=== PATIENT | female | born 1965 | race Caucasian/White ===

== ENCOUNTER → 2020-04-19 14:46 | Outpatient (BNVA) | payer MEDICARE, MEDICAID, SELFPAY | PROVIDERS: PCP Internal Medicine; Referring Provider Internal Medicine; Visit Provider Urology | DX: N30.10 Interstitial cystitis (chronic) without hematuria (principal) | CPT/HCPCS: 99212 ==

== ENCOUNTER 2020-04-30 06:26 | Day surgery (SDC) | payer MEDICARE, MEDICAID, SELFPAY ==
[2020-04-25 12:16] VITALS: BMI 15.7
[2020-04-25 12:50] VITALS: BMI 17.3
[2020-04-30 07:05] VITALS: BP 100/51; PULSE 64; RESP 20; TEMP 36.3; O2SAT 95
--- NOTE | 2020-04-30 07:27 | MHC.SHP ---
Pre-Procedural Eval Section B Chief Complaint: cystitis without hematuria Details of Present Illness: Interstital Cystitis Relevant Family History (Specify if Yes): No Relevant Social History: None Present Medications: see Short Stay Collaborative assessment Medical History: Significant History History of Previous Operations: Relevant previous surgery/procedure and date(s) Allergies: Allergies Allergy/AdvReac Type Severity Reaction Status Date / Time amoxicillin [From AUGMENTIN] Allergy Severe SEVERE Unverified 04/25/20 12:21 DIARRHEA clavulanic acid Allergy Severe SEVERE Unverified 04/25/20 12:21 [From AUGMENTIN] DIARRHEA Gzjunpu-Emv-Dsf Reductase Allergy Intermediate muscle Unverified 04/25/20 12:21 Inhibitor aches, [[id number]-BRG REDUCTASE cramps INHIBITOR] acetaminophen [ACETAMINOPHEN] AdvReac Severe GI upset. Unverified 02/29/20 14:52 Pt confirmed NOT allergic to oxycodone Review of Systems Sugical H&P ROS: Negative: Constitution, Cardiovascular, Respiratory, Neurological, Psychiatric, Hem-Onc, Allergic/Immunologic, Gastrointestinal, Genitourinary, Musculoskeletal, Integumentary, Endocrine and Eyes/Ears/Nose/Throat Exam Surgical H&P Exam: Normal: HEENT, Normal: Heart, Normal: Lungs, Normal: Extremities, Normal: Abdomen, Normal: Skin and Normal: Neurological Plan Diagnosis/Plan: Unchanged Patient has been examined and remains a candidate for the planned procedure
[2020-04-30] MEDS: levoFLOXacin 500 MG TABLET PO (07:38)
--- NOTE | 2020-04-30 08:51 | PM.OP ---
Brief Operative Note Date of Service: 04/30/20 Pre-op diagnosis: Interstitial cystitis Post-op diagnosis: same Procedure: hydrodistention Implants: known Surgeon: Mk Cornelius MD Anesthesia: GLMA Estimated blood loss (mL): 0 Pathology: none sent Condition: stable Disposition: same day
--- NOTE | 2020-04-30 08:52 | P.OP_ITS ---
Operative Note Operative Note Date of Service: 04/30/20 Narrative: PreOperative Diagnosis: interstitial cystitis Post Operative Diagnosis: interstitial cystitis Procedure: cystoscopy with hydrodistention Surgeon: Dr Mk Cornelius Anesthesia: general anesthetic Indications for procedure: this is a 55-year-old female. Known interstitial cystitis. Receives hydrodistention on a recurring basis. Is here for hydrodistention today. Procedure: After informed consent was verified the patient was brought to the operating room and placed in a supine position. anesthesia was administered per protocol. Patient was placed in modified dorsal lithotomy position and prepped and draped in sterile fashion. Safety pause time-out was performed. Antibiotics confirmed. Twenty-one Occitan cystoscope inserted per urethra. The bladder was filled. Was held and pressure with bag at 1 m for 3 minutes. The bladder was then emptied. The 2nd fill was performed. She was noted to have volume of 900 cc under anesthesia. Her bladder displayed marked collagen stiffness. There were also glomerulations and microscopic hematuria at completion of initial fill. After 2nd filling the bladder had local anesthetic placed to help with postprocedure pain relief She tolerated procedure well was extubated in the operating room transferred in stable condition the recovery area Pathology: None Drains: None
[2020-04-30 09:05] VITALS: BP 100/52; PULSE 64; RESP 14; TEMP 36.7; O2SAT 99
[2020-04-30 09:10] VITALS: BP 100/54; PULSE 66; RESP 16; O2SAT 97
[2020-04-30 09:15] VITALS: BP 95/49; PULSE 70; RESP 16; O2SAT 97
[2020-04-30 09:20] VITALS: BP 99/54; PULSE 71; RESP 16; O2SAT 97
[2020-04-30] MEDS: oxyCODONE HCl Immed Release 5 MG TABLET PO (09:28)
[2020-04-30] MEDS: Phenazopyridine HCL 100 MG TABLET PO (09:29)
[2020-04-30 09:35] VITALS: BP 111/68; PULSE 68; RESP 16; O2SAT 99
--- NOTE | 2020-04-30 10:47 | HO.POSTANES ---
Post Anesthesia Evaluation Post Anesthesia Evaluation Vital Signs: Vital Signs Temp Pulse Resp BP Pulse Ox 04/30/20 09:35 68 16 111/68 99 04/30/20 09:20 71 16 99/54 L 97 04/30/20 09:15 70 16 95/49 L 97 04/30/20 09:10 66 16 100/54 L 97 04/30/20 09:05 98.0 F 64 14 100/52 L 99 04/30/20 07:05 97.4 F 64 20 100/51 L 95 Anesthesia: General Mental Status: Awake Pain Control: Satisfactory Nausea/Vomiting: None Hydration: Adequate Anesthesia-Related Issues: No Anes. Related Issues
== END 2020-04-30 10:25 | disposition home or self-care (01) ==
PROVIDERS: PCP Internal Medicine; Visit Provider Urology
PROC: 0T7B7ZZ Dilation of Bladder, Via Natural or Artificial Opening (ICD-10-PCS; CPT 52260; principal; 2020-04-30 07:50)
DX: N30.10 Interstitial cystitis (chronic) without hematuria (principal); J45.909 Unspecified asthma, uncomplicated; F32.9 Major depressive disorder, single episode, unspecified; Z88.1 Allergy status to other antibiotic agents; Z88.8 Allergy status to other drugs, medicaments and biological substances
CPT/HCPCS: 52260; J1100; J2250; J2405; J3010

== ENCOUNTER → 2020-05-31 15:37 | Outpatient (BNVA) | payer MEDICARE, SELFPAY | PROVIDERS: PCP Emergency Medicine; Visit Provider Urology | DX: N30.10 Interstitial cystitis (chronic) without hematuria (principal) | CPT/HCPCS: Q3014 ==

== ENCOUNTER 2020-06-03 12:43 | Day surgery (SDC) | payer MEDICARE, MEDICAID, SELFPAY ==
[2020-05-31 13:51] VITALS: BMI 19.1
--- NOTE | 2020-05-31 14:34 | P.CONAN_ITS ---
Documented by User: Maureen Deb 05/31/20 14:36 HPI - Anesthesia Eval Consult details Narrative: 55yo F for Cystoscopy Hydrodistention of Bladder Last cysto, hydrodistention 04/25/20 with GA-LMA4 PMFSH Past Medical History Medical History (Updated 04/25/20 @ 12:58 by Matilda Aponte) Asthma Back pain Depression Elevated cholesterol History of anxiety History of gastrostomy tube placement Hx of cystitis Hx of ulcerative colitis Lab test negative for COVID-19 virus Surgical History Surgical History History of bladder surgery Social History Social History Are you a primary insurance healthcare consultant to a significant other at home: No Do you presently have visiting nurse or other home services: No Smoking Status: Unknown if ever smoked Use of substances other than those prescribed or required for medical reasons: No Advance Directives: No Advance Directives Information Provided: Yes Recently lost weight without trying: No Meds Allergies Allergy/AdvReac Type Severity Reaction Status Date / Time amoxicillin [From AUGMENTIN] Allergy Severe SEVERE Verified 06/03/20 12:57 DIARRHEA clavulanic acid Allergy Severe SEVERE Verified 06/03/20 12:57 [From AUGMENTIN] DIARRHEA oxycodone [From Percocet] Allergy Severe Diarrhea Verified 06/03/20 12:57 Izomybd-Eqq-Npz Reductase Allergy Intermediate muscle Verified 06/03/20 12:57 Inhibitor aches, [[id number]-[id number]-LZB REDUCTASE cramps INHIBITOR] acetaminophen [ACETAMINOPHEN] AdvReac Severe GI upset. Verified 06/03/20 12:57 Pt confirmed NOT allergic to oxycodone Home Medications Medication Instructions Recorded Confirmed Type Elmiron 100 mg PO QID 04/25/20 04/30/20 History albuterol sulfate [ProAir HFA] 2 puff INHALATION Q4-6H PRN 04/25/20 04/25/20 History carisoprodol 350 mg PO BID 04/25/20 04/25/20 History clonazepam 0.5 mg PO BID 04/25/20 04/30/20 History clonazepam 1 mg PO BEDTIME 04/25/20 04/25/20 History ezetimibe 10 mg PO QAM 04/25/20 04/25/20 History fluticasone propionate 1 puff INHALATION BID 04/25/20 04/25/20 History folic acid 1 mg PO DAILY 04/25/20 04/25/20 History loratadine 10 mg PO DAILY 04/25/20 04/25/20 History montelukast 10 mg PO QAM 04/25/20 04/30/20 History olanzapine 7.5 mg PO BEDTIME 04/25/20 04/25/20 History ondansetron HCl 8 mg PO QAM 04/25/20 04/25/20 History sertraline 150 mg PO QAM 04/25/20 04/30/20 History trazodone 300 mg PO BEDTIME 04/25/20 04/25/20 History Exam Exam Date and Time: May 31, 2020 1434 Height,Weight and Vital Signs: Height 5 ft 5 in Weight 52.163 kg Assessment and Plan Assessment Anesthesia Assessment: Chart Reviewed Documented by User: Stella Anderson 06/03/20 14:41 [facility] Past Medical History Medical History (Updated 04/25/20 @ 12:58 by Matilda Aponte) Asthma Back pain Depression Elevated cholesterol History of anxiety History of gastrostomy tube placement Hx of cystitis Hx of ulcerative colitis Lab test negative for COVID-19 virus Surgical History Surgical History History of bladder surgery Social History Social History Are you a primary insurance healthcare consultant to a significant other at home: No Do you presently have visiting nurse or other home services: No Smoking Status: Unknown if ever smoked Use of substances other than those prescribed or required for medical reasons: No Advance Directives: No Advance Directives Information Provided: Yes Recently lost weight without trying: No Meds Allergies Allergy/AdvReac Type Severity Reaction Status Date / Time amoxicillin [From AUGMENTIN] Allergy Severe SEVERE Verified 06/03/20 12:57 DIARRHEA clavulanic acid Allergy Severe SEVERE Verified 06/03/20 12:57 [From AUGMENTIN] DIARRHEA oxycodone [From Percocet] Allergy Severe Diarrhea Verified 06/03/20 12:57 Ymimhda-Taw-Ppv Reductase Allergy Intermediate muscle Verified 06/03/20 12:57 Inhibitor aches, [[id number] REDUCTASE cramps INHIBITOR] acetaminophen [ACETAMINOPHEN] AdvReac Severe GI upset. Verified 06/03/20 12:57 Pt confirmed NOT allergic to oxycodone Home Medications Medication Instructions Recorded Confirmed Type Elmiron 100 mg PO QID 04/25/20 04/30/20 History albuterol sulfate [ProAir HFA] 2 puff INHALATION Q4-6H PRN 04/25/20 04/25/20 History carisoprodol 350 mg PO BID 04/25/20 04/25/20 History clonazepam 0.5 mg PO BID 04/25/20 04/30/20 History clonazepam 1 mg PO BEDTIME 04/25/20 04/25/20 History ezetimibe 10 mg PO QAM 04/25/20 04/25/20 History fluticasone propionate 1 puff INHALATION BID 04/25/20 04/25/20 History folic acid 1 mg PO DAILY 04/25/20 04/25/20 History loratadine 10 mg PO DAILY 04/25/20 04/25/20 History montelukast 10 mg PO QAM 04/25/20 04/30/20 History olanzapine 7.5 mg PO BEDTIME 04/25/20 04/25/20 History ondansetron HCl 8 mg PO QAM 04/25/20 04/25/20 History sertraline 150 mg PO QAM 04/25/20 04/30/20 History trazodone 300 mg PO BEDTIME 04/25/20 04/25/20 History Exam Airway Mallampati Class: II (Missing multiple teth laterally) TM Dist: >3cm Neck ROM: Full Heart: RRr Lungs: CTA BL Assessment and Plan Assessment Anesthesia Assessment: Anesthesia Plan Discussed and Chart Reviewed Final Anesthetic Review NPO: Yes (Sip of water with medicines) ASA Class: II Final Preanesthetic Review: Meds/Allgs Chart Reviewed and Consent Obtained/Reviewed Patient Risk: Intermediate Procedure Risk: Intermediate Anesthetic Plan Anesthetic Plan: GA Disposition: Standard PACU
[2020-06-03] VITALS (7 sets, daily range): BP systolic 103–131; BP diastolic 41–65; PULSE 71–96; RESP 16–17; TEMP 36.1–36.2; O2SAT 98–100
[2020-06-03] MEDS: levoFLOXacin 500 MG TABLET PO (13:00)
[2020-06-03] MEDS: Lactated Ringers 1,000 ML 100 ML IVCONT (13:17)
--- NOTE | 2020-06-03 15:54 | MHC.SHP ---
Pre-Procedural Eval Section A The patient is an INPATIENT: No Changes since office visit: No Cold of Flu in the past 2 weeks, No New Medical Problems, No Changes in Medication and No Patient answered all questions The History & Physical has been completed within 30 days and I have reviewed it.: Yes Section B Chief Complaint: interstitial cystitis without hematuria Allergies: Allergies Allergy/AdvReac Type Severity Reaction Status Date / Time amoxicillin [From AUGMENTIN] Allergy Severe SEVERE Verified 06/03/20 12:57 DIARRHEA clavulanic acid Allergy Severe SEVERE Verified 06/03/20 12:57 [From AUGMENTIN] DIARRHEA oxycodone [From Percocet] Allergy Severe Diarrhea Verified 06/03/20 12:57 Rhnvglq-Asq-Qva Reductase Allergy Intermediate muscle Verified 06/03/20 12:57 Inhibitor aches, [[id number]-[id number] REDUCTASE cramps INHIBITOR] acetaminophen [ACETAMINOPHEN] AdvReac Severe GI upset. Verified 06/03/20 12:57 Pt confirmed NOT allergic to oxycodone Plan Diagnosis/Plan: Unchanged I have reviewed the history and physical and performed a pertinent physical examination on my patient. No changes have occurred unless specified. Cystoscopy, hydrodistention
--- NOTE | 2020-06-03 16:42 | PM.OP ---
Brief Operative Note Date of Service: 06/03/20 Pre-op diagnosis: Interstitial cystitis Post-op diagnosis: same Procedure: Hydrodistention of bladder Surgeon: Mk Cornelius MD Anesthesia: GLMA Estimated blood loss (mL): 0 Pathology: none sent Condition: stable Disposition: same day
--- NOTE | 2020-06-03 16:48 | P.OP_ITS ---
Operative Note Operative Note Date of Service: 06/03/20 Narrative: PreOperative Diagnosis: Interstitial cystitis Post Operative Diagnosis: Interstitial cystitis Procedure: Hydrodistention of bladder Surgeon: Dr Mk Cornelius Anesthesia: General anesthetic Indications for procedure: Long-term interstitial cystitis patient. Has hydrodistention performed on intermittent basis. Requested hydrodistention last week. Has been progressive pain. Was offered rescue solutions. In the past hydro distentions she states have worked for her and she would like this to occur. Procedure: After informed consent was verified the patient was brought to the operating room and placed in a supine position. Anesthesia was performed per protocol. The patient was placed in a modified dorsal lithotomy position and prepped draped sterile fashion. Safety pause time-out performed. Antibiotics being given. The bladder was emptied with a RobNel catheter. A solution of lidocaine jelly, lidocaine 2% and bupivacaine was placed into the bladder and dwelled for 3 minutes in order to assist with postprocedure pain. The 22 Macedonian cystoscope was placed in the bladder was filled. A finger was used to help keep closure on the bladder neck. The back was at approximately 1 m above patient. The bladder was held for 3 minutes. The bladder was emptied for a total of 950 cc. A 2nd filling was performed. This was again held for 3 minutes. The bladder was emptied for a total of approximately a 1000 cc. The remainder of the lidocaine jelly, lidocaine 2% bupivacaine solution was placed into the bladder. A belladonna and opiate suppository was also placed for postprocedure pain. She was extubated in the operating room transferred in stable condition to the recovery area Pathology: None Drains: None
[2020-06-03] MEDS: oxyCODONE HCl Immed Release 5 MG TABLET 10 MG PO (16:59)
== END 2020-06-03 17:50 | disposition home or self-care (01) ==
PROVIDERS: PCP Internal Medicine; Visit Provider Urology
PROC: 0T7B7ZZ Dilation of Bladder, Via Natural or Artificial Opening (ICD-10-PCS; CPT 52260; principal; 2020-06-03 14:40)
DX: N30.10 Interstitial cystitis (chronic) without hematuria (principal); J45.909 Unspecified asthma, uncomplicated; F32.9 Major depressive disorder, single episode, unspecified; Z79.899 Other long term (current) drug therapy; Z88.0 Allergy status to penicillin; Z88.8 Allergy status to other drugs, medicaments and biological substances
CPT/HCPCS: 52260; J1100; J2250; J2405; J3010

== ENCOUNTER → 2020-06-21 13:18 | Outpatient (BNVA) | payer MEDICARE, SELFPAY | PROVIDERS: PCP Internal Medicine; Visit Provider Urology | DX: Z76.89 Persons encountering health services in other specified circumstances (principal) ==

== ENCOUNTER 2020-07-22 08:55 | Day surgery (SDC) | payer MEDICARE, MEDICAID, SELFPAY ==
--- NOTE | 2020-07-18 12:29 | HO.ANESPROP2 ---
Documented by User: Maureen Deb 07/18/20 12:31 HPI - Anesthesia Eval Consult details Narrative: 55yo F for Cystoscopy Hydrodistention of Bladder last cysto-hydrodistention with GA-LMA 3 06/03/20 Chronic opioids PMFSH Past Medical History Medical History Asthma Back pain Depression Elevated cholesterol History of anxiety History of gastrostomy tube placement Hx of cystitis Hx of ulcerative colitis Lab test negative for COVID-19 virus Surgical History Surgical History History of bladder surgery Social History Social History Smoking Status: Current every day smoker Cigarettes Per Day: 6 Years Smoked: 20 Smoked in Last 30 Days: Yes Patient Interested in Nicotine Replacement: No Use of substances other than those prescribed or required for medical reasons: No Advance Directives: No Advance Directives Information Provided: Yes Recently lost weight without trying: No Meds Allergies Allergy/AdvReac Type Severity Reaction Status Date / Time amoxicillin [From AUGMENTIN] Allergy Severe SEVERE Verified 06/03/20 12:57 DIARRHEA clavulanic acid Allergy Severe SEVERE Verified 06/03/20 12:57 [From AUGMENTIN] DIARRHEA oxycodone [From Percocet] Allergy Severe Diarrhea Verified 06/03/20 12:57 Makukmr-Tld-Guk Reductase Allergy Intermediate muscle Verified 06/03/20 12:57 Inhibitor aches, [[id number]-ZTY REDUCTASE cramps INHIBITOR] acetaminophen [ACETAMINOPHEN] AdvReac Severe GI upset. Verified 06/03/20 12:57 Pt confirmed NOT allergic to oxycodone Home Medications Medication Instructions Recorded Confirmed Type Elmiron 100 mg PO QID 04/25/20 04/30/20 History albuterol sulfate [ProAir HFA] 2 puff INHALATION Q4-6H PRN 04/25/20 04/25/20 History carisoprodol 350 mg PO BID 04/25/20 04/25/20 History clonazepam 0.5 mg PO BID 04/25/20 04/30/20 History clonazepam 1 mg PO BEDTIME 04/25/20 04/25/20 History ezetimibe 10 mg PO QAM 04/25/20 04/25/20 History fluticasone propionate 1 puff INHALATION BID 04/25/20 04/25/20 History folic acid 1 mg PO DAILY 04/25/20 04/25/20 History loratadine 10 mg PO DAILY 04/25/20 04/25/20 History montelukast 10 mg PO QAM 04/25/20 04/30/20 History olanzapine 7.5 mg PO BEDTIME 04/25/20 04/25/20 History ondansetron HCl 8 mg PO QAM 04/25/20 04/25/20 History sertraline 150 mg PO QAM 04/25/20 04/30/20 History trazodone 300 mg PO BEDTIME 04/25/20 04/25/20 History adalimumab 40 mg/0.4 mL mg SUBCUT 06/21/20 History subcutaneous pen kit olanzapine 2.5 mg tablet mg PO 06/21/20 History olanzapine 5 mg tablet mg PO 06/21/20 History Exam Exam Date and Time: July 18, 2020 1229 Assessment and Plan Assessment Anesthesia Assessment: Chart Reviewed Documented by User: Betsy Machado 07/22/20 10:20 PMFSH Past Medical History Medical History Asthma Back pain Depression Elevated cholesterol History of anxiety History of gastrostomy tube placement Hx of cystitis Hx of ulcerative colitis Lab test negative for COVID-19 virus Surgical History Surgical History History of bladder surgery Social History Social History Smoking Status: Current every day smoker Cigarettes Per Day: 6 Years Smoked: 20 Smoked in Last 30 Days: Yes Patient Interested in Nicotine Replacement: No Use of substances other than those prescribed or required for medical reasons: No Advance Directives: No Advance Directives Information Provided: Yes Recently lost weight without trying: No Meds Allergies Allergy/AdvReac Type Severity Reaction Status Date / Time amoxicillin [From AUGMENTIN] Allergy Severe SEVERE Verified 06/03/20 12:57 DIARRHEA clavulanic acid Allergy Severe SEVERE Verified 06/03/20 12:57 [From AUGMENTIN] DIARRHEA oxycodone [From Percocet] Allergy Severe Diarrhea Verified 06/03/20 12:57 Deisnif-Pij-Plt Reductase Allergy Intermediate muscle Verified 06/03/20 12:57 Inhibitor aches, [REMYNWJ-OXO-YRE REDUCTASE cramps INHIBITOR] acetaminophen [ACETAMINOPHEN] AdvReac Severe GI upset. Verified 06/03/20 12:57 Pt confirmed NOT allergic to oxycodone Home Medications Medication Instructions Recorded Confirmed Type Elmiron 100 mg PO QID 04/25/20 04/30/20 History albuterol sulfate [ProAir HFA] 2 puff INHALATION Q4-6H PRN 04/25/20 04/25/20 History carisoprodol 350 mg PO BID 04/25/20 04/25/20 History clonazepam 0.5 mg PO BID 04/25/20 04/30/20 History clonazepam 1 mg PO BEDTIME 04/25/20 04/25/20 History ezetimibe 10 mg PO QAM 04/25/20 04/25/20 History fluticasone propionate 1 puff INHALATION BID 04/25/20 04/25/20 History folic acid 1 mg PO DAILY 04/25/20 04/25/20 History loratadine 10 mg PO DAILY 04/25/20 04/25/20 History montelukast 10 mg PO QAM 04/25/20 04/30/20 History olanzapine 7.5 mg PO BEDTIME 04/25/20 04/25/20 History ondansetron HCl 8 mg PO QAM 04/25/20 04/25/20 History sertraline 150 mg PO QAM 04/25/20 04/30/20 History trazodone 300 mg PO BEDTIME 04/25/20 04/25/20 History adalimumab 40 mg/0.4 mL mg SUBCUT 06/21/20 History subcutaneous pen kit olanzapine 2.5 mg tablet mg PO 06/21/20 History olanzapine 5 mg tablet mg PO 06/21/20 History Exam Airway Mallampati Class: II TM Dist: >3cm Neck ROM: Limited Assessment and Plan Assessment Anesthesia Assessment: Anesthesia Plan Discussed and Chart Reviewed Final Anesthetic Review NPO: Yes ASA Class: II Final Preanesthetic Review: No Changes in Pt Med Stat, Meds/Allgs Chart Reviewed, Consent Obtained/Reviewed and Anes Risks/Benef Reviewed Patient Risk: Low Procedure Risk: Low Assessment/Block/Sedation in SS: Assess/Block/Sedation-SS Anesthetic Plan Anesthetic Plan: MAC: Disposition: Standard PACU
[2020-07-22] MEDS: levoFLOXacin 500 MG TABLET PO (09:00)
[2020-07-22 09:41] VITALS: BP 104/56; PULSE 73; RESP 18; TEMP 36.9; O2SAT 99; BMI 21.6
[2020-07-22] MEDS: Lactated Ringers 1,000 ML 100 ML IVCONT (09:48)
--- NOTE | 2020-07-22 10:00 | P.HPSUR_ITS ---
Pre-Procedural Eval Section B Chief Complaint: cystitis Details of Present Illness: Interstitial cystitis - here for regular h ydrodistention Relevant Family History (Specify if Yes): No Relevant Social History: None Present Medications: see Short Stay Collaborative assessment Medical History: No relevant PMH History of Previous Operations: Relevant previous surgery/procedure and date(s) Allergies: Allergies Allergy/AdvReac Type Severity Reaction Status Date / Time amoxicillin [From AUGMENTIN] Allergy Severe SEVERE Verified 06/03/20 12:57 DIARRHEA clavulanic acid Allergy Severe SEVERE Verified 06/03/20 12:57 [From AUGMENTIN] DIARRHEA oxycodone [From Percocet] Allergy Severe Diarrhea Verified 06/03/20 12:57 Drcqdrj-Ksx-Rso Reductase Allergy Intermediate muscle Verified 06/03/20 12:57 Inhibitor aches, [[id number]-ZFJ-VZY REDUCTASE cramps INHIBITOR] acetaminophen [ACETAMINOPHEN] AdvReac Severe GI upset. Verified 06/03/20 12:57 Pt confirmed NOT allergic to oxycodone Review of Systems Sugical H&P ROS: Negative: Constitution, Cardiovascular, Respiratory, Neurological, Psychiatric, Hem-Onc, Allergic/Immunologic, Gastrointestinal, Genitourinary, Musculoskeletal, Integumentary, Endocrine and Eyes/Ears/Nose/Throat Exam Surgical H&P Exam: Normal: HEENT, Normal: Heart, Normal: Lungs, Normal: Extremities, Normal: Abdomen, Normal: Skin and Normal: Neurological Plan Diagnosis/Plan: Unchanged I have reviewed the history and physical and performed a pertinent physical examination on my patient. No changes have occurred unless specified. Cystoscopy with hydrodistention
[2020-07-22 10:46] VITALS: BP 98/55; PULSE 72; RESP 16; TEMP 36.5; O2SAT 98
[2020-07-22 11:00] VITALS: BP 116/63; PULSE 68; RESP 16; O2SAT 98
--- NOTE | 2020-07-22 11:12 | PM.OP ---
Brief Operative Note Date of Service: 07/22/20 Pre-op diagnosis: Interstitial cystitis Post-op diagnosis: same Procedure: Cystoscopy and Hydrodistention Surgeon: Mk Cornelius MD Anesthesia: MAC Estimated blood loss (mL): 0 Pathology: none sent Condition: stable Disposition: same day
--- NOTE | 2020-07-22 11:13 | W.PM.OPN ---
Operative Note Operative Note Date of Service: 07/22/20 Narrative: PreOperative Diagnosis: Interstitial cystitis Post Operative Diagnosis: Interstitial cystitis Procedure: Cystoscopy with hydrodistention Surgeon: Dr Mk Cornelius Anesthesia: Heavy sedation Indications for procedure: Longstanding interstitial cystitis Has good response to hydrodistention Presents today for repeat hydrodistention Procedure: After informed consent was verified the patient was brought to the operating room and placed in a supine position. anesthesia was administered per protocol. Her bladder was emptied with a straight catheter. 10 cc of lidocaine jelly with 10 cc of 0.5% bupivacaine were instilled for postprocedure pain management. She was prepped and draped in sterile fashion. Safety pause time-out was performed. Twenty-two Maltese cystoscope inserted. Bladder was examined. Bladder was filled and allowed to remain filled under pressure for 3-4 minutes. Total amount in 1st filling 900 cc. Total amount on 2nd filling 1000 cc. Her bladder was emptied. A 2nd administration of lidocaine jelly in bupivacaine was placed inside of bladder for postprocedure pain management. She tolerated procedure well was transferred in stable condition to the recovery area Pathology: Drains:
[2020-07-22 11:15] VITALS: BP 114/57; PULSE 66; RESP 16; O2SAT 98
[2020-07-22] MEDS: Phenazopyridine HCL 100 MG TABLET PO (11:20)
[2020-07-22] MEDS: oxyCODONE HCl Immed Release 5 MG TABLET 10 MG PO (11:20)
[2020-07-22 11:30] VITALS: BP 113/53; PULSE 68; RESP 16; TEMP 36.5; O2SAT 99
--- NOTE | 2020-07-22 12:34 | HO.POSTANES ---
Post Anesthesia Evaluation Post Anesthesia Evaluation Vital Signs: Vital Signs Temp Pulse Resp BP Pulse Ox 07/22/20 11:30 97.7 F 68 16 113/53 L 99 07/22/20 11:15 66 16 114/57 L 98 07/22/20 11:00 68 16 116/63 98 07/22/20 10:46 97.7 F 72 16 98/55 L 98 07/22/20 09:41 98.4 F 73 18 104/56 L 99 Anesthesia: Monitored Mental Status: Awake Pain Control: Satisfactory Nausea/Vomiting: None Hydration: Adequate Anesthesia-Related Issues: No Anes. Related Issues
== END 2020-07-22 12:10 | disposition home or self-care (01) ==
PROVIDERS: PCP Internal Medicine; Visit Provider Urology
PROC: 0T7B7ZZ Dilation of Bladder, Via Natural or Artificial Opening (ICD-10-PCS; CPT 52260; principal; 2020-07-22 10:20)
DX: N30.10 Interstitial cystitis (chronic) without hematuria (principal); Z88.0 Allergy status to penicillin; Z88.5 Allergy status to narcotic agent; Z88.8 Allergy status to other drugs, medicaments and biological substances
CPT/HCPCS: 52260; J2405; J3010

== ENCOUNTER 2020-10-08 12:02 | Emergency (ER) | payer OTHER, SELFPAY ==
[2020-10-08 12:07] VITALS: BP 122/64; PULSE 87; RESP 16; TEMP 36.6; O2SAT 98; BMI 27.4
[2020-10-08 13:00] LABS: MANUAL DIFF FLAG NO
[2020-10-08 13:08] LABS: Basophils Percent Auto 0.4 % (0-2); Eosinophils Absolute Auto 0.1 X10*3/uL (0.0-0.4); Eosinophils Percent Auto 0.9 % (0-4); Glucose Urine UA NEG (NEG); Hematocrit 36.3 % (37-47); Hemoglobin 11.5 g/dl (12.0-16.0); Imm Gran Abs Auto 0.02 X10*3/uL (0.00-0.03); Imm Gran Pct Auto 0.3 % (0.0-0.4); Leukocyte Esterase Urine TRACE (NEG); Lymphocytes Percent Auto 29.5 % (20-40); Mean Corpuscular HGB Conc 31.7 g/dl (31.0-35.0); Mean Corpuscular Hemoglobin 27.6 pg (27.0-33.0); Mean Corpuscular Volume 87.1 fL (80-98); Mean Platelet Volume 9.2 fL (9.4-12.3); Monocytes Absolute Auto 0.7 X10*3/uL (0.1-1.2); Monocytes Percent Auto 10.9 % (2-11); Neutrophils Absolute Auto 3.9 X10*3/uL (2.0-8.3); Nitrite Urine POS (NEG); PH 5.5 (5.0-8.0); Platelet Count 276 X10*3/uL (160-400); Red Blood Count 4.17 X10*6/uL (4.20-5.50); Red Cell Distribution Width 18.8 % (11.0-16.0); UACC Culture Trigger YES; Urine Blood NEG (NEG); Urine Ketones NEG (NEG); Urine Protein NEG (NEG-TRACE); White Blood Count 6.8 X10*3/uL (4.8-10.8)
[2020-10-08 13:10] LABS: Appearance Urine HAZY; Color Urine YELLOW
[2020-10-08 13:29] LABS: Anion Gap 12 (12-20); Blood Urea Nitrogen 12 mg/dL (9-16); Calcium 9.4 mg/dL (8.4-10.2); Carbon Dioxide 30 mmol/L (22-29); Chloride 100 mmol/L (96-108); Creatinine Clr Calc Pharmacy 77.5; Estimated Glomerular Filt Rate > 60; Glucose Random 75 mg/dL (60-115); Potassium 4.3 mmol/L (3.3-5.1); Sodium 138 mmol/L (135-145)
[2020-10-08 13:34] LABS: Bacteria Urine 1+ /LPF; RBC Urine 0 /HPF (0); Squamous Epithelial Cell Urine 2+ /LPF; WBC Urine 0-2 /HPF (0-4)
--- NOTE | 2020-10-08 14:00 | ED_ITS ---
HPI - General Adult General Chief complaint: Abdominal Pain Stated complaint: Bladder pain Time Seen by Provider: 10/08/20 12:32 History of Present Illness HPI narrative: Patient with long history of interstitial cystitis complains of renewed symptoms of irritable bladder, same as many prior episodes and tried to call her urologist to see if she could schedule a dilatation procedure, which she had done 2 months ago and has had done many times before. She says the procedure brought relief which lasted until recently but now the symptoms of frequent voiding and pain in the bladder area and discomfort with urination are back No fever no chills no abdominal pain no vomiting no flank pain no back pain Related Data Home Medications Medication Instructions Recorded Confirmed Elmiron 100 mg PO QID 04/25/20 04/30/20 albuterol sulfate [ProAir HFA] 2 puff INHALATION Q4-6H PRN 04/25/20 04/25/20 carisoprodol 350 mg PO BID 04/25/20 04/25/20 clonazepam 0.5 mg PO BID 04/25/20 04/30/20 clonazepam 1 mg PO BEDTIME 04/25/20 04/25/20 ezetimibe 10 mg PO QAM 04/25/20 04/25/20 fluticasone propionate 1 puff INHALATION BID 04/25/20 04/25/20 folic acid 1 mg PO DAILY 04/25/20 04/25/20 loratadine 10 mg PO DAILY 04/25/20 04/25/20 montelukast 10 mg PO QAM 04/25/20 04/30/20 olanzapine 7.5 mg PO BEDTIME 04/25/20 04/25/20 ondansetron HCl 8 mg PO QAM 04/25/20 04/25/20 sertraline 150 mg PO QAM 04/25/20 04/30/20 trazodone 300 mg PO BEDTIME 04/25/20 04/25/20 adalimumab 40 mg/0.4 mL mg SUBCUT 06/21/20 subcutaneous pen kit olanzapine 2.5 mg tablet mg PO 06/21/20 olanzapine 5 mg tablet mg PO 06/21/20 Previous Rx's Medication Instructions Recorded oxycodone 5 mg PO Q8H PRN #20 cap 04/30/20 diazepam 10 mg PO BEDTIME PRN 14 Days #14 12/21/20 tab oxycodone 5 mg PO Q8H PRN #20 tab 06/03/20 pentosan polysulfate sodium 100 mg 200 mg PO BID 30 Days #120 cap 06/26/20 capsule diazepam 10 mg PO BEDTIME PRN #10 tab 07/22/20 oxycodone 5 mg PO Q8H PRN #20 tab 07/22/20 phenazopyridine [Pyridium] 100 mg PO TID PRN 4 Days #12 tab 07/22/20 diazepam 10 mg tablet 10 mg PO BEDTIME PRN #7 tab 09/17/20 diazepam 10 mg tablet See Rx Instructions .ROUTE BEDTIME 10/08/20 30 Days #20 tab lorazepam [Ativan] 1 mg PO BID PRN #7 tab 10/08/20 morphine 15 mg PO Q6H PRN #10 tab 10/08/20 nitrofurantoin monohyd/m-cryst 100 mg PO Q12H 5 Days #10 cap 10/08/20 [Macrobid] nitrofurantoin monohyd/m-cryst 100 mg PO Q12H 5 Days #10 cap 10/08/20 [Macrobid] Allergies Allergy/AdvReac Type Severity Reaction Status Date / Time amoxicillin [From AUGMENTIN] Allergy Severe SEVERE Verified 06/03/20 12:57 DIARRHEA clavulanic acid Allergy Severe SEVERE Verified 06/03/20 12:57 [From AUGMENTIN] DIARRHEA oxycodone [From Percocet] Allergy Severe Diarrhea Verified 06/03/20 12:57 Ekcrgyc-Hxr-Kor Reductase Allergy Intermediate muscle Verified 06/03/20 12:57 Inhibitor aches, [[id number]-POM-AQO REDUCTASE cramps INHIBITOR] acetaminophen [ACETAMINOPHEN] AdvReac Severe GI upset. Verified 06/03/20 12:57 Pt confirmed NOT allergic to oxycodone Review of Systems Review of Systems: Positive for dysuria Negative no fever no chills no dizziness no weakness no fainting no dizziness no chest pain no shortness of breath no abdominal pain no flank pain no nausea or vomiting no rash Yes all other systems are reviewed and are negative PMFSH Past Medical History Source: nursing notes reviewed Medical History Asthma Back pain Depression Elevated cholesterol History of anxiety History of gastrostomy tube placement Hx of cystitis Hx of ulcerative colitis Lab test negative for COVID-19 virus Surgical History History of bladder surgery Social History Social History Smoking Status: Current every day smoker Cigarettes Per Day: 6 Years Smoked: 20 Advance Directives: No Advance Directives Information Provided: No Physical Exam Vital Signs: Vital Signs: Last Vital Signs Temp 98.6 F 10/08/20 14:58 Pulse 73 10/08/20 14:58 Resp 18 10/08/20 14:58 BP 107/63 10/08/20 14:58 Pulse Ox 100 10/08/20 14:58 Body Mass Index 27.4 General appearance is no acute distress, comfortable and cooperative The pharynx is clear, mucous membranes moist Neck is supple The chest is clear bilaterally, no respiratory distress The abdomen is soft and nontender no rebound no guarding There is no CVA tenderness Skin no rashes Extremities no edema Neuro no focal motor or sensory deficit Course Course Course Narrative: I texted urologist Dr. donald who knows patient well and said he thinks it is too soon for another procedure but he can follow with the patient UA showed a contaminated sample positive for nitrates, I offered to redo the specimen with better cleaning to get a more reliable specimen, patient did not want to do that now so she is given a prescription for antibiotic She is well-appearing no evidence of pyelonephritis or sepsis or any abdominal surgical emergency Repeat exam of the abdomen continues to be and nontender without rebound or guarding exam and patient is discharged with analgesics and will follow with urologist Medical Decision Making Lab Data Lab results reviewed: Yes I reviewed the patient's lab results. Result diagrams: 10/08/20 12:55 10/08/20 12:56 Labs: Lab Results 10/08/20 10/08/20 10/08/20 Range/Units 12:55 12:55 12:55 WBC 6.8 (4.8-10.8) X10*3/uL RBC 4.17 L (4.20-5.50) X10*6/uL Hgb 11.5 L (12.0-16.0) g/dl Hct 36.3 L (37-47) % MCV 87.1 (80-98) fL MCH 27.6 (27.0-33.0) pg MCHC 31.7 (31.0-35.0) g/dl RDW 18.8 H (11.0-16.0) % Plt Count 276 (160-400) X10*3/uL MPV 9.2 L (9.4-12.3) fL Immature Gran % (Auto) 0.3 (0.0-0.4) % Neut % (Auto) 58.0 (45-73) % Lymph % (Auto) 29.5 (20-40) % [place] % (Auto) 10.9 (2-11) % Eos % (Auto) 0.9 (0-4) % Baso % (Auto) 0.4 (0-2) % Lymph # (Auto) 2.0 (1.2-4.9) X10*3/uL [place] # (Auto) 0.7 (0.1-1.2) X10*3/uL Eos # (Auto) 0.1 (0.0-0.4) X10*3/uL Baso # (Auto) 0.0 (0.0-0.2) X10*3/uL Abs Immat Gran (auto) 0.02 (0.00-0.03) X10*3/uL Absolute Neuts (auto) 3.9 (2.0-8.3) X10*3/uL Absolute Nucleated RBC 0.000 (0.0-0.012) X10*3/uL Nucleated RBC % (auto) 0.0 (0.0-0.2) /100WBC Hold Blue Top SEE NOTE Sodium (135-145) mmol/L Potassium (3.3-5.1) mmol/L Chloride (96-108) mmol/L Carbon Dioxide (22-29) mmol/L Anion Gap (12-20) BUN (9-16) mg/dL Creatinine (0.5-1.4) mg/dL Estim Creat Clear Calc Estimated GFR Random Glucose (60-115) mg/dL Calcium (8.4-10.2) mg/dL Urine Color YELLOW Urine Appearance HAZY Urine pH 5.5 (5.0-8.0) Ur Specific [place] 1.010 (1.005-1.025) Urine Protein NEG (NEG-TRACE) MG/DL Urine Glucose (UA) NEG (NEG) MG/DL Urine Ketones NEG (NEG) MG/DL Urine Blood NEG (NEG) Urine Nitrite POS H (NEG) Ur Leukocyte Esterase TRACE H (NEG) Urine RBC 0 (0) /HPF Urine WBC 0-2 (0-4) /HPF Ur Squamous Epith Cells 2+ /LPF Urine Bacteria 1+ /LPF 10/08/20 Range/Units 12:56 WBC (4.8-10.8) X10*3/uL RBC (4.20-5.50) X10*6/uL Hgb (12.0-16.0) g/dl Hct (37-47) % MCV (80-98) fL MCH (27.0-33.0) pg MCHC (31.0-35.0) g/dl RDW (11.0-16.0) % Plt Count (160-400) X10*3/uL MPV (9.4-12.3) fL Immature Gran % (Auto) (0.0-0.4) % Neut % (Auto) (45-73) % Lymph % (Auto) (20-40) % [place] % (Auto) (2-11) % Eos % (Auto) (0-4) % Baso % (Auto) (0-2) % Lymph # (Auto) (1.2-4.9) X10*3/uL [place] # (Auto) (0.1-1.2) X10*3/uL Eos # (Auto) (0.0-0.4) X10*3/uL Baso # (Auto) (0.0-0.2) X10*3/uL Abs Immat Gran (auto) (0.00-0.03) X10*3/uL Absolute Neuts (auto) (2.0-8.3) X10*3/uL Absolute Nucleated RBC (0.0-0.012) X10*3/uL Nucleated RBC % (auto) (0.0-0.2) /100WBC Hold Blue Top Sodium 138 (135-145) mmol/L Potassium 4.3 (3.3-5.1) mmol/L Chloride 100 (96-108) mmol/L Carbon Dioxide 30 H (22-29) mmol/L Anion Gap 12 (12-20) BUN 12 (9-16) mg/dL Creatinine 0.80 (0.5-1.4) mg/dL Estim Creat Clear Calc 77.5 Estimated GFR > 60 Random Glucose 75 (60-115) mg/dL Calcium 9.4 (8.4-10.2) mg/dL Urine Color Urine Appearance Urine pH (5.0-8.0) Ur Specific [place] (1.005-1.025) Urine Protein (NEG-TRACE) MG/DL Urine Glucose (UA) (NEG) MG/DL Urine Ketones (NEG) MG/DL Urine Blood (NEG) Urine Nitrite (NEG) Ur Leukocyte Esterase (NEG) Urine RBC (0) /HPF Urine WBC (0-4) /HPF Ur Squamous Epith Cells /LPF Urine Bacteria /LPF Discharge Plan Discharge Clinical Impression: Interstitial cystitis Patient Disposition: Home, Self-Care Additional Instructions: Follow with urologist He texted me and said they will send in a prescription for vaginal Valium For discomfort I wrote a prescription for oral morphine and Ativan Urinalysis was contaminated but did show nitrites which means you may have a urinary tract infection so I wrote a prescription for Macrobid Return any time if worse Prescriptions: New nitrofurantoin monohyd/m-cryst [Macrobid] 100 mg capsule 100 mg PO Q12H 5 Days Qty: 10 RF: 0 nitrofurantoin monohyd/m-cryst [Macrobid] 100 mg capsule 100 mg PO Q12H 5 Days Qty: 10 RF: 0 lorazepam [Ativan] 1 mg tablet 1 mg PO BID PRN (Reason: anxiety) Qty: 7 RF: 0 morphine 15 mg tablet 15 mg PO Q6H PRN (Reason: pain) Qty: 10 RF: 0 No Action Elmiron 100 mg capsule 200 mg PO BID 30 Days Qty: 120 RF: 5 diazepam 10 mg tablet 10 mg PO BEDTIME PRN (Reason: sleep) Qty: 7 RF: 0 diazepam 10 mg tablet See Rx Instructions .ROUTE BEDTIME 30 Days Qty: 20 RF: 0 clonazepam 0.5 mg tablet 0.5 mg PO BID RF: 0 montelukast 10 mg tablet 10 mg PO QAM RF: 0 carisoprodol 350 mg tablet 350 mg PO BID RF: 0 clonazepam 0.5 mg Tablet 1 mg PO BEDTIME RF: 0 fluticasone propionate 110 mcg/actuation Hfa Aerosol Inhaler 1 puff INHALATION BID RF: 0 Elmiron 100 mg capsule 100 mg PO QID RF: 0 ondansetron HCl 8 mg tablet 8 mg PO QAM RF: 0 olanzapine 7.5 mg Tablet 7.5 mg PO BEDTIME RF: 0 trazodone 150 mg tablet 300 mg PO BEDTIME RF: 0 folic acid 1 mg Tablet 1 mg PO DAILY RF: 0 albuterol sulfate [ProAir HFA] 90 mcg/actuation Hfa Aerosol Inhaler 2 puff INHALATION Q4-6H PRN (Reason: Shortness Of Breath) RF: 0 loratadine 10 mg Tablet 10 mg PO DAILY RF: 0 ezetimibe 10 mg tablet 10 mg PO QAM RF: 0 sertraline 100 mg Tablet 150 mg PO QAM RF: 0 oxycodone 5 mg capsule 5 mg PO Q8H PRN (Reason: pain) Qty: 20 RF: 0 diazepam 10 mg tablet 10 mg PO BEDTIME PRN (Reason: pelvic floor spasm) 14 Days Qty: 14 RF: 0 oxycodone 5 mg tablet 5 mg PO Q8H PRN (Reason: pain) Qty: 20 RF: 0 phenazopyridine [Pyridium] 100 mg tablet 100 mg PO TID PRN (Reason: spasm) 4 Days Qty: 12 RF: 0 oxycodone 5 mg tablet 5 mg PO Q8H PRN (Reason: pain) Qty: 20 RF: 0 diazepam 10 mg tablet 10 mg PO BEDTIME PRN (Reason: muscle spasm) Qty: 10 RF: 0 Interventions: ED Discharge Assessment Last Done: 10/08/20 14:59 Discharge Date/Time: 10/08/20 14:59
[2020-10-08] MEDS: Morphine Sulfate 4 MG/ML CARTRIDGE IM (14:13)
[2020-10-08] MEDS: LORazepam 1 MG TABLET PO (14:18)
[2020-10-08 14:54] VITALS: RESP 18
[2020-10-08 14:58] VITALS: BP 107/63; PULSE 73; RESP 18; TEMP 37; O2SAT 100
== END 2020-10-08 14:59 | disposition home or self-care (01) ==
PROVIDERS: Emergency Provider Emergency Medicine; PCP Internal Medicine
DX: N30.10 Interstitial cystitis (chronic) without hematuria (principal); F17.200 Nicotine dependence, unspecified, uncomplicated
CPT/HCPCS: 36415; 80048; 81001; 81003; 85025; 87086; 96372; 99284; J2270

== ENCOUNTER → 2020-10-15 12:11 | Outpatient (BNVA) | payer MEDICARE, MEDICAID, SELFPAY | PROVIDERS: PCP Internal Medicine; Visit Provider Urology | DX: Z13.89 Encounter for screening for other disorder (principal) | CPT/HCPCS: Q3014 ==

== ENCOUNTER 2020-10-21 12:31 | Day surgery (SDC) | payer OTHER, SELFPAY ==
--- NOTE | 2020-10-17 15:27 | HO.ANESPROP2 ---
HPI - Anesthesia Eval Consult details Narrative: 55yo F for Cystoscopy Hydrodistention of Bladder last cysto-hydrodistention with MAC 07/2020 Chronic opioids PMFSH Active Problems Active Problems: All Active Problems (Updated 10/08/20 @ 14:50 by MILTON Logan) Interstitial cystitis (Acute) Past Medical History Medical History Asthma Back pain Depression Elevated cholesterol History of anxiety History of gastrostomy tube placement Hx of cystitis Hx of ulcerative colitis Lab test negative for COVID-19 virus Surgical History Surgical History History of bladder surgery Social History Social History Smoking Status: Current every day smoker Cigarettes Per Day: 6 Years Smoked: 20 Smoked in Last 30 Days: Yes Use of substances other than those prescribed or required for medical reasons: No Are you DNR?: No Advance Directives: No Advance Directives Information Provided: Yes Recently lost weight without trying: No Nutrition Risks: No Nutritional Risk Meds Allergies Allergy/AdvReac Type Severity Reaction Status Date / Time amoxicillin [From AUGMENTIN] Allergy Severe SEVERE Verified 06/03/20 12:57 DIARRHEA clavulanic acid Allergy Severe SEVERE Verified 06/03/20 12:57 [From AUGMENTIN] DIARRHEA Lvemgry-Jzt-Auj Reductase Allergy Intermediate muscle Verified 06/03/20 12:57 Inhibitor aches, [[id number] REDUCTASE cramps INHIBITOR] acetaminophen [ACETAMINOPHEN] AdvReac Severe GI upset. Verified 06/03/20 12:57 Pt confirmed NOT allergic to oxycodone Home Medications Medication Instructions Recorded Confirmed Last Taken Type Elmiron 100 mg PO QID 04/25/20 04/30/20 06/03/20 09:30 History albuterol sulfate [ProAir HFA] 2 puff INHALATION Q4-6H PRN 04/25/20 04/25/20 Unknown History carisoprodol 350 mg PO BID 04/25/20 04/25/20 Unknown History clonazepam 0.5 mg PO BID 04/25/20 04/30/20 04/30/20 05:45 History clonazepam 1 mg PO BEDTIME 04/25/20 04/25/20 Unknown History ezetimibe 10 mg PO QAM 04/25/20 04/25/20 Unknown History fluticasone propionate 1 puff INHALATION BID 04/25/20 04/25/20 Unknown History folic acid 1 mg PO DAILY 04/25/20 04/25/20 Unknown History loratadine 10 mg PO DAILY 04/25/20 04/25/20 10/21/20 History montelukast 10 mg PO QAM 04/25/20 04/30/20 04/30/20 05:45 History olanzapine 7.5 mg PO BEDTIME 04/25/20 04/25/20 Unknown History ondansetron HCl 8 mg PO QAM 04/25/20 04/25/20 Unknown History sertraline 150 mg PO QAM 04/25/20 04/30/20 06/03/20 09:30 History trazodone 300 mg PO BEDTIME 04/25/20 04/25/20 Unknown History adalimumab 40 mg/0.4 mL mg SUBCUT 06/21/20 Unknown History subcutaneous pen kit olanzapine 2.5 mg tablet mg PO 06/21/20 Unknown History olanzapine 5 mg tablet mg PO 06/21/20 Unknown History Exam Exam Date and Time: October 17, 2020 1527 Assessment and Plan Assessment Anesthesia Assessment: Chart Reviewed
[2020-10-21 13:18] VITALS: BMI 25.0
[2020-10-21 13:21] VITALS: BP 100/48; PULSE 60; RESP 16; TEMP 36.2; O2SAT 97
[2020-10-21] MEDS: levoFLOXacin/D5W 500 MG/100 ML PIGGYBACK 100 MG IV (14:21)
--- NOTE | 2020-10-21 14:28 | PC.NURSE ---
patient moved to pacu bed 15. report given to ching veras.
--- NOTE | 2020-10-21 15:33 | HO.ANESPROP2 ---
[facility] Active Problems Active Problems: All Active Problems (Updated 10/08/20 @ 14:50 by MILTON Logan) Interstitial cystitis (Acute) Past Medical History Medical History Asthma Back pain Depression Elevated cholesterol History of anxiety History of gastrostomy tube placement Hx of cystitis Hx of ulcerative colitis Lab test negative for COVID-19 virus Surgical History Surgical History History of bladder surgery Social History Social History Smoking Status: Current every day smoker Cigarettes Per Day: 6 Years Smoked: 20 Smoked in Last 30 Days: Yes Use of substances other than those prescribed or required for medical reasons: No Are you DNR?: No Advance Directives: No Advance Directives Information Provided: Yes Recently lost weight without trying: No Nutrition Risks: No Nutritional Risk Meds Allergies Allergy/AdvReac Type Severity Reaction Status Date / Time amoxicillin [From AUGMENTIN] Allergy Severe SEVERE Verified 06/03/20 12:57 DIARRHEA clavulanic acid Allergy Severe SEVERE Verified 06/03/20 12:57 [From AUGMENTIN] DIARRHEA oxycodone [From Percocet] Allergy Severe Diarrhea Verified 06/03/20 12:57 Odbxmqd-Vae-Knv Reductase Allergy Intermediate muscle Verified 06/03/20 12:57 Inhibitor aches, [[id number] REDUCTASE cramps INHIBITOR] acetaminophen [ACETAMINOPHEN] AdvReac Severe GI upset. Verified 06/03/20 12:57 Pt confirmed NOT allergic to oxycodone Active Medications: Current Medications Generic Name Dose Route Start Last Admin Trade Name Freq PRN Reason Stop Dose Admin Albuterol Sulfate 2.5 mg 10/21/20 13:13 Albuterol Sulfate (0.083%) 2.5 Mg/3 Ml Vial.Neb INHALE ONCE PRN Shortness of Breath/Wheezing Lactated Ringer's 1,000 mls @ 100 mls/hr 10/21/20 13:15 Lr IVCONT .Q10H [facility] Home Medications Medication Instructions Recorded Confirmed Last Taken Type Elmiron 100 mg PO QID 04/25/20 04/30/20 06/03/20 09:30 History albuterol sulfate [ProAir HFA] 2 puff INHALATION Q4-6H PRN 04/25/20 04/25/20 Unknown History carisoprodol 350 mg PO BID 04/25/20 04/25/20 Unknown History clonazepam 0.5 mg PO BID 04/25/20 04/30/20 04/30/20 05:45 History clonazepam 1 mg PO BEDTIME 04/25/20 04/25/20 Unknown History ezetimibe 10 mg PO QAM 04/25/20 04/25/20 Unknown History fluticasone propionate 1 puff INHALATION BID 04/25/20 04/25/20 Unknown History folic acid 1 mg PO DAILY 04/25/20 04/25/20 Unknown History loratadine 10 mg PO DAILY 04/25/20 04/25/20 10/21/20 History montelukast 10 mg PO QAM 04/25/20 04/30/20 04/30/20 05:45 History olanzapine 7.5 mg PO BEDTIME 04/25/20 04/25/20 Unknown History ondansetron HCl 8 mg PO QAM 04/25/20 04/25/20 Unknown History sertraline 150 mg PO QAM 04/25/20 04/30/20 06/03/20 09:30 History trazodone 300 mg PO BEDTIME 04/25/20 04/25/20 Unknown History adalimumab 40 mg/0.4 mL mg SUBCUT 06/21/20 Unknown History subcutaneous pen kit olanzapine 2.5 mg tablet mg PO 06/21/20 Unknown History olanzapine 5 mg tablet mg PO 06/21/20 Unknown History Exam Exam Date and Time: October 21, 2020 1533 Height,Weight and Vital Signs: Height 5 ft 5 in Weight 68.039 kg Last Vital Signs Temp 97.1 F 10/21/20 13:21 Pulse 60 10/21/20 13:21 Resp 16 10/21/20 13:21 BP 100/48 L 10/21/20 13:21 Pulse Ox 97 10/21/20 13:21 Airway Mallampati Class: II TM Dist: >3cm Neck ROM: Full Heart: RRR Lungs: CTA
--- NOTE | 2020-10-21 15:44 | MHC.SHP ---
Pre-Procedural Eval Section A The patient is an INPATIENT: No Changes since office visit: No Cold of Flu in the past 2 weeks, No New Medical Problems, No Changes in Medication and No Patient answered all questions The History & Physical has been completed within 30 days and I have reviewed it.: Yes Section B Chief Complaint: cystitis Allergies: Allergies Allergy/AdvReac Type Severity Reaction Status Date / Time amoxicillin [From AUGMENTIN] Allergy Severe SEVERE Verified 06/03/20 12:57 DIARRHEA clavulanic acid Allergy Severe SEVERE Verified 06/03/20 12:57 [From AUGMENTIN] DIARRHEA oxycodone [From Percocet] Allergy Severe Diarrhea Verified 06/03/20 12:57 Agkpbor-Ivo-Uxa Reductase Allergy Intermediate muscle Verified 06/03/20 12:57 Inhibitor aches, [[id number] REDUCTASE cramps INHIBITOR] acetaminophen [ACETAMINOPHEN] AdvReac Severe GI upset. Verified 06/03/20 12:57 Pt confirmed NOT allergic to oxycodone Plan Diagnosis/Plan: Unchanged (Hydrodistention cystoscopy) I have reviewed the history and physical and performed a pertinent physical examination on my patient. No changes have occurred unless specified.
--- NOTE | 2020-10-21 16:44 | P.OP_ITS ---
Operative Note Operative Note Date of Service: 10/21/20 Narrative: PreOperative Diagnosis: Interstitial cystitis Post Operative Diagnosis: Interstitial cystitis Procedure: Cystoscopy with hydrodistention Surgeon: Dr Mk Cornelius Anesthesia: Heavy sedation Indications for procedure: Longstanding interstitial cystitis Has good response to hydrodistention Presents today for repeat hydrodistention Procedure: After informed consent was verified the patient was brought to the operating room and placed in a supine position. anesthesia was administered per protocol. Her bladder was emptied with a straight catheter. 10 cc of lidocaine jelly with 10 cc of 0.5% bupivacaine were instilled for postprocedure pain management. She was prepped and draped in sterile fashion. Safety pause time-out was performed. Twenty-two Welsh cystoscope inserted. Bladder was examined. Bladder was filled and allowed to remain filled under pressure for 3-4 minutes. Total amount in 1st filling 800 cc. Total amount on 2nd filling 900 cc. Her bladder was emptied. A 2nd administration of lidocaine jelly in bupivacaine was placed inside of bladder for postprocedure pain management. She tolerated procedure well was transferred in stable condition to the recovery area
[2020-10-21 16:45] VITALS: BP 166/91; PULSE 70; RESP 16; TEMP 36.7; O2SAT 99
[2020-10-21 16:50] VITALS: BP 121/89; PULSE 66; RESP 16; O2SAT 97
[2020-10-21 16:55] VITALS: BP 130/100; PULSE 66; RESP 16; O2SAT 100
[2020-10-21 17:00] VITALS: BP 120/68; PULSE 65; RESP 16; O2SAT 98
[2020-10-21] MEDS: Phenazopyridine HCL 100 MG TABLET PO (17:06)
[2020-10-21] MEDS: oxyCODONE HCl Immed Release 5 MG TABLET PO (17:07)
[2020-10-21 17:15] VITALS: BP 147/84; PULSE 63; RESP 18; TEMP 36.1; O2SAT 97
--- NOTE | 2020-10-21 17:32 | PC.NURSE ---
AMBULATED TO BATHROOM TO VOIDX1 PINK TINGED URINE STEADY GAIT. NO NAUSEA. ASSISTED TO DRESS AT BEDSIDE.
== END 2020-10-21 15:00 | disposition home or self-care (01) ==
PROVIDERS: PCP Internal Medicine; Visit Provider Urology
PROC: 0T7B7ZZ Dilation of Bladder, Via Natural or Artificial Opening (ICD-10-PCS; CPT 52260; principal; 2020-10-21 14:10)
DX: N30.10 Interstitial cystitis (chronic) without hematuria (principal); J45.909 Unspecified asthma, uncomplicated; F32.9 Major depressive disorder, single episode, unspecified; Z88.1 Allergy status to other antibiotic agents; Z88.8 Allergy status to other drugs, medicaments and biological substances; F17.210 Nicotine dependence, cigarettes, uncomplicated; Z79.899 Other long term (current) drug therapy
CPT/HCPCS: 52260; J1956; J2250; J3010

== ENCOUNTER → 2020-12-18 13:13 | Outpatient (BNVA) | payer OTHER, SELFPAY | PROVIDERS: PCP Internal Medicine; Visit Provider Urology | DX: N30.10 Interstitial cystitis (chronic) without hematuria (principal) | CPT/HCPCS: Q3014 ==

== ENCOUNTER 2021-01-06 08:35 | Day surgery (SDC) | payer OTHER, SELFPAY ==
--- NOTE | 2021-01-03 09:49 | HO.ANESPROP2 ---
HPI - Anesthesia Eval Consult details Narrative: 56yo F for Cystoscopy Hydrodistention of Bladder last cysto-hydrodistention with GA-LMA 4 10/2020 Chronic opioids PMFSH Active Problems Active Problems: All Active Problems (Updated 10/08/20 @ 14:50 by MILTON Logan) Interstitial cystitis (Acute) Past Medical History Medical History Asthma Back pain Depression Elevated cholesterol History of anxiety History of gastrostomy tube placement Hx of cystitis Hx of ulcerative colitis Lab test negative for COVID-19 virus Surgical History Surgical History (Updated 12/30/20 @ 15:09 by Leatha Tatum) History of bladder surgery Social History Social History Are you a primary anesthesiologist and critical care to a significant other at home: No Do you presently have visiting nurse or other home services: No Patient Tobacco Use Status: Current everyday Tobacco user Cigarettes Per Day: 6 Years Smoked: 20 Meds Allergies Allergy/AdvReac Type Severity Reaction Status Date / Time amoxicillin [From AUGMENTIN] Allergy Severe SEVERE Verified 01/06/21 09:03 DIARRHEA clavulanic acid Allergy Severe SEVERE Verified 01/06/21 09:03 [From AUGMENTIN] DIARRHEA Fadehqe-Ezs-Ovb Reductase Allergy Intermediate muscle Verified 01/06/21 09:03 Inhibitor aches, [[id number] REDUCTASE cramps INHIBITOR] acetaminophen [ACETAMINOPHEN] AdvReac Severe GI upset. Verified 01/06/21 09:03 Pt confirmed NOT allergic to oxycodone Home Medications Medication Instructions Recorded Confirmed Last Taken Type Elmiron 100 mg PO QID 04/25/20 12/30/20 06/03/20 09:30 History albuterol sulfate [ProAir HFA] 2 puff INHALATION Q4-6H PRN 04/25/20 12/30/20 Unknown History carisoprodol 350 mg PO BID 04/25/20 12/30/20 Unknown History clonazepam 0.5 mg PO BID 04/25/20 12/30/20 04/30/20 05:45 History clonazepam 1 mg PO BEDTIME 04/25/20 12/30/20 Unknown History ezetimibe 10 mg PO QAM 04/25/20 12/30/20 Unknown History fluticasone propionate 1 puff INHALATION BID 04/25/20 12/30/20 Unknown History folic acid 1 mg PO DAILY 04/25/20 12/30/20 Unknown History loratadine 10 mg PO DAILY 04/25/20 12/30/20 10/21/20 History montelukast 10 mg PO QAM 04/25/20 12/30/20 04/30/20 05:45 History olanzapine 7.5 mg PO BEDTIME 04/25/20 12/30/20 Unknown History ondansetron HCl 8 mg PO QAM 04/25/20 12/30/20 Unknown History sertraline 150 mg PO QAM 04/25/20 12/30/20 06/03/20 09:30 History trazodone 300 mg PO BEDTIME 04/25/20 12/30/20 Unknown History adalimumab 40 mg/0.4 mL mg SUBCUT 06/21/20 Unknown History subcutaneous pen kit Exam Exam Date and Time: January 03, 2021 0949 Pertinent Lab Results Pertinent Lab Results: Laboratory Tests 10/08/20 10/08/20 12:55 12:56 WBC 6.8 Hgb 11.5 L Hct 36.3 L Plt Count 276 Sodium 138 Potassium 4.3 Chloride 100 Carbon Dioxide 30 H BUN 12 Creatinine 0.80 Assessment and Plan Assessment Anesthesia Assessment: Chart Reviewed
[2021-01-06 09:10] VITALS: BP 105/45; PULSE 84; RESP 18; TEMP 36.7; O2SAT 95; BMI 56.8
[2021-01-06] MEDS: Lactated Ringers 1,000 ML 50 ML IVCONT (09:35)
--- NOTE | 2021-01-06 10:01 | MHC.SHP ---
Pre-Procedural Eval Section A Date of Service: 01/06/21 Section B Chief Complaint: cystitis Details of Present Illness: Olga is a 56-year-old male. Suffers from interstitial cystitis. Has interval cystoscopy with hydrodistention. Has started developing symptoms again. This initiates hydrodistention. She is aware of all risks Relevant Family History (Specify if Yes): No Relevant Social History: None Present Medications: see Short Stay Collaborative assessment Medical History: No relevant PMH History of Previous Operations: Relevant previous surgery/procedure and date(s) Allergies: Allergies Allergy/AdvReac Type Severity Reaction Status Date / Time amoxicillin [From AUGMENTIN] Allergy Severe SEVERE Verified 01/06/21 09:03 DIARRHEA clavulanic acid Allergy Severe SEVERE Verified 01/06/21 09:03 [From AUGMENTIN] DIARRHEA Ttrfkps-Dko-Nzn Reductase Allergy Intermediate muscle Verified 01/06/21 09:03 Inhibitor aches, [[id number] REDUCTASE cramps INHIBITOR] acetaminophen [ACETAMINOPHEN] AdvReac Severe GI upset. Verified 01/06/21 09:03 Pt confirmed NOT allergic to oxycodone Review of Systems Sugical H&P ROS: Negative: Constitution, Cardiovascular, Respiratory, Neurological, Psychiatric, Hem-Onc, Allergic/Immunologic, Gastrointestinal, Genitourinary, Musculoskeletal, Integumentary, Endocrine and Eyes/Ears/Nose/Throat Exam Surgical H&P Exam: Normal: HEENT, Normal: Heart, Normal: Lungs, Normal: Extremities, Normal: Abdomen, Normal: Skin and Normal: Neurological Plan Diagnosis/Plan: Unchanged (Cystoscopy hydrodistention) I have reviewed the history and physical and performed a pertinent physical examination on my patient. No changes have occurred unless specified.
[2021-01-06] MEDS: levoFLOXacin 500 MG TABLET PO (10:04)
[2021-01-06 10:50] VITALS: BP 95/50; PULSE 64; RESP 16; TEMP 36.2; O2SAT 100
--- NOTE | 2021-01-06 10:53 | P.OP_ITS ---
Operative Note Operative Note Date of Service: 01/06/21 Narrative: PreOperative Diagnosis: Interstitial cystitis Post Operative Diagnosis: Interstitial cystitis Procedure: Cystoscopy with hydrodistention Surgeon: Dr Mk Cornelius Anesthesia: Heavy sedation Indications for procedure: Longstanding interstitial cystitis Has good response to hydrodistention Presents today for repeat hydrodistention Procedure: After informed consent was verified the patient was brought to the operating room and placed in a supine position. anesthesia was administered per protocol. Her bladder was emptied with a straight catheter. 10 cc of lidocaine jelly with 10 cc of 0.5% bupivacaine were instilled for postprocedure pain management. She was prepped and draped in sterile fashion. Safety pause time-out was performed. Twenty-two Italian cystoscope inserted. Bladder was examined. Bladder was filled and allowed to remain filled under pressure for 3-4 minutes. Bladder noted to have moderate trabeculation with post filling glomerulation Total amount in 1st filling 1000cc. Total amount on 2nd filling 1000 cc. Her bladder was emptied. A 2nd administration of lidocaine jelly in bupivacaine was placed inside of bladder for postprocedure pain management. She tolerated procedure well was transferred in stable condition to the recovery area
[2021-01-06 11:05] VITALS: BP 127/62; PULSE 74; RESP 16; O2SAT 98
[2021-01-06] MEDS: oxyCODONE HCl Immed Release 5 MG TABLET PO (11:09)
[2021-01-06] MEDS: Phenazopyridine HCL 100 MG TABLET PO (11:11)
[2021-01-06 11:20] VITALS: BP 102/52; PULSE 72; RESP 16; TEMP 36.2; O2SAT 99
== END 2021-01-06 11:52 | disposition home or self-care (01) ==
PROVIDERS: PCP Internal Medicine; Visit Provider Urology
PROC: 0T7B7ZZ Dilation of Bladder, Via Natural or Artificial Opening (ICD-10-PCS; CPT 52260; principal; 2021-01-06 11:00)
DX: N30.10 Interstitial cystitis (chronic) without hematuria (principal); J45.909 Unspecified asthma, uncomplicated; F32.9 Major depressive disorder, single episode, unspecified; K51.90 Ulcerative colitis, unspecified, without complications; Z93.1 Gastrostomy status; Z79.899 Other long term (current) drug therapy; Z79.51 Long term (current) use of inhaled steroids; F17.210 Nicotine dependence, cigarettes, uncomplicated; Z88.8 Allergy status to other drugs, medicaments and biological substances; Z88.0 Allergy status to penicillin
CPT/HCPCS: 52260; J2250

== ENCOUNTER → 2021-01-30 13:13 | Outpatient (BNVA) | payer OTHER, SELFPAY | PROVIDERS: PCP Internal Medicine; Visit Provider Urology | DX: N30.10 Interstitial cystitis (chronic) without hematuria (principal); N32.89 Other specified disorders of bladder | CPT/HCPCS: Q3014 ==

== ENCOUNTER 2021-03-17 08:07 | Day surgery (SDC) | payer OTHER, SELFPAY ==
[2021-03-11 09:39] VITALS: BMI 25.0
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
[2021-03-17 08:19] VITALS: BP 112/64; PULSE 77; RESP 16; TEMP 36.7
[2021-03-17] MEDS: levoFLOXacin 500 MG TABLET PO (08:29)
[2021-03-17] MEDS: Lactated Ringers 1,000 ML 100 ML IVCONT (08:33)
--- NOTE | 2021-03-17 08:53 | P.CONAN_ITS ---
[facility] Active Problems Active Problems: All Active Problems (Updated 03/17/21 @ 08:12 by Rand hernandez RN) Interstitial cystitis (Acute) Bladder spasm (Acute) Past Medical History Medical History (Updated 03/17/21 @ 08:12 by Rand Chu RN) Asthma Back pain Depression Elevated cholesterol History of anxiety History of gastrostomy tube placement Hx of cystitis Hx of ulcerative colitis Lab test negative for COVID-19 virus SVT (supraventricular tachycardia) Surgical History Surgical History (Updated 03/11/21 @ 09:34 by Matilda Aponte RN) History of bladder surgery Social History Social History Are you a primary animal care technician to a significant other at home: No Do you presently have visiting nurse or other home services: No Patient Tobacco Use Status: Current everyday Tobacco user Tobacco use type: Cigarette Cigarettes Per Day: 6 Years Smoked: 20 Are you DNR?: No Advance Directives Information Provided: No Meds Allergies Allergy/AdvReac Type Severity Reaction Status Date / Time amoxicillin [From AUGMENTIN] Allergy Severe SEVERE Verified 01/30/21 13:11 DIARRHEA clavulanic acid Allergy Severe SEVERE Verified 01/30/21 13:11 [From AUGMENTIN] DIARRHEA Bzgrzrs-Aoj-Nvj Reductase Allergy Intermediate muscle Verified 01/30/21 13:11 Inhibitor aches, [[id number] REDUCTASE cramps INHIBITOR] acetaminophen [ACETAMINOPHEN] AdvReac Severe GI upset. Verified 01/30/21 13:11 Pt confirmed NOT allergic to oxycodone Home Medications Medication Instructions Recorded Confirmed Last Taken Type albuterol sulfate 90 mcg/actuation 2 puff INHALATION Q4-6H PRN 04/25/20 03/11/21 Unknown History aerosol inhaler (ProAir HFA) carisoprodol 350 mg tablet 350 mg PO BID 04/25/20 03/11/21 03/17/21 History clonazepam 0.5 mg tablet 0.5 mg PO BID 04/25/20 03/11/21 04/30/20 05:45 History clonazepam 0.5 mg tablet 1 mg PO BEDTIME 04/25/20 03/11/21 Unknown History ezetimibe 10 mg tablet 10 mg PO QAM 04/25/20 03/11/21 Unknown History fluticasone propionate 110 1 puff INHALATION BID 04/25/20 03/11/21 Unknown History mcg/actuation HFA aerosol inhaler folic acid 1 mg tablet 1 mg PO DAILY 04/25/20 03/11/21 Unknown History loratadine 10 mg tablet 10 mg PO DAILY 04/25/20 03/11/21 10/21/20 History montelukast 10 mg tablet 10 mg PO QAM 04/25/20 03/11/21 04/30/20 05:45 History olanzapine 7.5 mg tablet 7.5 mg PO BEDTIME 04/25/20 03/11/21 Unknown History ondansetron HCl 8 mg tablet 8 mg PO QAM 04/25/20 03/11/21 Unknown History pentosan polysulfate sodium 100 mg 100 mg PO QID 04/25/20 03/11/21 03/17/21 History capsule (Elmiron) sertraline 100 mg tablet 150 mg PO QAM 04/25/20 03/11/21 03/17/21 History trazodone 150 mg tablet 300 mg PO BEDTIME 04/25/20 03/11/21 Unknown History adalimumab 40 mg/0.4 mL mg SUBCUT 06/21/20 Unknown History subcutaneous pen kit Exam Exam Date and Time: March 17, 2021 0853 Height,Weight and Vital Signs: Height 5 ft 5 in Weight 68.039 kg Last Vital Signs Temp 98.1 F 03/17/21 08:19 Pulse 77 03/17/21 08:19 Resp 16 03/17/21 08:19 BP 112/64 03/17/21 08:19 Airway Mallampati Class: II TM Dist: >3cm Neck ROM: Full
--- NOTE | 2021-03-17 09:11 | MHC.SHP ---
Pre-Procedural Eval Section A Date of Service: 03/17/21 Section B Chief Complaint: Interstitial Cystitis Details of Present Illness: Here for hydrodistention Relevant Social History: None Present Medications: see Short Stay Collaborative assessment Medical History: Significant History History of Previous Operations: Relevant previous surgery/procedure and date(s) Allergies: Allergies Allergy/AdvReac Type Severity Reaction Status Date / Time amoxicillin [From AUGMENTIN] Allergy Severe SEVERE Verified 01/30/21 13:11 DIARRHEA clavulanic acid Allergy Severe SEVERE Verified 01/30/21 13:11 [From AUGMENTIN] DIARRHEA Ygbpfgz-Xvt-Uyq Reductase Allergy Intermediate muscle Verified 01/30/21 13:11 Inhibitor aches, [[id number] REDUCTASE cramps INHIBITOR] acetaminophen [ACETAMINOPHEN] AdvReac Severe GI upset. Verified 01/30/21 13:11 Pt confirmed NOT allergic to oxycodone Review of Systems Sugical H&P ROS: Negative: Constitution, Cardiovascular, Respiratory, Neurological, Psychiatric, Hem-Onc, Allergic/Immunologic, Gastrointestinal, Genitourinary, Musculoskeletal, Integumentary, Endocrine and Eyes/Ears/Nose/Throat Exam Surgical H&P Exam: Normal: HEENT, Normal: Heart, Normal: Lungs, Normal: Extremities, Normal: Abdomen, Normal: Skin and Normal: Neurological Plan Diagnosis/Plan: Unchanged (Hydrodistention) I have reviewed the history and physical and performed a pertinent physical examination on my patient. No changes have occurred unless specified.
--- NOTE | 2021-03-17 10:10 | P.OP_ITS ---
Operative Note Operative Note Date of Service: 03/17/21 Narrative: PreOperative Diagnosis:? Interstitial cystitis Post Operative Diagnosis:? Interstitial cystitis Procedure:? Cystoscopy with hydrodistention Surgeon: Dr Mk Cornelius Anesthesia:? Heavy sedation Indications for procedure: Longstanding interstitial cystitis Has good response to hydrodistention Presents today for repeat hydrodistention Procedure: After informed consent was verified the patient was brought to the operating room and placed in a supine position.? anesthesia was administered per protocol. Her bladder was emptied with a straight catheter.? 10 cc of lidocaine jelly with 10 cc of 0.5% bupivacaine were instilled for postprocedure pain management. She was prepped and draped in sterile fashion.? Safety pause time-out was performed. Twenty-two Salvadorean cystoscope inserted.? Bladder was examined.? Bladder was filled and allowed to remain filled under pressure for 3-4 minutes.? Bladder noted to have moderate trabeculation with post filling glomerulation Total amount in 1st filling 1000cc. Total amount on 2nd filling 1000 cc. Her bladder was emptied.? A 2nd administration of lidocaine jelly in bupivacaine was placed inside of bladder for postprocedure pain management. She tolerated procedure well was transferred in stable condition to the recovery area
[2021-03-17 10:11] VITALS: BP 106/66; PULSE 65; RESP 12; TEMP 36.1; O2SAT 100
[2021-03-17 10:16] VITALS: BP 129/70; PULSE 64; RESP 14; O2SAT 99
[2021-03-17 10:21] VITALS: BP 138/77; PULSE 62; RESP 18; O2SAT 96
[2021-03-17 10:26] VITALS: BP 138/72; PULSE 70; RESP 18; O2SAT 96
[2021-03-17 10:39] VITALS: BP 138/72; PULSE 79; RESP 18; TEMP 36.2; O2SAT 97
[2021-03-17] MEDS: traMADoL HCL 50 MG TABLET PO (10:49)
== END 2021-03-17 12:27 | disposition home or self-care (01) ==
PROVIDERS: PCP Internal Medicine; Visit Provider Urology
PROC: 0T7B7ZZ Dilation of Bladder, Via Natural or Artificial Opening (ICD-10-PCS; CPT 52260; principal; 2021-03-17 09:30)
DX: N30.10 Interstitial cystitis (chronic) without hematuria (principal); N32.89 Other specified disorders of bladder; J45.909 Unspecified asthma, uncomplicated; Z88.0 Allergy status to penicillin; Z88.8 Allergy status to other drugs, medicaments and biological substances; F17.210 Nicotine dependence, cigarettes, uncomplicated
CPT/HCPCS: 52260; J1100; J2250; J2405; J3010

== ENCOUNTER → 2021-04-01 15:02 | Outpatient (BNVA) | payer OTHER, SELFPAY | PROVIDERS: PCP Internal Medicine | DX: N30.10 Interstitial cystitis (chronic) without hematuria (principal) | CPT/HCPCS: Q3014 ==

== ENCOUNTER 2021-05-26 05:59 | Day surgery (SDC) | payer OTHER, SELFPAY ==
[2021-05-20 10:19] VITALS: BMI 28.3
--- NOTE | 2021-05-23 12:22 | P.CONAN_ITS ---
Documented by User: Maureen Boyd NP 05/23/21 12:23 HPI - Anesthesia Eval Consult details Narrative: 56yo F for Cystoscopy Hydrodistention of Bladder last Cystoscopy Hydrodistention of Bladder 03/2021 with GA-LMA 4 PMFSH Active Problems Active Problems: All Active Problems (Updated 03/17/21 @ 08:12 by Rand Chu RN) Interstitial cystitis (Acute) Bladder spasm (Acute) Past Medical History Medical History Asthma Back pain Depression Elevated cholesterol History of anxiety History of gastrostomy tube placement Hx of cystitis Hx of ulcerative colitis Lab test negative for COVID-19 virus SVT (supraventricular tachycardia) Surgical History Surgical History (Updated 05/20/21 @ 10:12 by Matilda Aponte RN) History of bladder surgery Social History Social History Are you a primary healthcare science specialist to a significant other at home: No Do you presently have visiting nurse or other home services: No Patient Tobacco Use Status: Current everyday Tobacco user Tobacco use type: Cigarette Cigarettes Per Day: 6 Years Smoked: 20 Use of substances other than those prescribed or required for medical reasons: No Have you been hit, kicked, punched, or otherwise hurt by someone within the past year? If so, by whom?: No Are you DNR?: No Advance Directives: No Advance Directives Information Provided: Yes Advance Directives on File: No Recently lost weight without trying: No Eating poorly because of decreased appetite: No Nutrition Risks: No Nutritional Risk Meds Allergies Allergy/AdvReac Type Severity Reaction Status Date / Time amoxicillin [From AUGMENTIN] Allergy Severe SEVERE Verified 01/30/21 13:11 DIARRHEA clavulanic acid Allergy Severe SEVERE Verified 01/30/21 13:11 [From AUGMENTIN] DIARRHEA Movrptm-RNC-OkI Reductase Allergy Intermediate muscle Verified 01/30/21 13:11 Inhibitor aches, [[id number] REDUCTASE cramps INHIBITOR] acetaminophen [ACETAMINOPHEN] AdvReac Severe GI upset. Verified 01/30/21 13:11 Pt confirmed NOT allergic to oxycodone Home Medications Medication Instructions Recorded Confirmed Last Taken Type albuterol sulfate 90 mcg/actuation 2 puff INHALATION Q4-6H PRN 04/25/20 05/20/21 Unknown History aerosol inhaler (ProAir HFA) carisoprodol 350 mg tablet 350 mg PO BID 04/25/20 05/20/21 03/17/21 History clonazepam 0.5 mg tablet 0.5 mg PO BID 04/25/20 05/20/21 05/26/21 History clonazepam 0.5 mg tablet 1 mg PO BEDTIME 04/25/20 05/20/21 Unknown History ezetimibe 10 mg tablet 10 mg PO QAM 04/25/20 05/20/21 Unknown History fluticasone propionate 110 1 puff INHALATION BID 04/25/20 05/20/21 Unknown History mcg/actuation HFA aerosol inhaler folic acid 1 mg tablet 1 mg PO DAILY 04/25/20 05/20/21 Unknown History loratadine 10 mg tablet 10 mg PO DAILY 04/25/20 05/20/21 10/21/20 History montelukast 10 mg tablet 10 mg PO QAM 04/25/20 05/20/21 04/30/20 05:45 History olanzapine 7.5 mg tablet 7.5 mg PO BEDTIME 04/25/20 05/20/21 Unknown History ondansetron HCl 8 mg tablet 8 mg PO QAM 04/25/20 05/20/21 Unknown History pentosan polysulfate sodium 100 mg 100 mg PO QID 04/25/20 05/20/21 03/17/21 History capsule (Elmiron) sertraline 100 mg tablet 150 mg PO QAM 04/25/20 05/20/21 05/26/21 History trazodone 150 mg tablet 300 mg PO BEDTIME 04/25/20 05/20/21 Unknown History adalimumab 40 mg/0.4 mL 40 mg SUBCUT ONCE 06/21/20 05/20/21 Unknown History subcutaneous pen kit Exam Exam Date and Time: May 23, 2021 1222 Height,Weight and Vital Signs: Height 5 ft 5 in Weight 77.111 kg Assessment and Plan Assessment Anesthesia Assessment: Chart Reviewed Documented by User: Vinay Dario 05/26/21 07:07 HPI - Anesthesia Eval Consult details Narrative: 56yo F for Cystoscopy Hydrodistention of Bladder last Cystoscopy Hydrodistention of Bladder 03/2021 with GA-LMA 4 Recent SVT , on metoprolol , took this AM . [facility] Past Medical History Medical History Asthma Back pain Depression Elevated cholesterol History of anxiety History of gastrostomy tube placement Hx of cystitis Hx of ulcerative colitis Lab test negative for COVID-19 virus SVT (supraventricular tachycardia) Functional capacity: independent ambulation Family History Family history of problems with anesthesia: No Surgical History Surgical History (Updated 05/20/21 @ 10:12 by Matilda Aponte RN) History of bladder surgery History of Problems with Anesthesia: No Social History Social History Are you a primary healthcare science specialist to a significant other at home: No Do you presently have visiting nurse or other home services: No Patient Tobacco Use Status: Current everyday Tobacco user Tobacco use type: Cigarette Cigarettes Per Day: 6 Years Smoked: 20 Use of substances other than those prescribed or required for medical reasons: No Have you been hit, kicked, punched, or otherwise hurt by someone within the past year? If so, by whom?: No Are you DNR?: No Advance Directives: No Advance Directives Information Provided: Yes Advance Directives on File: No Recently lost weight without trying: No Eating poorly because of decreased appetite: No Nutrition Risks: No Nutritional Risk Meds Allergies Allergy/AdvReac Type Severity Reaction Status Date / Time amoxicillin [From AUGMENTIN] Allergy Severe SEVERE Verified 01/30/21 13:11 DIARRHEA clavulanic acid Allergy Severe SEVERE Verified 01/30/21 13:11 [From AUGMENTIN] DIARRHEA Nnqavfg-TMA-BbN Reductase Allergy Intermediate muscle Verified 01/30/21 13:11 Inhibitor aches, [[id number] REDUCTASE cramps INHIBITOR] acetaminophen [ACETAMINOPHEN] AdvReac Severe GI upset. Verified 01/30/21 13:11 Pt confirmed NOT allergic to oxycodone Home Medications Medication Instructions Recorded Confirmed Last Taken Type albuterol sulfate 90 mcg/actuation 2 puff INHALATION Q4-6H PRN 04/25/20 05/20/21 Unknown History aerosol inhaler (ProAir HFA) carisoprodol 350 mg tablet 350 mg PO BID 04/25/20 05/20/21 03/17/21 History clonazepam 0.5 mg tablet 0.5 mg PO BID 04/25/20 05/20/21 05/26/21 History clonazepam 0.5 mg tablet 1 mg PO BEDTIME 04/25/20 05/20/21 Unknown History ezetimibe 10 mg tablet 10 mg PO QAM 04/25/20 05/20/21 Unknown History fluticasone propionate 110 1 puff INHALATION BID 04/25/20 05/20/21 Unknown History mcg/actuation HFA aerosol inhaler folic acid 1 mg tablet 1 mg PO DAILY 04/25/20 05/20/21 Unknown History loratadine 10 mg tablet 10 mg PO DAILY 04/25/20 05/20/21 10/21/20 History montelukast 10 mg tablet 10 mg PO QAM 04/25/20 05/20/21 04/30/20 05:45 History olanzapine 7.5 mg tablet 7.5 mg PO BEDTIME 04/25/20 05/20/21 Unknown History ondansetron HCl 8 mg tablet 8 mg PO QAM 04/25/20 05/20/21 Unknown History pentosan polysulfate sodium 100 mg 100 mg PO QID 04/25/20 05/20/21 03/17/21 History capsule (Elmiron) sertraline 100 mg tablet 150 mg PO QAM 04/25/20 05/20/21 05/26/21 History trazodone 150 mg tablet 300 mg PO BEDTIME 04/25/20 05/20/21 Unknown History adalimumab 40 mg/0.4 mL 40 mg SUBCUT ONCE 06/21/20 05/20/21 Unknown History subcutaneous pen kit Exam Airway Mallampati Class: II TM Dist: >3cm Neck ROM: Full Loose/Missing/Broken Teeth: Yes (Missing and chipped teeth ) Heart: rrr Lungs: bl breath sounds Assessment and Plan Final Anesthetic Review Family History of Problems with Anesthesia: No History of Problems with Anesthesia: No NPO: Yes ASA Class: II Final Preanesthetic Review: Meds/Allgs Chart Reviewed Patient Risk: Intermediate Procedure Risk: Intermediate Anesthetic Plan Anesthetic Plan: GA Disposition: Standard PACU
[2021-05-26 06:37] VITALS: BP 108/65; PULSE 63; RESP 16; TEMP 36.6; O2SAT 95
[2021-05-26] MEDS: levoFLOXacin 500 MG TABLET PO (07:34)
--- NOTE | 2021-05-26 08:02 | W.PM.OPN ---
Operative Note Operative Note Date of Service: 05/26/21 Narrative: PreOperative Diagnosis:? Interstitial cystitis Post Operative Diagnosis:? Interstitial cystitis Procedure:? Cystoscopy with hydrodistention Surgeon: Dr Mk Cornelius Anesthesia:? Heavy sedation Indications for procedure: Longstanding interstitial cystitis Has good response to hydrodistention Presents today for repeat hydrodistention Procedure: After informed consent was verified the patient was brought to the operating room and placed in a supine position.? anesthesia was administered per protocol. Her bladder was emptied with a straight catheter.? 10 cc of lidocaine jelly with 10 cc of 0.5% bupivacaine were instilled for postprocedure pain management. She was prepped and draped in sterile fashion.? Safety pause time-out was performed. Twenty-two Indonesian cystoscope inserted.? Bladder was examined.? Bladder was filled and allowed to remain filled under pressure for 1 minutes.? Bladder noted to have moderate trabeculation with post filling glomerulation Total amount in 1st filling 900cc. Total amount on 2nd filling 1000 cc. Her bladder was emptied.? A 2nd administration of lidocaine jelly in bupivacaine was placed inside of bladder for postprocedure pain management. a belladonna suppository was placed for postprocedure pain management. She tolerated procedure well was transferred in stable condition to the recovery area
[2021-05-26 08:09] VITALS: BP 153/80; PULSE 77; RESP 12; TEMP 36.2; O2SAT 100
[2021-05-26 08:14] VITALS: BP 138/70; PULSE 71; RESP 16; O2SAT 100
[2021-05-26 08:18] VITALS: BP 115/50; PULSE 79; RESP 16; O2SAT 98
[2021-05-26 08:22] VITALS: BP 123/64; PULSE 70; RESP 1; O2SAT 98
[2021-05-26 08:39] VITALS: BP 117/63; PULSE 69; RESP 18; TEMP 36.2; O2SAT 98
[2021-05-26] MEDS: oxyCODONE HCl Immed Release 5 MG TABLET PO (08:45)
== END 2021-05-26 09:41 | disposition home or self-care (01) ==
PROVIDERS: PCP Internal Medicine; Visit Provider Urology
PROC: 0T7B7ZZ Dilation of Bladder, Via Natural or Artificial Opening (ICD-10-PCS; CPT 52260; principal; 2021-05-26 07:30)
DX: N30.10 Interstitial cystitis (chronic) without hematuria (principal); Z87.19 Personal history of other diseases of the digestive system; I47.1 Supraventricular tachycardia; J45.909 Unspecified asthma, uncomplicated; E78.00 Pure hypercholesterolemia, unspecified; Z79.899 Other long term (current) drug therapy; Z88.0 Allergy status to penicillin; Z88.1 Allergy status to other antibiotic agents; Z88.8 Allergy status to other drugs, medicaments and biological substances; F17.210 Nicotine dependence, cigarettes, uncomplicated
CPT/HCPCS: 52260; J1100; J2250; J2405

== ENCOUNTER → 2021-06-05 09:02 | Outpatient (BNVA) | payer OTHER, SELFPAY | PROVIDERS: PCP Internal Medicine; Visit Provider Urology | DX: N30.10 Interstitial cystitis (chronic) without hematuria (principal); N32.89 Other specified disorders of bladder | CPT/HCPCS: Q3014 ==

== ENCOUNTER → 2021-08-08 08:36 | Outpatient (BNVA) | payer OTHER, SELFPAY | PROVIDERS: PCP Internal Medicine | DX: Z13.89 Encounter for screening for other disorder (principal) | CPT/HCPCS: Q3014 ==

== ENCOUNTER 2021-08-11 07:02 | Day surgery (SDC) | payer OTHER, SELFPAY ==
[2021-08-05 15:40] VITALS: BMI 27.4
--- NOTE | 2021-08-08 11:52 | HO.ANESPROP2 ---
Documented by User: Maureen Boyd NP 08/08/21 11:55 HPI - Anesthesia Eval Consult details Narrative: 56yo F for Cystoscopy Hydrodistention of Bladder s/p same 05/2021 with GA-LMA 4 PMFSH Active Problems Active Problems: All Active Problems (Updated 03/17/21 @ 08:12 by Rand Chu RN) Interstitial cystitis (Acute) Bladder spasm (Acute) Past Medical History Medical History Asthma Back pain Depression Elevated cholesterol History of anxiety History of gastrostomy tube placement Hx of cystitis Hx of ulcerative colitis Lab test negative for COVID-19 virus SVT (supraventricular tachycardia) Family History Family history of problems with anesthesia: No Surgical History Surgical History History of bladder surgery History of Problems with Anesthesia: No Social History Social History Are you a primary health care marketing specialist to a significant other at home: No Do you presently have visiting nurse or other home services: No Patient Tobacco Use Status: Current everyday Tobacco user Tobacco use type: Cigarette Cigarettes Per Day: 6 Years Smoked: 20 Meds Allergies Allergy/AdvReac Type Severity Reaction Status Date / Time amoxicillin [From AUGMENTIN] Allergy Severe SEVERE Verified 08/08/21 08:42 DIARRHEA clavulanic acid Allergy Severe SEVERE Verified 08/08/21 08:42 [From AUGMENTIN] DIARRHEA Djsreia-JZG-ObT Reductase Allergy Intermediate muscle Verified 08/08/21 08:42 Inhibitor aches, [[id number]-[id number]-GOY REDUCTASE cramps INHIBITOR] acetaminophen [ACETAMINOPHEN] AdvReac Severe GI upset. Verified 08/08/21 08:42 Pt confirmed NOT allergic to oxycodone Home Medications Medication Instructions Recorded Confirmed Last Taken Type albuterol sulfate 90 mcg/actuation 2 puff INHALATION Q4-6H PRN 04/25/20 08/05/21 08/11/21 History aerosol inhaler (ProAir HFA) clonazepam 0.5 mg tablet 1 mg PO BEDTIME 04/25/20 08/05/21 Unknown History ezetimibe 10 mg tablet 10 mg PO QAM 04/25/20 08/05/21 Unknown History fluticasone propionate 110 1 puff INHALATION BID 04/25/20 08/05/21 Unknown History mcg/actuation HFA aerosol inhaler loratadine 10 mg tablet 10 mg PO DAILY 04/25/20 08/05/21 10/21/20 History montelukast 10 mg tablet 10 mg PO QAM 04/25/20 08/05/21 08/11/21 History olanzapine 7.5 mg tablet 7.5 mg PO BEDTIME 04/25/20 08/05/21 Unknown History sertraline 100 mg tablet 150 mg PO QAM 04/25/20 08/05/21 08/11/21 History trazodone 150 mg tablet 300 mg PO BEDTIME 04/25/20 08/05/21 Unknown History adalimumab 40 mg/0.4 mL 40 mg SUBCUT ONCE 06/21/20 08/05/21 Unknown History subcutaneous pen kit baclofen 10 mg tablet 10 mg PO BID 08/08/21 Unknown History clonazepam 1 mg tablet 1 mg PO BEDTIME 08/08/21 Unknown History dicyclomine 20 mg tablet 20 mg PO QID 08/08/21 Unknown History metoprolol succinate 25 mg 12.5 mg PO DAILY 08/08/21 08/11/21 History tablet,extended release 24 hr Exam Exam Date and Time: August 08, 2021 1152 Height,Weight and Vital Signs: Height 5 ft 5 in Weight 74.843 kg Assessment and Plan Assessment Anesthesia Assessment: Chart Reviewed Final Anesthetic Review Family History of Problems with Anesthesia: No History of Problems with Anesthesia: No Documented by User: Vinay Bishop MD 08/11/21 16:11 [facility] Past Medical History Medical History Asthma Back pain Depression Elevated cholesterol History of anxiety History of gastrostomy tube placement Hx of cystitis Hx of ulcerative colitis Lab test negative for COVID-19 virus SVT (supraventricular tachycardia) Surgical History Surgical History History of bladder surgery Social History Social History Are you a primary health care marketing specialist to a significant other at home: No Do you presently have visiting nurse or other home services: No Patient Tobacco Use Status: Current everyday Tobacco user Tobacco use type: Cigarette Cigarettes Per Day: 6 Years Smoked: 20 Meds Allergies Allergy/AdvReac Type Severity Reaction Status Date / Time amoxicillin [From AUGMENTIN] Allergy Severe SEVERE Verified 08/08/21 08:42 DIARRHEA clavulanic acid Allergy Severe SEVERE Verified 08/08/21 08:42 [From AUGMENTIN] DIARRHEA Jakzkzw-PDG-OiK Reductase Allergy Intermediate muscle Verified 08/08/21 08:42 Inhibitor aches, [[id number] REDUCTASE cramps INHIBITOR] acetaminophen [ACETAMINOPHEN] AdvReac Severe GI upset. Verified 08/08/21 08:42 Pt confirmed NOT allergic to oxycodone Home Medications Medication Instructions Recorded Confirmed Last Taken Type albuterol sulfate 90 mcg/actuation 2 puff INHALATION Q4-6H PRN 04/25/20 08/05/21 08/11/21 History aerosol inhaler (ProAir HFA) clonazepam 0.5 mg tablet 1 mg PO BEDTIME 04/25/20 08/05/21 Unknown History ezetimibe 10 mg tablet 10 mg PO QAM 04/25/20 08/05/21 Unknown History fluticasone propionate 110 1 puff INHALATION BID 04/25/20 08/05/21 Unknown History mcg/actuation HFA aerosol inhaler loratadine 10 mg tablet 10 mg PO DAILY 04/25/20 08/05/21 10/21/20 History montelukast 10 mg tablet 10 mg PO QAM 04/25/20 08/05/21 08/11/21 History olanzapine 7.5 mg tablet 7.5 mg PO BEDTIME 04/25/20 08/05/21 Unknown History sertraline 100 mg tablet 150 mg PO QAM 04/25/20 08/05/21 08/11/21 History trazodone 150 mg tablet 300 mg PO BEDTIME 04/25/20 08/05/21 Unknown History adalimumab 40 mg/0.4 mL 40 mg SUBCUT ONCE 06/21/20 08/05/21 Unknown History subcutaneous pen kit baclofen 10 mg tablet 10 mg PO BID 08/08/21 Unknown History clonazepam 1 mg tablet 1 mg PO BEDTIME 08/08/21 Unknown History dicyclomine 20 mg tablet 20 mg PO QID 08/08/21 Unknown History metoprolol succinate 25 mg 12.5 mg PO DAILY 08/08/21 08/11/21 History tablet,extended release 24 hr Exam Airway Mallampati Class: II TM Dist: >3cm Neck ROM: Full Loose/Missing/Broken Teeth: Yes (Chipped and poor dentation ) Heart: rrr Lungs: bl breath sounds Assessment and Plan Assessment Anesthesia Assessment: Anesthesia Plan Discussed Final Anesthetic Review NPO: Yes ASA Class: III Final Preanesthetic Review: No Changes in Pt Med Stat, Meds/Allgs Chart Reviewed, Consent Obtained/Reviewed and Anes Risks/Benef Reviewed Patient Risk: Intermediate Procedure Risk: Intermediate Anesthetic Plan Anesthetic Plan: GA Disposition: Standard PACU
[2021-08-11] VITALS (7 sets, daily range): BP systolic 125–158; BP diastolic 69–84; PULSE 64–80; RESP 16–18; TEMP 36.2–36.6; O2SAT 96–99
[2021-08-11] MEDS: Lactated Ringers 1,000 ML 100 ML IVCONT (07:38)
[2021-08-11] MEDS: levoFLOXacin 500 MG TABLET PO (07:42)
--- NOTE | 2021-08-11 08:21 | MHC.SHP ---
Pre-Procedural Eval Section A Date of Service: 08/11/21 The patient is an INPATIENT: No Changes since office visit: No Cold of Flu in the past 2 weeks, No New Medical Problems, No Changes in Medication and No Patient answered all questions The History & Physical has been completed within 30 days and I have reviewed it.: Yes Section B Chief Complaint: cystitis Allergies: Allergies Allergy/AdvReac Type Severity Reaction Status Date / Time amoxicillin [From AUGMENTIN] Allergy Severe SEVERE Verified 08/08/21 08:42 DIARRHEA clavulanic acid Allergy Severe SEVERE Verified 08/08/21 08:42 [From AUGMENTIN] DIARRHEA Cxlbvrk-NWK-UbC Reductase Allergy Intermediate muscle Verified 08/08/21 08:42 Inhibitor aches, [XETCICO-CPM-GUU REDUCTASE cramps INHIBITOR] acetaminophen [ACETAMINOPHEN] AdvReac Severe GI upset. Verified 08/08/21 08:42 Pt confirmed NOT allergic to oxycodone Plan Diagnosis/Plan: Unchanged ( interstitial cystitis. Here for cystoscopy, hydrodistention.) I have reviewed the history and physical and performed a pertinent physical examination on my patient. No changes have occurred unless specified.
--- NOTE | 2021-08-11 09:02 | W.PM.OPN ---
Operative Note Operative Note Date of Service: 08/11/21 Narrative: PreOperative Diagnosis: Interstitial cystitis with pelvic pain Post Operative Diagnosis: Interstitial cystitis with pelvic pain Procedure: Hydrodistention Surgeon: Dr Mk Cornelius Anesthesia: General Indications for procedure: Longstanding interstitial cystitis. Responds well to hydrodistention. Procedure: After informed consent was verified the patient was brought to the operating room and placed in a supine position. Anesthesia was administered per protocol. The patient was placed in a modified dorsal lithotomy position and prepped and draped in sterile fashion. Safety pause time-out was observed. Antibiotics being given. A 22 [place] cystoscope was used to empty the bladder. A mixture of bupivacaine lidocaine gel 20 cc was instilled into the bladder and allowed to sit for 2-3 minutes. A belladonna and opiate rectal suppository was placed. Hydrodistention of the bladder was performed. The bladder was filled and allowed to sit for 2 minutes. Filling was from a height of 1 m. On the 1st fill there was Eight hundred fifty cc within the bladder. Cystoscopy revealed glomerulations consistent with interstitial cystitis. Second filling of the bladder was performed in similar fashion. Bladder biopsies were performed and fulguration used for control. Volume was approximately 900 cc. Terminal hematuria noted. The the bladder was emptied. The patient tolerated procedure well was extubated in operating room transferred in stable condition to the recovery area. Appropriate postprocedure pain medication was provided. Pathology: none Drains: None
[2021-08-11] MEDS: Phenazopyridine HCL 100 MG TABLET PO (09:44)
[2021-08-11] MEDS: oxyCODONE HCl Immed Release 5 MG TABLET PO (09:45)
== END 2021-08-11 10:44 | disposition home or self-care (01) ==
PROVIDERS: PCP Internal Medicine; Visit Provider Urology
PROC: 0T7B7ZZ Dilation of Bladder, Via Natural or Artificial Opening (ICD-10-PCS; CPT 52260; principal; 2021-08-11 08:20)
DX: N30.10 Interstitial cystitis (chronic) without hematuria (principal); N32.89 Other specified disorders of bladder; Z93.1 Gastrostomy status; I47.1 Supraventricular tachycardia; J45.909 Unspecified asthma, uncomplicated; M54.9 Dorsalgia, unspecified; F32.9 Major depressive disorder, single episode, unspecified; Z79.899 Other long term (current) drug therapy; Z79.51 Long term (current) use of inhaled steroids; Z88.0 Allergy status to penicillin; Z88.1 Allergy status to other antibiotic agents; F17.210 Nicotine dependence, cigarettes, uncomplicated
CPT/HCPCS: 52260; J1100; J2250; J2405; J3010

== ENCOUNTER → 2021-08-28 10:30 | Outpatient (BNVA) | payer OTHER, SELFPAY | PROVIDERS: PCP Internal Medicine; Visit Provider Urology | DX: N30.10 Interstitial cystitis (chronic) without hematuria (principal); N32.89 Other specified disorders of bladder | CPT/HCPCS: Q3014 ==

== ENCOUNTER 2021-10-11 12:27 | Emergency (ER) | payer OTHER, SELFPAY ==
--- NOTE | ~2021-10-11 | CT_ITS ---
EXAMINATION: CT ABDOMEN AND PELVIS WITH CONTRAST CLINICAL INFORMATION: Lower abdominal pain. COMPARISON: Pelvic MRI dated 09/12/[address] abdomen/pelvis dated 08/02/2007. TECHNIQUE: Multidetector volumetric images were obtained from the superior aspect of the liver through the pubic symphysis following administration 85 mL of Omnipaque 350 intravenous contrast. Sagittal and coronal reformatted images were obtained on the technologist's workstation. Oral contrast: No This CT examination was performed using dose optimization techniques as appropriate, variously including the following: *Automated exposure control *Adjustment of mA and/or kV according to patient size (this includes techniques or standardized protocols for targeted exams where dose is matched to indication/reason for exam; i.e. extremities or head) *Use of iterative reconstruction technique DLP: 628 mGy-cm FINDINGS: LUNG BASES: The visualized lung bases are unremarkable. LIVER, GALLBLADDER, AND BILIARY TREE: The liver is normal in size, shape, and attenuation. No focal hepatic lesion or biliary ductal dilatation is present. Gallstone measuring up to 0.4 cm in the region of the gallbladder neck. No adjacent inflammatory change. PANCREAS: Unremarkable. SPLEEN: Unremarkable. ADRENAL GLANDS: Unremarkable. KIDNEYS AND URETERS: The kidneys are normal in size, shape, and attenuation. No hydronephrosis, hydroureter, or calculi seen. The demonstration of a simple right upper pole renal cyst. Findings are not clinically significant and no follow-up imaging is recommended. No perinephric stranding. BLADDER: Nondistended and unremarkable. GASTROINTESTINAL TRACT: No bowel wall thickening or associated inflammatory change. No small or large bowel obstruction. Unremarkable appendix. PERITONEAL CAVITY: No intra-abdominal free air or free fluid. No intra-abdominal mass or organized fluid collection/abscess formation. ABDOMINAL WALL: No significant hernia is appreciated. LYMPH NODES: Normal. VASCULAR: Unremarkable. PELVIC VISCERA: The uterus and adnexa are unremarkable. OSSEOUS STRUCTURES: Age-indeterminate superior endplate compression deformity at T12. CT/CT abdomen pelvis w con IMPRESSION: 1. Cholelithiasis without evidence of acute cholecystitis. No intrahepatic or extrahepatic biliary ductal dilatation. 2. No intra-abdominal mass, lymphadenopathy, or ascites. 3. No bowel wall thickening or inflammatory change. No small or large bowel obstruction. Unremarkable appendix. 4. Age-indeterminate compression deformity at T12. Fleischner guidelines were followed.
[2021-10-11 13:01] VITALS: BP 125/74; PULSE 81; RESP 20; TEMP 37; O2SAT 95; BMI 26.9
--- NOTE | 2021-10-11 16:00 | ED.ABDPAIN ---
HPI - Abdominal Pain General Chief Complaint: Abdominal Pain Stated Complaint: Lower Abd Pain Time Seen by Provider: 10/11/21 15:59 Source: patient Mode of arrival: ambulatory Limitations: no limitations History of Present Illness HPI narrative: 56-year-old female past medical history significant for bladder spasms, interstitial cystitis, anxiety, depression, asthma presenting to the emergency department with complaints of left and right lower quadrant pain x4 days progressively worsening. Patient tells me that she is followed by Dr. Cornelius for interstitial cystitis and she is scheduled to have a procedure on October 20 however she tells me the pain is so bad she does not think she can make it until that day with on pain medicine. Patient tells me she is also having urinary frequency however no dysuria, fevers or chills. Patient tells me this feels like her interstitial cystitis pain however it is worse. She denies chest pain, shortness of breath, fevers, chills, nausea, vomiting, back pain, changes in bowel habits. MD elicited complaint: abdominal pain Pertinent past history: none Onset (ago): day(s) (4) Pain Consistency: constant Location: RLQ and LLQ Severity: moderate Radiation: none Migration to: no migration Exacerbating factors: nothing Relieving factors: nothing Associated symptoms: denies other symptoms Related Data Home Medications Medication Instructions Recorded Confirmed albuterol sulfate 90 mcg/actuation 2 puff INHALATION Q4-6H PRN 04/25/20 08/05/21 aerosol inhaler (ProAir HFA) clonazepam 0.5 mg tablet 1 mg PO BEDTIME 04/25/20 08/05/21 ezetimibe 10 mg tablet 10 mg PO QAM 04/25/20 08/05/21 fluticasone propionate 110 1 puff INHALATION BID 04/25/20 08/05/21 mcg/actuation HFA aerosol inhaler loratadine 10 mg tablet 10 mg PO DAILY 04/25/20 08/05/21 montelukast 10 mg tablet 10 mg PO QAM 04/25/20 08/05/21 olanzapine 7.5 mg tablet 7.5 mg PO BEDTIME 04/25/20 08/05/21 sertraline 100 mg tablet 150 mg PO QAM 04/25/20 08/05/21 trazodone 150 mg tablet 300 mg PO BEDTIME 04/25/20 08/05/21 adalimumab 40 mg/0.4 mL 40 mg SUBCUT ONCE 06/21/20 08/05/21 subcutaneous pen kit baclofen 10 mg tablet 10 mg PO BID 08/08/21 clonazepam 1 mg tablet 1 mg PO BEDTIME 08/08/21 dicyclomine 20 mg tablet 20 mg PO QID 08/08/21 metoprolol succinate 25 mg 12.5 mg PO DAILY 08/08/21 tablet,extended release 24 hr Previous Rx's Medication Instructions Recorded pentosan polysulfate sodium 100 mg 200 mg PO BID 30 Days #120 cap 12/24/20 capsule (Elmiron) diazepam 10 mg tablet See Rx Instructions .ROUTE BEDTIME 08/08/21 30 Days #20 tab oxycodone 5 mg capsule 5 mg PO Q8H PRN 3 Days #20 cap 08/11/21 morphine 15 mg immediate release 15 mg PO BID PRN #6 tab 10/11/21 tablet Allergies Allergy/AdvReac Type Severity Reaction Status Date / Time amoxicillin [From AUGMENTIN] Allergy Severe SEVERE Verified 08/08/21 08:42 DIARRHEA clavulanic acid Allergy Severe SEVERE Verified 08/08/21 08:42 [From AUGMENTIN] DIARRHEA Yqbaaex-DTW-EoM Reductase Allergy Intermediate muscle Verified 08/08/21 08:42 Inhibitor aches, [[id number] REDUCTASE cramps INHIBITOR] acetaminophen [ACETAMINOPHEN] AdvReac Severe GI upset. Verified 08/08/21 08:42 Pt confirmed NOT allergic to oxycodone Review of Systems Review of Systems Constitutional : No Weight loss, No Fever, No Chills, No Fatigue, No Malaise ENT/Mouth : No sore throat, No Rhinorrhea Eyes: No Eye Pain, No Swelling, No Redness Cardiovascular : No Chest Pain, No SOB, No Dyspnea on Exertion, No Orthopnea, No Edema, No Palpitations Respiratory : No Cough, No Sputum, No Wheezing Gastrointestinal : No Nausea, No Vomiting, No Diarrhea, No Constipation, + abdominal Pain, No Hematochezia, No Melena Genitourinary : No Dysuria, + Urinary Frequency, No Hematuria, Musculoskeletal : No joint pain, No Myalgias, No Joint Swelling Skin : No Skin Lesions, No rash Neuro : No Weakness, No Numbness, No Dizziness, No Headache Psych : No Anxiety/Panic, No Depression All other systems reviewed and are negative Yes all other systems are reviewed and are negative [facility] Past Medical History Attestation statement: The following information was validated with the patient. Source: old records reviewed and nursing notes reviewed Medical History Asthma Back pain Depression Elevated cholesterol History of anxiety History of gastrostomy tube placement Hx of cystitis Hx of ulcerative colitis Lab test negative for COVID-19 virus SVT (supraventricular tachycardia) Surgical History History of bladder surgery Social History Social History Are you a primary childcare administrator to a significant other at home: No Do you presently have visiting nurse or other home services: No Patient Tobacco Use Status: Current everyday Tobacco user Tobacco use type: Cigarette Cigarettes Per Day: 6 Years Smoked: 20 Advance Directives: Yes Advance Directives Information Provided: Yes Advance Directives on File: No Patient : No Physical Exam ED Vital Signs: Vital Signs - 24 hr 10/11/21 13:01 10/11/21 16:39 Temperature 98.6 F 97.9 F Pulse Rate 81 68 Respiratory Rate 20 16 Blood Pressure 125/74 123/73 Pulse Oximetry 95 94 BMI result Body Mass Index 26.9 VSS Appearance: Alert.? Oriented X3.? No acute distress.? Head: Normocephalic, atraumatic, no step-offs or deformities Eyes: Pupils equal, round and reactive to light.? ENT: Pharynx normal.? Neck: Normal inspection.? Neck supple.? CVS: Normal heart rate and rhythm.? Pulses normal.? Respiratory: No respiratory distress.? Breath sounds normal.? Abdomen: Soft and nontender.? Skin: Skin warm and dry.? Normal skin color.? Normal skin turgor.? Extremities: No lower extremity edema.? No calf ttp. 5/5 strength to bilateral upper and lower extremities Back: No midline tenderness, no C-spine tenderness, full range of motion, no CVA tenderness bilaterally Neuro: Oriented X 3.? No motor deficit.? No sensory deficit. CN 2-12 intact Course Reevaluation(s) Reevaluation #1: Patient's CBC appears to be around her baseline. No acute electrolyte abnormalities requiring intervention. Bladder scan [address] of the abdomen pelvis with cholelithiasis without evidence of acute cholecystitis. No intra-abdominal mass lymphadenopathy or ascites. No bowel wall thickening or inflammatory changes. Compression deformity to T12. Discussed these results with patient. At this time patient will be discharged home likely interstitial cystitis causing patient's discomfort. Will give her short supply opiates for home. Educated on addiction. At this time I feel comfortable discharge home with urology follow-up. Comfortable discharge home Time: 17:59 Reevaluation #2: UA clean MDM - Abdominal Pain MDM Narrative Medical decision making narrative: 1604 56 yo female presents w/ lower abd pain X4 days worsening. PE w/ pain to palpation to LLQ and RLQ. Negative psoas and obturator. RRR. Lungs clear. Neuro nonfocal. Plan at this time is labs, imaging, urine. Medical Records Attestation: I reviewed the patient's medical records. Lab Data Attestation: I reviewed the patient's lab results. Result diagrams: 10/11/21 16:21 10/11/21 16:21 Labs: Lab Results 10/11/21 10/11/21 10/11/21 Range/Units 16:21 16:21 16:21 WBC 6.9 (4.8-10.8) X10*3/uL RBC 4.14 L (4.20-5.50) X10*6/uL Hgb 11.9 L (12.0-16.0) g/dl Hct 36.6 L (37.0-47.0) % MCV 88.4 (80.0-98.0) fL MCH 28.7 (27.0-33.0) pg MCHC 32.5 (31.0-35.0) g/dl RDW 15.6 (11.0-16.0) % Plt Count 215 (160-400) X10*3/uL MPV 9.6 (9.4-12.3) fL Immature Gran % (Auto) 0.4 (0.0-0.4) % Neut % (Auto) 43.4 L (45-73) % Lymph % (Auto) 45.3 H (20-40) % Grainger % (Auto) 9.1 (2-11) % Eos % (Auto) 1.4 (0-4) % Baso % (Auto) 0.4 (0-2) % Lymph # (Auto) 3.1 (1.2-4.9) X10*3/uL Grainger # (Auto) 0.6 (0.1-1.2) X10*3/uL Eos # (Auto) 0.1 (0.0-0.4) X10*3/uL Baso # (Auto) 0.0 (0.0-0.2) X10*3/uL Abs Immat Gran (auto) 0.03 (0.00-0.03) X10*3/uL Absolute Neuts (auto) 3.0 (2.0-8.3) x10*3/uL Absolute Nucleated RBC 0.000 (0.0-0.012) X10*3/uL Nucleated RBC % (auto) 0.0 (0.0-0.2) /100WBC Sodium 139 (135-145) mmol/L Potassium 3.8 (3.3-5.1) mmol/L Chloride 102 (96-108) mmol/L Carbon Dioxide 29 (22-29) mmol/L Anion Gap 12 (12-20) BUN 14 (9-16) mg/dL Creatinine 0.85 (0.5-1.4) mg/dL Estim Creat Clear Calc 74.1 Estimated GFR > 60 Random Glucose 91 (60-115) mg/dL Calcium 9.3 (8.4-10.2) mg/dL Magnesium 1.9 (1.6-2.6) mg/dL Total Bilirubin 0.4 (0.0-1.0) mg/dL AST 21 (5-31) U/L ALT 14 (0-31) U/L Alkaline Phosphatase 110 (39-117) U/L Total Protein 6.5 (6.5-8.0) g/dL Albumin 3.8 (3.5-5.0) g/dL Lipase 21 (8-78) U/L Urine Color YELLOW Urine Appearance CLEAR Urine pH 5.5 (5.0-8.0) Ur Specific [place] <= 1.005 (1.005-1.025) Urine Protein NEG (NEG-TRACE) MG/DL Urine Glucose (UA) NEG (NEG) MG/DL Urine Ketones NEG (NEG) MG/DL Urine Blood NEG (NEG) Urine Nitrite NEG (NEG) Ur Leukocyte Esterase NEG (NEG) COVID-19 (FATEMEH) (Negative) COVID-19 Clin Com 10/11/21 Range/Units 16:21 WBC (4.8-10.8) X10*3/uL RBC (4.20-5.50) X10*6/uL Hgb (12.0-16.0) g/dl Hct (37.0-47.0) % MCV (80.0-98.0) fL MCH (27.0-33.0) pg MCHC (31.0-35.0) g/dl RDW (11.0-16.0) % Plt Count (160-400) X10*3/uL MPV (9.4-12.3) fL Immature Gran % (Auto) (0.0-0.4) % Neut % (Auto) (45-73) % Lymph % (Auto) (20-40) % Grainger % (Auto) (2-11) % Eos % (Auto) (0-4) % Baso % (Auto) (0-2) % Lymph # (Auto) (1.2-4.9) X10*3/uL Grainger # (Auto) (0.1-1.2) X10*3/uL Eos # (Auto) (0.0-0.4) X10*3/uL Baso # (Auto) (0.0-0.2) X10*3/uL Abs Immat Gran (auto) (0.00-0.03) X10*3/uL Absolute Neuts (auto) (2.0-8.3) x10*3/uL Absolute Nucleated RBC (0.0-0.012) X10*3/uL Nucleated RBC % (auto) (0.0-0.2) /100WBC Sodium (135-145) mmol/L Potassium (3.3-5.1) mmol/L Chloride (96-108) mmol/L Carbon Dioxide (22-29) mmol/L Anion Gap (12-20) BUN (9-16) mg/dL Creatinine (0.5-1.4) mg/dL Estim Creat Clear Calc Estimated GFR Random Glucose (60-115) mg/dL Calcium (8.4-10.2) mg/dL Magnesium (1.6-2.6) mg/dL Total Bilirubin (0.0-1.0) mg/dL AST (5-31) U/L ALT (0-31) U/L Alkaline Phosphatase (39-117) U/L Total Protein (6.5-8.0) g/dL Albumin (3.5-5.0) g/dL Lipase (8-78) U/L Urine Color Urine Appearance Urine pH (5.0-8.0) Ur Specific [place] (1.005-1.025) Urine Protein (NEG-TRACE) MG/DL Urine Glucose (UA) (NEG) MG/DL Urine Ketones (NEG) MG/DL Urine Blood (NEG) Urine Nitrite (NEG) Ur Leukocyte Esterase (NEG) COVID-19 (FATEMEH) Negative (Negative) COVID-19 Clin Com See Note Critical Care Time Critical Care Time Critical Care Time: No Discharge Plan Discharge Clinical Impression: Bladder spasm, Interstitial cystitis Patient Disposition: Home, Self-Care Instructions: Interstitial Cystitis (ED) Additional Instructions: Take your medications as prescribed. If you were prescribed antibiotics today, it is important that you take your medication to their entirety, do not skip any doses, do not finish them early. Follow-up with your primary care provider this week. Please call and follow-up with urology soon as possible. Return to the emergency department with new or worsening symptoms. Such as fevers, chills, chest pain, shortness of breath, nausea, vomiting, dizziness, headache, vision changes, lethargy In case of emergency call 911 I attest that I have reviewed patients [employer], and at the time prescribing the patient a controlled substance is appropriate based off of patients diagnosis and treatment plan. ?CT/CT abdomen pelvis w con IMPRESSION: 1. Cholelithiasis without evidence of acute cholecystitis. No intrahepatic or extrahepatic biliary ductal dilatation. ? 2. No intra-abdominal mass, lymphadenopathy, or ascites. ? 3. No bowel wall thickening or inflammatory change. No small or large bowel obstruction. Unremarkable appendix. ? 4. Age-indeterminate compression deformity at T12.? ? Fleischner guidelines were followed. Prescriptions: New morphine 15 mg tablet 15 mg PO BID PRN (Reason: pain) Qty: 6 0RF No Action Elmiron 100 mg capsule 200 mg PO BID 30 Days Qty: 120 5RF montelukast 10 mg tablet 10 mg PO QAM 0RF clonazepam 0.5 mg Tablet 1 mg PO BEDTIME 0RF fluticasone propionate 110 mcg/actuation Hfa Aerosol Inhaler 1 puff INHALATION BID 0RF olanzapine 7.5 mg Tablet 7.5 mg PO BEDTIME 0RF trazodone 150 mg tablet 300 mg PO BEDTIME 0RF albuterol sulfate [ProAir HFA] 90 mcg/actuation Hfa Aerosol Inhaler 2 puff INHALATION Q4-6H PRN (Reason: Shortness Of Breath) 0RF loratadine 10 mg Tablet 10 mg PO DAILY 0RF ezetimibe 10 mg tablet 10 mg PO QAM 0RF sertraline 100 mg Tablet 150 mg PO QAM 0RF oxycodone 5 mg capsule 5 mg PO Q8H PRN (Reason: pain) 3 Days Qty: 20 0RF adalimumab 40 mg/0.4 mL pen injector kit 40 mg subcut ONCE 0RF metoprolol succinate 25 mg tablet extended release 24 hr 12.5 mg PO DAILY 0RF clonazepam 1 mg tablet 1 mg PO BEDTIME 0RF dicyclomine 20 mg tablet 20 mg PO QID 0RF baclofen 10 mg tablet 10 mg PO BID 0RF diazepam 10 mg tablet See Rx Instructions .Route BEDTIME 30 Days Qty: 20 0RF Rx Instructions: 10 mg crushed with water-based gel per vagina bedtime; Crush tab in water based lubricant before placing Referrals: Brett Su MD [Primary Care Provider] - 1 day Mk Cornelius MD [Physician] - 2 days
[2021-10-11 16:26] LABS: MANUAL DIFF FLAG NO
[2021-10-11 16:32] LABS: Basophils Percent Auto 0.4 % (0-2); Eosinophils Absolute Auto 0.1 X10*3/uL (0.0-0.4); Eosinophils Percent Auto 1.4 % (0-4); Hematocrit 36.6 % (37.0-47.0); Hemoglobin 11.9 g/dl (12.0-16.0); Imm Gran Abs Auto 0.03 X10*3/uL (0.00-0.03); Imm Gran Pct Auto 0.4 % (0.0-0.4); Lymphocytes Absolute Auto 3.1 X10*3/uL (1.2-4.9); Lymphocytes Percent Auto 45.3 % (20-40); Mean Corpuscular HGB Conc 32.5 g/dl (31.0-35.0); Mean Corpuscular Hemoglobin 28.7 pg (27.0-33.0); Mean Corpuscular Volume 88.4 fL (80.0-98.0); Mean Platelet Volume 9.6 fL (9.4-12.3); Monocytes Absolute Auto 0.6 X10*3/uL (0.1-1.2); Monocytes Percent Auto 9.1 % (2-11); Neutrophils Percent Auto 43.4 % (45-73); Platelet Count 215 X10*3/uL (160-400); Red Blood Count 4.14 X10*6/uL (4.20-5.50); Red Cell Distribution Width 15.6 % (11.0-16.0); White Blood Count 6.9 X10*3/uL (4.8-10.8)
[2021-10-11] MEDS: ondansetron HCL 4 MG/2 ML VIAL IVPUSH (16:33)
[2021-10-11] MEDS: Morphine Sulfate 4 MG/ML CARTRIDGE IVPUSH (16:33)
[2021-10-11 16:39] VITALS: BP 123/73; PULSE 68; RESP 16; TEMP 36.6; O2SAT 94
[2021-10-11 16:47] LABS: Alanine Aminotransferase 14 U/L (0-31); Albumin Level 3.8 g/dL (3.5-5.0); Alkaline Phosphatase 110 U/L (39-117); Anion Gap 12 (12-20); Aspartate Amino Transferase 21 U/L (5-31); Bilirubin Total 0.4 mg/dL (0.0-1.0); Blood Urea Nitrogen 14 mg/dL (9-16); Calcium 9.3 mg/dL (8.4-10.2); Carbon Dioxide 29 mmol/L (22-29); Chloride 102 mmol/L (96-108); Creatinine Clr Calc Pharmacy 74.1; Estimated Glomerular Filt Rate > 60; Glucose Random 91 mg/dL (60-115); Lipase 21 U/L (8-78); Magnesium 1.9 mg/dL (1.6-2.6); Potassium 3.8 mmol/L (3.3-5.1); Sodium 139 mmol/L (135-145); Total Protein 6.5 g/dL (6.5-8.0)
[2021-10-11 17:03] LABS: COVID-19 Test Negative (Negative); IDNOW Serial# 55D5AD1C
[2021-10-11] MEDS: iohexoL 350 MG/ML 100 ML INFUS..BTL IV (17:23)
[2021-10-11] MEDS: hydrOXYzine HCL 25 MG TABLET PO (18:08)
[2021-10-11 18:19] LABS: Appearance Urine CLEAR; Color Urine YELLOW; Glucose Urine UA NEG (NEG); Leukocyte Esterase Urine NEG (NEG); Nitrite Urine NEG (NEG); PH 5.5 (5.0-8.0); Specific Gravity - Urine <= 1.005 (1.005-1.025); Urine Blood NEG (NEG); Urine Ketones NEG (NEG); Urine Protein NEG (NEG-TRACE)
== END 2021-10-11 19:02 | disposition home or self-care (01) ==
PROVIDERS: Physician Assistant; Emergency Provider Emergency Medicine Emergency Medical Services; PCP Internal Medicine
DX: N30.10 Interstitial cystitis (chronic) without hematuria (principal); N32.89 Other specified disorders of bladder; J45.909 Unspecified asthma, uncomplicated; Z20.822 Contact with and (suspected) exposure to COVID-19
CPT/HCPCS: 74177; 80053; 81003; 83690; 83735; 85025; 87635; 96374; 96375; 96376; 99284; J2270; J2405; Q9967

== ENCOUNTER 2021-10-20 05:51 | Day surgery (SDC) | payer OTHER, SELFPAY ==
[2021-10-20] VITALS (9 sets, daily range): BP systolic 121–146; BP diastolic 58–80; PULSE 56–67; RESP 12–18; TEMP 36.1–36.9; O2SAT 95–100; BMI 26.9; BMI 27.4
[2021-10-20] MEDS: levoFLOXacin 500 MG TABLET PO (06:36)
--- NOTE | 2021-10-20 07:13 | P.CONAN_ITS ---
[facility] Active Problems Active Problems: All Active Problems (Updated 10/11/21 @ 17:47 by MILTON Carlton) Interstitial cystitis (Acute) Bladder spasm (Acute) Past Medical History Medical History Asthma Back pain Depression Elevated cholesterol History of anxiety History of gastrostomy tube placement Hx of cystitis Hx of ulcerative colitis Lab test negative for COVID-19 virus SVT (supraventricular tachycardia) Family History Family history of problems with anesthesia: No Surgical History Surgical History History of bladder surgery History of Problems with Anesthesia: No Social History Social History Are you a primary career orientation teacher to a significant other at home: No Do you presently have visiting nurse or other home services: No Patient Tobacco Use Status: Current everyday Tobacco user Tobacco use type: Cigarette Cigarettes Per Day: 5 Years Smoked: 20 Use of substances other than those prescribed or required for medical reasons: No Are you DNR?: No Advance Directives: No Advance Directives Information Provided: Yes Recently lost weight without trying: No Meds Allergies Allergy/AdvReac Type Severity Reaction Status Date / Time amoxicillin [From AUGMENTIN] Allergy Severe SEVERE Verified 08/08/21 08:42 DIARRHEA clavulanic acid Allergy Severe SEVERE Verified 08/08/21 08:42 [From AUGMENTIN] DIARRHEA Viyypoz-RYT-YmP Reductase Allergy Intermediate muscle Verified 08/08/21 08:42 Inhibitor aches, [[id number] REDUCTASE cramps INHIBITOR] oxycodone [From Percocet] Allergy Diarrhea Verified 10/20/21 06:19 acetaminophen [ACETAMINOPHEN] AdvReac Severe GI upset. Verified 08/08/21 08:42 Pt confirmed NOT allergic to oxycodone Home Medications Medication Instructions Recorded Confirmed Last Taken Type albuterol sulfate 90 mcg/actuation 2 puff INHALATION Q4-6H PRN 04/25/20 08/05/21 08/11/21 History aerosol inhaler (ProAir HFA) clonazepam 0.5 mg tablet 1 mg PO BEDTIME 04/25/20 08/05/21 Unknown History ezetimibe 10 mg tablet 10 mg PO QAM 04/25/20 08/05/21 Unknown History fluticasone propionate 110 1 puff INHALATION BID 04/25/20 08/05/21 Unknown History mcg/actuation HFA aerosol inhaler loratadine 10 mg tablet 10 mg PO DAILY 04/25/20 08/05/21 10/21/20 History montelukast 10 mg tablet 10 mg PO QAM 04/25/20 08/05/21 08/11/21 History olanzapine 7.5 mg tablet 7.5 mg PO BEDTIME 04/25/20 08/05/21 Unknown History sertraline 100 mg tablet 150 mg PO QAM 04/25/20 08/05/21 08/11/21 History trazodone 150 mg tablet 300 mg PO BEDTIME 04/25/20 08/05/21 Unknown History adalimumab 40 mg/0.4 mL 40 mg SUBCUT ONCE 06/21/20 08/05/21 Unknown History subcutaneous pen kit baclofen 10 mg tablet 10 mg PO BID 08/08/21 Unknown History clonazepam 1 mg tablet 1 mg PO BEDTIME 08/08/21 Unknown History dicyclomine 20 mg tablet 20 mg PO QID 08/08/21 Unknown History metoprolol succinate 25 mg 12.5 mg PO DAILY 08/08/21 08/11/21 History tablet,extended release 24 hr omeprazole 20 mg tablet,delayed 20 mg PO DAILY 10/20/21 10/20/21 Unknown History release Exam Exam Date and Time: October 20, 2021 0713 Height,Weight and Vital Signs: Height 5 ft 5 in Weight 73.482 kg Last Vital Signs Temp 98.5 F 10/20/21 06:20 Pulse 61 10/20/21 06:20 Resp 18 10/20/21 06:20 BP 121/65 10/20/21 06:20 Pulse Ox 95 10/20/21 06:20 Airway Mallampati Class: II (Poor dentition) TM Dist: >3cm Neck ROM: Full Loose/Missing/Broken Teeth: No Heart: RRR Lungs: CTA Assessment and Plan Assessment Anesthesia Assessment: Anesthesia Plan Discussed Final Anesthetic Review Family History of Problems with Anesthesia: No History of Problems with Anesthesia: No ASA Class: II Final Preanesthetic Review: Meds/Allgs Chart Reviewed, Consent Obtained/Reviewed and Anes Risks/Benef Reviewed Patient Risk: Low Procedure Risk: Low Anesthetic Plan Anesthetic Plan: GA Disposition: Standard PACU
[2021-10-20] MEDS: Lactated Ringers 1,000 ML 50 ML IVCONT (07:30)
--- NOTE | 2021-10-20 07:31 | P.HPSUR_ITS ---
Pre-Procedural Eval Section A Date of Service: 10/20/21 The patient is an INPATIENT: No Changes since office visit: No Cold of Flu in the past 2 weeks, No New Medical Problems, No Changes in Medication and No Patient answered all questions The History & Physical has been completed within 30 days and I have reviewed it.: No Section B Chief Complaint: cystitis Details of Present Illness: recurrent hydrodistention bladder Relevant Family History (Specify if Yes): No Relevant Social History: None Present Medications: see Short Stay Collaborative assessment Medical History: Significant History History of Previous Operations: Relevant previous surgery/procedure and date(s) Allergies: Allergies Allergy/AdvReac Type Severity Reaction Status Date / Time amoxicillin [From AUGMENTIN] Allergy Severe SEVERE Verified 08/08/21 08:42 DIARRHEA clavulanic acid Allergy Severe SEVERE Verified 08/08/21 08:42 [From AUGMENTIN] DIARRHEA Fquairk-HBX-RlA Reductase Allergy Intermediate muscle Verified 08/08/21 08:42 Inhibitor aches, [[id number]-BYI REDUCTASE cramps INHIBITOR] oxycodone [From Percocet] Allergy Diarrhea Verified 10/20/21 06:19 acetaminophen [ACETAMINOPHEN] AdvReac Severe GI upset. Verified 08/08/21 08:42 Pt confirmed NOT allergic to oxycodone Review of Systems Sugical H&P ROS: Negative: Constitution, Cardiovascular, Respiratory, Neurological, Psychiatric, Hem-Onc, Allergic/Immunologic, Gastrointestinal, Genitourinary, Musculoskeletal, Integumentary, Endocrine and Eyes/Ears/Nose/ Throat Exam Surgical H&P Exam: Normal: HEENT, Normal: Heart, Normal: Lungs, Normal: Extremities, Normal: Abdomen, Normal: Skin and Normal: Neurological Plan Diagnosis/Plan: Unchanged ( cystoscopy, hydrodistention) I have reviewed the history and physical and performed a pertinent physical examination on my patient. No changes have occurred unless specified.
--- NOTE | 2021-10-20 08:11 | W.PM.OPN ---
Operative Note Operative Note Date of Service: 10/20/21 Narrative: PreOperative Diagnosis:? Interstitial cystitis with pelvic pain Post Operative Diagnosis:? Interstitial cystitis with pelvic pain Procedure:? Hydrodistention Surgeon: Dr Mk Cornelius Anesthesia:? General Indications for procedure: Longstanding? interstitial cystitis.? Responds well to hydrodistention. Procedure: After informed consent was verified the patient was brought to the operating room and placed in a supine position.? Anesthesia was administered per protocol.? The patient was placed in a modified dorsal lithotomy position and prepped and draped in sterile fashion.? Safety pause time-out was observed.? Antibiotics being given. A 22 Jamaican cystoscope was used to empty the bladder.? A mixture of bupivacaine lidocaine gel 20 cc was instilled into the bladder and allowed to sit for 2-3 minutes.? A belladonna and opiate rectal suppository was placed. Hydrodistention of the bladder was performed.? The bladder was filled and allowed to sit for 2 minutes.? Filling was from a height of 1 m. On the 1st fill there was 900 cc within the bladder.? Cystoscopy revealed glomerulations consistent with interstitial cystitis. Second filling of the bladder was performed in similar fashion.? Bladder biopsies were performed and fulguration used for control. Volume was approximately? 900 cc.? Terminal hematuria noted. The the bladder was emptied.? The patient tolerated procedure well was extubated in operating room transferred in stable condition to the recovery area.? Appropriate postprocedure pain medication was provided. ? Pathology: ?none Drains: None
[2021-10-20] MEDS: Phenazopyridine HCL 100 MG TABLET PO (08:35)
[2021-10-20] MEDS: fentaNYL citrate/PF 100 MCG/2 ML VIAL 25 MCG IVPUSH ×3 (08:37→08:56)
[2021-10-20] MEDS: oxyCODONE HCl Immed Release 5 MG TABLET 10 MG PO (08:48)
== END 2021-10-20 10:04 | disposition home or self-care (01) ==
PROVIDERS: PCP Internal Medicine; Visit Provider Urology
PROC: 0T7B7ZZ Dilation of Bladder, Via Natural or Artificial Opening (ICD-10-PCS; CPT 52260; principal; 2021-10-20 07:30)
DX: N30.10 Interstitial cystitis (chronic) without hematuria (principal); N32.89 Other specified disorders of bladder; R10.2 Pelvic and perineal pain; E78.00 Pure hypercholesterolemia, unspecified; J45.909 Unspecified asthma, uncomplicated; I47.1 Supraventricular tachycardia; Z79.51 Long term (current) use of inhaled steroids; Z79.899 Other long term (current) drug therapy; Z88.0 Allergy status to penicillin; Z88.1 Allergy status to other antibiotic agents; Z88.8 Allergy status to other drugs, medicaments and biological substances; F17.210 Nicotine dependence, cigarettes, uncomplicated
CPT/HCPCS: 52260; J1100; J2405; J3010

== ENCOUNTER → 2021-11-03 10:29 | Outpatient (BNVA) | payer OTHER, SELFPAY | PROVIDERS: PCP Internal Medicine | DX: Z13.89 Encounter for screening for other disorder (principal) | CPT/HCPCS: Q3014 ==

== ENCOUNTER 2021-12-26 14:36 | Day surgery (SDC) | payer OTHER, SELFPAY ==
[2021-12-26] VITALS (12 sets, daily range): BP systolic 119–156; BP diastolic 70–81; PULSE 66–74; RESP 16; TEMP 36.6; O2SAT 95–100; BMI 28.3
--- NOTE | 2021-12-26 16:47 | MHC.SHP ---
Pre-Procedural Eval Section A Date of Service: 12/26/21 The patient is an INPATIENT: No Changes since office visit: No Cold of Flu in the past 2 weeks, No New Medical Problems, No Changes in Medication and No Patient answered all questions The History & Physical has been completed within 30 days and I have reviewed it.: No Section B Chief Complaint: cystitis Details of Present Illness: Persistent incisional cystitis Relevant Social History: None Medical History: Significant History History of Previous Operations: Relevant previous surgery/procedure and date(s) Allergies: Allergies Allergy/AdvReac Type Severity Reaction Status Date / Time amoxicillin [From AUGMENTIN] Allergy Severe SEVERE Verified 11/03/21 10:32 DIARRHEA clavulanic acid Allergy Severe SEVERE Verified 11/03/21 10:32 [From AUGMENTIN] DIARRHEA Btiactu-XUQ-XvE Reductase Allergy Intermediate muscle Verified 11/03/21 10:32 Inhibitor aches, [[id number] REDUCTASE cramps INHIBITOR] acetaminophen [ACETAMINOPHEN] AdvReac Severe GI upset. Verified 11/03/21 10:32 Pt confirmed NOT allergic to oxycodone Review of Systems Sugical H&P ROS: Negative: Constitution, Cardiovascular, Respiratory, Neurological, Psychiatric, Hem-Onc, Allergic/Immunologic, Gastrointestinal, Genitourinary, Musculoskeletal, Integumentary, Endocrine and Eyes/Ears/Nose/Throat Exam Surgical H&P Exam: Normal: HEENT, Normal: Heart, Normal: Lungs, Normal: Extremities, Normal: Abdomen, Normal: Skin and Normal: Neurological Plan Diagnosis/Plan: Unchanged ( hydrodistention) I have reviewed the history and physical and performed a pertinent physical examination on my patient. No changes have occurred unless specified.
--- NOTE | 2021-12-26 16:54 | P.CONAN_ITS ---
[facility] Active Problems Active Problems: All Active Problems (Updated 10/11/21 @ 17:47 by MILTON Carlton) Interstitial cystitis (Acute) Bladder spasm (Acute) Past Medical History Medical History Asthma Back pain Depression Elevated cholesterol History of anxiety History of gastrostomy tube placement Hx of cystitis Hx of ulcerative colitis Lab test negative for COVID-19 virus SVT (supraventricular tachycardia) Functional capacity: independent ambulation Patient : No Family History Family history of problems with anesthesia: No Surgical History Surgical History History of bladder surgery History of Problems with Anesthesia: No Social History Social History Are you a primary patient care nursing assistant to a significant other at home: No Do you presently have visiting nurse or other home services: No Patient Tobacco Use Status: Current everyday Tobacco user Tobacco use type: Cigarette Cigarettes Per Day: 5 Years Smoked: 20 Meds Allergies Allergy/AdvReac Type Severity Reaction Status Date / Time amoxicillin [From AUGMENTIN] Allergy Severe SEVERE Verified 11/03/21 10:32 DIARRHEA clavulanic acid Allergy Severe SEVERE Verified 11/03/21 10:32 [From AUGMENTIN] DIARRHEA Tubrvzv-GXI-IfQ Reductase Allergy Intermediate muscle Verified 11/03/21 10:32 Inhibitor aches, [[id number]-[id number] REDUCTASE cramps INHIBITOR] acetaminophen [ACETAMINOPHEN] AdvReac Severe GI upset. Verified 11/03/21 10:32 Pt confirmed NOT allergic to oxycodone Active Medications: Current Medications Levofloxacin (Levaquin) 500 mg in 100 mls @ 100 mls/hr IV PREOP ONE Stop: 12/26/21 17:45 Home Medications Medication Instructions Recorded Confirmed Last Taken Type albuterol sulfate 90 mcg/actuation 2 puff inhalation Q4-6H PRN 04/25/20 11/03/21 08/11/21 History aerosol inhaler (ProAir HFA) Shortness Of Breath clonazepam 0.5 mg tablet 1 mg PO BEDTIME 04/25/20 11/03/21 Unknown History ezetimibe 10 mg tablet 10 mg PO QAM 04/25/20 11/03/21 Unknown History fluticasone propionate 110 1 puff inhalation BID 04/25/20 11/03/21 Unknown History mcg/actuation HFA aerosol inhaler loratadine 10 mg tablet 10 mg PO DAILY 04/25/20 11/03/21 10/21/20 History montelukast 10 mg tablet 10 mg PO QAM 04/25/20 11/03/21 08/11/21 History olanzapine 7.5 mg tablet 7.5 mg PO BEDTIME 04/25/20 11/03/21 Unknown History sertraline 100 mg tablet 150 mg PO QAM 04/25/20 11/03/21 08/11/21 History trazodone 150 mg tablet 300 mg PO BEDTIME 04/25/20 11/03/21 Unknown History adalimumab 40 mg/0.4 mL 40 mg subcut ONCE 06/21/20 11/03/21 Unknown History subcutaneous pen kit baclofen 10 mg tablet 10 mg PO BID 08/08/21 11/03/21 Unknown History clonazepam 1 mg tablet 1 mg PO BEDTIME 08/08/21 11/03/21 Unknown History dicyclomine 20 mg tablet 20 mg PO QID 08/08/21 11/03/21 Unknown History metoprolol succinate 25 mg 12.5 mg PO DAILY 08/08/21 11/03/21 08/11/21 History tablet,extended release 24 hr omeprazole 20 mg tablet,delayed 20 mg PO DAILY 10/20/21 11/03/21 Unknown History release omeprazole 20 mg capsule,delayed 20 mg PO DAILY 11/03/21 11/03/21 Unknown History release oxycodone 5 mg tablet 5 mg PO Q8H PRN pain 11/03/21 11/03/21 Unknown History Exam Exam Date and Time: December 26, 2021 165 Height,Weight and Vital Signs: Height 5 ft 5 in Weight 77.111 kg Last Vital Signs Temp 98 F 12/26/21 15:13 Pulse 70 12/26/21 15:13 Resp 16 12/26/21 15:13 BP 119/70 12/26/21 15:13 Pulse Ox 96 12/26/21 15:13 O2 Del Method 12/26/21 15:13 Airway Mallampati Class: II TM Dist: >3cm Neck ROM: Full Heart: RRR Lungs: CTA Assessment and Plan Final Anesthetic Review Family History of Problems with Anesthesia: No History of Problems with Anesthesia: No ASA Class: II and Emergency Final Preanesthetic Review: No Changes in Pt Med Stat, Meds/Allgs Chart Reviewed, Consent Obtained/Reviewed and Anes Risks/Benef Reviewed Patient Risk: Low (') Procedure Risk: Low Anesthetic Plan Anesthetic Plan: GA Disposition: Standard PACU
--- NOTE | 2021-12-26 17:27 | W.PM.OPN ---
Operative Note Operative Note Date of Service: 12/26/21 Narrative: PreOperative Diagnosis:? Interstitial cystitis with pelvic pain Post Operative Diagnosis:? Interstitial cystitis with pelvic pain Procedure:? Hydrodistention Surgeon: Dr Mk Cornelius Anesthesia:? General Indications for procedure: Longstanding? interstitial cystitis.? Responds well to hydrodistention. Procedure: After informed consent was verified the patient was brought to the operating room and placed in a supine position.? Anesthesia was administered per protocol.? The patient was placed in a modified dorsal lithotomy position and prepped and draped in sterile fashion.? Safety pause time-out was observed.? Antibiotics being given. A 22 Kyrgyz cystoscope was used to empty the bladder.? A mixture of bupivacaine lidocaine gel 20 cc was instilled into the bladder and allowed to sit for 2-3 minutes.? A belladonna and opiate rectal suppository was placed. Hydrodistention of the bladder was performed.? The bladder was filled and allowed to sit for 2 minutes.? Filling was from a height of 1 m. On the 1st fill there was 900 cc within the bladder.? Cystoscopy revealed glomerulations consistent with interstitial cystitis. Second filling of the bladder was performed in similar fashion.? Bladder biopsies were performed and fulguration used for control. Volume was approximately? 900 cc.? Terminal hematuria noted. The the bladder was emptied.? The patient tolerated procedure well was extubated in operating room transferred in stable condition to the recovery area.? Appropriate postprocedure pain medication was provided. ? Pathology: ?none Drains: None
[2021-12-26] MEDS: oxyCODONE HCl Immed Release 5 MG TABLET PO (18:00)
[2021-12-26] MEDS: Phenazopyridine HCL 100 MG TABLET PO (18:00)
[2021-12-26] MEDS: fentaNYL citrate/PF 100 MCG/2 ML VIAL 25 MCG IVPUSH ×2 (18:01→18:06)
--- NOTE | 2021-12-26 19:10 | HO.POSTANES ---
Post Anesthesia Evaluation Post Anesthesia Evaluation Vital Signs: Vital Signs Temp Pulse Resp BP Pulse Ox O2 Del Method O2 Flow Rate 12/26/21 18:35 66 16 142/78 H 95 Room Air 12/26/21 18:20 70 16 142/77 H 95 Room Air 12/26/21 18:11 67 16 156/81 H 95 Room Air 12/26/21 18:06 16 12/26/21 18:06 71 16 153/80 H 97 Room Air 12/26/21 17:55 70 16 153/73 H 97 Room Air 12/26/21 18:01 71 16 151/75 H 97 Room Air 12/26/21 18:01 16 12/26/21 17:50 71 16 129/78 100 Simple Mask 8 12/26/21 17:45 69 16 137/76 100 Simple Mask 8 12/26/21 17:40 97.8 F 74 16 146/78 H 100 Simple Mask 8 12/26/21 15:13 98 F 70 16 119/70 96 Room Air Anesthesia: General LMA Mental Status: Awake Pain Control: Satisfactory Nausea/Vomiting: None Hydration: Adequate Anesthesia-Related Issues: No Anes. Related Issues
== END 2021-12-26 19:29 | disposition home or self-care (01) ==
PROVIDERS: PCP Internal Medicine; Visit Provider Urology
PROC: 0T7B7ZZ Dilation of Bladder, Via Natural or Artificial Opening (ICD-10-PCS; CPT 52260; principal; 2021-12-26 16:30)
DX: N30.10 Interstitial cystitis (chronic) without hematuria (principal); N32.89 Other specified disorders of bladder; J45.909 Unspecified asthma, uncomplicated; I47.1 Supraventricular tachycardia; F41.8 Other specified anxiety disorders; Z87.19 Personal history of other diseases of the digestive system; Z79.899 Other long term (current) drug therapy; Z88.1 Allergy status to other antibiotic agents; Z88.8 Allergy status to other drugs, medicaments and biological substances; F17.210 Nicotine dependence, cigarettes, uncomplicated
CPT/HCPCS: 52260; J0131; J1100; J1956; J2250; J2405; J3010

== ENCOUNTER → 2022-02-19 13:54 | Outpatient (BNVA) | payer OTHER, SELFPAY | PROVIDERS: PCP Internal Medicine; Visit Provider Urology | DX: N30.10 Interstitial cystitis (chronic) without hematuria (principal) | CPT/HCPCS: Q3014 ==

== ENCOUNTER 2022-04-13 06:40 | Day surgery (SDC) | payer OTHER, SELFPAY ==
--- NOTE | 2022-02-27 10:45 | P.CONAN_ITS ---
HPI - Anesthesia Eval Consult details Narrative: 57yo F for Cystoscopy Hydrodistention of Bladder s/p same 12/2021 with GA-LMA 4 PMFSH Active Problems Active Problems: All Active Problems (Updated 10/11/21 @ 17:47 by MILTON Carlton) Interstitial cystitis (Acute) Bladder spasm (Acute) Past Medical History Medical History Asthma Back pain Depression Elevated cholesterol History of anxiety History of gastrostomy tube placement Hx of cystitis Hx of ulcerative colitis Lab test negative for COVID-19 virus SVT (supraventricular tachycardia) Family History Family history of problems with anesthesia: No Surgical History Surgical History History of bladder surgery History of Problems with Anesthesia: No Social History Social History Are you a primary special needs child caregiver to a significant other at home: No Do you presently have visiting nurse or other home services: No Patient Tobacco Use Status: Current everyday Tobacco user Tobacco use type: Cigarette Cigarettes Per Day: 5 Years Smoked: 20 Meds Allergies Allergy/AdvReac Type Severity Reaction Status Date / Time amoxicillin [From AUGMENTIN] Allergy Severe SEVERE Verified 02/19/22 14:35 DIARRHEA clavulanic acid Allergy Severe SEVERE Verified 02/19/22 14:35 [From AUGMENTIN] DIARRHEA Vsodddt-FWI-KqL Reductase Allergy Intermediate muscle Verified 02/19/22 14:35 Inhibitor aches, [JGSOHXU-GXA-IXA REDUCTASE cramps INHIBITOR] acetaminophen [ACETAMINOPHEN] AdvReac Severe GI upset. Verified 02/19/22 14:35 Pt confirmed NOT allergic to oxycodone Home Medications Medication Instructions Recorded Confirmed Last Taken Type albuterol sulfate 90 mcg/actuation 2 puff inhalation Q4-6H PRN 04/25/20 11/03/21 08/11/21 History aerosol inhaler (ProAir HFA) Shortness Of Breath clonazepam 0.5 mg tablet 1 mg PO BEDTIME 04/25/20 11/03/21 Unknown History ezetimibe 10 mg tablet 10 mg PO QAM 04/25/20 11/03/21 Unknown History fluticasone propionate 110 1 puff inhalation BID 04/25/20 11/03/21 Unknown History mcg/actuation HFA aerosol inhaler loratadine 10 mg tablet 10 mg PO DAILY 04/25/20 11/03/21 10/21/20 History montelukast 10 mg tablet 10 mg PO QAM 04/25/20 11/03/21 08/11/21 History olanzapine 7.5 mg tablet 7.5 mg PO BEDTIME 04/25/20 11/03/21 Unknown History sertraline 100 mg tablet 150 mg PO QAM 04/25/20 11/03/21 08/11/21 History trazodone 150 mg tablet 300 mg PO BEDTIME 04/25/20 11/03/21 Unknown History adalimumab 40 mg/0.4 mL 40 mg subcut ONCE 06/21/20 11/03/21 Unknown History subcutaneous pen kit baclofen 10 mg tablet 10 mg PO BID 08/08/21 11/03/21 Unknown History clonazepam 1 mg tablet 1 mg PO BEDTIME 08/08/21 11/03/21 Unknown History dicyclomine 20 mg tablet 20 mg PO QID 08/08/21 11/03/21 Unknown History metoprolol succinate 25 mg 12.5 mg PO DAILY 08/08/21 11/03/21 08/11/21 History tablet,extended release 24 hr omeprazole 20 mg tablet,delayed 20 mg PO DAILY 10/20/21 11/03/21 Unknown History release omeprazole 20 mg capsule,delayed 20 mg PO DAILY 11/03/21 11/03/21 Unknown History release oxycodone 5 mg tablet 5 mg PO Q8H PRN pain 11/03/21 11/03/21 Unknown History baclofen 20 mg tablet 20 mg PO BID 02/19/22 Unknown History Exam Exam Date and Time: February 27, 2022 1045 Pertinent Lab Results Pertinent Lab Results: Laboratory Tests 10/11/21 10/11/21 16:21 16:21 WBC 6.9 Hgb 11.9 L Hct 36.6 L Plt Count 215 Sodium 139 Potassium 3.8 Chloride 102 Carbon Dioxide 29 BUN 14 Creatinine 0.85 Assessment and Plan Assessment Anesthesia Assessment: Chart Reviewed Final Anesthetic Review Family History of Problems with Anesthesia: No History of Problems with Anesthesia: No
[2022-04-13 07:05] VITALS: BP 121/60; PULSE 69; RESP 18; TEMP 37.1; O2SAT 98; BMI 29.1
[2022-04-13] MEDS: Lactated Ringers 1,000 ML 50 ML IVCONT (07:23)
--- NOTE | 2022-04-13 08:11 | MHC.SHP ---
Pre-Procedural Eval Section A Date of Service: 04/13/22 The patient is an INPATIENT: No Changes since office visit: No Cold of Flu in the past 2 weeks, No New Medical Problems, No Changes in Medication and No Patient answered all questions The History & Physical has been completed within 30 days and I have reviewed it.: No Section B Chief Complaint: Interstitial cystitis (chronic) without hematuria Details of Present Illness: Interstitial cystitis ongoing here for hydrodistention Relevant Family History (Specify if Yes): No Relevant Social History: None Present Medications: see Short Stay Collaborative assessment Medical History: Significant History History of Previous Operations: Relevant previous surgery/procedure and date(s) Allergies: Allergies Allergy/AdvReac Type Severity Reaction Status Date / Time amoxicillin [From AUGMENTIN] Allergy Severe SEVERE Verified 02/19/22 14:35 DIARRHEA clavulanic acid Allergy Severe SEVERE Verified 02/19/22 14:35 [From AUGMENTIN] DIARRHEA Mauebgc-WJE-ZbH Reductase Allergy Intermediate muscle Verified 02/19/22 14:35 Inhibitor aches, [FTWIKAP-JLB-[id number] REDUCTASE cramps INHIBITOR] acetaminophen [ACETAMINOPHEN] AdvReac Severe GI upset. Verified 02/19/22 14:35 Pt confirmed NOT allergic to oxycodone Review of Systems Sugical H&P ROS: Negative: Constitution, Cardiovascular, Respiratory, Neurological, Psychiatric, Hem-Onc, Allergic/Immunologic, Gastrointestinal, Genitourinary, Musculoskeletal, Integumentary, Endocrine and Eyes/Ears/Nose/Throat Exam Surgical H&P Exam: Normal: HEENT, Normal: Heart, Normal: Lungs, Normal: Extremities, Normal: Abdomen, Normal: Skin and Normal: Neurological Plan Diagnosis/Plan: Unchanged (Hydrodistention) I have reviewed the history and physical and performed a pertinent physical examination on my patient. No changes have occurred unless specified.
[2022-04-13] MEDS: levoFLOXacin 500 MG TABLET PO (08:14)
--- NOTE | 2022-04-13 08:21 | P.CONAN_ITS ---
HPI - Anesthesia Eval Consult details Narrative: Interstitial cystitis PMFSH Active Problems Active Problems: All Active Problems (Updated 04/07/22 @ 15:40 by Leatha Tatum RN) Interstitial cystitis (Acute) Bladder spasm (Acute) Past Medical History Medical History Anxiety Asthma Back pain Depression Elevated cholesterol History of anxiety History of gastrostomy tube placement Hx of cystitis Hx of ulcerative colitis Lab test negative for COVID-19 virus On beta morgan at home SVT (supraventricular tachycardia) Family History Family history of problems with anesthesia: No Surgical History Surgical History History of bladder surgery History of endometrial ablation History of tubal ligation History of Problems with Anesthesia: No Social History Social History Are you a primary client care specialist to a significant other at home: No Do you presently have visiting nurse or other home services: No Patient Tobacco Use Status: Current everyday Tobacco user Tobacco use type: Cigarette Cigarettes Per Day: 7 Years Smoked: 20 Use of substances other than those prescribed or required for medical reasons: No Are you DNR?: No Advance Directives: No Advance Directives Information Provided: Yes Meds Allergies Allergy/AdvReac Type Severity Reaction Status Date / Time amoxicillin [From AUGMENTIN] Allergy Severe SEVERE Verified 02/19/22 14:35 DIARRHEA clavulanic acid Allergy Severe SEVERE Verified 02/19/22 14:35 [From AUGMENTIN] DIARRHEA Bgkxypo-PHA-WnN Reductase Allergy Intermediate muscle Verified 02/19/22 14:35 Inhibitor aches, [HBHPELA-ZTN-AJN REDUCTASE cramps INHIBITOR] acetaminophen [ACETAMINOPHEN] AdvReac Severe GI upset. Verified 02/19/22 14:35 Pt confirmed NOT allergic to oxycodone Active Medications: Current Medications Lactated Ringer's (Lr) 1,000 mls @ 50 mls/hr IVCONT .Q20H MELY Last Admin: 04/13/22 07:23 Dose: 50 mls/hr Home Medications Medication Instructions Recorded Confirmed Last Taken Type albuterol sulfate 90 mcg/actuation 2 puff inhalation Q4-6H PRN 04/25/20 04/07/22 04/13/22 History aerosol inhaler (ProAir HFA) Shortness Of Breath ezetimibe 10 mg tablet 10 mg PO QAM 04/25/20 04/07/22 Unknown History fluticasone propionate 110 1 puff inhalation BID 04/25/20 11/03/21 Unknown History mcg/actuation HFA aerosol inhaler loratadine 10 mg tablet 10 mg PO DAILY 04/25/20 04/07/22 10/21/20 History olanzapine 7.5 mg tablet 7.5 mg PO BEDTIME 04/25/20 04/07/22 Unknown History sertraline 100 mg tablet 150 mg PO QAM 04/25/20 04/07/22 04/13/22 History trazodone 150 mg tablet 300 mg PO BEDTIME 04/25/20 04/07/22 Unknown History adalimumab 40 mg/0.4 mL 40 mg subcut ONCE 06/21/20 04/07/22 Unknown History subcutaneous pen kit clonazepam 1 mg tablet 1 mg PO BEDTIME 08/08/21 04/07/22 Unknown History dicyclomine 20 mg tablet 20 mg PO QID 08/08/21 04/07/22 Unknown History metoprolol succinate 25 mg 12.5 mg PO DAILY 08/08/21 04/07/22 04/13/22 History tablet,extended release 24 hr omeprazole 20 mg capsule,delayed 20 mg PO DAILY 11/03/21 04/07/22 04/13/22 History release baclofen 20 mg tablet 20 mg PO BID 02/19/22 04/07/22 Unknown History Exam Exam Date and Time: April 13, 2022 0821 Height,Weight and Vital Signs: Height 5 ft 5 in Weight 79.379 kg Last Vital Signs Temp 98.8 F 04/13/22 07:05 Pulse 69 04/13/22 07:05 Resp 18 04/13/22 07:05 BP 121/60 04/13/22 07:05 Pulse Ox 98 04/13/22 07:05 O2 Del Method 04/13/22 07:05 Airway Mallampati Class: II TM Dist: >3cm Neck ROM: Full Loose/Missing/Broken Teeth: Yes (poor dentition, many upper and lower missing globally) Heart: [id number] Lungs: cta b/l Assessment and Plan Assessment Anesthesia Assessment: Anesthesia Plan Discussed and Chart Reviewed Final Anesthetic Review Family History of Problems with Anesthesia: No History of Problems with Anesthesia: No NPO: Yes ASA Class: III Final Preanesthetic Review: No Changes in Pt Med Stat, Meds/Allgs Chart Reviewed, Consent Obtained/Reviewed and Anes Risks/Benef Reviewed Patient Risk: Intermediate Procedure Risk: Low Assessment/Block/Sedation in SS: Assess/Block/Sedation-SS Anesthetic Plan Anesthetic Plan: MAC: and Agree w/ Assess. and Plan Disposition: Standard PACU
--- NOTE | 2022-04-13 08:57 | P.OP_ITS ---
Operative Note Operative Note Date of Service: 04/13/22 Narrative: PreOperative Diagnosis:? Interstitial cystitis with pelvic pain Post Operative Diagnosis:? Interstitial cystitis with pelvic pain Procedure:? Hydrodistention Surgeon: Dr Mk Cornelius Anesthesia:? Heavy sedation Indications for procedure: Longstanding? interstitial cystitis.? Responds well to hydrodistention. Procedure: After informed consent was verified the patient was brought to the operating room and placed in a supine position.? Anesthesia was administered per protocol.? The patient was placed in a modified dorsal lithotomy position and prepped and draped in sterile fashion.? Safety pause time-out was observed.? Antibiotics being given. A 22 Hungarian cystoscope was used to empty the bladder.? A mixture of bupivacaine lidocaine gel 20 cc was instilled into the bladder and allowed to sit for 2-3 minutes. Hydrodistention of the bladder was performed.? The bladder was filled and allowed to sit for 2 minutes.? Filling was from a height of 1 m. On the 1st fill there was 850 cc within the bladder.? Cystoscopy revealed glomerulations consistent with interstitial cystitis. Second filling of the bladder was performed in similar fashion.? Bladder biopsies were performed and fulguration used for control. Volume was approximately? 900 cc.? Terminal hematuria noted. The the bladder was emptied.? The patient tolerated procedure well was extubated in operating room transferred in stable condition to the recovery area.? Appropriate postprocedure pain medication was provided. ? Pathology: ?none Drains: None
[2022-04-13 09:05] VITALS: BP 108/51; PULSE 71; RESP 12; TEMP 36.4; O2SAT 90
[2022-04-13 09:20] VITALS: BP 115/56; PULSE 67; RESP 14; O2SAT 100
[2022-04-13] MEDS: ondansetron HCL 4 MG/2 ML VIAL IVPUSH (09:20)
[2022-04-13] MEDS: oxyCODONE HCl Immed Release 5 MG TABLET PO (09:22)
[2022-04-13 09:34] VITALS: BP 128/68; PULSE 63; RESP 16; TEMP 36.4; O2SAT 96
[2022-04-13 09:50] VITALS: BP 119/65; PULSE 58; RESP 16; TEMP 36.2; O2SAT 96
== END 2022-04-13 11:17 | disposition home or self-care (01) ==
PROVIDERS: PCP Internal Medicine; Visit Provider Urology
PROC: 0T7B7ZZ Dilation of Bladder, Via Natural or Artificial Opening (ICD-10-PCS; CPT 52260; principal; 2022-04-13 08:20)
DX: N30.10 Interstitial cystitis (chronic) without hematuria (principal); R10.2 Pelvic and perineal pain; R39.15 Urgency of urination; Z93.1 Gastrostomy status; J45.909 Unspecified asthma, uncomplicated; E78.00 Pure hypercholesterolemia, unspecified; F32.A Depression, unspecified; F41.1 Generalized anxiety disorder; Z79.51 Long term (current) use of inhaled steroids; Z79.899 Other long term (current) drug therapy; Z88.1 Allergy status to other antibiotic agents; Z88.8 Allergy status to other drugs, medicaments and biological substances; F17.210 Nicotine dependence, cigarettes, uncomplicated
CPT/HCPCS: 52260; J2250; J2405; J3010

== ENCOUNTER 2022-04-24 12:35 | Emergency (ER) | payer OTHER, SELFPAY ==
--- NOTE | ~2022-04-24 | XR_ITS ---
EXAMINATION: XR FOOT LEFT XR ANKLE LEFT CLINICAL INFORMATION: Injury, pain COMPARISON: None TECHNIQUE: Left ankle, 2 views Left foot, 3 views FINDINGS: Left ankle: Bones have normal alignment and joint spaces are normal. The talar dome is well-positioned within the mortise. Soft tissues are swollen at the lateral ankle. No ankle joint effusion. Left foot: Small plantar calcaneal enthesophyte. Soft tissues are swollen at the lateral ankle and dorsal foot. Acute fracture of the base of the fifth metatarsal with less than 0.2 cm of proximal fragment distraction. Otherwise, the metatarsals and phalanges are normal. Bones have normal alignment throughout the foot. XR/XR ankle LT 2V IMPRESSION: * No fracture or malalignment at the left ankle. * Acute, mildly displaced fracture at the base of the fifth metatarsal in region of peroneus brevis attachment. * Soft tissues are swollen at the lateral ankle and dorsal foot.
--- NOTE | ~2022-04-24 | XR_ITS ---
EXAMINATION: XR FOOT LEFT XR ANKLE LEFT CLINICAL INFORMATION: Injury, pain COMPARISON: None TECHNIQUE: Left ankle, 2 views Left foot, 3 views FINDINGS: Left ankle: Bones have normal alignment and joint spaces are normal. The talar dome is well-positioned within the mortise. Soft tissues are swollen at the lateral ankle. No ankle joint effusion. Left foot: Small plantar calcaneal enthesophyte. Soft tissues are swollen at the lateral ankle and dorsal foot. Acute fracture of the base of the fifth metatarsal with less than 0.2 cm of proximal fragment distraction. Otherwise, the metatarsals and phalanges are normal. Bones have normal alignment throughout the foot. XR/XR foot LT 2V IMPRESSION: * No fracture or malalignment at the left ankle. * Acute, mildly displaced fracture at the base of the fifth metatarsal in region of peroneus brevis attachment. * Soft tissues are swollen at the lateral ankle and dorsal foot.
[2022-04-24 12:53] VITALS: BP 110/68; PULSE 79; RESP 18; TEMP 36.6; O2SAT 93; BMI 28.3
--- NOTE | 2022-04-24 13:12 | ED_ITS ---
HPI - General Adult General Chief complaint: Extremity Injury, Lower Stated complaint: L foot inj Time Seen by Provider: 04/24/22 13:07 Source: patient Mode of arrival: ambulatory Limitations: no limitations History of Present Illness HPI narrative: Patient is a 57 year old assigned female at with no reported medical history presenting to the emergency department today with left foot pain. Patie nt states that a week ago she twisted her left ankle and is still having pain in her left ankle and left foot. Patient states that she was seen by a provider at [facility] in [place] and they told her nothing was broken. Patient denies any dizziness, lightheadedness, abdominal pain, nausea, vomiting, fever, chills, blurry vision, double vision, loss of vision, chest pain, difficulty breathing, shortness of breath, back pain, night sweats, pain with urination, increased urinary frequency, increased urinary urgency, blood in her urine or stool, syncope or a near syncopal episode, bowel incontinence, bladder incontinence, bowel retention, bladder retention, or any other complaints at this time. Onset (ago): week(s) (1) Location: left and lower extremity Radiation: non-radiation Severity: mild Severity scale (1-10): 3 Quality: dull Pain Consistency: constant Relieving factors: none Exacerbating factors: movement Associated symptoms: denies other symptoms Treatments prior to arrival: none Related Data Home Medications Medication Instructions Recorded Confirmed albuterol sulfate 90 mcg/actuation 2 puff inhalation Q4-6H PRN 04/25/20 04/07/22 aerosol inhaler (ProAir HFA) Shortness Of Breath ezetimibe 10 mg tablet 10 mg PO QAM 04/25/20 04/07/22 fluticasone propionate 110 1 puff inhalation BID 04/25/20 11/03/21 mcg/actuation HFA aerosol inhaler loratadine 10 mg tablet 10 mg PO DAILY 04/25/20 04/07/22 olanzapine 7.5 mg tablet 7.5 mg PO BEDTIME 04/25/20 04/07/22 sertraline 100 mg tablet 150 mg PO QAM 04/25/20 04/07/22 trazodone 150 mg tablet 300 mg PO BEDTIME 04/25/20 04/07/22 adalimumab 40 mg/0.4 mL 40 mg subcut ONCE 06/21/20 04/07/22 subcutaneous pen kit clonazepam 1 mg tablet 1 mg PO BEDTIME 08/08/21 04/07/22 dicyclomine 20 mg tablet 20 mg PO QID 08/08/21 04/07/22 metoprolol succinate 25 mg 12.5 mg PO DAILY 08/08/21 04/07/22 tablet,extended release 24 hr omeprazole 20 mg capsule,delayed 20 mg PO DAILY 11/03/21 04/07/22 release baclofen 20 mg tablet 20 mg PO BID 02/19/22 04/07/22 Previous Rx's Medication Instructions Recorded pentosan polysulfate sodium 100 mg 200 mg PO BID 30 days #120 caps 12/24/20 capsule (Elmiron) famotidine 40 mg tablet 40 mg PO BEDTIME 30 days #30 tabs 02/19/22 oxycodone 5 mg capsule 5 mg PO Q8H PRN pain 3 days #20 04/13/22 caps hydrocodone 5 mg-acetaminophen 325 1 tab PO Q6H PRN pain #7 tabs 04/24/22 mg tablet Allergies Allergy/AdvReac Type Severity Reaction Status Date / Time amoxicillin [From AUGMENTIN] Allergy Severe SEVERE Verified 02/19/22 14:35 DIARRHEA clavulanic acid Allergy Severe SEVERE Verified 02/19/22 14:35 [From AUGMENTIN] DIARRHEA [id number]-[id number] Reductase Allergy Intermediate muscle Verified 02/19/22 14:35 Inhibitor aches, [[id number] REDUCTASE cramps INHIBITOR] acetaminophen [ACETAMINOPHEN] AdvReac Severe GI upset. Verified 02/19/22 14:35 Pt confirmed NOT allergic to oxycodone Review of Systems Constitutional: Constitutional: Reports no additional constitutional complaints, Denies chills, Denies fever(s) and Denies night sweats Eyes: Eyes: Reports no additional eye complaints, Denies blurry vision, Denies change in vision, Denies diplopia, Denies eye discharge, Denies loss of vision and Denies eye pain ENT: Denies dizziness Cardiovascular: Cardiovascular: Reports no additional cardiovascular complaints, Denies chest pain, Denies lightheadedness, Denies Loss of Consciousness and Denies dyspnea Respiratory: Respiratory: Reports no additional respiratory complaints and Denies dyspnea Gastrointestinal: Gastrointestinal: Reports no additional gastrointestinal complaints, Denies abdominal pain, Denies melena, Denies hematochezia, Denies change in bowel habits and Denies change in stool character Genitourinary: Genitourinary: Denies hematuria, Denies urinary frequency, Denies dysuria, Denies urinary incontinence, Denies urinary hesitancy and Denies urinary urgency Musculoskeletal: Musculoskeletal: Reports no additional musculoskeletal complaints, Denies numbness and Denies tingling Comments: left foot pain, left ankle pain Neurologic: Denies dizziness, Denies loss of vision, Denies numbness and Denies tingling Psychiatric: Psychiatric: Reports no additional psychiatric complaints Endocrine: Endocrine: Reports no additional endocrine complaints Hematologic/Lymphatic: Hematologic/Lymphatic: Reports no additional hematologic/lymphatic complaints Allergic/Immunologic: Allergic/Immunologic: Reports no additional allergic/immunologic complaints [facility] Past Medical History Attestation statement: The following information was validated with the patient. Source: old records reviewed Medical History Anxiety Asthma Back pain Depression Elevated cholesterol History of anxiety History of gastrostomy tube placement Hx of cystitis Hx of ulcerative colitis Lab test negative for COVID-19 virus On beta morgan at home SVT (supraventricular tachycardia) Surgical History History of bladder surgery History of endometrial ablation History of tubal ligation Social History Social History Are you a primary foster care social worker to a significant other at home: No Do you presently have visiting nurse or other home services: No Patient Tobacco Use Status: Current everyday Tobacco user Tobacco use type: Cigarette Cigarettes Per Day: 7 Years Smoked: 20 Advance Directives: No Advance Directives Information Provided: No Physical Exam ED Vital Signs: Vital Signs - 24 hr 04/24/22 12:53 Temperature 97.8 F Pulse Rate 79 Respiratory Rate 18 Blood Pressure 110/68 Pulse Oximetry 93 Oxygen Delivery Method Room Air BMI result Body Mass Index 28.3 Const General: cooperative, no acute distress, alert and awake Nutritional Appearance: well nourished Orientation/consciousness: patient oriented x3 Limitations: no limitations HENMT Head: Yes normal to inspection and Yes atraumatic Ears: hearing grossly normal bilaterally and external ears normal General nose exam: Normal external nose present, no nasal discharge noted and no epistaxis Face and sinus: Yes normal facial exam, No abrasion and No laceration Mouth: Normal oral and palatal mucosa present, no drooling and no muffled voice Eyes General: appearance normal, both eyes and all related structures Periorbital: periorbital findings normal Eyelids: Yes eyelids normal Conjunctivae: conjunctivae normal Pupils: Equal, round and reactive pupils present EOM: EOMs intact bilaterally Neck Neck: Yes normal visual inspection, Yes full ROM and Yes no lymphadenopathy Chest Chest palpation & inspection: normal inspection of the chest Resp Effort & Inspection: normal respiratory effort and able to speak in complete sentences Auscultation: clear to auscultation bilaterally Cardio Rate: regular rate Rhythm: regular rhythm GI Inspection: Yes normal to inspection Neuro General: patient oriented x3 and moves all extremities Cranial nerves: Yes Equal, round and reactive pupils present Cognition (Neuro): normal cognition Motor exam (neuro): 5/5 motor strength present throughout Sensory Exam: Normal double simultaneous stimulation for sensation Coordination: [id number] test normal Extrem Other: minimal swelling to the medial dorsal aspect of the left foot General: Yes full ROM and Yes capillary refill normal Psych Appearance: grossly normal Mental Status: mental status grossly normal Affect: normal affect Attitude: cooperative Thought process: Normal thought process present Thought content: Normal thought content present Insight: Good insight present (Psych) Medications Administered Discontinued Medications Generic Name Dose Route Start Last Admin Trade Name Freq PRN Reason Stop Dose Admin Oxycodone HCl 5 mg 04/24/22 14:02 04/24/22 14:11 Oxycodone Hcl Immed Release 5 Mg Tablet PO 04/24/22 14:03 5 mg ONCE ONE Administration Procedures Orthopedic Splinting/Casting Injury #1: Side: left Lower Extremity Injury Location: foot Lower Extremity Immobilizer: boot orthosis Other Orthopedic Equipment: crutches Medical Decision Making [facility] Narrative Medical decision making narrative: Patient is a 57 year old assigned female at with no reported medical history presenting to the emergency department today with left foot and left ankle pain. Patient's physical exam showed mild swelling to the lateral aspect of the left foot but was otherwise unremarkable. Patient's left foot x-ray showed a 5th metatarsal fracture. I explained my physical exam findings as well as all test results to the patient. I answered all questions asked by the patient. Patient's left foot was placed in a boot and the patient was given crutches. I stressed the importance of the patient taking her medication as prescribed. I stressed the importance of the patient following up with her primary care provider and her orthopedic provider. I stressed the importance of the patient returning to the emergency department immediately if her symptoms were to worsen or if she were to develop any dizziness, shortness of breath, difficulty breathing, chest pain, blurry vision, loss of vision, nausea, vomiting, abdominal pain, fever, chills, back pain, or any other complaints. Patient verbalized agreement and understanding with this treatment plan and discharge. Medical Records Medical records reviewed: Yes I reviewed the patient's medical records. Imaging Data Left foot and left ankle x-ray: Attestation: I personally reviewed and interpreted this imaging study as follows: My impression: 5th metatarsal fracture Radiologist's impression: EXAMINATION: XR FOOT LEFT XR ANKLE LEFT CLINICAL INFORMATION: Injury, pain? COMPARISON: None? TECHNIQUE: Left ankle, 2 views Left foot, 3 views? FINDINGS: Left ankle: Bones have normal alignment and joint spaces are normal. The talar dome is well-positioned within the mortise. Soft tissues are swollen at the lateral ankle. No ankle joint effusion. Left foot: Small plantar calcaneal enthesophyte. Soft tissues are swollen at the lateral ankle and dorsal foot. Acute fracture of the base of the fifth metatarsal with less than 0.2 cm of proximal fragment distraction. Otherwise, the metatarsals and phalanges are normal. Bones have normal alignment throughout the foot. XR/XR foot LT 2V IMPRESSION: *? No fracture or malalignment at the left ankle. *? Acute, mildly displaced fracture at the base of the fifth metatarsal in region of peroneus brevis attachment.? *? Soft tissues are swollen at the lateral ankle and dorsal foot. Dictated By: Kash Smallwood MD Signed By: Electronically signed by Kash Smallwood MD 04/24/22 1412 Discharge Plan Discharge Clinical Impression: Foot fracture Patient Disposition: Home, Self-Care Additional Instructions: Follow up with your primary care provider and an orthopedic provider. Return to the emergency department immediately if your symptoms worsen or if you develop any dizziness, shortness of breath, difficulty breathing, chest pain, blurry vision, loss of vision, nausea, vomiting, abdominal pain, fever, chills, back pain, or any other complaints. Prescriptions: New hydrocodone-acetaminophen 5-325 mg tablet 1 tab PO Q6H PRN (Reason: pain) Qty: 7 0RF Rx Instructions: Partial Fill upon patient request. No Action Elmiron 100 mg capsule 200 mg PO BID 30 Days Qty: 120 5RF fluticasone propionate 110 mcg/actuation Hfa Aerosol Inhaler 1 puff INHALATION BID olanzapine 7.5 mg Tablet 7.5 mg PO BEDTIME trazodone 150 mg tablet 300 mg PO BEDTIME albuterol sulfate [ProAir HFA] 90 mcg/actuation Hfa Aerosol Inhaler 2 puff INHALATION Q4-6H PRN (Reason: Shortness Of Breath) loratadine 10 mg Tablet 10 mg PO DAILY ezetimibe 10 mg tablet 10 mg PO QAM sertraline 100 mg Tablet 150 mg PO QAM oxycodone 5 mg capsule 5 mg PO Q8H PRN (Reason: pain) 3 Days Qty: 20 0RF Rx Instructions: Partial Fill upon patient request. adalimumab 40 mg/0.4 mL pen injector kit 40 mg subcut ONCE metoprolol succinate 25 mg tablet extended release 24 hr 12.5 mg PO DAILY clonazepam 1 mg tablet 1 mg PO BEDTIME dicyclomine 20 mg tablet 20 mg PO QID omeprazole 20 mg capsule,delayed release(DR/EC) 20 mg PO DAILY baclofen 20 mg tablet 20 mg PO BID famotidine 40 mg tablet 40 mg PO BEDTIME 30 Days Qty: 30 0RF Referrals: [facility] – [place] [facility] [Provider Group] (Call to establish and follow up with an orthopedic provider. ) Brett Su MD [Primary Care Provider] - Interventions: ED Discharge Assessment Last Done: 04/24/22 15:02 Discharge Date/Time: 04/24/22 15:03 Print Language: Latvian
[2022-04-24] MEDS: oxyCODONE HCl Immed Release 5 MG TABLET PO (14:11)
== END 2022-04-24 15:03 | disposition home or self-care (01) ==
PROVIDERS: Emergency Provider Emergency Medicine; PCP Internal Medicine
DX: S92.902A Unspecified fracture of left foot, initial encounter for closed fracture (principal); X50.1XXA Overexertion from prolonged static or awkward postures, initial encounter; Y93.9 Activity, unspecified; Y92.9 Unspecified place or not applicable; Y99.9 Unspecified external cause status; F17.210 Nicotine dependence, cigarettes, uncomplicated; Z71.6 Tobacco abuse counseling; Z79.899 Other long term (current) drug therapy
CPT/HCPCS: 73600; 73620; 99283

== ENCOUNTER 2022-04-30 08:01 | Emergency (ER) | payer OTHER, SELFPAY ==
[2022-04-30 08:15] VITALS: BP 121/71; PULSE 81; RESP 18; TEMP 36.8; O2SAT 95; BMI 29.1
--- NOTE | 2022-04-30 09:07 | PC.NURSE ---
recent diagnosis with fracture to left foot. here for uncontrolled pain. Seen by PA. no calf tenderness or swelling noted. +[id number] yamila.
--- NOTE | 2022-04-30 09:11 | ED_ITS ---
HPI - General Adult General Chief complaint: Extremity Problem Stated complaint: l foot pain Time Seen by Provider: 04/30/22 09:00 Source: patient Limitations: no limitations History of Present Illness HPI narrative: Patient returns to the ER complaining of left foot pain. Patient has a known left 5th metatarsal fracture. Has follow-up with orthopedics plan. Pain has been increasing with any weight-bearing or range of motion and states she ran out of pain medication at this time. Patient has planned follow-up with orthopedics. No other complaints at this time. Symptoms mild to moderate pain 01/21. No other complaints at this time Related Data Home Medications Medication Instructions Recorded Confirmed albuterol sulfate 90 mcg/actuation 2 puff inhalation Q4-6H PRN 04/25/20 04/07/22 aerosol inhaler (ProAir HFA) Shortness Of Breath ezetimibe 10 mg tablet 10 mg PO QAM 04/25/20 04/07/22 fluticasone propionate 110 1 puff inhalation BID 04/25/20 11/03/21 mcg/actuation HFA aerosol inhaler loratadine 10 mg tablet 10 mg PO DAILY 04/25/20 04/07/22 olanzapine 7.5 mg tablet 7.5 mg PO BEDTIME 04/25/20 04/07/22 sertraline 100 mg tablet 150 mg PO QAM 04/25/20 04/07/22 trazodone 150 mg tablet 300 mg PO BEDTIME 04/25/20 04/07/22 adalimumab 40 mg/0.4 mL 40 mg subcut ONCE 06/21/20 04/07/22 subcutaneous pen kit clonazepam 1 mg tablet 1 mg PO BEDTIME 08/08/21 04/07/22 dicyclomine 20 mg tablet 20 mg PO QID 08/08/21 04/07/22 metoprolol succinate 25 mg 12.5 mg PO DAILY 08/08/21 04/07/22 tablet,extended release 24 hr omeprazole 20 mg capsule,delayed 20 mg PO DAILY 11/03/21 04/07/22 release baclofen 20 mg tablet 20 mg PO BID 02/19/22 04/07/22 Previous Rx's Medication Instructions Recorded pentosan polysulfate sodium 100 mg 200 mg PO BID 30 days #120 caps 12/24/20 capsule (Elmiron) oxycodone 5 mg capsule 5 mg PO Q8H PRN pain 3 days #20 04/13/22 caps hydrocodone 5 mg-acetaminophen 325 1 tab PO Q6H PRN pain #7 tabs 04/24/22 mg tablet famotidine 40 mg tablet 40 mg PO BEDTIME 30 days #30 tabs 04/27/22 hydrocodone 5 mg-acetaminophen 325 1 tab PO BID PRN pain #10 tabs 04/30/22 mg tablet Allergies Allergy/AdvReac Type Severity Reaction Status Date / Time amoxicillin [From AUGMENTIN] Allergy Severe SEVERE Verified 02/19/22 14:35 DIARRHEA clavulanic acid Allergy Severe SEVERE Verified 02/19/22 14:35 [From AUGMENTIN] DIARRHEA Lorlhdz-NTJ-ClW Reductase Allergy Intermediate muscle Verified 02/19/22 14:35 Inhibitor aches, [[id number] REDUCTASE cramps INHIBITOR] acetaminophen [ACETAMINOPHEN] AdvReac Severe GI upset. Verified 02/19/22 14:35 Pt confirmed NOT allergic to oxycodone Review of Systems Constitutional: Constitutional: Denies chills, Denies fever(s) and Denies headache(s) ENT: Denies headache(s) and Denies sore throat Cardiovascular: Cardiovascular: Denies chest pain and Denies dyspnea Respiratory: Respiratory: Denies dyspnea Gastrointestinal: Gastrointestinal: Denies nausea and Denies vomiting Musculoskeletal: Musculoskeletal: Denies deformity, Reports arthralgias and Denies numbness Comments: Left foot pain Neurologic: Denies headache(s) and Denies numbness PMF Past Medical History Medical History Anxiety Asthma Back pain Depression Elevated cholesterol History of anxiety History of gastrostomy tube placement Hx of cystitis Hx of ulcerative colitis Lab test negative for COVID-19 virus On beta morgan at home SVT (supraventricular tachycardia) Surgical History History of bladder surgery History of endometrial ablation History of tubal ligation Social History Social History Are you a primary healthcare facility administrator to a significant other at home: No Do you presently have visiting nurse or other home services: No Patient Tobacco Use Status: Current everyday Tobacco user Tobacco use type: Cigarette Cigarettes Per Day: 7 Years Smoked: 20 Advance Directives: No Physical Exam ED Vital Signs: Vital Signs - 24 hr 04/30/22 08:15 Temperature 98.2 F Pulse Rate 81 Respiratory Rate 18 Blood Pressure 121/71 Pulse Oximetry 95 Oxygen Delivery Method Room Air BMI result Body Mass Index 29.1 vital signs have been reviewed as normal and appeared to be correct. Blood pressure normal. Heart rate normal. Respiration rate normal. Temperature normal. Oxygen saturation normal. Appearance: Alert. Oriented X3. No acute distress. Head: Normal external exam. Normocephalic. Atraumatic. Eyes: PERRLA. EOMI. Conjunctiva and sclera normal. Eyelids normal. ENT: Pharynx normal. Uvula midline. Moist mucous membranes. Neck: Soft full range of motion, no JVD CVS: Heart regular rate and rhythm no murmurs and rubs Respiratory: Breath sounds are clear to auscultation bilaterally. No accessory muscle use noted. Back: No CVA tenderness. Full range of motion noted. Skin: Skin warm and dry left foot no areas of erythema induration Extremities: Left foot some slight swelling is noted tenderness over the dorsum of the left foot to the lateral aspect. Calf is nontender no swelling the calf noted. Neuro: Oriented X 3. No motor deficit. No sensory deficit. Reflexes normal. Course Course Course Narrative: Left foot fracture Left foot pain Medication refill DVT less likely no calf swelling nontender Plan to discharge patient home on hydrocodone short course patient understands refills and I usually given in the ER. Patient has planned follow-up with orthopedics Discharge Plan Discharge Clinical Impression: Closed fracture of fifth metatarsal bone of left foot Patient Disposition: Home, Self-Care Instructions: Foot Fracture in Adults (ED) Additional Instructions: Follow-up with orthopedics as scheduled Medication as directed for pain Rest ice elevation use splint Prescriptions: New hydrocodone-acetaminophen 5-325 mg tablet 1 tab PO BID PRN (Reason: pain) Qty: 10 0RF Rx Instructions: Partial Fill upon patient request. No Action Elmiron 100 mg capsule 200 mg PO BID 30 Days Qty: 120 5RF famotidine 40 mg tablet 40 mg PO BEDTIME 30 Days Qty: 30 0RF fluticasone propionate 110 mcg/actuation Hfa Aerosol Inhaler 1 puff INHALATION BID olanzapine 7.5 mg Tablet 7.5 mg PO BEDTIME trazodone 150 mg tablet 300 mg PO BEDTIME albuterol sulfate [ProAir HFA] 90 mcg/actuation Hfa Aerosol Inhaler 2 puff INHALATION Q4-6H PRN (Reason: Shortness Of Breath) loratadine 10 mg Tablet 10 mg PO DAILY ezetimibe 10 mg tablet 10 mg PO QAM sertraline 100 mg Tablet 150 mg PO QAM oxycodone 5 mg capsule 5 mg PO Q8H PRN (Reason: pain) 3 Days Qty: 20 0RF Rx Instructions: Partial Fill upon patient request. hydrocodone-acetaminophen 5-325 mg tablet 1 tab PO Q6H PRN (Reason: pain) Qty: 7 0RF Rx Instructions: Partial Fill upon patient request. adalimumab 40 mg/0.4 mL pen injector kit 40 mg subcut ONCE metoprolol succinate 25 mg tablet extended release 24 hr 12.5 mg PO DAILY clonazepam 1 mg tablet 1 mg PO BEDTIME dicyclomine 20 mg tablet 20 mg PO QID omeprazole 20 mg capsule,delayed release(DR/EC) 20 mg PO DAILY baclofen 20 mg tablet 20 mg PO BID
[2022-04-30] MEDS: HYDROcodone Bit/Acetam 5/325 TABLET 1 TAB PO (09:24)
== END 2022-04-30 10:21 | disposition home or self-care (01) ==
PROVIDERS: Emergency Provider Emergency Medicine Emergency Medical Services; PCP Internal Medicine
DX: S92.352A Displaced fracture of fifth metatarsal bone, left foot, initial encounter for closed fracture (principal); Y29.XXXA Contact with blunt object, undetermined intent, initial encounter; Y93.9 Activity, unspecified; Y92.9 Unspecified place or not applicable; Y99.9 Unspecified external cause status; F17.210 Nicotine dependence, cigarettes, uncomplicated; Z71.6 Tobacco abuse counseling; Z79.899 Other long term (current) drug therapy
CPT/HCPCS: 99283

== ENCOUNTER 2022-05-11 08:19 | Outpatient (REF) | payer OTHER, SELFPAY ==
--- NOTE | ~2022-05-11 | XR_ITS ---
EXAMINATION: XR FOOT, LEFT CLINICAL INFORMATION: Fracture COMPARISON: Previous x-ray most recent 04/24/2022 TECHNIQUE: AP, lateral, and oblique views of the left foot. FINDINGS: There is a comminuted fracture of the base of the fifth metatarsal bone. There is slight interval increase in displacement. No other fracture. The joint spaces are normal. Bones appear osteopenic. There are small calcaneal spurs. Soft tissues are unremarkable. XR/XR foot LT min 3V IMPRESSION: Slight interval increase in displacement in the comminuted fracture of the base of the fifth metatarsal bone.
== END 2022-05-11 08:20 | disposition home or self-care (01) ==
LOC: HO.HOSX 08:19
PROVIDERS: Visit Provider Physician Assistant
DX: M79.672 Pain in left foot (principal); S92.352A Displaced fracture of fifth metatarsal bone, left foot, initial encounter for closed fracture; X50.1XXA Overexertion from prolonged static or awkward postures, initial encounter; Y93.01 Activity, walking, marching and hiking; Y92.9 Unspecified place or not applicable; Y99.8 Other external cause status
CPT/HCPCS: 29405; 73630; 99202; 99212

== ENCOUNTER → 2022-05-12 13:03 | Outpatient (BNVA) | payer OTHER, SELFPAY | PROVIDERS: PCP Internal Medicine; Visit Provider Physician Assistant | DX: S92.352A Displaced fracture of fifth metatarsal bone, left foot, initial encounter for closed fracture (principal) | CPT/HCPCS: 99212 ==

== ENCOUNTER 2022-05-25 12:24 | Outpatient (REF) | payer OTHER, SELFPAY ==
--- NOTE | ~2022-05-25 | XR_ITS ---
EXAMINATION: XR FOOT, LEFT CLINICAL INFORMATION: Pain. COMPARISON: Left foot 3 views 05/11/2022. TECHNIQUE: AP, lateral, and oblique views of the left foot. FINDINGS: Comminuted fracture base of 5th metatarsal with callus formation. However fracture line is still visualized. There is a small calcaneal heel and retrocalcaneal enthesophytes. There is mild lateral foot soft tissue swelling. XR/XR foot LT min 3V IMPRESSION: Slowly healing comminuted fracture base of 5th metatarsal with lateral foot soft tissue swelling. The fracture line is still visualized. No major change from 05/11/2022 except for callus formation.
== END 2022-05-25 12:25 | disposition home or self-care (01) ==
LOC: HO.HOSX 12:24
PROVIDERS: Visit Provider Physician Assistant
DX: S92.352A Displaced fracture of fifth metatarsal bone, left foot, initial encounter for closed fracture (principal)
CPT/HCPCS: 73630; 99212

== ENCOUNTER → 2022-06-10 13:32 | Outpatient (BNVA) | payer OTHER, SELFPAY | PROVIDERS: PCP Internal Medicine; Visit Provider Urology | DX: N30.10 Interstitial cystitis (chronic) without hematuria (principal); N32.89 Other specified disorders of bladder | CPT/HCPCS: Q3014 ==

== ENCOUNTER 2022-06-22 09:47 | Day surgery (SDC) | payer OTHER, SELFPAY ==
[2022-06-17 11:33] VITALS: BMI 28.3
[2022-06-22] VITALS (9 sets, daily range): BP systolic 112–144; BP diastolic 54–77; PULSE 57–67; RESP 14–18; TEMP 36.2–36.6; O2SAT 93–100
[2022-06-22] MEDS: Lactated Ringers 1,000 ML 80 ML IVCONT (11:45)
--- NOTE | 2022-06-22 12:13 | HO.ANESPROP2 ---
[facility] Active Problems Active Problems: All Active Problems (Updated 06/17/22 @ 11:42 by Janay Palm, PAMELA) Interstitial cystitis (Acute) Bladder spasm (Acute) Fracture of fifth metatarsal bone of left foot (Acute) Past Medical History Medical History (Updated 06/17/22 @ 11:42 by Janay Palm RN) Anxiety Asthma Back pain Depression Elevated cholesterol History of anxiety History of gastrostomy tube placement Hx of cystitis Hx of ulcerative colitis Lab test negative for COVID-19 virus On beta morgan at home Recent bereavement SVT (supraventricular tachycardia) Family History Family history of problems with anesthesia: No Surgical History Surgical History (Updated 06/17/22 @ 11:41 by Janay Palm RN) History of bladder surgery History of endometrial ablation History of tubal ligation History of Problems with Anesthesia: No Social History Social History (Updated 05/11/22 @ 15:26 by Vilma Akhtar REPLACED BY [facility]) Are you a primary rn care transition to a significant other at home: No Do you presently have visiting nurse or other home services: No Patient Tobacco Use Status: Current everyday Tobacco user Tobacco use type: Cigarette Cigarettes Per Day: 4 Years Smoked: 25 Use of substances other than those prescribed or required for medical reasons: No Have you been hit, kicked, punched, or otherwise hurt by someone within the past year? If so, by whom?: No Are you DNR?: No Advance Directives: No Advance Directives Information Provided: Yes Advance Directives on File: No Recently lost weight without trying: No Nutrition Risks: No Nutritional Risk Current occupational status: disabled Meds Allergies Allergy/AdvReac Type Severity Reaction Status Date / Time amoxicillin [From AUGMENTIN] Allergy Severe SEVERE Verified 06/10/22 13:33 DIARRHEA clavulanic acid Allergy Severe SEVERE Verified 06/10/22 13:33 [From AUGMENTIN] DIARRHEA Ecjanvx-ZGX-MhW Reductase Allergy Intermediate muscle Verified 06/10/22 13:33 Inhibitor aches, [ECQAEGY-NJY-EUY REDUCTASE cramps INHIBITOR] acetaminophen [ACETAMINOPHEN] AdvReac Severe GI upset. Verified 06/10/22 13:33 Pt confirmed NOT allergic to oxycodone Active Medications: Current Medications Lactated Ringer's (Lr) 1,000 mls @ 80 mls/hr IVCONT .[id number] MELY Last Admin: 06/22/22 11:45 Dose: 80 mls/hr Home Medications Medication Instructions Recorded Confirmed Last Taken Type albuterol sulfate 90 mcg/actuation 2 puff inhalation Q4-6H PRN 04/25/20 06/17/22 04/13/22 History aerosol inhaler (ProAir HFA) Shortness Of Breath ezetimibe 10 mg tablet 10 mg PO QAM 04/25/20 06/17/22 Unknown History fluticasone propionate 110 1 puff inhalation BID 04/25/20 06/17/22 Unknown History mcg/actuation HFA aerosol inhaler loratadine 10 mg tablet 10 mg PO DAILY 04/25/20 06/17/22 10/21/20 History olanzapine 7.5 mg tablet 7.5 mg PO BEDTIME 04/25/20 06/17/22 Unknown History sertraline 100 mg tablet 150 mg PO QAM 04/25/20 06/17/22 04/13/22 History trazodone 150 mg tablet 300 mg PO BEDTIME 04/25/20 06/17/22 Unknown History adalimumab 40 mg/0.4 mL 40 mg subcut QWEEK 06/21/20 06/17/22 Unknown History subcutaneous pen kit clonazepam 1 mg tablet 1 mg PO BEDTIME 08/08/21 06/17/22 Unknown History dicyclomine 20 mg tablet 20 mg PO QID 08/08/21 06/17/22 Unknown History metoprolol succinate 25 mg 12.5 mg PO DAILY 08/08/21 06/17/22 04/13/22 History tablet,extended release 24 hr omeprazole 20 mg capsule,delayed 20 mg PO DAILY 11/03/21 06/17/22 04/13/22 History release baclofen 20 mg tablet 20 mg PO BID 02/19/22 06/17/22 Unknown History Exam Exam Date and Time: June 22, 2022 1213 Height,Weight and Vital Signs: Height 5 ft 5 in Weight 77.111 kg Airway Mallampati Class: II TM Dist: >3cm Neck ROM: Full Assessment and Plan Assessment Anesthesia Assessment: Anesthesia Plan Discussed and Chart Reviewed Final Anesthetic Review Family History of Problems with Anesthesia: No History of Problems with Anesthesia: No NPO: Yes ASA Class: II Final Preanesthetic Review: No Changes in Pt Med Stat, Meds/Allgs Chart Reviewed, Consent Obtained/Reviewed and Anes Risks/Benef Reviewed Patient Risk: Low Procedure Risk: Low Anesthetic Plan Anesthetic Plan: GA Disposition: Standard PACU
--- NOTE | 2022-06-22 13:51 | MHC.SHP ---
Pre-Procedural Eval Section A Date of Service: 06/22/22 The patient is an INPATIENT: No Changes since office visit: No Cold of Flu in the past 2 weeks, No New Medical Problems, No Changes in Medication and No Patient answered all questions The History & Physical has been completed within 30 days and I have reviewed it.: No Section B Chief Complaint: Interstitial cystitis (chronic) without hematuria Details of Present Illness: recurrent pelvic pain Relevant Family History (Specify if Yes): No Relevant Social History: None Present Medications: see Short Stay Collaborative assessment Medical History: Significant History History of Previous Operations: Relevant previous surgery/procedure and date(s) Allergies: Allergies Allergy/AdvReac Type Severity Reaction Status Date / Time amoxicillin [From AUGMENTIN] Allergy Severe SEVERE Verified 06/10/22 13:33 DIARRHEA clavulanic acid Allergy Severe SEVERE Verified 06/10/22 13:33 [From AUGMENTIN] DIARRHEA Ikhvdrz-CLA-WrW Reductase Allergy Intermediate muscle Verified 06/10/22 13:33 Inhibitor aches, [WVRUGEG-REK-EUW REDUCTASE cramps INHIBITOR] acetaminophen [ACETAMINOPHEN] AdvReac Severe GI upset. Verified 06/10/22 13:33 Pt confirmed NOT allergic to oxycodone Review of Systems Sugical H&P ROS: Negative: Constitution, Cardiovascular, Respiratory, Neurological, Psychiatric, Hem-Onc, Allergic/Immunologic, Gastrointestinal, Genitourinary, Musculoskeletal, Integumentary, Endocrine and Eyes/Ears/Nose/Throat Exam Surgical H&P Exam: Normal: HEENT, Normal: Heart, Normal: Lungs, Normal: Extremities, Normal: Abdomen, Normal: Skin and Normal: Neurological Plan Diagnosis/Plan: Unchanged (interstial cystitis) I have reviewed the history and physical and performed a pertinent physical examination on my patient. No changes have occurred unless specified. Time Spent With Patient Time: Total time managing care of this patient today ____ minutes.
[2022-06-22] MEDS: levoFLOXacin 500 MG TABLET PO (13:55)
--- NOTE | 2022-06-22 14:36 | W.PM.OPN ---
Operative Note Operative Note Date of Service: 06/22/22 Narrative: PreOperative Diagnosis:? Interstitial cystitis with pelvic pain Post Operative Diagnosis:? Interstitial cystitis with pelvic pain Procedure:? Hydrodistention Surgeon: Dr Mk Cornelius Anesthesia:? Heavy sedation Indications for procedure: Longstanding? interstitial cystitis.? Responds well to hydrodistention. Procedure: After informed consent was verified the patient was brought to the operating room and placed in a supine position.? Anesthesia was administered per protocol.? The patient was placed in a modified dorsal lithotomy position and prepped and draped in sterile fashion.? Safety pause time-out was observed.? Antibiotics being given. A 22 Portuguese cystoscope was used to empty the bladder.? Hydrodistention of the bladder was performed.? The bladder was filled and allowed to sit for 2 minutes.? Filling was from a height of 1 m. On the 1st fill there was 450 cc within the bladder.? Cystoscopy revealed glomerulations consistent with interstitial cystitis. Second filling of the bladder was performed in similar fashion.? Bladder biopsies were performed and fulguration used for control. Volume was approximately? 600 cc.? Terminal hematuria noted. The the bladder was emptied.? A mixture of bupivacaine lidocaine gel 20 cc was instilled into the bladder and allowed to sit for 2-3 minutes. The patient tolerated procedure well was extubated in operating room transferred in stable condition to the recovery area.? Appropriate postprocedure pain medication was provided. ? Pathology: ?none Drains: None
[2022-06-22] MEDS: oxyCODONE HCl Immed Release 5 MG TABLET PO (14:55)
[2022-06-22] MEDS: fentaNYL citrate/PF 100 MCG/2 ML VIAL 50 MCG IVPUSH (14:56)
[2022-06-22] MEDS: Phenazopyridine HCL 100 MG TABLET PO (14:57)
[2022-06-22] MEDS: Ketorolac Tromethamine 15 MG/ML VIAL IVPUSH (15:00)
== END 2022-06-22 15:58 | disposition home or self-care (01) ==
PROVIDERS: PCP Internal Medicine; Visit Provider Urology
PROC: 0T7B7ZZ Dilation of Bladder, Via Natural or Artificial Opening (ICD-10-PCS; CPT 52260; principal; 2022-06-22 11:40)
DX: N30.10 Interstitial cystitis (chronic) without hematuria (principal); R10.2 Pelvic and perineal pain; E78.00 Pure hypercholesterolemia, unspecified; J45.909 Unspecified asthma, uncomplicated; F41.1 Generalized anxiety disorder; Z88.1 Allergy status to other antibiotic agents; Z79.51 Long term (current) use of inhaled steroids; Z79.899 Other long term (current) drug therapy; Z88.8 Allergy status to other drugs, medicaments and biological substances; F17.210 Nicotine dependence, cigarettes, uncomplicated
CPT/HCPCS: 52260; J1885; J2250; J2405; J3010

== ENCOUNTER 2022-07-08 16:14 | Outpatient (REF) | payer OTHER, SELFPAY | END 2022-07-08 16:15 | disposition home or self-care (01) | LOC: HO.HOSX 16:14 | PROVIDERS: Visit Provider Physician Assistant | DX: Z13.89 Encounter for screening for other disorder (principal) ==

== ENCOUNTER 2022-09-07 09:48 | Day surgery (SDC) | payer OTHER, SELFPAY ==
[2022-09-02 11:19] VITALS: BMI 28.3
[2022-09-07] VITALS (8 sets, daily range): BP systolic 102–143; BP diastolic 54–69; PULSE 52–74; RESP 12–18; TEMP 36.1–36.7; O2SAT 90–99
[2022-09-07] MEDS: levoFLOXacin 500 MG TABLET PO (10:57)
[2022-09-07] MEDS: Lactated Ringers 1,000 ML 50 ML IVCONT (11:01)
[2022-09-07] MEDS: Albuterol Sulfate (0.083%) 2.5 MG/3 ML VIAL.NEB INHALE (11:26)
--- NOTE | 2022-09-07 12:14 | MHC.SHP ---
Pre-Procedural Eval Section A Date of Service: 09/07/22 The patient is an INPATIENT: No The History & Physical has been completed within 30 days and I have reviewed it.: No Section B Chief Complaint: Interstitial cystitis (chronic) without hematuria Relevant Family History (Specify if Yes): No Relevant Social History: None Present Medications: see Short Stay Collaborative assessment Medical History: Significant History History of Previous Operations: Relevant previous surgery/procedure and date(s) Allergies: Allergies Allergy/AdvReac Type Severity Reaction Status Date / Time amoxicillin [From AUGMENTIN] Allergy Severe SEVERE Verified 06/10/22 13:33 DIARRHEA clavulanic acid Allergy Severe SEVERE Verified 06/10/22 13:33 [From AUGMENTIN] DIARRHEA Rsiwopn-DJT-WzK Reductase Allergy Intermediate muscle Verified 06/10/22 13:33 Inhibitor aches, [TSBKSAA-CHV-TKK REDUCTASE cramps INHIBITOR] acetaminophen [ACETAMINOPHEN] AdvReac Severe GI upset. Verified 06/10/22 13:33 Pt confirmed NOT allergic to oxycodone Review of Systems Sugical H&P ROS: Negative: Constitution, Cardiovascular, Respiratory, Neurological, Psychiatric, Hem-Onc, Allergic/Immunologic, Gastrointestinal, Genitourinary, Musculoskeletal, Integumentary, Endocrine and Eyes/Ears/Nose/Throat Exam Surgical H&P Exam: Normal: HEENT, Normal: Heart, Normal: Lungs, Normal: Extremities, Normal: Abdomen, Normal: Skin and Normal: Neurological Plan Diagnosis/Plan: Unchanged ( Cystoscopy, hydrodistention) I have reviewed the history and physical and performed a pertinent physical examination on my patient. No changes have occurred unless specified. Time Spent With Patient Time: Total time managing care of this patient today ____ minutes.
--- NOTE | 2022-09-07 12:23 | HO.ANESPROP2 ---
HPI - Anesthesia Eval Consult details Narrative: cysto, hydrodistension PMFSH Active Problems Active Problems: All Active Problems (Updated 06/17/22 @ 11:42 by Janay Palm RN) Interstitial cystitis (Acute) Bladder spasm (Acute) Fracture of fifth metatarsal bone of left foot (Acute) Past Medical History Medical History Anxiety Asthma Back pain Depression Elevated cholesterol History of anxiety History of gastrostomy tube placement Hx of cystitis Hx of ulcerative colitis Lab test negative for COVID-19 virus On beta morgan at home Recent bereavement SVT (supraventricular tachycardia) Family History Family history of problems with anesthesia: No Surgical History Surgical History History of bladder surgery History of endometrial ablation History of tubal ligation History of Problems with Anesthesia: No Social History Social History Are you a primary urgent care nurse practitioner to a significant other at home: No Do you presently have visiting nurse or other home services: No Patient Tobacco Use Status: Current everyday Tobacco user Tobacco use type: Cigarette Cigarettes Per Day: 5 Years Smoked: 25 Use of substances other than those prescribed or required for medical reasons: No Are you DNR?: No Advance Directives: No Advance Directives Information Provided: Yes Current occupational status: disabled Meds Allergies Allergy/AdvReac Type Severity Reaction Status Date / Time amoxicillin [From AUGMENTIN] Allergy Severe SEVERE Verified 06/10/22 13:33 DIARRHEA clavulanic acid Allergy Severe SEVERE Verified 06/10/22 13:33 [From AUGMENTIN] DIARRHEA Yjkexxv-WJL-IdY Reductase Allergy Intermediate muscle Verified 06/10/22 13:33 Inhibitor aches, [BGAYOQB-FAK-WBK REDUCTASE cramps INHIBITOR] acetaminophen [ACETAMINOPHEN] AdvReac Severe GI upset. Verified 06/10/22 13:33 Pt confirmed NOT allergic to oxycodone Active Medications: Current Medications Lactated Ringer's (Lr) 1,000 mls @ 50 mls/hr IVCONT .Q20H MELY Last Admin: 09/07/22 11:01 Dose: 50 mls/hr Home Medications Medication Instructions Recorded Confirmed Last Taken Type albuterol sulfate 90 mcg/actuation 2 puff inhalation Q4-6H PRN 04/25/20 06/17/22 04/13/22 History aerosol inhaler (ProAir HFA) Shortness Of Breath ezetimibe 10 mg tablet 10 mg PO QAM 04/25/20 06/17/22 09/07/22 06:30 History fluticasone propionate 110 1 puff inhalation BID 04/25/20 06/17/22 Unknown History mcg/actuation HFA aerosol inhaler loratadine 10 mg tablet 10 mg PO DAILY 04/25/20 06/17/22 10/21/20 History olanzapine 7.5 mg tablet 7.5 mg PO BEDTIME 04/25/20 06/17/22 Unknown History sertraline 100 mg tablet 150 mg PO QAM 04/25/20 06/17/22 09/07/22 06:30 History trazodone 150 mg tablet 300 mg PO BEDTIME 04/25/20 06/17/22 Unknown History adalimumab 40 mg/0.4 mL 40 mg subcut QWEEK 06/21/20 06/17/22 Unknown History subcutaneous pen kit clonazepam 1 mg tablet 1 mg PO BEDTIME 08/08/21 06/17/22 Unknown History dicyclomine 20 mg tablet 20 mg PO QID 08/08/21 06/17/22 09/07/22 06:30 History metoprolol succinate 25 mg 12.5 mg PO DAILY 08/08/21 06/17/22 09/07/22 06:30 History tablet,extended release 24 hr omeprazole 20 mg capsule,delayed 20 mg PO DAILY 11/03/21 06/17/22 09/07/22 06:30 History release baclofen 20 mg tablet 20 mg PO BID 02/19/22 06/17/22 Unknown History Exam Exam Date and Time: September 07, 2022 1223 Height,Weight and Vital Signs: Height 5 ft 5 in Weight 77.111 kg Last Vital Signs Temp 98.0 F 09/07/22 10:44 Pulse 54 09/07/22 11:28 Resp 18 09/07/22 11:28 BP 122/54 L 09/07/22 10:44 Pulse Ox 90 L 09/07/22 10:44 O2 Del Method Room Air 09/07/22 10:44 Airway Mallampati Class: II TM Dist: >3cm Neck ROM: Full Loose/Missing/Broken Teeth: Yes Heart: ok Lungs: ok Assessment and Plan Assessment Anesthesia Assessment: Anesthesia Plan Discussed and Chart Reviewed Final Anesthetic Review Family History of Problems with Anesthesia: No History of Problems with Anesthesia: No NPO: Yes ASA Class: III Final Preanesthetic Review: No Changes in Pt Med Stat, Meds/Allgs Chart Reviewed, Consent Obtained/Reviewed and Anes Risks/Benef Reviewed Patient Risk: Intermediate Procedure Risk: Low Anesthetic Plan Anesthetic Plan: GA and Agree w/ Assess. and Plan Disposition: Standard PACU
--- NOTE | 2022-09-07 13:02 | P.OP_ITS ---
Operative Note Operative Note Date of Service: 09/07/22 Narrative: PreOperative Diagnosis: Interstitial cystitis with pelvic pain Post Operative Diagnosis: Interstitial cystitis with pelvic pain Procedure: Hydrodistention Surgeon: Dr Mk Cornelius Anesthesia: General Indications for procedure: interstitial cystitis Procedure: After informed consent was verified the patient was brought to the operating room and placed in a supine position. Anesthesia was administered per protocol. The patient was placed in a modified dorsal lithotomy position and prepped and draped in sterile fashion. Safety pause time-out was observed. Antibiotics being given. A 22 Palestinian cystoscope was used to empty the bladder. A mixture of bupivacaine lidocaine gel 20 cc was instilled into the bladder and allowed to sit for 2-3 minutes Hydrodistention of the bladder was performed. The bladder was filled and allowed to sit for 2 minutes. Filling was from a height of 1 m. On the 1st fill there was 575 cc within the bladder. Cystoscopy revealed glomerulations consistent with interstitial cystitis. Second filling of the bladder was performed in similar fashion. Volume was approximately 800 cc. Terminal hematuria noted. A mixture of bupivacaine lidocaine gel 20 cc was instilled into the bladder. The the bladder was emptied. The patient tolerated procedure well was extubated in operating room transferred in stable condition to the recovery area. Appropriate postprocedure pain medication was provided. Pathology: Drains: None
[2022-09-07] MEDS: oxyCODONE HCl Immed Release 5 MG TABLET 10 MG PO (13:19)
== END 2022-09-07 15:13 | disposition home or self-care (01) ==
PROVIDERS: PCP Internal Medicine; Visit Provider Urology
PROC: 0T7B7ZZ Dilation of Bladder, Via Natural or Artificial Opening (ICD-10-PCS; CPT 52260; principal; 2022-09-07 11:30)
DX: N30.10 Interstitial cystitis (chronic) without hematuria (principal); R10.2 Pelvic and perineal pain; R31.9 Hematuria, unspecified; F32.A Depression, unspecified; F41.1 Generalized anxiety disorder; J45.909 Unspecified asthma, uncomplicated; I47.1 Supraventricular tachycardia; Z79.899 Other long term (current) drug therapy; Z63.4 Disappearance and death of family member; Z88.1 Allergy status to other antibiotic agents; Z88.8 Allergy status to other drugs, medicaments and biological substances; Z98.51 Tubal ligation status; F17.210 Nicotine dependence, cigarettes, uncomplicated
CPT/HCPCS: 52260; 94640; J0131; J2250; J2405; J3010

== ENCOUNTER → 2022-11-17 14:10 | Outpatient (BNVA) | payer OTHER, SELFPAY | PROVIDERS: PCP Internal Medicine; Visit Provider Urology | DX: N30.10 Interstitial cystitis (chronic) without hematuria (principal) | CPT/HCPCS: Q3014 ==

== ENCOUNTER 2022-11-30 14:46 | Day surgery (SDC) | payer OTHER, SELFPAY ==
[2022-11-30] VITALS (10 sets, daily range): BP systolic 122–141; BP diastolic 64–84; PULSE 82–89; RESP 14–20; TEMP 36.1–36.9; O2SAT 95–100; BMI 28.3
--- NOTE | 2022-11-30 16:14 | MHC.SHP ---
Pre-Procedural Eval Section A Date of Service: 11/30/22 The patient is an INPATIENT: No Changes since office visit: No Cold of Flu in the past 2 weeks, No New Medical Problems, No Changes in Medication and No Patient answered all questions The History & Physical has been completed within 30 days and I have reviewed it.: No Section B Chief Complaint: Interstitial cystitis (chronic) without hematuria Details of Present Illness: ongoing interstitial cystitis Present Medications: see Short Stay Collaborative assessment Medical History: Significant History History of Previous Operations: Relevant previous surgery/procedure and date(s) Allergies: Allergies Allergy/AdvReac Type Severity Reaction Status Date / Time amoxicillin [From AUGMENTIN] Allergy Severe SEVERE Verified 11/17/22 14:12 DIARRHEA clavulanic acid Allergy Severe SEVERE Verified 11/17/22 14:12 [From AUGMENTIN] DIARRHEA Hncnrsa-MUP-LjT Reductase Allergy Intermediate muscle Verified 11/17/22 14:12 Inhibitor aches, [DLDZPEY-DBF-FGD REDUCTASE cramps INHIBITOR] acetaminophen [ACETAMINOPHEN] AdvReac Severe GI upset. Verified 11/17/22 14:12 Pt confirmed NOT allergic to oxycodone Review of Systems Sugical H&P ROS: Negative: Constitution, Cardiovascular, Respiratory, Neurological, Psychiatric, Hem-Onc, Allergic/Immunologic, Gastrointestinal, Genitourinary, Musculoskeletal, Integumentary, Endocrine and Eyes/Ears/Nose/Throat Exam Surgical H&P Exam: Normal: HEENT, Normal: Heart, Normal: Lungs, Normal: Extremities, Normal: Abdomen, Normal: Skin and Normal: Neurological Plan Diagnosis/Plan: Unchanged ( hydrodistention) I have reviewed the history and physical and performed a pertinent physical examination on my patient. No changes have occurred unless specified. Time Spent With Patient Time: Total time managing care of this patient today ____ minutes.
--- NOTE | 2022-11-30 16:21 | P.CONAN_ITS ---
HPI - Anesthesia Eval Consult details Narrative: 57 F for cystoscopy and hydrodistension h/ o SVT on betablocker PMF Active Problems Active Problems: All Active Problems (Updated 06/17/22 @ 11:42 by Janay Palm RN) Interstitial cystitis (Acute) Bladder spasm (Acute) Fracture of fifth metatarsal bone of left foot (Acute) Past Medical History Medical History Anxiety Asthma Back pain Depression Elevated cholesterol History of anxiety History of gastrostomy tube placement Hx of cystitis Hx of ulcerative colitis Lab test negative for COVID-19 virus On beta morgan at home Recent bereavement SVT (supraventricular tachycardia) Family History Family history of problems with anesthesia: No Surgical History Surgical History History of bladder surgery History of endometrial ablation History of tubal ligation History of Problems with Anesthesia: No Social History Social History Are you a primary team primary care physician to a significant other at home: No Do you presently have visiting nurse or other home services: No Patient Tobacco Use Status: Never used Tobacco Tobacco use type: Cigarette Cigarettes Per Day: 5 Years Smoked: 22 Use of substances other than those prescribed or required for medical reasons: No Are you DNR?: No Advance Directives: No Advance Directives Information Provided: Yes Current occupational status: disabled Meds Allergies Allergy/AdvReac Type Severity Reaction Status Date / Time amoxicillin [From AUGMENTIN] Allergy Severe SEVERE Verified 11/17/22 14:12 DIARRHEA clavulanic acid Allergy Severe SEVERE Verified 11/17/22 14:12 [From AUGMENTIN] DIARRHEA Frvfncd-MXC-MrH Reductase Allergy Intermediate muscle Verified 11/17/22 14:12 Inhibitor aches, [GBUSMZE-VKQ-RZH REDUCTASE cramps INHIBITOR] acetaminophen [ACETAMINOPHEN] AdvReac Severe GI upset. Verified 11/17/22 14:12 Pt confirmed NOT allergic to oxycodone Active Medications: Current Medications Levofloxacin (Levaquin) 500 mg in 100 mls @ 100 mls/hr IV PREOP ONE Stop: 11/30/22 17:12 Home Medications Medication Instructions Recorded Confirmed Last Taken Type albuterol sulfate 90 mcg/actuation 2 puff inhalation Q4-6H PRN 04/25/20 06/17/22 04/13/22 History aerosol inhaler (ProAir HFA) Shortness Of Breath ezetimibe 10 mg tablet 10 mg PO QAM 04/25/20 06/17/22 09/07/22 06:30 History fluticasone propionate 110 1 puff inhalation BID 04/25/20 06/17/22 Unknown History mcg/actuation HFA aerosol inhaler loratadine 10 mg tablet 10 mg PO DAILY 04/25/20 06/17/22 10/21/20 History olanzapine 7.5 mg tablet 7.5 mg PO BEDTIME 04/25/20 06/17/22 Unknown History sertraline 100 mg tablet 150 mg PO QAM 04/25/20 06/17/22 09/07/22 06:30 History trazodone 150 mg tablet 300 mg PO BEDTIME 04/25/20 06/17/22 Unknown History adalimumab 40 mg/0.4 mL 40 mg subcut QWEEK 06/21/20 06/17/22 Unknown History subcutaneous pen kit clonazepam 1 mg tablet 1 mg PO BEDTIME 08/08/21 06/17/22 Unknown History dicyclomine 20 mg tablet 20 mg PO QID 08/08/21 06/17/22 09/07/22 06:30 History metoprolol succinate 25 mg 12.5 mg PO DAILY 08/08/21 06/17/22 09/07/22 06:30 History tablet,extended release 24 hr omeprazole 20 mg capsule,delayed 20 mg PO DAILY 11/03/21 06/17/22 09/07/22 06:30 History release baclofen 20 mg tablet 20 mg PO BID 02/19/22 06/17/22 Unknown History baclofen 10 mg tablet 0 mg PO 11/17/22 Unknown History ondansetron 4 mg disintegrating 4 mg PO BID PRN nausea/vomiting 11/17/22 Unknown History tablet sucralfate 1 gram tablet 1 g PO QID 11/17/22 Unknown History Exam Exam Date and Time: November 30, 20221620 Height,Weight and Vital Signs: Height 5 ft 5 in Weight 77.111 kg Last Vital Signs Temp 97 F 11/30/22 15:39 Pulse 89 11/30/22 15:39 Resp 14 06/19/23 15:39 BP 122/64 11/30/22 15:39 Pulse Ox 97 11/30/22 15:39 O2 Del Method Room Air 11/30/22 15:39 Airway Mallampati Class: III Neck ROM: Full Loose/Missing/Broken Teeth: Yes (crowns ) Assessment and Plan Assessment Anesthesia Assessment: Anesthesia Plan Discussed and Chart Reviewed Final Anesthetic Review Family History of Problems with Anesthesia: No History of Problems with Anesthesia: No NPO: Yes ASA Class: III and Emergency Final Preanesthetic Review: Meds/Allgs Chart Reviewed, Consent Obtained/Reviewed and Anes Risks/Benef Reviewed Patient Risk: Intermediate Procedure Risk: Intermediate Anesthetic Plan Anesthetic Plan: GA and Agree w/ Assess. and Plan Disposition: Standard PACU
--- NOTE | 2022-11-30 17:13 | W.PM.OPN ---
Operative Note Operative Note Date of Service: 11/30/22 Narrative: [address] [address] Operative Note Signed Patient: Randi Lowery MR#: [id number] : 1965 Acct:[id number] Age/Sex: 57 / F Loc: HO.SSS PreOperative Diagnosis:? Interstitial cystitis with pelvic pain Post Operative Diagnosis:? Interstitial cystitis with pelvic pain Procedure:? Hydrodistention Surgeon: Dr Mk Cornelius Anesthesia:? General Indications for procedure: ?interstitial cystitis Procedure: After informed consent was verified the patient was brought to the operating room and placed in a supine position.? Anesthesia was administered per protocol.? The patient was placed in a modified dorsal lithotomy position and prepped and draped in sterile fashion.? Safety pause time-out was observed.? Antibiotics being given. A 22 Fijian cystoscope was used to empty the bladder.? A mixture of bupivacaine lidocaine gel 20 cc was instilled into the bladder and allowed to sit for 2-3 minutes Hydrodistention of the bladder was performed.? The bladder was filled and allowed to sit for 2 minutes.? Filling was from a height of 1 m. Cystoscopy revealed glomerulations and collagenization consistent with interstitial cystitis. Second filling of the bladder was performed in similar fashion.? Terminal hematuria noted. A mixture of bupivacaine lidocaine gel 20 cc was instilled into the bladder. The the bladder was emptied.? The patient tolerated procedure well was extubated in operating room transferred in stable condition to the recovery area.? Appropriate postprocedure pain medication was provided.
[2022-11-30] MEDS: Phenazopyridine HCL 100 MG TABLET PO (17:28)
[2022-11-30] MEDS: oxyCODONE HCl Immed Release 5 MG TABLET PO (17:33)
[2022-11-30] MEDS: fentaNYL citrate/PF 100 MCG/2 ML VIAL 25 MCG IVPUSH ×2 (17:34→17:40)
== END 2022-11-30 18:12 | disposition home or self-care (01) ==
PROVIDERS: PCP Internal Medicine; Visit Provider Urology
PROC: 0T7B7ZZ Dilation of Bladder, Via Natural or Artificial Opening (ICD-10-PCS; CPT 52260; principal; 2022-11-30 16:50)
DX: N30.10 Interstitial cystitis (chronic) without hematuria (principal); R10.2 Pelvic and perineal pain; E78.00 Pure hypercholesterolemia, unspecified; J45.909 Unspecified asthma, uncomplicated; F41.1 Generalized anxiety disorder; Z63.4 Disappearance and death of family member; I47.1 Supraventricular tachycardia; Z79.51 Long term (current) use of inhaled steroids; Z79.899 Other long term (current) drug therapy; Z88.1 Allergy status to other antibiotic agents; Z88.8 Allergy status to other drugs, medicaments and biological substances
CPT/HCPCS: 52260; J1956; J2250; J2795; J3010

== ENCOUNTER 2023-02-24 14:17 | Outpatient (AMB) | payer OTHER, SELFPAY ==
--- NOTE | 2023-02-24 14:21 | MHC.OFFVIS ---
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 Pt confirmed NOT allergic to oxycodone Medication List - Last Reconciled 02/24/23 by Mk Cornelius MD adalimumab 40 mg subcut QWEEK albuterol sulfate 90 mcg/actuation (ProAir HFA) 2 puffs inhalation Q4-6H PRN baclofen 20 mg PO BID baclofen 0 mg PO clonazepam 1 mg PO BEDTIME diazepam 2 mg PO BEDTIME PRN 14 days dicyclomine 20 mg PO QID ezetimibe 10 mg PO QAM fluticasone propionate 110 mcg/actuation 1 puff inhalation BID loratadine 10 mg PO DAILY metoprolol succinate ER 12.5 mg PO DAILY olanzapine 7.5 mg PO BEDTIME omeprazole 20 mg PO DAILY ondansetron 4 mg PO BID PRN oxycodone 5 mg PO Q8H PRN 3 days oxycodone 5 mg PO Q8H PRN 3 days phenazopyridine (Pyridium) 100 mg PO TID PRN 4 days phenazopyridine (Pyridium) 200 mg PO Q8H PRN sertraline 150 mg PO QAM sucralfate 1 g PO QID trazodone 300 mg PO BEDTIME HPI HPI Comments History of Present Illness Details Randi is a pleasant female. She is a patient of Dr. Su. she seen for the following urologic conditions - interstitial cystitis Telemedicine evaluation 15 minute consultation Video attempted Doximity edd Recurrent interstitial cystitis Plan for cystoscopy hydrodistention Recent hospital admission for ulcerative colitis Interstitial cystitis Patient with interstitial cystitis and bladder pain which responded to therapeutic hydrodistention , Last hydrodistention August 2022 Was previously on every 3 month schedule but over the last year had been doing every 2 months Would like to have another cystoscopy - hydrodistention done risks benefits potential complications morbidity mortality reviewed all questions answered informed consent obtained [facility] Medical History Recent bereavement On beta morgan at home Anxiety SVT (supraventricular tachycardia) Depression Lab test negative for COVID-19 virus Back pain History of gastrostomy tube placement Hx of ulcerative colitis Hx of cystitis History of anxiety Asthma Elevated cholesterol Surgical History History of tubal ligation History of endometrial ablation History of bladder surgery Social History Are you a primary emergency care tech to a significant other at home: No Do you presently have visiting nurse or other home services: No Patient Tobacco Use Status: Never used Tobacco Tobacco use type: Cigarette Cigarettes Per Day: 5 Years Smoked: 22 Current occupational status: disabled Review of Systems Const All systems reviewed & are unremarkable except as noted in HPI and below Reports no additional complaints Resp Reports no additional complaints GI Reports no additional complaints Reports as per HPI Musc Reports no additional complaints Physical Exam Telemedicine evaluation Appropriate responses Regular breathing rate and rhythm HEENT Head: Yes normal to inspection Ears: hearing grossly normal bilaterally Eyes General: appearance normal, both eyes and all related structures Neck Neck: Yes normal visual inspection Chest Chest palpation & inspection: normal inspection of the chest Resp Effort & Inspection: normal respiratory effort and able to speak in complete sentences Assessment & Plan Assessment & Plan (1) Interstitial cystitis: Code(s): N30.10 - Interstitial cystitis (chronic) without hematuria Plan Risks, benefits and alternatives to therapy were discussed. These include but are not limited to infection, bleeding, damage to local organs and tissues, need for further interventions. Anesthetic risks regarding cardiac arrhythmia, blood clots, and potential mortality were discussed. The patient understands the typical recovery time and the outpatient nature of the procedure. After consideration of these risks the patient gives full informed consent and they wish to move ahead with the procedure. [place] distention Patient Instructions: Imaging studies, laboratory and physical exam results were discussed and reviewed in detail. No major barriers to patient understanding were identified. An opportunity to ask questions regarding the treatment plan was provided. All questions were answered. The patient expressed understanding and agreement with the above treatment plan. The patient is aware they should contact our office by phone for worsening of their current condition or the appearance of new urologic symptoms. Compliance is encouraged with any medications and followup testing that is ordered. It is a privilege to participate in the urologic care of your patient. If you have any questions or concerns regarding treatment for the above conditions, or other urologic issues, please do not hesitate to contact me. The office telephone contact is [phone]. This note is constructed using voice recognition software. While every effort has been made to ensure accuracy neuro urologist errors may have been included. Yours sincerely, Dr Mk Cornelius MD, BRADEN [facility] - Urology Providers of Expert, Compassionate Care for the Genitourinary System Telehealth Telehealth Location of provider rendering services: practice address Location of patient: address on file Patient Identification confirmed using: Name, : Yes Telehealth method: video Patient verbally consented to treatment: Yes Patient verbally consented to billing insurance company: Yes Patient informed of any privacy concerns related to visit: Yes Coding Level of Care Code Tele Est Pt Level 3 (09122) Diagnoses Interstitial cystitis N30.10
== END 2023-02-24 14:35 | disposition home or self-care (01) ==
LOC: HO.HUSH 14:17
PROVIDERS: PCP Internal Medicine; Visit Provider Urology
DX: N30.10 Interstitial cystitis (chronic) without hematuria (principal)
CPT/HCPCS: 99213

== ENCOUNTER → 2023-02-24 14:17 | Outpatient (BNVA) | payer OTHER, SELFPAY | PROVIDERS: PCP Internal Medicine; Visit Provider Urology ==

== ENCOUNTER 2023-03-01 14:02 | Day surgery (SDC) | payer OTHER, SELFPAY ==
[2023-03-01] VITALS (10 sets, daily range): BP systolic 114–137; BP diastolic 58–77; PULSE 78–95; RESP 14–20; TEMP 36.2–37.1; O2SAT 93–98; BMI 25.8
--- NOTE | 2023-03-01 14:29 | P.CONAN_ITS ---
HPI - Anesthesia Eval Consult details Narrative: for hydrodistension PMFSH Active Problems Active Problems: All Active Problems (Updated 06/17/22 @ 11:42 by Janay Palm, RN) Interstitial cystitis (Acute) Bladder spasm (Acute) Fracture of fifth metatarsal bone of left foot (Acute) Past Medical History Medical History Recent bereavement On beta morgan at home Anxiety SVT (supraventricular tachycardia) Depression Lab test negative for COVID-19 virus Back pain History of gastrostomy tube placement Hx of ulcerative colitis Hx of cystitis History of anxiety Asthma Elevated cholesterol Functional capacity: uses cane/walker Family History Family history of problems with anesthesia: No Surgical History Surgical History History of tubal ligation History of endometrial ablation History of bladder surgery History of Problems with Anesthesia: No Social History Social History Are you a primary career services manager to a significant other at home: No Do you presently have visiting nurse or other home services: No Patient Tobacco Use Status: Current everyday Tobacco user Tobacco use type: Cigarette Cigarettes Per Day: 2 Years Smoked: 22 Current occupational status: disabled Meds Allergies Allergy/AdvReac Type Severity Reaction Status Date / Time amoxicillin [From AUGMENTIN] Allergy Severe SEVERE Verified 02/24/23 14:24 DIARRHEA clavulanic acid Allergy Severe SEVERE Verified 02/24/23 14:24 [From AUGMENTIN] DIARRHEA Ksmdhvr-NZJ-BhH Reductase Allergy Intermediate muscle Verified 02/24/23 14:24 Inhibitor aches, [UWZGIEU-RPF-KGK REDUCTASE cramps INHIBITOR] acetaminophen [ACETAMINOPHEN] AdvReac Severe GI upset. Verified 02/24/23 14:24 Pt confirmed NOT allergic to oxycodone Home Medications Medication Instructions Recorded Confirmed Last Taken Type albuterol sulfate 90 mcg/actuation 2 puff inhalation Q4-6H PRN 04/25/20 02/24/23 04/13/22 History aerosol inhaler (ProAir HFA) Shortness Of Breath ezetimibe 10 mg tablet 10 mg PO QAM 04/25/20 02/24/23 09/07/22 06:30 History fluticasone propionate 110 1 puff inhalation BID 04/25/20 02/24/23 Unknown History mcg/actuation HFA aerosol inhaler loratadine 10 mg tablet 10 mg PO DAILY 04/25/20 02/24/23 10/21/20 History olanzapine 7.5 mg tablet 7.5 mg PO BEDTIME 04/25/20 02/24/23 Unknown History sertraline 100 mg tablet 150 mg PO QAM 04/25/20 02/24/23 09/07/22 06:30 History trazodone 150 mg tablet 300 mg PO BEDTIME 04/25/20 02/24/23 Unknown History adalimumab 40 mg/0.4 mL 40 mg subcut QWEEK 06/21/20 02/24/23 Unknown History subcutaneous pen kit clonazepam 1 mg tablet 1 mg PO BEDTIME 08/08/21 02/24/23 Unknown History dicyclomine 20 mg tablet 20 mg PO QID 08/08/21 02/24/23 09/07/22 06:30 History metoprolol succinate 25 mg 12.5 mg PO DAILY 08/08/21 02/24/23 09/07/22 06:30 History tablet,extended release 24 hr omeprazole 20 mg capsule,delayed 20 mg PO DAILY 11/03/21 02/24/23 09/07/22 06:30 History release baclofen 20 mg tablet 20 mg PO BID 02/19/22 02/24/23 Unknown History baclofen 10 mg tablet 0 mg PO 11/17/22 02/24/23 Unknown History ondansetron 4 mg disintegrating 4 mg PO BID PRN nausea/vomiting 11/17/22 02/24/23 Unknown History tablet sucralfate 1 gram tablet 1 g PO QID 11/17/22 02/24/23 Unknown History Exam Exam Date and Time: March 01, 2023 1429 Airway Mallampati Class: I TM Dist: >3cm Neck ROM: Full Loose/Missing/Broken Teeth: Yes, Upper and Lower Heart: ok Lungs: ok Assessment and Plan Assessment Anesthesia Assessment: Anesthesia Plan Discussed and Chart Reviewed Final Anesthetic Review Family History of Problems with Anesthesia: No History of Problems with Anesthesia: No NPO: Yes ASA Class: III Final Preanesthetic Review: No Changes in Pt Med Stat, Meds/Allgs Chart Reviewed, Consent Obtained/Reviewed and Anes Risks/Benef Reviewed Patient Risk: High Procedure Risk: Low Anesthetic Plan Anesthetic Plan: GA and Agree w/ Assess. and Plan Disposition: Standard PACU
[2023-03-01] MEDS: Lactated Ringers 1,000 ML 100 ML IVCONT (14:52)
--- NOTE | 2023-03-01 15:36 | P.OP_ITS ---
Operative Note Operative Note Date of Service: 03/01/23 Narrative: PreOperative Diagnosis:? Interstitial cystitis with pelvic pain Post Operative Diagnosis:? Interstitial cystitis with pelvic pain Procedure:? Hydrodistention Surgeon: Dr Mk Cornelius Anesthesia:? General Indications for procedure: ?interstitial cystitis Procedure: After informed consent was verified the patient was brought to the operating room and placed in a supine position.? Anesthesia was administered per protocol.? The patient was placed in a modified dorsal lithotomy position and prepped and draped in sterile fashion.? Safety pause time-out was observed.? Antibiotics being given. A 22 [place] cystoscope was used to empty the bladder.? A mixture of bupivacaine lidocaine gel 20 cc was instilled into the bladder and allowed to sit for 2-3 minutes Hydrodistention of the bladder was performed.? The bladder was filled and allowed to sit for 2 minutes.? Filling was from a height of 1 m. Cystoscopy revealed glomerulations and collagenization consistent with interstitial cystitis. Second filling of the bladder was performed in similar fashion.? Terminal hematuria noted. A mixture of bupivacaine lidocaine gel 20 cc was instilled into the bladder. The the bladder was emptied.? The patient tolerated procedure well was extubated in operating room transferred in stable condition to the recovery area.? Appropriate postprocedure pain medication was provided.
[2023-03-01] MEDS: oxyCODONE HCl Immed Release 5 MG TABLET PO (15:46)
[2023-03-01] MEDS: Phenazopyridine HCL 100 MG TABLET PO (15:46)
[2023-03-01] MEDS: fentaNYL citrate/PF 100 MCG/2 ML VIAL 50 MCG IVPUSH ×3 (15:49→16:13)
== END 2023-03-01 16:42 | disposition home or self-care (01) ==
PROVIDERS: PCP Internal Medicine; Visit Provider Urology
PROC: 0T7B7ZZ Dilation of Bladder, Via Natural or Artificial Opening (ICD-10-PCS; CPT 52260; principal; 2023-03-01 16:50)
DX: N30.10 Interstitial cystitis (chronic) without hematuria (principal); R10.2 Pelvic and perineal pain; E78.5 Hyperlipidemia, unspecified; J45.909 Unspecified asthma, uncomplicated; I47.1 Supraventricular tachycardia; F32.A Depression, unspecified; F41.9 Anxiety disorder, unspecified; F17.210 Nicotine dependence, cigarettes, uncomplicated; Z79.899 Other long term (current) drug therapy; Z88.1 Allergy status to other antibiotic agents; Z91.09 Other allergy status, other than to drugs and biological substances
CPT/HCPCS: 52260; J1956; J3010

== ENCOUNTER → 2023-03-01 14:02 | Outpatient (BNV) | payer OTHER, SELFPAY | PROVIDERS: PCP Internal Medicine; Visit Provider Urology | DX: N30.10 Interstitial cystitis (chronic) without hematuria (principal) | CPT/HCPCS: 52260 ==

== ENCOUNTER 2023-04-29 14:41 | Outpatient (AMB) | payer OTHER, SELFPAY ==
--- NOTE | 2023-04-29 14:42 | A.OFFVIS_ITS ---
Intake Intake Visit Reasons: follow up/pain Intake Note: Patient is present for Telephone Urology Med: none Antibiotic Allergy: amoxicillin Blood Thinner: none Pharmacy: [facility] Deputy Brand Inspector Required: No Allergies amoxicillin [From AUGMENTIN] Allergy (Severe, Verified 02/24/23 14:24) SEVERE DIARRHEA clavulanic acid [From AUGMENTIN] Allergy (Severe, Verified 02/24/23 14:24) SEVERE DIARRHEA Ctihfpp-LQF-KfK Reductase Inhibitor [UNLFNEA-ESP-BQP REDUCTASE INHIBITOR] Allergy (Intermediate, Verified 02/24/23 14:24) muscle aches, cramps acetaminophen [ACETAMINOPHEN] Adverse Reaction (Severe, Verified 02/24/23 14:24) GI upset. Pt confirmed NOT allergic to oxycodone HPI HPI Comments History of Present Illness Details Randi is a pleasant female. She is a patient of Dr. Su. she seen for the following urologic conditions - interstitial cystitis Telemedicine evaluation 15 minute consultation Video attempted Doximity edd Recurrent interstitial cystitis Plan for cystoscopy hydrodistention Recent hospital admission for ulcerative colitis Interstitial cystitis Patient with interstitial cystitis and bladder pain which responded to therapeutic hydrodistention , Last hydrodistention Feb 2023 Was previously on every 3 month schedule but over the last year had been doing every 2 months Would like to have another cystoscopy - hydrodistention done risks benefits po tential complications morbidity mortality reviewed all questions answered informed consent obtained [facility] Medical History Recent bereavement On beta morgan at home Anxiety SVT (supraventricular tachycardia) Depression Lab test negative for COVID-19 virus Back pain History of gastrostomy tube placement Hx of ulcerative colitis Hx of cystitis History of anxiety Asthma Elevated cholesterol Surgical History History of tubal ligation History of endometrial ablation History of bladder surgery Social History Are you a primary career center director to a significant other at home: No Do you presently have visiting nurse or other home services: No Patient Tobacco Use Status: Never used Tobacco Tobacco use type: Cigarette Cigarettes Per Day: 2 Years Smoked: 22 Current occupational status: disabled Review of Systems Const All systems reviewed & are unremarkable except as noted in HPI and below Reports no additional complaints Resp Reports no additional complaints GI Reports no additional complaints Reports as per HPI Musc Reports no additional complaints Physical Exam Telemedicine evaluation Appropriate responses Regular breathing rate and rhythm HEENT Head: Yes normal to inspection Ears: hearing grossly normal bilaterally Eyes General: appearance normal, both eyes and all related structures Neck Neck: Yes normal visual inspection Chest Chest palpation & inspection: normal inspection of the chest Resp Effort & Inspection: normal respiratory effort and able to speak in complete sentences Assessment & Plan Assessment & Plan (1) Interstitial cystitis: Code(s): N30.10 - Interstitial cystitis (chronic) without hematuria Plan Hydrodistention Medications: Refilled oxycodone Partial Fill upon patient request. 5 mg PO Q8H 3 days PRN 14 caps 0RF pain (scale score 4-6) Patient Instructions: Imaging studies, laboratory and physical exam results were discussed and reviewed in detail. No major barriers to patient understanding were identified. An opportunity to ask questions regarding the treatment plan was provided. All questions were answered. The patient expressed understanding and agreement with the above treatment plan. The patient is aware they should contact our office by phone for worsening of their current condition or the appearance of new urologic symptoms. Compliance is encouraged with any medications and followup testing that is ordered. It is a privilege to participate in the urologic care of your patient. If you have any questions or concerns regarding treatment for the above conditions, or other urologic issues, please do not hesitate to contact me. The office telephone contact is [phone]. This note is constructed using voice recognition software. While every effort has been made to ensure accuracy client leader errors may have been included. Yours sincerely, Dr Mk Cornelius MD, BRAD[facility] - Urology Providers of Expert, Compassionate Care for the Genitourinary System Telehealth Telehealth Location of provider rendering services: practice address Location of patient: address on file Patient Identification confirmed using: Name, : Yes Telehealth method: video Patient verbally consented to treatment: Yes Patient verbally consented to billing insurance company: Yes Patient informed of any privacy concerns related to visit: Yes Coding Level of Care Code Tele Est Pt Level 4 (59064) Diagnoses Interstitial cystitis N30.10
== END 2023-04-29 15:51 | disposition home or self-care (01) ==
LOC: HO.HUSH 14:41
PROVIDERS: PCP Internal Medicine; Visit Provider Urology
DX: N30.10 Interstitial cystitis (chronic) without hematuria (principal)
CPT/HCPCS: 99214

== ENCOUNTER → 2023-04-29 14:41 | Outpatient (BNVA) | payer OTHER, SELFPAY | PROVIDERS: PCP Internal Medicine; Visit Provider Urology ==

== ENCOUNTER 2023-05-03 15:24 | Day surgery (SDC) | payer OTHER, SELFPAY ==
[2023-05-03] VITALS (13 sets, daily range): BP systolic 93–151; BP diastolic 50–81; PULSE 67–80; RESP 13–18; TEMP 36.1–36.6; O2SAT 97–100; BMI 25.0
--- NOTE | 2023-05-03 16:37 | P.CONAN_ITS ---
HPI - Anesthesia Eval Consult details Narrative: interstitial cystitis PMFSH Active Problems All Active Problems Interstitial cystitis (Acute) Bladder spasm (Acute) Fracture of fifth metatarsal bone of left foot (Acute) Past Medical History Medical History Recent bereavement On beta morgan at home Anxiety SVT (supraventricular tachycardia) Depression Lab test negative for COVID-19 virus Back pain History of gastrostomy tube placement Hx of ulcerative colitis Hx of cystitis History of anxiety Asthma Elevated cholesterol Family History Family history of problems with anesthesia: No Surgical History Surgical History History of tubal ligation History of endometrial ablation History of bladder surgery History of Problems with Anesthesia: No Social History Social History Are you a primary career services officer to a significant other at home: No Do you presently have visiting nurse or other home services: No Patient Tobacco Use Status: Never used Tobacco Tobacco use type: Cigarette Cigarettes Per Day: 2 Years Smoked: 22 Use of substances other than those prescribed or required for medical reasons: No Are you DNR?: No Advance Directives: No Advance Directives Information Provided: Yes Current occupational status: disabled Meds Allergies Allergy/AdvReac Type Severity Reaction Status Date / Time amoxicillin [From AUGMENTIN] Allergy Severe SEVERE Verified 02/24/23 14:24 DIARRHEA clavulanic acid Allergy Severe SEVERE Verified 02/24/23 14:24 [From AUGMENTIN] DIARRHEA Wuuxfzx-QXQ-MaO Reductase Allergy Intermediate muscle Verified 02/24/23 14:24 Inhibitor aches, [ZZNDVQJ-YOD-VAN REDUCTASE cramps INHIBITOR] acetaminophen [ACETAMINOPHEN] AdvReac Severe GI upset. Verified 02/24/23 14:24 Pt confirmed NOT allergic to oxycodone Active Medications: Current Medications Levofloxacin (Levaquin) 500 mg in 100 mls @ 100 mls/hr IV PREOP ONE Stop: 05/03/23 17:19 Home Medications Medication Instructions Recorded Confirmed Last Taken Type albuterol sulfate 90 mcg/actuation 2 puff inhalation Q4-6H PRN 04/25/20 02/24/23 04/13/22 History aerosol inhaler (ProAir HFA) Shortness Of Breath ezetimibe 10 mg tablet 10 mg PO QAM 04/25/20 02/24/23 09/07/22 06:30 History fluticasone propionate 110 1 puff inhalation BID 04/25/20 02/24/23 Unknown History mcg/actuation HFA aerosol inhaler loratadine 10 mg tablet 10 mg PO DAILY 04/25/20 02/24/23 10/21/20 History olanzapine 7.5 mg tablet 7.5 mg PO BEDTIME 04/25/20 02/24/23 Unknown History sertraline 100 mg tablet 150 mg PO QAM 04/25/20 02/24/23 09/07/22 06:30 History trazodone 150 mg tablet 300 mg PO BEDTIME 04/25/20 02/24/23 Unknown History adalimumab 40 mg/0.4 mL 40 mg subcut QWEEK 06/21/20 02/24/23 Unknown History subcutaneous pen kit clonazepam 1 mg tablet 1 mg PO BEDTIME 08/08/21 02/24/23 Unknown History dicyclomine 20 mg tablet 20 mg PO QID 08/08/21 02/24/23 09/07/22 06:30 History metoprolol succinate 25 mg 12.5 mg PO DAILY 08/08/21 02/24/23 09/07/22 06:30 History tablet,extended release 24 hr omeprazole 20 mg capsule,delayed 20 mg PO DAILY 11/03/21 02/24/23 09/07/22 06:30 History release baclofen 20 mg tablet 20 mg PO BID 02/19/22 02/24/23 Unknown History baclofen 10 mg tablet 0 mg PO 11/17/22 02/24/23 Unknown History ondansetron 4 mg disintegrating 4 mg PO BID PRN nausea/vomiting 11/17/22 02/24/23 Unknown History tablet sucralfate 1 gram tablet 1 g PO QID 11/17/22 02/24/23 Unknown History Exam Height,Weight and Vital Signs: Height 5 ft 5 in Weight 68.039 kg Last Vital Signs Temp 97 F 05/03/23 16:23 Pulse 72 05/03/23 16:23 Resp 16 05/03/23 16:23 BP 130/61 05/03/23 16:23 Pulse Ox 97 05/03/23 16:23 O2 Del Method Room Air 05/03/23 16:23 Airway Mallampati Class: II TM Dist: >3cm Loose/Missing/Broken Teeth: No Heart: RRR Lungs: CTA Assessment and Plan Assessment Anesthesia Assessment: Anesthesia Plan Discussed and Chart Reviewed Final Anesthetic Review Family History of Problems with Anesthesia: No History of Problems with Anesthesia: No NPO: Yes ASA Class: III Final Preanesthetic Review: No Changes in Pt Med Stat, Meds/Allgs Chart Reviewed, Consent Obtained/Reviewed and Anes Risks/Benef Reviewed Patient Risk: Intermediate Procedure Risk: Low Anesthetic Plan Anesthetic Plan: MAC: Disposition: Standard PACU
--- NOTE | 2023-05-03 16:38 | MHC.SHP ---
Pre-Procedural Eval Section A Date of Service: 05/03/23 The patient is an INPATIENT: No Changes since office visit: No Cold of Flu in the past 2 weeks, No New Medical Problems, No Changes in Medication and No Patient answered all questions The History & Physical has been completed within 30 days and I have reviewed it.: No Section B Chief Complaint: Interstitial cystitis (chronic),bladder spasms, Relevant Family History (Specify if Yes): No Relevant Social History: None Present Medications: see Short Stay Collaborative assessment Medical History: Significant History History of Previous Operations: Relevant previous surgery/procedure and date(s) Allergies: Allergies Allergy/AdvReac Type Severity Reaction Status Date / Time amoxicillin [From AUGMENTIN] Allergy Severe SEVERE Verified 02/24/23 14:24 DIARRHEA clavulanic acid Allergy Severe SEVERE Verified 02/24/23 14:24 [From AUGMENTIN] DIARRHEA Mrsatus-AOU-VmQ Reductase Allergy Intermediate muscle Verified 02/24/23 14:24 Inhibitor aches, [EIRFPHZ-BHS-WTO REDUCTASE cramps INHIBITOR] acetaminophen [ACETAMINOPHEN] AdvReac Severe GI upset. Verified 02/24/23 14:24 Pt confirmed NOT allergic to oxycodone Review of Systems Sugical H&P ROS: Negative: Constitution, Cardiovascular, Respiratory, Neurological, Psychiatric, Hem-Onc, Allergic/Immunologic, Gastrointestinal, Genitourinary, Musculoskeletal, Integumentary, Endocrine and Eyes/Ears/Nose/Throat Exam Surgical H&P Exam: Normal: HEENT, Normal: Heart, Normal: Lungs, Normal: Extremities, Normal: Abdomen, Normal: Skin and Normal: Neurological Plan Diagnosis/Plan: Unchanged (cystoscopy, hydrodistention) I have reviewed the history and physical and performed a pertinent physical examination on my patient. No changes have occurred unless specified. Time Spent With Patient Time: Total time managing care of this patient today ____ minutes.
--- NOTE | 2023-05-03 18:23 | W.PM.OPN ---
Operative Note Operative Note Date of Service: 05/03/23 Narrative: PreOperative Diagnosis:? Interstitial cystitis with pelvic pain Post Operative Diagnosis:? Interstitial cystitis with pelvic pain Procedure:? Hydrodistention Surgeon: Dr Mk Cornelius Anesthesia:? General Indications for procedure: ?interstitial cystitis Procedure: After informed consent was verified the patient was brought to the operating room and placed in a supine position.? Anesthesia was administered per protocol.? The patient was placed in a modified dorsal lithotomy position and prepped and draped in sterile fashion.? Safety pause time-out was observed.? Antibiotics being given. A 22 [place] cystoscope was used to empty the bladder.? A mixture of bupivacaine lidocaine gel 20 cc was instilled into the bladder and allowed to sit for 2-3 minutes Hydrodistention of the bladder was performed.? The bladder was filled and allowed to sit for 2 minutes.? Filling was from a height of 1 m. Cystoscopy revealed glomerulations and collagenization consistent with interstitial cystitis. Second filling of the bladder was performed in similar fashion.? Terminal hematuria noted. A mixture of bupivacaine lidocaine gel 20 cc was instilled into the bladder. The the bladder was emptied.? The patient tolerated procedure well was extubated in operating room transferred in stable condition to the recovery area.? Appropriate postprocedure pain medication was provided.
[2023-05-03] MEDS: Phenazopyridine HCL 100 MG TABLET PO (18:31)
[2023-05-03] MEDS: fentaNYL citrate/PF 100 MCG/2 ML VIAL 25 MCG IVPUSH ×3 (18:33→18:50)
[2023-05-03] MEDS: oxyCODONE HCl Immed Release 5 MG TABLET PO (19:11)
== END 2023-05-03 19:33 | disposition home or self-care (01) ==
PROVIDERS: PCP Internal Medicine; Visit Provider Urology
PROC: 0T7B7ZZ Dilation of Bladder, Via Natural or Artificial Opening (ICD-10-PCS; CPT 52260; principal; 2023-05-03 16:40)
DX: N30.10 Interstitial cystitis (chronic) without hematuria (principal); N32.89 Other specified disorders of bladder; J45.909 Unspecified asthma, uncomplicated
CPT/HCPCS: 52260; J1956; J2405; J2704; J3010

== ENCOUNTER → 2023-05-03 15:24 | Outpatient (BNV) | payer OTHER, SELFPAY | PROVIDERS: PCP Internal Medicine; Visit Provider Urology | DX: N30.10 Interstitial cystitis (chronic) without hematuria (principal) | CPT/HCPCS: 52260 ==

== ENCOUNTER 2023-05-11 11:23 | Outpatient (AMB) | payer OTHER, SELFPAY ==
--- NOTE | 2023-05-11 11:29 | MHC.OFFVIS ---
Intake Intake Visit Reasons: post op (2 month hydro) Allergies amoxicillin [From AUGMENTIN] Allergy (Severe, Verified 02/24/23 14:24) SEVERE DIARRHEA clavulanic acid [From AUGMENTIN] Allergy (Severe, Verified 02/24/23 14:24) SEVERE DIARRHEA Hfjixkg-CGK-LfA Reductase Inhibitor [CGLSKQG-HCO-ISQ REDUCTASE INHIBITOR] Allergy (Intermediate, Verified 02/24/23 14:24) muscle aches, cramps acetaminophen [ACETAMINOPHEN] Adverse Reaction (Severe, Verified 02/24/23 14:24) GI upset. Pt confirmed NOT allergic to oxycodone HPI HPI Comments History of Present Illness Details Randi is a pleasant female. She is a patient of Dr. Su. she seen for the following urologic conditions - interstitial cystitis Telemedicine evaluation 15 minute consultation Video attempted Doximity edd Recurrent interstitial cystitis Did respond to last hydrodistention Interested in possible rescue solutions as symptoms progress in June Interstitial cystitis Patient with interstitial cystitis and bladder pain which responded to therapeutic hydrodistention , Last hydrodistention - Apr 2023 Was previously on every 3 month schedule but over the last year had been doing every 2 months Would like to have another cystoscopy - hydrodistention done risks benefits potential complications morbidity mortality reviewed all questions answered informed consent obtained [facility] Medical History Recent bereavement On beta morgan at home Anxiety SVT (supraventricular tachycardia) Depression Lab test negative for COVID-19 virus Back pain History of gastrostomy tube placement Hx of ulcerative colitis Hx of cystitis History of anxiety Asthma Elevated cholesterol Surgical History History of tubal ligation History of endometrial ablation History of bladder surgery Are you a primary doggy daycare activities director to a significant other at home: No Do you presently have visiting nurse or other home services: No Comment: medicated in pacu Patient Tobacco Use Status: Never used Tobacco Tobacco use type: Cigarette Cigarettes Per Day: 2 Years Smoked: 22 Current occupational status: disabled Review of Systems Const All systems reviewed & are unremarkable except as noted in HPI and below Reports no additional complaints Resp Reports no additional complaints GI Reports no additional complaints Reports as per HPI Musc Reports no additional complaints Physical Exam Telemedicine evaluation Appropriate responses Regular breathing rate and rhythm HEENT Head: Yes normal to inspection Ears: hearing grossly normal bilaterally Eyes General: appearance normal, both eyes and all related structures Neck Neck: Yes normal visual inspection Chest Chest palpation & inspection: normal inspection of the chest Resp Effort & Inspection: normal respiratory effort and able to speak in complete sentences Assessment & Plan Assessment & Plan (1) Interstitial cystitis: Code(s): N30.10 - Interstitial cystitis (chronic) without hematuria Plan Possible Trial refuse lesions when has symptoms recur in June Patient Instructions: Imaging studies, laboratory and physical exam results were discussed and reviewed in detail. No major barriers to patient understanding were identified. An opportunity to ask questions regarding the treatment plan was provided. All questions were answered. The patient expressed understanding and agreement with the above treatment plan. The patient is aware they should contact our office by phone for worsening of their current condition or the appearance of new urologic symptoms. Compliance is encouraged with any medications and followup testing that is ordered. It is a privilege to participate in the urologic care of your patient. If you have any questions or concerns regarding treatment for the above conditions, or other urologic issues, please do not hesitate to contact me. The office telephone contact is [phone]. This note is constructed using voice recognition software. While every effort has been made to ensure accuracy pipe roller errors may have been included. Yours sincerely, Dr Mk Cornelius MD, [facility] - Urology Providers of Expert, Compassionate Care for the Genitourinary System Telehealth Telehealth Location of provider rendering services: practice address Location of patient: address on file Patient Identification confirmed using: Name, : Yes Telehealth method: video Patient verbally consented to treatment: Yes Patient verbally consented to billing insurance company: Yes Patient informed of any privacy concerns related to visit: Yes Coding Level of Care Code Tele Est Pt Level 3 (15048) Diagnoses Interstitial cystitis N30.10
== END 2023-05-11 14:02 | disposition home or self-care (01) ==
LOC: HO.HUSH 11:24
PROVIDERS: PCP Internal Medicine; Visit Provider Urology
DX: N30.10 Interstitial cystitis (chronic) without hematuria (principal)
CPT/HCPCS: 99213

== ENCOUNTER → 2023-05-11 11:23 | Outpatient (BNVA) | payer OTHER, SELFPAY | PROVIDERS: PCP Internal Medicine; Visit Provider Urology ==

== ENCOUNTER 2023-07-14 13:59 | Outpatient (AMB) | payer OTHER, SELFPAY ==
--- NOTE | 2023-07-14 13:59 | A.OFFVIS_ITS ---
Intake Intake Visit Reasons: Hydrodistention follow up Intake Note: Patient is Present for Telephone Follow Up Urology Med: None Antibiotic Allergy: Amoxicillin Blood Thinner: None Allergies amoxicillin [From AUGMENTIN] Allergy (Severe, Verified 07/14/23 14:01) SEVERE DIARRHEA clavulanic acid [From AUGMENTIN] Allergy (Severe, Verified 07/14/23 14:01) SEVERE DIARRHEA Dancsrp-RAM-LbR Reductase Inhibitor [PUBJRAK-NZP-CYY REDUCTASE INHIBITOR] All ergy (Intermediate, Verified 07/14/23 14:01) muscle aches, cramps acetaminophen [ACETAMINOPHEN] Adverse Reaction (Severe, Verified 07/14/23 14:01) GI upset. Pt confirmed NOT allergic to oxycodone Medication List - Last Reconciled 07/14/23 by Mk Cornelius MD adalimumab 40 mg subcut QWEEK albuterol sulfate 90 mcg/actuation (ProAir HFA) 2 puffs inhalation Q4-6H PRN baclofen 20 mg PO BID baclofen 0 mg PO clonazepam 1 mg PO BEDTIME diazepam 2 mg PO BEDTIME PRN 14 days dicyclomine 20 mg PO QID ezetimibe 10 mg PO QAM fluticasone propionate 110 mcg/actuation 1 puff inhalation BID loratadine 10 mg PO DAILY metoprolol succinate ER 12.5 mg PO DAILY olanzapine 7.5 mg PO BEDTIME omeprazole 20 mg PO DAILY ondansetron 4 mg PO BID PRN oxycodone 5 mg PO Q8H PRN 3 days oxycodone 5 mg PO Q8H PRN 3 days oxycodone 5 mg PO Q8H PRN 3 days oxycodone 5 mg PO Q8H PRN 3 days phenazopyridine (Pyridium) 100 mg PO TID PRN 4 days phenazopyridine (Pyridium) 200 mg PO Q8H PRN sertraline 150 mg PO QAM sucralfate 1 g PO QID trazodone 300 mg PO BEDTIME HPI HPI Comments History of Present Illness Details Randi is a pleasant female. She is a patient of Dr. Su. she seen for the following urologic conditions - interstitial cystitis Telemedicine evaluation 15 minute consultation Video attempted Doximity edd Recurrent interstitial cystitis Did respond to last hydrodistention Interested in possible rescue solutions to start Interstitial cystitis Patient with interstitial cystitis and bladder pain which responded to therapeutic hydrodistention Last hydrodistention - Apr 2023 Was previously on every 3 month schedule but over the last year had been doing every 2 months Would like to have another cystoscopy - hydrodistention done risks benefits po tential complications morbidity mortality reviewed all questions answered informed consent obtained [facility] Medical History Recent bereavement On beta morgan at home Anxiety SVT (supraventricular tachycardia) Depression Lab test negative for COVID-19 virus Back pain History of gastrostomy tube placement Hx of ulcerative colitis Hx of cystitis History of anxiety Asthma Elevated cholesterol Surgical History History of tubal ligation History of endometrial ablation History of bladder surgery Social History Are you a primary manager managed care to a significant other at home: No Do you presently have visiting nurse or other home services: No Comment: medicated in pacu Patient Tobacco Use Status: Never used Tobacco Tobacco use type: Cigarette Cigarettes Per Day: 2 Years Smoked: 22 Current occupational status: disabled Assessment & Plan Assessment & Plan (1) Interstitial cystitis: Code(s): N30.10 - Interstitial cystitis (chronic) without hematuria Plan Trial rescue solutions Medications: Refilled oxycodone Partial Fill upon patient request. 5 mg PO Q8H PRN 14 caps 0RF pain (scale score 4-6) 3 days Patient Instructions: Imaging studies, laboratory and physical exam results were discussed and reviewed in detail. No major barriers to patient understanding were identified. An opportunity to ask questions regarding the treatment plan was provided. All questions were answered. The patient expressed understanding and agreement with the above treatment plan. The patient is aware they should contact our office by phone for worsening of their current condition or the appearance of new urologic symptoms. Compliance is encouraged with any medications and followup testing that is ordered. It is a privilege to participate in the urologic care of your patient. If you have any questions or concerns regarding treatment for the above conditions, or other urologic issues, please do not hesitate to contact me. The office telephone contact is [phone]. This note is constructed using voice recognition software. While every effort has been made to ensure accuracy collector of internal revenue errors may have been included. Yours sincerely, Dr Mk Cornelius MD, [facility] - Urology Providers of Expert, Compassionate Care for the Genitourinary System Telehealth Telehealth Location of provider rendering services: practice address Location of patient: address on file Patient Identification confirmed using: Name, : Yes Telehealth method: video Patient verbally consented to treatment: Yes Patient verbally consented to billing insurance company: Yes Patient informed of any privacy concerns related to visit: Yes Coding Level of Care Code Tele Est Pt Level 3 (48720) Diagnoses Interstitial cystitis N30.10
== END 2023-07-14 14:54 | disposition home or self-care (01) ==
LOC: HO.HUSH 13:59
PROVIDERS: PCP Internal Medicine; Visit Provider Urology
DX: N30.10 Interstitial cystitis (chronic) without hematuria (principal)
CPT/HCPCS: 99213

== ENCOUNTER → 2023-07-14 13:59 | Outpatient (BNVA) | payer OTHER, SELFPAY | PROVIDERS: PCP Internal Medicine; Visit Provider Urology ==

== ENCOUNTER → 2023-07-15 12:56 | Outpatient (BNVA) | payer OTHER, SELFPAY | PROVIDERS: PCP Internal Medicine; Visit Provider Urology | DX: N30.10 Interstitial cystitis (chronic) without hematuria (principal) | CPT/HCPCS: 51700; 51701 ==

== ENCOUNTER → 2023-07-16 12:46 | Outpatient (BNVA) | payer OTHER, SELFPAY | PROVIDERS: PCP Internal Medicine; Visit Provider Urology | DX: N30.10 Interstitial cystitis (chronic) without hematuria (principal) | CPT/HCPCS: 51701 ==

== ENCOUNTER → 2023-07-19 12:48 | Outpatient (BNVA) | payer OTHER, SELFPAY | PROVIDERS: PCP Internal Medicine; Visit Provider Urology | DX: N30.10 Interstitial cystitis (chronic) without hematuria (principal) | CPT/HCPCS: 51700; 51701 ==

== ENCOUNTER → 2023-07-20 12:42 | Outpatient (BNVA) | payer OTHER, SELFPAY | PROVIDERS: PCP Internal Medicine; Visit Provider Urology | DX: N30.10 Interstitial cystitis (chronic) without hematuria (principal) | CPT/HCPCS: 51700; 51701 ==

== ENCOUNTER 2023-08-03 07:54 | Day surgery (SDC) | payer OTHER, SELFPAY ==
[2023-08-03] VITALS (7 sets, daily range): BP systolic 115–133; BP diastolic 63–85; PULSE 63–98; RESP 16–18; TEMP 36.2–36.8; O2SAT 98–100; BMI 19.7
--- NOTE | 2023-08-03 08:13 | HO.ANESPROP2 ---
HPI - Anesthesia Eval Consult details Narrative: for cysto, hydrodistension PMFSH Active Problems Active Problems: All Active Problems (Updated 06/17/22 @ 11:42 by Janay Palm RN) Interstitial cystitis (Acute) Bladder spasm (Acute) Fracture of fifth metatarsal bone of left foot (Acute) Past Medical History Medical History Recent bereavement On beta morgan at home Anxiety SVT (supraventricular tachycardia) Depression Lab test negative for COVID-19 virus Back pain History of gastrostomy tube placement Hx of ulcerative colitis Hx of cystitis History of anxiety Asthma Elevated cholesterol Family History Family history of problems with anesthesia: No Surgical History Surgical History History of tubal ligation History of endometrial ablation History of bladder surgery History of Problems with Anesthesia: No Social History Social History Are you a primary critical care unit manager to a significant other at home: No Do you presently have visiting nurse or other home services: No Comment: medicated in pacu Patient Tobacco Use Status: Current everyday Tobacco user Tobacco use type: Cigarette Cigarettes Per Day: 4 Years Smoked: 22 Date Education Initiated: 08/03/23 Use of substances other than those prescribed or required for medical reasons: No Are you DNR?: No Advance Directives: No Advance Directives Information Provided: Yes Current occupational status: disabled Meds Allergies Allergy/AdvReac Type Severity Reaction Status Date / Time amoxicillin [From AUGMENTIN] Allergy Severe SEVERE Verified 07/14/23 14:01 DIARRHEA clavulanic acid Allergy Severe SEVERE Verified 07/14/23 14:01 [From AUGMENTIN] DIARRHEA Krkxbjr-TJI-AwQ Reductase Allergy Intermediate muscle Verified 07/14/23 14:01 Inhibitor aches, [ENPNYBJ-CCL-GGS REDUCTASE cramps INHIBITOR] acetaminophen [ACETAMINOPHEN] AdvReac Severe GI upset. Verified 07/14/23 14:01 Pt confirmed NOT allergic to oxycodone Home Medications Medication Instructions Recorded Confirmed Last Taken Type albuterol sulfate 90 mcg/actuation 2 puff inhalation Q4-6H PRN 04/25/20 07/14/23 04/13/22 History aerosol inhaler (ProAir HFA) Shortness Of Breath ezetimibe 10 mg tablet 10 mg PO QAM 04/25/20 07/14/23 09/07/22 06:30 History fluticasone propionate 110 1 puff inhalation BID 04/25/20 07/14/23 Unknown History mcg/actuation HFA aerosol inhaler loratadine 10 mg tablet 10 mg PO DAILY 04/25/20 07/14/23 10/21/20 History olanzapine 7.5 mg tablet 7.5 mg PO BEDTIME 04/25/20 07/14/23 Unknown History sertraline 100 mg tablet 150 mg PO QAM 04/25/20 07/14/23 09/07/22 06:30 History trazodone 150 mg tablet 300 mg PO BEDTIME 04/25/20 07/14/23 Unknown History adalimumab 40 mg/0.4 mL 40 mg subcut QWEEK 06/21/20 07/14/23 Unknown History subcutaneous pen kit clonazepam 1 mg tablet 1 mg PO BEDTIME 08/08/21 07/14/23 Unknown History dicyclomine 20 mg tablet 20 mg PO QID 08/08/21 07/14/23 09/07/22 06:30 History metoprolol succinate 25 mg 12.5 mg PO DAILY 08/08/21 07/14/23 09/07/22 06:30 History tablet,extended release 24 hr omeprazole 20 mg capsule,delayed 20 mg PO DAILY 11/03/21 07/14/23 09/07/22 06:30 History release baclofen 20 mg tablet 20 mg PO BID 02/19/22 07/14/23 Unknown History baclofen 10 mg tablet 0 mg PO 11/17/22 07/14/23 Unknown History ondansetron 4 mg disintegrating 4 mg PO BID PRN nausea/vomiting 11/17/22 07/14/23 Unknown History tablet sucralfate 1 gram tablet 1 g PO QID 11/17/22 07/14/23 Unknown History Exam Height,Weight and Vital Signs: Height 5 ft 5 in Weight 53.705 kg Airway Mallampati Class: I TM Dist: >3cm Neck ROM: Full Loose/Missing/Broken Teeth: Yes, Upper and Lower Heart: ok Lungs: ok Assessment and Plan Assessment Anesthesia Assessment: Anesthesia Plan Discussed and Chart Reviewed Final Anesthetic Review Family History of Problems with Anesthesia: No History of Problems with Anesthesia: No NPO: Yes ASA Class: III Final Preanesthetic Review: No Changes in Pt Med Stat, Meds/Allgs Chart Reviewed and Anes Risks/Benef Reviewed Patient Risk: Intermediate Procedure Risk: Low Anesthetic Plan Anesthetic Plan: GA and Agree w/ Assess. and Plan Disposition: Standard PACU
[2023-08-03] MEDS: Lactated Ringers 1,000 ML 50 ML IVCONT (08:42)
--- NOTE | 2023-08-03 09:46 | MHC.SHP ---
Pre-Procedural Eval Section A - 24 Hr Update-Section A only Date of Service: 08/03/23 The patient is an INPATIENT: No Section B - Complete if H&P > 30 days Chief Complaint: Interstitial cystitis (chronic) without hematuria Allergies: Allergies Allergy/AdvReac Type Severity Reaction Status Date / Time amoxicillin [From AUGMENTIN] Allergy Severe SEVERE Verified 07/14/23 14:01 DIARRHEA clavulanic acid Allergy Severe SEVERE Verified 07/14/23 14:01 [From AUGMENTIN] DIARRHEA Uzavivp-JCE-WqW Reductase Allergy Intermediate muscle Verified 07/14/23 14:01 Inhibitor aches, [GJHSBKU-VII-GAV REDUCTASE cramps INHIBITOR] acetaminophen [ACETAMINOPHEN] AdvReac Severe GI upset. Verified 07/14/23 14:01 Pt confirmed NOT allergic to oxycodone Plan Diagnosis/Plan: Unchanged I have reviewed the history and physical and performed a pertinent physical examination on my patient. No changes have occurred unless specified. Cystoscopy Hydrodistension Time Spent With Patient Time: Total time managing care of this patient today ____ minutes.
--- NOTE | 2023-08-03 10:35 | W.PM.OPN ---
Operative Note Operative Note Date of Service: 08/03/23 Narrative: PREOP DIAGNOSIS: Interstitial cystitis, pelvic pain POSTOP DIAGNOSIS: Interstitial cystitis, pelvic pain PROCEDURE: CYSTOSCOPY HYDRODISTENTION, BLADDER INSTILLATION Anethesia: General Surgeon: Dr. Tj Villa Indications for procedure: ?interstitial cystitis Details of procedure: The patient was brought into the operating room placed on the OR table in supine position. 2 g of Ancef IV. General anesthesia was administered. The patient was repositioned into lithotomy position, prepped and draped in the usual sterile fashion. Time-out was done per protocol. 2% lidocaine jelly was inserted transurethrally. A 22 fr cystoscope was placed transurethrally into the bladder. Urine was drained from the bladder measuring 75 mL. Urine was sent for culture. The right and left ureteral orifices were visualized. The entire bladder was visualized. There were no suspicious bladder lesions seen. There were mild trabeculations noted. The bladder was filled with sterile water at 80 cm of water pressure under gravity. The bladder was distended for 3 minutes. Bladder capacity measured 700 mL. Revisualization of the bladder, noted minimal glomerulations. No Herberth ulcerations. The bladder was refilled with sterile water again at 80 cm of water pressure under gravity. The bladder was distended for 3 minutes. The fluid was drained from the bladder and measured 700 mL. The cystoscope was removed. 2% lidocaine urojet was passed transurethrally, Solution of (1% lidocaine plain, 15 mL, 0.5 % Marcaine 15 mL mixed with 30, 000 units of heparin concentration 5000 units per mL total of 6 mL hepaine) instilled transurethrally into the bladder. The patient was brought out of anesthesia and taken to recovery in stable condition. Complications: None Drains: none
[2023-08-03] MEDS: Phenazopyridine HCL 200 MG TABLET PO (10:58)
== END 2023-08-03 12:26 | disposition home or self-care (01) ==
PROVIDERS: PCP Internal Medicine; Visit Provider Urology
PROC: 0T7B7ZZ Dilation of Bladder, Via Natural or Artificial Opening (ICD-10-PCS; CPT 52260; principal; 2023-08-03 08:40)
DX: N30.10 Interstitial cystitis (chronic) without hematuria (principal); N32.89 Other specified disorders of bladder; J45.909 Unspecified asthma, uncomplicated; E78.00 Pure hypercholesterolemia, unspecified; F32.A Depression, unspecified; Z63.4 Disappearance and death of family member; Z79.51 Long term (current) use of inhaled steroids; Z79.899 Other long term (current) drug therapy; Z88.1 Allergy status to other antibiotic agents; Z88.8 Allergy status to other drugs, medicaments and biological substances; Z98.890 Other specified postprocedural states; F17.210 Nicotine dependence, cigarettes, uncomplicated
CPT/HCPCS: 52260; 52283; 87086; J0690; J1170; J1644; J2250; J2704; J2795; J3010

== ENCOUNTER → 2023-08-03 07:54 | Outpatient (BNV) | payer OTHER, SELFPAY | PROVIDERS: PCP Internal Medicine; Visit Provider Urology | DX: N30.10 Interstitial cystitis (chronic) without hematuria (principal) | CPT/HCPCS: 52260 ==

== ENCOUNTER → 2023-08-30 13:34 | Outpatient (BNVA) | payer OTHER, SELFPAY | PROVIDERS: PCP Internal Medicine; Visit Provider Urology | DX: N30.10 Interstitial cystitis (chronic) without hematuria (principal) | CPT/HCPCS: 51798 ==

== ENCOUNTER 2023-10-04 15:25 | Outpatient (AMB) | payer OTHER, SELFPAY ==
--- NOTE | 2023-10-04 15:27 | MHC.OFFVIS ---
Intake Visit Reasons: Hydrodistention follow up Intake Note: Patient presents today for a follow-up on Hydrodistention: Urology Med: Pyridium Antibiotic Allergy: Amoxicillin Blood Thinner: None PVR, 26 mL Entry Level Recruiter Required: No Accompanied by: Significant Other Allergies amoxicillin [From AUGMENTIN] Allergy (Severe, Verified 10/04/23 15:29) SEVERE DIARRHEA clavulanic acid [From AUGMENTIN] Allergy (Severe, Verified 10/04/23 15:29) SEVERE DIARRHEA Ftuglza-DRV-OaS Reductase Inhibitor [TCSTFVZ-YLJ-MNY REDUCTASE INHIBITOR] Allergy (Intermediate, Verified 10/04/23 15:29) muscle aches, cramps acetaminophen [ACETAMINOPHEN] Adverse Reaction (Severe, Verified 10/04/23 15:29) GI upset. Pt confirmed NOT allergic to oxycodone HPI Comments Details: 10/04/23--Randi is a 58 year old female who has been followed by Dr. Cornelius for chronic IC. The patient has symptoms of bladder pain and has been managed with q 3 month cystoscopy hydrodistension. last cysto/hydro was 08/03/23. I have discussed that q 3 mon cysto/hydro is very frequent and it would be beneficial to find alternative treatments to manage her IC symptoms. Will trial oxybutynin 5 mg q day, and uribel tid prn. UA - leuks neg, blood neg Will plan on repeat cysto/hydrodistension if symptoms do not improve. [facility] Medical History Recent bereavement On beta morgan at home Anxiety SVT (supraventricular tachycardia) Depression Lab test negative for COVID-19 virus Back pain History of gastrostomy tube placement Hx of ulcerative colitis Hx of cystitis History of anxiety Asthma Elevated cholesterol Surgical History History of tubal ligation History of endometrial ablation History of bladder surgery Social History Are you a primary care partner to a significant other at home: No Do you presently have visiting nurse or other home services: No Comment: medicated in pacu Patient Tobacco Use Status: Current everyday Tobacco user Tobacco use type: Cigarette Cigarettes Per Day: 4 Years Smoked: 22 Current occupational status: disabled Review of Systems Const All systems reviewed & are unremarkable except as noted in HPI and below Reports no additional complaints Eyes Reports no additional complaints ENT Reports no additional complaints Card Reports no additional complaints Resp Reports no additional complaints GI Reports no additional complaints Reports as per HPI Musc Reports no additional complaints Skin/Breast Reports system reviewed and no additional complaints, except as documented Neuro Reports no additional complaints Psych Reports no additional complaints Endo Reports no additional complaints Wilver/Lymph Reports no additional complaints Aller/Immun Reports no additional complaints Results AMB Urinalysis, Automated UA Leukoctes 0 Ketan/uL Last Edit by [place] Sosa Staci on 10/04/23 15:46 UA Nitrite Negative Last Edit by [place] [facility] on 10/04/23 15:46 UA Urobilinogen 0.2 mg/dL Last Edit by [place] [facility] on 10/04/23 15:46 UA Protein 0 mg/dL Last Edit by [place] [facility] on 10/04/23 15:46 UA pH 6.0 Last Edit by [place] [facility] on 10/04/23 15:46 UA Blood 0 Randy/uL Last Edit by [place] [facility] on 10/04/23 15:46 UA Specific [place] 1.020 Last Edit by [place] [facility] on 10/04/23 15:46 UA Ketone Negative Last Edit by [place] [facility] on 10/04/23 15:46 UA Bilirubin 0 mg/dL Last Edit by [place] S[place] [facility] on 10/04/23 15:46 UA Glucose 0 mg/dL Last Edit by [place] S[place] [facility] on 10/04/23 15:46 Results Reviewed Results Reviewed: Laboratory Last Values Urine pH (Auto) 6.0 10/04/23 15:45 Specific [place] (Auto) 1.020 10/04/23 15:45 Urine Protein (Auto) 0 mg/dL 10/04/23 15:45 Glucose (UA)(Auto) 0 mg/dL 10/04/23 15:45 Urine Ketones (Auto) Negative 10/04/23 15:45 Urine Blood (Auto) 0 Randy/uL 10/04/23 15:45 Urine Nitrite (Auto) Negative 10/04/23 15:45 Urine Bilirubin (Auto) 0 mg/dL 10/04/23 15:45 Urine Urobilinogen (Auto) 0.2 mg/dL 10/04/23 15:45 Leukocyte Esterase (Auto) 0 Ketan/uL 10/04/23 15:45 Assessment & Plan Assessment & Plan (1) Interstitial cystitis: Code(s): N30.10 - Interstitial cystitis (chronic) without hematuria Category: Medical (2) Bladder spasm: Code(s): N32.89 - Other specified disorders of bladder Category: Medical (3) Bladder pain: Code(s): R39.89 - Other symptoms and signs involving the genitourinary system Category: Medical Plan oxybutynin 5 mg daily, uribel tid prn Schedule cystoscopy hydrodistention Orders: Orders AMB Urinalysis Automated 10/04/23 Z13.9 - Encounter for screening, unspecified AMB Post Void Residual by ultrasound 10/04/23 N39.8 - Other specified disorders of urinary system Medications: New oxybutynin chloride ER 5 mg PO DAILY 30 tabs 1RF barrysHaimpooa-courl-uzz 118-10-40.8-36 mg (Uribel) administer with plenty of fluids 1 tab PO BID 60 caps 0RF Patient Instructions: The patient had an opportunity to ask questions regarding treatment plan. The patient expressed understanding and agreement with the above treatment plan. The patient is aware they should contact our office by phone for worsening of their current condition or the appearance of new symptoms. Compliance is encouraged with any medications and followup testing that is ordered. It is a privilege to be allowed the opportunity to participate in the urologic care of your patient. If you have any questions or concerns regarding treatment for the above conditions please do not hesitate to contact me. The office telephone contact is [phone]. This note is constructed in part using voice recognition software. While every effort has been made to ensure accuracy lead net software developer errors may have been included. Yours sincerely, Tj Villa MD Coding Level of Care Code Est Pt Level 4 (16413) Diagnoses Interstitial cystitis N30.10 Bladder spasm N32.89 Bladder pain R39.89
== END 2023-10-04 16:15 | disposition home or self-care (01) ==
LOC: HO.HUSH 15:25
PROVIDERS: PCP Internal Medicine; Visit Provider Urology
DX: N30.10 Interstitial cystitis (chronic) without hematuria (principal); N32.89 Other specified disorders of bladder; R39.89 Other symptoms and signs involving the genitourinary system
CPT/HCPCS: 99214

== ENCOUNTER → 2023-10-04 15:25 | Outpatient (BNVA) | payer OTHER, SELFPAY | PROVIDERS: PCP Internal Medicine; Visit Provider Urology | DX: N30.10 Interstitial cystitis (chronic) without hematuria (principal); R39.89 Other symptoms and signs involving the genitourinary system; N32.89 Other specified disorders of bladder | CPT/HCPCS: 81003; 99212 ==

== ENCOUNTER 2023-10-19 10:36 | Day surgery (SDC) | payer OTHER, SELFPAY ==
--- NOTE | 2023-10-15 13:55 | HO.ANESPROP2 ---
Documented by User: Maureen Boyd NP 10/15/23 13:56 HPI - Anesthesia Eval Consult details Narrative: 58yo F for Cystoscopy Hydrodistention of Bladder s/p same 07/2023 with [facility]-L[facility] 3 PMFSH Active Problems Active Problems: All Active Problems Bladder pain (Acute) Interstitial cystitis (Acute) Bladder spasm (Acute) Fracture of fifth metatarsal bone of left foot (Acute) Past Medical History Medical History Recent bereavement On beta morgan at home Anxiety SVT (supraventricular tachycardia) Depression Lab test negative for COVID-19 virus Back pain History of gastrostomy tube placement Hx of ulcerative colitis Hx of cystitis History of anxiety Asthma Elevated cholesterol Family History Family history of problems with anesthesia: No Surgical History Surgical History History of tubal ligation History of endometrial ablation History of bladder surgery History of Problems with Anesthesia: No Social History Social History Household Members: Significant Other Housing: Apartment Are you a primary critical care nurse practitioner to a significant other at home: No Do you presently have visiting nurse or other home services: Yes ([employer] 1 x week) Comment: medicated in pacu Patient Tobacco Use Status: Current everyday Tobacco user Tobacco use type: Cigarette Cigarettes Per Day: 5 Years Smoked: 22 Smoked in Last 30 Days: Yes Use of substances other than those prescribed or required for medical reasons: No Have you been hit, kicked, punched, or otherwise hurt by someone within the past year? If so, by whom?: No Are you DNR?: No Advance Directives: No (will bring dos) Advance Directives Information Provided: Yes Advance Directives on File: No Poor oral hygiene: No Current occupational status: disabled Meds Allergies Allergy/AdvReac Type Severity Reaction Status Date / Time amoxicillin [From AUGMENTIN] Allergy Severe SEVERE Verified 10/19/23 11:48 DIARRHEA clavulanic acid Allergy Severe SEVERE Verified 10/19/23 11:48 [From AUGMENTIN] DIARRHEA Gvhesgc-PSN-GjH Reductase Allergy Intermediate muscle Verified 10/19/23 11:48 Inhibitor aches, [FTQQCUG-PGE-OOO REDUCTASE cramps INHIBITOR] acetaminophen [ACETAMINOPHEN] AdvReac Severe GI upset. Verified 10/19/23 11:48 Pt confirmed NOT allergic to oxycodone NSAIDS (Non-Steroidal AdvReac Severe Gastrointestinal Verified 10/19/23 11:48 Anti-Inflamma Upset Home Medications ?Medication ?Instructions ?Recorded ?Confirmed ?Last Taken ?Type albuterol sulfate 90 mcg/actuation 2 puff inhalation Q4-6H PRN 04/25/20 10/15/23 04/13/22 History aerosol inhaler (ProAir HFA) Shortness Of Breath sertraline 100 mg tablet 150 mg PO QAM 04/25/20 10/15/23 09/07/22 06:30 History adalimumab 40 mg/0.4 mL 40 mg subcut .Q 14 DAYS 06/21/20 10/15/23 Unknown History subcutaneous pen kit clonazepam 1 mg tablet 1 mg PO BEDTIME 08/08/21 10/15/23 Unknown History dicyclomine 20 mg tablet 20 mg PO QID 08/08/21 10/19/23 10/19/23 History metoprolol succinate 25 mg 12.5 mg PO DAILY 08/08/21 10/19/23 10/19/23 History tablet,extended release 24 hr omeprazole 20 mg capsule,delayed 20 mg PO DAILY 11/03/21 10/19/23 10/19/23 History release ondansetron 4 mg disintegrating 4 mg PO BID PRN nausea/vomiting 11/17/22 10/15/23 Unknown History tablet oxycodone 5 mg tablet 5 mg PO Q8H PRN Pain 10/15/23 10/15/23 Unknown History trazodone 50 mg tablet 50 mg PO BEDTIME 10/15/23 10/15/23 Unknown History Assessment and Plan Assessment Anesthesia Assessment: Chart Reviewed Final Anesthetic Review Family History of Problems with Anesthesia: No History of Problems with Anesthesia: No Documented by User: Lili Del Angel MD 10/19/23 13:16 PMFSH Past Medical History Medical History Recent bereavement On beta morgan at home Anxiety SVT (supraventricular tachycardia) Depression Lab test negative for COVID-19 virus Back pain History of gastrostomy tube placement Hx of ulcerative colitis Hx of cystitis History of anxiety Asthma Elevated cholesterol Surgical History Surgical History History of tubal ligation History of endometrial ablation History of bladder surgery Social History Social History Household Members: Significant Other Housing: Apartment Are you a primary critical care nurse practitioner to a significant other at home: No Do you presently have visiting nurse or other home services: Yes ([employer] 1 x week) Comment: medicated in pacu Patient Tobacco Use Status: Current everyday Tobacco user Tobacco use type: Cigarette Cigarettes Per Day: 5 Years Smoked: 22 Smoked in Last 30 Days: Yes Use of substances other than those prescribed or required for medical reasons: No Have you been hit, kicked, punched, or otherwise hurt by someone within the past year? If so, by whom?: No Are you DNR?: No Advance Directives: No (will bring dos) Advance Directives Information Provided: Yes Advance Directives on File: No Poor oral hygiene: No Current occupational status: disabled Meds Allergies Allergy/AdvReac Type Severity Reaction Status Date / Time amoxicillin [From AUGMENTIN] Allergy Severe SEVERE Verified 10/19/23 11:48 DIARRHEA clavulanic acid Allergy Severe SEVERE Verified 10/19/23 11:48 [From AUGMENTIN] DIARRHEA Xxkqyjz-ENT-VjM Reductase Allergy Intermediate muscle Verified 10/19/23 11:48 Inhibitor aches, [XCZXDRV-PNZ-IQW REDUCTASE cramps INHIBITOR] acetaminophen [ACETAMINOPHEN] AdvReac Severe GI upset. Verified 10/19/23 11:48 Pt confirmed NOT allergic to oxycodone NSAIDS (Non-Steroidal AdvReac Severe Gastrointestinal Verified 10/19/23 11:48 Anti-Inflamma Upset Home Medications ?Medication ?Instructions ?Recorded ?Confirmed ?Last Taken ?Type albuterol sulfate 90 mcg/actuation 2 puff inhalation Q4-6H PRN 04/25/20 10/15/23 04/13/22 History aerosol inhaler (ProAir HFA) Shortness Of Breath sertraline 100 mg tablet 150 mg PO QAM 04/25/20 10/15/23 09/07/22 06:30 History adalimumab 40 mg/0.4 mL 40 mg subcut .Q 14 DAYS 06/21/20 10/15/23 Unknown History subcutaneous pen kit clonazepam 1 mg tablet 1 mg PO BEDTIME 08/08/21 10/15/23 Unknown History dicyclomine 20 mg tablet 20 mg PO QID 08/08/21 10/19/23 10/19/23 History metoprolol succinate 25 mg 12.5 mg PO DAILY 08/08/21 10/19/23 10/19/23 History tablet,extended release 24 hr omeprazole 20 mg capsule,delayed 20 mg PO DAILY 11/03/21 10/19/23 10/19/23 History release ondansetron 4 mg disintegrating 4 mg PO BID PRN nausea/vomiting 11/17/22 10/15/23 Unknown History tablet oxycodone 5 mg tablet 5 mg PO Q8H PRN Pain 10/15/23 10/15/23 Unknown History trazodone 50 mg tablet 50 mg PO BEDTIME 10/15/23 10/15/23 Unknown History Exam Airway Mallampati Class: II TM Dist: >3cm Neck ROM: Full Loose/Missing/Broken Teeth: No Heart: RRR Lungs: CTA Assessment and Plan Assessment Anesthesia Assessment: Anesthesia Plan Discussed Final Anesthetic Review NPO: Yes ASA Class: II Final Preanesthetic Review: Meds/Allgs Chart Reviewed, Consent Obtained/Reviewed and Anes Risks/Benef Reviewed Patient Risk: Low Procedure Risk: Low Anesthetic Plan Anesthetic Plan: GA Disposition: Standard PACU
[2023-10-15 15:00] VITALS: BMI 19.7
[2023-10-15 15:49] VITALS: BMI 19.3
[2023-10-19 12:05] VITALS: BP 111/48; PULSE 60; RESP 16; TEMP 36.1; O2SAT 99
[2023-10-19] MEDS: Lactated Ringers 1,000 ML 100 ML IVCONT (12:05)
--- NOTE | 2023-10-19 13:09 | HO.POSTANES ---
Post Anesthesia Evaluation Post Anesthesia Evaluation Vital Signs: Vital Signs Temp Pulse Resp BP Pulse Ox O2 Del Method 10/19/23 12:05 96.9 F 60 16 111/48 L 99 Room Air Anesthesia: General
--- NOTE | 2023-10-19 13:11 | MHC.SHP ---
Pre-Procedural Eval Section A - 24 Hr Update-Section A only Date of Service: 10/19/23 The patient is an INPATIENT: No The patient has been examined within 24 hours of the surgical procedure. The History & Physical has been completed within 30 days and I have reviewed it.: Yes Section B - Complete if H&P > 30 days Chief Complaint: Interstitial cystitis (chronic) without hematuria Allergies: Allergies Allergy/AdvReac Type Severity Reaction Status Date / Time amoxicillin [From AUGMENTIN] Allergy Severe SEVERE Verified 10/19/23 11:48 DIARRHEA clavulanic acid Allergy Severe SEVERE Verified 10/19/23 11:48 [From AUGMENTIN] DIARRHEA Yvhvaxg-TGE-QiU Reductase Allergy Intermediate muscle Verified 10/19/23 11:48 Inhibitor aches, [AXNZTOY-DGY-UPC REDUCTASE cramps INHIBITOR] acetaminophen [ACETAMINOPHEN] AdvReac Severe GI upset. Verified 10/19/23 11:48 Pt confirmed NOT allergic to oxycodone NSAIDS (Non-Steroidal AdvReac Severe Gastrointestinal Verified 10/19/23 11:48 Anti-Inflamma Upset Plan Diagnosis/Plan: Unchanged I have reviewed the history and physical and performed a pertinent physical examination on my patient. No changes have occurred unless specified. Cystoscopy hydrodistention. Discussed risks to include but not limited to, blood in the urine, burning with urination, urgency. Time Spent With Patient Time: Total time managing care of this patient today ____ minutes.
--- NOTE | 2023-10-19 13:35 | P.CONAN_ITS ---
[facility] Active Problems Active Problems: All Active Problems Bladder pain (Acute) Fracture of fifth metatarsal bone of left foot (Acute) Bladder spasm (Acute) Interstitial cystitis (Acute) Past Medical History Medical History Recent bereavement On beta morgan at home Anxiety SVT (supraventricular tachycardia) Depression Lab test negative for COVID-19 virus Back pain History of gastrostomy tube placement Hx of ulcerative colitis Hx of cystitis History of anxiety Asthma Elevated cholesterol Family History Family history of problems with anesthesia: No Surgical History Surgical History History of tubal ligation History of endometrial ablation History of bladder surgery History of Problems with Anesthesia: No Social History Social History Household Members: Significant Other Housing: Apartment Are you a primary rn patient care to a significant other at home: No Do you presently have visiting nurse or other home services: Yes ([facility] 1 x week) Comment: medicated in pacu Patient Tobacco Use Status: Current everyday Tobacco user Tobacco use type: Cigarette Cigarettes Per Day: 5 Years Smoked: 22 Smoked in Last 30 Days: Yes Use of substances other than those prescribed or required for medical reasons: No Have you been hit, kicked, punched, or otherwise hurt by someone within the past year? If so, by whom?: No Are you DNR?: No Advance Directives: No (will bring dos) Advance Directives Information Provided: Yes Advance Directives on File: No Poor oral hygiene: No Current occupational status: disabled Meds Allergies Allergy/AdvReac Type Severity Reaction Status Date / Time amoxicillin [From AUGMENTIN] Allergy Severe SEVERE Verified 10/19/23 11:48 DIARRHEA clavulanic acid Allergy Severe SEVERE Verified 10/19/23 11:48 [From AUGMENTIN] DIARRHEA Uipmlse-XHE-GlK Reductase Allergy Intermediate muscle Verified 10/19/23 11:48 Inhibitor aches, [ZWCNWDR-JBO-PBH REDUCTASE cramps INHIBITOR] acetaminophen [ACETAMINOPHEN] AdvReac Severe GI upset. Verified 10/19/23 11:48 Pt confirmed NOT allergic to oxycodone NSAIDS (Non-Steroidal AdvReac Severe Gastrointestinal Verified 10/19/23 11:48 Anti-Inflamma Upset Active Medications: Current Medications Albuterol Sulfate (Albuterol Sulfate (0.083%) 2.5 Mg/3 Ml Vial.Neb) 2.5 mg INHALE ONCE PRN PRN Reason: Shortness of Breath/Wheezing Albuterol Sulfate (Albuterol Sulfate (0.083%) 2.5 Mg/3 Ml Vial.Neb) 2.5 mg INHALE ONCE PRN PRN Reason: Wheezing Stop: 10/19/23 19:16 Fentanyl (Fentanyl Citrate/Pf 100 Mcg/2 Ml Vial) 25 mcg IVPUSH Q5M PRN; Protocol PRN Reason: Pain, Moderate(Pain Scale 4-6) Stop: 10/19/23 19:16 Lactated Ringer's (Lr) 1,000 mls @ 100 mls/hr IVCONT .Q10H MELY Last Admin: 10/19/23 12:05 Dose: 100 mls/hr Levofloxacin (Levaquin) 500 mg in 100 mls @ 100 mls/hr IV PREOP ONE Stop: 10/19/23 14:09 Ondansetron HCl (Ondansetron Hcl 4 Mg/2 Ml Vial) 4 mg IVPUSH ONCE PRN PRN Reason: Nausea and Vomiting Stop: 10/19/23 19:16 Oxycodone HCl (Oxycodone Hcl Immed Release 5 Mg Tablet) 5 mg PO ONCE PRN PRN Reason: Pain, Severe (Pain Scale 7-10) Stop: 10/19/23 19:16 Home Medications ?Medication ?Instructions ?Recorded ?Confirmed ?Last Taken ?Type albuterol sulfate 90 mcg/actuation 2 puff inhalation Q4-6H PRN 04/25/20 10/15/23 04/13/22 History aerosol inhaler (ProAir HFA) Shortness Of Breath sertraline 100 mg tablet 150 mg PO QAM 04/25/20 10/15/23 09/07/22 06:30 History adalimumab 40 mg/0.4 mL 40 mg subcut .Q 14 DAYS 06/21/20 10/15/23 Unknown History subcutaneous pen kit clonazepam 1 mg tablet 1 mg PO BEDTIME 08/08/21 10/15/23 Unknown History dicyclomine 20 mg tablet 20 mg PO QID 08/08/21 10/19/23 10/19/23 History metoprolol succinate 25 mg 12.5 mg PO DAILY 08/08/21 10/19/23 10/19/23 History tablet,extended release 24 hr omeprazole 20 mg capsule,delayed 20 mg PO DAILY 11/03/21 10/19/23 10/19/23 History release ondansetron 4 mg disintegrating 4 mg PO BID PRN nausea/vomiting 11/17/22 10/15/23 Unknown History tablet oxycodone 5 mg tablet 5 mg PO Q8H PRN Pain 10/15/23 10/15/23 Unknown History trazodone 50 mg tablet 50 mg PO BEDTIME 10/15/23 10/15/23 Unknown History Exam Height,Weight and Vital Signs: Height 5 ft 5 in Weight 52.617 kg Last Vital Signs Temp 96.9 F 10/19/23 12:05 Pulse 60 10/19/23 12:05 Resp 16 10/19/23 12:05 BP 111/48 L 10/19/23 12:05 Pulse Ox 99 10/19/23 12:05 O2 Del Method Room Air 10/19/23 12:05 Airway Mallampati Class: II TM Dist: >3cm Neck ROM: Full Loose/Missing/Broken Teeth: No Heart: RRR Lungs: CTA Assessment and Plan Assessment Anesthesia Assessment: Anesthesia Plan Discussed and Chart Reviewed Final Anesthetic Review Family History of Problems with Anesthesia: No History of Problems with Anesthesia: No NPO: Yes ASA Class: II Final Preanesthetic Review: Meds/Allgs Chart Reviewed, Consent Obtained/Reviewed and Anes Risks/Benef Reviewed Patient Risk: Low Procedure Risk: Low Anesthetic Plan Anesthetic Plan: GA Disposition: Standard PACU
[2023-10-19 13:57] VITALS: BP 156/81; PULSE 56; RESP 20; TEMP 36.2; O2SAT 100
[2023-10-19 14:02] VITALS: BP 128/84; PULSE 65; RESP 16; O2SAT 100
[2023-10-19 14:07] VITALS: BP 139/63; PULSE 56; RESP 16; O2SAT 100
[2023-10-19 14:12] VITALS: BP 140/66; PULSE 56; RESP 16; O2SAT 100
--- NOTE | 2023-10-19 14:18 | W.PM.OPN ---
Operative Note Operative Note Date of Service: 10/19/23 Narrative: PREOP DIAGNOSIS: Interstitial cystitis, pelvic pain, microscopic hematuria POSTOP DIAGNOSIS: Interstitial cystitis, pelvic pain, microscopic hematuria, PROCEDURE: CYSTOSCOPY HYDRODISTENTION, URETHRAL DILATION, BLADDER INSTILLATION Anethesia: General Surgeon: Dr. Tj Villa Indications: Chronic interstitial cystitis Details of procedure: The patient was brought into the operating room placed on the OR table in supine position. 2 g of Ancef IV. General anesthesia was administered. The patient was repositioned into lithotomy position, prepped and draped in the usual sterile fashion. Time-out was done per protocol. On attempts to place the 22 fr cystoscope transurethrally there was resistance at the uretheral meatus. The female sounds were used to dilate the urethral meatus starting with the 16 fr and sequentially dilated up to a 24 fr. The 22 fr cystoscope was than passed transurethrally into the bladder. The right and left ureteral orifices were visualized. The entire bladder was visualized. There were no suspicious bladder lesions seen. There were mild to moderate trabeculations noted. The bladder was filled with sterile water at 80 cm of water pressure under gravity. The bladder was distended for 2 minutes. Bladder capacity measured 525 mL. Revisualization of the bladder, noted mild glomerulations. No Herberth ulcerations. The bladder was refilled with sterile water again at 80 cm of water pressure under gravity. The bladder was distended for 3 minutes. The fluid was drained from the bladder and measured 575 mL. The cystoscope was removed. 2% lidocaine urojet was passed transurethrally, Solution of (1% lidocaine plain, 15 mL, 0.5 % Marcaine 15 mL mixed with 30, 000 units of heparin concentration 5000 units per mL total of 6 mL hepaine) instilled transurethrally into the bladder. The patient was brought out of anesthesia and taken to recovery in stable condition. Complications: None
[2023-10-19] MEDS: hydrOXYzine HCL 25 MG TABLET PO (14:22)
[2023-10-19] MEDS: Phenazopyridine HCL 200 MG TABLET PO (14:23)
[2023-10-19 14:28] VITALS: BP 132/67; PULSE 51; RESP 16; TEMP 36.1; O2SAT 96
== END 2023-10-19 15:06 | disposition home or self-care (01) ==
PROVIDERS: PCP Internal Medicine; Visit Provider Urology
PROC: 0T7B7ZZ Dilation of Bladder, Via Natural or Artificial Opening (ICD-10-PCS; CPT 52260; principal; 2023-10-19 12:40)
DX: N30.10 Interstitial cystitis (chronic) without hematuria (principal); R10.2 Pelvic and perineal pain; R31.29 Other microscopic hematuria; N32.89 Other specified disorders of bladder; J45.909 Unspecified asthma, uncomplicated; E78.00 Pure hypercholesterolemia, unspecified; I47.10 Supraventricular tachycardia, unspecified; F41.9 Anxiety disorder, unspecified; Z79.899 Other long term (current) drug therapy; Z88.1 Allergy status to other antibiotic agents; Z88.8 Allergy status to other drugs, medicaments and biological substances; Z79.890 Hormone replacement therapy; F17.210 Nicotine dependence, cigarettes, uncomplicated
CPT/HCPCS: 52260; J1100; J1644; J1956; J2250; J2405; J2704; J2795; J3010

== ENCOUNTER → 2023-10-19 10:36 | Outpatient (BNV) | payer OTHER, SELFPAY | PROVIDERS: PCP Internal Medicine; Visit Provider Urology | DX: N30.10 Interstitial cystitis (chronic) without hematuria (principal) | CPT/HCPCS: 52260 ==

== ENCOUNTER 2023-11-17 15:51 | Outpatient (AMB) | payer OTHER, SELFPAY ==
--- NOTE | 2023-11-17 15:42 | MHC.OFFVIS ---
Intake Visit Reasons: Hydrodistention- follow up Allergies amoxicillin [From AUGMENTIN] Allergy (Severe, Verified 10/19/23 11:48) SEVERE DIARRHEA clavulanic acid [From AUGMENTIN] Allergy (Severe, Verified 10/19/23 11:48) SEVERE DIARRHEA Lvsxlac-PRR-OhO Reductase Inhibitor [FHEULEM-GBV-TOB REDUCTASE INHIBITOR] Allergy (Intermediate, Verified 10/19/23 11:48) muscle aches, cramps acetaminophen [ACETAMINOPHEN] Adverse Reaction (Severe, Verified 10/19/23 11:48) GI upset. Pt confirmed NOT allergic to oxycodone NSAIDS (Non-Steroidal Anti-Inflamma Adverse Reaction (Severe, Verified 10/19/23 11:48) Gastrointestinal Upset HPI Comments Details: 11/17/23--Randi is status post repeat cysto/hydro on 10/19/23. She states since procedure she has had an appointment with a [facility] surgeon due to a colon polyp and is scheduled for a colon resection and possible colostomy next week. Discussed fu in 3 months, she will call if she has flare in symptoms. 10/04/23--Randi is a 58 year old female who has been followed by Dr. Cornelius for chronic IC. The patient has symptoms of bladder pain and has been managed with q 3 month cystoscopy hydrodistension. last cysto/hydro was 08/03/23. I have discussed that q 3 mon cysto/hydro is very frequent and it would be beneficial to find alternative treatments to manage her IC symptoms. Will trial oxybutynin 5 mg q day, and uribel tid prn. UA - leuks neg, blood neg. Will plan on repeat cysto/hydrodistension if symptoms do not improve. [facility] Medical History Recent bereavement On beta morgan at home Anxiety SVT (supraventricular tachycardia) Depression Lab test negative for COVID-19 virus Back pain History of gastrostomy tube placement Hx of ulcerative colitis Hx of cystitis History of anxiety Asthma Elevated cholesterol Surgical History History of tubal ligation History of endometrial ablation History of bladder surgery Social History Household Members: Significant Other Housing: Apartment Are you a primary career technical counselor to a significant other at home: No Do you presently have visiting nurse or other home services: Yes ([employer] 1 x week) 75 years or older and lives alone: No Comment: medicated in pacu Patient Tobacco Use Status: Current everyday Tobacco user Tobacco use type: Cigarette Cigarettes Per Day: 5 Years Smoked: 22 Smoked in Last 30 Days: Yes Use of substances other than those prescribed or required for medical reasons: No Current occupational status: disabled Review of Systems Const All systems reviewed & are unremarkable except as noted in HPI and below Reports no additional complaints Eyes Reports no additional complaints ENT Reports no additional complaints Card Reports no additional complaints Resp Reports no additional complaints GI Reports no additional complaints Reports as per HPI Musc Reports no additional complaints Skin/Breast Reports system reviewed and no additional complaints, except as documented Neuro Reports no additional complaints Psych Reports no additional complaints Endo Reports no additional complaints Wilver/Lymph Reports no additional complaints Aller/Immun Reports no additional complaints Telehealth Telehealth Telehealth Platform: [facility] Location of provider rendering services: practice address Location of patient: address on file Patient Identification confirmed using: Name, : Yes Telehealth method: voice only Patient verbally consented to treatment: Yes Patient verbally consented to billing insurance company: Yes Patient informed of any privacy concerns related to visit: Yes Minutes spent on Phone/Video with Pt.: 15 Assessment & Plan Assessment & Plan (1) Interstitial cystitis: Code(s): N30.10 - Interstitial cystitis (chronic) without hematuria Category: Medical (2) Bladder spasm: Code(s): N32.89 - Other specified disorders of bladder Category: Medical (3) Bladder pain: Code(s): R39.89 - Other symptoms and signs involving the genitourinary system Category: Medical Plan oxybutynin 5 mg daily, uribel tid prn fu in 3 months Patient Instructions: The patient had an opportunity to ask questions regarding treatment plan. The patient expressed understanding and agreement with the above treatment plan. The patient is aware they should contact our office by phone for worsening of their current condition or the appearance of new symptoms. Compliance is encouraged with any medications and followup testing that is ordered. It is a privilege to be allowed the opportunity to participate in the urologic care of your patient. If you have any questions or concerns regarding treatment for the above conditions please do not hesitate to contact me. The office telephone contact is [phone]. This note is constructed in part using voice recognition software. While every effort has been made to ensure accuracy oil dispatcher errors may have been included. Yours sincerely, Tj Villa MD Coding Level of Care Code Tele Est Pt Level 3 (21622) Diagnoses Interstitial cystitis N30.10 Bladder spasm N32.89 Bladder pain R39.89
== END 2023-11-17 16:30 | disposition home or self-care (01) ==
LOC: HO.HUSH 15:52
PROVIDERS: PCP Internal Medicine; Visit Provider Urology
DX: N30.10 Interstitial cystitis (chronic) without hematuria (principal); N32.89 Other specified disorders of bladder; R39.89 Other symptoms and signs involving the genitourinary system
CPT/HCPCS: 99213

== ENCOUNTER → 2023-11-17 15:51 | Outpatient (BNVA) | payer OTHER, SELFPAY | PROVIDERS: PCP Internal Medicine; Visit Provider Urology ==

== ENCOUNTER 2023-12-14 11:18 | Day surgery (SDC) | payer OTHER, SELFPAY ==
[2023-12-14] VITALS (7 sets, daily range): BP systolic 106–136; BP diastolic 63–83; PULSE 71–90; RESP 16–20; TEMP 36.1–36.8; O2SAT 96–100; BMI 18.3
[2023-12-14] MEDS: Lactated Ringers 1,000 ML 50 ML IVCONT (12:23)
--- NOTE | 2023-12-14 13:10 | HO.ANESPROP2 ---
[facility] Active Problems Active Problems: All Active Problems Bladder pain (Acute) Fracture of fifth metatarsal bone of left foot (Acute) Bladder spasm (Acute) Interstitial cystitis (Acute) Past Medical History Medical History Colostomy in place Recent bereavement On beta morgan at home Anxiety SVT (supraventricular tachycardia) Depression Lab test negative for COVID-19 virus Back pain History of gastrostomy tube placement Hx of ulcerative colitis Hx of cystitis History of anxiety Asthma Elevated cholesterol Family History Family history of problems with anesthesia: No Surgical History Surgical History History of tubal ligation History of endometrial ablation History of bladder surgery History of Problems with Anesthesia: No Social History Social History Household Members: Significant Other Housing: Apartment Are you a primary direct care provider to a significant other at home: No Do you presently have visiting nurse or other home services: Yes ([facility] 1 x week) Comment: medicated in pacu Patient Tobacco Use Status: Current everyday Tobacco user Tobacco use type: Cigarette Cigarettes Per Day: 4 Years Smoked: 22 Date Education Initiated: 12/14/23 Use of substances other than those prescribed or required for medical reasons: No Are you DNR?: No Advance Directives: No Advance Directives Information Provided: Yes Current occupational status: disabled Meds Allergies Allergy/AdvReac Type Severity Reaction Status Date / Time amoxicillin [From AUGMENTIN] Allergy Severe SEVERE Verified 10/19/23 11:48 DIARRHEA clavulanic acid Allergy Severe SEVERE Verified 10/19/23 11:48 [From AUGMENTIN] DIARRHEA Ofeiitd-VNU-AdI Reductase Allergy Intermediate muscle Verified 10/19/23 11:48 Inhibitor aches, [[id number] REDUCTASE cramps INHIBITOR] acetaminophen [ACETAMINOPHEN] AdvReac Severe GI upset. Verified 10/19/23 11:48 Pt confirmed NOT allergic to oxycodone NSAIDS (Non-Steroidal AdvReac Severe Gastrointestinal Verified 10/19/23 11:48 Anti-Inflamma Upset Active Medications: Current Medications Lactated Ringer's (Lr) 1,000 mls @ 50 mls/hr IVCONT .Q20H MELY Last Admin: 12/14/23 12:23 Dose: 50 mls/hr Home Medications ?Medication ?Instructions ?Recorded ?Confirmed ?Last Taken ?Type albuterol sulfate 90 mcg/actuation 2 puff inhalation Q4-6H PRN 04/25/20 12/14/23 04/13/22 History aerosol inhaler (ProAir HFA) Shortness Of Breath adalimumab 40 mg/0.4 mL 40 mg subcut .Q 14 DAYS 06/21/20 12/14/23 Unknown History subcutaneous pen kit clonazepam 1 mg tablet 1 mg PO BEDTIME 08/08/21 12/14/23 Unknown History metoprolol succinate 25 mg 12.5 mg PO DAILY 08/08/21 12/14/23 12/14/23 History tablet,extended release 24 hr omeprazole 20 mg capsule,delayed 20 mg PO DAILY 11/03/21 12/14/23 12/14/23 History release ondansetron 4 mg disintegrating 4 mg PO BID PRN nausea/vomiting 11/17/22 12/14/23 Unknown History tablet trazodone 50 mg tablet 50 mg PO BEDTIME 10/15/23 12/14/23 Unknown History Exam Height,Weight and Vital Signs: Height 5 ft 5 in Weight 49.895 kg Last Vital Signs Temp 98.2 F 12/14/23 11:54 Pulse 90 12/14/23 11:54 Resp 18 12/14/23 11:54 BP 106/63 12/14/23 11:54 Pulse Ox 96 12/14/23 11:54 O2 Del Method Room Air 12/14/23 11:54 Airway Mallampati Class: III Neck ROM: Full Loose/Missing/Broken Teeth: No Heart: RRR Lungs: CTA Assessment and Plan Assessment Anesthesia Assessment: Anesthesia Plan Discussed and Chart Reviewed Final Anesthetic Review Family History of Problems with Anesthesia: No History of Problems with Anesthesia: No NPO: Yes ASA Class: III Final Preanesthetic Review: Meds/Allgs Chart Reviewed, Consent Obtained/Reviewed and Anes Risks/Benef Reviewed Patient Risk: Intermediate Procedure Risk: Low Anesthetic Plan Anesthetic Plan: GA Disposition: Standard PACU
--- NOTE | 2023-12-14 13:48 | MHC.SHP ---
Pre-Procedural Eval Section A - 24 Hr Update-Section A only Date of Service: 12/14/23 The patient is an INPATIENT: No The patient has been examined within 24 hours of the surgical procedure. The History & Physical has been completed within 30 days and I have reviewed it.: Yes Section B - Complete if H&P > 30 days Chief Complaint: Interstitial cystitis (chronic) without hematuria Allergies: Allergies Allergy/AdvReac Type Severity Reaction Status Date / Time amoxicillin [From AUGMENTIN] Allergy Severe SEVERE Verified 10/19/23 11:48 DIARRHEA clavulanic acid Allergy Severe SEVERE Verified 10/19/23 11:48 [From AUGMENTIN] DIARRHEA Qlesxfl-ZAA-GdB Reductase Allergy Intermediate muscle Verified 10/19/23 11:48 Inhibitor aches, [[id number] REDUCTASE cramps INHIBITOR] acetaminophen [ACETAMINOPHEN] AdvReac Severe GI upset. Verified 10/19/23 11:48 Pt confirmed NOT allergic to oxycodone NSAIDS (Non-Steroidal AdvReac Severe Gastrointestinal Verified 10/19/23 11:48 Anti-Inflamma Upset Plan Diagnosis/Plan: Unchanged I have reviewed the history and physical and performed a pertinent physical examination on my patient. No changes have occurred unless specified. Cystoscopy Hydrodistension. Time Spent With Patient Time: Total time managing care of this patient today ____ minutes.
--- NOTE | 2023-12-14 14:34 | W.PM.OPN ---
Operative Note Operative Note Date of Service: 12/14/23 Narrative: PREOP DIAGNOSIS: Interstitial cystitis, pelvic pain POSTOP DIAGNOSIS: Interstitial cystitis, pelvic pain PROCEDURE: CYSTOSCOPY HYDRODISTENTION, Bladder installation Anethesia: General Surgeon: Dr. Tj Villa Details of procedure: The patient was brought into the operating room placed on the OR table in supine position. Antibiotics confirmed. General anesthesia was administered. The patient was repositioned into lithotomy position, prepped and draped in the usual sterile fashion. Time-out was done per protocol. A 22 fr cystoscope was placed transurethrally into the bladder. Urine was drained from the bladder was sent for culture. The right and left ureteral orifices were visualized. The entire bladder was visualized. There were no suspicious bladder lesions seen. There were mild trabeculations noted. The bladder was filled with sterile water at 80 cm of water pressure under gravity. The bladder was distended for 2 minutes. Bladder capacity measured 550 mL. Revisualization of the bladder, no glomerulations or Hunner ulcerations. The bladder was refilled with sterile water again at 80 cm of water pressure under gravity. The bladder was distended for 3 minutes. The fluid was drained from the bladder and measured 650 mL. The cystoscope was removed. 2% lidocaine urojet was passed transurethrally, Solution of (1% lidocaine plain, 15 mL, 0.5 % Marcaine 15 mL mixed with 30, 000 units of heparin concentration 5000 units per mL total of 6 mL hepaine) instilled transurethrally into the bladder. The patient was brought out of anesthesia and taken to recovery in stable condition. Complications: None Drains: none
[2023-12-14] MEDS: fentaNYL citrate/PF 100 MCG/2 ML VIAL 25 MCG IVPUSH ×2 (14:45→14:55)
[2023-12-14] MEDS: Phenazopyridine HCL 200 MG TABLET PO (14:46)
== END 2023-12-14 15:47 | disposition home or self-care (01) ==
PROVIDERS: PCP Internal Medicine; Visit Provider Urology
PROC: 0T7B7ZZ Dilation of Bladder, Via Natural or Artificial Opening (ICD-10-PCS; CPT 52260; principal; 2023-12-14 13:20)
DX: N30.10 Interstitial cystitis (chronic) without hematuria (principal); N32.89 Other specified disorders of bladder; R10.2 Pelvic and perineal pain; I47.10 Supraventricular tachycardia, unspecified; E78.00 Pure hypercholesterolemia, unspecified; J45.909 Unspecified asthma, uncomplicated; F32.A Depression, unspecified; F41.9 Anxiety disorder, unspecified; Z88.1 Allergy status to other antibiotic agents; Z88.6 Allergy status to analgesic agent; Z88.8 Allergy status to other drugs, medicaments and biological substances; Z98.890 Other specified postprocedural states; F17.210 Nicotine dependence, cigarettes, uncomplicated
CPT/HCPCS: 52260; 87086; J0690; J1100; J1644; J2250; J2405; J2704; J2795; J3010

== ENCOUNTER → 2023-12-14 11:18 | Outpatient (BNV) | payer OTHER, SELFPAY | PROVIDERS: PCP Internal Medicine; Visit Provider Urology | DX: N30.10 Interstitial cystitis (chronic) without hematuria (principal) | CPT/HCPCS: 52260 ==

== ENCOUNTER 2023-12-19 15:34 | Emergency (ER) | payer OTHER, SELFPAY ==
--- NOTE | ~2023-12-19 | CT_ITS ---
EXAMINATION: CT ABDOMEN AND PELVIS WITH CONTRAST CLINICAL INFORMATION: Lower abdominal pain for one day, rule out small bowel obstruction, pancreatitis COMPARISON: 10/11/2021 TECHNIQUE: Multidetector volumetric images were obtained from the superior aspect of the liver through the pubic symphysis following administration 85 mL of Omnipaque 350 intravenous contrast. Sagittal and coronal reformatted images were obtained on the technologist's workstation. Oral contrast: No This CT examination was performed using dose optimization techniques as appropriate, variously including the following: *Automated exposure control *Adjustment of mA and/or kV according to patient size (this includes techniques or standardized protocols for targeted exams where dose is matched to indication/reason for exam; i.e. extremities or head) *Use of iterative reconstruction technique DLP: 368 mGy-cm FINDINGS: LUNG BASES: The visualized lung bases are unremarkable. LIVER, GALLBLADDER, AND BILIARY TREE: The liver is normal in size, shape, and attenuation. No focal hepatic lesion or biliary ductal dilatation is present. Gallbladder is surgically absent. There is mild CBD dilatation and mild intrahepatic biliary prominence. PANCREAS: Unremarkable. SPLEEN: Unremarkable. ADRENAL GLANDS: Unremarkable. KIDNEYS AND URETERS: There is simple cyst in the upper pole of right kidney measured 1.8 x 1.7 cm. BLADDER: Unremarkable. GASTROINTESTINAL TRACT: The stomach is unremarkable loops of small bowel are normal. Patient is status post ileostomy on the right with parastomal hernia. There is small amount of fluid surrounding small bowel loops on the left, 3 images 53-63 series 2 ABDOMINAL WALL: There is ileostomy on the right, there are postsurgical changes from the mid abdomen. LYMPH NODES: Normal. VASCULAR: Unremarkable. PELVIC VISCERA: Unremarkable. OSSEOUS STRUCTURES: There is compression deformity of indeterminant age of T12 vertebral body. CT/CT abdomen pelvis w IV con IMPRESSION: 1. No evidence of small bowel obstruction. Small amount of fluid surrounding small bowel loops in the left lower quadrant. 2. Status post cholecystectomy with mild prominence of CBD and intrahepatic ducts. 3. Right renal cyst. 4. Postsurgical changes in the mid abdomen with parastomal hernia. 5. Compression deformity of T12 vertebral body. Fleischner guidelines were followed.
[2023-12-19 15:46] VITALS: BP 100/58; BP 109/54; PULSE 74; PULSE 78; RESP 18; O2SAT 96; O2SAT 99; BMI 18.0
[2023-12-19 15:49] VITALS: BP 109/54; PULSE 78; RESP 18; TEMP 36.5; O2SAT 99
--- NOTE | 2023-12-19 15:58 | ED_ITS ---
HPI - Abdominal Pain General Chief Complaint: Abdominal Pain Stated Complaint: ABD PAIN Time Seen by Provider: 12/19/23 15:46 Source: patient Mode of arrival: ambulatory Limitations: no limitations History of Present Illness ED Provider: Dr. Aaron Naqvi HPI narrative: 58-year-old female with a history of asthma, high cholesterol, ulcerative colitis, C diff colitis, interstitial cystitis, anxiety, SVT, recent partial colectomy on 11/19/2023 at [facility] with colostomy who presents emergency department for evaluation of lower abdominal pain which began last night. The patient, on 12/14/2023 (5 days prior to evaluation) she had cystoscopic hydrodistention of her bladder which she gets every 3 months. She states that she often gets pain after this procedure but never the type of pain that she is experiencing today. She states that last night she had a gradual onset of severe lower abdominal pain. She states the pain is a constant, throbbing/stabbing like pain which is greater than 10/10. The patient took 1 of her oxycodone with no relief for the pain. She denied fever but did have chills. She denied cough or chest pain. She was feeling short of breath. She denied nausea or vomiting. She states that she has had a normal output from her colostomy bag. She has not noticed any blood in the colostomy bag. She denied dysuria but has noted some urinary frequency. Patient states she has had 2-3 lb of weight loss over the last month which was unintentional. I did review the operative note by Dr. Muna Graves on 12/14/2023, there appeared to be no complications from the cystoscopic hydrodistention procedure and the patient stated that she tolerated the procedure well. Related Data Home Medications ?Medication ?Instructions ?Recorded ?Confirmed albuterol sulfate 90 mcg/actuation 2 puff inhalation Q4-6H PRN 04/25/20 12/14/23 aerosol inhaler (ProAir HFA) Shortness Of Breath adalimumab 40 mg/0.4 mL 40 mg subcut .Q 14 DAYS 06/21/20 12/14/23 subcutaneous pen kit clonazepam 1 mg tablet 1 mg PO BEDTIME 08/08/21 12/14/23 metoprolol succinate 25 mg 12.5 mg PO DAILY 08/08/21 12/14/23 tablet,extended release 24 hr omeprazole 20 mg capsule,delayed 20 mg PO DAILY 11/03/21 12/14/23 release ondansetron 4 mg disintegrating 4 mg PO BID PRN nausea/vomiting 11/17/22 12/14/23 tablet trazodone 50 mg tablet 50 mg PO BEDTIME 10/15/23 12/14/23 Previous Rx's ?Medication ?Instructions ?Recorded phenazopyridine 200 mg tablet 200 mg PO TID PRN urinary burning 12/14/23 (Pyridium) #20 tabs oxycodone 5 mg tablet 5 mg PO Q8H PRN Pain 7 days #10 12/18/23 tabs Allergies Allergy/AdvReac Type Severity Reaction Status Date / Time amoxicillin [From AUGMENTIN] Allergy Severe SEVERE Verified 12/19/23 15:49 DIARRHEA clavulanic acid Allergy Severe SEVERE Verified 12/19/23 15:49 [From AUGMENTIN] DIARRHEA Kwlgtyc-FGA-OsM Reductase Allergy Intermediate muscle Verified 12/19/23 15:49 Inhibitor aches, [[id number] REDUCTASE cramps INHIBITOR] acetaminophen [ACETAMINOPHEN] AdvReac Severe GI upset. Verified 12/19/23 15:49 Pt confirmed NOT allergic to oxycodone NSAIDS (Non-Steroidal AdvReac Severe Gastrointestinal Verified 12/19/23 15:49 Anti-Inflamma Upset oxycodone [From Percocet] AdvReac Hives Verified 12/19/23 15:49 Review of Systems Review of Systems Yes all other systems are reviewed and are negative [facility] Past Medical History [facility] Narrative: Social history: The patient does smoke cigarettes but states she is cut down to 4 cigarettes per day. She denies alcohol use. She denies drug use. Medical History Colostomy in place Recent bereavement On beta morgan at home Anxiety SVT (supraventricular tachycardia) Depression Lab test negative for COVID-19 virus Back pain History of gastrostomy tube placement Hx of ulcerative colitis Hx of cystitis History of anxiety Asthma Elevated cholesterol Surgical History History of tubal ligation History of endometrial ablation History of bladder surgery Social History Social History Household Members: Significant Other Housing: Apartment Are you a primary home care provider to a significant other at home: No Do you presently have visiting nurse or other home services: Yes ([employer] 1 x week) Patient Tobacco Use Status: Current everyday Tobacco user Tobacco use type: Cigarette Cigarettes Per Day: 4 Years Smoked: 22 Smoked in Last 30 Days: Yes Use of substances other than those prescribed or required for medical reasons: No Advance Directives: No Advance Directives Information Provided: No Do you have a plan to hurt others: No Plan Current occupational status: disabled Physical Exam ED Vital Signs: Vital Signs - 24 hr 12/19/23 15:46 12/19/23 15:49 12/19/23 16:06 Temperature 97.7 F Pulse Rate 74 78 Respiratory Rate 18 18 14 Blood Pressure 109/54 L 109/54 L Pulse Oximetry 99 99 Oxygen Delivery Method Room Air Room Air 12/19/23 16:36 Temperature Pulse Rate 78 Respiratory Rate 16 Blood Pressure 110/62 Pulse Oximetry Oxygen Delivery Method BMI result Body Mass Index 18.0 Vital signs were normal. Exam: General: Awake, alert in no distress Head: Normocephalic, atraumatic EENT: PERRL, Lids normal, sclera normal, conjunctiva normal, nose normal , ears normal, throat without erythema or exudates Neck: Supple, no adenopathy Lung: breath sounds symmetric, no wheezing, rales or rhonchi Chest: symmetric movement, nontender Heart: regular rate and rhythm, normal S1, S2 no murmurs or rubs Abdomen: Right-sided colostomy bag with normal-appearing stool in the bag, mild diffuse abdominal tenderness with moderate suprapubic and bilateral lower quadrant tenderness, normoactive bowel sounds, voluntary guarding but no involuntary guarding Back: no vertebral tenderness, no CVAT Extremities: no deformities, moves all extremities symmetrically Neuro: Awake, alert, oriented, normal speech, cranial nerves intact, moves all extremities symmetrically Psych: Pleasant, cooperative Medical Decision Making Medical Decision Making MDM Narrative: 58-year-old female with a history of asthma, high cholesterol, ulcerative colitis, C diff colitis, interstitial cystitis, anxiety, SVT, recent partial colectomy on 11/19/2023 at [facility] with colostomy who presents emergency department for evaluation of lower abdominal pain came on gradually last night, she describes it as a throbbing/stabbing pain which is greater than 10/10 associated with chills, shortness of breath and urinary frequency. The patient, on 12/14/2023 (5 days prior to evaluation) she had cystoscopic hydrodistention of her bladder which she gets every 3 months. She states that she often gets pain after this procedure but never the type of pain that she is experiencing today. She states that last night she had a gradual onset of severe lower abdominal pain. She states the pain is a constant, throbbing/stabbing like pain which is greater than 10/10. The patient took 1 of her oxycodone with no relief for the pain. She denied fever but did have chills. She denied cough or chest pain. She was feeling short of breath. She denied nausea or vomiting. She states that she has had a normal output from her colostomy bag. She has not noticed any blood in the colostomy bag. She denied dysuria but has noted some urinary frequency. Patient states she has had 2-3 lb of weight loss over the last month which was unintentional. Vital signs were normal. Abdominal exam revealed mild diffuse tenderness with increased tenderness over the suprapubic area noon bilateral lower quadrant areas as well. Patient has a right lower quadrant colostomy which does appear to be collecting stool which appears to be normal in color with no blood in the stool. Differential diagnosis: ?Includes but is not limited to pancreatitis, cystitis, urinary tract infection, bowel obstruction Following evaluation was ordered: CBC, CMP, lipase, PTT, TSH with reflex T4, lactic acid slit, blood cultures x2, CT scan of the abdomen pelvis with IV contrast Patient was initially treated with the following: IV insert, cardiac monitoring, O2 saturation monitoring, morphine 4 mg IV, Zofran 4 mg IV Course: 18:15 My interpretation patient's laboratory evaluation as follows: Normocytic anemia with an H&H of 9.4 and 30.2-no recent values for comparison last H&H was 11.9 and 36.6 on 10/11/2021. PTT was normal. CMP was normal. Lipase was normal. TSH was normal. CT scan of the abdomen pelvis did not reveal any clear cause for the patient's abdominal pain. Patient required 2 more doses of morphine 4 mg IV for pain.The patient states that Tylenol and oxycodone are not helping her pain. I did review her [place] prescription monitoring data and the patient has received 76 prescriptions for controlled substances my 21 providers. She was recently given a prescription on 12/12/2023 for oxycodone 20 tablets and on 12/18/2023 for 10 tablets. Given this prescription has very I told her that I can not prescribe an opiate for her and that she needs to get 1 doctor to prescribe opiates for chronic pain. Patient understood this discussion and was discharged home. Admission/Observation Consideration of admission/observation: Escalation of care including admission/observation considered Lab Data MDM Lab Attestation statement: I reviewed the patient's lab results. 12/19/23 16:29 12/19/23 16:29 Labs: Lab Results 12/19/23 Range/Units 16:29 WBC 7.7 (4.8-10.8) X10*3/uL RBC 3.73 L (4.20-5.50) X10*6/uL Hgb 9.4 L D (12.0-16.0) g/dl Hct 30.2 L (37.0-47.0) % MCV 81.0 (80.0-98.0) fL MCH 25.2 L (27.0-33.0) pg MCHC 31.1 (31.0-35.0) g/dl RDW 18.6 H (11.0-16.0) % Plt Count 256 (160-400) X10*3/uL MPV 10.1 (9.4-12.3) fL Immature Gran % (Auto) 0.3 (0.0-0.4) % Neut % (Auto) 44.1 L (45-73) % Lymph % (Auto) 43.9 H (20-40) % [place] % (Auto) 8.2 (2-11) % Eos % (Auto) 3.1 (0-4) % Baso % (Auto) 0.4 (0-2) % Lymph # (Auto) 3.4 (1.2-4.9) X10*3/uL [place] # (Auto) 0.6 (0.1-1.2) X10*3/uL Eos # (Auto) 0.2 (0.0-0.4) X10*3/uL Baso # (Auto) 0.0 (0.0-0.2) X10*3/uL Abs Immat Gran (auto) 0.02 (0.00-0.03) X10*3/uL Absolute Neuts (auto) 3.4 (2.0-8.3) x10*3/uL Absolute Nucleated RBC 0.000 (0.0-0.012) X10*3/uL Nucleated RBC % (auto) 0.0 (0.0-0.2) /100WBC APTT 30.5 (26.0-36.8) SEC Sodium 139 (135-145) mmol/L Potassium 3.5 (3.3-5.1) mmol/L Chloride 104 (96-108) mmol/L Carbon Dioxide 26 (22-29) mmol/L Anion Gap 13 (12-20) BUN 11 (9-16) mg/dL Creatinine 0.82 (0.5-1.4) mg/dL Estim Creat Clear Calc 57.8 Estimated GFR > 60 Random Glucose 88 (60-115) mg/dL Lactic Acid 1.2 (0.5-2.0) mmol/L Calcium 9.7 (8.4-10.2) mg/dL Total Bilirubin 0.2 (0.0-1.0) mg/dL AST 16 (5-31) U/L ALT 6 (0-31) U/L Alkaline Phosphatase 104 (39-117) U/L Total Protein 7.1 (6.5-8.0) g/dL Albumin 3.7 (3.5-5.0) g/dL Lipase 14 (8-78) U/L TSH 0.46 (0.32-4.0) uIU/mL Radiology Impression Discussion of test interpretation with radiology: I have reviewed the radiologist's reading. Radiologist Impression: CT abdomen pelvis w IV con IMPRESSION: 1. No evidence of small bowel obstruction. Small amount of fluid surrounding small bowel loops in the left lower quadrant. 2. Status post cholecystectomy with mild prominence of CBD and intrahepatic ducts. 3. Right renal cyst. 4. Postsurgical changes in the mid abdomen with parastomal hernia. 5. Compression deformity of T12 vertebral body. Fleischner guidelines were followed. Dictated By: Cindy Womack MD External Record Review External record reviewed: Office record and Outpatient record (Operative note) Prescription Management I considered prescription management with: Pain Medication Chronic Conditions Patient?s care impacted by: Other (Interstitial cystitis, chronic pain syndrome) Medications Administered Discontinued Medications Generic Name Dose Route Start Last Admin Trade Name Freq PRN Reason Stop Dose Admin Sodium Chloride 1,000 mls @ 999 mls/hr 12/19/23 15:58 12/19/23 17:41 Ns IV 12/19/23 16:58 Infused .Q1H1M STA Infusion Iohexol 100 ml 12/19/23 17:27 12/19/23 17:27 Iohexol 350 Mg/Ml 100 Ml Infus..Btl IV 12/19/23 17:28 85 ml ONCE ONE Administration Morphine Sulfate 4 mg 12/19/23 15:58 12/19/23 16:06 Morphine Sulfate 4 Mg/Ml Cartridge IVPUSH 12/19/23 15:59 4 mg ONCE STA Administration Protocol Morphine Sulfate 4 mg 12/19/23 17:19 12/19/23 17:42 Morphine Sulfate 4 Mg/Ml Cartridge IVPUSH 12/19/23 17:20 4 mg ONCE STA Administration Protocol Ondansetron HCl 4 mg 12/19/23 15:58 12/19/23 16:07 Ondansetron Hcl 4 Mg/2 Ml Vial IVPUSH 12/19/23 15:59 4 mg ONCE ONE Administration Discharge Plan Discharge Clinical Impression: Abdominal pain Qualifiers: Abdominal location: lower abdomen, unspecified Qualified Code(s): R10.30 - Lower abdominal pain, unspecified Patient Disposition: Home, Self-Care Instructions: Abdominal Pain (ED) Additional Instructions: Your laboratory evaluation was unremarkable except for anemia. Your CT scan of the abdomen pelvis did not reveal a clear cause for your pain. Continue taking oxycodone as prescribed by your providers. Follow-up with your doctor in 2 days for re-evaluation and discuss chronic pain management since you were requiring frequent doses of oxycodone for your pain. Please return to the emergency department if your symptoms get worse or if you develop any symptoms that are concerning to you. Prescriptions: No Action oxycodone 5 mg tablet 5 mg PO Q8H PRN (Reason: Pain) 7 Days Qty: 10 0RF albuterol sulfate [ProAir HFA] 90 mcg/actuation Hfa Aerosol Inhaler 2 puff INHALATION Q4-6H PRN (Reason: Shortness Of Breath) trazodone 50 mg tablet 50 mg PO BEDTIME phenazopyridine [Pyridium] 200 mg tablet 200 mg PO TID PRN (Reason: urinary burning) Qty: 20 1RF Rx Instructions: use with food adalimumab 40 mg/0.4 mL pen injector kit 40 mg subcut .Q 14 DAYS metoprolol succinate 25 mg tablet extended release 24 hr 12.5 mg PO DAILY clonazepam 1 mg tablet 1 mg PO BEDTIME omeprazole 20 mg capsule,delayed release(DR/EC) 20 mg PO DAILY ondansetron 4 mg tablet,disintegrating 4 mg PO BID PRN (Reason: nausea/vomiting) Print Language: Korean
--- NOTE | 2023-12-19 15:59 | ECG_ITS ---
Test Reason : ABD PAIN Blood Pressure : / mmHG Vent. Rate : 071 BPM Atrial Rate : 071 BPM P-R Int : 148 ms QRS Dur : 084 ms QT Int : 396 ms P-R-T Axes : 050 033 050 degrees QTc Int : 430 ms Normal sinus rhythm Normal ECG When compared with ECG of 08-MAR-2010 14:21, Nonspecific T wave abnormality no longer evident in Inferior leads Nonspecific T wave abnormality no longer evident in Anterior leads Referred By: Aaron Naqvi Electronically Signed By:Obinna Ortiz
[2023-12-19 16:06] VITALS: RESP 14
[2023-12-19] MEDS: Morphine Sulfate 4 MG/ML CARTRIDGE IVPUSH ×3 (16:06→18:45)
[2023-12-19] MEDS: ondansetron HCL 4 MG/2 ML VIAL IVPUSH (16:07)
[2023-12-19] MEDS: 0.9 % Sodium Chloride 1,000 ML 999 ML IV (16:07)
[2023-12-19 16:36] VITALS: BP 110/62; PULSE 78; RESP 16
[2023-12-19 16:43] LABS: MANUAL DIFF FLAG NO
[2023-12-19 16:45] LABS: Basophils Percent Auto 0.4 % (0-2); Eosinophils Absolute Auto 0.2 X10*3/uL (0.0-0.4); Eosinophils Percent Auto 3.1 % (0-4); Hematocrit 30.2 % (37.0-47.0); Hemoglobin 9.4 g/dl (12.0-16.0); Imm Gran Abs Auto 0.02 X10*3/uL (0.00-0.03); Imm Gran Pct Auto 0.3 % (0.0-0.4); Lymphocytes Absolute Auto 3.4 X10*3/uL (1.2-4.9); Lymphocytes Percent Auto 43.9 % (20-40); Mean Corpuscular HGB Conc 31.1 g/dl (31.0-35.0); Mean Corpuscular Hemoglobin 25.2 pg (27.0-33.0); Mean Platelet Volume 10.1 fL (9.4-12.3); Monocytes Absolute Auto 0.6 X10*3/uL (0.1-1.2); Monocytes Percent Auto 8.2 % (2-11); Neutrophils Absolute Auto 3.4 x10*3/uL (2.0-8.3); Neutrophils Percent Auto 44.1 % (45-73); Platelet Count 256 X10*3/uL (160-400); Red Blood Count 3.73 X10*6/uL (4.20-5.50); Red Cell Distribution Width 18.6 % (11.0-16.0); White Blood Count 7.7 X10*3/uL (4.8-10.8)
[2023-12-19 16:56] LABS: Partial Thromboplastin Time 30.5 SEC (26.0-36.8)
[2023-12-19 16:57] LABS: Lactic Acid 1.2 mmol/L (0.5-2.0)
[2023-12-19 17:02] LABS: Alanine Aminotransferase 6 U/L (0-31); Albumin Level 3.7 g/dL (3.5-5.0); Alkaline Phosphatase 104 U/L (39-117); Anion Gap 13 (12-20); Aspartate Amino Transferase 16 U/L (5-31); Bilirubin Total 0.2 mg/dL (0.0-1.0); Blood Urea Nitrogen 11 mg/dL (9-16); Calcium 9.7 mg/dL (8.4-10.2); Carbon Dioxide 26 mmol/L (22-29); Chloride 104 mmol/L (96-108); Creatinine Clr Calc Pharmacy 57.8; Estimated Glomerular Filt Rate > 60; Glucose Random 88 mg/dL (60-115); Lipase 14 U/L (8-78); Potassium 3.5 mmol/L (3.3-5.1); Sodium 139 mmol/L (135-145); Total Protein 7.1 g/dL (6.5-8.0)
[2023-12-19 17:24] LABS: TSH reflex Free T4 0.46 uIU/mL (0.32-4.0)
[2023-12-19] MEDS: iohexoL 350 MG/ML 100 ML INFUS..BTL IV (17:27)
--- NOTE | 2023-12-19 17:40 | PC.NURSE ---
Pt. is on continuous SPO2 monitoring at this time.
[2023-12-19 18:45] VITALS: RESP 15
[2023-12-19 19:23] VITALS: BP 102/59; PULSE 79; RESP 18; TEMP 36.6; O2SAT 97
== END 2023-12-19 19:25 | disposition home or self-care (01) ==
PROVIDERS: Emergency Provider Emergency Medicine Emergency Medical Services
DX: R10.30 Lower abdominal pain, unspecified (principal); J45.909 Unspecified asthma, uncomplicated; I47.10 Supraventricular tachycardia, unspecified; D64.9 Anemia, unspecified; Z79.899 Other long term (current) drug therapy
CPT/HCPCS: 36415; 74177; 80053; 83605; 83690; 84443; 85025; 85730; 87040; 93005; 96361; 96374; 96375; 96376; 99284; 99285; J2270; J2405; Q9967

== ENCOUNTER → 2023-12-19 15:59 | Outpatient (BNV) | payer OTHER, SELFPAY | PROVIDERS: Emergency Provider Emergency Medicine Emergency Medical Services; Visit Provider Internal Medicine Cardiovascular Disease | DX: R10.30 Lower abdominal pain, unspecified (principal) | CPT/HCPCS: 93010 ==

== ENCOUNTER 2024-01-17 18:36 | Emergency (ER) | payer OTHER, SELFPAY ==
[2024-01-17] VITALS (7 sets, daily range): BP systolic 101–134; BP diastolic 56–71; PULSE 65–75; RESP 15–19; TEMP 36.4–36.9; O2SAT 96–100; BMI 18.0
--- NOTE | ~2024-01-17 | US_ITS ---
EXAMINATION: US ABDOMEN LIMITED CLINICAL INFORMATION: Nausea vomiting and upper abdominal pain. COMPARISON: None available. TECHNIQUE: Real-time imaging of the right upper quadrant abdominal viscera. Examination is limited by patient's body habitus FINDINGS: PANCREAS: Visualized portion of the pancreas grossly unremarkable LIVER: The liver is normal in size. The liver contour is normal. Parenchymal echogenicity is diffusely increased suggesting fatty infiltration.. No focal hepatic lesion. There is no intrahepatic biliary duct dilatation seen. GALLBLADDER: Status post cholecystectomy. No abnormality seen in the visualized gallbladder fossa COMMON BILE DUCT: Normal in caliber measuring 0.8 cm in diameter. RIGHT KIDNEY: Normal. No hydronephrosis. No renal calculi or focal parenchymal lesions. The kidney measures 11.0 cm in maximum dimension. FREE FLUID: None. US/US abdomen limited IMPRESSION: Diffuse fatty infiltration of the liver. Status post cholecystectomy.
--- NOTE | 2024-01-17 18:46 | ED_ITS ---
HPI - Abdominal Pain General Chief Complaint: Abdominal Pain Stated Complaint: acute abd pain, nausea Time Seen by Provider: 01/17/24 19:10 Source: patient and EMS Mode of arrival: EMS Limitations: no limitations History of Present Illness HPI narrative: Patient is a 59-year-old female with past medical history of asthma, hypercholesterolemia, ulcerative colitis, C diff colitis, interstitial cystitis, anxiety, SVT, recent partial colectomy 02/19/2024 at [facility] with colostomy presenting to emergency department for evaluation of persistent worsening abdominal pain primarily to the right side across her upper abdomen. She reports that this pain has been ongoing since her procedure. She admits that she was evaluated at [facility] last week approximately 5 days ago, states that she had a CT of her abdomen and pelvis obtained by order on her colorectal surgeon, Dr. Leander Nielsen, she reports that there was no evidence of gallstones but there was ?dilated tubing?. She states she has been taking oxycodone but her pain persists. She has had episodes of vomiting since yesterday described as clear in color. She reports normal output from her colostomy without blood. She denies any fevers or chills. She denies any cough chest pain shortness of breath. She denies any genitourinary symptoms. Related Data Home Medications ?Medication ?Instructions ?Recorded ?Confirmed albuterol sulfate 90 mcg/actuation 2 puff inhalation Q4-6H PRN 04/25/20 12/14/23 aerosol inhaler (ProAir HFA) Shortness Of Breath adalimumab 40 mg/0.4 mL 40 mg subcut .Q 14 DAYS 06/21/20 12/14/23 subcutaneous pen kit clonazepam 1 mg tablet 1 mg PO BEDTIME 08/08/21 12/14/23 metoprolol succinate 25 mg 12.5 mg PO DAILY 08/08/21 12/14/23 tablet,extended release 24 hr omeprazole 20 mg capsule,delayed 20 mg PO DAILY 11/03/21 12/14/23 release ondansetron 4 mg disintegrating 4 mg PO BID PRN nausea/vomiting 11/17/22 12/14/23 tablet trazodone 50 mg tablet 50 mg PO BEDTIME 10/15/23 12/14/23 Previous Rx's ?Medication ?Instructions ?Recorded phenazopyridine 200 mg tablet 200 mg PO TID PRN urinary burning 12/14/23 (Pyridium) #20 tabs oxycodone 5 mg tablet 5 mg PO Q8H PRN Pain 7 days #10 12/18/23 tabs oxycodone 5 mg tablet 5 mg PO Q6H PRN pain #5 tabs 01/17/24 Allergies Allergy/AdvReac Type Severity Reaction Status Date / Time amoxicillin [From AUGMENTIN] Allergy Severe SEVERE Verified 01/17/24 18:52 DIARRHEA clavulanic acid Allergy Severe SEVERE Verified 01/17/24 18:52 [From AUGMENTIN] DIARRHEA Nynvhog-YPZ-ZuF Reductase Allergy Intermediate muscle Verified 01/17/24 18:52 Inhibitor aches, [[id number] REDUCTASE cramps INHIBITOR] acetaminophen [ACETAMINOPHEN] AdvReac Severe GI upset. Verified 01/17/24 18:52 Pt confirmed NOT allergic to oxycodone NSAIDS (Non-Steroidal AdvReac Severe Gastrointestinal Verified 01/17/24 18:52 Anti-Inflamma Upset oxycodone [From Percocet] AdvReac Hives Verified 01/17/24 18:52 Review of Systems Review of Systems Yes all other systems are reviewed and are negative PMFSH Past Medical History Attestation statement: The following information was validated with the patient. Source: old records reviewed Medical History Colostomy in place Recent bereavement On beta morgan at home Anxiety SVT (supraventricular tachycardia) Depression Lab test negative for COVID-19 virus Back pain History of gastrostomy tube placement Hx of ulcerative colitis Hx of cystitis History of anxiety Asthma Elevated cholesterol Surgical History History of tubal ligation History of endometrial ablation History of bladder surgery Social History Social History Household Members: Significant Other Housing: Apartment Are you a primary health care specialist to a significant other at home: No Do you presently have visiting nurse or other home services: Yes (DIVING FISHER 1 x week) Alcohol intake: former Patient Tobacco Use Status: Current everyday Tobacco user Tobacco use type: Cigarette Cigarettes Per Day: 4 Years Smoked: 22 Smoked in Last 30 Days: Yes Use of substances other than those prescribed or required for medical reasons: No Advance Directives: No Advance Directives Information Provided: No Do you have a plan to hurt others: No Plan Patient : No Current occupational status: disabled Physical Exam ED Vital Signs: Vital Signs - 24 hr 01/17/24 18:50 01/17/24 19:06 01/17/24 19:14 Temperature 98.4 F 98.4 F Pulse Rate 75 72 Respiratory Rate 16 18 19 Blood Pressure 134/71 107/64 Pulse Oximetry 100 98 Oxygen Delivery Method Room Air Room Air 01/17/24 20:50 01/17/24 21:15 01/17/24 22:00 Temperature 97.6 F Pulse Rate 68 65 Respiratory Rate 15 16 16 Blood Pressure 101/56 L 103/60 Pulse Oximetry 97 96 Oxygen Delivery Method Room Air Room Air BMI result Body Mass Index 18.0 Appearance: Alert.?Oriented to person, place and time. No acute distress.?Normal affect. Eyes: Pupils equal, round and reactive to light.? ENT: Pharynx normal.?? Neck: Normal inspection.? Neck supple.?? CVS: Heart sounds normal. Normal heart rate and rhythm.? Pulses normal.?? Respiratory: No respiratory distress.? Lung sounds clear to auscultation bilaterally?? Abdomen: Soft with diffuse abdominal tenderness, negative Reynolds sign, tenderness more pronounced in the bilateral upper quadrants. Right-sided colostomy bag with normal-appearing output of stool. No CVA tenderness. Normoactive bowel sounds. Skin: Skin warm and dry.? Normal skin color.? Extremities: No lower extremity edema.? Neuro: Moves all extremities spontaneously. Sensation intact bilaterally. CN II- XII intact. No focal neuro deficits. Ambulates with normal steady gait. Course Reevaluation(s) Reevaluation #1: Received records from [facility]. 01/12/[address] of the abdomen and pelvis with IV and oral contrast the following is the provided impression from radiology: No acute abnormality or change with similar postsurgical changes of subtotal colectomy. No bowel obstruction. Central biliary ductal dilation including dilation of the common bile duct is unchanged compared to 12/29/2023 (previously noted to be increased). A radiopaque/calcified obstructing causes not seen on CT. Recommend correlation with laboratory values and if there is persistent concern for underlying obstruction consideration could be made for MRCP for further evaluation. Time: 19:51 Reevaluation #2: Ultrasound reveals hepatic steatosis, status post cholecystectomy, normal CBD; 0.8 cm in diameter, pancreas grossly unremarkable. Patient reports that she continues to still have abdominal pain. She has required 2 doses of morphine 4 mg IV. She states that the oxycodone she has previously been prescribed and his taking at home is not alleviating her pain. On review of her BUILDING ARCHITECTURAL DESIGNER she has had multiple prescriptions for controlled substances including opiates most recently having received oxycodone 5 mg tablets a 5 day supply on 01/14/2024. She states that she only has 1 tablet left and does not believe that she can make it through the night and tomorrow with her pain. I did advise patient I would prescribe an additional 5 tablets however, we had an at length discussion about chronic pain management particularly with opiate prescriptions, she was advised to have a conversation with her primary care doctor and/or specialist and consider pain management evaluation given her multiple prescriptions frequent dosing of oxycodone. Time: 22:18 Medical Decision Making Medical Decision Making [facility] Narrative: Patient is a 59-year-old female with past medical history of asthma, hypercholesterolemia, ulcerative colitis, C diff colitis, interstitial cystitis, anxiety, SVT, recent partial colectomy 11/19/2023 at [facility] with colostomy presenting to emergency department today for worsening abdominal pain nausea and vomiting as per HPI. Plan to obtain records from [facility] including CT imaging. Will obtain CBC to evaluate for leukocytosis/ anemia, CMP and lipase to evaluate for abnormal electrolytes /abnormal renal function/ abnormal hepatic/biliary function, ultrasound of the abdomen and Urinalysis. Patient received normal saline IV fluid, Zofran IV, morphine IV Differential Diagnosis Differential Diagnoses: The differential diagnosis associated with the presentation includes (Cholecystitis, CBD stone, pancreatitis, bowel obstruction, cystitis) Admission/Observation Consideration of admission/observation: Escalation of care including admission/observation considered Lab Data MDM Lab Attestation statement: I reviewed the patient's lab results. 01/17/24 19:20 01/17/24 19:20 Labs: Lab Results 01/17/24 Range/Units 19:20 WBC 7.2 (4.8-10.8) X10*3/uL RBC 3.71 L (4.20-5.50) X10*6/uL Hgb 9.3 L (12.0-16.0) g/dl Hct 28.4 L (37.0-47.0) % MCV 76.5 L (80.0-98.0) fL MCH 25.1 L (27.0-33.0) pg MCHC 32.7 (31.0-35.0) g/dl RDW 17.5 H (11.0-16.0) % Plt Count 204 (160-400) X10*3/uL MPV 9.3 L (9.4-12.3) fL Immature Gran % (Auto) 0.1 (0.0-0.4) % Neut % (Auto) 42.4 L (45-73) % Lymph % (Auto) 46.5 H (20-40) % Sibley % (Auto) 10.2 (2-11) % Eos % (Auto) 0.4 (0-4) % Baso % (Auto) 0.4 (0-2) % Lymph # (Auto) 3.3 (1.2-4.9) X10*3/uL Sibley # (Auto) 0.7 (0.1-1.2) X10*3/uL Eos # (Auto) 0.0 (0.0-0.4) X10*3/uL Baso # (Auto) 0.0 (0.0-0.2) X10*3/uL Abs Immat Gran (auto) 0.01 (0.00-0.03) X10*3/uL Absolute Neuts (auto) 3.1 (2.0-8.3) x10*3/uL Absolute Nucleated RBC 0.000 (0.0-0.012) X10*3/uL Nucleated RBC % (auto) 0.0 (0.0-0.2) /100WBC Sodium 136 (135-145) mmol/L Potassium 3.9 (3.3-5.1) mmol/L Chloride 108 (96-108) mmol/L Carbon Dioxide 23 (22-29) mmol/L Anion Gap 9 L (12-20) BUN 21 H (9-16) mg/dL Creatinine 0.89 (0.5-1.4) mg/dL Estim Creat Clear Calc 52.6 Estimated GFR > 60 Random Glucose 90 (60-115) mg/dL Calcium 8.5 D (8.4-10.2) mg/dL Magnesium 1.8 (1.6-2.6) mg/dL Total Bilirubin 0.2 (0.0-1.0) mg/dL AST 62 H (5-31) U/L ALT 38 H (0-31) U/L Alkaline Phosphatase 149 H (39-117) U/L Total Protein 6.1 L (6.5-8.0) g/dL Albumin 3.1 L (3.5-5.0) g/dL Lipase 16 (8-78) U/L Urine Color Yellow Urine Appearance Clear Urine pH 5.5 (5.0-9.0) Ur Specific Pearcy 1.025 (1.005-1.025) Urine Protein Negative (Neg-Trace) mg/dL Urine Glucose (UA) Negative (Negative) mg/dL Urine Ketones Negative (Negative) mg/dL Urine Blood Negative (Negative) Urine Nitrite Negative (Negative) Ur Leukocyte Esterase Trace H (Negative) Urine RBC 0-2 (0-2) /HPF Urine WBC 0-5 (0-5) /HPF Ur Squamous Epith Cells 6-10 (0-2) /HPF Urine Bacteria None Seen (None Seen) Hyaline Casts 0-2 (0-2) /LPF Independent Interpretation I performed an independent interpretation of an: Ultrasound Radiology Impression Discussion of test interpretation with radiology: I have reviewed the radiologist's reading. Radiologist Impression: US/US abdomen limited IMPRESSION: Diffuse fatty infiltration of the liver. Status post cholecystectomy. External Record Review External record reviewed: Outpatient record and Prior outpatient radiology (As per course narrative) Medications Administered Discontinued Medications Generic Name Dose Route Start Last Admin Trade Name Freq PRN Reason Stop Dose Admin Sodium Chloride 1,000 mls @ 999 mls/hr 01/17/24 19:00 01/17/24 20:16 Ns IV 01/17/24 20:00 Infused .Q1H1M MELY Infusion Morphine Sulfate 4 mg 01/17/24 18:57 01/17/24 19:14 Morphine Sulfate 4 Mg/Ml Cartridge IVPUSH 01/17/24 18:58 4 mg ONCE ONE Administration Protocol Morphine Sulfate 4 mg 01/17/24 20:42 01/17/24 20:50 Morphine Sulfate 4 Mg/Ml Cartridge IVPUSH 01/17/24 20:43 4 mg ONCE ONE Administration Protocol Ondansetron HCl 4 mg 01/17/24 18:57 01/17/24 19:14 Ondansetron Hcl 4 Mg/2 Ml Vial IVPUSH 01/17/24 18:58 4 mg ONCE ONE Administration Critical Care Time Critical Care Time Critical Care Time: Yes Total Critical Care Time: 40 Attestation: I personally attest to this critical care time spent taking care of the patient exclusive of all other billable procedures was approximately 40 minutes including initial evaluation of patient, ordering tests, IV morphine and re- evaluation, EKG interpretation, medical consultation, documentation, re- evaluation. Discharge Plan Discharge Clinical Impression: Abdominal pain Qualifiers: Abdominal location: unspecified location Qualified Code(s): R10.9 - Unspecified abdominal pain Patient Disposition: Home, Self-Care Additional Instructions: As discussed it is very important that you follow-up with your providers including your manager training and development, colorectal specialist, and primary care provider. You may need to have a conversation with your doctor regarding chronic pain management You may return to emergency department any new or worsening symptoms or concerns Prescriptions: New oxycodone 5 mg tablet 5 mg PO Q6H PRN (Reason: pain) Qty: 5 0RF Rx Instructions: Partial Fill upon patient request. No Action oxycodone 5 mg tablet 5 mg PO Q8H PRN (Reason: Pain) 7 Days Qty: 10 0RF albuterol sulfate [ProAir HFA] 90 mcg/actuation Hfa Aerosol Inhaler 2 puff INHALATION Q4-6H PRN (Reason: Shortness Of Breath) trazodone 50 mg tablet 50 mg PO BEDTIME phenazopyridine [Pyridium] 200 mg tablet 200 mg PO TID PRN (Reason: urinary burning) Qty: 20 1RF Rx Instructions: use with food adalimumab 40 mg/0.4 mL pen injector kit 40 mg subcut .Q 14 DAYS metoprolol succinate 25 mg tablet extended release 24 hr 12.5 mg PO DAILY clonazepam 1 mg tablet 1 mg PO BEDTIME omeprazole 20 mg capsule,delayed release(DR/EC) 20 mg PO DAILY ondansetron 4 mg tablet,disintegrating 4 mg PO BID PRN (Reason: nausea/vomiting) Referrals: Brett Su MD [Primary Care Provider] - Print Language: Spanish
--- NOTE | 2024-01-17 19:09 | MHC.EDTECH ---
Patient BIBA,changed into hospital attire,vitals taken placed patient on the insulation packer,ambulated patient to the bathroom with a 1 assist with a steady gait,urine and labs obtained and sent to lab,warm blanket given call inno in reach
[2024-01-17] MEDS: Morphine Sulfate 4 MG/ML CARTRIDGE IVPUSH ×2 (19:14→20:50)
[2024-01-17] MEDS: ondansetron HCL 4 MG/2 ML VIAL IVPUSH (19:14)
[2024-01-17] MEDS: 0.9 % Sodium Chloride 1,000 ML 999 ML IV (19:15)
[2024-01-17 19:26] LABS: MANUAL DIFF FLAG NO
[2024-01-17 19:30] LABS: Appearance Urine Clear; Basophils Percent Auto 0.4 % (0-2); Color Urine Yellow; Eosinophils Percent Auto 0.4 % (0-4); Glucose Urine UA Negative (Negative); Hematocrit 28.4 % (37.0-47.0); Hemoglobin 9.3 g/dl (12.0-16.0); Imm Gran Abs Auto 0.01 X10*3/uL (0.00-0.03); Imm Gran Pct Auto 0.1 % (0.0-0.4); Leukocyte Esterase Urine Trace (Negative); Lymphocytes Absolute Auto 3.3 X10*3/uL (1.2-4.9); Lymphocytes Percent Auto 46.5 % (20-40); Mean Corpuscular HGB Conc 32.7 g/dl (31.0-35.0); Mean Corpuscular Hemoglobin 25.1 pg (27.0-33.0); Mean Corpuscular Volume 76.5 fL (80.0-98.0); Mean Platelet Volume 9.3 fL (9.4-12.3); Monocytes Absolute Auto 0.7 X10*3/uL (0.1-1.2); Monocytes Percent Auto 10.2 % (2-11); Neutrophils Absolute Auto 3.1 x10*3/uL (2.0-8.3); Neutrophils Percent Auto 42.4 % (45-73); Nitrite Urine Negative (Negative); PH 5.5 (5.0-9.0); Platelet Count 204 X10*3/uL (160-400); Red Blood Count 3.71 X10*6/uL (4.20-5.50); Red Cell Distribution Width 17.5 % (11.0-16.0); Specific Gravity - Urine 1.025 (1.005-1.025); UMIC TRIGGER UACC YES; Urine Blood Negative (Negative); Urine Ketones Negative (Negative); Urine Protein Negative (Neg-Trace); White Blood Count 7.2 X10*3/uL (4.8-10.8)
[2024-01-17 19:34] LABS: Bacteria Urine None Seen (None Seen); Hyaline Casts Urine 0-2 /LPF (0-2); WBC Urine 0-5 /HPF (0-5)
[2024-01-17 19:52] LABS: Alanine Aminotransferase 38 U/L (0-31); Albumin Level 3.1 g/dL (3.5-5.0); Alkaline Phosphatase 149 U/L (39-117); Anion Gap 9 (12-20); Aspartate Amino Transferase 62 U/L (5-31); Bilirubin Total 0.2 mg/dL (0.0-1.0); Blood Urea Nitrogen 21 mg/dL (9-16); Calcium 8.5 mg/dL (8.4-10.2); Carbon Dioxide 23 mmol/L (22-29); Chloride 108 mmol/L (96-108); Creatinine Clr Calc Pharmacy 52.6; Estimated Glomerular Filt Rate > 60; Glucose Random 90 mg/dL (60-115); Lipase 16 U/L (8-78); Magnesium 1.8 mg/dL (1.6-2.6); Potassium 3.9 mmol/L (3.3-5.1); Sodium 136 mmol/L (135-145); Total Protein 6.1 g/dL (6.5-8.0)
[2024-01-17 20:02] LABS: RBC Urine 0-2 /HPF (0-2)
--- NOTE | 2024-01-17 22:03 | MHC.EDTECH ---
Hourly rounds and vitals completed,call nino in reach
== END 2024-01-17 23:52 | disposition home or self-care (01) ==
PROVIDERS: Nurse Practitioner Family; Emergency Provider Emergency Medicine Emergency Medical Services; PCP Internal Medicine
DX: R10.9 Unspecified abdominal pain (principal); R11.0 Nausea; F17.210 Nicotine dependence, cigarettes, uncomplicated; Z79.899 Other long term (current) drug therapy
CPT/HCPCS: 36415; 76705; 80053; 81001; 83690; 83735; 85025; 96361; 96374; 96375; 96376; 99284; 99285; J2270; J2405

== ENCOUNTER 2024-02-01 15:42 | Outpatient (AMB) | payer OTHER, SELFPAY ==
--- NOTE | 2024-02-01 15:52 | MHC.OFFVIS ---
Intake Visit Reasons: 2m follow up Intake Note: Patient is Present for Telephone Follow Up For Urology Med:none Antibiotic Allergy: Amoxicillin, Blood Thinner: None Allergies amoxicillin [From AUGMENTIN] Allergy (Severe, Verified 04/07/24 11:32) SEVERE DIARRHEA Qhpqwoh-PYX-SsI Reductase Inhibitor [OVZIRXP-YAY-AGO REDUCTASE INHIBITOR] Allergy (Intermediate, Verified 04/07/24 11:32) muscle aches, cramps acetaminophen [ACETAMINOPHEN] Adverse Reaction (Severe, Verified 04/07/24 11:32) GI upset. Pt confirmed NOT allergic to oxycodone NSAIDS (Non-Steroidal Anti-Inflamma Adverse Reaction (Severe, Verified 04/07/24 11:32) Gastrointestinal Upset HPI Comments Details: Randi is a pleasant female. She is a patient of Dr. Su. she seen for the following urologic conditions - interstitial cystitis Telemedicine evaluation 15 minute consultation Video attempted Doximity edd Recurrent interstitial cystitis Did respond to last hydrodistention Interested in possible rescue solutions to start Interstitial cystitis Patient with interstitial cystitis and bladder pain which responded to therapeutic hydrodistention Last hydrodistention - Apr 2023 Was previously on every 3 month schedule but over the last year had been doing every 2 months Would like to have another cystoscopy - hydrodistention done risks benefits potential complications morbidity mortality reviewed all questions answered informed consent obtained [facility] Medical History Colostomy in place On beta morgan at home Anxiety SVT (supraventricular tachycardia) Depression Back pain History of gastrostomy tube placement Hx of ulcerative colitis Hx of cystitis History of anxiety Asthma Elevated cholesterol Surgical History History of tubal ligation History of endometrial ablation History of bladder surgery Social History Household Members: Significant Other Housing: Apartment Are you a primary in home caregiver to a significant other at home: No Do you presently have visiting nurse or other home services: No 75 years or older and lives alone: No Alcohol intake: former Patient Tobacco Use Status: Current everyday Tobacco user Tobacco use type: Cigarette Cigarettes Per Day: 4 Years Smoked: 22 Current occupational status: disabled Review of Systems Const All systems reviewed & are unremarkable except as noted in HPI and below Reports no additional complaints Resp Reports no additional complaints GI Reports no additional complaints Reports as per HPI Musc Reports no additional complaints Physical Exam Telemedicine evaluation Appropriate responses Regular breathing rate and rhythm HEENT Head: Yes normal to inspection Ears: hearing grossly normal bilaterally Eyes General: appearance normal, both eyes and all related structures Neck Neck: Yes normal visual inspection Chest Chest palpation & inspection: normal inspection of the chest Resp Effort & Inspection: normal respiratory effort and able to speak in complete sentences Telehealth Telehealth Telehealth Platform: [facility] [place] Location of provider rendering services: practice address Location of patient: address on file Patient Identification confirmed using: Name, : Yes Telehealth method: voice only Patient verbally consented to treatment: Yes Patient verbally consented to billing insurance company: Yes Patient informed of any privacy concerns related to visit: Yes Minutes spent on Phone/Video with Pt.: 15 Assessment & Plan Assessment & Plan (1) Urinary urgency: Code(s): R39.15 - Urgency of urination Category: Medical Plan Follow as planned Medications: New oxybutynin chloride ER 5 mg PO DAILY 30 tabs 1RF 30 days R39.15 - Urgency of urination, N32.81 - Overactive bladder oxycodone Partial Fill upon patient request. 5 mg PO Q12H PRN 20 tabs 0RF pain 30 days R39.15 - Urgency of urination, N20.0 - Calculus of kidney Patient Instructions: Imaging studies, laboratory and physical exam results were discussed and reviewed in detail. No major barriers to patient understanding were identified. An opportunity to ask questions regarding the treatment plan was provided. All questions were answered. The patient expressed understanding and agreement with the above treatment plan. The patient is aware they should contact our office by phone for worsening of their current condition or the appearance of new urologic symptoms. Compliance is encouraged with any medications and followup testing that is ordered. It is a privilege to participate in the urologic care of your patient. If you have any questions or concerns regarding treatment for the above conditions, or other urologic issues, please do not hesitate to contact me. The office telephone contact is [phone]. This note is constructed using voice recognition software. While every effort has been made to ensure accuracy beet end supervisor errors may have been included. Yours sincerely, Dr Mk Cornelius MD, [facility] - Urology Providers of Expert, Compassionate Care for the Genitourinary System Coding Level of Care Code Tele Est Pt Level 3 (02940) Diagnoses Urinary urgency R39.15
== END 2024-02-01 16:30 | disposition home or self-care (01) ==
LOC: HO.HUSH 15:42
PROVIDERS: PCP Internal Medicine; Visit Provider Urology
DX: R39.15 Urgency of urination (principal)
CPT/HCPCS: 99442

== ENCOUNTER → 2024-02-01 15:42 | Outpatient (BNVA) | payer OTHER, SELFPAY | PROVIDERS: PCP Internal Medicine; Visit Provider Urology ==

== ENCOUNTER 2024-02-23 14:50 | Emergency (ER) | payer OTHER, SELFPAY ==
[2024-02-23 15:04] VITALS: BP 147/76; PULSE 62; O2SAT 96
--- NOTE | 2024-02-23 15:06 | ED_ITS ---
HPI - General Adult General Chief complaint: Abdominal Pain Stated complaint: ABD PAIN PER EMS Time Seen by Provider: 02/23/24 15:05 Source: patient and EMS Mode of arrival: EMS Limitations: no limitations History of Present Illness ED Provider: Juana Lucio PA-C HPI narrative: Patient is a 59 year old assigned female at with a history of anemia of chronic disease, anxiety, asthma, C. difficile in the past, depression, fibromyalgia, chronic abdominal pain, hyperlipidemia, IBS, peripheral neuropathy, paroxysmal SVT, tobacco use, ulcerative colitis, right-sided colostomy, presenting to the emergency department today with acute on chronic abdominal pain. Patient states that she has been dealing with chronic abdominal pain for a long time. Patient states that she has multiple medications at home but they aren't working. Patient states that Morphine, Zofran, and Lorazepam usually help the best. Patient denies any dizziness, lightheadedness, nausea, vomiting, fever, chills, blurry vision, double vision, loss of vision, chest pain, difficulty breathing, shortness of breath, back pain, night sweats, pain with urination, increased urinary frequency, increased urinary urgency, blood in her urine or stool, syncope or a near syncopal episode, recent trauma or falls, bowel incontinence, bladder incontinence, or any other complaints at this time. Relieving factors: none Exacerbating factors: none Associated symptoms: denies other symptoms Related Data Home Medications ?Medication ?Instructions ?Recorded ?Confirmed albuterol sulfate 90 mcg/actuation 2 puff inhalation Q4-6H PRN 04/25/20 12/14/23 aerosol inhaler (ProAir HFA) Shortness Of Breath adalimumab 40 mg/0.4 mL 40 mg subcut .Q 14 DAYS 06/21/20 12/14/23 subcutaneous pen kit clonazepam 1 mg tablet 1 mg PO BEDTIME 08/08/21 12/14/23 metoprolol succinate 25 mg 12.5 mg PO DAILY 08/08/21 12/14/23 tablet,extended release 24 hr omeprazole 20 mg capsule,delayed 20 mg PO DAILY 11/03/21 12/14/23 release ondansetron 4 mg disintegrating 4 mg PO BID PRN nausea/vomiting 11/17/22 12/14/23 tablet trazodone 50 mg tablet 50 mg PO BEDTIME 10/15/23 12/14/23 Previous Rx's ?Medication ?Instructions ?Recorded oxycodone 5 mg tablet 5 mg PO Q6H PRN pain #5 tabs 01/17/24 levofloxacin 250 mg tablet 250 mg PO DAILY #3 tabs 01/29/24 phenazopyridine 200 mg tablet 200 mg PO TID PRN urinary burning 01/29/24 (Pyridium) #20 tabs oxybutynin chloride 5 mg 5 mg PO DAILY 30 days #30 tabs 02/01/24 tablet,extended release 24 hr oxycodone 5 mg tablet 5 mg PO Q12H PRN pain 30 days #20 02/01/24 tabs Allergies Allergy/AdvReac Type Severity Reaction Status Date / Time amoxicillin [From AUGMENTIN] Allergy Severe SEVERE Verified 02/23/24 15:15 DIARRHEA clavulanic acid Allergy Severe SEVERE Verified 02/23/24 15:15 [From AUGMENTIN] DIARRHEA [id number]-MfP Reductase Allergy Intermediate muscle Verified 02/23/24 15:15 Inhibitor aches, [[id number]-[id number] REDUCTASE cramps INHIBITOR] acetaminophen [ACETAMINOPHEN] AdvReac Severe GI upset. Verified 02/23/24 15:15 Pt confirmed NOT allergic to oxycodone NSAIDS (Non-Steroidal AdvReac Severe Gastrointestinal Verified 02/23/24 15:15 Anti-Inflamma Upset oxycodone [From Percocet] AdvReac Hives Verified 02/23/24 15:15 Review of Systems 2 Constitutional: Constitutional: Reports no additional constitutional complaints, Denies chills, Denies fever(s) and Denies night sweats Eyes: Eyes: Reports no additional eye complaints, Denies blurry vision, Denies change in vision, Denies diplopia, Denies eye discharge, Denies loss of vision and Denies eye pain ENT: Denies dizziness Cardiovascular: Cardiovascular: Reports no additional cardiovascular complaints, Denies chest pain, Denies lightheadedness, Denies Loss of Consciousness and Denies dyspnea Respiratory: Respiratory: Reports no additional respiratory complaints and Denies dyspnea Gastrointestinal: Gastrointestinal: Reports no additional gastrointestinal complaints, Reports abdominal pain, Denies melena, Denies hematochezia, Denies change in bowel habits and Denies change in stool character Genitourinary: Genitourinary: Denies hematuria, Denies urinary frequency, Denies dysuria, Denies urinary incontinence, Denies urinary hesitancy and Denies urinary urgency Musculoskeletal: Musculoskeletal: Reports no additional musculoskeletal complaints, Denies numbness and Denies tingling Neurologic: Denies dizziness, Denies loss of vision, Denies numbness and Denies tingling Psychiatric: Psychiatric: Reports no additional psychiatric complaints Endocrine: Endocrine: Reports no additional endocrine complaints Hematologic/Lymphatic: Hematologic/Lymphatic: Reports no additional hematologic/lymphatic complaints Allergic/Immunologic: Allergic/Immunologic: Reports no additional allergic/immunologic complaints [facility] Past Medical History Attestation statement: The following information was validated with the patient. Source: old records reviewed and nursing notes reviewed Medical History Colostomy in place Recent bereavement On beta morgan at home Anxiety SVT (supraventricular tachycardia) Depression Lab test negative for COVID-19 virus Back pain History of gastrostomy tube placement Hx of ulcerative colitis Hx of cystitis History of anxiety Asthma Elevated cholesterol Surgical History History of tubal ligation History of endometrial ablation History of bladder surgery Social History Social History Household Members: Significant Other Housing: Apartment Are you a primary vision care associate to a significant other at home: No Do you presently have visiting nurse or other home services: Yes ([facility] 1 x week) Alcohol intake: former Patient Tobacco Use Status: Current everyday Tobacco user Tobacco use type: Cigarette Cigarettes Per Day: 4 Years Smoked: 22 Advance Directives: No Advance Directives Information Provided: No Do you have a plan to hurt others: No Plan Current occupational status: disabled Physical Exam ED Vital Signs: Vital Signs - 24 hr 02/23/24 15:10 02/23/24 15:45 02/23/24 16:07 Temperature 97.9 F Pulse Rate 77 77 Respiratory Rate 18 18 18 Blood Pressure 117/61 122/68 Pulse Oximetry 96 97 Oxygen Delivery Method Room Air 02/23/24 17:00 Temperature 98.1 F Pulse Rate 69 Respiratory Rate 18 Blood Pressure 121/72 Pulse Oximetry 97 Oxygen Delivery Method Room Air BMI result Body Mass Index 17.5 Const General: cooperative, no acute distress, alert and awake Nutritional Appearance: well nourished Orientation/consciousness: patient oriented x3 Limitations: no limitations HENMT Head: Yes normal to inspection and Yes atraumatic Ears: hearing grossly normal bilaterally and external ears normal General nose exam: Normal external nose present, no nasal discharge noted and no epistaxis Face and sinus: Yes normal facial exam, No abrasion and No laceration Mouth: Normal oral and palatal mucosa present, no drooling and no muffled voice Eyes General: appearance normal, both eyes and all related structures Periorbital: periorbital findings normal Eyelids: Yes eyelids normal Conjunctivae: conjunctivae normal Pupils: Equal, round and reactive pupils present EOM: EOMs intact bilaterally Neck Neck: Yes normal visual inspection, Yes full ROM and Yes no lymphadenopathy Chest Chest palpation & inspection: normal inspection of the chest Resp Effort & Inspection: normal respiratory effort and able to speak in complete sentences GI Other: right sided colostomy bag with normal appearing stool Neuro General: patient oriented x3 and moves all extremities Cranial nerves: Yes Equal, round and reactive pupils present Cognition (Neuro): normal cognition Extrem General: Yes normal to inspection, Yes full ROM and Yes capillary refill normal Psych Appearance: grossly normal Mental Status: mental status grossly normal Affect: normal affect Attitude: cooperative Thought process: Normal thought process present Thought content: Normal thought content present Insight: Good insight present (Psych) Medications Administered Discontinued Medications Generic Name Dose Route Start Last Admin Trade Name Freq PRN Reason Stop Dose Admin Hydromorphone HCl 0.5 mg 02/23/24 15:27 02/23/24 16:07 Hydromorphone Hcl 1 Mg/Ml Syringe IVPUSH 02/23/24 15:28 0.5 mg ONCE ONE Administration Protocol Sodium Chloride 1,000 mls @ 999 mls/hr 02/23/24 16:15 02/23/24 16:15 Ns IV 02/23/24 17:15 999 mls/hr .Q1H1M MELY Administration Lorazepam 1 mg 02/23/24 15:27 02/23/24 16:08 Lorazepam 2 Mg/Ml Vial IVPUSH 02/23/24 15:28 1 mg ONCE ONE Administration Ondansetron HCl 4 mg 02/23/24 15:27 02/23/24 16:07 Ondansetron Hcl 4 Mg/2 Ml Vial IVPUSH 02/23/24 15:28 4 mg ONCE ONE Administration Medical Decision Making Medical Decision Making MDM Narrative: Patient is a 59 year old assigned female at with a history of anemia of chronic disease, anxiety, asthma, C. difficile in the past, depression, fibromyalgia, chronic abdominal pain, hyperlipidemia, IBS, peripheral neuropathy, paroxysmal SVT, tobacco use, ulcerative colitis, right-sided colostomy, presenting to the emergency department today with acute on chronic abdominal pain. Patient's physical exam was as noted in the physical exam portion of this note. Patient's blood work was unremarkable. Patient's urine showed no acute process. I reviewed the patient's records from [facility] including her emergency department visits on 02/19/2024 and 02/20/2024. Patient's CT abdomen and lab work was unremarkable on both of those visits. I explained my physical exam findings as well as all test results to the patient. I answered all questions asked by the patient. Patient was given 1 dose of the requested medication. I informed the patient that she has multiple medications prescribed for this already, including multiple narcotics, and I am not providing additional prescriptions. I stressed the importance of the patient taking her medication as directed (either prescribed or as the over the counter packaging recommends). I stressed the importance of the patient following up with her primary care provider and a pain specialist. I stressed the importance of the patient returning to the emergency department immediately if her symptoms were to worsen or if she were to develop any dizziness, shortness of breath, difficulty breathing, chest pain, blurry vision, loss of vision, nausea, vomiting, abdominal pain, fever, chills, back pain, or any other complaints. Patient verbalized agreement and understanding with this treatment plan and discharge. Differential Diagnosis Differential Diagnoses: The differential diagnosis associated with the presentation includes Chronic abdominal pain Admission/Observation Consideration of admission/observation: Escalation of care including admission/observation considered Patient would have been admitted to the hospital had her work up had any findings where hospital admission was appropriate and her clinical presentation warranted hospital admission. Lab Data [facility] Lab Attestation statement: I reviewed the patient's lab results. My interpretation of these results are in the [facility] Rationale portion of this note. 02/23/24 16:21 02/23/24 16:21 Labs: Lab Results 02/23/24 02/23/24 Range/Units 15:56 16:21 WBC 6.2 (4.8-10.8) X10*3/uL RBC 3.45 L (4.20-5.50) X10*6/uL Hgb 8.5 L (12.0-16.0) g/dl Hct 25.9 L (37.0-47.0) % MCV 75.1 L (80.0-98.0) fL MCH 24.6 L (27.0-33.0) pg MCHC 32.8 (31.0-35.0) g/dl RDW 17.4 H (11.0-16.0) % Plt Count 215 (160-400) X10*3/uL MPV 9.4 (9.4-12.3) fL Immature Gran % (Auto) 0.3 (0.0-0.4) % Neut % (Auto) 53.5 (45-73) % Lymph % (Auto) 36.4 (20-40) % [place] % (Auto) 9.0 (2-11) % Eos % (Auto) 0.3 (0-4) % Baso % (Auto) 0.5 (0-2) % Lymph # (Auto) 2.3 (1.2-4.9) X10*3/uL [place] # (Auto) 0.6 (0.1-1.2) X10*3/uL Eos # (Auto) 0.0 (0.0-0.4) X10*3/uL Baso # (Auto) 0.0 (0.0-0.2) X10*3/uL Abs Immat Gran (auto) 0.02 (0.00-0.03) X10*3/uL Absolute Neuts (auto) 3.3 (2.0-8.3) x10*3/uL Absolute Nucleated RBC 0.000 (0.0-0.012) X10*3/uL Nucleated RBC % (auto) 0.0 (0.0-0.2) /100WBC Sodium 139 (135-145) mmol/L Potassium 3.5 (3.3-5.1) mmol/L Chloride 106 (96-108) mmol/L Carbon Dioxide 29 (22-29) mmol/L Anion Gap 8 L (12-20) BUN 13 (9-16) mg/dL Creatinine 0.78 (0.5-1.4) mg/dL Estim Creat Clear Calc 58.3 Estimated GFR > 60 Random Glucose 89 (60-115) mg/dL Calcium 9.1 D (8.4-10.2) mg/dL Magnesium 1.7 (1.6-2.6) mg/dL Total Bilirubin 0.3 (0.0-1.0) mg/dL AST 21 (5-31) U/L ALT 18 (0-31) U/L Alkaline Phosphatase 124 H (39-117) U/L Total Protein 6.0 L (6.5-8.0) g/dL Albumin 3.2 L (3.5-5.0) g/dL Urine Color Yellow Urine Appearance Clear Urine pH 6.0 (5.0-9.0) Ur Specific [place] <= 1.005 (1.005-1.025) Urine Protein Negative (Neg-Trace) mg/dL Urine Glucose (UA) Negative (Negative) mg/dL Urine Ketones Negative (Negative) mg/dL Urine Blood Negative (Negative) Urine Nitrite Negative (Negative) Ur Leukocyte Esterase Negative (Negative) External Record Review External record reviewed: Outpatient record ([facility] records as noted in the [facility] Rationale portion of this note.) and Outside ED record ([facility] records as noted in the [facility] Rationale portion of this note.) Tests considered The following testing was considered but not selected: I considered getting a CT abdomen/pelvis however, the patient had one performed on 02/19/2024 that was normal and there was no change in the patient's symptoms. Discharge Plan Discharge Clinical Impression: Chronic abdominal pain Patient Disposition: Home, Self-Care Instructions: Chronic Pain (ED), Abdominal Pain (ED) Additional Instructions: Follow up with your primary care provider and a pain specialist. Return to the emergency department immediately if your symptoms worsen or if you develop any dizziness, shortness of breath, difficulty breathing, chest pain, blurry vision, loss of vision, nausea, vomiting, abdominal pain, fever, chills, back pain, or any other complaints. Prescriptions: No Action phenazopyridine [Pyridium] 200 mg tablet 200 mg PO TID PRN (Reason: urinary burning) Qty: 20 1RF Rx Instructions: use with food levofloxacin 250 mg tablet 250 mg PO DAILY Qty: 3 0RF albuterol sulfate [ProAir HFA] 90 mcg/actuation Hfa Aerosol Inhaler 2 puff INHALATION Q4-6H PRN (Reason: Shortness Of Breath) trazodone 50 mg tablet 50 mg PO BEDTIME oxycodone 5 mg tablet 5 mg PO Q6H PRN (Reason: pain) Qty: 5 0RF Rx Instructions: Partial Fill upon patient request. adalimumab 40 mg/0.4 mL pen injector kit 40 mg subcut .Q 14 DAYS metoprolol succinate 25 mg tablet extended release 24 hr 12.5 mg PO DAILY clonazepam 1 mg tablet 1 mg PO BEDTIME omeprazole 20 mg capsule,delayed release(DR/EC) 20 mg PO DAILY ondansetron 4 mg tablet,disintegrating 4 mg PO BID PRN (Reason: nausea/vomiting) oxybutynin chloride 5 mg tablet extended release 24hr 5 mg PO DAILY 30 Days Qty: 30 1RF oxycodone 5 mg tablet 5 mg PO Q12H PRN (Reason: pain) 30 Days Qty: 20 0RF Rx Instructions: Partial Fill upon patient request. Referrals: [facility] Pain [facility] [Provider Group] (Call to establish and follow up with a pain specialist. ) Brett Su MD [Primary Care Provider] - Interventions: ED Discharge Assessment Last Done: 02/23/24 17:00 Discharge Date/Time: 02/23/24 17:10 Print Language: Andorran
[2024-02-23 15:10] VITALS: BP 117/61; PULSE 77; RESP 18; O2SAT 96; BMI 17.5
[2024-02-23 15:45] VITALS: BP 122/68; PULSE 77; RESP 18; TEMP 36.6; O2SAT 97
[2024-02-23 16:07] VITALS: RESP 18
[2024-02-23 16:07] LABS: Appearance Urine Clear; Color Urine Yellow; Glucose Urine UA Negative (Negative); Leukocyte Esterase Urine Negative (Negative); Nitrite Urine Negative (Negative); Specific Gravity - Urine <= 1.005 (1.005-1.025); Urine Blood Negative (Negative); Urine Ketones Negative (Negative); Urine Protein Negative (Neg-Trace)
[2024-02-23] MEDS: HYDROmorphone HCl 1 MG/ML SYRINGE 0.5 MG IVPUSH (16:07)
[2024-02-23] MEDS: ondansetron HCL 4 MG/2 ML VIAL IVPUSH (16:07)
[2024-02-23] MEDS: LORazepam 2 MG/ML VIAL 1 MG IVPUSH (16:08)
[2024-02-23] MEDS: 0.9 % Sodium Chloride 1,000 ML 999 ML IV (16:15)
[2024-02-23 16:27] LABS: MANUAL DIFF FLAG NO
[2024-02-23 16:29] LABS: Basophils Percent Auto 0.5 % (0-2); Eosinophils Percent Auto 0.3 % (0-4); Hematocrit 25.9 % (37.0-47.0); Hemoglobin 8.5 g/dl (12.0-16.0); Imm Gran Abs Auto 0.02 X10*3/uL (0.00-0.03); Imm Gran Pct Auto 0.3 % (0.0-0.4); Lymphocytes Absolute Auto 2.3 X10*3/uL (1.2-4.9); Lymphocytes Percent Auto 36.4 % (20-40); Mean Corpuscular HGB Conc 32.8 g/dl (31.0-35.0); Mean Corpuscular Hemoglobin 24.6 pg (27.0-33.0); Mean Corpuscular Volume 75.1 fL (80.0-98.0); Mean Platelet Volume 9.4 fL (9.4-12.3); Monocytes Absolute Auto 0.6 X10*3/uL (0.1-1.2); Neutrophils Absolute Auto 3.3 x10*3/uL (2.0-8.3); Neutrophils Percent Auto 53.5 % (45-73); Platelet Count 215 X10*3/uL (160-400); Red Blood Count 3.45 X10*6/uL (4.20-5.50); Red Cell Distribution Width 17.4 % (11.0-16.0); White Blood Count 6.2 X10*3/uL (4.8-10.8)
[2024-02-23 16:52] LABS: Alanine Aminotransferase 18 U/L (0-31); Albumin Level 3.2 g/dL (3.5-5.0); Alkaline Phosphatase 124 U/L (39-117); Anion Gap 8 (12-20); Aspartate Amino Transferase 21 U/L (5-31); Bilirubin Total 0.3 mg/dL (0.0-1.0); Blood Urea Nitrogen 13 mg/dL (9-16); Calcium 9.1 mg/dL (8.4-10.2); Carbon Dioxide 29 mmol/L (22-29); Chloride 106 mmol/L (96-108); Creatinine Clr Calc Pharmacy 58.3; Estimated Glomerular Filt Rate > 60; Glucose Random 89 mg/dL (60-115); Magnesium 1.7 mg/dL (1.6-2.6); Potassium 3.5 mmol/L (3.3-5.1); Sodium 139 mmol/L (135-145)
[2024-02-23 17:00] VITALS: BP 121/72; PULSE 69; RESP 18; TEMP 36.7; O2SAT 97
--- NOTE | 2024-02-23 17:09 | PC.NURSE ---
patient aaxo3 speaking clear full sentences. ambulates with slow but steady gait to bathroom and then to wheelchair to wait in triage for fiance pickup. Pt acknowledges d/c instructions and follow up care plan. RFA IV d/c dsd applied. pain 4/10 and pt reports feeling better after medications.
== END 2024-02-23 17:10 | disposition home or self-care (01) ==
PROVIDERS: Physician Assistant Medical; Emergency Provider Emergency Medicine Emergency Medical Services; PCP Internal Medicine
DX: R10.9 Unspecified abdominal pain (principal); K51.90 Ulcerative colitis, unspecified, without complications; D63.8 Anemia in other chronic diseases classified elsewhere; J45.909 Unspecified asthma, uncomplicated; Z93.3 Colostomy status; Z79.899 Other long term (current) drug therapy
CPT/HCPCS: 36415; 80053; 81003; 83735; 85025; 96374; 96375; 99283; 99284; J1170; J2060; J2405

== ENCOUNTER 2024-03-04 15:06 | Emergency (ER) | payer OTHER, SELFPAY ==
[2024-03-04 15:19] VITALS: BP 128/76; PULSE 77; O2SAT 100
[2024-03-04 15:29] VITALS: BP 119/60; PULSE 68; RESP 16; TEMP 36.7; O2SAT 98; BMI 18.6
[2024-03-04 15:32] VITALS: RESP 16
--- NOTE | 2024-03-04 16:27 | ED.FEMALEGU ---
HPI - Female Genitourinary General Chief complaint: Urogenital-Female Stated complaint: LOW ABD/BLADDER PAIN PER EMS Time Seen by Provider: 03/04/24 16:24 Source: patient Mode of arrival: ambulatory Limitations: no limitations History of Present Illness ED Provider: nga GIBBONS Narrative: Patient's history of interstitial cystitis been followed by urologist does get blurry distention every 3 months comes here as she is due for the procedure and having cramps patient received oxycodone by Dr. Cornelius which she will get next week was given fentanyl by EMS feeling much better at this time no fever no chills Related Data Home Medications ?Medication ?Instructions ?Recorded ?Confirmed albuterol sulfate 90 mcg/actuation 2 puff inhalation Q4-6H PRN 04/25/20 12/14/23 aerosol inhaler (ProAir HFA) Shortness Of Breath adalimumab 40 mg/0.4 mL 40 mg subcut .Q 14 DAYS 06/21/20 12/14/23 subcutaneous pen kit clonazepam 1 mg tablet 1 mg PO BEDTIME 08/08/21 12/14/23 metoprolol succinate 25 mg 12.5 mg PO DAILY 08/08/21 12/14/23 tablet,extended release 24 hr omeprazole 20 mg capsule,delayed 20 mg PO DAILY 11/03/21 12/14/23 release ondansetron 4 mg disintegrating 4 mg PO BID PRN nausea/vomiting 11/17/22 12/14/23 tablet trazodone 50 mg tablet 50 mg PO BEDTIME 10/15/23 12/14/23 Previous Rx's ?Medication ?Instructions ?Recorded levofloxacin 250 mg tablet 250 mg PO DAILY #3 tabs 01/29/24 phenazopyridine 200 mg tablet 200 mg PO TID PRN urinary burning 01/29/24 (Pyridium) #20 tabs oxybutynin chloride 5 mg 5 mg PO DAILY 30 days #30 tabs 02/01/24 tablet,extended release 24 hr oxycodone 5 mg tablet 5 mg PO Q8H PRN pain 7 days #12 02/25/24 tabs oxycodone 5 mg tablet 5 mg PO BID PRN pain #14 tabs 03/04/24 Allergies Allergy/AdvReac Type Severity Reaction Status Date / Time amoxicillin [From AUGMENTIN] Allergy Severe SEVERE Verified 03/04/24 15:31 DIARRHEA Jevfpie-HTQ-JiK Reductase Allergy Intermediate muscle Verified 03/04/24 15:31 Inhibitor aches, [[id number] REDUCTASE cramps INHIBITOR] acetaminophen [ACETAMINOPHEN] AdvReac Severe GI upset. Verified 03/04/24 15:31 Pt confirmed NOT allergic to oxycodone NSAIDS (Non-Steroidal AdvReac Severe Gastrointestinal Verified 03/04/24 15:31 Anti-Inflamma Upset Review of Systems Review of Systems: Yes all other systems are reviewed and are negative PMFSH Past Medical History Medical History Colostomy in place Recent bereavement On beta morgan at home Anxiety SVT (supraventricular tachycardia) Depression Lab test negative for COVID-19 virus Back pain History of gastrostomy tube placement Hx of ulcerative colitis Hx of cystitis History of anxiety Asthma Elevated cholesterol Surgical History History of tubal ligation History of endometrial ablation History of bladder surgery Social History Social History Household Members: Significant Other Housing: Apartment Are you a primary spiritual care coordinator to a significant other at home: No Do you presently have visiting nurse or other home services: Yes ([facility] 1 x week) Alcohol intake: former Patient Tobacco Use Status: Current everyday Tobacco user Tobacco use type: Cigarette Cigarettes Per Day: 4 Years Smoked: 22 Smoked in Last 30 Days: Yes Use of substances other than those prescribed or required for medical reasons: No Advance Directives: No Advance Directives Information Provided: No Do you have a plan to hurt others: No Plan Current occupational status: disabled Physical Exam Vital Signs: Vital Signs: Last Vital Signs Temp 98.0 F 03/04/24 17:43 Pulse 68 03/04/24 17:43 Resp 16 03/04/24 17:43 BP 119/60 03/04/24 17:43 Pulse Ox 98 03/04/24 17:43 O2 Del Method Room Air 03/04/24 17:43 BMI result Body Mass Index 18.6 Appearance: Alert. Oriented X3. No acute distress. Anxious Eyes: PERRLA, No Nystagmus ENT: Pharynx normal. Oral Mucosa moist Neck: Normal inspection. Neck supple. CVS: Normal heart rate and rhythm. Pulses normal. Respiratory: No respiratory distress. Equal air entry bilateral, no wheezing/rales/rhonchi Abdomen: Soft and mild suprapubic discomfort Bowel sounds are present, no mass palpable, no CVA tenderness Skin: Skin warm and dry. Normal skin color. Normal skin turgor. Extremities: No lower extremity edema. No calf tenderness Neuro: Oriented X 3. Medications Administered Discontinued Medications Generic Name Dose Route Start Last Admin Trade Name Freq PRN Reason Stop Dose Admin Oxycodone HCl 5 mg 03/04/24 16:59 03/04/24 17:10 Oxycodone Hcl Immed Release 5 Mg Tablet PO 03/04/24 17:00 5 mg ONCE ONE Administration Medical Decision Making Medical Decision Making [facility] Narrative: Patient has interstitial cystitis with bladder spasm discharge patient home on oxycodone advised to follow with urologist as scheduled patient has just had the labs last week which was stable Discharge Plan Discharge Clinical Impression: Interstitial cystitis Patient Disposition: Home, Self-Care Instructions: Interstitial Cystitis (ED) Additional Instructions: Drink plenty of fluids Oxycodone for pain Follow with Dr. Cornelius next week as scheduled Prescriptions: New oxycodone 5 mg tablet 5 mg PO BID PRN (Reason: pain) Qty: 14 0RF Rx Instructions: Partial Fill upon patient request. No Action phenazopyridine [Pyridium] 200 mg tablet 200 mg PO TID PRN (Reason: urinary burning) Qty: 20 1RF Rx Instructions: use with food levofloxacin 250 mg tablet 250 mg PO DAILY Qty: 3 0RF oxycodone 5 mg tablet 5 mg PO Q8H PRN (Reason: pain) 7 Days Qty: 12 0RF Rx Instructions: Partial Fill upon patient request. albuterol sulfate [ProAir HFA] 90 mcg/actuation Hfa Aerosol Inhaler 2 puff INHALATION Q4-6H PRN (Reason: Shortness Of Breath) trazodone 50 mg tablet 50 mg PO BEDTIME adalimumab 40 mg/0.4 mL pen injector kit 40 mg subcut .Q 14 DAYS metoprolol succinate 25 mg tablet extended release 24 hr 12.5 mg PO DAILY clonazepam 1 mg tablet 1 mg PO BEDTIME omeprazole 20 mg capsule,delayed release(DR/EC) 20 mg PO DAILY ondansetron 4 mg tablet,disintegrating 4 mg PO BID PRN (Reason: nausea/vomiting) oxybutynin chloride 5 mg tablet extended release 24hr 5 mg PO DAILY 30 Days Qty: 30 1RF Interventions: ED Discharge Assessment Last Done: 03/04/24 17:43 Discharge Date/Time: 03/04/24 17:45 Print Language: Luxembourgish
[2024-03-04] MEDS: oxyCODONE HCl Immed Release 5 MG TABLET PO (17:10)
[2024-03-04 17:43] VITALS: BP 119/60; PULSE 68; RESP 16; TEMP 36.7; O2SAT 98
== END 2024-03-04 17:45 | disposition home or self-care (01) ==
PROVIDERS: Emergency Provider Internal Medicine; PCP Internal Medicine
DX: N30.10 Interstitial cystitis (chronic) without hematuria (principal); R10.30 Lower abdominal pain, unspecified; Z93.3 Colostomy status
CPT/HCPCS: 99283; 99284

== ENCOUNTER 2024-03-13 09:48 | Day surgery (SDC) | payer OTHER, SELFPAY ==
[2024-03-09 13:53] VITALS: BMI 18.3
--- NOTE | 2024-03-10 12:35 | P.CONAN_ITS ---
Documented by User: Maureen Boyd NP 03/10/24 12:38 HPI - Anesthesia Eval Consult details Narrative: 59yo F for Cystoscopy Hydrodistention of Bladder s/p same 12/2023 with GA-LMA 4 Ostomy in situ PMFSH Active Problems Active Problems: All Active Problems Urinary urgency (Acute) Bladder pain (Acute) Fracture of fifth metatarsal bone of left foot (Acute) Bladder spasm (Acute) Interstitial cystitis (Acute) Past Medical History Medical History Colostomy in place On beta morgan at home Anxiety SVT (supraventricular tachycardia) Depression Back pain History of gastrostomy tube placement Hx of ulcerative colitis Hx of cystitis History of anxiety Asthma Elevated cholesterol Family History Family history of problems with anesthesia: No Surgical History Surgical History History of tubal ligation History of endometrial ablation History of bladder surgery History of Problems with Anesthesia: No Social History Social History Household Members: Significant Other Housing: Apartment Are you a primary career and guidance counselor to a significant other at home: No Do you presently have visiting nurse or other home services: No Alcohol intake: former Patient Tobacco Use Status: Current everyday Tobacco user Tobacco use type: Cigarette Cigarettes Per Day: 4 Years Smoked: 22 Smoked in Last 30 Days: Yes Patient Interested in Nicotine Replacement: No Have you been hit, kicked, punched, or otherwise hurt by someone within the past year? If so, by whom?: No Are you DNR?: No Advance Directives: No Advance Directives Information Provided: Yes Recently lost weight without trying: Yes How much weight loss: 2-13 pounds Eating poorly because of decreased appetite: No Nutrition screen score: 3 Current occupational status: disabled Meds Allergies Allergy/AdvReac Type Severity Reaction Status Date / Time amoxicillin [From AUGMENTIN] Allergy Severe SEVERE Verified 03/13/24 10:49 DIARRHEA Zaatghe-KJN-WyK Reductase Allergy Intermediate muscle Verified 03/13/24 10:49 Inhibitor aches, [[id number] REDUCTASE cramps INHIBITOR] acetaminophen [ACETAMINOPHEN] AdvReac Severe GI upset. Verified 03/13/24 10:49 Pt confirmed NOT allergic to oxycodone NSAIDS (Non-Steroidal AdvReac Severe Gastrointestinal Verified 03/13/24 10:49 Anti-Inflamma Upset Home Medications ?Medication ?Instructions ?Recorded ?Confirmed ?Last Taken ?Type albuterol sulfate 90 mcg/actuation 2 puff inhalation Q4-6H PRN 04/25/20 03/09/24 04/13/22 History aerosol inhaler (ProAir HFA) Shortness Of Breath adalimumab 40 mg/0.4 mL 40 mg subcut .Q 14 DAYS 06/21/20 03/09/24 Unknown History subcutaneous pen kit clonazepam 1 mg tablet 1 mg PO BEDTIME 08/08/21 03/09/24 Unknown History metoprolol succinate 25 mg 12.5 mg PO DAILY 08/08/21 03/09/24 03/13/24 History tablet,extended release 24 hr omeprazole 20 mg capsule,delayed 20 mg PO DAILY 11/03/21 03/09/24 03/13/24 History release ondansetron 4 mg disintegrating 4 mg PO BID PRN nausea/vomiting 11/17/22 03/09/24 Unknown History tablet trazodone 50 mg tablet 50 mg PO BEDTIME 10/15/23 03/09/24 Unknown History sertraline 25 mg tablet 25 mg PO DAILY 03/13/24 03/13/24 03/13/24 History Exam Height,Weight and Vital Signs: Height 5 ft 5 in Weight 49.895 kg Assessment and Plan Assessment Anesthesia Assessment: Chart Reviewed Final Anesthetic Review Family History of Problems with Anesthesia: No History of Problems with Anesthesia: No Documented by User: Nikunj Griffin MD 03/13/24 11:54 [facility] Past Medical History Medical History Colostomy in place On beta morgan at home Anxiety SVT (supraventricular tachycardia) Depression Back pain History of gastrostomy tube placement Hx of ulcerative colitis Hx of cystitis History of anxiety Asthma Elevated cholesterol Surgical History Surgical History History of tubal ligation History of endometrial ablation History of bladder surgery Social History Social History Household Members: Significant Other Housing: Apartment Are you a primary career and guidance counselor to a significant other at home: No Do you presently have visiting nurse or other home services: No Alcohol intake: former Patient Tobacco Use Status: Current everyday Tobacco user Tobacco use type: Cigarette Cigarettes Per Day: 4 Years Smoked: 22 Smoked in Last 30 Days: Yes Patient Interested in Nicotine Replacement: No Have you been hit, kicked, punched, or otherwise hurt by someone within the past year? If so, by whom?: No Are you DNR?: No Advance Directives: No Advance Directives Information Provided: Yes Recently lost weight without trying: Yes How much weight loss: 2-13 pounds Eating poorly because of decreased appetite: No Nutrition screen score: 3 Current occupational status: disabled Meds Allergies Allergy/AdvReac Type Severity Reaction Status Date / Time amoxicillin [From AUGMENTIN] Allergy Severe SEVERE Verified 03/13/24 10:49 DIARRHEA Rtltznm-ESI-UyE Reductase Allergy Intermediate muscle Verified 03/13/24 10:49 Inhibitor aches, [[id number] REDUCTASE cramps INHIBITOR] acetaminophen [ACETAMINOPHEN] AdvReac Severe GI upset. Verified 03/13/24 10:49 Pt confirmed NOT allergic to oxycodone NSAIDS (Non-Steroidal AdvReac Severe Gastrointestinal Verified 03/13/24 10:49 Anti-Inflamma Upset Home Medications ?Medication ?Instructions ?Recorded ?Confirmed ?Last Taken ?Type albuterol sulfate 90 mcg/actuation 2 puff inhalation Q4-6H PRN 04/25/20 03/09/24 04/13/22 History aerosol inhaler (ProAir HFA) Shortness Of Breath adalimumab 40 mg/0.4 mL 40 mg subcut .Q 14 DAYS 06/21/20 03/09/24 Unknown History subcutaneous pen kit clonazepam 1 mg tablet 1 mg PO BEDTIME 08/08/21 03/09/24 Unknown History metoprolol succinate 25 mg 12.5 mg PO DAILY 08/08/21 03/09/24 03/13/24 History tablet,extended release 24 hr omeprazole 20 mg capsule,delayed 20 mg PO DAILY 11/03/21 03/09/24 03/13/24 History release ondansetron 4 mg disintegrating 4 mg PO BID PRN nausea/vomiting 11/17/22 03/09/24 Unknown History tablet trazodone 50 mg tablet 50 mg PO BEDTIME 10/15/23 03/09/24 Unknown History sertraline 25 mg tablet 25 mg PO DAILY 03/13/24 03/13/24 03/13/24 History Exam Airway Mallampati Class: I TM Dist: >3cm Neck ROM: Full Loose/Missing/Broken Teeth: No Heart: ok Lungs: ok Assessment and Plan Assessment Anesthesia Assessment: Anesthesia Plan Discussed Final Anesthetic Review NPO: Yes ASA Class: III Final Preanesthetic Review: No Changes in Pt Med Stat, Meds/Allgs Chart Rev iewed, Consent Obtained/Reviewed and Anes Risks/Benef Reviewed Patient Risk: Intermediate Procedure Risk: Low Anesthetic Plan Anesthetic Plan: GA and Agree w/ Assess. and Plan Disposition: Standard PACU
[2024-03-13] VITALS (12 sets, daily range): BP systolic 122–139; BP diastolic 42–79; PULSE 58–80; RESP 16–18; TEMP 36.3–36.7; O2SAT 97–100; BMI 17.6
--- NOTE | 2024-03-13 10:25 | PC.NURSE ---
patient states has appt. with pcp on Wednesday to discuss weight loss concerns with a good appetite per pt.
[2024-03-13] MEDS: Lactated Ringers 1,000 ML 100 ML IVCONT (10:26)
--- NOTE | 2024-03-13 11:52 | MHC.SHP ---
Pre-Procedural Eval Section A - 24 Hr Update-Section A only Date of Service: 03/13/24 The patient is an INPATIENT: No Changes since office visit: No Cold of Flu in the past 2 weeks, No New Medical Problems, No Changes in Medication and No Patient answered all questions The patient has been examined within 24 hours of the surgical procedure. The History & Physical has been completed within 30 days and I have reviewed it.: No Section B - Complete if H&P > 30 days Chief Complaint: Interstitial cystitis (chronic) without hematuria Details of Present Illness: Chronic interstitial cystitis. Benefits from hydrodistention. Last hydrodistention 8 weeks ago. Had called with persistent pain. Plan for hydrodistention. Relevant Family History (Specify if Yes): No Relevant Social History: None Present Medications: see Short Stay Collaborative assessment Medical History: Significant History History of Previous Operations: Relevant previous surgery/procedure and date(s) Allergies: Allergies Allergy/AdvReac Type Severity Reaction Status Date / Time amoxicillin [From AUGMENTIN] Allergy Severe SEVERE Verified 03/13/24 10:49 DIARRHEA Kwjmafp-PKM-MiY Reductase Allergy Intermediate muscle Verified 03/13/24 10:49 Inhibitor aches, [LPLZPXP-[id number]-WKE REDUCTASE cramps INHIBITOR] acetaminophen [ACETAMINOPHEN] AdvReac Severe GI upset. Verified 03/13/24 10:49 Pt confirmed NOT allergic to oxycodone NSAIDS (Non-Steroidal AdvReac Severe Gastrointestinal Verified 03/13/24 10:49 Anti-Inflamma Upset Review of Systems Sugical H&P ROS: Negative: Constitution, Cardiovascular, Respiratory, Neurological, Psychiatric, Hem-Onc, Allergic/Immunologic, Gastrointestinal, Genitourinary, Musculoskeletal, Integumentary, Endocrine and Eyes/Ears/Nose/Throat Exam Surgical H&P Exam: Normal: HEENT, Normal: Heart, Normal: Lungs, Normal: Extremities, Normal: Abdomen, Normal: Skin and Normal: Neurological Plan Diagnosis/Plan: Unchanged (Plan for hydrodistention. Did discuss potentially doing Botox with hydrodistention in May.) I have reviewed the history and physical and performed a pertinent physical examination on my patient. No changes have occurred unless specified. Time Spent With Patient Time: Total time managing care of this patient today ____ minutes.
[2024-03-13] MEDS: levoFLOXacin 500 MG TABLET PO (11:57)
--- NOTE | 2024-03-13 12:27 | P.OP_ITS ---
Operative Note Operative Note Date of Service: 03/13/24 Narrative: PreOperative Diagnosis:? Interstitial cystitis with pelvic pain Post Operative Diagnosis:? Interstitial cystitis with pelvic pain Procedure:? Hydrodistention Surgeon: Dr Mk Cornelius Anesthesia:? General Indications for procedure: ?interstitial cystitis Procedure: After informed consent was verified the patient was brought to the operating room and placed in a supine position.? Anesthesia was administered per protocol.? The patient was placed in a modified dorsal lithotomy position and prepped and draped in sterile fashion.? Safety pause time-out was observed.? Antibiotics being given. A 22 [place]ian cystoscope was used to empty the bladder.? A mixture of bupivacaine lidocaine gel 20 cc was instilled into the bladder and allowed to sit for 2-3 minutes Hydrodistention of the bladder was performed.? The bladder was filled and allowed to sit for 3 minutes.? Filling was from a height of 1 m. Cystoscopy revealed glomerulations and collagenization consistent with interstitial cystitis. Second filling of the bladder was performed in similar fashion.? Terminal hematuria noted. A mixture of bupivacaine lidocaine gel 20 cc was instilled into the bladder. Instilled volume was 800cc x2 The the bladder was emptied.? The patient tolerated procedure well was extubated in operating room transferred in stable condition to the recovery area.? Appropriate postprocedure pain medication was provided.
[2024-03-13] MEDS: oxyCODONE HCl Immed Release 5 MG TABLET PO (13:10)
[2024-03-13] MEDS: Phenazopyridine HCL 100 MG TABLET PO (13:10)
[2024-03-13] MEDS: Acetaminophen 325 MG TABLET 650 MG PO (13:10)
[2024-03-13] MEDS: fentaNYL citrate/PF 100 MCG/2 ML VIAL 50 MCG IVPUSH ×3 (13:10→14:13)
== END 2024-03-13 15:21 | disposition home or self-care (01) ==
PROVIDERS: PCP Internal Medicine; Visit Provider Urology
PROC: 0T7B7ZZ Dilation of Bladder, Via Natural or Artificial Opening (ICD-10-PCS; CPT 52260; principal; 2024-03-13 13:30)
DX: N30.10 Interstitial cystitis (chronic) without hematuria (principal); N32.89 Other specified disorders of bladder; R10.2 Pelvic and perineal pain; E78.00 Pure hypercholesterolemia, unspecified; F41.9 Anxiety disorder, unspecified; J45.909 Unspecified asthma, uncomplicated; Z93.3 Colostomy status; Z79.899 Other long term (current) drug therapy; Z88.1 Allergy status to other antibiotic agents; Z88.8 Allergy status to other drugs, medicaments and biological substances; Z88.6 Allergy status to analgesic agent; Z99.89 Dependence on other enabling machines and devices; F17.210 Nicotine dependence, cigarettes, uncomplicated
CPT/HCPCS: 52260; J2250; J2704; J3010

== ENCOUNTER → 2024-03-13 09:48 | Outpatient (BNV) | payer OTHER, SELFPAY | PROVIDERS: PCP Internal Medicine; Visit Provider Urology | DX: N30.10 Interstitial cystitis (chronic) without hematuria (principal) | CPT/HCPCS: 52260 ==

== ENCOUNTER 2024-03-21 14:13 | Outpatient (AMB) | payer OTHER, SELFPAY ==
--- NOTE | 2024-03-21 14:49 | MHC.OFFVIS ---
Intake Visit Reasons: follow up- discuss procedure Intake Note: Patient is Present for Follow Up discussion on procedure Urology Medication:Oxybutynin Antibiotic Allergies:Amoxicillin, Blood Thinners: None Electron Gun Assembler Required: No Chief Dispatcher: Chief Dispatcher Present Accompanied by: Other Relationship Allergies amoxicillin [From AUGMENTIN] Allergy (Severe, Verified 05/21/24 12:13) SEVERE DIARRHEA Xhxqsrn-UQY-CwY Reductase Inhibitor [[id number]-[id number] REDUCTASE INHIBITOR] Allergy (Intermediate, Verified 05/21/24 12:13) muscle aches, cramps acetaminophen [ACETAMINOPHEN] Adverse Reaction (Severe, Verified 05/21/24 12:13) GI upset. Pt confirmed NOT allergic to oxycodone NSAIDS (Non-Steroidal Anti-Inflamma Adverse Reaction (Severe, Verified 05/21/24 12:13) Gastrointestinal Upset HPI Comments Details: Randi is a pleasant female. She is a patient of Dr. Su. she seen for the following urologic conditions - interstitial cystitis Telemedicine evaluation 15 minute consultation Video attempted Doximity edd Recurrent interstitial cystitis Discussion regarding hydrodistention Completed every 8-12 weeks Also needs referral to PT for pelvic floor physical therapy Interstitial cystitis Patient with interstitial cystitis and bladder pain which responded to therapeutic hydrodistention Last hydrodistention - Apr 2023 Was previously on every 3 month schedule but over the last year had been doing every 2 months Would like to have another cystoscopy - hydrodistention done risks benefits potential complications morbidity mortality reviewed all questions answered informed consent obtained [facility] Medical History Colostomy in place On beta morgan at home Anxiety SVT (supraventricular tachycardia) Depression Back pain History of gastrostomy tube placement Hx of ulcerative colitis Hx of cystitis History of anxiety Asthma Elevated cholesterol Surgical History History of tubal ligation History of endometrial ablation History of bladder surgery Social History Household Members: Significant Other Housing: Apartment Are you a primary resident caregiver to a significant other at home: No Do you presently have visiting nurse or other home services: No Alcohol intake: former Patient Tobacco Use Status: Current everyday Tobacco user Tobacco use type: Cigarette Cigarettes Per Day: 4 Years Smoked: 22 Smoked in Last 30 Days: No Advance Directives: No Advance Directives Information Provided: Yes Do you have a plan to hurt others: No Plan Current occupational status: disabled Review of Systems Const All systems reviewed & are unremarkable except as noted in HPI and below Reports no additional complaints Resp Reports no additional complaints GI Reports no additional complaints Reports as per HPI Musc Reports no additional complaints Physical Exam Telemedicine evaluation Appropriate responses Regular breathing rate and rhythm HEENT Head: Yes normal to inspection Ears: hearing grossly normal bilaterally Eyes General: appearance normal, both eyes and all related structures Neck Neck: Yes normal visual inspection Chest Chest palpation & inspection: normal inspection of the chest Resp Effort & Inspection: normal respiratory effort and able to speak in complete sentences Telehealth Telehealth Telehealth Platform: [employer] Location of provider rendering services: practice address Location of patient: address on file Patient Identification confirmed using: Name, : Yes Telehealth method: video Patient verbally consented to treatment: Yes Patient verbally consented to billing insurance company: Yes Patient informed of any privacy concerns related to visit: Yes Minutes spent on Phone/Video with Pt.: 15 Assessment & Plan Assessment & Plan (1) Pelvic floor dysfunction in female: Code(s): M62.89 - Other specified disorders of muscle Category: Medical Plan She is willing to undergo pelvic floor physical therapy for persistent pelvic floor dysfunction To be scheduled Orders: Orders PT Evaluation and Treatment 03/21/24 R10.2 - Pelvic and perineal pain, M62.89 - Other specified disorders of muscle Patient Instructions: Imaging studies, laboratory and physical exam results were discussed and reviewed in detail. No major barriers to patient understanding were identified. An opportunity to ask questions regarding the treatment plan was provided. All questions were answered. The patient expressed understanding and agreement with the above treatment plan. The patient is aware they should contact our office by phone for worsening of their current condition or the appearance of new urologic symptoms. Compliance is encouraged with any medications and followup testing that is ordered. It is a privilege to participate in the urologic care of your patient. If you have any questions or concerns regarding treatment for the above conditions, or other urologic issues, please do not hesitate to contact me. The office telephone contact is [phone]. This note is constructed using voice recognition software. While every effort has been made to ensure accuracy wind plant manager errors may have been included. Yours sincerely, Dr Mk Cornelius MD, [facility] - Urology Providers of Expert, Compassionate Care for the Genitourinary System Coding Level of Care Code Tele Est Pt Level 3 (45851) Diagnoses Pelvic floor dysfunction in female M62.89
== END 2024-03-21 16:36 | disposition home or self-care (01) ==
PROVIDERS: PCP Internal Medicine; Visit Provider Urology
DX: M62.89 Other specified disorders of muscle (principal)
CPT/HCPCS: 99213

== ENCOUNTER → 2024-03-21 14:13 | Outpatient (BNVA) | payer OTHER, SELFPAY | PROVIDERS: PCP Internal Medicine; Visit Provider Urology ==

== ENCOUNTER 2024-03-24 12:21 | Emergency (ER) | payer OTHER, SELFPAY ==
--- NOTE | 2024-03-24 12:36 | ED_ITS ---
HPI - Female Genitourinary General Chief complaint: Urogenital-Female Stated complaint: Pelvic pain Time Seen by Provider: 03/24/24 14:42 Source: patient, RN notes reviewed and old records reviewed Mode of arrival: ambulatory Limitations: no limitations History of Present Illness ED Provider: STAN GRAY PA-C HPI Narrative: 59-year-old female with pmhx significant for anemia of chronic disease, anxiety, asthma, C diff, depression, fibromyalgia, hyperlipidemia, IBS, SVT, ulcerative colitis, right-sided colostomy presents to the ED today for evaluation of continued pelvic pain x2 weeks. She states her pain is due to torn muscle on the pelvic wall . Patient was initially evaluated for this at [facility] on 03/04/24, advised to follow up with urology out patient. She has since followed up with Dr. Cornelius who diagnosed her with pelvic floor dysfunction and provided her with a referral for pelvic PT. Patient states she has not yet received a call to schedule this. She states he also prescribed her oxycodone which she ran out of yesterday. States she has been taking this as prescribed. She tells me that her pain improves with oxycodone however she took her last dose of this last night and has not taken any pain medication today. She tells me that her pain is the same as it was at onset, not worsening. She states that she has been attempting to contact the urologist office however has not been able to get a hold of anyone, prompting her to come to the ED. also reports feeling anxious and states that she did not take her Ativan today. Requesting a dose in the ED. Denies fever, chills, abdominal pain, vaginal bleeding, flank pain, vomiting, dysuria, hematuria. Related Data Home Medications ?Medication ?Instructions ?Recorded ?Confirmed albuterol sulfate 90 mcg/actuation 2 puff inhalation Q4-6H PRN 04/25/20 03/09/24 aerosol inhaler (ProAir HFA) Shortness Of Breath adalimumab 40 mg/0.4 mL 40 mg subcut .Q 14 DAYS 06/21/20 03/09/24 subcutaneous pen kit clonazepam 1 mg tablet 1 mg PO BEDTIME 08/08/21 03/09/24 metoprolol succinate 25 mg 12.5 mg PO DAILY 08/08/21 03/09/24 tablet,extended release 24 hr omeprazole 20 mg capsule,delayed 20 mg PO DAILY 11/03/21 03/09/24 release ondansetron 4 mg disintegrating 4 mg PO BID PRN nausea/vomiting 11/17/22 03/09/24 tablet trazodone 50 mg tablet 50 mg PO BEDTIME 10/15/23 03/09/24 sertraline 25 mg tablet 25 mg PO DAILY 03/13/24 03/13/24 Previous Rx's ?Medication ?Instructions ?Recorded phenazopyridine 200 mg tablet 200 mg PO TID PRN urinary burning 01/29/24 (Pyridium) #20 tabs oxybutynin chloride 5 mg 5 mg PO DAILY 30 days #30 tabs 02/01/24 tablet,extended release 24 hr oxycodone 5 mg tablet 5 mg PO BID PRN pain 7 days #10 03/19/24 tabs oxycodone 5 mg tablet 5 mg PO Q8H PRN pain (scale score 03/24/24 4-6) #5 tabs Allergies Allergy/AdvReac Type Severity Reaction Status Date / Time amoxicillin [From AUGMENTIN] Allergy Severe SEVERE Verified 03/24/24 12:40 DIARRHEA Flwaanh-XGE-EyA Reductase Allergy Intermediate muscle Verified 03/24/24 12:40 Inhibitor aches, [[id number] REDUCTASE cramps INHIBITOR] acetaminophen [ACETAMINOPHEN] AdvReac Severe GI upset. Verified 03/24/24 12:40 Pt confirmed NOT allergic to oxycodone NSAIDS (Non-Steroidal AdvReac Severe Gastrointestinal Verified 03/24/24 12:40 Anti-Inflamma Upset Review of Systems 2 Review of Systems: Yes all other systems are reviewed and are negative [facility] Past Medical History Attestation statement: The following information was validated with the patient. Source: old records reviewed and nursing notes reviewed Medical History Colostomy in place On beta morgan at home Anxiety SVT (supraventricular tachycardia) Depression Back pain History of gastrostomy tube placement Hx of ulcerative colitis Hx of cystitis History of anxiety Asthma Elevated cholesterol Surgical History History of tubal ligation History of endometrial ablation History of bladder surgery Social History Social History Household Members: Significant Other Housing: Apartment Are you a primary senior care provider to a significant other at home: No Do you presently have visiting nurse or other home services: No Alcohol intake: former Patient Tobacco Use Status: Current everyday Tobacco user Tobacco use type: Cigarette Cigarettes Per Day: 4 Years Smoked: 22 Advance Directives: Yes Advance Directives Information Provided: Yes Advance Directives on File: No Current occupational status: disabled Physical Exam 2 Vital Signs: Vital Signs: Last Vital Signs Temp 98.2 F 03/24/24 16:20 Pulse 90 03/24/24 16:20 Resp 17 03/24/24 16:20 BP 108/59 L 03/24/24 16:20 Pulse Ox 100 03/24/24 16:20 O2 Del Method Room Air 03/24/24 16:20 BMI result Body Mass Index 17.8 Vital signs stable, afebrile. General: Anxious appearing, tremulous Skin: Warm, dry, intact. No rashes or lesions. Head: Normocephalic, atraumatic. Cardiac: Chest wall symmetric. RRR. Lungs: Normal respiratory effort without accessory muscle use. CTA bilaterally. Abdomen: Soft, non-tender, non-distended. No rebound tenderness or guarding. Positive BS x4. Pelvic exam deferred. No CVAT bilaterally. Back: No midline spinous or paraspinal tenderness. No step off deformity. Ext: Upper and lower extremities atraumatic, without tenderness, deformity, swelling or erythema. Full ROM throughout. Neuro: AOx3. Normal speech. Ambulating with steady gait. Psych: Appropriate mood and affect. Responds appropriately to questions. Course Course Course Narrative: This is an RME performed by Jemma Schumacher CNP: Additional HPI, ROS, PE not included below will be deferred to primary provider. Patient is a 59 year old female past medical history of anemia of chronic disease, anxiety, asthma, C difficile, depression, fibromyalgia, pain, hyperlipidemia, IBS, SVT, ulcerative colitis, right-sided colostomy who presents emergency department for evaluation of pelvic pain that is progressively worsening and becoming more severe, states it is due to a torn muscle on the pelvis wall diagnosed by her urologist Dr. Cornelius 2-3 days ago, reports that she was supposed to be prescribed a pain medication and a suppository which was never sent to her pharmacy. On review of her office visit note from 03/21/2024 I see an order for physical therapy evaluation and treatment for pelvic floor dysfunction, she underwent a cystoscopy with Dr. Cornelius 03/13/2024 with findings consistent with interstitial cystitis. She has received 2 prescriptions for oxycodone from Dr. Cornelius 03/11/2024 and 03/19/2024 (10 tablets for a 7 day supply per [facility]) Plan: serum labs, U/A Reevaluation(s) Reevaluation #1: Upon my initial entrance into patient's room, patient demanding an IV be placed for IV morphine and IV zofran. Upon interviewing patient, she tells me her pain has been well controlled at home with the oxycodone however she has since run out of this, likely the reason her pain has returned today. Given unchanged symptoms, otherwise feeling well, I do not feel as though imaging or pelvic exam is warranted at this time as patient has followed up with appropriate out patient specialists. I have offered PO oxycodone in ED along with sublingual zofran for nausea. Patient became very agitated upon hearing this, stating I need an IV with morphine . I do not feel as though IV placement for morphine is necessary at this time. Patient has been tolerating oxycodone 5 mg at home for pain control. > On review of [facility], patient was prescribed 20 tablets of oxycodone on 03/11/24 and another 10 tablets on 03/19/24 (5 days ago) by Dr. Cornelius. She was also prescribed 14 tabs of oxycodone on 03/04/24 by ED provider. > on review of work up, CBC without leukocytosis or left shift. Chronic microcytic anemia, H&H stable when compared to priors in above transfusion threshold. Chemistry without acute electrolyte abnormality requiring intervention. No MANUEL. Chronically elevated alk phos. Urine with moderate leukocyte esterase, 6-10 wbc, 6-10 squamous epithelial cells and trace bacteria. suspicion for contamination. will await urine culture for treatment of UTI. > advised patient to take motrin/ tylenol at home for pain/ discomfort. will send a few more tabs of oxy to pharmacy for pain control through the weekend. stressed the importance of following up with pelvic PT for more definitive treatment. Patient has remained stable throughout ED visit today. Discussed worrisome signs and symptoms and when to return to the ED. All questions answered at this time. Medications Administered Discontinued Medications Generic Name Dose Route Start Last Admin Trade Name Fallon PRN Reason Stop Dose Admin Lorazepam 1 mg 03/24/24 15:23 03/24/24 15:43 Lorazepam 1 Mg Tablet PO 03/24/24 15:24 1 mg ONCE ONE Administration Ondansetron HCl 4 mg 03/24/24 15:22 03/24/24 15:42 Ondansetron Odt 4 Mg Tab.Rapdis TRANSLINGU 03/24/24 15:23 4 mg ONCE ONE Administration Oxycodone HCl 5 mg 03/24/24 15:22 03/24/24 15:42 Oxycodone Hcl Immed Release 5 Mg Tablet PO 03/24/24 15:23 5 mg ONCE ONE Administration Medical Decision Making Medical Decision Making [facility] Narrative: 59-year-old female with pmhx significant for anemia of chronic disease, anxiety, asthma, C diff, depression, fibromyalgia, hyperlipidemia, IBS, SVT, ulcerative colitis, right-sided colostomy presents to the ED today for evaluation of continued pelvic pain x2 weeks. Plan for pain control, re-evaluation. Differential Diagnosis Differential Diagnoses: The differential diagnosis associated with the presentation includes as above. Admission/Observation not indicated. Lab Data [facility] Lab Attestation statement: I reviewed the patient's lab results. as above. 03/24/24 12:57 03/24/24 12:57 Labs: Lab Results 03/24/24 Range/Units 12:57 WBC 8.2 (4.8-10.8) X10*3/uL RBC 4.24 D (4.20-5.50) X10*6/uL Hgb 9.9 L (12.0-16.0) g/dl Hct 31.5 L D (37.0-47.0) % MCV 74.3 L (80.0-98.0) fL MCH 23.3 L (27.0-33.0) pg MCHC 31.4 (31.0-35.0) g/dl RDW 16.9 H (11.0-16.0) % Plt Count 264 (160-400) X10*3/uL MPV 9.4 (9.4-12.3) fL Immature Gran % (Auto) 0.2 (0.0-0.4) % Neut % (Auto) 65.0 (45-73) % Lymph % (Auto) 27.1 (20-40) % [place] % (Auto) 7.0 (2-11) % Eos % (Auto) 0.2 (0-4) % Baso % (Auto) 0.5 (0-2) % Lymph # (Auto) 2.2 (1.2-4.9) X10*3/uL [place] # (Auto) 0.6 (0.1-1.2) X10*3/uL Eos # (Auto) 0.0 (0.0-0.4) X10*3/uL Baso # (Auto) 0.0 (0.0-0.2) X10*3/uL Abs Immat Gran (auto) 0.02 (0.00-0.03) X10*3/uL Absolute Neuts (auto) 5.3 (2.0-8.3) x10*3/uL Absolute Nucleated RBC 0.000 (0.0-0.012) X10*3/uL Nucleated RBC % (auto) 0.0 (0.0-0.2) /100WBC Sodium 135 (135-145) mmol/L Potassium 3.9 (3.3-5.1) mmol/L Chloride 102 (96-108) mmol/L Carbon Dioxide 24 (22-29) mmol/L Anion Gap 13 (12-20) BUN 18 H (9-16) mg/dL Creatinine 0.81 (0.5-1.4) mg/dL Estim Creat Clear Calc 57.3 Estimated GFR > 60 Random Glucose 99 (60-115) mg/dL Calcium 10.1 D (8.4-10.2) mg/dL Total Bilirubin 0.2 (0.0-1.0) mg/dL AST 16 (5-31) U/L ALT 7 (0-31) U/L Alkaline Phosphatase 121 H (39-117) U/L Total Protein 7.5 (6.5-8.0) g/dL Albumin 4.0 (3.5-5.0) g/dL Lipase 27 (8-78) U/L Urine Color Yellow Urine Appearance Clear Urine pH 5.0 (5.0-9.0) Ur Specific [place] 1.015 (1.005-1.025) Urine Protein Negative (Neg-Trace) mg/dL Urine Glucose (UA) Negative (Negative) mg/dL Urine Ketones Negative (Negative) mg/dL Urine Blood Negative (Negative) Urine Nitrite Negative (Negative) Ur Leukocyte Esterase Moderate (2+) H (Negative) Urine RBC 0-2 (0-2) /HPF Urine WBC 6-10 H (0-5) /HPF Ur Squamous Epith Cells 6-10 (0-2) /HPF Urine Bacteria Trace (None Seen) Hyaline Casts 0-2 (0-2) /LPF External Record Review External record reviewed: Inpatient record, Office record, Outpatient record, Prior outpatient labs, Prior outpatient radiology, Primary care record and Outside ED record Prescription Management I considered prescription management with: Pain Medication Social Determinants Patient?s care significantly limited by Social Determinants of Health including: Other Social Determinant of Health Critical Care Time Critical Care Time Critical Care Time: No Discharge Plan Discharge Clinical Impression: Pelvic pain Patient Disposition: Home, Self-Care Instructions: Heat Pack Application (ED), Pelvic Pain (ED) Additional Instructions: You were seen in the ED today due to pelvic pain. Your work up today is reassuring. You were given a dose of oxycodone and ativan in ED. Continue home Oxycodone as prescribed for pain control. I recommend you take 600mg ibuprofen every 6 hours or Tylenol 650mg every 6 hours as needed for pain. If needed, you can alternate these medications so that you take one medication every 3 hours. For example, at noon take ibuprofen, then at 3pm take Tylenol, then at 6pm take ibuprofen. Please follow up with Dr. Cornelius regarding pelvic physical therapy. You may have to reach out to them in order to schedule an appointment. Return with new or worsening symptoms. In the case of an emergency call 911. Prescriptions: New oxycodone 5 mg tablet 5 mg PO Q8H PRN (Reason: pain (scale score 4-6)) Qty: 5 0RF Rx Instructions: Partial Fill upon patient request. No Action phenazopyridine [Pyridium] 200 mg tablet 200 mg PO TID PRN (Reason: urinary burning) Qty: 20 1RF Rx Instructions: use with food oxycodone 5 mg tablet 5 mg PO BID PRN (Reason: pain) 7 Days Qty: 10 0RF Rx Instructions: Partial Fill upon patient request. May use 1-2 tabs BID albuterol sulfate [ProAir HFA] 90 mcg/actuation Hfa Aerosol Inhaler 2 puff INHALATION Q4-6H PRN (Reason: Shortness Of Breath) trazodone 50 mg tablet 50 mg PO BEDTIME sertraline 25 mg tablet 25 mg PO DAILY adalimumab 40 mg/0.4 mL pen injector kit 40 mg subcut .Q 14 DAYS metoprolol succinate 25 mg tablet extended release 24 hr 12.5 mg PO DAILY clonazepam 1 mg tablet 1 mg PO BEDTIME omeprazole 20 mg capsule,delayed release(DR/EC) 20 mg PO DAILY ondansetron 4 mg tablet,disintegrating 4 mg PO BID PRN (Reason: nausea/vomiting) oxybutynin chloride 5 mg tablet extended release 24hr 5 mg PO DAILY 30 Days Qty: 30 1RF Referrals: [facility] [Provider Group] Brett Su MD [Primary Care Provider] - Interventions: ED Discharge Assessment Last Done: 03/24/24 16:20 Discharge Date/Time: 03/24/24 16:20 Print Language: Hungarian
[2024-03-24 12:38] VITALS: BP 107/67; PULSE 98; RESP 16; TEMP 36.8; O2SAT 97; BMI 17.8
[2024-03-24 13:02] LABS: MANUAL DIFF FLAG NO
[2024-03-24 13:03] LABS: Basophils Percent Auto 0.5 % (0-2); Eosinophils Percent Auto 0.2 % (0-4); Hematocrit 31.5 % (37.0-47.0); Hemoglobin 9.9 g/dl (12.0-16.0); Imm Gran Abs Auto 0.02 X10*3/uL (0.00-0.03); Imm Gran Pct Auto 0.2 % (0.0-0.4); Lymphocytes Absolute Auto 2.2 X10*3/uL (1.2-4.9); Lymphocytes Percent Auto 27.1 % (20-40); Mean Corpuscular HGB Conc 31.4 g/dl (31.0-35.0); Mean Corpuscular Hemoglobin 23.3 pg (27.0-33.0); Mean Corpuscular Volume 74.3 fL (80.0-98.0); Mean Platelet Volume 9.4 fL (9.4-12.3); Monocytes Absolute Auto 0.6 X10*3/uL (0.1-1.2); Neutrophils Absolute Auto 5.3 x10*3/uL (2.0-8.3); Platelet Count 264 X10*3/uL (160-400); Red Blood Count 4.24 X10*6/uL (4.20-5.50); Red Cell Distribution Width 16.9 % (11.0-16.0); White Blood Count 8.2 X10*3/uL (4.8-10.8)
[2024-03-24 13:05] LABS: Appearance Urine Clear; Color Urine Yellow; Glucose Urine UA Negative (Negative); Leukocyte Esterase Urine Moderate (2+) (Negative); Nitrite Urine Negative (Negative); Specific Gravity - Urine 1.015 (1.005-1.025); UMIC TRIGGER UACC YES; Urine Blood Negative (Negative); Urine Ketones Negative (Negative); Urine Protein Negative (Neg-Trace)
[2024-03-24 13:07] LABS: Bacteria Urine Trace (None Seen); Hyaline Casts Urine 0-2 /LPF (0-2); RBC Urine 0-2 /HPF (0-2); UACC Culture Trigger YES
[2024-03-24 13:24] LABS: Alanine Aminotransferase 7 U/L (0-31); Alkaline Phosphatase 121 U/L (39-117); Anion Gap 13 (12-20); Aspartate Amino Transferase 16 U/L (5-31); Bilirubin Total 0.2 mg/dL (0.0-1.0); Blood Urea Nitrogen 18 mg/dL (9-16); Calcium 10.1 mg/dL (8.4-10.2); Carbon Dioxide 24 mmol/L (22-29); Chloride 102 mmol/L (96-108); Creatinine Clr Calc Pharmacy 57.3; Estimated Glomerular Filt Rate > 60; Glucose Random 99 mg/dL (60-115); Lipase 27 U/L (8-78); Potassium 3.9 mmol/L (3.3-5.1); Sodium 135 mmol/L (135-145); Total Protein 7.5 g/dL (6.5-8.0)
--- NOTE | 2024-03-24 15:06 | PC.NURSE ---
pt a&ox3 pt stating she has 11/10 pelvic pain and also c/o anxiety, provider was notified.
[2024-03-24] MEDS: oxyCODONE HCl Immed Release 5 MG TABLET PO (15:42)
[2024-03-24] MEDS: Ondansetron ODT 4 MG TAB.RAPDIS TRANSLINGU (15:42)
[2024-03-24] MEDS: LORazepam 1 MG TABLET PO (15:43)
--- NOTE | 2024-03-24 15:45 | PC.NURSE ---
pt was given medicated with PO meds which she was not happy about, this nurse told the patient she is only getting PO medications. pt stated after taking medications I want that PA back in here in a little bit to discharge me because I need a ride home to [place]. this nurse notified the provider of patients request.
[2024-03-24 16:12] VITALS: BP 108/59; PULSE 90; RESP 17; TEMP 36.8; O2SAT 100
[2024-03-24 16:20] VITALS: BP 108/59; PULSE 90; RESP 17; TEMP 36.8; O2SAT 100
== END 2024-03-24 16:20 | disposition home or self-care (01) ==
PROVIDERS: Nurse Practitioner Family; Emergency Provider Emergency Medicine; PCP Internal Medicine
DX: R10.2 Pelvic and perineal pain (principal); E78.5 Hyperlipidemia, unspecified; J45.909 Unspecified asthma, uncomplicated; F17.210 Nicotine dependence, cigarettes, uncomplicated; Z79.899 Other long term (current) drug therapy; Z79.02 Long term (current) use of antithrombotics/antiplatelets
CPT/HCPCS: 36415; 80053; 81001; 83690; 85025; 87086; 99283; 99284

== ENCOUNTER 2024-04-01 17:07 | Emergency (ER) | payer OTHER, SELFPAY ==
[2024-04-01 17:14] VITALS: BP 126/82; PULSE 110; O2SAT 97
[2024-04-01 17:17] VITALS: BP 109/68; PULSE 90; RESP 16; TEMP 36.8; O2SAT 100; BMI 18.8
[2024-04-01 18:45] LABS: MANUAL DIFF FLAG NO
[2024-04-01 18:46] LABS: Basophils Percent Auto 0.5 % (0-2); Eosinophils Absolute Auto 0.1 X10*3/uL (0.0-0.4); Eosinophils Percent Auto 1.3 % (0-4); Hematocrit 26.9 % (37.0-47.0); Hemoglobin 8.5 g/dl (12.0-16.0); Imm Gran Abs Auto 0.01 X10*3/uL (0.00-0.03); Imm Gran Pct Auto 0.2 % (0.0-0.4); Lymphocytes Absolute Auto 2.4 X10*3/uL (1.2-4.9); Mean Corpuscular HGB Conc 31.6 g/dl (31.0-35.0); Mean Corpuscular Hemoglobin 23.4 pg (27.0-33.0); Mean Corpuscular Volume 73.9 fL (80.0-98.0); Mean Platelet Volume 9.2 fL (9.4-12.3); Monocytes Absolute Auto 0.6 X10*3/uL (0.1-1.2); Monocytes Percent Auto 9.5 % (2-11); Neutrophils Absolute Auto 2.9 x10*3/uL (2.0-8.3); Neutrophils Percent Auto 48.5 % (45-73); Platelet Count 227 X10*3/uL (160-400); Red Blood Count 3.64 X10*6/uL (4.20-5.50); Red Cell Distribution Width 16.6 % (11.0-16.0)
[2024-04-01 19:07] LABS: Alanine Aminotransferase 5 U/L (0-31); Albumin Level 3.2 g/dL (3.5-5.0); Alkaline Phosphatase 97 U/L (39-117); Anion Gap 11 (12-20); Aspartate Amino Transferase 10 U/L (5-31); Bilirubin Direct < 0.2 mg/dL (0.0-0.5); Bilirubin Total 0.1 mg/dL (0.0-1.0); Blood Urea Nitrogen 17 mg/dL (9-16); Calcium 8.7 mg/dL (8.4-10.2); Carbon Dioxide 26 mmol/L (22-29); Chloride 106 mmol/L (96-108); Creatinine Clr Calc Pharmacy 67.1; Estimated Glomerular Filt Rate > 60; Glucose Random 123 mg/dL (60-115); Lipase 23 U/L (8-78); Magnesium 1.9 mg/dL (1.6-2.6); Potassium 3.8 mmol/L (3.3-5.1); Sodium 139 mmol/L (135-145)
[2024-04-01 19:36] LABS: Appearance Urine Clear; Color Urine Yellow; Glucose Urine UA Negative (Negative); Leukocyte Esterase Urine Negative (Negative); Nitrite Urine Negative (Negative); PH 5.5 (5.0-9.0); Urine Blood Negative (Negative); Urine Ketones Negative (Negative); Urine Protein Negative (Neg-Trace)
--- NOTE | 2024-04-01 20:13 | PC.NURSE ---
Patient very unhappy that she has had to wait this long for pain medicine, explained again that provider will be assess patient when available, apologized for the delay, offered tylenol PO, patient refused insisting on stronger meds. bargain table clerk Trista made aware of patient's dissatisfaction.
--- NOTE | 2024-04-01 21:35 | ED.FEMALEGU ---
HPI - Female Genitourinary General Chief complaint: Urogenital-Female Stated complaint: ABD PAIN X 3 DAYS Time Seen by Provider: 04/01/24 21:07 Source: patient Mode of arrival: EMS Limitations: no limitations History of Present Illness ED Provider: nga GIBBONS Narrative: Chronic pelvic pain been followed by urologist on oxycodone with colostomy bag with interstitial cystitis comes here for pain which is going on for a while no nausea no vomiting asking for morphine patient's labs were done prior to my evaluation which was normal no fever or chills Related Data Home Medications ?Medication ?Instructions ?Recorded ?Confirmed albuterol sulfate 90 mcg/actuation 2 puff inhalation Q4-6H PRN 04/25/20 03/09/24 aerosol inhaler (ProAir HFA) Shortness Of Breath adalimumab 40 mg/0.4 mL 40 mg subcut .Q 14 DAYS 06/21/20 03/09/24 subcutaneous pen kit clonazepam 1 mg tablet 1 mg PO BEDTIME 08/08/21 03/09/24 metoprolol succinate 25 mg 12.5 mg PO DAILY 08/08/21 03/09/24 tablet,extended release 24 hr omeprazole 20 mg capsule,delayed 20 mg PO DAILY 11/03/21 03/09/24 release ondansetron 4 mg disintegrating 4 mg PO BID PRN nausea/vomiting 11/17/22 03/09/24 tablet trazodone 50 mg tablet 50 mg PO BEDTIME 10/15/23 03/09/24 sertraline 25 mg tablet 25 mg PO DAILY 03/13/24 03/13/24 Previous Rx's ?Medication ?Instructions ?Recorded phenazopyridine 200 mg tablet 200 mg PO TID PRN urinary burning 01/29/24 (Pyridium) #20 tabs oxybutynin chloride 5 mg 5 mg PO DAILY 30 days #30 tabs 02/01/24 tablet,extended release 24 hr oxycodone 5 mg tablet 5 mg PO BID PRN pain 7 days #10 03/19/24 tabs belladonna alkaloids-opium 16.2 1 supp [place] .nightly 30 days #30 ea 03/29/24 mg-30 mg rectal suppository oxycodone 5 mg tablet 5 mg PO Q8H PRN pain (scale score 03/29/24 4-6) 7 days #20 tabs Allergies Allergy/AdvReac Type Severity Reaction Status Date / Time amoxicillin [From AUGMENTIN] Allergy Severe SEVERE Verified 04/01/24 17:18 DIARRHEA Piyoshj-PMX-RiH Reductase Allergy Intermediate muscle Verified 04/01/24 17:18 Inhibitor aches, [SVWNNOJ-ZKG-VAY REDUCTASE cramps INHIBITOR] acetaminophen [ACETAMINOPHEN] AdvReac Severe GI upset. Verified 04/01/24 17:18 Pt confirmed NOT allergic to oxycodone NSAIDS (Non-Steroidal AdvReac Severe Gastrointestinal Verified 04/01/24 17:18 Anti-Inflamma Upset Review of Systems Review of Systems: Yes all other systems are reviewed and are negative PMFSH Past Medical History Medical History Colostomy in place On beta morgan at home Anxiety SVT (supraventricular tachycardia) Depression Back pain History of gastrostomy tube placement Hx of ulcerative colitis Hx of cystitis History of anxiety Asthma Elevated cholesterol Surgical History History of tubal ligation History of endometrial ablation History of bladder surgery Social History Social History Household Members: Significant Other Housing: Apartment Are you a primary rn progressive care unit to a significant other at home: No Do you presently have visiting nurse or other home services: No Alcohol intake: former Patient Tobacco Use Status: Current everyday Tobacco user Tobacco use type: Cigarette Cigarettes Per Day: 4 Years Smoked: 22 Smoked in Last 30 Days: No Use of substances other than those prescribed or required for medical reasons: No Advance Directives: No Advance Directives Information Provided: Yes Do you have a plan to hurt others: No Plan Patient : No Current occupational status: disabled Physical Exam Vital Signs: Vital Signs: Last Vital Signs Temp 98.0 F 04/01/24 22:41 Pulse 82 04/01/24 22:41 Resp 16 04/01/24 22:41 BP 127/48 L 04/01/24 22:41 Pulse Ox 100 04/01/24 22:41 O2 Del Method Room Air 04/01/24 22:41 BMI result Body Mass Index 18.8 Appearance: Alert. Oriented X3. No acute distress. ENT: Pharynx normal. Oral Mucosa moist Neck: Normal inspection. Neck supple. CVS: Normal heart rate and rhythm. Pulses normal. Respiratory: No respiratory distress. Equal air entry bilateral, no wheezing/rales/rhonchi Abdomen: Soft and mild suprapubic tenderness. Bowel sounds are present, no mass palpable, no CVA tenderness colostomy bag in place Skin: Skin warm and dry. Normal skin color. Normal skin turgor. Extremities: No lower extremity edema. No calf tenderness Neuro: Oriented X 3. Medications Administered Discontinued Medications Generic Name Dose Route Start Last Admin Trade Name Fallon PRN Reason Stop Dose Admin Morphine Sulfate 2 mg 04/01/24 22:18 04/01/24 22:33 Morphine Sulfate 2 Mg/Ml Cartridge IVPUSH 04/01/24 22:19 2 mg ONCE ONE Administration Protocol Ondansetron HCl 4 mg 04/01/24 22:18 04/01/24 22:33 Ondansetron Hcl 4 Mg/2 Ml Vial IVPUSH 04/01/24 22:19 4 mg ONCE ONE Administration Medical Decision Making Medical Decision Making [facility] Narrative: Patient has chronic pelvic pain with stable labs on oxycodone at home will discharge patient labs are stable Differential Diagnosis Differential Diagnoses: The differential diagnosis associated with the presentation includes Lab Data [facility] Lab Attestation statement: I reviewed the patient's lab results. 04/01/24 18:41 04/01/24 18:41 Labs: Lab Results 04/01/24 04/01/24 Range/Units 18:41 19:29 WBC 6.0 (4.8-10.8) X10*3/uL RBC 3.64 L (4.20-5.50) X10*6/uL Hgb 8.5 L (12.0-16.0) g/dl Hct 26.9 L (37.0-47.0) % MCV 73.9 L (80.0-98.0) fL MCH 23.4 L (27.0-33.0) pg MCHC 31.6 (31.0-35.0) g/dl RDW 16.6 H (11.0-16.0) % Plt Count 227 (160-400) X10*3/uL MPV 9.2 L (9.4-12.3) fL Immature Gran % (Auto) 0.2 (0.0-0.4) % Neut % (Auto) 48.5 (45-73) % Lymph % (Auto) 40.0 (20-40) % [place] % (Auto) 9.5 (2-11) % Eos % (Auto) 1.3 (0-4) % Baso % (Auto) 0.5 (0-2) % Lymph # (Auto) 2.4 (1.2-4.9) X10*3/uL [place] # (Auto) 0.6 (0.1-1.2) X10*3/uL Eos # (Auto) 0.1 (0.0-0.4) X10*3/uL Baso # (Auto) 0.0 (0.0-0.2) X10*3/uL Abs Immat Gran (auto) 0.01 (0.00-0.03) X10*3/uL Absolute Neuts (auto) 2.9 (2.0-8.3) x10*3/uL Absolute Nucleated RBC 0.000 (0.0-0.012) X10*3/uL Nucleated RBC % (auto) 0.0 (0.0-0.2) /100WBC Sodium 139 (135-145) mmol/L Potassium 3.8 (3.3-5.1) mmol/L Chloride 106 (96-108) mmol/L Carbon Dioxide 26 (22-29) mmol/L Anion Gap 11 L (12-20) BUN 17 H (9-16) mg/dL Creatinine 0.73 (0.5-1.4) mg/dL Estim Creat Clear Calc 67.1 Estimated GFR > 60 Random Glucose 123 H (60-115) mg/dL Calcium 8.7 D (8.4-10.2) mg/dL Magnesium 1.9 (1.6-2.6) mg/dL Total Bilirubin 0.1 (0.0-1.0) mg/dL Direct Bilirubin < 0.2 (0.0-0.5) mg/dL AST 10 (5-31) U/L ALT 5 (0-31) U/L Alkaline Phosphatase 97 (39-117) U/L Total Protein 6.0 L (6.5-8.0) g/dL Albumin 3.2 L (3.5-5.0) g/dL Lipase 23 (8-78) U/L Urine Color Yellow Urine Appearance Clear Urine pH 5.5 (5.0-9.0) Ur Specific [place] 1.020 (1.005-1.025) Urine Protein Negative (Neg-Trace) mg/dL Urine Glucose (UA) Negative (Negative) mg/dL Urine Ketones Negative (Negative) mg/dL Urine Blood Negative (Negative) Urine Nitrite Negative (Negative) Ur Leukocyte Esterase Negative (Negative) Discharge Plan Discharge Clinical Impression: Chronic female pelvic pain Patient Disposition: Home, Self-Care Instructions: Chronic Abdominal Pain (ED) Additional Instructions: Take pain medication as prescribed by your urologist Follow up with your urologist Prescriptions: No Action phenazopyridine [Pyridium] 200 mg tablet 200 mg PO TID PRN (Reason: urinary burning) Qty: 20 1RF Rx Instructions: use with food oxycodone 5 mg tablet 5 mg PO BID PRN (Reason: pain) 7 Days Qty: 10 0RF Rx Instructions: Partial Fill upon patient request. May use 1-2 tabs BID belladonna alkaloids-opium 16.2-30 mg suppository 1 supp NH .nightly 30 Days Qty: 30 0RF Rx Instructions: Partial Fill upon patient request. oxycodone 5 mg tablet 5 mg PO Q8H PRN (Reason: pain (scale score 4-6)) 7 Days Qty: 20 0RF Rx Instructions: Partial Fill upon patient request. albuterol sulfate [ProAir HFA] 90 mcg/actuation Hfa Aerosol Inhaler 2 puff INHALATION Q4-6H PRN (Reason: Shortness Of Breath) trazodone 50 mg tablet 50 mg PO BEDTIME sertraline 25 mg tablet 25 mg PO DAILY adalimumab 40 mg/0.4 mL pen injector kit 40 mg subcut .Q 14 DAYS metoprolol succinate 25 mg tablet extended release 24 hr 12.5 mg PO DAILY clonazepam 1 mg tablet 1 mg PO BEDTIME omeprazole 20 mg capsule,delayed release(DR/EC) 20 mg PO DAILY ondansetron 4 mg tablet,disintegrating 4 mg PO BID PRN (Reason: nausea/vomiting) oxybutynin chloride 5 mg tablet extended release 24hr 5 mg PO DAILY 30 Days Qty: 30 1RF Interventions: ED Discharge Assessment Last Done: 04/01/24 22:41 Print Language: Congolese
--- NOTE | 2024-04-01 22:19 | PC.NURSE ---
Patient initially unable to find a ride home, refusing PO oxy provider order insisting on IV morphine and zofran. Patient needs safe ride home in order for IV narcotic medications. Patient now able to find ride home, will be here in approximately 40 minutes, provider Dr. Cooper made aware.
[2024-04-01 22:29] VITALS: BP 127/48; PULSE 82; RESP 16; O2SAT 100
[2024-04-01] MEDS: Morphine Sulfate 2 MG/ML CARTRIDGE IVPUSH (22:33)
[2024-04-01] MEDS: ondansetron HCL 4 MG/2 ML VIAL IVPUSH (22:33)
[2024-04-01 22:41] VITALS: BP 127/48; PULSE 82; RESP 16; TEMP 36.7; O2SAT 100
--- NOTE | 2024-04-01 22:48 | PC.NURSE ---
Discharge paperwork reviewed with patient, MICHAEL barnes, as patient was given paperwork to go to to wait for her ride, patient answered phone call, then informed nursing that ride was actually unavailable. Informed patient that she could still wait in the [facility] for her ride, patient adamantly refusing to leave her room, screaming at this RN about how her family knows people and we are all going to get reported. Charge Jodi made aware. Sign out given to Arcelia, patient still intermittently screaming in room at this time.
--- NOTE | 2024-04-02 01:03 | PC.NURSE ---
Took over care from PAMELA Gonzalez at 23:00pm, pt waiting a ride home in am, sandwich and drink given, pt resting in bed.
[2024-04-02 01:05] VITALS: BP 111/66; PULSE 75; RESP 16; TEMP 37; O2SAT 99
--- NOTE | 2024-04-02 03:20 | PC.NURSE ---
pt oob to bathroom to change colostomy bag.
--- NOTE | 2024-04-02 06:44 | PC.NURSE ---
pt awaiting a ride this morning.
[2024-04-02 06:53] VITALS: BP 104/58; PULSE 70; RESP 16; O2SAT 99
== END 2024-04-02 07:13 | disposition home or self-care (01) ==
PROVIDERS: Physician Assistant; Emergency Provider Internal Medicine; PCP Internal Medicine
DX: R10.2 Pelvic and perineal pain (principal); E78.5 Hyperlipidemia, unspecified; F17.210 Nicotine dependence, cigarettes, uncomplicated; Z93.3 Colostomy status; Z79.02 Long term (current) use of antithrombotics/antiplatelets; Z79.899 Other long term (current) drug therapy
CPT/HCPCS: 36415; 80048; 80076; 81003; 83690; 83735; 85025; 96374; 96375; 99284; J2270; J2405

== ENCOUNTER 2024-04-07 11:31 | Outpatient (AMB) | payer OTHER, SELFPAY ==
--- NOTE | 2024-04-07 11:32 | A.OFFVIS_ITS ---
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 Pt confirmed NOT allergic to oxycodone NSAIDS (Non-Steroidal Anti-Inflamma Adverse Reaction (Severe, Verified 05/21/24 12:13) Gastrointestinal Upset HPI Comments Details: Randi is a pleasant female. She is a patient of Dr. Su. she seen for the following urologic conditions - interstitial cystitis Telemedicine evaluation 15 minute consultation Video attempted Doximity edd Has referral to PT for pelvic floor physical therapy Continued issues with pain medication Stressed that she should be assessed by pain management for ongoing pelvic floor medications Have discussed availability of belladonna suppositories Previously prescribed however they are expensive Will represcribed oxycodone limited quantity Interstitial cystitis Patient with interstitial cystitis and bladder pain which responded to therapeutic hydrodistention Last hydrodistention - Apr 2023 Was previously on every 3 month schedule but over the last year had been doing every 2 months Would like to have another cystoscopy - hydrodistention done risks benefits potential complications morbidity mortality reviewed all questions answered informed consent obtained [facility] Medical History Colostomy in place On beta morgan at home Anxiety SVT (supraventricular tachycardia) Depression Back pain History of gastrostomy tube placement Hx of ulcerative colitis Hx of cystitis History of anxiety Asthma Elevated cholesterol Surgical History History of tubal ligation History of endometrial ablation History of bladder surgery Social History Household Members: Significant Other Housing: Apartment Are you a primary youth career specialist to a significant other at home: No Do you presently have visiting nurse or other home services: No Alcohol intake: former Patient Tobacco Use Status: Current everyday Tobacco user Tobacco use type: Cigarette Cigarettes Per Day: 4 Years Smoked: 22 Smoked in Last 30 Days: No Advance Directives: No Advance Directives Information Provided: Yes Do you have a plan to hurt others: No Plan Current occupational status: disabled Review of Systems Const All systems reviewed & are unremarkable except as noted in HPI and below Reports no additional complaints Resp Reports no additional complaints GI Reports no additional complaints Reports as per HPI Musc Reports no additional complaints Physical Exam Telemedicine evaluation Appropriate responses Regular breathing rate and rhythm HEENT Head: Yes normal to inspection Ears: hearing grossly normal bilaterally Eyes General: appearance normal, both eyes and all related structures Neck Neck: Yes normal visual inspection Chest Chest palpation & inspection: normal inspection of the chest Resp Effort & Inspection: normal respiratory effort and able to speak in complete sentences Telehealth Telehealth Telehealth Platform: OurStage Location of provider rendering services: practice address Location of patient: address on file Patient Identification confirmed using: Name, : Yes Telehealth method: video Patient verbally consented to treatment: Yes Patient verbally consented to billing insurance company: Yes Patient informed of any privacy concerns related to visit: Yes Minutes spent on Phone/Video with Pt.: 15 Assessment & Plan Assessment & Plan (1) Interstitial cystitis: Code(s): N30.10 - Interstitial cystitis (chronic) without hematuria Category: Medical (2) Bladder pain: Code(s): R39.89 - Other symptoms and signs involving the genitourinary system Category: Medical (3) Pelvic floor dysfunction in female: Code(s): M62.89 - Other specified disorders of muscle Category: Medical Plan Physical therapy Hydrodistention for May Patient Instructions: Imaging studies, laboratory and physical exam results were discussed and reviewed in detail. No major barriers to patient understanding were identified. An opportunity to ask questions regarding the treatment plan was provided. All questions were answered. The patient expressed understanding and agreement with the above treatment plan. The patient is aware they should contact our office by phone for worsening of their current condition or the appearance of new urologic symptoms. Compliance is encouraged with any medications and followup testing that is ordered. It is a privilege to participate in the urologic care of your patient. If you have any questions or concerns regarding treatment for the above conditions, or other urologic issues, please do not hesitate to contact me. The office telephone contact is [phone]. This note is constructed using voice recognition software. While every effort has been made to ensure accuracy sap bw developer errors may have been included. Yours sincerely, Dr Mk Cornelius MD, [facility] - Urology Providers of Expert, Compassionate Care for the Genitourinary System Coding Level of Care Code Tele Est Pt Level 3 (10504) Diagnoses Interstitial cystitis N30.10 Bladder pain R39.89 Pelvic floor dysfunction in female M62.89
== END 2024-04-07 15:10 | disposition home or self-care (01) ==
LOC: HO.HUSH 11:31
PROVIDERS: PCP Internal Medicine; Visit Provider Urology
DX: N30.10 Interstitial cystitis (chronic) without hematuria (principal); R39.89 Other symptoms and signs involving the genitourinary system; M62.89 Other specified disorders of muscle
CPT/HCPCS: 99213

== ENCOUNTER → 2024-04-07 11:31 | Outpatient (BNVA) | payer OTHER, SELFPAY | PROVIDERS: PCP Internal Medicine; Visit Provider Urology ==

== ENCOUNTER 2024-04-20 12:48 | Emergency (ER) | payer OTHER, SELFPAY ==
--- NOTE | ~2024-04-20 | XR_ITS ---
EXAMINATION: XR LUMBOSACRAL SPINE CLINICAL INFORMATION: Low back pain. COMPARISON: None available. TECHNIQUE: Three views of the lumbosacral spine. FINDINGS: Osteopenia versus osteoporosis. Superior endplate compression deformity at T12 representing 40% volume loss. No gross retropulsion. Stimulator device electrode leads overlaps the right S3. Sclerosis in the sacroiliac joints bilaterally. Spina bifida occulta S1. Multilevel thoracolumbar spondylosis. Vascular calcifications. XR/XR lumbar spine 2-3V IMPRESSION: Subacute to old compression deformity at T12. Multilevel lumbar spondylosis. If patient's symptoms persist recommend CT. Electronically signed by: Chuck Fall MD 04/20/2024 03:29 PM [facility]YAN ARNDT
[2024-04-20 12:57] VITALS: BP 130/92; PULSE 70; O2SAT 95
[2024-04-20 13:12] VITALS: BP 118/57; PULSE 73; RESP 14; TEMP 37.1; O2SAT 100; BMI 17.5
--- NOTE | 2024-04-20 13:17 | ED_ITS ---
HPI - Abdominal Pain General Chief Complaint: Abdominal Pain Stated Complaint: ABDOMINAL PAIN PER EMS Time Seen by Provider: 04/20/24 13:08 Source: patient, EMS and old records reviewed Mode of arrival: EMS Limitations: no limitations History of Present Illness ED Provider: HARSHAL GIBBONS narrative: 59 yo female with PMH of UC s/p colostomy, SVT, depression,asthma, anxiety, interstitial cystitis here with c/o chronic pelvic pain no new features no n/v/d or dysuria has chronic pain followed closely with Adryan given 15mg toradol en route no relief. She also reports chronic back pain but no trauma - no b/b incontinence or saddle anesthesia. She follows closely with Dr. Cornelius and has had this many times before. MD elicited complaint: abdominal pain Pertinent past history: other Onset (ago): month(s) Pain Consistency: intermittent Location: suprapubic Severity: mild Quality: aching Radiation: none Migration to: no migration Exacerbating factors: nothing Relieving factors: nothing Context: history of similar episodes Associated symptoms: other (low back pain) Related Data Home Medications ?Medication ?Instructions ?Recorded ?Confirmed albuterol sulfate 90 mcg/actuation 2 puff inhalation Q4-6H PRN 04/25/20 03/09/24 aerosol inhaler (ProAir HFA) Shortness Of Breath adalimumab 40 mg/0.4 mL 40 mg subcut .Q 14 DAYS 06/21/20 03/09/24 subcutaneous pen kit clonazepam 1 mg tablet 1 mg PO BEDTIME 08/08/21 03/09/24 metoprolol succinate 25 mg 12.5 mg PO DAILY 08/08/21 03/09/24 tablet,extended release 24 hr omeprazole 20 mg capsule,delayed 20 mg PO DAILY 11/03/21 03/09/24 release ondansetron 4 mg disintegrating 4 mg PO BID PRN nausea/vomiting 11/17/22 03/09/24 tablet trazodone 50 mg tablet 50 mg PO BEDTIME 10/15/23 03/09/24 sertraline 25 mg tablet 25 mg PO DAILY 03/13/24 03/13/24 buprenorphine 8 mg-naloxone 2 mg 0 film sublingual 04/07/24 sublingual film lorazepam 0.5 mg tablet mg PO 04/07/24 trazodone 100 mg tablet 100 mg PO BEDTIME 10/25/24 Previous Rx's ?Medication ?Instructions ?Recorded phenazopyridine 200 mg tablet 200 mg PO TID PRN urinary burning 01/29/24 (Pyridium) #20 tabs oxycodone 5 mg tablet 5 mg PO BID PRN pain 7 days #10 03/19/24 tabs belladonna alkaloids-opium 16.2 1 supp IA .nightly 30 days #30 ea 04/04/24 mg-30 mg rectal suppository belladonna alkaloids-opium 16.2 1 supp IA DAILY PRN pain 30 days 04/05/24 mg-60 mg rectal suppository #30 ea oxycodone 5 mg tablet 5 mg PO Q12H PRN pain (scale score 04/07/24 4-6) 30 days #45 tabs oxybutynin chloride 5 mg 5 mg PO DAILY 30 days #30 tabs 04/11/24 tablet,extended release 24 hr ferrous sulfate 325 mg (65 mg 325 mg PO DAILY #30 tabs 04/20/24 iron) tablet lidocaine 5 % topical patch 1 patch topical DAILY #30 ea 04/20/24 Allergies Allergy/AdvReac Type Severity Reaction Status Date / Time amoxicillin [From AUGMENTIN] Allergy Severe SEVERE Verified 04/20/24 13:15 DIARRHEA Imdqgvd-HXG-CgD Reductase Allergy Intermediate muscle Verified 04/20/24 13:15 Inhibitor aches, [[id number]-BRR-XMD REDUCTASE cramps INHIBITOR] acetaminophen [ACETAMINOPHEN] AdvReac Severe GI upset. Verified 04/20/24 13:15 Pt confirmed NOT allergic to oxycodone NSAIDS (Non-Steroidal AdvReac Severe Gastrointestinal Verified 04/20/24 13:15 Anti-Inflamma Upset Review of Systems Review of Systems Constitutional : No Weight loss, No Fever, No Chills ENT/Mouth : No sore throat, No Rhinorrhea Eyes: No Swelling, No Redness Cardiovascular : No Chest Pain, No SOB, NoEdema Respiratory : No Cough, No Sputum, No Wheezing Gastrointestinal : no Nausea, no Vomiting, no Diarrhea, positive abdominal Pain, No Hematochezia, No Melena Genitourinary : No Dysuria, No Urinary Frequency, No Hematuria, No Urgency Musculoskeletal : No joint pain, No Myalgias, No Joint Swelling Skin : No Skin Lesions, No rash Neuro : No Weakness, No Numbness, No Dizziness, No Headache All other systems reviewed and are negative. PMFSH Past Medical History Attestation statement: The following information was validated with the patient. Source: old records reviewed Medical History Colostomy in place On beta morgan at home Anxiety SVT (supraventricular tachycardia) Depression Back pain History of gastrostomy tube placement Hx of ulcerative colitis Hx of cystitis History of anxiety Asthma Elevated cholesterol Surgical History History of tubal ligation History of endometrial ablation History of bladder surgery Social History Social History Household Members: Significant Other Housing: Apartment Are you a primary director of critical care to a significant other at home: No Do you presently have visiting nurse or other home services: No Alcohol intake: former Patient Tobacco Use Status: Current everyday Tobacco user Tobacco use type: Cigarette Cigarettes Per Day: 4 Years Smoked: 22 Advance Directives: No Advance Directives Information Provided: Yes Current occupational status: disabled Physical Exam ED Vital Signs: Vital Signs - 24 hr 04/20/24 13:12 04/20/24 15:47 Temperature 98.7 F 98.2 F Pulse Rate 73 73 Respiratory Rate 14 18 Blood Pressure 118/57 L 105/62 Pulse Oximetry 100 100 Oxygen Delivery Method Room Air Room Air BMI result Body Mass Index 17.5 Appearance: Alert. Oriented X3. No acute distress. thin and frail appearing Eyes: Pupils equal, round and reactive to light. ENT: Pharynx normal. Neck: Normal inspection. Neck supple. CVS: Normal heart rate and rhythm. Pulses normal. Respiratory: No respiratory distress. Breath sounds normal. Abdomen: Soft and mild suprapubic ttp no rebound or guarding colostomy is p/p/p Skin: Skin warm and dry. Normal skin color. Normal skin turgor. Extremities: No lower extremity edema. No calf ttp Neuro: Oriented X 3. No motor deficit. No sensory deficit. Course Course Course Narrative: no vag bleeding or GIB reported drop in hemoglobin suspect poor intake Medical Decision Making Medical Decision Making MDM Narrative: 59 yo female with PMH of UC s/p colostomy, SVT, depression,asthma, anxiety, interstitial cystitis here with c/o chronic pelvic pain no new trauma n/v/d fevers. She also c/o low back pain no trauma no cauda equina symptoms - at this time basic labs, UA, IV morphine for pain follows closely with Dr. Cornelius Differential Diagnosis Differential Diagnoses: The differential diagnosis associated with the presentation includes UTI, interstitial cystitis, chronic pain Admission/Observation Consideration of admission/observation: Escalation of care including admission/observation considered feels better, old and chronic issue anemia but VS stable and no GI bleed symptoms Lab Data MDM Lab Attestation statement: I reviewed the patient's lab results. 04/20/24 13:43 04/20/24 13:43 Labs: Lab Results 04/20/24 04/20/24 Range/Units 13:43 15:34 WBC 5.9 (4.8-10.8) X10*3/uL RBC 3.41 L (4.20-5.50) X10*6/uL Hgb 7.7 L (12.0-16.0) g/dl Hct 24.2 L (37.0-47.0) % MCV 71.0 L (80.0-98.0) fL MCH 22.6 L (27.0-33.0) pg MCHC 31.8 (31.0-35.0) g/dl RDW 16.9 H (11.0-16.0) % Plt Count 217 (160-400) X10*3/uL MPV 8.9 L (9.4-12.3) fL Immature Gran % (Auto) 0.3 (0.0-0.4) % Neut % (Auto) 47.0 (45-73) % Lymph % (Auto) 39.5 (20-40) % [place] % (Auto) 11.6 H (2-11) % Eos % (Auto) 0.9 (0-4) % Baso % (Auto) 0.7 (0-2) % Lymph # (Auto) 2.3 (1.2-4.9) X10*3/uL [place] # (Auto) 0.7 (0.1-1.2) X10*3/uL Eos # (Auto) 0.1 (0.0-0.4) X10*3/uL Baso # (Auto) 0.0 (0.0-0.2) X10*3/uL Abs Immat Gran (auto) 0.02 (0.00-0.03) X10*3/uL Absolute Neuts (auto) 2.8 (2.0-8.3) x10*3/uL Absolute Nucleated RBC 0.000 (0.0-0.012) X10*3/uL Nucleated RBC % (auto) 0.0 (0.0-0.2) /100WBC Sodium 137 (135-145) mmol/L Potassium 3.7 (3.3-5.1) mmol/L Chloride 107 (96-108) mmol/L Carbon Dioxide 23 (22-29) mmol/L Anion Gap 11 L (12-20) BUN 20 H (9-16) mg/dL Creatinine 0.70 (0.5-1.4) mg/dL Estim Creat Clear Calc 65.0 Estimated GFR > 60 Random Glucose 75 (60-115) mg/dL Calcium 8.9 (8.4-10.2) mg/dL Magnesium 1.8 (1.6-2.6) mg/dL Total Bilirubin 0.2 (0.0-1.0) mg/dL Direct Bilirubin < 0.2 (0.0-0.5) mg/dL AST 17 (5-31) U/L ALT < 6 (0-31) U/L Alkaline Phosphatase 102 (39-117) U/L C-Reactive Protein < 0.10 (< or = 0.50) mg/dL Total Protein 6.6 (6.5-8.0) g/dL Albumin 3.5 (3.5-5.0) g/dL Lipase 38 (8-78) U/L Urine Color Yellow Urine Appearance Clear Urine pH 5.5 (5.0-9.0) Ur Specific [place] 1.015 (1.005-1.025) Urine Protein Negative (Neg-Trace) mg/dL Urine Glucose (UA) Negative (Negative) mg/dL Urine Ketones Negative (Negative) mg/dL Urine Blood Negative (Negative) Urine Nitrite Negative (Negative) Ur Leukocyte Esterase Trace H (Negative) Urine RBC 0-2 (0-2) /HPF Urine WBC 0-5 (0-5) /HPF Ur Squamous Epith Cells 6-10 (0-2) /HPF Urine Bacteria Trace (None Seen) Hyaline Casts 0-2 (0-2) /LPF Independent Interpretation I performed an independent interpretation of an: Plain X-Ray (T12 compression fracture) Independent Historian Clinical information obtained from an independent historian. History obtained from or confirmed by: EMS External Record Review External record reviewed: Office record Prescription Management I considered prescription management with: Other Medications Administered Discontinued Medications Generic Name Dose Route Start Last Admin Trade Name Fallon PRN Reason Stop Dose Admin Morphine Sulfate 4 mg 04/20/24 13:23 04/20/24 13:39 Morphine Sulfate 4 Mg/Ml Cartridge IVPUSH 04/20/24 13:24 4 mg ONCE ONE Administration Protocol Morphine Sulfate 4 mg 04/20/24 15:35 04/20/24 15:44 Morphine Sulfate 4 Mg/Ml Cartridge IVPUSH 04/20/24 15:36 4 mg ONCE ONE Administration Protocol Ondansetron HCl 4 mg 04/20/24 13:23 04/20/24 13:39 Ondansetron Hcl 4 Mg/2 Ml Vial IVPUSH 04/20/24 13:24 4 mg ONCE ONE Administration Discharge Plan Discharge Clinical Impression: Interstitial cystitis Anemia Qualifiers: Anemia type: unspecified type Qualified Code(s): D64.9 - Anemia, unspecified T12 compression fracture Qualifiers: Encounter type: initial encounter Qualified Code(s): S22.080A - Wedge compression fracture of T11-T12 vertebra, initial encounter for closed fracture Patient Disposition: Home, Self-Care Instructions: Vertebral Compression Fracture (ED), Anemia (ED), Interstitial Cystitis (ED) Additional Instructions: you have likely old T12 compression fracture which is cause of low back pain return for any worsening symptoms or concerns and follow up with your doctor labs reassuring other than drop in hemoglobin to 7.7 - need to increase dietary iron and have repeat blood count done with your doctor by Wednesday. return for any worsening symptoms or concerns FINDINGS: Osteopenia versus osteoporosis. Superior endplate compression deformity at T12 representing 40% volume loss. No gross retropulsion. Stimulator device electrode leads overlaps the right S3. Sclerosis in the sacroiliac joints bilaterally. Spina bifida occulta S1. Multilevel thoracolumbar spondylosis. Vascular calcifications. Prescriptions: New lidocaine 5 % adhesive patch,medicated 1 patch topical DAILY Qty: 30 0RF Rx Instructions: leave on most painful area for up to 12 hrs ferrous sulfate 325 mg (65 mg iron) tablet 325 mg PO DAILY Qty: 30 0RF No Action phenazopyridine [Pyridium] 200 mg tablet 200 mg PO TID PRN (Reason: urinary burning) Qty: 20 1RF Rx Instructions: use with food oxycodone 5 mg tablet 5 mg PO BID PRN (Reason: pain) 7 Days Qty: 10 0RF Rx Instructions: Partial Fill upon patient request. May use 1-2 tabs BID belladonna alkaloids-opium 16.2-30 mg suppository 1 supp IA .nightly 30 Days Qty: 30 0RF Rx Instructions: Partial Fill upon patient request.. belladonna alkaloids-opium 16.2-60 mg suppository 1 supp IA DAILY PRN (Reason: pain) 30 Days Qty: 30 0RF Rx Instructions: Partial Fill upon patient request. oxycodone 5 mg tablet 5 mg PO Q12H PRN (Reason: pain (scale score 4-6)) 30 Days Qty: 45 0RF Rx Instructions: Partial Fill upon patient request. oxybutynin chloride 5 mg tablet extended release 24hr 5 mg PO DAILY 30 Days Qty: 30 1RF albuterol sulfate [ProAir HFA] 90 mcg/actuation Hfa Aerosol Inhaler 2 puff INHALATION Q4-6H PRN (Reason: Shortness Of Breath) trazodone 50 mg tablet 50 mg PO BEDTIME sertraline 25 mg tablet 25 mg PO DAILY adalimumab 40 mg/0.4 mL pen injector kit 40 mg subcut .Q 14 DAYS metoprolol succinate 25 mg tablet extended release 24 hr 12.5 mg PO DAILY clonazepam 1 mg tablet 1 mg PO BEDTIME omeprazole 20 mg capsule,delayed release(DR/EC) 20 mg PO DAILY ondansetron 4 mg tablet,disintegrating 4 mg PO BID PRN (Reason: nausea/vomiting) lorazepam 0.5 mg tablet PO trazodone 100 mg tablet 100 mg PO BEDTIME buprenorphine-naloxone 8-2 mg film 0 film sublingual Print Language: Sinhala
[2024-04-20] MEDS: ondansetron HCL 4 MG/2 ML VIAL IVPUSH (13:39)
[2024-04-20] MEDS: Morphine Sulfate 4 MG/ML CARTRIDGE IVPUSH ×2 (13:39→15:44)
[2024-04-20 13:47] LABS: MANUAL DIFF FLAG NO
[2024-04-20 13:50] LABS: Basophils Percent Auto 0.7 % (0-2); Eosinophils Absolute Auto 0.1 X10*3/uL (0.0-0.4); Eosinophils Percent Auto 0.9 % (0-4); Hematocrit 24.2 % (37.0-47.0); Hemoglobin 7.7 g/dl (12.0-16.0); Imm Gran Abs Auto 0.02 X10*3/uL (0.00-0.03); Imm Gran Pct Auto 0.3 % (0.0-0.4); Lymphocytes Absolute Auto 2.3 X10*3/uL (1.2-4.9); Lymphocytes Percent Auto 39.5 % (20-40); Mean Corpuscular HGB Conc 31.8 g/dl (31.0-35.0); Mean Corpuscular Hemoglobin 22.6 pg (27.0-33.0); Mean Platelet Volume 8.9 fL (9.4-12.3); Monocytes Absolute Auto 0.7 X10*3/uL (0.1-1.2); Monocytes Percent Auto 11.6 % (2-11); Neutrophils Absolute Auto 2.8 x10*3/uL (2.0-8.3); Platelet Count 217 X10*3/uL (160-400); Red Blood Count 3.41 X10*6/uL (4.20-5.50); Red Cell Distribution Width 16.9 % (11.0-16.0); White Blood Count 5.9 X10*3/uL (4.8-10.8)
[2024-04-20 14:06] LABS: Alanine Aminotransferase < 6 U/L (0-31); Albumin Level 3.5 g/dL (3.5-5.0); Alkaline Phosphatase 102 U/L (39-117); Anion Gap 11 (12-20); Aspartate Amino Transferase 17 U/L (5-31); Bilirubin Direct < 0.2 mg/dL (0.0-0.5); Bilirubin Total 0.2 mg/dL (0.0-1.0); Blood Urea Nitrogen 20 mg/dL (9-16); C Reactive Protein < 0.10 mg/dL (< or = 0.50); Calcium 8.9 mg/dL (8.4-10.2); Carbon Dioxide 23 mmol/L (22-29); Chloride 107 mmol/L (96-108); Estimated Glomerular Filt Rate > 60; Glucose Random 75 mg/dL (60-115); Lipase 38 U/L (8-78); Magnesium 1.8 mg/dL (1.6-2.6); Potassium 3.7 mmol/L (3.3-5.1); Sodium 137 mmol/L (135-145); Total Protein 6.6 g/dL (6.5-8.0)
[2024-04-20 15:44] LABS: Appearance Urine Clear; Color Urine Yellow; Glucose Urine UA Negative (Negative); Leukocyte Esterase Urine Trace (Negative); Nitrite Urine Negative (Negative); PH 5.5 (5.0-9.0); Specific Gravity - Urine 1.015 (1.005-1.025); UMIC TRIGGER UACC YES; Urine Blood Negative (Negative); Urine Ketones Negative (Negative); Urine Protein Negative (Neg-Trace)
[2024-04-20 15:47] VITALS: BP 105/62; PULSE 73; RESP 18; TEMP 36.8; O2SAT 100
[2024-04-20 15:47] LABS: Bacteria Urine Trace (None Seen); Hyaline Casts Urine 0-2 /LPF (0-2); RBC Urine 0-2 /HPF (0-2); WBC Urine 0-5 /HPF (0-5)
[2024-04-20 16:00] VITALS: BP 105/62; PULSE 73; RESP 18; TEMP 36.8; O2SAT 100
== END 2024-04-20 17:11 | disposition home or self-care (01) ==
PROVIDERS: Emergency Provider Emergency Medicine; PCP Internal Medicine
DX: R10.2 Pelvic and perineal pain (principal); F41.9 Anxiety disorder, unspecified; M54.50 Low back pain, unspecified; Z79.899 Other long term (current) drug therapy
CPT/HCPCS: 36415; 72100; 80048; 80076; 81001; 83690; 83735; 85025; 86140; 96374; 96375; 96376; 99284; J2270; J2405

== ENCOUNTER → 2024-04-20 13:28 | Outpatient (BNV) | payer OTHER, SELFPAY | PROVIDERS: Emergency Provider Emergency Medicine; PCP Internal Medicine; Visit Provider Radiology Diagnostic Radiology | DX: M54.50 Low back pain, unspecified (principal) | CPT/HCPCS: 72100 ==

== ENCOUNTER 2024-04-30 15:48 | Emergency (ER) | payer OTHER, SELFPAY ==
--- NOTE | ~2024-04-30 | XR_ITS ---
EXAMINATION: XR CHEST CLINICAL INFORMATION: Pain. COMPARISON: Chest radiograph dated 03/08/2010. TECHNIQUE: 2 views of the chest were obtained. FINDINGS: No airspace consolidation. No pleural effusion or pneumothorax. Unremarkable cardiomediastinal silhouette. Age indeterminant compression deformities within the mid and lower thoracic spine, in the region of T8 and T12. No discrete underlying lesion; however, evaluation is limited. If there is concern for acute fracture, dedicated thoracic spine CT or MRI could help further evaluate. XR/XR chest 2V IMPRESSION: 1. No acute cardiopulmonary findings. 2. Age indeterminant compression deformities within the mid and lower thoracic spine, in the region of T8 and T12. No discrete underlying lesion; however, evaluation is limited. There is concern for acute fracture, dedicated thoracic spine CT or MRI could help further evaluate. Electronically signed by: Bassem Muhammad MD 04/30/2024 04:57 PM [facility] [place]
--- NOTE | 2024-04-30 15:51 | ECG_ITS ---
Test Reason : CHEST PAIN Blood Pressure : / mmHG Vent. Rate : 077 BPM Atrial Rate : 077 BPM P-R Int : 116 ms QRS Dur : 080 ms QT Int : 392 ms P-R-T Axes : 019 019 020 degrees QTc Int : 443 ms Normal sinus rhythm Normal ECG When compared with ECG of 19-DEC-2023 16:03, Nonspecific T wave abnormality now evident in Inferior leads Referred By: Generic ED Physician Electronically Signed By:ANGELIA PARISH MD
[2024-04-30 15:59] VITALS: BP 103/62; PULSE 84; O2SAT 99
[2024-04-30 16:03] VITALS: BP 113/57; PULSE 73; RESP 16; TEMP 37.1; O2SAT 98; BMI 19.3
[2024-04-30 16:06] VITALS: PULSE 77
--- NOTE | 2024-04-30 16:11 | PC.NURSE ---
pt is alert and oriented, skin pwd, respirations even and unlabored, ls clear, pt states that while resting on the sofa started having left shoulder pain that radiated to the left chest and sob while this occurred, pt described the pain at pressure but state sit has gotten better, ns on the monitor
[2024-04-30] MEDS: methocarbamoL 750 MG TABLET PO (16:33)
--- NOTE | 2024-04-30 16:37 | ED_ITS ---
HPI - Chest Pain General Chief Complaint: Chest Pain Stated Complaint: CHRUSHING CP/SOB PER EMS Time Seen by Provider: 04/30/24 16:12 Source: patient Limitations: no limitations History of Present Illness ED Provider: Matilda Nielson PA-C HPI narrative: 59-year-old female with a history of chronic abdominal and pelvic pain, chronic back pain, interstitial cystitis, presents with acute onset chest pain prior to arrival. Patient states she developed ?crushing chest pain?, over left anterior chest. Pain was nonradiating. She received 324 mg of aspirin via EMS, the pain was transient it has since resolved. Denies associated shortness of breath, diaphoresis, nausea, vomiting. Patient also complains of ongoing back pain. She was found to have an old compression fracture in the T-spine at the beginning of April. Denies recent cough or cold symptoms no fevers. Related Data Home Medications ?Medication ?Instructions ?Recorded ?Confirmed albuterol sulfate 90 mcg/actuation 2 puff inhalation Q4-6H PRN 04/25/20 03/09/24 aerosol inhaler (ProAir HFA) Shortness Of Breath adalimumab 40 mg/0.4 mL 40 mg subcut .Q 14 DAYS 06/21/20 03/09/24 subcutaneous pen kit clonazepam 1 mg tablet 1 mg PO BEDTIME 08/08/21 03/09/24 metoprolol succinate 25 mg 12.5 mg PO DAILY 08/08/21 03/09/24 tablet,extended release 24 hr omeprazole 20 mg capsule,delayed 20 mg PO DAILY 11/03/21 03/09/24 release ondansetron 4 mg disintegrating 4 mg PO BID PRN nausea/vomiting 11/17/22 03/09/24 tablet trazodone 50 mg tablet 50 mg PO BEDTIME 10/15/23 03/09/24 sertraline 25 mg tablet 25 mg PO DAILY 03/13/24 03/13/24 buprenorphine 8 mg-naloxone 2 mg 0 film sublingual 04/07/24 sublingual film lorazepam 0.5 mg tablet mg PO 04/07/24 trazodone 100 mg tablet 100 mg PO BEDTIME 04/07/24 Previous Rx's ?Medication ?Instructions ?Recorded phenazopyridine 200 mg tablet 200 mg PO TID PRN urinary burning 01/29/24 (Pyridium) #20 tabs oxycodone 5 mg tablet 5 mg PO BID PRN pain 7 days #10 03/19/24 tabs belladonna alkaloids-opium 16.2 1 supp [place] .nightly 30 days #30 ea 04/04/24 mg-30 mg rectal suppository belladonna alkaloids-opium 16.2 1 supp [place] DAILY PRN pain 30 days 04/05/24 mg-60 mg rectal suppository #30 ea oxycodone 5 mg tablet 5 mg PO Q12H PRN pain (scale score 04/07/24 4-6) 30 days #45 tabs oxybutynin chloride 5 mg 5 mg PO DAILY 30 days #30 tabs 04/11/24 tablet,extended release 24 hr ferrous sulfate 325 mg (65 mg 325 mg PO DAILY #30 tabs 04/20/24 iron) tablet lidocaine 5 % topical patch 1 patch topical DAILY #30 ea 04/20/24 Allergies Allergy/AdvReac Type Severity Reaction Status Date / Time amoxicillin [From AUGMENTIN] Allergy Severe SEVERE Verified 04/30/24 16:05 DIARRHEA Xpuvlhb-HAU-UsA Reductase Allergy Intermediate muscle Verified 04/30/24 16:05 Inhibitor aches, [[id number] REDUCTASE cramps INHIBITOR] acetaminophen [ACETAMINOPHEN] AdvReac Severe GI upset. Verified 04/30/24 16:05 Pt confirmed NOT allergic to oxycodone NSAIDS (Non-Steroidal AdvReac Severe Gastrointestinal Verified 04/30/24 16:05 Anti-Inflamma Upset Review of Systems 2 Review of Systems: Yes all other systems are reviewed and are negative Constitutional: Constitutional: Denies fatigue and Denies fever(s) Cardiovascular: Cardiovascular: Reports chest pain and Denies dyspnea Respiratory: Respiratory: Denies cough and Denies dyspnea Gastrointestinal: Gastrointestinal: Denies nausea and Denies vomiting Musculoskeletal: Musculoskeletal: Reports back pain, Denies muscle weakness, Denies numbness, Denies radiating pain into limb and Denies tingling Neurologic: Denies numbness and Denies tingling Endocrine: Endocrine: Denies fatigue PMFSH Past Medical History Attestation statement: The following information was validated with the patient. Medical History Colostomy in place On beta morgan at home Anxiety SVT (supraventricular tachycardia) Depression Back pain History of gastrostomy tube placement Hx of ulcerative colitis Hx of cystitis History of anxiety Asthma Elevated cholesterol Surgical History History of tubal ligation History of endometrial ablation History of bladder surgery Social History Social History Household Members: Significant Other Housing: Apartment Are you a primary care transitions manager to a significant other at home: No Do you presently have visiting nurse or other home services: No Alcohol intake: former Patient Tobacco Use Status: Current everyday Tobacco user Tobacco use type: Cigarette Cigarettes Per Day: 4 Years Smoked: 22 Smoked in Last 30 Days: Yes Use of substances other than those prescribed or required for medical reasons: No Advance Directives: No Advance Directives Information Provided: Yes Do you have a plan to hurt others: No Plan Patient : No Current occupational status: disabled Physical Exam 2 Vital Signs: Vital Signs: Last Vital Signs Temp 98.8 F 04/30/24 16:03 Pulse 77 04/30/24 16:06 Resp 16 04/30/24 16:03 BP 113/57 L 04/30/24 16:03 Pulse Ox 98 04/30/24 16:03 O2 Del Method Room Air 04/30/24 16:03 BMI result Body Mass Index 19.3 Const: Other: Alert, appears very anxious, very jittery sitting up in bed, appears older than stated age Orientation/consciousness: patient oriented x3 Resp: Other: Nonlabored respiration Cardio: Other: Normal peripheral perfusion Skin: Other: Warm dry no rash Neuro: General: patient oriented x3, no focal motor deficits and CN's II-XI intact bilaterally Psych: Other: Cooperative, anxious Course Course Course Narrative: Patient is repeatedly asking for morphine, she states a muscle relaxant was not helpful. Reevaluation(s) Reevaluation #1: I discussed results with the patient, that we are clearing her from a cardiac perspective. I again offered her other options in regard to pain medication for her chronic back pain, she declines. She states she is GI upset from both acetaminophen and ibuprofen, I suggested the use of concurrent Zofran, she declines. I suggested a steroid taper, she declines. I advised she can follow up with her primary care provider for her chronic ongoing back pain. Time: 17:29 Medications Administered Discontinued Medications Generic Name Dose Route Start Last Admin Trade Name Freq PRN Reason Stop Dose Admin Ketorolac Tromethamine 15 mg 04/30/24 16:19 04/30/24 16:33 Ketorolac Tromethamine 15 Mg/Ml Vial IVPUSH 04/30/24 16:20 Not Given ONCE ONE Methocarbamol 750 mg 04/30/24 16:19 04/30/24 16:33 Methocarbamol 750 Mg Tablet PO 04/30/24 16:20 750 mg ONCE ONE Administration Medical Decision Making Medical Decision Making MDM Narrative: 59-year-old female with a history of chronic abdominal and pelvic pain, chronic back pain, interstitial cystitis, presents with acute onset chest pain prior to arrival. Patient states she developed ?crushing chest pain?, over left anterior chest. Pain was nonradiating. She received 324 mg of aspirin via EMS, the pain was transient it has since resolved. Denies associated shortness of breath, diaphoresis, nausea, vomiting. Patient also complains of ongoing back pain. She was found to have an old compression fracture in the T-spine at the beginning of April. Denies recent cough or cold symptoms no fevers. Problem: Chronic pain History: Per patient I have considered the following differential diagnoses: ACS, secondary gain, medication seeking behavior, costochondritis, viral syndrome, pneumonia Plan: As I was completing my interview with the patient, she immediately asked for pain medication after she just informed me that she has no chest pain. When asked why she needs pain meds she sts for my back, I have a compression fracture . Patient was not aware of the dye had already reviewed her chart and that she had an old compression fracture. I offered Toradol she declined, I also put in for a muscle relaxant, which she accepted. I told her there was no indication for morphine. ACS also considered, however the patient has a minimal risk factors for coronary artery disease, age is only known factor at this time, we will be screening basic labs, troponin, EKG and chest x-ray. Thought about costochondritis, however she has not had concurrent viral syndrome or fevers., likewise pneumonia less likely as well. I have independently reviewed the following tests: Labs: No leukocytosis, stable anemia, no electrolyte abnormality, troponin is negative EKG: Normal sinus rhythm, rate of 77, no ischemic changes no ectopy Chest x-ray: XR/XR chest 2V IMPRESSION: 1. No acute cardiopulmonary findings. 2. Age indeterminant compression deformities within the mid and lower thoracic spine, in the region of T8 and T12. No discrete underlying lesion; however, evaluation is limited. There is concern for acute fracture, dedicated thoracic spine CT or MRI could help further evaluate. Electronically signed by: Bassem Muhammad MD 04/30/2024 04:57 PM [facility] Lab Data 04/30/24 16:38 04/30/24 16:38 Labs: Lab Results 04/30/24 Range/Units 16:38 WBC 5.8 (4.8-10.8) X10*3/uL RBC 3.87 L (4.20-5.50) X10*6/uL Hgb 8.8 L (12.0-16.0) g/dl Hct 28.6 L (37.0-47.0) % MCV 73.9 L (80.0-98.0) fL MCH 22.7 L (27.0-33.0) pg MCHC 30.8 L (31.0-35.0) g/dl RDW 18.0 H (11.0-16.0) % Plt Count 223 (160-400) X10*3/uL MPV 9.5 (9.4-12.3) fL Immature Gran % (Auto) 0.3 (0.0-0.4) % Neut % (Auto) 48.1 (45-73) % Lymph % (Auto) 39.2 (20-40) % Murray % (Auto) 9.6 (2-11) % Eos % (Auto) 1.9 (0-4) % Baso % (Auto) 0.9 (0-2) % Lymph # (Auto) 2.3 (1.2-4.9) X10*3/uL Murray # (Auto) 0.6 (0.1-1.2) X10*3/uL Eos # (Auto) 0.1 (0.0-0.4) X10*3/uL Baso # (Auto) 0.1 (0.0-0.2) X10*3/uL Abs Immat Gran (auto) 0.02 (0.00-0.03) X10*3/uL Absolute Neuts (auto) 2.8 (2.0-8.3) x10*3/uL Absolute Nucleated RBC 0.000 (0.0-0.012) X10*3/uL Nucleated RBC % (auto) 0.0 (0.0-0.2) /100WBC Sodium 138 (135-145) mmol/L Potassium 3.6 (3.3-5.1) mmol/L Chloride 105 (96-108) mmol/L Carbon Dioxide 23 (22-29) mmol/L Anion Gap 14 (12-20) BUN 16 (9-16) mg/dL Creatinine 0.79 (0.5-1.4) mg/dL Estim Creat Clear Calc 63.7 Estimated GFR > 60 Random Glucose 93 (60-115) mg/dL Calcium 9.1 (8.4-10.2) mg/dL Magnesium 1.9 (1.6-2.6) mg/dL Total Bilirubin 0.1 (0.0-1.0) mg/dL AST 17 (5-31) U/L ALT < 6 (0-31) U/L Troponin I High Sens < 2.7 (<3.5-17.0) ng/L B-Natriuretic Peptide 39 (<100) pg/mL Total Protein 6.3 L (6.5-8.0) g/dL Albumin 3.4 L (3.5-5.0) g/dL Lipase 17 (8-78) U/L Discharge Plan Discharge Clinical Impression: Chest pain Patient Disposition: Home, Self-Care Instructions: Noncardiac Chest Pain (ED) Additional Instructions: All of your screening labs including a cardiac enzymes were normal. There were no concerning changes on her EKG in your chest x-ray was clear. Your discomfort today is not associated with your heart. Follow up with your primary care provider within the next few weeks for a recheck, you can discuss pain management options with your doctor at that time for your ongoing chronic back pain. Prescriptions: No Action phenazopyridine [Pyridium] 200 mg tablet 200 mg PO TID PRN (Reason: urinary burning) Qty: 20 1RF Rx Instructions: use with food oxycodone 5 mg tablet 5 mg PO BID PRN (Reason: pain) 7 Days Qty: 10 0RF Rx Instructions: Partial Fill upon patient request. May use 1-2 tabs BID belladonna alkaloids-opium 16.2-30 mg suppository 1 supp [place] .nightly 30 Days Qty: 30 0RF Rx Instructions: Partial Fill upon patient request.. belladonna alkaloids-opium 16.2-60 mg suppository 1 supp NJ DAILY PRN (Reason: pain) 30 Days Qty: 30 0RF Rx Instructions: Partial Fill upon patient request. oxycodone 5 mg tablet 5 mg PO Q12H PRN (Reason: pain (scale score 4-6)) 30 Days Qty: 45 0RF Rx Instructions: Partial Fill upon patient request. oxybutynin chloride 5 mg tablet extended release 24hr 5 mg PO DAILY 30 Days Qty: 30 1RF albuterol sulfate [ProAir HFA] 90 mcg/actuation Hfa Aerosol Inhaler 2 puff INHALATION Q4-6H PRN (Reason: Shortness Of Breath) trazodone 50 mg tablet 50 mg PO BEDTIME lidocaine 5 % adhesive patch,medicated 1 patch topical DAILY Qty: 30 0RF Rx Instructions: leave on most painful area for up to 12 hrs ferrous sulfate 325 mg (65 mg iron) tablet 325 mg PO DAILY Qty: 30 0RF sertraline 25 mg tablet 25 mg PO DAILY adalimumab 40 mg/0.4 mL pen injector kit 40 mg subcut .Q 14 DAYS metoprolol succinate 25 mg tablet extended release 24 hr 12.5 mg PO DAILY clonazepam 1 mg tablet 1 mg PO BEDTIME omeprazole 20 mg capsule,delayed release(DR/EC) 20 mg PO DAILY ondansetron 4 mg tablet,disintegrating 4 mg PO BID PRN (Reason: nausea/vomiting) lorazepam 0.5 mg tablet PO trazodone 100 mg tablet 100 mg PO BEDTIME buprenorphine-naloxone 8-2 mg film 0 film sublingual Print Language: Sami
[2024-04-30 16:43] LABS: MANUAL DIFF FLAG NO
[2024-04-30 16:46] LABS: Basophils Absolute Auto 0.1 X10*3/uL (0.0-0.2); Basophils Percent Auto 0.9 % (0-2); Eosinophils Absolute Auto 0.1 X10*3/uL (0.0-0.4); Eosinophils Percent Auto 1.9 % (0-4); Hematocrit 28.6 % (37.0-47.0); Hemoglobin 8.8 g/dl (12.0-16.0); Imm Gran Abs Auto 0.02 X10*3/uL (0.00-0.03); Imm Gran Pct Auto 0.3 % (0.0-0.4); Lymphocytes Absolute Auto 2.3 X10*3/uL (1.2-4.9); Lymphocytes Percent Auto 39.2 % (20-40); Mean Corpuscular HGB Conc 30.8 g/dl (31.0-35.0); Mean Corpuscular Hemoglobin 22.7 pg (27.0-33.0); Mean Corpuscular Volume 73.9 fL (80.0-98.0); Mean Platelet Volume 9.5 fL (9.4-12.3); Monocytes Absolute Auto 0.6 X10*3/uL (0.1-1.2); Monocytes Percent Auto 9.6 % (2-11); Neutrophils Absolute Auto 2.8 x10*3/uL (2.0-8.3); Neutrophils Percent Auto 48.1 % (45-73); Platelet Count 223 X10*3/uL (160-400); Red Blood Count 3.87 X10*6/uL (4.20-5.50); White Blood Count 5.8 X10*3/uL (4.8-10.8)
[2024-04-30 17:16] LABS: B Type Natriuretic Peptide 39 pg/mL (<100)
[2024-04-30 17:17] LABS: Alanine Aminotransferase < 6 U/L (0-31); Albumin Level 3.4 g/dL (3.5-5.0); Anion Gap 14 (12-20); Aspartate Amino Transferase 17 U/L (5-31); Bilirubin Total 0.1 mg/dL (0.0-1.0); Blood Urea Nitrogen 16 mg/dL (9-16); Calcium 9.1 mg/dL (8.4-10.2); Carbon Dioxide 23 mmol/L (22-29); Chloride 105 mmol/L (96-108); Creatinine Clr Calc Pharmacy 63.7; Estimated Glomerular Filt Rate > 60; Glucose Random 93 mg/dL (60-115); Lipase 17 U/L (8-78); Magnesium 1.9 mg/dL (1.6-2.6); Potassium 3.6 mmol/L (3.3-5.1); Sodium 138 mmol/L (135-145); Total Protein 6.3 g/dL (6.5-8.0)
[2024-04-30 17:24] LABS: Troponin-I High Sensitivity < 2.7 ng/L (<3.5-17.0)
[2024-04-30 17:29] LABS: Alkaline Phosphatase 113 U/L (39-117)
[2024-04-30 17:53] VITALS: BP 115/70; PULSE 77; RESP 21; O2SAT 100
[2024-04-30 18:28] VITALS: BP 115/70; PULSE 77; RESP 21; TEMP -17.7; TEMP 0; O2SAT 100
== END 2024-04-30 18:29 | disposition home or self-care (01) ==
PROVIDERS: Physician Assistant Medical; Emergency Provider Emergency Medicine Emergency Medical Services; PCP Internal Medicine
DX: R07.89 Other chest pain (principal); R10.2 Pelvic and perineal pain; M54.50 Low back pain, unspecified; F17.210 Nicotine dependence, cigarettes, uncomplicated; Z79.899 Other long term (current) drug therapy
CPT/HCPCS: 36415; 71046; 80053; 83690; 83735; 83880; 84484; 85025; 93005; 96374; 99284; 99285

== ENCOUNTER → 2024-04-30 15:51 | Outpatient (BNV) | payer OTHER, SELFPAY | PROVIDERS: Emergency Provider Emergency Medicine Emergency Medical Services; PCP Internal Medicine; Visit Provider Internal Medicine Cardiovascular Disease | DX: R07.9 Chest pain, unspecified (principal) | CPT/HCPCS: 93010 ==

== ENCOUNTER 2024-05-21 12:02 | Emergency (ER) | payer OTHER, SELFPAY ==
[2024-05-21 12:06] VITALS: BP 100/55; PULSE 66; O2SAT 100
[2024-05-21 12:11] VITALS: BP 122/68; PULSE 81; RESP 16; TEMP 37.1; O2SAT 100; BMI 20.9
--- NOTE | 2024-05-21 12:22 | PC.NURSE ---
patient changed into hospital attire, demanding pain medication. demanding to see
--- NOTE | 2024-05-21 13:03 | ED_ITS ---
HPI - General Adult General Chief complaint: General Medical Stated complaint: LEG PAIN AND TINGLING Time Seen by Provider: 05/21/24 13:02 Source: patient Mode of arrival: ambulatory Limitations: no limitations History of Present Illness ED Provider: Dr. Aaron Naqvi HPI narrative: 59-year-old female with a history of chronic abdominal and pelvic pain, chronic back pain, interstitial cystitis, ulcerative colitis, caused presents with severe lower back pain and numbness to her lower extremities here the patient states that she has been having numbness in her lower extremities for years but it has gotten progressively worse. She states she does have an appointment to see a neurologist on 3 days. She states that she was concerned that the numbness is gotten worse but she denied weakness. The patient's he was also complaining of severe, sharp lower back pain which is 10/10. She denied fever, chills, nausea, vomiting, diarrhea, frequency, urgency or dysuria. Related Data Home Medications ?Medication ?Instructions ?Recorded ?Confirmed albuterol sulfate 90 mcg/actuation 2 puff inhalation Q4-6H PRN 04/25/20 03/09/24 aerosol inhaler (ProAir HFA) Shortness Of Breath adalimumab 40 mg/0.4 mL 40 mg subcut .Q 14 DAYS 06/21/20 03/09/24 subcutaneous pen kit clonazepam 1 mg tablet 1 mg PO BEDTIME 08/08/21 03/09/24 metoprolol succinate 25 mg 12.5 mg PO DAILY 08/08/21 03/09/24 tablet,extended release 24 hr omeprazole 20 mg capsule,delayed 20 mg PO DAILY 11/03/21 03/09/24 release ondansetron 4 mg disintegrating 4 mg PO BID PRN nausea/vomiting 11/17/22 03/09/24 tablet trazodone 50 mg tablet 50 mg PO BEDTIME 10/15/23 03/09/24 sertraline 25 mg tablet 25 mg PO DAILY 03/13/24 03/13/24 lorazepam 0.5 mg tablet mg PO 04/07/24 trazodone 100 mg tablet 100 mg PO BEDTIME 04/07/24 Previous Rx's ?Medication ?Instructions ?Recorded phenazopyridine 200 mg tablet 200 mg PO TID PRN urinary burning 01/29/24 (Pyridium) #20 tabs oxycodone 5 mg tablet 5 mg PO BID PRN pain 7 days #10 03/19/24 tabs belladonna alkaloids-opium 16.2 1 supp [place] .nightly 30 days #30 ea 04/04/24 mg-30 mg rectal suppository belladonna alkaloids-opium 16.2 1 supp [place] DAILY PRN pain 30 days 04/05/24 mg-60 mg rectal suppository #30 ea ferrous sulfate 325 mg (65 mg 325 mg PO DAILY #30 tabs 04/20/24 iron) tablet lidocaine 5 % topical patch 1 patch topical DAILY #30 ea 04/20/24 oxycodone 5 mg tablet 5 mg PO Q12H PRN pain (scale score 05/04/24 4-6) 30 days #60 tabs oxybutynin chloride 5 mg 5 mg PO DAILY 30 days #30 tabs 05/15/24 tablet,extended release 24 hr Allergies Allergy/AdvReac Type Severity Reaction Status Date / Time amoxicillin [From AUGMENTIN] Allergy Severe SEVERE Verified 05/21/24 12:13 DIARRHEA Slvuded-ESC-AtN Reductase Allergy Intermediate muscle Verified 05/21/24 12:13 Inhibitor aches, [[id number] REDUCTASE cramps INHIBITOR] acetaminophen [ACETAMINOPHEN] AdvReac Severe GI upset. Verified 05/21/24 12:13 Pt confirmed NOT allergic to oxycodone NSAIDS (Non-Steroidal AdvReac Severe Gastrointestinal Verified 05/21/24 12:13 Anti-Inflamma Upset Review of Systems Review of Systems: Yes all other systems are reviewed and are negative PMFSH Past Medical History Medical History Colostomy in place On beta morgan at home Anxiety SVT (supraventricular tachycardia) Depression Back pain History of gastrostomy tube placement Hx of ulcerative colitis Hx of cystitis History of anxiety Asthma Elevated cholesterol Surgical History History of tubal ligation History of endometrial ablation History of bladder surgery Social History Social History Household Members: Significant Other Housing: Apartment Are you a primary home care specialist to a significant other at home: No Do you presently have visiting nurse or other home services: No Alcohol intake: former Patient Tobacco Use Status: Current everyday Tobacco user Tobacco use type: Cigarette Cigarettes Per Day: 4 Years Smoked: 22 Smoked in Last 30 Days: No Advance Directives: No Advance Directives Information Provided: Yes Do you have a plan to hurt others: No Plan Current occupational status: disabled Physical Exam ED Vital Signs: Vital Signs - 24 hr 05/21/24 12:11 Temperature 98.7 F Pulse Rate 81 Respiratory Rate 16 Blood Pressure 122/68 Pulse Oximetry 100 Oxygen Delivery Method Room Air BMI result Body Mass Index 20.9 Vital signs were normal Exam: General: Awake, alert in no distress Head: Normocephalic, atraumatic EENT: PERRL, Lids normal, sclera normal, conjunctiva normal, nose normal , ears normal, throat without erythema or exudates Neck: Supple, no adenopathy Lung: breath sounds symmetric, no wheezing, rales or rhonchi Chest: symmetric movement, nontender Heart: regular rate and rhythm, normal S1, S2 no murmurs or rubs Abdomen: soft, non-tender, nondistended, normal bowel sounds Back: Patient was tenderness palpation of her lumbar sacral vertebrae as well as tenderness palpation of her paraspinal muscles on the left greater than the right, no spasm, negative straight leg raises bilaterally Extremities: no deformities, moves all extremities symmetrically Neuro: General Awake, alert, oriented, normal speech Cranial nerves: cranial nerves intact Extremities: Able to hold extremities up against gravity, normal strength against resistance Medical Decision Making Medical Decision Making MDM Narrative: 59-year-old female with a history of chronic abdominal and pelvic pain, chronic back pain, interstitial cystitis, ulcerative colitis, colostomy, presents with severe lower back pain and numbness to her lower extremities here the patient states that she has been having numbness in her lower extremities for years but it has gotten progressively worse. Patient states that her back pain is 10/10 and not relieved by her medications at home. Vital signs were normal. Neurologic exam was nonfocal. Patient does have tenderness palpation of her vertebrae as well as her paraspinal muscles in the lumbar sacral region, she had negative straight leg raises bilaterally and neurologic exam was nonfocal Differential diagnosis: ?Includes but is not limited to spinal stenosis, disc disease, peripheral neuropathy, chronic pain Course: The patient is seen here frequently for multiple complaints including lower back pain. At this time I do not think that she needs any imaging or laboratory evaluation. The patient was given morphine 4 mg IM. She was advised to continue taking her medications as prescribed by your providers and to keep her appointment with the neurologist for further evaluation. Admission/Observation Consideration of admission/observation: Escalation of care including admission/observation considered (No) Chronic Conditions Patient?s care impacted by: Other (Ulcerative colitis, chronic) Discharge Plan Discharge Clinical Impression: Acute lumbar back pain Patient Disposition: Home, Self-Care Additional Instructions: Continue taking your medications as prescribed by your providers Keep your appointment with your neurologist Follow-up with your doctor in 2 days. Please return to the emergency department if your symptoms get worse or if you develop any symptoms that are concerning to you. Prescriptions: No Action phenazopyridine [Pyridium] 200 mg tablet 200 mg PO TID PRN (Reason: urinary burning) Qty: 20 1RF Rx Instructions: use with food oxycodone 5 mg tablet 5 mg PO BID PRN (Reason: pain) 7 Days Qty: 10 0RF Rx Instructions: Partial Fill upon patient request. May use 1-2 tabs BID belladonna alkaloids-opium 16.2-30 mg suppository 1 supp [place] .nightly 30 Days Qty: 30 0RF Rx Instructions: Partial Fill upon patient request.. belladonna alkaloids-opium 16.2-60 mg suppository 1 supp [place] DAILY PRN (Reason: pain) 30 Days Qty: 30 0RF Rx Instructions: Partial Fill upon patient request. oxycodone 5 mg tablet 5 mg PO Q12H PRN (Reason: pain (scale score 4-6)) 30 Days Qty: 60 0RF Rx Instructions: Partial Fill upon patient request. oxybutynin chloride 5 mg tablet extended release 24hr 5 mg PO DAILY 30 Days Qty: 30 1RF albuterol sulfate [ProAir HFA] 90 mcg/actuation Hfa Aerosol Inhaler 2 puff INHALATION Q4-6H PRN (Reason: Shortness Of Breath) trazodone 50 mg tablet 50 mg PO BEDTIME lidocaine 5 % adhesive patch,medicated 1 patch topical DAILY Qty: 30 0RF Rx Instructions: leave on most painful area for up to 12 hrs ferrous sulfate 325 mg (65 mg iron) tablet 325 mg PO DAILY Qty: 30 0RF sertraline 25 mg tablet 25 mg PO DAILY adalimumab 40 mg/0.4 mL pen injector kit 40 mg subcut .Q 14 DAYS metoprolol succinate 25 mg tablet extended release 24 hr 12.5 mg PO DAILY clonazepam 1 mg tablet 1 mg PO BEDTIME omeprazole 20 mg capsule,delayed release(DR/EC) 20 mg PO DAILY ondansetron 4 mg tablet,disintegrating 4 mg PO BID PRN (Reason: nausea/vomiting) lorazepam 0.5 mg tablet PO trazodone 100 mg tablet 100 mg PO BEDTIME Print Language: Luxembourgish
[2024-05-21] MEDS: Morphine Sulfate 4 MG/ML CARTRIDGE IM (13:55)
[2024-05-21 14:01] VITALS: PULSE 65; RESP 14; TEMP 36.1; O2SAT 98
[2024-05-21 14:02] VITALS: BP 122/68; PULSE 65; RESP 14; TEMP 36.1; O2SAT 98
--- NOTE | 2024-05-21 14:02 | PC.NURSE ---
patient family called, on their way to pick patient up for d/c.
--- OUTSIDE RECORDS SUMMARY | 2024-05-24 12:06 | XMS_ITS | Continuity of Care Document ---
Author Organization [facility] Sarath lt Address [address] [place] [address]- Care Team Providers Care Sleeve Presser Operator Name Role Phone Sharlene STEWART, Brett Araujo Primary Care Physician Encounter [facility] Date(s): 04/06/24 - 05/06/24 [facility] Adult [address] [place] [address]- Encounter Type: Triage Allergies, Adverse Reactions, Alerts Substance Criticality Severity Reaction Reaction Severity Status ibuprofen 1 Diarrhea Nausea Active acetaminophen 2, 3 Unknown Nausea Resolved aspirin stomach problems Active simvastatin Unknown Aching muscles Active Percocet 7.5/325 Unable to assess criticality Persistent Mild Nausea Active atorvastatin unknown Active Augmentin MOUTH SORES Active Tylenol irritated stomach Active 1GI issues 2pt states well I take it for fevers. confirmed with prior to giving 3GI issues Immunizations Given and Recorded Vaccine Date Status Refusal Reason influenza virus vaccine, inactivated 03/17/24 Give n influenza virus vaccine, inactivated 05/12/23 Give n influenza virus vaccine, inactivated 02/23/20 Leno rded influenza virus vaccine, inactivated 03/09/19 Leno rded influenza virus vaccine, inactivated 03/16/18 Give n influenza virus vaccine, inactivated 1 03/06/17 Re corded influenza virus vaccine, inactivated 2 03/25/16 Re corded influenza virus vaccine, inactivated 02/17/15 Leno rded influenza virus vaccine, inactivated 03/22/14 Leno rded influenza virus vaccine, inactivated 3 03/14/13 Gi opal influenza virus vaccine, inactivated 05/03/08 Give n pneumococcal 20-valent conjugate vaccine 02/09/23 Given pneumococcal 20-valent conjugate vaccine 01/18/23 Recorded [id number] 12y+ bivalent booster vax 01/27/23 Recorded tetanus-diphtheria toxoids (Td) 07/16/21 Given SARS-CoV-2 mRNA ([id number]-[id number]) vax 07/16/21 Given Influenza Virus Vaccine (oldterm) 03/06/21 Recorde d Influenza Virus Vaccine (oldterm) 03/20/20 Recorde d Influenza Virus Vaccine (oldterm) 03/13/19 Recorde d Influenza Virus Vaccine (oldterm) 4 07/26/09 Given Influenza Virus Vaccine (oldterm) 5 04/05/07 Given SARS-CoV-2 (COVID-19) mRNA BNT-162b2 vac 10/03/20 Recorded SARS-CoV-2 (COVID-19) mRNA BNT-162b2 vac 09/12/20 Recorded zoster vaccine, inactivated 08/06/20 Recorded zoster vaccine, inactivated 07/18/20 Recorded zoster vaccine, inactivated 06/18/20 Recorded zoster vaccine, inactivated 05/23/20 Recorded tetanus/diphtheria/pertussis, acel(Tdap) 6 03/29/12 Given Fluarix (oldterm) 03/29/12 Given Tet/Diphth/Acel, Pertussis (oldterm) 11/28/07 Give n Influenza Inactive (IM) (oldterm) 7 04/07/06 Given Pneumococcal Vacc (oldterm) 10/27/03 Given Tetanus Toxoid Vaccine (oldterm) 06/14/97 Given 1Result Comment: [03/08/2017] [facility] [place] 2Location [facility] 3Admin Note: [facility] 4Admin Note: per pt [facility]cvd [facility] 5Admin Note: given in clinic 6Admin Note: WING 7Admin Note: clinic ronnie Medications Albuterol (Eqv-ProAir HFA) 90 mcg/inh inhalation aerosol 2 puffs, Inhalation, Every 6 hours, PRN NEEDED FOR WHEEZING, # 8.5 each, 2 Refills, Maintenance,04/03/24 8:24:00 AM EDT, [facility], 25, INHALE 2 PUFFS BY MOUTH EVERY 6 HOURS NEEDED FOR WHEEZING, 163, cm, 03/24/24 11:04:00 EDT, Height, 48.5, kg, 03/22/24 12:35:00 EDT, Dry Weight Start Date: 04/03/24 Status: Ordered Quantity: 8.5 Unit: each Repeat number: 1 Cavilon Advanced skin protectant 0.7ml #5015 Cavilon Advanced skin protectant 0.7ml #5015, See Instructions, # 1 each, Refills 11, Tot. Refills 11, Maintenance, use as needed for ostomy care. Dx ileostomy Z 93.2, 03/01/24 11:03:00 AM EDT, Compound Start Date: 03/01/24 Status: Ordered Quantity: 1.0 Unit: each Repeat number: 12 Goose neck lamp Goose neck lamp, See Instructions, # 1 each, Refills 0, Tot. Refills 0, Maintenance, use for illumination during stoma care nd ostomy appliance changes. dx = ileostomy / Z93.2, 02/11/24 2:20:00 PM EDT, Supply Start Date: 02/11/24 Status: Ordered Quantity: 1.0 Unit: each Repeat number: 1 LORazepam 0.5 mg oral tablet 1 tablet = 0.5 mg, By Mouth, 3 times a day, # 90 tablet, 5 Refills, Maintenance, 03/17/24 3:59:00 PMEDT, Tablet, [facility]/pharmacy #[id number], Partial fill upon patient request if the prescription is for a schedule II opioid drug., 163, cm, 03/17/24 15:48:00 EDT, Height, 49, kg, 02/25/24 16:06:00 EDT, Dry Weight Start Date: 03/17/24 Status: Ordered Quantity: 90.0 Unit: tablet Repeat number: 6 Metoprolol Succinate ER 25 mg oral tablet, extended release See Instructions, TAKE 1/2 OF A TABLET BY MOUTH DAILY FOR 30 DAYS, # 15 tablet, Refills 11, Tot. Refills 11, Maintenance, 03/17/24 4:11:00 PM EDT, Instructions Replace Required Details, Route to Pharmacy Electronically, [facility]/pharmacy #[id number], 163, cm, 03/17/24 15:48:00 EDT, Height, 49, kg, 02/25/24 16:06:00 EDT, Dry Weight Start Date: 03/17/24 Status: Ordered Quantity: 15.0 Unit: tablet Repeat number: 12 Omeprazole = 20 mg, By Mouth, Daily, 0 Refills, Maintenance, 02/01/24 7:40:00 AM EDT, Partial fill upon patientrequest if the prescription is for a schedule II opioid drug. Start Date: 02/01/24 Status: Ordered Repeat number: 1 sertraline 50 mg oral tablet 1 tablet = 50 mg, By Mouth, Daily, # 30 tablet, 11 Refills, Maintenance, 03/17/24 4:10:00 PM EDT, Tablet, [facility]/pharmacy #1230, Partial fill upon patient request if the prescription is for a schedule IIopioid drug., 163, cm, 03/17/24 15:48:00 EDT, Height, 49, kg, 02/25/24 16:06:00 EDT, Dry Weight Start Date: 03/17/24 Stop Date: 03/12/25 Status: Ordered Quantity: 30.0 Unit: tablet Repeat number: 12 Suboxone 8 mg-2 mg Sublingual Film 1 film, Sublingual, 2 times a day, dissolve under the tongue, # 14 film, 0 Refills, Maintenance, 04/06/24 10:57:00 AM EDT, Film, [facility]/pharmacy #1230, Partial fill upon patient request if the prescription is for a schedule II opioid drug., 1 film Sublingual 2 times a day,x7 days,Instr:dissolve under the tongue, 163, cm, 04/06/24 9:15:00 EDT, Height, 48.6, kg, 04/06/24 9:15:00 EDT, Dry Weight Start Date: 04/06/24 Stop Date: 04/13/24 Status: Ordered Quantity: 14.0 Unit: film Repeat number: 1 traZODone 100 mg oral tablet 1, tablet, By Mouth, Daily at bedtime, # 30 tablet, Refills 11, Tot. Refills 11, Maintenance, 03/17/24 4:10:00 PM EDT, Route to Pharmacy Electronically, [facility]/pharmacy #1230, 163, cm, 03/17/24 15:48:00 EDT, Height, 49, kg, 02/25/24 16:06:00 EDT, Dry Weight Start Date: 03/17/24 Status: Ordered Quantity: 30.0 Unit: tablet Repeat number: 12 Problem List Condition Confirmation Course Effective Dates Status Health Status Informant Abnormal weight loss Confirmed Active Anemia of chronic disease Confirmed Active Anorexia nervosa Confirmed Active Anxiety Confirmed Active Weakness generalized Confirmed Active Asthma 1 Confirmed Active IC (interstitial cystitis) Confirmed Active C. difficile colitis Confirmed Active Macular degeneration Confirmed Active Dry skin dermatitis Confirmed Active Fibromyalgia Confirmed Active Folic acid deficiency Confirmed Active History of insomnia Confirmed Active History of ulcerative colitis Confirmed Active Hypercholesterolemia Confirmed Active Ileostomy in place Confirmed Active Immunosuppression due to drug therapy Confirmed Active Irritable bowel syndrome Confirmed Active Generalized joint pain Confirmed Active Low back pain Confirmed Active Depression, major, single episode, moderate Confirmed Active Severe malnutrition Confirmed Active Onychomycosis Confirmed Active Orthostatic hypotension Confirmed Active Peripheral neuropathy Confirmed Active Fatty liver Confirmed Active SVT (supraventricular tachycardia) Confirmed Active Tobacco abuse Confirmed Active Tremor Confirmed Active Ulcerative colitis Confirmed Active Underweight Confirmed Active 1pft c/w mild obstruction, no bronchodilater response Social History Social History Type Response Tobacco Use: 4 or less cigar ettes(less than 1/4 pack)/day in last 30 days. Other: Half a pack of cigarettes daily since age 25.. Sex Sex Representation Female (finding) Patient Care team information Care Team Personnel Name: Yoselyn Mccormick RN Position: [facility] RN Member Role: Primary Care Nurse Name: Rand Baez RN Position: [facility] RN Member Role: Primary Care Nurse Name: Bethany Soares RN Position: [facility] RN Member Role: Primary Care Nurse Name: Pam Harmon RN Position: [facility] RN Member Role: Primary Care Nurse Name: Graciela Harmon RN Position: [facility] RN Member Role: Primary Care Nurse Name: Stella Ramos RN Position: [facility] RN Member Role: Primary Care Nurse Name: Brett Su MD Position: [facility] Physician - Primary Care Member Role: PCP Address: [address] [place] [phone]- Telecom: Name: Vangie Chun RN Position: [facility] RN Member Role: Primary Care Nurse Name: Leidy Gray RN Position: [facility] RN Member Role: Primary Care Nurse Name: Jimbo Boswell RN Position: [facility] RN Member Role: Primary Care Nurse Name: James Alvarez RN Position: [facility] RN Member Role: Primary Care Nurse Name: Milena Rios RN Position: [facility] RN Member Role: Primary Care Nurse Name: Oralia Ashley RN Position: [facility] RN Member Role: Primary Care Nurse Name: Phyllis Holman RN Position: [facility] RN Member Role: Primary Care Nurse Name: Raya Jewell RN Position: [facility] RN Member Role: Primary Care Nurse Name: Harini Aponte RN Position: [facility] RN Member Role: Primary Care Nurse Name: Dorita Brock RN Position: [facility] RN Member Role: Primary Care Nurse Name: Nya Liu RN Position: [facility] RN Member Role: Primary Care Nurse Name: Geri Galvan RN Position: [facility] RN Member Role: Primary Care Nurse Name: Eri Mars RN Position: [facility] RN Member Role: Primary Care Nurse Name: Lula Velasco RN Position: [facility] RN Member Role: Primary Care Nurse Name: Guerline Benavides RN Position: [facility] RN Member Role: Primary Care Nurse Name: Fatimah Galaviz RN Position: [facility] ED RN W/OE and Tasks Member Role: Primary Care Nurse Care Team Related Persons Name: TOÑITOREFUGIOKIAN Name: MARTA LEWIS Name: GUERRERO AGUILAR Name: ITALO CORNEJO Insurance Providers Guarantor name: NICOLAS [facility] Health Plan Information #: 1 Payer: [facility] CARE ALLIANCE/ONE CARE Member Number: NA Policy Number: NA Group Number: NA
--- OUTSIDE RECORDS SUMMARY | 2024-05-24 12:06 | XMS_ITS | Continuity of Care Document ---
Author Organization [facility] Sarath lt Address [address] [place] [id number]- Care Team Providers Care Rn Manager Name Role Phone Sharlene STEWART, Brett Araujo Primary Care Physician [phone] Encounter [facility] Date(s): 04/03/24 - 05/03/24 [facility] Adult [address] [place] [address]- Encounter Type: Triage Allergies, Adverse Reactions, Alerts Substance Criticality Severity Reaction Reaction Severity Status ibuprofen 1 Diarrhea Nausea Active acetaminophen 2, 3 Unknown Nausea Resolved aspirin stomach problems Active simvastatin Unknown Aching muscles Active atorvastatin unknown Active Augmentin MOUTH SORES Active Tylenol irritated stomach Active Percocet 7.5/325 Unable to assess criticality Persistent Mild Nausea Active 1GI issues 2pt states well I [...] Given pneumococcal 20-valent conjugate vaccine 01/18/23 Recorded [id number] 12y+ bivalent booster vax 01/27/23 Recorded tetanus-diphtheria toxoids (Td) 07/16/21 Given SARS-CoV-2 mRNA (qpjiofb-ekoj-nevqo) vax 07/16/21 Given Influenza Virus Vaccine (oldterm) [...] Given 1Result Comment: [03/08/2017] [facility] [place] 2Location History[facility] 3Admin Note: [facility] 4Admin Note: per pt rcvd [facility] 5Admin Note: given in clinic 6Admin Note: [facility] 7Admin Note: clinic ronnie Medications Albuterol (Eqv-ProAir HFA) 90 mcg/inh inhalation aerosol 2 puffs, Inhalation, Every 6 hours, PRN NEEDED FOR WHEEZING, # 8.5 each, 2 Refills, Maintenance,04/03/24 8:24:00 AM EDT, [facility] STORE [id number], 25, INHALE 2 PUFFS BY MOUTH EVERY [...] 5 Refills, Maintenance, 03/17/24 3:59:00 PMEDT, Tablet, [facility]/pharmacy #1230, Partial fill upon patient request if [...] Replace Required Details, Route to Pharmacy Electronically, [facility]/pharmacy #1230, 163, cm, 03/17/24 15:48:00 EDT, Height, [...] Refills, Maintenance, 03/17/24 4:10:00 PM EDT, Tablet, [facility]/pharmacy #1230, Partial fill upon patient request if [...] Refills, Maintenance, 04/06/24 10:57:00 AM EDT, Film, [facility]/pharmacy #1230, Partial fill upon patient request if [...] 4:10:00 PM EDT, Route to Pharmacy Electronically, [facility]/pharmacy #1230, 163, cm, 03/17/24 15:48:00 EDT, Height, [...] Team Personnel Name: Yoselyn Mccormick RN Position: [facility] RN Member Role: Primary Care Nurse Name: Rand Baez RN Position: [facility] RN Member Role: Primary Care Nurse Name: Bethany Soares RN Position: [facility] RN Member Role: Primary Care Nurse Name: Pam Harmon RN Position: [facility] RN Member Role: Primary Care Nurse Name: Graciela Harmon RN Position: [facility] RN Member Role: Primary Care Nurse Name: Stella Ramos RN Position: [facility] RN Member Role: Primary Care Nurse Name: Brett Su MD Position: [facility] Physician - Primary Care Member Role: PCP Address: [address] [place] [phone]- Telecom: Name: Vangie Chun RN Position: [facility] RN Member Role: Primary Care Nurse Name: Leidy Gray RN Position: [facility] RN Member Role: Primary Care Nurse Name: Jimbo Boswell RN Position: [facility] RN Member Role: Primary Care Nurse Name: James Alvarez RN Position: [facility] RN Member Role: Primary Care Nurse Name: Milena Rios RN Position: [facility] RN Member Role: Primary Care Nurse Name: Oralia Ashley RN Position: [facility] RN Member Role: Primary Care Nurse Name: Phyllis Holman RN Position: [facility] RN Member Role: Primary Care Nurse Name: Raya Jewell RN Position: [facility] RN Member Role: Primary Care Nurse Name: Harini Aponte RN Position: [facility] RN Member Role: Primary Care Nurse Name: Dorita Brock RN Position: [facility] RN Member Role: Primary Care Nurse Name: Nya Liu RN Position: [facility] RN Member Role: Primary Care Nurse Name: Geri Galvan RN Position: [facility] RN Member Role: Primary Care Nurse Name: Eri Mars RN Position: [facility] RN Member Role: Primary Care Nurse Name: Lula Velasco RN Position: [facility] RN Member Role: Primary Care Nurse Name: Guerline Benavides RN Position: [facility] RN Member Role: Primary Care Nurse Name: Fatimah Galaviz RN Position: [facility] ED RN W/OE and Tasks Member Role: Primary Care Nurse Care Team Related Persons Name: TOÑITOREFUGIOKIAN Name: MARTA LEWIS Name: GUERRERO AGUILAR Name: ITALO CORNEJO Insurance Providers Guarantor name: NICOLAS [facility] Health Plan Information #: 1 Payer: [facility] CARE ALLIANCE/ONE CARE Member Number: NA Policy Number: NA Group Number: NA
--- OUTSIDE RECORDS SUMMARY | 2024-05-24 12:06 | XMS_ITS | Continuity of Care Document ---
Author Organization [facility] Address [address] [place] [address]- Care Team Providers Care Instructional Material Director Name Role Phone Sharlene STEWART, Brett Araujo Primary Care Physician Encounter [facility] Date(s): 04/03/24 - 05/03/24 [facility] [address] [place] [id number]- Encounter Type: Triage Allergies, Adverse Reactions, Alerts Substance Criticality Severity Reaction Reaction Severity Status ibuprofen 1 Diarrhea Nausea Active aspirin stomach problems Active atorvastatin unknown Active Augmentin MOUTH SORES Active acetaminophen 2, 3 Unknown Nausea Resolved simvastatin Unknown Aching muscles Active Percocet 7.5/325 Unable to assess criticality Persistent Mild Nausea Active Tylenol irritated stomach Active 1GI issues [...] Given pneumococcal 20-valent conjugate vaccine 01/18/23 Recorded [id number] 12y+ bivalent booster vax 01/27/23 Recorded tetanus-diphtheria toxoids (Td) 07/16/21 Given SARS-CoV-2 mRNA ([id number]-[id number]) vax 07/16/21 Given Influenza Virus Vaccine (oldterm) [...] Given 1Result Comment: [03/08/2017] [facility] [place] 2Location History: [facility] 3Admin Note: [facility] 4Admin Note: per pt [facility]cvd [facility] 5Admin Note: given in clinic 6Admin Note: [facility] 7Admin Note: clinic ronnie Medications Albuterol (Eqv-ProAir HFA) 90 mcg/inh inhalation aerosol 2 puffs, Inhalation, Every 6 hours, PRN NEEDED FOR WHEEZING, # 8.5 each, 2 Refills, Maintenance,04/03/24 8:24:00 AM EDT, [id number], 25, INHALE 2 PUFFS BY MOUTH EVERY [...] 5 Refills, Maintenance, 03/17/24 3:59:00 PMEDT, Tablet, [facility]/pharmacy #1230, Partial fill upon patient request if [...] Replace Required Details, Route to Pharmacy Electronically, [facility]/pharmacy #1230, 163, cm, 03/17/24 15:48:00 EDT, Height, [...] Refills, Maintenance, 03/17/24 4:10:00 PM EDT, Tablet, [facility]/pharmacy #1230, Partial fill upon patient request if [...] Refills, Maintenance, 04/06/24 10:57:00 AM EDT, Film, [facility]/pharmacy #1230, Partial fill upon patient request if [...] 4:10:00 PM EDT, Route to Pharmacy Electronically, [facility]/pharmacy #1230, 163, cm, 03/17/24 15:48:00 EDT, Height, [...] Team Personnel Name: Yoselyn Mccormick RN Position: [facility] RN Member Role: Primary Care Nurse Name: Rand Baez RN Position: [facility] RN Member Role: Primary Care Nurse Name: Bethany Soares RN Position: [facility] RN Member Role: Primary Care Nurse Name: Pam Harmon RN Position: [facility] RN Member Role: Primary Care Nurse Name: Graciela Harmon RN Position: [facility] RN Member Role: Primary Care Nurse Name: Stella Ramos RN Position: [facility] RN Member Role: Primary Care Nurse Name: Brett Su MD Position: [facility] Physician - Primary Care Member Role: PCP Address: [address] [place] [address]- Telecom: Name: Vangie Chun RN Position: [facility] RN Member Role: Primary Care Nurse Name: Leidy Gray RN Position: [facility] RN Member Role: Primary Care Nurse Name: Jimbo Boswell RN Position: [facility] RN Member Role: Primary Care Nurse Name: James Alvarez RN Position: [facility] RN Member Role: Primary Care Nurse Name: Milena Rios RN Position: [facility] RN Member Role: Primary Care Nurse Name: Oralia Ashley RN Position: [facility] RN Member Role: Primary Care Nurse Name: Phyllis Holman RN Position: [facility] RN Member Role: Primary Care Nurse Name: Raya Jewell RN Position: [facility] RN Member Role: Primary Care Nurse Name: Harini Aponte RN Position: [facility] RN Member Role: Primary Care Nurse Name: Dorita Brock RN Position: [facility] RN Member Role: Primary Care Nurse Name: Nya Liu RN Position: [facility] RN Member Role: Primary Care Nurse Name: Geri Galvan RN Position: [facility] RN Member Role: Primary Care Nurse Name: Eri Mars RN Position: [facility] RN Member Role: Primary Care Nurse Name: Lula Velasco RN Position: [facility] RN Member Role: Primary Care Nurse Name: Guerline Benavides RN Position: [facility] RN Member Role: Primary Care Nurse Name: Fatimah Galaviz RN Position: [facility] ED RN W/OE and Tasks Member Role: Primary Care Nurse Care Team Related Persons Name: KIAN TAMAYO Name: MARTA LEWIS Name: GUERRERO AGUILAR Name: ITALO CORNEJO Insurance Providers Guarantor name: NICOLAS TAMAYO Health Plan Information #: 1 Payer: [facility] CARE ALLIANCE/ONE CARE Member Number: NA Policy Number: NA Group Number: NA
--- OUTSIDE RECORDS SUMMARY | 2024-05-24 12:07 | XMS_ITS | Continuity of Care Document ---
Author Organization [facility] Address [address] [place] [address]- Care Team Providers Care Medicinal Plant Picker Name Role Phone Brett Su MD Primary Care Physician [phone] Encounter 03/21/24 - 04/26/24 [facility] [address] [place] [address]- Attending Physician: Brett Su MD Admitting Physician: Brett Su MD Referring Physician: Brett Su MD Encounter Type: Pre-Outpt Allergies, Adverse Reactions, Alerts Substance Criticality Severity Reaction Reaction Severity Status ibuprofen 1 Diarrhea Nausea Active aspirin stomach problems Active atorvastatin unknown Active acetaminophen 2, 3 Unknown Nausea Resolved simvastatin Unknown Aching muscles Active Percocet 7.5/325 Unable to assess criticality Persistent Mild Nausea Active Augmentin MOUTH SORES Active Tylenol irritated [...] Given pneumococcal 20-valent conjugate vaccine 01/18/23 Recorded [id number] 12y+ bivalent booster vax 01/27/23 Recorded tetanus-diphtheria toxoids (Td) 07/16/21 Given SARS-CoV-2 mRNA (agfnpuh-evef-iarby) vax 07/16/21 Given Influenza Virus Vaccine (oldterm) [...] Given 1Result Comment: [03/08/2017] [facility] [place] 2Location History: [facility] 3Admin Note: center pharmacy venancio castillo 4Admin Note: per pt [facility]d [facility] 5Admin Note: given in clinic 6Admin Note: WING 7Admin Note: clinic ronnie Medications Albuterol (Eqv-ProAir HFA) 90 mcg/inh inhalation aerosol 2 puffs, Inhalation, Every 6 hours, PRN NEEDED FOR WHEEZING, # 8.5 each, 2 Refills, Maintenance,04/03/24 8:24:00 AM EDT, [facility], 25, INHALE 2 PUFFS BY MOUTH EVERY [...] Quantity: 1.0 Unit: each Repeat number: 1 lidocaine 5% topical ointment 1 application, Topically, 3 times a day, for 7 days, # 35 Gm, 0 Refills, Acute 04/29/24 12:54:00 PMEST, 04/22/24 12:54:00 PM EST, Ointment, [facility]/pharmacy #[id number], Partial fill upon patient request if the prescription is for a schedule II opioid drug., 1 application Topically 3 times a day,x7 days, 166, cm, 04/22/24 12:12:00 EST, Height, 48, kg, 04/22/24 12:12:00 EST, Dry Weight Start Date: 04/22/24 Stop Date: 04/29/24 Status: Ordered Quantity: 35.0 Unit: g Repeat number: 1 LORazepam 0.5 mg oral tablet 1 tablet = 0.5 mg, By Mouth, 3 times a day, # 90 tablet, 5 Refills, Maintenance, 03/17/24 3:59:00 PMEDT, Tablet, [facility]/pharmacy #[id number], Partial fill upon patient request if [...] Replace Required Details, [id number], cm, 03/17/24 15:48:00 EDT, Height, [...] Refills, Maintenance, 03/17/24 4:10:00 PM EDT, Tablet, [facility]/pharmacy #[id number], Partial fill upon patient request if [...] Refills, Maintenance, 04/06/24 10:57:00 AM EDT, Film, [facility]/pharmacy #[id number], Partial fill upon patient request if [...] 4:10:00 PM EDT, Route to Pharmacy Electronically, [facility]/pharmacy #[id number], 163, cm, 03/17/24 15:48:00 EDT, Height, [...] Team Personnel Name: Yoselyn Mccormick RN Position: S RN Member Role: Primary Care Nurse Name: Rand Baez RN Position: S RN Member Role: Primary Care Nurse Name: Bethany Soares RN Position: [facility] RN Member Role: Primary Care Nurse Name: Pam Harmon RN Position: [facility] RN Member Role: Primary Care Nurse Name: Graciela Harmon RN Position: [facility] RN Member Role: Primary Care Nurse Name: Stella Ramos RN Position: [facility] RN Member Role: Primary Care Nurse Name: Brett Su MD Position: [facility] Physician - Primary Care Member Role: PCP Address: [address] [place] [address]- Telecom: Name: Vangie Chun RN Position: [facility] RN Member Role: Primary Care Nurse Name: Leidy Gray RN Position: [facility] RN Member Role: Primary Care Nurse Name: Jimbo Boswell RN Position: [facility] SN RN Member Role: Primary Care Nurse Name: James Alvarez RN Position: [facility] RN Member Role: Primary Care Nurse Name: Milena Rios RN Position: [facility] RN Member Role: Primary Care Nurse Name: Oralia Ashley RN Position: [facility] RN Member Role: Primary Care Nurse Name: Phyllis Holman RN Position: [facility] RN Member Role: Primary Care Nurse Name: Raya Jewell RN Position: [facility] RN Member Role: Primary Care Nurse Name: Harini Aponte RN Position: [facility] RN Member Role: Primary Care Nurse Name: Dorita Brock RN Position: [facility] RN Member Role: Primary Care Nurse Name: Nya Liu RN Position: [facility] RN Member Role: Primary Care Nurse Name: Geri Galvan RN Position: [facility] RN Member Role: Primary Care Nurse Name: Eri Mars RN Position: [facility] RN Member Role: Primary Care Nurse Name: Lula Velasco RN Position: [facility] RN Member Role: Primary Care Nurse Name: Guerline Benavides RN Position: [facility] RN Member Role: Primary Care Nurse Name: Fatimah Galaviz RN Position: [facility] KAREN RN W/OE and Tasks Member Role: Primary Care Nurse Care Team Related Persons Name: BELKISKIAN Name: MARTA LEWIS Name: GUERRERO AGUILAR Name: ITALO CORNEJO Insurance Providers Guarantor name: NICOLAS TAMAYO Health Plan Information #: 1 Payer: [facility] Member Number: [id number] Policy Number: NA Group Number: [employer] Plan Information #: 2 Payer: [facility] Member Number: [id number] Policy Number: NA Group Number: NA
--- OUTSIDE RECORDS SUMMARY | 2024-05-24 12:07 | XMS_ITS | Continuity of Care Document ---
Author Organization [facility] Address [address] [place] [address]- Care Team Providers Care Cafe Attendant Name Role Phone Brett Su MD Primary Care Physician Encounter [facility] Date(s): 05/14/24 - 05/14/[address] [address]- Discharge Disposition: A-D/C Walkout Attending Physician: Stevenson Crane MD Admitting Physician: Stevenson Crane MD Referring Physician: Not on Staff, Referring MD Encounter Type: Disch ES Allergies, Adverse Reactions, Alerts Substance Criticality Severity Reaction Reaction Severity Status ibuprofen 1 Diarrhea Nausea Active acetaminophen 2, 3 Unknown Nausea Resolved aspirin stomach problems Active simvastatin Unknown Aching muscles Active atorvastatin unknown Active Percocet 7.5/325 Unable to assess criticality [...] Given pneumococcal 20-valent conjugate vaccine 01/18/23 Recorded [id number] 12y+ bivalent booster vax 01/27/23 Recorded tetanus-diphtheria toxoids (Td) 07/16/21 Given SARS-CoV-2 mRNA (yscvixw-tzuz-csvja) vax 07/16/21 Given Influenza Virus Vaccine (oldterm) [...] Given 1Result Comment: [03/08/2017] [facility] [place] 2Location History: [facility] 3Admin Note: center [facility] 4Admin Note: per pt [facility] 5Admin Note: given in clinic 6Admin Note: [facility] 7Admin Note: clinic ronnie Medications Albuterol (Eqv-ProAir HFA) 90 mcg/inh inhalation aerosol 2 puffs, Inhalation, Every 6 hours, PRN NEEDED FOR WHEEZING, # 8.5 each, 2 Refills, Maintenance,04/03/24 8:24:00 AM EDT, [id number], 25, INHALE 2 PUFFS BY MOUTH EVERY [...] 5 Refills, Maintenance, 03/17/24 3:59:00 PMEDT, Tablet, [facility]/pharmacy #1230, Partial fill upon patient request [...] Replace Required Details, Route to Pharmacy Electronically, [facility]/pharmacy #1230, 163, cm, 03/17/24 15:48:00 EDT, [...] Refills, Maintenance, 03/17/24 4:10:00 PM EDT, Tablet, [facility]/pharmacy #1230, Partial fill upon patient request [...] Refills, Maintenance, 04/06/24 10:57:00 AM EDT, Film, [facility]/pharmacy #1230, Partial fill upon patient request [...] 4:10:00 PM EDT, Route to Pharmacy Electronically, [facility]/pharmacy #1230, 163, cm, 03/17/24 15:48:00 EDT, [...] Team Personnel Name: Yoselyn Mccormick RN Position: [facility] RN Member Role: Primary Care Nurse Name: Rand Baez RN Position: [facility] RN Member Role: Primary Care Nurse Name: Bethany Soares RN Position: [facility] RN Member Role: Primary Care Nurse Name: Pam Harmon RN Position: [facility] RN Member Role: Primary Care Nurse Name: Graciela Harmon RN Position: S RN Member Role: Primary Care Nurse Name: Stella Ramos RN Position: [facility] RN Member Role: Primary Care Nurse Name: Brett Su MD Position: [facility] Physician - Primary Care Member Role: PCP Address: [address] [place] [address]- Telecom: Name: Vangie Chun RN Position: S RN Member Role: Primary Care Nurse Name: Leidy Gray RN Position: [facility] RN Member Role: Primary Care Nurse Name: Jimbo Boswell RN Position: [facility] SN RN Member Role: Primary Care Nurse Name: James Alvarez RN Position: [facility] RN Member Role: Primary Care Nurse Name: Milena Rios RN Position: [facility] RN Member Role: Primary Care Nurse Name: Oralia Ashley RN Position: [facility] RN Member Role: Primary Care Nurse Name: Phyllis Holman RN Position: [facility] RN Member Role: Primary Care Nurse Name: Raya Jewell RN Position: [facility] RN Member Role: Primary Care Nurse Name: Harini Aponte RN Position: [facility] RN Member Role: Primary Care Nurse Name: Dorita Brock RN Position: [facility] RN Member Role: Primary Care Nurse Name: Nya Liu RN Position: [facility] RN Member Role: Primary Care Nurse Name: Geri Galvan RN Position: [facility] RN Member Role: Primary Care Nurse Name: Eri Mars RN Position: [facility] RN Member Role: Primary Care Nurse Name: Lula Velasco RN Position: [facility] RN Member Role: Primary Care Nurse Name: Guerline Benavides RN Position: [facility] RN Member Role: Primary Care Nurse Name: Fatimah Galaviz RN Position: [facility] ED RN W/OE and Tasks Member Role: Primary Care Nurse Care Team Related Persons Name: ROSE MARY TAMAYOA Name: MARTA LEWIS Name: GUERRERO AGUILAR Name: ITALO CORNEJO Insurance Providers Guarantor name: NICOLAS TAMAYO Health Plan Information #: 2 Payer: [facility] Member Number: [id number] Policy Number: NA Group Number: NA Health Plan Information #: 1 Payer: [facility] [employer] Member Number: [id number] Policy Number: NA Group Number: [id number]
--- OUTSIDE RECORDS SUMMARY | 2024-05-24 12:07 | XMS_ITS | Continuity of Care Document ---
Author Organization [facility] [facility] Address [address] [place] [id number] Care Team Providers Care Customs Patrol Officer Name Role Phone ELVI WEBBER ADULT MEDICINE Referring Provider HIM CCA OTHER Assessment No assessment recorded. Plan of Treatment Reminders Order Date Submit Date Provider Last Modified By Organization Details Last Modified Time Details Appointments None recorded. Lab None recorded. Referral None recorded. Procedures None recorded. Surgeries None recorded. Imaging None recorded. Medication Orders ketorolac 30 mg/mL injection solution 2023 024 [id number] [facility]/Pharmacy #[id number], [address] [place], [address], 4 19:46:11 Patient TargetsNo targets recorded. Patient InstructionsNo instructions recorded. Reason for Referral None Reported. Medical Equipment None Reported. Allergies Allergen ID Allergen Name Allergen Category Reaction Reaction Severity Criticality Documentation Date Start Date Code Code System Note Provider Name and Address Organization Details Recorded Time 1993 ibuprofen medicatio n Not available Not available Not available 08/12/2022 5640 RxNorm Not Available [facility] - production 4 03:45:01 1994 acetamino phen / oxycodone medicatio n nausea Not available Not available 08/12/2022 49808 3 RxNorm Lula Camacho MD [address] [facility],[address], [place], [phone], [facility] 3 16:51:49 1995 Augmentin medicatio n Not available Not available Not available 08/12/2022 25617 2 RxNorm got mouth sores Lula Camacho MD [address] [facility],[address], [place], [phone], [facility] 3 16:52:05 1996 acetamino phen medicatio n Not available Not available Not available 08/12/2022 161 RxNorm Not Available [facility] - production 4 03:45:01 1997 simvastat in medicatio n Not available Not available Not available 08/12/2022 71446 RxNorm Lula Camacho MD [address] [facility],[address], [place], [phone] , [facility] - [facility] 3 16:52:28 Medications Name Sig Start Date Stop Date Status Note LastModified by Organization Details LastModified Time carisoprodol 350 mg tablet 1 TABLET BY MOUTH LATE AFTERNOON AND 1 TABLET BY MOUTH AT NIGHT. active Not Available Not Available No t Available ketorolac 15 mg/mL injection solution 15mg x1 now 2022 active Not Available Not Available Not Avai lable Anti-Diarrhe al (loperamide) 2 mg tablet active Not Available Not Available Not Available acetaminophe n 325 mg tablet TAKE 2 TABS BY MOUTH FOUR TIMES DAILY NEEDED FOR PAIN X 7 DAYS active Not Available Not Available No t Available loperamide 2 mg capsule TAKE 1 CAPSULE BY MOUTH EVERY 4 HOURS FOR 14 DAYS NEEDED FOR LOOSE STOOL active Not Available Not Available Not Available trazodone 50 mg tablet TAKE 1 TABLET BY MOUTH EVERYDAY AT BEDTIME FOR EVERYDAY active Not Available Not Available No t Available nitroglyceri n 0.3 mg sublingual tablet PLEASE SEE ATTACHED FOR DETAILED DIRECTIONS active Not Available Not Available N ot Available hydrocodone 5 mg-acetamino phen 325 mg tablet 1 TAB ORALLY 2 TIMES A DAY NEEDED FOR PAIN PARTIAL FILL UPON PATIENT REQUEST. active Not Available Not Available No t Available sucralfate 1 gram tablet PLEASE SEE ATTACHED FOR DETAILED DIRECTIONS active Not Available Not Available N ot Available phenazopyrid ine 200 mg tablet TAKE 1 TABLET BY MOUTH 3 TIMES A DAY NEEDED FOR URINARY BURNING PAIN active Not Available Not Available No t Available ondansetron HCl 4 mg tablet TAKE 2 TABLETS BY MOUTH TWICE A DAY NEEDED active Not Available Not Available No t Available famotidine 40 mg tablet TAKE 1 TABLET BY MOUTH EVERYDAY AT BEDTIME active Not Available Not Available No t Available sertraline 100 mg tablet 1.5 TABLET BY MOUTH DAILY,DOSE INCREASE. active Not Available Not Available No t Available clonazepam 1 mg tablet TAKE 1 TABLET BY MOUTH TWICE A DAY FOR 30 DAYS active Not Available Not Available No t Available clindamycin HCl 150 mg capsule TAKE 2 CAPSULES BY MOUTH TO START AND THEN 1 CAPSULE EVERY 8 HOURS active Not Available Not Available No t Available metronidazol e 500 mg tablet TAKE 1 TABLET BY MOUTH EVERY 8 HOURS FOR 3 DAYS active Not Available Not Available No t Available peg-electrol yte solution 420 gram oral solution DRINK 240 ML BY MOUTH EVERY 10 MINUTES active Not Available Not Available No t Available olanzapine 7.5 mg tablet TAKE 1 TABLET BY MOUTH EVERY DAY active Not Available Not Available No t Available tramadol 50 mg tablet TAKE 1 TAB BY MOUTH EVERY 12 HOURS FOR 15 DAYS NEEDED FOR PAIN active Not Available Not Available No t Available triamcinolon e acetonide 0.1 % topical cream APPLY THIN COAT TO AFFECTED AREA TWICE A DAY active Not Available Not Available No t Available ketorolac 30 mg/mL (1 mL) injection solution 30mg IM x1 now 2022 active Not Available Not Available Not Avai lable vancomycin 125 mg capsule PLEASE SEE ATTACHED FOR DETAILED DIRECTIONS active Not Available Not Available N ot Available baclofen 20 mg tablet TAKE 1 TABLET BY MOUTH DAILY IN THE AFTERNOON AND THEN 1 TABLET DAILY PRIOR TO BED. active Not Available Not Available No t Available potassium chloride 20 mEq oral packet 40 mEq now and take 20 mEQ in 4 hrs with food 2022 active Not Available Not Available Not Avai lable dicyclomine 20 mg tablet TAKE 1 TABLET BY MOUTH 4 TIMES A DAY, FOR 30 DAYS active Not Available Not Available No t Available amitriptylin e 10 mg tablet TAKE 1 TABLET BY MOUTH EVERYDAY AT BEDTIME active Not Available Not Available No t Available diazepam 2 mg tablet TAKE 1 TAB BY MOUTH DAILY AT BEDTIME NEEDED FOR ANXIETY X 14 DAYS active Not Available Not Available No t Available phenazopyrid ine 100 mg tablet 100 MG ORALLY 3 TIMES A DAY NEEDED FOR SPASM FOR 4 DAYS active Not Available Not Available N ot Available baclofen 10 mg tablet PLEASE SEE ATTACHED FOR DETAILED DIRECTIONS active Not Available Not Available N ot Available pantoprazole 40 mg tablet,delay ed release TAKE 1 TABLET BY MOUTH EVERY DAY active Not Available Not Available No t Available trazodone 150 mg tablet TAKE 2 TABLETS BY MOUTH DAILY AT BEDTIME active Not Available Not Available N ot Available nystatin 100,000 unit/gram topical cream APPLY TOPICALLY TO THE AFFECTED SPARINGLY AREA(S) TWICE DAILY FOR 14 DAYS active Not Available Not Available Not Available oxycodone 5 mg capsule TAKE 1 CAPSULE BY MOUTH EVERY 8 HOURS NEEDED FOR PAIN SCALE 4-6 FOR 3 DAYS active Not Available Not Available No t Available ibuprofen 200 mg tablet TAKE 2 TABS BY MOUTH EVERY 6 HOURS NEEDED FOR PAIN X 10 DAYS active Not Available Not Available No t Available nitroglyceri n 0.[address] 1 TABLET UNDER TONGUE EVERY 5 MINUTES NEEDED FOR CHEST PAIN active Not Available Not Available N ot Available oxybutynin chloride ER 5 mg tablet,exten ded release 24 hr TAKE 1 TABLET BY MOUTH EVERY DAY active Not Available Not Available No t Available omeprazole 20 mg capsule,ernesto yed release TAKE 1 CAPSULE BY MOUTH EVERY DAY active Not Available Not Available No t Available metoprolol succinate ER 25 mg tablet,exten ded release 24 hr TAKE 1/2 OF A TABLET BY MOUTH DAILY FOR 30 DAYS active Not Available Not Available Not Available lorazepam 1 mg tablet TAKE 1 TABLET BY MOUTH EVERY DAY FOR 5 DAYS NEEDED FOR SPASMS active Not Available Not Available No t Available diazepam 10 mg tablet PLEASE SEE ATTACHED FOR DETAILED DIRECTIONS active Not Available Not Available N ot Available levofloxacin 500 mg tablet TAKE 1 TABLET BY MOUTH EVERY DAY FOR 3 DAYS (24 HOURS APART) active Not Available Not Available No t Available albuterol sulfate HFA 90 mcg/actuatio n aerosol inhaler INHALE 2 PUFFS BY MOUTH EVERY 6 HOURS NEEDED FOR WHEEZING active Not Available Not Available No t Available morphine 15 mg immediate release tablet TAKE 1/2 TAB BY MOUTH EVERY 6 HOURS FOR 4 DAYS NEEDED FOR PAIN active Not Available Not Available No t Available ondansetron 4 mg disintegrati ng tablet TAKE 1 TABLET BY MOUTH EVERY 8 HOURS NEEDED FOR NAUSEA/VOMI TING active Not Available Not Available No t Available metocloprami de 10 mg tablet TAKE 1 TABLET BY MOUTH 3 TIMES A DAY NEEDED FOR NAUSEA AND VOMITING active Not Available Not Available No t Available oxycodone 5 mg tablet TAKE 1 TABLET BY MOUTH EVERY 6 HOURS NEEDED FOR PAIN FOR 3 DAYS active Not Available Not Available No t Available ezetimibe 10 mg tablet TAKE 1 TABLET BY MOUTH EVERY DAY active Not Available Not Available No t Available nitrofuranto in monohydrate/ macrocrystal s 100 mg capsule TAKE 1 CAPSULE BY MOUTH EVERY 12 HOURS FOR 5 DAYS active Not Available Not Available N ot Available Antacid Plus Anti-Gas 400 mg-400 mg-40 mg/5 mL oral suspension 5 ML BY MOUTH 4 TIMES A DAY,X7 DAYS, NEEDED TO CONTROL STOMACH ACID active Not Available Not Available No t Available ketorolac 30 mg/mL injection solution Inject 1 mL by intravenous route. 2023 active Not Available Not Available Not Avai lable potassium chloride ER 20 mEq tablet,exten ded release TAKE 1 TABLET BY MOUTH EVERY DAY FOR 4 DAYS active Not Available Not Available No t Available Humira(CF) Pen 40 mg/0.4 mL subcutaneous kit active Not Available Not Available Not Available Humira(CF) Pen Crohn's-Ulc Colitis-Hid Sup Strt 80 mg/0.8 mL subcut kt active Not Available Not Available No t Available Vitals Date Recorded Respiratory rate Heart rate Oxygen saturation Oxygen saturation in Arterial blood by Pulse oximetry Body temperature Systolic blood pressure Diastolic blood pressure Provider Name and Address Organization Details Last Updated DateTime 16 /min 88 /min 96 % 96 % 96 [degF] 97 mm[Hg] 63 mm[Hg] Not Available [facility] - production 17:24:48 Social History None recorded. Functional Status None recorded. Mental Status None recorded. Family History Nothing Reported. Medical History No medical history recorded. Gynecological HistoryNo gynecological history recorded. Obstetrics History GPAL:G 0 P 0 0 0 0 Past Encounters Encounter ID Performer Location Encounter Start Date Encounter Closed Date Diagnosis/Indication Diagnosis SNOMED-CT Code Diagnosis ICD10 Code [id number] Nelly Pérez MD [facility] - [facility] [address] [place] [phone] 04/18/2024 17:24:45 04/18/2024 22:03:45 Headache [id number] R51.9 Health Concerns Section Related Observation LastModified by Organization Detai ls LastModified Time None Recorded Concern Status LastModified by Organization Details LastModified Time None Recorded Payers Encounter Date Sequence Insurance Name Policy Number Policy Babb Covered Member ID Babb Member ID Guarantor Name 04/18/2024 1 [facility] - DOS ON OR AFTER 2022 - DUAL ELIGIBLE - HALF-WAY OPTIONS AND ONE C[employer] (MEDICARE REPLACEMENT/ADV ANTAGE - HMO) Rnadi Lowery [id number] Randi Lowery Notes Date Note Type Note Provider Name and Address Organization Details Recorded Time 04/18/2024 text/html [facility] Nurse Triage Notes (Leslie Lopez): Reason For Request: Pt is experiencing severe headache and abdominal pain Chief Complaints: Headache, Abdominal pain PMH: COPD/Asthma Comments: Patient experiencing a headache, abd pain, and numbness/tingling to LEs. Headache started 30 min ago and sharp pain on the right temporal area with slight dizziness. Speech clear. Reports numbness in leg/feet going on for a while. Appt with Neurologist 05/24. Denies N/V. Pain to lower abd from a known torn pelvic muscle- has follow up with Specialist. ................... ................... ................... ................... ................... ................... ................... ........ Technical Support Analyst Note From Corey Moralez: This 59-year-old female with a history of COPD requested a visit today for a headache for the last hour and a half. She states the headache is in her forehead and both temples. She also reports acute on chronic lower abdominal pain. She requests ketorolac and tylenol. She denies any chest pain, shortness of breath, one sided weakness, photophobia, fevers, nausea, vomiting, diarrhea. She reports that she? s eating and drinking normally.Patient presents awake and alert, and no acute distress. Her vital signs are reasonably stable, patient reports baseline hypotension. She is afebrile. Nonfocal neurological exam. Normal gait. Pupils 4 mm +PERRLA. Lungs are clear throughout auscultation. Abdomen is soft, nontender, nondistended. No lower extremity edema.[facility] contacted and patient treated with ketorolac 30 mg IM, left deltoid and acetaminophen 500 mg PO. I recommend she follows up with her primary care doctor if symptoms persist. She is instructed to present to the ED for any new or worsening symptoms such as altered mental status, chest pain, shortness of breath, high fever, or other neurological changes. The patient and her are given the opportunity to ask questions and agree with this plan. ................... ................... ................... ................... ................... ................... ................... ........ [facility] Consulted: Nelly Pérez ................... ................... ................... ................... ................... ................... ................... ........ Disposition: Fulfilled Nelly Pérez MD [address] [facility],[address], [place], [address], [facility] 04/18/2024 19:46:24 OBGyn Episode No OBEpisode recorded.
--- OUTSIDE RECORDS SUMMARY | 2024-05-24 12:07 | XMS_ITS | Continuity of Care Document ---
Author Organization [facility] ter Address [address] [place] [id number]- Care Team Providers Care Charger Operator Helper Name Role Phone Sharlene STEWART, Brett Araujo Primary Care Physician Encounter [facility] Date(s): 04/04/24 - 05/17/[address] [address]- Attending Physician: Cecy Goncalves MD Admitting Physician: Cecy Goncalves MD Referring Physician: Cecy Goncalves MD Encounter Type: Pre-Outpt Allergies, Adverse Reactions, Alerts Substance Criticality Severity Reaction Reaction Severity Status ibuprofen 1 Diarrhea Nausea Active atorvastatin unknown Active acetaminophen 2, 3 [...] Given pneumococcal 20-valent conjugate vaccine 01/18/23 Recorded [id number] 12y+ bivalent booster vax 01/27/23 Recorded tetanus-diphtheria toxoids (Td) 07/16/21 Given SARS-CoV-2 mRNA ([id number]) vax 07/16/21 Given Influenza Virus Vaccine (oldterm) [...] Given 1Result Comment: [03/08/2017] [facility] [place] 2Location History: [facility] 3Admin Note: center [facility] venancio castillo 4Admin Note: per pt [facility]cvd [facility] 5Admin Note: given in clinic 6Admin Note: WING 7Admin Note: clinic ronnie Medications Albuterol (Eqv-ProAir HFA) 90 mcg/inh inhalation aerosol 2 puffs, Inhalation, Every 6 hours, PRN NEEDED FOR WHEEZING, # 8.5 each, 2 Refills, Maintenance,04/03/24 8:24:00 AM EDT, [id number], 25, INHALE 2 PUFFS BY MOUTH EVERY [...] 5 Refills, Maintenance, 03/17/24 3:59:00 PMEDT, Tablet, [facility]/pharmacy #[id number], Partial fill upon patient [...] Replace Required Details, Route to Pharmacy Electronically, [facility]/pharmacy #[id number], 163, cm, 03/17/24 15:48:00 [...] Refills, Maintenance, 03/17/24 4:10:00 PM EDT, Tablet, [facility]/pharmacy #[id number], Partial fill upon patient [...] Refills, Maintenance, 04/06/24 10:57:00 AM EDT, Film, [facility]/pharmacy #[id number], Partial fill upon patient [...] 4:10:00 PM EDT, Route to Pharmacy Electronically, [facility]/pharmacy #[id number], 163, cm, 03/17/24 15:48:00 [...] Team Personnel Name: Yoselyn Mccormick RN Position: [facility] RN Member Role: Primary Care Nurse Name: Rand Baez RN Position: [facility] RN Member Role: Primary Care Nurse Name: Bethany Soarse RN Position: [facility] RN Member Role: Primary Care Nurse Name: Pam Harmon RN Position: [facility] RN Member Role: Primary Care Nurse Name: Graciela Harmon RN Position: [facility] RN Member Role: Primary Care Nurse Name: Stella Ramos RN Position: [facility] RN Member Role: Primary Care Nurse Name: Brett Su MD Position: [facility] Physician - Primary Care Member Role: PCP Address: [address] [place] [id number]- Telecom: Name: Vangie Chun RN Position: [facility] RN Member Role: Primary Care Nurse Name: Leidy Gray RN Position: [facility] RN Member Role: Primary Care Nurse Name: Jimbo Boswell RN Position: [facility] SN RN Member Role: Primary Care Nurse Name: James Alvarez RN Position: [facility] RN Member Role: Primary Care Nurse Name: Milena Rios RN Position: [facility] RN Member Role: Primary Care Nurse Name: Oralia Ashley RN Position: [facility] RN Member Role: Primary Care Nurse Name: Phyllis Holman RN Position: [facility] RN Member Role: Primary Care Nurse Name: Raya Jewell RN Position: [facility] RN Member Role: Primary Care Nurse Name: Harini Aponte RN Position: [facility] RN Member Role: Primary Care Nurse Name: Dorita Brock RN Position: [facility] RN Member Role: Primary Care Nurse Name: Nya Liu RN Position: [facility] RN Member Role: Primary Care Nurse Name: Geri Galvan RN Position: [facility] RN Member Role: Primary Care Nurse Name: Eri Mars RN Position: [facility] RN Member Role: Primary Care Nurse Name: Lula Velasco RN Position: [facility] RN Member Role: Primary Care Nurse Name: Guerline Benavides RN Position: [facility] RN Member Role: Primary Care Nurse Name: Fatimah Galaviz RN Position: [facility] ED RN W/OE and Tasks Member Role: Primary Care Nurse Care Team Related Persons Name: KIAN TAMAYO Name: MARTA LEWIS Name: GUERRERO AGUILAR Name: ITALO CORNEJO Insurance Providers Guarantor name: NICOLAS TAMAYO Health Plan Information #: 1 Payer: [employer] Member Number: [id number] Policy Number: NA Group Number: NA Health Plan Information #: 2 Payer: [employer] Member Number: [id number] Policy Number: NA Group Number: NA
== END 2024-05-21 14:03 | disposition home or self-care (01) ==
PROVIDERS: Emergency Provider Emergency Medicine Emergency Medical Services; PCP Internal Medicine
DX: M54.50 Low back pain, unspecified (principal); K51.80 Other ulcerative colitis without complications; R10.2 Pelvic and perineal pain; R20.0 Anesthesia of skin; F17.210 Nicotine dependence, cigarettes, uncomplicated; Z79.899 Other long term (current) drug therapy
CPT/HCPCS: 96372; 99284; J2270

== ENCOUNTER 2024-05-29 11:38 | Day surgery (SDC) | payer OTHER, SELFPAY ==
[2024-05-25 10:35] VITALS: BMI 17.6
--- NOTE | 2024-05-26 10:24 | P.CONAN_ITS ---
Documented by User: Maureen Boyd NP 05/26/24 10:26 HPI - Anesthesia Eval Consult details Narrative: 59yo F for Cystoscopy Hydrodistention of Bladder,with Botox s/p same 02/2024 with GA-LMA 4 Ostomy in situ PMFSH Active Problems Active Problems: All Active Problems Pelvic floor dysfunction in female (Acute) Urinary urgency (Acute) Bladder pain (Acute) Fracture of fifth metatarsal bone of left foot (Acute) Bladder spasm (Acute) Interstitial cystitis (Acute) Past Medical History Medical History Colostomy in place On beta morgan at home Anxiety SVT (supraventricular tachycardia) Depression Back pain History of gastrostomy tube placement Hx of ulcerative colitis Hx of cystitis History of anxiety Asthma Elevated cholesterol Family History Family history of problems with anesthesia: No Surgical History Surgical History History of tubal ligation History of endometrial ablation History of bladder surgery History of Problems with Anesthesia: No Social History Social History Household Members: Significant Other Housing: Apartment Are you a primary child care associate teacher to a significant other at home: No Do you presently have visiting nurse or other home services: No Alcohol intake: former Patient Tobacco Use Status: Current everyday Tobacco user Tobacco use type: Cigarette Cigarettes Per Day: 4 Years Smoked: 22 Use of substances other than those prescribed or required for medical reasons: No Are you DNR?: No Advance Directives: No Advance Directives Information Provided: Yes Recently lost weight without trying: No Current occupational status: disabled Meds Allergies Allergy/AdvReac Type Severity Reaction Status Date / Time amoxicillin [From AUGMENTIN] Allergy Severe SEVERE Verified 05/21/24 12:13 DIARRHEA Suszknc-LWQ-WqM Reductase Allergy Intermediate muscle Verified 05/21/24 12:13 Inhibitor aches, [[id number] REDUCTASE cramps INHIBITOR] acetaminophen [ACETAMINOPHEN] AdvReac Severe GI upset. Verified 05/21/24 12:13 Pt confirmed NOT allergic to oxycodone NSAIDS (Non-Steroidal AdvReac Severe Gastrointestinal Verified 05/21/24 12:13 Anti-Inflamma Upset Home Medications ?Medication ?Instructions ?Recorded ?Confirmed ?Last Taken ?Type albuterol sulfate 90 mcg/actuation 2 puff inhalation Q4-6H PRN 04/25/20 03/09/24 04/13/22 History aerosol inhaler (ProAir HFA) Shortness Of Breath adalimumab 40 mg/0.4 mL 40 mg subcut .Q 14 DAYS 06/21/20 03/09/24 Unknown History subcutaneous pen kit clonazepam 1 mg tablet 1 mg PO BEDTIME 08/08/21 03/09/24 Unknown History metoprolol succinate 25 mg 12.5 mg PO DAILY 08/08/21 03/09/24 03/13/24 History tablet,extended release 24 hr omeprazole 20 mg capsule,delayed 20 mg PO DAILY 11/03/21 03/09/24 03/13/24 History release ondansetron 4 mg disintegrating 4 mg PO BID PRN nausea/vomiting 11/17/22 03/09/24 Unknown History tablet trazodone 50 mg tablet 50 mg PO BEDTIME 10/15/23 03/09/24 Unknown History sertraline 25 mg tablet 25 mg PO DAILY 03/13/24 03/13/24 03/13/24 History lorazepam 0.5 mg tablet mg PO 04/07/24 Unknown History trazodone 100 mg tablet 100 mg PO BEDTIME 04/07/24 Unknown History Exam Height,Weight and Vital Signs: Height 5 ft 5 in Weight 48.08 kg Pertinent Lab Results Pertinent Lab Results: Laboratory Tests 04/30/24 16:38 WBC 5.8 Hgb 8.8 L Hct 28.6 L Plt Count 223 Sodium 138 Potassium 3.6 Chloride 105 Carbon Dioxide 23 BUN 16 Creatinine 0.79 Narrative Narrative: EKG 04/2024 Vent. Rate : 077 BPM Atrial Rate : 077 BPM P-R Int : 116 ms QRS Dur : 080 ms QT Int : 392 ms P-R-T Axes : 019 019 020 degrees QTc Int : 443 ms Normal sinus rhythm Normal ECG When compared with ECG of 19-DEC-2023 16:03, Nonspecific T wave abnormality now evident in Inferior leads Assessment and Plan Assessment Anesthesia Assessment: Chart Reviewed Final Anesthetic Review Family History of Problems with Anesthesia: No History of Problems with Anesthesia: No Documented by User: Debby Rollins MD 05/29/24 12:35 PMF Active Problems Active Problems: All Active Problems Pelvic floor dysfunction in female (Acute) Urinary urgency (Acute) Bladder pain (Acute) Fracture of fifth metatarsal bone of left foot (Acute) Bladder spasm (Acute) Interstitial cystitis (Acute) Smoker Past Medical History Medical History Colostomy in place On beta morgan at home Anxiety SVT (supraventricular tachycardia) Depression Back pain History of gastrostomy tube placement Hx of ulcerative colitis Hx of cystitis History of anxiety Asthma Elevated cholesterol Family History Family history of problems with anesthesia: No Surgical History Surgical History History of tubal ligation History of endometrial ablation History of bladder surgery History of Problems with Anesthesia: No Social History Social History Household Members: Significant Other Housing: Apartment Are you a primary child care associate teacher to a significant other at home: No Do you presently have visiting nurse or other home services: No Alcohol intake: former Patient Tobacco Use Status: Current everyday Tobacco user Tobacco use type: Cigarette Cigarettes Per Day: 4 Years Smoked: 22 Use of substances other than those prescribed or required for medical reasons: No Are you DNR?: No Advance Directives: No Advance Directives Information Provided: Yes Recently lost weight without trying: No Current occupational status: disabled Meds Allergies Allergy/AdvReac Type Severity Reaction Status Date / Time amoxicillin [From AUGMENTIN] Allergy Severe SEVERE Verified 05/21/24 12:13 DIARRHEA Cvwdfcr-CDA-AfF Reductase Allergy Intermediate muscle Verified 05/21/24 12:13 Inhibitor aches, [[id number]-INL-ILU REDUCTASE cramps INHIBITOR] acetaminophen [ACETAMINOPHEN] AdvReac Severe GI upset. Verified 05/21/24 12:13 Pt confirmed NOT allergic to oxycodone NSAIDS (Non-Steroidal AdvReac Severe Gastrointestinal Verified 05/21/24 12:13 Anti-Inflamma Upset Home Medications ?Medication ?Instructions ?Recorded ?Confirmed ?Last Taken ?Type albuterol sulfate 90 mcg/actuation 2 puff inhalation Q4-6H PRN 04/25/20 03/09/24 04/13/22 History aerosol inhaler (ProAir HFA) Shortness Of Breath adalimumab 40 mg/0.4 mL 40 mg subcut .Q 14 DAYS 06/21/20 03/09/24 Unknown History subcutaneous pen kit clonazepam 1 mg tablet 1 mg PO BEDTIME 08/08/21 03/09/24 Unknown History metoprolol succinate 25 mg 12.5 mg PO DAILY 08/08/21 03/09/24 03/13/24 History tablet,extended release 24 hr omeprazole 20 mg capsule,delayed 20 mg PO DAILY 11/03/21 03/09/24 03/13/24 History release ondansetron 4 mg disintegrating 4 mg PO BID PRN nausea/vomiting 11/17/22 03/09/24 Unknown History tablet trazodone 50 mg tablet 50 mg PO BEDTIME 10/15/23 03/09/24 Unknown History sertraline 25 mg tablet 25 mg PO DAILY 03/13/24 03/13/24 03/13/24 History lorazepam 0.5 mg tablet mg PO 04/07/24 Unknown History trazodone 100 mg tablet 100 mg PO BEDTIME 04/07/24 Unknown History Exam Pertinent Lab Results Pertinent Lab Results: Laboratory Tests 04/30/24 16:38 WBC 5.8 Hgb 8.8 L Hct 28.6 L Plt Count 223 Sodium 138 Potassium 3.6 Chloride 105 Carbon Dioxide 23 BUN 16 Creatinine 0.79 Narrative Narrative: EKG 04/2024 Vent. Rate : 077 BPM Atrial Rate : 077 BPM P-R Int : 116 ms QRS Dur : 080 ms QT Int : 392 ms P-R-T Axes : 019 019 020 degrees QTc Int : 443 ms Normal sinus rhythm Normal ECG When compared with ECG of 19-DEC-2023 16:03, Nonspecific T wave abnormality now evident in Inferior leads Airway Mallampati Class: II TM Dist: >3cm Neck ROM: Full Loose/Missing/Broken Teeth: Yes (Many missing teeth. Denies broken or loose teeth) Heart: RRR Lungs: CTAB Assessment and Plan Assessment Anesthesia Assessment: Anesthesia Plan Discussed and Chart Reviewed Final Anesthetic Review Family History of Problems with Anesthesia: No History of Problems with Anesthesia: No NPO: Yes ASA Class: III Final Preanesthetic Review: No Changes in Pt Med Stat, Meds/Allgs Chart Reviewed , Consent Obtained/Reviewed and Anes Risks/Benef Reviewed Patient Risk: Intermediate Procedure Risk: Low Assessment/Block/Sedation in SS: Assess/Block/Sedation-SS Anesthetic Plan Anesthetic Plan: GA Disposition: Standard PACU
--- OUTSIDE RECORDS SUMMARY | 2024-05-29 11:41 | XMS_ITS | Continuity of Care Document ---
Author Organization [employer], [facility] Address [address] [place] [phone] Care Team Providers Care Sales Representative Groceries Name Role Phone [facility] Referring Provider HIM [facility] OTHER Assessment No assessment recorded. Plan of Treatment Reminders Order Date Submit Date Provider Last Modified By Organization Details Last Modified Time Details Appointments None recorded. Lab None recorded. Referral None recorded. Procedures None recorded. Surgeries None recorded. Imaging None recorded. Medication Orders ketorolac 30 mg/mL injection solution 2023 024 [id number] [id number], [address] [place], [address], 4 19:46:11 Patient TargetsNo targets recorded. Patient [...] n nausea Not available Not available 08/12/2022 [id number] 3 RxNorm Lula Camacho MD [address] [facility],[address], [place], [phone], [employer] 3 16:51:49 1995 Augmentin medicatio n Not available Not available Not available 08/12/2022 [id number] 2 RxNorm got mouth sores Lula Camacho MD [address] [facility],[address], [place], [phone], [employer] 3 16:52:05 1996 acetamino phen medicatio n Not available Not available Not available 08/12/2022 161 RxNorm Not Available [employer] [facility] 4 03:45:01 1997 simvastat in medicatio n Not available Not available Not available 08/12/2022 [id number] RxNorm Lula Camacho MD [address] [facility],[address], [place], [phone] , [facility] 3 16:52:28 Medications Name Sig Start Date [...] Diagnosis/Indication Diagnosis SNOMED-CT Code Diagnosis ICD10 Code 25269 Nelly Pérze MD Main - [facility] [address] [place] [phone] 04/18/2024 17:24:45 04/18/2024 22:03:45 Headache 60122011 R51.9 Health Concerns Section Related Observation LastModified by Organization Detai ls LastModified Time None Recorded Concern Status LastModified by Organization Details LastModified Time None Recorded Payers Encounter Date Sequence Insurance Name Policy Number Policy Babb Covered Member ID Babb Member ID Guarantor Name 04/18/2024 1 [facility] - DOS ON OR AFTER 2022 - DUAL ELIGIBLE - [employer] OPTIONS AND ONE CARE (MEDICARE REPLACEMENT/ADV ANTAGE - HMO) Randi Lowery [id number] Randi Lowery Notes Date Note Type Note [...] ................... ................... ................... ................... ................... ................... ........ Social Media Job Titles Note From Corey Moralez: This 59-year-old female [...] is soft, nontender, nondistended. No lower extremity edema.[facility] contacted and patient treated with ketorolac 30 [...] ................... ................... ................... ................... ................... ................... ........ [facility] Consulted: Nelly Pérez ................... ................... ................... ................... ................... ................... ................... ........ Disposition: Fulfilled Nelly Pérez MD [address] [facility],[address], [place], [phone], [employer] 04/18/2024 19:46:24 OBGyn Episode No OBEpisode recorded.
[2024-05-29 11:48] VITALS: BMI 19.8
[2024-05-29] MEDS: Albuterol Sulfate (0.083%) 2.5 MG/3 ML VIAL.NEB INHALE (12:31)
[2024-05-29] MEDS: Lactated Ringers 1,000 ML 100 ML IVCONT (12:31)
[2024-05-29 12:33] VITALS: BP 106/50; PULSE 52; RESP 16; TEMP 36.7; O2SAT 97
--- NOTE | 2024-05-29 12:54 | MHC.SHP ---
Pre-Procedural Eval Section A - 24 Hr Update-Section A only Date of Service: 05/29/24 The patient is an INPATIENT: No Changes since office visit: No Cold of Flu in the past 2 weeks, No New Medical Problems, No Changes in Medication and No Patient answered all questions The patient has been examined within 24 hours of the surgical procedure. The History & Physical has been completed within 30 days and I have reviewed it.: Yes Section B - Complete if H&P > 30 days Chief Complaint: Interstitial cystitis (chronic) without hematuria Details of Present Illness: Interstitial cystitis - plan hydrodistention with Botox Allergies: Allergies Allergy/AdvReac Type Severity Reaction Status Date / Time amoxicillin [From AUGMENTIN] Allergy Severe SEVERE Verified 05/21/24 12:13 DIARRHEA Cbtivbx-MHH-SsE Reductase Allergy Intermediate muscle Verified 05/21/24 12:13 Inhibitor aches, [OIBLNLV-CQJ-DRX REDUCTASE cramps INHIBITOR] acetaminophen [ACETAMINOPHEN] AdvReac Severe GI upset. Verified 05/21/24 12:13 Pt confirmed NOT allergic to oxycodone NSAIDS (Non-Steroidal AdvReac Severe Gastrointestinal Verified 05/21/24 12:13 Anti-Inflamma Upset Review of Systems Sugical H&P ROS: Negative: Constitution, Cardiovascular, Respiratory, Neurological, Psychiatric, Hem-Onc, Allergic/Immunologic, Gastrointestinal, Genitourinary, Musculoskeletal, Integumentary, Endocrine and Eyes/Ears/Nose/Throat Exam Surgical H&P Exam: Normal: HEENT, Normal: Heart, Normal: Lungs, Normal: Extremities, Normal: Abdomen, Normal: Skin and Normal: Neurological Plan Diagnosis/Plan: Unchanged I have reviewed the history and physical and performed a pertinent physical examination on my patient. No changes have occurred unless specified. Time Spent With Patient Time: Total time managing care of this patient today ____ minutes.
--- NOTE | 2024-05-29 13:29 | P.OP_ITS ---
Operative Note Operative Note Date of Service: 05/29/24 Narrative: PreOperative Diagnosis:? Interstitial cystitis with pelvic pain Post Operative Diagnosis:? Interstitial cystitis with pelvic pain Procedure:? Hydrodistention - botox injection Surgeon: Dr Mk Cornelius Anesthesia:? General Indications for procedure: ?interstitial cystitis Procedure: After informed consent was verified the patient was brought to the operating room and placed in a supine position.? Anesthesia was administered per protocol.? The patient was placed in a modified dorsal lithotomy position and prepped and draped in sterile fashion.? Safety pause time-out was observed.? Antibiotics being given. A 22 [place] cystoscope was used to empty the bladder.? A mixture of bupivacaine lidocaine gel 20 cc was instilled into the bladder and allowed to sit for 2-3 minutes Cystoscopy performed with 22 [place] cystoscope. Bladder was emptied of urine. Bladder was refilled. Using 100 units of Botox mixed in 10 cc of normal saline injections were placed at the back wall of the bladder. 0.5cc placed at each injection site. Injections were placed in a grid 5 across and for high. Injections were placed from the inferior to superior position. Trabeculations on the bladder wall with targeted for each injection site. Hydrodistention of the bladder was performed.? The bladder was filled and allowed to sit for 3 minutes.? Filling was from a height of 1 m. Cystoscopy revealed glomerulations and collagenization consistent with interstitial cystitis. Second filling of the bladder was performed in similar fashion.? Terminal hematuria noted. A mixture of bupivacaine lidocaine gel 20 cc was instilled into the bladder. Instilled volume was 800cc x2 The bladder was emptied.? B and O suppository placed per rectum at completion of procedure. The patient tolerated procedure well was extubated in operating room transferred in stable condition to the recovery area.? Appropriate postprocedure pain medication was provided.
[2024-05-29 13:35] VITALS: BP 141/76; PULSE 66; RESP 18; TEMP 36.6; O2SAT 100
[2024-05-29 13:40] VITALS: BP 127/73; PULSE 64; RESP 18; O2SAT 100
[2024-05-29 13:45] VITALS: BP 134/72; PULSE 65; RESP 18; O2SAT 100
[2024-05-29] MEDS: Phenazopyridine HCL 100 MG TABLET PO (13:49)
[2024-05-29 14:00] VITALS: BP 119/38; PULSE 66; RESP 16; TEMP 36.6; O2SAT 100
[2024-05-29 14:15] VITALS: BP 133/70; PULSE 68; RESP 16; O2SAT 100
== END 2024-05-29 14:58 | disposition home or self-care (01) ==
PROVIDERS: PCP Internal Medicine; Visit Provider Urology
PROC: 0T7B7ZZ Dilation of Bladder, Via Natural or Artificial Opening (ICD-10-PCS; CPT 52260; principal; 2024-05-29 13:50)
DX: N30.10 Interstitial cystitis (chronic) without hematuria (principal); R39.15 Urgency of urination; R39.89 Other symptoms and signs involving the genitourinary system; N32.89 Other specified disorders of bladder; M99.05 Segmental and somatic dysfunction of pelvic region; R10.2 Pelvic and perineal pain; M62.89 Other specified disorders of muscle; E78.00 Pure hypercholesterolemia, unspecified; I47.10 Supraventricular tachycardia, unspecified; J45.909 Unspecified asthma, uncomplicated; F32.A Depression, unspecified; F41.9 Anxiety disorder, unspecified; Z79.899 Other long term (current) drug therapy; Z88.1 Allergy status to other antibiotic agents; Z88.6 Allergy status to analgesic agent; Z88.8 Allergy status to other drugs, medicaments and biological substances; Z93.3 Colostomy status; Z98.890 Other specified postprocedural states; F17.210 Nicotine dependence, cigarettes, uncomplicated
CPT/HCPCS: 52260; 52287; J0585; J1956; J2003; J2405; J2704; J3010

== ENCOUNTER → 2024-05-29 11:38 | Outpatient (BNV) | payer OTHER, SELFPAY | PROVIDERS: PCP Internal Medicine; Visit Provider Urology | DX: N30.10 Interstitial cystitis (chronic) without hematuria (principal) | CPT/HCPCS: 52260 ==

== ENCOUNTER → 2024-06-12 10:48 | Outpatient (BNVA) | payer OTHER, SELFPAY | PROVIDERS: PCP Internal Medicine; Visit Provider Urology | DX: M62.89 Other specified disorders of muscle (principal); N30.10 Interstitial cystitis (chronic) without hematuria; N32.89 Other specified disorders of bladder; R39.15 Urgency of urination; R39.89 Other symptoms and signs involving the genitourinary system | CPT/HCPCS: 51798 ==

== ENCOUNTER 2024-06-13 11:16 | Outpatient (AMB) | payer OTHER, SELFPAY ==
--- NOTE | 2024-06-13 11:25 | MHC.OFFVIS ---
Vital Signs 06/13/24 11:28 Height 5 ft 5 in Weight 117 lb BMI 19.5 BP 127/60 Blood Pressure Location Lt brachial Position Sitting Pulse 72 Pulse Source Pulse Oximeter Pulse Oximetry (%) 96 Oxygen Delivery Method Room Air Intake Visit Reasons: PELVIC FLOOR DYSFUNCTION Intake Note: Pain today 01/21 Director Data Architecture Required: No Accompanied by: Spouse Allergies amoxicillin [From AUGMENTIN] Allergy (Severe, Verified 06/13/24 11:31) SEVERE DIARRHEA Iosemjs-SYB-VjW Reductase Inhibitor [VODWXDZ-CVU-GFY REDUCTASE INHIBITOR] Allergy (Intermediate, Verified 06/13/24 11:31) muscle aches, cramps acetaminophen [ACETAMINOPHEN] Adverse Reaction (Severe, Verified 06/13/24 11:31) GI upset. Pt confirmed NOT allergic to oxycodone NSAIDS (Non-Steroidal Anti-Inflamma Adverse Reaction (Severe, Verified 06/13/24 11:31) Gastrointestinal Upset HPI HPI PELVIC FLOOR DYSFUNCTION: Details: Patient is a 59 years old female with history of chronic abdominal and pelvic pain, anxiety and depression, chronic back pain and previous back surgery in 2018, interstitial cystitis, ulcerative colitis, colostomy (11/2023), presents today for initial evaluation for pelvic and low back pain. Denies any recent trauma, injury or falls. She has extensive history of pelvic and bladder pain and is undergoing cystoscopy and hydrodistention every 3 months for over 10 years. Patient also tried and failed multiple medication therapy, including opioids (morphine, tramadol, oxycodone), baclofen, soma, vaginal Valium, gabapentin, Belladonna supp, and Interstim sacral stimulator. She reports sacral stimulator is in place but inactive for about 12-13 years. She is not sure if she can locate the device remote and has not been in contact with Interstim product support representative for device check or reprograming. Back pain is axial and also radiates into both lower extremities posteriorly with numbness, tingling and intermittent weakness. She was seeing Neurologist for this and is scheduled for EMG study on 06/20/[address] Lopez. She reports chronic pelvic pain, left side worse than the right and has concerns for torn pelvic muscle. Patient is currently undergoing Pelvic floor PT at home via [facility] and finds this slightly beneficial. She reports oxycodone 5 mg has been beneficial and when taking it TID prn, it will manages her pain. Pain affects her daily activities and functioning, sleep, mood, social interactions and quality of life. Denies any fever or chills, bladder or bowel incontinence or saddle anesthesia. Location: Pelvic area left>right, low back pain radiates into lower extremities Duration: Chronic pain due to IC, overactive bladder spasms, back pain Characteristics of symptom or complaint: Aching, stabbing, aching, shooting, jumping, sharp, radiating Aggravating or associated factors: ADLs, movements, sitting, standing, walking, ROM, sleep Relieving factors: Tramadol, morphine, Valium vaginal supp, Belladona supp, oxycodone Treatment: Pelvic PT, hydrodistention [id number], Interstim-not used for >10 years [facility] Medical History Colostomy in place On beta morgan at home Anxiety SVT (supraventricular tachycardia) Depression Back pain History of gastrostomy tube placement Hx of ulcerative colitis Hx of cystitis History of anxiety Asthma Elevated cholesterol Surgical History History of tubal ligation History of endometrial ablation History of bladder surgery Social History Household Members: Significant Other Housing: Apartment Are you a primary intensive care ambulance paramedic to a significant other at home: No Do you presently have visiting nurse or other home services: No 75 years or older and lives alone: No Alcohol intake: former Patient Tobacco Use Status: Current everyday Tobacco user Tobacco use type: Cigarette Cigarettes Per Day: 4 Years Smoked: 22 Current occupational status: disabled Review of Systems Const All systems reviewed & are unremarkable except as noted in HPI and below Physical Exam Vital Signs: Last Vital Signs Pulse 72 06/13/24 11:28 BP 127/60 06/13/24 11:28 Pulse Ox 96 06/13/24 11:28 Oxygen Delivery Method Room Air 06/13/24 11:28 BMI result Body Mass Index 19.5 General: Appears afebrile. Alert and oriented. Mood and affect appropriate. Anxious. Follows and participates in conversation appropriately. Respiratory effort is unlabored. No cough. Able to transition from sit to stand unassisted. Uses walker with ambulation. Ambulates with bilaterally normal heel strike and toe off. General: Yes no CVA tenderness Back/Spine/Pelvis Other: Limited lumbar ROM due to pain. Ambulates with hunched over posture. Antalgic gait. No limping. Can flex forward to 65-70 degrees and extend to 5-10 degrees before experiencing lumbar pain. Demonstrates 5/5 strength of quadriceps bilaterally as well as flexion/dorsiflexion of bilateral feet against resistance. 2+ pedal pulses bilaterally. Straight leg rise with dorsiflexion positive bilaterally. Diminished patellar and achilles reflexes bilaterally. Facet loading test positive bilaterally. Cecelia sign positive bilaterally, Marv?s, [place], Pelvic compression and Stinchfield tests are positive bilaterally. No groin pain with I/E hip rotations. Valsalva maneuver negative. Lower abdomen and pelvic area tenderness with palpation, no swelling, no redness. Back: no CVA tenderness Cervical Spine: cervical muscular tenderness, pain with cervical ROM and No Cervical spine tenderness Thoracic/Lumbar Spine: thoracic and lumbar spine normal to inspection, Thoracic/lumbar spine scar(s), kyphosis, Lasegue's sign positive bilateral and diffuse, pain with thoraco-lumbar ROM, paraspinal muscle tenderness, thoraco-lumbar ROM limited, No thoracic spinal tenderness and lumbar spinal tenderness (L3-S1) Pelvis: buttock tenderness bilaterally Sacroiliac joints: bilaterally tender to palpation Results Reviewed Results Reviewed: XR LUMBOSACRAL SPINE 04/20/24 CLINICAL INFORMATION: Low back pain. COMPARISON: None available. TECHNIQUE: Three views of the lumbosacral spine. FINDINGS: Osteopenia versus osteoporosis. Superior endplate compression deformity at T12 representing 40% volume loss. No gross retropulsion. Stimulator device electrode leads overlaps the right S3. Sclerosis in the sacroiliac joints bilaterally. Spina bifida occulta S1. Multilevel thoracolumbar spondylosis. Vascular calcifications. IMPRESSION: Subacute to old compression deformity at T12. Multilevel lumbar spondylosis. If patient's symptoms persist recommend CT. CT abdomen pelvis w IV con 12/19/23 IMPRESSION: 1. No evidence of small bowel obstruction. Small amount of fluid surrounding small bowel loops in the left lower quadrant. 2. Status post cholecystectomy with mild prominence of CBD and intrahepatic ducts. 3. Right renal cyst. 4. Postsurgical changes in the mid abdomen with parastomal hernia. 5. Compression deformity of T12 vertebral body. Assessment & Plan Assessment & Plan (1) Pelvic floor dysfunction in female: Code(s): M62.89 - Other specified disorders of muscle Category: Medical (2) Lumbar radiculopathy: Code(s): M54.16 - Radiculopathy, lumbar region Category: Medical (3) Lumbosacral spondylosis: Code(s): M47.817 - Spondylosis without myelopathy or radiculopathy, lumbosacral region Category: Medical Plan Discussed interventional treatments for chronic pelvic pain and low back pain with radiculopathy. For chronic pelvic pain, we discussed diagnostic nerve blocks such as fluoroscopy guided transgluteal, ganglion Impar, hypogastric plexus and L2 lumbar sympathetic blocks. Patient was also encouraged to follow up with Urology re: inactive Interstim stimulator in place for device check. We also discussed neuromodulation for both chronic back and pelvic pain with SCS and ITDD trial vs implant. Patient is interested in a longer term pain management treatments but is hesitant to injections due to history of multiple cortisone injections, including in her back with minimal benefit. Informational pamphlets provided. Lumbar spine MRI to assess for neural integrity and compression and follow up on recent lumbar spine xray showing subacute to old compression deformity at T12 and multilevel lumbar spondylosis. Patient reports oxycodone allows her to be less symptomatic and more functional. She reports short script of oxycodone recently refilled and is concerned for increased pain without oxycodone. Continued opioid prescribing for oxycodone was deferred to current prescribing provider at Urology. [facility] reviewed and consistent with patient's history. All questions and concerns have been answered and patient agreed with the plan. Patient will return to the clinic to discuss results of the MRI?findings when it is done and consider interventional therapy as indicated.? I hereby testify that I spent 65 minutes in conversation with this patient as well as reviewing history, physical exam, lumbar and pelvic imaging reports review, planning and coordinating care, implementing further diagnostic testing and treatment plan, reviewing old records in attempt to locate Interstim device data, and organizing this note. Orders: Orders MR lumbar spine wo con 06/13/24 M47.817 - Spondylosis without myelopathy or radiculopathy, lumbosacral region, M54.16 - Radiculopathy, lumbar region, M62.89 - Other specified disorders of muscle Coding Level of Care Code New Pt Level 5 (38365) Complex EM visit Add On G2211 Diagnoses Pelvic floor dysfunction in female M62.89 Lumbar radiculopathy M54.16 Lumbosacral spondylosis M47.817
[2024-06-13 11:28] VITALS: BP 127/60; PULSE 72; O2SAT 96; BMI 19.5
== END 2024-06-13 12:28 | disposition home or self-care (01) ==
PROVIDERS: PCP Internal Medicine; Visit Provider Nurse Practitioner Family
DX: M62.89 Other specified disorders of muscle (principal); M54.16 Radiculopathy, lumbar region; M47.817 Spondylosis without myelopathy or radiculopathy, lumbosacral region
CPT/HCPCS: 99205; G2211

== ENCOUNTER → 2024-06-13 11:16 | Outpatient (BNVA) | payer OTHER, SELFPAY | PROVIDERS: PCP Internal Medicine; Visit Provider Nurse Practitioner Family | DX: M62.89 Other specified disorders of muscle (principal); M54.16 Radiculopathy, lumbar region; M47.817 Spondylosis without myelopathy or radiculopathy, lumbosacral region | CPT/HCPCS: 99202 ==

== ENCOUNTER 2024-06-18 14:51 | Emergency (ER) | payer OTHER, SELFPAY ==
[2024-06-18 15:08] VITALS: BP 130/84; PULSE 86; O2SAT 99
[2024-06-18 15:55] VITALS: BP 108/63; PULSE 82; RESP 18; TEMP 36.7; O2SAT 100; BMI 19.6
[2024-06-18 16:50] LABS: MANUAL DIFF FLAG NO
[2024-06-18 17:05] LABS: Basophils Percent Auto 0.5 % (0-2); Eosinophils Absolute Auto 0.1 X10*3/uL (0.0-0.4); Eosinophils Percent Auto 1.1 % (0-4); Hematocrit 26.7 % (37.0-47.0); Hemoglobin 7.9 g/dl (12.0-16.0); Imm Gran Abs Auto 0.01 X10*3/uL (0.00-0.03); Imm Gran Pct Auto 0.2 % (0.0-0.4); Lymphocytes Absolute Auto 2.3 X10*3/uL (1.2-4.9); Lymphocytes Percent Auto 40.9 % (20-40); Mean Corpuscular HGB Conc 29.6 g/dl (31.0-35.0); Mean Corpuscular Hemoglobin 21.2 pg (27.0-33.0); Mean Corpuscular Volume 71.6 fL (80.0-98.0); Mean Platelet Volume 9.4 fL (9.4-12.3); Monocytes Absolute Auto 0.5 X10*3/uL (0.1-1.2); Monocytes Percent Auto 9.1 % (2-11); Neutrophils Absolute Auto 2.8 x10*3/uL (2.0-8.3); Neutrophils Percent Auto 48.2 % (45-73); Platelet Count 286 X10*3/uL (160-400); Red Blood Count 3.73 X10*6/uL (4.20-5.50); Red Cell Distribution Width 18.8 % (11.0-16.0); White Blood Count 5.7 X10*3/uL (4.8-10.8)
[2024-06-18 17:17] LABS: Alanine Aminotransferase 6 U/L (0-31); Albumin Level 3.9 g/dL (3.5-5.0); Alkaline Phosphatase 111 U/L (39-117); Anion Gap 12 (12-20); Aspartate Amino Transferase 17 U/L (5-31); Bilirubin Total 0.1 mg/dL (0.0-1.0); Blood Urea Nitrogen 22 mg/dL (9-16); Calcium 9.3 mg/dL (8.4-10.2); Carbon Dioxide 24 mmol/L (22-29); Chloride 107 mmol/L (96-108); Creatinine Clr Calc Pharmacy 68.2; Estimated Glomerular Filt Rate > 60; Glucose Random 86 mg/dL (60-115); HCG Quantitative < 2 mIU/mL; Magnesium 2.1 mg/dL (1.6-2.6); Potassium 4.4 mmol/L (3.3-5.1); Sodium 139 mmol/L (135-145); Total Protein 7.2 g/dL (6.5-8.0)
--- NOTE | 2024-06-18 17:52 | ED.GENADULT ---
HPI - General Adult General Chief complaint: Back Pain/Injury Stated complaint: pelvic/ low back pain Time Seen by Provider: 06/18/24 17:25 Source: patient, RN notes reviewed and old records reviewed Mode of arrival: ambulatory History of Present Illness ED Provider: Marion Davenport PA-C HPI narrative: 59-year-old female with a past medical history of chronic abdominal and pelvic pain, anxiety, depression, chronic back pain, previous back surgery in , interstitial cystitis, ulcerative colitis, colostomy, presenting to the ED via EMS today complaining of acute on chronic pelvic and low back pain. Patient was given 50 mg of IV fentanyl by EMS with symptomatic relief. Denies recent injury, trauma or falls. States currently follows with urology, orthopedics, and pain management. States currently takes Oxycodone for pain relief at home, requesting short prescription upon discharge. Admits symptoms are typical of chronic, in his scheduled for EMG on Wednesday. Denies fever, chills, numbness, tingling, incontinence/retention, dysuria/hematuria Related Data Home Medications ?Medication ?Instructions ?Recorded ?Confirmed albuterol sulfate 90 mcg/actuation 2 puff inhalation Q4-6H PRN 04/25/20 03/09/24 aerosol inhaler (ProAir HFA) Shortness Of Breath adalimumab 40 mg/0.4 mL 40 mg subcut .Q 14 DAYS 06/21/20 03/09/24 subcutaneous pen kit metoprolol succinate 25 mg 12.5 mg PO DAILY 08/08/21 03/09/24 tablet,extended release 24 hr omeprazole 20 mg capsule,delayed 20 mg PO DAILY 11/03/21 03/09/24 release ondansetron 4 mg disintegrating 4 mg PO BID PRN nausea/vomiting 11/17/22 03/09/24 tablet trazodone 50 mg tablet 50 mg PO BEDTIME 10/15/23 03/09/24 lorazepam 0.5 mg tablet mg PO 04/07/24 trazodone 100 mg tablet 100 mg PO BEDTIME 04/07/24 amitriptyline 10 mg tablet 10 mg PO BEDTIME 06/13/24 primidone 50 mg tablet 50 mg PO BID 06/13/24 sertraline 50 mg tablet 50 mg PO DAILY 06/13/24 Previous Rx's ?Medication ?Instructions ?Recorded phenazopyridine 200 mg tablet 200 mg PO TID PRN urinary burning 01/29/24 (Pyridium) #20 tabs belladonna alkaloids-opium 16.2 1 supp ME .nightly 30 days #30 ea 04/04/24 mg-30 mg rectal suppository belladonna alkaloids-opium 16.2 1 supp ME DAILY PRN pain 30 days 04/05/24 mg-60 mg rectal suppository #30 ea ferrous sulfate 325 mg (65 mg 325 mg PO DAILY #30 tabs 04/20/24 iron) tablet lidocaine 5 % topical patch 1 patch topical DAILY #30 ea 04/20/24 oxybutynin chloride 5 mg 5 mg PO DAILY 30 days #30 tabs 05/15/24 tablet,extended release 24 hr oxycodone 5 mg tablet 5 mg PO BID PRN pain 3 days #6 tabs 06/12/24 oxycodone 5 mg capsule 5 mg PO BID PRN pain (scale score 06/18/24 7-10) 3 days #6 caps Allergies Allergy/AdvReac Type Severity Reaction Status Date / Time amoxicillin [From AUGMENTIN] Allergy Severe SEVERE Verified 06/18/24 15:59 DIARRHEA Bnsojww-RSK-WxW Reductase Allergy Intermediate muscle Verified 06/18/24 15:59 Inhibitor aches, [EOIXMEU-LWR-FCA REDUCTASE cramps INHIBITOR] acetaminophen [ACETAMINOPHEN] AdvReac Severe GI upset. Verified 06/18/24 15:59 Pt confirmed NOT allergic to oxycodone NSAIDS (Non-Steroidal AdvReac Severe Gastrointestinal Verified 06/18/24 15:59 Anti-Inflamma Upset Review of Systems Review of Systems: Yes all other systems are reviewed and are negative Constitutional: Constitutional: Reports as per [facility] Past Medical History Attestation statement: The following information was validated with the patient. Source: old records reviewed Medical History Colostomy in place On beta morgan at home Anxiety SVT (supraventricular tachycardia) Depression Back pain History of gastrostomy tube placement Hx of ulcerative colitis Hx of cystitis History of anxiety Asthma Elevated cholesterol Surgical History History of tubal ligation History of endometrial ablation History of bladder surgery Social History Social History Household Members: Significant Other Housing: Apartment Are you a primary lead care manager to a significant other at home: No Do you presently have visiting nurse or other home services: No Alcohol intake: former Patient Tobacco Use Status: Current everyday Tobacco user Tobacco use type: Cigarette Cigarettes Per Day: 4 Years Smoked: 22 Advance Directives: No Advance Directives Information Provided: No Do you have a plan to hurt others: No Plan Current occupational status: disabled Physical Exam ED Vital Signs: Vital Signs - 24 hr 06/18/24 15:55 Temperature 98.0 F Pulse Rate 82 Respiratory Rate 18 Blood Pressure 108/63 Pulse Oximetry 100 Oxygen Delivery Method Room Air BMI result Body Mass Index 19.6 Const General: cooperative, healthy appearing and no acute distress Orientation/consciousness: patient oriented x3 Limitations: no limitations HENMT Head: Yes normal to inspection and Yes atraumatic Ears: hearing grossly normal bilaterally General nose exam: Normal external nose present Face and sinus: Yes normal facial exam Eyes General: appearance normal, both eyes and all related structures EOM: EOMs intact bilaterally Neck Neck: Yes normal visual inspection and Yes no meningeal signs Resp Effort & Inspection: normal respiratory effort and no respiratory distress Auscultation: clear to auscultation bilaterally Cardio Rate: regular rate Heart sounds: S1 normal heart sound present and S2 normal heart sound present GI Other: + ostomy in place Inspection: Yes normal to inspection Palpation (GI): Soft to palpation, nontender, no guarding and not rigid General: Yes no CVA tenderness Back/Spine/Pelvis Other: No midline cervical/thoracic/lumbar spinous tenderness/step-off or deformity. + mild bilateral lumbar paraspinal/MSK reproducible tenderness. No rash/erythema Back: no CVA tenderness Skin Rashes: no rashes Wounds: no wounds Neuro Other: Strength intact throughout. No saddle anesthesia. Sensation intact to light touch. Neurovascular intact distally General: patient oriented x3, tone normal and no meningeal signs Cranial nerves: Yes CN's II-XII intact bilaterally Gait exam (Neuro): Normal gait present Extrem General: Yes normal to inspection Course Course Course Narrative: -no leukocytosis. Chronic anemia. Known to patient. Denies any active bleeding including melena, bloody stools, hematemesis. > patient states she has no urine infection and would rather just be discharged prior to giving UA Results discussed with patient including worrisome signs and symptoms and strict return precautions, and when to return to the emergency department. They verbalized understanding and feel safe for discharge at this time. Medications Administered Discontinued Medications Generic Name Dose Route Start Last Admin Trade Name Fallon PRN Reason Stop Dose Admin Oxycodone HCl 5 mg 06/18/24 18:00 06/18/24 18:17 Oxycodone Hcl Immed Release 5 Mg Tablet PO 06/18/24 18:01 5 mg ONCE ONE Administration Medical Decision Making Medical Decision Making [facility] Narrative: 59-year-old female with a past medical history of chronic abdominal and pelvic pain, anxiety, depression, chronic back pain, previous back surgery in , interstitial cystitis, ulcerative colitis, colostomy, presenting to the ED via EMS today complaining of acute on chronic pelvic and low back pain. On exam vital signs stable, NAD, nontoxic appearing, physical exam as noted above. Abdomen is soft and nontender. MSK reproducible back tenderness. No midline spinous tenderness or red flag symptoms. Ambulating with steady gait. No saddle anesthesia. Concern for acute on chronic pain. Low suspicion for acute intra-abdominal pathology including appendicitis/diverticulitis or ovarian pathology. Rule out UTI. Low suspicion for cauda equina, cord compression, fracture Plan: Labs and UA ordered in triage[facility], 6 tablets of 5 mg of Oxycodone on 06/13 Please refer to course for remaining clinical decision making, interpretation of labs/imaging results, and discussions with consultants and/or family members. Differential Diagnosis Differential Diagnoses: The differential diagnosis associated with the presentation includes As above Admission/Observation Consideration of admission/observation: Escalation of care including admission/observation considered Lab Data [facility] Lab Attestation statement: I reviewed the patient's lab results. 06/18/24 16:40 06/18/24 16:40 Labs: Lab Results 06/18/24 Range/Units 16:40 WBC 5.7 (4.8-10.8) X10*3/uL RBC 3.73 L (4.20-5.50) X10*6/uL Hgb 7.9 L (12.0-16.0) g/dl Hct 26.7 L (37.0-47.0) % MCV 71.6 L (80.0-98.0) fL MCH 21.2 L (27.0-33.0) pg MCHC 29.6 L (31.0-35.0) g/dl RDW 18.8 H (11.0-16.0) % Plt Count 286 D (160-400) X10*3/uL MPV 9.4 (9.4-12.3) fL Immature Gran % (Auto) 0.2 (0.0-0.4) % Neut % (Auto) 48.2 (45-73) % Lymph % (Auto) 40.9 H (20-40) % [place] % (Auto) 9.1 (2-11) % Eos % (Auto) 1.1 (0-4) % Baso % (Auto) 0.5 (0-2) % Lymph # (Auto) 2.3 (1.2-4.9) X10*3/uL [place] # (Auto) 0.5 (0.1-1.2) X10*3/uL Eos # (Auto) 0.1 (0.0-0.4) X10*3/uL Baso # (Auto) 0.0 (0.0-0.2) X10*3/uL Abs Immat Gran (auto) 0.01 (0.00-0.03) X10*3/uL Absolute Neuts (auto) 2.8 (2.0-8.3) x10*3/uL Absolute Nucleated RBC 0.000 (0.0-0.012) X10*3/uL Nucleated RBC % (auto) 0.0 (0.0-0.2) /100WBC Sodium 139 (135-145) mmol/L Potassium 4.4 D (3.3-5.1) mmol/L Chloride 107 (96-108) mmol/L Carbon Dioxide 24 (22-29) mmol/L Anion Gap 12 (12-20) BUN 22 H (9-16) mg/dL Creatinine 0.75 (0.5-1.4) mg/dL Estim Creat Clear Calc 68.2 Estimated GFR > 60 Random Glucose 86 (60-115) mg/dL Calcium 9.3 (8.4-10.2) mg/dL Magnesium 2.1 (1.6-2.6) mg/dL Total Bilirubin 0.1 (0.0-1.0) mg/dL AST 17 (5-31) U/L ALT 6 (0-31) U/L Alkaline Phosphatase 111 (39-117) U/L Total Protein 7.2 (6.5-8.0) g/dL Albumin 3.9 (3.5-5.0) g/dL Beta HCG, Quant < 2 mIU/mL Radiology Impression Discussion of test interpretation with radiology: I have reviewed the radiologist's reading. External Record Review External record reviewed: Inpatient record, Office record, Outpatient record, Prior outpatient labs, Prior outpatient radiology, Primary care record and Outside ED record Tests considered The following testing was considered but not selected: As above Prescription Management I considered prescription management with: Pain Medication Chronic Conditions Patient?s care impacted by: Other Social Determinants Patient?s care significantly limited by Social Determinants of Health including: Inadequate housing, Low income, Alcoholism and drug addiction in family, Problems related to primary support group, Unemployment, Problems related to employment and Other Social Determinant of Health Discharge Plan Discharge Clinical Impression: Chronic back pain, Chronic abdominal pain Patient Disposition: Home, Self-Care Instructions: Chronic Back Pain (DC), Chronic Abdominal Pain (ED) Additional Instructions: You have chronic anemia. Please follow-up with your primary care doctor in regards to this and or hematology Continue other prescribed medications. In addition continue taking oxycodone for severe pain for the next 3 days If her symptoms persist or worsen, pain becomes unbearable, you are unable to walk, have fever, persistent nausea/vomiting return to the emergency department Prescriptions: New oxycodone 5 mg capsule 5 mg PO BID PRN (Reason: pain (scale score 7-10)) 3 Days Qty: 6 0RF Rx Instructions: Partial Fill upon patient request. No Action phenazopyridine [Pyridium] 200 mg tablet 200 mg PO TID PRN (Reason: urinary burning) Qty: 20 1RF Rx Instructions: use with food belladonna alkaloids-opium 16.2-30 mg suppository 1 supp ME .nightly 30 Days Qty: 30 0RF Rx Instructions: Partial Fill upon patient request.. belladonna alkaloids-opium 16.2-60 mg suppository 1 supp ME DAILY PRN (Reason: pain) 30 Days Qty: 30 0RF Rx Instructions: Partial Fill upon patient request. oxybutynin chloride 5 mg tablet extended release 24hr 5 mg PO DAILY 30 Days Qty: 30 1RF oxycodone 5 mg tablet 5 mg PO BID PRN (Reason: pain) 3 Days Qty: 6 0RF Rx Instructions: Partial Fill upon patient request. albuterol sulfate [ProAir HFA] 90 mcg/actuation Hfa Aerosol Inhaler 2 puff INHALATION Q4-6H PRN (Reason: Shortness Of Breath) trazodone 50 mg tablet 50 mg PO BEDTIME lidocaine 5 % adhesive patch,medicated 1 patch topical DAILY Qty: 30 0RF Rx Instructions: leave on most painful area for up to 12 hrs ferrous sulfate 325 mg (65 mg iron) tablet 325 mg PO DAILY Qty: 30 0RF adalimumab 40 mg/0.4 mL pen injector kit 40 mg subcut .Q 14 DAYS metoprolol succinate 25 mg tablet extended release 24 hr 12.5 mg PO DAILY omeprazole 20 mg capsule,delayed release(DR/EC) 20 mg PO DAILY ondansetron 4 mg tablet,disintegrating 4 mg PO BID PRN (Reason: nausea/vomiting) amitriptyline 10 mg tablet 10 mg PO BEDTIME sertraline 50 mg tablet 50 mg PO DAILY primidone 50 mg tablet 50 mg PO BID lorazepam 0.5 mg tablet PO trazodone 100 mg tablet 100 mg PO BEDTIME Referrals: [facility] [place] [facility] [Provider Group] [facility] [place] [facility] [Provider Group] Brett Su MD [Primary Care Provider] - Print Language: Egyptian
[2024-06-18] MEDS: oxyCODONE HCl Immed Release 5 MG TABLET PO (18:17)
[2024-06-18 18:52] VITALS: BP 126/66; PULSE 88; RESP 20; TEMP 36.8; O2SAT 100
[2024-06-18 19:29] VITALS: BP 126/66; PULSE 88; RESP 20; TEMP 36.8; O2SAT 100
== END 2024-06-18 19:29 | disposition home or self-care (01) ==
PROVIDERS: Physician Assistant; Emergency Provider Emergency Medicine Emergency Medical Services; PCP Internal Medicine
DX: M54.50 Low back pain, unspecified (principal); R10.2 Pelvic and perineal pain; F17.210 Nicotine dependence, cigarettes, uncomplicated; Z79.899 Other long term (current) drug therapy
CPT/HCPCS: 36415; 80053; 83735; 84702; 85025; 99283

== ENCOUNTER 2024-07-08 08:35 | Emergency (ER) | payer OTHER, SELFPAY ==
[2024-07-08 08:50] VITALS: BP 136/60; PULSE 68; O2SAT 100
[2024-07-08 08:54] VITALS: BP 116/69; PULSE 71; RESP 18; TEMP 36.6; O2SAT 100; BMI 19.6
--- NOTE | 2024-07-08 09:04 | ED.GENADULT ---
HPI - General Adult General Chief complaint: General Medical Stated complaint: back and pelvic pain Time Seen by Provider: 07/08/24 08:45 Source: patient and EMS Mode of arrival: EMS Limitations: no limitations History of Present Illness ED Provider: MILTON Jeong HPI narrative: This is a 59-year-old female history of interstitial cystitis, with bladder stimulator in place, pelvic pain, lower back pain ongoing for the past few days. She states that this is her chronic pain and it seems like it is flaring she took oxycodone at home which she usually takes however not helping. She is in tears in his asking for help to find her a back specialist. She reports pain 10/ however unchanged from her typical pain. Patient denies nausea, vomiting, fevers, chills, chest pain, shortness of breath, headache, vision changes, dizziness, weakness. Related Data Home Medications ?Medication ?Instructions ?Recorded ?Confirmed albuterol sulfate 90 mcg/actuation 2 puff inhalation Q4-6H PRN 04/25/20 03/09/24 aerosol inhaler (ProAir HFA) Shortness Of Breath adalimumab 40 mg/0.4 mL 40 mg subcut .Q 14 DAYS 06/21/20 03/09/24 subcutaneous pen kit metoprolol succinate 25 mg 12.5 mg PO DAILY 08/08/21 03/09/24 tablet,extended release 24 hr omeprazole 20 mg capsule,delayed 20 mg PO DAILY 11/03/21 03/09/24 release ondansetron 4 mg disintegrating 4 mg PO BID PRN nausea/vomiting 11/17/22 03/09/24 tablet trazodone 50 mg tablet 50 mg PO BEDTIME 10/15/23 03/09/24 lorazepam 0.5 mg tablet mg PO 04/07/24 trazodone 100 mg tablet 100 mg PO BEDTIME 04/07/24 amitriptyline 10 mg tablet 10 mg PO BEDTIME 06/13/24 primidone 50 mg tablet 50 mg PO BID 06/13/24 sertraline 50 mg tablet 50 mg PO DAILY 06/13/24 Previous Rx's ?Medication ?Instructions ?Recorded phenazopyridine 200 mg tablet 200 mg PO TID PRN urinary burning 01/29/24 (Pyridium) #20 tabs belladonna alkaloids-opium 16.2 1 supp ND .nightly 30 days #30 ea 04/04/24 mg-30 mg rectal suppository belladonna alkaloids-opium 16.2 1 supp ND DAILY PRN pain 30 days 04/05/24 mg-60 mg rectal suppository #30 ea ferrous sulfate 325 mg (65 mg 325 mg PO DAILY #30 tabs 04/20/24 iron) tablet lidocaine 5 % topical patch 1 patch topical DAILY #30 ea 04/20/24 oxybutynin chloride 5 mg 5 mg PO DAILY 30 days #30 tabs 05/15/24 tablet,extended release 24 hr oxycodone 5 mg capsule 5 mg PO BID PRN pain (scale score 06/18/24 7-10) 3 days #6 caps oxycodone 5 mg tablet 5 mg PO Q8H PRN pain #6 tabs 06/19/24 oxycodone 5 mg tablet 5 mg PO TID PRN pain 30 days #60 06/23/24 tabs Allergies Allergy/AdvReac Type Severity Reaction Status Date / Time amoxicillin [From AUGMENTIN] Allergy Severe SEVERE Verified 07/08/24 08:55 DIARRHEA Hikbkor-KZO-OtA Reductase Allergy Intermediate muscle Verified 07/08/24 08:55 Inhibitor aches, [[id number] REDUCTASE cramps INHIBITOR] acetaminophen [ACETAMINOPHEN] AdvReac Severe GI upset. Verified 07/08/24 08:55 Pt confirmed NOT allergic to oxycodone NSAIDS (Non-Steroidal AdvReac Severe Gastrointestinal Verified 07/08/24 08:55 Anti-Inflamma Upset Review of Systems Review of Systems: Yes all other systems are reviewed and are negative PMFSH Past Medical History Attestation statement: The following information was validated with the patient. Source: old records reviewed and nursing notes reviewed Medical History Colostomy in place On beta morgan at home Anxiety SVT (supraventricular tachycardia) Depression Back pain History of gastrostomy tube placement Hx of ulcerative colitis Hx of cystitis History of anxiety Asthma Elevated cholesterol Surgical History History of tubal ligation History of endometrial ablation History of bladder surgery Social History Social History Household Members: Significant Other Housing: Apartment Are you a primary healthcare consultant to a significant other at home: No Do you presently have visiting nurse or other home services: No Alcohol intake: former Patient Tobacco Use Status: Current everyday Tobacco user Tobacco use type: Cigarette Cigarettes Per Day: 4 Years Smoked: 22 Smoked in Last 30 Days: Yes Use of substances other than those prescribed or required for medical reasons: No Advance Directives: No Advance Directives Information Provided: Yes Do you have a plan to hurt others: No Plan Patient : No Current occupational status: disabled Physical Exam ED Vital Signs: Vital Signs - 24 hr 07/08/24 08:54 Temperature 97.8 F Pulse Rate 71 Respiratory Rate 18 Blood Pressure 116/69 Pulse Oximetry 100 BMI result Body Mass Index 19.6 vss Appearance: Alert.? Oriented X3.? No acute distress.? Head: Normocephalic, atraumatic, no step-offs or deformities Eyes: Pupils equal, round and reactive to light.?Neck: Normal inspection.? Neck supple.? CVS: Normal heart rate and rhythm.? Pulses normal.? Respiratory: No respiratory distress.? Breath sounds normal.? Abdomen: Soft and nontender.? Skin: Skin warm and dry.? Normal skin color.? Normal skin turgor.? Extremities: No lower extremity edema.? No calf ttp. 5/5 strength to bilateral upper and lower extremities Back: No midline tenderness, no C-spine tenderness, full range of motion, no CVA tenderness bilaterally + discomfort with palpation of paraspinous muscles in the lumbosacral region bilaterally. Neuro: Oriented X 3.? No motor deficit.? No sensory deficit. CN 2-12 intact no saddle anesthesias Course Reevaluation(s) Reevaluation #1: Patient feeling better. UA with leukopenia and normocytic anemia. Chemistry no acute findings needing intervention. Mild elevation in BUN however patient tolerating p.o.. Will encourage p.o. hydration. UA without infection. Improved pain with morphine and Zofran. Patient will be discharged with outpatient follow-up. Will also have her follow up with Dr. Villatoro neuro spine. Educated patient on diagnosis and treatment plan, answered all question, patient verbalizes understanding. At this time patient will be discharged home, advised to return with new or worsening symptoms. Educated on worrisome signs and symptoms and when to return. At this time I feel comfortable discharge home. Time: 11:53 Medications Administered Discontinued Medications Generic Name Dose Route Start Last Admin Trade Name Fallon PRN Reason Stop Dose Admin Morphine Sulfate 4 mg 07/08/24 09:04 07/08/24 09:14 Morphine Sulfate 4 Mg/Ml Cartridge IVPUSH 07/08/24 09:05 4 mg ONCE ONE Administration Protocol Ondansetron HCl 4 mg 07/08/24 09:04 07/08/24 09:13 Ondansetron Hcl 4 Mg/2 Ml Vial IVPUSH 07/08/24 09:05 4 mg ONCE ONE Administration Medical Decision Making Medical Decision Making [facility] Narrative: 59-year-old female presents with low back pain, pelvic pain all of which are chronic issues pain not improving. Physical exam lumbosacral pain bilaterally. No saddle anesthesias. History and physical exam concerning for chronic back pain and pelvic pain. She has a history of interstitial cystitis as well as lumbar radiculopathy which are likely flaring up this time. Unlikely cauda equina, cord compression, epidural abscess Plan labs, pain control Differential Diagnosis Differential Diagnoses: The differential diagnosis associated with the presentation includes (History and physical exam concerning for chronic back pain and pelvic pain. She has a history of interstitial cystitis as well as lumbar radiculopathy which are likely flaring up this time. Unlikely cauda equina, cord compression, epidural abscess) Admission/Observation Consideration of admission/observation: Escalation of care including admission/observation considered (unlikely ) Lab Data [facility] Lab Attestation statement: I reviewed the patient's lab results. 07/08/24 09:23 07/08/24 09:23 Labs: Lab Results 07/08/24 07/08/24 Range/Units 09:23 11:40 WBC 4.5 L (4.8-10.8) X10*3/uL RBC 3.83 L (4.20-5.50) X10*6/uL Hgb 8.1 L (12.0-16.0) g/dl Hct 26.1 L (37.0-47.0) % MCV 68.1 L (80.0-98.0) fL MCH 21.1 L (27.0-33.0) pg MCHC 31.0 (31.0-35.0) g/dl RDW 18.6 H (11.0-16.0) % Plt Count 269 (160-400) X10*3/uL MPV 8.8 L (9.4-12.3) fL Immature Gran % (Auto) 0.4 (0.0-0.4) % Neut % (Auto) 58.5 (45-73) % Lymph % (Auto) 29.4 (20-40) % [place] % (Auto) 10.4 (2-11) % Eos % (Auto) 0.9 (0-4) % Baso % (Auto) 0.4 (0-2) % Lymph # (Auto) 1.3 (1.2-4.9) X10*3/uL [place] # (Auto) 0.5 (0.1-1.2) X10*3/uL Eos # (Auto) 0.0 (0.0-0.4) X10*3/uL Baso # (Auto) 0.0 (0.0-0.2) X10*3/uL Abs Immat Gran (auto) 0.02 (0.00-0.03) X10*3/uL Absolute Neuts (auto) 2.6 (2.0-8.3) x10*3/uL Absolute Nucleated RBC 0.000 (0.0-0.012) X10*3/uL Nucleated RBC % (auto) 0.0 (0.0-0.2) /100WBC Sodium 136 (135-145) mmol/L Potassium 4.5 (3.3-5.1) mmol/L Chloride 105 (96-108) mmol/L Carbon Dioxide 23 (22-29) mmol/L Anion Gap 13 (12-20) BUN 21 H (9-16) mg/dL Creatinine 0.71 (0.5-1.4) mg/dL Estim Creat Clear Calc 72.1 Estimated GFR > 60 Random Glucose 92 (60-115) mg/dL Calcium 9.4 (8.4-10.2) mg/dL Total Bilirubin 0.2 (0.0-1.0) mg/dL AST 17 (5-31) U/L ALT < 6 (0-31) U/L Alkaline Phosphatase 102 (39-117) U/L Total Protein 7.2 (6.5-8.0) g/dL Albumin 3.8 (3.5-5.0) g/dL Urine Color Yellow Urine Appearance Clear Urine pH 5.5 (5.0-9.0) Ur Specific [place] 1.015 (1.005-1.025) Urine Protein Negative (Neg-Trace) mg/dL Urine Glucose (UA) Negative (Negative) mg/dL Urine Ketones Negative (Negative) mg/dL Urine Blood Negative (Negative) Urine Nitrite Negative (Negative) Ur Leukocyte Esterase Negative (Negative) External Record Review External record reviewed: Inpatient record, Office record, Outpatient record, Prior outpatient labs, Prior outpatient radiology, Primary care record and Outside ED record Chronic Conditions Patient?s care impacted by: Other (Interstitial cystitis, lumbar radiculopathy) Social Determinants Patient?s care significantly limited by Social Determinants of Health including: Other Social Determinant of Health Discharge Plan Discharge Clinical Impression: Interstitial cystitis, Lumbar radiculopathy Patient Disposition: Home, Self-Care Instructions: Lumbar Radiculopathy (ED), Back Pain (ED), Pelvic Pain (ED), Interstitial Cystitis (ED) Additional Instructions: Take your medications as prescribed. If you were prescribed antibiotics today, it is important that you take your medication to their entirety, do not skip any doses, do not finish them early. Follow-up with your primary care provider this week. Return to the emergency department with new or worsening symptoms. Such as fevers, chills, chest pain, shortness of breath, nausea, vomiting, dizziness, headache, vision changes, lethargy In case of emergency call 911 Prescriptions: No Action phenazopyridine [Pyridium] 200 mg tablet 200 mg PO TID PRN (Reason: urinary burning) Qty: 20 1RF Rx Instructions: use with food belladonna alkaloids-opium 16.2-30 mg suppository 1 supp ND .nightly 30 Days Qty: 30 0RF Rx Instructions: Partial Fill upon patient request.. belladonna alkaloids-opium 16.2-60 mg suppository 1 supp ND DAILY PRN (Reason: pain) 30 Days Qty: 30 0RF Rx Instructions: Partial Fill upon patient request. oxybutynin chloride 5 mg tablet extended release 24hr 5 mg PO DAILY 30 Days Qty: 30 1RF oxycodone 5 mg tablet 5 mg PO TID PRN (Reason: pain) 30 Days Qty: 60 0RF Rx Instructions: Partial Fill upon patient request. albuterol sulfate [ProAir HFA] 90 mcg/actuation Hfa Aerosol Inhaler 2 puff INHALATION Q4-6H PRN (Reason: Shortness Of Breath) trazodone 50 mg tablet 50 mg PO BEDTIME lidocaine 5 % adhesive patch,medicated 1 patch topical DAILY Qty: 30 0RF Rx Instructions: leave on most painful area for up to 12 hrs ferrous sulfate 325 mg (65 mg iron) tablet 325 mg PO DAILY Qty: 30 0RF oxycodone 5 mg capsule 5 mg PO BID PRN (Reason: pain (scale score 7-10)) 3 Days Qty: 6 0RF Rx Instructions: Partial Fill upon patient request. oxycodone 5 mg tablet 5 mg PO Q8H PRN (Reason: pain) Qty: 6 0RF Rx Instructions: Partial Fill upon patient request. adalimumab 40 mg/0.4 mL pen injector kit 40 mg subcut .Q 14 DAYS metoprolol succinate 25 mg tablet extended release 24 hr 12.5 mg PO DAILY omeprazole 20 mg capsule,delayed release(DR/EC) 20 mg PO DAILY ondansetron 4 mg tablet,disintegrating 4 mg PO BID PRN (Reason: nausea/vomiting) amitriptyline 10 mg tablet 10 mg PO BEDTIME sertraline 50 mg tablet 50 mg PO DAILY primidone 50 mg tablet 50 mg PO BID lorazepam 0.5 mg tablet PO trazodone 100 mg tablet 100 mg PO BEDTIME Referrals: Brett Su MD [Primary Care Provider] - 2 days Jordan Thomas MD, PhD [Physician] - 3 days Stand Alone Forms: Work/School Release Print Language: Tristanian
[2024-07-08] MEDS: ondansetron HCL 4 MG/2 ML VIAL IVPUSH (09:13)
[2024-07-08] MEDS: Morphine Sulfate 4 MG/ML CARTRIDGE IVPUSH (09:14)
--- NOTE | 2024-07-08 09:16 | PC.NURSE ---
patient a&ox3, pt c/o 03/23 pain to back and pelvic area, pt medicated per order, labs to be drawn by tech, rr equal/non labored-lungs clear vss,, call nino within reach, plan of care ongoing
[2024-07-08 09:28] LABS: MANUAL DIFF FLAG NO
--- OUTSIDE RECORDS SUMMARY | 2024-07-08 09:29 | XMS_ITS ---
Author Organization [facility] on Address Unknown Allergies, Adverse Reactions, Alerts Substance Reaction Status Noted Date Resolved Date Simvastatin active 01/05/2023 Ibuprofen Nausea active 01/05/2023 Augmentin Nausea active 01/05/2023 Amoxicillin active 01/05/2023 Acetaminophen Nausea active 01/05/2023 Problems Problem Status Start Date End Date METABOLIC ENCEPHALOPATHY (Primary) (G93.41 - ICD-10-CM ) ACTIVE 01/05/2023 ENTEROCOLITIS DUE TO CLOSTRI DIUM DIFFICILE, NOT SPECIFIED RECURRENT (A04.72 - ICD-10-CM) ACTIVE 01/05/2023 HYPOKALEMIA (E87.6 - ICD-10-CM) ACTIVE ULCERATIVE COLITIS, UNSPECIF IED, WITHOUT COMPLICATIONS (K51.90 - ICD-10-CM) ACTIVE 01/05/2023 UNSPECIFIED SEVERE PROTEIN-C ALORIE MALNUTRITION (E43 - ICD-10-CM) ACTIVE 01/05/2023 SUPRAVENTRICULAR TACHYCARDIA (I47.1 - ICD-10-CM) ACTIV E 01/05/2023 INTERSTITIAL CYSTITIS (CHRON IC) WITHOUT HEMATURIA (N30.10 - ICD-10-CM) ACTIVE 01/05/2023 OTHER ASTHMA (J45.998 - ICD-10-CM) ACTIVE 2022 FIBROMYALGIA (M79.7 - ICD-10-CM) ACTIVE 01/06/20 23 ANXIETY DISORDER, UNSPECIFIED (F41.9 - ICD-10-CM) ACTI VE 01/05/2023 IRRITABLE BOWEL SYNDROME, UNSPECIFIED (K58.9 - ICD-10- CM) ACTIVE 01/05/2023 HYPERLIPIDEMIA, UNSPECIFIED (E78.5 - ICD-10-CM) ACTIVE 01/05/2023 ORTHOSTATIC HYPOTENSION (I95.1 - ICD-10-CM) ACTIVE 01/05/2023 MAJOR DEPRESSIVE DISORDER, R ECURRENT, UNSPECIFIED (F33.9 - ICD-10-CM) ACTIVE 01/05/2023 THROMBOCYTOPENIA, UNSPECIFIED (D69.6 - ICD-10-CM) ACTI VE 01/05/2023 INSOMNIA, UNSPECIFIED (G47.00 - ICD-10-CM) ACTIVE 01/05/2023 ANEMIA, UNSPECIFIED (D64.9 - ICD-10-CM) ACTIVE 0 01/05/2023 ANOREXIA NERVOSA, UNSPECIFIED (F50.00 - ICD-10-CM) ACT RADHA 01/05/2023 Encounters Encounter Performer Performer Role Encounter Diagnoses Location Date Discharge - Discharged to home or self care - [facility] - Private home/apt. with home health services [facility] [place] 01/05/2023 01:19 pm EDT - 01/28/2023 10:47 am EDT Immunizations Vaccine Date TDAP( Tetanus/Diptheria/Perutssis) 07/16 12:00 am EST SARS-COV-2 (COVID-19) 10/03/2020 12:00 a m EDT SARS-COV-2 (COVID-19) 09/12/2020 12:00 a m EDT Shingrix 08/06/2020 12:00 am EST Prevnar 20 Pneumococcal conjugate (PCV20 ) 01/18/2023 08:55 am EDT SARS-COV-2 (COVID-19 BOOSTER) 01/27/2023 03:00 pm EDT Social History
--- OUTSIDE RECORDS SUMMARY | 2024-07-08 09:29 | XMS_ITS | Data Portability ---
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 d assistance as needed. We discussed the diagnostic uncertaint y of home visits and associated risks. We discussed the need to seek care urgently/e mergently in the setting of any new or worsening symptoms. Health Concerns Section Related Observation LastModified by Organization Detai ls LastModified Time None Recorded Concern Status LastModified by Organization Details LastModified Time None Recorded Advance Directives Directive None Recorded Payers Encounter Date Sequence Insurance Name Policy Number Policy Babb Covered Member ID Babb Member ID Guarantor Name 07/30/2023 1 [facility] [employer] - DOS ON OR AFTER 2022 - DUAL ELIGIBLE - [employer] AND ONE CARE (MEDICARE REPLACEMENT/ADV ANTAGE - HMO) Randi Desilets [id number] Randi A Desilets 08/24/2023 1 [facility] [employer] - DOS ON OR AFTER 2022 - DUAL ELIGIBLE - [employer] AND ONE CARE (MEDICARE REPLACEMENT/ADV ANTAGE - HMO) Randi Desilets [id number] Randi A Desilets 10/11/2023 1 [facility] [employer] - DOS ON OR AFTER 2022 - DUAL ELIGIBLE - [employer] AND ONE CARE (MEDICARE REPLACEMENT/ADV ANTAGE - HMO) Randi Desilets [id number] Randi A Desilets 01/23/2024 1 [facility] [employer] - DOS ON OR AFTER 2022 - DUAL ELIGIBLE - [employer] AND ONE CARE (MEDICARE REPLACEMENT/ADV ANTAGE - HMO) Randi Desilets [id number] Randi A Desilets 04/18/2024 1 [facility] - DOS ON OR AFTER 2022 - DUAL ELIGIBLE - [employer] OPTIONS AND ONE CARE (MEDICARE REPLACEMENT/ADV ANTAGE - HMO) Randi Lowery [id number] Randi Lowery Notes Date Note Type Note Provider Name and Address Organization Details Recorded Time 07/30/2023 text/html [facility] Nurse Triage Notes (Leslie Lopez): Chief Complaints: Abdominal Pain PMH: COPD/Asthma Allergies: Acetaminophen, Ibuprofen Comments: Member called to request pain management for exacerbation of suprapubic pain that started 10 min ago. Member with history of interstitial cystitis. Is scheduled for surgery on 08/03. MIH last on 07/27 for same pain, Toradol administered. ....................... ....................... ....................... ....................... ....................... ....................... ... Gift Packer Note From Gómez Kumar: Pt co abdominal pain. Has cystitis. Having surgery Wednesday. Was seen by [facility] Wednesday was given toradol with relief ..pt wanting toradol to hold her over for the weekend until surgery. Pt denies urinary symptoms, fever nausea vomiting diarrhea , cp sob, kidney problems. Baseline vitals assessed. [facility] contacted and 30mg toradol IM. Pt education on signs indicating the ER. Gift Packer Allergies: Acetaminophen, Ibuprofen ....................... ....................... ....................... ....................... ....................... ....................... ... Disposition: Ivan Sofiya Frye MD [address] [facility],[address], [place], [address], [place] [employer] 07/30/2023 21:05:26 08/24/2023 text/html CRC Nurse Triage Notes (Dave Cerna): Patient Reports: Inability to tolerate foods, fluids or daily medications Denies: Vague abdominal pain greater than 24 hours Nausea with or without vomiting Chief Complaints: Weakness/Lethargy, Dehydration, Abdominal Pain PMH: COPD/Asthma Allergies: Acetaminophen, Ibuprofen Comments: Registered Nurse Practitioner verified the member's name//address and phone number. Education provided on the response time and the member was advised to monitor reported s/s and seek emergency treatment if needed. Member is reporting abdominal discomfort - Denies N/V/D - Denies fever - Decreased PO intake - S/S started a few hours ago - Member reports Toradol is very helpful. Member is requesting pain management. ....................... ....................... ....................... ....................... ....................... ....................... ... Gift Packer Note From Spencer Reis: 58 yo F c/o Abd pain x 6 hours. Pt has a hx of UC, for a few years. Pt had a colonoscopy last Wednesday, with biopsies. Pt denies hematochezia. Pt denies hematuria. Pt reports lack of appetite, and nausea but denies V/D. Pt is on a diet for UC and followers it as best as she can. Pt describes the pain as sharp stabbing pain. Pt reports last night was about 4-6 weeks ago and needs a shot of Toradol . Pt has not taken anything for the pain. Pt took Aleve, without relief, twice today. for the last two months pt has needed Toradol 30 mg each time, each month. Allergies Ibuprofen, ASA, Augmentin, simvastatin. Pt reports drinking sahara chung, and some water. 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 30mg given left deltoid. explained risks of fpc use of Toradol/NSAIDs. discussed red flags with pt and friend. ....................... ....................... ....................... ....................... ....................... ....................... ... Disposition: Fulfilled Duong Panchal MD [address] [facility],[address], [place], [address], [employer] 08/24/2023 22:57:14 10/11/2023 text/html CRC Nurse Triage Notes (Mayra Jaime): Reason For Request: Pt reporting introsystalitis, pain, nausea (for a couple days), states bladder surgery for next week>is requesting toradol and zofran Chief Complaints: Nausea/Vomiting, Pain PMH: COPD/Asthma Allergies: Acetaminophen, Ibuprofen Comments: Registered Nurse Practitioner verified the member's name//address and phone number. Member is a 58 yr old female, A/o3 PMH Bladder issues. COPD Member calling with c/o pain and nausea , Member does not have zofran Member is having sx hyperextension to drain the bladder , complete every 2-3 months. Member was able to eat and drink. Member has not taken anything for the pain Member is not on blood thinner or kidney disease Education provided on the response time and the member was advised to monitor reported s/s and seek emergency treatment if needed ....................... ....................... ....................... ....................... ....................... ....................... ... Gift Packer Note From Corey Moralez: Pt reporting acute on chronic pain s/t interstitial cystitis. Pt also reporting mild nausea w/o vomiting. Pt has her usual treatment for her bladder next Wednesday. Pt denies any new or differing sx. Pt is alert, NAD. VSS. Afebrile. Non focal neuro exam. Pt treated with ketorolac 30 mg IM, left deltoid and ondansetron 4 mg ODT. Red flags reviewed. ....................... ....................... ....................... ....................... ....................... ....................... ... Disposition: Fulfilled Nelly Pérez MD [address] [facility],[address], [place], [address], [employer] 10/11/2023 21:24:08 01/23/2024 text/html CRC Nurse Triage Notes (Lawanda Moeller): Reason For Request: Pt reporting abdominal pain & nausea which began about 3 to 4 hours ago, worsening. Chief Complaints: Nausea/Vomiting, Abdominal Pain PMH: COPD/Asthma Allergies: Acetaminophen, Ibuprofen Comments: Per dispatch note, mbr calling reporting N/V/ abdominal pain; call disconnected prior to this RN speaking to member. Will go ahead and request visit for mbr while I await callback, VM left for mbr around 1415 -Abdullahi MoellerAfter multiple phone attempts, this RN got in contact with mbr around 1450. Registered Nurse Practitioner verified the member's name//address and phone number. Mbr reporting generalized abdominal discomfort as well as nausea on going for the last few hours. Mbr reports awaiting bladder surgery which is scheduled for next month. [facility] has been seen in the past by [facility] for similar and [facility] Toradol has worked well for her pain in the past. Education provided on the response time and the member was advised to monitor reported s/s and seek emergency treatment if needed -Abdullahi Moeller RN ....................... ....................... ....................... ....................... ....................... ....................... ... Gift Packer Note From Yennifer Celeste: Pt reports 2-3 days of nausea, vomiting with lower abd pain. A&ox3, vss, afebrile; ? cramping? in lower quadrants, mildly painful on palpation, denies cp, sob, back or flank pain, headache, dizziness, lightheadedness. [facility] consulted, 4mg zofran and 15mg toradol IM administered. Pt will follow up with pcp Wednesday. Red flags reviewed. Gift Packer Allergies: Acetaminophen, Ibuprofen ....................... ....................... ....................... ....................... ....................... ....................... ... Disposition: Fulfilled Tha Pierson MD [address] [facility],[address], [place], [address], [employer] 01/23/2024 18:50:39 04/18/2024 text/html CRC Nurse Triage Notes (Leslie [...] pelvic muscle- has follow up with Specialist. ....................... ....................... ....................... ....................... ....................... ....................... ... Gift Packer Note From Corey Moralez: This 59-year-old female [...] is soft, nontender, nondistended. No lower extremity edema.[facility] contacted and patient treated with ketorolac 30 [...] ask questions and agree with this plan. ....................... ....................... ....................... ....................... ....................... ....................... ... [facility] Consulted: Nelly Pérez ....................... ....................... ....................... ....................... ....................... ....................... ... Disposition: Ivan Pérez MD [address] [facility],[address], [place], [address], [employer] 04/18/2024 19:46:24 OBGyn Episode No OBEpisode recorded.
--- OUTSIDE RECORDS SUMMARY | 2024-07-08 09:29 | XMS_ITS | Continuity of Care Document ---
Author Organization [facility] Address [address] [place] [address] ve [address] [place] [address]- Care Team Providers Care [employer] Name Role Phone Brett uS MD Primary Care Physician [phone] Encounter [facility] Date(s): 05/15/24 - 06/14/24 [facility] [address] [place], [place] [address] Encounter Type: Triage Allergies, Adverse Reactions, Alerts [...] Leno rded influenza virus vaccine, inactivated 3 10/1/13 Gi opal influenza virus vaccine, inactivated 05/03/08 Give n pneumococcal 20-valent conjugate vaccine 02/09/23 Given pneumococcal 20-valent conjugate vaccine 01/18/23 Recorded [id number] 12y+ bivalent booster vax 01/27/23 Recorded tetanus-diphtheria toxoids (Td) 07/16/21 Given SARS-CoV-2 mRNA (pllymse-odow-beoma) vax 07/16/21 Given Influenza Virus Vaccine (oldterm) [...] Given 1Result Comment: [03/08/2017] [facility] [place] 2Location History: [facility] 3Admin Note: [facility] 4Admin Note: per pt rcvd [facility] 5Admin Note: given in clinic 6Admin Note: WING 7Admin Note: clinic ronnie Medications Albuterol (Eqv-ProAir HFA) 90 mcg/inh inhalation aerosol 2 puffs, Inhalation, Every 6 hours, PRN NEEDED FOR WHEEZING, # 8.5 each, 2 Refills, Maintenance,04/03/24 8:24:00 AM EDT, [id number], 25, INHALE 2 PUFFS BY MOUTH EVERY [...] 5 Refills, Maintenance, 03/17/24 3:59:00 PMEDT, Tablet, [facility]/pharmacy #[id number], Partial fill upon patient request [...] Replace Required Details, Route to Pharmacy Electronically, [facility]/pharmacy #[id number], 163, cm, 03/17/24 15:48:00 EDT, [...] Refills, Maintenance, 03/17/24 4:10:00 PM EDT, Tablet, [facility]/pharmacy #[id number], Partial fill upon patient request [...] Refills, Maintenance, 04/06/24 10:57:00 AM EDT, Film, [facility]/pharmacy #[id number], Partial fill upon patient request [...] 4:10:00 PM EDT, Route to Pharmacy Electronically, [facility]/pharmacy #[id number], 163, cm, 03/17/24 15:48:00 EDT, [...] Tremor Confirmed Active Ulcerative colitis Confirmed Active 1pft c/w mild obstruction, no bronchodilater response Social History Social History Type Response Tobacco Use: 4 or less cigar ettes(less than 1/4 pack)/day in last 30 days. Other: Half a pack of cigarettes daily since age 25.. Sex Sex Representation Female (finding) Patient Care team information Care Team Personnel Name: Yoselyn Mccormick RN Position: [facility] RN Member Role: Primary Care Nurse Name: Rand Baez RN Position: [facility] RN Member Role: Primary Care Nurse Name: Bethany Soares RN Position: [facility] RN Member Role: Primary Care Nurse Name: Pam Harmon RN Position: [facility] RN Member Role: Primary Care Nurse Name: Graciela Harmon RN Position: [facility] RN Member Role: Primary Care Nurse Name: Stella Ramos RN Position: [facility] RN Member Role: Primary Care Nurse Name: Brett Su MD Position: [facility] Physician - Primary Care Member Role: PCP Address: [address] [place] [address]- Telecom: Name: Vangie Chun RN Position: [facility] RN Member Role: Primary Care Nurse Name: Leidy Gray RN Position: [facility] RN Member Role: Primary Care Nurse Name: Jimbo Boswell RN Position: [facility] RN Member Role: Primary Care Nurse Name: James Alvarez RN Position: [facility] RN Member Role: Primary Care Nurse Name: Milena Rios RN Position: [facility] RN Member Role: Primary Care Nurse Name: Oralia Ashley RN Position: [facility] RN Member Role: Primary Care Nurse Name: Phyllis Holman RN Position: [facility] RN Member Role: Primary Care Nurse Name: Raya Jewell RN Position: [facility] RN Member Role: Primary Care Nurse Name: Harini Aponte RN Position: [facility] RN Member Role: Primary Care Nurse Name: Dorita Brock RN Position: [facility] RN Member Role: Primary Care Nurse Name: Nya Liu RN Position: [facility] RN Member Role: Primary Care Nurse Name: Geri Galvan RN Position: [facility] RN Member Role: Primary Care Nurse Name: Eri Mars RN Position: [facility] RN Member Role: Primary Care Nurse Name: Lula Velasco RN Position: [facility] RN Member Role: Primary Care Nurse Name: Guerline Benavides RN Position: [facility] RN Member Role: Primary Care Nurse Name: Fatimah Galaviz RN Position: [facility] ED RN W/OE and Tasks Member Role: Primary Care Nurse Care Team Related Persons Name: BELKIS KIAN Name: MARTA LEWIS Name: GUERRERO AGUILAR Name: ITALO CORNEJO Insurance Providers Guarantor name: NICOLAS TAMAYO Health Plan Information #: 1 Payer: [facility]/[employer] CARE Member Number: NA Policy Number: NA Group Number: NA Health Plan Information #: 2 Payer: [employer] Member Number: NA Policy Number: NA Group Number: NA
[2024-07-08 09:32] LABS: Basophils Percent Auto 0.4 % (0-2); Eosinophils Percent Auto 0.9 % (0-4); Hematocrit 26.1 % (37.0-47.0); Hemoglobin 8.1 g/dl (12.0-16.0); Imm Gran Abs Auto 0.02 X10*3/uL (0.00-0.03); Imm Gran Pct Auto 0.4 % (0.0-0.4); Lymphocytes Absolute Auto 1.3 X10*3/uL (1.2-4.9); Lymphocytes Percent Auto 29.4 % (20-40); Mean Corpuscular Hemoglobin 21.1 pg (27.0-33.0); Mean Corpuscular Volume 68.1 fL (80.0-98.0); Mean Platelet Volume 8.8 fL (9.4-12.3); Monocytes Absolute Auto 0.5 X10*3/uL (0.1-1.2); Monocytes Percent Auto 10.4 % (2-11); Neutrophils Absolute Auto 2.6 x10*3/uL (2.0-8.3); Neutrophils Percent Auto 58.5 % (45-73); Platelet Count 269 X10*3/uL (160-400); Red Blood Count 3.83 X10*6/uL (4.20-5.50); Red Cell Distribution Width 18.6 % (11.0-16.0); White Blood Count 4.5 X10*3/uL (4.8-10.8)
[2024-07-08 09:50] LABS: Alanine Aminotransferase < 6 U/L (0-31); Albumin Level 3.8 g/dL (3.5-5.0); Alkaline Phosphatase 102 U/L (39-117); Anion Gap 13 (12-20); Aspartate Amino Transferase 17 U/L (5-31); Bilirubin Total 0.2 mg/dL (0.0-1.0); Blood Urea Nitrogen 21 mg/dL (9-16); Calcium 9.4 mg/dL (8.4-10.2); Carbon Dioxide 23 mmol/L (22-29); Chloride 105 mmol/L (96-108); Creatinine Clr Calc Pharmacy 72.1; Estimated Glomerular Filt Rate > 60; Glucose Random 92 mg/dL (60-115); Potassium 4.5 mmol/L (3.3-5.1); Sodium 136 mmol/L (135-145); Total Protein 7.2 g/dL (6.5-8.0)
[2024-07-08 11:47] LABS: Appearance Urine Clear; Color Urine Yellow; Glucose Urine UA Negative (Negative); Leukocyte Esterase Urine Negative (Negative); Nitrite Urine Negative (Negative); PH 5.5 (5.0-9.0); Specific Gravity - Urine 1.015 (1.005-1.025); Urine Blood Negative (Negative); Urine Ketones Negative (Negative); Urine Protein Negative (Neg-Trace)
--- NOTE | 2024-07-08 12:14 | PC.NURSE ---
Attempted to discharge patient, patient refused to review discharge paperwork, screaming about how she's in pain and refusing to leave. Demanding to speak w/ provider before she goes. IV removed. DC paperwork handed to patient. Patient escorted to chair in hallway. Provider Zayra made aware, charge Daysi made aware.
[2024-07-08 14:28] VITALS: BP 116/69; PULSE 71; RESP 18; TEMP 36.6; O2SAT 100
== END 2024-07-08 13:10 | disposition home or self-care (01) ==
PROVIDERS: Physician Assistant; Emergency Provider Emergency Medicine; PCP Internal Medicine
DX: N30.10 Interstitial cystitis (chronic) without hematuria (principal); M54.50 Low back pain, unspecified; R10.2 Pelvic and perineal pain; E78.5 Hyperlipidemia, unspecified; J45.909 Unspecified asthma, uncomplicated; F17.210 Nicotine dependence, cigarettes, uncomplicated; Z79.899 Other long term (current) drug therapy
CPT/HCPCS: 36415; 80053; 81003; 85025; 96374; 96375; 99284; J2270; J2405

== ENCOUNTER 2024-07-14 11:19 | Outpatient (AMB) | payer OTHER, SELFPAY ==
--- NOTE | 2024-07-14 11:48 | A.OFFVIS_ITS ---
Vital Signs 07/14/24 12:10 Height 5 ft 5 in Weight 119 lb BMI 19.8 BP 118/68 Blood Pressure Location Rt brachial Position Sitting Pulse 136 H Pulse Source Pulse Oximeter Intake Visit Reasons: Follow Up (patient Request) Intake Note: Patient states she last took oxycodone 4:30pm 07/13/24, patient was then sent to do UDS for opioid program to the lab on the first floor. Patient came back to office stating lab was closed,due to lab being closed on the first floor Urine was going to be done in office. When given specimen cup patients then went into the bathroom with patient. Due to this Oral swab was obtained and Urine was discarded.Patient then stated she just remembered that she did not give the correct time when she last took her medication she now states that she took it at 11:30 am on 07/13/24. Pain today 03/23 Nurse Informaticist Required: No Accompanied by: Spouse Allergies amoxicillin [From AUGMENTIN] Allergy (Severe, Verified 07/14/24 11:55) SEVERE DIARRHEA Wxsqvpd-ABD-RwF Reductase Inhibitor [YDYNWEP-MHG-YDE REDUCTASE INHIBITOR] Allergy (Intermediate, Verified 07/14/24 11:55) muscle aches, cramps acetaminophen [ACETAMINOPHEN] Adverse Reaction (Severe, Verified 07/14/24 11:55) GI upset. Pt confirmed NOT allergic to oxycodone NSAIDS (Non-Steroidal Anti-Inflamma Adverse Reaction (Severe, Verified 07/14/24 11:55) Gastrointestinal Upset HPI Comments Details: Patient presents today for follow up for chronic low back and pelvic pain and potential entrance to our opioid program. Patient reports recent ER visit on 07/08/24 for flare up in her back pain. She has pending lumbar spine MRI however she not eligible to undergo MRI due to Interstim bladder stimulator in place, not utilized by patient for over decade. She will follow up with Urology office to facilitate removal of bladder stimulator. Patient continues to receive oxycodone through Urology at this time and has continued need to continue palliative chronic opioid prescribing. MassPAT was reviewed and is consistent with her history. Patient is aware that this office can not prescribe until the UDS is reviewed and contracts are signed. Denies any recent cough, cold, infection, fever or any other significant changes in medical history since last office visit. PRIOR: Patient is a 59 years old female with history of chronic abdominal and pelvic pain, anxiety and depression, chronic back pain and previous back surgery in 2018, interstitial cystitis, ulcerative colitis, colostomy (11/2023), presents today for initial evaluation for pelvic and low back pain. Denies any recent trauma, injury or falls. She has extensive history of pelvic and bladder pain and is undergoing cystoscopy and hydrodistention every 3 months for over 10 years. Patient also tried and failed multiple medication therapy, including opioids (morphine, tramadol, oxycodone), baclofen, soma, vaginal Valium, gabap entin, Belladonna supp, and Interstim sacral stimulator. She reports sacral stimulator is in place but inactive for about 12-13 years. She is not sure if she can locate the device remote and has not been in contact with Interstim physician relations representative for device check or reprograming. Back pain is axial and also radiates into both lower extremities posteriorly with numbness, tingling and intermittent weakness. She was seeing Neurologist for this and is scheduled for EMG study on 06/20/[address] Lopez. She reports chronic pelvic pain, left side worse than the right and has concerns for torn pelvic muscle. Patient is currently undergoing Pelvic floor PT at home via [facility] and finds this slightly beneficial. She reports oxycodone 5 mg has been beneficial and when taking it TID prn, it will manages her pain. Pain affects her daily activities and functioning, sleep, mood, social interactions and quality of life. Denies any fever or chills, bladder or bowel incontinence or saddle anesthesia. Location: Pelvic area left>right, low back pain radiates into lower extremities Duration: Chronic pain due to IC, overactive bladder spasms, back pain Characteristics of symptom or complaint: Aching, stabbing, aching, shooting, jumping, sharp, radiating Aggravating or associated factors: ADLs, movements, sitting, standing, walking, ROM, sleep Relieving factors: Tramadol, morphine, Valium vaginal supp, Belladona supp, oxycodone Treatment: Pelvic PT, hydrodistention [id number], Interstim-not used for >10 years [facility] Medical History (Updated 07/14/24 @ 12:20 by NGHIA Colvin) Sacral nerve stimulator present Colostomy in place On beta morgan at home Anxiety SVT (supraventricular tachycardia) Depression Back pain History of gastrostomy tube placement Hx of ulcerative colitis Hx of cystitis History of anxiety Asthma Elevated cholesterol Surgical History History of tubal ligation History of endometrial ablation History of bladder surgery Social History Household Members: Significant Other Housing: Apartment Are you a primary emergency care attendant to a significant other at home: No Do you presently have visiting nurse or other home services: No 75 years or older and lives alone: No Alcohol intake: former Patient Tobacco Use Status: Current everyday Tobacco user Tobacco use type: Cigarette Cigarettes Per Day: 4 Years Smoked: 22 Current occupational status: disabled Review of Systems Const All systems reviewed & are unremarkable except as noted in HPI and below Physical Exam General: Appears afebrile. Alert and oriented. Mood and affect appropriate. Follows and participates in conversation appropriately. Respiratory effort is unlabored. No cough. Able to transition from sit to stand unassisted. Uses walker with ambulation. Ambulates with bilaterally normal heel strike and toe off. Back/Spine/Pelvis Cervical Spine: cervical muscular tenderness, pain with cervical ROM and No Cervical spine tenderness Thoracic/Lumbar Spine: thoracic and lumbar spine normal to inspection, Thoracic/lumbar spine scar(s), Lasegue's sign negative, straight leg raise negative bilaterally, pain with thoraco-lumbar ROM, paraspinal muscle tenderness, thoraco-lumbar ROM limited, No thoracic spinal tenderness and lumbar spinal tenderness (L3-S1) Pelvis: buttock tenderness bilaterally Sacroiliac joints: bilaterally tender to palpation Results Reviewed Results Reviewed: XR LUMBOSACRAL SPINE 04/20/24 CLINICAL INFORMATION: Low back pain. COMPARISON: None available. TECHNIQUE: Three views of the lumbosacral spine. FINDINGS: Osteopenia versus osteoporosis. Superior endplate compression deformity at T12 representing 40% volume loss. No gross retropulsion. Stimulator device electrode leads overlaps the right S3. Sclerosis in the sacroiliac joints bilaterally. Spina bifida occulta S1. Multilevel thoracolumbar spondylosis. Vascular calcifications. IMPRESSION: Subacute to old compression deformity at T12. Multilevel lumbar spondylosis. If patient's symptoms persist recommend CT. CT abdomen pelvis w IV con 12/19/23 IMPRESSION: 1. No evidence of small bowel obstruction. Small amount of fluid surrounding small bowel loops in the left lower quadrant. 2. Status post cholecystectomy with mild prominence of CBD and intrahepatic ducts. 3. Right renal cyst. 4. Postsurgical changes in the mid abdomen with parastomal hernia. 5. Compression deformity of T12 vertebral body. Assessment & Plan Assessment & Plan (1) Pelvic floor dysfunction in female: Code(s): M62.89 - Other specified disorders of muscle Category: Medical (2) Lumbar radiculopathy: Code(s): M54.16 - Radiculopathy, lumbar region Category: Medical (3) Lumbosacral spondylosis: Code(s): M47.817 - Spondylosis without myelopathy or radiculopathy, lumbosacral region Category: Medical (4) Interstitial cystitis: Code(s): N30.10 - Interstitial cystitis (chronic) without hematuria Category: Medical (5) Bladder pain: Code(s): R39.89 - Other symptoms and signs involving the genitourinary system Category: Medical (6) Sacral nerve stimulator present: Code(s): Z96.82 - Presence of neurostimulator Category: Medical Plan Previously discussed and reviewed today interventional treatments for chronic pelvic pain and low back pain with radiculopathy. For chronic pelvic pain, we discussed diagnostic nerve blocks such as fluoroscopy guided transgluteal, ganglion Impar, hypogastric plexus and L2 lumbar sympathetic blocks. For chronic low back pain with radiculopathy and recent flare up in back pain, patient has pending lumbar spine MRI. Unfortunately, MRI is not compatible with patient's inactive Interstime bladder stimulator in place. She will follow up with Urology to facilitate removal of bladder stimulator which she has not been using for 12- 13 years. We also reviewed neuromodulation for both chronic back and pelvic pain with SCS and ITDD trial vs implant. Patient is interested in a longer term pain management treatments but is hesitant to injections due to history of multiple cortisone injections, including in her back with minimal benefit. Patient reports oxycodone allows her to be less symptomatic and more functional. On evaluation, it was determined that there was a continued need to continue palliative chronic opioid prescribing. Risks and benefits were discussed with the patient and family. MassPAT was reviewed and is consistent with her history. Patient agreed to have the UDS performed immediately after this appointment. She is aware that this office can not prescribe until the UDS is reviewed and contracts are signed. All questions were answered and she is agreeable to the plan. Follow up in 2 weeks for UDS review and sooner as needed. Coding Level of Care Code Est Pt Level 4 (73081) Complex EM visit Add On G2211 Diagnoses Pelvic floor dysfunction in female M62.89 Lumbar radiculopathy M54.16 Lumbosacral spondylosis M47.817 Interstitial cystitis N30.10 Bladder pain R39.89 Sacral nerve stimulator present Z96.82
--- OUTSIDE RECORDS SUMMARY | 2024-07-14 12:04 | XMS_ITS | Encounter Summary ---
Author Organization [facility] Address [phone] [place] [id number] Care Team Providers Care Manager Flight Operations Name Role Phone Pcp, Unknown Primary Care Provider Unavailabl e Reason for Visit * Auth/Cert (Routine) Specialty Diagnoses / Procedures Referred By Contac t Referred To Contact Referral ID Status Reason Start Date Expiration Date Visits Re quested Visits Authorized [id number] 1 1 Encounter Details Date Type Department Care Team (Late st Contact Info) Description 07/03/2024 2:00 AM EST Home Care Visit [facility] [address] [place] [phone] Darlene Jolly, PAMELA [address] [place] [address] [email or web address] SN HOME VISIT Social History Tobacco Use Types Packs/Day Years Used Date Smoking Tobacco: Never Assessed Home Health Assessment: Transportation Answer Date Recorded Lack of Transportation (Medical) No 11/27/2023 Lack of Transportation (Non-Medical) No 11/27/2023 Patient Unable or Declines to Respond No 11/27/2023 Digital Access Answer Date Recorded No 01/06/2023 No 01/06/2023 Reliable internet access at home? Not on file 01/06/2023 Device with a working camera? Not on file Sex and Gender Information Value Date Recorded Sex Assigned at Not on file Gender Identity Not on file Sexual Orientation Not on file documented as of this encounter Last Filed Vital Signs Vital Sign Reading Time Taken Comments Blood Pressure 118/60 07/03/2024 9:00 PM EST Pulse 88 07/03/2024 9:00 PM EST Temperature 36.7 ??C (98 ??F) 07/03/2024 9:00 PM EST Respiratory Rate 18 07/03/2024 9:00 PM EST Oxygen Saturation 97% 07/03/2024 9:00 PM EST Inhaled Oxygen Concentration - - Weight - - Height - - Body Mass Index - - documented in this encounter Plan of Treatment Upcoming Encounters Date Type Department Care Team (Late st Contact Info) Description 07/15/2024 1:30 AM EST Home Care Visit [facility] [address] [place] [phone] Unscheduled, [facility] [address] [place] [address] 07/18/2024 Home Care Visit [facility] [address], [place] [phone] Tala Alvarez RN [address] [place] [address] [employer] 07/21/2024 Appointment [facility] [address], [place] [phone] Tala Alvarez RN [address] [place] [address] .[employer] documented as of this encounter Visit Diagnoses Not on filedocumented in this encounter Home Health Visit - Care Plan Visit Details Visit Type -SN HOME VISIT Discipline -Senior Care Problems Problem Description Start Date Status Goals Interve ntions HH - Medication Management Disciplines: All Active Home Health Disciplines 11/27/2023 Active 1 goal linked to scheduled/document ed intervention 2 goal interventions scheduled/document ed in this visit HH - Focus of Care and Teaching Disciplines: All Active Home Health Disciplines w/RD 11/27/2023 Active 1 goal linked to scheduled/document ed intervention 1 goal intervention scheduled/document ed in this visit HH - Emergency Planning - Knowledge of Disciplines: All Active Home Health Disciplines 11/27/2023 Active 1 goal linked to scheduled/document ed intervention 2 goal interventions scheduled/document ed in this visit HH - Infection - Actual or Risk of Disciplines: All Active Home Health Disciplines 11/27/2023 Active 1 goal linked to scheduled/document ed intervention 1 goal intervention scheduled/document ed in this visit HH - Standard of Care Disciplines: All Active Home Health Disciplines 11/27/2023 Active 1 goal linked to scheduled/document ed intervention 3 goal interventions scheduled/document ed in this visit HH - Pain Disciplines: All Active Home Health Disciplines 11/27/2023 Active 1 goal linked to scheduled/document ed intervention 1 goal intervention scheduled/document ed in this visit HH - Ostomy Management Disciplines: Senior Care 11/27/2023 Active 1 goal linked to scheduled/document ed intervention 2 goal interventions scheduled/document ed in this visit HH - Depression - Actual or Risk of Impairment Disciplines: All Active Home Health Disciplines 11/27/2023 Active 1 goal linked to scheduled/document ed intervention 1 goal intervention scheduled/document ed in this visit Goals Goal Associated Problem Outcome Goal Met? Visit Notes HH - Safe medication management, avoid unnecessary harm related to medication errors and/or interactions HH - Medication Management No HH - Communication and collaboration to achieve patient goals HH - Focus of Care and Teaching No HH - Knowledge of options for managing care in the event of an emergency related situation. HH - Emergency Planning - Knowledge of No HH - Patient will have no new infection; any new infection that occurs will be identified and treated promptly; existing infection will resolve without complication Description: Patient and caregiver(s) will demonstrate understanding of infection prevention, monitoring, and treatment as appropriate HH - Infection - Actual or Risk of No HH - Achieve care management for a safe to home/community discharge from homecare HH - Standard of Care No HH - Frequency of pain interfering with patient's activity or movement will improve with activity or movement by discharge. Description: Pain will be managed over the course of care. Patient's acceptable level of pain is 0 - no pain. HH - Pain No HH - Demonstrate/verbalize management of ostomy care and knowledge of complications HH - Ostomy Management No HH - Demonstrate/verbalize improvement in depressive symptoms HH - Depression - Actual or Risk of Impairment No Interventions Intervention Associated Problem/Goal Status Variance Visit Notes HH - I/E medication management: administration, purpose, dosages, preparation, setup, scheduling, side effects, food/drug interactions, and potential complications as indicated Description: Update patient's copy of medication list as needed. Problem:HH - Medication Management Goal:HH - Safe medication management, avoid unnecessary harm related to medication errors and/or interactions Scheduled HH - Complete medication review every visit and medication reconciliation as indicated. Pharmacy information: Description: [facility] Problem:HH - Medication Management Goal:HH - Safe medication management, avoid unnecessary harm related to medication errors and/or interactions Scheduled HH - Focus of care, teaching completed and plan for next visit Problem:HH - Focus of Care and Teaching Goal:HH - Communication and collaboration to achieve patient goals Completed Primary Clinical Focus this Visit & Instruction Provided: SN prn visit due to leaking ostomy. pt's cg reports he cannot do himself due to vision and pt cannot due bc of hand tremors. peristomal area red and irritated so SN used stoma powder and crust up method. SN provided ostomy care and pt tolerated well. Instruction Provided to: patient Response to Instruction/Teachin g: Is partially able to teach back topics as evidenced by verbal recall. HH - I/E management of care in an urgent or emergency (ER) situation: When to call your Home Care Team/911, ER plans, supplies, evacuation, when to contact local ER officials and how to stay informed Problem:HH - Emergency Planning - Knowledge of Goal:HH - Knowledge of options for managing care in the event of an emergency related situation. Completed - Emergency planning assessment: the emergency plan, supplies needed, emergency contact numbers and an evacuation plan were reviewed Description: Patient and Caregiver is/are knowledgeable of emergency plans. Problem: - Emergency Planning - Knowledge of Goal:HH - Knowledge of options for managing care in the event of an emergency related situation. Completed - Assess infection risk and s/s Problem: - Infection - Actual or Risk of Goal:HH - Patient will have no new infection; any new infection that occurs will be identified and treated promptly; existing infection will resolve without complication Completed HH - I/E discharge plan Problem:HH - Standard of Care Goal:HH - Achieve care management for a safe to home/community discharge from homecare Completed HH - Assess vital signs, pulse oximetry, pain, and as indicated, orthostatic vital signs Description: use agency-specific parameters Problem: - Standard of Care Goal:HH - Achieve care management for a safe to home/community discharge from homecare Scheduled HH - Assess skin integrity Problem: - Standard of Care Goal:HH - Achieve care management for a safe to home/community discharge from homecare Scheduled HH - Assess pain Problem: - Pain Goal:HH - Frequency of pain interfering with patient's activity or movement will improve with activity or movement by discharge. Completed - Ostomy assessment: Stoma (measurement, appearance, flat/retracted, mucocutaneous separation, anselmo stoma irritation or breakdown) and signs of complications Description: Assess nutritional status, risk of body image issues, emotional needs, and coping skills. Problem:HH - Ostomy Management Goal:HH - Demonstrate/verbalize management of ostomy care and knowledge of complications Completed - I/E Ostomy management: Ostomy and Stoma care, signs of complications, nutrition/hydration needs, and coping strategies Problem:HH - Ostomy Management Goal:HH - Demonstrate/verbalize management of ostomy care and knowledge of complications Completed HH - Assess s/s of depression Problem: - Depression - Actual or Risk of Impairment Goal:HH - Demonstrate/verbalize improvement in depressive symptoms Completed documented in this encounter Care Teams Manager Flight Operations Relationship Specialty Start Date End Date Pcp, Unknown PCP - General 02/23/23 documented as of this encounter Additional Source Comments The information contained in this document represents components of the legal health record. It is not the complete legal health record.[facility]
--- OUTSIDE RECORDS SUMMARY | 2024-07-14 12:04 | XMS_ITS | Continuity of Care Document ---
Author Organization [facility] Address [address] [place] [address]- Care Team Providers Care Epic Cadence Analyst Name Role Phone Brett Su MD Primary Care Physician [phone] Encounter [facility] Date(s): 07/10/24 - 07/10/[address] [address]- Discharge Disposition: A-D/C Home Attending Physician: Stevenson Crane MD Admitting Physician: Stevenson Crane MD Referring Physician: Not on Staff, Referring MD Encounter Type: Disch ES Allergies, Adverse Reactions, Alerts Substance Criticality Severity Reaction Reaction Severity Status ibuprofen 1 Diarrhea Nausea Active simvastatin Unknown Aching muscles Active atorvastatin unknown Active acetaminophen 2, 3 Unknown Nausea Resolved aspirin stomach problems Active Augmentin MOUTH SORES Active Percocet 7.5/325 Unable to assess criticality [...] Given pneumococcal 20-valent conjugate vaccine 01/18/23 Recorded [id number] 12y+ bivalent booster vax 01/27/23 Recorded tetanus-diphtheria toxoids (Td) 07/16/21 Given SARS-CoV-2 mRNA (poqrxor-spqa-wlouz) vax 07/16/21 Given Influenza Virus Vaccine (oldterm) [...] Given 1Result Comment: [03/08/2017] [facility] [place] 2Location History: [facility] 3Admin Note: center pharmacy venancio castillo 4Admin Note: per pt [facility]d [facility] 5Admin Note: given in clinic 6Admin Note: WING 7Admin Note: clinic ronnie Medications Albuterol (Eqv-ProAir HFA) 90 mcg/inh inhalation aerosol 2 puffs, Inhalation, Every 6 hours, PRN NEEDED FOR WHEEZING, # 8.5 each, 2 Refills, Maintenance,04/03/24 8:24:00 AM EDT, [facility] STORE [id number], 25, INHALE 2 PUFFS BY MOUTH EVERY [...] 5 Refills, Maintenance, 03/17/24 3:59:00 PMEDT, Tablet, [facility]/pharmacy #[id number], Partial fill upon patient request [...] Replace Required Details, Route to Pharmacy Electronically, [facility]/pharmacy #[id number], 163, cm, 10/04/24 15:48:00 EDT, Height, 49, kg, 02/25/24 16:06:00 EDT, Dry Weight Start Date: 03/17/24 Status: Ordered Quantity: 15.0 Unit: tablet Repeat number: 12 Omeprazole = 20 mg, By Mouth, Daily, 0 Refills, Maintenance, 02/01/24 7:40:00 AM EDT, Partial fill upon patientrequest if the prescription is for a schedule II opioid drug. Start Date: 02/01/24 Status: Ordered Repeat number: 1 propranolol 10 mg oral tablet 10 mg, 1, tablet, By Mouth, 3 times a day, # 90 tablet, Refills 0, Maintenance, 07/10/24 2:48:00 PM EST, Partial fill upon patient request if the prescription is for a schedule II opioid drug. Start Date: 07/10/24 Status: Ordered Quantity: 90.0 Unit: tablet Repeat number: 1 sertraline 50 mg oral tablet 1 tablet = 50 mg, By Mouth, Daily, # 30 tablet, 11 Refills, Maintenance, 03/17/24 4:10:00 PM EDT, Tablet, [facility]/pharmacy #[id number], Partial fill upon patient request if the prescription is for a schedule IIopioid drug., 163, cm, 03/17/24 15:48:00 EDT, Height, 49, kg, 02/25/24 16:06:00 EDT, Dry Weight Start Date: 03/17/24 Stop Date: 03/12/25 Status: Ordered Quantity: 30.0 Unit: tablet Repeat number: 12 traZODone 100 mg oral tablet 1, tablet, By Mouth, Daily at bedtime, # 30 tablet, Refills 11, Tot. Refills 11, Maintenance, 03/17/24 4:10:00 PM EDT, Route to Pharmacy Electronically, [facility]/pharmacy #[id number], 163, cm, 03/17/24 15:48:00 EDT, [...] 1pft c/w mild obstruction, no bronchodilater response Results Radiology Reports * Exam Date Time Procedure Performing Provider Status 07/10/24 3:45 PM Chest 2 Views Frontal and Lat Asad Rodas; Frederick (Verified) Notes: (Chest 2 Views Frontal and Lat) Reason For Exam: chest pain;Other: RESULT: Chest 2 Views Frontal and Lat Chest 2 Views Frontal and Lat Hx of Present Illness: Chest pain. COMPARISON: 02/07/2024 FINDINGS: LINES AND TUBES: None. LUNGS AND PLEURA: Clear lungs. Normal pulmonary vascularity. No pleural effusion. No pneumothorax. HEART, MEDIASTINUM AND MARCI: Heart is normal in size. Normal mediastinal and hilar contour. BONES AND SOFT TISSUES: No acute abnormality. Chronic compression deformity at T8 and T12. IMPRESSION: No acute abnormality. WSN: [id number] Ordering Physician: Stevenson Crane Dictated By: Choco Booker MD Dictated Date/Time: 07/10/24 4:09 pm Reviewed By: Choco Booker MD Signed By: Choco Booker MD Signed Date/Time: 07/10/24 4:09 pm Transcribed By: MANOJ Transcribed Date/Time: 07/10/24 3:52 pm Vital Signs Most recent to oldest [Reference Range]: 1 2 3 Height 165 cm (07/10/24 4:10 PM) 165 cm (07/10/24 4:01 PM) 165 cm (07/10/24 2:39 PM) Weight 54 kg (07/10/24 4:10 PM) 54 kg (07/10/24 4:01 PM) 54 kg (07/10/24 2:39 PM) Oxygen Saturation [94-100 %] 100 % (07/10/24 4:10 PM) 100 % (07/10/24 4:01 PM) 100 % (07/10/24 2:00 PM) Pulse Rate [55-90 bpm] 71 bpm (07/10/24 4:10 PM) 86 bpm (07/10/24 4:01 PM) 72 bpm (07/10/24 2:00 PM) Body Mass Index [18.5-24.99 kg/m2] 19.83 kg/m2 (07/10/24 4:10 PM) 19.83 kg/m2 (07/10/24 4:01 PM) Blood Pressure [90-138/55-84 mm Hg] 125/69mm Hg (07/10/24 4:10 PM) 118/70mm Hg (07/10/24 4:01 PM) 111/61mm Hg (07/10/24 2:00 PM) Respiratory Rate [16-30 br/min] 18 br/min (07/10/24 4:10 PM) 16 br/min (07/10/24 4:01 PM) 16 br/min (07/10/24 2:00 PM) Temperature [96.8-100.4 DegF] 98.3 DegF (07/10/24 2:00 PM) Mode of Delivery (Oxygen) Room air (07/10/24 4:10 PM) Room air (07/10/24 4:01 PM) Room air (07/10/24 2:00 PM) Blood pressure sites Arm, right (07/10/24 4:10 PM) Arm, right (07/10/24 4:01 PM) Arm, right (07/10/24 2:00 PM) Temperature Route Oral (07/10/24 2:00 PM) Dry Weight 54 kg (07/10/24 4:10 PM) 54 kg (07/10/24 4:01 PM) 54 kg (07/10/24 2:39 PM) Weight Obtained Via Standing scale (07/10/24 2:39 PM) Dry Weight Obtained Via Standing scale (07/10/24 2:39 PM) Social History Social History Type Response Tobacco Use: 4 or less cigar ettes(less than 1/4 pack)/day in last 30 days. Other: Half a pack of cigarettes daily since age 25.. Sex Sex Representation Female (finding) Note * Stevenson Crane MD: PERFORM, SIGN, VERIFY Event Display: Patient Education Handout Authored Date: * Stevenson Crane MD: PERFORM Event Display: Patient Education Leaflets Authored Date: Uncertain Causes of Chest Pain ?? [id number] Uncertain Causes of Chest Pain Chest pain can happen for a number of reasons. Sometimes the cause can't be found. If you've been checked by your health care provider and your??condition does not seem serious, and if your pain doesnot appear to be coming from your heart, your provider may recommend closely watching for any symptoms. Sometimes the signs of a serious problem take more time to appear. Many problems not related toyour heart can cause chest pain, such as: ??? Musculoskeletal problems. These include costochondritis (an inflammation of the tissues around the ribs that can occur from trauma or overuse injuries) and a strain of the chest wall muscles. ???Respiratory problems. These include pneumonia, collapsed lung (pneumothorax), and inflammation of the lining of the chest and lungs (pleurisy). ??? Gastrointestinal problems. These include esophagealreflux, heartburn, ulcers, and gallbladder disease. ??? Anxiety and panic disorders. ??? Nerve compression and inflammation. ??? Rare problems, such as aortic aneurysm or aortic dissection (a swelling of the large artery coming out of the heart or a tear in the wall of the artery), and pulmonary embolism (a blood clot in the lungs). Home care After your visit, make sure to: ??? Rest today, and stay away from strenuous activity. ??? Take anyprescribed medicine as directed. ??? Be aware of any chest pain that comes back, and notice any changes. ?? Follow-up care Follow up with your health care provider if you don't start to feel better within 24 hours, or as advised. ?? Call 911 Call 911 if you have: ??? A change in the type of pain. It may feel different, become more severe, last longer, or begin to spread into your shoulder, arm, neck, jaw, or back. ??? Shortness of breathor increased pain with breathing. ??? Weakness, dizziness, or fainting. ??? A rapid heartbeat. ??? A crushing feeling in your chest. ??? Coughing up more than a small amount of blood. ?? When to get medical advice Call your health care provider or get medical care right away if you have: ??? A cough with dark colored sputum (phlegm) or small amount of blood. ??? A fever of 100.4??F??(38??C) or higher, or as directed by your provider. ??? Swelling, pain, or redness in one leg. ?? Last Reviewed Date: 2024 ?? 4099-8926 [employer]. All rights reserved. This information is not intended as a substitute for professional medical care. Always follow your healthcare professional's instructions. ?? Patient Care team information Care Team Personnel Name: Yoselyn Mccormcik RN Position: [facility] RN Member Role: Primary Care Nurse Name: Rand Baez RN Position: S RN Member Role: Primary Care Nurse Name: Bethany Soares RN Position: [facility] RN Member Role: Primary Care Nurse Name: Pam Harmon RN Position: S RN Member Role: Primary Care Nurse Name: Graciela Harmon RN Position: S RN Member Role: Primary Care Nurse Name: Stella Ramos RN Position: [facility] RN Member Role: Primary Care Nurse Name: Brett Su MD Position: [facility] Physician - Primary Care Member Role: PCP Address: [address] [place] [address] Telecom: Name: Vangie Chun RN Position: [facility] RN Member Role: Primary Care Nurse Name: Leidy Gray RN Position: S RN Member Role: Primary Care Nurse Name: Jimbo Boswell RN Position: [facility] RN Member Role: Primary Care Nurse Name: James Alvarez RN Position: S RN Member Role: Primary Care Nurse Name: Milena Rios RN Position: S RN Member Role: Primary Care Nurse Name: Oralia Ashley RN Position: S RN Member Role: Primary Care Nurse Name: Phyllis Holman RN Position: S RN Member Role: Primary Care Nurse Name: Raya Jewell RN Position: S RN Member Role: Primary Care Nurse Name: Harini Aponte RN Position: [facility] RN Member Role: Primary Care Nurse Name: Dorita Brokc RN Position: [facility] RN Member Role: Primary Care Nurse Name: Nya Liu RN Position: [facility] RN Member Role: Primary Care Nurse Name: Geri Galvan RN Position: [facility] RN Member Role: Primary Care Nurse Name: Eri Mars RN Position: [facility] RN Member Role: Primary Care Nurse Name: Lula Velasco RN Position: [facility] RN Member Role: Primary Care Nurse Name: Guerline Benavides RN Position: [facility] RN Member Role: Primary Care Nurse Name: Fatimah Galaviz RN Position: [facility] ED RN W/OE and Tasks Member Role: Primary Care Nurse Care Team Related Persons Name: KIAN TAMAYO Name: MARTA LEWIS Name: GUERRERO AGUILAR Name: ITALO CORNEJO Insurance Providers Guarantor name: NICOLAS BELKIS Health Plan Information #: 2 Payer: [employer] Member Number: [id number] Policy Number: NA Group Number: NA Health Plan Information #: 1 Payer: [facility] [employer] [employer] Member Number: [id number] Policy Number: NA Group Number: [id number]
--- OUTSIDE RECORDS SUMMARY | 2024-07-14 12:04 | XMS_ITS | Encounter Summary ---
Author Organization [facility] Address [phone] [place] [address] Care Team Providers Care Senior Caregiver Name Role Phone Pcp, Unknown Primary Care Provider Unavailabl e Encounter Details Date Type Department Care Team (Late st Contact Info) Description 07/12/2024 Episode Documentatio n Update [facility] [address], [place] [phone] Social History Tobacco Use Types Packs/Day Years [...] on file documented as of this encounter Plan of Treatment Upcoming Encounters Date Type Department Care Team (Late st Contact Info) Description 07/15/2024 1:30 AM EST Home Care Visit [facility] [address], [place] [phone] Unscheduled, [facility] [address] [place] [address] 07/18/2024 Home Care Visit [facility] [address], [place] [phone] Tala Alvarez RN [address] [place] [address] 07/21/2024 Appointment [facility] [address] [place] [phone] Tala Alvarez, RN [address] [place] [phone] [email or web address] documented as of this encounter Visit Diagnoses Not on filedocumented in this encounter Care Teams Senior Caregiver Relationship Specialty Start Date End Date Pcp, Unknown PCP - General 02/23/23 documented as of this encounter Additional Source Comments The information contained in this document represents components of the legal health record. It is not the complete legal health record.[facility]
--- OUTSIDE RECORDS SUMMARY | 2024-07-14 12:04 | XMS_ITS | Data Portability ---
Author Organization [employer] Address [address] [place] [address] Care Team Providers Care Decal Applier Name Role Phone ELVI LAWANDA ADULT MEDICINE Referring Provider HIM [facility] OTHER Assessment Encounter Date Assessment Date Assessment LastModified by Organization Details LastModified Time 07/30/2023 07/30/2023 I provided real -time medical direction via phone for this encounter, and was available for additional phone based assistance as needed. I have reviewed and agree with the Assessment and Plan as documented by the Spanish Literature Professor. Patient given the opportunity to ask questions. As per above, service called for bladder pain and found this 58 riki with chronic interstitial cystitis c/b suprapubic pain. C/o 4d suprapubic sharp pain that is throbbing, knife-like and c/w prior episodes. She is soon to have hydroextension procedure. Last ketorlac > 1 wk prior. Regular PO food and fluid intake. Per medical receptionist biller on the scene, VSS and she is [...] assessment and plan as documented by the medical receptionist biller and would add/emphasize: Patient seen for acute [...] 2023 024 [email or web address], [address] [place], [address], 4 22:56:59 Zofran 4 mg tablet 2023 024 SANDRA [facility], [address] , [place], [address], 4 21:22:51 ketorolac 30 mg/mL injection solution 2023 024 [email or web address] [facility], [address] , [place], [address], 4 21:23:56 ondansetr on HCl (PF) 4 mg/2 mL injection solution 2023 024 pallfather [facility], [address] [place], [address], 4 18:50:03 ketorolac 30 mg/mL injection solution [address] [facility] [address] [place], [address], 4 18:50:03 ketorolac 30 mg/mL injection solution 2023 Adilene [email or web address] [facility], [address] [facility], [place], [address], 4 19:46:11 Patient TargetsNo targets recorded. Patient [...] n nausea Not available Not available 08/12/2022 73178 3 RxNorm Lula Camacho MD [address] [place] [address],[address], [place], [address], [employer] 3 16:51:49 1995 Augmentin medicatio n Not available Not available Not available 08/12/2022 48313 2 RxNorm got mouth sores Lula Camacho MD [address] [place] [address],[address], [place], [address], [employer] 3 16:52:05 1996 acetamino phen medicatio n Not available Not available Not available 08/12/2022 161 RxNorm Not Available [employer] - production 4 03:45:01 1997 simvastat in medicatio n Not available Not available Not available 08/12/2022 19064 RxNorm Lula Camacho MD [address] [place] [address],[address], [place], [address], [employer] 3 16:52:28 Medications Name Sig Start Date [...] Details Last Updated DateTime 4 98.4 [degF] 07968.5 12 g 98 % 98 % 18 /min 90 /min 104 mm[Hg] 64 mm[Hg] Not Available [employer] - production 4 21:02:10 Date Recorded Respiratory rate Body weight Oxygen saturation Oxygen saturation in Arterial blood by Pulse oximetry Body temperature Body height Heart rate Systolic blood pressure Diastolic blood pressure Systolic blood pressure Diastolic blood pressure Provider Name and Address Organization Details Last Updated DateTime 4 14 /min 40401.9 6 g 76 % 76 % 98.5 [degF] 165.1 cm 74 /min 98 mm[Hg] 64 mm[Hg] 95 mm[Hg] 56 mm[Hg] Not Available [employer] - production 4 20:24:53 Date Recorded Oxygen saturation Oxygen saturation in Arterial blood by Pulse oximetry Provider Name and Address Organization Details Last Updated DateTime 10/11/2023 97 % 97 % Not Available [employer] - production 10/11/2023 19:12:02 Date Recorded Respiratory rate Heart rate Body temperature Systolic blood pressure Diastolic blood pressure Provider Name and Address Organization Details Last Updated DateTime 4 16 /min 80 /min 98.1 [degF] 110 mm[Hg] 64 mm[Hg] Not Available [employer] - production 4 19:12:03 Date Recorded Body temperature Respiratory rate Oxygen saturation Oxygen saturation in Arterial blood by Pulse oximetry Heart rate Systolic blood pressure Diastolic blood pressure Provider Name and Address Organization Details Last Updated DateTime 4 98.4 [degF] 16 /min 98 % 98 % 86 /min 100 mm[Hg] 68 mm[Hg] Not Available [employer] - [employer] 4 16:25:08 Date Recorded Respiratory rate Heart rate Oxygen saturation Oxygen saturation in Arterial blood by Pulse oximetry Body temperature Systolic blood pressure Diastolic blood pressure Provider Name and Address Organization Details Last Updated DateTime 4 16 /min 88 /min 96 % 96 % 96 [degF] 97 mm[Hg] 63 mm[Hg] Not Available [employer] - production 4 17:24:48 Social History None recorded. Functional [...] Note [id number] Tha Pierson MD Main - [address] [phone] 03/24/2022 17:56:02 04/01/2022 18:48:22 Abdominal pain 82738328 R10.9 [id number] Amaury Kent MD [facility] [address] [place] [address] 03/26/2022 17:40:48 03/30/2022 12:00:01 Abdominal pain [id number] R10.9 No red flag signs or kidney problems. Will give Toradol 15mg IM x1 [id number] Jordan Chapman MD [facility] - [address] [address] 04/02/2022 17:07:08 04/03/2022 15:18:36 Urinary bladder pain 26575019 R39.82 Patient with exacerbati on of chronic abdominal pain which is attributed to interstiti al cystitis. She is planned for a surgical procedure for this soon. She got relief from toradol at a recent instED visit for same symptoms. No history of GI bleeding or chronic kidney disease.Rx toradol IM 15mg x1 [id number] Nelly Pérez MD [facility] - [address] [address] 04/08/2022 14:02:49 04/14/2022 16:18:59 Chronic interstitial cystitis [id number] N30.10 57 year old female, being evaluated for chronic bladder pain. Per data gathered by medical receptionist biller, patient with chronic bladder pain without dysuria, scheduled for a surgical procedure next week. Her symptoms are at baseline, and she is tolerating PO. Her exam is notable for normal vital signs. Cannot take PO NSAIDS, however recalls IM toradol helpful in the past - dose given again today. FU PCP as needed. 5214 Nelly Pérez MD [facility] - [address] [address] 04/22/2022 17:19:46 04/23/2022 11:41:13 Pain in right foot [id number] 36358 M79.671 57 year old female being evaluated [...] 5464 Kylee Hill MD Main - [facility] [address] [place] [address] 05/03/2022 16:25:00 05/05/2022 09:08:24 Pain in left foot [id number] 97651 M79.672 57 yo F w/ known metatarsal [...] 8142 Lula Camacho MD Main - [facility] [address] [place] [address] 08/12/2022 15:46:28 08/14/2022 09:39:18 Candidiasis of skin 25455197 B37.2 likely cause of rash Increased frequency of urination 864352129 R35.0 PAT NOT clinically dehydrated -not hyperglyce opal -states has hx non infectious cystitis- has appt w/ urology 09/07- requesting ketorolac for pain- has no hx CKD/ has tolerated 30 mg IM before( previous [facility] visits)- get GI upset w/ [...] 8250 Derik Bingham MD Main - [facility] [address] [place] [phone] 08/17/2022 11:11:00 08/19/2022 09:27:13 Chronic interstitial cystitis 036835438 N30.10 Localized eruption of skin [id number] R21 8622 Kylee Hill MD Main - [facility] [address] [place] [address] 08/28/2022 22:03:08 08/31/2022 11:13:17 Chronic interstitial cystitis 598562871 N30.10 long standing diagnosis c/b chronic pain. Recieves toradol occasional ly with good effect. No fevers/chi lls/hematu sofi. Will administer 30mg toradol, but advised pt to discuss timing of additional NSAIDs with surgical team as she is planned for surgery in 10d. will also prescribe 4d zofran for intermitte nt chornic nausea associated to chronic cystitis. Qtc<500. Of note, [facility] / [facility] malfunctio n 9933 Angie Amador MD Main - [facility] [address] [place] [phone] 10/11/2022 16:10:03 10/12/2022 10:16:13 Abdominal pain 04067570 R10.9 Chronic low back pain 27 0913676 M54.50 Pain 63577604 R52 [id number] Derik Bingham MD Main - [facility] [address] [place] [phone] 10/16/2022 17:37:00 10/19/2022 09:55:32 Right upper quadrant pain 790768856 R10.11 [id number] Jareth David MD Main - [facility] [address] [place] [phone] 10/29/2022 17:40:14 10/30/2022 08:56:05 Generalized abdominal pain 856772209 R10.84 This 57-year-ol d female had a [...] PCP. The patient agreed with this plan. [id number] Amaury Kent MD Main - [facility] [address] [place], [place] [phone] 10/31/2022 15:42:54 11/03/2022 13:02:01 Generalized abdominal pain 308528440 R10.84 Generalize d abdominal pain similar to prior episodes. Mild nausea and sxs of dehydratio n, poor fluid intake. Had normal BMP on prior visit. Tolerated IVF, Zofran, Toradol in the past. No red flag signs. Will reorder. [id number] Leander Rosa MD Main - [facility] [address] [place] [address] 0 11/04/2022 14:24:04 11/06/2022 13:41:01 Abdominal pain 02575274 R10.9 [id number] Kylee Hill MD Main - [facility] [address] [place] [address] 0 11/15/2022 15:34:46 11/25/2022 10:16:27 Chronic interstitial cystitis 563754695 N30.10 case supervised and discussed with medical receptionist biller. Patient was given opportunit y to ask questions, warning signs/symp toms of pertinent medical emergency reviewed. long standing diagnosis c/b chronic pain. Recieves toradol occasional ly with good effect. No fevers/chi lls/hematu sofi. Will administer 30mg toradol [id number] Latosha Pressley MD Main - [facility] [address] [place] [phone] 11/23/2022 20:46:17 11/24/2022 10:07:44 Chronic interstitial cystitis 025063308 N30.10 [id number] Amaury Kent MD Main - [facility] [address] [place], [place] [phone] 11/28/2022 16:57:59 11/28/2022 23:15:41 Chronic interstitial cystitis 710423655 N30.10 Has upcoming cystocscop y, amenable to 30mg IM Toradol now Pain 63109481 R52 [id number] Jareth David MD Main - [facility] [address] [place], [place] [phone] 12/13/2022 16:50:19 12/14/2022 10:41:58 Essential tremor 452050885 G25.0 This 57-year-ol d female with a history of ulcerative colitis and a resting tremor called [facility] because she thought she might be dehydrated . At the visit her hydration status looked good and her oral intake was adequate. She was advised to follow-up with her PCP. The patient agreed with this plan. 22325 Lula Camacho MD Main - [facility] [address] [place] [phone] 02/22/2023 18:33:03 02/23/2023 08:59:17 Abdominal pain 81887278 R10.9 Agree flare of interstiti al cystitis/p atient has appointmen t to talk to her urologist in 48 hours/but not in person-adv ised since she has not had ketorolac in a while and her H & H are stable-we will give her a dose, however I advised she could develop a reaction to parenteral ketorolac similar to ibuprofen- she verbalized understand ing Hypokalemia 10624143 E87 .6 Unsure of etiology since the [...] and tomorrow - she verbalized she would [id number] Lula Camacho MD Main - [facility] [address] [place] [phone] 02/24/2023 11:00:53 02/24/2023 12:04:06 Hypokalemia 24207224 E87.6 Unsure of etiology since the patient denies nausea/ vomiting /diarrhea or excessive urine output/ now resolved with po K//lactate is slightly high but these new machines have been reading mildly high on everyone I have taken care of in the past week-doubt significan t given stable exam and vital signs and the fact that she is afebrile. 79346 Amaury Kent MD Main - [facility] [address] [place] [phone] 04/15/2023 15:37:09 04/16/2023 12:56:31 Abdominal pain 65049044 R10.9 Acute on chronic. Normal vital signs. No red flag signs or kidney problems. Will give Toradol 30mg IM x1. Discussed red flag signs for which to seek higher level of care. 33300 Sofiya Frye MD Main - [facility] [address] [place] [address] 04/27/2023 21:55:53 04/28/2023 10:39:48 Chronic pain 48394760 G89.29 [id number] Corrie Pryor MD Main - [facility] [address] [place] [phone] 05/01/2023 12:37:10 05/02/2023 15:48:01 Chronic interstitial cystitis 940895931 N30.10 Evaluation in the field was performed by my medical receptionist biller colleague, as noted above, I provided real-time [...] shortness of breath, cough, chest pain, fever. 23040 Nelly Pérez MD Main - [facility] [address] [place] [address] 05/10/2023 15:45:31 05/10/2023 22:56:22 Abdominal pain 76574920 R10.9 58 year old female with a [...] assessment and plan as documented by the medical receptionist biller. I provided real-time medical direction for this encounter and was immediatel y available to provide additional phone-base d assistance as needed. We discussed the diagnostic uncertaint y of home visits and associated risks. We discussed the need to seek care urgently/e mergently in the setting of any new or worsening symptoms. [id number] Jareth David MD Main - [address] [phone] 05/18/2023 14:57:58 05/19/2023 10:20:02 Irritable bowel syndrome 19354464 K58.9 This 58-year-ol d female with recurrent GI pain likely due to IBS called today because of pain since this AM. She doesn't tolerate oral pain medication s due to GERD, but she has responded to Toradol in the past. I ordered Toradol 30 mg IM. She will follow-up with her PCP. The patient agreed with this plan. 24315 Kellie Woods MD Main - [address] [phone] 05/21/2023 12:59:15 05/24/2023 16:53:56 Urinary symptoms 320640615 R39.9 Abdominal pain 27099902 R10.9 [id number] NO MATHIS MD Main - [facility] [address] [place] [address] 06/06/2023 11:39:22 06/08/2023 10:04:30 Abdominal pain 86019424 R10.9 Evaluation in the field was performed by my medical receptionist biller colleague, as noted above, I provided real-time [...] abdominal pain Plan:Ketor olac 15 mg IM [id number] to call her GI doctor on Wednesday [...] concerns Latosha Pressley MD Main - [facility] [address] [place] [address] 07/27/2023 17:32:53 07/27/2023 21:48:46 Chronic interstitial cystitis 424877155 N30.10 Sofiya Frye MD Main - [facility] [address] [place] [address] 07/30/2023 21:02:08 07/31/2023 12:36:08 Spasm of urinary bladder 817474248 N32.89 [id number] Duong Panchal MD Main - [facility] [address] [place] [address] 08/24/2023 20:24:52 08/25/2023 11:16:42 Ulcerative colitis 79189029 K51.90 Patient reports a history of ulcerative colitis followed by GI. She reports that she has abdominal pain consistent with her typical chronic abdominal pain. Denies any new complaints . Reports a recent colonoscop y. No hematochez ia or melena. Requesting ketorolac as that typically resolves her symptoms. Denies any other complaints or concerns. [id number] Nelly Pérez MD Main - [facility] [address] [place] [address] 10/11/2023 19:12:01 10/11/2023 22:15:10 Chronic interstitial cystitis 641398740 N30.10 57 year old female, being evaluated for acute on chronic bladder pain. Per data gathered by medical receptionist biller, patient with chronic bladder pain without dysuria, [...] assessment and plan as documented by the medical receptionist biller. I provided real-time medical direction for this encounter and was immediatel y available to provide additional phone-base d assistance as needed. We discussed the diagnostic uncertaint y of home visits and associated risks. We discussed the need to seek care urgently/e mergently in the setting of any new or worsening symptoms. [id number] Tha Pierson MD Main - [facility] [address] [place] [phone] 01/23/2024 16:25:05 01/24/2024 10:37:03 Abdominal pain 04670549 R10.9 [id number] Nelly Pérez MD [facility] - [facility] [address] [place] [phone] 04/18/2024 17:24:45 04/18/2024 22:03:45 Headache 73767720 R51.9 59 year old female being evaluated [...] assessment and plan as documented by the medical receptionist biller. I provided real-time medical direction for this [...] Babb Member ID Guarantor Name 07/30/2023 1 [facility] - DOS ON OR AFTER 2022 - DUAL ELIGIBLE - SHELTER OPTIONS AND ONE CARE (MEDICARE REPLACEMENT/ADV ANTAGE - HMO) Randi Desilets [id number] Randi Small Desilets 08/24/2023 1 [facility] - DOS ON OR AFTER 2022 - DUAL ELIGIBLE - SHELTER OPTIONS AND ONE CARE (MEDICARE REPLACEMENT/ADV ANTAGE - HMO) Randi Desilets [id number] Randi Small Desilets 10/11/2023 1 [facility] - DOS ON OR AFTER 2022 - DUAL ELIGIBLE - SHELTER OPTIONS AND ONE CARE (MEDICARE REPLACEMENT/ADV ANTAGE - HMO) Randi Desilets [id number] Randi Small Desilets 01/23/2024 1 [facility] - DOS ON OR AFTER 2022 - DUAL ELIGIBLE - SHELTER OPTIONS AND ONE CARE (MEDICARE REPLACEMENT/ADV ANTAGE - HMO) Randi Lowery [id number] Randi Lowery 04/18/2024 1 [facility] - DOS ON OR AFTER 2022 - DUAL ELIGIBLE - SHELTER OPTIONS AND ONE CARE (MEDICARE REPLACEMENT/ADV ANTAGE - HMO) Randi Lowery [id number] Randi Small Leanderlashay Notes Date Note Type Note Provider Name [...] ....................... ....................... ....................... ....................... ....................... ....................... ... Spanish Literature Professor Note From Gómez Kumar: Pt co abdominal pain. Has cystitis. Having surgery Wednesday[facility] with relief ..pt wanting toradol to hold her over for the weekend until surgery. Pt denies urinary symptoms, fever nausea vomiting diarrhea , cp sob, kidney problems. Baseline vitals assessed. [facility] contacted and 30mg toradol IM. Pt education on signs indicating the ER. Spanish Literature Professor Allergies: Acetaminophen, Ibuprofen ....................... ....................... ....................... ....................... ....................... ....................... ... Disposition: Fulfilled Sofiya Frye MD [address] [facility],[address], [place], [address], [email or web address] 07/30/2023 21:05:26 08/24/2023 text/html CRC Nurse Triage Notes (Dave Cerna): Patient Reports: Inability to tolerate foods, fluids or daily medications Denies: Vague abdominal pain greater than 24 hours Nausea with or without vomiting Chief Complaints: Weakness/Lethargy, Dehydration, Abdominal Pain PMH: COPD/Asthma Allergies: Acetaminophen, Ibuprofen Comments: Premium Cancellation Clerk verified the member's name//address and phone number. [...] ....................... ....................... ....................... ....................... ....................... ....................... ... Spanish Literature Professor Note From Spencer Reis: 58 yo F [...] but pt needs to follow up with orthopedic rn to not just mask the pain but cure the main issue. 30mg given left deltoid. explained risks of termite technician use of Toradol/NSAIDs. discussed red flags with pt and friend. ....................... ....................... ....................... ....................... ....................... ....................... ... Disposition: Fulfilled Duong Panchal MD [address] [place] [address],[address], [place], [address], [employer] 08/24/2023 22:57:14 10/11/2023 text/html CRC Nurse Triage Notes (Mayra Jaime): Reason For Request: Pt reporting introsystalitis, pain, nausea (for a couple days), states bladder surgery for next week>is requesting toradol and zofran Chief Complaints: Nausea/Vomiting, Pain PMH: COPD/Asthma Allergies: Acetaminophen, Ibuprofen Comments: Premium Cancellation Clerk verified the member's name//address and phone number. [...] ....................... ....................... ....................... ....................... ....................... ....................... ... Spanish Literature Professor Note From Corey Moralez: Pt reporting acute [...] ....................... ... Disposition: Ivan Pérez MD [address] [facility],[address], [place], [address], [employer] 10/11/2023 21:24:08 01/23/2024 text/html CRC Nurse Triage [...] callback, VM left for mbr around 1415 -H. SunniAfter multiple phone attempts, this RN got in contact with mbr around 1450. Premium Cancellation Clerk verified the member's name//address and phone number. Mbr reporting generalized abdominal discomfort as well as nausea on going for the last few hours. Mbr reports awaiting bladder surgery which is scheduled for next month. [facility] for her pain in the past. Education provided on the response time and the member was advised to monitor reported s/s and seek emergency treatment if needed -Abdullahi Moeller RN ....................... ....................... ....................... ....................... ....................... ....................... ... Spanish Literature Professor Note From Yennifer Celeste: Pt reports 2-3 days of nausea, vomiting with lower abd pain. A&ox3, vss, afebrile; ? cramping? in lower quadrants, mildly painful on palpation, denies cp, sob, back or flank pain, headache, dizziness, lightheadedness. [facility] consulted, 4mg zofran and 15mg toradol IM administered. Pt will follow up with pcp Wednesday. Red flags reviewed. Spanish Literature Professor Allergies: Acetaminophen, Ibuprofen ....................... ....................... ....................... ....................... ....................... ....................... ... Disposition: Fulfilled Tha Pierson MD [address] [facility],[address], [place], [address], [employer] 01/23/2024 18:50:39 04/18/2024 text/html CRC Nurse Triage [...] ....................... ....................... ....................... ....................... ....................... ....................... ... Spanish Literature Professor Note From Corey Moralez: This 59-year-old female [...] is soft, nontender, nondistended. No lower extremity edema.[facility] contacted and patient treated with ketorolac 30 [...] ....................... ....................... ....................... ....................... ....................... ....................... ... [facility] Consulted: Nelly Pérez ....................... ....................... ....................... ....................... ....................... ....................... ... Disposition: Fulfilled Nelly Pérez MD [address] [facility],[address], [place], [address], [email or web address] 04/18/2024 19:46:24 OBGyn Episode No OBEpisode recorded.
--- OUTSIDE RECORDS SUMMARY | 2024-07-14 12:04 | XMS_ITS | Encounter Summary ---
Author Organization [facility] Address [phone] [place] [address] Care Team Providers Care Physician Office Clin Asst Name Role Phone Pcp, Unknown Primary Care Provider Unavailabl e Reason for Visit * Auth/Cert (Routine) Specialty Diagnoses / Procedures Referred By Contac t Referred To Contact Referral ID Status Reason Start Date Expiration Date Visits Re quested Visits Authorized [id number] 1 1 Encounter Details Date Type Department Care Team (Late st Contact Info) Description 07/04/2024 9:00 AM EST Home Care Visit [facility] [address] [place] [phone] Olga Finley LPN [address] [place] [address] [email or web address] TOUR LEADER HOME VISIT Social History Tobacco Use Types [...] Sign Reading Time Taken Comments Blood Pressure 124/78 07/04/2024 10:17 AM EST Pulse 79 07/04/2024 10:17 AM EST Temperature 36.2 ??C (97.2 ??F) 07/04/2024 10:[address] Respiratory Rate 16 07/04/2024 10:17 AM EST Oxygen Saturation 97% 07/04/2024 10:17 AM EST Inhaled Oxygen Concentration - - Weight - - Height - - Body Mass Index - - documented in this encounter Plan of Treatment Upcoming Encounters Date Type Department Care Team (Late st Contact Info) Description 07/15/2024 1:30 AM EST Home Care Visit [facility] [address] [place] [address] Unscheduled, [facility] [address] [place] [address] 07/18/2024 Home Care Visit [facility] [address] [place] [address] Tala Alvarez RN [address] [place] [address] [email or web address] 07/21/2024 Appointment [facility] [address] [place] [address] Tala Alvarez RN [address] [place] [address] [email or web address] documented as of this encounter Visit Diagnoses Not on filedocumented in this encounter Home Health Visit - Care Plan Visit Details Visit Type -TOUR LEADER HOME VISIT Discipline -[facility] Problems Problem Description Start Date Status Goals [...] 1 goal linked to scheduled/document ed intervention HH - Standard of Care Disciplines: All Active Home Health Disciplines 11/27/2023 Active 1 goal linked to scheduled/document ed intervention 2 goal interventions scheduled/document ed in this visit HH - Ostomy Management Disciplines: [facility] 11/27/2023 Active 1 goal linked to scheduled/document ed intervention Goals Goal Associated Problem Outcome Goal Met? [...] - Infection - Actual or Risk of Progressing No HH - Achieve care management for a safe to home/community discharge from homecare HH - Standard of Care No HH - Demonstrate/verbalize management of ostomy care and knowledge of complications HH - Ostomy Management Progressing No Interventions Intervention Associated Problem/Goal Status Variance Visit Notes HH - I/E medication management: administration, purpose, dosages, preparation, setup, scheduling, side effects, food/drug interactions, and potential complications as indicated Description: Update patient's copy of medication list as needed. Problem:HH - Medication Management Goal:HH - Safe medication management, avoid unnecessary harm related to medication errors and/or interactions Completed HH - Complete medication review every visit and medication reconciliation as indicated. Pharmacy information: Description: [facility] Problem:HH - Medication Management Goal:HH - Safe medication management, avoid unnecessary harm related to medication errors and/or interactions Completed HH - Focus of care, teaching completed and plan for next visit Problem:HH - Focus of Care and Teaching Goal:HH - Communication and collaboration to achieve patient goals Completed Primary Clinical Focus this Visit & Instruction Provided: Pt VSS as documented. Reports to this nurse c/o leaking appliancex2 yesterday. Strategies for placement of appliance and skin products discussed. peristomal rash noted at 3 and 4oclock. Liquid barrier applied and allowed to fully dry priot to appliance placement. No other issues or complaints today. Instruction Provided to:pt/cg Response to Instruction/Teachin g: teach back techniques for preventing leakage Plan for Next Visit Specific Focus & Education Needed:wound/ostomy care and assessment New Orders:na Updated Discharge Plan: dc snv when goals met - I/E management of care in an urgent or emergency (ER) situation: When to call your Home Care Team/911, ER plans, supplies, evacuation, when to contact local ER officials and how to stay informed Problem:HH - Emergency Planning - Knowledge of Goal:HH - Knowledge of options for managing care in the event of an emergency related situation. Completed HH - Emergency planning assessment: the emergency plan, supplies needed, emergency contact numbers and an evacuation plan were reviewed Description: Patient and Caregiver is/are knowledgeable of emergency plans. Problem:HH - Emergency Planning - Knowledge of Goal:HH - Knowledge of options for managing care in the event of an emergency related situation. Completed HH - Assess vital signs, pulse oximetry, pain, and as indicated, orthostatic vital signs Description: use agency-specific parameters Problem:HH - Standard of Care Goal:HH - Achieve care management for a safe to home/community discharge from homecare Completed HH - Assess skin integrity Problem: - Standard of Care Goal:HH - Achieve care management for a safe to home/community discharge from homecare Completed documented in this encounter Care Teams Physician Office Clin Asst Relationship Specialty Start Date End Date Pcp, Unknown PCP - General 02/23/23 documented as of this encounter Additional Source Comments The information contained in this document represents components of the legal health record. It is not the complete legal health record.[facility]
--- OUTSIDE RECORDS SUMMARY | 2024-07-14 12:04 | XMS_ITS | Continuity of Care Document ---
Author Organization [facility] Address [address] [place] [address]- Care Team Providers Care A R Collections Rep Name Role Phone Brett Su MD Primary Care Physician [phone] Encounter [facility] Date(s): 07/11/24 - 07/11/[address] [address]- Discharge Disposition: A-D/C Walkout Attending Physician: Dilan Wyman DO Admitting Physician: Dilan Wyman DO Referring Physician: Not on Staff, Referring MD [...] Given pneumococcal 20-valent conjugate vaccine 01/18/23 Recorded [id number] 12y+ bivalent booster vax 01/27/23 Recorded tetanus-diphtheria toxoids (Td) 07/16/21 Given SARS-CoV-2 mRNA ([id number]) vax 07/16/21 Given Influenza Virus Vaccine (oldterm) [...] Given 1Result Comment: [03/08/2017] [facility] [place] 2Location History: [facility] 3Admin Note: center pharmacy venancio castillo 4Admin Note: per pt [facility]cvd [facility] 5Admin Note: given in clinic 6Admin Note: WING 7Admin Note: clinic ronnie Medications Albuterol (Eqv-ProAir HFA) 90 mcg/inh inhalation aerosol 2 puffs, Inhalation, Every 6 hours, PRN NEEDED FOR WHEEZING, # 8.5 each, 2 Refills, Maintenance,04/03/24 8:24:00 AM EDT, [facility] STORE [id number], 25, INHALE 2 PUFFS BY MOUTH EVERY [...] 5 Refills, Maintenance, 03/17/24 3:59:00 PMEDT, Tablet, [facility]/pharmacy #[id number], Partial fill upon patient request [...] Replace Required Details, Route to Pharmacy Electronically, [facility]/pharmacy #[id number], 163, cm, 03/17/24 15:48:00 EDT, [...] Refills, Maintenance, 03/17/24 4:10:00 PM EDT, Tablet, [facility]/pharmacy #[id number], Partial fill upon patient request [...] 4:10:00 PM EDT, Route to Pharmacy Electronically, [facility]/pharmacy #[id number], 163, cm, 03/17/24 15:48:00 EDT, [...] 1pft c/w mild obstruction, no bronchodilater response Vital Signs Most recent to oldest [Reference Range]: 1 2 Height 165 cm (07/11/24 2:12 PM) Weight 54.3 kg (07/11/24 2:12 PM) Oxygen Saturation [94-100 %] 100 % (07/11/24 2:12 PM) 100 % (07/11/24 2:10 PM) Pulse Rate [55-90 bpm] 91 bpm *H* (07/11/24 2:12 PM) 94 bpm *H* (07/11/24 2:10 PM) Blood Pressure [90-138/55-84 mm Hg] 113/ 60mm Hg (07/11/24 2:12 PM) Respiratory Rate [16-30 br/min] 16 br/mi n (07/11/24 2:12 PM) Temperature [96.8-100.4 DegF] 98.4 DegF (07/11/24 2:12 PM) Mode of Delivery (Oxygen) Room air (07/11/24 2:12 PM) Blood pressure sites Arm, left (07/11/24 2:12 PM) Temperature Route Oral (07/11/24 2:12 PM) Dry Weight 54.3 kg (07/11/24 2:12 PM) Weight Obtained Via Standing scale (07/11/24 2:12 PM) Dry Weight Obtained Via Standing scale (07/11/24 2:12 PM) Social History Social History Type Response Tobacco Use: 4 or less cigar ettes(less than 1/4 pack)/day in last 30 days. Other: Half a pack of cigarettes daily since age 25.. Sex Sex Representation Female (finding) Patient Care team information Care Team Personnel Name: Jace RN, Yoselyn Position: [facility] RN Member Role: Primary Care Nurse Name: Rand Baez RN Position: [facility] RN Member Role: Primary Care Nurse Name: Bethany Soares RN Position: [facility] RN Member Role: Primary Care Nurse Name: Pam Harmon RN Position: [facility] RN Member Role: Primary Care Nurse Name: Graciela Harmon RN Position: [facility] RN Member Role: Primary Care Nurse Name: Stella Ramos RN Position: [facility] RN Member Role: Primary Care Nurse Name: Brett Su MD Position: [facility] Physician - Primary Care Member Role: PCP Address: [address] [place] [address]- Telecom: Name: Vangie Chun RN Position: [facility] RN Member Role: Primary Care Nurse Name: Leidy Gray RN Position: [facility] RN Member Role: Primary Care Nurse Name: Jimbo Boswell RN Position: [facility] SN RN Member Role: Primary Care Nurse Name: James Alvarez RN Position: [facility] RN Member Role: Primary Care Nurse Name: Milena Rios RN Position: [facility] RN Member Role: Primary Care Nurse Name: Oralia Ashley RN Position: [facility] RN Member Role: Primary Care Nurse Name: Phyllis Holman RN Position: [facility] RN Member Role: Primary Care Nurse Name: Raya Jewell RN Position: [facility] RN Member Role: Primary Care Nurse Name: Harini Aponte RN Position: [facility] RN Member Role: Primary Care Nurse Name: Dorita Brock RN Position: [facility] RN Member Role: Primary Care Nurse Name: Nya Liu RN Position: [facility] RN Member Role: Primary Care Nurse Name: Geri Galvan RN Position: [facility] RN Member Role: Primary Care Nurse Name: Eri Mars RN Position: [facility] RN Member Role: Primary Care Nurse Name: Lula Velasco RN Position: [facility] RN Member Role: Primary Care Nurse Name: Guerline Benavides RN Position: [facility] RN Member Role: Primary Care Nurse Name: Fatimah Galaviz RN Position: [facility] ED RN W/OE and Tasks Member Role: Primary Care Nurse Care Team Related Persons Name: DESILETS, KIAN Name: MARTA LEWIS Name: GUERRERO AGUILAR Name: ITALO CORNEJO Insurance Providers Guarantor name: [facility] Plan Information #: 1 Payer: [facility] [employer] [employer] Member Number: [id number] Policy Number: NA Group Number: [facility] Plan Information #: 2 Payer: [facility] [employer] Member Number: [id number] Policy Number: NA Group Number: NA
--- OUTSIDE RECORDS SUMMARY | 2024-07-14 12:07 | XMS_ITS | Encounter Summary ---
Author Organization [facility] Address [phone] [address] [place] [address] Care Team Providers Care Barber Tool Sharpener Name Role Phone Pcp, Unknown Primary Care Provider Unavailabl e Reason for Visit * Auth/Cert (Routine) Specialty Diagnoses / Procedures Referred By Contac t Referred To Contact Referral ID Status Reason Start Date Expiration Date Visits Re quested Visits Authorized [id number] 1 1 Encounter Details Date Type Department Care Team (Late st Contact Info) Description 06/13/2024 12:45 PM EST Home Care Visit [facility] [address] [place] [phone] Yehuda Moore, PAMELA [address] [place] [address] [email or web address] SN HOME VISIT Social History Tobacco Use [...] Sign Reading Time Taken Comments Blood Pressure 124/62 06/13/2024 2:31 PM EST Pulse 69 06/13/2024 2:31 PM EST Temperature 36.3 ??C (97.4 ??F) 06/13/2024 2:31 PM ES T Respiratory Rate 18 06/13/2024 2:31 PM EST Oxygen Saturation 97% 06/13/2024 2:31 PM EST Inhaled Oxygen Concentration - - Weight - - Height - - Body Mass Index - - documented in this encounter Plan of Treatment Upcoming Encounters Date Type Department Care Team (Late st Contact Info) Description 07/15/2024 1:30 AM EST Home [facility] Visit [facility] [address] [place] [address] Unscheduled, [facility] [address] [place] [address] 07/18/2024 Home Care Visit [facility] [address] [place] [address] Tala Alvarez RN [address] [place] [address] [email or web address] 07/21/2024 Appointment [facility] [address] [place], [place] [phone] Tala Alvarez RN [address] [place] [address] [email or web address] documented as of this encounter Visit Diagnoses Not on filedocumented in this encounter Home Health Visit - Care Plan Visit Details Visit Type -SN HOME VISIT Discipline -Jail Problems Problem Description Start Date Status Goals [...] goal interventions scheduled/document ed in this visit Goals Goal [...] Planning - Knowledge of No HH - Achieve care management for a safe to home/community discharge from homecare - Standard of Care No Interventions Intervention Associated Problem/Goal Status Variance [...] Clinical Focus this Visit & Instruction Provided: Pt. alert, cooperative with care, VSS, complains of ongoing pelvic pain- urology ordered for MRI-no fixed scheduled date yet. Pt. on new medication Primidone for ongoing tremors-is scheduled for EMG next week. Noticed some improvement on tremors. Iliostomy pouch changed-tolerated well. Pt minimally participated in ostomy care d/t tremors and poor vision. Instruction Provided to: Patient Response to Instruction/Teaching: Verbalized understanding of emptying eliostomy pouch. Plan for Next Visit Specific Focus & Education Needed: iliostomy care/change pouch New Orders: no Updated Discharge Plan: 2/week - I/E management of care in an urgent or emergency (ER) situation: When to call your Home Care Team/911, ER plans, supplies, evacuation, when to contact local ER officials and how to stay informed Problem: - Emergency Planning - Knowledge of [...] homecare Completed HH - Assess skin integrity Problem:HH - Standard of Care Goal:HH - Achieve care management for a safe to home/community discharge from homecare Completed documented in this encounter Care Teams Barber Tool Sharpener Relationship Specialty Start Date End Date Pcp, Unknown PCP - General 02/23/23 documented as of this encounter Additional Source Comments The information contained in this document represents components of the legal health record. It is not the complete legal health record.[facility]
--- OUTSIDE RECORDS SUMMARY | 2024-07-14 12:07 | XMS_ITS | Encounter Summary ---
Author Organization [facility] Address [phone] [place] [address] Care Team Providers Care Lime Kiln Tender Name Role Phone Pcp, Unknown Primary Care Provider Unavailabl e Reason for Visit * Auth/Cert (Routine) Specialty Diagnoses / Procedures Referred By Contac t Referred To Contact Referral ID Status Reason Start Date Expiration Date Visits Re quested Visits Authorized [id number] 1 1 Encounter Details Date Type Department Care Team (Late st Contact Info) Description 07/04/2024 1:30 AM EST Home Care Visit [facility] [address] [place], [place] [phone] Darlene Jolly, RN [address] [place] [address] [email or web address] SN HOME VISIT Social History Tobacco Use [...] Visit [facility] [address] [place], [place] [phone] Unscheduled, [facility] [address] [place] [address] 07/18/2024 Home Care Visit [facility] [address] [place], [place] [phone] Tala Alvarez RN [address] [place] [address] [email or web address] 07/21/2024 Appointment [facility] [address] [place], [place] [phone] Tala Alvarez RN [address] [place] [address] documented as of this encounter Visit Diagnoses Not on filedocumented in this encounter Home Health Visit - Care Plan Visit Details Visit Type -SN HOME VISIT Discipline -Half-Way Problems Problem Description Start Date Status Goals [...] 1 goal linked to scheduled/document ed intervention 4 goal interventions scheduled/document ed in this visit [...] HH - Pain No HH - Demonstrate/verbalize improvement in depressive symptoms HH - Depression - Actual or Risk of Impairment No Interventions Intervention Associated Problem/Goal Status Variance Visit Notes HH - Complete medication review every visit and medication reconciliation as indicated. Pharmacy information: Description: [facility] Problem:HH - Medication Management Goal:HH - Safe medication management, avoid unnecessary harm related to medication errors and/or interactions Completed HH - I/E medication management: administration, purpose, [...] Focus this Visit & Instruction Provided: Pt cg called the service at 3am reporting ostomy appliance placed by nurse at 9pm the night before had already fallen off. SN made another PRN visit for ostomy care. upon arrival, patient laying in stool that is all over abd and R flank. SN assisted pt to shower to clean. SN provided ostomy care and did not use powder as this may have been the culprit for dislodgement after only 6h. instructed pt she should called [facility] and ask to make appt with ostomy nurse for help with trialing new appliances that will better fit her anatomy. She is agreeable to call tomorrow. HH - I/E management of care in an urgent or emergency (ER) situation: When to call your Home Care Team/911, ER plans, supplies, evacuation, when to contact local ER officials and how to stay informed Problem:HH - Emergency Planning - Knowledge of Goal:HH - Knowledge of options for managing care in the event of an emergency related situation. Scheduled - Emergency planning assessment: the emergency plan, supplies needed, emergency contact numbers and an evacuation plan were reviewed Description: Patient and Caregiver is/are knowledgeable of emergency plans. Problem:HH - Emergency Planning - Knowledge of Goal:HH - Knowledge of options for managing care in the event of an emergency related situation. Scheduled HH - Assess infection risk and s/s Problem: - Infection - Actual or Risk of Goal:HH - Patient will have no new infection; any new infection that occurs will be identified and treated promptly; existing infection will resolve without complication Completed HH - Assess safety needs of patient (other than falls) Problem: - Standard of Care Goal:HH - Achieve care management for a safe to home/community discharge from homecare Completed HH - Assess weight Problem: - Standard of Care Goal:HH - [...] HH - Assess pain Problem: - Pain Goal: - Frequency of pain interfering with patient's activity or movement will improve with activity or movement by discharge. Completed HH - Assess s/s of depression Problem: - Depression - Actual or Risk of Impairment Goal:HH - Demonstrate/verbalize improvement in depressive symptoms Completed documented in this encounter Care Teams Lime Kiln Tender Relationship Specialty Start Date End Date Pcp, Unknown PCP - General 02/23/23 documented as of this encounter Additional Source Comments The information contained in this document represents components of the legal health record. It is not the complete legal health record.[facility]
--- OUTSIDE RECORDS SUMMARY | 2024-07-14 12:07 | XMS_ITS | Encounter Summary ---
Author Organization [facility] Address [phone] [place] [address] Care Team Providers Care Oceanography Professor Name Role Phone Pcp, Unknown Primary Care Provider Unavailabl e Reason for Visit * Auth/Cert (Routine) Specialty Diagnoses / Procedures Referred By Contac t Referred To Contact Referral ID Status Reason Start Date Expiration Date Visits Re quested Visits Authorized [id number] 1 1 Encounter Details Date Type Department Care Team (Late st Contact Info) Description 06/24/2024 9:00 PM EST [facility] [address] [place] [address] Lula Ordonez RN [address] [place] [address] [email or web address] SN PRN HOME VISIT Social History Tobacco Use Types [...] Sign Reading Time Taken Comments Blood Pressure 116/70 06/24/2024 10:20 PM EST Pulse 73 06/24/2024 10:20 PM EST Temperature 36.4 ??C (97.5 ??F) 06/24/2024 10:[address] Respiratory Rate 16 06/24/2024 10:20 PM EST Oxygen Saturation 99% 06/24/2024 10:20 PM EST Inhaled Oxygen Concentration - - Weight - - Height - - Body Mass Index - - documented in this encounter Plan of Treatment Upcoming Encounters Date Type Department Care Team (Late st Contact Info) Description 07/15/2024 1:30 AM EST Home Care Visit [facility] [address] [place] [address] Unscheduled, [facility] [address] [place] [address] 07/18/2024 Home Care Visit [facility] [address] [place] [address] Tala Alvarez RN [address] [place] [address] [email or web address] 07/21/2024 Appointment [facility] [address] [place] [address] Tala Alvarez RN [address] [place] [address] [email or web address] documented as of this encounter Visit Diagnoses Not on filedocumented in this encounter Home Health Visit - Care Plan Visit Details Visit Type -SN PRN HOME VISI T Discipline -Senior Care Problems Problem Description Start [...] homecare HH - Standard of Care No Interventions Intervention [...] Clinical Focus this Visit & Instruction Provided: Call from patient reporting that her ostomy bag has begun to leak. She states that she went to a birthday dinner for her boyfriend, Rafa, and upon returning home she found that the bag had leaked on the left side toward her umbilicus. She denies any pain. VSS. Removed old bag with adhesive remover wipes. Cleansed skin thoroughly and allowed to dry. Applied barrier film and destini ring. Patient reports that she has gained weight. She has more of a skin fold at the umbilicus than she did previously. Applied some strips of destini ring to skin at 3:00 to help reduce gaps between skin and ostomy bag. Ostomy bag applied and patient covered site with warm washcloth. She states she will clean up and get to bed. Encouraged to call with any further issues. Instruction Provided to: patient and caregiver Response to Instruction/Teachin g: Is fully able to teach back topics as evidenced by verbalizes understanding. Plan for Next Visit Specific Focus & Education Needed: see POC New Orders: N/A HH - I/E management of care in [...] Completed documented in this encounter Care Teams Oceanography Professor Relationship Specialty Start Date End Date Pcp, Unknown PCP - General 02/23/23 documented as of this encounter Additional Source Comments The information contained in this document represents components of the legal health record. It is not the complete legal health record.[facility]
--- OUTSIDE RECORDS SUMMARY | 2024-07-14 12:07 | XMS_ITS | Clinical Summary ---
Author Organization [facility] Address [phone] [facility] [place] [address] Care Team Providers Care Financial Professional Name Role Phone Pcp, Unknown Primary Care Provider Unavailabl e Allergies Active Allergy Reactions Criticality Noted Date Comments Amoxicillin 02/01/2023 Ibuprofen 02/01/2023 Penicillin 02/01/2023 Simvastatin 02/01/2023 Tylenol Extended Release 02/01/2023 Medications Medication Sig Dispensed Refills Start Date End Date Status omeprazole (PRILOSEC) 20 MG capsule Take 20 mg by mouth daily. 02/01/2023 Active albuterol (PROAIR HFA) 90 mcg/actuation inhaler Inhale 2 puffs into the lungs every 6 (six) hours as needed for shortness of breath/dyspnea or wheezing. 02/01/2023 Active metoprolol succinate (TOPROL XL) 25 MG 24 hr tablet Take 12.5 mg by mouth daily. 02/08/2023 Active traZODone (DESYREL) 50 MG tablet Take 100 mg by mouth nightly at bedtime. 11/27/2023 Active nystatin (NYSTOP) powder Apply 1 Application topically 2 (two) times a week. use to peristomal skin with pouch change 12/10/2023 Active oxyBUTYnin (DITROPAN) 5 MG tablet Take 5 mg by mouth daily. Take 1 tablet by mouth every day 02/01/2024 Active LORazepam (ATIVAN) 0.5 MG tablet Take 0.5 mg by mouth 3 (three) times a day. 02/22/2024 Active oxyCODONE 5 MG immediate release tablet Take 5 mg by mouth every 8 (eight) hours as needed for pain (specific location in comments). 03/16/2024 Active sertraline (ZOLOFT) 50 MG tablet Take 50 mg by mouth daily. 03/24/2024 Active primidone (MYSOLINE) 50 MG tablet Take 50 mg by mouth daily. 05/24/2024 Active primidone (MYSOLINE) 50 MG tablet Take 50 mg by mouth 3 (three) times a day. 06/15/2024 Active cyclobenzaprine (FLEXERIL) 10 MG tablet Take 10 mg by mouth nightly at bedtime. 07/11/2024 Active gabapentin (NEURONTIN) 100 MG capsule Take 100 mg by mouth nightly at bedtime. 02/01/2023 02/08/2023 Discontinued (Stop Taking at Discharge) mirtazapine (REMERON) 7.5 MG tablet Take 7.5 mg by mouth nightly at bedtime. 02/01/2023 02/08/2023 Discontinued (Stop Taking at Discharge) Encounters Date Type Department Care Team Description 07/12/2024 8:15 AM EST Home Care Visit [facility] [address] [place] [address] Tala Alvarez RN SN PRN HOME VISIT 07/12/2024 Episode Documentatio n Update [facility] [address] [place] [address] 07/11/2024 9:30 AM EST Home Care Visit [facility] [address] [place] [address] Tala Alvarez RN SN HOME VISIT 07/07/2024 8:15 AM EST Home Care Visit [facility] [address] [place] [address] Tala Alvarez RN SN HOME VISIT 07/04/2024 9:00 AM EST Home Care Visit [facility] [address] [place] [address] Olga Finley LPN APPLICATIONS INSTRUCTOR HOME VISIT 07/04/2024 1:30 AM EST Home Care Visit [facility] [address] [place] [address] Darlene Jolly, PAMELA SN HOME VISIT 07/03/2024 2:00 AM EST Home Care Visit [facility] [address] [place] [address] Darlene Jolly, PAMELA SN HOME VISIT 07/02/2024 5:00 AM EST Home Care Visit [facility] [address] [place] [address] Lula Ordonez RN SN PRN HOME VISIT 06/29/2024 4:25 AM EST Home Care Visit [facility] [address] [place] [address] Hawa Espinoza, PAMELA SN PRN HOME VISIT 06/27/2024 10:30 AM EST Home Care Visit [facility] [address] [place] [address] Tala Alvarez RN SN HOME VISIT 06/24/2024 9:00 PM EST Home Care Visit [facility] [address] [place] [address] Lula Ordonez RN SN PRN HOME VISIT 06/23/2024 1:00 AM EST Home Care Visit [facility] [address] [place] [address] Olga Finley LPN LPN HOME VISIT 06/22/2024 8:15 PM EST Home Care Visit [facility] [address] [place] [address] Whit Cortez RN SN PRN HOME VISIT 06/20/2024 8:45 AM EST Home Care Visit [facility] [address] [place] [address] Eri Chambers LPN LPN HOME VISIT 06/18/2024 Episode Documentatio n Update [facility] [address] [place] [address] Justin Castro 06/16/2024 8:45 AM EST Home Care Visit [facility] [address] [place] [address] Eri Chambers LPN APPLICATIONS INSTRUCTOR HOME VISIT 06/13/2024 1:30 PM EST Home Care Visit [facility] [address] [place], [place] [phone] Tala Alvarez, RN SN PRECEPTOR CO-VISIT 06/13/2024 12:45 PM EST Home Care Visit [facility] [address] [place], [place] [phone] Yehuda Moore RN SN HOME VISIT 06/09/2024 2:00 PM EST Home Care Visit [facility] [address] [place], [place] [phone] Megan Alonso RN SN HOME VISIT 06/07/2024 8:00 AM EST Home Care Visit [facility] [address] [place] [address] Eri Chambers LPN APPLICATIONS INSTRUCTOR PRN HOME VISIT 06/06/2024 8:45 AM EST Home Care Visit [facility] [address] [place] [address] Eri Chambers LPN APPLICATIONS INSTRUCTOR HOME VISIT 06/02/2024 8:30 AM EST Home Care Visit [facility] [address] [place] [address] Eri Chambers LPN APPLICATIONS INSTRUCTOR HOME VISIT 05/30/2024 8:30 AM EST Home Care Visit [facility] [address] [place] [address] Eri Chambers LPN APPLICATIONS INSTRUCTOR HOME VISIT 05/29/2024 Episode Documentatio n Update [facility] [address] [place] [address] Patience Danielle 05/24/2024 Plan of Care Documentation [facility] [address] [place], [place] [phone] 05/23/2024 11:00 AM EST Home Care Visit [facility] [address] [place], [place] [phone] Tala Alvarez, RN SN OASIS RECERTIFICATION/FUP 05/19/2024 8:30 AM EST Home Care Visit [facility] [address] [place], [place] [phone] Tala Alvarez RN SN HOME VISIT 05/19/2024 Home Care Visit [facility] [address] [place] [address] Sweta Bolanos, PT CASE COMMUNICATION 05/18/2024 Episode Documentatio n Update [facility] [address] [place] [address] 05/17/2024 6:05 PM EST Home Care Visit [facility] [address] [place] [address] Hawa Espinoza, PAMELA SN PRN HOME VISIT 05/16/2024 9:45 AM EST Home Care Visit [facility] [address] [place] [address] Tala Alvarez RN SN HOME VISIT 05/13/2024 Home Care Visit [facility] [address] [place] [address] Ernestine Gillette, RN CASE COMMUNICATION 05/13/2024 Home Care Visit [facility] [address] [place] [address] Lula Ordonez, RN TELEPHONE ENCOUNTER 05/13/2024 Home Care Visit [facility] [address] [place], [place] [phone] Olga Finley LPN APPLICATIONS INSTRUCTOR PRN HOME VISIT 05/12/2024 Home Care Visit [facility] [address] [place], [place] [phone] Avani Simmons, RN SN PRN HOME VISIT 05/10/2024 5:55 AM EST Home Care Visit [facility] [address] [place], [place] [phone] Hawa Espinoza, RN SN PRN HOME VISIT 05/08/2024 11:15 AM EST Home Care Visit [facility] [address] [place] [address] Eri Chambers, ZENY APPLICATIONS INSTRUCTOR HOME VISIT 05/06/2024 10:00 AM EST Home Care Visit [facility] [address] [place] [address] Milana Marion, PAMELA SN HOME VISIT 05/03/2024 11:10 PM EST Home Care Visit [facility] [address] [place] [address] Hawa Espinoza, PAMELA SN PRN HOME VISIT 05/02/2024 Home Care Visit [facility] [address] [place] [address] Tala Alvarez, RN CASE COMMUNICATION 05/01/2024 9:30 AM EST Home Care Visit [facility] [address] [place] [address] Tala Alvarez RN SN PRECEPTOR CO-VISIT 05/01/2024 9:30 AM EST Home Care Visit [facility] [address] [place] [address] Yehuda Moore RN SN HOME VISIT 04/28/2024 3:30 PM EST Home Care Visit [facility] [address] [place] [address] Willa Reese, PT PT DISCIPLINE DISCHARGE VISIT 04/27/2024 9:20 AM EST Home Care Visit [facility] [address] [place] [address] Eri Chambers, APPLICATIONS INSTRUCTOR APPLICATIONS INSTRUCTOR HOME VISIT 04/26/2024 9:30 PM EST Home Care Visit [facility] [address] [place] [address] Gemma Muir, RN SN HOME VISIT 04/26/2024 Home Care Visit [facility] [address] [place], [place] [phone] Gemma Muir, RN CASE COMMUNICATION 04/24/2024 3:30 PM EST Home Care Visit [facility] [address] [place] [address] Willa Reese, PT PT HOME VISIT 04/24/2024 1:00 PM EST Home Care Visit [facility] [address] [place], [place] [phone] Eri Chambers LPN APPLICATIONS INSTRUCTOR HOME VISIT 04/20/2024 8:00 AM EST Home Care Visit [facility] [address] [place] [address] Tala Alvarez, PAMELA SN HOME VISIT 04/19/2024 Episode Documentatio n Update [facility] [address] [place] [address] 04/17/2024 3:30 PM EST Home Care Visit [facility] [address] [place] [address] Willa Reese, PT PT EVALUATION 04/17/2024 3:30 AM EST Home Care Visit [facility] [address] [place] [address] Lula Ordonez RN SN PRN HOME VISIT 04/17/2024 Episode Documentatio n Update [facility] [address] [place] [address] 04/13/2024 11:00 AM EDT Home Care Visit [facility] [address] [place] [address] Tala Alvarez RN SN HOME VISIT 04/13/2024 Home Care Visit [facility] [address] [place], [place] [phone] Jennyfer Anderson, PT CASE COMMUNICATION from Last 3 Months Social History Tobacco Use Types Packs/Day Years [...] on file Sexual Orientation Not on file Last Filed Vital Signs Vital Sign Reading Time Taken Comments Blood Pressure 118/82 07/11/2024 10:17 AM EST Pulse 84 07/11/2024 10:17 AM EST Temperature 37.1 ??C (98.7 ??F) 07/11/2024 10:[address] Respiratory Rate 18 07/11/2024 10:17 AM EST Oxygen Saturation 98% 07/11/2024 10:17 AM EST Inhaled Oxygen Concentration - - Weight 54 kg (119 lb) 07/07/2024 9:05 AM EST Height - - Body Mass Index - - Plan of Treatment Upcoming Encounters Date Type Department Care Team (Late st Contact Info) Description 07/15/2024 1:30 AM EST Home Care Visit [facility] [address] [place] [address] Unscheduled, [facility] [address] [place] [address] 07/18/2024 Home Care Visit [facility] [address] [place], [place] [phone] Tala Alvarez RN [address] [place] [address] 07/21/2024 Appointment [facility] [address] [place], [place] [phone] Tala Alvarez RN [address] [place] [address] Health Maintenance Due Date Last Done Comments LIPID PANEL 1965 DEPRESSION SCREENING 1977 SMOKING Hx and SMOKELESS TOBACCO SCREENING 1978 HEPATITIS B SCREENING 1983 HEPATITIS C SCREENING 1983 HIV ONE-TIME SCREENING (18-65 YEARS) 1983 HEPATITIS B VACCINES (1 of 3 - 19+ 3-dose series) 01/02/1984 PAP SMEAR 1986 MAMMOGRAM 2005 COLOGUARD 2010 COLONOSCOPY 2010 COLORECTAL CANCER SCREENING 2010 FIT TEST 2010 FOBT 2010 SIGMOIDOSCOPY 2010 VIRTUAL COLONOSCOPY 2010 INFLUENZA VACCINE (#1) 2024 , 02/23/2020, 03/09/2019, Additional history exists COVID-19 VACCINE ( season) 2024 01/27/2023, 10/03/2020, 09/12/2020 Adult Td,Tdap Booster 07/16/2031 07/16/2021 ZOSTER VACCINES Completed 08/06/2020, 09/2020, 06/18/2020, Additional history exists PNEUMOCOCCAL VACCINES (50+ years) Completed 02/09/2023, 01/18/2023 HEPATITIS A VACCINES Aged Out No long er eligible based on patient's age to complete this topic HIB VACCINES Aged Out No longer eligi ble based on patient's age to complete this topic MENINGOCOCCAL VACCINES (ACWY) Aged Out No longer eligible based on patient's age to complete this topic Medical Devices Not on file Leanderbrianababak Randi Personal/Family Self [address] [place] [address] Desilets, Randi Personal/Family Self [address] [place] [address] Desilets, Randi Personal/Family Self [address] [place] [address] Desilets[place] Randi Personal/Family Self [address] [place] [address] Desilets, Randi Personal/Family Self [address] [place] [address] Desilets, Randi Personal/Family Self [address] [place] [address] Desilets, Randi Personal/Family Self [address] [address] Desilets, Randi Personal/Family Self [address] [place] [address] Care Teams Financial Professional Relationship Specialty Start Date End Date Pcp, Unknown PCP - General 02/23/23 Additional Source Comments The information contained in this document represents components of the legal health record. It is not the complete legal health record.[facility]
--- OUTSIDE RECORDS SUMMARY | 2024-07-14 12:07 | XMS_ITS | Encounter Summary ---
Author Organization [facility] Address [phone] [place] [address] Care Team Providers Care Roving Technician Name Role Phone Pcp, Unknown Primary Care Provider Unavailabl e Reason for Visit * Auth/Cert (Routine) Specialty Diagnoses / Procedures Referred By Contac t Referred To Contact Referral ID Status Reason Start Date Expiration Date Visits Re quested Visits Authorized [id number] 1 1 Encounter Details Date Type Department Care Team (Late st Contact Info) Description 06/27/2024 10:30 AM EST Home Care Visit [facility] [address] [place] [phone] Tala Alvarez, RN [address] [place] [address] SN HOME VISIT Social History Tobacco Use [...] Sign Reading Time Taken Comments Blood Pressure 122/74 06/27/2024 11:34 AM EST Pulse 84 06/27/2024 11:34 AM EST Temperature 37.1 ??C (98.8 ??F) 06/27/2024 11:[address] Respiratory Rate 18 06/27/2024 11:34 AM EST Oxygen Saturation 98% 06/27/2024 11:34 AM EST Inhaled Oxygen Concentration - - Weight 53.5 kg (118 lb) 06/27/2024 11:34 AM EST Height - - Body Mass Index - - documented in this encounter Plan of Treatment Upcoming Encounters Date Type Department Care Team (Late st Contact Info) Description 07/15/2024 1:30 AM EST Home Care Visit [facility] [address] [place], [place] [phone] Unscheduled, [facility] [address] [place] [address] 07/18/2024 Home Care Visit [facility] [address] [place], [place] [phone] Tala Alvarez RN [address] [place] [address] [email or web address] 07/21/2024 Appointment [facility] [address] [place], [place] [phone] Tala Alvarez RN [address] [place] [address] [email or web address] documented as of this encounter Visit Diagnoses Not on filedocumented in this encounter Home Health Visit - Care Plan Visit Details Visit Type -SN HOME VISIT Discipline -Usp Problems Problem Description Start Date Status Goals [...] teaching completed and plan for next visit Problem: - Focus of Care and Teaching Goal: - Communication and collaboration to achieve patient goals Completed Primary Clinical Focus this Visit & Instruction Provided: pt reports feeling well, ileostomy changed - no skin breakdown noted. Output is liquid today. she thinks it's from having [place] with large amount of butter. Appetite is good - she reports output is usually baby food consistency. Pt continues to present with tremors, Has MRI scheduled. EMG showed neuropathy. There are more tests scheduled next week she is unsure what they are testing next, but she was told that she does not have parkinsons disease. Pt remains unable to perform pouch change due to tremors. Instruction Provided to: patient Response to Instruction/Teachin g: Is fully able to teach back topics as evidenced by verbalizes understanding. Plan for Next Visit Specific Focus & Education Needed: ileostomy change New Orders: no Updated Discharge Plan: no HH - I/E management of care in [...] Completed documented in this encounter Care Teams Roving Technician Relationship Specialty Start Date End Date Pcp, Unknown PCP - General 02/23/23 documented as of this encounter Additional Source Comments The information contained in this document represents components of the legal health record. It is not the complete legal health record.[facility]
--- OUTSIDE RECORDS SUMMARY | 2024-07-14 12:07 | XMS_ITS | Encounter Summary ---
Author Organization [facility] Address [phone] [place] [address] Care Team Providers Care Student Name Role Phone Pcp, Unknown Primary Care Provider Unavailabl e Reason for Visit * Auth/Cert (Routine) Specialty Diagnoses / Procedures Referred By Contac t Referred To Contact Referral ID Status Reason Start Date Expiration Date Visits Re quested Visits Authorized [id number] 1 1 Encounter Details Date Type Department Care Team (Late st Contact Info) Description 07/11/2024 9:30 AM EST Home Care Visit [facility] [address] [place] [phone] Tala Alvarez, RN [address] [place] [address] [email or web address] SN HOME VISIT Social History Tobacco Use [...] 1:30 AM EST Home Care Visit [facility] [address] [place] [phone] Unscheduled, [facility] [address] [place] [address] 07/18/2024 Home Care Visit [facility] [address] [place], [place] [phone] Tala Alvarez RN [address] [place] [address] [email or web address] 07/21/2024 Appointment [facility] [address] [place], [place] [phone] Tala Alvarez RN [address] [place] [address] [email or web address] documented as of this encounter Visit Diagnoses Not on filedocumented in this encounter Home Health Visit - Care Plan Visit Details Visit Type -SN HOME VISIT Discipline -Penitentiary Problems Problem Description Start Date Status Goals [...] this visit HH - Ostomy Management Disciplines: Penitentiary 11/27/2023 Active 1 goal linked to scheduled/document [...] of complications HH - Ostomy Management No Interventions Intervention Associated Problem/Goal Status Variance [...] medication reconciliation as indicated. Pharmacy information: Description: [facility] Problem:HH - Medication Management Goal:HH - Safe medication management, avoid unnecessary harm related to medication errors and/or interactions Completed HH - Focus of care, teaching completed and plan for next visit Problem:HH - Focus of Care and Teaching Goal:HH - Communication and collaboration to achieve patient goals Completed Primary Clinical Focus this Visit & Instruction Provided: pt reports going to Ed over weekend due to pain - she was told it was an anxiety attack, work up was normal, she was started on flexeril for muscle spasms and has a referral to neuro surgery. Lieostomy with thicker babyfood consistency output- no leakage noted. Pt has received new supplies including [employer] Advanced skin prep. Ileostomy appliance canged. Pt continues to present with tremor and poor vision unable to perform self care. She reports she has not had any contact from Disabled at risk to explore additional supports for self care of ileostomy. Instruction Provided to: patient Response to Instruction/Ailynin g: Is fully able to teach back topics as evidenced by verbalizes understanding. Plan for Next Visit Specific Focus & Education Needed: ileostomy care New Orders: no Updated Discharge Plan: no plans for discharge due to no willing able caregiver to assume ileostomy care and pt unable to perform task HH - I/E management of care in an urgent or emergency (ER) situation: When to call your Home Care Team/911, ER plans, supplies, evacuation, when to contact local ER officials and how to stay informed Problem: - Emergency Planning - Knowledge of Goal: - Knowledge of options for managing care in the event of an emergency related situation. Completed - Emergency planning assessment: the emergency plan, supplies needed, emergency contact numbers and an evacuation plan were reviewed Description: Patient and Caregiver is/are knowledgeable of emergency plans. Problem: - Emergency Planning - Knowledge of Goal: - Knowledge of options for managing care in the event of an emergency related situation. Completed - Assess vital signs, pulse oximetry, pain, and as indicated, orthostatic vital signs Description: use agency-specific parameters Problem: - Standard of Care Goal: - Achieve care management for a safe to home/community discharge from homecare Completed - Assess skin integrity Problem: - Standard of Care Goal:HH - Achieve care management for a safe to home/community discharge from homecare Completed - Diet: Description: regular diet Problem: - Standard of Care Goal: - Achieve care management for a safe to home/community discharge from homecare Completed - Ostomy assessment: Stoma (measurement, appearance, flat/retracted, mucocutaneous separation, anselmo stoma irritation or breakdown) and signs of complications Description: Assess nutritional status, risk of body image issues, emotional needs, and coping skills. Problem: - Ostomy Management Goal:HH - Demonstrate/verbalize management of ostomy care and knowledge of complications Completed - I/E Ostomy management: Ostomy and Stoma care, signs of complications, nutrition/hydration needs, and coping strategies Problem: - Ostomy Management Goal:HH - Demonstrate/verbalize management of ostomy care and knowledge of complications Completed - Ostomy care Description: Specific Treatment: END LOOP ILEOSTOMY Change Device/Appliance every 2X/WEEK and PRN if leaking or lack of integrity. Problem: - Ostomy Management Goal:HH - Demonstrate/verbalize management of ostomy care and knowledge of complications Completed documented in this encounter Care Teams Student Relationship Specialty Start Date End Date Pcp, Unknown PCP - General 02/23/23 documented as of this encounter Additional Source Comments The information contained in this document represents components of the legal health record. It is not the complete legal health record.[facility]
--- OUTSIDE RECORDS SUMMARY | 2024-07-14 12:07 | XMS_ITS | Encounter Summary ---
Author Organization [facility] Address [phone] [place] [address] Care Team Providers Care Mortar Carrier Name Role Phone Pcp, Unknown Primary Care Provider Unavailabl e Reason for Visit * Auth/Cert (Routine) Specialty Diagnoses / Procedures Referred By Contac t Referred To Contact Referral ID Status Reason Start Date Expiration Date Visits Re quested Visits Authorized [id number] 1 1 Encounter Details Date Type Department Care Team (Late st Contact Info) Description 06/29/2024 4:25 AM EST Home Care Visit [facility] [address] [place], [place] [phone] Hawa Espinoza, RN [address] [place] [phone] [email or web address] SN PRN HOME VISIT Social History Tobacco [...] 1:30 AM EST Home Care Visit [facility] [address] [place], [place] [phone] Unscheduled, [facility] [address] [place] [address] 07/18/2024 Home Care Visit [facility] [address] [place], [place] [phone] Tala Alvarez RN [address] [place] [address] [email or web address] 07/21/2024 Appointment [facility] [address] [place], [place] [phone] Tala Alvarez RN [address] [place] [address] [email or web address] documented as of this encounter Visit Diagnoses Not on filedocumented in this encounter Home Health Visit - Care Plan Visit Details Visit Type -SN PRN HOME VISI T Discipline -Jail Problems Problem Description Start Date Status Goals Interve ntions HH - Medication Management Disciplines: All Active Home Health Disciplines 11/27/2023 Active 1 goal linked to scheduled/document ed intervention 2 goal interventions scheduled/document ed in this visit HH - Health Maintenance Disciplines: All Active Home Health Disciplines 11/27/2023 Active 1 goal linked to scheduled/document ed intervention HH - Focus of Care and Teaching [...] scheduled/document ed in this visit HH - Falls - Risk of Disciplines: All Active Home Health [...] this visit HH - Ostomy Management Disciplines: Jail 11/27/2023 Active 1 goal linked to scheduled/document ed intervention 3 goal interventions scheduled/document ed in this visit HH - Depression - Actual or Risk of Impairment Disciplines: All Active Home Health Disciplines 11/27/2023 Active 1 goal linked to scheduled/document ed intervention 1 goal intervention scheduled/document ed in this visit HH - Anxiety - Actual or Risk of Impairment Disciplines: All Active Home Health Disciplines 11/27/2023 Active 1 goal linked to scheduled/document ed intervention 1 goal intervention scheduled/document ed in this visit Goals Goal Associated Problem Outcome Goal Met? Visit Notes HH - Safe medication management, avoid unnecessary harm related to medication errors and/or interactions HH - Medication Management Progressing No HH - Patient preferences will be utilized to achieve optimal wellness and home safety. HH - Health Maintenance Progressing No HH - Communication and collaboration to achieve patient goals HH - Focus of Care and Teaching Progressing No HH - Knowledge of options for [...] or Risk of Progressing No HH - Knowledge and management of fall prevention measures. HH - Falls - Risk of Progressing No HH - Achieve [...] 0 - no pain. HH - Pain Progressing No HH - Demonstrate/verbalize management of ostomy care and knowledge of complications HH - Ostomy Management Progressing No HH - Demonstrate/verbalize improvement in depressive symptoms HH - Depression - Actual or Risk of Impairment Progressing No HH - Decrease anxiety through knowledge and management of triggers. HH - Anxiety - Actual or Risk of Impairment Progressing No Interventions Intervention Associated Problem/Goal Status [...] Clinical Focus this Visit & Instruction Provided: PRN visit to patient's home this morning. Patient called answering service at 4:00 AM due to leaking ileostomy pouch. On arrival found patient on couch waiting to assistance with changing the pouch. Patient had stool all over her abdomen. Skin/hygiene care provided. Pouch removed and skin rash at lower right quadrant of where ostomy bag was. Nystatin power applied to skin rash. Patient's skin was prepped (cleansed and dried thoroughly) for a new pouch to be placed. Stoma powder and skin prep applied. Gloria seal, pre-cut pouch, skin prep/ Cavilon Advanced Skin Protectant and barrier rings used to hold pouching system in place. Patient able to tolerate ostomy care well. Patient advised to call with any questions or concerns. Instruction Provided to: patient and caregiver Response to Instruction/Teaching: Is fully able to teach back topics as evidenced by verbalizes understanding . Plan for Next Visit Specific Focus & Education Needed: ileostomy pouch change New Orders: Supplies for ostomy Updated Discharge Plan: HH - I/E management of care in [...] an emergency related situation. Completed HH - I/E infection Description: adhere to infection precautions, infection prevention measures and s/s of infection Problem:HH - Infection - Actual or Risk of Goal:HH - Patient will have no new infection; any new infection that occurs will be identified and treated promptly; existing infection will resolve without complication Completed - Assess infection risk and s/s Problem: - Infection - Actual or Risk of Goal:HH - Patient will have no new infection; any new infection that occurs will be identified and treated promptly; existing infection will resolve without complication Completed - Assess vital signs, pulse oximetry, pain, and as indicated, orthostatic vital signs Description: use agency-specific parameters Problem: - Standard of Care Goal:HH - Achieve care management for a safe to home/community discharge from homecare Completed HH - Assess skin integrity Problem:HH - Standard of Care Goal:HH - Achieve care management for a safe to home/community discharge from homecare Completed HH - Precautions Problem:HH - Standard of Care Goal:HH - Achieve care management for a safe to home/community discharge from homecare Completed HH - Assess pain Problem: - Pain Goal:HH - Frequency of pain interfering with patient's activity or movement will improve with activity or movement by discharge. Completed - I/E pain management Problem: - Pain Goal:HH - Frequency of pain interfering with patient's activity or movement will improve with activity or movement by discharge. Completed - Ostomy management (type & device): Description: OSTOMY TYPE: ILEOSTOMY DEVICE PRODUCT NAME AND SIZE: GLORIA SLIMS- [id number] 1-PIECE COLOPLAST [id number]. Problem:HH - Ostomy Management Goal:HH - Demonstrate/verbalize [...] PRN if leaking or lack of integrity. Problem:HH - Ostomy Management Goal:HH - Demonstrate/verbalize management of ostomy care and knowledge of complications Completed - Assess s/s of depression Problem:HH - Depression - Actual or Risk of Impairment Goal:HH - Demonstrate/verbalize improvement in depressive symptoms Completed - I/E anxiety management, causes, treatment options and coping mechanisms Problem: - Anxiety - Actual or Risk of Impairment Goal: - Decrease anxiety through knowledge and management of triggers. Completed documented in this encounter Care Teams Mortar Carrier Relationship Specialty Start Date End Date Pcp, Unknown PCP - General 02/23/23 documented as of this encounter Additional Source Comments The information contained in this document represents components of the legal health record. It is not the complete legal health record.[facility]
--- OUTSIDE RECORDS SUMMARY | 2024-07-14 12:07 | XMS_ITS | Encounter Summary ---
Author Organization [facility] Address [phone] [place] [address] Care Team Providers Care Vrt Mechanic Name Role Phone Pcp, Unknown Primary Care Provider Unavailabl e Reason for Visit * Auth/Cert (Routine) Specialty Diagnoses / Procedures Referred By Contac t Referred To Contact Referral ID Status Reason Start Date Expiration Date Visits Re quested Visits Authorized [id number] 1 1 Encounter Details Date Type Department Care Team (Late st Contact Info) Description 07/12/2024 8:15 AM EST Home Care Visit [facility] [address] [place], [place] [phone] Tala Alvarez, RN [address] [place] [address] [email or web address] SN PRN HOME VISIT Social History Tobacco [...] Visit [facility] [address] [place] [phone] Unscheduled, [facility] [address] [place] [address] 07/18/2024 Home Care Visit [facility] [address] [place], [place] [phone] Tala Alvarez RN [address] [place] [address] [email or web address] 07/21/2024 Appointment [facility] [address] [place], [place] [phone] Tala Alvarez RN [address] [place] [address] documented as of this encounter Visit Diagnoses Not on filedocumented in this encounter Home Health Visit - Care Plan Visit Details Visit Type -SN PRN HOME VISI T Discipline -Snf Problems Problem Description Start Date Status Goals [...] Clinical Focus this Visit & Instruction Provided: ileostomy leakage reported this am, visit made, noted that output is more liquid and barrier seal is disintegrated allowing for leak. Ileostomy care provided. Will outreach to GI Dr. Nielsen and his ostomy team for recommendations. Pt may benefit from metamucil to thicken output and prevent leakage, May also benefit from convex appliance withwout seal. Supplies not available again for 4 weeks will attempt to obtain samples. Pt does not want to change to a 2 piece system as she is familiar with emptying the current pouch. Instruction Provided to: patient and caregiver Response to Instruction/Teaching: Is fully able to teach back topics as evidenced by verbalizes understanding. Plan for Next Visit Specific Focus & Education Needed: ileostomy care New Orders: no Updated Discharge Plan: 2xweek and prn - I/E management of care in an [...] Completed documented in this encounter Care Teams Vrt Mechanic Relationship Specialty Start Date End Date Pcp, Unknown PCP - General 02/23/23 documented as of this encounter Additional Source Comments The information contained in this document represents components of the legal health record. It is not the complete legal health record.[facility]
--- OUTSIDE RECORDS SUMMARY | 2024-07-14 12:07 | XMS_ITS | Encounter Summary ---
Author Organization [facility] Address [phone] [place] [address] Care Team Providers Care Production Helper Name Role Phone Pcp, Unknown Primary Care Provider Unavailabl e Encounter Details Date Type Department Care Team (Late st Contact Info) Description 06/18/2024 Episode Documentatio n Update [facility] [address] [place], [place] [phone] Justin Social History Tobacco Use Types Packs/Day Years [...] 1:30 AM EST Home Care Visit [facility] [address] [place], [place] [phone] Unscheduled, [facility] [address] [place] [address] 07/18/2024 Home Care Visit [facility] [address] [place], [place] [phone] Tala Alvarez, RN [address] [place], [place] 07/21/2024 Appointment [facility] [address] [place] [phone] Tala Alvarez, RN [address] [place] [address] [email or web address] documented as of this encounter Visit Diagnoses Not on filedocumented in this encounter Care Teams Production Helper Relationship Specialty Start Date End Date Pcp, Unknown PCP - General 02/23/23 documented as of this encounter Additional Source Comments The information contained in this document represents components of the legal health record. It is not the complete legal health record.[facility]
--- OUTSIDE RECORDS SUMMARY | 2024-07-14 12:07 | XMS_ITS | Encounter Summary ---
Author Organization [facility] Address [phone] [place] [address] Care Team Providers Care Hardwood Floor Layer Name Role Phone Pcp, Unknown Primary Care Provider Unavailabl e Reason for Visit * Auth/Cert (Routine) Specialty Diagnoses / Procedures Referred By Contac t Referred To Contact Referral ID Status Reason Start Date Expiration Date Visits Re quested Visits Authorized [id number] 1 1 Encounter Details Date Type Department Care Team (Late st Contact Info) Description 06/22/2024 8:15 PM EST Home Care Visit [facility] [address] [place], [place] [phone] Whit Cortez, RN [address] [place] [address] [email or web address] SN PRN HOME VISIT Social [...] 1:30 AM EST Home Care Visit [facility] [address] [place], [place] [phone] Unscheduled, [facility] [address] [place] [address] 07/18/2024 Home Care Visit [facility] [address] [place], [place] [phone] Tala Alvarez RN [address] [place] [address] [email or web address] 07/21/2024 Appointment [facility] [address] [place], [place] [phone] Tala Alvarez RN [address] [place] [address] [email or web address] documented as of this encounter Visit Diagnoses [...] Actual or Risk of No HH - Knowledge and management of fall prevention measures. HH - Falls - Risk of No HH - Achieve care [...] - Actual or Risk of Impairment No HH - Decrease anxiety through knowledge and management of triggers. HH - Anxiety - Actual or Risk of Impairment No [...] Clinical Focus this Visit & Instruction Provided: prn visit for leaking ileostomy. pt reports leaking to ileostomy that started about an hour ago. large amount of soft stool to peristoma, pt reports leaking typically starts near the mid abdomen. site cleaned and peristoma cdi. challenging ostomy application d/t active output. cavilon advanced skin prep applied to peristoma, followed by eaking ring once skin dry and tacky, small additional eaking piece applied to divot area where leaking usually happens. one piece precut bag applied and curved barrier strips applied to reinforce bag. pt used a small warm towel to warm bag and help with adhesion. Instruction Provided to: patient and caregiver Response to Instruction/Teachin g: Is partially able to teach back topics as evidenced by Plan for Next Visit Specific Focus & Education Needed: *ileostomy care New Orders: * Updated Discharge Plan: * HH - I/E management of care in [...] resolve without complication Completed HH - Assess infection risk and s/s Problem:HH - Infection - Actual or Risk of Goal:HH - Patient will have no new infection; any new infection that occurs will be identified and treated promptly; existing infection will resolve without complication Completed HH - I/E fall prevention measures Description: diagnosis/age related changes/prior history of falls: symptoms and side effects of illness/injury/history of falls placing patient at increased risk for falls. may include management of dizziness/orthostasis, environmental hazards: modification of environment to include clear walkways, secure animals, and move frequently used items within reach, use of equipment, impaired functional mobility: supervision for mobility/activity, appropriate footwear and as indicated safe use of assistive device(s), pain affecting level of function: impact of pain on an increased risk of falls and poly pharmacy: side effects of medications placing a patient at high risk for a fall Problem:HH - Falls - Risk of Goal:HH - Knowledge and management of fall prevention measures. Completed HH - Assess vital signs, pulse [...] home/community discharge from homecare Completed HH - I/E discharge plan Problem:HH - Standard of Care Goal:HH - Achieve care management for a safe to home/community discharge from homecare Completed HH - Assess pain Problem:HH - Pain Goal:HH - Frequency of pain interfering with patient's activity or movement will improve with activity or movement by discharge. Completed HH - Assess s/s of depression Problem:HH - Depression - Actual or Risk of Impairment Goal:HH - Demonstrate/verbalize improvement in depressive symptoms Completed HH - I/E anxiety management, causes, treatment options and coping mechanisms Problem:HH - Anxiety - Actual or Risk of Impairment Goal:HH - Decrease anxiety through knowledge and management of triggers. Completed documented in this encounter Care Teams Hardwood Floor Layer Relationship Specialty Start Date End Date Pcp, Unknown PCP - General 02/23/23 documented as of this encounter Additional Source Comments The information contained in this document represents components of the legal health record. It is not the complete legal health record.[facility]
--- OUTSIDE RECORDS SUMMARY | 2024-07-14 12:07 | XMS_ITS | Encounter Summary ---
Author Organization [facility] Address [phone] [place] [address] Care Team Providers Care Reticle Printer Name Role Phone Unknown, Unknown Primary Care Provider Brett Whitaker MD Primary Care Provider [phone] Pcp, Unknown Primary Care Provider Unavailabl e Encounter Details Date Type Department Care Team (Late st Contact Info) Description 01/21/2023 Transcribe Orders [facility] Specimen Processing [address] [place] [address] Stewart Carlson MD [address] [facility] [address], [address] [place] [address] [email or web address] Anemia, unspecified type (Primary Dx) Social History Tobacco Use Types Packs/Day Years Used Date Smoking Tobacco: Never Assessed Digital Access Answer Date Recorded No 01/06/2023 [...] 1:30 AM EST Home Care Visit [facility] [address] [place], [place] [phone] Unscheduled, [facility] [address] [place] [address] 07/18/2024 Home Care Visit [facility] [address] [place], [place] [phone] Tala Alvarez RN [address] [place] [address] 07/21/2024 Appointment [facility] [address] [place] [address] Tala Alvarez, RN [address] [place] [address] [email or web address] documented as of this encounter Results * Vitamin B12 (01/21/2023 5:50 AM EDT) VITAMIN B12 1,019 232 - 1,245 pg/mL [facility] 01/21/2023 5:50 AM EDT 01/21/2023 12:07 PM EDT Stewart Carlson MD LAB BLOOD ORDERABLES Performing Organization Address City/[facility]/ZIP Co de Phone Number [address] [address] * (ABNORMAL) Iron and iron binding capacity (01/21/2023 5:50 AM EDT) IRON 67 30 - 160 ug/dL [facility] IRON BINDING CAPACITY 222(L) 228 - 428 ug/dL [facility] TRANSFERRIN SATURAT. 30 15 - 50 % [facility] 01/21/2023 5:50 AM EDT 01/21/2023 12:07 PM EDT Stewart Carlson MD LAB BLOOD ORDERABLES [address] [address] * Ferritin (01/21/2023 5:50 AM EDT) FERRITIN 56 13 - 150 ug/L [facility] 01/21/2023 5:50 AM EDT 01/21/2023 12:07 PM EDT Stewart Carlson MD LAB BLOOD ORDERABLES [address] [address] * (ABNORMAL) Folate (01/21/2023 5:50 AM EDT) FOLIC ACID 3.0(L) 4.2 - 19.9 ng/mL [facility] 01/21/2023 5:50 AM EDT 01/21/2023 12:07 PM EDT Stewart Carlson MD LAB BLOOD ORDERABLES Performing Organization Address [facility] Co de Phone Number [address] [address] * (ABNORMAL) CBC (01/21/2023 5:50 AM EDT) WBC 6.33 4.00 - 11.00 K/uL [facility] RBC 2.92(L) 3.72 - 5.30 M/uL [facility] HGB 8.4(L) 11.4 - 15.9 g/dL [facility] HCT 27.7(L) 34.2 - 46.8 % [facility] PLT 228 140 - 430 K/uL [facility] MCV 94.9 78.0 - 97.0 fL [facility] MCH 28.8 25.0 - 33.0 pg [facility] MCHC 30.3(L) 32.0 - 36.0 g/dL [facility] RDW 16.9(H) 11.0 - 16.0 % [facility] MPV 11.5 8.4 - 12.8 fl [facility] 01/21/2023 5:50 AM EDT 01/21/2023 12:07 PM EDT Stewart Carlson MD LAB BLOOD ORDERABLES Performing Organization Address [facility]/ZIP Co de Phone Number [address] [address] documented in this encounter Visit Diagnoses Diagnosis Anemia, unspecified type- Primary documented in this encounter Care Teams Reticle Printer Relationship Specialty Start Date End Date Unknown, Unknown, PCP - General 01/21/23 01/27/23 Brett Su MD [address] [place] [address] PCP - General Internal Medicine 01/28/23 01/28/23 Pcp, Unknown PCP - General 02/23/23 documented as of this encounter Additional Source Comments The information contained in this document represents components of the legal health record. It is not the complete legal health record.[facility]
--- OUTSIDE RECORDS SUMMARY | 2024-07-14 12:07 | XMS_ITS | Encounter Summary ---
Author Organization [facility] Address [phone] [place] [address] Care Team Providers Care Transit Proof Machine Operator Name Role Phone Pcp, Unknown Primary Care Provider Unavailabl e Reason for Visit * Auth/Cert (Routine) Specialty Diagnoses / Procedures Referred By Contac t Referred To Contact Referral ID Status Reason Start Date Expiration Date Visits Re quested Visits Authorized [id number] 1 1 Encounter Details Date Type Department Care Team (Late st Contact Info) Description 06/16/2024 8:45 AM EST Home Care Visit [facility] [address] [place] [phone] Eri Chambers LPN [email or web address] DENTAL SERVICE TECHNICIAN HOME VISIT Social History Tobacco Use Types [...] Sign Reading Time Taken Comments Blood Pressure 105/74 06/16/2024 8:56 AM EST Pulse - - Temperature - - Respiratory Rate 20 06/16/2024 8:56 AM EST Oxygen Saturation - - Inhaled Oxygen Concentration - - Weight - - Height - - Body Mass Index - - documented in this encounter Plan of Treatment Upcoming Encounters Date Type Department Care Team (Late st Contact Info) Description 07/15/2024 1:30 AM EST Home Care Visit [facility] [address] [place], [place] [phone] Unscheduled, [facility] [address] [place] [address] 07/18/2024 Home Care Visit [facility] [address] [place], [place] [phone] Tala Alvarez RN [address] [place] [address] [email or web address] 07/21/2024 Appointment [facility] [address] [place], [place] [phone] Tala Alvarez RN [address] [place] [address] [email or web address] documented as of this encounter Visit Diagnoses Not on filedocumented in this encounter Home Health Visit - Care Plan Visit Details Visit Type -DENTAL SERVICE TECHNICIAN HOME VISIT Discipline -Intermediate Problems Problem Description Start Date Status Goals [...] HH - Medication Management No HH - Patient preferences will be [...] no pain. HH - Pain Progressing No Interventions Intervention Associated Problem/Goal Status [...] reconciliation as indicated. Pharmacy information: [facility] Problem:HH - Medication Management Goal:HH - Safe medication management, avoid unnecessary harm related to medication errors and/or interactions Completed HH - Focus of care, teaching completed and plan for next visit Problem:HH - Focus of Care and Teaching Goal:HH - Communication and collaboration to achieve patient goals Completed Primary Clinical Focus this Visit & Instruction Provided: Pt seen for routine assessment and ostomy care. VSS, afebrile, pt is A & O x 4. Ostomy appliance changed, pt particiated minimally. Supplies ordered conf # [id number]. I/E on proper nutrition and emptying her ostomy pouch frequently. No questions at conclusion of visit, pt aware to call the [facility]NA with any questions or concerns. Instruction Provided to: patient Response to Instruction/Teachin g: Is fully able to teach back topics as evidenced by conversation. Plan for Next Visit Specific Focus & Education Needed: ostomy care New Orders: None Updated Discharge Plan: d/c once independent or plan in place for ostomy care HH - I/E management of care in [...] Completed documented in this encounter Care Teams Transit Proof Machine Operator Relationship Specialty Start Date End Date Pcp, Unknown PCP - General 02/23/23 documented as of this encounter Additional Source Comments The information contained in this document represents components of the legal health record. It is not the complete legal health record.[facility]
--- OUTSIDE RECORDS SUMMARY | 2024-07-14 12:07 | XMS_ITS | Encounter Summary ---
Author Organization [facility] Address [phone] [place] [address] Care Team Providers Care Drying Can Worker Name Role Phone Pcp, Unknown Primary Care Provider Unavailabl e Reason for Visit * Auth/Cert (Routine) Specialty Diagnoses / Procedures Referred By Contac t Referred To Contact Referral ID Status Reason Start Date Expiration Date Visits Re quested Visits Authorized [id number] 1 1 Encounter Details Date Type Department Care Team (Late st Contact Info) Description 07/07/2024 8:15 AM EST Home Care Visit [facility] [address] [place] [phone] Tala Alvarez, RN [address] [place] [address] [email or web address] SN HOME VISIT Social History Tobacco Use [...] Sign Reading Time Taken Comments Blood Pressure 108/78 07/07/2024 9:05 AM EST Pulse 98 07/07/2024 9:05 AM EST Temperature 36.4 ??C (97.6 ??F) 07/07/2024 9:05 AM ES T Respiratory Rate 16 07/07/2024 9:05 AM EST Oxygen Saturation 97% 07/07/2024 9:05 AM EST Inhaled Oxygen Concentration - - Weight 54 kg (119 lb) 07/07/2024 9:05 AM EST Height - - Body Mass Index - - documented in this encounter Plan of Treatment Upcoming Encounters Date Type Department Care Team (Late st Contact Info) Description 07/15/2024 1:30 AM EST Home Care Visit [facility] [address] [place], [place] [phone] Unscheduled, [facility] [address] [place] [address] 07/18/2024 Home Care Visit [facility] [address] [place], [place] [phone] Tala Alvarez RN [address] [place] [address] [email or web address] 07/21/2024 Appointment [facility] [address] [place], [place] [phone] Tala Alvarez RN [address] [place] [address] [email or web address] documented as of this encounter Visit Diagnoses Not on filedocumented in this encounter Home Health Visit - Care Plan Visit Details Visit Type -SN HOME VISIT Discipline -Prison Problems Problem Description Start Date Status Goals [...] this visit HH - Ostomy Management Disciplines: Prison 11/27/2023 Active 1 goal linked to scheduled/document [...] knowledge of complications HH - Ostomy Management Not Progressing No Interventions Intervention Associated Problem/Goal Status [...] medication reconciliation as indicated. 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 Primidone dose was increased to 3xweek without any improvement. Ileostomy care rovided. Pt continues to present with tremors that limit her ability to perfrom this task. Caregiver not willing/able to assist. Tolerated appliance change well. No skin breakdown noted despite fecal leakage to peristomal. Instruction Provided to: patient Response to Instruction/Ailynin g: Is partially able to teach back topics as evidenced by verbalizes understanding. Plan for Next Visit Specific Focus & Education Needed: ileostomy care New Orders: no Updated Discharge Plan: no change - I/E management of care in an [...] Completed documented in this encounter Care Teams Drying Can Worker Relationship Specialty Start Date End Date Pcp, Unknown PCP - General 02/23/23 documented as of this encounter Additional Source Comments The information contained in this document represents components of the legal health record. It is not the complete legal health record.[facility]
--- OUTSIDE RECORDS SUMMARY | 2024-07-14 12:07 | XMS_ITS | Encounter Summary ---
Author Organization [facility] Address [phone] [place] [address] Care Team Providers Care Registered Sales Assistant Name Role Phone Pcp, Unknown Primary Care Provider Unavailabl e Reason for Visit * Auth/Cert (Routine) Specialty Diagnoses / Procedures Referred By Contac t Referred To Contact Referral ID Status Reason Start Date Expiration Date Visits Re quested Visits Authorized [id number] 1 1 Encounter Details Date Type Department Care Team (Late st Contact Info) Description 06/23/2024 1:00 AM EST Home Care Visit [facility] [address] [place] [phone] Olga Finley LPN [address] [place] [address] [email or web address] FOSTER PARENT HOME VISIT Social History Tobacco Use Types [...] Sign Reading Time Taken Comments Blood Pressure 110/58 06/23/2024 10:15 AM EST Pulse 70 06/23/2024 10:15 AM EST Temperature 36.3 ??C (97.4 ??F) 06/23/2024 10:[address] Respiratory Rate 20 06/23/2024 10:15 AM EST Oxygen Saturation 98% 06/23/2024 10:15 AM EST Inhaled Oxygen Concentration - - Weight - - Height - - Body Mass Index - - documented in this encounter Plan of Treatment Upcoming Encounters Date Type Department Care Team (Late st Contact Info) Description 07/15/2024 1:30 AM EST Home Care Visit [facility] [address] [place] [phone] Unscheduled, [facility] [address] [place] [address] 07/18/2024 Home Care Visit [facility] [address] [place] [phone] Tala Alvarez RN [address] [place] [address] [email or web address] 07/21/2024 Appointment [facility] [address] [place] [phone] Tala Alvarez RN [address] [place] [address] [email or web address] documented as of this encounter Visit Diagnoses Not on filedocumented in this encounter Home Health Visit - Care Plan Visit Details Visit Type -[facility] PARENT HOME VISIT Discipline -[facility] Problems Problem Description Start Date Status Goals [...] this visit HH - Ostomy Management Disciplines: Mcfp 11/27/2023 Active 1 goal linked to scheduled/document ed intervention Goals Goal Associated Problem Outcome Goal Met? Visit Notes HH - Safe medication management, avoid unnecessary harm related to medication errors and/or interactions HH - Medication Management Progressing No HH - Communication and collaboration [...] Focus this Visit & Instruction Provided: Pt VSS. Focus of visit colostomy care. Pt acknowledges diet adjustment is assisting her in leakage prevention as well as more frequent emptying of appliance. Stoma healthy mosit red and peristomal skin is CDI w/o irritation. Applied one-piece appliance w/reinforce ment at 3oclock using extra poece of ekin ring. Instruction Provided to: pt/cg Response to Instruction/Teaching : verbal teach back and actively asst w/ ostomy appliance change as is able Plan for Next Visit Specific Focus & Education Needed: ostomy care and assessment New Orders: na Updated Discharge Plan: dc snv when goals met HH - I/E management of care in [...] Completed documented in this encounter Care Teams Registered Sales Assistant Relationship Specialty Start Date End Date Pcp, Unknown PCP - General 02/23/23 documented as of this encounter Additional Source Comments The information contained in this document represents components of the legal health record. It is not the complete legal health record.[facility]
--- OUTSIDE RECORDS SUMMARY | 2024-07-14 12:07 | XMS_ITS | Encounter Summary ---
Author Organization [facility] Address [phone] [facility] [place] [address] [place] [address] Care Team Providers Care Pressing Machine Operator Name Role Phone Pcp, Unknown Primary Care Provider Unavailabl e Reason for Visit * Auth/Cert (Routine) Specialty Diagnoses / Procedures Referred By Contac t Referred To Contact Referral ID Status Reason Start Date Expiration Date Visits Re quested Visits Authorized [id number] 1 1 Encounter Details Date Type Department Care Team (Late st Contact Info) Description 06/20/2024 8:45 AM EST [facility] [address] [place] [phone] Eri Chambers LPN [email or web address] CLOTHING SORTER HOME VISIT Social History Tobacco Use Types [...] Reading Time Taken Comments Blood Pressure 116/70 06/20/2024 8:40 AM EST Pulse 88 06/20/2024 8:40 AM EST Temperature 36.8 ??C (98.3 ??F) 06/20/2024 8:40 AM ES T Respiratory Rate - - Oxygen Saturation 99% 06/20/2024 8:40 AM EST Inhaled Oxygen Concentration - - Weight - - Height - - Body Mass Index - - documented in this encounter Plan of Treatment Upcoming Encounters Date Type Department Care Team (Late st Contact Info) Description 07/15/2024 1:30 AM EST Home [facility] Visit [facility] [address] [place], [place] [phone] Unscheduled, [facility] [address] [place] [address] 07/18/2024 Home Care Visit [facility] [address] [place], [place] [phone] Tala Alvarez RN [address] [place] [address] [email or web address] 07/21/2024 Appointment [facility] [address] [place], [place] [phone] Tala Alvarez RN [address] [place] [address] [email or web address] documented as of this encounter Visit Diagnoses Not on filedocumented in this encounter Home Health Visit - Care Plan Visit Details Visit Type -CL[facility]TER HOME VISIT Discipline -Shelter Problems Problem Description Start Date Status Goals [...] Planning - Knowledge of No HH - Knowledge and management [...] assessment and ostomy care. VSS, afebrile, pt reports visit yesterday to ED for pelvic pain,, pain 3-4/10 today. Unclear if eval at ED able to determine source of pain. Pt reports I have a torn pelvic muscle . Pt is going to have lower extremity EMG today with her neurologist. Ostomy care performed with no complications. Discussed emptying bag frequently as that has seemed beneficial for recent issues w/ leaking. No questions at conclusion of visit, pt [...] Completed documented in this encounter Care Teams Pressing Machine Operator Relationship Specialty Start Date End Date Pcp, Unknown PCP - General 02/23/23 documented as of this encounter Additional Source Comments The information contained in this document represents components of the legal health record. It is not the complete legal health record.[facility]
[2024-07-14 12:10] VITALS: BP 118/68; PULSE 136; BMI 19.8
== END 2024-07-14 12:10 | disposition home or self-care (01) ==
PROVIDERS: PCP Internal Medicine; Visit Provider Nurse Practitioner Family
DX: M62.89 Other specified disorders of muscle (principal); M54.16 Radiculopathy, lumbar region; M47.817 Spondylosis without myelopathy or radiculopathy, lumbosacral region; N30.10 Interstitial cystitis (chronic) without hematuria; R39.89 Other symptoms and signs involving the genitourinary system; Z96.82 Presence of neurostimulator
CPT/HCPCS: 99214; G2211

== ENCOUNTER → 2024-07-14 11:19 | Outpatient (BNVA) | payer OTHER, SELFPAY | PROVIDERS: PCP Internal Medicine; Visit Provider Nurse Practitioner Family | DX: M62.89 Other specified disorders of muscle (principal); M54.16 Radiculopathy, lumbar region; M47.817 Spondylosis without myelopathy or radiculopathy, lumbosacral region; N30.10 Interstitial cystitis (chronic) without hematuria; R39.89 Other symptoms and signs involving the genitourinary system; Z96.82 Presence of neurostimulator; Z79.891 Long term (current) use of opiate analgesic | CPT/HCPCS: 99212 ==

== ENCOUNTER 2024-08-07 13:52 | Outpatient (AMB) | payer OTHER, SELFPAY ==
--- NOTE | 2024-08-07 14:04 | MHC.OFFVIS ---
Vital Signs 08/07/24 14:10 Height 5 ft 5 in Weight 125 lb BMI 20.8 BP 134/69 Blood Pressure Location Lt brachial Position Sitting Pulse 133 H Pulse Source Pulse Oximeter Pulse Oximetry (%) 97 Oxygen Delivery Method Room Air Intake Visit Reasons: not candidate opioid program/discussion of inj Intake Note: Pain today 07/24 Therapist'S Assistant Required: No Accompanied by: Spouse Allergies amoxicillin [From AUGMENTIN] Allergy (Severe, Verified 08/07/24 14:12) SEVERE DIARRHEA Aophzsn-SDY-EcC Reductase Inhibitor [WIPPPAS-LPM-HXB REDUCTASE INHIBITOR] Allergy (Intermediate, Verified 08/07/24 14:12) muscle aches, cramps acetaminophen [ACETAMINOPHEN] Adverse Reaction (Severe, Verified 08/07/24 14:12) GI upset. Pt confirmed NOT allergic to oxycodone NSAIDS (Non-Steroidal Anti-Inflamma Adverse Reaction (Severe, Verified 08/07/24 14:12) Gastrointestinal Upset HPI Comments Details: Patient presents today for follow up to discuss interventional treatments for chronic back pain and pelvic pain related to interstitial cystitis. However, patient and her spouse are here to discuss opioid program again after patient was told she is not candidate for opioids through our office as her recent UDS showed no oxycodone or its metabolites in her system. Patient reports she is in chronic daily pain and has to take oxycodone on regular and daily basis. She notes that current opioid dosage through Urology office does not alleviate all of her pain but does allow her to be less symptomatic and more functional. EMR chart review revealed that patient is in the progress for Interstim Revision with pending insurance approval. We have discussed neuromodulation with SCS and ITDD trial and implant in greater detail today. Patient is interested in ITDD trial in the future but concerned for being off opioids for 24-48 hours prior to ITDD trial and 60 days prior to ITDD implant. Patient would like to follow up with Urology on progress of PA status for Interstim revision as initial steps. Denies any recent cough, cold, infection, fever or any other significant changes in medical history since last office visit. PRIOR: Patient presents today for follow up for chronic low back and pelvic pain and potential entrance to our opioid program. Patient reports recent ER visit on 07/08/24 for flare up in her back pain. She has pending lumbar spine MRI however she not eligible to undergo MRI due to Interstim bladder stimulator in place, not utilized by patient for over decade. She will follow up with Urology office to facilitate removal of bladder stimulator. Patient continues to receive oxycodone through Urology at this time and has continued need to continue palliative chronic opioid prescribing. [facility] was reviewed and is consistent with her history. Patient is aware that this office can not prescribe until the UDS is reviewed and contracts are signed. Denies any recent cough, cold, infection, fever or any other significant changes in medical history since last office visit. PRIOR: Patient is a 59 years old female with history of chronic abdominal and pelvic pain, anxiety and depression, chronic back pain and previous back surgery in 2018, interstitial cystitis, ulcerative colitis, colostomy (11/2023), presents today for initial evaluation for pelvic and low back pain. Denies any recent trauma, injury or falls. She has extensive history of pelvic and bladder pain and is undergoing cystoscopy and hydrodistention every 3 months for over 10 years. Patient also tried and failed multiple medication therapy, including opioids (morphine, tramadol, oxycodone), baclofen, soma, vaginal Valium, gabapentin, Belladonna supp, and Interstim sacral stimulator. She reports sacral stimulator is in place but inactive for about 12-13 years. She is not sure if she can locate the device remote and has not been in contact with Intersti credit representative for device check or reprograming. Back pain is axial and also radiates into both lower extremities posteriorly with numbness, tingling and intermittent weakness. She was seeing Neurologist for this and is scheduled for EMG study on 06/20/[address] Lopez. She reports chronic pelvic pain, left side worse than the right and has concerns for torn pelvic muscle. Patient is currently undergoing Pelvic floor PT at home via [facility] and finds this slightly beneficial. She reports oxycodone 5 mg has been beneficial and when taking it TID prn, it will manages her pain. Pain affects her daily activities and functioning, sleep, mood, social interactions and quality of life. Denies any fever or chills, bladder or bowel incontinence or saddle anesthesia. Location: Pelvic area left>right, low back pain radiates into lower extremities Duration: Chronic pain due to IC, overactive bladder spasms, back pain Characteristics of symptom or complaint: Aching, stabbing, aching, shooting, jumping, sharp, radiating Aggravating or associated factors: ADLs, movements, sitting, standing, walking, ROM, sleep Relieving factors: Tramadol, morphine, Valium vaginal supp, Belladona supp, oxycodone Treatment: Pelvic PT, hydrodistention [id number], Interstim-not used for >10 years [facility] Medical History Sacral nerve stimulator present Colostomy in place On beta morgan at home Anxiety SVT (supraventricular tachycardia) Depression Back pain History of gastrostomy tube placement Hx of ulcerative colitis Hx of cystitis History of anxiety Asthma Elevated cholesterol Surgical History History of tubal ligation History of endometrial ablation History of bladder surgery Social History Household Members: Significant Other Housing: Apartment Are you a primary client care manager to a significant other at home: No Do you presently have visiting nurse or other home services: No 75 years or older and lives alone: No Alcohol intake: former Patient Tobacco Use Status: Current everyday Tobacco user Tobacco use type: Cigarette Cigarettes Per Day: 4 Years Smoked: 22 Current occupational status: disabled Review of Systems Const All systems reviewed & are unremarkable except as noted in HPI and below Physical Exam Vital Signs: Last Vital Signs Pulse 133 H 08/07/24 14:10 BP 134/69 08/07/24 14:10 Pulse Ox 97 08/07/24 14:10 Oxygen Delivery Method Room Air 08/07/24 14:10 BMI result Body Mass Index 20.8 General: Appears afebrile. Alert and oriented. Anxious. Clear speech. Mood and affect appropriate. Mild tremors both hands. Follows and participates in conversation appropriately. Respiratory effort is unlabored. No cough. No respiratory distress. Able to transition from sit to stand unassisted. Uses walker with ambulation. Ambulates with bilaterally normal heel strike and toe off. Mildly antalgic gait. Back/Spine/Pelvis Cervical Spine: cervical muscular tenderness, pain with cervical ROM and No Cervical spine tenderness Thoracic/Lumbar Spine: thoracic and lumbar spine normal to inspection, Thoracic/lumbar spine scar(s), Lasegue's sign negative, straight leg raise negative bilaterally, pain with thoraco-lumbar ROM, paraspinal muscle tenderness, thoraco-lumbar ROM limited, No thoracic spinal tenderness and lumbar spinal tenderness (L3-S1) Pelvis: buttock tenderness bilaterally Sacroiliac joints: bilaterally tender to palpation Results Reviewed Results Reviewed: XR LUMBOSACRAL SPINE 04/20/24 CLINICAL INFORMATION: Low back pain. COMPARISON: None available. TECHNIQUE: Three views of the lumbosacral spine. FINDINGS: Osteopenia versus osteoporosis. Superior endplate compression deformity at T12 representing 40% volume loss. No gross retropulsion. Stimulator device electrode leads overlaps the right S3. Sclerosis in the sacroiliac joints bilaterally. Spina bifida occulta S1. Multilevel thoracolumbar spondylosis. Vascular calcifications. IMPRESSION: Subacute to old compression deformity at T12. Multilevel lumbar spondylosis. If patient's symptoms persist recommend CT. CT abdomen pelvis w IV con 12/19/23 IMPRESSION: 1. No evidence of small bowel obstruction. Small amount of fluid surrounding small bowel loops in the left lower quadrant. 2. Status post cholecystectomy with mild prominence of CBD and intrahepatic ducts. 3. Right renal cyst. 4. Postsurgical changes in the mid abdomen with parastomal hernia. 5. Compression deformity of T12 vertebral body. Assessment & Plan Assessment & Plan (1) Pelvic floor dysfunction in female: Code(s): M62.89 - Other specified disorders of muscle Category: Medical (2) Lumbar radiculopathy: Code(s): M54.16 - Radiculopathy, lumbar region Category: Medical (3) Lumbosacral spondylosis: Code(s): M47.817 - Spondylosis without myelopathy or radiculopathy, lumbosacral region Category: Medical (4) Interstitial cystitis: Code(s): N30.10 - Interstitial cystitis (chronic) without hematuria Category: Medical (5) Bladder pain: Code(s): R39.89 - Other symptoms and signs involving the genitourinary system Category: Medical (6) Sacral nerve stimulator present: Code(s): Z96.82 - Presence of neurostimulator Category: Medical Plan Previously discussed and reviewed today interventional treatments for chronic pelvic pain and low back pain with radiculopathy. For chronic pelvic pain, we reviewed diagnostic nerve blocks such as fluoroscopy guided transgluteal, ganglion Impar, hypogastric plexus and L2 lumbar sympathetic blocks. For chronic low back pain with radiculopathy and recent flare up in back pain, patient has pending lumbar spine MRI. Unfortunately, MRI is not compatible with patient's inactive Interstime bladder stimulator in place. She has pending Interstim Revision through Urology providers which will be MRI compatible per patient. We also reviewed neuromodulation in a greater length today for both chronic back and pelvic pain with SCS and ITDD trial vs implant. Patient is interested in a longer term pain management treatments but is hesitant to injections due to history of multiple cortisone injections, including in her back with minimal benefit. Patient reports oxycodone allows her to be less symptomatic and more functional. Unfortunately her recent UDS showed no oxycodone or its metabolites, therefore patient is not candidate for opioid prescribing through our program. She is concerned for holding off opioids for 60 days for potential ITDD implant if she has good response to ITDD trial in the future. Patient is aware that prior to neuromodulation trials, she would need to undergo Behavioral evaluation clearance. All questions were answered and she is agreeable to the plan. Patient will follow up with us after Interstim revision as needed. Coding Level of Care Code Est Pt Level 3 (62108) Complex EM visit Add On G2211 Diagnoses Pelvic floor dysfunction in female M62.89 Lumbar radiculopathy M54.16 Lumbosacral spondylosis M47.817 Interstitial cystitis N30.10 Bladder pain R39.89 Sacral nerve stimulator present Z96.82
[2024-08-07 14:10] VITALS: BP 134/69; PULSE 133; O2SAT 97; BMI 20.8
--- OUTSIDE RECORDS SUMMARY | 2024-08-07 15:51 | XMS_ITS | Data Portability ---
Author Organization [employer] Address [address] [place] [address] Care Team Providers Care Director Of Manufacturing Name Role Phone ELVI LAWANDA ADULT MEDICINE Referring Provider HIM [facility] OTHER Assessment Encounter Date Assessment Date Assessment LastModified by Organization Details LastModified Time 07/30/2023 07/30/2023 I provided real -time medical direction via phone for this encounter, and was available for additional phone based assistance as needed. I have reviewed and agree with the Assessment and Plan as documented by the Neon Tube Bender. Patient given the opportunity to ask questions. As per above, service called for bladder pain and found this 58 riki with chronic interstitial cystitis c/b suprapubic pain. C/o 4d suprapubic sharp pain that is throbbing, knife-like and c/w prior episodes. She is soon to have hydroextension procedure. Last ketorlac > 1 wk prior. Regular PO food and fluid intake. Per holder pile driving on the scene, VSS and she is [...] assessment and plan as documented by the holder pile driving and would add/emphasize: Patient seen for acute [...] ketorolac 30 mg/mL injection solution 2023 024 [email or web address] [facility], [address] [place], [address], 4 19:46:11 ondansetr on HCl (PF) 4 mg/2 mL injection solution 2023 024 [facility], [address] [place], [address], 4 18:50:03 ketorolac 30 mg/mL injection solution 2023 024 [facility], [address] [place], [address], 4 18:50:03 Zofran 4 mg tablet 2023 024 [email or web address] [facility], [address] [place], [address], 4 21:22:51 ketorolac 30 mg/mL injection solution 2023 024 [email or web address] [facility], [address] [place], [address], 4 21:23:56 ketorolac 30 mg/mL injection solution [address] [facility], [address] [facility], [place], [address], 4 22:56:59 Patient TargetsNo targets recorded. Patient InstructionsNo instructions [...] n nausea Not available Not available 08/12/2022 53497 3 RxNorm Lula Camacho MD [address] [place] [address],[address], [place], [address], [employer] 3 16:51:49 1995 Augmentin medicatio n Not available Not available Not available 08/12/2022 25642 2 RxNorm got mouth sores Lula Camacho MD [address] [place] [address],[address], [place], [address], [employer] 3 16:52:05 1996 acetamino phen medicatio n Not available Not available Not available 08/12/2022 161 RxNorm Not Available [facility] - production 4 03:45:01 1997 simvastat in medicatio n Not available Not available Not available 08/12/2022 26610 RxNorm Lula Camacho MD [address] [place] [address],[address], [place], [address], [employer] 3 16:52:28 Medications Name Sig Start Date [...] Details Last Updated DateTime 4 98.4 [degF] 16387.5 12 g 98 % 98 % 18 /min 90 /min 104 mm[Hg] 64 mm[Hg] Not Available [employer] 4 21:02:10 Date Recorded Respiratory rate Body weight Oxygen saturation Oxygen saturation in Arterial blood by Pulse oximetry Body temperature Body height Heart rate Systolic blood pressure Diastolic blood pressure Systolic blood pressure Diastolic blood pressure Provider Name and Address Organization Details Last Updated DateTime 4 14 /min 58862.9 6 g 76 % 76 % 98.5 [degF] 165.1 cm 74 /min 98 mm[Hg] 64 mm[Hg] 95 mm[Hg] 56 mm[Hg] Not Available [employer] 4 20:24:53 Date Recorded Oxygen saturation Oxygen saturation in Arterial blood by Pulse oximetry Respiratory rate Heart rate Body temperature Systolic blood pressure Diastolic blood pressure Provider Name and Address Organization Details Last Updated DateTime 4 97 % 97 % 16 /min 80 /min 98.1 [degF] 110 mm[Hg] 64 mm[Hg] Not Available [employer] 4 19:12:03 Date Recorded Body temperature Respiratory rate Oxygen saturation Oxygen saturation in Arterial blood by Pulse oximetry Heart rate Systolic blood pressure Diastolic blood pressure Provider Name and Address Organization Details Last Updated DateTime 4 98.4 [degF] 16 /min 98 % 98 % 86 /min 100 mm[Hg] 68 mm[Hg] Not Available [employer] 4 16:25:08 Date Recorded Respiratory rate Heart rate Oxygen saturation Oxygen saturation in Arterial blood by Pulse oximetry Body temperature Systolic blood pressure Diastolic blood pressure Provider Name and Address Organization Details Last Updated DateTime 4 16 /min 88 /min 96 % 96 % 96 [degF] 97 mm[Hg] 63 mm[Hg] Not Available [employer] 4 17:24:48 Social History None recorded. Functional [...] 4542 Tha Pierson MD Main - [facility] [address] [place] [phone] 03/24/2022 17:56:02 04/01/2022 18:48:22 Abdominal pain 95441078 R10.9 4587 Amaury Kent MD Main - [facility] [address] [place] [phone] 03/26/2022 17:40:48 03/30/2022 12:00:01 Abdominal pain 92051650 R10.9 No red flag signs or kidney problems. Will give Toradol 15mg IM x1 [id number] Jordan Chapman MD Main - [facility] [address] [place] [phone] 04/02/2022 17:07:08 04/03/2022 15:18:36 Urinary bladder pain 25582353 R39.82 Patient with exacerbati on of chronic abdominal pain which is attributed to interstiti al cystitis. She is planned for a surgical procedure for this soon. She got relief from toradol at a recent [facility] visit for same symptoms. No history of GI bleeding or chronic kidney disease.Rx toradol IM 15mg x1 [id number] Nelly Pérez MD Main - [facility] [address] [place] [phone] 04/08/2022 14:02:49 04/14/2022 16:18:59 Chronic interstitial cystitis [id number] N30.10 57 year old female, being evaluated for chronic bladder pain. Per data gathered by holder pile driving, patient with chronic bladder pain without dysuria, scheduled for a surgical procedure next week. Her symptoms are at baseline, and she is tolerating PO. Her exam is notable for normal vital signs. Cannot take PO NSAIDS, however recalls IM toradol helpful in the past - dose given again today. FU PCP as needed. 5214 [facility] [address] [place] [phone] 04/22/2022 17:19:46 04/23/2022 11:41:13 Pain in right foot [id number] 59489 M79.671 57 year old female being evaluated [...] 5464 Kylee Hill MD Main - [facility] [address] [place] [phone] 05/03/2022 16:25:00 05/05/2022 09:08:24 Pain in left foot [id number] 06076 M79.672 57 yo F w/ known metatarsal [...] 8142 Lula Camacho MD Main - [facility] [address] [place] [phone] 08/12/2022 15:46:28 08/14/2022 09:39:18 Candidiasis of skin 78546065 B37.2 likely cause of rash Increased frequency of urination 727371508 R35.0 PAT NOT clinically dehydrated -not hyperglyce opal -states has hx non infectious cystitis- has appt w/ urology 09/07- requesting ketorolac for pain- has no hx CKD/ has tolerated 30 mg IM before( previous [facility] visits)- get GI upset w/ nsaids not true allergy- UA dip neg- no signs of infection/ no culture sent- advised to call pcp tomorrow to d/w them pain management and to call uro to see if they can move up appt. Advised if gets fever/ severe abd or back pain/vomit ing to go to the ER 8250 Derik Bingham MD Main - [facility] [address] [place] [phone] 08/17/2022 11:11:00 08/19/2022 09:27:13 Chronic interstitial cystitis 473328925 N30.10 Localized eruption of skin 998999286 R21 8622 Kylee Hill MD Main - [facility] [address] [place] [phone] 08/28/2022 22:03:08 08/31/2022 11:13:17 Chronic interstitial cystitis 340774968 N30.10 long standing diagnosis c/b chronic pain. Recieves toradol occasional ly with good effect. No fevers/chi lls/hematu sofi. Will administer 30mg toradol, but advised pt to discuss timing of additional NSAIDs with surgical team as she is planned for surgery in 10d. will also prescribe 4d zofran for intermitte nt chornic nausea associated to chronic cystitis. Qtc<500. Of note, prescripti on called into [facility] over the phone / EMR malnctio n 9933 Angie Amador MD Main - [facility] [address] [place] [phone] 10/11/2022 16:10:03 10/12/2022 10:16:13 Abdominal pain 73164588 R10.9 Chronic low back pain 27 0394317 M54.50 Pain 16758208 R52 [id number] Derik Bingham MD Main - [facility] [address] [place] [phone] 0 10/16/2022 17:37:00 10/19/2022 09:55:32 Right upper quadrant pain 060720018 R10.11 [id number] Jareth David MD Main - [facility] [address] [place] [phone] 10/29/2022 17:40:14 10/30/2022 08:56:05 Generalized abdominal pain 139123228 R10.84 This 57-year-ol d female had a [...] PCP. The patient agreed with this plan. [id number] Amaury Kent MD Main - [facility] [address] [place] [phone] 10/31/2022 15:42:54 11/03/2022 13:02:01 Generalized abdominal pain 338345458 R10.84 Generalize d abdominal pain similar to prior episodes. Mild nausea and sxs of dehydratio n, poor fluid intake. Had normal BMP on prior visit. Tolerated IVF, Zofran, Toradol in the past. No red flag signs. Will reorder. [id number] Leander Rosa MD Main - [facility] [address] [place] [phone] 11/04/2022 14:24:04 11/06/2022 13:41:01 Abdominal pain 33804156 R10.9 [id number] Kylee Hill MD Main - [facility] [address] [place] [phone] 11/15/2022 15:34:46 11/25/2022 10:16:27 Chronic interstitial cystitis 636943955 N30.10 case supervised and discussed with holder pile driving. Patient was given opportunit y to ask questions, warning signs/symp toms of pertinent medical emergency reviewed. long standing diagnosis c/b chronic pain. Recieves toradol occasional ly with good effect. No fevers/chi lls/hematu sofi. Will administer 30mg toradol [id number] Latosha Pressley MD Main - [facility] [address] [place] [phone] 11/23/2022 20:46:17 11/24/2022 10:07:44 Chronic interstitial cystitis 697935982 N30.10 [id number] Amaury Kent MD Main - [facility] [address] [place] [address] [phone] 0 11/28/2022 16:57:59 11/28/2022 23:15:41 Chronic interstitial cystitis 513810392 N30.10 Has upcoming cystocscop y, amenable to 30mg IM Toradol now Pain 12856096 R52 [id number] Jareth David MD Main - [facility] [address] [place] [phone] 12/13/2022 16:50:19 12/14/2022 10:41:58 Essential tremor 072523213 G25.0 This 57-year-ol d female with a history of ulcerative colitis and a resting tremor called [facility] because she thought she might be dehydrated . At the visit her hydration status looked good and her oral intake was adequate. She was advised to follow-up with her PCP. The patient agreed with this plan. [id number] Lula Camacho MD Main - [facility] [address] [place] [phone] 02/22/2023 18:33:03 02/23/2023 08:59:17 Abdominal pain 02682599 R10.9 Agree flare of interstiti al cystitis/p atevans has appointmen t to talk to her urologist in 48 hours/but not in person-adv ised since she has not had ketorolac in a while and her H & H are stable-we will give her a dose, however I advised she could develop a reaction to parenteral ketorolac similar to ibuprofen- she verbalized understand ing Hypokalemia 15409459 E87 .6 Unsure of etiology since the [...] and tomorrow - she verbalized she would [id number] Lula Camacho MD Main - [facility] [address] [place] [phone] 0 02/24/2023 11:00:53 02/24/2023 12:04:06 Hypokalemia 32737169 E87.6 Unsure of etiology since the patient denies nausea/ vomiting /diarrhea or excessive urine output/ now resolved with po K//lactate is slightly high but these new machines have been reading mildly high on everyone I have taken care of in the past week-doubt significan t given stable exam and vital signs and the fact that she is afebrile. [id number] Amaury Kent MD Main - [facility] [address] [place] [phone] 0 04/15/2023 15:37:09 04/16/2023 12:56:31 Abdominal pain 01977217 R10.9 Acute on chronic. Normal vital signs. No red flag signs or kidney problems. Will give Toradol 30mg IM x1. Discussed red flag signs for which to seek higher level of care. [id number] Sofiya Frye MD Main - [facility] [address] [place] [phone] 0 04/27/2023 21:55:53 04/28/2023 10:39:48 Chronic pain 82892174 G89.29 [id number] Corrie Pryor MD Main - [facility] [address] [place] [address]8746[address] 0 05/01/2023 12:37:10 05/02/2023 15:48:01 Chronic interstitial cystitis 087902430 N30.10 Evaluation in the field was performed by my holder pile driving colleague, as noted above, I provided real-time [...] shortness of breath, cough, chest pain, fever. [id number] Nelly Pérez MD Main - [facility] [address] [place] [phone] 0 05/10/2023 15:45:31 05/10/2023 22:56:22 Abdominal pain 54434450 R10.9 58 year old female with a [...] assessment and plan as documented by the holder pile driving. I provided real-time medical direction for this encounter and was immediatel y available to provide additional phone-base d assistance as needed. We discussed the diagnostic uncertaint y of home visits and associated risks. We discussed the need to seek care urgently/e mergently in the setting of any new or worsening symptoms. [id number] Jareth David MD Main - [facility] [address] [place] [address] [phone] 0 05/18/2023 14:57:58 05/19/2023 10:20:02 Irritable bowel syndrome 82616459 K58.9 This 58-year-ol d female with recurrent GI pain likely due to IBS called today because of pain since this AM. She doesn't tolerate oral pain medication s due to GERD, but she has responded to Toradol in the past. I ordered Toradol 30 mg IM. She will follow-up with her PCP. The patient agreed with this plan. 10201 Kellie Woods MD Main - [facility] [address] [place] [phone] 0 05/21/2023 12:59:15 05/24/2023 16:53:56 Urinary symptoms 231017006 R39.9 Abdominal pain 20551331 R10.9 12687 NO MATHIS MD Main - [facility] [address] [place] [address] [phone] 0 06/06/2023 11:39:22 06/08/2023 10:04:30 Abdominal pain 46712568 R10.9 Evaluation in the field was performed by my holder pile driving colleague, as noted above, I provided real-time [...] N/V. Last BM this morning and normal. Belton Sign negative that makes intraperit baxter inflammati on less likely. Psoas and Obturator signs negative .Pt not on anticoagul ation Impression :Acute on chronic abdominal pain Plan:Ketor olac 15 mg IM [id number] to call her GI doctor on Wednesday [...] concerns Latosha Pressley MD Main - [facility] [address] [place] [address] [phone] 0 07/27/2023 17:32:53 07/27/2023 21:48:46 Chronic interstitial cystitis 483256751 N30.10 Sofiya Frye MD Main - [facility] [address] [place] [address] [phone] 0 07/30/2023 21:02:08 07/31/2023 12:36:08 Spasm of urinary bladder 230457929 N32.89 [id number] Duong Panchal MD Main - [facility] [address] [place] [address]17[address] 0 08/24/2023 20:24:52 08/25/2023 11:16:42 Ulcerative colitis 85009661 K51.90 Patient reports a history of ulcerative colitis followed by GI. She reports that she has abdominal pain consistent with her typical chronic abdominal pain. Denies any new complaints . Reports a recent colonoscop y. No hematochez ia or melena. Requesting ketorolac as that typically resolves her symptoms. Denies any other complaints or concerns. [id number] Nelly Pérez MD Main - [facility] [address] [place] [phone] 0 10/11/2023 19:12:01 10/11/2023 22:15:10 Chronic interstitial cystitis 656602337 N30.10 57 year old female, being evaluated for acute on chronic bladder pain. Per data gathered by holder pile driving, patient with chronic bladder pain without dysuria, [...] assessment and plan as documented by the holder pile driving. I provided real-time medical direction for this encounter and was immediatel y available to provide additional phone-base d assistance as needed. We discussed the diagnostic uncertaint y of home visits and associated risks. We discussed the need to seek care urgently/e mergently in the setting of any new or worsening symptoms. [id number] Tha Pierson MD Main - [facility] [address] [place] [address] [phone] 0 01/23/2024 16:25:05 01/24/2024 10:37:03 Abdominal pain 36068096 R10.9 14530 eNlly Pérez MD Main - [facility] [address] [place] [address] [phone] 0 04/18/2024 17:24:45 04/18/2024 22:03:45 Headache 12129985 R51.9 59 year old female being evaluated [...] assessment and plan as documented by the holder pile driving. I provided real-time medical direction for this [...] Babb Member ID Guarantor Name 07/30/2023 1 [facility] - DOS ON OR AFTER 2022 - DUAL ELIGIBLE - RESIDENTIAL OPTIONS AND ONE CARE (MEDICARE REPLACEMENT/ADV ANTAGE - HMO) Randi Desilets [id number] Randi A Desilets 08/24/2023 1 [facility] - DOS ON OR AFTER 2022 - DUAL ELIGIBLE - RESIDENTIAL OPTIONS AND ONE CARE (MEDICARE REPLACEMENT/ADV ANTAGE - HMO) Randi Desilets [id number] Randi A Desilets 10/11/2023 1 [facility] - DOS ON OR AFTER 2022 - DUAL ELIGIBLE - RESIDENTIAL OPTIONS AND ONE CARE (MEDICARE REPLACEMENT/ADV ANTAGE - HMO) Randi Desilets [id number] Randi A Desilets 01/23/2024 1 [facility] - DOS ON OR AFTER 2022 - DUAL ELIGIBLE - RESIDENTIAL OPTIONS AND ONE CARE (MEDICARE REPLACEMENT/ADV ANTAGE - HMO) Randi Desilets [id number] Randi A Desilets 04/18/2024 1 [facility] - DOS ON OR AFTER 2022 - DUAL ELIGIBLE - RESIDENTIAL OPTIONS AND ONE CARE (MEDICARE REPLACEMENT/ADV ANTAGE - HMO) Randi Lowery [id number] Randi Lowery Notes Date Note Type Note [...] ....................... ....................... ....................... ....................... ....................... ....................... ... Neon Tube Bender Note From Gómez Kumar: Pt co abdominal pain. Has cystitis. Having surgery Wednesday. Was seen by [facility] Wednesday was given toradol with relief ..pt wanting toradol to hold her over for the weekend until surgery. Pt denies urinary symptoms, fever nausea vomiting diarrhea , cp sob, kidney problems. Baseline vitals assessed. [facility] [place] and 30mg toradol IM. Pt education on signs indicating the ER. Neon Tube Bender Allergies: Acetaminophen, Ibuprofen ....................... ....................... ....................... ....................... ....................... ....................... ... Disposition: Ivan Sofiya Frye MD [address] [facility],[address], [place], [address], [employer] 07/30/2023 21:05:26 08/24/2023 text/html CRC Nurse Triage Notes (Dave Cerna): Patient Reports: Inability to tolerate foods, fluids or daily medications Denies: Vague abdominal pain greater than 24 hours Nausea with or without vomiting Chief Complaints: Weakness/Lethargy, Dehydration, Abdominal Pain PMH: COPD/Asthma Allergies: Acetaminophen, Ibuprofen Comments: [employer] Operator verified the member's name//address and phone number. [...] ....................... ....................... ....................... ....................... ....................... ....................... ... Neon Tube Bender Note From Spencer Reis: 58 yo F [...] but pt needs to follow up with ingot passer to not just mask the pain but cure the main issue. 30mg given left deltoid. explained risks of senior care use of Toradol/NSAIDs. discussed red flags with pt and friend. ....................... ....................... ....................... ....................... ....................... ....................... ... Disposition: Fulfilled Duong Panchal MD [address] [facility],[address], [place], [address], [employer] 08/24/2023 22:57:14 10/11/2023 text/html CRC Nurse Triage Notes (Mayra Jaime): Reason For Request: Pt reporting introsystalitis, pain, nausea (for a couple days), states bladder surgery for next week>is requesting toradol and zofran Chief Complaints: Nausea/Vomiting, Pain PMH: COPD/Asthma Allergies: Acetaminophen, Ibuprofen Comments: [employer] verified the member's name//address and phone number. [...] ....................... ....................... ....................... ....................... ....................... ....................... ... Neon Tube Bender Note From Corey Moralez: Pt reporting acute [...] ... Disposition: Fulfilled Nelly Pérez MD [address] [facility],[address], [place], [address], [employer] 10/11/2023 21:24:08 01/23/2024 text/html CRC Nurse Triage [...] got in contact with mbr around 1450. [employer] verified the member's name//address and phone number. Mbr reporting generalized abdominal discomfort as well as nausea on going for the last few hours. Mbr reports awaiting bladder surgery which is scheduled for next month. [facility] has been seen in the past by [facility] for similar and [facility] Toradol has worked well for her pain in the past. Education provided on the response time and the member was advised to monitor reported s/s and seek emergency treatment if needed -Abdullahi Moeller RN ....................... ....................... ....................... ....................... ....................... ....................... ... Neon Tube Bender Note From Yennifer Celeste: Pt reports 2-3 days of nausea, vomiting with lower abd pain. A&ox3, vss, afebrile; ? cramping? in lower quadrants, mildly painful on palpation, denies cp, sob, back or flank pain, headache, dizziness, lightheadedness. [facility] consulted, 4mg zofran and 15mg toradol IM administered. Pt will follow up with pcp Wednesday. Red flags reviewed. Neon Tube Bender Allergies: Acetaminophen, Ibuprofen ....................... ....................... ....................... ....................... ....................... ....................... ... Disposition: Fulfilled Tha Pierson MD [address] [facility],[address], [place], [address], [employer] 01/23/2024 18:50:39 04/18/2024 text/html CRC Nurse Triage [...] ....................... ....................... ....................... ....................... ....................... ....................... ... Neon Tube Bender Note From Corey Moralez: This 59-year-old female [...] is soft, nontender, nondistended. No lower extremity edema.[facility] [place] and patient treated with ketorolac 30 [...] ....................... ....................... ....................... ....................... ....................... ....................... ... [facility] [place] Consulted: Nelly Pérez ....................... ....................... ....................... ....................... ....................... ....................... ... Disposition: Ivan Pérez MD [address] [facility],[address], [place], [address], [employer] 04/18/2024 19:46:24 OBGyn Episode No OBEpisode recorded.
--- OUTSIDE RECORDS SUMMARY | 2024-08-07 15:52 | XMS_ITS | Encounter Summary ---
Author Organization [facility] Address [phone] [place] [address] Care Team Providers Care Inspector Golf Ball Name Role Phone Pcp, Unknown Primary Care Provider Unavailabl e Reason for Visit * Auth/Cert (Routine) Specialty Diagnoses / Procedures Referred By Contac t Referred To Contact Referral ID Status Reason Start Date Expiration Date Visits Re quested Visits Authorized [id number] 1 1 Encounter Details Date Type Department Care Team (Late st Contact Info) Description 07/15/2024 1:30 AM EST Home Care Visit [facility] [address] [place] [phone] Olga Finley LPN [address] [place] [address] [email or web address] GLOBAL MARKETING INTERN HOME VISIT Social History Tobacco Use Types [...] Reading Time Taken Comments Blood Pressure 108/78 07/15/2024 8:51 AM EST Pulse 80 07/15/2024 8:51 AM EST Temperature 36.7 ??C (98 ??F) 07/15/2024 8:51 AM EST Respiratory Rate 20 07/15/2024 8:51 AM EST Oxygen Saturation 97% 07/15/2024 8:51 AM EST Inhaled Oxygen Concentration - - Weight - - Height - - Body Mass Index - - documented in this encounter Plan of Treatment Upcoming Encounters Date Type Department Care Team (Late st Contact Info) Description 08/08/2024 3:00 AM EST Home Care Visit [facility] [address] [place] [phone] Tala Alvarez RN [address] [place] [address] [email or web address] 08/11/2024 1:00 AM EST Home Care Visit [facility] [address] [place] [phone] Tala Alvarez RN [address] [place] [address] [email or web address] 08/15/2024 2:00 AM EST Home Care Visit [facility] [address] [place] [phone] Tala Alvarez RN [address] [place] [address] [email or web address] 08/18/2024 1:00 AM EST Home Care Visit [facility] [address] [place] [phone] Tala Alvarez RN [address] [place] [address] [email or web address] 08/22/2024 1:30 AM EDT Home Care Visit [facility] [address] [place] [phone] Tala Alvarez RN [address] [place] [address] [email or web address] 08/25/2024 12:30 AM EDT Home Care Visit [facility] [address] [place] [phone] Tala Alvarez RN [address] [place] [address] [email or web address] 08/29/2024 2:00 AM EDT Home Care Visit [facility] [address] [place] [phone] Tala Alvarez, PAMELA [address] [place] [address] [email or web address] 09/01/2024 12:30 AM EDT Home Care Visit [facility] [address] [place] [phone] Tala Alvarez, PAMELA [address] [place] [address] [email or web address] 09/05/2024 1:30 AM EDT Home Care Visit [facility] [address] [place] [phone] Tala Alvarez RN [address] [place] [address] [email or web address] 09/08/2024 12:30 AM EDT Home Care Visit [facility] [address] [place] [phone] Tala Alvarez, PAMELA [address] [place] [address] [email or web address] 09/12/2024 1:00 AM EDT Home Care Visit [facility] [address] [place] [phone] Tala Alvarez, PAMELA [address] [place] [address] [email or web address] 09/15/2024 Home Care Visit [facility] [address] [place] [phone] Tala Alvarez, PAMELA [address] [place] [address] [email or web address] 09/19/2024 Appointment [facility] [address], [place] [phone] Tala Alvarez, RN [address] [place] [address] [email or web address] documented as of this encounter Visit Diagnoses Not on filedocumented in this encounter Home Health Visit - Care Plan Visit Details Visit Type -GLOBAL MARKETING INTERN HOME VISIT Discipline -[facility] Problems Problem Description Start Date Status Goals [...] linked to scheduled/document ed intervention HH - Ostomy Management Disciplines: [facility] 11/27/2023 Active 1 goal linked to scheduled/document [...] & Instruction Provided: Pt VSS as documented. No changes in medication. REports MRI of back is ordered and she is also due for a bladder dilation. Pain conts to be managed w/ oxycodone 5mg TID prn. T/E on managing pain before it is a 6/10 to avoid exacerbaiton of the same. Denies any leaking issues with ostomy appliance. Stoma re/moist/healthy and peristomal skin CDI. Endorsed regular emptying of appliance and did so just prior to today's SNV. Appliance changed with active verbal participation and hands on as much as possible for pt and CG. Instruction Provided to: pt/cg Response to Instruction/Teaching: verbal teach back Plan for Next Visit Specific Focus & Education Needed: ostomy appliance change and assess for complications New Orders: na Updated Discharge Plan: dc snv when cp goals met - I/E management of care in an urgent or emergency (ER) situation: When to call your Home Care Team/[facility], ER plans, supplies, evacuation, when to contact [...] Completed documented in this encounter Care Teams Inspector Golf Ball Relationship Specialty Start Date End Date Pcp, Unknown PCP - General 02/23/23 documented as of this encounter Additional Source Comments The information contained in this document represents components of the legal health record. It is not the complete legal health record.[facility]
--- OUTSIDE RECORDS SUMMARY | 2024-08-07 15:53 | XMS_ITS | Encounter Summary ---
Author Organization [facility] Address [phone] [place] [address] Care Team Providers Care Web Application Tester Name Role Phone Pcp, Unknown Primary Care Provider Unavailabl e Reason for Visit * Auth/Cert (Routine) Specialty Diagnoses / Procedures Referred By Contac t Referred To Contact Referral ID Status Reason Start Date Expiration Date Visits Re quested Visits Authorized [id number] 1 1 Encounter Details Date Type Department Care Team (Late Contact Info) Description 07/22/2024 Home Care Visit [facility] [address] [place], [place] [phone] Ernestine Gillette RN [address] [place] [address] [email or web address] TRIAGE CLINICAL COMMUNICATION Social History Tobacco Use Types Packs/Day Years [...] Encounters Date Type Department Care Team (Late Contact Info) Description 08/08/2024 3:00 AM EST Home Care Visit [facility] [address] [place], [place] [phone] Tala Alvarez RN [address] [place], [place] [phone] 08/11/2024 1:00 AM EST Home Care Visit [facility] [address] [place] [phone] Tala Alvarez RN [address] [place] [address] 08/15/2024 2:00 AM EST Home Care Visit [facility] [address] [place] [phone] Tala Alvarez RN [address] [place] [address] 08/18/2024 1:00 AM EST Home Care Visit [facility] [address] [place] [phone] Tala Alvarez RN [address] [place] [address] 08/22/2024 1:30 AM EDT Home Care Visit [facility] [address] [place] [phone] Tala Alvarez RN [address] [place] [address] 08/25/2024 12:30 AM EDT Home Care Visit [facility] [address] [place] [phone] Tala Alvarez RN [address] [place] [address] 08/29/2024 2:00 AM EDT Home Care Visit [facility] [address] [place] [phone] Tala Alvarez RN [address] [place] [address] 09/01/2024 12:30 AM EDT Home Care Visit [facility] [address] [place] [phone] Tala Alvarez, PAMELA [address] [place] [address] [email or web address] 09/05/2024 1:30 AM EDT Home Care Visit [facility] [address] [place] [phone] Tala Alvarez RN [address] [place] [address] [email or web address] 09/08/2024 12:30 AM EDT Home Care Visit [facility] [address] [place] [phone] Tala Alvarez RN [address] [place] [address] [email or web address] 09/12/2024 1:00 AM EDT Home Care Visit [facility] [address] [place] [phone] Tala Alvarez, PAMELA [address] [place] [address] [email or web address] 09/15/2024 Home Care Visit [facility] [address] [place] [phone] Tala Alvarez, PAMELA [address] [place] [address] [email or web address] 09/19/2024 Appointment [facility] [address] [place] [phone] Tala Alvarez RN [address] [place] [address] [email or web address] documented as of this encounter Visit Diagnoses Not on filedocumented in this encounter Care Teams Web Application Tester Relationship Specialty Start Date End Date Pcp, Unknown PCP - General 02/23/23 documented as of this encounter Additional Source Comments The information contained in this document represents components of the legal health record. It is not the complete legal health record.[facility]
--- OUTSIDE RECORDS SUMMARY | 2024-08-07 15:53 | XMS_ITS | Encounter Summary ---
Author Organization [facility] Address [phone] [place] [address] Care Team Providers Care Manager Name Role Phone Pcp, Unknown Primary Care Provider Unavailabl e Encounter Details Date Type Department Care Team (Late st Contact Info) Description 07/21/2024 Plan of Care Documentation [facility] [address] [place], [place] [phone] Social History Tobacco Use Types Packs/Day Years [...] on file documented as of this encounter Miscellaneous Notes * Home Health Plan of Care - Raheel Butts - 08/01/2024 12:19 PM EST Criteria One Leaves home for: medical care, home supplies, nutritional needs Needs assistance to enter/leave residence: physical assist of one Significant dependence to enter/leave residence: Assistive Devices: walker Conditions which support Homebound and/or Medically Contraindicated Status Health safety risks: Restricted Mobility/Endurance: limited endurance due to weakness and/or fatigue, impaired balance, gait instability Environmental/Physical Barriers: risk of falls and/or history of falls Cognition/Mental Health/Behavioral Barriers: poor safety awareness, severe anxiety and/or panic attacks Criteria Two The patient is unable to routinely leave the home at this time (There is a normal inability to leave the home): Yes Leaving the home requires a considerable or taxing effort: Yes Additional Subjective/Objective detail includes: Homebound Status Patient is homebound: Yes Comments documented in this encounter Plan of Treatment Upcoming Encounters Date Type Department Care Team (Late st Contact Info) Description 08/08/2024 3:00 AM EST Home Care Visit [facility] [address] [place] [phone] Tala Alvarez RN [address] [place] [address] [email or web address] 08/11/2024 1:00 AM EST Home Care Visit [facility] [address] [place] [phone] Tala Alvarez RN [address] [place] [address] [email or web address] 08/15/2024 2:00 AM EST Home Care Visit [facility] [address] [place] [phone] Tala Alvarez, PAMELA [address] [place] [address] [email or web address] 08/18/2024 1:00 AM EST Home Care Visit [facility] [address] [place] [phone] Tala Alvarez RN [address] [place] [address] [email or web address] 08/22/2024 1:30 AM EDT Home Care Visit [facility] [address] [place] [phone] Tala Alvarez RN [address] [place] [address] [email or web address] 08/25/2024 12:30 AM EDT Home Care Visit [facility] [address] [place] [phone] Tala Alvarez, PAMELA [address] [place] [address] [email or web address] 08/29/2024 2:00 AM EDT Home Care Visit [facility] [address] [place] [phone] Tala Alvarez, PAMELA [address] [place] [address] [email or web address] 09/01/2024 12:30 AM EDT Home Care Visit [facility] [address] [place] [phone] Tala Alvarez, PAMELA [address] [place] [address] [email or web address] 09/05/2024 1:30 AM EDT Home Care Visit [facility] [address] [place] [phone] Tala Alvarez, PAMELA [address] [place] [address] [email or web address] 09/08/2024 12:30 AM EDT Home Care Visit [facility] [address] [place] [phone] Tala Alvarez, PAMELA [address] [place] [address] [email or web address] 09/12/2024 1:00 AM EDT Home Care Visit [facility] [address] [place] [phone] Tala Alvarez, PAMELA [address] [place] [address] [email or web address] 09/15/2024 Home Care Visit [facility] [address] [place] [phone] Tala Alvarez, PAMELA [address] [place] [address] [email or web address] 09/19/2024 Appointment [facility] [address] [place] [phone] Tala Alvarez RN [address] [place] [address] [email or web address] documented as of this encounter Visit Diagnoses Not on filedocumented in this encounter Care Teams Manager Relationship Specialty Start Date End Date Pcp, Unknown PCP - General 02/23/23 documented as of this encounter Additional Source Comments The information contained in this document represents components of the legal health record. It is not the complete legal health record.[facility]
--- OUTSIDE RECORDS SUMMARY | 2024-08-07 15:53 | XMS_ITS | Encounter Summary ---
Author Organization [facility] Address [phone] [place] [address] Care Team Providers Care Refrigeration Engineering Teacher Name Role Phone Pcp, Unknown Primary Care Provider Unavailabl e Reason for Visit * Auth/Cert (Routine) Specialty Diagnoses / Procedures Referred By Contac t Referred To Contact Referral ID Status Reason Start Date Expiration Date Visits Re quested Visits Authorized [id number] 1 1 Encounter Details Date Type Department Care Team (Late st Contact Info) Description 07/18/2024 9:45 AM EST Home Care Visit [facility] [address] [place] [phone] Tala Alvarez, RN [address] [place] [address] [email or web address] SN HOME VISIT Social History Tobacco Use [...] Sign Reading Time Taken Comments Blood Pressure 108/82 07/18/2024 10:53 AM EST Pulse 78 07/18/2024 10:53 AM EST Temperature 36.7 ??C (98 ??F) 07/18/2024 10:53 AM EST Respiratory Rate 18 07/18/2024 10:53 AM EST Oxygen Saturation 98% 07/18/2024 10:53 AM EST Inhaled Oxygen Concentration - - Weight - - Height - - Body Mass Index - - documented in this encounter Plan of Treatment Upcoming Encounters Date Type Department Care Team (Late st Contact Info) Description 08/08/2024 3:00 AM EST Home Care Visit [facility] [address] [place] [phone] Tala Alvarez RN [address] [place] [address] 08/11/2024 1:00 AM EST Home Care Visit [facility] [address] [place] [phone] Tala Alvarez RN [address] [place] [address] 08/15/2024 2:00 AM EST Home Care Visit [facility] [address] [place] [phone] Tala Alvarez RN [address] [place] [address] 08/18/2024 1:00 AM EST Home Care Visit [facility] [address] [place] [phone] Tala Alvarez RN [address] [place] [address] 08/22/2024 1:30 AM EDT Home Care Visit [facility] [address] [place] [phone] Tala Alvarez RN [address] [place] [address] 08/25/2024 12:30 AM EDT Home Care Visit [facility] [address] [place] [phone] Tala Alvarez, PAMELA [address] [place] [address] 08/29/2024 2:00 AM EDT Home Care Visit [facility] [address] [place] [phone] Tala Alvarez, PAMELA [address] [place] [address] 09/01/2024 12:30 AM EDT Home Care Visit [facility] [address] [place] [phone] Tala Alvarez, PAMELA [address] [place] [address] 09/05/2024 1:30 AM EDT Home Care Visit [facility] [address] [place] [phone] Tala Alvarez RN [address] [place] [address] 09/08/2024 12:30 AM EDT Home Care Visit [facility] [address] [place] [phone] Tala Alvarez, PAMELA [address] [place] [address] 09/12/2024 1:00 AM EDT Home Care Visit [facility] [address] [place] [phone] Tala Alvarez, PAMELA [address] [place] [address] 09/15/2024 Home Care Visit [facility] [address] [place] [phone] Tala Alvarez, PAMELA [address] [place] [address] 09/19/2024 Appointment [facility] [address] [place], [place] [phone] Tala Alvarez, RN [address] [place] [address] [email or web address] documented as of this encounter Visit Diagnoses [...] HH - Ostomy Management Not Progressing No due to tremor Interventions Intervention Associated Problem/Goal Status Variance Visit [...] Focus this Visit & Instruction Provided: Pt reports feeling well, Her PCP adjusted her Sertraline dose last Wednesday to 100mg daily to assist with anxiety management. she continues to use Lorazepam 3xday routinely as well. Today pt with more tremors noted in hands. Ileostomy care provided. No leakage outside of Bravastrips but leakage from destini seal noted. Skin is intact. Pt reports that she will have bladder stimulator wires exchanged in a few weeks to allow for MRI of her lower spine. currently unable to get MRI done due to wires thaat cannot go into MRI. 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 Instruction Provided to: patient and caregiver Response to Instruction/Teachin g: Is fully able to teach back topics as evidenced by verbalizes understanding. Plan for Next Visit Specific Focus & Education Needed: elostomy pouch change New Orders: no Updated Discharge Plan: [...] and knowledge of complications Completed HH - Ostomy care Description: Specific Treatment: END LOOP ILEOSTOMY Change Device/Appliance every 2X/WEEK and PRN if leaking or lack of integrity. Problem: - Ostomy Management Goal:HH - Demonstrate/verbalize management of ostomy care and knowledge of complications Completed documented in this encounter Care Teams Refrigeration Engineering Teacher Relationship Specialty Start Date End Date Pcp, Unknown PCP - General 02/23/23 documented as of this encounter Additional Source Comments The information contained in this document represents components of the legal health record. It is not the complete legal health record.[facility]
--- OUTSIDE RECORDS SUMMARY | 2024-08-07 15:53 | XMS_ITS | Encounter Summary ---
Author Organization [facility] Address [phone] [place] [address] Care Team Providers Care Manager Corporate Responsibility Name Role Phone Pcp, Unknown Primary Care Provider Unavailabl e Reason for Visit * Auth/Cert (Routine) Specialty Diagnoses / Procedures Referred By Contac t Referred To Contact Referral ID Status Reason Start Date Expiration Date Visits Re quested Visits Authorized [id number] 1 1 Encounter Details Date Type Department Care Team (Late st Contact Info) Description 07/25/2024 9:45 AM EST Home Care Visit [facility] [address] [place] [phone] Tala Alvarez, RN [address] [place] [address] [email or web address] SN HOME VISIT Social History Tobacco Use [...] Sign Reading Time Taken Comments Blood Pressure 120/78 07/25/2024 10:54 AM EST Pulse 73 07/25/2024 10:54 AM EST Temperature 36.8 ??C (98.2 ??F) 07/25/2024 10:[address] Respiratory Rate 18 07/25/2024 10:54 AM EST Oxygen Saturation 97% 07/25/2024 10:54 AM EST Inhaled Oxygen Concentration - - Weight - - Height - - Body Mass Index - - documented in this encounter Plan of Treatment Upcoming Encounters Date Type Department Care Team (Late st Contact Info) Description 08/08/2024 3:00 AM EST Home [facility] Visit [facility] [address] [place] [phone] Tala Alvarez RN [address] [place] [address] 08/11/2024 1:00 AM EST Home Care Visit [facility] [address] [place] [phone] Tala Alvarez RN [address] [place] [address] 08/15/2024 2:00 AM EST Home Care Visit [facility] [address] [place] [phone] Tala Alvarez RN [address] [place] [address] 08/18/2024 1:00 AM EST Home Care Visit [facility] [address] [place] [phone] Tala Alvarez RN [address] [place] [address] 08/22/2024 1:30 AM EDT Home Care Visit [facility] [address] [place] [phone] Tala Alvarez RN [address] [place] [address] 08/25/2024 12:30 AM EDT Home Care Visit [facility] [address] [place] [phone] Tala Alvarez RN [address] [place] [address] 08/29/2024 2:00 AM EDT Home Care Visit [facility] [address] [place] [phone] Tala Alvarez, PAMELA [address] [place] [address] 09/01/2024 12:30 AM EDT Home Care Visit [facility] [address] [place] [phone] Tala Alvarez, PAMELA [address] [place] [address] 09/05/2024 1:30 AM EDT Home Care Visit [facility] [address] [place] [phone] Tala Alvarez RN [address] [place] [address] 09/08/2024 12:30 AM EDT Home Care Visit [facility] [address] [place] [phone] Tala Alvarez, PAMELA [address] [place] [address] 09/12/2024 1:00 AM EDT Home Care Visit [facility] [address] [place] [phone] Tala Alvarez, PAMELA [address] [place] [address] 09/15/2024 Home Care Visit [facility] [address] [place] [phone] Tala Alvarez, PAMELA [address] [place] [address] 09/19/2024 Appointment [facility] [address] [place], [place] [phone] Tala Alvarez, RN [address] [place] [address] [email or web address] documented as of this encounter Visit Diagnoses Not on filedocumented in this encounter Home Health Visit - Care Plan Visit Details Visit Type -SN HOME VISIT Discipline -[facility] [...] Focus this Visit & Instruction Provided: pt in good mood today, still has not heard from her 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 Continues with significant tremors. Ed provided on trying to keep filter free of BM to avoid caking and filter from functioning so gas does not build up and cause pouch failure. Advised to use pillows for elevating head of bed to allow gravity to empy into pouch vs caking up filter. Pt verbalizes understanding. ielostomy pouch changed. Skin intact. Tremors to hand unchanged despite med adjustments. Is waiting for f/u with neuro surgery regarding change of bladder stimulator wires to allow for MRI of lower spine. Instruction Provided to: patient Response to Instruction/Teachin g: Is fully able to teach back topics as evidenced by verbalizes understanding. Plan for Next Visit Specific Focus & Education Needed: ileostomy care New Orders: no Updated Discharge Plan: no change HH - I/E management of care in an urgent or emergency (ER) situation: When to call your Home Care Team/91, ER plans, supplies, evacuation, when to contact [...] home/community discharge from homecare Completed HH - Diet: Description: regular diet Problem:HH - Standard of Care Goal:HH - Achieve care management for a safe to home/community discharge from homecare Completed HH - Assess pain Problem: - Pain Goal:HH - Frequency of pain interfering with patient's activity or movement will improve with activity or movement by discharge. Completed HH - Ostomy assessment: Stoma (measurement, appearance, flat/retracted, [...] documented in this encounter Care Teams Manager Corporate Responsibility Relationship Specialty Start Date End Date Pcp, Unknown PCP - General 02/23/23 documented as of this encounter Additional Source Comments The information contained in this document represents components of the legal health record. It is not the complete legal health record.[facility]
--- OUTSIDE RECORDS SUMMARY | 2024-08-07 15:53 | XMS_ITS | Encounter Summary ---
Author Organization [facility] Address [phone] [place] [address] Care Team Providers Care Silversmith Apprentice Name Role Phone Pcp, Unknown Primary Care Provider Unavailabl e Reason for Visit * Auth/Cert (Routine) Specialty Diagnoses / Procedures Referred By Contac t Referred To Contact Referral ID Status Reason Start Date Expiration Date Visits Re quested Visits Authorized [id number] 1 1 Encounter Details Date Type Department Care Team (Late st Contact Info) Description 07/27/2024 8:00 PM EST Home Care Visit [facility] [address] [place] [phone] Celina Ann RN [address] [place] [address] [email or web address] SN HOME VISIT Social History Tobacco Use [...] Sign Reading Time Taken Comments Blood Pressure 110/60 07/27/2024 8:57 PM EST Pulse 77 07/27/2024 8:57 PM EST Temperature 36.4 ??C (97.6 ??F) 07/27/2024 8:57 PM ES T Respiratory Rate 18 07/27/2024 8:57 PM EST Oxygen Saturation 99% 07/27/2024 8:57 PM EST Inhaled Oxygen Concentration - - Weight - - Height - - Body Mass Index - - documented in this encounter Plan of Treatment Upcoming Encounters Date Type Department Care Team (Late st Contact Info) Description 08/08/2024 3:00 AM EST Home [facility] Visit [facility] [address] [place] [phone] Tala Alvarez, PAMELA [address] [place] [address] 08/11/2024 1:00 AM EST Home Care Visit [facility] [address] [place] [phone] Tala Alvarez RN [address] [place] [address] 08/15/2024 2:00 AM EST Home Care Visit [facility] [address] [place] [phone] Tala Alvarez RN [address] [place] [address] 08/18/2024 1:00 AM EST Home Care Visit [facility] [address] [place] [phone] Tala Alvarez RN [address] [place] [address] 08/22/2024 1:30 AM EDT Home Care Visit [facility] [address] [place] [phone] Tala Alvarez RN [address] [place] [address] 08/25/2024 12:30 AM EDT Home Care Visit [facility] [address] [place] [phone] Tala Alvarez, PAMELA [address] [place] [address] 08/29/2024 2:00 AM EDT Home Care Visit [facility] [address] [place] [phone] Tala Alvarez RN [address] [place] [address] 09/01/2024 12:30 AM EDT Home Care Visit [facility] [address] [place] [phone] Tala Alvarez RN [address] [place] [address] 09/05/2024 1:30 AM EDT Home Care Visit [facility] [address] [place] [phone] Tala Alvarez RN [address] [place] [address] 09/08/2024 12:30 AM EDT Home Care Visit [facility] [address] [place] [phone] Tala Alvarez, PAMELA [address] [place] [address] 09/12/2024 1:00 AM EDT Home Care Visit [facility] [address] [place] [phone] Tala Alvarez, PAMELA [address] [place] [address] 09/15/2024 Home Care Visit [facility] [address] [place] [phone] Tala Alvarez, PAMELA [address] [place] [address] 09/19/2024 Appointment [facility] [address] [place], [place] [phone] Tala Alvarez, RN [address] [place] [address] [email or web address] documented as of this encounter Visit Diagnoses Not on filedocumented in this encounter Home Health Visit - Care Plan Visit Details Visit Type -SN HOME VISIT Discipline -Snf Problems Problem Description Start Date [...] scheduled/document ed in this visit HH - Advance Care Planning Disciplines: All Active Home Health Disciplines 11/27/2023 [...] 1 goal linked to scheduled/document ed intervention 9 goal interventions scheduled/document ed in this visit HH - Pain Disciplines: All Active Home Health Disciplines 11/27/2023 Active 1 goal linked to scheduled/document ed intervention 2 goal interventions scheduled/document ed in this visit HH - Ostomy Management Disciplines: Snf 11/27/2023 Active 1 goal linked to scheduled/document [...] and home safety. HH - Health Maintenance No HH - Communication and collaboration to achieve patient goals HH - Focus of Care and Teaching No HH - Verbalize awareness of Advance Care Planning. HH - Advance Care Planning No HH - Knowledge of options for [...] medication errors and/or interactions Completed HH - Assess immunizations Problem:HH - Health Maintenance Goal:HH - Patient preferences will be utilized to achieve optimal wellness and home safety. Completed HH - I/E immunizations Problem:HH - Health Maintenance Goal:HH - Patient preferences will be utilized to achieve optimal wellness and home safety. Completed HH - Focus of care, teaching completed and plan for next visit Problem:HH - Focus of Care and Teaching Goal:HH - Communication and collaboration to achieve patient goals Completed Primary Clinical Focus this Visit & Instruction Provided: called to see client due to leaking iliostomy appliance. when I arrived at home client laying on couch with stool noted on abd. bag is changed without difficulty and leaking at medial aspect of stoma has been on ongoing issue that is being worked on. client denies any pain or other issues at this time. Instruction Provided to: patient and caregiver Response to Instruction/Teachin g: Is partially able to teach back topics as evidenced by verbal recall. Plan for Next Visit Specific Focus & Education Needed: assessment and teaching New Orders: none Updated Discharge Plan: when independent with care HH - I/E advance directive information. Written information provided to the patient and caregiver, as indicated. The patient has: Description: the patient has not selected an advanced directive Problem:HH - Advance Care Planning Goal:HH - Verbalize awareness of Advance Care Planning. Completed HH - I/E management of care in [...] an emergency related situation. Completed HH - Establish an individualized emergency plan: Description: Evacuation Plan is: evacuate Priority Medical Needs are: N/A A triage code has been assigned. A triage code and emergency plan will be reassessed for continued accuracy. Specific risks based on location: extreme cold/snow, extreme heat, high winds, loss of utilities and severe storms An emergency supply list has been provided. Problem:HH - Emergency Planning - Knowledge of [...] will resolve without complication Completed HH - Complete fall risk assessment scale Problem:HH - Falls - Risk of Goal:HH - Knowledge and management of fall prevention measures. Completed HH - I/E fall prevention measures [...] patient at high risk for a fall Problem: - Falls - Risk of Goal: - Knowledge and management of fall prevention [...] discharge from homecare Completed HH - I/E safety measures, non-fall related Description: adequate lighting, electrical safety, environmental safety, proper storage and disposal of medications, safe ADLs/IADLs and sharps precautions Problem: - Standard of Care Goal:HH - Achieve care management for a safe to home/community discharge from homecare Completed - I/E management of skin integrity and non-wound impairment Description: compression dressing management, s/s of pressure injury, pressure reduction, and injury prevention measures and skin care Problem: - Standard of Care Goal:HH - Achieve care management for a safe to home/community discharge from homecare Completed - Assess safety needs of patient (other than falls) Problem: - Standard of Care Goal:HH - Achieve care management for a safe to home/community discharge from homecare Completed - I/E discharge plan Problem:HH - Standard of Care Goal:HH - Achieve care management for a safe to home/community discharge from homecare Completed - Complete Juma scale at SOC and weekly Problem: - Standard of Care Goal:HH - Achieve care management for a safe to home/community discharge from homecare Completed - Diet: Description: regular diet Problem: - Standard of Care Goal:HH - Achieve care management for a safe to home/community discharge from homecare Completed - Assess pain Problem: - Pain Goal:HH [...] TYPE: ILEOSTOMY DEVICE PRODUCT NAME AND SIZE: HELDER IMS- [id number]- 1-PIECE COLOPLAST 57118. Problem: - Ostomy Management Goal:HH - Demonstrate/verbalize management of ostomy care and knowledge of complications Completed - Ostomy assessment: Stoma (measurement, appearance, [...] Completed documented in this encounter Care Teams Silversmith Apprentice Relationship Specialty Start Date End Date Pcp, Unknown PCP - General 02/23/23 documented as of this encounter Additional Source Comments The information contained in this document represents components of the legal health record. It is not the complete legal health record.[facility]
--- OUTSIDE RECORDS SUMMARY | 2024-08-07 15:54 | XMS_ITS | Encounter Summary ---
Author Organization [facility] Address [phone] [place] [address] Care Team Providers Care Offset Printing Pressmen Name Role Phone Pcp, Unknown Primary Care Provider Unavailabl e Reason for Visit * Auth/Cert (Routine) Specialty Diagnoses / Procedures Referred By Contac t Referred To Contact Referral ID Status Reason Start Date Expiration Date Visits Re quested Visits Authorized [id number] 1 1 Encounter Details Date Type Department Care Team (Late st Contact Info) Description 07/29/2024 Home Care Visit [facility] [address] [place], [place] [phone] Lula Ordonez RN [address] [place] [address] [email or web address] SN PRN HOME VISIT Social History Tobacco [...] Visit [facility] [address] [place], [place] [phone] Tala Alvarez RN [address] [place], [place] [phone] 08/11/2024 1:00 AM EST Home Care Visit [facility] [address] [place] [phone] Tala Alvarez RN [address] [place] [address] [email or web address] 08/15/2024 2:00 AM EST Home Care Visit [facility] [address] [place] [phone] Tala Alvarez RN [address] [place] [address] [email or web address] 08/18/2024 1:00 AM EST Home Care Visit [facility] [address] [place] [phone] Tala Alvarez RN [address] [place] [address] [email or web address] 08/22/2024 1:30 AM EDT Home Care Visit [facility] [address] [place] [phone] Tala Alvarez RN [address] [place] [phone] [email or web address] 08/25/2024 12:30 AM EDT Home Care Visit [facility] [address] [place] [phone] Tala Alvarez RN [address] [place] [address] [email or web address] 08/29/2024 2:00 AM EDT Home Care Visit [facility] [address] [place] [phone] Tala Alvarez RN [address] [place] [phone] [email or web address] 09/01/2024 12:30 AM EDT Home Care Visit [facility] [address] [facility] [place] [phone] Tala Alvarez, PAMELA [address] [place] [address] [email or web address] 09/05/2024 1:30 AM EDT Home Care Visit [facility] [address] [place] [phone] Tala Alvarez RN [address] [place] [address] [email or web address] 09/08/2024 12:30 AM EDT Home Care Visit [facility] [address] [place] [phone] Tala Alvarez RN [address] [place] [address] [email or web address] 09/12/2024 1:00 AM EDT Home Care Visit [facility] [address] [place] [phone] Tala Alvarez RN [address] [place] [address] [email or web address] 09/15/2024 Home Care Visit [facility] [address] [place] [phone] Tala Alvarez RN [address] [place] [address] [email or web address] 09/19/2024 Appointment [facility] [address] [place] [phone] Tala Alvarez RN [address] [place] [address] [email or web address] documented as of this encounter Visit Diagnoses Not on filedocumented in this encounter Home Health Visit - Care Plan Visit Details Visit Type -SN PRN HOME VISI T Discipline -Care Home Problems Problem Description Start Date Status Goals [...] this visit HH - Ostomy Management Disciplines: Care Home 11/27/2023 Active 1 goal linked to scheduled/document [...] this Visit & Instruction Provided: Call from patient's friend reporting that ostomy is leaking again. They report bag was just changed this afternoon at 1:30 pm but two hours after going to bed, it is leaking again. She denies any increase in gas or liquid stool. Bag removed with adhesive remover. Leak occurred toward patient's belly button. Stool is brown and soft. Skin cleansed and anselmo-stomal powder applied with skin prep. Small piece of Gloria used to fill crease in abdomen at umbilicus and Gloria ring placed around stoma. Bag placed with barrier strips to secure. Advised to call [facility] for any further leakage as they have not developed comfort with appliance change. Patient's abdomen is softer than it had been previously. Suspect a firmer wafer with convexity may help prevent leaks. CC to manager technical services. Instruction Provided to: patient and caregiver Response to Instruction/Teach ing: Is fully able to teach back topics as evidenced by verbalizes understanding. Plan for Next Visit Specific Focus & Education Needed: Evaluate need for convexity New Orders: N/A HH - I/E management of care in an urgent or emergency (ER) situation: When to call your Home Care Team/[facility], ER plans, supplies, evacuation, when to contact [...] emergency related situation. Scheduled HH - Assess skin integrity Problem: - Standard of Care Goal: - Achieve care management for a safe to home/community discharge from homecare Completed HH - Assess vital signs, pulse oximetry, pain, and as indicated, orthostatic vital signs Description: use agency-specific parameters Problem: - Standard of Care Goal: - Achieve care management for a safe to home/community discharge from homecare Scheduled with variance Patient refused HH - Ostomy management (type & device): Description: OSTOMY TYPE: ILEOSTOMY DEVICE PRODUCT NAME AND SIZE: GLORIA SLIMS- [id number]- 1-PIECE COLOPLAST 32544. Problem:HH - Ostomy Management Goal:HH - Demonstrate/verbali ze management of ostomy care and knowledge of complications Completed HH - Ostomy assessment: Stoma (measurement, appearance, flat/retracted, mucocutaneous separation, anselmo stoma irritation or breakdown) and signs of complications Description: Assess nutritional status, risk of body image issues, emotional needs, and coping skills. Problem:HH - Ostomy Management Goal:HH - Demonstrate/verbali ze management of ostomy care and knowledge of complications Completed HH - Ostomy care Description: Specific Treatment: END LOOP ILEOSTOMY Change Device/Appliance every 2X/WEEK and PRN if leaking or lack of integrity. Problem:HH - Ostomy Management Goal:HH - Demonstrate/verbali ze management of ostomy care and knowledge of complications Completed documented in this encounter Care Teams Offset Printing Pressmen Relationship Specialty Start Date End Date Pcp, Unknown PCP - General 02/23/23 documented as of this encounter Additional Source Comments The information contained in this document represents components of the legal health record. It is not the complete legal health record.[facility]
--- OUTSIDE RECORDS SUMMARY | 2024-08-07 15:54 | XMS_ITS | Encounter Summary ---
Author Organization [facility] Address [phone] [place] [address] Care Team Providers Care Tube Station Attendant Name Role Phone Pcp, Unknown Primary Care Provider Unavailabl e Reason for Visit * Auth/Cert (Routine) Specialty Diagnoses / Procedures Referred By Contac t Referred To Contact Referral ID Status Reason Start Date Expiration Date Visits Re quested Visits Authorized [id number] 1 1 Encounter Details Date Type Department Care Team (Late st Contact Info) Description 07/21/2024 4:25 AM EST Home Care Visit [facility] [address] [place], [place] [phone] Hawa Espinoza RN [address] [place] [address] [email or web address] SN PRN HOME VISIT Social History Tobacco [...] 3:00 AM EST Home Care Visit [facility] [address] [place], [place] [phone] Tala Alvarez RN [address] [place] [address] [email or web address] 08/11/2024 1:00 AM EST Home Care Visit [facility] [address] [place] [phone] Tala Alvarez, PAMELA [address] [place] [address] [email or web address] 08/15/2024 2:00 AM EST Home Care Visit [facility] [address] [place] [address] Tala Alvarez, PAMELA [address] [place] [address] [email or web address] 08/18/2024 1:00 AM EST Home Care Visit [facility] [address] [place] [phone] Tala Alvarez RN [address] [place] [address] [email or web address] 08/22/2024 1:30 AM EDT Home Care Visit [facility] [address] [place] [phone] Tala Alvarez, PAMELA [address] [place] [address] [email or web address] 08/25/2024 12:30 AM EDT Home Care Visit [facility] [address] [place] [phone] Tala Alvarez, PAMELA [address] [place] [address] [email or web address] 08/29/2024 2:00 AM EDT Home Care Visit [facility] [address] [place] [phone] Tala Alvarez, PAMELA [address] [place] [address] [email or web address] 09/01/2024 12:30 AM EDT Home Care Visit [facility] [address] [place] [phone] Tala Alvarez RN [address] [place] [address] [email or web address] 09/05/2024 1:30 AM EDT Home Care Visit [facility] [address] [place] [phone] Tala Alvarez RN [address] [place] [address] [email or web address] 09/08/2024 12:30 AM EDT Home Care Visit [facility] [address] [place] [phone] Tala Alvarez RN [address] [place] [address] [email or web address] 09/12/2024 1:00 AM EDT Home Care Visit [facility] [address] [place] [phone] Tala Alvarez RN [address] [place] [address] [email or web address] 09/15/2024 Home Care Visit [facility] [address] [place] [phone] Tala Alvarez RN [address] [place] [address] [email or web address] 09/19/2024 Appointment [facility] [address] [place] [phone] Tala Alvarez RN [address] [place] [address] [email or web address] documented as of this encounter Visit Diagnoses Not on filedocumented in this encounter Home Health Visit - Care Plan Visit Details Visit Type -SN PRN HOME VISI T Discipline -Shelter Problems Problem Description Start Date [...] ed intervention HH - Ostomy Management Disciplines: Shelter 11/27/2023 Active 1 goal linked to scheduled/document ed intervention HH - Depression - Actual or Risk [...] medication reconciliation as indicated. Pharmacy information: Description: [facility] Problem:HH - Medication Management Goal:HH - Safe medication management, avoid unnecessary harm related to medication errors and/or interactions Completed - Focus of care, teaching completed and plan for next visit Problem: - Focus of Care and Teaching Goal: - Communication and collaboration to achieve patient goals Completed Primary Clinical Focus this Visit & Instruction Provided: PRN visit to patient's home this morning. Patient called answering service at 4:06 AM due to leaking ileostomy pouch. On arrival found patient on couch waiting to assistance with changing the pouch. Patient had stool all over her abdomen. Skin/hygiene care provided. Pouch removed and skin rash at lower right quadrant of where ostomy bag is placed. Patient stated that it was itchy. Nystatin power applied to skin rash. Patient's skin was prepped (cleansed and dried thoroughly) for a new pouch to be placed. Stoma powder and skin prep applied. Gloria seal, pre-cut pouch, skin prep/ Cavilon Advanced Skin Protectant and barrier rings used to hold pouching system in place. Patient able to tolerate ostomy care well. Simethicone tablets discussed again with patient for excessive gas since patient has this issue. Patient stated that she is waiting for her PCP to give her the go ahead that simethicone will help the gas and bloating issues. Patient advised to call with any questions or concerns. Instruction Provided to: patient and caregiver Response to Instruction/Teaching: Is fully able to teach back topics as evidenced by verbalizes understanding . Plan for Next Visit Specific Focus & Education Needed: ileostomy pouch change, using simethicone tablets New Orders: Updated Discharge Plan: HH - I/E management [...] resolve without complication Completed HH - Assess vital signs, pulse [...] discharge from homecare Completed HH - Assess s/s of depression Problem:HH - Depression - Actual or Risk of Impairment Goal:HH - Demonstrate/verbalize improvement in depressive symptoms Completed HH - I/E anxiety management, causes, treatment options and coping mechanisms Problem:HH - Anxiety - Actual or Risk of Impairment Goal:HH - Decrease anxiety through knowledge and management of triggers. Completed documented in this encounter Care Teams Tube Station Attendant Relationship Specialty Start Date End Date Pcp, Unknown PCP - General 02/23/23 documented as of this encounter Additional Source Comments The information contained in this document represents components of the legal health record. It is not the complete legal health record.[facility]
--- OUTSIDE RECORDS SUMMARY | 2024-08-07 15:54 | XMS_ITS | Encounter Summary ---
Author Organization [facility] Address [phone] [place] [address] Care Team Providers Care Tipple Engineer Name Role Phone Pcp, Unknown Primary Care Provider Unavailabl e Reason for Visit * Auth/Cert (Routine) Specialty Diagnoses / Procedures Referred By Contac t Referred To Contact Referral ID Status Reason Start Date Expiration Date Visits Re quested Visits Authorized [id number] 1 1 Encounter Details Date Type Department Care Team (Late st Contact Info) Description 07/22/2024 7:30 AM EST Home Care Visit [facility] [address] [place] [phone] Evelin Zurita, PAMELA [address] [place] [address] [email or web address] SN PRN HOME VISIT Social History Tobacco [...] Sign Reading Time Taken Comments Blood Pressure 130/80 07/22/2024 12:52 PM EST Pulse 68 07/22/2024 12:52 PM EST Temperature 36.1 ??C (97 ??F) 07/22/2024 12:52 PM EST Respiratory Rate 18 07/22/2024 12:52 PM EST Oxygen Saturation 100% 07/22/2024 12:52 PM EST Inhaled Oxygen Concentration - - Weight - - Height - - Body Mass Index - - documented in this encounter Plan of Treatment Upcoming Encounters Date Type Department Care Team (Late st Contact Info) Description 08/08/2024 3:00 AM EST Home Care Visit [facility] [address] [place] [phone] Tala Alvarez RN [address] [place] [address] 08/11/2024 1:00 AM EST Home Care Visit [facility] [address] [place] [phone] Tala Alvarez RN [address] [place] [address] 08/15/2024 2:00 AM EST Home Care Visit [facility] [address] [place] [phone] Tala Alvarez RN [address] [place] [address] 08/18/2024 1:00 AM EST Home Care Visit [facility] [address] [place] [phone] Tala Alvarez RN [address] [place] [address] 08/22/2024 1:30 AM EDT Home Care Visit [facility] [address] [place] [phone] Tala Alvarez RN [address] [place] [address] 08/25/2024 12:30 AM EDT Home Care Visit [facility] [address] [place] [phone] Tala Alvarez RN [address] [place] [address] 08/29/2024 2:00 AM EDT Home Care Visit [facility] [address] [place] [phone] Tala Alvarez, PAMELA [address] [place] [address] 09/01/2024 12:30 AM EDT Home Care Visit [facility] [address] [place] [phone] Tala Alvarez RN [address] [place] [address] 09/05/2024 1:30 AM EDT Home Care Visit [facility] [address] [place] [phone] Tala Alvarez RN [address] [place] [address] 09/08/2024 12:30 AM EDT Home Care Visit [facility] [address] [place] [phone] Tala Alvarez, PAMELA [address] [place] [address] 09/12/2024 1:00 AM EDT Home Care Visit [facility] [address] [place] [phone] Tala Alvarez, PAMELA [address] [place] [address] 09/15/2024 Home Care Visit [facility] [address] [place] [phone] Tala Alvarez, PAMELA [address] [place] [address] 09/19/2024 Appointment [facility] [address] [place], [place] [phone] Tala Alvarez, RN [address] [place] [address] [email or web address] documented as of this encounter Visit Diagnoses Not on filedocumented in this encounter Home Health Visit - Care Plan Visit Details Visit Type -SN PRN HOME VISI T Discipline -Chcf Problems Problem Description Start Date Status Goals [...] this visit HH - Ostomy Management Disciplines: Ch[facility] 11/27/2023 Active 1 goal linked to scheduled/document [...] this Visit & Instruction Provided: PRN visit for leaking ostomy. Patient distressed over phone, insisting on need for SNV freya. States towel in place but she and cg unable to perform on own d/t visual deficits. On couch on arrival, ostomy appliance in place with small leak noted at 9 o'clock. Patient afebrile, vss. Denies pain.. Ostomy appliance changed, instructed in keeping warm hands/warm pack to place next 10 minutes to promote adhesion. Instructed on foods to slow and thicken output. Instruction Provided to: patient Response to Instruction/Teaching: Is partially able to teach back topics as evidenced by verbalization. Plan for Next Visit Specific Focus & Education Needed: ostomy appliance change New Orders: na Updated Discharge Plan: when able to manage ostomy appliance independently - I/E management of care in an [...] home/community discharge from homecare Completed - Ostomy management (type & device): Description: OSTOMY TYPE: ILEOSTOMY DEVICE PRODUCT NAME AND SIZE: HELDER NICOLASIMS- [id number]- 1-PIECE COLOPLAST [id number]. Problem: - Ostomy Management Goal:HH - Demonstrate/verbalize [...] Completed documented in this encounter Care Teams Tipple Engineer Relationship Specialty Start Date End Date Pcp, Unknown PCP - General 02/23/23 documented as of this encounter Additional Source Comments The information contained in this document represents components of the legal health record. It is not the complete legal health record.[facility]
--- OUTSIDE RECORDS SUMMARY | 2024-08-07 15:54 | XMS_ITS | Encounter Summary ---
Author Organization [facility] Address [phone] [place] [address] Care Team Providers Care Professor Of Literature Name Role Phone Pcp, Unknown Primary Care Provider Unavailabl e Encounter Details Date Type Department Care Team (Late st Contact Info) Description 07/31/2024 Episode Documentatio n Update [facility] [address] [place], [place] [phone] Social History Tobacco Use Types Packs/Day Years [...] Visit [facility] [address] [place], [place] [phone] Tala Alvarez RN [address] [place] [address] [email or web address] 08/11/2024 1:00 AM EST Home Care Visit [facility] [address] [place], [place] [phone] Tala Alvarez RN [address] [place] [address] 08/15/2024 2:00 AM EST Home Care Visit [facility] [address] [place] [phone] Tala Alvarez RN [address] [place] [address] 08/18/2024 1:00 AM EST Home Care Visit [facility] [address] [place] [phone] Tala Alvarez RN [address] [place] [address] 08/22/2024 1:30 AM EDT Home Care Visit [facility] [address] [place] [phone] Tala Alvarez RN [address] [place] [address] 08/25/2024 12:30 AM EDT Home Care Visit [facility] [address] [place] [phone] Tala Alvarez RN [address] [place] [address] 08/29/2024 2:00 AM EDT Home Care Visit [facility] [address] [place] [phone] Tala Alvarez RN [address] [place] [address] 09/01/2024 12:30 AM EDT Home Care Visit [facility] [address] [place] [phone] Tala Alvarez RN [address] [place] [address] 09/05/2024 1:30 AM EDT Home Care Visit [facility] [address] [place] [phone] Tala Alvarez, PAMELA [address] [place] [address] [email or web address] 09/08/2024 12:30 AM EDT Home Care Visit [facility] [address] [place] [phone] Tala Alvarez RN [address] [place] [address] 09/12/2024 1:00 AM EDT Home Care Visit [facility] [address] [place] [phone] Tala Alvarez, PAMELA [address] [place] [address] 09/15/2024 Home Care Visit [facility] [address] [place] [phone] Tala Alvarez, PAMELA [address] [place] [address] 09/19/2024 Appointment [facility] [address] [place] [phone] Tala Alvarez RN [address] [place] [address] documented as of this encounter Visit Diagnoses Not on filedocumented in this encounter Care Teams Professor Of Literature Relationship Specialty Start Date End Date Pcp, Unknown PCP - General 02/23/23 documented as of this encounter Additional Source Comments The information contained in this document represents components of the legal health record. It is not the complete legal health record.[facility]
--- OUTSIDE RECORDS SUMMARY | 2024-08-07 15:54 | XMS_ITS | Encounter Summary ---
Author Organization [facility] Address [phone] [place] [address] Care Team Providers Care Creche Attendant Name Role Phone Pcp, Unknown Primary Care Provider Unavailabl e Reason for Visit * Auth/Cert (Routine) Specialty Diagnoses / Procedures Referred By Contac t Referred To Contact Referral ID Status Reason Start Date Expiration Date Visits Re quested Visits Authorized [id number] 1 1 Encounter Details Date Type Department Care Team (Late st Contact Info) Description 07/21/2024 8:30 AM EST Home Care Visit [facility] [address] [place] [phone] Tala Alvarez, RN [address] [place] [address] [email or web address] SN OASIS RECERTIFICATION/FUP Social History Tobacco Use Types Packs/Day Years [...] Sign Reading Time Taken Comments Blood Pressure 108/72 07/21/2024 9:38 AM EST Pulse 76 07/21/2024 9:38 AM EST Temperature 36.6 ??C (97.8 ??F) 07/21/2024 9:38 AM ES T Respiratory Rate 16 07/21/2024 9:38 AM EST Oxygen Saturation 97% 07/21/2024 9:38 AM EST Inhaled Oxygen Concentration - - Weight - - Height - - Body Mass Index - - documented in this encounter Plan of Treatment Upcoming Encounters Date Type Department Care Team (Late st Contact Info) Description 08/08/2024 3:00 AM EST Home Care Visit [facility] [address] [place] [phone] Tala Alvarez, PAMELA [address] [place] [address] [email or web address] 08/11/2024 1:00 AM EST Home Care Visit [facility] [address] [place] [phone] Tala Alvarez RN [address] [place] [address] [email or web address] 08/15/2024 2:00 AM EST Home Care Visit [facility] [address] [place] [phone] Tala Alvarez RN [address] [place] [address] [email or web address] 08/18/2024 1:00 AM EST Home Care Visit [facility] [address] [place] [phone] Tala Alvarez RN [address] [place] [address] [email or web address] 08/22/2024 1:30 AM EDT Home Care Visit [facility] [address] [place] [phone] Tala Alvarez RN [address] [place] [address] [email or web address] 08/25/2024 12:30 AM EDT Home Care Visit [facility] [address] [place] [phone] Tala Alvarez, PAMELA [address] [place] [address] [email or web address] 08/29/2024 2:00 AM EDT Home Care Visit [facility] [address] [place] [phone] Tala Alvarez RN [address] [place] [address] [email or web address] 09/01/2024 12:30 AM EDT Home Care Visit [facility] [address] [place] [phone] Tala Alvarez RN [address] [place] [address] [email or web address] 09/05/2024 1:30 AM EDT Home Care Visit [facility] [address] [place] [phone] Tala Alvarez RN [address] [place] [address] [email or web address] 09/08/2024 12:30 AM EDT Home Care Visit [facility] [address] [place] [phone] Tala Alvarez, PAMELA [address] [place] [address] [email or web address] 09/12/2024 1:00 AM EDT Home Care Visit [facility] [address] [place] [phone] Tala Alvarez, PAMELA [address] [place] [address] [email or web address] 09/15/2024 Home Care Visit [facility] [address] [place] [phone] Tala Alvarez, PAMELA [address] [place] [address] [email or web address] 09/19/2024 Appointment [facility] [address] [place], [place] [phone] Tala Alvarez, RN [address] [place] [address] [email or web address] documented as of this encounter Visit Diagnoses Not on filedocumented in this encounter Home Health Visit - Care Plan Visit Details Visit Type -SN OASIS RECERTI FICATION/FUP Discipline -Long Term Problems Problem Description Start Date Status Goals [...] - no pain. HH - Pain No Interventions Intervention Associated Problem/Goal Status Variance [...] Focus this Visit & Instruction Provided: pt continues to require SN for ileostomy care as pt is unable to manage self care due to tremors and poor vision and severe anxiety. 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 Her PCP has adjusted her meds several times, most recently increasing Sertraline to 100mg daily. Pt's tremors are unachanged and her caregiver friend is unable to assist with ileostomy care due to visual difficulties. Pt has been advised [facility] via a [facility] Foster Care living arrangements. Pt has [employer] for insurance and her [facility] care manger is involved. Unfortunately pt is not eligible for [employer] support to explore alternate living until age 60 on November 17 this year. Pt has had repeated and frequent ileostomy pouch leakage most oftern in electrolytic etcher hours requiring PRN SN visits to change pouch. Pt has been able to access Advanced skin prep via PA by her GI provider but often times leakage is due to not emptying pouch early enough or due to gas in bag. Pt sleeps supine and vent is oftern cakes preventing filter from working properly. GI has ordered/requested wedge for bed with prior auth about 8 weeks ago but so far pt has not received the ordered wedge which would help with preventing filter from working properly. Pt has been advised on dietary restrictions and keeping log of which foods to avoid, but she has not been able to follow trhough on food diary. This is likely due to tremor which complicates pts ability to write notes. Pt has had OT services but due to essential tremor no further improvement for tremor control was recommended. Instruction Provided to: patient Response to Instruction/Teaching: Is fully able to teach back topics as evidenced by verbalizes understanding. Plan for Next Visit Specific Focus & Education Needed: ileostomy care New Orders: no Updated Discharge Plan: when able to arrange for alternate living arrangements - I/E management of care in an [...] with activity or movement by discharge. Completed documented in this encounter Care Teams Creche Attendant Relationship Specialty Start Date End Date Pcp, Unknown PCP - General 02/23/23 documented as of this encounter Additional Source Comments The information contained in this document represents components of the legal health record. It is not the complete legal health record.[facility]
--- OUTSIDE RECORDS SUMMARY | 2024-08-07 15:55 | XMS_ITS | Encounter Summary ---
Author Organization [facility] [place] [facility] Address [phone] [place] [address] Care Team Providers Care Car Dealer Name Role Phone Pcp, Unknown Primary Care Provider Unavailabl e Reason for Visit * Auth/Cert (Routine) Specialty Diagnoses / Procedures Referred By Contac t Referred To Contact Referral ID Status Reason Start Date Expiration Date Visits Re quested Visits Authorized [id number] 1 1 Encounter Details Date Type Department Care Team (Late st Contact Info) Description 07/28/2024 12:30 PM EST Home Care Visit [facility] [address] [place], [place] [phone] Tala Alvarez RN [address] [place] [address] [email or web address] SN PRN HOME VISIT Social History Tobacco [...] 3:00 AM EST Home Care Visit [facility] [address] [place], [place] [phone] Tala Alvarez RN [address] [place] [address] 08/11/2024 1:00 AM EST Home [facility] Visit [facility] [address] [place] [phone] Tala Alvarez RN [address] [place] [address] 08/15/2024 2:00 AM EST Home Care Visit [facility] [address] [place] [phone] Tala Alvarez RN [address] [place] [address] 08/18/2024 1:00 AM EST Home Care Visit [facility] [address] [place] [phone] Tala Alvarez RN [address] [place] [address] 08/22/2024 1:30 AM EDT Home Care Visit [facility] [address] [place] [phone] Tala Alvarez, PAMELA [address] [place] [address] 08/25/2024 12:30 AM EDT Home Care Visit [facility] [address] [place] [phone] Tala Alvarez RN [address] [place] [address] 08/29/2024 2:00 AM EDT Home Care Visit [facility] [address] [place] [phone] Tala Alvarez RN [address] [place] [address] 09/01/2024 12:30 AM EDT Home Care Visit [facility] [address] [place] [phone] Tala Alvarez, PAMELA [address] [place] [address] 09/05/2024 1:30 AM EDT Home [facility] [address] [place] [phone] Tala Alvarez RN [address] [place] [address] 09/08/2024 12:30 AM EDT Home Care Visit [facility] [address] [place] [phone] Tala Alvarez RN [address] [place] [address] 09/12/2024 1:00 AM EDT Home Care Visit [facility] [address] [place] [phone] Tala Alvarez RN [address] [place] [address] 09/15/2024 Home Care Visit [facility] [address] [place] [phone] Tala Alvarez RN [address] [place] [address] 09/19/2024 Appointment [facility] [address] [place] [phone] Tala Alvarez RN [address] [place] [address] documented as of this encounter Visit Diagnoses Not on filedocumented in this encounter Home Health Visit - Care Plan Visit Details Visit Type -SN PRN HOME VISI T Discipline -Custodial Problems Problem Description Start Date Status Goals [...] Problem: - Focus of Care and Teaching Goal:HH - Communication and collaboration to achieve patient goals Completed Primary Clinical Focus this Visit & Instruction Provided: prn visit due to leaking ielostomy pouch. Pt followed directions of removing old appliance and keeping skin clean since leak occurred 90 mins ago. Slight erythema noted to peristomal skin- applied stoma powder, advanced skin prep- allowed to dry, completed pouch change. Added additional curved brava strips. Discussed need to work more actively on plan to find care situation due to pt's inablility to learn ileostomy mangement. Pt will require pharmacy delivery driver or move to living placement where assistance is readily accessible. today pt is very resistant to moving to a different setting. Explained that VNA services are not going to be available espceially if pouch fails during overnight. Pt has had 10 PRN visit over past 4 weeks and will be out of supplies if this continues. Any supplies that is beyond insurance approved amount pt will need to order privately. Pt is willing to do so but does not have access to internet to order supplies. Again explained to keep filter free of BM to prevent caking and to position self to allow for drainage at least at 30 degree angle, which will also prevent BM from clogging filter. Pt verbalizes understanding. Suggested WRAPPER LAYER AND EXAMINER SOFT WORK via VNA to help explain options for care to address her inability to care for stoma. Agreeable to WRAPPER LAYER AND EXAMINER SOFT WORK visit. Had return call from PCP office with VO for WRAPPER LAYER AND EXAMINER SOFT WORK. Instruction Provided to: patient Response to Instruction/Teachin g: Is fully able to teach back topics as evidenced by verbalizes understanding. Plan for Next Visit Specific Focus & Education Needed: ielostomy care New Orders: no Updated Discharge Plan: [...] Completed documented in this encounter Care Teams Car Dealer Relationship Specialty Start Date End Date Pcp, Unknown PCP - General 02/23/23 documented as of this encounter Additional Source Comments The information contained in this document represents components of the legal health record. It is not the complete legal health record.[facility]
--- OUTSIDE RECORDS SUMMARY | 2024-08-07 15:55 | XMS_ITS | Encounter Summary ---
Author Organization [facility] Address [phone] [place] [address] Care Team Providers Care Finisher Polisher Name Role Phone Pcp, Unknown Primary Care Provider Unavailabl e Reason for Visit * Auth/Cert (Routine) Specialty Diagnoses / Procedures Referred By Contac t Referred To Contact Referral ID Status Reason Start Date Expiration Date Visits Re quested Visits Authorized [id number] 1 1 Encounter Details Date Type Department Care Team (Late st Contact Info) Description 08/04/2024 7:30 PM EST Home Care Visit [facility] [address] [place], [place] [phone] Avani Simmons RN [address] [place] [address] [email or web address] SN PRN HOME VISIT Social History Tobacco [...] 3:00 AM EST Home Care Visit [facility] [address] [place], [place] [phone] Tala Alvarez RN [address], [place] [phone] 08/11/2024 1:00 AM EST Home Care Visit [facility] [address] [place] [address] Tala Alvarez RN [address] [place] [address] 08/15/2024 2:00 AM EST Home [facility] Visit [facility] [address] [place] [address] Tala Alvarez RN [address] [place] [address] 08/18/2024 1:00 AM EST Home Care Visit [facility] [address] [place] [phone] Tala Alvarez RN [address] [place] [address] 08/22/2024 1:30 AM EDT Home Care Visit [facility] [address] [place] [phone] Tala Alvarez, PAMELA [address] [place] [address] 08/25/2024 12:30 AM EDT Home Care Visit [facility] [address] [place] [phone] Tala Alvarez RN [address] [place] [address] 08/29/2024 2:00 AM EDT Home Care Visit [facility] [address] [place] [address] Tala Alvarez RN [address] [place] [address] 09/01/2024 12:30 AM EDT Home Care Visit [facility] [address] [place] [address] Tala Alvarez, PAMELA [address] [place] [address] 09/05/2024 1:30 AM EDT Home Care Visit [facility] [address] [place] [phone] Tala Alvarez RN [address] [place] [address] 09/08/2024 12:30 AM EDT Home Care Visit [facility] [address] [place] [phone] Tala Alvarez RN [address] [place] [address] 09/12/2024 1:00 AM EDT Home Care Visit [facility] [address] [place] [phone] Tala Alvarez RN [address] [place] [address] 09/15/2024 Home Care Visit [facility] [address] [place] [phone] Tala Alvarez RN [address] [place] [address] 09/19/2024 Appointment [facility] [address] [place] [phone] Tala Alvarez RN [address] [place] [address] documented as of this encounter Visit Diagnoses Not on filedocumented in this encounter Home Health Visit - Care Plan Visit Details Visit Type -SN PRN HOME VISI T Discipline -Longterm Problems Problem Description Start Date Status Goals [...] to medication errors and/or interactions Completed - Complete medication review every visit and medication reconciliation as indicated. Pharmacy information: Description: [facility] Problem: - Medication Management Goal:HH - Safe medication management, avoid unnecessary harm related to medication errors and/or interactions Completed HH - Focus of care, teaching completed and plan for next visit Problem: - Focus of Care and Teaching Goal:HH - Communication and collaboration to achieve patient goals Completed Primary Clinical Focus this Visit & Instruction Provided: SN PRN visit for leaky ostomy. device was changed this morning. Pt lying down on the couch upon arrival, abdomen was covered in stool. leak happening near umbilicus. this SN changed out appliance for a new one, applied thick half wesley shaped on the edge of device, specifically where the leak is occuring. anselmo stoma skin is intact. denies any pain. I/E when to call VNA/911. Instruction Provided to: patient and caregiver Response to Instruction/Teaching : Is partially able to teach back topics as evidenced by verbal recall. Plan for Next Visit Specific Focus & Education Needed: ostomy care New Orders: NA Updated Discharge Plan: NA HH - I/E management of care in [...] Completed documented in this encounter Care Teams Finisher Polisher Relationship Specialty Start Date End Date Pcp, Unknown PCP - General 02/23/23 documented as of this encounter Additional Source Comments The information contained in this document represents components of the legal health record. It is not the complete legal health record.[facility]
--- OUTSIDE RECORDS SUMMARY | 2024-08-07 15:55 | XMS_ITS | Encounter Summary ---
Author Organization [facility] Address [phone] [place] [address] Care Team Providers Care Peach Grower Name Role Phone Pcp, Unknown Primary Care Provider Unavailabl e Reason for Visit * Auth/Cert (Routine) Specialty Diagnoses / Procedures Referred By Contac t Referred To Contact Referral ID Status Reason Start Date Expiration Date Visits Re quested Visits Authorized [id number] 1 1 Encounter Details Date Type Department Care Team (Late st Contact Info) Description 08/04/2024 9:00 AM EST Home Care Visit [facility] [address] [place] [phone] Tala Alvarez, RN [address] [place] [address] [email or web address] SN HOME VISIT Social History Tobacco Use [...] Reading Time Taken Comments Blood Pressure 108/82 08/04/2024 9:36 AM EST Pulse 78 08/04/2024 9:36 AM EST Temperature 36.9 ??C (98.5 ??F) 08/04/2024 9:36 AM ES T Respiratory Rate 18 08/04/2024 9:36 AM EST Oxygen Saturation 99% 08/04/2024 9:36 AM EST Inhaled Oxygen Concentration - - Weight - - Height - - Body Mass Index - - documented in this encounter Plan of Treatment Upcoming Encounters Date Type Department Care Team (Late st Contact Info) Description 08/08/2024 3:00 AM EST Home [facility] Visit [facility] [address] [place] [phone] Tala Alvarez RN [address] [place] [address] [email or web address] 08/11/2024 1:00 AM EST Home Care Visit [facility] [address] [place] [phone] Tala Alvarez RN [address] [place] [address] [email or web address] 08/15/2024 2:00 AM EST Home Care Visit [facility] [address] [place] [phone] Tala Alvarez RN [address] [place] [address] [email or web address] 08/18/2024 1:00 AM EST Home Care Visit [facility] [address] [place] [phone] Tala Alvarez RN [address] [place] [address] [email or web address] 08/22/2024 1:30 AM EDT Home Care Visit [facility] [address] [place] [phone] Tala Alvarez RN [address] [place] [address] [email or web address] 08/25/2024 12:30 AM EDT Home Care Visit [facility] [address] [place] [phone] Tala Alvarez RN [address] [place] [address] [email or web address] 08/29/2024 2:00 AM EDT Home Care Visit [facility] [address] [place] [phone] Tala Alvarez, PAMELA [address] [place] [address] [email or web address] 09/01/2024 12:30 AM EDT Home Care Visit [facility] [address] [place] [phone] Tala Alvarez, PAMELA [address] [place] [address] [email or web address] 09/05/2024 1:30 AM EDT Home Care Visit [facility] [address] [place] [phone] Tala Alvarez RN [address] [place] [address] [email or web address] 09/08/2024 12:30 AM EDT Home Care Visit [facility] [address] [place] [phone] Tala Alvarez, PAMELA [address] [place] [address] [email or web address] 09/12/2024 1:00 AM EDT Home Care Visit [facility] [address] [place] [phone] Tala Alvarez, PAMELA [address] [place] [address] [email or web address] 09/15/2024 Home Care Visit [facility] [address] [place] [phone] Tala Alvarez, PAMELA [address] [place] [address] [email or web address] 09/19/2024 Appointment [facility] [address] [place], [place] [phone] Tala Alvarez, RN [address] [place] [address] [email or web address] documented as of this encounter Visit Diagnoses Not on filedocumented in this encounter Home Health Visit - Care Plan Visit Details Visit Type -SN HOME VISIT Discipline -Residential Problems Problem Description Start Date Status Goals [...] this visit HH - Ostomy Management Disciplines: Residential 11/27/2023 Active 1 goal linked to scheduled/document [...] HH - Ostomy Management Not Progressing No HH - Decrease anxiety through [...] this Visit & Instruction Provided: Pt reports was at hospital due to Vtach that required medication via IV - no med changes she is scheduled to f/u with cardiology- PCP has sent t referral as it has been over 3 years that she has sen cardiology and wasn't able to schedule an appt immediately. Ileostomy care provided, Noted scratch/rash on outer edge distally at 7 oclock position under Brava strips - bleeding on removal of pouch. Pt reports no known scratch or injury to this area. There was no leakage of BM to that area. Cleansed and stoma powder applied - pic uploaded. Ostomy care provided. Pt continues to be unable to provide own ostomy care due to essential tremor. Has not any contact from Disabled at Risk or her [facility] to discuss community supports to assume ostomy care after VNA discharge. Informed that VNA EKG TECHNICIAN will be scheduled for a one time visit to discuss options. Verbalizes understanding Instruction Provided to: patient and caregiver Response to Instruction/Teachin g: pt requires ongoing teaching due to attention deficit. Plan for Next Visit Specific Focus & Education Needed: ileostomy pouch change New Orders: no Updated Discharge Plan: when alternate care is arranged continue 2xweek HH - I/E management of care in [...] movement by discharge. Completed HH - Ostomy management (type & device): Description: OSTOMY TYPE: ILEOSTOMY DEVICE PRODUCT NAME AND SIZE: HELDER NICOLASIMS- [id number]- 1-PIECE COLOPLAST 12600. Problem:HH - Ostomy Management Goal:HH - Demonstrate/verbalize management of ostomy care and knowledge of complications Completed HH - Ostomy care Description: Specific Treatment: END LOOP ILEOSTOMY Change Device/Appliance every 2X/WEEK and PRN if leaking or lack of integrity. Problem:HH - Ostomy Management Goal:HH - Demonstrate/verbalize management of ostomy care and knowledge of complications Completed HH - I/E anxiety management, causes, treatment options and coping mechanisms Problem: - Anxiety - Actual or Risk of Impairment Goal: - Decrease anxiety through knowledge and management of triggers. Completed documented in this encounter Care Teams Peach Grower Relationship Specialty Start Date End Date Pcp, Unknown PCP - General 02/23/23 documented as of this encounter Additional Source Comments The information contained in this document represents components of the legal health record. It is not the complete legal health record.[facility]
--- OUTSIDE RECORDS SUMMARY | 2024-08-07 15:55 | XMS_ITS | Encounter Summary ---
Author Organization [facility] Address [phone] [place] [address] Care Team Providers Care Senior Field Service Engineer Name Role Phone Pcp, Unknown Primary Care Provider Unavailabl e Encounter Details Date Type Department Care Team (Late st Contact Info) Description 07/28/2024 Episode Documentatio n Update [facility] [address] [place], [place] [phone] Patience Danielle [address] [place] [address] Social History Tobacco Use Types Packs/Day Years [...] 3:00 AM EST Home Care Visit [facility] [address] [place], [place] [phone] Tala Alvarez RN [address] [place] [address] 08/11/2024 1:00 AM EST Home Care Visit [facility] [address] [place], [place] [phone] Tala Alvarez, RN [address] [place] [address] [email or web address] 08/15/2024 2:00 AM EST Home Care Visit [facility] [address] [place] [phone] Tala Alvarez, RN [address] [place] [address] [email or web address] 08/18/2024 1:00 AM EST Home Care Visit [facility] [address] [place] [phone] Tala Alvarez, RN [address] [place] [address] [email or web address] 08/22/2024 1:30 AM EDT Home Care Visit [facility] [address] [place] [phone] Tala Alvarez, RN [address] [place] [address] [email or web address] 08/25/2024 12:30 AM EDT Home Care Visit [facility] [address] [place] [phone] Tala Alvarez, RN [address] [place] [address] [email or web address] 08/29/2024 2:00 AM EDT Home Care Visit [facility] [address] [place] [phone] Tala Alvarez, RN [address] [place] [address] [email or web address] 09/01/2024 12:30 AM EDT Home Care Visit [facility] [address] [place] [phone] Tala Alvarez, RN [address] [place] [address] 09/05/2024 1:30 AM EDT Home Care Visit [facility] [address] [place] [phone] Tala Alvarez RN [address] [place] [address] [email or web address] 09/08/2024 12:30 AM EDT Home Care Visit [facility] [address] [place] [phone] Tala Alvarez RN [address] [place] [address] 09/12/2024 1:00 AM EDT Home Care Visit [facility] [address] [place] [phone] Tala Alvarez RN [address] [place] [address] 09/15/2024 Home Care Visit [facility] [address] [place] [phone] Tala Alvarez RN [address] [place] [address] 09/19/2024 Appointment [facility] [address] [place] [phone] Tala Alvarez RN [address] [place] [address] documented as of this encounter Visit Diagnoses Not on filedocumented in this encounter Care Teams Senior Field Service Engineer Relationship Specialty Start Date End Date Pcp, Unknown PCP - General 02/23/23 documented as of this encounter Additional Source Comments The information contained in this document represents components of the legal health record. It is not the complete legal health record.[facility]
--- OUTSIDE RECORDS SUMMARY | 2024-08-07 15:56 | XMS_ITS | Encounter Summary ---
Author Organization [facility] Address [phone] [place] [address] Care Team Providers Care Hot Blast Worker Name Role Phone Pcp, Unknown Primary Care Provider Unavailabl e Reason for Visit * Auth/Cert (Routine) Specialty Diagnoses / Procedures Referred By Contac t Referred To Contact Referral ID Status Reason Start Date Expiration Date Visits Re quested Visits Authorized [id number] 1 1 Encounter Details Date Type Department Care Team (Late st Contact Info) Description 08/05/2024 8:00 PM EST Home Care Visit [facility] [address] [place], [place] [phone] Lula Ordonez RN [address] [place] [address] [email or web address] SN PRN HOME VISIT Social History Tobacco [...] 3:00 AM EST Home Care Visit [facility] [address] [place], [place] [phone] Tala Alvarez RN [address] [place] [address] 08/11/2024 1:00 AM EST Home Care Visit [facility] [address] [place] [phone] Tala Alvarez, PAMELA [address] [place] [address] 08/15/2024 2:00 AM EST Home Care Visit [facility] [address] [place] [phone] Tala Alvarez, PAMELA [address] [place] [address] 08/18/2024 1:00 AM EST Home Care Visit [facility] [address] [place] [phone] Tala Alvarez RN [address] [place] [address] 08/22/2024 1:30 AM EDT Home Care Visit [facility] [address] [place] [phone] Tala Alvarez, PAMELA [address] [place] [address] 08/25/2024 12:30 AM EDT Home Care Visit [facility] [address] [place] [phone] Tala Alvarez RN [address] [place] [address] 08/29/2024 2:00 AM EDT Home Care Visit [facility] [address] [place] [phone] Tala Alvarez RN [address] [place] [address] 09/01/2024 12:30 AM EDT Home Care Visit [facility] [address] [place] [phone] Tala Alvarez RN [address] [place] [address] 09/05/2024 1:30 AM EDT Home Care Visit [facility] [address] [place] [phone] Tala Alvarez RN [address] [place] [address] 09/08/2024 12:30 AM EDT Home Care Visit [facility] [address] [place] [phone] Tala Alvarez RN [address] [place] [address] 09/12/2024 1:00 AM EDT Home Care Visit [facility] [address] [place] [phone] Tala Alvarez RN [address] [place] [address] 09/15/2024 Home Care Visit [facility] [address] [place] [phone] Tala Alvarez RN [address] [place] [address] 09/19/2024 Appointment [facility] [address] [place] [phone] Tala Alvarez RN [address] [place] [address] documented as of this encounter Visit Diagnoses Not on filedocumented in this encounter Home Health Visit - Care Plan Visit Details Visit Type -SN PRN HOME VISI T Discipline -Usp Problems Problem Description Start Date [...] this Visit & Instruction Provided: PRN visit due to leaking ostomy. Ostomy leaking toward umbilicus. Bag removed and skin cleansed. Small red area at around 7:00 on anselmo-stomal skin as previously noted. Powder and cavilon skin prep applied. Gloria ring placed around stoma with additional strip toward umbilicus to help prevent leaks. New bag placed with brava strips and patient placed warm washcloth over to help it adhere. She suggests she may have to get used to stoma as she is not sure it will be able to be reversed. She states she has a follow up appointment with surgeon in August. No further c/o chest pain since recent ER visit. Advised to notify [facility] of any further issues with ostomy. Instruction Provided to: patient Response to Instruction/Teach ing: Is fully able to teach back topics as evidenced by verbalizes understanding. Plan for Next Visit Specific Focus & Education Needed: Teaching re: ostomy leak prevention. New Orders: N/A HH - I/E management [...] emergency related situation. Completed HH - Assess skin integrity Problem:HH [...] from homecare Scheduled with variance Patient refused documented in this encounter Care Teams Hot Blast Worker Relationship Specialty Start Date End Date Pcp, Unknown PCP - General 02/23/23 documented as of this encounter Additional Source Comments The information contained in this document represents components of the legal health record. It is not the complete legal health record.[facility]
--- OUTSIDE RECORDS SUMMARY | 2024-08-07 15:56 | XMS_ITS | Encounter Summary ---
Author Organization [facility] Address [phone] [place] [address] Care Team Providers Care Manager Front Office Name Role Phone Pcp, Unknown Primary Care Provider Unavailabl e Reason for Visit * Auth/Cert (Routine) Specialty Diagnoses / Procedures Referred By Contac t Referred To Contact Referral ID Status Reason Start Date Expiration Date Visits Re quested Visits Authorized [id number] 1 1 Encounter Details Date Type Department Care Team (Late st Contact Info) Description 08/01/2024 10:45 AM EST Home Care Visit [facility] [address] [place] [address] Yehuda Moore RN [address] [place] [address] [email or web address] SN HOME VISIT Social [...] 3:00 AM EST Home Care Visit [facility] [address] [place], [place] [phone] Tala Alvarez RN [address] [place] [address] [email or web address] 08/11/2024 1:00 AM EST Home Care Visit [facility] [address] [place] [phone] Tala Alvarez RN [address] [place] [address] [email or web address] 08/15/2024 2:00 AM EST Home Care Visit [facility] [address] [place] [phone] Tala Alvarez RN [address] [place] [phone] [email or web address] 08/18/2024 1:00 AM EST Home Care Visit [facility] [address] [place] [phone] Tala Alvarez RN [address] [place] [phone] [email or web address] 08/22/2024 1:30 AM EDT Home Care Visit [facility] [address] [place] [phone] Tala Alvarez, PAMELA [address] [place] [phone] [email or web address] 08/25/2024 12:30 AM EDT Home Care Visit [facility] [address] [place] [phone] Tala Alvarez RN [address] [place] [phone] [email or web address] 08/29/2024 2:00 AM EDT Home Care Visit [facility] [address] [place] [phone] Tala Alvarez RN [address] [place] [phone] [email or web address] 09/01/2024 12:30 AM EDT Home Care Visit [facility] [address] [place] [phone] Tala Alvarez, PAMELA [address] [place] [address] 09/05/2024 1:30 AM EDT Home Care Visit [facility] [address] [place] [phone] Tala Alvarez RN [address] [place] [address] [email or web address] 09/08/2024 12:30 AM EDT Home Care Visit [facility] [address] [place] [phone] Tala Alvarez RN [address] [place] [address] 09/12/2024 1:00 AM EDT Home Care Visit [facility] [address] [place] [phone] Tala Alvarez RN [address] [place] [address] 09/15/2024 Home Care Visit [facility] [address] [place] [phone] Tala Alvarez RN [address] [place] [address] 09/19/2024 Appointment [facility] [address] [place] [phone] Tala Alvarez RN [address] [place] [address] documented as of this encounter Visit Diagnoses [...] Clinical Focus this Visit & Instruction Provided: Patient cooperative with assessment/care, vss with notable tremors and complains of mild pain to her back. Ostomy care provided: no leakage, peristoma intact. Gloria ring applied followed by liquid barrier glue, bridged with small piece of gloria to crease on umbilicus site where tends to leak more often per patient. Followed by barrier strips and collection pouch. Brown thin texture stool on the old collection pouch. Pt. reports empty pouch about 4-5/day. I/E on releasing gas from pouch and emptying when pouch is half filled to prevent leakage-verbalized understanding. Re-enforced on diet and hydration-verbalize understanding. I/E on when to call A/911. Pt. has follow up with GI specialist in August and neurology in September. Per pt. primidone not effective to control tremors-will address the issue with nuerology and seek alternative tx for management of tremors. Instruction Provided to: patient Response to Instruction/Teachin g: Is fully able to teach back topics as evidenced by verbalization. Plan for Next Visit Specific Focus & Education Needed: ostomy care/assessment New Orders: no Updated Discharge Plan: no [...] Completed - Assess pain Problem: - Pain Goal: - Frequency of pain interfering with patient's activity or movement will improve with activity or movement by discharge. Completed - Ostomy management (type & device): Description: OSTOMY TYPE: ILEOSTOMY DEVICE PRODUCT NAME AND SIZE: GLORIA IMS- [id number]- 1-PIECE COLOPLAST 85618. Problem: - Ostomy Management Goal: - Demonstrate/verbalize management of ostomy care and [...] documented in this encounter Care Teams Manager Front Office Relationship Specialty Start Date End Date Pcp, Unknown PCP - General 02/23/23 documented as of this encounter Additional Source Comments The information contained in this document represents components of the legal health record. It is not the complete legal health record.[facility]
--- OUTSIDE RECORDS SUMMARY | 2024-08-07 15:56 | XMS_ITS | Encounter Summary ---
Author Organization [facility] Address [phone] [place] [address] Care Team Providers Care Polymerization Kettle Operator Name Role Phone Pcp, Unknown Primary Care Provider Unavailabl e Encounter Details Date Type Department Care Team (Late st Contact Info) Description 07/12/2024 Episode Documentatio n Update [facility] [address] [place], [place] [phone] Social History Tobacco Use Types Packs/Day Years [...] Visit [facility] [address] [place], [place] [phone] Tala Alvarez RN [address] [place] [address] 08/11/2024 1:00 AM EST Home Care Visit [facility] [address] [place], [place] [phone] Tala Alvarez RN [address] [place] [address] 08/15/2024 2:00 AM EST Home Care Visit [facility] [address] [place] [phone] Tala Alvarez RN [address] [place] [address] [email or web address] 08/18/2024 1:00 AM EST Home Care Visit [facility] [address] [place] [phone] Tala Alvarez RN [address] [place] [address] [email or web address] 08/22/2024 1:30 AM EDT Home Care Visit [facility] [address] [place] [phone] Tala Alvarez RN [address] [place] [address] [email or web address] 08/25/2024 12:30 AM EDT Home Care Visit [facility] [address] [place] [phone] Tala Alvarez RN [address] [place] [address] [email or web address] 08/29/2024 2:00 AM EDT Home Care Visit [facility] [address] [place] [phone] Tala Alvarez RN [address] [place] [address] [email or web address] 09/01/2024 12:30 AM EDT Home Care Visit [facility] [address] [place] [phone] Tala Alvarez RN [address] [place] [address] [email or web address] 09/05/2024 1:30 AM EDT Home Care Visit [facility] [address] [place] [address] Tala Alvarez, PAMELA [address] [place] [address] 09/08/2024 12:30 AM EDT Home Care Visit [facility] [address] [place] [address] Tala Alvarez RN [address] [place] [address] [email or web address] 09/12/2024 1:00 AM EDT Home Care Visit [facility] [address] [place] [address] Tala Alvarez, PAMELA [address] [place] [address] [email or web address] 09/15/2024 Home Care Visit [facility] [address] [place] [address] Tala Alvarez, PAMELA [address] [place] [address] [email or web address] 09/19/2024 Appointment [facility] [address] [place] [address] Tala Alvarez RN [address] [place] [address] [email or web address] documented as of this encounter Visit Diagnoses Not on filedocumented in this encounter Care Teams Polymerization Kettle Operator Relationship Specialty Start Date End Date Pcp, Unknown PCP - General 02/23/23 documented as of this encounter Additional Source Comments The information contained in this document represents components of the legal health record. It is not the complete legal health record.[facility]
--- OUTSIDE RECORDS SUMMARY | 2024-08-07 15:57 | XMS_ITS | Continuity of Care Document ---
Author Organization [facility] Address [address] [place] [address]- Care Team Providers Care Day Care Director Name Role Phone Brett Su MD Primary Care Physician Encounter [facility] Date(s): 08/06/24 - 08/06/[address] [address]- Discharge Disposition: A-D/C Home Attending Physician: Bernie Quiroz DO Admitting Physician: Bernie Quiroz DO Referring Physician: Not on Staff, Referring [...] Given pneumococcal 20-valent conjugate vaccine 01/18/23 Recorded [id number] 12y+ bivalent booster vax 01/27/23 Recorded tetanus-diphtheria toxoids (Td) 07/16/21 Given SARS-CoV-2 mRNA ([id number]) vax 07/16/21 Given Influenza Virus Vaccine (oldterm) [...] Given 1Result Comment: [03/08/2017] [facility] 2Location History: [facility] 3Admin Note: center pharmacy venancio castillo 4Admin Note: per pt [facility]cvd [facility] 5Admin Note: given in clinic 6Admin Note: WING 7Admin Note: clinic ronnie Medications Albuterol (Eqv-ProAir HFA) 90 mcg/inh inhalation aerosol 2 puffs, Inhalation, Every 6 hours, PRN NEEDED FOR WHEEZING, # 8.5 each, 2 Refills, Maintenance,07/28/24 12:20:00 PM EST, [id number], 25, INHALE 2 PUFFS BY MOUTH EVERY 6 HOURS NEEDED FOR WHEEZING, 165, cm, 07/11/24 15:03:00 EST, Height, 54.3, kg, 07/11/24 15:03:00 EST, Dry Weight Start Date: 07/28/24 Status: Ordered Quantity: 8.5 Unit: each Repeat number: 1 Cavilon Advanced skin protectant 0.7ml #5015 Cavilon Advanced skin protectant 0.7ml #5015, See Instructions, # 1 each, Refills 11, Tot. Refills 11, Maintenance, use as needed for ostomy care. Dx ileostomy Z 93.2, 03/01/24 11:03:00 AM EDT, Compound Start Date: 03/01/24 Status: Ordered Quantity: 1.0 Unit: each Repeat number: 12 cyclobenzaprine 5 mg oral tablet 1 tablet = 5 mg, By Mouth, Daily at bedtime, PRN Spasm, # 14 tablet, 0 Refills, Acute 08/18/24 12:00:00 AM EST, 08/02/24 5:42:00 PM EST, [id number], Partial fill upon patient request if the prescription is for a schedule II opioid drug., 165, cm, 08/02/24 8:13:00 EST, Height, 59.7, kg, 08/02/24 8:13:00 EST, Dry Weight Start Date: 08/02/24 Stop Date: 08/18/24 Status: Ordered Quantity: 14.0 Unit: tablet Repeat number: 1 Goose neck lamp Goose neck lamp, See [...] 5 Refills, Maintenance, 03/17/24 3:59:00 PMEDT, Tablet, [facility], Partial fill upon patient request if [...] Replace Required Details, Route to Pharmacy Electronically, [id number], 163, cm, 03/17/24 15:48:00 [...] Date: 02/01/24 Status: Ordered Repeat number: 1 primidone 50 mg oral tablet 50 mg, 1, tablet, By Mouth, 3 times a day, Refills 0, Maintenance, 07/14/24 4:33:00 PM EST, Partial fill upon patient request if the prescription is for a schedule II opioid drug. Start Date: 07/14/24 Status: Ordered Repeat number: 1 sertraline 100 mg oral tablet 1 tablet = 100 mg, By Mouth, Daily, # 30 tablet, 11 Refills, Maintenance, 07/14/24 4:29:00 PM EST, Tablet, [facility], Partial fill upon patient request if the prescription is for a schedule II opioid drug., 165, cm, 07/11/24 15:03:00 EST, Height, 54.3, kg, 07/11/24 15:03:00 EST, Dry Weight Start Date: 07/14/24 Stop Date: 07/09/25 Status: Ordered Quantity: 30.0 Unit: tablet Repeat number: 12 traZODone 100 mg oral tablet 1, tablet, By Mouth, Daily at bedtime, # 30 tablet, Refills 11, Tot. Refills 11, Maintenance, 03/17/24 4:10:00 PM EDT, Route to Pharmacy Electronically, [id number], 163, cm, 03/17/24 15:48:00 [...] Exam Date Time Procedure Performing Provider Status 08/06/24 2:33 PM Chest 2 Views Frontal and Lat Cancino , T huthao T; Auth (Verified) Notes: (Chest 2 Views Frontal and Lat) Reason For Exam: Chest Pain;Other: RESULT: Chest 2 Views Frontal and Lat Chest 2 Views Frontal and Lat Reason: Chest pain COMPARISON: 08/02/2024 FINDINGS: LINES AND TUBES: None. LUNGS AND PLEURA: Clear lungs. Normal pulmonary vascularity. No pleural effusion. No pneumothorax. HEART, MEDIASTINUM AND MARCI: Heart is normal in size. Normal mediastinal and hilar contour. BONES AND SOFT TISSUES: No acute abnormality. IMPRESSION: No acute abnormality. WSN: [id number] Ordering Physician: Dewey Su Dictated By: Javier Schneider MD Dictated Date/Time: 08/06/24 3:24 pm Reviewed By: Javier Schneider MD Signed By: Javier Schneider MD Signed Date/Time: 08/06/24 3:24 pm Transcribed By: MANOJ Transcribed Date/Time: 08/06/24 3:23 pm Vital Signs Most recent to oldest [Reference Range]: 1 2 Height 160 cm (08/06/24 5:13 PM) 160 cm (08/06/24 2:30 PM) Weight 57.7 kg (08/06/24 5:13 PM) 57.7 kg (08/06/24 2:30 PM) Oxygen Saturation [94-100 %] 99 % (08/06/24 2:30 PM) Pulse Rate [55-90 bpm] 89 bpm (08/06/24 2:30 PM) Blood Pressure [90-138/55-84 mm Hg] 116/ 76mm Hg (08/06/24 2:30 PM) Respiratory Rate [16-30 br/min] 15 br/mi n *L* (08/06/24 2:30 PM) Temperature [96.8-100.4 DegF] 98.1 DegF (08/06/24 2:30 PM) Temperature Route Oral (08/06/24 2:30 PM) Dry Weight 57.7 kg (08/06/24 5:13 PM) 57.7 kg (08/06/24 2:30 PM) Weight Obtained Via Standing scale (08/06/24 5:13 PM) Standing scale (08/06/24 2:30 PM) Social History Social History Type Response Tobacco Use: 4 or less cigar ettes(less than 1/4 pack)/day in last 30 days. Other: Half a pack of cigarettes daily since age 25.. Sex Sex Representation Female (finding) Patient Care team information Care Team Personnel Name: Yoselyn Mccormick RN Position: [facility] RN Member Role: Primary Care Nurse Name: Rand Baez RN Position: S RN Member Role: Primary Care Nurse Name: Bethany Soares RN Position: S RN Member Role: Primary Care Nurse Name: Pam Harmon RN Position: S RN Member Role: Primary Care Nurse Name: Graciela Harmon RN Position: S RN Member Role: Primary Care Nurse Name: Stella Ramos RN Position: S RN Member Role: Primary Care Nurse Name: Brett Su MD Position: [facility] Physician - Primary Care Member Role: PCP Address: [address] [place] [phone]- [place] [employer]: Name: Vangie Chun RN Position: [facility] RN Member Role: Primary Care Nurse Name: Leidy Gray RN Position: S RN Member Role: Primary Care Nurse Name: Jimbo Boswell RN Position: [facility] SN RN Member Role: Primary Care Nurse Name: James Alvarez RN Position: [facility] RN Member Role: Primary Care Nurse Name: Milena Rios RN Position: [facility] RN Member Role: Primary Care Nurse Name: Oralia Ashley RN Position: [facility] RN Member Role: Primary Care Nurse Name: Phyllis Holman RN Position: [facility] RN Member Role: Primary Care Nurse Name: Raya Jewell RN Position: [facility] RN Member Role: Primary Care Nurse Name: Harini Aponte RN Position: [facility] RN Member Role: Primary Care Nurse Name: Dorita Brock RN Position: [facility] RN Member Role: Primary Care Nurse Name: Nya Liu RN Position: [facility] RN Member Role: Primary Care Nurse Name: Geri Galvan RN Position: [facility] RN Member Role: Primary Care Nurse Name: Eri Mars RN Position: [facility] RN Member Role: Primary Care Nurse Name: Lula Velasco RN Position: [facility] RN Member Role: Primary Care Nurse Name: Guerline Benavides RN Position: [facility] RN Member Role: Primary Care Nurse Name: Fatimah Galaviz RN Position: [facility] ED RN W/OE and Tasks Member Role: Primary Care Nurse Care Team Related Persons Name: KIAN TAMAYO Name: MARTA LEWIS Name: GUERRERO AGUILAR Name: ITALO CORNEJO Insurance Providers Guarantor name: NICOLAS TAMAYO Health Plan Information #: 1 Payer: [employer] Member Number: [id number] Policy Number: NA Group Number: [facility] Health Plan Information #: 2 Payer: [employer] Member Number: [id number] Policy Number: NA Group Number: NA
--- OUTSIDE RECORDS SUMMARY | 2024-08-07 15:57 | XMS_ITS | Continuity of Care Document ---
Author Organization [facility] Address [address] [place] [address]- Care Team Providers Care [employer] Person Name Role Phone Brett Su MD Primary Care Physician Encounter [facility] Date(s): 08/02/24 - 08/02/[address] [address]- Discharge Disposition: A-D/C Home Attending Physician: Dewey Su MD Admitting Physician: Dewey Su MD Referring Physician: Not on Staff, Referring MD Encounter Type: Disch ES Allergies, Adverse Reactions, Alerts Substance Criticality Severity Reaction Reaction Severity Status ibuprofen 1 Diarrhea Nausea Active Augmentin MOUTH SORES Active acetaminophen 2, [...] Given pneumococcal 20-valent conjugate vaccine 01/18/23 Recorded [id number] 12y+ bivalent booster vax 01/27/23 Recorded tetanus-diphtheria toxoids (Td) 07/16/21 Given SARS-CoV-2 mRNA (lgwntec-qlsh-pulpl) vax 07/16/21 Given Influenza Virus Vaccine (oldterm) [...] Given 1Result Comment: [03/08/2017] [facility] [place] 2Location History: [facility] 3Admin Note: [facility] venancio castillo 4Admin Note: per pt [facility]d [facility] 5Admin Note: given in clinic 6Admin Note: WING 7Admin Note: clinic ronnie Medications Albuterol (Eqv-ProAir HFA) 90 mcg/inh inhalation aerosol 2 puffs, Inhalation, Every 6 hours, PRN NEEDED FOR WHEEZING, # 8.5 each, 2 Refills, Maintenance,07/28/24 12:20:00 PM EST, [facility] STORE [id number], 25, INHALE 2 PUFFS BY MOUTH EVERY [...] Replace Required Details, Route to Pharmacy Electronically, [facility]/pharmacy #[id number], 163, cm, 03/17/24 15:48:00 [...] Refills, Maintenance, 07/14/24 4:29:00 PM EST, Tablet, [facility]/pharmacy #[id number], Partial fill upon patient [...] 4:10:00 PM EDT, Route to Pharmacy Electronically, [facility]/pharmacy #[id number], 163, cm, 03/17/24 15:48:00 [...] Exam Date Time Procedure Performing Provider Status 08/02/24 7:44 AM Chest 2 Views Frontal and Lat Madhavi Nielson; Auth (Verified) Notes: (Chest 2 Views Frontal and Lat) Reason For Exam: Chest Pain;Other: RESULT: Chest 2 Views Frontal and Lat Chest 2 Views Frontal and Lat Hx of Present Illness: pt c o chest pain was on svt on ems arrival back to normal sinus after adenosine; Reason: Other:; Chest Pain; Clinical Question(s): Other:; Order Comment: 08 02 2024 07:23:10 EST Speaking with Provider MARCELLUS COMPARISON: 07/10/2024 FINDINGS: LINES AND TUBES: None. LUNGS AND PLEURA: Clear lungs. Normal pulmonary vascularity. No pleural effusion. No pneumothorax. HEART, MEDIASTINUM AND MARCI: Heart is normal in size. Normal mediastinal and hilar contour. BONES AND SOFT TISSUES: There are several old compression fractures in the thoracic spine IMPRESSION: No acute process. WSN: [id number] Ordering Physician: Roxanne Arriaza Dictated By: Hayder Baldwin MD Dictated Date/Time: 08/02/24 8:21 am Reviewed By: Hayder Baldwin MD Signed By: Hayder Baldwin MD Signed Date/Time: 08/02/24 8:21 am Transcribed By: MANOJ Transcribed Date/Time: 08/02/24 8:18 am Vital Signs Most recent to oldest [Reference Range]: 1 2 Height 165 cm (08/02/24 8:13 AM) 165 cm (08/02/24 6:31 AM) Weight 59.7 kg (08/02/24 8:13 AM) 59.7 kg (08/02/24 6:31 AM) Oxygen Saturation [94-100 %] 96 % (08/02/24 8:13 AM) 96 % (08/02/24 6:31 AM) Pulse Rate [55-90 bpm] 76 bpm (08/02/24 8:13 AM) 78 bpm (08/02/24 6:31 AM) Blood Pressure [90-138/55-84 mm Hg] 111/ 92mm Hg (08/02/24 8:13 AM) 116/68mm Hg (08/02/24 6:31 AM) Respiratory Rate [16-30 br/min] 18 br/mi n (08/02/24 8:13 AM) 16 br/min (08/02/24 6:31 AM) Temperature [96.8-100.4 DegF] 98.0 DegF (08/02/24 6:31 AM) Mode of Delivery (Oxygen) Room air (08/02/24 8:13 AM) Room air (08/02/24 6:31 AM) Blood pressure sites Arm, right (08/02/24 8:13 AM) Arm, right (08/02/24 6:31 AM) Temperature Route Oral (08/02/24 6:31 AM) Dry Weight 59.7 kg (08/02/24 8:13 AM) 59.7 kg (08/02/24 6:31 AM) Weight Obtained Via Standing scale (08/02/24 6:31 AM) Social History Social History Type Response Tobacco Use: 4 or less cigar ettes(less than 1/4 pack)/day in last 30 days. Other: Half a pack of cigarettes daily since age 25.. Sex Sex Representation Female (finding) EKG study * Event Display: ECG 12-Lead Authored Date: [id number] Please click on pdf link to open report * Event Display: ECG 12-Lead Authored Date: [id number] Ventricular Rate: 72 BPM Atrial Rate: 72 BPM P-R Interval: 140 ms QRS Duration: 82 ms Q-T Interval: 378 ms QTC Calculation(Bazett): 413 ms P [place]: 53 degrees R [place]: 15 degrees T [place]: 24 degrees Normal sinus rhythm Possible Left atrial enlargement Borderline ECG When compared with ECG of 02-Aug-2024 06:23, No significant change was found Confirmed by LEONARD SINGLETARY MD ([id number]) on 08/02/2024 8:18:04 PM [place]: LEONARD SINGLETARY MD * Event Display: ECG 12-Lead Authored Date: [id number] Please click on pdf link to open report * Event Display: ECG 12-Lead Authored Date: [id number] Ventricular Rate: 87 BPM Atrial Rate: 87 BPM P-R Interval: 150 ms QRS Duration: 74 ms Q-T Interval: 354 ms QTC Calculation(Bazett): 425 ms P [place]: 56 degrees R [place]: 30 degrees T [place]: 3 degrees Normal sinus rhythm Possible Left atrial enlargement Borderline ECG When compared with ECG of 11-Jul-2024 15:42, No significant change was found Confirmed by LEONARD SINGLETARY MD ([id number]) on 08/02/2024 8:18:08 PM [place]: LEONARD SINGLETARY MD Note * Dewey Su MD: SCOTTIE Event Display: Patient Education Leaflets Authored Date: [id number] Tachycardia: PAT (PSVT) ?? [id number] Tachycardia: PAT (PSVT) PAT stands for paroxysmal atrial tachycardia. It's a type of paroxysmal supraventricular tachycardia (PSVT) that usually comes from a localized area of heart muscle in the top chambers of the heart called the atria. This means your heart suddenly starts beating very fast.??This may feel like your heart is racing or pounding. Because it comes on so quickly, it's often scary. But this is usually not a dangerous condition. PAT can last seconds, minutes, or hours. PAT can occur in otherwise healthy people who have used too much of a stimulant, such as tobacco orcaffeine. Caffeine is found in coffee, tea, cola, and some medicines. Some opkb-ksg-rjsaocr cold and sinus remedies, diet pills, and some herbal supplements can also overstimulate the heart. The street drugs cocaine and amphetamine are the most powerful heart stimulants. You must not use these. Overactive thyroid and some types of heart valve disorders can also cause PAT. You may have tests done to find out if this is the cause if your health care provider suspects it. Home care Follow these guidelines when caring for yourself at home: ??? Rest today. Go back to your normal activities as soon as you are feeling OK. Sometimes a long episode of PAT can leave you feeling tired and weak for a while. ??? To prevent having PAT come back, stay away from all the stimulants listed above. If you have trouble giving up coffee, switch to decaf. If you smoke, try to stop or at least switch to a filtered, low-nicotine type of cigarette while you look for a stop-smoking program. ??? If you have another episode of PAT, lie down and try to remain calm. These spells usually stop by themselves within a few minutes. ?? Follow-up care Follow up with your health care provider within the week, or as advised. ?? When to get medical advice Contact your health care provider right away if your palpitations continue longer than normal. ?? Call 911 This is the fastest and safest way to get to the emergency department. The paramedics can also start treatment on the way to the hospital, if needed. Call 911 or get medical attention right away if you have: ??? Chest pain or unusual shoulder, arm, neck, jaw, or back pain. ??? Shortness of breath. ??? Fainting. ??? Weakness???. ?? Last Reviewed Date: 2024 ?? [id number] [employer]. All rights reserved. This information is not intended as a substitute for professional medical care. Always follow your healthcare professional's instructions. ?? Patient Care team information Care Team Personnel Name: Yoselyn Mccormick RN Position: [facility] RN Member Role: Primary Care Nurse Name: Rand Baez RN Position: [facility] RN Member Role: Primary Care Nurse Name: Bethany Soares RN Position: [facility] RN Member Role: Primary Care Nurse Name: Pam Harmon RN Position: [facility] RN Member Role: Primary Care Nurse Name: Graciela Harmon RN Position: [facility] RN Member Role: Primary Care Nurse Name: Stella Ramos RN Position: [facility] RN Member Role: Primary Care Nurse Name: Brett Su MD Position: [facility] Physician - Primary Care Member Role: PCP Address: [address] [place] [address]- Telecom: Name: Vangie Chun RN Position: [facility] RN Member Role: Primary Care Nurse Name: Leidy Gray RN Position: [facility] RN Member Role: Primary Care Nurse Name: Jimbo Boswell RN Position: [facility] SN RN Member Role: Primary Care Nurse Name: James Alvarez RN Position: [facility] RN Member Role: Primary Care Nurse Name: Milena Rios RN Position: [facility] RN Member Role: Primary Care Nurse Name: Oralia Ashley RN Position: [facility] RN Member Role: Primary Care Nurse Name: Phyllis Holman RN Position: [facility] RN Member Role: Primary Care Nurse Name: Raya Jewell RN Position: [facility] RN Member Role: Primary Care Nurse Name: Harini Aponte RN Position: [facility] RN Member Role: Primary Care Nurse Name: Dorita Brock RN Position: [facility] RN Member Role: Primary Care Nurse Name: Nya Liu RN Position: [facility] RN Member Role: Primary Care Nurse Name: Geri Galvan RN Position: [facility] RN Member Role: Primary Care Nurse Name: Eri Mars RN Position: [facility] RN Member Role: Primary Care Nurse Name: Lula Velasco RN Position: [facility] RN Member Role: Primary Care Nurse Name: Guerline Benavides RN Position: [facility] RN Member Role: Primary Care Nurse Name: Fatimah Galaviz RN Position: [facility] ED RN W/OE and Tasks Member Role: Primary Care Nurse Care Team Related Persons Name: BELKIS, KIAN Name: MARTA LEWIS Name: GUERRERO AGUILAR Name: ITALO CORNEJO Insurance Providers Guarantor name: [facility] Information #: 1 Payer: [facility] [employer]/ONE CARE Member Number: [id number] Policy Number: NA Group Number: [facility] Plan Information #: 2 Payer: [facility] [employer]/ONE CARE Member Number: [id number] Policy Number: NA Group Number: NA
--- OUTSIDE RECORDS SUMMARY | 2024-08-07 15:57 | XMS_ITS | Encounter Summary ---
Author Organization [facility] Address [phone] [place] [address] Care Team Providers Care Platform Engineer Name Role Phone Pcp, Unknown Primary Care Provider Unavailabl e Reason for Visit * Auth/Cert (Routine) Specialty Diagnoses / Procedures Referred By Contac t Referred To Contact Referral ID Status Reason Start Date Expiration Date Visits Re quested Visits Authorized [id number] 1 1 Encounter Details Date Type Department Care Team (Late st Contact Info) Description 07/12/2024 8:15 AM EST Home Care Visit [facility] [address], [place] [phone] Tala Alvarez RN [address] [place] [address] [email or web address] SN PRN HOME VISIT Social History Tobacco [...] 3:00 AM EST Home Care Visit [facility] [address], [place] [phone] Tala Alvarez RN [address] [place] [address] [email or web address] 08/11/2024 1:00 AM EST Home Care Visit [facility] [address] [place] [phone] Tala Alvarez RN [address] [place] [address] [email or web address] 08/15/2024 2:00 AM EST Home Care Visit [facility] [address] [place] [phone] Tala Alvarez RN [address] [place] [phone] [email or web address] 08/18/2024 1:00 AM EST Home Care Visit [facility] [address] [place] [phone] Tala Alvarez RN [address] [place] [phone] [email or web address] 08/22/2024 1:30 AM EDT Home Care Visit [facility] [address] [place] [phone] Tala Alvarez, PAMELA [address] [place] [phone] [email or web address] 08/25/2024 12:30 AM EDT Home Care Visit [facility] [address] [place] [phone] Tala Alvarez RN [address] [place] [phone] [email or web address] 08/29/2024 2:00 AM EDT Home Care Visit [facility] [address] [place] [phone] Tala Alvarez RN [address] [place] [phone] [email or web address] 09/01/2024 12:30 AM EDT Home Care Visit [facility] [address] [place] [phone] Tala Alvarez, PAMELA [address] [place] [address] [email or web address] 09/05/2024 1:30 AM EDT Home Care Visit [facility] [address] [place] [phone] Tala Alvarez RN [address] [place] [address] [email or web address] 09/08/2024 12:30 AM EDT Home Care Visit [facility] [address] [place] [phone] Tala Alvarez RN [address] [place] [address] [email or web address] 09/12/2024 1:00 AM EDT Home Care Visit [facility] [address] [place] [phone] Tala Alvarez RN [address] [place] [address] [email or web address] 09/15/2024 Home Care Visit [facility] [address] [place] [phone] Tala Alvarez RN [address] [place] [address] [email or web address] 09/19/2024 Appointment [facility] [address] [place] [phone] Tala Alvarez RN [address] [place] [address] [email or web address] documented as of this encounter Visit Diagnoses [...] no Updated Discharge Plan: 2xweek and prn HH - I/E management of care in an urgent or emergency (ER) situation: When to call your Home Care Team/[facility], ER plans, supplies, evacuation, when to [...] Completed documented in this encounter Care Teams Platform Engineer Relationship Specialty Start Date End Date Pcp, Unknown PCP - General 02/23/23 documented as of this encounter Additional Source Comments The information contained in this document represents components of the legal health record. It is not the complete legal health record.[facility]
--- OUTSIDE RECORDS SUMMARY | 2024-08-07 15:57 | XMS_ITS | Encounter Summary ---
Author Organization [facility] Address [phone] [place] [address] Care Team Providers Care Agriculture Research Director Name Role Phone Pcp, Unknown Primary Care Provider Unavailabl e Reason for Visit * Auth/Cert (Routine) Specialty Diagnoses / Procedures Referred By Contac t Referred To Contact Referral ID Status Reason Start Date Expiration Date Visits Re quested Visits Authorized [id number] 1 1 Encounter Details Date Type Department Care Team (Late st Contact Info) Description 07/07/2024 8:15 AM EST Home Care Visit [facility] [address] [place] [phone] Tala Alvarez, RN [address] [place] [address] [email or web address] SN HOME VISIT Social History Tobacco Use [...] 3:00 AM EST Home Care Visit [facility] [address] [place] [phone] Tala Alvarez, PAMELA [address] [place] [address] 08/11/2024 1:00 AM EST Home Care Visit [facility] [address] [place] [phone] Tala Alvarez RN [address] [place] [address] 08/15/2024 2:00 AM EST Home Care Visit [facility] [address] [place] [phone] Tala Alvarez RN [address] [place] [address] 08/18/2024 1:00 AM EST Home Care Visit [facility] [address] [place] [address] Tala Alvarez, PAMELA [address] [place] [address] 08/22/2024 1:30 AM EDT Home Care Visit [facility] [address] [place] [phone] Tala Alvarez, PAMELA [address] [place] [address] 08/25/2024 12:30 AM EDT Home Care Visit [facility] [address] [place] [phone] Tala Alvarez, RN [address] [place] [address] 08/29/2024 2:00 AM EDT Home Care Visit [facility] [address] [place] [phone] Tala Alvarez, RN [address] [place] [address] 09/01/2024 12:30 AM EDT Home Care Visit [facility] [address] [place] [phone] Tala Alvarez, RN [address] [place] [address] 09/05/2024 1:30 AM EDT Home Care Visit [facility] [address] [place] [phone] Tala Alvarez, RN [address] [place] [address] 09/08/2024 12:30 AM EDT Home Care Visit [facility] [address] [place] [phone] Tala Alvarez, RN [address] [place] [address] 09/12/2024 1:00 AM EDT Home Care Visit [facility] [address] [place] [phone] Tala Alvarez, RN [address] [place] [address] 09/15/2024 Home Care Visit [facility] [address] [place] [phone] Tala Alvarez, RN [address] [place] [address] 09/19/2024 Appointment [facility] [address] [place], [place] [phone] Tala Alvarez RN [address], [place] [phone] [email or web address] documented as of this encounter Visit Diagnoses Not on filedocumented in this encounter Home Health Visit - Care Plan Visit Details Visit Type -SN HOME VISIT Discipline -Alf Problems Problem Description Start Date Status Goals [...] this visit HH - Ostomy Management Disciplines: Alf 11/27/2023 Active 1 goal linked to scheduled/document [...] Problem:HH - Focus of Care and Teaching Goal: [...] peristomal. Instruction Provided to: patient Response to Instruction/Teachin g: Is partially able to teach back topics as evidenced by verbalizes understanding. Plan for Next Visit Specific Focus & Education Needed: ileostomy care New Orders: no Updated Discharge Plan: no change HH - I/E management of care in an urgent or emergency (ER) situation: When to call your Home Care Team/[facility], ER plans, supplies, evacuation, when [...] knowledge of complications Completed HH - I/E Ostomy management: Ostomy and Stoma [...] Completed documented in this encounter Care Teams Agriculture Research Director Relationship Specialty Start Date End Date Pcp, Unknown PCP - General 02/23/23 documented as of this encounter Additional Source Comments The information contained in this document represents components of the legal health record. It is not the complete legal health record.[facility]
--- OUTSIDE RECORDS SUMMARY | 2024-08-07 15:57 | XMS_ITS | Clinical Summary ---
Author Organization [facility] Address [phone] [facility] [place] [address] Care Team Providers Care Donkey Ride Operator Name Role Phone Pcp, Unknown Primary [...] Active sertraline (ZOLOFT) 50 MG tablet Take 100 mg by mouth daily. 03/24/2024 Active primidone [...] Encounters Date Type Department Care Team Description 08/05/2024 8:00 PM EST Home Care Visit [facility] [address] [place] [address] Lula Ordonez, PAMELA SN PRN HOME VISIT 08/04/2024 7:30 PM EST Home Care Visit [facility] [address] [place] [address] Avani Simmons RN SN PRN HOME VISIT 08/04/2024 9:00 AM EST Home Care Visit [facility] [address] [place] [address] Tala Alvarez RN SN HOME VISIT 08/01/2024 10:45 AM EST Home Care Visit [facility] [address] [place] [address] Yehuda Moore RN SN HOME VISIT 07/31/2024 Episode Documentatio n Update [facility] [address] [place] [address] 07/29/2024 Home Care Visit [facility] [address] [place] [address] Lula Ordonez, PAMELA SN PRN HOME VISIT 07/28/2024 12:30 PM EST Home Care Visit [facility] [address] [place] [address] Tala Alvarez, RN SN PRN HOME VISIT 07/28/2024 Episode Documentatio n Update [facility] [address] [place] [address] ShashiDaniela 07/27/2024 8:00 PM EST Home Care Visit [facility] [address] [place] [address] Celina Ann, RN SN HOME VISIT 07/25/2024 9:45 AM EST Home Care Visit [facility] [address] [place] [address] Tala Alvarez, PAMELA SN HOME VISIT 07/22/2024 7:30 AM EST Home Care Visit [facility] [address] [place] [address] Evelin Zurita, PAMELA SN PRN HOME VISIT 07/22/2024 Home Care Visit [facility] [address] [place] [address] Ernestine Gillette, METAL SOLDERER CLINICAL COMMUNICATION 07/21/2024 8:30 AM EST Home Care Visit [facility] [address] [place] [address] Tala Alvarez, RN SN OASIS RECERTIFICATION/FUP 07/21/2024 4:25 AM EST Home Care Visit [facility] [address] [place] [address] Hawa Espinoza, PAMELA SN PRN HOME VISIT 07/21/2024 Plan of Care Documentation [facility] [address] [place] [address] 07/18/2024 9:45 AM EST Home Care Visit [facility] [address] [place] [address] Tala Alvarez, RN SN HOME VISIT 07/15/2024 1:30 AM EST Home Care Visit [facility] [address] [place], [place] [phone] Olga Finley LPN LPN HOME VISIT 07/12/2024 8:15 AM EST Home Care Visit [facility] [address] [place], [place] [phone] Tala Alvarez RN SN PRN HOME VISIT 07/12/2024 Episode Documentatio n Update [facility] [address] [place], [place] [phone] 07/11/2024 9:30 AM EST Home Care Visit [facility] [address] [place] [address] Tala Alvarez, PAMELA SN HOME VISIT 07/07/2024 8:15 AM EST Home Care Visit [facility] [address] [place] [address] Tala Alvarez RN SN HOME VISIT 07/04/2024 9:00 AM EST Home Care Visit [facility] [address] [place] [address] Olga Finley LPN LAST SORTER HOME VISIT 07/04/2024 1:30 AM EST Home Care Visit [facility] [address] [place] [address] Darlene Jolly, PAMELA SN HOME VISIT 07/03/2024 2:00 AM EST Home Care Visit [facility] [address] [place] [address] Darlene Jolly, RN SN HOME VISIT 07/02/2024 5:00 AM EST Home Care Visit [facility] [address] [place] [address] Llua Ordonez RN SN PRN HOME VISIT 06/29/2024 4:25 AM EST Home Care Visit [facility] [address] [place] [address] Hawa Espinoza, PAMELA SN PRN HOME VISIT 06/27/2024 10:30 AM EST Home Care Visit [facility] [address] [place], [place] [phone] Tala Alvarez, RN SN HOME VISIT 06/24/2024 9:00 PM EST Home Care Visit [facility] [address] [place], [place] [phone] Lula Ordonez RN SN PRN HOME VISIT 06/23/2024 1:00 AM EST Home Care Visit [facility] [address] [place] [address] Olga Finley LPN LA[facility] SORTER HOME VISIT 06/22/2024 8:15 PM EST Home Care Visit [facility] [address] [place] [address] Whit Cortez RN SN PRN HOME VISIT 06/20/2024 8:45 AM EST Home Care Visit [facility] [address] [place] [address] Eri Chambers LPN LA[facility] SORTER HOME VISIT 06/18/2024 Episode Documentatio n Update [facility] [address] [place] [address] Justin Castro 06/16/2024 8:45 AM EST Home Care Visit [facility] [address] [place] [address] Eri Chambers LPN LA[facility] SORTER HOME VISIT 06/13/2024 1:30 PM EST Home Care Visit [facility] [address] [place] [address] Tala Alvarez, RN SN PRECEPTOR CO-VISIT 06/13/2024 12:45 PM EST Home Care Visit [facility] [address] [place] [address] Yehuda Moore RN SN HOME VISIT 06/09/2024 2:00 PM EST Home Care Visit [facility] [address] [place] [address] Megan Alonso RN SN HOME VISIT 06/07/2024 8:00 AM EST Home Care Visit [facility] [address] [place] [address] Eri Chambers LPN LAST SORTER PRN HOME VISIT 06/06/2024 8:45 AM EST Home Care Visit [facility] [address] [place], [place] [phone] Eri Chambers LPN LAST SORTER HOME VISIT 06/02/2024 8:30 AM EST Home Care Visit [facility] [address] [place] [address] Eri Chambers LPN LAST SORTER HOME VISIT 05/30/2024 8:30 AM EST Home Care Visit [facility] [address] [place] [address] Eri Chambers LPN LA[facility] SORTER HOME VISIT 05/29/2024 Episode Documentatio n Update [facility] [address] [place] [address] Patience Danielle 05/24/2024 Plan of Care Documentation [facility] [address] [place] [address] 05/23/2024 11:00 AM EST Home Care Visit [facility] [address] [place] [address] Tala Alvarez RN SN OASIS RECERTIFICATION/FUP 05/19/2024 8:30 AM EST Home Care Visit [facility] [address] [place] [address] Tala Alvarez RN SN HOME VISIT 05/19/2024 Home Care Visit [facility] [address] [place] [address] Sweta Bolanos, RAYSHAWN CASE COMMUNICATION 05/18/2024 Episode Documentatio n Update [facility] [address] [place] [address] 05/17/2024 6:05 PM EST Home Care Visit [facility] [address] [place] [address] Hawa Espinoza, RN SN PRN HOME VISIT 05/16/2024 9:45 AM EST Home Care Visit [facility] [address] [place] [address] Tala Alvarez, RN SN HOME VISIT 05/13/2024 Home Care Visit [facility] [address] [place] [address] Ernestine Gillette, RN CASE COMMUNICATION 05/13/2024 Home Care Visit [facility] [address] [place] [address] Lula Ordonez, PAMELA TELEPHONE ENCOUNTER 05/13/2024 Home Care Visit [facility] [address] [place] [address] Olga Finley LPN LA[facility] SORTER PRN HOME VISIT 05/12/2024 Home Care Visit [facility] [address] [place] [address] Avani Simmons RN SN PRN HOME VISIT 05/10/2024 5:55 AM EST Home Care Visit [facility] [address] [place] [address] Hawa Espinoza, PAMELA SN PRN HOME VISIT 05/08/2024 11:15 AM EST Home Care Visit [facility] [address] [place] [address] Eri Chambers LPN LAST SORTER HOME VISIT from Last 3 Months Social History Tobacco [...] 3:00 AM EST Home Care Visit [facility] [address] [place] [address] Tala Alvarez RN [address] [place] [address] 08/11/2024 1:00 AM EST Home Care Visit [facility] [address] [place] [address] Tala Alvarez RN [address] [place] [phone] 08/15/2024 2:00 AM EST Home Care Visit [facility] [address] [place] [address] Tala Alvarez RN [address] [place] [address] 08/18/2024 1:00 AM EST Home Care Visit [facility] [address] [place] [phone] Tala Alvarez RN [address] [place] [address] 08/22/2024 1:30 AM EDT Home Care Visit [facility] [address] [place] [phone] Tala Alvarez RN [address] [place] [address] 08/25/2024 12:30 AM EDT Home Care Visit [facility] [address] [place] [phone] Tala Alvarez RN [address] [place] [address] 08/29/2024 2:00 AM EDT Home Care Visit [facility] [address] [place] [phone] Tala Alvarez RN [address] [place] [address] 09/01/2024 12:30 AM EDT Home Care Visit [facility] [address] [place] [phone] Tala Alvarez RN [address] [place] [address] 09/05/2024 1:30 AM EDT Home Care Visit [facility] [address] [place] [phone] Tala Alvarez RN [address] [place] [address] 09/08/2024 12:30 AM EDT Home Care Visit [facility] [address] [place] [phone] Tala Alvarez RN [address] [place] [address] 09/12/2024 1:00 AM EDT Home Care Visit [facility] [address] [place] [phone] Tala Alvarez RN [address] [place] [address] 09/15/2024 Home Care Visit [facility] [address] [place] [phone] Tala Alvarez RN [address] [place] [address] 09/19/2024 Appointment [facility] [address] [place] [phone] Tala Alvarez RN [address] [place] [address] Health Maintenance Due Date Last Done Comments [...] Booster 07/16/2031 07/16/2021 ZOSTER VACCINES Completed 08/06/2020, 02/0 09/2020, 06/18/2020, Additional history exists PNEUMOCOCCAL VACCINES [...] this topic Medical Devices Not on file Desilets, Randi Personal/Family Self [address] [place] [address] Desilets, Randi Personal/Family Self [address] [place] [address] Desilets, Randi Personal/Family Self [address] [place] [address] Randi Lowery Personal/Family Self [address] [place] [address] Care Teams Donkey Ride Operator Relationship Specialty Start Date End Date Pcp, Unknown PCP - General 02/23/23 Additional Source Comments The information contained in this document represents components of the legal health record. It is not the complete legal health record.[facility]
--- OUTSIDE RECORDS SUMMARY | 2024-08-07 15:57 | XMS_ITS | Encounter Summary ---
Author Organization [facility] Address [phone] [place] [address] Care Team Providers Care Senior Quality Assurance Analyst Name Role Phone Pcp, Unknown Primary Care Provider Unavailabl e Reason for Visit * Auth/Cert (Routine) Specialty Diagnoses / Procedures Referred By Contac t Referred To Contact Referral ID Status Reason Start Date Expiration Date Visits Re quested Visits Authorized [id number] 1 Encounter Details Date Type Department Care Team (Late st Contact Info) Description 07/11/2024 9:30 AM EST Home Care Visit [facility] [address] [place] [phone] Tala Alvarez, RN [address] [place] [address] [email or web address] SN HOME VISIT Social History Tobacco Use [...] 3:00 AM EST Home Care Visit [facility] [address] [place] [phone] Tala Alvarez RN [address] [place] [address] [email or web address] 08/11/2024 1:00 AM EST Home Care Visit [facility] [address] [place] [phone] Tala Alvarez RN [address] [place] [address] [email or web address] 08/15/2024 2:00 AM EST Home Care Visit [facility] [address] [place] [phone] Tala Alvarez RN [address] [place] [address] [email or web address] 08/18/2024 1:00 AM EST Home Care Visit [facility] [address] [place] [phone] Tala Alvarez RN [address] [place] [address] [email or web address] 08/22/2024 1:30 AM EDT Home Care Visit [facility] [address] [place] [phone] Tala Alvarez RN [address] [place] [address] [email or web address] 08/25/2024 12:30 AM EDT Home Care Visit [facility] [address] [place] [phone] Tala Alvarez RN [address] [place] [address] [email or web address] 08/29/2024 2:00 AM EDT Home Care Visit [facility] [address] [place] [phone] Tala Alvarez, PAMELA [address] [place] [address] [email or web address] 09/01/2024 12:30 AM EDT Home Care Visit [facility] [address] [place] [phone] Tala Alvarez, PAMELA [address] [place] [address] [email or web address] 09/05/2024 1:30 AM EDT Home Care Visit [facility] [address] [place] [phone] Tala Alvarez RN [address] [place] [address] [email or web address] 09/08/2024 12:30 AM EDT Home Care Visit [facility] [address] [place] [phone] Tala Alvarez, PAMELA [address] [place] [address] [email or web address] 09/12/2024 1:00 AM EDT Home Care Visit [facility] [address] [place] [phone] Tala Alvarez, PAMELA [address] [place] [address] [email or web address] 09/15/2024 Home Care Visit [facility] [address] [place] [phone] Tala Alvarez, PAMELA [address] [place] [address] [email or web address] 09/19/2024 Appointment [facility] [address] [place], [place] [phone] Tala Alvarez, RN [address] [place] [address] [email or web address] Compliance documented as of this encounter Visit Diagnoses Not on filedocumented in this encounter Home Health Visit - Care Plan Visit Details Visit Type -SN HOME VISIT Discipline -Long-Term Problems Problem Description Start Date Status Goals [...] this visit HH - Ostomy Management Disciplines: Long-Term 11/27/2023 Active 1 goal linked to scheduled/document [...] Intervention Associated Problem/Goal Status Variance Visit Notes - I/E medication management: administration, purpose, dosages, [...] ileostomy. Instruction Provided to: patient Response to Instruction/Teachin [...] Completed HH - Diet: Description: regular diet Problem: - [...] Completed documented in this encounter Care Teams Senior Quality Assurance Analyst Relationship Specialty Start Date End Date Pcp, Unknown PCP - General 02/23/23 documented as of this encounter Additional Source Comments The information contained in this document represents components of the legal health record. It is not the complete legal health record.[facility]
--- OUTSIDE RECORDS SUMMARY | 2024-08-07 15:57 | XMS_ITS | Encounter Summary ---
Author Organization [facility] Address [phone] [place] [address] Care Team Providers Care Swing Grinder Name Role Phone Unknown, Unknown Primary Care Provider Brett Whitaker MD Primary Care Provider [phone] Pcp, Unknown Primary Care Provider Unavailabl e Encounter Details Date Type Department Care Team (Late st Contact Info) Description 01/21/2023 Transcribe Orders [facility] Specimen Processing [address] [place] [address] Stewart Carlson MD [address] [facility], [address] [place] [address] Anemia, unspecified type (Primary Dx) Social History [...] 3:00 AM EST Home Care Visit [facility] [address] [place], [place] [phone] Tala Alvarez RN [address] [place] [address] 08/11/2024 1:00 AM EST Home Care Visit [facility] [address] [place], [place] [phone] Tala Alvarez, PAMELA [address] [place] [address] 08/15/2024 2:00 AM EST Home Care Visit [facility] [address] [place] [phone] Tala Alvarez, RN [address] [place] [address] 08/18/2024 1:00 AM EST Home Care Visit [facility] [address] [place] [phone] Tala Alvarez, PAMELA [address] [place] [address] 08/22/2024 1:30 AM EDT Home Care Visit [facility] [address] [place] [phone] Tala Alvarez, PAMELA [address] [place] [address] 08/25/2024 12:30 AM EDT Home Care Visit [facility] [address] [place] [phone] Tala Alvarez, PAMELA [address] [place] [address] 08/29/2024 2:00 AM EDT Home Care Visit [facility] [address] [place] [phone] Tala Alvarez, RN [address] [place] [address] 09/01/2024 12:30 AM EDT Home Care Visit [facility] [address] [place] [phone] Tala Alvarez, RN [address] [place] [address] 09/05/2024 1:30 AM EDT [facility] [address] [place] [phone] Tala Alvarez RN [address] [place] [address] 09/08/2024 12:30 AM EDT Home Care Visit [facility] [address] [place] [phone] Tala Alvarez RN [address] [place] [address] 09/12/2024 1:00 AM EDT Home Care Visit [facility] [address] [place] [phone] Tala Alvarez RN [address] [place] [address] 09/15/2024 [facility] [address] [place] [phone] Tala Alvarez, PAMELA [address] [place] [address] 09/19/2024 Appointment [facility] [address] [place] [phone] Tala Alvarez RN [address] [place] [address] documented as of this encounter Results * Vitamin B12 (01/21/2023 5:50 AM EDT) VITAMIN B12 1,019 232 - 1,245 pg/mL [facility] 01/21/2023 5:50 AM EDT 01/21/2023 12:07 PM EDT Stewart Carlson MD LAB BLOOD ORDERABLES Performing Organization Address [facility] Co de Phone Number [address] [address] * (ABNORMAL) Iron and iron binding capacity (01/21/2023 5:50 AM EDT) IRON 67 30 - 160 ug/dL [facility] IRON BINDING CAPACITY 222(L) 228 - 428 ug/dL [facility] TRANSFERRIN SATURAT. 30 15 - 50 % [facility] 01/21/2023 5:50 AM EDT 01/21/2023 12:07 PM EDT Stewart Carlson MD LAB BLOOD ORDERABLES Performing Organization Address [facility] Co de Phone Number [address] [address] * Ferritin (01/21/2023 5:50 AM EDT) FERRITIN 56 13 - 150 ug/L [facility] 01/21/2023 5:50 AM EDT 01/21/2023 12:07 PM EDT Stewart Carlson MD LAB BLOOD ORDERABLES Performing Organization Address [facility] Co de Phone Number [address] [address] * (ABNORMAL) Folate (01/21/2023 5:50 AM EDT) FOLIC ACID 3.0(L) 4.2 - 19.9 ng/mL [facility] 01/21/2023 5:50 AM EDT 01/21/2023 12:07 PM EDT Stewart Carlson MD LAB BLOOD ORDERABLES Performing Organization Address [facility]/ZIP Co de Phone Number [address] [address] * (ABNORMAL) CBC (01/21/2023 5:50 AM EDT) WBC 6.33 4.00 - 11.00 K/uL [facility] RBC 2.92(L) 3.72 - 5.30 M/uL [facility] HGB 8.4(L) 11.4 - 15.9 g/dL [facility] HCT 27.7(L) 34.2 - 46.8 % [facility] PLT 228 140 - 430 K/uL [facility] MCV 94.9 78.0 - 97.0 fL [facility] MCH 28.8 25.0 - 33.0 pg [facility] MCHC 30.3(L) 32.0 - 36.0 g/dL [facility] RDW 16.9(H) 11.0 - 16.0 % [facility] MPV 11.5 8.4 - 12.8 [facility] 01/21/2023 5:50 AM EDT 01/21/2023 12:07 PM EDT Stewart Carlson MD LAB BLOOD ORDERABLES [facility] [address] [place] [address] documented in this encounter Visit Diagnoses Diagnosis Anemia, unspecified type- Primary documented in this encounter Care Teams Swing Grinder Relationship Specialty Start Date End Date Unknown, Unknown, PCP - General 01/21/23 01/27/23 Brett Su MD [address] [place] [address] PCP - General Internal Medicine 01/28/23 01/28/23 Pcp, Unknown PCP - General 02/23/23 documented as of this encounter Additional Source Comments The information contained in this document represents components of the legal health record. It is not the complete legal health record.[facility]
== END 2024-08-07 15:01 | disposition home or self-care (01) ==
PROVIDERS: PCP Internal Medicine; Visit Provider Nurse Practitioner Family
DX: M62.89 Other specified disorders of muscle (principal); M54.16 Radiculopathy, lumbar region; M47.817 Spondylosis without myelopathy or radiculopathy, lumbosacral region; N30.10 Interstitial cystitis (chronic) without hematuria; R39.89 Other symptoms and signs involving the genitourinary system; Z96.82 Presence of neurostimulator
CPT/HCPCS: 99213; G2211

== ENCOUNTER → 2024-08-07 13:52 | Outpatient (BNVA) | payer OTHER, SELFPAY | PROVIDERS: PCP Internal Medicine; Visit Provider Nurse Practitioner Family | DX: M62.89 Other specified disorders of muscle (principal); M54.16 Radiculopathy, lumbar region; M47.817 Spondylosis without myelopathy or radiculopathy, lumbosacral region; N30.10 Interstitial cystitis (chronic) without hematuria; R39.89 Other symptoms and signs involving the genitourinary system; Z96.82 Presence of neurostimulator | CPT/HCPCS: 99212 ==

== ENCOUNTER 2024-08-08 18:15 | Emergency (ER) | payer OTHER, SELFPAY ==
--- NOTE | 2024-08-08 | ECG_ITS ---
Test Reason : CHEST PAIN Blood Pressure : */* mmHG Vent. Rate : 82 BPM Atrial Rate : 82 BPM P-R Int : 126 ms QRS Dur : 88 ms QT Int : 384 ms P-R-T Axes : 44 16 15 degrees QTcB Int : 448 ms Normal sinus rhythm Possible Left atrial enlargement Borderline ECG When compared with ECG of 30-Apr-2024 15:58, No significant change was found Referred By: Generic ED Physician Electronically Signed By: Obinna Ortiz
--- NOTE | ~2024-08-08 | XR_ITS ---
CLINICAL HISTORY: chest pain 2 view chest x-ray Comparison: CR/SR - XR CHEST 2V - 04/30/24 16:26 EST Findings: The lungs are clear. Heart size is normal. No acute fracture.Chronic compression deformities of the thoracic spine again noted. IMPRESSION: 1. No acute findings. This document has been electronically signed by: Aliyah Nicole MD on 08/08/2024 19:06:30
[2024-08-08 18:26] VITALS: BP 113/65; PULSE 76; RESP 16; TEMP 36.4; O2SAT 100; BMI 20.8
--- NOTE | 2024-08-08 18:26 | ED_ITS ---
HPI - General Adult General Chief complaint: Chest Pain Stated complaint: chest pain, anxiety, SOB Time Seen by Provider: 08/08/24 21:27 Source: patient Mode of arrival: ambulatory Limitations: no limitations History of Present Illness ED Provider: Ileana GIBBONS narrative: 59-year-old female with past medical history of interstitial cystitis, SVT,ulcerative colitis with colostomy, chronic abdominal/pelvic pain, anxiety, depression presenting for palpitations. Pt states that earlier this evening she experienced two episodes of palpitation. Patient has had similar episodes in the past.These episodes were short lived and associated with chest tightness however she denies chest pain, diaphoresis, lightheadedness/dizziness. She denies recent travel and does not have a history of dvt or pe. Related Data Home Medications ?Medication ?Instructions ?Recorded ?Confirmed albuterol sulfate 90 mcg/actuation 2 puff inhalation Q4-6H PRN 04/25/20 03/09/24 aerosol inhaler (ProAir HFA) Shortness Of Breath adalimumab 40 mg/0.4 mL 40 mg subcut .Q 14 DAYS 06/21/20 03/09/24 subcutaneous pen kit metoprolol succinate 25 mg 12.5 mg PO DAILY 08/08/21 03/09/24 tablet,extended release 24 hr omeprazole 20 mg capsule,delayed 20 mg PO DAILY 11/03/21 03/09/24 release ondansetron 4 mg disintegrating 4 mg PO BID PRN nausea/vomiting 11/17/22 03/09/24 tablet trazodone 50 mg tablet 50 mg PO BEDTIME 10/15/23 03/09/24 lorazepam 0.5 mg tablet mg PO 04/07/24 trazodone 100 mg tablet 100 mg PO BEDTIME 04/07/24 amitriptyline 10 mg tablet 10 mg PO BEDTIME 06/13/24 primidone 50 mg tablet 50 mg PO BID 06/13/24 pregabalin 100 mg capsule mg PO 08/07/24 sertraline 100 mg tablet mg PO DAILY 08/07/24 Previous Rx's ?Medication ?Instructions ?Recorded phenazopyridine 200 mg tablet 200 mg PO TID PRN urinary burning 01/29/24 (Pyridium) #20 tabs belladonna alkaloids-opium 16.2 1 supp VT .nightly 30 days #30 ea 10/22/24 mg-30 mg rectal suppository belladonna alkaloids-opium 16.2 1 supp VT DAILY PRN pain 30 days 04/05/24 mg-60 mg rectal suppository #30 ea ferrous sulfate 325 mg (65 mg 325 mg PO DAILY #30 tabs 04/20/24 iron) tablet lidocaine 5 % topical patch 1 patch topical DAILY #30 ea 04/20/24 oxycodone 5 mg capsule 5 mg PO BID PRN pain (scale score 06/18/24 7-10) 3 days #6 caps oxycodone 5 mg tablet 5 mg PO Q8H PRN pain #6 tabs 06/19/24 cyclobenzaprine 5 mg tablet 5 mg PO BEDTIME PRN muscle spasm 07/08/24 #14 tabs lidocaine 5 % topical patch 1 patch topical DAILY PRN pain #15 07/08/24 ea oxycodone 5 mg tablet 5 mg PO TID PRN pain 30 days #90 07/14/24 tabs oxybutynin chloride 5 mg 5 mg PO DAILY 30 days #30 tabs 07/17/24 tablet,extended release 24 hr Allergies Allergy/AdvReac Type Severity Reaction Status Date / Time amoxicillin [From AUGMENTIN] Allergy Severe SEVERE Verified 08/08/24 18:28 DIARRHEA Bupumog-FDU-UtU Reductase Allergy Intermediate muscle Verified 08/08/24 18:28 Inhibitor aches, [MQLLSCO-FTE-HRH REDUCTASE cramps INHIBITOR] acetaminophen [ACETAMINOPHEN] AdvReac Severe GI upset. Verified 08/08/24 18:28 Pt confirmed NOT allergic to oxycodone NSAIDS (Non-Steroidal AdvReac Severe Gastrointestinal Verified 08/08/24 18:28 Anti-Inflamma Upset Review of Systems 2 Review of Systems: palpitations and chest tightness Yes all other systems are reviewed and are negative [facility] Past Medical History Attestation statement: The following information was validated with the patient. [facility] Narrative: interstitial cystitis, ulcerative colitis with colostomy, chronic abdominal/pelvic pain, anxiety, depression Source: old records reviewed Medical History Sacral nerve stimulator present Colostomy in place On beta morgan at home Anxiety SVT (supraventricular tachycardia) Depression Back pain History of gastrostomy tube placement Hx of ulcerative colitis Hx of cystitis History of anxiety Asthma Elevated cholesterol Surgical History History of tubal ligation History of endometrial ablation History of bladder surgery Social History Social History Household Members: Significant Other Housing: Apartment Are you a primary zoo caretaker to a significant other at home: No Do you presently have visiting nurse or other home services: No Alcohol intake: former Patient Tobacco Use Status: Current everyday Tobacco user Tobacco use type: Cigarette Cigarettes Per Day: 4 Years Smoked: 22 Smoked in Last 30 Days: Yes Use of substances other than those prescribed or required for medical reasons: No Advance Directives: No Advance Directives Information Provided: No Do you have a plan to hurt others: No Plan Patient : No Current occupational status: disabled Physical Exam ED Vital Signs: Vital Signs - 24 hr 08/08/24 18:26 08/08/24 21:28 08/08/24 22:39 Temperature 97.6 F 98.1 F Pulse Rate 76 61 71 Respiratory Rate 16 15 15 Blood Pressure 113/65 129/65 125/68 Pulse Oximetry 100 97 100 Oxygen Delivery Method Room Air Room Air Room Air 08/08/24 23:56 Temperature 97.8 F Pulse Rate 77 Respiratory Rate 16 Blood Pressure 126/68 Pulse Oximetry 100 Oxygen Delivery Method Room Air BMI result Body Mass Index 20.8 well appearing female in NAD a&ox4; no focal neurologic deficits lungs ctab ns1s2 rrr abd soft nontender nondistended with well appearing ostomy no lower ext edema or calf tenderness Course Course Course Narrative: This is a rapid medical exam performed by Mckenzie Piper NP: Additional HPI, ROS, PE not included below will be deferred to primary provider. Patient is a 59-year-old female presenting with complaint of chest pain, shortnes of breath and anxiety. Plan: EKG, labs, CXR Medications Administered Discontinued Medications Generic Name Dose Route Start Last Admin Trade Name Freq PRN Reason Stop Dose Admin Oxycodone HCl 5 mg 08/08/24 23:47 08/09/24 00:00 Oxycodone Hcl Immed Release 5 Mg Tablet PO 08/08/24 23:48 5 mg ONCE ONE Administration Medical Decision Making Medical Decision Making MDM Narrative: 59yo female presenting for palpitations - I am concerned for the following: anxiety, arrhythmia, electrolyte/metabolic disturbance, costochondritis, viral uri, pna , acid reflux, SVT - low suspicion for ACS, pe given hpi and reassuring exam; low heart score and low risk for pe per wells criteria - labs and imaging ordered Lab and imaging interpretation: - no signs of ischemia on ecg - negative trop x2, normal tsh, electrolytes wnl, stable h&H, no white count - I do not appreciate focal consolidation or pneumothorax on patient's chest x- ray in the radiology impression is negative On reassessment patient is still well-appearing. At this time I have no concerns for severe life-threatening pathology. Symptoms could have been secondary to acid reflux versus anxiety versus benign arrhythmia. I considered admission however given patient's history of SVT I feel that she can be discharged with close follow up. I educated her on vagal maneuvers she can perform at home if she experiences prolonged episode of palpitations however she should still call EMS. I gave her instructions to follow up with her PCP and strict return precautions Lab Data 08/08/24 18:41 08/08/24 18:41 Labs: Lab Results 08/08/24 08/08/24 08/08/24 Range/Units 18:41 21:38 21:59 WBC 7.0 (4.8-10.8) X10*3/uL RBC 3.98 L (4.20-5.50) X10*6/uL Hgb 8.2 L (12.0-16.0) g/dl Hct 27.3 L (37.0-47.0) % MCV 68.6 L (80.0-98.0) fL MCH 20.6 L (27.0-33.0) pg MCHC 30.0 L (31.0-35.0) g/dl RDW 18.2 H (11.0-16.0) % Plt Count 273 (160-400) X10*3/uL MPV 9.2 L (9.4-12.3) fL Immature Gran % (Auto) 0.3 (0.0-0.4) % Neut % (Auto) 51.0 (45-73) % Lymph % (Auto) 38.3 (20-40) % Routt % (Auto) 8.5 (2-11) % Eos % (Auto) 1.2 (0-4) % Baso % (Auto) 0.7 (0-2) % Lymph # (Auto) 2.7 (1.2-4.9) X10*3/uL Routt # (Auto) 0.6 (0.1-1.2) X10*3/uL Eos # (Auto) 0.1 (0.0-0.4) X10*3/uL Baso # (Auto) 0.1 (0.0-0.2) X10*3/uL Abs Immat Gran (auto) 0.02 (0.00-0.03) X10*3/uL Absolute Neuts (auto) 3.6 (2.0-8.3) x10*3/uL Absolute Nucleated RBC 0.000 (0.0-0.012) X10*3/uL Nucleated RBC % (auto) 0.0 (0.0-0.2) /100WBC PT 11.1 (10.9-12.4) SEC INR 1.0 (0.9-1.1) D-Dimer High Sensitivty NG/ML VBG pH 7.38 (7.32-7.43) VBG pCO2 41 mmHg VBG pO2 104 mmHg VBG HCO3 25 (22-26) mmol/L VBG O2 Saturation 99.0 % VBG Base Excess 0.1 mmol/L Sodium 138 (135-145) mmol/L Potassium 3.6 (3.3-5.1) mmol/L Chloride 105 (96-108) mmol/L Carbon Dioxide 24 (22-29) mmol/L Anion Gap 13 (12-20) BUN 20 H (9-16) mg/dL Creatinine 0.77 (0.5-1.4) mg/dL Estim Creat Clear Calc 70.4 Estimated GFR > 60 Random Glucose 72 (60-115) mg/dL Calcium 9.1 (8.4-10.2) mg/dL Total Bilirubin 0.1 (0.0-1.0) mg/dL AST 19 (5-31) U/L ALT 8 (0-31) U/L Alkaline Phosphatase 113 (39-117) U/L Troponin I High Sens < 2.7 < 2.7 (<3.5-17.0) ng/L B-Natriuretic Peptide 24 (<100) pg/mL Total Protein 7.5 (6.5-8.0) g/dL Albumin 3.9 (3.5-5.0) g/dL TSH (0.32-4.0) uIU/mL Beta HCG, Quant mIU/mL Influenza Type A (PCR) NEGATIVE (Negative) Influenza Type B (PCR) NEGATIVE (Negative) RSV RNA Qual (PCR) NEGATIVE (Negative) SARS-CoV-2 RNA (RT-PCR) NEGATIVE (Negative) 08/08/24 Range/Units 22:25 WBC (4.8-10.8) X10*3/uL RBC (4.20-5.50) X10*6/uL Hgb (12.0-16.0) g/dl Hct (37.0-47.0) % MCV (80.0-98.0) fL MCH (27.0-33.0) pg MCHC (31.0-35.0) g/dl RDW (11.0-16.0) % Plt Count (160-400) X10*3/uL MPV (9.4-12.3) fL Immature Gran % (Auto) (0.0-0.4) % Neut % (Auto) (45-73) % Lymph % (Auto) (20-40) % Routt % (Auto) (2-11) % Eos % (Auto) (0-4) % Baso % (Auto) (0-2) % Lymph # (Auto) (1.2-4.9) X10*3/uL Routt # (Auto) (0.1-1.2) X10*3/uL Eos # (Auto) (0.0-0.4) X10*3/uL Baso # (Auto) (0.0-0.2) X10*3/uL Abs Immat Gran (auto) (0.00-0.03) X10*3/uL Absolute Neuts (auto) (2.0-8.3) x10*3/uL Absolute Nucleated RBC (0.0-0.012) X10*3/uL Nucleated RBC % (auto) (0.0-0.2) /100WBC PT (10.9-12.4) SEC INR (0.9-1.1) D-Dimer High Sensitivty < 150 NG/ML VBG pH (7.32-7.43) VBG pCO2 mmHg VBG pO2 mmHg VBG HCO3 (22-26) mmol/L VBG O2 Saturation % VBG Base Excess mmol/L Sodium (135-145) mmol/L Potassium (3.3-5.1) mmol/L Chloride (96-108) mmol/L Carbon Dioxide (22-29) mmol/L Anion Gap (12-20) BUN (9-16) mg/dL Creatinine (0.5-1.4) mg/dL Estim Creat Clear Calc Estimated GFR Random Glucose (60-115) mg/dL Calcium (8.4-10.2) mg/dL Total Bilirubin (0.0-1.0) mg/dL AST (5-31) U/L ALT (0-31) U/L Alkaline Phosphatase (39-117) U/L Troponin I High Sens (<3.5-17.0) ng/L B-Natriuretic Peptide (<100) pg/mL Total Protein (6.5-8.0) g/dL Albumin (3.5-5.0) g/dL TSH 1.57 (0.32-4.0) uIU/mL Beta HCG, Quant < 2 mIU/mL Influenza Type A (PCR) (Negative) Influenza Type B (PCR) (Negative) RSV RNA Qual (PCR) (Negative) SARS-CoV-2 RNA (RT-PCR) (Negative) Discharge Plan Discharge Clinical Impression: Palpitations Patient Disposition: Home, Self-Care Instructions: Heart Palpitations (DC), Valsalva Maneuver (ED) Additional Instructions: Please follow up with your primary care provider in the next 24-48 hours. If you develop any new or worse symptoms please return to emergency depart. Prescriptions: No Action phenazopyridine [Pyridium] 200 mg tablet 200 mg PO TID PRN (Reason: urinary burning) Qty: 20 1RF Rx Instructions: use with food belladonna alkaloids-opium 16.2-30 mg suppository 1 supp VT .nightly 30 Days Qty: 30 0RF Rx Instructions: Partial Fill upon patient request.. belladonna alkaloids-opium 16.2-60 mg suppository 1 supp VT DAILY PRN (Reason: pain) 30 Days Qty: 30 0RF Rx Instructions: Partial Fill upon patient request. oxycodone 5 mg tablet 5 mg PO TID PRN (Reason: pain) 30 Days Qty: 90 0RF Rx Instructions: Partial Fill upon patient request. oxybutynin chloride 5 mg tablet extended release 24hr 5 mg PO DAILY 30 Days Qty: 30 1RF albuterol sulfate [ProAir HFA] 90 mcg/actuation Hfa Aerosol Inhaler 2 puff INHALATION Q4-6H PRN (Reason: Shortness Of Breath) trazodone 50 mg tablet 50 mg PO BEDTIME lidocaine 5 % adhesive patch,medicated 1 patch topical DAILY Qty: 30 0RF Rx Instructions: leave on most painful area for up to 12 hrs ferrous sulfate 325 mg (65 mg iron) tablet 325 mg PO DAILY Qty: 30 0RF cyclobenzaprine 5 mg tablet 5 mg PO BEDTIME PRN (Reason: muscle spasm) Qty: 14 0RF lidocaine 5 % adhesive patch,medicated 1 patch topical DAILY PRN (Reason: pain) Qty: 15 0RF Rx Instructions: leave on most painful area for up to 12 hrs oxycodone 5 mg capsule 5 mg PO BID PRN (Reason: pain (scale score 7-10)) 3 Days Qty: 6 0RF Rx Instructions: Partial Fill upon patient request. oxycodone 5 mg tablet 5 mg PO Q8H PRN (Reason: pain) Qty: 6 0RF Rx Instructions: Partial Fill upon patient request. adalimumab 40 mg/0.4 mL pen injector kit 40 mg subcut .Q 14 DAYS metoprolol succinate 25 mg tablet extended release 24 hr 12.5 mg PO DAILY omeprazole 20 mg capsule,delayed release(DR/EC) 20 mg PO DAILY ondansetron 4 mg tablet,disintegrating 4 mg PO BID PRN (Reason: nausea/vomiting) amitriptyline 10 mg tablet 10 mg PO BEDTIME primidone 50 mg tablet 50 mg PO BID lorazepam 0.5 mg tablet PO trazodone 100 mg tablet 100 mg PO BEDTIME sertraline 100 mg tablet PO DAILY pregabalin 100 mg capsule PO Print Language: Yakut
[2024-08-08 18:30] VITALS: BP 121/63; PULSE 85; O2SAT 97
[2024-08-08 18:46] LABS: MANUAL DIFF FLAG NO
[2024-08-08 18:50] LABS: Basophils Absolute Auto 0.1 X10*3/uL (0.0-0.2); Basophils Percent Auto 0.7 % (0-2); Eosinophils Absolute Auto 0.1 X10*3/uL (0.0-0.4); Eosinophils Percent Auto 1.2 % (0-4); Hematocrit 27.3 % (37.0-47.0); Hemoglobin 8.2 g/dl (12.0-16.0); Imm Gran Abs Auto 0.02 X10*3/uL (0.00-0.03); Imm Gran Pct Auto 0.3 % (0.0-0.4); Lymphocytes Absolute Auto 2.7 X10*3/uL (1.2-4.9); Lymphocytes Percent Auto 38.3 % (20-40); Mean Corpuscular Hemoglobin 20.6 pg (27.0-33.0); Mean Corpuscular Volume 68.6 fL (80.0-98.0); Mean Platelet Volume 9.2 fL (9.4-12.3); Monocytes Absolute Auto 0.6 X10*3/uL (0.1-1.2); Monocytes Percent Auto 8.5 % (2-11); Neutrophils Absolute Auto 3.6 x10*3/uL (2.0-8.3); Platelet Count 273 X10*3/uL (160-400); Red Blood Count 3.98 X10*6/uL (4.20-5.50); Red Cell Distribution Width 18.2 % (11.0-16.0)
[2024-08-08 18:56] LABS: Prothrombin Time 11.1 SEC (10.9-12.4)
[2024-08-08 19:04] LABS: Alanine Aminotransferase 8 U/L (0-31); Albumin Level 3.9 g/dL (3.5-5.0); Alkaline Phosphatase 113 U/L (39-117); Anion Gap 13 (12-20); Aspartate Amino Transferase 19 U/L (5-31); Bilirubin Total 0.1 mg/dL (0.0-1.0); Blood Urea Nitrogen 20 mg/dL (9-16); Calcium 9.1 mg/dL (8.4-10.2); Carbon Dioxide 24 mmol/L (22-29); Chloride 105 mmol/L (96-108); Creatinine Clr Calc Pharmacy 70.4; Estimated Glomerular Filt Rate > 60; Glucose Random 72 mg/dL (60-115); Potassium 3.6 mmol/L (3.3-5.1); Sodium 138 mmol/L (135-145); Total Protein 7.5 g/dL (6.5-8.0)
[2024-08-08 19:13] LABS: Troponin-I High Sensitivity < 2.7 ng/L (<3.5-17.0)
[2024-08-08 19:27] LABS: Influenza A PCR NEGATIVE (Negative); Influenza B PCR NEGATIVE (Negative); Resp Syncy Virus RNA Qual PCR NEGATIVE (Negative); SARS COV2 PCR INHOUSE NEGATIVE (Negative)
[2024-08-08 21:28] VITALS: BP 129/65; PULSE 61; RESP 15; TEMP 36.7; O2SAT 97
[2024-08-08 22:04] LABS: VBG Base Excess 0.1 mmol/L; VBG HCO3 25 mmol/L (22-26); VBG pCO2 41 mmHg; VBG pH 7.38 (7.32-7.43); VBG pO2 104 mmHg
[2024-08-08 22:04] LABS: Venous Blood Gas Refer to POC result
[2024-08-08 22:13] LABS: B Type Natriuretic Peptide 24 pg/mL (<100); Troponin-I High Sensitivity < 2.7 ng/L (<3.5-17.0)
[2024-08-08 22:39] VITALS: BP 125/68; PULSE 71; RESP 15; O2SAT 100
[2024-08-08 22:40] LABS: D Dimer High Sensitivity < 150 NG/ML
[2024-08-08 23:03] LABS: TSH reflex Free T4 1.57 uIU/mL (0.32-4.0)
[2024-08-08 23:56] VITALS: BP 126/68; PULSE 77; RESP 16; TEMP 36.6; O2SAT 100
[2024-08-09] MEDS: oxyCODONE HCl Immed Release 5 MG TABLET PO
[2024-08-09 00:03] LABS: HCG Quantitative < 2 mIU/mL
[2024-08-09 00:27] VITALS: BP 126/68; PULSE 77; RESP 16; TEMP 36.6; O2SAT 100
== END 2024-08-09 00:28 | disposition home or self-care (01) ==
PROVIDERS: Registered Nurse Emergency; Emergency Provider Student in an Organized Health Care Education/Training Program; PCP Internal Medicine
DX: R00.2 Palpitations (principal); F41.9 Anxiety disorder, unspecified; R07.89 Other chest pain; R06.02 Shortness of breath; R10.2 Pelvic and perineal pain; F17.210 Nicotine dependence, cigarettes, uncomplicated; Z79.899 Other long term (current) drug therapy; Z03.818 Encounter for observation for suspected exposure to other biological agents ruled out
CPT/HCPCS: 0241U; 36415; 71046; 80053; 82803; 83880; 84443; 84484; 84702; 85025; 85379; 85610; 93005; 99283; 99285

== ENCOUNTER → 2024-08-08 18:21 | Outpatient (BNV) | payer OTHER, SELFPAY | PROVIDERS: Emergency Provider Student in an Organized Health Care Education/Training Program; PCP Internal Medicine; Visit Provider Internal Medicine Cardiovascular Disease | DX: R07.9 Chest pain, unspecified (principal); R94.31 Abnormal electrocardiogram [ECG] [EKG] | CPT/HCPCS: 93010 ==

== ENCOUNTER → 2024-08-08 18:28 | Outpatient (BNV) | payer OTHER, SELFPAY | PROVIDERS: Visit Provider Student in an Organized Health Care Education/Training Program | DX: R07.9 Chest pain, unspecified (principal) | CPT/HCPCS: 71046 ==

== ENCOUNTER 2024-08-11 11:15 | Outpatient (AMB) | payer OTHER, SELFPAY ==
--- NOTE | 2024-08-11 11:15 | MHC.OFFVIS ---
Intake Visit Reasons: Hydrodistention discussion Intake Note: Pt presents to the office today as a telehealth visit for hydrodistention discussion. Allergies amoxicillin [From AUGMENTIN] Allergy (Severe, Verified 08/14/24 16:20) SEVERE DIARRHEA Wfrzslp-MSE-TtJ Reductase Inhibitor [EAEFIFW-CXJ-JZC REDUCTASE INHIBITOR] Allergy (Intermediate, Verified 08/14/24 16:20) muscle aches, cramps acetaminophen [ACETAMINOPHEN] Adverse Reaction (Severe, Verified 08/14/24 16:20) GI upset. Pt confirmed NOT allergic to oxycodone NSAIDS (Non-Steroidal Anti-Inflamma Adverse Reaction (Severe, Verified 08/14/24 16:20) Gastrointestinal Upset HPI Comments Details: Randi is a pleasant female. She is a patient of Dr. Su. she seen for the following urologic conditions - interstitial cystitis Telemedicine evaluation 15 minute consultation Video motify edd Plan for hydrodistention Wednesday Also planning for revision InterSti Interstitial cystitis Patient with interstitial cystitis and bladder pain which responded to therapeutic hydrodistention Last hydrodistention - Apr 2023 Was previously on every 3 month schedule but over the last year had been doing every 2 months Would like to have another cystoscopy - hydrodistention done risks benefits potential complications morbidity mortality reviewed all questions answered informed consent obtained Had intersti in 2008. [facility] Medical History (Updated 08/14/24 @ 16:20 by Jalyn Dubose RN) Sacral nerve stimulator present Colostomy in place On beta morgan at home Anxiety SVT (supraventricular tachycardia) Depression Back pain History of gastrostomy tube placement Hx of ulcerative colitis Hx of cystitis History of anxiety Asthma Elevated cholesterol Surgical History (Updated 08/14/24 @ 16:21 by Jalyn Dubose RN) History of bowel diversion surgery History of tubal ligation History of endometrial ablation History of bladder surgery Social History Household Members: Significant Other Housing: Apartment Are you a primary director long term care to a significant other at home: No Do you presently have visiting nurse or other home services: No Alcohol intake: former Patient Tobacco Use Status: Current everyday Tobacco user Tobacco use type: Cigarette Cigarettes Per Day: 3 Years Smoked: 25 Smoked in Last 30 Days: Yes Use of substances other than those prescribed or required for medical reasons: No Have you been hit, kicked, punched, or otherwise hurt by someone within the past year? If so, by whom?: No Are you DNR?: No Advance Directives: No Advance Directives Information Provided: No Advance Directives on File: No Recently lost weight without trying: No How much weight loss: Not applicable Eating poorly because of decreased appetite: No Nutrition screen score: 0 Nutrition Risks: No Nutritional Risk Patient : No : No Poor oral hygiene: Yes (missing teeth) Current occupational status: disabled Review of Systems Const All systems reviewed & are unremarkable except as noted in HPI and below Reports no additional complaints Resp Reports no additional complaints GI Reports no additional complaints Reports as per HPI Musc Reports no additional complaints Physical Exam Telemedicine evaluation Appropriate responses Regular breathing rate and rhythm HEENT Head: Yes normal to inspection Ears: hearing grossly normal bilaterally Eyes General: appearance normal, both eyes and all related structures Neck Neck: Yes normal visual inspection Chest Chest palpation & inspection: normal inspection of the chest Resp Effort & Inspection: normal respiratory effort and able to speak in complete sentences Telehealth Telehealth Telehealth Platform: motify Location of provider rendering services: practice address Location of patient: address on file Patient Identification confirmed using: Name, : Yes Telehealth method: video Patient verbally consented to treatment: Yes Patient verbally consented to billing insurance company: Yes Patient informed of any privacy concerns related to visit: Yes Minutes spent on Phone/Video with Pt.: 15 Assessment & Plan Assessment & Plan (1) Interstitial cystitis: Code(s): N30.10 - Interstitial cystitis (chronic) without hematuria Category: Medical Plan Risks, benefits and alternatives to therapy were discussed. These include but are not limited to infection, bleeding, damage to local organs and tissues, need for further interventions. Anesthetic risks regarding cardiac arrhythmia, blood clots, and potential mortality were discussed. The patient understands the typical recovery time and the outpatient nature of the procedure. After consideration of these risks the patient gives full informed consent and they wish to move ahead with the procedure. Hydrodistention Medications: Changed From oxycodone Partial Fill upon patient request. 5 mg PO TID 30 days PRN 90 tabs 0RF pain R39.89 - Other symptoms and signs involving the genitourinary system To oxycodone Partial Fill upon patient request. 5 mg PO TID PRN 6 tabs 0RF pain 2 days R39.89 - Other symptoms and signs involving the genitourinary system Discontinued oxycodone Partial Fill upon patient request. Discontinued Reason: Patient Completed Course 5 mg PO BID 3 days PRN 6 caps 0RF pain (scale score 7-10) oxycodone Partial Fill upon patient request. Discontinued Reason: Patient Completed Course 5 mg PO Q8H PRN 6 tabs 0RF pain Coding Level of Care Code Tele Est Pt Level 3 (27886) Diagnoses Interstitial cystitis N30.10
== END 2024-08-11 16:43 | disposition home or self-care (01) ==
LOC: HO.HUSH 11:15
PROVIDERS: PCP Internal Medicine; Visit Provider Urology
DX: N30.10 Interstitial cystitis (chronic) without hematuria (principal)
CPT/HCPCS: 99213

== ENCOUNTER → 2024-08-11 11:15 | Outpatient (BNVA) | payer OTHER, SELFPAY | PROVIDERS: PCP Internal Medicine; Visit Provider Urology ==

== ENCOUNTER 2024-08-14 15:44 | Day surgery (SDC) | payer OTHER, SELFPAY ==
[2024-08-14] VITALS (7 sets, daily range): BP systolic 113–144; BP diastolic 64–79; PULSE 66–82; RESP 16–18; TEMP 36.2–37.4; O2SAT 98–100; BMI 20.8
--- OUTSIDE RECORDS SUMMARY | 2024-08-14 10:26 | XMS_ITS | Data Portability ---
Author Organization [employer] Address [address] [place] [address] Care Team Providers Care Demo Specialist Name Role Phone ELVI LAWANDA ADULT MEDICINE Referring Provider HIM [facility] OTHER Assessment Encounter Date Assessment Date Assessment LastModified by Organization Details LastModified Time 07/30/2023 07/30/2023 I provided real -time medical direction via phone for this encounter, and was available for additional phone based assistance as needed. I have reviewed and agree with the Assessment and Plan as documented by the Steward/Stewardess Chief Cargo Vessel. Patient given the opportunity to ask questions. As per above, service called for bladder pain and found this 58 riki with chronic interstitial cystitis c/b suprapubic pain. C/o 4d suprapubic sharp pain that is throbbing, knife-like and c/w prior episodes. She is soon to have hydroextension procedure. Last ketorlac > 1 wk prior. Regular PO food and fluid intake. Per police liaison on the scene, VSS and she is [...] assessment and plan as documented by the police liaison and would add/emphasize: Patient seen for acute [...] ketorolac 30 mg/mL injection solution 2023 024 [email or web address] [facility], [address] [place], [address], 4 19:46:11 ondansetr on HCl (PF) 4 mg/2 mL injection solution 2023 024 [facility], [address] [place], [address], 4 18:50:03 ketorolac 30 mg/mL injection solution 2023 024 [facility], [address] [place], [address], 4 18:50:03 Zofran 4 mg tablet 2023 024 SANDR[facility], [address] [place], [address], 4 21:22:51 ketorolac 30 mg/mL injection solution 2023 024 [facility], [address] [place], [address], 4 21:23:56 ketorolac 30 mg/mL injection solution 2023 Adilene mayra [facility], [address] [facility], [place], [address], 4 22:56:59 Patient TargetsNo targets recorded. Patient [...] n nausea Not available Not available 08/12/2022 78448 3 RxNorm Lula Camacho MD [address] [place] [address],[address], [place], [address], [employer] 3 16:51:49 1995 Augmentin medicatio n Not available Not available Not available 08/12/2022 48691 2 RxNorm got mouth sores Lula Camacho MD [address] [place] [address],[address], [place], [address], [employer] 3 16:52:05 1996 acetamino phen medicatio n Not available Not available Not available 08/12/2022 161 RxNorm Not Available [facility] - production 4 03:45:01 1997 simvastat in medicatio n Not available Not available Not available 08/12/2022 25861 RxNorm Lula Camacho MD [address] [place] [address],[address], [place], [address], [employer] 3 16:52:28 Medications Name Sig Start Date [...] Details Last Updated DateTime 4 98.4 [degF] 31721.5 12 g 98 % 98 % 18 /min 90 /min 104 mm[Hg] 64 mm[Hg] Not Available [employer] 4 21:02:10 Date Recorded Respiratory rate Body weight Oxygen saturation Oxygen saturation in Arterial blood by Pulse oximetry Body temperature Body height Heart rate Systolic blood pressure Diastolic blood pressure Systolic blood pressure Diastolic blood pressure Provider Name and Address Organization Details Last Updated DateTime 4 14 /min 46318.9 6 g 76 % 76 % 98.5 [degF] 165.1 cm 74 /min 98 mm[Hg] 64 mm[Hg] 95 mm[Hg] 56 mm[Hg] Not Available [employer] 4 20:24:53 Date Recorded Oxygen saturation Oxygen saturation in Arterial blood by Pulse oximetry Respiratory rate Heart rate Body temperature Systolic blood pressure Diastolic blood pressure Provider Name and Address Organization Details Last Updated DateTime 4 97 % 97 % 16 /min 80 /min 98.1 [degF] 110 mm[Hg] 64 mm[Hg] Not Available [employer] 4 19:12:03 Date Recorded Body temperature Respiratory rate Oxygen saturation Oxygen saturation in Arterial blood by Pulse oximetry Heart rate Systolic blood pressure Diastolic blood pressure Provider Name and Address Organization Details Last Updated DateTime 4 98.4 [degF] 16 /min 98 % 98 % 86 /min 100 mm[Hg] 68 mm[Hg] Not Available [employer] 4 16:25:08 Date Recorded Respiratory rate Heart rate Oxygen saturation Oxygen saturation in Arterial blood by Pulse oximetry Body temperature Systolic blood pressure Diastolic blood pressure Provider Name and Address Organization Details Last Updated DateTime 4 16 /min 88 /min 96 % 96 % 96 [degF] 97 mm[Hg] 63 mm[Hg] Not Available [employer] 4 17:24:48 Social History None recorded. Functional [...] [id number] Tha Pierson MD Main - [facility] [address] [place] [phone] 03/24/2022 17:56:02 04/01/2022 18:48:22 Abdominal pain 62591786 R10.9 4587 Amaury Kent MD Main - [facility] [address] [place] [phone] 03/26/2022 17:40:48 03/30/2022 12:00:01 Abdominal pain 46589507 R10.9 No red flag signs or kidney problems. Will give Toradol 15mg IM x1 [id number] Jordan Chapman MD Main - [facility] [address] [place] [phone] 04/02/2022 17:07:08 04/03/2022 15:18:36 Urinary bladder pain 74110692 R39.82 Patient with exacerbati on of chronic abdominal pain which is attributed to interstiti al cystitis. She is planned for a surgical procedure for this soon. She got relief from toradol at a recent [facility] visit for same symptoms. No history of GI bleeding or chronic kidney disease.Rx toradol IM 15mg x1 [id number] Nelly Pérez MD Main - [facility] [address] [place] [phone] 04/08/2022 14:02:49 04/14/2022 16:18:59 Chronic interstitial cystitis [id number] N30.10 57 year old female, being evaluated for chronic bladder pain. Per data gathered by police liaison, patient with chronic bladder pain without dysuria, scheduled for a surgical procedure next week. Her symptoms are at baseline, and she is tolerating PO. Her exam is notable for normal vital signs. Cannot take PO NSAIDS, however recalls IM toradol helpful in the past - dose given again today. FU PCP as needed. 5214 [facility] [address] [place] [phone] 04/22/2022 17:19:46 04/23/2022 11:41:13 Pain in right foot [id number] 25270 M79.671 57 year old female being evaluated [...] 5464 Kylee Hill MD Main - [facility] [address] [place] [phone] 05/03/2022 16:25:00 05/05/2022 09:08:24 Pain in left foot [id number] 22146 M79.672 57 yo F w/ known metatarsal [...] 8142 Lula Camacho MD Main - [facility] [address] [place] [phone] 08/12/2022 15:46:28 08/14/2022 09:39:18 Candidiasis of skin 56833262 B37.2 likely cause of rash Increased frequency of urination 672784472 R35.0 PAT NOT clinically dehydrated -not hyperglyce opal -states has hx non infectious cystitis- has appt w/ urology 09/07- requesting ketorolac for pain- has no hx CKD/ has tolerated 30 mg IM before( previous [facility] visits)- get GI upset w/ nsaids [...] 8250 Derik Bingham MD Main - [facility] [address] [place] [phone] 08/17/2022 11:11:00 08/19/2022 09:27:13 Chronic interstitial cystitis 042807620 N30.10 Localized eruption of skin 752221238 R21 8622 Kylee Hill MD Main - [facility] [address] [place] [phone] 08/28/2022 22:03:08 08/31/2022 11:13:17 Chronic interstitial cystitis 088907814 N30.10 long standing diagnosis c/b chronic pain. [...] Of note, prescripti on called into [facility] over the phone / EMR malnctio n 9933 Angie Amador MD Main - [facility] [address] [place] [phone] 10/11/2022 16:10:03 10/12/2022 10:16:13 Abdominal pain 24062128 R10.9 Chronic low back pain 27 0038247 M54.50 Pain 40956228 R52 [id number] Derik Bingham MD Main - [facility] [address] [place] [phone] 10/16/2022 17:37:00 10/19/2022 09:55:32 Right upper quadrant pain 893134472 R10.11 [id number] Jareth David MD Main - [facility] [address] [place] [phone] 10/29/2022 17:40:14 10/30/2022 08:56:05 Generalized abdominal pain 521935864 R10.84 This 57-year-ol d female had a [...] PCP. The patient agreed with this plan. [id number] Amaury Kent MD Main - [facility] [address] [place] [phone] 10/31/2022 15:42:54 11/03/2022 13:02:01 Generalized abdominal pain 256719573 R10.84 Generalize d abdominal pain similar to prior episodes. Mild nausea and sxs of dehydratio n, poor fluid intake. Had normal BMP on prior visit. Tolerated IVF, Zofran, Toradol in the past. No red flag signs. Will reorder. [id number] Leander Rosa MD Main - [facility] [address] [place] [phone] 11/04/2022 14:24:04 11/06/2022 13:41:01 Abdominal pain 39382270 R10.9 [id number] Kylee Hill MD Main - [facility] [address] [place] [phone] 11/15/2022 15:34:46 11/25/2022 10:16:27 Chronic interstitial cystitis 268677272 N30.10 case supervised and discussed with police liaison. Patient was given opportunit y to ask questions, warning signs/symp toms of pertinent medical emergency reviewed. long standing diagnosis c/b chronic pain. Recieves toradol occasional ly with good effect. No fevers/chi lls/hematu sofi. Will administer 30mg toradol [id number] Latosha Pressley MD Main - [facility] [address] [place] [phone] 0 11/23/2022 20:46:17 11/24/2022 10:07:44 Chronic interstitial cystitis 291660597 N30.10 [id number] Amaury Kent MD Main - [facility] [address] [place] [phone] 11/28/2022 16:57:59 11/28/2022 23:15:41 Chronic interstitial cystitis 185222668 N30.10 Has upcoming cystocscop y, amenable to 30mg IM Toradol now Pain 73084406 R52 [id number] Jareth David MD Main - [facility] [address] [place] [phone] 12/13/2022 16:50:19 12/14/2022 10:41:58 Essential tremor 963655926 G25.0 This 57-year-ol d female with a history of ulcerative colitis and a resting tremor called [facility] because she thought she might be dehydrated . At the visit her hydration status looked good and her oral intake was adequate. She was advised to follow-up with her PCP. The patient agreed with this plan. [id number] Lula Camacho MD Main - [facility] [address] [place] [phone] 02/22/2023 18:33:03 02/23/2023 08:59:17 Abdominal pain 82491887 R10.9 Agree flare of interstiti al cystitis/p atevans has appointmen t to talk to her urologist in 48 hours/but not in person-adv ised since she has not had ketorolac in a while and her H & H are stable-we will give her a dose, however I advised she could develop a reaction to parenteral ketorolac similar to ibuprofen- she verbalized understand ing Hypokalemia 74608156 E87 .6 Unsure of etiology since the [...] and tomorrow - she verbalized she would [id number] Lula Camacho MD Main - [facility] [address] [place] [phone] 02/24/2023 11:00:53 02/24/2023 12:04:06 Hypokalemia 50237148 E87.6 Unsure of etiology since the patient denies nausea/ vomiting /diarrhea or excessive urine output/ now resolved with po K//lactate is slightly high but these new machines have been reading mildly high on everyone I have taken care of in the past week-doubt significan t given stable exam and vital signs and the fact that she is afebrile. [id number] Amaury Kent MD Main - [facility] [address] [place] [phone] 04/15/2023 15:37:09 04/16/2023 12:56:31 Abdominal pain 93341638 R10.9 Acute on chronic. Normal vital signs. No red flag signs or kidney problems. Will give Toradol 30mg IM x1. Discussed red flag signs for which to seek higher level of care. [id number] Sofiya Frye MD Main - [facility] [address] [place] [phone] 04/27/2023 21:55:53 04/28/2023 10:39:48 Chronic pain 67172671 G89.29 [id number] Corrie Pryor MD Main - [facility] [address] [place] [phone] 0 05/01/2023 12:37:10 05/02/2023 15:48:01 Chronic interstitial cystitis 327054460 N30.10 Evaluation in the field was performed by my police liaison colleague, as noted above, I provided real-time [...] shortness of breath, cough, chest pain, fever. 68638 Nelly Pérez MD Main - [facility] [address] [place] [phone] 0 05/10/2023 15:45:31 05/10/2023 22:56:22 Abdominal pain 57056836 R10.9 58 year old female with a [...] assessment and plan as documented by the police liaison. I provided real-time medical direction for this encounter and was immediatel y available to provide additional phone-base d assistance as needed. We discussed the diagnostic uncertaint y of home visits and associated risks. We discussed the need to seek care urgently/e mergently in the setting of any new or worsening symptoms. [id number] Jareth David MD Main - [facility] [address] [place] [phone] 0 05/18/2023 14:57:58 05/19/2023 10:20:02 Irritable bowel syndrome 80885928 K58.9 This 58-year-ol d female with recurrent GI pain likely due to IBS called today because of pain since this AM. She doesn't tolerate oral pain medication s due to GERD, but she has responded to Toradol in the past. I ordered Toradol 30 mg IM. She will follow-up with her PCP. The patient agreed with this plan. [id number] Kellie Woods MD Main - [facility] [address] [place] [address] [phone] 0 05/21/2023 12:59:15 05/24/2023 16:53:56 Urinary symptoms 985856498 R39.9 Abdominal pain 45155984 R10.9 [id number] NO MATHIS MD Main - [facility] [address] [place] [phone] 06/06/2023 11:39:22 06/08/2023 10:04:30 Abdominal pain 25793984 R10.9 Evaluation in the field was performed by my police liaison colleague, as noted above, I provided real-time [...] N/V. Last BM this morning and normal. Orla Sign negative that makes intraperit baxter inflammati on less likely. Psoas and Obturator signs negative .Pt not on anticoagul ation Impression :Acute on chronic abdominal pain Plan:Ketor olac 15 mg IM [id number] to call her GI doctor on Wednesday [...] concerns Latosha Pressley MD Main - [facility] [address] [place] [phone] 0 07/27/2023 17:32:53 07/27/2023 21:48:46 Chronic interstitial cystitis 449061893 N30.10 Sofiya Frye MD Main - [facility] [address] [place] [phone] 0 07/30/2023 21:02:08 07/31/2023 12:36:08 Spasm of urinary bladder 374695537 N32.89 [id number] Duong Panchal MD Main - [facility] [address] [place] [phone] 0 08/24/2023 20:24:52 08/25/2023 11:16:42 Ulcerative colitis 57137298 K51.90 Patient reports a history of ulcerative colitis followed by GI. She reports that she has abdominal pain consistent with her typical chronic abdominal pain. Denies any new complaints . Reports a recent colonoscop y. No hematochez ia or melena. Requesting ketorolac as that typically resolves her symptoms. Denies any other complaints or concerns. [id number] Nelly Pérez MD Main - [facility] [address] [place] [address] [phone] 0 10/11/2023 19:12:01 10/11/2023 22:15:10 Chronic interstitial cystitis 687801168 N30.10 57 year old female, being evaluated for acute on chronic bladder pain. Per data gathered by police liaison, patient with chronic bladder pain without dysuria, [...] assessment and plan as documented by the police liaison. I provided real-time medical direction for this encounter and was immediatel y available to provide additional phone-base d assistance as needed. We discussed the diagnostic uncertaint y of home visits and associated risks. We discussed the need to seek care urgently/e mergently in the setting of any new or worsening symptoms. [id number] Tha Pierson MD Main - [facility] [address] [place] [address] [phone] 0 01/23/2024 16:25:05 01/24/2024 10:37:03 Abdominal pain 08591420 R10.9 [id number] Nelly Pérez MD Main - [facility] [address] [place] [address] [phone] 0 04/18/2024 17:24:45 04/18/2024 22:03:45 Headache 76178348 R51.9 59 year old female being evaluated [...] assessment and plan as documented by the police liaison. I provided real-time medical direction for this [...] Babb Member ID Guarantor Name 07/30/2023 1 [facility] - DOS ON OR AFTER 2022 - DUAL ELIGIBLE - FPC OPTIONS AND ONE CARE (MEDICARE REPLACEMENT/ADV ANTAGE - HMO) Randi Desilets [id number] Randi A Desilets 08/24/2023 1 [facility] - DOS ON OR AFTER 2022 - DUAL ELIGIBLE - FPC OPTIONS AND ONE CARE (MEDICARE REPLACEMENT/ADV ANTAGE - HMO) Randi Desilets [id number] Randi A Desilets 10/11/2023 1 [facility] - DOS ON OR AFTER 2022 - DUAL ELIGIBLE - FPC OPTIONS AND ONE CARE (MEDICARE REPLACEMENT/ADV ANTAGE - HMO) Randi Desilets [id number] Randi A Desilets 01/23/2024 1 [facility] - DOS ON OR AFTER 2022 - DUAL ELIGIBLE - FPC OPTIONS AND ONE CARE (MEDICARE REPLACEMENT/ADV ANTAGE - HMO) Randi Desilets [id number] Randi A Desilets 04/18/2024 1 [facility] - DOS ON OR AFTER 2022 - DUAL ELIGIBLE - FPC OPTIONS AND ONE CARE (MEDICARE REPLACEMENT/ADV ANTAGE - HMO) Randi Lowery [id number] Randi Lowery Notes Date Note Type Note [...] ....................... ....................... ....................... ....................... ....................... ....................... ... Steward/Stewardess Chief [employer] Note From Gómez Kumar: Pt co abdominal pain. Has cystitis. Having surgery Wednesday. Was seen by [facility] Wednesday was given toradol with relief ..pt wanting toradol to hold her over for the weekend until surgery. Pt denies urinary symptoms, fever nausea vomiting diarrhea , cp sob, kidney problems. Baseline vitals assessed. [facility] [place] and 30mg toradol IM. Pt education on signs indicating the ER. Steward/Stewardess Chief [employer] Allergies: Acetaminophen, Ibuprofen ....................... ....................... ....................... ....................... ....................... ....................... ... Disposition: Ivan Sofiya Frye MD [address] [facility],[address], [place], [address], [employer] [place] 07/30/2023 21:05:26 08/24/2023 text/html CRC Nurse Triage Notes (Dave Cerna): Patient Reports: Inability to tolerate foods, fluids or daily medications Denies: Vague abdominal pain greater than 24 hours Nausea with or without vomiting Chief Complaints: Weakness/Lethargy, Dehydration, Abdominal Pain PMH: COPD/Asthma Allergies: Acetaminophen, Ibuprofen Comments: [employer]er verified the member's name//address and phone number. [...] ....................... ....................... ....................... ....................... ....................... ....................... ... Steward/Stewardess Chief [employer]essel Note From Spencer Reis: 58 yo F [...] but pt needs to follow up with switchman to not just mask the pain but cure the main issue. 30mg given left deltoid. explained risks of fpc use of Toradol/NSAIDs. discussed red flags with pt and friend. ....................... ....................... ....................... ....................... ....................... ....................... ... Disposition: Fulfilled Duong Panchal MD [address] [facility],[address], [place], [address], [employer] 08/24/2023 22:57:14 10/11/2023 text/html CRC Nurse Triage Notes (Mayra Jaime): Reason For Request: Pt reporting introsystalitis, pain, nausea (for a couple days), states bladder surgery for next week>is requesting toradol and zofran Chief Complaints: Nausea/Vomiting, Pain PMH: COPD/Asthma Allergies: Acetaminophen, Ibuprofen Comments: [employer] verified the member's name//address and phone number. [...] ....................... ....................... ....................... ....................... ....................... ....................... ... Steward/Stewardess Chief [employer] Note From Corey Moralez: Pt reporting acute [...] ... Disposition: Fulfilled Nelly Pérez MD [address] [facility],[address], [place], [address], [employer] 10/11/2023 21:24:08 01/23/2024 text/html CRC Nurse Triage [...] got in contact with mbr around 1450. [employer] verified the member's name//address and phone number. Mbr reporting generalized abdominal discomfort as well as nausea on going for the last few hours. Mbr reports awaiting bladder surgery which is scheduled for next month. [facility] has been seen in the past by [facility] for similar and [facility] Toradol has worked well for her pain in the past. Education provided on the response time and the member was advised to monitor reported s/s and seek emergency treatment if needed -Abdullahi Moeller RN ....................... ....................... ....................... ....................... ....................... ....................... ... Steward/Stewardess Chief [employer] Note From Yennifer Celeste: Pt reports 2-3 days of nausea, vomiting with lower abd pain. A&ox3, vss, afebrile; ? cramping? in lower quadrants, mildly painful on palpation, denies cp, sob, back or flank pain, headache, dizziness, lightheadedness. [facility] consulted, 4mg zofran and 15mg toradol IM administered. Pt will follow up with pcp Wednesday. Red flags reviewed. Steward/Stewardess Chief [employer] Allergies: Acetaminophen, Ibuprofen ....................... ....................... ....................... ....................... ....................... ....................... ... Disposition: Fulfilled Tha Pierson MD [address] [facility],[address], [place], [address], [employer] 01/23/2024 18:50:39 04/18/2024 text/html CRC Nurse Triage [...] ....................... ....................... ....................... ....................... ....................... ....................... ... Steward/Stewardess Chief [employer] Vessel Note From Corey Moralez: This 59-year-old female [...] is soft, nontender, nondistended. No lower extremity edema.[facility] [place] and patient treated with [...] ....................... ....................... ....................... ....................... ....................... ....................... ... [facility] Consulted: Nelly Pérez ....................... ....................... ....................... ....................... ....................... ....................... ... Disposition: Ivan Pérez MD [address] [facility],[address], [place], [address], [employer] 04/18/2024 19:46:24 OBGyn Episode No OBEpisode recorded.
--- OUTSIDE RECORDS SUMMARY | 2024-08-14 10:26 | XMS_ITS | Encounter Summary ---
Author Organization [facility] Address [phone] [place] [address] Care Team Providers Care Cylinder Press Feeder Name Role Phone Pcp, Unknown Primary Care Provider Unavailabl e Reason for Visit * Auth/Cert (Routine) Specialty Diagnoses / Procedures Referred By Contac t Referred To Contact Referral ID Status Reason Start Date Expiration Date Visits Re quested Visits Authorized [id number] 1 1 Encounter Details Date Type Department Care Team (Late Contact Info) Description 07/22/2024 Home [facility] Visit [facility] [address] [place], [place] [phone] Ernestine Gillette RN [address] [place] [address] [email or web address] TRIAGE CLINICAL COMMUNICATION Social History Tobacco Use [...] Department Care Team (Late Contact Info) Description 08/15/2024 2:00 AM EST Home [facility] Visit [facility] [address] [place], [place] [phone] Tala Alvarez RN [address] [place], [place] [phone] 08/18/2024 1:00 AM EST Home Care Visit [facility] [address] [place] [phone] Tala Alvarez RN [address] [place] [address] 08/22/2024 1:30 AM EDT Home Care Visit [facility] [address] [place] [address] Tala Alvarez, PAMELA [address] [place] [address] 08/25/2024 12:30 AM EDT Home Care Visit [facility] [address] [place] [phone] Tala Alvarez RN [address] [place] [address] 08/29/2024 2:00 AM EDT Home Care Visit [facility] [address] [place] [phone] Tala Alvarez, PAMELA [address] [place] [address] 09/01/2024 12:30 AM EDT Home Care Visit [facility] [address] [place] [phone] Tala Alvarez, PAMELA [address] [place] [address] 09/05/2024 1:30 AM EDT Home Care Visit [facility] [address] [place] [phone] Tala Alvarez, PAMELA [address] [place] [address] 09/08/2024 12:30 AM EDT Home Care Visit [facility] [address] [place] [phone] Tala Alvarez RN [address] [place] [address] [email or web address] 09/12/2024 1:00 AM EDT [facility] [address] [place] [address] Tala Alvarez RN [address] [place] [address] 09/15/2024 Home Care Visit [facility] [address] [place] [phone] Tala Alvarez, PAMELA [address] [place] [address] 09/19/2024 Appointment [facility] [address] [place] [phone] Tala Alvarez RN [address] [place] [address] documented as of this encounter Visit Diagnoses Not on filedocumented in this encounter Care Teams Cylinder Press Feeder Relationship Specialty Start Date End Date Pcp, Unknown PCP - General 02/23/23 documented as of this encounter Additional Source Comments The information contained in this document represents components of the legal health record. It is not the complete legal health record.[facility]
--- OUTSIDE RECORDS SUMMARY | 2024-08-14 10:26 | XMS_ITS | Encounter Summary ---
Author Organization [facility] Address [phone] [place] [address] Care Team Providers Care Information Assurance Engineer Name Role Phone Pcp, Unknown Primary Care Provider Unavailabl e Reason for Visit * Auth/Cert (Routine) Specialty Diagnoses / Procedures Referred By Contac t Referred To Contact Referral ID Status Reason Start Date Expiration Date Visits Re quested Visits Authorized [id number] 1 1 Encounter Details Date Type Department Care Team (Late st Contact Info) Description 07/18/2024 9:45 AM EST Home Care Visit [facility] [address] [place] [phone] Tala Alvarez, RN [address] [place] [address] [email or web address] SN HOME VISIT Social History Tobacco Use [...] Care Team (Late st Contact Info) Description 08/15/2024 2:00 AM EST Home Care Visit [facility] [address] [place] [phone] Tala Alvarez, PAMELA [address] [place] [address] [email or web address] 08/18/2024 1:00 AM EST Home [facility] [address] [place] [phone] Tala Alvarez RN [address] [place] [address] [email or web address] 08/22/2024 1:30 AM EDT Home Care Visit [facility] [address] [place] [phone] Tala Alvarez, PAMELA [address] [place] [address] [email or web address] 08/25/2024 12:30 AM EDT Home Care Visit [facility] [address] [place] [phone] Tala Alvarez, PAMELA [address] [place] [address] [email or web address] 08/29/2024 2:00 AM EDT Home Care Visit [facility] [address] [place] [phone] Tala Alvarez, PAMELA [address] [place] [address] [email or web address] 09/01/2024 12:30 AM EDT Home Care Visit [facility] [address] [place] [phone] Tala Alvarez, PAMELA [address] [place] [address] [email or web address] 09/05/2024 1:30 AM EDT Home [facility] [address] [place] [phone] Tala Alvarez RN [address] [place] [address] [email or web address] 09/08/2024 12:30 AM EDT Home Care Visit [facility] [address] [place] [phone] Tala Alvarez RN [address] [place] [phone] [email or web address] 09/12/2024 1:00 AM EDT Home Care [facility] [address] [place] [phone] Tala Alvarez RN [address] [place] [phone] [email or web address] 09/15/2024 Home Care Visit [facility] [address] [place] [phone] Tala Alvarez RN [address] [place] [address] [email or web address] 09/19/2024 Appointment [facility] [address] [place] [phone] Tala Alvarez RN [address] [place] [address] [email or web address] documented as of this encounter Visit Diagnoses Not on filedocumented in this encounter Home Health Visit - Care Plan Visit Details Visit Type -SN HOME VISIT Discipline -Shelter Problems Problem Description [...] Completed documented in this encounter Care Teams Information Assurance Engineer Relationship Specialty Start Date End Date Pcp, Unknown PCP - General 02/23/23 documented as of this encounter Additional Source Comments The information contained in this document represents components of the legal health record. It is not the complete legal health record.[facility]
--- OUTSIDE RECORDS SUMMARY | 2024-08-14 10:26 | XMS_ITS | Encounter Summary ---
Author Organization [facility] Address [phone] [place] [address] Care Team Providers Care Natural Sciences Department Chair Name Role Phone Pcp, Unknown Primary Care Provider Unavailabl e Reason for Visit * Auth/Cert (Routine) Specialty Diagnoses / Procedures Referred By Contac t Referred To Contact Referral ID Status Reason Start Date Expiration Date Visits Re quested Visits Authorized [id number] 1 1 Encounter Details Date Type Department Care Team (Late st Contact Info) Description 07/27/2024 8:00 PM EST Home Care Visit [facility] [address] [place] [phone] Celina Ann RN [address] [place] [address] [email or web address] SN HOME VISIT Social History Tobacco Use [...] Care Visit [facility] [address] [place] [phone] Tala Alvarez, PAMELA [address] [place] [address] [email or web address] 08/18/2024 1:00 AM EST Home [facility] Visit [facility] [address] [place] [phone] Tala Alvarez RN [address] [place] [phone] [email or web address] 08/22/2024 1:30 AM EDT Home Care Visit [facility] [address] [place] [phone] Tala Alvarez, PAMELA [address] [place] [address] [email or web address] 08/25/2024 12:30 AM EDT Home Care Visit [facility] [address] [place] [phone] Tala Alvarez, PAMELA [address] [place] [address] [email or web address] 08/29/2024 2:00 AM EDT Home Care Visit [facility] [address] [place] [phone] Tala Alvarez, PAMELA [address] [place] [address] [email or web address] 09/01/2024 12:30 AM EDT Home Care Visit [facility] [address] [place] [phone] Tala Alvarez RN [address] [place] [address] [email or web address] 09/05/2024 1:30 AM EDT Home Care Visit [facility] [address] [place] [phone] Tala Alvarez RN [address] [place] [address] [email or web address] 09/08/2024 12:30 AM EDT Home Care Visit [facility] [address] [place] [phone] Tala Alvarez RN [address] [place] [address] [email or web address] 09/12/2024 1:00 AM EDT Home Care Visit [facility] [address] [place] [phone] Tala Alvarez RN [address] [place] [address] [email or web address] 09/15/2024 Home Care Visit [facility] [address] [place] [phone] Tala Alvarez RN [address] [place] [address] [email or web address] 09/19/2024 Appointment [facility] [address] [place] [phone] Tala Alvarez RN [address] [place] [address] [email or web address] documented as of this encounter Visit Diagnoses [...] achieve optimal wellness and home safety. Completed - I/E immunizations Problem: - Health Maintenance Goal: - Patient preferences will be utilized to [...] situation: When to call your Home Care Team/1, ER plans, supplies, evacuation, when to contact [...] scale Problem:HH - Falls - Risk of Goal: - [...] discharge from homecare Completed HH - Precautions Problem: - Standard of Care [...] discharge from homecare Completed HH - Assess safety needs of patient (other than falls) Problem: - Standard of Care Goal:HH - Achieve care management for a safe to home/community discharge from homecare Completed HH - I/E discharge plan Problem: - Standard of Care Goal:HH - [...] DEVICE PRODUCT NAME AND SIZE: HELDER NICOLASIMS- [id number]- 1-PIECE COLOPLAST [id number]. Problem: - Ostomy Management Goal:HH - Demonstrate/verbalize [...] Completed documented in this encounter Care Teams Natural Sciences Department Chair Relationship Specialty Start Date End Date Pcp, Unknown PCP - General 02/23/23 documented as of this encounter Additional Source Comments The information contained in this document represents components of the legal health record. It is not the complete legal health record.[facility]
--- OUTSIDE RECORDS SUMMARY | 2024-08-14 10:26 | XMS_ITS | Continuity of Care Document ---
Author Organization [facility] Address [address] [place] [address]- Care Team Providers Care Cell Tower Climber Name Role Phone Brett Su MD Primary Care Physician Encounter [facility] Date(s): 07/14/24 - 08/13/24 [facility] [address] [place] [address]- Attending Physician: Admtr, Ar8 Encounter Type: Triage Allergies, Adverse Reactions, Alerts Substance Criticality Severity Reaction Reaction Severity Status ibuprofen 1 Diarrhea Nausea Active aspirin stomach problems Active acetaminophen 2, 3 Unknown Nausea Resolved simvastatin Unknown Aching muscles Active atorvastatin unknown [...] Given pneumococcal 20-valent conjugate vaccine 01/18/23 Recorded [id number] 12y+ bivalent booster vax 01/27/23 Recorded tetanus-diphtheria toxoids (Td) 07/16/21 Given SARS-CoV-2 mRNA (lckedcd-dyoi-kcxop) vax 07/16/21 Given Influenza Virus Vaccine (oldterm) [...] Given 1Result Comment: [03/08/2017] [facility] 2Location History: [facility] 3Admin Note: [facility] 4Admin Note: per pt rcvd [facility] 5Admin Note: given in clinic 6Admin Note: WING 7Admin Note: clinic ronnie Medications Albuterol (Eqv-ProAir HFA) 90 mcg/inh inhalation aerosol 2 puffs, Inhalation, Every 6 hours, PRN NEEDED FOR WHEEZING, # 8.5 each, 2 Refills, Maintenance,07/28/24 12:20:00 PM EST, [facility], 25, INHALE 2 PUFFS BY MOUTH EVERY [...] Refills, Maintenance, 07/14/24 4:29:00 PM EST, Tablet, [facility]/pharmacy #[id number], Partial [...] Most recent to oldest [Reference Range]: 1 Height 165 cm (10/31/19 3:12 PM) Social History Social History Type Response Tobacco Use: 4 or less cigar ettes(less than 1/4 pack)/day in last 30 days. Other: Half a pack of cigarettes daily since age 25.. Sex Sex Representation Female (finding) EKG study * Event Display: EKG Authored Date: Cardiology * Catarina Jeffery: PERFORM Event Display: Cardiovascular Results Scanned Authored Date: [id number] * Lyn Daly: PERFORM Event Display: Cardiovascular Results Scanned Authored Date: [id number] Laboratory * Lyn Daly: PERFORM Event Display: Laboratory Results Scanned Authored Date: [id number] * Sophie Zhou: PERFORM Event Display: Laboratory Results Scanned Authored Date: [id number] MG Breast Views * Event Display: MM Mammogram Authored Date: Radiology * Event Display: Radiology Result Scanned Authored Date: * Lyn Daly: PERFORM Event Display: Radiology Results Scanned Authored Date: * Lyn Daly: PERFORM Event Display: Radiology Results Scanned Authored Date: Note * Ros Cruz RN: PERFORM Ros Cruz RN: PERFORM, SIGN Ros Cruz RN: SIGN, VERIFY Ros Cruz RN: VERIFY Event Display: Case Management Discharge Plan Authored Date: Patient: NICOLAS TAMAYO Age: 56 years Sex: Female : 1965 Associated Diagnoses: None Author: Ros Cruz RN Care Management Discharge Call Note Admit date 10/12/2021 Discharge date 10/12/2021 Date of contact 10/14/2021 Diagnosis Interstitial cystitis If patient went for emergency services was this patient referred? Referred by Self [facility]. Notes in cis. Discharge instructions were reviewed with the patient? Yes Medication reconciliation performed Yes Pt is taking Morphione 15mg PO BID PRN pain with good effect. Prescribed at ED. Looks like you were recently discharged from the hospital (ED), how are you feeling? Pt denies any severe s/sx since d/c from [facility]. Pt has [facility] Urology specialist with whom she has a follow up. Reports she has a josiah Procedure on 10/20. Please tell me the problem or condition that brought you to the hospital (ED)? LLQ and RLQ ABD pain X 4 days and worsening. Do you know what to do in case of an emergency? Yes Were you given any prescriptions to fill? Yes. Do you understand how to take your medication? Yes Do you have an appointment already scheduled with your PCP? No Is date appropriate: Pt declined ERF with PCP at this time. Per her report she will clal if one is needed. Pt has 10/27 [facility] and said she will kepe this visit. . Appointment scheduled? No Home Care Services requested? No Have there been any changes in your condition since discharge? No Do you have someone at home that is able to help you? Yes Is there anything else that you need addressed before your follow up appointment? Pt denines. Pt understands to call our office if any questions or concerns and understands ot go back to ED if any worsneing s/sx. Patient Care team information Care Team Personnel Name: Yoselyn Mccormick RN Position: [facility] RN Member Role: Primary Care Nurse Name: Rand Baez RN Position: S RN Member Role: Primary Care Nurse Name: Bethany Soares RN Position: [facility] RN Member Role: Primary Care Nurse Name: Pam Harmon RN Position: S RN Member Role: Primary Care Nurse Name: Graciela Harmon RN Position: [facility] RN Member Role: Primary Care Nurse Name: Stella Ramos RN Position: [facility] RN Member Role: Primary Care Nurse Name: Brett Su MD Position: [facility] Physician - Primary Care Member Role: PCP Address: [address] [place] [address] Telecom: Name: Vangie Chun RN Position: [facility] RN Member Role: Primary Care Nurse Name: Leidy Gray RN Position: [facility] RN Member Role: Primary Care Nurse Name: Jimbo Boswell RN Position: [facility] SN RN Member Role: Primary Care Nurse Name: James Alvarez RN Position: [facility] RN Member Role: Primary Care Nurse Name: Milena Rios RN Position: [facility] RN Member Role: Primary Care Nurse Name: Oralia Ashley RN Position: [facility] RN Member Role: Primary Care Nurse Name: Phyllis Holman RN Position: [facility] RN Member Role: Primary Care Nurse Name: Raya Jewell RN Position: [facility] RN Member Role: Primary Care Nurse Name: Harini Aponte RN Position: [facility] RN Member Role: Primary Care Nurse Name: Dorita Brock RN Position: [facility] RN Member Role: Primary Care Nurse Name: Nya Liu RN Position: [facility] RN Member Role: Primary Care Nurse Name: Geri Galvan RN Position: [facility] RN Member Role: Primary Care Nurse Name: Eri Mars RN Position: [facility] RN Member Role: Primary Care Nurse Name: Lula Velasco RN Position: [facility] RN Member Role: Primary Care Nurse Name: Makayla SANTIAGO, Guerline Position: S RN Member Role: Primary Care Nurse Name: Fatimah Galaviz RN Position: [facility] ED RN W/OE and Tasks Member Role: Primary Care Nurse Care Team Related Persons Name: TOÑITOREFUGIOKIAN Name: MARTA LEWIS Name: GUERRERO AGUILAR Name: ITALO CORNEJO Insurance Providers Guarantor name: NICOLAS TAMAYO Health Plan Information #: 1 Payer: [facility] [employer] Member Number: NA Policy Number: NA Group Number: NA Health Plan Information #: 2 Payer: [facility] Member Number: NA Policy Number: NA Group Number: NA
--- OUTSIDE RECORDS SUMMARY | 2024-08-14 10:26 | XMS_ITS | Encounter Summary ---
Author Organization [facility] Address [phone] [place] [address] Care Team Providers Care Class B Truck Driver Name Role Phone Pcp, Unknown Primary Care Provider Unavailabl e Reason for Visit * Auth/Cert (Routine) Specialty Diagnoses / Procedures Referred By Contac t Referred To Contact Referral ID Status Reason Start Date Expiration Date Visits Re quested Visits Authorized [id number] 1 1 Encounter Details Date Type Department Care Team (Late st Contact Info) Description 07/25/2024 9:45 AM EST Home Care Visit [facility] [address] [place] [phone] Tala Alvarez, RN [address] [place] [address] [email or web address] SN HOME VISIT Social History Tobacco Use [...] 2:00 AM EST [facility] [address] [place] [phone] Tala Alvarez RN [address] [place] [address] 08/18/2024 1:00 AM EST Home [facility] Visit [facility] [address] [place] [phone] Tala Alvarez RN [address] [place] [address] 08/22/2024 1:30 AM EDT Home Care Visit [facility] [address] [place] [phone] Tala Alvarez RN [address] [place] [address] 08/25/2024 12:30 AM EDT Home [facility] Visit [facility] [address] [place] [phone] Tala Alvarez RN [address] [place] [address] 08/29/2024 2:00 AM EDT Home Care Visit [facility] [address] [place] [phone] Tala Alvarez, PAMELA [address] [place] [address] 09/01/2024 12:30 AM EDT Home Care Visit [facility] [address] [place] [phone] Tala Alvarez RN [address] [place] [address] 09/05/2024 1:30 AM EDT Home [facility] [address] [place] [phone] Tala Alvarez RN [address] [place] [address] 09/08/2024 12:30 AM EDT Home Care Visit [facility] [address] [place] [phone] Tala Alvarez RN [address] [place] [address] 09/12/2024 1:00 AM EDT [facility] [address] [place] [phone] Tala Alvarez RN [address] [place] [address] 09/15/2024 Home Care Visit [facility] [address] [place] [phone] Tala Alvarez RN [address] [place] [address] 09/19/2024 Appointment [facility] [address] [place] [phone] Tala Alvarez RN [address] [place] [address] documented as of this encounter Visit Diagnoses Not on filedocumented in this encounter Home Health Visit - Care Plan Visit Details Visit Type -SN HOME VISIT Discipline -Retirement Problems Problem Description Start Date Status Goals [...] this visit HH - Ostomy Management Disciplines: Retirement 11/27/2023 Active 1 goal linked to scheduled/document [...] reconciliation as indicated. Pharmacy information: [facility] Problem:HH - Medication Management Goal:HH - Safe [...] today, still has not heard from her [facility] cse assistant manager/embalmer about status of wedge or ostomy belt. [...] situation: When to call your Home Care Team/[facility], ER plans, supplies, evacuation, when [...] Completed documented in this encounter Care Teams Class B Truck Driver Relationship Specialty Start Date End Date Pcp, Unknown PCP - General 02/23/23 documented as of this encounter Additional Source Comments The information contained in this document represents components of the legal health record. It is not the complete legal health record.[facility]
--- OUTSIDE RECORDS SUMMARY | 2024-08-14 10:26 | XMS_ITS | Encounter Summary ---
Author Organization [facility] Address [phone] [place] [address] Care Team Providers Care Software Tools Build Engineer Name Role Phone Pcp, Unknown Primary Care Provider Unavailabl e Encounter Details Date Type Department Care Team (Late st Contact Info) Description 07/31/2024 Episode Documentatio n Update [facility] [address], [place] [phone] Social History Tobacco Use Types Packs/Day Years [...] 2:00 AM EST Home Care Visit [facility] [address], [place] [phone] Tala Alvarez RN [address] [place] [address] 08/18/2024 1:00 AM EST Home Care Visit [facility] [address], [place] [phone] Tala Alvarez RN [address] [place] [address] 08/22/2024 1:30 AM EDT Home Care Visit [facility] [address] [place] [address] Tala Alvarez RN [address] [place] [address] [email or web address] 08/25/2024 12:30 AM EDT Home Care Visit [facility] [address] [place] [address] Tala Alvarez RN [address] [place] [address] [email or web address] 08/29/2024 2:00 AM EDT Home Care Visit [facility] [address] [place] [phone] Tala Alvarez RN [address] [place] [address] [email or web address] 09/01/2024 12:30 AM EDT Home Care Visit [facility] [address] [place] [phone] Tala Alvarez, PAMELA [address] [place] [address] [email or web address] 09/05/2024 1:30 AM EDT Home Care Visit [facility] [address] [place] [phone] Tala Alvarez RN [address] [place] [address] [email or web address] 09/08/2024 12:30 AM EDT Home Care Visit [facility] [address] [place] [phone] Tala Alvarez RN [address] [place] [address] [email or web address] 09/12/2024 1:00 AM EDT Home Care Visit [facility] [address], [place] [phone] Tala Alvarez RN [address] [place] [address] 09/15/2024 Home Care Visit [facility] [address] [place] [phone] Tala Alvarez RN [address] [place] [address] 09/19/2024 Appointment [facility] [address] [place] [phone] Tala Alvarez RN [address] [place] [address] documented as of this encounter Visit Diagnoses Not on filedocumented in this encounter Care Teams Software Tools Build Engineer Relationship Specialty Start Date End Date Pcp, Unknown PCP - General 02/23/23 documented as of this encounter Additional Source Comments The information contained in this document represents components of the legal health record. It is not the complete legal health record.[facility]
--- OUTSIDE RECORDS SUMMARY | 2024-08-14 10:26 | XMS_ITS | Encounter Summary ---
Author Organization [facility] Address [phone] [place] [address] Care Team Providers Care Pin Sticker Name Role Phone Pcp, Unknown Primary Care Provider Unavailabl e Reason for Visit * Auth/Cert (Routine) Specialty Diagnoses / Procedures Referred By Contac t Referred To Contact Referral ID Status Reason Start Date Expiration Date Visits Re quested Visits Authorized [id number] 1 1 Encounter Details Date Type Department Care Team (Late st Contact Info) Description 07/15/2024 1:30 AM EST Home Care Visit [facility] [address] [place] [phone] Olga Finley LPN [address] [place] [address] [email or web address] WHEEL AND PINION INSPECTOR HOME VISIT Social History Tobacco Use Types [...] 2:00 AM EST Home Care Visit [facility] [address] [place] [phone] Tala Alvarez RN [address] [place] [address] 08/18/2024 1:00 AM EST Home Care Visit [facility] [address] [place] [phone] Tala Alvarez RN [address] [place] [address] 08/22/2024 1:30 AM EDT Home Care Visit [facility] [address] [place] [phone] Tala Alvarez RN [address] [place] [address] 08/25/2024 12:30 AM EDT Home Care Visit [facility] [address] [place] [phone] Tala Alvarez RN [address] [place] [address] 08/29/2024 2:00 AM EDT Home Care Visit [facility] [address] [place] [phone] Tala Alvarez, PAMELA [address] [place] [address] 09/01/2024 12:30 AM EDT Home Care Visit [facility] [address] [place] [phone] Tala Alvarez RN [address] [place] [address] 09/05/2024 1:30 AM EDT Home [facility] Visit [facility] [address] [place] [phone] Tala Alvarez RN [address] [place] [address] 09/08/2024 12:30 AM EDT Home Care Visit [facility] [address] [place] [phone] Tala Alvarez RN [address] [place] [address] 09/12/2024 1:00 AM EDT [facility] [address] [place] [phone] Tala Alvarez RN [address] [place] [address] 09/15/2024 Home Care Visit [facility] [address] [place] [phone] Tala Alvarez RN [address] [place] [address] 09/19/2024 Appointment [facility] [address] [place] [phone] Tala Alvarez RN [address] [place] [address] documented as of this encounter Visit Diagnoses Not on filedocumented in this encounter Home Health Visit - Care Plan Visit Details Visit Type -WHEEL AND PINION INSPECTOR HOME VISIT Discipline -[facility] [...] ed intervention HH - Ostomy Management Disciplines: [facility] [...] reconciliation as indicated. Pharmacy information: Description[facility] Problem:HH - Medication Management Goal:HH - Safe [...] Completed documented in this encounter Care Teams Pin Sticker Relationship Specialty Start Date End Date Pcp, Unknown PCP - General 02/23/23 documented as of this encounter Additional Source Comments The information contained in this document represents components of the legal health record. It is not the complete legal health record.[facility]
--- OUTSIDE RECORDS SUMMARY | 2024-08-14 10:26 | XMS_ITS | Encounter Summary ---
Author Organization [facility] Address [phone] [place] [address] Care Team Providers Care Environmental Engineering Manager Name Role Phone Pcp, Unknown Primary Care Provider Unavailabl e Reason for Visit * Auth/Cert (Routine) Specialty Diagnoses / Procedures Referred By Contac t Referred To Contact Referral ID Status Reason Start Date Expiration Date Visits Re quested Visits Authorized [id number] 1 1 Encounter Details Date Type Department Care Team (Late st Contact Info) Description 07/21/2024 8:30 AM EST Home Care Visit [facility] [address] [place] [phone] Tala Alvarez, RN [address] [place] [address] [email or web address] SN OASIS RECERTIFICATION/FUP Social History Tobacco Use [...] 2:00 AM EST Home Care Visit [facility] [address] [place] [phone] Tala Alvarez, PAMELA [address] [place] [address] [email or web address] 08/18/2024 1:00 AM EST Home Care Visit [facility] [address] [place] [phone] Tala Alvarez RN [address] [place] [address] [email or web address] 08/22/2024 1:30 AM EDT Home Care Visit [facility] [address] [place] [phone] Tala Alvarez, PAMELA [address] [place] [address] [email or web address] 08/25/2024 12:30 AM EDT Home Care Visit [facility] [address] [place] [phone] Tala Alvarez, PAMELA [address] [place] [address] [email or web address] 08/29/2024 2:00 AM EDT Home Care Visit [facility] [address] [place] [phone] Tala Alvarez, PAMELA [address] [place] [address] [email or web address] 09/01/2024 12:30 AM EDT Home Care Visit [facility] [address] [place] [phone] Tala Alvarez RN [address] [place] [address] [email or web address] 09/05/2024 1:30 AM EDT Home Care Visit [facility] [address] [place] [phone] Tala Alvarez RN [address] [place] [address] [email or web address] 09/08/2024 12:30 AM EDT Home Care Visit [facility] [address] [place] [phone] Tala Alvarez RN [address] [place] [address] [email or web address] 09/12/2024 1:00 AM EDT Home Care Visit [facility] [address] [place] [phone] Tala Alvarez RN [address] [place] [address] [email or web address] 09/15/2024 Home Care Visit [facility] [address] [place] [phone] Tala Alvarez RN [address] [place] [address] [email or web address] 09/19/2024 Appointment [facility] [address] [place] [phone] Tala Alvarez RN [address] [place] [address] [email or web address] documented as of this encounter Visit Diagnoses Not on filedocumented in this encounter Home Health Visit - Care Plan Visit Details Visit Type -SN OASIS RECERTI FICATION/FUP Discipline -Shelter Problems Problem Description Start Date [...] Pt has CCA for insurance and her CCA care manger is involved. Unfortunately pt is not eligible for [employer] support to explore alternate living until age 60 on November 17 this year. 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 It is not the complete legal health record.[facility]
--- OUTSIDE RECORDS SUMMARY | 2024-08-14 10:26 | XMS_ITS | Encounter Summary ---
Author Organization [facility] Address [phone] [place] [address] Care Team Providers Care Aniline Press Worker Name Role Phone Pcp, Unknown Primary Care Provider Unavailabl e Encounter Details Date Type Department Care Team (Late st Contact Info) Description 07/21/2024 Plan of Care Documentation [facility] [address] [place], [place] [phone] Social History Tobacco Use Types Packs/Day Years [...] 2:00 AM EST Home Care Visit [facility] [address] [place] [phone] Tala Alvarez RN [address] [place] [address] [email or web address] 08/18/2024 1:00 AM EST Home Care Visit [facility] [address] [place] [phone] Tala Alvarez RN [address] [place] [address] [email or web address] 08/22/2024 1:30 AM EDT Home Care Visit [facility] [address] [place] [phone] Tala Alvarez RN [address] [place] [address] [email or web address] 08/25/2024 12:30 AM EDT Home Care Visit [facility] [address] [place] [phone] Tala Alvarez RN [address] [place] [address] [email or web address] 08/29/2024 2:00 AM EDT Home Care Visit [facility] [address] [place] [phone] Tala Alvarez RN [address] [place] [address] [email or web address] 09/01/2024 12:30 AM EDT Home Care Visit [facility] [address] [place] [phone] Tala Alvarez, PAMELA [address] [place] [address] 09/05/2024 1:30 AM EDT Home Care Visit [facility] [address] [place] [phone] Tala Alvarez RN [address] [place] [address] 09/08/2024 12:30 AM EDT Home Care Visit [facility] [address] [place] [phone] Tala Alvarez RN [address] [place] [address] 09/12/2024 1:00 AM EDT Home Care Visit [facility] [address] [place] [address] Tala Alvarez, PAMELA [address] [place] [address] 09/15/2024 Home Care Visit [facility] [address] [place] [address] Tala Alvarez, PAMELA [address] [place] [address] 09/19/2024 Appointment [facility] [address] [place] [phone] Tala Alvarez, PAMELA [address] [place] [address] documented as of this encounter Visit Diagnoses Not on filedocumented in this encounter Care Teams Aniline Press Worker Relationship Specialty Start Date End Date Pcp, Unknown PCP - General 02/23/23 documented as of this encounter Additional Source Comments The information contained in this document represents components of the legal health record. It is not the complete legal health record.[facility]
--- OUTSIDE RECORDS SUMMARY | 2024-08-14 10:26 | XMS_ITS | Encounter Summary ---
Author Organization [facility] Address [phone] [place] [address] Care Team Providers Care Endoscopy Registered Nurse Name Role Phone Pcp, Unknown Primary Care Provider Unavailabl e Reason for Visit * Auth/Cert (Routine) Specialty Diagnoses / Procedures Referred By Contac t Referred To Contact Referral ID Status Reason Start Date Expiration Date Visits Re quested Visits Authorized [id number] 1 1 Encounter Details Date Type Department Care Team (Late st Contact Info) Description 07/21/2024 4:25 AM EST Home Care Visit [facility] [address] [place], [place] [phone] Hawa Espinoza RN [address] [place] [address] [email or web address] SN PRN HOME VISIT Social History Tobacco [...] Visit [facility] [address] [place], [place] [phone] Tala Alvarez RN [address] [place] [address] [email or web address] 08/18/2024 1:00 AM EST Home Care Visit [facility] [address] [place] [phone] Tala Alvarez, PAMELA [address] [place] [address] [email or web address] 08/22/2024 1:30 AM EDT Home Care Visit [facility] [address] [place] [phone] Tala Alvarez, PAMELA [address] [place] [address] [email or web address] 08/25/2024 12:30 AM EDT Home Care Visit [facility] [address] [place] [phone] Tala Alvarez RN [address] [place] [address] [email or web address] 08/29/2024 2:00 AM EDT Home Care Visit [facility] [address] [place] [phone] Tala Alvarez, PAMELA [address] [place] [address] [email or web address] 09/01/2024 12:30 AM EDT Home Care Visit [facility] [address] [place] [phone] Tala Alvarez, PAMELA [address] [place] [address] [email or web address] 09/05/2024 1:30 AM EDT Home Care Visit [facility] [address] [place] [phone] Tala Alvarez, PAMELA [address] [place] [address] [email or web address] 09/08/2024 12:30 AM EDT Home Care Visit [facility] [address] [place] [address] Tala Alvarez, PAMELA [address] [place] [address] [email or web address] 09/12/2024 1:00 AM EDT [facility] [address] [place] [address] Tala Alvarez RN [address] [place] [address] [email or web address] 09/15/2024 Home Care Visit [facility] [address] [place] [address] Tala Alvarez RN [address] [place] [address] 09/19/2024 Appointment [facility] [address] [place], [place] [phone] Tala Alvarez, PAMELA [address] [place] [address] documented as of this encounter Visit Diagnoses Not on filedocumented in this encounter Home Health Visit - Care Plan Visit Details Visit Type -SN PRN HOME VISI T Discipline -Retirement Problems Problem Description Start Date [...] ed intervention HH - Ostomy Management Disciplines: Retirement 11/27/2023 [...] Completed documented in this encounter Care Teams Endoscopy Registered Nurse Relationship Specialty Start Date End Date Pcp, Unknown PCP - General 02/23/23 documented as of this encounter Additional Source Comments The information contained in this document represents components of the legal health record. It is not the complete legal health record.[facility]
--- OUTSIDE RECORDS SUMMARY | 2024-08-14 10:27 | XMS_ITS | Encounter Summary ---
Author Organization [facility] Address [phone] [place] [address] Care Team Providers Care Speech Therapy Assistant Name Role Phone Pcp, Unknown Primary Care Provider Unavailabl e Reason for Visit * Auth/Cert (Routine) Specialty Diagnoses / Procedures Referred By Contac t Referred To Contact Referral ID Status Reason Start Date Expiration Date Visits Re quested Visits Authorized [id number] 1 1 Encounter Details Date Type Department Care Team (Late st Contact Info) Description 07/29/2024 Home Care Visit [facility] [address] [place], [place] [phone] Lula Ordonez RN [address] [place] [address] [email or web address] SN PRN HOME VISIT Social History [...] 2:00 AM EST Home Care Visit [facility] [address] [place], [place] [phone] Tala Alvarez RN [address] [place], [place] [phone] 08/18/2024 1:00 AM EST Home Care Visit [facility] [address] [place] [address] Tala Alvarez RN [address] [place] [address] 08/22/2024 1:30 AM EDT Home Care Visit [facility] [address] [place] [phone] Tala Alvarez, PAMELA [address] [place] [address] 08/25/2024 12:30 AM EDT Home Care Visit [facility] [address] [place] [phone] Tala Alvarez RN [address] [place] [address] 08/29/2024 2:00 AM EDT Home Care Visit [facility] [address] [place] [phone] Tala Alvarez, PAMELA [address] [place] [address] 09/01/2024 12:30 AM EDT Home Care Visit [facility] [address] [place] [phone] Tala Alvarez, PAMELA [address] [place] [address] 09/05/2024 1:30 AM EDT Home Care Visit [facility] [address] [place] [address] Tala Alvarez RN [address] [place] [address] 09/08/2024 12:30 AM EDT Home Care Visit [facility] [address] [place] [address] Tala Alvarez RN [address] [place] [address] 09/12/2024 1:00 AM EDT Home [facility] [address] [place] [address] Tala Alvarez RN [address] [place] [address] 09/15/2024 Home Care Visit [facility] [address] [place] [address] Tala Alvarez RN [address] [place] [address] 09/19/2024 Appointment [facility] [address] [place], [place] [phone] Tala Alvarez RN [address] [place] [address] documented as of this encounter Visit Diagnoses Not on filedocumented in this encounter Home Health Visit - Care Plan Visit Details Visit Type -SN PRN HOME VISI T Discipline -Residential Problems Problem Description Start Date [...] reconciliation as indicated. Pharmacy information: Description: [facility] Problem:HH - Medication Management Goal:HH - [...] convexity may help prevent leaks. CC to program manager transportation. Instruction Provided to: patient and caregiver Response [...] DEVICE PRODUCT NAME AND SIZE: GLORIA NICOLASIMS- [id number]- 1-PIECE COLOPLAST 08449. Problem:HH - Ostomy Management Goal:HH - Demonstrate/verbali [...] Completed documented in this encounter Care Teams Speech Therapy Assistant Relationship Specialty Start Date End Date Pcp, Unknown PCP - General 02/23/23 documented as of this encounter Additional Source Comments The information contained in this document represents components of the legal health record. It is not the complete legal health record.[facility]
--- OUTSIDE RECORDS SUMMARY | 2024-08-14 10:28 | XMS_ITS | Encounter Summary ---
Author Organization [facility] Address [phone] [place] [address] Care Team Providers Care Stone Engraver Name Role Phone Pcp, Unknown Primary Care Provider Unavailabl e Reason for Visit * Auth/Cert (Routine) Specialty Diagnoses / Procedures Referred By Contac t Referred To Contact Referral ID Status Reason Start Date Expiration Date Visits Re quested Visits Authorized [id number] 1 1 Encounter Details Date Type Department Care Team (Late st Contact Info) Description 07/28/2024 12:30 PM EST Home Care Visit [facility] [address] [place], [place] [phone] Tala Alvarez RN [address] [place] [address] [email or web address] SN PRN HOME VISIT Social History Tobacco [...] 2:00 AM EST Home Care Visit [facility] [address] [place], [place] [phone] Tala Alvarez RN [address] [place] [address] [email or web address] 08/18/2024 1:00 AM EST Home Care Visit [facility] [address] [place] [phone] Tala Alvarez, PAMELA [address] [place] [address] [email or web address] 08/22/2024 1:30 AM EDT Home Care Visit [facility] [address] [place] [phone] Tala Alvarez, PAMELA [address] [place] [address] [email or web address] 08/25/2024 12:30 AM EDT Home Care Visit [facility] [address] [place] [phone] Tala Alvarez RN [address] [place] [address] [email or web address] 08/29/2024 2:00 AM EDT Home Care Visit [facility] [address] [place] [phone] Tala Alvarez, PAMELA [address] [place] [address] [email or web address] 09/01/2024 12:30 AM EDT Home Care Visit [facility] [address] [place] [phone] Tala Alvarez, PAMELA [address] [place] [address] [email or web address] 09/05/2024 1:30 AM EDT Home Care Visit [facility] [address] [place] [phone] Tala Alvarez, PAMELA [address] [place] [address] [email or web address] 09/08/2024 12:30 AM EDT Home Care Visit [facility] [address] [place], [place] [phone] Tala Alvarez RN [address] [place] [address] 09/12/2024 1:00 AM EDT Home [facility] [address] [place], [place] [phone] Tala Alvarez RN [address] [place] [address] [email or web address] 09/15/2024 Home Care Visit [facility] [address] [place] [phone] Tala Alvarez RN [address] [place] [address] [email or web address] 09/19/2024 Appointment [facility] [address] [place] [phone] Tala Alvarez RN [address] [place] [address] documented as of this encounter Visit Diagnoses Not on filedocumented in this encounter Home Health Visit - Care Plan Visit Details Visit Type -SN PRN HOME VISI T Discipline -Senior Living Problems Problem Description Start Date Status Goals [...] medication reconciliation as indicated. Pharmacy information: Description: [facility] Problem:HH - Medication Management Goal:HH - Safe [...] to learn ileostomy mangement. Pt will require delivery driver assistant or move to living placement where assistance [...] from clogging filter. Pt verbalizes understanding. Suggested ALLERGIST/IMMUNOLOGIST PHYSICIAN via V[facility] to help explain options for care to address her inability to care for stoma. Agreeable to ALLERGIST/IMMUNOLOGIST PHYSICIAN visit. Had return call from PCP office with VO for ALLERGIST/IMMUNOLOGIST PHYSICIAN. Instruction Provided to: patient Response to Instruction/Teachin [...] Completed documented in this encounter Care Teams Stone Engraver Relationship Specialty Start Date End Date Pcp, Unknown PCP - General 02/23/23 documented as of this encounter Additional Source Comments The information contained in this document represents components of the legal health record. It is not the complete legal health record.[facility]
--- OUTSIDE RECORDS SUMMARY | 2024-08-14 10:29 | XMS_ITS | Encounter Summary ---
Author Organization [facility] Address [phone] [place] [address] Care Team Providers Care Survey Coordinator Name Role Phone Pcp, Unknown Primary Care Provider Unavailabl e Reason for Visit * Auth/Cert (Routine) Specialty Diagnoses / Procedures Referred By Contac t Referred To Contact Referral ID Status Reason Start Date Expiration Date Visits Re quested Visits Authorized [id number] 1 1 Encounter Details Date Type Department Care Team (Late st Contact Info) Description 08/04/2024 7:30 PM EST [facility] Visit [facility] [address] [place], [place] [phone] Avani Simmons RN [address] [place] [address] [email or web address] SN PRN HOME VISIT Social History Tobacco [...] Visit [facility] [address] [place], [place] [phone] Tala Alvarez RN [address] [place] [address] 08/18/2024 1:00 AM EST Home Care Visit [facility] [address] [place] [phone] Tala Alvarez, PAMELA [address] [place] [address] 08/22/2024 1:30 AM EDT Home Care Visit [facility] [address] [place] [phone] Tala Alvarez, PAMELA [address] [place] [address] 08/25/2024 12:30 AM EDT Home Care Visit [facility] [address] [place] [phone] Tala Alvarez RN [address] [place] [address] 08/29/2024 2:00 AM EDT Home Care Visit [facility] [address] [place] [phone] Tala Alvarez, PAMELA [address] [place] [address] 09/01/2024 12:30 AM EDT Home Care Visit [facility] [address] [place] [phone] Tala Alvarez, PAMELA [address] [place] [address] 09/05/2024 1:30 AM EDT Home Care Visit [facility] [address] [place] [phone] Tala Alvarez, PAMELA [address] [place] [address] 09/08/2024 12:30 AM EDT Home Care Visit [facility] [address], [place] [phone] Tala Alvarez RN [address] [place] [address] 09/12/2024 1:00 AM EDT [facility] [address], [place] [phone] Tala Alvarez RN [address] [place] [address] 09/15/2024 Home Care Visit [facility] [address] [place] [phone] Tala Alvarez RN [address] [place] [address] 09/19/2024 Appointment [facility] [address], [place] [phone] Tala Alvarez RN [address] [place] [address] documented as of this encounter Visit Diagnoses Not on filedocumented in this encounter Home Health Visit - Care Plan Visit Details Visit Type -SN PRN HOME VISI T Discipline -Correction Problems Problem Description Start Date [...] denies any pain. I/E when to call [facility]/911. Instruction Provided to: patient and caregiver Response [...] Completed documented in this encounter Care Teams Survey Coordinator Relationship Specialty Start Date End Date Pcp, Unknown PCP - General 02/23/23 documented as of this encounter Additional Source Comments The information contained in this document represents components of the legal health record. It is not the complete legal health record.[facility]
--- OUTSIDE RECORDS SUMMARY | 2024-08-14 10:29 | XMS_ITS | Encounter Summary ---
Author Organization [facility] Address [phone] [place] [address] Care Team Providers Care Manager Human Capital Name Role Phone Pcp, Unknown Primary Care Provider Unavailabl e Reason for Visit * Auth/Cert (Routine) Specialty Diagnoses / Procedures Referred By Contac t Referred To Contact Referral ID Status Reason Start Date Expiration Date Visits Re quested Visits Authorized [id number] 1 1 Encounter Details Date Type Department Care Team (Late st Contact Info) Description 08/01/2024 10:45 AM EST Home Care Visit [facility] [address] [place] [address] Yehuda Moore RN [address] [place] [address] [email or web address] SN HOME VISIT Social History Tobacco Use [...] 2:00 AM EST Home Care Visit [facility] [address] [place], [place] [phone] Tala Alvarez RN [address] [place] [address] [email or web address] 08/18/2024 1:00 AM EST Home Care Visit [facility] [address] [place] [phone] Tala Alvarez, PAMELA [address] [place] [address] [email or web address] 08/22/2024 1:30 AM EDT Home Care Visit [facility] [address] [place] [phone] Tala Alvarez, PAMELA [address] [place] [address] [email or web address] 08/25/2024 12:30 AM EDT Home Care Visit [facility] [address] [place] [phone] Tala Alvarez RN [address] [place] [address] [email or web address] 08/29/2024 2:00 AM EDT Home Care Visit [facility] [address] [place] [phone] Tala Alvarez, PAMELA [address] [place] [address] [email or web address] 09/01/2024 12:30 AM EDT Home Care Visit [facility] [address] [place] [phone] Tala Alvarez, PAMELA [address] [place] [address] [email or web address] 09/05/2024 1:30 AM EDT Home Care Visit [facility] [address] [place] [phone] Tala Alvarez, PAMELA [address] [place] [address] [email or web address] 09/08/2024 12:30 AM EDT Home Care Visit [facility] [address] [place], [place] [phone] Tala Alvarez RN [address] [place] [address] [email or web address] 09/12/2024 1:00 AM EDT Home Care [facility] [address] [place], [place] [phone] Tala Alvarez RN [address] [place] [address] [email or web address] 09/15/2024 Home Care Visit [facility] [address] [place] [phone] Tala Alvarez RN [address] [place] [address] [email or web address] 09/19/2024 Appointment [facility] [address] [place], [place] [phone] Tala Alvarez RN [address] [place] [address] [email or web address] documented as of this encounter Visit Diagnoses Not on filedocumented in this encounter Home Health Visit - Care Plan Visit Details Visit Type -SN HOME VISIT Discipline -Halfway Problems Problem Description Start Date Status Goals [...] this visit HH - Ostomy Management Disciplines: Halfway 11/27/2023 Active 1 goal linked to scheduled/document [...] hydration-verbalize understanding. I/E on when to call [facility]/911. Pt. has follow up with GI specialist [...] skin integrity Problem:HH - Standard of Care Goal: - [...] ILEOSTOMY DEVICE PRODUCT NAME AND SIZE: [facility]- [id number]- 1-PIECE COLOPLAST [id number]. Problem:HH - Ostomy Management Goal:HH - Demonstrate/verbalize [...] documented in this encounter Care Teams Manager Human Capital Relationship Specialty Start Date End Date Pcp, Unknown PCP - General 02/23/23 documented as of this encounter Additional Source Comments The information contained in this document represents components of the legal health record. It is not the complete legal health record.[facility]
--- OUTSIDE RECORDS SUMMARY | 2024-08-14 10:29 | XMS_ITS | Encounter Summary ---
Author Organization [facility] Address [phone] [place] [address] Care Team Providers Care Accounts Payable Coordinator Name Role Phone Pcp, Unknown Primary Care Provider Unavailabl e Reason for Visit * Auth/Cert (Routine) Specialty Diagnoses / Procedures Referred By Contac t Referred To Contact Referral ID Status Reason Start Date Expiration Date Visits Re quested Visits Authorized [id number] 1 1 Encounter Details Date Type Department Care Team (Late st Contact Info) Description 08/11/2024 9:00 AM EST Home Care Visit [facility] [address] [place] [phone] Tala Alvarez, RN [address] [place] [address] [email or web address] SN HOME VISIT Social [...] Sign Reading Time Taken Comments Blood Pressure 122/78 08/11/2024 9:31 AM EST Pulse 97 08/11/2024 9:31 AM EST Temperature 36.4 ??C (97.5 ??F) 08/11/2024 9:31 AM ES T Respiratory Rate 18 08/11/2024 9:31 AM EST Oxygen Saturation 97% 08/11/2024 9:31 AM EST Inhaled Oxygen Concentration - - Weight - - Height - - Body Mass Index - - documented in this encounter Plan of Treatment Upcoming Encounters Date Type Department Care Team (Late st Contact Info) Description 08/15/2024 2:00 AM EST Home Care Visit [facility] [address] [place] [phone] Tala Alvarez RN [address] [place] [address] 08/18/2024 1:00 AM EST Home Care Visit [facility] [address] [place] [phone] Tala Alvarez RN [address] [place] [address] 08/22/2024 1:30 AM EDT Home Care Visit [facility] [address] [place] [phone] Tala Alvarez RN [address] [place] [address] 08/25/2024 12:30 AM EDT Home Care Visit [facility] [address] [place] [phone] Tala Alvarez RN [address] [place] [address] 08/29/2024 2:00 AM EDT Home Care Visit [facility] [address] [place] [phone] Tala Alvarez, PAMELA [address] [place] [address] 09/01/2024 12:30 AM EDT Home Care Visit [facility] [address] [place] [phone] Tala Alvarez RN [address] [place] [address] 09/05/2024 1:30 AM EDT Home Care Visit [facility] [address] [place] [phone] Tala Avlarez RN [address] [place] [address] 09/08/2024 12:30 AM EDT Home Care Visit [facility] [address] [place] [phone] Tala Alvarez RN [address] [place] [address] 09/12/2024 1:00 AM EDT [facility] [address] [place] [phone] Tala Alvarez RN [address] [place] [address] 09/15/2024 Home Care Visit [facility] [address] [place] [phone] Tala Alvarez RN [address] [place] [address] 09/19/2024 Appointment [facility] [address] [place] [phone] Tala Alvarez RN [address] [place] [address] documented as of this encounter Visit Diagnoses [...] related to medication errors and/or interactions Scheduled - Complete medication review every visit and medication reconciliation as indicated. Pharmacy information: Description: [facility] Problem:HH - Medication Management Goal:HH - Safe medication management, avoid unnecessary harm related to medication errors and/or interactions Scheduled - Focus of care, teaching completed and plan for next visit Problem: - Focus of Care and Teaching Goal: - Communication and collaboration to achieve patient goals Scheduled HH - I/E management of care in [...] emergency related situation. Scheduled HH - Assess vital signs, pulse oximetry, pain, and as indicated, orthostatic vital signs Description: use agency-specific parameters Problem:HH - Standard of Care Goal:HH - Achieve care management for a safe to home/community discharge from homecare Scheduled HH - Assess skin integrity Problem:HH - Standard of Care Goal:HH - Achieve care management for a safe to home/community discharge from homecare Scheduled documented in this encounter Care Teams Accounts Payable Coordinator Relationship Specialty Start Date End Date Pcp, Unknown PCP - General 02/23/23 documented as of this encounter Additional Source Comments The information contained in this document represents components of the legal health record. It is not the complete legal health record.[facility]
--- OUTSIDE RECORDS SUMMARY | 2024-08-14 10:29 | XMS_ITS | Clinical Summary ---
Author Organization [facility] Address [phone] [facility] [place] [address] Care Team Providers Care Waterworks Employee Name Role Phone Pcp, Unknown Primary Care [...] Encounters Date Type Department Care Team Description 08/11/2024 9:00 AM EST Home Care Visit [facility] [address] [place] [phone] Tala Alvarez RN SN HOME VISIT 08/08/2024 9:30 AM EST Home Care Visit [facility] [address] [place] [phone] Tala Alvarez RN SN HOME VISIT 08/05/2024 8:00 PM EST Home Care Visit [facility] [address] [place] [address] Lula Ordonez RN SN PRN HOME VISIT 08/04/2024 7:30 PM EST Home Care Visit [facility] [address] [place] [address] Avani Simmons RN SN PRN HOME VISIT 08/04/2024 9:00 AM EST Home Care Visit [facility] [address] [place] [phone] Tala Alvarez RN SN HOME VISIT 08/01/2024 10:45 AM EST Home Care Visit [facility] [address] [place] [phone] Yehuda Moore RN SN HOME VISIT 07/31/2024 Episode Documentatio n Update [facility] [address] [place] [address] 07/29/2024 Home Care Visit [facility] [address] [place] [address] Lula Ordonez RN SN PRN HOME VISIT 07/28/2024 12:30 PM EST Home Care Visit [facility] [address] [place] [address] Tala Alvarez, RN SN PRN HOME VISIT 07/28/2024 Episode Documentatio n Update [facility] [address] [place] [address] Patience Danielle 07/27/2024 8:00 PM EST Home Care Visit [facility] [address] [place] [address] Celina Ann, PAMELA SN HOME VISIT 07/25/2024 9:45 AM EST Home Care Visit [facility] [address] [place] [address] Tala Alvarez, RN SN HOME VISIT 07/22/2024 7:30 AM EST Home Care Visit [facility] [address] [place] [address] Evelin Zurita, PAMELA SN PRN HOME VISIT 07/22/2024 Home Care Visit [facility] [address] [place] [address] Ernestine Gillette, [place] ADMINISTRATOR CLINICAL COMMUNICATION 07/21/2024 8:30 AM EST Home Care Visit [facility] [address] [place] [address] Tala Alvarez, RN SN OASIS RECERTIFICATION/FUP 07/21/2024 4:25 AM EST Home Care Visit [facility] [address] [place] [address] Hawa Espinoza, PAMELA SN PRN HOME VISIT 07/21/2024 Plan of Care Documentation [facility] [address] [place] [address] 07/18/2024 9:45 AM EST Home Care Visit [facility] [address] [place] [address] Tala Alvarez, RN SN HOME VISIT 07/15/2024 1:30 AM EST Home Care Visit [facility] [address] [place], [place] [phone] Olga Finley LPN [employer] DEPART[employer] CHAIR HOME VISIT 07/12/2024 8:15 AM EST Home Care Visit [facility] [address] [place] [address] Tala Alvarez RN SN PRN HOME VISIT 07/12/2024 Episode Documentatio n Update [facility] [address] [place] [address] 07/11/2024 9:30 AM EST Home Care Visit [facility] [address] [place] [address] Tala Alvarez, RN SN HOME VISIT 07/07/2024 8:15 AM EST Home Care Visit [facility] [address] [place] [address] Tala Alvarez, RN SN HOME VISIT 07/04/2024 9:00 AM EST Home Care Visit [facility] [address] [place] [address] Olga Finley LPN [employer] DEPARTMENT CHAIR HOME VISIT 07/04/2024 1:30 AM EST Home Care Visit [facility] [address] [place] [address] Darlene Jolly, PAMELA SN HOME VISIT 07/03/2024 2:00 AM EST Home Care Visit [facility] [address] [place] [address] Darlene Jolly, RN SN HOME VISIT 07/02/2024 5:00 AM EST Home Care Visit [facility] [address] [place] [phone] Lula Ordonez, RN SN PRN HOME VISIT 06/29/2024 4:25 AM EST Home Care Visit [facility] [address] [place] [address] Hawa Espinoza, PAMELA SN PRN HOME VISIT 06/27/2024 10:30 AM EST Home Care Visit [facility] [address] [place] [address] Tala Alvarez, PAMELA SN HOME VISIT 06/24/2024 9:00 PM EST Home Care Visit [facility] [address] [place] [address] Lula Ordonez, PAMELA SN PRN HOME VISIT 06/23/2024 1:00 AM EST Home Care Visit [facility] [address] [place] [address] Olga Finley LPN [employer] DEPARTMENT CHAIR HOME VISIT 06/22/2024 8:15 PM EST Home Care Visit [facility] [address] [place] [address] Whit Cortez RN SN PRN HOME VISIT 06/20/2024 8:45 AM EST Home Care Visit [facility] [address] [place] [address] Eri Chambers LPN [employer] DEPARTMENT CHAIR HOME VISIT 06/18/2024 Episode Documentatio n Update [facility] [address] [place] [address] Justin Castro 06/16/2024 8:45 AM EST Home Care Visit [facility] [address] [place] [address] Eri Chambers LPN [employer] DEPARTMENT CHAIR HOME VISIT 06/13/2024 1:30 PM EST Home Care Visit [facility] [address] [place] [address] Tala Alvarez, RN SN PRECEPTOR CO-VISIT 06/13/2024 12:45 PM EST Home Care Visit [facility] [address] [place] [address] Yehuda Moore RN SN HOME VISIT 06/09/2024 2:00 PM EST Home Care Visit [facility] [address] [place] [address] Megan Alonso RN SN HOME VISIT 06/07/2024 8:00 AM EST Home Care Visit [facility] [address] [place] [address] Eri Chambers LPN [employer] DEPARTMENT CHAIR PRN HOME VISIT 06/06/2024 8:45 AM EST Home Care Visit [facility] [address] [place] [address] Eri Chambers LPN [employer] DEPARTMENT CHAIR HOME VISIT 06/02/2024 8:30 AM EST Home Care Visit [facility] [address] [place] [address] Eri Chambers LPN [employer] DEPARTMENT CHAIR HOME VISIT 05/30/2024 8:30 AM EST Home Care Visit [facility] [address] [place] [address] Eri Chambers LPN [employer] DEPARTMENT CHAIR HOME VISIT 05/29/2024 Episode Documentatio n Update [facility] [address] [place] [address] Patience Danielle 05/24/2024 Plan of Care Documentation [facility] [address] [place] [address] 05/23/2024 11:00 AM EST Home Care Visit [facility] [address] [place] [address] Tala Alvarez RN SN OASIS RECERTIFICATION/FUP 05/19/2024 8:30 AM EST Home [facility] Visit [facility] [address] [place] [phone] Tala Alvarez RN SN HOME VISIT 05/19/2024 Home Care Visit [facility] [address] [place] [phone] Sweta Bolanos, PT CASE COMMUNICATION 05/18/2024 Episode Documentatio n Update [facility] [address] [place] [phone] 05/17/2024 6:05 PM EST Home Care [facility] [address] [place] [address] Hawa Espinoza RN SN PRN HOME VISIT 05/16/2024 9:45 AM EST Home Care Visit [facility] [address] [place] [address] Tala Alvarez RN SN HOME VISIT from Last 3 Months Social [...] 2:00 AM EST Home Care Visit [facility] [address] [place] [phone] Tala Alvarez, PAMELA [address] [place] [address] [email or web address] 08/18/2024 1:00 AM EST Home Care Visit [facility] [address] [place] [phone] Tala Alvarez RN [address] [place] [address] [email or web address] 08/22/2024 1:30 AM EDT Home Care Visit [facility] [address] [place] [phone] Tala Alvarez, PAMELA [address] [place] [address] [email or web address] 08/25/2024 12:30 AM EDT Home Care Visit [facility] [address] [place] [phone] Tala Alvarez, PAMELA [address] [place] [address] [email or web address] 08/29/2024 2:00 AM EDT Home Care Visit [facility] [address] [place] [phone] Tala Alvarez, PAMELA [address] [place] [address] [email or web address] 09/01/2024 12:30 AM EDT Home Care Visit [facility] [address] [place] [phone] Tala Alvarez, PAMELA [address] [place] [address] [email or web address] 09/05/2024 1:30 AM EDT Home Care [facility] [address] [place] [phone] Tala Alvarez RN [address] [place] [address] [email or web address] 09/08/2024 12:30 AM EDT Home Care Visit [facility] [address] [place] [phone] Tala Alvarez RN [address] [place] [address] [email or web address] 09/12/2024 1:00 AM EDT Home Care [facility] [address] [place] [phone] Tala Alvarez RN [address] [place] [address] [email or web address] 09/15/2024 Home Care Visit [facility] [address] [place] [phone] Tala Alvarez RN [address] [place] [address] [email or web address] 09/19/2024 Appointment [facility] [address] [place] [phone] Tala Alvarez RN [address] [place] [address] [email or web address] Health Maintenance Due Date Last Done Comments [...] Self [address] [place], [place] Leanderilets, Randi Personal/Family Self [address] [place], [place] Desilets, Randi Personal/Family Self [address] [facility] [place] [address] Desilets, Randi Personal/Family Self [address] [address] Desilets, Randi Personal/Family Self [address] [facility] [place] [address] Desilets, Randi Personal/Family Self [address] [facility] [address] Desilets, Randi Personal/Family Self [address] [facility] [place] [address] Desilets, Randi Personal/Family Self [address] [place] [place] [address] Care Teams Waterworks Employee Relationship Specialty Start Date End Date Pcp, Unknown PCP - General 02/23/23 Additional Source Comments The information contained in this document represents components of the legal health record. It is not the complete legal health record.[facility]
--- OUTSIDE RECORDS SUMMARY | 2024-08-14 10:29 | XMS_ITS | Encounter Summary ---
Author Organization [facility] Address [phone] [place] [address] Care Team Providers Care Needle Punch Machine Operator Name Role Phone Pcp, Unknown Primary Care Provider Unavailabl e Reason for Visit * Auth/Cert (Routine) Specialty Diagnoses / Procedures Referred By Contac t Referred To Contact Referral ID Status Reason Start Date Expiration Date Visits Re quested Visits Authorized [id number] 1 1 Encounter Details Date Type Department Care Team (Late st Contact Info) Description 08/05/2024 8:00 PM EST Home Care Visit [facility] [address] [place], [place] [phone] Lula Ordonez RN [address] [place] [address] [email or web address] SN PRN HOME VISIT Social History Tobacco [...] Visit [facility] [address] [place], [place] [phone] Tala Alvarez RN [address] [place] [address] 08/18/2024 1:00 AM EST Home Care Visit [facility] [address] [place] [phone] Tala Alvarez, PAMELA [address] [place] [address] 08/22/2024 1:30 AM EDT Home Care Visit [facility] [address] [place] [phone] Tala Alvarez, PAMELA [address] [place] [address] 08/25/2024 12:30 AM EDT Home Care Visit [facility] [address] [place] [phone] Tala Alvarez RN [address] [place] [phone] 08/29/2024 2:00 AM EDT Home Care Visit [facility] [address] [place] [phone] Tala Alvarez, PAMELA [address] [place] [address] 09/01/2024 12:30 AM EDT Home Care Visit [facility] [address] [place] [phone] Tala Alvarez, PAMELA [address] [place] [address] 09/05/2024 1:30 AM EDT Home Care Visit [facility] [address] [place] [phone] Tala Alvarez, PAMELA [address] [place] [address] 09/08/2024 12:30 AM EDT Home Care Visit [facility] [address] [place] [phone] Tala Alvarez RN [address] [place] [address] [email or web address] 09/12/2024 1:00 AM EDT [facility] [address] [place] [phone] Tala Alvarez RN [address] [place] [address] 09/15/2024 Home Care Visit [facility] [address] [place] [phone] Tala Alvarez RN [address] [place] [address] 09/19/2024 Appointment [facility] [address] [place] [phone] Tala Alvarez RN [address] [place] [address] [email or web address] documented as of this encounter Visit Diagnoses Not on filedocumented in this encounter Home Health Visit - Care Plan Visit Details Visit Type -SN PRN HOME VISI T Discipline -Group Home Problems Problem Description Start Date Status [...] medication reconciliation as indicated. Pharmacy information: Description: [facility] Problem:HH - Medication Management Goal:HH - Safe [...] situation. Completed HH - Assess skin integrity Problem: [...] refused documented in this encounter Care Teams Needle Punch Machine Operator Relationship Specialty Start Date End Date Pcp, Unknown PCP - General 02/23/23 documented as of this encounter Additional Source Comments The information contained in this document represents components of the legal health record. It is not the complete legal health record.[facility]
--- OUTSIDE RECORDS SUMMARY | 2024-08-14 10:29 | XMS_ITS | Encounter Summary ---
Author Organization [facility] Address [phone] [place] [address] Care Team Providers Care Account Resolution Specialist Name Role Phone Pcp, Unknown Primary Care Provider Unavailabl e Encounter Details Date Type Department Care Team (Late st Contact Info) Description 07/28/2024 Episode Documentatio n Update [facility] [address] [place], [place] [phone] Patience Danielle [address] [place] [address] Social History Tobacco Use Types Packs/Day Years [...] 2:00 AM EST Home Care Visit [facility] [address] [place], [place] [phone] Tala Alvarez RN [address] [place] [address] 08/18/2024 1:00 AM EST Home Care Visit [facility] [address] [place], [place] [phone] Tala Alvarez, PAMELA [address] [place] [address] [email or web address] 08/22/2024 1:30 AM EDT Home Care Visit [facility] [address] [place] [phone] Tala Alvarez, RN [address] [place] [address] [email or web address] 08/25/2024 12:30 AM EDT Home Care Visit [facility] [address] [place] [phone] Tala Alvarez, RN [address] [place] [address] [email or web address] 08/29/2024 2:00 AM EDT Home Care Visit [facility] [address] [place] [phone] Tala Alvarez, RN [address] [place] [address] [email or web address] 09/01/2024 12:30 AM EDT Home Care Visit [facility] [address] [place] [phone] Tala Alvarez, RN [address] [place] [address] [email or web address] 09/05/2024 1:30 AM EDT Home Care Visit [facility] [address] [place] [phone] Tala Alvarez, RN [address] [place] [address] [email or web address] 09/08/2024 12:30 AM EDT Home Care Visit [facility] [address] [place] [phone] Tala Alvarez, RN [address] [place] [address] [email or web address] 09/12/2024 1:00 AM EDT Home Care Visit [facility] [address] [place] [phone] Tala Alvarez, PAMELA [address] [place] [address] [email or web address] 09/15/2024 Home Care Visit [facility] [address] [place] [phone] Tala Alvarez RN [address] [place] [address] 09/19/2024 App[facility]ment [facility] [address] [place] [phone] Tala Alvarez RN [address] [place] [address] [email or web address] documented as of this encounter Visit Diagnoses Not on filedocumented in this encounter Care Teams Account Resolution Specialist Relationship Specialty Start Date End Date Pcp, Unknown PCP - General 02/23/23 documented as of this encounter Additional Source Comments The information contained in this document represents components of the legal health record. It is not the complete legal health record.[facility]
--- OUTSIDE RECORDS SUMMARY | 2024-08-14 10:29 | XMS_ITS | Encounter Summary ---
Author Organization [facility] Address [phone] [place] [address] Care Team Providers Care Skin Care Consultant Name Role Phone Pcp, Unknown Primary Care Provider Unavailabl e Reason for Visit * Auth/Cert (Routine) Specialty Diagnoses / Procedures Referred By Contac t Referred To Contact Referral ID Status Reason Start Date Expiration Date Visits Re quested Visits Authorized [id number] 1 1 Encounter Details Date Type Department Care Team (Late st Contact Info) Description 08/04/2024 9:00 AM EST Home Care Visit [facility] [address] [place] [phone] Tala Alvarez, RN [address] [place] [address] [email or web address] SN HOME VISIT Social History Tobacco Use [...] 2:00 AM EST Home Care Visit [facility] [address] [place] [phone] Tala Alvarez RN [address] [place] [address] [email or web address] 08/18/2024 1:00 AM EST Home Care Visit [facility] [address] [place] [phone] Tala Alvarez RN [address] [place] [address] [email or web address] 08/22/2024 1:30 AM EDT Home Care Visit [facility] [address] [place] [phone] Tala Alvarez RN [address] [place] [address] [email or web address] 08/25/2024 12:30 AM EDT Home Care Visit [facility] [address] [place] [phone] Tala Alvarez RN [address] [place] [address] [email or web address] 08/29/2024 2:00 AM EDT Home Care Visit [facility] [address] [place] [phone] Tala Alvarez, PAMELA [address] [place] [address] [email or web address] 09/01/2024 12:30 AM EDT Home Care Visit [facility] [address] [place] [phone] Tala Alvarez RN [address] [place] [address] [email or web address] 09/05/2024 1:30 AM EDT Home Care Visit [facility] [address] [place] [phone] Tala Alvarez RN [address] [place] [address] [email or web address] 09/08/2024 12:30 AM EDT Home Care Visit [facility] [address] [place] [phone] Tala Alvarez RN [address] [place] [address] [email or web address] 09/12/2024 1:00 AM EDT Home Care Visit [facility] [address] [place] [phone] Tala Alvarez RN [address] [place] [address] [email or web address] 09/15/2024 Home Care Visit [facility] [address] [place] [phone] Tala Alvarez RN [address] [place] [address] [email or web address] 09/19/2024 Appointment [facility] [address] [place] [phone] Tala Alvarez RN [address] [place] [phone] [email or web address] documented as of this encounter Visit Diagnoses Not on filedocumented in this encounter Home Health Visit - Care Plan Visit Details Visit Type -SN HOME VISIT Discipline -Correction Problems Problem Description Start Date [...] this visit HH - Ostomy Management Disciplines: Correction 11/27/2023 Active 1 goal linked to scheduled/document [...] contact from Disabled at Risk or her [facility] to discuss community supports to assume ostomy care after VNA discharge. Informed that VNA PROGRAM ANALYST will be scheduled for a one time [...] situation: When to call your Home Care Team/[facility], ER plans, supplies, evacuation, when to contact [...] TYPE: ILEOSTOMY DEVICE PRODUCT NAME AND SIZE: [employer]- [id number]- 1-PIECE COLOPLAST [id number]. Problem:HH - Ostomy Management Goal:HH - Demonstrate/verbalize [...] Completed documented in this encounter Care Teams Skin Care Consultant Relationship Specialty Start Date End Date Pcp, Unknown PCP - General 02/23/23 documented as of this encounter Additional Source Comments The information contained in this document represents components of the legal health record. It is not the complete legal health record.[facility]
--- OUTSIDE RECORDS SUMMARY | 2024-08-14 10:30 | XMS_ITS | Continuity of Care Document ---
Author Organization [facility] Kevin Sarath lt Address [address] [place] [address]- Care Team Providers Care Ruby Software Developer Name Role Phone Brett Su MD Primary Care Physician Encounter [facility] Date(s): 07/13/24 - 08/13/24 [facility] Adult [address] [place] [address]- Attending Physician: Brett Su MD Encounter Type: Pre Office Visit Allergies, Adverse Reactions, Alerts Substance Criticality Severity Reaction Reaction Severity Status ibuprofen 1 Diarrhea Nausea Active atorvastatin unknown Active acetaminophen 2, 3 Unknown Nausea Resolved aspirin stomach problems Active simvastatin Unknown Aching muscles Active Augmentin MOUTH SORES Active Tylenol irritated [...] Given pneumococcal 20-valent conjugate vaccine 01/18/23 Recorded [id number] 12y+ bivalent booster vax 01/27/23 Recorded tetanus-diphtheria toxoids (Td) 07/16/21 Given SARS-CoV-2 mRNA (ywnknce-xjdz-jnakx) vax 07/16/21 Given Influenza Virus Vaccine (oldterm) [...] Given 1Result Comment: [03/08/2017] [facility] [place] 2Location History: [facility] 3Admin Note: [facility] 4Admin Note: per pt [facility]cvd [facility] 5Admin Note: given in clinic 6Admin Note: WING 7Admin Note: clinic ronnie Medications Albuterol (Eqv-ProAir HFA) 90 mcg/inh inhalation aerosol 2 puffs, Inhalation, Every 6 hours, PRN NEEDED FOR WHEEZING, # 8.5 each, 2 Refills, Maintenance,07/28/24 12:20:00 PM EST, [facility], 25, INHALE 2 PUFFS BY MOUTH EVERY [...] Replace Required Details, Route to Pharmacy Electronically, [facility]/pharmacy #[id number], 163, cm, 03/17/24 15:48:00 EDT, [...] Refills, Maintenance, 07/14/24 4:29:00 PM EST, Tablet, [facility]/pharmacy #[id number], Partial fill upon patient request [...] 4:10:00 PM EDT, Route to Pharmacy Electronically, [facility]/pharmacy #[id number], 163, cm, 03/17/24 15:48:00 EDT, [...] Team Personnel Name: Yoselyn Mccormick RN Position: [facility] RN Member Role: Primary Care Nurse Name: Rand Baez RN Position: [facility] RN Member Role: Primary Care Nurse Name: Bethany Soares RN Position: S RN Member Role: Primary Care Nurse Name: Pam Harmon RN Position: [facility] RN Member Role: Primary Care Nurse Name: Graciela Harmon RN Position: S RN Member Role: Primary Care Nurse Name: Stella Ramos RN Position: S RN Member Role: Primary Care Nurse Name: Brett Su MD Position: S Physician - Primary Care Member Role: PCP Address: [address] [place] [address]- Telecom: Name: Vangie Chun RN Position: [facility] RN Member Role: Primary Care Nurse Name: Leidy Gray RN Position: [facility] RN Member Role: Primary Care Nurse Name: Jimbo Boswell RN Position: [facility] SN RN Member Role: Primary Care Nurse Name: James Alvarez RN Position: [facility] RN Member Role: Primary Care Nurse Name: Milena Rios RN Position: [facility] RN Member Role: Primary Care Nurse Name: Oralia Ashley RN Position: [facility] RN Member Role: Primary Care Nurse Name: Phyllis Holman RN Position: [facility] RN Member Role: Primary Care Nurse Name: Raya Jewell RN Position: [facility] RN Member Role: Primary Care Nurse Name: Harini Aponte RN Position: [facility] RN Member Role: Primary Care Nurse Name: Dorita Brock RN Position: [facility] RN Member Role: Primary Care Nurse Name: Nya Liu RN Position: [facility] RN Member Role: Primary Care Nurse Name: Geri Galvan RN Position: [facility] RN Member Role: Primary Care Nurse Name: Eri Mars RN Position: [facility] RN Member Role: Primary Care Nurse Name: Lula Velasco RN Position: [facility] RN Member Role: Primary Care Nurse Name: Guerline Benavides RN Position: [facility] RN Member Role: Primary Care Nurse Name: Fatimah Galaviz RN Position: [facility] KAREN RN W/OE and Tasks Member Role: Primary Care Nurse Care Team Related Persons Name: KIAN TAMAYO Name: MARTA LEWIS Name: GUERRERO AGUILAR Name: ITALO CORNEJO Insurance Providers Guarantor name: NICOLAS TAMAYO Health Plan Information #: 2 Payer: [facility] Member Number: [id number] Policy Number: NA Group Number: NA Health Plan Information #: [address]: [facility] Member Number: [id number] Policy Number: NA Group Number: [id number]
--- OUTSIDE RECORDS SUMMARY | 2024-08-14 10:30 | XMS_ITS | Encounter Summary ---
Author Organization [facility] Address [phone] [place] [address] Care Team Providers Care Press Technician Name Role Phone Unknown, Unknown Primary Care Provider Brett Whitaker MD Primary Care Provider [phone] Pcp, Unknown Primary Care Provider Unavailabl e Encounter Details Date Type Department Care Team (Late st Contact Info) Description 01/21/2023 Transcribe Orders [facility] Specimen Processing [address] [place] [address] Stewart Carlson MD [address] [facility], [address], [address] [place] [address] Anemia, unspecified type (Primary Dx) Social History [...] Visit [facility] [address] [place], [place] [phone] Tala Alvarez RN [address] [place] [address] 08/18/2024 1:00 AM EST Home Care Visit [facility] [address] [place] [phone] Tala Alvarez, PAMELA [address] [place] [address] 08/22/2024 1:30 AM EDT Home Care Visit [facility] [address] [place] [phone] Tala Alvarez RN [address] [place] [address] 08/25/2024 12:30 AM EDT Home Care Visit [facility] [address] [place] [phone] Tala Alvarez, PAMELA [address] [place] [address] 08/29/2024 2:00 AM EDT Home Care Visit [facility] [address] [place] [phone] Tala Alvarez, PAMELA [address] [place] [address] 09/01/2024 12:30 AM EDT Home Care Visit [facility] [address] [place] [phone] Tala Alvarez, PAMELA [address] [place] [address] 09/05/2024 1:30 AM EDT Home Care Visit [facility] [address] [place] [phone] Tala Alvarez, PAMELA [address] [place] [address] 09/08/2024 12:30 AM EDT Home Care Visit [facility] [address] [place] [phone] Tala Alvarez, PAMELA [address] [place] [address] 09/12/2024 1:00 AM EDT Home Care Visit [facility] [address] [place] [phone] Tala Alvarez, PAMELA [address] [place] [address] 09/15/2024 Home Care Visit [facility] [address] [place] [phone] Tala Alvarez RN [address] [place] [address] 09/19/2024 Appointment [facility] [address] [place] [phone] Tala Alvarez RN [address] [place] [address] documented as of this encounter Results * Vitamin B12 (01/21/2023 5:50 AM EDT) VITAMIN B12 1,019 232 - 1,245 pg/mL [facility] 01/21/2023 5:50 AM EDT 01/21/2023 12:07 PM EDT Stewart Carlson MD LAB BLOOD ORDERABLES [address] [address] * (ABNORMAL) Iron and iron binding capacity (01/21/2023 5:50 AM EDT) IRON 67 30 - 160 ug/dL [facility] IRON BINDING CAPACITY 222(L) 228 - 428 ug/dL [facility] TRANSFERRIN SATURAT. 30 15 - 50 % [facility] 01/21/2023 5:50 AM EDT 01/21/2023 12:07 PM EDT Stewart Carlson MD LAB BLOOD ORDERABLES [address] [address] * Ferritin (01/21/2023 5:50 AM EDT) FERRITIN 56 13 - 150 ug/L [facility] 01/21/2023 5:50 AM EDT 01/21/2023 12:07 PM EDT Stewart Carlson MD LAB BLOOD ORDERABLES [address] [address] * (ABNORMAL) Folate (01/21/2023 5:50 AM EDT) Pathologist [facility] FOLIC ACID 3.0(L) 4.2 - 19.9 ng/mL [facility] 01/21/2023 5:50 AM EDT 01/21/2023 12:07 PM EDT Stewart Carlson MD LAB BLOOD ORDERABLES Performing Organization Address [facility]/ZIP Co de Phone Number [address] [address] * (ABNORMAL) CBC (01/21/2023 5:50 AM EDT) Pathologist [facility] WBC 6.33 4.00 - 11.00 K/uL [facility] RBC 2.92(L) 3.72 - 5.30 M/uL [facility] HGB 8.4(L) 11.4 - 15.9 g/dL [facility] HCT 27.7(L) 34.2 - 46.8 % [facility] PLT 228 140 - 430 K/uL [facility] MCV 94.9 78.0 - 97.0 fL [facility] MCH 28.8 25.0 - 33.0 pg [facility] MCHC 30.3(L) 32.0 - 36.0 g/dL [facility] RDW 16.9(H) 11.0 - 16.0 % [facility] MPV 11.5 8.4 - 12.8 fl [facility] 01/21/2023 5:50 AM EDT 01/21/2023 12:07 PM EDT Stewart Carlson MD LAB BLOOD ORDERABLES Performing Organization Address City/State/[facility] Co de Phone Number [address] [address] documented in this encounter Visit Diagnoses Diagnosis Anemia, unspecified type- Primary documented in this encounter Care Teams Press Technician Relationship Specialty Start Date End Date Unknown, Unknown, MD PCP - General 01/21/23 01/27/23 Brett Su MD [address] [place] [address] PCP - General Internal Medicine 01/28/23 01/28/23 Pcp, Unknown PCP - General 02/23/23 documented as of this encounter Additional Source Comments The information contained in this document represents components of the legal health record. It is not the complete legal health record.[facility]
[2024-08-14] MEDS: levoFLOXacin 500 MG TABLET PO (17:34)
--- NOTE | 2024-08-14 18:00 | MHC.SHP ---
Pre-Procedural Eval Section A - 24 Hr Update-Section A only Date of Service: 08/14/24 The patient is an INPATIENT: No Changes since office visit: No Cold of Flu in the past 2 weeks, No New Medical Problems, No Changes in Medication and No Patient answered all questions The patient has been examined within 24 hours of the surgical procedure. The History & Physical has been completed within 30 days and I have reviewed it.: Yes Section B - Complete if H&P > 30 days Chief Complaint: Interstitial cystitis (chronic) without hematuria Details of Present Illness: Hydrodistention Allergies: Allergies Allergy/AdvReac Type Severity Reaction Status Date / Time amoxicillin [From AUGMENTIN] Allergy Severe SEVERE Verified 08/14/24 16:20 DIARRHEA Zurotdv-POO-DzP Reductase Allergy Intermediate muscle Verified 08/14/24 16:20 Inhibitor aches, [PMZMIZD-CCP-PTQ REDUCTASE cramps INHIBITOR] acetaminophen [ACETAMINOPHEN] AdvReac Severe GI upset. Verified 08/14/24 16:20 Pt confirmed NOT allergic to oxycodone NSAIDS (Non-Steroidal AdvReac Severe Gastrointestinal Verified 08/14/24 16:20 Anti-Inflamma Upset Plan I have reviewed the history and physical and performed a pertinent physical examination on my patient. No changes have occurred unless specified. Time Spent With Patient Time: Total time managing care of this patient today ____ minutes.
--- NOTE | 2024-08-14 18:04 | HO.ANESPROP2 ---
HPI - Anesthesia Eval Consult details Narrative: for hydrodistention PMFSH Active Problems Active Problems: All Active Problems Lumbosacral spondylosis (Acute) Lumbar radiculopathy (Acute) Pelvic floor dysfunction in female (Acute) Urinary urgency (Acute) Bladder pain (Acute) Fracture of fifth metatarsal bone of left foot (Acute) Bladder spasm (Acute) Interstitial cystitis (Acute) Sacral nerve stimulator present (Acute) Past Medical History Medical History (Updated 08/14/24 @ 16:20 by Jalyn Dubose RN) Sacral nerve stimulator present Colostomy in place On beta morgan at home Anxiety SVT (supraventricular tachycardia) Depression Back pain History of gastrostomy tube placement Hx of ulcerative colitis Hx of cystitis History of anxiety Asthma Elevated cholesterol Family History Family history of problems with anesthesia: No Surgical History Surgical History (Updated 08/14/24 @ 16:21 by Jalyn Dubose RN) History of bowel diversion surgery History of tubal ligation History of endometrial ablation History of bladder surgery History of Problems with Anesthesia: No Social History Social History Household Members: Significant Other Housing: Apartment Are you a primary career technical education instructor to a significant other at home: No Do you presently have visiting nurse or other home services: No Alcohol intake: former Patient Tobacco Use Status: Current everyday Tobacco user Tobacco use type: Cigarette Cigarettes Per Day: 3 Years Smoked: 25 Smoked in Last 30 Days: Yes Use of substances other than those prescribed or required for medical reasons: No Have you been hit, kicked, punched, or otherwise hurt by someone within the past year? If so, by whom?: No Are you DNR?: No Advance Directives: No Advance Directives Information Provided: No Advance Directives on File: No Recently lost weight without trying: No How much weight loss: Not applicable Eating poorly because of decreased appetite: No Nutrition screen score: 0 Nutrition Risks: No Nutritional Risk Patient : No : No Poor oral hygiene: Yes (missing teeth) Current occupational status: disabled Meds Allergies Allergy/AdvReac Type Severity Reaction Status Date / Time amoxicillin [From AUGMENTIN] Allergy Severe SEVERE Verified 08/14/24 16:20 DIARRHEA Uahnijf-VKT-KaQ Reductase Allergy Intermediate muscle Verified 08/14/24 16:20 Inhibitor aches, [[id number] REDUCTASE cramps INHIBITOR] acetaminophen [ACETAMINOPHEN] AdvReac Severe GI upset. Verified 08/14/24 16:20 Pt confirmed NOT allergic to oxycodone NSAIDS (Non-Steroidal AdvReac Severe Gastrointestinal Verified 08/14/24 16:20 Anti-Inflamma Upset Home Medications ?Medication ?Instructions ?Recorded ?Confirmed ?Last Taken ?Type albuterol sulfate 90 mcg/actuation 2 puff inhalation Q4-6H PRN 04/25/20 08/14/24 04/13/22 History aerosol inhaler (ProAir HFA) Shortness Of Breath metoprolol succinate 25 mg 12.5 mg PO DAILY 08/08/21 08/14/24 08/14/24 History tablet,extended release 24 hr omeprazole 20 mg capsule,delayed 20 mg PO DAILY 11/03/21 08/14/24 08/14/24 History release trazodone 50 mg tablet 50 mg PO BEDTIME 10/15/23 08/14/24 Unknown History lorazepam 0.5 mg tablet 0.5 mg PO NEEDED PRN Anxiety 04/07/24 08/14/24 08/14/24 12:30 History trazodone 100 mg tablet 100 mg PO BEDTIME 04/07/24 08/14/24 Unknown History primidone 50 mg tablet 50 mg PO BID 06/13/24 08/14/24 Unknown History Exam Height,Weight and Vital Signs: Height 5 ft 5 in Weight 56.699 kg Last Vital Signs Temp 98.1 F 08/14/24 16:24 Pulse 69 08/14/24 16:24 Resp 16 08/14/24 16:24 BP 113/64 08/14/24 16:24 Pulse Ox 100 08/14/24 16:24 O2 Del Method Room Air 08/14/24 16:24 Airway Mallampati Class: I TM Dist: >3cm Neck ROM: Full Loose/Missing/Broken Teeth: Yes and Lower Heart: ok Lungs: ok Assessment and Plan Assessment Anesthesia Assessment: Anesthesia Plan Discussed and Chart Reviewed Final Anesthetic Review Family History of Problems with Anesthesia: No History of Problems with Anesthesia: No NPO: Yes ASA Class: III Final Preanesthetic Review: No Changes in Pt Med Stat, Meds/Allgs Chart Reviewed, Consent Obtained/Reviewed and Anes Risks/Benef Reviewed Patient Risk: Intermediate Procedure Risk: Low Anesthetic Plan Anesthetic Plan: GA and Agree w/ Assess. and Plan Disposition: Standard PACU
--- NOTE | 2024-08-14 18:05 | PC.NURSE ---
Report given to Marisela Lynch [employer].
[2024-08-14] MEDS: fentaNYL citrate/PF 100 MCG/2 ML VIAL 50 MCG IVPUSH (18:45)
--- NOTE | 2024-08-14 18:54 | P.OP_ITS ---
Operative Note Operative Note Date of Service: 08/14/24 Narrative: PreOperative Diagnosis:? Interstitial cystitis with pelvic pain Post Operative Diagnosis:? Interstitial cystitis with pelvic pain Procedure:? Hydrodistention Surgeon: Dr Mk Cornelius Anesthesia:? General Indications for procedure: ?interstitial cystitis Procedure: After informed consent was verified the patient was brought to the operating room and placed in a supine position.? Anesthesia was administered per protocol.? The patient was placed in a modified dorsal lithotomy position and prepped and draped in sterile fashion.? Safety pause time-out was observed.? Antibiotics being given. A 22 [place] cystoscope was used to empty the bladder.? A mixture of bupivacaine lidocaine gel 20 cc was instilled into the bladder and allowed to sit for 2-3 minutes Cystoscopy performed with 22 [place]ank[place] cystoscope. Hydrodistention of the bladder was performed.? The bladder was filled and allowed to sit for 3 minutes.? Filling was from a height of 1 m. Cystoscopy revealed glomerulations and collagenization consistent with interstitial cystitis. Second filling of the bladder was performed in similar fashion.? Terminal hematuria noted. A mixture of bupivacaine lidocaine gel 20 cc was instilled into the bladder. The bladder was emptied.? B and O suppository placed per rectum at completion of procedure. The patient tolerated procedure well was extubated in operating room transferred in stable condition to the recovery area.? Appropriate postprocedure pain medication was provided.
[2024-08-14] MEDS: oxyCODONE HCl Immed Release 5 MG TABLET PO (18:55)
== END 2024-08-14 19:36 | disposition home or self-care (01) ==
PROVIDERS: PCP Internal Medicine; Visit Provider Urology
PROC: 0T7B7ZZ Dilation of Bladder, Via Natural or Artificial Opening (ICD-10-PCS; CPT 52260; principal; 2024-08-14 18:30)
DX: N30.10 Interstitial cystitis (chronic) without hematuria (principal); R10.2 Pelvic and perineal pain; R39.89 Other symptoms and signs involving the genitourinary system; Z96.82 Presence of neurostimulator; E78.00 Pure hypercholesterolemia, unspecified; J45.909 Unspecified asthma, uncomplicated; F41.9 Anxiety disorder, unspecified; Z93.3 Colostomy status; Z79.899 Other long term (current) drug therapy; Z88.1 Allergy status to other antibiotic agents; Z88.6 Allergy status to analgesic agent; Z88.8 Allergy status to other drugs, medicaments and biological substances; Z98.890 Other specified postprocedural states; F17.210 Nicotine dependence, cigarettes, uncomplicated
CPT/HCPCS: 52260; J0665; J2003; J2250; J2704; J3010

== ENCOUNTER → 2024-08-14 15:44 | Outpatient (BNV) | payer OTHER, SELFPAY | PROVIDERS: PCP Internal Medicine; Visit Provider Urology | DX: N30.10 Interstitial cystitis (chronic) without hematuria (principal) | CPT/HCPCS: 52260 ==

== ENCOUNTER 2024-09-06 18:18 | Emergency (ER) | payer OTHER, SELFPAY ==
--- NOTE | 2024-09-06 18:26 | ECG_ITS ---
Test Reason : CHEST PAIN Blood Pressure : */* mmHG Vent. Rate : 87 BPM Atrial Rate : 87 BPM P-R Int : 136 ms QRS Dur : 74 ms QT Int : 380 ms P-R-T Axes : 43 11 1 degrees QTcB Int : 457 ms Normal sinus rhythm Normal ECG When compared with ECG of 08-Aug-2024 18:21, No significant change was found Referred By: Generic ED Physician Electronically Signed By: ANGELIA PARISH MD
[2024-09-06 18:37] VITALS: BP 106/66; BP 130/80; PULSE 80; PULSE 88; RESP 16; TEMP 36.7; O2SAT 100; O2SAT 98; BMI 21.6
--- NOTE | 2024-09-06 18:40 | PC.NURSE ---
pt arrives with an EMS line 22g left ankle
[2024-09-06 18:51] VITALS: BP 109/64; PULSE 76; RESP 16; O2SAT 99
[2024-09-06] MEDS: LORazepam 2 MG/ML VIAL 1 MG IVPUSH (19:35)
--- NOTE | 2024-09-06 19:50 | ED_ITS ---
HPI - Chest Pain General Chief Complaint: Chest Pain Stated Complaint: chest pain, nausea, gauge in left ankle Time Seen by Provider: 09/06/24 19:04 Source: patient Mode of arrival: ambulatory Limitations: no limitations History of Present Illness ED Provider: HPI narrative: Patient is 59 years old with history of ulcerative colitis status post partial colectomy with colostomy history of interstitial cystitis with bladder stimulator, anxiety, SVT was at [facility] 4 days ago for atypical chest pain comes here again as noticed sharp pain in the right side of the chest increased anxiety and chronic pain patient been having the similar kind of pain for last 3 years with multiple hospitalization and workup been negative patient's used to be on iron tablets which she stopped about a month ago colostomy has normal color stool no melena no blood in the stool Related Data Home Medications ?Medication ?Instructions ?Recorded ?Confirmed albuterol sulfate 90 mcg/actuation 2 puff inhalation Q4-6H PRN 04/25/20 08/14/24 aerosol inhaler (ProAir HFA) Shortness Of Breath metoprolol succinate 25 mg 12.5 mg PO DAILY 08/08/21 08/14/24 tablet,extended release 24 hr omeprazole 20 mg capsule,delayed 20 mg PO DAILY 11/03/21 08/14/24 release trazodone 50 mg tablet 50 mg PO BEDTIME 10/15/23 08/14/24 lorazepam 0.5 mg tablet 0.5 mg PO NEEDED PRN Anxiety 04/07/24 08/14/24 trazodone 100 mg tablet 100 mg PO BEDTIME 04/07/24 08/14/24 primidone 50 mg tablet 50 mg PO BID 06/13/24 08/14/24 Previous Rx's ?Medication ?Instructions ?Recorded cyclobenzaprine 5 mg tablet 5 mg PO BEDTIME PRN muscle spasm 07/08/24 #14 tabs oxybutynin chloride 5 mg 5 mg PO DAILY 30 days #30 tabs 07/17/24 tablet,extended release 24 hr oxycodone 5 mg tablet 5 mg PO TID PRN pain 2 days #6 tabs 08/11/24 oxycodone 5 mg tablet 5 mg PO BID pain 30 days #60 tabs 08/14/24 ferrous sulfate 325 mg (65 mg 325 mg PO DAILY #90 tabs 09/06/24 iron) tablet Allergies Allergy/AdvReac Type Severity Reaction Status Date / Time amoxicillin [From AUGMENTIN] Allergy Severe SEVERE Verified 09/06/24 18:39 DIARRHEA Uzztpev-LQN-KeN Reductase Allergy Intermediate muscle Verified 08/14/24 16:20 Inhibitor aches, [[id number] REDUCTASE cramps INHIBITOR] acetaminophen [ACETAMINOPHEN] AdvReac Severe GI upset. Verified 08/14/24 16:20 Pt confirmed NOT allergic to oxycodone NSAIDS (Non-Steroidal AdvReac Severe Gastrointestinal Verified 08/14/24 16:20 Anti-Inflamma Upset oxycodone [From Percocet] AdvReac Gastrointestinal Verified 09/06/24 18:37 Upset Review of Systems 2 Review of Systems: Yes all other systems are reviewed and are negative PMFSH Past Medical History Medical History Sacral nerve stimulator present Colostomy in place On beta morgan at home Anxiety SVT (supraventricular tachycardia) Depression Back pain History of gastrostomy tube placement Hx of ulcerative colitis Hx of cystitis History of anxiety Asthma Elevated cholesterol Surgical History History of bowel diversion surgery History of tubal ligation History of endometrial ablation History of bladder surgery Social History Social History Household Members: Significant Other Housing: Apartment Are you a primary foster care case manager to a significant other at home: No Do you presently have visiting nurse or other home services: No Alcohol intake: former Patient Tobacco Use Status: Current everyday Tobacco user Tobacco use type: Cigarette Cigarettes Per Day: 3 Years Smoked: 25 Advance Directives: No Advance Directives Information Provided: No Current occupational status: disabled Physical Exam 2 Vital Signs: Vital Signs: Last Vital Signs Temp 97.6 F 09/06/24 21:47 Pulse 84 09/06/24 21:47 Resp 16 09/06/24 21:47 BP 100/49 L 09/06/24 21:47 Pulse Ox 100 09/06/24 21:47 O2 Del Method Room Air 09/06/24 21:47 BMI result Body Mass Index 21.6 Appearance: Alert. Oriented X3. No acute distress. Anxiety Eyes: Pallor++ ENT: Pharynx normal. Oral Mucosa moist Neck: Normal inspection. Neck supple. CVS: Normal heart rate and rhythm. Pulses normal. Respiratory: No respiratory distress. Equal air entry bilateral, no wheezing/rales/rhonchi Abdomen: Soft and nontender. Bowel sounds are present, no mass palpable, no CVA tenderness colostomy bag in place stool is brown color Skin: Skin warm and dry. Normal skin color. Normal skin turgor. Extremities: No lower extremity edema. No calf tenderness Neuro: Oriented X 3. No motor deficit. No sensory deficit.No cerebellar signs , cranial nerves II-XII intact Medications Administered Discontinued Medications Generic Name Dose Route Start Last Admin Trade Name Freq PRN Reason Stop Dose Admin Ferrous Sulfate 324 mg 09/06/24 20:46 09/06/24 20:57 Ferrous Sulfate 324 Mg Tablet. PO 09/06/24 20:47 324 mg ONCE ONE Administration Lorazepam 1 mg 09/06/24 19:18 09/06/24 19:35 Lorazepam 2 Mg/Ml Vial IVPUSH 09/06/24 19:19 1 mg ONCE ONE Administration Morphine Sulfate 4 mg 09/06/24 21:13 09/06/24 21:31 Morphine Sulfate 4 Mg/Ml Cartridge IVPUSH 09/06/24 21:14 4 mg ONCE ONE Administration Protocol Ondansetron HCl 4 mg 09/06/24 21:13 09/06/24 21:31 Ondansetron Hcl 4 Mg/2 Ml Vial IVPUSH 09/06/24 21:14 4 mg ONCE ONE Administration Medical Decision Making Medical Decision Making [facility] Narrative: Patient's anxiety chronic pain with iron-deficiency anemia not taking her iron pills noticed to have hemoglobin was 7.2 had atypical chest pain high sensitive troponin negative EKG without ischemic changes will start patient on iron tablets patient asking for pain medication will give advised to follow up with pain clinic and start taking iron tablet Differential Diagnosis Differential Diagnoses: The differential diagnosis associated with the presentation includes Admission/Observation Consideration of admission/observation: Escalation of care including admission/observation considered Lab Data [facility] Lab Attestation statement: I reviewed the patient's lab results. 09/06/24 19:59 09/06/24 19:59 Labs: Lab Results 09/06/24 Range/Units 19:59 WBC 5.8 (4.8-10.8) X10*3/uL RBC 3.52 L (4.20-5.50) X10*6/uL Hgb 7.2 L (12.0-16.0) g/dl Hct 23.6 L (37.0-47.0) % MCV 67.0 L (80.0-98.0) fL MCH 20.5 L (27.0-33.0) pg MCHC 30.5 L (31.0-35.0) g/dl RDW 18.8 H (11.0-16.0) % Plt Count 245 (160-400) X10*3/uL MPV 8.7 L (9.4-12.3) fL Immature Gran % (Auto) 0.2 (0.0-0.4) % Neut % (Auto) 43.5 L (45-73) % Lymph % (Auto) 45.6 H (20-40) % [place] % (Auto) 9.0 (2-11) % Eos % (Auto) 1.2 (0-4) % Baso % (Auto) 0.5 (0-2) % Lymph # (Auto) 2.6 (1.2-4.9) X10*3/uL [place] # (Auto) 0.5 (0.1-1.2) X10*3/uL Eos # (Auto) 0.1 (0.0-0.4) X10*3/uL Baso # (Auto) 0.0 (0.0-0.2) X10*3/uL Abs Immat Gran (auto) 0.01 (0.00-0.03) X10*3/uL Absolute Neuts (auto) 2.5 (2.0-8.3) x10*3/uL Absolute Nucleated RBC 0.000 (0.0-0.012) X10*3/uL Nucleated RBC % (auto) 0.0 (0.0-0.2) /100WBC Sodium 138 (135-145) mmol/L Potassium 4.1 (3.3-5.1) mmol/L Chloride 108 (96-108) mmol/L Carbon Dioxide 25 (22-29) mmol/L Anion Gap 9 L (12-20) BUN 23 H (9-16) mg/dL Creatinine 0.72 (0.5-1.4) mg/dL Estim Creat Clear Calc 75.7 Estimated GFR > 60 Random Glucose 95 (60-115) mg/dL Calcium 8.7 (8.4-10.2) mg/dL Magnesium 2.0 (1.6-2.6) mg/dL Iron 16 L (30-160) mcg/dL TIBC 388 (228-428) mcg/dL % Saturation 4 L (15-50) % Unsat Iron Binding 372 ug/dL Total Bilirubin 0.1 (0.0-1.0) mg/dL AST 15 (5-31) U/L ALT < 6 (0-31) U/L Alkaline Phosphatase 98 (39-117) U/L Troponin I High Sens < 2.7 (<3.5-17.0) ng/L Total Protein 6.3 L (6.5-8.0) g/dL Albumin 3.4 L (3.5-5.0) g/dL Independent Interpretation I performed an independent interpretation of an: EKG Interpretation: Normal sinus rhythm heart rate 87 beats per minute normal interval normal axis no acute ST-T changes no acute ischemia Discharge Plan Discharge Clinical Impression: Chronic pain syndrome, Iron (Fe) deficiency anemia Patient Disposition: Home, Self-Care Instructions: Chronic Pain (ED), Iron Deficiency Anemia (ED) Additional Instructions: Take pain medication anxiety medication as prescribed by your PCP Follow up with the pain clinic Take your iron pill Prescriptions: New ferrous sulfate 325 mg (65 mg iron) tablet 325 mg PO DAILY Qty: 90 2RF No Action oxybutynin chloride 5 mg tablet extended release 24hr 5 mg PO DAILY 30 Days Qty: 30 1RF albuterol sulfate [ProAir HFA] 90 mcg/actuation Hfa Aerosol Inhaler 2 puff INHALATION Q4-6H PRN (Reason: Shortness Of Breath) trazodone 50 mg tablet 50 mg PO BEDTIME cyclobenzaprine 5 mg tablet 5 mg PO BEDTIME PRN (Reason: muscle spasm) Qty: 14 0RF oxycodone 5 mg tablet 5 mg PO BID 30 Days Qty: 60 0RF Rx Instructions: Partial Fill upon patient request. metoprolol succinate 25 mg tablet extended release 24 hr 12.5 mg PO DAILY omeprazole 20 mg capsule,delayed release(DR/EC) 20 mg PO DAILY primidone 50 mg tablet 50 mg PO BID oxycodone 5 mg tablet 5 mg PO TID PRN (Reason: pain) 2 Days Qty: 6 0RF Rx Instructions: Partial Fill upon patient request. lorazepam 0.5 mg tablet 0.5 mg PO NEEDED PRN (Reason: Anxiety) trazodone 100 mg tablet 100 mg PO BEDTIME Interventions: ED Discharge Assessment Last Done: 09/06/24 21:47 Discharge Date/Time: 09/06/24 21:48 Print Language: Hong Konger
[2024-09-06 20:04] LABS: MANUAL DIFF FLAG NO
[2024-09-06 20:05] LABS: Basophils Percent Auto 0.5 % (0-2); Eosinophils Absolute Auto 0.1 X10*3/uL (0.0-0.4); Eosinophils Percent Auto 1.2 % (0-4); Hematocrit 23.6 % (37.0-47.0); Hemoglobin 7.2 g/dl (12.0-16.0); Imm Gran Abs Auto 0.01 X10*3/uL (0.00-0.03); Imm Gran Pct Auto 0.2 % (0.0-0.4); Lymphocytes Absolute Auto 2.6 X10*3/uL (1.2-4.9); Lymphocytes Percent Auto 45.6 % (20-40); Mean Corpuscular HGB Conc 30.5 g/dl (31.0-35.0); Mean Corpuscular Hemoglobin 20.5 pg (27.0-33.0); Mean Platelet Volume 8.7 fL (9.4-12.3); Monocytes Absolute Auto 0.5 X10*3/uL (0.1-1.2); Neutrophils Absolute Auto 2.5 x10*3/uL (2.0-8.3); Neutrophils Percent Auto 43.5 % (45-73); Platelet Count 245 X10*3/uL (160-400); Red Blood Count 3.52 X10*6/uL (4.20-5.50); Red Cell Distribution Width 18.8 % (11.0-16.0); White Blood Count 5.8 X10*3/uL (4.8-10.8)
[2024-09-06 20:20] LABS: Alanine Aminotransferase < 6 U/L (0-31); Albumin Level 3.4 g/dL (3.5-5.0); Alkaline Phosphatase 98 U/L (39-117); Anion Gap 9 (12-20); Aspartate Amino Transferase 15 U/L (5-31); Bilirubin Total 0.1 mg/dL (0.0-1.0); Blood Urea Nitrogen 23 mg/dL (9-16); Calcium 8.7 mg/dL (8.4-10.2); Carbon Dioxide 25 mmol/L (22-29); Chloride 108 mmol/L (96-108); Creatinine Clr Calc Pharmacy 75.7; Estimated Glomerular Filt Rate > 60; Glucose Random 95 mg/dL (60-115); Potassium 4.1 mmol/L (3.3-5.1); Sodium 138 mmol/L (135-145); Total Protein 6.3 g/dL (6.5-8.0)
[2024-09-06 20:26] LABS: Troponin-I High Sensitivity < 2.7 ng/L (<3.5-17.0)
[2024-09-06] MEDS: Ferrous Sulfate 324 MG TABLET.DR PO (20:57)
[2024-09-06 21:06] VITALS: BP 100/49; PULSE 84; RESP 16; TEMP 36.4; O2SAT 100
[2024-09-06 21:09] LABS: Iron 16 mcg/dL (30-160); Percent Iron Saturation 4 % (15-50); Total Iron Binding Capacity 388 mcg/dL (228-428); Unsaturated Iron Binding 372 ug/dL
[2024-09-06] MEDS: ondansetron HCL 4 MG/2 ML VIAL IVPUSH (21:31)
[2024-09-06] MEDS: Morphine Sulfate 4 MG/ML CARTRIDGE IVPUSH (21:31)
[2024-09-06 21:47] VITALS: BP 100/49; PULSE 84; RESP 16; TEMP 36.4; O2SAT 100
== END 2024-09-06 21:48 | disposition home or self-care (01) ==
PROVIDERS: Emergency Provider Internal Medicine; PCP Internal Medicine
DX: G89.4 Chronic pain syndrome (principal); D50.9 Iron deficiency anemia, unspecified; F41.9 Anxiety disorder, unspecified; J45.909 Unspecified asthma, uncomplicated; Z79.899 Other long term (current) drug therapy
CPT/HCPCS: 36415; 80053; 83540; 83735; 84484; 85025; 93005; 96374; 96375; 99284; 99285; J2060; J2270; J2405

== ENCOUNTER → 2024-09-06 18:26 | Outpatient (BNV) | payer OTHER, SELFPAY | PROVIDERS: Emergency Provider Internal Medicine; PCP Internal Medicine; Visit Provider Internal Medicine Cardiovascular Disease | DX: R07.9 Chest pain, unspecified (principal) | CPT/HCPCS: 93010 ==

== ENCOUNTER 2024-10-09 11:00 | Day surgery (SDC) | payer OTHER, SELFPAY ==
--- OUTSIDE RECORDS SUMMARY | 2024-08-11 07:56 | XMS_ITS | Continuity of Care Document ---
Author Organization [facility] Kevin Sarath lt Address [address] [place] [address]- Care Team Providers Care Outreach Assistant Name Role Phone Sharlene STEWART, Brett Araujo Primary Care Physician Encounter [facility] Date(s): 07/11/24 - 08/10/24 [facility] Adult [address] [place] [address]- Encounter Type: Triage Allergies, Adverse Reactions, Alerts [...] Given pneumococcal 20-valent conjugate vaccine 01/18/23 Recorded [id number] 12y+ bivalent booster vax 01/27/23 Recorded tetanus-diphtheria toxoids (Td) 07/16/21 Given SARS-CoV-2 mRNA (rmxownz-prru-wyird) vax 07/16/21 Given Influenza Virus Vaccine (oldterm) [...] Given 1Result Comment: [03/08/2017] [facility] 2Location History: [facility] 3Admin Note: center [facility] 4Admin Note: per pt [facility]cvd [facility] 5Admin Note: given in clinic 6Admin Note: WING 7Admin Note: clinic ronnie Medications Albuterol (Eqv-ProAir HFA) 90 mcg/inh inhalation aerosol 2 puffs, Inhalation, Every 6 hours, PRN NEEDED FOR WHEEZING, # 8.5 each, 2 Refills, Maintenance,07/28/24 12:20:00 PM EST, [id number], 25, INHALE 2 PUFFS BY MOUTH EVERY [...] Required Details, Route to Pharmacy Electronically, [facility]/pharmacy #[id number], 163, cm, 03/17/24 15:48:00 EDT, [...] Refills, Maintenance, 07/14/24 4:29:00 PM EST, Tablet, [facility]/pharmacy #[id number], Partial fill upon patient request [...] 4:10:00 PM EDT, Route to Pharmacy Electronically, [facility]/pharmacy #[id number], 163, cm, 03/17/24 15:48:00 EDT, [...] Team Personnel Name: Yoselyn Mccormick RN Position: [facility] RN Member Role: Primary Care Nurse Name: Rand Baez RN Position: [facility] RN Member Role: Primary Care Nurse Name: Bethany Soares RN Position: [facility] RN Member Role: Primary Care Nurse Name: Pam Harmon RN Position: S RN Member Role: Primary Care Nurse Name: Graciela Harmon RN Position: S RN Member Role: Primary Care Nurse Name: Stella Ramos RN Position: [facility] RN Member Role: Primary Care Nurse Name: Brett Su MD Position: [facility] Physician - Primary Care Member Role: PCP Address: [address] [place] [phone]- Telecom: Name: Vangie Chun RN Position: [facility] RN Member Role: Primary Care Nurse Name: Leidy Gray RN Position: [facility] RN Member Role: Primary Care Nurse Name: Jimbo Boswell RN Position: [facility] SN RN Member Role: Primary Care Nurse Name: James Alvarez RN Position: [facility] RN Member Role: Primary Care Nurse Name: Milena Rios RN Position: [facility] RN Member Role: Primary Care Nurse Name: Oralia Ashley RN Position: [facility] RN Member Role: Primary Care Nurse Name: Phyllis Holman RN Position: [facility] RN Member Role: Primary Care Nurse Name: Raya Jewell RN Position: [facility] RN Member Role: Primary Care Nurse Name: Harini Aponte RN Position: [facility] RN Member Role: Primary Care Nurse Name: Dorita Brock RN Position: [facility] RN Member Role: Primary Care Nurse Name: Nya Liu RN Position: [facility] RN Member Role: Primary Care Nurse Name: Geri Galvan RN Position: [facility] RN Member Role: Primary Care Nurse Name: Eri Mars RN Position: [facility] RN Member Role: Primary Care Nurse Name: Lula Velasco RN Position: [facility] RN Member Role: Primary Care Nurse Name: Guerline Benavides RN Position: [facility] RN Member Role: Primary Care Nurse Name: Fatimah Galaviz RN Position: [facility] KAREN RN W/OE and Tasks Member Role: Primary Care Nurse Care Team Related Persons Name: KIAN TAMAYO Name: MARTA LEWIS Name: GUERRERO AGUILAR Name: ITALO CORNEJO Insurance Providers Guarantor name: NICOLAS SHIVALILY Health Plan Information #: 1 Payer: [facility] [employer] C[employer] Member Number: NA Policy Number: NA Group Number: NA Health Plan Information #: 2 Payer: [employer] Member Number: NA Policy Number: NA Group Number: NA
--- OUTSIDE RECORDS SUMMARY | 2024-08-11 07:56 | XMS_ITS | Encounter Summary ---
Author Organization [facility] Address [phone] [place] [id number] Care Team Providers Care Mainframe Systems Engineer Name Role Phone Pcp, Unknown Primary Care Provider Unavailabl e Reason for Visit * Auth/Cert (Routine) Specialty Diagnoses / Procedures Referred By Contac t Referred To Contact Referral ID Status Reason Start Date Expiration Date Visits Re quested Visits Authorized [id number] 1 1 Encounter Details Date Type Department Care Team (Late st Contact Info) Description 07/25/2024 9:45 AM EST Home Care Visit [facility] [address] [place] [phone] Tala Alvarez, RN [address] [place] [address] [email or web address] SN HOME VISIT Social History Tobacco Use [...] Care Team (Late st Contact Info) Description 08/11/2024 8:30 AM EST Home Care Visit [facility] [address] [place] [phone] Tala Alvarez RN [address] [place] [address] 08/15/2024 2:00 AM EST Home Care Visit [facility] [address] [place] [phone] Tala Alvarez RN [address] [place] [address] 08/18/2024 1:00 AM EST Home Care Visit [facility] [address] [place] [phone] Tala Alvarez RN [address] [place] [address] 08/22/2024 1:30 AM EDT Home Care Visit [facility] [address] [place] [phone] Tala lAvarez RN [address] [place] [address] 08/25/2024 12:30 AM EDT Home Care Visit [facility] [address] [place] [phone] Tala Alvarez RN [address] [place] [address] 08/29/2024 2:00 AM EDT Home [facility] Visit [facility] [address] [place] [phone] Tala Alvarez RN [address] [place] [address] 09/01/2024 12:30 AM EDT Home [facility] [address] [place] [phone] Tala Alvarez RN [address] [place] [address] 09/05/2024 1:30 AM EDT Home Care Visit [facility] [address] [place] [phone] Tala Alvarez RN [address] [place] [address] 09/08/2024 12:30 AM EDT Home [facility] Visit [facility] [address] [place] [phone] Tala Alvarez RN [address] [place] [address] 09/12/2024 1:00 AM EDT Home Care Visit [facility] [address] [place] [phone] Tala Alvarez, PAMELA [address] [place] [address] 09/15/2024 Home Care Visit [facility] [address] [place] [phone] Tala Alvarez, PAMELA [address] [place] [address] 09/19/2024 Appointment [facility] [address] [place] [phone] Tala Alvarez RN [address] [place] [address] documented as of this encounter Visit Diagnoses Not on filedocumented in this encounter Home Health Visit - Care Plan Visit Details Visit Type - HOME VISIT Discipline -Long Term Problems Problem Description Start [...] this visit HH - Ostomy Management Disciplines: Long Term 11/27/2023 Active 1 goal linked to scheduled/document [...] today, still has not heard from her [facility] cse environmental research project manager about status of wedge or ostomy [...] homecare Completed - Diet: Description: regular diet Problem:HH - Standard of Care Goal: - Achieve [...] lack of integrity. Problem: - Ostomy Management Goal: - Demonstrate/verbalize management of ostomy care and knowledge of complications Completed documented in this encounter Care Teams Mainframe Systems Engineer Relationship Specialty Start Date End Date Pcp, Unknown PCP - General 02/23/23 documented as of this encounter Additional Source Comments The information contained in this document represents components of the legal health record. It is not the complete legal health record.[facility]
--- OUTSIDE RECORDS SUMMARY | 2024-08-11 07:56 | XMS_ITS | Encounter Summary ---
Author Organization [facility] Address [phone] [place] [address] Care Team Providers Care Senior Operations Manager Name Role Phone Pcp, Unknown Primary Care Provider Unavailabl e Reason for Visit * Auth/Cert (Routine) Specialty Diagnoses / Procedures Referred By Contac t Referred To Contact Referral ID Status Reason Start Date Expiration Date Visits Re quested Visits Authorized [id number] 1 1 Encounter Details Date Type Department Care Team (Late st Contact Info) Description 07/22/2024 7:30 AM EST Home Care Visit [facility] [address] [place] [phone] Evelin Zurita, PAMELA [address] [place] [address] [email or web address] SN PRN HOME VISIT Social History Tobacco [...] Care Visit [facility] [address] [place] [phone] Tala Alvarez RN [address] [place] [address] [email or web address] 08/15/2024 2:00 AM EST Home Care Visit [facility] [address] [place] [phone] Tala Alvarez RN [address] [place] [address] [email or web address] 08/18/2024 1:00 AM EST Home Care Visit [facility] [address] [place] [phone] Tala Alvarez RN [address] [place] [address] [email or web address] 08/22/2024 1:30 AM EDT Home Care Visit [facility] [address] [place] [phone] Tala Alvarez RN [address] [place] [address] [email or web address] 08/25/2024 12:30 AM EDT Home Care Visit [facility] [address] [place] [phone] Tala Alvarez RN [address] [place] [address] [email or web address] 08/29/2024 2:00 AM EDT Home Care Visit [facility] [address] [place] [phone] Tala Alvarez RN [address] [place] [address] [email or web address] 09/01/2024 12:30 AM EDT Home Care Visit [facility] [address] [place] [phone] Tala Alvarez RN [address] [place] [address] [email or web address] 09/05/2024 1:30 AM EDT Home Care Visit [facility] [address] [place] [phone] Tala Alvarez RN [address] [place] [address] [email or web address] 09/08/2024 12:30 AM EDT Home Care Visit [facility] [address] [place] [phone] Tala Alvarez RN [address] [place] [address] [email or web address] 09/12/2024 1:00 AM EDT Home Care Visit [facility] [address] [place] [phone] Tala Alvarez, PAMELA [address] [place] [address] [email or web address] 09/15/2024 Home Care Visit [facility] [address] [place] [phone] Tala Alvarez, PAMELA [address] [place] [address] [email or web address] 09/19/2024 Appointment [facility] [address] [place] [phone] Tala Alvarez RN [address] [place] [address] [email or web address] documented as of this encounter Visit Diagnoses Not on filedocumented in this encounter Home Health Visit - Care Plan Visit Details Visit Type -SN PRN HOME VISI T Discipline -Assisted Problems Problem Description Start Date Status Goals [...] this visit HH - Ostomy Management Disciplines: Assisted 11/27/2023 Active 1 goal linked to scheduled/document [...] DEVICE PRODUCT NAME AND SIZE: HELDER NICOLASIMS- [id number]- 1-PIECE COLOPLAST [id number]. Problem:HH - Ostomy Management Goal:HH - Demonstrate/verbalize [...] documented in this encounter Care Teams Senior Operations Manager Relationship Specialty Start Date End Date Pcp, Unknown PCP - General 02/23/23 documented as of this encounter Additional Source Comments The information contained in this document represents components of the legal health record. It is not the complete legal health record.[facility]
--- OUTSIDE RECORDS SUMMARY | 2024-08-11 07:56 | XMS_ITS | Encounter Summary ---
Author Organization [facility] Address [phone] [place] [address] Care Team Providers Care Armor Officer Name Role Phone Pcp, Unknown Primary Care Provider Unavailabl e Reason for Visit * Auth/Cert (Routine) Specialty Diagnoses / Procedures Referred By Contac t Referred To Contact Referral ID Status Reason Start Date Expiration Date Visits Re quested Visits Authorized [id number] 1 1 Encounter Details Date Type Department Care Team (Late st Contact Info) Description 07/27/2024 8:00 PM EST Home Care Visit [facility] [address] [place] [phone] Celina Ann RN [address] [place] [address] [email or web address] SN HOME VISIT Social History [...] Visit [facility] [address] [place] [phone] Tala Alvarez, PAMELA [address] [place] [address] [email or web address] 08/15/2024 2:00 AM EST Home Care Visit [facility] [address] [place] [phone] Tala Alvarez RN [address] [place] [address] [email or web address] 08/18/2024 1:00 AM EST Home Care Visit [facility] [address] [place] [phone] Tala Alvarez RN [address] [place] [address] [email or web address] 08/22/2024 1:30 AM EDT Home Care Visit [facility] [address] [place] [phone] Tala Alvarez, PAMELA [address] [place] [address] [email or web address] 08/25/2024 12:30 AM EDT Home Care Visit [facility] [address] [place] [phone] Tala Alvarez RN [address] [place] [address] [email or web address] 08/29/2024 2:00 AM EDT Home Care Visit [facility] [address] [place] [phone] Tala Alvarez, PAMELA [address] [place] [address] [email or web address] 09/01/2024 12:30 AM EDT Home Care Visit [facility] [address] [place] [phone] Tala Alvarez, PAMELA [address] [place] [address] [email or web address] 09/05/2024 1:30 AM EDT Home Care Visit [facility] [address] [place] [phone] Tala Alvarez RN [address] [place] [address] [email or web address] 09/08/2024 12:30 AM EDT Home Care Visit [facility] [address] [place] [phone] Tala Alvarez RN [address] [place] [address] [email or web address] 09/12/2024 1:00 AM EDT Home Care Visit [facility] [address] [place] [phone] Tala Alvarez, PAMELA [address] [place] [address] [email or web address] 09/15/2024 Home Care Visit [facility] [address] [place] [phone] Tala Alvarez, PAMELA [address] [place] [address] [email or web address] 09/19/2024 Appointment [facility] [address] [place] [phone] Tala Alvarez, PAMELA [address] [place] [address] [email or web address] documented as of this encounter Visit Diagnoses Not on filedocumented in this encounter Home Health Visit - Care Plan Visit Details Visit Type -SN HOME VISIT Discipline -Mcfp Problems Problem Description [...] patient has not selected an advanced directive Problem: - Advance Care Planning Goal:HH - Verbalize [...] of an emergency related situation. Completed - Establish an individualized emergency plan: Description: Evacuation Plan is: evacuate Priority Medical Needs are: N/A A triage code has been assigned. A triage code and emergency plan will be reassessed for continued accuracy. Specific risks based on location: extreme cold/snow, extreme heat, high winds, loss of utilities and severe storms An emergency supply list has been provided. Problem: - Emergency Planning - Knowledge of Goal:HH - Knowledge of options for managing care in the event of an emergency related situation. Completed HH - I/E infection Description: adhere to infection precautions, infection prevention measures and s/s of infection Problem: - Infection - Actual or Risk of Goal:HH - Patient will have no new infection; any new infection that occurs will be identified and treated promptly; existing infection will resolve without complication Completed - Assess infection risk and s/s Problem:HH - Infection - Actual or Risk of Goal:HH - Patient will have no new infection; any new infection that occurs will be identified and treated promptly; existing infection will resolve without complication Completed - Complete fall risk assessment scale Problem: - Falls - Risk of Goal: - Knowledge and management of fall prevention measures. Completed - I/E fall prevention measures Description: diagnosis/age [...] to home/community discharge from homecare Completed - Precautions Problem: - Standard of Care Goal:HH - [...] discharge from homecare Completed HH - I/E management of skin integrity and [...] - I/E pain management Problem: - Pain Goal: - Frequency of pain interfering with patient's activity or movement will improve with activity or movement by discharge. Completed - Ostomy management (type & device): Description: OSTOMY TYPE: ILEOSTOMY DEVICE PRODUCT NAME AND SIZE: HELDER SLIMS- [id number]- 1-PIECE COLOPLAST [id number]. Problem: - Ostomy Management Goal: - Demonstrate/verbalize management of ostomy care and knowledge of complications Completed [facility] Ostomy assessment: Stoma (measurement, appearance, flat/retracted, mucocutaneous separation, anselmo stoma irritation or breakdown) and signs of complications Description: Assess nutritional status, risk of body image issues, emotional needs, and coping skills. Problem: - Ostomy Management Goal: - Demonstrate/verbalize management of ostomy care and knowledge of complications Completed - I/E Ostomy management: Ostomy and Stoma care, signs of complications, nutrition/hydration needs, and coping strategies Problem: - Ostomy Management Goal: - Demonstrate/verbalize management of ostomy care and knowledge of complications Completed - Ostomy care Description: Specific Treatment: END LOOP ILEOSTOMY Change Device/Appliance every 2X/WEEK and PRN if leaking or lack of integrity. Problem: - Ostomy Management Goal: - Demonstrate/verbalize management of ostomy care and knowledge of complications Completed - Assess s/s of depression Problem: - Depression - Actual or Risk of Impairment Goal:HH - Demonstrate/verbalize improvement in depressive symptoms Completed HH - I/E anxiety management, causes, treatment options and coping mechanisms Problem:HH - Anxiety - Actual or Risk of Impairment Goal:HH - Decrease anxiety through knowledge and management of triggers. Completed documented in this encounter Care Teams Armor Officer Relationship Specialty Start Date End Date Pcp, Unknown PCP - General 02/23/23 documented as of this encounter Additional Source Comments The information contained in this document represents components of the legal health record. It is not the complete legal health record.[facility]
--- OUTSIDE RECORDS SUMMARY | 2024-08-11 07:56 | XMS_ITS | Encounter Summary ---
Author Organization [facility] Address [phone] [place] [address] Care Team Providers Care Addictions Recovery Specialist Name Role Phone Pcp, Unknown Primary Care Provider Unavailabl e Reason for Visit * Auth/Cert (Routine) Specialty Diagnoses / Procedures Referred By Contac t Referred To Contact Referral ID Status Reason Start Date Expiration Date Visits Re quested Visits Authorized [id number] 1 1 Encounter Details Date Type Department Care Team (Late Contact Info) Description 07/22/2024 Home Care Visit [facility] [address] [place], [place] [phone] Ernestine Gillette RN [address] [place], [place] [phone] [email or web address] TRIAGE CLINICAL COMMUNICATION Social History Tobacco Use [...] Department Care Team (Late Contact Info) Description 08/11/2024 8:30 AM EST Home Care Visit [facility] [address] [place], [place] [phone] Tala Alvarez RN [address] [place], [place] [phone] 08/15/2024 2:00 AM EST Home Care Visit [facility] [address] [place] [phone] Tala Alvarez RN [address] [place] [address] 08/18/2024 1:00 AM EST Home Care Visit [facility] [address] [place] [phone] Tala Alvarez RN [address] [place] [address] 08/22/2024 1:30 AM EDT Home Care Visit [facility] [address] [place] [phone] Tala Alvarez RN [address] [place] [address] 08/25/2024 12:30 AM EDT Home Care Visit [facility] [address] [place] [phone] Tala Alvarez RN [address] [place] [address] 08/29/2024 2:00 AM EDT Home Care Visit [facility] [address] [place] [phone] Tala Alvarez RN [address] [place] [address] 09/01/2024 12:30 AM EDT Home Care Visit [facility] [address] [place] [phone] Tala Alvarez RN [address] [place] [address] 09/05/2024 1:30 AM EDT Home Care Visit [facility] [address] [place] [phone] Tala Alvarez, PAMELA [address] [place] [address] [email or web address] 09/08/2024 12:30 AM EDT Home Care Visit [facility] [address] [place] [phone] Tala Alvarez RN [address] [place] [address] 09/12/2024 1:00 AM EDT Home Care Visit [facility] [address] [place] [phone] Tala Alvarez, PAMELA [address] [place] [address] 09/15/2024 Home Care Visit [facility] [address] [place] [phone] Tala Alvarez, PAMELA [address] [place] [address] 09/19/2024 Appointment [facility] [address] [place] [phone] Tala Alvarez RN [address] [place] [address] documented as of this encounter Visit Diagnoses Not on filedocumented in this encounter Care Teams Addictions Recovery Specialist Relationship Specialty Start Date End Date Pcp, Unknown PCP - General 02/23/23 documented as of this encounter Additional Source Comments The information contained in this document represents components of the legal health record. It is not the complete legal health record.[facility]
--- OUTSIDE RECORDS SUMMARY | 2024-08-11 07:56 | XMS_ITS | Data Portability ---
Author Organization [employer] in - Room [address] [employer] Address [address] [place] [address] Care Team Providers Care Icu Specialist Name Role Phone ELVI LAWANDA ADULT MEDICINE Referring Provider HIM [facility] OTHER Assessment Encounter Date Assessment Date Assessment LastModified by Organization Details LastModified Time 07/30/2023 07/30/2023 I provided real -time medical direction via phone for this encounter, and was available for additional phone based assistance as needed. I have reviewed and agree with the Assessment and Plan as documented by the Fill Manager. Patient given the opportunity to ask questions. As per above, service called for bladder pain and found this 58 riki with chronic interstitial cystitis c/b suprapubic pain. C/o 4d suprapubic sharp pain that is throbbing, knife-like and c/w prior episodes. She is soon to have hydroextension procedure. Last ketorlac > 1 wk prior. Regular PO food and fluid intake. Per corn miller on the scene, VSS and she is [...] assessment and plan as documented by the corn miller and would add/emphasize: Patient seen for acute [...] ketorolac 30 mg/mL injection solution 2023 024 [email or web address] [facility], [address] [place], [address], 4 19:46:11 ondansetr on HCl (PF) 4 mg/2 mL injection solution 2023 024 [facility], [address] [place], [address], 4 18:50:03 ketorolac 30 mg/mL injection solution 2023 024 [facility], [address] [place], [address], 4 18:50:03 Zofran 4 mg tablet 2023 024 SANDRA [facility], [address] [place], [address], 4 21:22:51 ketorolac 30 mg/mL injection solution 2023 024 [email or web address] [facility], [address] [place], [address], 4 21:23:56 ketorolac 30 mg/mL injection solution 2023 Adilene mayra [facility], [address] [facility] [address], [place], [address], 4 22:56:59 Patient TargetsNo targets recorded. Patient [...] n nausea Not available Not available 08/12/2022 20360 3 RxNorm Lula Camacho MD [address] [place] [address],[address], [place], [address], Habeas 3 16:51:49 1995 Augmentin medicatio n Not available Not available Not available 08/12/2022 53791 2 RxNorm got mouth sores Lula Camacho MD [address] [place] [address],[address], [place], [address], Habeas 3 16:52:05 1996 acetamino phen medicatio n Not available Not available Not available 08/12/2022 161 RxNorm Not Available [facility] - production 4 03:45:01 1997 simvastat in medicatio n Not available Not available Not available 08/12/2022 11461 RxNorm Lula Camacho MD [address] [place] [address],[address], [place], [address], Habeas 3 16:52:28 Medications Name Sig Start Date [...] Details Last Updated DateTime 4 98.4 [degF] 81595.5 12 g 98 % 98 % 18 /min 90 /min 104 mm[Hg] 64 mm[Hg] Not Available Yu Rong 4 21:02:10 Date Recorded Respiratory rate Body weight Oxygen saturation Oxygen saturation in Arterial blood by Pulse oximetry Body temperature Body height Heart rate Systolic blood pressure Diastolic blood pressure Systolic blood pressure Diastolic blood pressure Provider Name and Address Organization Details Last Updated DateTime 4 14 /min 90545.9 6 g 76 % 76 % 98.5 [degF] 165.1 cm 74 /min 98 mm[Hg] 64 mm[Hg] 95 mm[Hg] 56 mm[Hg] Not Available Yu Rong 4 20:24:53 Date Recorded Oxygen saturation Oxygen saturation in Arterial blood by Pulse oximetry Respiratory rate Heart rate Body temperature Systolic blood pressure Diastolic blood pressure Provider Name and Address Organization Details Last Updated DateTime 4 97 % 97 % 16 /min 80 /min 98.1 [degF] 110 mm[Hg] 64 mm[Hg] Not Available Yu Rong 4 19:12:03 Date Recorded Body temperature Respiratory rate Oxygen saturation Oxygen saturation in Arterial blood by Pulse oximetry Heart rate Systolic blood pressure Diastolic blood pressure Provider Name and Address Organization Details Last Updated DateTime 4 98.4 [degF] 16 /min 98 % 98 % 86 /min 100 mm[Hg] 68 mm[Hg] Not Available Yu Rong 4 16:25:08 Date Recorded Respiratory rate Heart rate Oxygen saturation Oxygen saturation in Arterial blood by Pulse oximetry Body temperature Systolic blood pressure Diastolic blood pressure Provider Name and Address Organization Details Last Updated DateTime 4 16 /min 88 /min 96 % 96 % 96 [degF] 97 mm[Hg] 63 mm[Hg] Not Available Yu Rong 4 17:24:48 Social History None recorded. Functional [...] 4542 Tha Pierson MD Main - [facility] [address] [place] [phone] 03/24/2022 17:56:02 04/01/2022 18:48:22 Abdominal pain 70350161 R10.9 4587 Amaury Kent MD Main - [facility] [address] [place] [phone] 03/26/2022 17:40:48 03/30/2022 12:00:01 Abdominal pain 75719148 R10.9 No red flag signs or kidney problems. Will give Toradol 15mg IM x1 [id number] Jordan Chapman MD Main - [facility] [address] [place] [phone] 04/02/2022 17:07:08 04/03/2022 15:18:36 Urinary bladder pain 26669013 R39.82 Patient with exacerbati on of chronic abdominal pain which is attributed to interstiti al cystitis. She is planned for a surgical procedure for this soon. She got relief from toradol at a recent [facility] visit for same symptoms. No history of GI bleeding or chronic kidney disease.Rx toradol IM 15mg x1 [id number] Nelly Pérez MD Main - [facility] [address] [place] [phone] 0 04/08/2022 14:02:49 04/14/2022 16:18:59 Chronic interstitial cystitis 820301830 N30.10 57 year old female, being evaluated for chronic bladder pain. Per data gathered by corn miller, patient with chronic bladder pain without dysuria, scheduled for a surgical procedure next week. Her symptoms are at baseline, and she is tolerating PO. Her exam is notable for normal vital signs. Cannot take PO NSAIDS, however recalls IM toradol helpful in the past - dose given again today. FU PCP as needed. 5214 [facility] [address] [place] [phone] 04/22/2022 17:19:46 04/23/2022 11:41:13 Pain in right foot [id number] 73563 M79.671 57 year old female being evaluated [...] 5464 Kylee Hill MD Main - [facility] [address] [place] [phone] 05/03/2022 16:25:00 05/05/2022 09:08:24 Pain in left foot [id number] 11425 M79.672 57 yo F w/ known metatarsal [...] 8142 Lula Camacho MD Main - [facility] [address] [place] [phone] 08/12/2022 15:46:28 08/14/2022 09:39:18 Candidiasis of skin 18080366 B37.2 likely cause of rash Increased frequency of urination 096958852 R35.0 PAT NOT clinically dehydrated -not hyperglyce opal -states has hx non infectious cystitis- has appt w/ urology 09/07- requesting ketorolac for pain- has no hx CKD/ has tolerated 30 mg IM before( previous [facility] visits)- get GI upset w/ nsaids [...] 8250 Derik Bingham MD Main - [facility] [address] [place] [phone] 0 08/17/2022 11:11:00 08/19/2022 09:27:13 Chronic interstitial cystitis 264091482 N30.10 Localized eruption of skin 849336909 R21 8622 Kylee Hill MD Main - [facility] [address] [place] [phone] 0 08/28/2022 22:03:08 08/31/2022 11:13:17 Chronic interstitial cystitis 648414039 N30.10 long standing diagnosis c/b chronic pain. Recieves toradol occasional ly with good effect. No fevers/chi lls/hematu sofi. Will administer 30mg toradol, but advised pt to discuss timing of additional NSAIDs with surgical team as she is planned for surgery in 10d. will also prescribe 4d zofran for intermitte nt chornic nausea associated to chronic cystitis. Qtc<500. Of note, prescripti on called into [facility] over the phone / EMR malnctio n 9933 Angie Amador MD Main - [facility] [address] [place] [phone] 0 10/11/2022 16:10:03 10/12/2022 10:16:13 Abdominal pain 07734153 R10.9 Chronic low back pain 27 1406330 M54.50 Pain 59793778 R52 11822 Derik Bingham MD Main - [facility] [address] [place] [phone] 0 10/16/2022 17:37:00 10/19/2022 09:55:32 Right upper quadrant pain 902715394 R10.11 [id number] Jareth David MD Main - [facility] [address] [place] [phone] 0 10/29/2022 17:40:14 10/30/2022 08:56:05 Generalized abdominal pain 994811580 R10.84 This 57-year-ol d female had a [...] PCP. The patient agreed with this plan. [id number] Amaury Kent MD Main - [facility] [address] [place] [phone] 0 10/31/2022 15:42:54 11/03/2022 13:02:01 Generalized abdominal pain 991744861 R10.84 Generalize d abdominal pain similar to prior episodes. Mild nausea and sxs of dehydratio n, poor fluid intake. Had normal BMP on prior visit. Tolerated IVF, Zofran, Toradol in the past. No red flag signs. Will reorder. [id number] Leander Rosa MD Main - [facility] [address] [place] [phone] 0 11/04/2022 14:24:04 11/06/2022 13:41:01 Abdominal pain 02711101 R10.9 [id number] Kylee Hill MD Main - [facility] [address] [place] [phone] 0 11/15/2022 15:34:46 11/25/2022 10:16:27 Chronic interstitial cystitis 625390180 N30.10 case supervised and discussed with corn miller. Patient was given opportunit y to ask questions, warning signs/symp toms of pertinent medical emergency reviewed. long standing diagnosis c/b chronic pain. Recieves toradol occasional ly with good effect. No fevers/chi lls/hematu sofi. Will administer 30mg toradol [id number] Latosha Pressley MD Main - [facility] [address] [place] [phone] 0 11/23/2022 20:46:17 11/24/2022 10:07:44 Chronic interstitial cystitis 263025986 N30.10 [id number] Amaury Kent MD Main - [facility] [address] [place] [address] [phone] 0 11/28/2022 16:57:59 11/28/2022 23:15:41 Chronic interstitial cystitis 150737254 N30.10 Has upcoming cystocscop y, amenable to 30mg IM Toradol now Pain 14042749 R52 [id number] Jareth David MD Main - [facility] [address] [place] [phone] 0 12/13/2022 16:50:19 12/14/2022 10:41:58 Essential tremor 091230235 G25.0 This 57-year-ol d female with a history of ulcerative colitis and a resting tremor called [facility] because she thought she might be dehydrated . At the visit her hydration status looked good and her oral intake was adequate. She was advised to follow-up with her PCP. The patient agreed with this plan. [id number] Lula Camacho MD Main - [facility] [address] [place] [phone] 0 02/22/2023 18:33:03 02/23/2023 08:59:17 Abdominal pain 18799908 R10.9 Agree flare of interstiti al cystitis/p atevans has appointmen t to talk to her urologist in 48 hours/but not in person-adv ised since she has not had ketorolac in a while and her H & H are stable-we will give her a dose, however I advised she could develop a reaction to parenteral ketorolac similar to ibuprofen- she verbalized understand ing Hypokalemia 45906421 E87 .6 Unsure of etiology since the [...] and tomorrow - she verbalized she would [id number] Lula Camacho MD Main - [facility] [address] [place] [phone] 0 02/24/2023 11:00:53 02/24/2023 12:04:06 Hypokalemia 67370660 E87.6 Unsure of etiology since the patient denies nausea/ vomiting /diarrhea or excessive urine output/ now resolved with po K//lactate is slightly high but these new machines have been reading mildly high on everyone I have taken care of in the past week-doubt significan t given stable exam and vital signs and the fact that she is afebrile. [id number] Amaury Kent MD Main - [facility] [address] [place] [address] [phone] 0 04/15/2023 15:37:09 04/16/2023 12:56:31 Abdominal pain 86461089 R10.9 Acute on chronic. Normal vital signs. No red flag signs or kidney problems. Will give Toradol 30mg IM x1. Discussed red flag signs for which to seek higher level of care. [id number] Sofiya Frye MD Main - [facility] [address] [place] [phone] 0 04/27/2023 21:55:53 04/28/2023 10:39:48 Chronic pain 97852362 G89.29 [id number] Corrie Pryor MD Main - [facility] [address] [place] [address] [phone] 0 05/01/2023 12:37:10 05/02/2023 15:48:01 Chronic interstitial cystitis 091753275 N30.10 Evaluation in the field was performed by my corn miller colleague, as noted above, I provided real-time [...] shortness of breath, cough, chest pain, fever. 11534 Nelly Pérez MD Main - [facility] [address] [place] [address] [phone] 0 05/10/2023 15:45:31 05/10/2023 22:56:22 Abdominal pain 51589780 R10.9 58 year old female with a [...] assessment and plan as documented by the corn miller. I provided real-time medical direction for this encounter and was immediatel y available to provide additional phone-base d assistance as needed. We discussed the diagnostic uncertaint y of home visits and associated risks. We discussed the need to seek care urgently/e mergently in the setting of any new or worsening symptoms. [id number] Jareth David MD Main - [facility] [address] [place] [address] [phone] 0 05/18/2023 14:57:58 05/19/2023 10:20:02 Irritable bowel syndrome 10772909 K58.9 This 58-year-ol d female with recurrent GI pain likely due to IBS called today because of pain since this AM. She doesn't tolerate oral pain medication s due to GERD, but she has responded to Toradol in the past. I ordered Toradol 30 mg IM. She will follow-up with her PCP. The patient agreed with this plan. [id number] Kellie Woods MD Main - [facility] [address] [place] [address] [phone] 0 05/21/2023 12:59:15 05/24/2023 16:53:56 Urinary symptoms 550899110 R39.9 Abdominal pain 34497250 R10.9 45215 NO MATHIS MD Main - [facility] [address] [place] [address] [phone] 0 06/06/2023 11:39:22 06/08/2023 10:04:30 Abdominal pain 94451280 R10.9 Evaluation in the field was performed by my corn miller colleague, as noted above, I provided real-time [...] N/V. Last BM this morning and normal. Cecil Sign negative that makes intraperit baxter inflammati on less likely. Psoas and Obturator signs negative .Pt not on anticoagul ation Impression :Acute on chronic abdominal pain Plan:Ketor olac 15 mg IM [id number] to call her GI doctor on Wednesday [...] concerns Latosha Pressley MD Main - [facility] [address] [place] [address] [phone] 0 07/27/2023 17:32:53 07/27/2023 21:48:46 Chronic interstitial cystitis 400086586 N30.10 Sofiya Frey MD Main - [facility] [address] [place] [address] [phone] 0 07/30/2023 21:02:08 07/31/2023 12:36:08 Spasm of urinary bladder 341575021 N32.89 [id number] Duong Panchal MD Main - [facility] [address] [place] [address] [phone] 0 08/24/2023 20:24:52 08/25/2023 11:16:42 Ulcerative colitis 41839882 K51.90 Patient reports a history of ulcerative colitis followed by GI. She reports that she has abdominal pain consistent with her typical chronic abdominal pain. Denies any new complaints . Reports a recent colonoscop y. No hematochez ia or melena. Requesting ketorolac as that typically resolves her symptoms. Denies any other complaints or concerns. [id number] Nelly Pérez MD Main - [facility] [address] [place] [address] [phone] 0 10/11/2023 19:12:01 10/11/2023 22:15:10 Chronic interstitial cystitis 245984884 N30.10 57 year old female, being evaluated for acute on chronic bladder pain. Per data gathered by corn miller, patient with chronic bladder pain without dysuria, [...] assessment and plan as documented by the corn miller. I provided real-time medical direction for this encounter and was immediatel y available to provide additional phone-base d assistance as needed. We discussed the diagnostic uncertaint y of home visits and associated risks. We discussed the need to seek care urgently/e mergently in the setting of any new or worsening symptoms. [id number] Tha Pierson MD Main - [facility] [address] [place] [address] [phone] 0 01/23/2024 16:25:05 01/24/2024 10:37:03 Abdominal pain 40729217 R10.9 43541 Nelly Pérez MD Main - [facility] [address] [place] [address] [phone] 0 04/18/2024 17:24:45 04/18/2024 22:03:45 Headache 61969640 R51.9 59 year old female being evaluated [...] assessment and plan as documented by the corn miller. I provided real-time medical direction for this [...] Babb Member ID Guarantor Name 07/30/2023 1 [facility] - DOS ON OR AFTER 2022 - DUAL ELIGIBLE - RESIDENTIAL OPTIONS AND ONE CARE (MEDICARE REPLACEMENT/ADV ANTAGE - HMO) Randi Desilets [id number] Randi A Desilets 08/24/2023 1 [facility] - DOS ON OR AFTER 2022 - DUAL ELIGIBLE - RESIDENTIAL OPTIONS AND ONE CARE (MEDICARE REPLACEMENT/ADV ANTAGE - HMO) Randi Desilets [id number] Randi A Desilets 10/11/2023 1 [facility] - DOS ON OR AFTER 2022 - DUAL ELIGIBLE - RESIDENTIAL OPTIONS AND ONE CARE (MEDICARE REPLACEMENT/ADV ANTAGE - HMO) Randi Desilets [id number] Randi A Desilets 01/23/2024 1 [facility] - DOS ON OR AFTER 2022 - DUAL ELIGIBLE - RESIDENTIAL OPTIONS AND ONE CARE (MEDICARE REPLACEMENT/ADV ANTAGE - HMO) Randi Desilets [id number] Randi A Desilets 04/18/2024 1 [facility] - DOS ON OR AFTER 2022 - DUAL ELIGIBLE - RESIDENTIAL OPTIONS AND ONE CARE (MEDICARE REPLACEMENT/ADV ANTAGE - HMO) Randi Lowery [id number] Randi Lowery Notes Date Note Type Note [...] ....................... ....................... ....................... ....................... ....................... ....................... ... Fill Manager Note From Gómez Kumar: Pt co abdominal pain. Has cystitis. Having surgery Wednesday. Was seen by [facility] Wednesday was given toradol with relief ..pt wanting toradol to hold her over for the weekend until surgery. Pt denies urinary symptoms, fever nausea vomiting diarrhea , cp sob, kidney problems. Baseline vitals assessed. [facility] contacted and 30mg toradol IM. Pt education on signs indicating the ER. Fill Manager Allergies: Acetaminophen, Ibuprofen ....................... ....................... ....................... ....................... ....................... ....................... ... Disposition: Ivan Sofiya Frye MD [address] [facility],[address], [place], [address], [employer] 07/30/2023 21:05:26 08/24/2023 text/html CRC Nurse Triage Notes (Dave Cerna): Patient Reports: Inability to tolerate foods, fluids or daily medications Denies: Vague abdominal pain greater than 24 hours Nausea with or without vomiting Chief Complaints: Weakness/Lethargy, Dehydration, Abdominal Pain PMH: COPD/Asthma Allergies: Acetaminophen, Ibuprofen Comments: Food Truck Caterer verified the member's name//address and phone number. [...] ....................... ....................... ....................... ....................... ....................... ....................... ... Fill Manager Note From Spencer Reis: 58 yo F [...] but pt needs to follow up with pig farmer to not just mask the pain but cure the main issue. 30mg given left deltoid. explained risks of [facility] use of Toradol/NSAIDs. discussed red flags with pt and friend. ....................... ....................... ....................... ....................... ....................... ....................... ... Disposition: Fulfilled Duong Panchal MD [address] [facility],[address], [place], [address], [employer] 08/24/2023 22:57:14 10/11/2023 text/html CRC Nurse Triage Notes (Mayra Jaime): Reason For Request: Pt reporting introsystalitis, pain, nausea (for a couple days), states bladder surgery for next week>is requesting toradol and zofran Chief Complaints: Nausea/Vomiting, Pain PMH: COPD/Asthma Allergies: Acetaminophen, Ibuprofen Comments: Food Truck Caterer verified the member's name//address and phone number. [...] ....................... ....................... ....................... ....................... ....................... ....................... ... Fill Manager Note From Corey Moralez: Pt reporting acute [...] ... Disposition: Fulfilled Nelly Pérez MD [address] [facility],[address], [place], [address], [employer] 10/11/2023 21:24:08 01/23/2024 text/html CRC Nurse Triage [...] got in contact with mbr around 1450. Food Truck Caterer verified the member's name//address and phone number. Mbr reporting generalized abdominal discomfort as well as nausea on going for the last few hours. Mbr reports awaiting bladder surgery which is scheduled for next month. [facility] has been seen in the past by [facility] for similar and [facility] Toradol has worked well for her pain in the past. Education provided on the response time and the member was advised to monitor reported s/s and seek emergency treatment if needed -Abdullahi Moeller RN ....................... ....................... ....................... ....................... ....................... ....................... ... Fill Manager Note From Yennifer Celeste: Pt reports 2-3 days of nausea, vomiting with lower abd pain. A&ox3, vss, afebrile; ? cramping? in lower quadrants, mildly painful on palpation, denies cp, sob, back or flank pain, headache, dizziness, lightheadedness. [facility] consulted, 4mg zofran and 15mg toradol IM administered. Pt will follow up with pcp Wednesday. Red flags reviewed. Fill Manager Allergies: Acetaminophen, Ibuprofen ....................... ....................... ....................... ....................... ....................... ....................... ... Disposition: Fulfilled Tha Pierson MD [address] [facility],[address], [place], [phone], [employer] 01/23/2024 18:50:39 04/18/2024 text/html CRC Nurse Triage [...] ....................... ....................... ....................... ....................... ....................... ....................... ... Fill Manager Note From Corey Moralez: This 59-year-old female [...] is soft, nontender, nondistended. No lower extremity edema.[facility] contacted and patient treated [...] ....................... ....................... ....................... ....................... ....................... ....................... ... [facility] Consulted: Nelly Pérez ....................... ....................... ....................... ....................... ....................... ....................... ... Disposition: Ivan Pérez MD [address] [facility],[address], [place], [address], [employer] 04/18/2024 19:46:24 OBGyn Episode No OBEpisode recorded.
--- OUTSIDE RECORDS SUMMARY | 2024-08-11 07:56 | XMS_ITS | Encounter Summary ---
Author Organization [facility] Address [phone] [place] [address] Care Team Providers Care Crime Investigator Special Agent Name Role Phone Pcp, Unknown Primary Care Provider Unavailabl e Reason for Visit * Auth/Cert (Routine) Specialty Diagnoses / Procedures Referred By Contac t Referred To Contact Referral ID Status Reason Start Date Expiration Date Visits Re quested Visits Authorized [id number] 1 1 Encounter Details Date Type Department Care Team (Late st Contact Info) Description 07/29/2024 Home [facility] Visit [facility] [address] [place], [place] [phone] Lula Ordonez RN [address] [place] [address] [email or web address] SN PRN HOME [...] Visit [facility] [address] [place], [place] [phone] Tala Alvarez RN [address] [place], [place] [phone] 08/15/2024 2:00 AM EST Home Care Visit [facility] [address] [place] [phone] Tala Alvarez RN [address] [place] [address] 08/18/2024 1:00 AM EST Home Care Visit [facility] [address] [place] [address] Tala Alvarez RN [address] [place] [address] 08/22/2024 1:30 AM EDT Home Care Visit [facility] [address] [place] [phone] Tala Alvarez RN [address] [place] [address] 08/25/2024 12:30 AM EDT Home Care Visit [facility] [address] [place] [phone] Tala Alvarez, PAMELA [address] [place] [address] 08/29/2024 2:00 AM EDT Home Care Visit [facility] [address] [place] [phone] Tala Alvarez RN [address] [place] [address] 09/01/2024 12:30 AM EDT Home Care Visit [facility] [address] [place] [phone] Tala Alvarez RN [address] [place] [address] 09/05/2024 1:30 AM EDT Home Care Visit [facility] [address] [place] [phone] Tala Alvarez RN [address] [place] [address] [email or web address] 09/08/2024 12:30 AM EDT [facility] [address] [place] [phone] Tala Alvarez RN [address] [place] [address] 09/12/2024 1:00 AM EDT [facility] [address] [place] [phone] Tala Alvarez RN [address] [place] [address] [email or web address] 09/15/2024 Home Care Visit [facility] [address] [place] [phone] Tala Alvarez RN [address] [place] [address] [email or web address] 09/19/2024 Appointment [facility] [address] [place] [phone] Tala Alvarez RN [address] [place] [address] [email or web address] documented as of this encounter Visit Diagnoses Not on filedocumented in this encounter Home Health Visit - Care Plan Visit Details Visit Type -SN PRN HOME VISI T Discipline -Fci Problems Problem Description Start Date [...] this visit HH - Ostomy Management Disciplines: Fci 11/27/2023 [...] convexity may help prevent leaks. CC to qual field manager. Instruction Provided to: patient and caregiver Response to Instruction/Teach ing: Is fully able to teach back topics as evidenced by verbalizes understanding. Plan for Next Visit Specific Focus & Education Needed: Evaluate need for convexity New Orders: N/A HH - I/E management of care in an urgent or emergency (ER) situation: When to call your Home Care Team/[facility], ER plans, supplies, evacuation, when to [...] home/community discharge from homecare Completed - Assess vital signs, pulse oximetry, pain, and as indicated, orthostatic vital signs Description: use agency-specific parameters Problem: - Standard of Care Goal:HH - Achieve care management for a safe to home/community discharge from homecare Scheduled with variance Patient refused HH - Ostomy management (type & device): Description: OSTOMY TYPE: ILEOSTOMY DEVICE PRODUCT NAME AND SIZE: Retailigence IMS- [id number]- 1-PIECE COLOPLAST 10531. Problem:HH - Ostomy Management Goal:HH - Demonstrate/verbali [...] Completed documented in this encounter Care Teams Crime Investigator Special Agent Relationship Specialty Start Date End Date Pcp, Unknown PCP - General 02/23/23 documented as of this encounter Additional Source Comments The information contained in this document represents components of the legal health record. It is not the complete legal health record.[facility]
--- OUTSIDE RECORDS SUMMARY | 2024-08-11 07:56 | XMS_ITS | Encounter Summary ---
Author Organization [facility] Address [phone] [place] [address] Care Team Providers Care Petrologist Name Role Phone Pcp, Unknown Primary Care Provider Unavailabl e Encounter Details Date Type Department Care Team (Late st Contact Info) Description 07/21/2024 Plan of Care Documentation [facility] [address] [place], [place] [phone] Social History Tobacco Use Types Packs/Day Years [...] 8:30 AM EST Home Care Visit [facility] [address] [place] [phone] Tala Alvarez RN [address] [place] [address] [email or web address] 08/15/2024 2:00 AM EST Home Care Visit [facility] [address] [place] [phone] Tala Alvarez RN [address] [place] [address] [email or web address] 08/18/2024 1:00 AM EST Home Care Visit [facility] [address] [place] [phone] Tala Alvarez, PAMELA [address] [place] [address] [email or web address] 08/22/2024 1:30 AM EDT Home Care Visit [facility] [address] [place] [phone] Tala Alvarez RN [address] [place] [address] [email or web address] 08/25/2024 12:30 AM EDT Home Care Visit [facility] [address] [place] [phone] Tala Alvarez RN [address] [place] [address] [email or web address] 08/29/2024 2:00 AM EDT Home Care Visit [facility] [address] [place] [phone] Tala Alvarez, PAMELA [address] [place] [address] [email or web address] 09/01/2024 12:30 AM EDT Home Care Visit [facility] [address] [place] [phone] Tala Alvarez, RN [address] [place] [address] [email or web address] 09/05/2024 1:30 AM EDT Home Care Visit [facility] [address] [place] [phone] Tala Alvarez, PAMELA [address] [place] [address] [email or web address] 09/08/2024 12:30 AM EDT Home Care Visit [facility] [address] [place] [phone] Tala Alvarez, PAMELA [address] [place] [address] [email or web address] 09/12/2024 1:00 AM EDT Home Care Visit [facility] [address] [place] [phone] Tala Alvarez, PAMELA [address] [place] [address] [email or web address] 09/15/2024 Home Care Visit [facility] [address] [place] [phone] Tala Alvarez, RN [address] [place] [address] [email or web address] 09/19/2024 Appointment [facility] [address] [place] [phone] Tala Alvarez, RN [address] [place] [address] [email or web address] documented as of this encounter Visit Diagnoses Not on filedocumented in this encounter Care Teams Petrologist Relationship Specialty Start Date End Date Pcp, Unknown PCP - General 02/23/23 documented as of this encounter Additional Source Comments The information contained in this document represents components of the legal health record. It is not the complete legal health record.[facility]
--- OUTSIDE RECORDS SUMMARY | 2024-08-11 07:56 | XMS_ITS | Encounter Summary ---
Author Organization [facility] Address [phone] [place] [address] Care Team Providers Care Boat Ride Operator Name Role Phone Pcp, Unknown Primary Care Provider Unavailabl e Reason for Visit * Auth/Cert (Routine) Specialty Diagnoses / Procedures Referred By Contac t Referred To Contact Referral ID Status Reason Start Date Expiration Date Visits Re quested Visits Authorized [id number] 1 1 Encounter Details Date Type Department Care Team (Late st Contact Info) Description 07/15/2024 1:30 AM EST Home Care Visit [facility] [address] [place] [phone] Olga Finley LPN [address] [place] [address] [email or web address] MANAGER ENVIRONMENTAL HEALTH AND SAFETY HOME VISIT Social History Tobacco Use Types [...] 8:30 AM EST Home Care Visit [facility] [address] [place] [phone] Tala Alvarez RN [address] [place] [address] 08/15/2024 2:00 AM EST Home [facility] Visit [facility] [address] [place] [phone] Tala Alvarez RN [address] [place] [address] 08/18/2024 1:00 AM EST Home Care Visit [facility] [address] [place] [phone] Tala Alvarez RN [address] [place] [address] 08/22/2024 1:30 AM EDT Home Care Visit [facility] [address] [place] [phone] Tala Alvarez RN [address] [place] [address] 08/25/2024 12:30 AM EDT Home Care Visit [facility] [address] [place] [phone] Tala Alvarez RN [address] [place] [address] 08/29/2024 2:00 AM EDT Home Care Visit [facility] [address] [place] [phone] Tala Alvarez RN [address] [place] [address] 09/01/2024 12:30 AM EDT Home [facility] Visit [facility] [address] [place] [phone] Tala Alvarez RN [address] [place] [address] 09/05/2024 1:30 AM EDT Home Care Visit [facility] [address] [place] [phone] Tala Alvarez RN [address] [place] [address] 09/08/2024 12:30 AM EDT Home [facility] Visit [facility] [address] [place] [phone] Tala Alvarez RN [address] [place] [address] 09/12/2024 1:00 AM EDT Home Care Visit [facility] [address] [place] [phone] Tala Alvarez, PAMELA [address] [place] [address] 09/15/2024 Home Care Visit [facility] [address] [place] [phone] Tala Alvarez, PAMELA [address] [place] [address] 09/19/2024 Appointment [facility] [address] [place] [phone] Tala Alvarez RN [address] [place] [address] documented as of this encounter Visit Diagnoses Not on filedocumented in this encounter Home Health Visit - Care Plan Visit Details Visit Type -MANAGER ENVIRONMENTAL HEALTH AND SAFETY HOME VISIT Discipline -Senior Care Problems Problem [...] ed intervention HH - Ostomy Management Disciplines: Senior Care [...] Plan: dc snv when cp goals met HH - I/E management of [...] Completed documented in this encounter Care Teams Boat Ride Operator Relationship Specialty Start Date End Date Pcp, Unknown PCP - General 02/23/23 documented as of this encounter Additional Source Comments The information contained in this document represents components of the legal health record. It is not the complete legal health record.[facility]
--- OUTSIDE RECORDS SUMMARY | 2024-08-11 07:56 | XMS_ITS | Encounter Summary ---
Author Organization [facility] Address [phone] [place] [address] Care Team Providers Care Rn Private Duty Name Role Phone Pcp, Unknown Primary Care Provider Unavailabl e Reason for Visit * Auth/Cert (Routine) Specialty Diagnoses / Procedures Referred By Contac t Referred To Contact Referral ID Status Reason Start Date Expiration Date Visits Re quested Visits Authorized [id number] 1 1 Encounter Details Date Type Department Care Team (Late st Contact Info) Description 07/18/2024 9:45 AM EST Home Care Visit [facility] [address] [place] [phone] Tala Alvarez, RN [address] [place] [address] [email or web address] SN HOME VISIT [...] 8:30 AM EST Home [facility] Visit [facility] [address] [place] [phone] Tala Alvarez RN [address] [place] [address] [email or web address] 08/15/2024 2:00 AM EST Home Care Visit [facility] [address] [place] [phone] Tala Alvarez RN [address] [place] [address] [email or web address] 08/18/2024 1:00 AM EST Home Care Visit [facility] [address] [place] [phone] Tala Alvarez RN [address] [place] [address] [email or web address] 08/22/2024 1:30 AM EDT Home Care Visit [facility] [address] [place] [phone] Tala Alvarez RN [address] [place] [address] [email or web address] 08/25/2024 12:30 AM EDT Home Care Visit [facility] [address] [place] [phone] Tala Alvarez RN [address] [place] [address] [email or web address] 08/29/2024 2:00 AM EDT Home Care Visit [facility] [address] [place] [phone] Tala Alvarez, PAMELA [address] [place] [address] [email or web address] 09/01/2024 12:30 AM EDT Home Care Visit [facility] [address] [place] [phone] Tala Alvarez RN [address] [place] [address] [email or web address] 09/05/2024 1:30 AM EDT Home Care Visit [facility] [address] [place] [phone] Tala Alvarez RN [address] [place] [address] [email or web address] 09/08/2024 12:30 AM EDT Home [facility] Visit [facility] [address] [place] [phone] Tala Alvarez RN [address] [place] [address] [email or web address] 09/12/2024 1:00 AM EDT Home Care Visit [facility] [address] [place] [phone] Tala Alvarez, PAMELA [address] [place] [address] [email or web address] 09/15/2024 Home Care Visit [facility] [address] [place] [phone] Tala Alvarez RN [address] [place] [address] [email or web address] 09/19/2024 Appointment [facility] [address] [place] [phone] Tala Alvarez, PAMELA [address] [place] [address] [email or web address] documented as of this encounter Visit Diagnoses Not on filedocumented in this encounter Home Health Visit - Care Plan Visit Details Visit Type -SN HOME VISIT Discipline -Care Home Problems Problem Description Start [...] situation: When to call your Home Care Team/[facility], ER plans, supplies, evacuation, when to contact [...] Completed documented in this encounter Care Teams Rn Private Duty Relationship Specialty Start Date End Date Pcp, Unknown PCP - General 02/23/23 documented as of this encounter Additional Source Comments The information contained in this document represents components of the legal health record. It is not the complete legal health record.[facility]
--- OUTSIDE RECORDS SUMMARY | 2024-08-11 07:56 | XMS_ITS | Encounter Summary ---
Author Organization [facility] Address [phone] [place] [address] Care Team Providers Care Supervisor Hairspring Fabrication Name Role Phone Pcp, Unknown Primary Care Provider Unavailabl e Reason for Visit * Auth/Cert (Routine) Specialty Diagnoses / Procedures Referred By Contac t Referred To Contact Referral ID Status Reason Start Date Expiration Date Visits Re quested Visits Authorized [id number] 1 1 Encounter Details Date Type Department Care Team (Late st Contact Info) Description 07/21/2024 8:30 AM EST Home Care Visit [facility] [address] [place] [phone] Tala Alvarez, RN [address] [place] [address] [email or web address] SN OASIS RECERTIFICATION/FUP Social History Tobacco Use [...] 8:30 AM EST Home Care Visit [facility] [address] [place] [phone] Tala Alvarez, PAMELA [address] [place] [address] [email or web address] 08/15/2024 2:00 AM EST Home Care Visit [facility] [address] [place] [phone] Tala Alvarez RN [address] [place] [address] [email or web address] 08/18/2024 1:00 AM EST Home Care Visit [facility] [address] [place] [phone] Tala Alvarez RN [address] [place] [address] [email or web address] 08/22/2024 1:30 AM EDT Home Care Visit [facility] [address] [place] [phone] Tala Alvarez RN [address] [place] [address] [email or web address] 08/25/2024 12:30 AM EDT Home Care Visit [facility] [address] [place] [phone] Tala Alvarez RN [address] [place] [address] [email or web address] 08/29/2024 2:00 AM EDT Home Care Visit [facility] [address] [place] [phone] Tala Alvarez, PAMELA [address] [place] [address] [email or web address] 09/01/2024 12:30 AM EDT Home Care Visit [facility] [address] [place] [phone] Tala Alvarez, PAMELA [address] [place] [address] [email or web address] 09/05/2024 1:30 AM EDT Home Care Visit [facility] [address] [place] [phone] Tala Alvarez RN [address] [place] [address] [email or web address] 09/08/2024 12:30 AM EDT Home Care Visit [facility] [address] [place] [phone] Taal Alvarez RN [address] [place] [address] [email or web address] 09/12/2024 1:00 AM EDT Home Care Visit [facility] [address] [place] [phone] Tala Alvarez, PAMELA [address] [place] [address] [email or web address] 09/15/2024 Home Care Visit [facility] [address] [place] [phone] Tala Alvarez, PAMELA [address] [place] [address] [email or web address] 09/19/2024 Appointment [facility] [address] [place] [phone] Tala Alvarez, PAMELA [address] [place] [address] [email or web address] documented as of this encounter Visit Diagnoses Not on filedocumented in this encounter Home Health Visit - Care Plan Visit Details Visit Type -SN OASIS RECERTI FICATION/FUP Discipline -Correction Problems Problem Description Start Date Status Goals [...] has been advised that she should explore alernate 04/01 support possible via a Adult Foster Care living arrangements. Pt has [employer] for insurance and her [facility] care manger is involved. Unfortunately pt is not eligible for [facility] support to explore alternate living until age 60 on November 17 this year. 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 It is not the complete legal health record.[facility]
--- OUTSIDE RECORDS SUMMARY | 2024-08-11 07:56 | XMS_ITS | Encounter Summary ---
Author Organization [facility] Address [phone] [place] [address] Care Team Providers Care Harnessmaker Apprentice Name Role Phone Pcp, Unknown Primary Care Provider Unavailabl e Reason for Visit * Auth/Cert (Routine) Specialty Diagnoses / Procedures Referred By Contac t Referred To Contact Referral ID Status Reason Start Date Expiration Date Visits Re quested Visits Authorized [id number] 1 1 Encounter Details Date Type Department Care Team (Late st Contact Info) Description 07/21/2024 4:25 AM EST Home Care Visit [facility] [address] [place], [place] [phone] Hawa Espinoza RN [address] [place] [address] [email or web address] SN PRN HOME VISIT Social History Tobacco [...] 8:30 AM EST Home Care Visit [facility] [address] [place] [phone] Tala Alvarez RN [address] [place] [address] 08/15/2024 2:00 AM EST Home Care Visit [facility] [address] [place] [phone] Tala Alvarez, PAMELA [address] [place] [address] 08/18/2024 1:00 AM EST Home [facility] Visit [facility] [address] [place] [phone] Tala Alvarez, PAMELA [address] [place] [address] 08/22/2024 1:30 AM EDT Home Care Visit [facility] [address] [place] [phone] Tala Alvarez RN [address] [place] [address] 08/25/2024 12:30 AM EDT Home Care Visit [facility] [address] [place] [phone] Tala Alvarez, PAMELA [address] [place] [address] 08/29/2024 2:00 AM EDT Home Care Visit [facility] [address] [place] [phone] Tala Alvarez, PAMELA [address] [place] [address] 09/01/2024 12:30 AM EDT Home Care Visit [facility] [address] [place] [phone] Tala Alvarez, PAMELA [address] [place] [address] 09/05/2024 1:30 AM EDT Home Care Visit [facility] [address] [place] [phone] Tala Alvarez RN [address] [place] [address] [email or web address] 09/08/2024 12:30 AM EDT [facility] [address] [place] [phone] Tala Alvarez RN [address] [place] [address] 09/12/2024 1:00 AM EDT Home [facility] Visit [facility] [address] [place] [phone] Tala Alvarez RN [address] [place] [address] 09/15/2024 [facility] [address] [place] [phone] Tala Alvarez RN [address] [place] [address] 09/19/2024 Appointment [facility] [address] [place] [phone] Tala Alvarez RN [address] [place] [address] documented as of this encounter Visit Diagnoses Not on filedocumented in this encounter Home Health Visit - Care Plan Visit Details Visit Type -SN PRN HOME VISI T Discipline -Intermediate Problems Problem Description Start Date [...] ed intervention HH - Ostomy Management Disciplines: Intermediate 11/27/2023 Active 1 goal linked to scheduled/document [...] Completed documented in this encounter Care Teams Harnessmaker Apprentice Relationship Specialty Start Date End Date Pcp, Unknown PCP - General 02/23/23 documented as of this encounter Additional Source Comments The information contained in this document represents components of the legal health record. It is not the complete legal health record.[facility]
--- OUTSIDE RECORDS SUMMARY | 2024-08-11 07:56 | XMS_ITS | Encounter Summary ---
Author Organization [facility] Address [phone] [place] [address] Care Team Providers Care Air Technician Name Role Phone Pcp, Unknown Primary Care Provider Unavailabl e Encounter Details Date Type Department Care Team (Late st Contact Info) Description 07/31/2024 Episode Documentatio n Update [facility] [address] [place], [place] [phone] Social History Tobacco Use Types Packs/Day Years [...] Visit [facility] [address] [place], [place] [phone] Tala Alvarez RN [address] [place] [address] 08/15/2024 2:00 AM EST Home Care Visit [facility] [address], [place] [phone] Tala Alvarez RN [address] [place] [address] 08/18/2024 1:00 AM EST Home Care Visit [facility] [address] [place] [phone] Tala Alvarez RN [address] [place] [address] 08/22/2024 1:30 AM EDT Home Care Visit [facility] [address] [place] [phone] Tala Alvarez, PAMELA [address] [place] [address] 08/25/2024 12:30 AM EDT Home Care Visit [facility] [address] [place] [phone] Tala Alvarez RN [address] [place] [address] 08/29/2024 2:00 AM EDT Home Care Visit [facility] [address] [place] [phone] Tala Alvarez, PAMELA [address] [place] [address] 09/01/2024 12:30 AM EDT Home Care Visit [facility] [address] [place] [phone] Tala Alvarez, PAMELA [address] [place] [address] 09/05/2024 1:30 AM EDT Home Care Visit [facility] [address] [place] [phone] Tala Alvarez, PAMELA [address] [place] [address] 09/08/2024 12:30 AM EDT Home Care Visit [facility] [address] [place] [phone] Tala Alvarez RN [address] [place] [address] 09/12/2024 1:00 AM EDT [facility] [address] [place] [phone] Tala Alvarez RN [address] [place] [address] 09/15/2024 Home Care Visit [facility] [address] [place] [phone] Tala Alvarez, PAMELA [address] [place] [address] 09/19/2024 Appointment [facility] [address] [place] [address] Tala Alvarez RN [address] [place] [address] documented as of this encounter Visit Diagnoses Not on filedocumented in this encounter Care Teams Air Technician Relationship Specialty Start Date End Date Pcp, Unknown PCP - General 02/23/23 documented as of this encounter Additional Source Comments The information contained in this document represents components of the legal health record. It is not the complete legal health record.[facility]
--- OUTSIDE RECORDS SUMMARY | 2024-08-11 07:57 | XMS_ITS | Clinical Summary ---
Author Organization [facility] Address [phone] [facility] [place] [address] Care Team Providers Care Inside Sales Administrator Name Role Phone Pcp, Unknown Primary Care [...] Encounters Date Type Department Care Team Description 08/08/2024 9:30 AM EST Home Care Visit [facility] [address] [place] [phone] Tala Alvarez RN SN HOME VISIT 08/05/2024 8:00 PM EST Home Care Visit [facility] [address] [place] [address] Lula Ordonez RN SN PRN HOME VISIT 08/04/2024 7:30 PM EST Home Care Visit [facility] [address] [place] [address] Avani Simmons RN SN PRN HOME VISIT 08/04/2024 9:00 AM EST Home Care Visit [facility] [address] [place] [phone] Tala Alvarez RN SN HOME VISIT 08/01/2024 10:45 AM EST Home Care Visit [facility] [address] [place] [phone] Yehuda Moore RN SN HOME VISIT 07/31/2024 Episode Documentatio n Update [facility] [address] [place] [phone] 07/29/2024 Home Care Visit [facility] [address] [place] [phone] Lula Ordonez, PAMELA SN PRN HOME VISIT 07/28/2024 12:30 PM EST Home Care Visit [facility] [address] [place] [address] Tala Alvarez RN SN PRN HOME VISIT 07/28/2024 Episode Documentatio n Update [facility] [address] [place] [address] Patience Danielle 07/27/2024 8:00 PM EST Home Care Visit [facility] [address] [place] [address] Celina Ann RN SN HOME VISIT 07/25/2024 9:45 AM EST Home Care Visit [facility] [address] [place] [address] Tala Alvarez RN SN HOME VISIT 07/22/2024 7:30 AM EST Home Care Visit [facility] [address] [place] [address] Evelin Zurita, PAMELA SN PRN HOME VISIT 07/22/2024 Home Care Visit [facility] [address] [place] [address] Ernestine Gillette, NAPHTHALENE STILL OPERATOR CLINICAL COMMUNICATION 07/21/2024 8:30 AM EST Home Care Visit [facility] [address] [place] [address] Tala Alvarez RN SN OASIS RECERTIFICATION/FUP 07/21/2024 4:25 AM EST Home Care Visit [facility] [address] [place] [address] Hawa Espinoza, PAMELA SN PRN HOME VISIT 07/21/2024 Plan of Care Documentation [facility] [address] [place] [address] 07/18/2024 9:45 AM EST Home Care Visit [facility] [address] [place], [place] [phone] Tala Alvarez RN SN HOME VISIT 07/15/2024 1:30 AM EST Home Care Visit [facility] [address] [place] [address] Olga Finley LPN DEATH CLEARANCE COORDINATOR HOME VISIT 07/12/2024 8:15 AM EST Home Care Visit [facility] [address] [place], [place] [phone] Tala Alvarez, RN SN PRN HOME VISIT 07/12/2024 Episode Documentatio n Update [facility] [address] [place] [address] 07/11/2024 9:30 AM EST Home Care Visit [facility] [address] [place] [address] Tala Alvarez RN SN HOME VISIT 07/07/2024 8:15 AM EST Home Care Visit [facility] [address] [place] [address] Tala Alvarez, PAMELA SN HOME VISIT 07/04/2024 9:00 AM EST Home Care Visit [facility] [address] [place] [address] Olga Finley LPN DEATH CLEARANCE COORDINATOR HOME VISIT 07/04/2024 1:30 AM EST Home Care Visit [facility] [address] [place] [address] Dralene Jolly, PAMELA SN HOME VISIT 07/03/2024 2:00 AM EST Home Care Visit [facility] [address] [place] [address] Darlene Jolly, PAMELA SN HOME VISIT 07/02/2024 5:00 AM EST Home Care Visit [facility] [address] [place] [address] Lula Ordonez RN SN PRN HOME VISIT 06/29/2024 4:25 AM EST Home Care Visit [facility] [address] [place] [address] Hawa Espinoza RN SN PRN HOME VISIT 06/27/2024 10:30 AM EST Home Care Visit [facility] [address] [place] [address] Tala Alvarez, RN SN HOME VISIT 06/24/2024 9:00 PM EST Home Care Visit [facility] [address] [place] [address] Lula Ordonez RN SN PRN HOME VISIT 06/23/2024 1:00 AM EST Home Care Visit [facility] [address] [place] [address] Olga Finley LPN DEATH CLEARANCE COORDINATOR HOME VISIT 06/22/2024 8:15 PM EST Home Care Visit [facility] [address] [place] [address] Whit Cortez RN SN PRN HOME VISIT 06/20/2024 8:45 AM EST Home Care Visit [facility] [address] [place] [address] Eri Chambers LPN LPN HOME VISIT 06/18/2024 Episode Documentatio n Update [facility] [address] [place] [address] Justin Castro 06/16/2024 8:45 AM EST Home Care Visit [facility] [address] [place] [address] Eri Chambers LPN DEATH CLEARANCE COORDINATOR HOME VISIT 06/13/2024 1:30 PM EST Home Care Visit [facility] [address] [place] [address] Tala Alvarez, RN SN PRECEPTOR CO-VISIT 06/13/2024 12:45 PM EST Home Care Visit [facility] [address] [place] [address] Yehuda Moore, PAMELA SN HOME VISIT 06/09/2024 2:00 PM EST Home Care Visit [facility] [address] [place] [address] Megan Alonso, PAMELA SN HOME VISIT 06/07/2024 8:00 AM EST Home Care Visit [facility] [address] [place] [address] Eri Chambers LPN DEATH CLEARANCE COORDINATOR PRN HOME VISIT 06/06/2024 8:45 AM EST Home Care Visit [facility] [address] [place] [address] Eri Chambers LPN DEATH CLEARANCE COORDINATOR HOME VISIT 06/02/2024 8:30 AM EST Home Care Visit [facility] [address] [place] [address] Eri Chambers LPN DEATH CLEARANCE COORDINATOR HOME VISIT 05/30/2024 8:30 AM EST Home Care Visit [facility] [address] [place] [address] Eri Chambers LPN DEATH CLEARANCE COORDINATOR HOME VISIT 05/29/2024 Episode Documentatio n Update [facility] [address] [place] [address] Patience Danielle 05/24/2024 Plan of Care Documentation [facility] [address] [place] [address] 05/23/2024 11:00 AM EST Home Care Visit [facility] [address] [place] [address] Tala Alvarez RN SN OASIS RECERTIFICATION/FUP 05/19/2024 8:30 AM EST Home Care Visit [facility] [address] [place] [address] Tala Alvarez, RN SN HOME VISIT 05/19/2024 Home Care Visit [facility] [address] [place] [address] Sweta Bolanos, PT CASE COMMUNICATION 05/18/2024 Episode Documentatio n Update [facility] [address] [place] [address] 05/17/2024 6:05 PM EST Home Care Visit [facility] [address] [place] [address] Hawa Espinoza, PAMELA SN PRN HOME VISIT 05/16/2024 9:45 AM EST Home Care Visit [facility] [address] [place] [address] Tala Alvarez, PAMELA SN HOME VISIT 05/13/2024 Home Care Visit [facility] [address] [place] [address] Ernestine Gillette, RN CASE COMMUNICATION 05/13/2024 Home Care Visit [facility] [address] [place] [address] Lula Ordonez, RN TELEPHONE ENCOUNTER 05/13/2024 Home Care Visit [facility] [address] [place] [address] Olga Finley LPN DEATH CLEARANCE COORDINATOR PRN HOME VISIT 05/12/2024 Home Care Visit [facility] [address] [place] [address] Avani Simmons, RN SN PRN HOME VISIT from Last 3 Months Social [...] Reading Time Taken Comments Blood Pressure 108/72 08/08/2024 9:56 AM EST Pulse 78 08/08/2024 9:56 AM EST Temperature 36.8 ??C (98.2 ??F) 08/08/2024 9:56 AM ES T Respiratory Rate 18 08/08/2024 9:56 AM EST Oxygen Saturation 98% 08/08/2024 9:56 AM EST Inhaled Oxygen Concentration - - Weight 54 kg (119 lb) 07/07/2024 9:05 AM EST Height - - Body Mass Index - - Plan of Treatment Upcoming Encounters Date Type Department Care Team (Late st Contact Info) Description 08/11/2024 8:30 AM EST Home Care Visit [facility] [address] [place] [phone] Tala Alvarez RN [address] [place] [phone] [email or web address] 08/15/2024 2:00 AM EST Home Care Visit [facility] [address] [place] [address] Tala Alvarez RN [address] [place] [address] [email or web address] 08/18/2024 1:00 AM EST Home Care Visit [facility] [address] [place] [phone] Tala Alvarez RN [address] [place] [address] [email or web address] 08/22/2024 1:30 AM EDT Home Care Visit [facility] [address] [place] [phone] Tala Alvarez RN [address] [place] [address] 08/25/2024 12:30 AM EDT Home Care Visit [facility] [address] [place] [phone] Tala Alvarez RN [address] [place] [address] [email or web address] 08/29/2024 2:00 AM EDT Home Care Visit [facility] [address] [place] [phone] Tala Alvarez, PAMELA [address] [place] [address] [email or web address] 09/01/2024 12:30 AM EDT Home Care Visit [facility] [address] [place] [phone] Tala Alvarez RN [address] [place] [address] [email or web address] 09/05/2024 1:30 AM EDT Home Care Visit [facility] [address] [place] [phone] Tala Alvarez, PAMELA [address] [place] [address] [email or web address] 09/08/2024 12:30 AM EDT Home Care Visit [facility] [address] [place] [phone] Tala Alvarez, PAMELA [address] [place] [address] [email or web address] 09/12/2024 1:00 AM EDT Home Care Visit [facility] [address] [place] [phone] Tala Alvarez RN [address] [place] [address] [email or web address] 09/15/2024 Home Care Visit [facility] [address] [place], [place] [phone] Tala Alvarez RN [address] [place] [address] 09/19/2024 Appointment [facility] [address] [place], [place] [phone] Tala Alvarez RN [address] [place] [address] Health Maintenance Due Date Last Done Comments [...] topic Medical Devices Not on file Desilets, Arndi Personal/Family Self [address] [place] [address] Desilets, Randi Personal/Family Self [address] [place] [address] Desilets, Randi Personal/Family Self [address] [place] [address] Desilets, Randi Personal/Family Self [address] [place] [address] Care Teams Inside Sales Administrator Relationship Specialty Start Date End Date Pcp, Unknown PCP - General 02/23/23 Additional Source Comments The information contained in this document represents components of the legal health record. It is not the complete legal health record.[facility]
--- OUTSIDE RECORDS SUMMARY | 2024-08-11 07:57 | XMS_ITS | Encounter Summary ---
Author Organization [facility] Address [phone] [place] [address] Care Team Providers Care Bindery Assistant Name Role Phone Pcp, Unknown Primary Care Provider Unavailabl e Encounter Details Date Type Department Care Team (Late st Contact Info) Description 07/12/2024 Episode Documentatio n Update [facility] [address] [place], [place] [phone] Social History Tobacco Use Types Packs/Day Years [...] Visit [facility] [address] [place], [place] [phone] Tala Alvarez RN [address] [place] [address] 08/15/2024 2:00 AM EST Home Care Visit [facility] [address] [place], [place] [phone] Tala Alvarez RN [address] [place] [address] 08/18/2024 1:00 AM EST Home Care Visit [facility] [address] [place] [phone] Tala Alvarez RN [address] [place] [address] 08/22/2024 1:30 AM EDT Home Care Visit [facility] [address] [place] [phone] Tala Alvarez, PAMELA [address] [place] [address] 08/25/2024 12:30 AM EDT Home Care Visit [facility] [address] [place] [phone] Tala Alvarez RN [address] [place] [address] 08/29/2024 2:00 AM EDT Home Care Visit [facility] [address] [place] [phone] Tala Alvarez, PAMELA [address] [place] [address] 09/01/2024 12:30 AM EDT Home Care Visit [facility] [address] [place] [phone] Tala Alvarez, PAMELA [address] [place] [address] 09/05/2024 1:30 AM EDT Home Care Visit [facility] [address] [place] [phone] Tala Alvarez, PAMELA [address] [place] [address] 09/08/2024 12:30 AM EDT Home Care Visit [facility] [address] [place] [phone] Tala Alvarez RN [address] [place] [address] 09/12/2024 1:00 AM EDT [facility] [address] [place] [phone] Tala Alvarez RN [address] [place] [address] 09/15/2024 Home Care Visit [facility] [address] [place] [phone] Tala Alvarez, PAEMLA [address] [place] [address] 09/19/2024 Appointment [facility] [address] [place] [phone] Tala Alvarez RN [address] [place] [address] documented as of this encounter Visit Diagnoses Not on filedocumented in this encounter Care Teams Bindery Assistant Relationship Specialty Start Date End Date Pcp, Unknown PCP - General 02/23/23 documented as of this encounter Additional Source Comments The information contained in this document represents components of the legal health record. It is not the complete legal health record.[facility]
--- OUTSIDE RECORDS SUMMARY | 2024-08-11 07:57 | XMS_ITS | Encounter Summary ---
Author Organization [facility] Address [phone] [place] [address] Care Team Providers Care Cable Television Access Coordinator Name Role Phone Pcp, Unknown Primary Care Provider Unavailabl e Encounter Details Date Type Department Care Team (Late st Contact Info) Description 07/28/2024 Episode Documentatio n Update [facility] [address] [place], [place] [phone] Patience Danielle [address] [place] [address] Social History Tobacco Use Types Packs/Day Years [...] 8:30 AM EST Home Care Visit [facility] [address] [place], [place] [phone] Tala Alvarez RN [address] [place] [address] 08/15/2024 2:00 AM EST Home Care Visit [facility] [address] [place], [place] [phone] Tala Alvarez, PAMELA [address] [place] [address] 08/18/2024 1:00 AM EST Home Care Visit [facility] [address] [place] [phone] Tala Alvarez, RN [address] [place] [address] 08/22/2024 1:30 AM EDT Home Care Visit [facility] [address] [place] [phone] Tala Alvarez, RN [address] [place] [address] 08/25/2024 12:30 AM EDT Home Care Visit [facility] [address] [place] [phone] Tala Alvarez, RN [address] [place] [address] 08/29/2024 2:00 AM EDT Home Care Visit [facility] [address] [place] [phone] Tala Alvarez, PAMELA [address] [place] [address] 09/01/2024 12:30 AM EDT Home Care Visit [facility] [address] [place] [phone] Tala Alvarez, RN [address] [place] [address] 09/05/2024 1:30 AM EDT Home Care Visit [facility] [address] [place] [phone] Tala Alvarez, RN [address] [place] [address] 09/08/2024 12:30 AM EDT Home [facility] [address] [place] [phone] Tala Alvarez RN [address] [place] [address] 09/12/2024 1:00 AM EDT Home Care Visit [facility] [address] [place] [phone] Tala Alvarez RN [address] [place] [address] 09/15/2024 Home Care Visit [facility] [address] [place] [phone] Tala Alvarez RN [address] [place] [address] 09/19/2024 Appointment [facility] [address] [place] [phone] Tala Alvarez RN [address] [place] [address] documented as of this encounter Visit Diagnoses Not on filedocumented in this encounter Care Teams Cable Television Access Coordinator Relationship Specialty Start Date End Date Pcp, Unknown PCP - General 02/23/23 documented as of this encounter Additional Source Comments The information contained in this document represents components of the legal health record. It is not the complete legal health record.[facility]
--- OUTSIDE RECORDS SUMMARY | 2024-08-11 07:57 | XMS_ITS | Encounter Summary ---
Author Organization [facility] Address [phone] [place] [address] Care Team Providers Care [employer] Coxswain Name Role Phone Pcp, Unknown Primary Care Provider Unavailabl e Reason for Visit * Auth/Cert (Routine) Specialty Diagnoses / Procedures Referred By Contac t Referred To Contact Referral ID Status Reason Start Date Expiration Date Visits Re quested Visits Authorized [id number] 1 1 Encounter Details Date Type Department Care Team (Late st Contact Info) Description 08/05/2024 8:00 PM EST Home Care Visit [facility] [address] [place], [place] [phone] Lula Ordonez RN [address] [place] [address] [email or web address] SN PRN HOME VISIT Social History Tobacco [...] 8:30 AM EST Home Care Visit [facility] [address] [place], [place] [phone] Tala Alvarez RN [address] [place] [address] 08/15/2024 2:00 AM EST Home Care Visit [facility] [address] [place] [phone] Tala Alvarez, PAMELA [address] [place] [address] 08/18/2024 1:00 AM EST Home Care Visit [facility] [address] [place] [phone] Tala Alvarez, PAMELA [address] [place] [address] 08/22/2024 1:30 AM EDT Home Care Visit [facility] [address] [place] [phone] Tala Alvarez RN [address] [place] [address] 08/25/2024 12:30 AM EDT Home Care Visit [facility] [address] [place] [phone] Tala Alvarez, PAMELA [address] [place] [address] 08/29/2024 2:00 AM EDT Home Care Visit [facility] [address] [place] [phone] Tala Alvarez, PAMELA [address] [place] [address] 09/01/2024 12:30 AM EDT Home Care Visit [facility] [address] [place] [phone] Tala Alvarez, PAMELA [address] [place] [address] 09/05/2024 1:30 AM EDT Home Care Visit [facility] [address] [place] [phone] Tala Alvarez RN [address] [place] [address] [email or web address] 09/08/2024 12:30 AM EDT Home Care Visit [facility] [address] [place] [phone] Tala Alvarez RN [address] [place] [address] 09/12/2024 1:00 AM EDT Home Care Visit [facility] [address] [place] [phone] Tala Alvarez RN [address] [place] [address] [email or web address] 09/15/2024 Home Care Visit [facility] [address] [place] [phone] Tala Alvarez RN [address] [place] [address] [email or web address] 09/19/2024 Appointment [facility] [address] [place] [phone] Tala Alvarez RN [address] [place] [address] [email or web address] documented as of this encounter Visit Diagnoses Not on filedocumented in this encounter Home Health Visit - Care Plan Visit Details Visit Type -SN PRN HOME VISI T Discipline -Half-Way Problems Problem Description Start Date [...] reconciliation as indicated. Pharmacy information: Description: [facility] Problem: - Medication Management Goal:HH - Safe [...] refused documented in this encounter Care Teams [employer] Coxswain Relationship Specialty Start Date End Date Pcp, Unknown PCP - General 02/23/23 documented as of this encounter Additional Source Comments The information contained in this document represents components of the legal health record. It is not the complete legal health record.[facility]
--- OUTSIDE RECORDS SUMMARY | 2024-08-11 07:57 | XMS_ITS | Encounter Summary ---
Author Organization [facility] Address [phone] [place] [address] Care Team Providers Care Billet Grinder Name Role Phone Pcp, Unknown Primary Care Provider Unavailabl e Reason for Visit * Auth/Cert (Routine) Specialty Diagnoses / Procedures Referred By Contac t Referred To Contact Referral ID Status Reason Start Date Expiration Date Visits Re quested Visits Authorized [id number] 1 1 Encounter Details Date Type Department Care Team (Late st Contact Info) Description 08/04/2024 9:00 AM EST Home Care Visit [facility] [address] [place] [phone] Tala Alvarez, RN [address] [place] [address] [email or web address] SN HOME VISIT Social History [...] Care Visit [facility] [address] [place] [phone] Tala Alvarez RN [address] [place] [address] 08/15/2024 2:00 AM EST Home Care Visit [facility] [address] [place] [phone] Tala Alvarez RN [address] [place] [address] 08/18/2024 1:00 AM EST Home Care Visit [facility] [address] [place] [phone] Tala Alvarez RN [address] [place] [address] 08/22/2024 1:30 AM EDT Home Care Visit [facility] [address] [place] [phone] Tala Alvarez RN [address] [place] [address] 08/25/2024 12:30 AM EDT Home Care Visit [facility] [address] [place] [phone] Tala Alvarez RN [address] [place] [address] 08/29/2024 2:00 AM EDT Home Care Visit [facility] [address] [place] [phone] Tala Alvarez RN [address] [place] [address] 09/01/2024 12:30 AM EDT Home [facility] Visit [facility] [address] [place] [phone] Tala Alvarez RN [address] [place] [address] 09/05/2024 1:30 AM EDT Home Care Visit [facility] [address] [place] [phone] Tala Alvarez RN [address] [place] [address] 09/08/2024 12:30 AM EDT Home Care Visit [facility] [address] [place] [phone] Tala Alvarez RN [address] [place] [address] 09/12/2024 1:00 AM EDT Home [facility] Visit [facility] [address] [place] [phone] Tala Alvarez, PAMELA [address] [place] [address] 09/15/2024 Home Care Visit [facility] [address] [place] [phone] Tala Alvarez, PAMELA [address] [place] [address] 09/19/2024 Appointment [facility] [address] [place] [phone] Tala Alvarez RN [address] [place] [address] documented as of this encounter Visit Diagnoses Not on filedocumented in this encounter Home Health Visit - Care Plan Visit Details Visit Type - HOME VISIT Discipline -Detention Problems Problem Description Start Date Status Goals [...] this visit HH - Ostomy Management Disciplines: Detention 11/27/2023 Active 1 goal linked to scheduled/document [...] contact from Disabled at Risk or her [facility] to discuss community supports to assume ostomy care after VNA discharge. Informed that [facility]NA ABRASIVE BAND WINDER will be scheduled for a one time [...] TYPE: ILEOSTOMY DEVICE PRODUCT NAME AND SIZE: CarousellIMS- [id number]- 1-PIECE COLOPLAST [id number]. Problem:HH - Ostomy Management Goal:HH - Demonstrate/verbalize [...] Completed documented in this encounter Care Teams Billet Grinder Relationship Specialty Start Date End Date Pcp, Unknown PCP - General 02/23/23 documented as of this encounter Additional Source Comments The information contained in this document represents components of the legal health record. It is not the complete legal health record.[facility]
--- OUTSIDE RECORDS SUMMARY | 2024-08-11 07:57 | XMS_ITS | Encounter Summary ---
Author Organization [facility] Address [phone] [place] [address] Care Team Providers Care Camera Repairer Name Role Phone Pcp, Unknown Primary Care Provider Unavailabl e Reason for Visit * Auth/Cert (Routine) Specialty Diagnoses / Procedures Referred By Contac t Referred To Contact Referral ID Status Reason Start Date Expiration Date Visits Re quested Visits Authorized [id number] 1 1 Encounter Details Date Type Department Care Team (Late st Contact Info) Description 07/28/2024 12:30 PM EST Home Care Visit [facility] [address] [place], [place] [phone] Tala Alvarez RN [address] [place] [address] [email or web address] SN PRN HOME VISIT Social History Tobacco [...] 8:30 AM EST Home Care Visit [facility] [address] [place], [place] [phone] Tala Alvarez RN [address] [place] [address] [email or web address] 08/15/2024 2:00 AM EST Home Care Visit [facility] [address] [place] [phone] Tala Alvarez, PAMELA [address] [place] [address] [email or web address] 08/18/2024 1:00 AM EST Home Care Visit [facility] [address] [place] [phone] Tala Alvarez, PAMELA [address] [place] [address] [email or web address] 08/22/2024 1:30 AM EDT Home Care Visit [facility] [address] [place] [phone] Tala Alvarez RN [address] [place] [phone] [email or web address] 08/25/2024 12:30 AM EDT Home Care Visit [facility] [address] [place] [phone] Tala Alvarez, PAMELA [address] [place] [phone] [email or web address] 08/29/2024 2:00 AM EDT Home Care Visit [facility] [address] [place] [phone] Tala Alvarez RN [address] [place] [phone] [email or web address] 09/01/2024 12:30 AM EDT Home Care Visit [facility] [address] [place] [phone] Tala Alvarez RN [address] [place] [address] [email or web address] 09/05/2024 1:30 AM EDT Home Care Visit [facility] [address] [place] [phone] Tala Alvarez RN [address] [place] [address] [email or web address] 09/08/2024 12:30 AM EDT Home Care Visit [facility] [address] [place] [phone] Tala Alvarez RN [address] [place] [address] [email or web address] 09/12/2024 1:00 AM EDT Home [facility] Visit [facility] [address] [place] [phone] Tala Alvarez RN [address] [place] [address] 09/15/2024 Home Care Visit [facility] [address] [place] [phone] Tala Alvarez RN [address] [place] [address] 09/19/2024 Appointment [facility] [address] [place] [phone] Tala Alvarez RN [address] [place] [address] documented as of this encounter Visit Diagnoses Not on filedocumented in this encounter Home Health Visit - Care Plan Visit Details Visit Type -SN PRN HOME VISI T Discipline -Nursing Home Problems Problem Description Start Date Status [...] to learn ileostomy mangement. Pt will require livestock farmers or move to living placement where assistance [...] from clogging filter. Pt verbalizes understanding. Suggested SUPERVISOR DETASSELING CREW via VNA to help explain options for care to address her inability to care for stoma. Agreeable to SUPERVISOR DETASSELING CREW visit. Had return call from PCP office with VO for SUPERVISOR DETASSELING CREW. Instruction Provided to: patient Response to Instruction/Teachin [...] Completed documented in this encounter Care Teams Camera Repairer Relationship Specialty Start Date End Date Pcp, Unknown PCP - General 02/23/23 documented as of this encounter Additional Source Comments The information contained in this document represents components of the legal health record. It is not the complete legal health record.[facility]
--- OUTSIDE RECORDS SUMMARY | 2024-08-11 07:57 | XMS_ITS | Encounter Summary ---
Author Organization [facility] Address [phone] [place] [address] Care Team Providers Care Embedded Processor Name Role Phone Pcp, Unknown Primary Care Provider Unavailabl e Reason for Visit * Auth/Cert (Routine) Specialty Diagnoses / Procedures Referred By Contac t Referred To Contact Referral ID Status Reason Start Date Expiration Date Visits Re quested Visits Authorized [id number] 1 1 Encounter Details Date Type Department Care Team (Late st Contact Info) Description 07/12/2024 8:15 AM EST Home Care Visit [facility] [address] [place], [place] [phone] Tala Alvarez RN [address] [place] [address] [email or web address] SN PRN HOME VISIT Social History Tobacco [...] 8:30 AM EST Home Care Visit [facility] [address] [place], [place] [phone] Tala Alvarez RN [address] [place] [address] [email or web address] 08/15/2024 2:00 AM EST Home Care Visit [facility] [address] [place] [phone] Tala Alvarez, PAMELA [address] [place] [address] [email or web address] 08/18/2024 1:00 AM EST Home Care Visit [facility] [address] [place] [phone] Tala Alvarez, PAMELA [address] [place] [address] [email or web address] 08/22/2024 1:30 AM EDT Home Care Visit [facility] [address] [place] [phone] Tala Alvarez RN [address] [place] [phone] [email or web address] 08/25/2024 12:30 AM EDT Home Care Visit [facility] [address] [place] [phone] Tala Alvarez, PAMELA [address] [place] [address] [email or web address] 08/29/2024 2:00 AM EDT Home Care Visit [facility] [address] [place] [phone] Tala Alvarez RN [address] [place] [phone] [email or web address] 09/01/2024 12:30 AM EDT Home Care Visit [facility] [address] [place] [phone] Tala Alvarez RN [address] [place] [address] [email or web address] 09/05/2024 1:30 AM EDT Home Care Visit [facility] [address] [place] [phone] Tala Alvarez RN [address] [place] [address] [email or web address] 09/08/2024 12:30 AM EDT Home [facility] Visit [facility] [address] [place] [phone] Tala Alvarez RN [address] [place] [address] [email or web address] 09/12/2024 1:00 AM EDT Home [facility] Visit [facility] [address] [place] [phone] Tala Alvarez RN [address] [place] [address] 09/15/2024 Home Care Visit [facility] [address] [place] [phone] Tala Alvarez RN [address] [place] [address] 09/19/2024 Appointment [facility] [address] [place] [phone] Tala Alvarez RN [address] [place] [address] documented as of this encounter Visit Diagnoses [...] Completed documented in this encounter Care Teams Embedded Processor Relationship Specialty Start Date End Date Pcp, Unknown PCP - General 02/23/23 documented as of this encounter Additional Source Comments The information contained in this document represents components of the legal health record. It is not the complete legal health record.[facility]
--- OUTSIDE RECORDS SUMMARY | 2024-08-11 07:57 | XMS_ITS | Encounter Summary ---
Author Organization [facility] Address [phone] [place] [address] Care Team Providers Care Project Consultant Name Role Phone Pcp, Unknown Primary Care Provider Unavailabl e Reason for Visit * Auth/Cert (Routine) Specialty Diagnoses / Procedures Referred By Contac t Referred To Contact Referral ID Status Reason Start Date Expiration Date Visits Re quested Visits Authorized [id number] 1 1 Encounter Details Date Type Department Care Team (Late st Contact Info) Description 07/07/2024 8:15 AM EST Home Care Visit [facility] [address] [place] [phone] Tala Alvarez, RN [address] [place] [address] [email or web address] SN HOME VISIT Social History Tobacco [...] 8:30 AM EST Home Care Visit [facility] [address] [place] [phone] Tala Alvarez, PAMELA [address] [place] [address] 08/15/2024 2:00 AM EST Home Care Visit [facility] [address] [place] [phone] Tala Alvarez RN [address] [place] [address] 08/18/2024 1:00 AM EST Home Care Visit [facility] [address] [place] [phone] Tala Alvarez RN [address] [place] [address] 08/22/2024 1:30 AM EDT Home Care Visit [facility] [address] [place] [phone] Tala Alvarez, PAMELA [address] [place] [address] 08/25/2024 12:30 AM EDT Home Care Visit [facility] [address] [place] [phone] Tala Alvarez, PAMELA [address] [place] [address] 08/29/2024 2:00 AM EDT Home Care Visit [facility] [address] [place] [phone] Tala Alvarez, RN [address] [place] [address] 09/01/2024 12:30 AM EDT Home Care Visit [facility] [address] [place] [phone] Tala Alvarez, RN [address] [place] [address] 09/05/2024 1:30 AM EDT Home Care Visit [facility] [address] [place] [phone] Tala Alvarez, RN [address] [place] [address] 09/08/2024 12:30 AM EDT Home Care Visit [facility] [address] [place] [phone] Tala Alvarez, RN [address] [place] [address] 09/12/2024 1:00 AM EDT Home Care Visit [facility] [address] [place] [phone] Tala Alvarez, RN [address] [place] [address] 09/15/2024 Home Care Visit [facility] [address] [place] [phone] Tala Alvarez, RN [address] [place] [address] 09/19/2024 Appointment [facility] [address] [place] [phone] Tala Alvarez, RN [address] [place] [address] documented as of this encounter Visit Diagnoses [...] Completed documented in this encounter Care Teams Project Consultant Relationship Specialty Start Date End Date Pcp, Unknown PCP - General 02/23/23 documented as of this encounter Additional Source Comments The information contained in this document represents components of the legal health record. It is not the complete legal health record.[facility]
--- OUTSIDE RECORDS SUMMARY | 2024-08-11 07:57 | XMS_ITS | Encounter Summary ---
Author Organization [facility] Address [phone] [place] [address] Care Team Providers Care Network Support Engineer Name Role Phone Pcp, Unknown Primary Care Provider Unavailabl e Reason for Visit * Auth/Cert (Routine) Specialty Diagnoses / Procedures Referred By Contac t Referred To Contact Referral ID Status Reason Start Date Expiration Date Visits Re quested Visits Authorized [id number] 1 1 Encounter Details Date Type Department Care Team (Late st Contact Info) Description 08/04/2024 7:30 PM EST Home Care Visit [facility] [address] [place], [place] [phone] Avani Simmons RN [address] [place] [address] [email or web address] SN PRN [...] 8:30 AM EST Home Care Visit [facility] [address] [place], [place] [phone] Tala Alvarez RN [address] [place], [place] [phone] [email or web address] 08/15/2024 2:00 AM EST Home Care Visit [facility] [address] [place] [phone] Tala Alvarez, PAMELA [address] [place] [address] [email or web address] 08/18/2024 1:00 AM EST Home Care Visit [facility] [address] [place] [phone] Tala Alvarez, PAMELA [address] [place] [address] [email or web address] 08/22/2024 1:30 AM EDT Home Care Visit [facility] [address] [place] [phone] Tala Alvarez RN [address] [place] [address] [email or web address] 08/25/2024 12:30 AM EDT Home Care Visit [facility] [address] [place] [phone] Tala Alvarez, PAMELA [address] [place] [phone] [email or web address] 08/29/2024 2:00 AM EDT Home Care Visit [facility] [address] [place] [phone] Tala Alvarez RN [address] [place] [address] [email or web address] 09/01/2024 12:30 AM EDT Home Care Visit [facility] [address] [place] [phone] Tala Alvarez RN [address] [place] [address] [email or web address] 09/05/2024 1:30 AM EDT Home Care Visit [facility] [address] [place] [phone] Tala Alvarez RN [address] [place] [address] [email or web address] 09/08/2024 12:30 AM EDT Home [facility] [address] [place] [phone] Tala Alvarez RN [address] [place] [address] [email or web address] 09/12/2024 1:00 AM EDT Home [facility] [address] [place] [phone] Tala Alvarez RN [address] [place] [address] [email or web address] 09/15/2024 Home Care Visit [facility] [address] [place] [phone] Tala Alvarez RN [address] [place] [address] [email or web address] 09/19/2024 Appointment [facility] [address] [place] [phone] Tala Alvarez RN [address] [place] [address] [email or web address] documented as of this encounter Visit Diagnoses Not on filedocumented in this encounter Home Health Visit - Care Plan Visit Details Visit Type -SN PRN HOME VISI T Discipline -Fdc Problems Problem Description Start Date Status Goals [...] for a new one, applied thick half wseley shaped on the edge of device, specifically [...] Completed documented in this encounter Care Teams Network Support Engineer Relationship Specialty Start Date End Date Pcp, Unknown PCP - General 02/23/23 documented as of this encounter Additional Source Comments The information contained in this document represents components of the legal health record. It is not the complete legal health record.[facility]
--- OUTSIDE RECORDS SUMMARY | 2024-08-11 07:57 | XMS_ITS | Encounter Summary ---
Author Organization [facility] Address [phone] [place] [address] Care Team Providers Care Marketing Development Manager Name Role Phone Pcp, Unknown Primary Care Provider Unavailabl e Reason for Visit * Auth/Cert (Routine) Specialty Diagnoses / Procedures Referred By Contac t Referred To Contact Referral ID Status Reason Start Date Expiration Date Visits Re quested Visits Authorized [id number] 1 1 Encounter Details Date Type Department Care Team (Late st Contact Info) Description 08/08/2024 9:30 AM EST Home Care Visit [facility] [address] [place] [phone] Tala Alvarez, RN [address] [place] [address] [email or web address] SN HOME [...] Care Visit [facility] [address] [place] [phone] Tala Alvarez RN [address] [place] [address] [email or web address] 08/15/2024 2:00 AM EST Home Care Visit [facility] [address] [place] [phone] Tala Alvarez RN [address] [place] [address] [email or web address] 08/18/2024 1:00 AM EST Home Care Visit [facility] [address] [place] [phone] Tala Alvarez RN [address] [place] [address] [email or web address] 08/22/2024 1:30 AM EDT Home Care Visit [facility] [address] [place] [phone] Tala Alvarez RN [address] [place] [address] [email or web address] 08/25/2024 12:30 AM EDT Home Care Visit [facility] [address] [place] [phone] Tala Alvarez RN [address] [place] [address] [email or web address] 08/29/2024 2:00 AM EDT Home Care Visit [facility] [address] [place] [phone] Tala Alvarez RN [address] [place] [address] [email or web address] 09/01/2024 12:30 AM EDT Home Care Visit [facility] [address] [place] [phone] Tala Alvarez RN [address] [place] [address] [email or web address] 09/05/2024 1:30 AM EDT Home Care Visit [facility] [address] [place] [phone] Tala Alvarez RN [address] [place] [address] [email or web address] 09/08/2024 12:30 AM EDT Home [facility] Visit [facility] [address] [place] [phone] Tala Alvarez RN [address] [place] [address] [email or web address] 09/12/2024 1:00 AM EDT Home Care Visit [facility] [address] [place] [phone] Tala Alvarez, PAMELA [address] [place] [address] [email or web address] 09/15/2024 Home Care Visit [facility] [address] [place] [phone] Tala Alvarez, PAMELA [address] [place] [address] [email or web address] 09/19/2024 Appointment [facility] [address] [place] [phone] Tala Alvarez RN [address] [place] [address] [email or web address] documented as of this encounter Visit Diagnoses Not on filedocumented in this encounter Home Health Visit - Care Plan Visit Details Visit Type - HOME VISIT Discipline -Shelter Problems Problem Description [...] this visit HH - Ostomy Management Disciplines: Shelter 11/27/2023 [...] Focus this Visit & Instruction Provided: Call placed to [facility] left requesting call back regarding plan for terminal computer operator ostomy management as pt has continued to require frequent PRN visits due to leakage- mostly in evening and night hours. Pt reports that she went to ED over weekend due to Tachycardia received IV meds to help symptoms, cardiology appt not until October, Questioned if it was r/t anxiety- she thinks it was a cardiac event but she was discharged home from ED same day. Today VSS, Apical HR regular, pulses strong, no anxiety noted during visit. Has appt with Dr. Nielsen on August 25 to assess stoma. Ileo stomy care provided. Peristomal skin intact except for 0,2cm maceration on lower aspect of stoma. Stoma powder applied and double layer of cavilon skin prep advanced. Tolerated pouch change well. Pt's essential tremor is preventing pt to learn self care, tremor increases with anxiety. Caregiver is unable to perform task due to visual impairment and own health issues. Instruction Provided to: patient Response to Instruction/Teachin g: Is partially able to teach back topics as evidenced by asking questions and difficulty with memory. Plan for Next Visit Specific Focus & Education Needed: ileostomy care, continue to coordiante dc plan with ARNOLDO New Orders: no Updated Discharge Plan: no change 2xw and PRN HH - I/E management of care in [...] or movement by discharge. Completed HH - I/E Ostomy management: Ostomy [...] Completed documented in this encounter Care Teams Marketing Development Manager Relationship Specialty Start Date End Date Pcp, Unknown PCP - General 02/23/23 documented as of this encounter Additional Source Comments The information contained in this document represents components of the legal health record. It is not the complete legal health record.[facility]
--- OUTSIDE RECORDS SUMMARY | 2024-08-11 07:57 | XMS_ITS | Encounter Summary ---
Author Organization [facility] Address [phone] [place] [address] Care Team Providers Care Package Wrapper Name Role Phone Pcp, Unknown Primary Care Provider Unavailabl e Reason for Visit * Auth/Cert (Routine) Specialty Diagnoses / Procedures Referred By Contac t Referred To Contact Referral ID Status Reason Start Date Expiration Date Visits Re quested Visits Authorized [id number] 1 1 Encounter Details Date Type Department Care Team (Late st Contact Info) Description 08/01/2024 10:45 AM EST Home Care Visit [facility] [address] [place], [place] [phone] Yehuda Moore RN [address] [place] [address] [email or web address] SN HOME VISIT [...] 8:30 AM EST Home Care Visit [facility] [address] [place], [place] [phone] Tala Alvarez RN [address] [place] [address] 08/15/2024 2:00 AM EST Home [facility] Visit [facility] [address] [place] [phone] Tala Alvarez, PAMELA [address] [place] [address] 08/18/2024 1:00 AM EST Home Care Visit [facility] [address] [place] [phone] Tala Alvarez, PAMELA [address] [place] [address] 08/22/2024 1:30 AM EDT Home Care Visit [facility] [address] [place] [phone] Tala Alvarez RN [address] [place] [address] 08/25/2024 12:30 AM EDT Home Care Visit [facility] [address] [place] [phone] Tala Alvarez, PAMELA [address] [place] [address] 08/29/2024 2:00 AM EDT Home Care Visit [facility] [address] [place] [phone] Tala Alvarez RN [address] [place] [address] 09/01/2024 12:30 AM EDT Home Care Visit [facility] [address] [place] [phone] Tala Alvarez RN [address] [place] [address] 09/05/2024 1:30 AM EDT Home Care Visit [facility] [address] [place] [phone] Tala Alvarez RN [address] [place] [address] [email or web address] 09/08/2024 12:30 AM EDT Home [facility] Visit [facility] [address] [place] [phone] Tala Alvarez RN [address] [place] [address] 09/12/2024 1:00 AM EDT Home [facility] Visit [facility] [address] [place] [phone] Tala Alvarez RN [address] [place] [address] 09/15/2024 Home Care Visit [facility] [address] [place] [phone] Tala Alvarez RN [address] [place] [address] 09/19/2024 Appointment [facility] [address] [place] [phone] Tala Alvarez RN [address] [place] [address] documented as of this encounter Visit Diagnoses Not on filedocumented in this encounter Home Health Visit - Care Plan Visit Details Visit Type -SN HOME VISIT Discipline -Long Term Problems Problem [...] emergency related situation. Completed HH - Assess infection risk and [...] ILEOSTOMY DEVICE PRODUCT NAME AND SIZE: GLORIA NICOLASIMS- [id number]- 1-PIECE COLOPLAST 15817. Problem: - Ostomy Management Goal: - Demonstrate/verbalize [...] Completed documented in this encounter Care Teams Package Wrapper Relationship Specialty Start Date End Date Pcp, Unknown PCP - General 02/23/23 documented as of this encounter Additional Source Comments The information contained in this document represents components of the legal health record. It is not the complete legal health record.[facility]
--- OUTSIDE RECORDS SUMMARY | 2024-08-11 07:58 | XMS_ITS | Encounter Summary ---
Author Organization [facility] Address [phone] [place] [address] Care Team Providers Care Errand Runner Name Role Phone Unknown, Unknown Primary Care Provider Brett Whitaker MD Primary Care Provider [phone] Pcp, Unknown Primary Care Provider Unavailabl e Encounter Details Date Type Department Care Team (Late st Contact Info) Description 01/21/2023 Transcribe Orders [facility] Specimen Processing [address] [place] [address] Stewart Carlson MD [address] [facility], [address], [address] [place] [address] Anemia, unspecified type (Primary Dx) Social History [...] 8:30 AM EST Home Care Visit [facility] [address] [place], [place] [phone] Tala Alvarez RN [address] [place] [address] 08/15/2024 2:00 AM EST Home Care Visit [facility] [address] [place], [place] [phone] Tala Alvarez, PAMELA [address] [place] [address] [email or web address] 08/18/2024 1:00 AM EST Home Care Visit [facility] [address] [place] [phone] Tala Alvarez, PAMELA [address] [place] [address] [email or web address] 08/22/2024 1:30 AM EDT Home Care Visit [facility] [address] [place] [phone] Tala Alvarez, PAMELA [address] [place] [address] [email or web address] 08/25/2024 12:30 AM EDT Home Care Visit [facility] [address] [place] [phone] Tala Alvarez, PAMELA [address] [place] [address] [email or web address] 08/29/2024 2:00 AM EDT Home Care Visit [facility] [address] [place] [phone] Tala Alvarez, PAMELA [address] [place] [address] [email or web address] 09/01/2024 12:30 AM EDT Home Care Visit [facility] [address] [place] [phone] Tala Alvarez, PAMELA [address] [place] [address] [email or web address] 09/05/2024 1:30 AM EDT Home Care Visit [facility] [address] [place] [phone] Tala Alvarez, PAEMLA [address] [place] [address] [email or web address] 09/08/2024 12:30 AM EDT Home Care Visit [facility] [address] [place] [phone] Tala Alvarez RN [address] [place] [address] [email or web address] 09/12/2024 1:00 AM EDT Home Care Visit [facility] [address] [place] [phone] Tala Alvarez RN [address] [place] [address] [email or web address] 09/15/2024 [facility] [address] [place] [phone] Tala Alvarez RN [address] [place] [address] [email or web address] 09/19/2024 [facility]ment [facility] [address] [place] [phone] Tala Alvarez RN [address] [place] [address] [email or web address] documented as of this encounter Results * Vitamin B12 (01/21/2023 5:50 AM EDT) [facility] VITAMIN B12 1,019 232 - 1,245 pg/mL [facility] 01/21/2023 5:50 AM EDT 01/21/2023 12:07 PM EDT Stewart Carlson MD LAB BLOOD ORDERABLES [address] [address] * (ABNORMAL) Iron and iron binding capacity (01/21/2023 5:50 AM EDT) IRON 67 30 - 160 ug/dL [facility] IRON BINDING CAPACITY 222(L) 228 - 428 ug/dL [facility] TRANSFERRIN SATURAT. 30 15 - 50 % [facility] 01/21/2023 5:50 AM EDT 01/21/2023 12:07 PM EDT Stewart Carlson MD LAB BLOOD ORDERABLES Performing Organization Address [facility]/ZIP Co de Phone Number [address] [address] * Ferritin (01/21/2023 5:50 AM EDT) FERRITIN 56 13 - 150 ug/L [facility] 01/21/2023 5:50 AM EDT 01/21/2023 12:07 PM EDT Stewart Carlson MD LAB BLOOD ORDERABLES Performing Organization Address [facility] Co de Phone Number [address] [address] * (ABNORMAL) Folate (01/21/2023 5:50 AM EDT) FOLIC ACID 3.0(L) 4.2 - 19.9 ng/mL [facility] 01/21/2023 5:50 AM EDT 01/21/2023 12:07 PM EDT Stewart Carlson MD LAB BLOOD ORDERABLES Performing Organization Address [facility] Co de Phone Number [address] [address] * (ABNORMAL) CBC (01/21/2023 5:50 AM EDT) WBC 6.33 4.00 - 11.00 K/uL [facility] RBC 2.92(L) 3.72 - 5.30 M/uL [facility] HGB 8.4(L) 11.4 - 15.9 g/dL [facility] HCT 27.7(L) 34.2 - 46.8 % [facility] PLT 228 140 - 430 K/uL [facility] MCV 94.9 78.0 - 97.0 fL [facility] MCH 28.8 25.0 - 33.0 pg [facility] MCHC 30.3(L) 32.0 - 36.0 g/dL [facility] RDW 16.9(H) 11.0 - 16.0 % [facility] MPV 11.5 8.4 - 12.8 fl [facility] 01/21/2023 5:50 AM EDT 01/21/2023 12:07 PM EDT Stewart Carlson MD LAB BLOOD ORDERABLES [facility] [address] [place] [address] documented in this encounter Visit Diagnoses Diagnosis Anemia, unspecified type- Primary documented in this encounter Care Teams Errand Runner Relationship Specialty Start Date End Date Unknown, Unknown, MD PCP - General 01/21/23 01/27/23 Brett Su MD [address] [place] [id number] PCP - General Internal Medicine 01/28/23 01/28/23 Pcp, Unknown PCP - General 02/23/23 documented as of this encounter Additional Source Comments The information contained in this document represents components of the legal health record. It is not the complete legal health record.[facility]
[2024-10-05 13:37] VITALS: BMI 20.8
--- NOTE | 2024-10-06 12:07 | HO.ANESPROP2 ---
Documented by User: Maureen Boyd NP 10/06/24 12:12 HPI - Anesthesia Eval Consult details Narrative: 59yo F for Interstim Lead Test- REVISION and PLACEMENT, Cystoscopy Hydrodistention of Bladder s/p cysto, hydrodistention 08/2024 with GA-LMA 4 PMFSH Active Problems Active Problems: All Active Problems Lumbosacral spondylosis (Acute) Lumbar radiculopathy (Acute) Pelvic floor dysfunction in female (Acute) Urinary urgency (Acute) Bladder pain (Acute) Fracture of fifth metatarsal bone of left foot (Acute) Bladder spasm (Acute) Interstitial cystitis (Acute) Sacral nerve stimulator present (Acute) Past Medical History Medical History Sacral nerve stimulator present Colostomy in place On beta morgan at home Anxiety SVT (supraventricular tachycardia) Depression Back pain History of gastrostomy tube placement Hx of ulcerative colitis Hx of cystitis History of anxiety Asthma Elevated cholesterol Family History Family history of problems with anesthesia: No Surgical History Surgical History History of bowel diversion surgery History of tubal ligation History of endometrial ablation History of bladder surgery History of Problems with Anesthesia: No Social History Social History Household Members: Significant Other Household Members Other:: s.o can stay to help when needed Housing: Apartment Are you a primary pet care associate to a significant other at home: No Do you presently have visiting nurse or other home services: No Alcohol intake: former Patient Tobacco Use Status: Current everyday Tobacco user Tobacco use type: Cigarette Cigarettes Per Day: 3 Years Smoked: 25 Smoked in Last 30 Days: Yes Patient Interested in Nicotine Replacement: No Have you been hit, kicked, punched, or otherwise hurt by someone within the past year? If so, by whom?: No Are you DNR?: No Advance Directives: No Advance Directives Information Provided: Yes Poor oral hygiene: No Current occupational status: disabled Meds Allergies Allergy/AdvReac Type Severity Reaction Status Date / Time amoxicillin [From AUGMENTIN] Allergy Severe SEVERE Verified 10/09/24 11:40 DIARRHEA Trsmbpx-IJN-PuU Reductase Allergy Intermediate muscle Verified 10/09/24 11:40 Inhibitor aches, [[id number] REDUCTASE cramps INHIBITOR] acetaminophen [ACETAMINOPHEN] AdvReac Severe GI upset. Verified 10/09/24 11:40 Pt confirmed NOT allergic to oxycodone NSAIDS (Non-Steroidal AdvReac Severe Gastrointestinal Verified 10/09/24 11:40 Anti-Inflamma Upset oxycodone [From Percocet] AdvReac Gastrointestinal Verified 10/09/24 11:40 Upset Home Medications ?Medication ?Instructions ?Recorded ?Confirmed ?Last Taken ?Type albuterol sulfate 90 mcg/actuation 2 puff inhalation Q4-6H PRN 04/25/20 10/09/24 04/13/22 History aerosol inhaler (ProAir HFA) Shortness Of Breath metoprolol succinate 25 mg 12.5 mg PO DAILY 08/08/21 10/09/24 10/09/24 History tablet,extended release 24 hr omeprazole 20 mg capsule,delayed 20 mg PO DAILY 11/03/21 10/09/24 10/09/24 History release trazodone 50 mg tablet 50 mg PO BEDTIME 10/15/23 10/09/24 Unknown History lorazepam 0.5 mg tablet 0.5 mg PO NEEDED PRN Anxiety 04/07/24 10/09/24 10/09/24 History trazodone 100 mg tablet 100 mg PO BEDTIME 04/07/24 10/09/24 Unknown History primidone 50 mg tablet 50 mg PO BID 06/13/24 10/09/24 Unknown History Exam Height,Weight and Vital Signs: Height 5 ft 5 in Weight 56.69 kg Pertinent Lab Results Pertinent Lab Results: Laboratory Tests 09/06/24 19:59 WBC 5.8 Hgb 7.2 L Hct 23.6 L Plt Count 245 Sodium 138 Potassium 4.1 Chloride 108 Carbon Dioxide 25 BUN 23 H Creatinine 0.72 Narrative Narrative: EKG 08/2024 Vent. Rate : 87 BPM Atrial Rate : 87 BPM P-R Int : 136 ms QRS Dur : 74 ms QT Int : 380 ms P-R-T Axes : 43 11 1 degrees QTcB Int : 457 ms Normal sinus rhythm Normal ECG When compared with ECG of 08-Aug-2024 18:21, No significant change was found Assessment and Plan Assessment Anesthesia Assessment: Chart Reviewed Final Anesthetic Review Family History of Problems with Anesthesia: No History of Problems with Anesthesia: No Documented by User: Nikunj Griffin MD 10/09/24 14:59 PMFSH Past Medical History Medical History Sacral nerve stimulator present Colostomy in place On beta morgan at home Anxiety SVT (supraventricular tachycardia) Depression Back pain History of gastrostomy tube placement Hx of ulcerative colitis Hx of cystitis History of anxiety Asthma Elevated cholesterol Surgical History Surgical History History of bowel diversion surgery History of tubal ligation History of endometrial ablation History of bladder surgery Social History Social History Household Members: Significant Other Household Members Other:: s.o can stay to help when needed Housing: Apartment Are you a primary pet care associate to a significant other at home: No Do you presently have visiting nurse or other home services: No Alcohol intake: former Patient Tobacco Use Status: Current everyday Tobacco user Tobacco use type: Cigarette Cigarettes Per Day: 3 Years Smoked: 25 Smoked in Last 30 Days: Yes Patient Interested in Nicotine Replacement: No Have you been hit, kicked, punched, or otherwise hurt by someone within the past year? If so, by whom?: No Are you DNR?: No Advance Directives: No Advance Directives Information Provided: Yes Poor oral hygiene: No Current occupational status: disabled Meds Allergies Allergy/AdvReac Type Severity Reaction Status Date / Time amoxicillin [From AUGMENTIN] Allergy Severe SEVERE Verified 10/09/24 11:40 DIARRHEA Ynfgndx-DHE-UbD Reductase Allergy Intermediate muscle Verified 10/09/24 11:40 Inhibitor aches, [[id number]-[id number]-[id number] REDUCTASE cramps INHIBITOR] acetaminophen [ACETAMINOPHEN] AdvReac Severe GI upset. Verified 10/09/24 11:40 Pt confirmed NOT allergic to oxycodone NSAIDS (Non-Steroidal AdvReac Severe Gastrointestinal Verified 10/09/24 11:40 Anti-Inflamma Upset oxycodone [From Percocet] AdvReac Gastrointestinal Verified 10/09/24 11:40 Upset Home Medications ?Medication ?Instructions ?Recorded ?Confirmed ?Last Taken ?Type albuterol sulfate 90 mcg/actuation 2 puff inhalation Q4-6H PRN 04/25/20 10/09/24 04/13/22 History aerosol inhaler (ProAir HFA) Shortness Of Breath metoprolol succinate 25 mg 12.5 mg PO DAILY 08/08/21 10/09/24 10/09/24 History tablet,extended release 24 hr omeprazole 20 mg capsule,delayed 20 mg PO DAILY 11/03/21 10/09/24 10/09/24 History release trazodone 50 mg tablet 50 mg PO BEDTIME 10/15/23 10/09/24 Unknown History lorazepam 0.5 mg tablet 0.5 mg PO NEEDED PRN Anxiety 04/07/24 10/09/24 10/09/24 History trazodone 100 mg tablet 100 mg PO BEDTIME 04/07/24 10/09/24 Unknown History primidone 50 mg tablet 50 mg PO BID 06/13/24 10/09/24 Unknown History Exam Airway Mallampati Class: I TM Dist: >3cm Neck ROM: Full Loose/Missing/Broken Teeth: Yes Heart: ok. h/o SVT Lungs: ok Assessment and Plan Assessment Anesthesia Assessment: Anesthesia Plan Discussed Final Anesthetic Review NPO: Yes ASA Class: II and III Final Preanesthetic Review: No Changes in Pt Med Stat, Meds/Allgs Chart Reviewed, Consent Obtained/Reviewed and Anes Risks/Benef Reviewed Patient Risk: Intermediate Procedure Risk: Intermediate Anesthetic Plan Anesthetic Plan: GA and Agree w/ Assess. and Plan Disposition: Standard PACU
[2024-10-09] VITALS (11 sets, daily range): BP systolic 113–136; BP diastolic 49–85; PULSE 60–80; RESP 16–18; TEMP 36.2–36.8; O2SAT 96–100; BMI 21.3
--- NOTE | ~2024-10-09 | FL_ITS ---
EXAMINATION: FL GUIDANCE ONLY HISTORY: interstim COMPARISON: Correlation is made with plain films of the lumbar spine dated 04/20/2024. TECHNIQUE: Fluoroscopy time: 40.6 seconds. Cumulative Dose: 17.19 mGy. Images: 2. FINDINGS: Images demonstrate disconnection of the previously seen right sacral stimulator. There has been placement of a new left-sided stimulator lead. FL/FL guidance in OR IMPRESSION: Fluoroscopy during procedure. Please see procedure report for additional information. Electronically signed by: Stevenson Ramirez MD 10/11/2024 03:17 PM EDT
[2024-10-09] MEDS: Lactated Ringers 1,000 ML 100 ML IVCONT (11:42)
--- NOTE | 2024-10-09 14:04 | MHC.SHP ---
Pre-Procedural Eval Section A - 24 Hr Update-Section A only Date of Service: 10/09/24 The patient is an INPATIENT: No Changes since office visit: No Cold of Flu in the past 2 weeks, No New Medical Problems, No Changes in Medication and No Patient answered all questions The patient has been examined within 24 hours of the surgical procedure. The History & Physical has been completed within 30 days and I have reviewed it.: Yes Section B - Complete if H&P > 30 days Chief Complaint: Interstitial cystitis (chronic) without hematuria Details of Present Illness: Interstitial cystitis with urgency and frequency. Prior response to bladder modulation with InterStim. Here for revision of system placed 15 years ago. Removal and replacement of lead and generator. May also performed cystoscopy with hydrodistention concurrently. Relevant Family History (Specify if Yes): No Relevant Social History: None Present Medications: see Short Stay Collaborative assessment Medical History: Significant History History of Previous Operations: Relevant previous surgery/procedure and date(s) Allergies: Allergies Allergy/AdvReac Type Severity Reaction Status Date / Time amoxicillin [From AUGMENTIN] Allergy Severe SEVERE Verified 10/09/24 11:40 DIARRHEA Jfwabrv-UNZ-PwZ Reductase Allergy Intermediate muscle Verified 10/09/24 11:40 Inhibitor aches, [RLHKYDE-HEI-EBH REDUCTASE cramps INHIBITOR] acetaminophen [ACETAMINOPHEN] AdvReac Severe GI upset. Verified 10/09/24 11:40 Pt confirmed NOT allergic to oxycodone NSAIDS (Non-Steroidal AdvReac Severe Gastrointestinal Verified 10/09/24 11:40 Anti-Inflamma Upset oxycodone [From Percocet] AdvReac Gastrointestinal Verified 10/09/24 11:40 Upset Review of Systems Sugical H&P ROS: Negative: Constitution, Cardiovascular, Respiratory, Neurological, Psychiatric, Hem-Onc, Allergic/Immunologic, Gastrointestinal, Genitourinary, Musculoskeletal, Integumentary, Endocrine and Eyes/Ears/Nose/Throat Exam Surgical H&P Exam: Normal: HEENT, Normal: Heart, Normal: Lungs, Normal: Extremities, Normal: Abdomen, Normal: Skin and Normal: Neurological Plan Diagnosis/Plan: Unchanged I have reviewed the history and physical and performed a pertinent physical examination on my patient. No changes have occurred unless specified. Time Spent With Patient Time: Total time managing care of this patient today ____ minutes.
[2024-10-09] MEDS: ceFAZolin Sodium/Dextrose,Iso 2 GM/50 ML PIGGYBACK IV (14:38)
[2024-10-09] MEDS: fentaNYL citrate/PF 100 MCG/2 ML VIAL 50 MCG IVPUSH ×4 (16:08→17:05)
--- NOTE | 2024-10-09 16:08 | P.OP_ITS ---
Operative Note Operative Note Date of Service: 10/09/24 Narrative: PreOperative Diagnosis: Overactive bladder with urinary urgency and frequency Post Operative Diagnosis: Overactive bladder with urinary urgency and frequency Procedure: 1.) Removal of InterStim lead 2.) Removal of InterStim battery 3.) Placement of InterStim lead 4.) Placement of InterStim battery Surgeon: Dr Mk Cornelius Anesthesia: sedation Indications for procedure: Had indwelling Interstim placed 2007. Had stopped working. Here for removal of old interstim with replacement. Procedure: After informed consent was verified the patient was brought to the operating room. Sedation anesthesia was administered per protocol. The patient was placed in a prone position and prepped and draped in a sterile fashion. Safety pause time-out was performed. Local anesthetic was infiltrated around the initial battery pocket incision on the right lateral superior buttock. Incision was made and taken down till the battery was encountered. The battery pocket was opened and a battery brought out to the skin. Using the C-arm and a snap the lead entering S3 on the right side was targeted. Local anesthetic was infiltrated around the prior incision and incision made through the skin. Using blunt dissection the original lead was isolated and brought up through our skin incision. This was get disconnected from the battery to give us the full lead in the sacral position. The lead was dissected down until we could palpate the transition to the thickened plastic. Using a right angle clamp we were able to fully withdrawal the old lead from its position in the S3 foramen. The last 4cm of lead remained in place. Using the C-arm in an AP and lateral view the finding needle was introduced into the left S3 foramen running from a caudad to chordal direction. Using the lead android developer we could confirm good toe movement and Hector response. The internal introducer from the needle was removed and the control lead placed. The find needle was removed and the dilator sheath introduced. Under fluoroscopic guidance the dilator sheath was advanced till the marker was seen mid point through the sacral bone on the lateral image. The internal cannula from the dilator was removed. The guidewire was removed. The active lead was then introduced through the dilator sheath and advanced so that the 3rd and 4th marked electrodes crossed the internal boundary line of the sacrum. The testing electrode was then hooked up to each of the wire electrodes 0 through 3 and good Hector and toe response is was seen at low amplitude 2.0 amps for 0/1 and 1.3 for leads 3/4. This confirmed the clinically relevant position of the live wire. Under live fluoroscopy the introducer sheath was removed deploying the tines of the wire ensuring that the live wire remained in the previously described position. The tunneling device was then used to bridge the distance between the sacral vertical incision and the desired location of the battery pocket. The live wire was placed through the tunneling device and brought out into the battery pocket. The sacral incision was washed with water. A new battery was connected to the live wire and placed into the subcutaneous pocket. The battery was tested and had positive spanish moss picker and displayed normal impedance on all 4 channels. The battery pocket had been washed with sterile water prior to placement of the battery. Interrupted 3-0 Vicryl sutures were used to close the defect spaces and bring skin edges together. Running 4-0 Monocryl sutures were used to appose skin edges. Incisions were dressed using skin glue followed by Tegaderm dressing. Patient tolerated procedure well was extubated in operating room transferred in stable condition to the recovery area. CPT full device replacement 36114, 13821, 41561, 36395-65
[2024-10-09] MEDS: oxyCODONE HCl Immed Release 5 MG TABLET PO (16:11)
== END 2024-10-09 17:23 | disposition home or self-care (01) ==
PROVIDERS: PCP Internal Medicine; Visit Provider Urology
PROC: (CPT 64590; principal; 2024-10-09 13:10)
DX: N30.10 Interstitial cystitis (chronic) without hematuria (principal); Z96.82 Presence of neurostimulator; I47.10 Supraventricular tachycardia, unspecified; E78.00 Pure hypercholesterolemia, unspecified; J45.909 Unspecified asthma, uncomplicated; Z93.3 Colostomy status; Z79.899 Other long term (current) drug therapy; Z88.1 Allergy status to other antibiotic agents; Z88.8 Allergy status to other drugs, medicaments and biological substances; Z88.6 Allergy status to analgesic agent; Z98.890 Other specified postprocedural states; F17.210 Nicotine dependence, cigarettes, uncomplicated
CPT/HCPCS: 64590; 64561; C1767; C1778; C1787; J0690; J2003; J2250; J2704; J2795; J3010

== ENCOUNTER → 2024-10-09 11:00 | Outpatient (BNV) | payer OTHER, SELFPAY | PROVIDERS: PCP Internal Medicine; Visit Provider Urology | DX: N32.81 Overactive bladder (principal) | CPT/HCPCS: 64561; 64595 ==

== ENCOUNTER 2024-10-17 13:32 | Outpatient (AMB) | payer OTHER, SELFPAY ==
--- NOTE | 2024-10-17 13:32 | A.OFFVIS_ITS ---
Intake Visit Reasons: Interstim Placement, follow up Intake Note: Patient is present for INTERSTIM PLACEMENT F/U Urology Medication:OXYBUTYNIN,OXYCODONE Antibiotic Allergy:AMOXICILLIN Blood Thinner:NONE Customer Insight Analyst Required: No Allergies amoxicillin [From AUGMENTIN] Allergy (Severe, Verified 10/17/24 13:34) SEVERE DIARRHEA Ccownlb-RFP-YtJ Reductase Inhibitor [RMABAHN-ZEE-WGV REDUCTASE INHIBITOR] Allergy (Intermediate, Verified 10/17/24 13:34) muscle aches, cramps acetaminophen [ACETAMINOPHEN] Adverse Reaction (Severe, Verified 10/17/24 13:34) GI upset. Pt confirmed NOT allergic to oxycodone NSAIDS (Non-Steroidal Anti-Inflamma Adverse Reaction (Severe, Verified 10/17/24 13:34) Gastrointestinal Upset oxycodone [From Percocet] Adverse Reaction (Verified 10/17/24 13:34) Gastrointestinal Upset HPI Comments Details: Randi is a pleasant female. She is a patient of Dr. Su. 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 edd Has some stabilization Interested in repeating hydrodistention Interstitial cystitis Patient with interstitial cystitis and bladder pain which responded to therapeutic hydrodistention Last hydrodistention - Apr 2023 Was previously on every 3 month schedule but over the last year had been doing every 2 months Would like to have another cystoscopy - hydrodistention done risks benefits potential complications morbidity mortality reviewed all questions answered informed consent obtained [facility] Medical History Sacral nerve stimulator present Colostomy in place On beta morgan at home Anxiety SVT (supraventricular tachycardia) Depression Back pain History of gastrostomy tube placement Hx of ulcerative colitis Hx of cystitis History of anxiety Asthma Elevated cholesterol Surgical History History of bowel diversion surgery History of tubal ligation History of endometrial ablation History of bladder surgery Social History Household Members: Significant Other Household Members Other:: s.o can stay to help when needed Housing: Apartment Are you a primary intensive care unit registered nurse to a significant other at home: No Do you presently have visiting nurse or other home services: No 75 years or older and lives alone: No Alcohol intake: former Patient Tobacco Use Status: Current everyday Tobacco user Tobacco use type: Cigarette Cigarettes Per Day: 3 Years Smoked: 25 Current occupational status: disabled Review of Systems Const All systems reviewed & are unremarkable except as noted in HPI and below Reports no additional complaints Resp Reports no additional complaints GI Reports no additional complaints Reports as per HPI Musc Reports no additional complaints Physical Exam Telemedicine evaluation Appropriate responses Regular breathing rate and rhythm HEENT Head: Yes normal to inspection Ears: hearing grossly normal bilaterally Eyes General: appearance normal, both eyes and all related structures Neck Neck: Yes normal visual inspection Chest Chest palpation & inspection: normal inspection of the chest Resp Effort & Inspection: normal respiratory effort and able to speak in complete sentences Telehealth Telehealth Location of provider rendering services: practice address Location of patient: address on file Patient Identification confirmed using: Name, : Yes Telehealth method: voice only Patient verbally consented to treatment: Yes Patient verbally consented to billing insurance company: Yes Patient informed of any privacy concerns related to visit: Yes Assessment & Plan Assessment & Plan (1) Interstitial cystitis: Code(s): N30.10 - Interstitial cystitis (chronic) without hematuria Category: Medical (2) Urinary urgency: Code(s): R39.15 - Urgency of urination Category: Medical Plan Risks, benefits and alternatives to therapy were discussed. These include but are not limited to infection, bleeding, damage to local organs and tissues, need for further interventions. Anesthetic risks regarding cardiac arrhythmia, blood clots, and potential mortality were discussed. The patient understands the typical recovery time and the outpatient nature of the procedure. After consideration of these risks the patient gives full informed consent and they wish to move ahead with the procedure. Cystoscopy hydrodistention Patient Instructions: This note is constructed using voice recognition software. While every effort has been made to ensure accuracy industrial workers errors may have been included. Imaging studies, laboratory and physical exam results were discussed and reviewed in detail. No major barriers to patient understanding were identified. An opportunity to ask questions regarding the treatment plan was provided. All questions were answered. The patient expressed understanding and agreement with the above treatment plan. The patient is aware they should contact our office by phone for worsening of their current condition or the appearance of new urologic symptoms. Compliance is encouraged with any medications and followup testing that is ordered. It is a privilege to participate in the urologic care of your patient. If you have any questions or concerns regarding treatment for the above conditions, or other urologic issues, please do not hesitate to contact me. The office telephone contact is [phone]. Sincerely, Dr Mk Cornelius MD, [facility] - Urology Compassionate Specialist Care for the Genitourinary System Coding Level of Care Code Tele Est Pt Level 4 (53356) Diagnoses Interstitial cystitis N30.10 Urinary urgency R39.15
--- OUTSIDE RECORDS SUMMARY | 2024-10-17 14:50 | XMS_ITS | Continuity of Care Document ---
Author Organization [facility] Kevin Sarath lt Address [address] [place] [id number]- Care Team Providers Care Automotive Designer Name Role Phone Sharlene STEWART, Brett Araujo Primary Care Physician [phone] Encounter [facility] Date(s): 09/13/24 - 10/13/24 [facility] [address] [place] [address]- Encounter Type: Triage Allergies, Adverse Reactions, Alerts [...] Given pneumococcal 20-valent conjugate vaccine 01/18/23 Recorded [id number] 12y+ bivalent booster vax 01/27/23 Recorded tetanus-diphtheria toxoids (Td) 07/16/21 Given SARS-CoV-2 mRNA (arsmckr-vajn-aeuyl) vax 07/16/21 Given Influenza Virus Vaccine (oldterm) [...] Given 1Result Comment: [03/08/2017] [facility] 2Location History: [facility] 3Admin Note: [facility] 4Admin Note: per pt rcvd [facility] 5Admin Note: given in clinic 6Admin Note: WING 7Admin Note: clinic ronnie Medications Albuterol (Eqv-ProAir HFA) 90 mcg/inh inhalation aerosol 2 puffs, Inhalation, Every 6 hours, PRN NEEDED FOR WHEEZING, # 8.5 each, 2 Refills, Maintenance,07/28/24 12:20:00 PM EST, [id number], 25, INHALE 2 PUFFS BY MOUTH EVERY [...] Quantity: 1.0 Unit: each Repeat number: 12 cyanocobalamin 1000 mcg oral tablet 1,000 mcg, By Mouth, Daily, # 90 tablet, Refills 0, Tot. Refills 0, Maintenance, 09/19/24 12:50:00 PMEDT, Route to Pharmacy Electronically, [facility], Partial fill upon patient request if the prescription is for a schedule II opioid drug., 165, cm, 09/19/24 11:23:00 EDT, Height, 57.6,kg, 09/15/24 9:31:00 EDT, Dry Weight Start Date: 09/19/24 Stop Date: 12/18/24 Status: Ordered Quantity: 90.0 Unit: tablet Repeat number: 1 cyclobenzaprine 5 mg oral tablet 1 tablet = 5 mg, By Mouth, Daily at bedtime, PRN Spasm, # 30 tablet, 1 Refills, Acute 08/17/25 12:00:00 AM EST, 08/24/24 3:43:00 PM EDT, [facility] #[id number], Partial fill upon patient request if the prescription is for a schedule II opioid drug., 160, cm, 08/24/24 15:06:00 EDT, Height, 57.7, kg, 08/06/24 17:13:00 EST, Dry Weight Start Date: 08/24/24 Stop Date: 08/17/25 Status: Ordered Quantity: 30.0 Unit: tablet Repeat number: 2 ferrous sulfate 325 mg oral enteric coated tablet 325 mg, 1, tablet, By Mouth, Daily, # 30 tablet, Refills 0, Maintenance, 09/15/24 9:44:00 AM EDT, Partial fill upon patient request if the prescription is for a schedule II opioid drug. Start Date: 09/15/24 Status: Ordered Quantity: 30.0 Unit: tablet Repeat number: 1 folic acid 1 mg oral tablet 1 mg, By Mouth, Daily, # 90 tablet, Refills 0, Tot. Refills 0, Maintenance, 09/19/24 12:51:00 PM EDT,Route to Pharm[facility] Electronically[facility], Partial fill upon patient request if the prescription is for a schedule II opioid drug., 165, cm, 09/19/24 11:23:00 EDT, Height, 57.6, kg, 09/15/24 9:31:00 EDT, Dry Weight Start Date: 09/19/24 Stop Date: 12/18/24 Status: Ordered Quantity: 90.0 Unit: tablet Repeat number: 1 Goose neck [...] day, # 90 tablet, 5 Refills, Maintenance, 09/13/24 4:27:00 PM EDT, Tablet, [facility]/pharmacy #[id number], Partial fill upon patient request if the prescription is for a schedule II opioid drug., 165, cm, 09/11/24 21:11:00 EDT, Height, 62.2, kg, 09/11/24 21:11:00 EDT, Dry Weight Start Date: 09/13/24 Status: Ordered Quantity: 90.0 Unit: tablet Repeat number: 6 metoprolol 25 mg oral tablet, extended release 25 mg, By Mouth, Daily, # 90 tablet, Refills 0, Tot. Refills 0, Maintenance, 09/19/24 12:50:00 PM EDT, Route to Pharmacy Electronically[facility], Partial fill upon patient request if the prescription is for a schedule II opioid drug., 165, cm, 09/19/24 11:23:00 EDT, Height, 57.6, kg,09/15/24 9:31:00 EDT, Dry Weight Start Date: 09/19/24 Stop Date: 12/18/24 Status: Ordered Quantity: 90.0 Unit: tablet Repeat number: 1 No sting skin prep spray (Díaz [employer] Nephew) No sting skin prep spray (Díaz [employer]), See Instructions, # 1 each, Refills 11, Tot. Refills 11, Maintenance, Use as needed for ostomy maintaince. Dx ileostomy Z93.2, 08/25/24 4:41:00 PM EDT, Supply Start Date: 08/25/24 Status: Ordered Quantity: 1.0 Unit: each Repeat number: 12 Omeprazole = 20 mg, By Mouth, Daily, 0 Refills, Maintenance, 02/01/24 7:40:00 AM EDT, Partial fill upon patientrequest if the prescription is for a schedule II opioid drug. Start Date: 02/01/24 Status: Ordered Repeat number: 1 oxybutynin 5 mg oral tablet 1 tablet = 5 mg, By Mouth, 3 times a day, 0 Refills, Maintenance, 09/15/24 9:42:00 AM EDT, Partial fill upon patient request if the prescription is for a schedule II opioid drug. Start Date: 09/15/24 Status: Ordered Repeat number: 1 pantoprazole 40 mg oral delayed release tablet 1 tablet = 40 mg, By Mouth, Daily, # 30 tablet, 0 Refills, Maintenance, 09/19/24 12:51:00 PM EDT, EC Tablet, 165, cm, 09/19/24 11:23:00 EDT, Height, 57.6, kg, 09/15/24 9:31:00 EDT, Dry Weight Start Date: 09/19/24 Status: Ordered Quantity: 30.0 Unit: tablet Repeat number: 1 primidone 50 mg oral tablet 50 mg, 1, tablet, By Mouth, 3 times a day, Refills 0, Maintenance, 07/14/24 4:33:00 PM EST, Partial fill upon patient request if the prescription is for a schedule II opioid drug. Start Date: 07/14/24 Status: Ordered Repeat number: 1 traZODone 100 mg oral [...] of cigarettes daily since age 25.. Sex Female Sex Representation Female (finding) Patient Care team information Care Team Personnel Name: Yoselyn Mccormick RN Position: [facility] RN Member Role: Primary Care Nurse Name: Rand Baez RN Position: [facility] RN Member Role: Primary Care Nurse Name: Bethany Soares RN Position: S RN Member Role: Primary Care Nurse Name: Pam Harmon RN Position: S RN Member Role: Primary Care Nurse Name: Graciela Harmon RN Position: [facility] RN Member Role: Primary Care Nurse Name: Stella Ramos RN Position: S RN Member Role: Primary Care Nurse Name: Brett Su MD Position: [facility] Physician - Primary Care Member Role: PCP Address: [address] [place] [id number] Telecom: Name: Vangie Chun RN Position: [facility] RN Member Role: Primary Care Nurse Name: Leidy Gray RN Position: [facility] RN Member Role: Primary Care Nurse Name: Jimbo Boswell RN Position: [facility] SN RN Member Role: Primary Care Nurse Name: James Alvarez RN Position: [facility] RN Member Role: Primary Care Nurse Name: Milena Rios RN Position: [facility] RN Member Role: Primary Care Nurse Name: Rafa Malave RN Position: [facility] RN Member Role: Primary Care Nurse Name: Oralia Ashley RN Position: [facility] RN Member Role: Primary Care Nurse Name: Phyllis Holman RN Position: [facility] RN Member Role: Primary Care Nurse Name: Raya Jewell RN Position: [facility] RN Member Role: Primary Care Nurse Name: Harini Aponte RN Position: [facility] RN Member Role: Primary Care Nurse Name: Dorita Brock RN Position: [facility] ED OA Member Role: Primary Care Nurse Name: Nya Liu RN Position: [facility] RN Member Role: Primary Care Nurse Name: Geri Galvan RN Position: [facility] RN Member Role: Primary Care Nurse Name: Eri Mars RN Position: [facility] RN Member Role: Primary Care Nurse Name: Lula Velasco RN Position: [facility] RN Member Role: Primary Care Nurse Name: Guerline Benavides RN Position: [facility] RN Member Role: Primary Care Nurse Name: Fatimah Galaviz RN Position: [facility] ED RN W/OE and Tasks Member Role: Primary Care Nurse Care Team Related Persons Name: KIAN TAMAYO Name: MARTA LEWIS Name: GUERRERO AGUILAR Name: ITALO CORNEJO Insurance Providers Guarantor name: NICOLAS TAMAYO Health Plan Information #: 1 Payer: [employer] Member Number: NA Policy Number: NA Group Number: NA
--- OUTSIDE RECORDS SUMMARY | 2024-10-17 14:50 | XMS_ITS | Continuity of Care Document ---
Author Organization [facility] Address [address] [place] [address] [address] [place] [address]- Care Team Providers Care Auditor/Quality Name Role Phone Brett Su MD Primary Care Physician Encounter [facility] Date(s): 10/06/24 - 10/13/[address] [place], [place] [address] Attending Physician: Mariana Antonio MD Referring Physician: Brett Su MD Encounter Type: Office Visit Allergies, Adverse Reactions, Alerts Substance Criticality Severity Reaction Reaction Severity Status ibuprofen 1 Diarrhea Nausea Active acetaminophen 2, 3 Unknown Nausea Resolved aspirin stomach problems Active atorvastatin unknown Active Augmentin MOUTH SORES Active Tylenol irritated stomach Active Percocet 7.5/325 Unable to assess criticality Persistent Mild Nausea Active simvastatin Unknown Aching muscles Active 1GI issues 2pt states well I [...] Given pneumococcal 20-valent conjugate vaccine 01/18/23 Recorded [id number] 12y+ bivalent booster vax 01/27/23 Recorded tetanus-diphtheria toxoids (Td) 07/16/21 Given SARS-CoV-2 mRNA (hezrzoe-geta-rimnt) vax 07/16/21 Given Influenza Virus Vaccine (oldterm) [...] Given 1Result Comment: [03/08/2017] [facility] [place] 2Location History: [facility] 3Admin Note: center pharmacy venancio castillo 4Admin Note: per pt rcvd eklsewtroy 5Admin Note: given in clinic 6Admin Note: WING 7Admin Note: clinic ronnie Medications Albuterol (Eqv-ProAir HFA) 90 mcg/inh inhalation aerosol 2 puffs, Inhalation, Every 6 hours, PRN NEEDED FOR WHEEZING, # 8.5 each, 2 Refills, Maintenance,07/28/24 12:20:00 PM EST, [id number], 25, INHALE 2 PUFFS BY MOUTH EVERY [...] 09/19/24 12:50:00 PMEDT, Route to Pharmacy Electronically, [facility], Partial fill upon patient request if [...] 12:00:00 AM EST, 08/24/24 3:43:00 PM EDT, [facility]/pharmacy #[id number], Partial fill upon patient [...] 09/19/24 12:51:00 PM EDT,Route to Pharmacy Electronically, [facility], Partial fill upon patient request if [...] Refills, Maintenance, 09/13/24 4:27:00 PM EDT, Tablet, [facility]/pharmacy #[id number], Partial fill upon patient [...] 12:50:00 PM EDT, Route to Pharmacy Electronically, [facility], Partial fill upon patient request if [...] 4:10:00 PM EDT, Route to Pharmacy Electronically, [facility]/pharmacy #[id number], 163, cm, 03/17/24 15:48:00 [...] Team Personnel Name: Yoselyn Mccormick RN Position: [facility] RN Member Role: Primary Care Nurse Name: Rand Baez RN Position: [facility] RN Member Role: Primary Care Nurse Name: Bethany Soares RN Position: [facility] RN Member Role: Primary Care Nurse Name: Pam Harmon RN Position: [facility] RN Member Role: Primary Care Nurse Name: Graciela Harmon RN Position: [facility] RN Member Role: Primary Care Nurse Name: Stella Ramos RN Position: [facility] RN Member Role: Primary Care Nurse Name: Brett Su MD Position: [facility] Physician - Primary Care Member Role: PCP Address: [address] [place] [address]- Telecom: Name: Vangie Chun RN Position: [facility] RN Member Role: Primary Care Nurse Name: Leidy Gray RN Position: [facility] RN Member Role: Primary Care Nurse Name: Jimbo Boswell RN Position: [facility] SN RN Member Role: Primary Care Nurse Name: James Alvarez RN Position: [facility] RN Member Role: Primary Care Nurse Name: Milena Rios RN Position: [facility] RN Member Role: Primary Care Nurse Name: Rafa Malave RN Position: [facility] RN Member Role: Primary Care Nurse Name: Oralia Ashley RN Position: [facility] RN Member Role: Primary Care Nurse Name: Phyllis Holman RN Position: [facility] RN Member Role: Primary Care Nurse Name: Raya Jewell RN Position: [facility] RN Member Role: Primary Care Nurse Name: Harini Aponte RN Position: [facility] RN Member Role: Primary Care Nurse Name: Dorita Brock RN Position: [facility] ED OA Member Role: Primary Care Nurse Name: Nya Liu RN Position: [facility] RN Member Role: Primary Care Nurse Name: Geri Galvan RN Position: [facility] RN Member Role: Primary Care Nurse Name: Eri Mars RN Position: [facility] RN Member Role: Primary Care Nurse Name: Lula Velasco RN Position: [facility] RN Member Role: Primary Care Nurse Name: Guerline Benavides RN Position: [facility] RN Member Role: Primary Care Nurse Name: Fatimah Galaviz RN Position: [facility] ED RN W/OE and Tasks Member Role: Primary Care Nurse Care Team Related Persons Name: ALLYN TAMAYOTHIA Name: MARTA LEWIS Name: GUERRERO AGUILAR Name: ITALO CORNEJO Insurance Providers Guarantor name: NICOLAS TAMAYO Health Plan Information #: 1 Payer: [employer] Member Number: [id number] Policy Number: NA Group Number: [facility] Health Plan Information #: 2 Payer: [employer] Member Number: [id number] Policy Number: NA Group Number: NA
--- OUTSIDE RECORDS SUMMARY | 2024-10-17 14:50 | XMS_ITS | Continuity of Care Document ---
Author Organization [facility] Address [address] [place] [address]- Care Team Providers Care Goal Umpire Name Role Phone Brett Su MD Primary Care Physician Encounter [facility] Date(s): 10/16/24 - 10/16/[address] [address]- Encounter Diagnosis Colostomy care(Final) - 10/16/24 Discharge Disposition: A-D/C Home Attending Physician: Asad Tyson MD Admitting Physician: Asad Tyson MD Referring Physician: Not on Staff, Referring [...] Given pneumococcal 20-valent conjugate vaccine 01/18/23 Recorded [id number] 12y+ bivalent booster vax 01/27/23 Recorded tetanus-diphtheria toxoids (Td) 07/16/21 Given SARS-CoV-2 mRNA (msingwx-fuqf-ibwcw) vax 07/16/21 Given Influenza Virus Vaccine (oldterm) [...] Given 1Result Comment: [03/08/2017] [facility] [place] 2Location History: [facility] 3Admin Note: center pharmacy [facility]io [place] 4Admin Note: per pt rcvd [facility] 5Admin Note: given in clinic 6Admin Note: WING 7Admin Note: clinic ronnie Medications Albuterol (Eqv-ProAir HFA) 90 mcg/inh inhalation aerosol 2 puffs, Inhalation, Every 6 hours, PRN NEEDED FOR WHEEZING, # 8.5 each, 2 Refills, Maintenance,07/28/24 12:20:00 PM EST, [facility] STORE [id number], 25, INHALE 2 PUFFS BY MOUTH EVERY [...] 09/19/24 12:50:00 PMEDT, Route to Pharmacy Electronically, [facility], Partial fill upon patient request [...] 12:00:00 AM EST, 08/24/24 3:43:00 PM EDT, [facility]/pharmacy #1230, Partial fill upon patient [...] 09/19/24 12:51:00 PM EDT,Route to Pharmacy Electronically, [facility], Partial fill upon patient request if [...] Refills, Maintenance, 09/13/24 4:27:00 PM EDT, Tablet, [facility]/pharmacy #1230, Partial fill upon patient [...] 12:50:00 PM EDT, Route to Pharmacy Electronically, [facility], Partial fill upon patient request [...] 4:10:00 PM EDT, Route to Pharmacy Electronically, [facility]/pharmacy #1230, 163, cm, 03/17/24 15:48:00 [...] [Reference Range]: 1 2 Height 165 cm (10/16/24 5:32 PM) 165 cm (10/16/24 3:16 PM) Weight 59.1 kg (10/16/24 5:32 PM) 59.1 kg (10/16/24 3:16 PM) Oxygen Saturation [94-100 %] 100 % (10/16/24 5:32 PM) 100 % (10/16/24 3:16 PM) Pulse Rate [55-90 bpm] 83 bpm (10/16/24 5:32 PM) 94 bpm *H* (10/16/24 3:16 PM) Body Mass Index [18.5-24.99 kg/m2] 21.71 kg/m2 (10/16/24 5:32 PM) Blood Pressure [90-138/55-84 mm Hg] 127/ 70mm Hg (10/16/24 5:32 PM) 123/75mm Hg (10/16/24 3:16 PM) Respiratory Rate [16-30 br/min] 20 br/mi n (10/16/24 5:32 PM) 17 br/min (10/16/24 3:16 PM) Temperature [96.8-100.4 DegF] 98.4 DegF (10/16/24:32 PM) 98.4 DegF (10/16/24 3:16 PM) Mode of Delivery (Oxygen) Room air (10/16/24 5:32 PM) Room air (10/16/24 3:16 PM) Blood pressure sites Arm, left (10/16/24:32 PM) Temperature Route Oral (10/16/24:32 PM) Temporal (10/16/24 3:16 PM) Dry Weight 59.1 kg (10/16/24:32 PM) 59.1 kg (10/16/24 3:16 PM) Weight Obtained Via Standing scale (10/16/24 3:16 PM) Social History Social History Type Response Tobacco Use: 4 or less cigar ettes(less than 1/4 pack)/day in last 30 days. Other: Half a pack of cigarettes daily since age 25.. Sex Female Sex Representation Female (finding) Note * Claritza Yeh: PERFORM, SIGN, VERIFY Event Display: Patient Education Handout Authored Date: Patient Care team information Care Team Personnel Name: Yoselyn Mccormick RN Position: [facility] RN Member Role: Primary Care Nurse Name: Rand Baez RN Position: [facility] RN Member Role: Primary Care Nurse Name: Bethany Soares RN Position: S RN Member Role: Primary Care Nurse Name: Pam Harmon RN Position: S RN Member Role: Primary Care Nurse Name: Graciela Harmon RN Position: S RN Member Role: Primary Care Nurse Name: Stella Ramos RN Position: S RN Member Role: Primary Care Nurse Name: Brett Su MD Position: [facility] Physician - Primary Care Member Role: PCP Address: [address] [place] [address]- [place] Telecom: Name: Vangie Chun RN Position: [facility] RN Member Role: Primary Care Nurse Name: Leidy Gray RN Position: S RN Member Role: Primary Care Nurse Name: Jimbo Boswell RN Position: [facility] SN RN Member Role: Primary Care Nurse Name: James Alvarez RN Position: [facility] RN Member Role: Primary Care Nurse Name: Milena Rios RN Position: [facility] RN Member Role: Primary Care Nurse Name: Oralia Ashley RN Position: [facility] RN Member Role: Primary Care Nurse Name: Phyllis Holman RN Position: [facility] RN Member Role: Primary Care Nurse Name: Raya Jewell RN Position: [facility] RN Member Role: Primary Care Nurse Name: Harini Aponte RN Position: [facility] RN Member Role: Primary Care Nurse Name: Dorita Brock RN Position: [facility] ED OA Member Role: Primary Care Nurse Name: Nya Liu RN Position: [facility] RN Member Role: Primary Care Nurse Name: Geri Galvan RN Position: [facility] RN Member Role: Primary Care Nurse Name: Eri Mars RN Position: [facility] RN Member Role: Primary Care Nurse Name: Lula Velasco RN Position: [facility] RN Member Role: Primary Care Nurse Name: Guerline Benavides RN Position: [facility] RN Member Role: Primary Care Nurse Name: Fatimah Galaviz RN Position: [facility] ED RN W/OE and Tasks Member Role: Primary Care Nurse Care Team Related Persons Name: KIAN TAMAYO Name: MARTA LEWIS Name: GUERRERO AGUILAR Name: ITALO CORNEJO Insurance Providers Guarantor name: NICOLAS TAMAYO Health Plan Information #: 1 Payer: [employer] Member Number: [id number] Policy Number: NA Group Number: [facility] Health Plan Information #: 2 Payer: [employer] Member Number: [id number] Policy Number: NA Group Number: NA
--- OUTSIDE RECORDS SUMMARY | 2024-10-17 14:52 | XMS_ITS | Continuity of Care Document ---
Author Organization [facility] Address [address] [place] [address]- Care Team Providers Care Script Writer Name Role Phone Sharlene STEWART, Brett Araujo Primary Care Physician Encounter [facility] Date(s): 09/12/24 - 10/15/[address] [address] Attending Physician: Kings STEWART, Tristen Ramirez Admitting Physician: Tristen Ku MD Referring Physician: Tristen Ku MD Encounter Type: Pre-Outpt Allergies, Adverse Reactions, [...] Given pneumococcal 20-valent conjugate vaccine 01/18/23 Recorded [id number] 12y+ bivalent booster vax 01/27/23 Recorded tetanus-diphtheria toxoids (Td) 07/16/21 Given SARS-CoV-2 mRNA (lgalieq-kscf-vpkwn) vax 07/16/21 Given Influenza Virus Vaccine (oldterm) [...] Given 1Result Comment: [03/08/2017] [facility] [place] 2Location History: [facility] 3Admin Note: center pharmacy ven[facility]io castillo 4Admin Note: per pt rcvd [facility] 5Admin Note: given in clinic 6Admin Note: WING 7Admin Note: clinic ronnie Medications Albuterol (Eqv-ProAir HFA) 90 mcg/inh inhalation aerosol 2 puffs, Inhalation, Every 6 hours, PRN NEEDED FOR WHEEZING, # 8.5 each, 2 Refills, Maintenance,07/28/24 12:20:00 PM EST, [facility]ORE [id number], 25, INHALE 2 PUFFS BY MOUTH EVERY [...] 09/19/24 12:50:00 PMEDT, Route to Pharmacy Electronically, [facility], Partial fill upon [...] 12:00:00 AM EST, 08/24/24 3:43:00 PM EDT, [facility]/pharmacy #1230, Partial fill upon patient [...] 09/19/24 12:51:00 PM EDT,Route to Pharmacy Electronically, [facility], Partial fill upon patient request if [...] Refills, Maintenance, 09/13/24 4:27:00 PM EDT, Tablet, [facility]/pharmacy #1230, Partial fill upon patient [...] 12:50:00 PM EDT, Route to Pharmacy Electronically, [facility], Partial fill upon [...] 4:10:00 PM EDT, Route to Pharmacy Electronically, [facility]/pharmacy #1230, 163, cm, 03/17/24 15:48:00 [...] Member Role: Primary Care Nurse Name: Bethany Soaers RN Position: S RN Member Role: Primary Care Nurse Name: Pam Harmon RN Position: S RN Member Role: Primary Care Nurse Name: Graciela Harmon RN Position: S RN Member Role: Primary Care Nurse Name: Stella Ramos RN Position: S RN Member Role: Primary Care Nurse Name: Brett Su MD Position: [facility] Physician - Primary Care Member Role: PCP Address: [address] [place] [address]- Telecom: Name: Vangie Chun RN Position: [facility] RN Member Role: Primary Care Nurse Name: eLidy Gray RN Position: [facility] RN Member Role: Primary Care Nurse Name: Jimbo Boswell RN Position: [facility] SN RN Member Role: Primary Care Nurse Name: James Alvarez RN Position: [facility] RN Member Role: Primary Care Nurse Name: Milena Rios RN Position: [facility] RN Member Role: Primary Care Nurse Name: Rafa Malave RN Position: [facility] RN Member Role: Primary Care Nurse Name: Oralia Ashley RN Position: [facility] RN Member Role: Primary Care Nurse Name: Phyllis Holman RN Position: [facility] RN Member Role: Primary Care Nurse Name: Raya Jewell RN Position: [facility] RN Member Role: Primary Care Nurse Name: Harini Aponte RN Position: [facility] RN Member Role: Primary Care Nurse Name: Dorita Brock RN Position: [facility] ED OA Member Role: Primary Care Nurse Name: Nya Liu RN Position: [facility] RN Member Role: Primary Care Nurse Name: Geri Galvan RN Position: [facility] RN Member Role: Primary Care Nurse Name: Eri Mars RN Position: [facility] RN Member Role: Primary Care Nurse Name: Lula Velasco RN Position: [facility] RN Member Role: Primary Care Nurse Name: Guerline Benavides RN Position: [facility] RN Member Role: Primary Care Nurse Name: Fatimah Galaviz RN Position: [facility] ED RN W/OE and Tasks Member Role: Primary Care Nurse Care Team Related Persons Name: KIAN TAMAYO Name: MARTA LEWIS Name: GUERRERO AGUILAR Name: ITALO CORNEJO Insurance Providers Guarantor name: NICOLAS SHIVALILY Health Plan Information #: 1 [facility] [facility] Member Number: [id number] Policy Number: NA Group Number: [facility] Health Plan Information #: 2 [facility] Member Number: [id number] Policy Number: NA Group Number: NA
--- OUTSIDE RECORDS SUMMARY | 2024-10-17 14:52 | XMS_ITS | Continuity of Care Document ---
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 Name Role Phone Sharlene STEWART, Brett Araujo Primary Care Physician [phone] Encounter [facility] Date(s): 09/14/24 - 10/14/24 [facility] [address] [place] [address]- Encounter Type: Triage Allergies, Adverse Reactions, Alerts [...] Given pneumococcal 20-valent conjugate vaccine 01/18/23 Recorded [id number]-[id number] 12y+ bivalent booster vax 01/27/23 Recorded tetanus-diphtheria toxoids (Td) 07/16/21 Given SARS-CoV-2 mRNA (phuuknu-szkw-lmazs) vax 07/16/21 Given Influenza Virus Vaccine (oldterm) [...] Given 1Result Comment: [03/08/2017] [facility] [place] 2Location History: [facility] 3Admin Note: [facility] 4Admin Note: per pt rcvd [facility]where 5Admin Note: given in clinic 6Admin Note: WING 7Admin Note: clinic ronnie Medications Albuterol (Eqv-ProAir HFA) 90 mcg/inh inhalation aerosol 2 puffs, Inhalation, Every 6 hours, PRN NEEDED FOR WHEEZING, # 8.5 each, 2 Refills, Maintenance,07/28/24 12:20:00 PM EST, [facility] 53085, 25, INHALE 2 PUFFS BY MOUTH EVERY [...] 09/19/24 12:50:00 PMEDT, Route to Pharmacy Electronically, [facility], Partial fill upon patient [...] 12:00:00 AM EST, 08/24/24 3:43:00 PM EDT, [facility]/pharmacy #1230, Partial fill upon patient request [...] 09/19/24 12:51:00 PM EDT,Route to Pharmacy Electronically, [facility], Partial fill upon patient request [...] Refills, Maintenance, 09/13/24 4:27:00 PM EDT, Tablet, [facility]/pharmacy #1230, Partial fill upon patient request [...] 12:50:00 PM EDT, Route to Pharmacy Electronically, [facility], Partial fill upon patient request [...] 4:10:00 PM EDT, Route to Pharmacy Electronically, [facility]/pharmacy #1230, 163, cm, 03/17/24 15:48:00 EDT, [...] Team Personnel Name: Yoselyn Mccormick RN Position: [facility] RN Member Role: Primary Care Nurse Name: Rand Baez RN Position: [facility] RN Member Role: Primary Care Nurse Name: Bethany Soares RN Position: S RN Member Role: Primary Care Nurse Name: Pam Harmon RN Position: [facility] RN Member Role: Primary Care Nurse Name: Graciela Harmon RN Position: S RN Member Role: Primary Care Nurse Name: Stella Ramos RN Position: S RN Member Role: Primary Care Nurse Name: Brett Su MD Position: [facility] Physician - Primary Care Member Role: PCP Address: [address] [place] [address]- Telecom: Name: Vangie Chun RN Position: [facility] RN Member Role: Primary Care Nurse Name: Leidy Gray RN Position: [facility] RN Member Role: Primary Care Nurse Name: Jimbo Boswell RN Position: [facility] SN RN Member Role: Primary Care Nurse Name: James Alvarez RN Position: [facility] RN Member Role: Primary Care Nurse Name: Milena Rios RN Position: [facility] RN Member Role: Primary Care Nurse Name: Rafa Malave RN Position: [facility] RN Member Role: Primary Care Nurse Name: Oralia Ashley RN Position: [facility] RN Member Role: Primary Care Nurse Name: Phyllis Holman RN Position: [facility] RN Member Role: Primary Care Nurse Name: Raya Jewell RN Position: [facility] RN Member Role: Primary Care Nurse Name: Harini Aponte RN Position: [facility] RN Member Role: Primary Care Nurse Name: Dorita Brock RN Position: [facility] ED OA Member Role: Primary Care Nurse Name: Nya Liu RN Position: [facility] RN Member Role: Primary Care Nurse Name: Geri Galvan RN Position: [facility] RN Member Role: Primary Care Nurse Name: Eri Mars RN Position: [facility] RN Member Role: Primary Care Nurse Name: Lula Velasco RN Position: [facility] RN Member Role: Primary Care Nurse Name: Guerline Benavides RN Position: [facility] RN Member Role: Primary Care Nurse Name: Fatimah Galaviz RN Position: [facility] ED RN W/OE and Tasks Member Role: Primary Care Nurse Care Team Related Persons Name: KIAN TAMAYO Name: MARTA LEWIS Name: GUERRERO AGUILAR Name: ITALO CORNEJO Insurance Providers Guarantor name: [facility] Health Plan Information #: 1 Payer: [facility] [employer] C[employer] Member Number: NA Policy Number: NA Group Number: NA
--- OUTSIDE RECORDS SUMMARY | 2024-10-17 14:52 | XMS_ITS | Continuity of Care Document ---
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 Cylinder Machine Operator Pulp Drier Name Role Phone Brett Su MD Primary Care Physician [phone] Encounter [facility] Date(s): 10/16/24 - 10/16/[address] [address]- Discharge Disposition: A-D/C Home Attending Physician: Dilan Wyman DO Admitting Physician: [...] Given pneumococcal 20-valent conjugate vaccine 01/18/23 Recorded [id number]-[id number] 12y+ bivalent booster vax 01/27/23 Recorded tetanus-diphtheria toxoids (Td) 07/16/21 Given SARS-CoV-2 mRNA (vopujwa-szuw-yldnm) vax 07/16/21 Given Influenza Virus Vaccine (oldterm) [...] Given 1Result Comment: [03/08/2017] [facility] [place] 2Location History: [facility] 3Admin Note: center pharmacy venancio castillo 4Admin Note: per pt [facility]cvd [facility] 5Admin Note: given in clinic 6Admin Note: WING 7Admin Note: clinic ronnie Medications Albuterol (Eqv-ProAir HFA) 90 mcg/inh inhalation aerosol 2 puffs, Inhalation, Every 6 hours, PRN NEEDED FOR WHEEZING, # 8.5 each, 2 Refills, Maintenance,07/28/24 12:20:00 PM EST, [id number], 25, INHALE 2 PUFFS BY MOUTH EVERY [...] Route to Pharmacy Electronically, [facility], Partial fill upon patient request [...] 12:00:00 AM EST, 08/24/24 3:43:00 PM EDT, [facility]/pharmacy #[id number], Partial fill upon patient request [...] EDT,Route to Pharmacy Electronically, [facility], Partial fill upon patient request [...] Refills, Maintenance, 09/13/24 4:27:00 PM EDT, Tablet, [facility]/pharmacy #[id number], Partial fill upon patient request [...] Route to Pharmacy Electronically, [facility], Partial fill upon patient request [...] 4:10:00 PM EDT, Route to Pharmacy Electronically, [facility]/pharmacy #[id number], 163, cm, 03/17/24 15:48:00 EDT, [...] oldest [Reference Range]: 1 Height 165 cm (10/16/24 7:15 AM) Weight 57.6 kg (10/16/24 7:15 AM) Oxygen Saturation [94-100 %] 99 % (10/16/24 7:15 AM) Pulse Rate [55-90 bpm] 87 bpm (10/16/24 7:15 AM) Blood Pressure [90-138/55-84 mm Hg] 115/ 60mm Hg (10/16/24 7:15 AM) Respiratory Rate [16-30 br/min] 17 br/mi n (10/16/24 7:15 AM) Temperature [96.8-100.4 DegF] 97.6 DegF (10/16/24 7:15 AM) Mode of Delivery (Oxygen) Room air (10/16/24 7:15 AM) Temperature Route Temporal (10/16/24 7:15 AM) Dry Weight 57.6 kg (10/16/24 7:15 AM) Weight Obtained Via Standing scale (10/16/24 7:15 AM) Social History Social History Type Response Tobacco Use: 4 or less cigar ettes(less than 1/4 pack)/day in last 30 days. Other: Half a pack of cigarettes daily since age 25.. Sex Female Sex Representation Female (finding) Note * Polina Donato: PERFORM, SIGN, VERIFY Event Display: Patient Education Handout Authored Date: [id number] Patient Care team information Care Team Personnel Name: Yoselyn Mccormick RN Position: [facility] RN Member Role: Primary Care Nurse Name: Rand Baez RN Position: [facility] RN Member Role: Primary Care Nurse Name: Bethany Soares RN Position: [facility] RN Member Role: Primary Care Nurse Name: Pam Harmon RN Position: [facility] RN Member Role: Primary Care Nurse Name: Graciela Harmon RN Position: [facility] RN Member Role: Primary Care Nurse Name: Stella Ramos RN Position: [facility] RN Member Role: Primary Care Nurse Name: Brett Su MD Position: [facility] Physician - Primary Care Member Role: PCP Address: [address] [place], [place] [id number] Telecom: Name: Vangie Chun RN Position: [facility] RN Member Role: Primary Care Nurse Name: Leidy Gray RN Position: [facility] RN Member Role: Primary Care Nurse Name: Jimbo Boswell RN Position: [facility] SN RN Member Role: Primary Care Nurse Name: James Alvarez RN Position: [facility] RN Member Role: Primary Care Nurse Name: Milena Rios RN Position: S RN Member Role: Primary Care Nurse Name: Oralia Ashley RN Position: S RN Member Role: Primary Care Nurse Name: Phyllis Holman RN Position: S RN Member Role: Primary Care Nurse Name: Raya Jewell RN Position: S RN Member Role: Primary Care Nurse Name: Harini Aponte RN Position: S RN Member Role: Primary Care Nurse Name: Dorita Brock RN Position: [facility] ED OA Member Role: Primary Care Nurse Name: Nya Liu RN Position: [facility] RN Member Role: Primary Care Nurse Name: Geri Galvan RN Position: [facility] RN Member Role: Primary Care Nurse Name: Eri Mars RN Position: [facility] RN Member Role: Primary Care Nurse Name: Lula Velasco RN Position: [facility] RN Member Role: Primary Care Nurse Name: Guerline Benavides RN Position: [facility] RN Member Role: Primary Care Nurse Name: Fatimah Galaviz RN Position: [facility] ED RN W/OE and Tasks Member Role: Primary Care Nurse Care Team Related Persons Name: KIAN TAMAYO Name: MARTA LEWIS Name: GUERRERO AGUILAR Name: ITALO CORNEJO Insurance Providers Guarantor name: NICOLAS TAMAYO Health Plan Information #: 1 Payer: [employer] Member Number: [id number] Policy Number: NA Group Number: [facility] Health Plan Information #: 2 Payer: [employer] Member Number: [id number] Policy Number: NA Group Number: NA
--- OUTSIDE RECORDS SUMMARY | 2024-10-17 14:52 | XMS_ITS | Data Portability ---
Author Organization [employer] [employer] Address [address] [place] [address] Care Team Providers Care Master Naval Parachutist Name Role Phone ELVI LAWANDA ADULT MEDICINE Referring Provider HIM [facility] OTHER Assessment Encounter Date Assessment Date Assessment LastModified by Organization Details LastModified Time 07/30/2023 07/30/2023 I provided real -time medical direction via phone for this encounter, and was available for additional phone based assistance as needed. I have reviewed and agree with the Assessment and Plan as documented by the Semiconductor Wafer Inspector. Patient given the opportunity to ask questions. As per above, service called for bladder pain and found this 58 riki with chronic interstitial cystitis c/b suprapubic pain. C/o 4d suprapubic sharp pain that is throbbing, knife-like and c/w prior episodes. She is soon to have hydroextension procedure. Last ketorlac > 1 wk prior. Regular PO food and fluid intake. Per ship steward on the scene, VSS and she is [...] assessment and plan as documented by the ship steward and would add/emphasize: Patient seen for acute [...] ketorolac 30 mg/mL injection solution 2023 024 [email or web address] [facility], [address] [place], [address], 4 19:46:11 ondansetr on HCl (PF) 4 mg/2 mL injection solution 2023 024 [facility], [address] [place], [address], 4 18:50:03 ketorolac 30 mg/mL injection solution 2023 024 [facility], [address] [place], [address], 4 18:50:03 Zofran 4 mg tablet 2023 024 SANDRA [facility], [address] [place], [address], 4 21:22:51 ketorolac 30 mg/mL injection solution 2023 024 [email or web address] [facility], [address] [place], [address], 4 21:23:56 ketorolac 30 mg/mL injection solution 2023 Adilene mayra [facility], [address] [facility], [place], [address], 4 22:56:59 Patient TargetsNo targets recorded. Patient [...] n nausea Not available Not available 08/12/2022 02235 3 RxNorm Lula Camacho MD [address] [place] [address],[address], [place], [address], [employer] 3 16:51:49 1995 Augmentin medicatio n Not available Not available Not available 08/12/2022 10202 2 RxNorm got mouth sores Lula Camacho MD [address] [place] [address],[address], [place], [address], [employer] 3 16:52:05 1996 acetamino phen medicatio n Not available Not available Not available 08/12/2022 161 RxNorm Not Available [facility] - production 4 03:45:01 1997 simvastat in medicatio n Not available Not available Not available 08/12/2022 83375 RxNorm Lula Camacho MD [address] [place] [address],[address], [place], [address], [employer] 3 16:52:28 Medications Name Sig Start Date [...] Details Last Updated DateTime 4 98.4 [degF] 65596.5 12 g 98 % 98 % 18 /min 90 /min 104 mm[Hg] 64 mm[Hg] Not Available [facility] 4 21:02:10 Date Recorded Respiratory rate Body weight Oxygen saturation Oxygen saturation in Arterial blood by Pulse oximetry Body temperature Body height Heart rate Systolic blood pressure Diastolic blood pressure Systolic blood pressure Diastolic blood pressure Provider Name and Address Organization Details Last Updated DateTime 4 14 /min 33248.9 6 g 76 % 76 % 98.5 [degF] 165.1 cm 74 /min 98 mm[Hg] 64 mm[Hg] 95 mm[Hg] 56 mm[Hg] Not Available [facility] 4 20:24:53 Date Recorded Oxygen saturation Oxygen saturation in Arterial blood by Pulse oximetry Respiratory rate Heart rate Body temperature Systolic blood pressure Diastolic blood pressure Provider Name and Address Organization Details Last Updated DateTime 4 97 % 97 % 16 /min 80 /min 98.1 [degF] 110 mm[Hg] 64 mm[Hg] Not Available [facility] 4 19:12:03 Date Recorded Body temperature Respiratory rate Oxygen saturation Oxygen saturation in Arterial blood by Pulse oximetry Heart rate Systolic blood pressure Diastolic blood pressure Provider Name and Address Organization Details Last Updated DateTime 4 98.4 [degF] 16 /min 98 % 98 % 86 /min 100 mm[Hg] 68 mm[Hg] Not Available [facility] 4 16:25:08 Date Recorded Respiratory rate Heart rate Oxygen saturation Oxygen saturation in Arterial blood by Pulse oximetry Body temperature Systolic blood pressure Diastolic blood pressure Provider Name and Address Organization Details Last Updated DateTime 4 16 /min 88 /min 96 % 96 % 96 [degF] 97 mm[Hg] 63 mm[Hg] Not Available [facility] 4 17:24:48 Social History None recorded. Functional [...] [id number] Tha Pierson MD Main - [facility] [address] [place] [phone] 03/24/2022 17:56:02 04/01/2022 18:48:22 Abdominal pain 02904999 R10.9 4587 Amaury Kent MD Main - [facility] [address] [place] [address] 03/26/2022 17:40:48 03/30/2022 12:00:01 Abdominal pain 44303937 R10.9 No red flag signs or kidney problems. Will give Toradol 15mg IM x1 [id number] Jordan Chapman MD Main - [facility] [address] [place] [address] 04/02/2022 17:07:08 04/03/2022 15:18:36 Urinary bladder pain 27129329 R39.82 Patient with exacerbati on of chronic abdominal pain which is attributed to interstiti al cystitis. She is planned for a surgical procedure for this soon. She got relief from toradol at a recent [facility] visit for same symptoms. No history of GI bleeding or chronic kidney disease.Rx toradol IM 15mg x1 [id number] Nelly Pérez MD Main - [facility] [address] [place] [phone] 04/08/2022 14:02:49 04/14/2022 16:18:59 Chronic interstitial cystitis [id number] N30.10 57 year old female, being evaluated for chronic bladder pain. Per data gathered by ship steward, patient with chronic bladder pain without dysuria, scheduled for a surgical procedure next week. Her symptoms are at baseline, and she is tolerating PO. Her exam is notable for normal vital signs. Cannot take PO NSAIDS, however recalls IM toradol helpful in the past - dose given again today. FU PCP as needed. 5214 Nelly P[facility]rez MD [facility] [address] [place] [address] 04/22/2022 17:19:46 04/23/2022 11:41:13 Pain in right foot [id number] 52383 M79.671 57 year old female being evaluated [...] 5464 Kylee Hill MD Main - [facility] [address] [place] [address] 05/03/2022 16:25:00 05/05/2022 09:08:24 Pain in left foot [id number] 22237 M79.672 57 yo F w/ known metatarsal [...] 8142 Lula Camacho MD Main - [facility] [address] [place] [phone] 08/12/2022 15:46:28 08/14/2022 09:39:18 Candidiasis of skin 14231936 B37.2 likely cause of rash Increased frequency of urination 689970102 R35.0 PAT NOT clinically dehydrated -not hyperglyce opal -states has hx non infectious cystitis- has appt w/ urology 09/07- requesting ketorolac for pain- has no hx CKD/ has tolerated 30 mg IM before( previous [facility] visits)- get GI upset w/ nsaids [...] 8250 Derik Bingham MD Main - [facility] [address] [place] [address] 08/17/2022 11:11:00 08/19/2022 09:27:13 Chronic interstitial cystitis [id number] N30.10 Localized eruption of skin 385879514 R21 8622 Kylee Hill MD Main - [facility] [address] [place] [address] 08/28/2022 22:03:08 08/31/2022 11:13:17 Chronic interstitial cystitis 699210232 N30.10 long standing diagnosis c/b chronic pain. Recieves toradol occasional ly with good effect. No fevers/chi lls/hematu sofi. Will administer 30mg toradol, but advised pt to discuss timing of additional NSAIDs with surgical team as she is planned for surgery in 10d. will also prescribe 4d zofran for intermitte nt chornic nausea associated to chronic cystitis. Qtc<500. Of note, prescripti on called into [facility] over the phone / EMR malnctio n 9933 Angie Amador MD Main - [facility] [address] [place] [phone] 10/11/2022 16:10:03 10/12/2022 10:16:13 Abdominal pain 77114503 R10.9 Chronic low back pain 27 5188872 M54.50 Pain 29498114 R52 [id number] Derik Bingham MD Main - [facility] [address] [place] [address] 0 10/16/2022 17:37:00 10/19/2022 09:55:32 Right upper quadrant pain 256642203 R10.11 79069 Jareth David MD Main - [facility] [address] [place] [address] 0 10/29/2022 17:40:14 10/30/2022 08:56:05 Generalized abdominal pain 430551071 R10.84 This 57-year-ol d female had a [...] PCP. The patient agreed with this plan. 97577 Amaury Kent MD Main - [facility] [address] [place] [phone] 10/31/2022 15:42:54 11/03/2022 13:02:01 Generalized abdominal pain 748545742 R10.84 Generalize d abdominal pain similar to prior episodes. Mild nausea and sxs of dehydratio n, poor fluid intake. Had normal BMP on prior visit. Tolerated IVF, Zofran, Toradol in the past. No red flag signs. Will reorder. 89914 Leander Rosa MD Main - [facility] [address] [place] [phone] 11/04/2022 14:24:04 11/06/2022 13:41:01 Abdominal pain 46449118 R10.9 [id number] Kylee Hill MD Main - [facility] [address] [place] [address] 11/15/2022 15:34:46 11/25/2022 10:16:27 Chronic interstitial cystitis 773182092 N30.10 case supervised and discussed with ship steward. Patient was given opportunit y to ask questions, warning signs/symp toms of pertinent medical emergency reviewed. long standing diagnosis c/b chronic pain. Recieves toradol occasional ly with good effect. No fevers/chi lls/hematu sofi. Will administer 30mg toradol [id number] Latosha Pressley MD Main - [facility] [address] [place] [phone] 11/23/2022 20:46:17 11/24/2022 10:07:44 Chronic interstitial cystitis [id number] N30.10 [id number] Amaury Kent MD Main - [facility] [address] [place] [address] 11/28/2022 16:57:59 11/28/2022 23:15:41 Chronic interstitial cystitis 086690631 N30.10 Has upcoming cystocscop y, amenable to 30mg IM Toradol now Pain 98323621 R52 [id number] Jareth David MD Main - [facility] [address] [place] [address] 12/13/2022 16:50:19 12/14/2022 10:41:58 Essential tremor 276825965 G25.0 This 57-year-ol d female with a history of ulcerative colitis and a resting tremor called [facility] because she thought she might be dehydrated . At the visit her hydration status looked good and her oral intake was adequate. She was advised to follow-up with her PCP. The patient agreed with this plan. [id number] Lula Camacho MD Main - [facility] [address] [place] [address] 02/22/2023 18:33:03 02/23/2023 08:59:17 Abdominal pain 32725731 R10.9 Agree flare of interstiti al cystitis/p atevans has appointmen t to talk to her urologist in 48 hours/but not in person-adv ised since she has not had ketorolac in a while and her H & H are stable-we will give her a dose, however I advised she could develop a reaction to parenteral ketorolac similar to ibuprofen- she verbalized understand ing Hypokalemia [id number] E87 .6 Unsure of etiology since the [...] and tomorrow - she verbalized she would [id number] Lula Camacho MD Main - [facility] [address] [place] [phone] 02/24/2023 11:00:53 02/24/2023 12:04:06 Hypokalemia 01733579 E87.6 Unsure of etiology since the patient denies nausea/ vomiting /diarrhea or excessive urine output/ now resolved with po K//lactate is slightly high but these new machines have been reading mildly high on everyone I have taken care of in the past week-doubt significan t given stable exam and vital signs and the fact that she is afebrile. [id number] Amaury Kent MD Main - [facility] [address] [place] [address] 04/15/2023 15:37:09 04/16/2023 12:56:31 Abdominal pain 43598773 R10.9 Acute on chronic. Normal vital signs. No red flag signs or kidney problems. Will give Toradol 30mg IM x1. Discussed red flag signs for which to seek higher level of care. [id number] Sofiya Frye MD Main - [facility] [address] [place] [phone] 0 04/27/2023 21:55:53 04/28/2023 10:39:48 Chronic pain 86794763 G89.29 [id number] Corrie Pryor MD Main - [facility] [address] [place] [address]981 0 05/01/2023 12:37:10 05/02/2023 15:48:01 Chronic interstitial cystitis 616494501 N30.10 Evaluation in the field was performed by my ship steward colleague, as noted above, I provided real-time [...] shortness of breath, cough, chest pain, fever. 42635 Nelly Pérez MD Main - [facility] [address] [place] [address] 0 05/10/2023 15:45:31 05/10/2023 22:56:22 Abdominal pain 81555888 R10.9 58 year old female with a [...] assessment and plan as documented by the ship steward. I provided real-time medical direction for this encounter and was immediatel y available to provide additional phone-base d assistance as needed. We discussed the diagnostic uncertaint y of home visits and associated risks. We discussed the need to seek care urgently/e mergently in the setting of any new or worsening symptoms. 78258 Jareth David MD Main - [facility] [address] [place] [phone] 0 05/18/2023 14:57:58 05/19/2023 10:20:02 Irritable bowel syndrome 55225093 K58.9 This 58-year-ol d female with recurrent GI pain likely due to IBS called today because of pain since this AM. She doesn't tolerate oral pain medication s due to GERD, but she has responded to Toradol in the past. I ordered Toradol 30 mg IM. She will follow-up with her PCP. The patient agreed with this plan. 18063 Kellie Woods MD Main - [facility] [address] [place] [address]76[address] 0 05/21/2023 12:59:15 05/24/2023 16:53:56 Urinary symptoms 164364616 R39.9 Abdominal pain 45316475 R10.9 07011 NO MATHIS MD Main - [facility] [address] [place] [address]77[address]770 0 06/06/2023 11:39:22 06/08/2023 10:04:30 Abdominal pain 52807478 R10.9 Evaluation in the field was performed by my ship steward colleague, as noted above, I provided real-time [...] N/V. Last BM this morning and normal. [place] Sign negative that makes intraperit baxter inflammati on less likely. Psoas and Obturator signs negative .Pt not on anticoagul ation Impression :Acute on chronic abdominal pain Plan:Ketor olac 15 mg IM [id number] to call her GI doctor on Wednesday [...] concerns Latosha Pressley MD Main - [facility] [address] [place] [address] 0 07/27/2023 17:32:53 07/27/2023 21:48:46 Chronic interstitial cystitis [id number] N30.10 Sofiya Frye MD Main - [facility] [address] [place] [address] 38124[address]473 0 07/30/2023 21:02:08 07/31/2023 12:36:08 Spasm of urinary bladder 165116254 N32.89 [id number] Duong Panchal MD Main - [facility] [address] [place] [address] 46236[address]559 0 08/24/2023 20:24:52 08/25/2023 11:16:42 Ulcerative colitis 10144214 K51.90 Patient reports a history of ulcerative colitis followed by GI. She reports that she has abdominal pain consistent with her typical chronic abdominal pain. Denies any new complaints . Reports a recent colonoscop y. No hematochez ia or melena. Requesting ketorolac as that typically resolves her symptoms. Denies any other complaints or concerns. [id number] Nelly Pérez MD Main - [facility] [address] [place] [address] [phone] 0 10/11/2023 19:12:01 10/11/2023 22:15:10 Chronic interstitial cystitis 407795968 N30.10 57 year old female, being evaluated for acute on chronic bladder pain. Per data gathered by ship steward, patient with chronic bladder pain without dysuria, [...] assessment and plan as documented by the ship steward. I provided real-time medical direction for this encounter and was immediatel y available to provide additional phone-base d assistance as needed. We discussed the diagnostic uncertaint y of home visits and associated risks. We discussed the need to seek care urgently/e mergently in the setting of any new or worsening symptoms. [id number] Tha Pierson MD Main - [facility] [address] [place] [phone] 0 01/23/2024 16:25:05 01/24/2024 10:37:03 Abdominal pain 81419122 R10.9 [id number] Nelly Pérez MD Main - [facility] [address] [place] [address] [phone] 0 04/18/2024 17:24:45 04/18/2024 22:03:45 Headache 13153248 R51.9 59 year old female being evaluated [...] assessment and plan as documented by the ship steward. I provided real-time medical direction for this [...] Babb Member ID Guarantor Name 07/30/2023 1 [facility] - DOS ON OR AFTER 2022 - DUAL ELIGIBLE - ALF OPTIONS AND ONE CARE (MEDICARE REPLACEMENT/ADV ANTAGE - HMO) Randi Desilets [id number] Randi A Desilets 08/24/2023 1 [facility] - DOS ON OR AFTER 2022 - DUAL ELIGIBLE - ALF OPTIONS AND ONE CARE (MEDICARE REPLACEMENT/ADV ANTAGE - HMO) Randi Desilets [id number] Randi A Desilets 10/11/2023 1 [facility] - DOS ON OR AFTER 2022 - DUAL ELIGIBLE - ALF OPTIONS AND ONE CARE (MEDICARE REPLACEMENT/ADV ANTAGE - HMO) Randi Desilets [id number] Randi A Desilets 01/23/2024 1 [facility] - DOS ON OR AFTER 2022 - DUAL ELIGIBLE - ALF OPTIONS AND ONE CARE (MEDICARE REPLACEMENT/ADV ANTAGE - HMO) Randi Desilets [id number] Randi A Desilets 04/18/2024 1 [facility] - DOS ON OR AFTER 2022 - DUAL ELIGIBLE - ALF OPTIONS AND ONE CARE (MEDICARE REPLACEMENT/ADV ANTAGE - HMO) Randi Lowery [id number] Randi Lowery Notes Date Note Type Note [...] ....................... ....................... ....................... ....................... ....................... ....................... ... Semiconductor Wafer Inspector Note From Gómez Kumar: Pt co abdominal pain. Has cystitis. Having surgery Wednesday. Was seen by [facility] Wednesday was given toradol with relief ..pt wanting toradol to hold her over for the weekend until surgery. Pt denies urinary symptoms, fever nausea vomiting diarrhea , cp sob, kidney problems. Baseline vitals assessed. [facility] contacted and 30mg toradol IM. Pt education on signs indicating the ER. Semiconductor Wafer Inspector Allergies: Acetaminophen, Ibuprofen ....................... ....................... ....................... ....................... ....................... ....................... ... Disposition: Ivan Sofiya Frye MD [address] [facility],[address], [place], [phone], [employer] 07/30/2023 21:05:26 08/24/2023 text/html CRC Nurse Triage Notes (Dave Cerna): Patient Reports: Inability to tolerate foods, fluids or daily medications Denies: Vague abdominal pain greater than 24 hours Nausea with or without vomiting Chief Complaints: Weakness/Lethargy, Dehydration, Abdominal Pain PMH: COPD/Asthma Allergies: Acetaminophen, Ibuprofen Comments: Gasoline Pump Installer verified the member's name//address and phone number. [...] ....................... ....................... ....................... ....................... ....................... ....................... ... Semiconductor Wafer Inspector Note From Spencer Reis: 58 yo F [...] but pt needs to follow up with tractor expert to not just mask the pain but cure the main issue. 30mg given left deltoid. explained risks of long wall mining machine tender use of Toradol/NSAIDs. discussed red flags with pt and friend. ....................... ....................... ....................... ....................... ....................... ....................... ... Disposition: Fulfilled Duong Panchal MD [address] [facility],[address], [place], [address], [employer] 08/24/2023 22:57:14 10/11/2023 text/html CRC Nurse Triage Notes (Mayra Jaime): Reason For Request: Pt reporting introsystalitis, pain, nausea (for a couple days), states bladder surgery for next week>is requesting toradol and zofran Chief Complaints: Nausea/Vomiting, Pain PMH: COPD/Asthma Allergies: Acetaminophen, Ibuprofen Comments: Gasoline Pump Installer verified the member's name//address and phone number. [...] ....................... ....................... ....................... ....................... ....................... ....................... ... Semiconductor Wafer Inspector Note From Corey Moralez: Pt reporting acute [...] ... Disposition: Fulfilled Nelly Pérez MD [address] [facility],[address], [place], [address], [employer] 10/11/2023 21:24:08 01/23/2024 text/html CRC Nurse Triage [...] got in contact with mbr around 1450. Gasoline Pump Installer verified the member's name//address and phone number. Mbr reporting generalized abdominal discomfort as well as nausea on going for the last few hours. Mbr reports awaiting bladder surgery which is scheduled for next month. [facility] has been seen in the past by [facility] for similar and [facility] Toradol has worked well for her pain in the past. Education provided on the response time and the member was advised to monitor reported s/s and seek emergency treatment if needed -Abdullahi Moeller RN ....................... ....................... ....................... ....................... ....................... ....................... ... Semiconductor Wafer Inspector Note From Yennifer Celeste: Pt reports 2-3 days of nausea, vomiting with lower abd pain. A&ox3, vss, afebrile; ? c ramping? in lower quadrants, mildly painful on palpation, denies cp, sob, back or flank pain, headache, dizziness, lightheadedness. [facility] consulted, 4mg zofran and 15mg toradol IM administered. Pt will follow up with pcp Wednesday. Red flags reviewed. Semiconductor Wafer Inspector Allergies: Acetaminophen, Ibuprofen ....................... ....................... ....................... ....................... ....................... ....................... ... Disposition: Fulfilled Tha Pierson MD [address] [facility],[address], [place], [address], [employer] 01/23/2024 18:50:39 04/18/2024 text/html CRC Nurse Triage [...] ....................... ....................... ....................... ....................... ....................... ....................... ... Semiconductor Wafer Inspector Note From Corey Moralze: This 59-year-old female with a history of [...] is soft, nontender, nondistended. No lower extremity edema.[facility] contacted and patient treated with ketorolac 30 [...] ....................... ....................... ....................... ....................... ....................... ....................... ... [facility] Consulted: Nelly Pérez ....................... ....................... ....................... ....................... ....................... ....................... ... Disposition: Ivan Pérez MD [address] [facility], [place], [address], [employer] 04/18/2024 19:46:24 OBGyn Episode No OBEpisode recorded.
--- OUTSIDE RECORDS SUMMARY | 2024-10-17 14:52 | XMS_ITS | Encounter Summary ---
Author Organization [facility] Address [address] [place] [id number] Phone Care Team Providers Care Stewarding Supervisor Name Role Phone Unknown, Unknown Primary Care Provider Brett Whitaker MD Primary Care Provider Pcp, Unknown Primary Care Provider Unavailabl e Encounter Details Date Type Department Care Team (Late st Contact Info) Description 01/21/2023 Transcribe Orders [facility] Specimen Processing [address] [place] [address] Stewart Carlson MD [address] [facility], [place], [address] [place] [address] [email or web address] Anemia, unspecified type (Primary Dx) Social History [...] as of this encounter Plan of Treatment Not on file documented as of this encounter Results * Vitamin B12 (01/21/2023 5:50 AM EDT) VITAMIN B12 1,019 232 - 1,245 pg/mL [facility] 01/21/2023 5:50 AM EDT 01/21/2023 12:07 PM EDT Stewart Carlson MD LAB BLOOD ORDERABLES [address] [address] * (ABNORMAL) Iron and iron binding capacity (01/21/2023 5:50 AM EDT) IRON 67 30 - 160 ug/dL [facility] IRON BINDING CAPACITY 222(L) 228 - 428 ug/dL [facility] TRANSFERRIN SATURAT. 30 15 - 50 % [facility] 01/21/2023 5:50 AM EDT 01/21/2023 12:07 PM EDT Stewart Carlson MD LAB BLOOD ORDERABLES Performing Organization Address [facility]/ZIP Co de Phone Number [address] [address] * Ferritin (01/21/2023 5:50 AM EDT) FERRITIN 56 13 - 150 ug/L [facility] 01/21/2023 5:50 AM EDT 01/21/2023 12:07 PM EDT Stewart Carlson MD LAB BLOOD ORDERABLES Performing Organization Address [facility]/ZIP Co de Phone Number [address] [address] * (ABNORMAL) Folate (01/21/2023 5:50 AM EDT) FOLIC ACID 3.0(L) 4.2 - 19.9 ng/mL [facility] 01/21/2023 5:50 AM EDT 01/21/2023 12:07 PM EDT Stewart Carlson MD LAB BLOOD ORDERABLES Performing Organization Address [facility]/ZIP Co de Phone Number [address] [address] * (ABNORMAL) CBC (01/21/2023 5:50 AM EDT) WBC 6.33 4.00 - 11.00 K/uL [facility] RBC 2.92(L) 3.72 - 5.30 M/uL [facility] HGB 8.4(L) 11.4 - 15.9 g/dL [facility] HCT 27.7(L) 34.2 - 46.8 % [facility] PLT 228 140 - 430 K/uL [facility] MCV 94.9 78.0 - 97.0 fL [facility] MCH 28.8 25.0 - 33.0 pg [facility] MCHC 30.3(L) 32.0 - 36.0 g/dL [facility] RDW 16.9(H) 11.0 - 16.0 % [facility] MPV 11.5 8.4 - 12.8 fl [facility] 01/21/2023 5:50 AM EDT 01/21/2023 12:07 PM EDT Stewart Carlson MD LAB BLOOD ORDERABLES Performing Organization Address City/State/[facility] Co de Phone Number [address] [phone] documented in this encounter Visit Diagnoses Diagnosis Anemia, unspecified type- Primary documented in this encounter Care Teams Stewarding Supervisor Relationship Specialty Start Date End Date Unknown, Unknown, PCP - General 01/21/23 01/27/23 Brett Su MD [address] [place] [id number] PCP - General Internal Medicine 01/28/23 01/28/23 Pcp, Unknown PCP - General 02/23/23 documented as of this encounter Additional Source Comments The information contained in this document represents components of the legal health record. It is not the complete legal health record.[facility]
== END 2024-10-17 16:11 | disposition home or self-care (01) ==
LOC: HO.HUSH 13:32
PROVIDERS: PCP Internal Medicine; Visit Provider Urology
DX: N30.10 Interstitial cystitis (chronic) without hematuria (principal); R39.15 Urgency of urination
CPT/HCPCS: 99024

== ENCOUNTER → 2024-10-17 13:32 | Outpatient (BNVA) | payer OTHER, SELFPAY | PROVIDERS: PCP Internal Medicine; Visit Provider Urology | DX: N30.10 Interstitial cystitis (chronic) without hematuria (principal); R39.15 Urgency of urination | CPT/HCPCS: 99212 ==

== ENCOUNTER 2024-10-30 13:33 | Day surgery (SDC) | payer OTHER, SELFPAY ==
[2024-10-30] VITALS (9 sets, daily range): BP systolic 115–133; BP diastolic 59–69; PULSE 60–75; RESP 16; TEMP 36.1–37.3; O2SAT 97–99; BMI 20.8
--- OUTSIDE RECORDS SUMMARY | 2024-10-30 09:39 | XMS_ITS | Data Portability ---
Author Organization [facility] Address [address] [place] [address] Care Team Providers Care Dairy Manager Name Role Phone ELVI LAWANDA ADULT MEDICINE Referring Provider HIM [facility] OTHER Assessment Encounter Date Assessment Date Assessment LastModified by Organization Details LastModified Time 07/30/2023 07/30/2023 I provided real -time medical direction via phone for this encounter, and was available for additional phone based assistance as needed. I have reviewed and agree with the Assessment and Plan as documented by the Lieutenant General. Patient given the opportunity to ask questions. As per above, service called for bladder pain and found this 58 riki with chronic interstitial cystitis c/b suprapubic pain. C/o 4d suprapubic sharp pain that is throbbing, knife-like and c/w prior episodes. She is soon to have hydroextension procedure. Last ketorlac > 1 wk prior. Regular PO food and fluid intake. Per formula maker on the scene, VSS and she is [...] assessment and plan as documented by the formula maker and would add/emphasize: Patient seen for acute [...] ketorolac 30 mg/mL injection solution 2023 024 [email or web address] [facility], [address] [place], [address], 4 19:46:11 ondansetr on HCl (PF) 4 mg/2 mL injection solution 2023 024 [facility], [address] [place], [address], 4 18:50:03 ketorolac 30 mg/mL injection solution 2023 024 [facility], [address] [place], [address], 4 18:50:03 Zofran 4 mg tablet 2023 024 SANDRA [facility], [address] [place], [address], 4 21:22:51 ketorolac 30 mg/mL injection solution 2023 024 [facility], [address] [place], [address], 4 21:23:56 ketorolac 30 mg/mL injection solution 2023 Adilene mayra [facility], [address] [facility], [place], [address], 4 22:56:59 Patient TargetsNo targets recorded. Patient [...] n nausea Not available Not available 08/12/2022 44708 3 RxNorm Lula Camacho MD [address] [place] [address],[address], [place], [address], [facility] 3 16:51:49 1995 Augmentin medicatio n Not available Not available Not available 08/12/2022 57215 2 RxNorm got mouth sores Lula Camacho MD [address] [place] [address],[address], [place], [address], [facility] 3 16:52:05 1996 acetamino phen medicatio n Not available Not available Not available 08/12/2022 161 RxNorm Not Available [facility] - production 4 03:45:01 1997 simvastat in medicatio n Not available Not available Not available 08/12/2022 59239 RxNorm Lula Camacho MD [address] [place] [address],[address], [place], [address], [facility] 3 16:52:28 Medications Name Sig Start Date [...] Details Last Updated DateTime 4 98.4 [degF] 93221.5 12 g 98 % 98 % 18 /min 90 /min 104 mm[Hg] 64 mm[Hg] Not Available [facility] 4 21:02:10 Date Recorded Respiratory rate Body weight Oxygen saturation Oxygen saturation in Arterial blood by Pulse oximetry Body temperature Body height Heart rate Systolic blood pressure Diastolic blood pressure Systolic blood pressure Diastolic blood pressure Provider Name and Address Organization Details Last Updated DateTime 4 14 /min 21012.9 6 g 76 % 76 % 98.5 [degF] 165.1 cm 74 /min 98 mm[Hg] 64 mm[Hg] 95 mm[Hg] 56 mm[Hg] Not Available [facility] 4 20:24:53 Date Recorded Oxygen saturation Oxygen saturation in Arterial blood by Pulse oximetry Respiratory rate Heart rate Body temperature Systolic blood pressure Diastolic blood pressure Provider Name and Address Organization Details Last Updated DateTime 4 97 % 97 % 16 /min 80 /min 98.1 [degF] 110 mm[Hg] 64 mm[Hg] Not Available [facility] 4 19:12:03 Date Recorded Body temperature Respiratory rate Oxygen saturation Oxygen saturation in Arterial blood by Pulse oximetry Heart rate Systolic blood pressure Diastolic blood pressure Provider Name and Address Organization Details Last Updated DateTime 4 98.4 [degF] 16 /min 98 % 98 % 86 /min 100 mm[Hg] 68 mm[Hg] Not Available [facility] 4 16:25:08 Date Recorded Respiratory rate Heart rate Oxygen saturation Oxygen saturation in Arterial blood by Pulse oximetry Body temperature Systolic blood pressure Diastolic blood pressure Provider Name and Address Organization Details Last Updated DateTime 4 16 /min 88 /min 96 % 96 % 96 [degF] 97 mm[Hg] 63 mm[Hg] Not Available [facility] 4 17:24:48 Social History None recorded. Functional [...] 4542 Tha Pierson MD Main - [facility] [address] [place] [phone] 03/24/2022 17:56:02 04/01/2022 18:48:22 Abdominal pain [id number] R10.9 4587 Amaury Kent MD Main - [facility] [address] [place] [phone] 03/26/2022 17:40:48 03/30/2022 12:00:01 Abdominal pain 88374372 R10.9 No red flag signs or kidney problems. Will give Toradol 15mg IM x1 4739 Jordan Chapman MD Main - [facility] [address] [place] [phone] 04/02/2022 17:07:08 04/03/2022 15:18:36 Urinary bladder pain 82122716 R39.82 Patient with exacerbati on of chronic abdominal pain which is attributed to interstiti al cystitis. She is planned for a surgical procedure for this soon. She got relief from toradol at a recent [facility] visit for same symptoms. No history of GI bleeding or chronic kidney disease.Rx toradol IM 15mg x1 [id number] Nelly Pérez MD Main - [facility] [address] [place] [phone] 04/08/2022 14:02:49 04/14/2022 16:18:59 Chronic interstitial cystitis 112222737 N30.10 57 year old female, being evaluated for chronic bladder pain. Per data gathered by formula maker, patient with chronic bladder pain without dysuria, scheduled for a surgical procedure next week. Her symptoms are at baseline, and she is tolerating PO. Her exam is notable for normal vital signs. Cannot take PO NSAIDS, however recalls IM toradol helpful in the past - dose given again today. FU PCP as needed. 5214 [facility] [address] [place] [phone] 04/22/2022 17:19:46 04/23/2022 11:41:13 Pain in right foot [id number] 44573 M79.671 57 year old female being evaluated [...] 5464 Kylee Hill MD Main - [facility] [address] [place] [phone] 05/03/2022 16:25:00 05/05/2022 09:08:24 Pain in left foot [id number] 16760 M79.672 57 yo F w/ known metatarsal [...] 8142 Lula Camacho MD Main - [facility] [address] [place] [phone] 08/12/2022 15:46:28 08/14/2022 09:39:18 Candidiasis of skin 88183275 B37.2 likely cause of rash Increased frequency of urination 933274873 R35.0 PAT NOT clinically dehydrated -not hyperglyce [...] 8250 Derik Bingham MD Main - [facility] [address] [place] [phone] 08/17/2022 11:11:00 08/19/2022 09:27:13 Chronic interstitial cystitis 026921331 N30.10 Localized eruption of skin 451509527 R21 8622 Kylee Hill MD Main - [facility] [address] [place] [phone] 08/28/2022 22:03:08 08/31/2022 11:13:17 Chronic interstitial cystitis 456047342 N30.10 long standing diagnosis c/b chronic pain. Recieves toradol occasional ly with good effect. No fevers/chi lls/hematu sofi. Will administer 30mg toradol, but advised pt to discuss timing of additional NSAIDs with surgical team as she is planned for surgery in 10d. will also prescribe 4d zofran for intermitte nt chornic nausea associated to chronic cystitis. Qtc<500. Of note, prescripti on called into [facility] over the phone / EMR malnctio n 9933 Angie Amador MD Main - [facility] [address] [place] [phone] 10/11/2022 16:10:03 10/12/2022 10:16:13 Abdominal pain 40902873 R10.9 Chronic low back pain 27 7554002 M54.50 Pain 68354441 R52 [id number] Derik Bingham MD Main - [facility] [address] [place] [phone] 10/16/2022 17:37:00 10/19/2022 09:55:32 Right upper quadrant pain 135778007 R10.11 07520 Jareth David MD Main - [facility] [address] [place] [phone] 10/29/2022 17:40:14 10/30/2022 08:56:05 Generalized abdominal pain 989025926 R10.84 This 57-year-ol d female had a [...] PCP. The patient agreed with this plan. [id number] Amaury Kent MD Main - [facility] [address] [place] [phone] 10/31/2022 15:42:54 11/03/2022 13:02:01 Generalized abdominal pain 047525139 R10.84 Generalize d abdominal pain similar to prior episodes. Mild nausea and sxs of dehydratio n, poor fluid intake. Had normal BMP on prior visit. Tolerated IVF, Zofran, Toradol in the past. No red flag signs. Will reorder. 50858 Leander Rosa MD Main - [facility] [address] [place] [phone] 11/04/2022 14:24:04 11/06/2022 13:41:01 Abdominal pain 15936412 R10.9 63943 Kylee Hill MD Main - [facility] [address] [place] [phone] 11/15/2022 15:34:46 11/25/2022 10:16:27 Chronic interstitial cystitis 044009711 N30.10 case supervised and discussed with formula maker. Patient was given opportunit y to ask questions, warning signs/symp toms of pertinent medical emergency reviewed. long standing diagnosis c/b chronic pain. Recieves toradol occasional ly with good effect. No fevers/chi lls/hematu sofi. Will administer 30mg toradol [id number] Latosha Pressley MD Main - [facility] [address] [place] [phone] 11/23/2022 20:46:17 11/24/2022 10:07:44 Chronic interstitial cystitis 810822293 N30.10 [id number] Amaury Kent MD Main - [facility] [address] [place] [phone] 11/28/2022 16:57:59 11/28/2022 23:15:41 Chronic interstitial cystitis 534782959 N30.10 Has upcoming cystocscop y, amenable to 30mg IM Toradol now Pain 96032741 R52 [id number] Jareth David MD Main - [facility] [address] [place] [phone] 12/13/2022 16:50:19 12/14/2022 10:41:58 Essential tremor 606466007 G25.0 This 57-year-ol d female with a history of ulcerative colitis and a resting tremor called [facility] because she thought she might be dehydrated . At the visit her hydration status looked good and her oral intake was adequate. She was advised to follow-up with her PCP. The patient agreed with this plan. 67784 Lula Camacho MD Main - [facility] [address] [place] [phone] 02/22/2023 18:33:03 02/23/2023 08:59:17 Abdominal pain 61555687 R10.9 Agree flare of interstiti al cystitis/p atevans has appointmen t to talk to her urologist in 48 hours/but not in person-adv ised since she has not had ketorolac in a while and her H & H are stable-we will give her a dose, however I advised she could develop a reaction to parenteral ketorolac similar to ibuprofen- she verbalized understand ing Hypokalemia 04200644 E87 .6 Unsure of etiology since the [...] and tomorrow - she verbalized she would 97741 Lula Camacho MD Main - [facility] [address] [place] [phone] 0 02/24/2023 11:00:53 02/24/2023 12:04:06 Hypokalemia 93218752 E87.6 Unsure of etiology since the patient denies nausea/ vomiting /diarrhea or excessive urine output/ now resolved with po K//lactate is slightly high but these new machines have been reading mildly high on everyone I have taken care of in the past week-doubt significan t given stable exam and vital signs and the fact that she is afebrile. 50218 Amaury Kent MD Main - [facility] [address] [place] [phone] 04/15/2023 15:37:09 04/16/2023 12:56:31 Abdominal pain 83035237 R10.9 Acute on chronic. Normal vital signs. No red flag signs or kidney problems. Will give Toradol 30mg IM x1. Discussed red flag signs for which to seek higher level of care. 53996 Sofiya Frye MD Main - [facility] [address] [place] [phone] 04/27/2023 21:55:53 04/28/2023 10:39:48 Chronic pain 70618392 G89.29 [id number] Corrie Pryor MD Main - [facility] [address] [place] [phone] 05/01/2023 12:37:10 05/02/2023 15:48:01 Chronic interstitial cystitis 263324312 N30.10 Evaluation in the field was performed by my formula maker colleague, as noted above, I provided real-time [...] shortness of breath, cough, chest pain, fever. 03236 Nelly Pérez MD Main - [facility] [address] [place] [phone] 0 05/10/2023 15:45:31 05/10/2023 22:56:22 Abdominal pain 67009310 R10.9 58 year old female with a [...] assessment and plan as documented by the formula maker. I provided real-time medical direction for this encounter and was immediatel y available to provide additional phone-base d assistance as needed. We discussed the diagnostic uncertaint y of home visits and associated risks. We discussed the need to seek care urgently/e mergently in the setting of any new or worsening symptoms. [id number] Jareth David MD Main - [facility] [address] [place] [address] [phone] 0 05/18/2023 14:57:58 05/19/2023 10:20:02 Irritable bowel syndrome 19363736 K58.9 This 58-year-ol d female with recurrent GI pain likely due to IBS called today because of pain since this AM. She doesn't tolerate oral pain medication s due to GERD, but she has responded to Toradol in the past. I ordered Toradol 30 mg IM. She will follow-up with her PCP. The patient agreed with this plan. 91340 Kellie Woods MD Main - [facility] [address] [place] [address] [phone] 0 05/21/2023 12:59:15 05/24/2023 16:53:56 Urinary symptoms 672382094 R39.9 Abdominal pain 92628634 R10.9 [id number] NO MATHIS MD Main - [facility] [address] [place] [phone] 0 06/06/2023 11:39:22 06/08/2023 10:04:30 Abdominal pain 41930211 R10.9 Evaluation in the field was performed by my formula maker colleague, as noted above, I provided real-time [...] N/V. Last BM this morning and normal. Dudley Sign negative that makes intraperit baxter inflammati on less likely. Psoas and Obturator signs negative .Pt not on anticoagul ation Impression :Acute on chronic abdominal pain Plan:Ketor olac 15 mg IM [id number] to call her GI doctor on Wednesday [...] concerns Latosha Pressley MD Main - [facility] [address] [place] [address] [phone] 0 07/27/2023 17:32:53 07/27/2023 21:48:46 Chronic interstitial cystitis 555030037 N30.10 Sofiya Frye MD Main - [facility] [address] [place] [address] [phone] 0 07/30/2023 21:02:08 07/31/2023 12:36:08 Spasm of urinary bladder 030358471 N32.89 28524 Duong Panchal MD Main - [facility] [address] [place] [address] [phone] 0 08/24/2023 20:24:52 08/25/2023 11:16:42 Ulcerative colitis 87608965 K51.90 Patient reports a history of ulcerative colitis followed by GI. She reports that she has abdominal pain consistent with her typical chronic abdominal pain. Denies any new complaints . Reports a recent colonoscop y. No hematochez ia or melena. Requesting ketorolac as that typically resolves her symptoms. Denies any other complaints or concerns. [id number] Nelly Pérez MD Main - [facility] [address] [place] [phone] 0 10/11/2023 19:12:01 10/11/2023 22:15:10 Chronic interstitial cystitis 096267040 N30.10 57 year old female, being evaluated for acute on chronic bladder pain. Per data gathered by formula maker, patient with chronic bladder pain without dysuria, [...] assessment and plan as documented by the formula maker. I provided real-time medical direction for this encounter and was immediatel y available to provide additional phone-base d assistance as needed. We discussed the diagnostic uncertaint y of home visits and associated risks. We discussed the need to seek care urgently/e mergently in the setting of any new or worsening symptoms. [id number] Tha Pierson MD Main - [facility] [address] [place] [address] [phone] 0 01/23/2024 16:25:05 01/24/2024 10:37:03 Abdominal pain 83243928 R10.9 79921 Nelly Pérez MD Main - [facility] [address] [place] [address] [phone] 0 04/18/2024 17:24:45 04/18/2024 22:03:45 Headache 40523984 R51.9 59 year old female being evaluated [...] assessment and plan as documented by the formula maker. I provided real-time medical direction for this [...] Recorded Advance Directives Directive None Recorded Payers Insurance Date Sequence Insurance Name Policy Number Policy Babb Covered Member ID Babb Member ID Guarantor Name 11/04/2022 1 [facility] - DOS PRIOR TO 2022 - DUAL ELIGIBLE (MEDICARE REPLACEMENT/ADV ANTAGE - HMO) Randi Lowery [id number] Randi Lowery 04/18/2024 1 [facility] - DOS ON OR AFTER 2022 - DUAL ELIGIBLE - RESIDENTIAL OPTIONS AND ONE CARE (MEDICARE REPLACEMENT/ADV ANTAGE - HMO) Randi Lowery [id number] Randi Lowery Notes Date Note Type Note [...] ....................... ....................... ....................... ....................... ....................... ....................... ... Lieutenant General Note From Gómez Kumar: Pt co abdominal pain. Has cystitis. Having surgery Wednesday. Was seen by [facility] Wednesday was given toradol with relief ..pt wanting toradol to hold her over for the weekend until surgery. Pt denies urinary symptoms, fever nausea vomiting diarrhea , cp sob, kidney problems. Baseline vitals assessed. [facility] contacted and 30mg toradol IM. Pt education on signs indicating the ER. Lieutenant General Allergies: Acetaminophen, Ibuprofen ....................... ....................... ....................... ....................... ....................... ....................... ... Disposition: Fulfilled Sofiya Frye MD [address] [place] [address],[address], [place], [address], [employer] 07/30/2023 21:05:26 08/24/2023 text/html CRC Nurse Triage Notes (Dave Cerna): Patient Reports: Inability to tolerate foods, fluids or daily medications Denies: Vague abdominal pain greater than 24 hours Nausea with or without vomiting Chief Complaints: Weakness/Lethargy, Dehydration, Abdominal Pain PMH: COPD/Asthma Allergies: Acetaminophen, Ibuprofen Comments: Radiation Protection Specialist verified the member's name//address and phone number. [...] ....................... ....................... ....................... ....................... ....................... ....................... ... Lieutenant General Note From Spencer Reis: 58 yo F [...] but pt needs to follow up with oil field equipment mechanic supervisor to not just mask the pain but cure the main issue. 30mg given left deltoid. explained risks of director long term care use of Toradol/NSAIDs. discussed red flags with pt and friend. ....................... ....................... ....................... ....................... ....................... ....................... ... Disposition: Fulfilled Duong Panchal MD [address] [facility],[address], [place], [address], [facility] 08/24/2023 22:57:14 10/11/2023 text/html CRC Nurse Triage Notes (Mayra Jaime): Reason For Request: Pt reporting introsystalitis, pain, nausea (for a couple days), states bladder surgery for next week>is requesting toradol and zofran Chief Complaints: Nausea/Vomiting, Pain PMH: COPD/Asthma Allergies: Acetaminophen, Ibuprofen Comments: Radiation Protection Specialist verified the member's name//address and phone number. [...] ....................... ....................... ....................... ....................... ....................... ....................... ... Lieutenant General Note From Corey Moralez: Pt reporting acute [...] ....................... ....................... ... Disposition: Ivan Pérez MD [address] [place] [address],[address], [place], [address], [employer] 10/11/2023 21:24:08 01/23/2024 text/html CRC Nurse Triage [...] visit for mbr while I await callback, left for mbr around 1415 -Abdullahi MoellerAfter multiple phone attempts, this RN got in contact with mbr around 1450. Radiation Protection Specialist verified the member's name//address and phone number. Mbr reporting generalized abdominal discomfort as well as nausea on going for the last few hours. Mbr reports awaiting bladder surgery which is scheduled for next month. [facility] Toradol has worked well for her pain in the past. Education provided on the response time and the member was advised to monitor reported s/s and seek emergency treatment if needed -Abdullahi Moeller RN ....................... ....................... ....................... ....................... ....................... ....................... ... Lieutenant General Note From Yennifer Celeste: Pt reports 2-3 days of nausea, vomiting with lower abd pain. A&ox3, vss, afebrile; ? c ramping? in lower quadrants, mildly painful on palpation, denies cp, sob, back or flank pain, headache, dizziness, lightheadedness. [facility] consulted, 4mg zofran and 15mg toradol IM administered. Pt will follow up with pcp Wednesday. Red flags reviewed. Lieutenant General Allergies: Acetaminophen, Ibuprofen ....................... ....................... ....................... ....................... ....................... ....................... ... Disposition: Fulfilled Tha Pierson MD [address] [facility],[address], [place], [address], [facility] 01/23/2024 18:50:39 04/18/2024 text/html CRC Nurse Triage [...] ....................... ....................... ....................... ....................... ....................... ....................... ... Lieutenant General Note From Corey Moralez: This 59-year-old female [...] is soft, nontender, nondistended. No lower extremity edema.[facility] contacted and patient treated with ketorolac 30 [...] ....................... ....................... ....................... ....................... ....................... ....................... ... [facility] Consulted: Nelly Pérez ....................... ....................... ....................... ....................... ....................... ....................... ... Disposition: Fulfilled Nelly Préez MD [address] [facility],[address] [facility], [place], [address], [facility] 04/18/2024 19:46:24 OBGyn Episode No OBEpisode recorded.
--- NOTE | 2024-10-30 14:27 | PC.NURSE ---
REMOVED OLD STOMA BAG AND APPLIED A NEW STOMA BAG PER PATIENTS REQUEST. BEEFY AND PINK IN COLOR.
[2024-10-30] MEDS: Lactated Ringers 1,000 ML 80 ML IVCONT (15:24)
[2024-10-30] MEDS: levoFLOXacin 500 MG TABLET PO (15:24)
--- NOTE | 2024-10-30 16:26 | MHC.SHP ---
Pre-Procedural Eval Section A - 24 Hr Update-Section A only Date of Service: 10/30/24 The patient is an INPATIENT: No Changes since office visit: No Cold of Flu in the past 2 weeks, No New Medical Problems, No Changes in Medication and No Patient answered all questions The patient has been examined within 24 hours of the surgical procedure. The History & Physical has been completed within 30 days and I have reviewed it.: Yes Section B - Complete if H&P > 30 days Chief Complaint: Interstitial cystitis (chronic) without hematuria Details of Present Illness: Here for hydrodistention Relevant Family History (Specify if Yes): No Relevant Social History: None Present Medications: see Short Stay Collaborative assessment Medical History: Significant History History of Previous Operations: Relevant previous surgery/procedure and date(s) Allergies: Allergies Allergy/AdvReac Type Severity Reaction Status Date / Time amoxicillin [From AUGMENTIN] Allergy Severe SEVERE Verified 10/17/24 13:34 DIARRHEA Hpelsal-SOO-LvE Reductase Allergy Intermediate muscle Verified 10/17/24 13:34 Inhibitor aches, [BEGQJMI-HBD-ABP REDUCTASE cramps INHIBITOR] acetaminophen [ACETAMINOPHEN] AdvReac Severe GI upset. Verified 10/17/24 13:34 Pt confirmed NOT allergic to oxycodone NSAIDS (Non-Steroidal AdvReac Severe Gastrointestinal Verified 10/17/24 13:34 Anti-Inflamma Upset oxycodone [From Percocet] AdvReac Gastrointestinal Verified 10/17/24 13:34 Upset Review of Systems Sugical H&P ROS: Negative: Constitution, Cardiovascular, Respiratory, Neurological, Psychiatric, Hem-Onc, Allergic/Immunologic, Gastrointestinal, Genitourinary, Musculoskeletal, Integumentary, Endocrine and Eyes/Ears/Nose/Throat Exam Surgical H&P Exam: Normal: HEENT, Normal: Heart, Normal: Lungs, Normal: Extremities, Normal: Abdomen, Normal: Skin and Normal: Neurological Plan Diagnosis/Plan: Unchanged (Bladder hydrodistention) I have reviewed the history and physical and performed a pertinent physical examination on my patient. No changes have occurred unless specified. Time Spent With Patient Time: Total time managing care of this patient today ____ minutes.
--- NOTE | 2024-10-30 17:16 | HO.ANESPROP2 ---
[facility] Active Problems Active Problems: All Active Problems Lumbosacral spondylosis (Acute) Lumbar radiculopathy (Acute) Pelvic floor dysfunction in female (Acute) Urinary urgency (Acute) Bladder pain (Acute) Fracture of fifth metatarsal bone of left foot (Acute) Bladder spasm (Acute) Interstitial cystitis (Acute) Sacral nerve stimulator present (Acute) Past Medical History Medical History Sacral nerve stimulator present Colostomy in place On beta morgan at home Anxiety SVT (supraventricular tachycardia) Depression Back pain History of gastrostomy tube placement Hx of ulcerative colitis Hx of cystitis History of anxiety Asthma Elevated cholesterol Family History Family history of problems with anesthesia: No Surgical History Surgical History History of bowel diversion surgery History of tubal ligation History of endometrial ablation History of bladder surgery History of Problems with Anesthesia: No Social History Social History Household Members: Significant Other Household Members Other:: s.o can stay to help when needed Housing: Apartment Are you a primary care manager to a significant other at home: No Do you presently have visiting nurse or other home services: No Alcohol intake: former Patient Tobacco Use Status: Current everyday Tobacco user Tobacco use type: Cigarette Cigarettes Per Day: 4 Years Smoked: 25 Use of substances other than those prescribed or required for medical reasons: No Are you DNR?: No Advance Directives: No Advance Directives Information Provided: Yes Patient : No : No Poor oral hygiene: No Current occupational status: disabled Meds Allergies Allergy/AdvReac Type Severity Reaction Status Date / Time amoxicillin [From AUGMENTIN] Allergy Severe SEVERE Verified 10/17/24 13:34 DIARRHEA Ftizhvm-WFL-PnU Reductase Allergy Intermediate muscle Verified 10/17/24 13:34 Inhibitor aches, [YUMSWAS-TCC-LMY REDUCTASE cramps INHIBITOR] acetaminophen [ACETAMINOPHEN] AdvReac Severe GI upset. Verified 10/17/24 13:34 Pt confirmed NOT allergic to oxycodone NSAIDS (Non-Steroidal AdvReac Severe Gastrointestinal Verified 10/17/24 13:34 Anti-Inflamma Upset oxycodone [From Percocet] AdvReac Gastrointestinal Verified 10/17/24 13:34 Upset Active Medications: Current Medications Lactated Ringer's (Lr) 1,000 mls @ 80 mls/hr IVCONT .[id number] MELY Last Admin: 10/30/24 15:24 Dose: 80 mls/hr Home Medications ?Medication ?Instructions ?Recorded ?Confirmed ?Last Taken ?Type albuterol sulfate 90 mcg/actuation 2 puff inhalation Q4-6H PRN 04/25/20 10/09/24 04/13/22 History aerosol inhaler (ProAir HFA) Shortness Of Breath metoprolol succinate 25 mg 12.5 mg PO DAILY 08/08/21 10/09/24 10/30/24 History tablet,extended release 24 hr omeprazole 20 mg capsule,delayed 20 mg PO DAILY 11/03/21 10/09/24 10/30/24 History release trazodone 50 mg tablet 50 mg PO BEDTIME 10/15/23 10/09/24 Unknown History lorazepam 0.5 mg tablet 0.5 mg PO NEEDED PRN Anxiety 04/07/24 10/09/24 10/30/24 History trazodone 100 mg tablet 100 mg PO BEDTIME 04/07/24 10/09/24 Unknown History primidone 50 mg tablet 50 mg PO BID 06/13/24 10/09/24 Unknown History Exam Height,Weight and Vital Signs: Height 5 ft 5 in Weight 56.6 kg Last Vital Signs Temp 99.1 F 10/30/24 14:29 Pulse 75 10/30/24 14:29 Resp 16 10/30/24 14:29 BP 115/69 10/30/24 14:29 Pulse Ox 97 10/30/24 14:29 O2 Del Method Room Air 10/30/24 14:29 Airway Mallampati Class: I TM Dist: >3cm Neck ROM: Full Assessment and Plan Assessment Anesthesia Assessment: Anesthesia Plan Discussed and Chart Reviewed Final Anesthetic Review Family History of Problems with Anesthesia: No History of Problems with Anesthesia: No NPO: Yes ASA Class: II Final Preanesthetic Review: No Changes in Pt Med Stat, Meds/Allgs Chart Reviewed, Consent Obtained/Reviewed and Anes Risks/Benef Reviewed Patient Risk: Low Procedure Risk: Low Anesthetic Plan Anesthetic Plan: GA Disposition: Standard PACU
--- NOTE | 2024-10-30 17:23 | P.OP_ITS ---
Operative Note Operative Note Date of Service: 10/30/24 Narrative: PreOperative Diagnosis: Interstitial cystitis with pelvic pain Post Operative Diagnosis: Interstitial cystitis with pelvic pain Procedure: Hydrodistention Surgeon: Dr Mk Cornelius Anesthesia: General Indications for procedure: Persistent hydrodistention Procedure: After informed consent was verified the patient was brought to the operating room and placed in a supine position. Anesthesia was administered per protocol. The patient was placed in a modified dorsal lithotomy position and prepped and draped in sterile fashion. Safety pause time-out was observed. Antibiotics being given. A 22 Bahamian cystoscope was used to empty the bladder. A mixture of bupivacaine lidocaine gel 20 cc was instilled into the bladder and allowed to sit for 2-3 minutes. A belladonna and opiate rectal suppository was placed. Hydrodistention of the bladder was performed. The bladder was filled and allowed to sit for 2 minutes. Filling was from a height of 1 m. On the 1st fill there was 800 cc within the bladder. Cystoscopy revealed mild glomerulations consistent with interstitial cystitis. Second filling of the bladder was performed in similar fashion. Volume was approximately 800 cc. Terminal hematuria noted. Bupivacaine lidocaine gel 20 cc was instilled at completion of the procedure The the bladder was emptied. The patient tolerated procedure well was extubated in operating room transferred in stable condition to the recovery area. Appropriate postprocedure pain medication was provided. Pathology: [] Drains: None
[2024-10-30] MEDS: fentaNYL citrate/PF 100 MCG/2 ML VIAL 50 MCG IVPUSH (18:30)
== END 2024-10-30 19:00 | disposition home or self-care (01) ==
PROVIDERS: PCP Internal Medicine; Visit Provider Urology
PROC: 0T7B7ZZ Dilation of Bladder, Via Natural or Artificial Opening (ICD-10-PCS; CPT 52260; principal; 2024-10-30 16:00)
DX: N30.10 Interstitial cystitis (chronic) without hematuria (principal); R10.2 Pelvic and perineal pain; R39.15 Urgency of urination; R39.89 Other symptoms and signs involving the genitourinary system; I47.19 Other supraventricular tachycardia; E78.00 Pure hypercholesterolemia, unspecified; J45.909 Unspecified asthma, uncomplicated; Z96.82 Presence of neurostimulator; Z93.3 Colostomy status; F32.A Depression, unspecified; Z79.899 Other long term (current) drug therapy; Z88.6 Allergy status to analgesic agent; Z88.1 Allergy status to other antibiotic agents; Z88.5 Allergy status to narcotic agent; Z98.890 Other specified postprocedural states; F17.210 Nicotine dependence, cigarettes, uncomplicated
CPT/HCPCS: 52260; J0131; J1100; J2003; J2250; J2405; J2704; J3010

== ENCOUNTER → 2024-10-30 13:33 | Outpatient (BNV) | payer OTHER, SELFPAY | PROVIDERS: PCP Internal Medicine; Visit Provider Urology | DX: N30.10 Interstitial cystitis (chronic) without hematuria (principal) | CPT/HCPCS: 52260 ==

== ENCOUNTER 2025-01-04 12:52 | Emergency (ER) | payer OTHER, SELFPAY ==
--- OUTSIDE RECORDS SUMMARY | 2024-12-30 13:52 | XMS_ITS | Continuity of Care Document ---
Author Organization [facility] Address [address] [place] [address]- Care Team Providers Care Hand Shaker Name Role Phone Brett Su MD Primary Care Physician Encounter [facility] Date(s): 12/30/24 - 12/30/[address] [address]- Encounter Diagnosis Colostomy care(Final) - 12/30/24 Discharge Disposition: A-D/C Home Attending Physician: Caroline Beebe DO Admitting Physician: Caroline Beebe DO Referring Physician: Not on Staff, Referring [...] Given pneumococcal 20-valent conjugate vaccine 01/18/23 Recorded [id number] 12y+ bivalent booster vax 01/27/23 Recorded tetanus-diphtheria toxoids (Td) 07/16/21 Given SARS-CoV-2 mRNA ([id number]) vax 07/16/21 Given Influenza Virus Vaccine (oldterm) [...] Given 1Result Comment: [03/08/2017] [facility] [place] 2Location History: [facility] 3Admin Note: [facility] 4Admin Note: per pt [facility] 5Admin Note: given in clinic 6Admin Note: WING 7Admin Note: clinic ronnie Medications Adhesive remover wipes Adhesive remover wipes, See Instructions, # 50 each, Refills 11, Tot. Refills 11, Maintenance, use as needed for ostomy maintaince. Dx ileostomy Z93.2, 11/27/24 8:52:00 AM EDT, Supply Start Date: 11/27/24 Status: Ordered Quantity: 50.0 Unit: each Repeat number: 12 Albuterol (Eqv-ProAir HFA) 90 mcg/inh inhalation aerosol 2 puffs, Inhalation, Every 6 hours, PRN NEEDED FOR WHEEZING, # 8.5 each, 5 Refills, Maintenance,10/17/24 4:32:00 PM EDT, [facility]/pharmacy #[id number], 25, 2 puffs Inhalation Every 6 hours,PRN: NEEDED FOR WHEEZING, 165, cm, 10/16/24 17:32:00 EDT, Height, 59.1, kg, 10/16/24 17:32:00 EDT, Dry Weight Start Date: 10/17/24 Status: Ordered Quantity: 8.5 Unit: each Repeat number: 6 Barrier rings ([id number]) Barrier rings (648750), See Instructions, # 20 each, Refills 11, Tot. Refills 11, Maintenance, use as needed for ostomy maintaince. Dx ileostomy Z93.2, 11/27/24 8:52:00 AM EDT, Supply Start Date: 11/27/24 Status: Ordered Quantity: 20.0 Unit: each Repeat number: 12 Barrier strips (183111) Barrier strips (695603), See Instructions, # 40 each, Refills 11, Tot. Refills 11, Maintenance, useas needed for ostomy maintaince. Dx ileostomy Z93.2, 11/27/24 8:52:00 AM EDT, Supply Start Date: 11/27/24 Status: Ordered Quantity: 40.0 Unit: each Repeat number: 12 Cavilon Advanced skin protectant 0.7ml #5015 Cavilon Advanced skin protectant 0.7ml #5015, See Instructions, # 1 each, Refills 11, Tot. Refills 11, Maintenance, use as needed for ostomy care. Dx ileostomy Z 93.2, 03/01/24 11:03:00 AM EDT, Compound Start Date: 03/01/24 Status: Ordered Quantity: 1.0 Unit: each Repeat number: 12 Coloplast pre-cut bags (47749) Coloplast pre-cut bags (17773), See Instructions, # 20 each, Refills 11, Tot. Refills 11, Maintenance, use as needed for ostomy maintaince. Dx ileostomy Z93.2, 11/27/24 8:52:00 AM EDT, Supply Start Date: 11/27/24 Status: Ordered Quantity: 20.0 Unit: each Repeat number: 12 cyanocobalamin 1000 mcg oral tablet 1,000 mcg, By Mouth, Daily, # 90 tablet, Refills 0, Tot. Refills 0, Maintenance, 09/19/24 12:50:00 PMEDT, Route to Pharmacy Electronically, [facility], Partial fill upon patient request if the prescription is for a schedule II opioid drug., 165, cm, 09/19/24 11:23:00 EDT, Height, 57.6,kg, 09/15/24 9:31:00 EDT, Dry Weight Start Date: 09/19/24 Stop Date: 12/18/24 Status: Ordered Quantity: 90.0 Unit: tablet Repeat number: 1 cyclobenzaprine 5 mg oral tablet 1 tablet, By Mouth, Daily at bedtime, PRN NEEDED FOR SPASM, FURTHER REFILLS REQUIRE AN OFFICE VISIT, # 14 tablet, 0 Refills, Maintenance, 11/20/24 8:35:00 AM EDT, [facility]/pharmacy #[id number], 165, cm, 11/18/24 15:48:00 EDT, Height, 56.4, kg, 11/18/24 15:48:00 EDT, Dry Weight Start Date: 11/20/24 Stop Date: 12/04/24 Status: Ordered Quantity: 14.0 Unit: tablet Repeat number: 1 ferrous sulfate 325 mg oral enteric coated [...] 09/19/24 12:51:00 PM EDT,Route to Pharmacy Electronically, [facility], Partial fill upon patient [...] Quantity: 1.0 Unit: each Repeat number: 1 Handheld Showerhead Handheld Showerhead, See Instructions, # 1 each, Refills 0, Tot. Refills 0, Maintenance, Dx: Peripheral neuropathy (G62.9), 11/01/24 10:02:00 AM EDT, Supply Start Date: 11/01/24 Status: Ordered Quantity: 1.0 Unit: each Repeat number: 1 lidocaine 5% topical film 1 patch, Topically, Daily, remove patches after 12 hours, # 30 patch, 11 Refills, Maintenance, 12/12/24 2:03:00 PM EDT, Film, [facility] #[id number], Partial fill upon patient request if the prescription is for a schedule II opioid drug., 1 patch Topically Daily,Instr:remove patches after 12 hours, 165, cm, 12/12/24 12:30:00 EDT, Height, 56, kg, 12/10/24 11:10:00 EDT, Dry Weight Start Date: 12/12/24 Status: Ordered Quantity: 30.0 Unit: patch Repeat number: 12 LORazepam 0.5 mg oral tablet 1 tablet = 0.5 mg, By Mouth, 3 times a day, # 90 tablet, 5 Refills, Maintenance, 09/13/24 4:27:00 PM EDT, Tablet, [facility], Partial fill upon patient request if the prescription is for a schedule II opioid drug., 165, cm, 09/11/24 21:11:00 EDT, Height, 62.2, kg, 09/11/24 21:11:00 EDT, Dry Weight Start Date: 09/13/24 Status: Ordered Quantity: 90.0 Unit: tablet Repeat number: 6 metoprolol 50 mg oral tablet, extended release 50 mg, 1, tablet, By Mouth, Daily, # 90 tablet, Refills 3, Tot. Refills 3, Maintenance, 12/20/24 12:05:00 PM EDT, Route to Pharmacy Electronically, [facility]/pharmacy #[id number], Partial fill upon patient requestif the prescription is for a schedule II opioid drug., 165, cm, 12/19/24 14:28:00 EDT, Height, 56.1, kg, 12/19/24 14:28:00 EDT, Dry Weight Start Date: 12/20/24 Status: Ordered Quantity: 90.0 Unit: tablet Repeat number: 4 No sting skin prep spray (Díaz and [...] Date: 02/01/24 Status: Ordered Repeat number: 1 ondansetron 4 mg oral tablet, disintegrating 1 tablet = 4 mg, By Mouth, Every 8 hours, PRN Nausea & Vomiting, # 20 tablet, 0 Refills, Maintenance, 12/25/24 12:56:00 AM EDT, Tablet, [facility]/pharmacy #[id number], Partial fill upon patient request if theprescription is for a schedule II opioid drug., 166, cm, 12/24/24 22:15:00 EDT, Height, 57, kg, 12/24/24 22:15:00 EDT, Dry Weight Start Date: 12/25/24 Status: Ordered Quantity: 20.0 Unit: tablet Repeat number: 1 oxybutynin 5 mg oral tablet 1 tablet = 5 mg, By Mouth, 3 times a day, 0 Refills, Maintenance, 09/15/24 9:42:00 AM EDT, Partial fill upon patient request if the prescription is for a schedule II opioid drug. Start Date: 09/15/24 Status: Ordered Repeat number: 1 oxyCODONE 5 mg oral tablet 5 mg, 1, tablet, By Mouth, Every 8 hours, PRN, Refills 0, Tot. Refills 0, Maintenance, as needed for pain, 11/12/24 9:32:00 PM EDT, Partial fill upon patient request if the prescription is for a schedule II opioid drug. Start Date: 11/12/24 Status: Ordered Repeat number: 1 pantoprazole 40 [...] Date: 07/14/24 Status: Ordered Repeat number: 1 Skin prep spray (Díaz and Nephew) Skin prep spray (Díaz and Nephew), See Instructions, # 1 each, Refills 11, Tot. Refills 11, Maintenance, Use as needed for ostomy maintaince. Dx ileostomy Z93.2, 11/27/24 8:52:00 AM EDT, Supply Start Date: 11/27/24 Status: Ordered Quantity: 1.0 Unit: each Repeat number: 12 traZODone 100 mg oral tablet 1, tablet, By Mouth, Daily at bedtime, # 30 tablet, Refills 11, Tot. Refills 11, Maintenance, 03/17/24 4:10:00 PM EDT, Route to Pharmacy Electronically, [facility]/pharmacy #[id number], 163, cm, 03/17/24 15:48:00 EDT, [...] Team Personnel Name: Yoselyn Mccormick RN Position: [facility] RN Member Role: Primary Care Nurse Name: Gladys Koenig RN Position: [facility] RN Member Role: Primary Care Nurse Name: Rand Baez RN Position: [facility] RN Member Role: Primary Care Nurse Name: Bethany Soares RN Position: [facility] RN Member Role: Primary Care Nurse Name: Pam Harmon RN Position: S RN Member Role: Primary Care Nurse Name: Graciela Harmon RN Position: S RN Member Role: Primary Care Nurse Name: Wenceslao Perez RN Position: S RN Member Role: Primary Care Nurse Name: Stella Ramos RN Position: S RN Member Role: Primary Care Nurse Name: Brett Su MD Position: S Physician - Primary Care Member Role: PCP Address: [address] [place] [id number]- Telecom: Name: Vangie Chun RN Position: [facility] RN Member Role: Primary Care Nurse Name: Leidy Gray RN Position: [facility] RN Member Role: Primary Care Nurse Name: Jimbo Boswell RN Position: [facility] SN RN Member Role: Primary Care Nurse Name: James Alvarez RN Position: [facility] RN Member Role: Primary Care Nurse Name: Milena Rios RN Position: [facility] RN Member Role: Primary Care Nurse Name: Oralia Ashley RN Position: [facility] RN Member Role: Primary Care Nurse Name: Phyllis Holman RN Position: [facility] RN Member Role: Primary Care Nurse Name: Raya Jewell RN Position: [facility] RN Member Role: Primary Care Nurse Name: Gamaliel Shipman RN Position: [facility] RN Member Role: Primary Care Nurse Name: Harini Aponte RN Position: [facility] RN Member Role: Primary Care Nurse Name: Nya Liu RN Position: [facility] RN Member Role: Primary Care Nurse Name: Geri Galvan RN Position: [facility] RN Member Role: Primary Care Nurse Name: Eri Mars RN Position: [facility] RN Member Role: Primary Care Nurse Name: Lula Velasco RN Position: [facility] RN Member Role: Primary Care Nurse Name: Guerline Benavides RN Position: [facility] RN Member Role: Primary Care Nurse Name: Fatimah Glaaviz RN Position: [facility] ED RN W/OE and Tasks Member Role: Primary Care Nurse Care Team Related Persons Name: KIAN TAMAYO Name: MARTA LEWIS Name: GUERRERO AGUILAR Name: ITALO CORNEJO Insurance Providers Guarantor name: NICOLAS TAMAYO Health Plan Information #: 1 Payer: [facility] Payer Identifier: ANAMIKA Member Number: [id number] Group Number: [id number] Subscriber Identifier: [id number] Relationship to Subscriber: self Coverage Type: Medicare Managed Care (Includes Medicare Advantage Plans) Coverage Verification Date: ANAMIKA Telecom: ANAMIKA Address:
--- OUTSIDE RECORDS SUMMARY | 2024-12-31 23:59 | XMS_ITS | Continuity of Care Document ---
Author Organization [facility] Address [address] [place] [address] ve [address] [place] [address]- Care Team Providers Care Cobol Application Developer Name Role Phone Sharlene STEWART, Brett Araujo Primary Care Physician [phone] [place] [facility]): [place]01[place] - 12/31/24 [facility] [address] [place], [place] [address] Encounter Type: Triage Allergies, Adverse [...] Given pneumococcal 20-valent conjugate vaccine 01/18/23 Recorded [id number] 12y+ bivalent booster vax 01/27/23 Recorded tetanus-diphtheria toxoids (Td) 07/16/21 Given SARS-CoV-2 mRNA ([id number]) vax 07/16/21 Given Influenza Virus Vaccine (oldterm) [...] Given 1Result Comment: [03/08/2017] [facility] 2Location History: [facility] 3Admin Note: [facility] 4Admin Note: per pt rcvd [facility] 5Admin [...] each, 5 Refills, Maintenance,10/17/24 4:32:00 PM EDT, [facility]/pharmacy #[id number], 25, 2 puffs Inhalation Every 6 hours,PRN: NEEDED FOR WHEEZING, 165, cm, 10/16/24 17:32:00 EDT, Height, 59.1, kg, 10/16/24 17:32:00 EDT, Dry Weight Start Date: 10/17/24 Status: Ordered Quantity: 8.5 Unit: each Repeat number: 6 Barrier rings (054402) Barrier rings (268856), See Instructions, # 20 each, Refills 11, Tot. Refills 11, Maintenance, use as needed for ostomy maintaince. Dx ileostomy Z93.2, 11/27/24 8:52:00 AM EDT, Supply Start Date: 11/27/24 Status: Ordered Quantity: 20.0 Unit: each Repeat number: 12 Barrier strips (406805) Barrier strips (665657), See Instructions, # 40 each, Refills 11, [...] each Repeat number: 12 Coloplast pre-cut bags (35711) Coloplast pre-cut bags (44958), See Instructions, # 20 each, Refills 11, Tot. Refills 11, Maintenance, use as needed for ostomy maintaince. Dx ileostomy Z93.2, 11/27/24 8:52:00 AM EDT, Supply Start Date: 11/27/24 Status: Ordered Quantity: 20.0 Unit: each Repeat number: 12 cyanocobalamin 1000 mcg oral tablet 1,000 mcg, By Mouth, Daily, # 90 tablet, Refills 0, Tot. Refills 0, Maintenance, 09/19/24 12:50:00 PMEDT, Route to Pharmacy Electronically, [facility] 3, Partial fill upon patient request [...] 0 Refills, Maintenance, 11/20/24 8:35:00 AM EDT, [facility]/pharmacy #[id number], 165, cm, 11/18/24 15:48:00 EDT, Height, [...] 09/19/24 12:51:00 PM EDT,Route to Pharmacy Electronically, [facility], Partial fill upon patient [...] 12:05:00 PM EDT, Route to Pharmacy Electronically, [facility]/pharmacy #[id number], Partial fill upon patient requestif the [...] Refills, Maintenance, 12/25/24 12:56:00 AM EDT, Tablet, [facility]/pharmacy #1230, Partial fill upon patient [...] 4:10:00 PM EDT, Route to Pharmacy Electronically, [facility]/pharmacy #[id number], 163, cm, 03/17/24 15:48:00 [...] Care Nurse Name: Gladys Koenig RN Position: [facility] RN Member Role: Primary Care Nurse Name: Rand Baez RN Position: [facility] RN Member Role: Primary Care Nurse Name: Bethany Soares RN Position: [facility] RN Member Role: Primary Care Nurse Name: Pam Harmon RN Position: [facility] RN Member Role: Primary Care Nurse Name: Graciela Harmon RN Position: [facility] RN Member Role: Primary Care Nurse Name: Wenceslao Perez RN Position: [facility] RN Member Role: Primary Care Nurse Name: Stella Ramos RN Position: [facility] RN Member Role: Primary Care Nurse Name: Brett Su MD Position: [facility] Physician - Primary Care Member Role: PCP Address: [address] [place] [phone]- Telecom: Name: Vangie Chun RN Position: [facility] RN Member Role: Primary Care Nurse Name: Leidy Gray RN Position: S RN Member Role: Primary Care Nurse Name: Jimbo Boswell RN Position: [facility] RN Member Role: Primary Care Nurse Name: [...] Care Nurse Name: Gamaliel Shipman RN Position: [facility] RN Member [...] Care Nurse Care Team Related Persons Name: SHIVALILYKIAN Name: MARTA LEWIS Name: GUERRERO AGUILAR Name: ITALO CORNEJO Insurance Providers Guarantor name: NICOLAS TAMAYO Health Plan Information #: 1 Payer: [facility] Payer Identifier: ANAMIKA Member Number: [id number] Group Number: [id number] Subscriber Identifier: [id number] Relationship to Subscriber: self Coverage Type: Medicare Managed Care (Includes Medicare Advantage Plans) Coverage Verification Date: NA Telecom: NA Address: NA
--- NOTE | ~2025-01-04 | CT_ITS ---
EXAMINATION: CT ABDOMEN AND PELVIS WITH CONTRAST CLINICAL INFORMATION: S/p colectomy,IC, severe pelvic pain COMPARISON: December 19, 2023 TECHNIQUE: Multidetector volumetric images were obtained from the superior aspect of the liver through the pubic symphysis following administration 85 mL of Omnipaque 350 intravenous contrast. Sagittal and coronal reformatted images were obtained on the technologist's workstation. Oral contrast: No This CT examination was performed using dose optimization techniques as appropriate, variously including the following: *Automated exposure control *Adjustment of mA and/or kV according to patient size (this includes techniques or standardized protocols for targeted exams where dose is matched to indication/reason for exam; i.e. extremities or head) *Use of iterative reconstruction technique DLP: 396 mGY*cm FINDINGS: LUNG BASES: Linear atelectasis present in the posterior right greater than left base. LIVER, GALLBLADDER, AND BILIARY TREE: The liver is normal in size, shape, and attenuation. No focal hepatic lesion or biliary ductal dilatation is present. The gallbladder surgically absent. There are clips in the gallbladder fossa. There is stable mild intrahepatic biliary ductal dilation suggesting sphincterotomy. Hepatic bile duct dilation decreased. PANCREAS: Unremarkable. SPLEEN: Unremarkable. ADRENAL GLANDS: Unremarkable. KIDNEYS AND URETERS: Benign simple renal cyst in the superior right kidney is unchanged. BLADDER: Unremarkable. GASTROINTESTINAL TRACT: Stomach and duodenum are unremarkable. Proximal jejunal loops appear thick walled and borderline dilated Remaining loops of small bowel are unremarkable. There has been colectomy and there is a right lower quadrant ileostomy. Appearance of the stoma is unchanged. Rectal pouch is unremarkable. LYMPH NODES: Normal. VASCULAR: Multifocal vascular calcifications are present. PELVIC VISCERA: Unremarkable. No free fluid is identified OSSEOUS STRUCTURES: Chronic superior endplate fracture of T12 is stable. Bilateral S3 neural stimulators are in place. CT/CT abdomen pelvis w IV con IMPRESSION: The proximal jejunum appears thick walled and borderline dilated. The appearance is nonspecific. This can be related to infection, but ischemia and inflammatory bowel disease are not ruled out. Neoplasm is unlikely. Right lower quadrant ileostomy appears unchanged. Stable chronic compression fracture of superior endplate of T12. Stable mild intrahepatic biliary duct dilation postcholecystectomy. Improved extrahepatic biliary dilation. Fleischner guidelines were followed. Electronically signed by: Fabricio Sarah MD 01/04/2025 04:45 PM EDT RP
[2025-01-04 13:01] VITALS: BP 113/62; BP 129/50; PULSE 68; PULSE 71; RESP 16; TEMP 36.6; O2SAT 100; O2SAT 93; BMI 20.8
[2025-01-04 13:09] VITALS: BP 129/50; PULSE 68; RESP 16; TEMP 36.6; O2SAT 93
--- OUTSIDE RECORDS SUMMARY | 2025-01-04 13:27 | XMS_ITS | Clinical Summary ---
Author Organization [facility] Address [address] [facility] [address] [place] [phone] Phone Care Team Providers Care Data Entry Associate Name Role Phone Pcp, Unknown Primary Care Provider Unavailabl e Allergies Active Allergy Reactions Criticality Noted Date Comments Amoxicillin 02/01/2023 Ibuprofen 02/01/2023 Penicillin 02/01/2023 Simvastatin 02/01/2023 Tylenol Extended Release 02/01/2023 Medications omeprazole (PRILOSEC) 20 MG capsule Take 20 mg by mouth daily. 3 Active albuterol (PROAIR HFA) 90 mcg/actuation inhaler Inhale 2 puffs into the lungs every 6 (six) hours as needed for shortness of breath/dyspnea or wheezing. 3 Active metoprolol succinate (TOPROL XL) 25 MG 24 hr tablet Take 25 mg by mouth daily. 5 Active traZODone (DESYREL) 50 MG tablet Take 100 mg by mouth nightly at bedtime. 4 Active nystatin (NYSTOP) powder Apply 1 Application topically 2 (two) times a week. use to peristomal skin with pouch change 4 Active oxyBUTYnin (DITROPAN) 5 MG tablet Take 5 mg by mouth daily. Take 1 tablet by mouth every day 4 Active LORazepam (ATIVAN) 0.5 MG tablet Take 0.5 mg by mouth 3 (three) times a day. 4 Active sertraline (ZOLOFT) 50 MG tablet Take 100 mg by mouth daily. 4 Active primidone (MYSOLINE) 50 MG tablet Take 50 mg by mouth daily. 4 Active primidone (MYSOLINE) 50 MG tablet Take 50 mg by mouth 3 (three) times a day. 5 Active cyclobenzaprin e (FLEXERIL) 10 MG tablet Take 10 mg by mouth nightly at bedtime. 5 Active ferrous sulfate 325 mg (65 mg shinnecock iron) tablet Take 325 mg by mouth daily. 5 Active gabapentin (NEURONTIN) 100 MG capsule Take 100 mg by mouth nightly at bedtime. 3 02/09/20 23 Discontin ued(Stop Taking at Discharge ) mirtazapine (REMERON) 7.5 MG tablet Take 7.5 mg by mouth nightly at bedtime. 3 02/09/20 23 Discontin ued(Stop Taking at Discharge ) Social History Tobacco Use Types Packs/Day Years [...] with a working camera? Not on file Comments Unknown Sex and Gender Information Value Date Recorded Sex Assigned at Not on file Legal Sex Female 9:41 PM EDT Gender Identity Not on file Sexual Orientation Not on file Last Filed Vital Signs Vital Sign Reading Time Taken Comments Blood Pressure 98/60 09/14/2024 9:06 AM EDT Pulse 80 09/14/2024 9:06 AM EDT Temperature 37.1 C (98.8 F) 09/14/2024 9:06 AM EDT Respiratory Rate 18 09/14/2024 9:06 AM EDT Oxygen Saturation 99% 09/14/2024 9:06 AM EDT Inhaled Oxygen Concentration - - Weight 61.7 kg (136 lb) 09/12/2024 9:28 AM EDT Height - - Body Mass Index - - Plan of Treatment Health Maintenance Due Date Last Done Comments LIPID PANEL 1965 DEPRESSION SCREENING 1977 SMOKING Hx and SMOKELESS TOBACCO SCREENING 1978 HEPATITIS C SCREENING 1983 HIV ONE-TIME SCREENING (18-65 YEARS) 1983 PAP SMEAR 1986 MAMMOGRAM 2005 COLOGUARD 2010 COLONOSCOPY 2010 COLORECTAL CANCER SCREENING 2010 FIT TEST 2010 FOBT 2010 SIGMOIDOSCOPY 2010 VIRTUAL COLONOSCOPY 2010 COVID-19 VACCINE ( season) 2024 01/27/2023, 10/03/2020, [...] age to complete this topic MENINGOCOCCAL VACCINES (B) Aged Out N o longer eligible based on patient's age to complete this topic Medical Devices Not on file Insurance [facility] MEDICARE REPLACEMENT [place] [id number] [facility] MEDICARE REPLACEMENT [facility] MEDIC[facility] REPLACEMENT [facility] MEDICARE REPLACEMENT [facility] [employer] MEDICARE REPLACEMENT [facility] C[facility] MEDICARE REPLACEMENT Care Teams Data Entry Associate Relationship Specialty Start Date End Date Pcp, Unknown PCP - General 02/23/23 Additional Source Comments The information contained in this document represents components of the legal health record. It is not the complete legal health record.[facility]
--- OUTSIDE RECORDS SUMMARY | 2025-01-04 13:27 | XMS_ITS | Data Portability ---
Author Organization [employer] [facility], [facility] Address [address] [place] [address] Care Team Providers Care Mailing Clerk Name Role Phone ELVI [facility] Referring Provider [facility] OTHER Assessment Encounter Date Assessment Date Assessment LastModified by Organization Details LastModified Time 07/30/2023 07/30/2023 I provided real -time medical direction via phone for this encounter, and was available for additional phone based assistance as needed. I have reviewed and agree with the Assessment and Plan as documented by the Boat Officer. Patient given the opportunity to ask questions. As per above, service called for bladder pain and found this 58 riki with chronic interstitial cystitis c/b suprapubic pain. C/o 4d suprapubic sharp pain that is throbbing, knife-like and c/w prior episodes. She is soon to have hydroextension procedure. Last ketorlac > 1 wk prior. Regular PO food and fluid intake. Per data systems manager on the scene, VSS and she [...] assessment and plan as documented by the data systems manager and would add/emphasize: Patient seen for [...] ketorolac 30 mg/mL injection solution 2023 024 [email or web address] [id number], [address] [place], [address], 4 19:46:11 ondansetr on HCl (PF) 4 mg/2 mL injection solution 2023 024 [id number], [address] [place], [address], 4 18:50:03 ketorolac 30 mg/mL injection solution 2023 024 [facility], [address] [place], [address], 4 18:50:03 Zofran 4 mg tablet 2023 024 SANDRA [facility], [address] [place], [address], 4 21:22:51 ketorolac 30 mg/mL injection solution 2023 024 [email or web address] [facility], [address] [place], [address], 4 21:23:56 ketorolac 30 mg/mL injection solution 2023 Adilene mayra [facility], [address] [facility], [facility], [place], [address], 4 22:56:59 Patient TargetsNo targets recorded. Patient [...] n nausea Not available Not available 08/12/2022 03768 3 RxNorm Lula Camacho MD [address] [place] [address],[address], [place], [address], [facility] 3 16:51:49 1995 Augmentin medicatio n Not available Not available Not available 08/12/2022 70596 2 RxNorm got mouth sores Lula Camacho MD [address] [place] [address],[address], [place], [address], [facility] 3 16:52:05 1996 acetamino phen medicatio n Not available Not available Not available 08/12/2022 161 RxNorm Not Available [facility] - production 4 03:45:01 1997 simvastat in medicatio n Not available Not available Not available 08/12/2022 05421 RxNorm Lula Camacho MD [address] [place] [address],[address], [place], [address], [facility] 3 16:52:28 Medications Name Sig Start Date [...] Pulse oximetry Respiratory rate Heart rate Systolic And Diastolic Provider Name and Address Organization Details Last Updated DateTime 4 98.4 [degF] 68488.5 12 g 98 % 98 % 18 /min 90 /min 104/64 mm[Hg] Not Available [employer] production 4 21:02:10 Date Recorded Respiratory rate Body weight Oxygen saturation Oxygen saturation in Arterial blood by Pulse oximetry Body temperature Body height Heart rate Systolic And Diastolic Systolic And Diastolic Provider Name and Address Organization Details Last Updated DateTime 4 14 /min 46923.9 6 g 76 % 76 % 98.5 [degF] 165.1 cm 74 /min 98/64 mm[Hg] 95/56 mm[Hg] Not Available [employer] 4 20:24:53 Date Recorded Oxygen saturation Oxygen saturation in Arterial blood by Pulse oximetry Respiratory rate Heart rate Body temperature Systolic And Diastolic Provider Name and Address Organization Details Last Updated DateTime 4 97 % 97 % 16 /min 80 /min 98.1 [degF] 110/64 mm[Hg] Not Available [employer] 4 19:12:03 Date Recorded Body temperature Respiratory rate Oxygen saturation Oxygen saturation in Arterial blood by Pulse oximetry Heart rate Systolic And Diastolic Provider Name and Address Organization Details Last Updated DateTime 4 98.4 [degF] 16 /min 98 % 98 % 86 /min 100/68 mm[Hg] Not Available [employer] 4 16:25:08 Date Recorded Respiratory rate Heart rate Oxygen saturation Oxygen saturation in Arterial blood by Pulse oximetry Body temperature Systolic And Diastolic Provider Name and Address Organization Details Last Updated DateTime 4 16 /min 88 /min 96 % 96 % 96 [degF] 97/63 mm[Hg] Not Available [employer] 4 17:24:48 Social History None recorded. Functional [...] [id number] Tha Pierson MD Main - [facility] [address] [place] [phone] 03/24/2022 17:56:02 04/01/2022 18:48:22 Abdominal pain 87174595 R10.9 4587 Amaury Kent MD Main - [facility] [address] [place] [phone] 0 03/26/2022 17:40:48 03/30/2022 12:00:01 Abdominal pain 87062580 R10.9 No red flag signs or kidney problems. Will give Toradol 15mg IM x1 [id number] Jordan Chapman MD Main - [facility] [address] [place] [phone] 04/02/2022 17:07:08 04/03/2022 15:18:36 Urinary bladder pain 11273429 R39.82 Patient with exacerbati on of chronic abdominal pain which is attributed to interstiti al cystitis. She is planned for a surgical procedure for this soon. She got relief from toradol at a recent [facility] visit for same symptoms. No history of GI bleeding or chronic kidney disease.Rx toradol IM 15mg x1 [id number] Nelly Pérez MD Main - [facility] [address] [place] [phone] 0 04/08/2022 14:02:49 04/14/2022 16:18:59 Chronic interstitial cystitis 980034095 N30.10 57 year old female, being evaluated for chronic bladder pain. Per data gathered by data systems manager, patient with chronic bladder pain without dysuria, scheduled for a surgical procedure next week. Her symptoms are at baseline, and she is tolerating PO. Her exam is notable for normal vital signs. Cannot take PO NSAIDS, however recalls IM toradol helpful in the past - dose given again today. FU PCP as needed. 5214 Nelly Pérez MD [facility] [address] [place] [phone] 0 04/22/2022 17:19:46 04/23/2022 11:41:13 Pain in right foot [id number] 09157 M79.671 57 year old female being evaluated [...] 5464 Kylee Hill MD Main - [facility] [address] [place] [phone] 05/03/2022 16:25:00 05/05/2022 09:08:24 Pain in left foot [id number] 67494 M79.672 57 yo F w/ known metatarsal [...] 8142 Lula Camacho MD Main - [facility] [address] [place] [phone] 08/12/2022 15:46:28 08/14/2022 09:39:18 Candidiasis of skin 22548481 B37.2 likely cause of rash Increased frequency of urination 350969160 R35.0 PAT NOT clinically dehydrated -not hyperglyce opal -states has hx non infectious cystitis- has appt w/ urology 09/07- requesting ketorolac for pain- has no hx CKD/ has tolerated 30 mg IM before( previous [facility] visits)- get GI upset w/ nsaids not true allergy- UA dip neg- no signs of infection/ no culture sent- advised to call pcp tomorrow to d/w them pain management and to call uro to see if they can move up appt. Advised if gets fever/ severe abd or back pain/vomit ing to go to the ER [id number] Derik Bingham MD Main - [facility] [address] [place] [phone] 0 08/17/2022 11:11:00 08/19/2022 09:27:13 Chronic interstitial cystitis 151300448 N30.10 Localized eruption of skin 526336237 R21 [id number] Kylee Hill MD Main - [facility] [address] [place] [phone] 08/28/2022 22:03:08 08/31/2022 11:13:17 Chronic interstitial cystitis 091827233 N30.10 long standing diagnosis c/b chronic pain. Recieves toradol occasional ly with good effect. No fevers/chi lls/hematu sofi. Will administer 30mg toradol, but advised pt to discuss timing of additional NSAIDs with surgical team as she is planned for surgery in 10d. will also prescribe 4d zofran for intermitte nt chornic nausea associated to chronic cystitis. Qtc<500. Of note, prescripti on called into [facility] over the phone 07/16 EMR malnctio n [id number] Angie Amador MD Main - [facility] [address] [place] [phone] 0 10/11/2022 16:10:03 10/12/2022 10:16:13 Abdominal pain 95672483 R10.9 Chronic low back pain 27 5776818 M54.50 Pain 83160460 R52 [id number] Derik Bingham MD Main - [facility] [address] [place] [address] [phone] 0 10/16/2022 17:37:00 10/19/2022 09:55:32 Right upper quadrant pain 347811195 R10.11 [id number] Jareth David MD Main - [facility] [address] [place] [phone] 0 10/29/2022 17:40:14 10/30/2022 08:56:05 Generalized abdominal pain 752672983 R10.84 This 57-year-ol d female had a [...] PCP. The patient agreed with this plan. [id number] Amaury Kent MD Main - [facility] [address] [place] [phone] 0 10/31/2022 15:42:54 11/03/2022 13:02:01 Generalized abdominal pain 052212963 R10.84 Generalize d abdominal pain similar to prior episodes. Mild nausea and sxs of dehydratio n, poor fluid intake. Had normal BMP on prior visit. Tolerated IVF, Zofran, Toradol in the past. No red flag signs. Will reorder. [id number] Leander Rosa MD Main - [facility] [address] [place] [phone] 0 11/04/2022 14:24:04 11/06/2022 13:41:01 Abdominal pain 25331845 R10.9 [id number] Kylee Hill MD Main - [facility] [address] [place] [phone] 11/15/2022 15:34:46 11/25/2022 10:16:27 Chronic interstitial cystitis 498978738 N30.10 case supervised and discussed with data systems manager. Patient was given opportunit y to ask questions, warning signs/symp toms of pertinent medical emergency reviewed. long standing diagnosis c/b chronic pain. Recieves toradol occasional ly with good effect. No fevers/chi lls/hematu sofi. Will administer 30mg toradol [id number] Latosha Pressley MD Main - [facility] [address] [place] [phone] 11/23/2022 20:46:17 11/24/2022 10:07:44 Chronic interstitial cystitis 521706650 N30.10 [id number] Amaury Kent MD Main - [facility] [address] [place] [address] [phone] 0 11/28/2022 16:57:59 11/28/2022 23:15:41 Chronic interstitial cystitis 479505979 N30.10 Has upcoming cystocscop y, amenable to 30mg IM Toradol now Pain 77071161 R52 [id number] Jareth David MD Main - [facility] [address] [place] [phone] 0 12/13/2022 16:50:19 12/14/2022 10:41:58 Essential tremor 068210158 G25.0 This 57-year-ol d female with a history of ulcerative colitis and a resting tremor called [facility] because she thought she might be dehydrated . At the visit her hydration status looked good and her oral intake was adequate. She was advised to follow-up with her PCP. The patient agreed with this plan. [id number] Lula Camacho MD Main - [facility] [address] [place] [phone] 0 02/22/2023 18:33:03 02/23/2023 08:59:17 Abdominal pain 77857321 R10.9 Agree flare of interstiti al cystitis/p porsha has appointmen t to talk to her urologist in 48 hours/but not in person-adv ised since she has not had ketorolac in a while and her H & H are stable-we will give her a dose, however I advised she could develop a reaction to parenteral ketorolac similar to ibuprofen- she verbalized understand ing Hypokalemia 27837534 E87 .6 Unsure of etiology since the [...] and tomorrow - she verbalized she would 05216 Lula Cmaacho MD Main - [address] [phone] 02/24/2023 11:00:53 02/24/2023 12:04:06 Hypokalemia 13580783 E87.6 Unsure of etiology since the patient denies nausea/ vomiting /diarrhea or excessive urine output/ now resolved with po K//lactate is slightly high but these new machines have been reading mildly high on everyone I have taken care of in the past week-doubt significan t given stable exam and vital signs and the fact that she is afebrile. [id number] Amaury Kent MD Main - [facility] [address] [place] [address] [phone] 0 04/15/2023 15:37:09 04/16/2023 12:56:31 Abdominal pain 77186222 R10.9 Acute on chronic. Normal vital signs. No red flag signs or kidney problems. Will give Toradol 30mg IM x1. Discussed red flag signs for which to seek higher level of care. [id number] Sofiya Frye MD Main - [facility] [address] [place] [address] [phone] 0 04/27/2023 21:55:53 04/28/2023 10:39:48 Chronic pain 62194179 G89.29 [id number] Corrie Pryor MD Main - [facility] [address] [place] [address] [phone] 0 05/01/2023 12:37:10 05/02/2023 15:48:01 Chronic interstitial cystitis 320057070 N30.10 Evaluation in the field was performed by my data systems manager colleague, as noted above, I provided [...] shortness of breath, cough, chest pain, fever. [id number] Nelly Pérez MD Main - [facility] [address] [place] [address] [phone] 0 05/10/2023 15:45:31 05/10/2023 22:56:22 Abdominal pain 72015175 R10.9 58 year old female with a [...] assessment and plan as documented by the data systems manager. I provided real-time medical direction for this encounter and was immediatel y available to provide additional phone-base d assistance as needed. We discussed the diagnostic uncertaint y of home visits and associated risks. We discussed the need to seek care urgently/e mergently in the setting of any new or worsening symptoms. [id number] Jareth David MD Main - [facility] [address] [place] [address] [phone] 0 05/18/2023 14:57:58 05/19/2023 10:20:02 Irritable bowel syndrome 82916339 K58.9 This 58-year-ol d female with recurrent GI pain likely due to IBS called today because of pain since this AM. She doesn't tolerate oral pain medication s due to GERD, but she has responded to Toradol in the past. I ordered Toradol 30 mg IM. She will follow-up with her PCP. The patient agreed with this plan. [id number] Kellie Woods MD Main - [facility] [address] [place] [address] [phone] 05/21/2023 12:59:15 05/24/2023 16:53:56 Urinary symptoms 733230740 R39.9 Abdominal pain 59928136 R10.9 [id number] NO MATHIS MD Main - [facility] [address] [place] [address] [phone] 0 06/06/2023 11:39:22 06/08/2023 10:04:30 Abdominal pain 31481002 R10.9 Evaluation in the field was performed by my data systems manager colleague, as noted above, I provided [...] abdominal pain Plan:Ketor olac 15 mg IM [id number] to call her GI doctor on Wednesday [...] concerns Latosha Pressley MD Main - [facility] [address] [place] [address] [phone] 0 07/27/2023 17:32:53 07/27/2023 21:48:46 Chronic interstitial cystitis 434673438 N30.10 Sofiya Frye MD Main - [facility] [address] [place] [address] [phone] 07/30/2023 21:02:08 07/31/2023 12:36:08 Spasm of urinary bladder 781204884 N32.89 [id number] Duong Panchal MD Main - [facility] [address] [place] [address] [phone] 0 08/24/2023 20:24:52 08/25/2023 11:16:42 Ulcerative colitis 56333677 K51.90 Patient reports a history of ulcerative colitis followed by GI. She reports that she has abdominal pain consistent with her typical chronic abdominal pain. Denies any new complaints . Reports a recent colonoscop y. No hematochez ia or melena. Requesting ketorolac as that typically resolves her symptoms. Denies any other complaints or concerns. [id number] Nelly Pérez MD Main - [facility] [address] [place] [address] [phone] 0 10/11/2023 19:12:01 10/11/2023 22:15:10 Chronic interstitial cystitis 054568590 N30.10 57 year old female, being evaluated for acute on chronic bladder pain. Per data gathered by data systems manager, patient with chronic bladder pain without [...] assessment and plan as documented by the data systems manager. I provided real-time medical direction for this encounter and was immediatel y available to provide additional phone-base d assistance as needed. We discussed the diagnostic uncertaint y of home visits and associated risks. We discussed the need to seek care urgently/e mergently in the setting of any new or worsening symptoms. [id number] Tha Pierson MD Main - [facility] [address] [place] [address] [phone] 0 01/23/2024 16:25:05 01/24/2024 10:37:03 Abdominal pain 31489058 R10.9 [id number] Nelly Pérez MD Main - [facility] [address] [place] [address] [phone] 0 04/18/2024 17:24:45 04/18/2024 22:03:45 Headache 24769389 R51.9 59 year old female being evaluated [...] assessment and plan as documented by the data systems manager. I provided real-time medical direction for [...] Babb Member ID Guarantor Name 11/04/2022 1 [facility] - DOS PRIOR TO 2022 - DUAL ELIGIBLE (MEDICARE REPLACEMENT/ADV ANTAGE - HMO) Randi Lowery [id number] Randi Lowery 04/18/2024 1 [facility] - DOS ON OR AFTER 2022 - DUAL ELIGIBLE - [employer] AND ONE CARE (MEDICARE REPLACEMENT/ADV ANTAGE - HMO) Randi Lowery [id number] Randi Lowery Notes Date Note Type Note [...] ....................... ....................... ....................... ....................... ....................... ....................... ... Boat Officer Note From Gómez Kumar: Pt co abdominal pain. Has cystitis. Having [facility] Wednesday[facility] with relief ..pt wanting toradol to hold her over for the weekend until surgery. Pt denies urinary symptoms, fever nausea vomiting diarrhea , cp sob, kidney problems. Baseline vitals assessed. [facility] [place] and 30mg toradol IM. Pt education on signs indicating the ER. Boat Officer Allergies: Acetaminophen, Ibuprofen ....................... ....................... ....................... ....................... ....................... ....................... ... Disposition: Fulfilled Sofiya Frye MD [address] [place] [address],[address], [place], [phone], [facility] [employer] 07/30/2023 21:05:26 08/24/2023 text/html CRC Nurse Triage Notes (Dave Cerna): Patient Reports: Inability to tolerate foods, fluids or daily medications Denies: Vague abdominal pain greater than 24 hours Nausea with or without vomiting Chief Complaints: Weakness/Lethargy, Dehydration, Abdominal Pain PMH: COPD/Asthma Allergies: Acetaminophen, Ibuprofen Comments: Control System Manager verified the member's name//address and phone number. [...] ....................... ....................... ....................... ....................... ....................... ....................... ... Boat Officer Note From Spencer Reis: 58 yo F [...] but pt needs to follow up with refinisher to not just mask the pain but cure the main issue. 30mg given left deltoid. explained risks of senior care use of Toradol/NSAIDs. discussed red flags with pt and friend. ....................... ....................... ....................... ....................... ....................... ....................... ... Disposition: Fulfilled Duong Panchal MD [address] [facility],[address], [place], [phone], [employer] 08/24/2023 22:57:14 10/11/2023 text/html CRC Nurse Triage Notes (Mayra Jaime): Reason For Request: Pt reporting introsystalitis, pain, nausea (for a couple days), states bladder surgery for next week>is requesting toradol and zofran Chief Complaints: Nausea/Vomiting, Pain PMH: COPD/Asthma Allergies: Acetaminophen, Ibuprofen Comments: Control System Manager verified the member's name//address and phone number. [...] ....................... ....................... ....................... ....................... ....................... ....................... ... Boat Officer Note From Corey Moralez: Pt reporting acute [...] ....................... ... Disposition: Fulfilled Nelly Pérez MD [address] [place] [address],[address], [place], [phone], [facility] 10/11/2023 21:24:08 01/23/2024 text/html CRC Nurse Triage [...] got in contact with mbr around 1450. Control System Manager verified the member's name//address and phone number. Mbr reporting generalized abdominal discomfort as well as nausea on going for the last few hours. Mbr reports awaiting bladder surgery which is scheduled for next month. [facility] has been seen in the past by Oscar for similar and [facility] Toradol has worked well for her pain in the past. Education provided on the response time and the member was advised to monitor reported s/s and seek emergency treatment if needed -Abdullahi Moeller RN ....................... ....................... ....................... ....................... ....................... ....................... ... Boat Officer Note From Yennifer Celeste: Pt reports 2-3 days of nausea, vomiting with lower abd pain. A&ox3, vss, afebrile; cramping in lower quadrants, mildly painful on palpation, denies cp, sob, back or flank pain, headache, dizziness, lightheadedness. [facility] consulted, 4mg zofran and 15mg toradol IM administered. Pt will follow up with pcp Wednesday. Red flags reviewed. Boat Officer Allergies: Acetaminophen, Ibuprofen ....................... ....................... ....................... ....................... ....................... ....................... ... Disposition: Fulfilled Tha Pierson MD [address] [place] [address],[address], [place], [phone], [employer] 01/23/2024 18:50:39 04/18/2024 text/html CRC Nurse Triage [...] ....................... ....................... ....................... ....................... ....................... ....................... ... Boat Officer Note From Corey Moralez: This 59-year-old female [...] fevers, nausea, vomiting, diarrhea. She reports that she s eating and drinking normally.Patient presents awake and alert, and no acute distress. Her vital signs are reasonably stable, patient reports baseline hypotension. She is afebrile. Nonfocal neurological exam. Normal gait. Pupils 4 mm +PERRLA. Lungs are clear throughout auscultation. Abdomen is soft, nontender, nondistended. No lower extremity edema.[facility] [place] and patient treated with ketorolac 30 [...] ....................... ....................... ....................... ....................... ....................... ....................... ... [facility] Consulted: Nelly Pérez ....................... ....................... ....................... ....................... ....................... ....................... ... Disposition: Fulfilled Nelly Pérez MD [address] [facility],[address], [place], [phone], [employer] 04/18/2024 19:46:24 OBGyn Episode No OBEpisode recorded.
--- NOTE | 2025-01-04 13:58 | ED.FEMALEGU ---
HPI - Female Genitourinary General Chief complaint: Urogenital-Female Stated complaint: SHARP PELVIC PAIN X1D,MILD NAUSEA PER EMS Time Seen by Provider: 01/04/25 13:44 Source: patient and EMS Mode of arrival: EMS Limitations: no limitations History of Present Illness ED Provider: DR. Velez HPI Narrative: 60-year-old female with history of chronic interstitial cystitis without chronic hematuria, frequent urologist evaluation with frequent hydrodistention procedure done by Dr. Cornelius for the past many years who prescribed her oxycodone to control her pain when she has a flare up patient usually take oxycodone twice a day, tried to contact Dr. Cornelius who was on vacation and was told to come to the ED for evaluation of her pelvic pain. +dysuria + frequency urination. No nausea, no vomiting, no diarrhea, passing flatus, colostomy bag is functioning with good drainage daily. Related Data Home Medications ?Medication ?Instructions ?Recorded ?Confirmed albuterol sulfate 90 mcg/actuation 2 puff inhalation Q4-6H PRN 04/25/20 10/09/24 aerosol inhaler (ProAir HFA) Shortness Of Breath metoprolol succinate 25 mg 12.5 mg PO DAILY 08/08/21 10/09/24 tablet,extended release 24 hr omeprazole 20 mg capsule,delayed 20 mg PO DAILY 11/03/21 10/09/24 release trazodone 50 mg tablet 50 mg PO BEDTIME 10/15/23 10/09/24 lorazepam 0.5 mg tablet 0.5 mg PO NEEDED PRN Anxiety 04/07/24 10/09/24 trazodone 100 mg tablet 100 mg PO BEDTIME 04/07/24 10/09/24 primidone 50 mg tablet 50 mg PO BID 06/13/24 10/09/24 Previous Rx's ?Medication ?Instructions ?Recorded cyclobenzaprine 5 mg tablet 5 mg PO BEDTIME PRN muscle spasm 07/08/24 #14 tabs oxycodone 5 mg tablet 5 mg PO TID PRN pain 2 days #6 tabs 08/11/24 ferrous sulfate 325 mg (65 mg 325 mg PO DAILY #90 tabs 09/06/24 iron) tablet oxybutynin chloride 5 mg 5 mg PO DAILY 30 days #30 tabs 12/11/24 tablet,extended release 24 hr oxycodone 5 mg tablet 5 mg PO BID pain 14 days #28 tabs 12/20/24 oxycodone 5 mg tablet 5 mg PO BID PRN pain #14 tabs 01/04/25 Allergies Allergy/AdvReac Type Severity Reaction Status Date / Time amoxicillin (From AUGMENTIN) Allergy Severe SEVERE Verified 01/04/25 13:09 DIARRHEA [id number]-[id number]-[id number] Reductase Allergy Intermediate muscle Verified 01/04/25 13:09 Inhibitor ([id number] aches, REDUCTASE INHIBITOR) cramps acetaminophen (ACETAMINOPHEN) AdvReac Severe GI upset. Verified 01/04/25 13:09 Pt confirmed NOT allergic to oxycodone NSAIDS (Non-Steroidal AdvReac Severe Gastrointestinal Verified 01/04/25 13:09 Anti-Inflamma Upset oxycodone (From Percocet) AdvReac Gastrointestinal Verified 01/04/25 13:09 Upset Review of Systems Review of Systems: All other systems are reviewed and are negative Constitutional: Reports as per HPI and Reports no additional constitutional complaints Eyes: Reports as per HPI and Reports no additional eye complaints Reports system reviewed and no additional complaints, except as documented Cardiovascular: Reports as per HPI and Reports no additional cardiovascular complaints Respiratory: Reports as per HPI and Reports no additional respiratory complaints Gastrointestinal: Reports as per HPI and Reports no additional gastrointestinal complaints Genitourinary: Reports no additional female genitourinary complaints Musculoskeletal: Reports no additional musculoskeletal complaints Skin/Breast: Reports system reviewed and no additional complaints, except as docu Psychiatric: Reports no additional psychiatric complaints Endocrine: Reports no additional endocrine complaints Hematologic/Lymphatic: Reports no additional hematologic/lymphatic complaints Allergic/Immunologic: Reports no additional allergic/immunologic complaints Reports system reviewed and no additional complaints, except as documented and Reports Abnormal speech present [facility] Past Medical History Medical History Sacral nerve stimulator present Colostomy in place On beta morgan at home Anxiety SVT (supraventricular tachycardia) Depression Back pain History of gastrostomy tube placement Hx of ulcerative colitis Hx of cystitis History of anxiety Asthma Elevated cholesterol Surgical History History of bowel diversion surgery History of tubal ligation History of endometrial ablation History of bladder surgery Social History Social History Household Members: Significant Other Household Members Other:: s.o can stay to help when needed Housing: Apartment Are you a primary care director rn to a significant other at home: No Do you presently have visiting nurse or other home services: No Alcohol intake: former Patient Tobacco Use Status: Current everyday Tobacco user Tobacco use type: Cigarette Cigarettes Per Day: 4 Years Smoked: 25 Smoked in Last 30 Days: Yes Use of substances other than those prescribed or required for medical reasons: No Advance Directives: No Advance Directives Information Provided: Yes Do you have a plan to hurt others: No Plan Patient : No Current occupational status: disabled Physical Exam Vital Signs: Vital Signs: Last Vital Signs Temp 97.6 F 01/04/25 16:50 Pulse 63 01/04/25 16:50 Resp 14 01/04/25 16:50 BP 131/77 01/04/25 16:50 Pulse Ox 95 01/04/25 16:50 O2 Del Method Room Air 01/04/25 16:50 BMI result Body Mass Index 20.8 Vital signs have been reviewed and appear to be correct. Blood pressure elevated. Heart rate normal. Respiratory rate normal. Temperature normal. Oxygen saturation normal. Appearance: Alert. Oriented X3. No acute distress. Head: Normal external exam. Normocephalic. Atraumatic. No Vang signs noted. No raccoon eyes noted Eyes: PERRLA. EOMI. Conjunctiva and sclera normal. Eyelids normal. ENT: TM's Normal. Pharynx normal. Uvula midline. Moist mucous membranes. No trismus noted. No drooling noted. No muffled voice noted. Neck: Normal inspection. Neck supple. FROM. No adenopathy. Thyroid Normal. No meningeal signs. No neck mass noted. CVS: Normal heart rate and rhythm. Heart sound normal. No murmurs noted. Pulses normal throughout. Respiratory: No respiratory distress. Painless inspiration. Breath sounds normal. No wheezes/rales/rhonchi noted. Chest nontender. No accessory muscle usage noted or decreased air movement noted. Abdomen: Soft and nontender. Bowel sounds normal in all 4 quadrants. No distention noted. No organomegaly noted. No visible injury noted. Back: No CVA tenderness. Full range of motion noted. Skin: Skin warm and dry. Normal skin color. Normal skin turgor. No rashes/lesions/lacerations noted. Extremities: No lower extremity edema. Extremities exhibit normal range of motion. Extremities nontender. Neuro: Oriented X 3. Cranial nerve exam: II-XII are grossly intact No motor deficit. No sensory deficit. Reflexes normal. Course Reevaluation(s) Reevaluation #1: Acute exacerbation of chronic pelvic pain secondary to interstitial cystitis, UA shows UTI, CT abdomen pelvis is showing nonspecific thickening of proximal jejunum which is unspecific patient was instructed to follow-up with PCP. Patient will call Dr. Cornelius when he come back from vacation to arrange for appointment next week. Time: 17:40 Medications Administered Discontinued Medications Generic Name Dose Route Start Last Admin Trade Name Freq PRN Reason Stop Dose Admin Iohexol 85 ml 01/04/25 16:26 01/04/25 16:26 Iohexol 350 Mg/Ml 100 Ml Infus..Btl IV 01/04/25 16:27 85 ml ONCE ONE Administration Morphine Sulfate 2 mg 01/04/25 16:13 01/04/25 16:48 Morphine Sulfate 2 Mg/Ml Cartridge IVPUSH 01/04/25 16:14 2 mg ONCE ONE Administration Protocol Oxycodone HCl 5 mg 01/04/25 14:03 01/04/25 14:20 Oxycodone Hcl Immed Release 5 Mg Tablet PO 01/04/25 14:04 5 mg ONCE ONE Administration Medical Decision Making Differential Diagnosis Differential Diagnoses: The differential diagnosis associated with the presentation includes (Acute on chronic pelvic pain, UTI, interstitial cystitis, colitis, diverticulitis, electrolyte derangement, severe anemia.) Admission/Observation Consideration of admission/observation: Escalation of care including admission/observation considered Lab Data MDM Lab Attestation statement: I reviewed the patient's lab results. 01/04/25 15:16 01/04/25 15:16 Labs: Lab Results 01/04/25 01/04/25 Range/Units 14:02 15:16 WBC 6.6 (4.8-10.8) X10*3/uL RBC 4.68 D (4.20-5.50) X10*6/uL Hgb 13.7 D (12.0-16.0) g/dl Hct 40.0 D (37.0-47.0) % MCV 85.5 (80.0-98.0) fL MCH 29.3 (27.0-33.0) pg MCHC 34.3 (31.0-35.0) g/dl RDW 16.1 H (11.0-16.0) % Plt Count 182 D (160-400) X10*3/uL MPV 9.7 (9.4-12.3) fL Immature Gran % (Auto) 0.2 (0.0-0.4) % Neut % (Auto) 52.8 (45-73) % Lymph % (Auto) 38.7 (20-40) % [place] % (Auto) 6.9 (2-11) % Eos % (Auto) 0.9 (0-4) % Baso % (Auto) 0.5 (0-2) % Lymph # (Auto) 2.6 (1.2-4.9) X10*3/uL [place] # (Auto) 0.5 (0.1-1.2) X10*3/uL Eos # (Auto) 0.1 (0.0-0.4) X10*3/uL Baso # (Auto) 0.0 (0.0-0.2) X10*3/uL Abs Immat Gran (auto) 0.01 (0.00-0.03) X10*3/uL Absolute Neuts (auto) 3.5 (2.0-8.3) x10*3/uL Absolute Nucleated RBC 0.000 (0.0-0.012) X10*3/uL Nucleated RBC % (auto) 0.0 (0.0-0.2) /100WBC Sodium 138 (135-145) mmol/L Potassium 4.1 (3.3-5.1) mmol/L Chloride 106 (96-108) mmol/L Carbon Dioxide 25 (22-29) mmol/L Anion Gap 11 L (12-20) BUN 24 H (9-16) mg/dL Creatinine 0.79 (0.5-1.4) mg/dL Estim Creat Clear Calc 67.7 Estimated GFR > 60 Random Glucose 102 (60-115) mg/dL Calcium 9.5 D (8.4-10.2) mg/dL Total Bilirubin 0.1 (0.0-1.0) mg/dL AST 17 (5-31) U/L ALT 14 (0-31) U/L Alkaline Phosphatase 117 (39-117) U/L Total Protein 6.7 (6.5-8.0) g/dL Albumin 4.0 (3.5-5.0) g/dL Urine Color Yellow Urine Appearance Clear Urine pH 5.5 (5.0-9.0) Ur Specific [place] 1.015 (1.005-1.025) Urine Protein Negative (Neg-Trace) mg/dL Urine Glucose (UA) Negative (Negative) mg/dL Urine Ketones Negative (Negative) mg/dL Urine Blood Negative (Negative) Urine Nitrite Negative (Negative) Ur Leukocyte Esterase Negative (Negative) Independent Interpretation I performed an independent interpretation of an: CT Scan (Abdomen pelvis:The proximal jejunum appears thick walled and borderline dilated. The appearance is nonspecific. This can be related to infection, but ischemia and inflammatory bowel disease are not ruled out. Neoplasm is unlikely. Right lower quadrant ileostomy appears unchanged. Stable gun synchronizer) Radiology Impression Discussion of test interpretation with radiology: I have reviewed the radiologist's reading. Chronic Conditions Patient?s care impacted by: Other (Interstitial cystitis) Discharge Plan Discharge Clinical Impression: Interstitial cystitis, Chronic pain in female pelvis Patient Disposition: Home, Self-Care Instructions: Interstitial Cystitis (ED) Additional Instructions: Drink plenty of fluids. Prescriptions: New oxycodone 5 mg tablet 5 mg PO BID PRN (Reason: pain) Qty: 14 0RF Rx Instructions: Partial Fill upon patient request. No Action oxybutynin chloride 5 mg tablet extended release 24hr 5 mg PO DAILY 30 Days Qty: 30 1RF oxycodone 5 mg tablet 5 mg PO BID 14 Days Qty: 28 0RF Rx Instructions: Partial Fill upon patient request. albuterol sulfate [ProAir HFA] 90 mcg/actuation Hfa Aerosol Inhaler 2 puff INHALATION Q4-6H PRN (Reason: Shortness Of Breath) trazodone 50 mg tablet 50 mg PO BEDTIME cyclobenzaprine 5 mg tablet 5 mg PO BEDTIME PRN (Reason: muscle spasm) Qty: 14 0RF ferrous sulfate 325 mg (65 mg iron) tablet 325 mg PO DAILY Qty: 90 2RF metoprolol succinate 25 mg tablet extended release 24 hr 12.5 mg PO DAILY omeprazole 20 mg capsule,delayed release(DR/EC) 20 mg PO DAILY primidone 50 mg tablet 50 mg PO BID oxycodone 5 mg tablet 5 mg PO TID PRN (Reason: pain) 2 Days Qty: 6 0RF Rx Instructions: Partial Fill upon patient request. lorazepam 0.5 mg tablet 0.5 mg PO NEEDED PRN (Reason: Anxiety) trazodone 100 mg tablet 100 mg PO BEDTIME Referrals: Brett Su MD [Primary Care Provider, Medical] Mk Cornelius MD [Physician, Urology] Print Language: Maori
[2025-01-04] MEDS: oxyCODONE HCl Immed Release 5 MG TABLET PO (14:20)
[2025-01-04 14:25] LABS: Appearance Urine Clear; Glucose Urine UA Negative (Negative); PH 5.5 (5.0-9.0); Specific Gravity - Urine 1.015 (1.005-1.025)
[2025-01-04 15:23] LABS: Hematocrit 40.0 % (37.0-47.0); Hemoglobin 13.7 g/dl (12.0-16.0); Imm Gran Abs Auto 0.01 X10*3/uL (0.00-0.03); Imm Gran Pct Auto 0.2 % (0.0-0.4); Lymphocytes Absolute Auto 2.6 X10*3/uL (1.2-4.9); Mean Corpuscular HGB Conc 34.3 g/dl (31.0-35.0); Mean Corpuscular Hemoglobin 29.3 pg (27.0-33.0); Mean Corpuscular Volume 85.5 fL (80.0-98.0); NRBC Abs Auto 0.000 X10*3/uL (0.0-0.012); NRBC Pct Auto 0.0 /100WBC (0.0-0.2); Platelet Count 182 X10*3/uL (160-400); Red Blood Count 4.68 X10*6/uL (4.20-5.50); White Blood Count 6.6 X10*3/uL (4.8-10.8)
[2025-01-04 15:26] VITALS: BP 120/69; PULSE 62; RESP 16; TEMP 36.4; O2SAT 96
[2025-01-04 15:26] LABS: MANUAL DIFF FLAG NO
[2025-01-04 15:51] LABS: Alanine Aminotransferase 14 U/L (0-31); Albumin Level 4.0 g/dL (3.5-5.0); Alkaline Phosphatase 117 U/L (39-117); Anion Gap 11 (12-20); Aspartate Amino Transferase 17 U/L (5-31); Blood Urea Nitrogen 24 mg/dL (9-16); Calcium 9.5 mg/dL (8.4-10.2); Carbon Dioxide 25 mmol/L (22-29); Chloride 106 mmol/L (96-108); Creatinine Clr Calc Pharmacy 67.7; Estimated Glomerular Filt Rate > 60; Potassium 4.1 mmol/L (3.3-5.1); Sodium 138 mmol/L (135-145); Total Protein 6.7 g/dL (6.5-8.0)
[2025-01-04] MEDS: iohexoL 350 MG/ML 100 ML INFUS..BTL 85 ML IV (16:26)
[2025-01-04 16:48] VITALS: RESP 14
[2025-01-04 16:50] VITALS: BP 131/77; PULSE 63; RESP 14; TEMP 36.4; O2SAT 95
[2025-01-04 17:45] VITALS: BP 140/63; PULSE 72; RESP 16; TEMP 36.6; O2SAT 95
== END 2025-01-04 18:02 | disposition home or self-care (01) ==
PROVIDERS: Physician Assistant Medical; Emergency Provider Emergency Medicine; PCP Internal Medicine
DX: N30.10 Interstitial cystitis (chronic) without hematuria (principal); R10.2 Pelvic and perineal pain; Z72.0 Tobacco use; Z93.3 Colostomy status; Z79.899 Other long term (current) drug therapy
CPT/HCPCS: 36415; 74177; 80053; 81003; 85025; 96374; 99284; J2270; Q9967

== ENCOUNTER → 2025-01-04 14:03 | Outpatient (BNV) | payer OTHER, SELFPAY | PROVIDERS: Emergency Provider Emergency Medicine; PCP Internal Medicine; Visit Provider Radiology Diagnostic Radiology | DX: N28.1 Cyst of kidney, acquired (principal) | CPT/HCPCS: 74177 ==

== ENCOUNTER 2025-01-25 09:13 | Emergency (ER) | payer OTHER, SELFPAY ==
--- OUTSIDE RECORDS SUMMARY | 2025-01-19 23:59 | XMS_ITS | Continuity of Care Document ---
Author Organization [facility] Bruce Sarath lt Address [address] [place] [id number]- Care Team Providers Care Hot Stick Man Name Role Phone Sharlene STEWART, Brett Araujo Primary Care Physician [place] [facility] [place]/25 [facility] [address] [place] [address]- Encounter Type: Triage Allergies, Adverse Reactions, Alerts Substance Criticality Severity Reaction Reaction Severity Status ibuprofen 1 Diarrhea Nausea Active simvastatin Unknown Aching muscles Active acetaminophen 2, 3 Unknown Nausea Resolved aspirin stomach problems Active Percocet 7.5/325 Unable to assess criticality [...] Given pneumococcal 20-valent conjugate vaccine 01/18/23 Recorded [id number] 12y+ bivalent booster vax 01/27/23 Recorded tetanus-diphtheria toxoids (Td) 07/16/21 Given SARS-CoV-2 mRNA ([id number]) vax 07/16/21 Given Influenza Virus Vaccine (oldterm) [...] Given 1Result Comment: [03/08/2017] [facility] [place] 2Location History: [facility] 3Admin Note: center pharmacy [facility] [place] 4Admin Note: per pt rcvd ekl[facility]where 5Admin [...] each, 5 Refills, Maintenance,10/17/24 4:32:00 PM EDT, [facility]/pharmacy #[id number], 25, 2 puffs Inhalation Every 6 hours,PRN: NEEDED FOR WHEEZING, 165, cm, 10/16/24 17:32:00 EDT, Height, 59.1, kg, 10/16/24 17:32:00 EDT, Dry Weight Start Date: 10/17/24 Status: Ordered Quantity: 8.5 Unit: each Repeat number: 6 Barrier rings ([id number]) Barrier rings ([id number]), See Instructions, # 20 each, Refills 11, Tot. Refills 11, Maintenance, use as needed for ostomy maintaince. Dx ileostomy Z93.2, 11/27/24 8:52:00 AM EDT, Supply Start Date: 11/27/24 Status: Ordered Quantity: 20.0 Unit: each Repeat number: 12 Barrier strips ([id number]) Barrier strips (185101), See Instructions, # 40 each, Refills 11, [...] each Repeat number: 12 Coloplast pre-cut bags (82173) Coloplast pre-cut bags (01102), See Instructions, # 20 each, Refills 11, Tot. Refills 11, Maintenance, Use as needed for ostomy maintaince. Dx ileostomy Z93.2, 01/08/25 12:00:00 PM EDT, Supply Start Date: 01/08/25 Status: Ordered Quantity: 20.0 Unit: each Repeat number: 12 Coloplast pre-cut bags (39245) Coloplast pre-cut bags (56266), See Instructions, # 20 each, Refills 11, Tot. Refills 11, Maintenance, use as needed for ostomy maintaince. Dx ileostomy Z93.2, 11/27/24 8:52:00 AM EDT, Supply Start Date: 11/27/24 Status: Ordered Quantity: 20.0 Unit: each Repeat number: 12 cyanocobalamin 1000 mcg oral tablet 1,000 mcg, By Mouth, Daily, # 90 tablet, Refills 3, Tot. Refills 3, Maintenance, 01/02/25 3:31:00 PMEDT, Route to Pharmacy Electronically, [facility]/pharmacy #[id number], Partial fill upon patient request if theprescription is for a schedule II opioid drug., 165, cm, 12/30/24 13:31:00 EDT, Height, 55.9, kg, 12/30/24 13:31:00 EDT, Dry Weight Start Date: 01/02/25 Stop Date: 12/28/25 Status: Ordered Quantity: 90.0 Unit: tablet Repeat number: 4 cyclobenzaprine 5 mg oral tablet 1 tablet, By Mouth, Daily at bedtime, PRN NEEDED FOR SPASM, FURTHER REFILLS REQUIRE AN OFFICE VISIT, # 14 tablet, 0 Refills, Maintenance, 11/20/24 8:35:00 AM EDT, [facility]/pharmacy #[id number], 165, cm, 11/18/24 15:48:00 EDT, [...] tablet, Refills 3, Tot. Refills 3, Maintenance, 01/02/25 3:31:00 PM EDT,Route to Pharmacy Electronically, [facility]/pharmacy #[id number], Partial fill upon patient request if the prescription is for a schedule II opioid drug., 165, cm, 12/30/24 13:31:00 EDT, Height, 55.9, kg, 12/30/24 13:31:00 EDT, Dry Weight Start Date: 01/02/25 Status: Ordered Quantity: 90.0 Unit: tablet Repeat number: 4 Goose neck lamp Goose neck lamp, See [...] Refills, Maintenance, 12/12/24 2:03:00 PM EDT, Film, [facility]/pharmacy #[id number], Partial fill upon patient [...] Maintenance, 09/13/24 4:27:00 PM EDT, Tablet, [facility]/pharmacy #[id number], Partial fill upon patient [...] 12:05:00 PM EDT, Route to Pharmacy Electronically, [facility]/pharmacy #[id number], Partial fill upon patient requestif [...] Quantity: 1.0 Unit: each Repeat number: 12 omeprazole 20 mg oral delayed release tablet 1 tablet = 20 mg, By Mouth, 2 times a day, # 60 tablet, 3 Refills, Maintenance, 01/12/25 11:31:00 AM EDT, EC Tablet, [facility]/pharmacy #[id number], Partial fill upon patient request if the prescription is for a schedule II opioid drug., 165, cm, 01/11/25 7:49:00 EDT, Height, 55.1, kg, 01/11/25 7:16:00 EDT, Dry Weight Start Date: 01/12/25 Stop Date: 05/12/25 Status: Ordered Quantity: 60.0 Unit: tablet Repeat number: 4 ondansetron 4 mg oral tablet, disintegrating 1 tablet = 4 mg, By Mouth, Every 8 hours, PRN Nausea & Vomiting, # 20 tablet, 0 Refills, Maintenance, 12/25/24 12:56:00 AM EDT, Tablet, [facility]/pharmacy #[id number], Partial fill upon patient [...] Date: 11/12/24 Status: Ordered Repeat number: 1 primidone 50 [...] PM EDT, Route to Pharmacy Electronically, [facility]/pharmacy #[id number], 163, cm, 03/17/24 15:48:00 [...] Team Personnel Name: Yoselyn Mccormick RN Position: [facility] RN Member Role: Primary Care Nurse Name: Gladys Koenig RN Position: [facility] RN Member Role: Primary Care Nurse Name: Rand Baez RN Position: [facility] RN Member Role: Primary Care Nurse Name: Bethany Soares RN Position: [facility] RN Member Role: Primary Care Nurse Name: Pam Harmon RN Position: S RN Member Role: Primary Care Nurse Name: Graciela Harmon RN Position: S RN Member Role: Primary Care Nurse Name: Wenceslao Perez RN Position: [facility] RN Member Role: Primary Care Nurse Name: Stella Ramos RN Position: [facility] RN Member Role: Primary Care Nurse Name: Brett Su MD Position: [facility] Physician - Primary Care Member Role: PCP Address: [address] [place] [id number]- Telecom: Name: Vangie Chun RN Position: [facility] RN Member Role: Primary Care Nurse Name: Leidy Gray RN Position: [facility] RN Member Role: Primary Care Nurse Name: Jimbo Boswell RN Position: [facility] SN RN Member Role: Primary Care Nurse Name: James Alvarez RN Position: [facility] RN Member Role: Primary Care Nurse Name: Milena Rios RN Position: [facility] RN Member Role: Primary Care Nurse Name: Oralia Ashley RN Position: [facility] RN Member Role: Primary Care Nurse Name: Phyllis Holman RN Position: [facility] RN Member Role: Primary Care Nurse Name: Raya Jewell RN Position: [facility] RN Member Role: Primary Care Nurse Name: Gamaliel Shipman RN Position: [facility] RN Member Role: Primary Care Nurse Name: Harini Aponte RN Position: [facility] RN Member Role: Primary Care Nurse Name: Nya Liu RN Position: [facility] RN Member Role: Primary Care Nurse Name: Geri Galvan RN Position: [facility] RN Member Role: Primary Care Nurse Name: Eri Mars RN Position: [facility] RN Member Role: Primary Care Nurse Name: Lula Velasco RN Position: [facility] RN Member Role: Primary Care Nurse Name: Guerline Benavides RN Position: [facility] RN Member Role: Primary Care Nurse Name: Fatimah Galaviz RN Position: [facility] KAREN RN W/OE and Tasks Member Role: Primary Care Nurse Care Team Related Persons Name: KIAN TAMAYO Name: MARTA LEWIS Name: GUERRERO AGUILAR Name: ITALO CORNEJO Insurance Providers Guarantor name: NICOLAS TAMAYO Health Plan Information #: 1 Payer: [facility] Payer Identifier: NA Member Number: [id number] Group Number: [id number] Subscriber Identifier: [id number] Relationship to Subscriber: self Coverage Type: Medicare Managed Care (Includes Medicare Advantage Plans) Coverage Verification Date: NA Telecom: ANAMIKA Address:
--- OUTSIDE RECORDS SUMMARY | 2025-01-19 23:59 | XMS_ITS | Continuity of Care Document ---
Author Organization [facility] Address [address] [place] [address]- Care Team Providers Care Level Vial Sealer Name Role Phone Brett Su MD Primary Care Physician [phone] Encounter [facility] Date(s): 12/20/24 - 01/19/[address] [id number] Encounter Type: Triage Allergies, Adverse Reactions, Alerts Substance Criticality Severity Reaction Reaction Severity Status ibuprofen 1 Diarrhea Nausea Active simvastatin Unknown Aching muscles Active atorvastatin unknown Active acetaminophen 2, 3 Unknown Nausea Resolved aspirin stomach problems Active Augmentin MOUTH SORES Active Tylenol irritated [...] Given pneumococcal 20-valent conjugate vaccine 01/18/23 Recorded [id number] 12y+ bivalent booster vax 01/27/23 Recorded tetanus-diphtheria toxoids (Td) 07/16/21 Given SARS-CoV-2 mRNA ([id number]) vax 07/16/21 Given Influenza Virus Vaccine (oldterm) [...] Given 1Result Comment: [03/08/2017] [facility] [place] 2Location History: [facility] 3Admin Note: center pharmacy [facility] 4Admin Note: per pt rcvd eklsewhere [...] each, 5 Refills, Maintenance,10/17/24 4:32:00 PM EDT, [facility]/pharmacy #1230, 25, 2 puffs Inhalation Every 6 hours,PRN: NEEDED FOR WHEEZING, 165, cm, 10/16/24 17:32:00 EDT, Height, 59.1, kg, 10/16/24 17:32:00 EDT, Dry Weight Start Date: 10/17/24 Status: Ordered Quantity: 8.5 Unit: each Repeat number: 6 Barrier rings (733750) Barrier rings (258743), See Instructions, # 20 each, Refills 11, Tot. Refills 11, Maintenance, use as needed for ostomy maintaince. Dx ileostomy Z93.2, 11/27/24 8:52:00 AM EDT, Supply Start Date: 11/27/24 Status: Ordered Quantity: 20.0 Unit: each Repeat number: 12 Barrier strips (895376) Barrier strips (219350), See Instructions, # 40 each, Refills 11, [...] each Repeat number: 12 Coloplast pre-cut bags (25522) Coloplast pre-cut bags (45230), See Instructions, # 20 each, Refills 11, Tot. Refills 11, Maintenance, Use as needed for ostomy maintaince. Dx ileostomy Z93.2, 01/08/25 12:00:00 PM EDT, Supply Start Date: 01/08/25 Status: Ordered Quantity: 20.0 Unit: each Repeat number: 12 Coloplast pre-cut bags (27698) Coloplast pre-cut bags (83914), See Instructions, # 20 each, Refills 11, Tot. Refills 11, Maintenance, use as needed for ostomy maintaince. Dx ileostomy Z93.2, 11/27/24 8:52:00 AM EDT, Supply Start Date: 11/27/24 Status: Ordered Quantity: 20.0 Unit: each Repeat number: 12 cyanocobalamin 1000 mcg oral tablet 1,000 mcg, By Mouth, Daily, # 90 tablet, Refills 3, Tot. Refills 3, Maintenance, 01/02/25 3:31:00 PMEDT, Route to Pharmacy Electronically, [facility]/pharmacy #1230, Partial fill upon patient request if [...] 0 Refills, Maintenance, 11/20/24 8:35:00 AM EDT, [facility]/pharmacy #1230, 165, cm, 11/18/24 15:48:00 EDT, Height, [...] 01/02/25 3:31:00 PM EDT,Route to Pharmacy Electronically, [facility]/pharmacy #1230, Partial fill upon patient request if [...] Refills, Maintenance, 12/12/24 2:03:00 PM EDT, Film, [facility]/pharmacy #1230, Partial fill upon patient request if [...] Refills, Maintenance, 09/13/24 4:27:00 PM EDT, Tablet, [facility]/pharmacy #1230, Partial fill upon patient request if [...] 12:05:00 PM EDT, [facility] fill upon patient requestif the [...] Maintenance, 01/12/25 11:31:00 AM EDT, EC Tablet, [facility]/pharmacy #1230, Partial fill upon patient request if [...] Refills, Maintenance, 12/25/24 12:56:00 AM EDT, Tablet, [facility]/pharmacy #1230, Partial fill upon patient request if [...] 4:10:00 PM EDT, Route to Pharmacy Electronically, [facility]/pharmacy #1230, 163, cm, 03/17/24 15:48:00 EDT, Height, [...] Team Personnel Name: Yoselyn Mccormick RN Position: [facility] RN Member Role: Primary Care Nurse Name: Gladys Koenig RN Position: [facility] RN Member Role: Primary Care Nurse Name: Rand Baez RN Position: [facility] RN Member Role: Primary Care Nurse Name: Bethany Soares RN Position: [facility] RN Member Role: Primary Care Nurse Name: Pam Harmon RN Position: S RN Member Role: Primary Care Nurse Name: Graciela Harmon RN Position: [facility] RN Member Role: Primary Care Nurse Name: Wenceslao Perez RN Position: [facility] RN Member Role: Primary Care Nurse Name: Stella Ramos RN Position: [facility] RN Member Role: Primary Care Nurse Name: Brett Su MD Position: S Physician - Primary Care Member Role: PCP Address: [address] [place] [address]- Telecom: Name: Vangie Chun RN Position: [facility] RN Member Role: Primary Care Nurse Name: Leidy Gray RN Position: [facility] RN Member Role: Primary Care Nurse Name: Jimbo Boswell RN Position: [facility] SN RN Member Role: Primary Care Nurse Name: James Alvarez RN Position: [facility] RN Member Role: Primary Care Nurse Name: Milena Rios RN Position: [facility] RN Member Role: Primary Care Nurse Name: Oralia Ashley RN Position: [facility] RN Member Role: Primary Care Nurse Name: Phyllis Holman RN Position: [facility] RN Member Role: Primary Care Nurse Name: Raya Jewell RN Position: [facility] RN Member Role: Primary Care Nurse Name: Gamaliel Shipman RN Position: [facility] RN Member Role: Primary Care Nurse Name: Harini Aponte RN Position: [facility] RN Member Role: Primary Care Nurse Name: Nya Liu RN Position: [facility] RN Member Role: Primary Care Nurse Name: Geri Galvan RN Position: [facility] RN Member Role: Primary Care Nurse Name: Eri Mars RN Position: [facility] RN Member Role: Primary Care Nurse Name: Lula Velasco RN Position: [facility] RN Member Role: Primary Care Nurse Name: Guerline Benavides RN Position: [facility] RN Member Role: Primary Care Nurse Name: Fatimah Galaviz RN Position: [facility] KAREN RN W/OE and Tasks Member Role: Primary Care Nurse Care Team Related Persons Name: KIAN TAMAYO Name: MARTA LEWIS Name: GUERRERO AGUILAR Name: ITALO CORNEJO Insurance Providers Guarantor name: NICOLAS TAMAYO Health Plan Information #: 1 Payer: [facility] Payer Identifier: ANAMIKA Member Number: [id number] Group Number: [id number] Subscriber Identifier: [id number] Relationship to Subscriber: self Coverage Type: Medicare Managed Care (Includes Medicare Advantage Plans) Coverage Verification Date: ANAMIKA Telecom: Address:
--- OUTSIDE RECORDS SUMMARY | 2025-01-21 23:59 | XMS_ITS | Continuity of Care Document ---
Author Organization [facility] Address [address] [place] [address] ve [address] [place] [address]- Care Team Providers Care Senior Erp Consultant Name Role Phone Brett Su MD Primary Care Physician [phone] Encounter [facility] Date(s): 12/22/24 - 01/21/25 [facility] [address] [place], [place] [address] Encounter Type: Triage Allergies, Adverse Reactions, Alerts [...] Given pneumococcal 20-valent conjugate vaccine 01/18/23 Recorded [id number] 12y+ bivalent booster vax 01/27/23 Recorded tetanus-diphtheria toxoids (Td) 07/16/21 Given SARS-CoV-2 mRNA ([id number]-[id number]) vax 07/16/21 Given Influenza Virus Vaccine (oldterm) [...] Given 1Result Comment: [03/08/2017] [facility] [place] 2Location History: [facility] 3Admin Note: center pharmacy [facility] 4Admin Note: per pt rcvd [...] each, 5 Refills, Maintenance,10/17/24 4:32:00 PM EDT, [facility]/pharmacy #1230, 25, 2 puffs Inhalation Every 6 hours,PRN: NEEDED FOR WHEEZING, 165, cm, 10/16/24 17:32:00 EDT, Height, 59.1, kg, 10/16/24 17:32:00 EDT, Dry Weight Start Date: 10/17/24 Status: Ordered Quantity: 8.5 Unit: each Repeat number: 6 Barrier rings (224869) Barrier rings (318870), See Instructions, # 20 each, Refills 11, Tot. Refills 11, Maintenance, use as needed for ostomy maintaince. Dx ileostomy Z93.2, 11/27/24 8:52:00 AM EDT, Supply Start Date: 11/27/24 Status: Ordered Quantity: 20.0 Unit: each Repeat number: 12 Barrier strips (854096) Barrier strips (473439), See Instructions, # 40 each, Refills 11, [...] each Repeat number: 12 Coloplast pre-cut bags (14951) Coloplast pre-cut bags (39485), See Instructions, # 20 each, Refills 11, Tot. Refills 11, Maintenance, Use as needed for ostomy maintaince. Dx ileostomy Z93.2, 01/08/25 12:00:00 PM EDT, Supply Start Date: 01/08/25 Status: Ordered Quantity: 20.0 Unit: each Repeat number: 12 Coloplast pre-cut bags (70953) Coloplast pre-cut bags (82387), See Instructions, # 20 each, Refills 11, Tot. Refills 11, Maintenance, use as needed for ostomy maintaince. Dx ileostomy Z93.2, 11/27/24 8:52:00 AM EDT, Supply Start Date: 11/27/24 Status: Ordered Quantity: 20.0 Unit: each Repeat number: 12 cyanocobalamin 1000 mcg oral tablet 1,000 mcg, By Mouth, Daily, # 90 tablet, Refills 3, Tot. Refills 3, Maintenance, 01/02/25 3:31:00 PMEDT, Route to Pharmacy Electronically, [facility]/pharmacy #1230, Partial fill upon patient request [...] 0 Refills, Maintenance, 11/20/24 8:35:00 AM EDT, [facility]/pharmacy #1230, 165, cm, 11/18/24 15:48:00 EDT, [...] 01/02/25 3:31:00 PM EDT,Route to Pharmacy Electronically, [facility]/pharmacy #1230, Partial fill upon patient request [...] Refills, Maintenance, 12/12/24 2:03:00 PM EDT, Film, [facility]/pharmacy #1230, Partial fill upon patient request [...] Refills, Maintenance, 09/13/24 4:27:00 PM EDT, Tablet, [facility]/pharmacy #1230, Partial fill upon patient request [...] 12:05:00 PM EDT, Route to Pharmacy Electronically, [facility]/pharmacy #1230, Partial fill upon patient requestif [...] Maintenance, 01/12/25 11:31:00 AM EDT, EC Tablet, [facility]/pharmacy #1230, Partial fill upon patient request [...] Refills, Maintenance, 12/25/24 12:56:00 AM EDT, Tablet, [facility]/pharmacy #1230, Partial fill upon patient request [...] 4:10:00 PM EDT, Route to Pharmacy Electronically, [facility]/pharmacy #1230, 163, cm, 03/17/24 15:48:00 EDT, [...] Team Personnel Name: Yoselyn Mccormick RN Position: [facility] RN Member Role: Primary Care Nurse Name: Gladys Koenig RN Position: [facility] RN Member Role: Primary Care Nurse Name: Rand Baez RN Position: [facility] RN Member Role: Primary Care Nurse Name: Bethany Soares RN Position: [facility] RN Member Role: Primary Care Nurse Name: Pam Harmon RN Position: S RN Member Role: Primary Care Nurse Name: Graciela Harmon RN Position: S RN Member Role: Primary Care Nurse Name: Wenceslao Perez RN Position: [facility] RN Member Role: Primary Care Nurse Name: Stella Ramos RN Position: [facility] RN Member Role: Primary Care Nurse Name: Brett Su MD Position: [facility] Physician - Primary Care Member Role: PCP Address: [address] [place] [address]- Telecom: Name: Vangie Chun RN Position: [facility] RN Member Role: Primary Care Nurse Name: Leidy Gray RN Position: [facility] RN Member Role: Primary Care Nurse Name: Jimbo Boswell RN Position: [facility] SN RN Member Role: Primary Care Nurse Name: James Alvarez RN Position: [facility] RN Member Role: Primary Care Nurse Name: Milena Rios RN Position: [facility] RN Member Role: Primary Care Nurse Name: Oralia Ashley RN Position: [facility] RN Member Role: Primary Care Nurse Name: Phyllis Holman RN Position: [facility] RN Member Role: Primary Care Nurse Name: Raya Jewell RN Position: [facility] RN Member Role: Primary Care Nurse Name: Gamaliel Shipman RN Position: [facility] RN Member Role: Primary Care Nurse Name: Harini Aponte RN Position: [facility] RN Member Role: Primary Care Nurse Name: Nya Liu RN Position: [facility] RN Member Role: Primary Care Nurse Name: Geri Galvan RN Position: [facility] RN Member Role: Primary Care Nurse Name: Eri Mars RN Position: [facility] RN Member Role: Primary Care Nurse Name: Lula Velasco RN Position: [facility] RN Member Role: Primary Care Nurse Name: Guerline Benavides RN Position: [facility] RN Member Role: Primary Care Nurse Name: Fatimah Galaviz RN Position: [facility] KAREN RN W/OE and Tasks Member Role: Primary Care Nurse Care Team Related Persons Name: KIAN TAMAYO Name: MARTA LEWIS Name: GUERRERO AGUILAR Name: ITALO CORNEJO Insurance Providers Guarantor name: NICOLAS TAMAYO [facility] Plan Information #: 1 Payer: [facility] CARE Payer Identifier: ANAMIKA Member Number: [id number] Group Number: [id number] Subscriber Identifier: [id number] Relationship to Subscriber: self Coverage Type: Medicare Managed Care (Includes Medicare Advantage Plans) Coverage Verification Date: ANAMIKA Telecom: ANAMIKA Address:
--- NOTE | ~2025-01-25 | US_ITS ---
EXAMINATION: US KIDNEY LEFT HISTORY: pain TECHNIQUE: Real-time grayscale ultrasound imaging of the left kidney was performed and images were reviewed. COMPARISON: Comparison is made with the prior abdominal ultrasound dated 524. FINDINGS: The left kidney measures 10.9 x 4.2 x 4.1 cm. Renal parenchymal echotexture and thickness are normal. There are no masses. There is no hydronephrosis or renal calculi. US/US renal LT IMPRESSION: Unremarkable ultrasound of the left kidney. Electronically signed by: Stevenson Ramirez MD 01/25/2025 11:33 AM EDT
[2025-01-25 09:17] VITALS: BP 126/67; PULSE 63; O2SAT 96
[2025-01-25 09:22] VITALS: BP 121/62; PULSE 64; RESP 18; TEMP 36.6; O2SAT 99; BMI 20.8
--- NOTE | 2025-01-25 09:29 | ED_ITS ---
HPI - Back Pain/Injury General Chief Complaint: Back Pain/Injury Stated Complaint: LOW BACK PAIN RAD TO L HIP PER EMS Time Seen by Provider: 01/25/25 09:18 Source: patient, EMS and old records reviewed Mode of arrival: EMS Limitations: no limitations History of Present Illness ED Provider: HARSHAL HPI Narrative: 60 yo female with PMH of chronic interstitial cystitis who is frequently treated with oxycodone by Urology during flare ups, Back pain, GERD, anxiety, asthma, HLD here with c/o low back pain L > R no dysuria, no loss of control of bowel or bladder, no n/v/d or fevers. She is not on thinners and no IVDA use. Has had some form of this in the past with back pain but today is painful. She did see pain management but never followed up. She ran out of her oxycodone 1.5 weeks ago. She states the pain is severe and she cannot walk. EMS noted a 20 second run of SVT that broke on its own MD elicited complaint: back pain Pertinent past history: prior back pain Onset (ago): day(s) (few) Timing: progressively worsening Severity: severe Similar Symptoms Previously: Yes Quality: throbbing Location: lumbar spine Radiation: left upper leg Exacerbating factors: movement Relieving factors: none Context: unknown Associated symptoms: denies other symptoms Treatments prior to arrival: other (EMS gave zofran and IV morphine en route) Work related injury: No Related Data Home Medications ?Medication ?Instructions ?Recorded ?Confirmed albuterol sulfate 90 mcg/actuation 2 puff inhalation Q 4-6H PRN 04/25/20 10/09/24 aerosol inhaler (ProAir HFA) Shortness Of Breath metoprolol succinate 25 mg 12.5 mg PO DAILY 08/08/21 0 10/09/24 tablet,extended release 24 hr omeprazole 20 mg capsule,delayed 20 mg PO DAILY 10/09/24 release trazodone 50 mg tablet 50 mg PO BEDTIME 10/15/23 lorazepam 0.5 mg tablet 0.5 mg PO NEEDED PRN Anxi ety 04/07/24 10/09/24 trazodone 100 mg tablet 100 mg PO BEDTIME 04/07/24 0 10/09/24 primidone 50 mg tablet 50 mg PO BID 06/13/24 Previous Rx's ?Medication ?Instructions ?Recorded cyclobenzaprine 5 mg tablet 5 mg PO BEDTIME PRN muscle spasm 07/08/24 #14 tabs oxycodone 5 mg tablet 5 mg PO TID PRN pain 2 days #6 tabs 08/11/24 ferrous sulfate 325 mg (65 mg 325 mg PO DAILY #90 tabs 09/06/24 iron) tablet oxybutynin chloride 5 mg 5 mg PO DAILY 30 days #30 ta bs 12/11/24 tablet,extended release 24 hr oxycodone 5 mg tablet 5 mg PO BID pain 14 days #28 tabs 12/20/24 oxycodone 5 mg tablet 5 mg PO BID PRN pain #14 tab s 01/04/25 oxycodone 5 mg tablet 5 mg PO Q8H PRN pain #9 tabs 01/25/25 Allergies Allergy/AdvReac Type Severity Reaction Status Date / Time amoxicillin (From AUGMENTIN) Allergy Severe SEVERE Verified 01/25/25 09:25 DIARRHEA Ccazoci-QEE-FcN Reductase Allergy Intermediate muscle Verified 01/25/25 09:25 Inhibitor ([id number] aches, REDUCTASE INHIBITOR) cramps acetaminophen (ACETAMINOPHEN) AdvReac Severe GI upset. Verified 01/25/25 09:25 Pt confirmed NOT allergic to oxycodone NSAIDS (Non-Steroidal AdvReac Severe Gastrointestinal Verified 01/25/25 09:25 Anti-Inflamma Upset oxycodone (From Percocet) AdvReac Gastrointestinal Verified 01/25/25 09:25 Upset Review of Systems 2 Review of Systems: Constitutional : No Weight loss, No Fever, No Chills, ENT/Mouth : No Hearing loss, No Ear Pain, No Nasal Congestion, No Sinus Pain, No Hoarseness, No sore throat, No Rhinorrhea, No Swallowing Difficulty Cardiovascular : No Chest Pain, No SOB Respiratory : No Cough, No Dyspnea Gastrointestinal : No Nausea, No Vomiting, No Diarrhea, No abdominal Pain, No Hematochezia, No Melena Genitourinary : No Dysuria, No Urinary Frequency, No Hematuria, No Urinary Incontinence, Musculoskeletal : positive back pain Skin : No Skin Lesions, No rash Neuro : No Weakness, No Numbness, No Paresthesias, no loss of bowel or bladder incontinence, no saddle anesthesia Yes all other systems are reviewed and are negative PMFSH Past Medical History Attestation statement: The following information was validated with the patient. Source: old records reviewed Medical History Sacral nerve stimulator present Colostomy in place On beta morgan at home Anxiety SVT (supraventricular tachycardia) Depression Back pain History of gastrostomy tube placement Hx of ulcerative colitis Hx of cystitis History of anxiety Asthma Elevated cholesterol Surgical History History of bowel diversion surgery History of tubal ligation History of endometrial ablation History of bladder surgery Social History Social History Household Members: Significant Other Household Members Other:: s.o can stay to help when needed Housing: Apartment Are you a primary healthcare technician to a significant other at home: No Do you presently have visiting nurse or other home services: No Alcohol intake: former Patient Tobacco Use Status: Current everyday Tobacco user Tobacco use type: Cigarette Cigarettes Per Day: 4 Years Smoked: 25 Smoked in Last 30 Days: Yes Use of substances other than those prescribed or required for medical reasons: No Advance Directives: Yes Advance Directives Information Provided: Yes Advance Directives on File: No Do you have a plan to hurt others: No Plan Current occupational status: disabled Physical Exam 2 Vital Signs: Vital Signs: Last Vital Signs Temp 98 F 01/25/25 09:22 Pulse 67 01/25/25 11:36 Resp 18 01/25/25 11:36 BP 103/49 L 01/25/25 11:36 Pulse Ox 100 01/25/25 11:36 O2 Del Method Room Air 01/25/25 11:36 BMI result Body Mass Index 20.8 Appearance: Alert. Oriented X3. No acute distress. Eyes: Pupils equal, round and reactive to light. ENT: Pharynx normal. Neck: Normal inspection. Neck supple. CVS: Normal heart rate and rhythm. Pulses normal. Respiratory: No respiratory distress. Breath sounds normal. Abdomen: Soft and nontender. Back: ttp along left lower lumbar spine Skin: Skin warm and dry. Normal skin color. Normal skin turgor. Extremities: No lower extremity edema. Neuro: Oriented X 3. No motor deficit. No sensory deficit. CN2-12 intact SILT intact L5 5/5 bilaterally reflexes intact Course Course Course Narrative: asked for CT scan but with normal UA, renal US, VS, labs there is no indication. I do believe there is a chronic pain management issue with this patient Medications Administered Discontinued Medications Generic Name Dose Route Start Last Admin Trade Name Fallon PRN Reason Stop Dose Admin Morphine Sulfate 4 mg 01/25/25 10:00 01/25/25 10:17 Morphine Sulfate 4 Mg/Ml Cartridge IVPUSH 01/25/25 10:01 4 mg ONCE ONE Administration Protocol Oxycodone HCl 10 mg 01/25/25 09:41 01/25/25 10:16 Oxycodone Hcl Immed Release 5 Mg Tablet PO 01/25/25 09:42 10 mg ONCE ONE Administration Medical Decision Making Medical Decision Making [facility] Narrative: 60 yo female with PMH of chronic interstitial cystitis who is frequently treated with oxycodone by Urology during flare ups, Back pain, GERD, anxiety, asthma, HLD now here with acute on chronic back pain though more L flank but no associated cauda equina symptoms no IVDA or thinners she is neuro intact. Will obtain labs, UA, renal US. Differential Diagnosis Differential Diagnoses: The differential diagnosis associated with the presentation includes acute on chronic back pain, interstitial cystitis, hydronephrosis Admission/Observation Consideration of admission/observation: Escalation of care including admission/observation considered this is acute on chronic pain she can be managed at home Lab Data [facility] Lab Attestation statement: I reviewed the patient's lab results. 01/25/25 11:34 01/25/25 11:34 Labs: Lab Results 01/25/25 01/25/25 Range/Units 10:15 11:34 WBC 7.1 (4.8-10.8) X10*3/uL RBC 4.67 (4.20-5.50) X10*6/uL Hgb 13.8 (12.0-16.0) g/dl Hct 40.5 (37.0-47.0) % MCV 86.7 (80.0-98.0) fL MCH 29.6 (27.0-33.0) pg MCHC 34.1 (31.0-35.0) g/dl RDW 14.6 (11.0-16.0) % Plt Count 157 L (160-400) X10*3/uL MPV 10.0 (9.4-12.3) fL Immature Gran % (Auto) 0.3 (0.0-0.4) % Neut % (Auto) 64.7 (45-73) % Lymph % (Auto) 28.8 (20-40) % [place] % (Auto) 5.2 (2-11) % Eos % (Auto) 0.6 (0-4) % Baso % (Auto) 0.4 (0-2) % Lymph # (Auto) 2.0 (1.2-4.9) X10*3/uL [place] # (Auto) 0.4 (0.1-1.2) X10*3/uL Eos # (Auto) 0.0 (0.0-0.4) X10*3/uL Baso # (Auto) 0.0 (0.0-0.2) X10*3/uL Abs Immat Gran (auto) 0.02 (0.00-0.03) X10*3/uL Absolute Neuts (auto) 4.6 (2.0-8.3) x10*3/uL Absolute Nucleated RBC 0.000 (0.0-0.012) X10*3/uL Nucleated RBC % (auto) 0.0 (0.0-0.2) /100WBC Sodium 137 (135-145) mmol/L Potassium 4.1 (3.3-5.1) mmol/L Chloride 105 (96-108) mmol/L Carbon Dioxide 26 (22-29) mmol/L Anion Gap 10 L (12-20) BUN 19 H (9-16) mg/dL Creatinine 0.66 (0.5-1.4) mg/dL Estim Creat Clear Calc 81.1 Estimated GFR > 60 Random Glucose 93 (60-115) mg/dL Calcium 9.2 (8.4-10.2) mg/dL C-Reactive Protein < 0.10 (< or = 0.50) mg/dL Urine Color Yellow Urine Appearance Clear Urine pH 5.5 (5.0-9.0) Ur Specific [place] <= 1.005 (1.005-1.025) Urine Protein Negative (Neg-Trace) mg/dL Urine Glucose (UA) Negative (Negative) mg/dL Urine Ketones Negative (Negative) mg/dL Urine Blood Negative (Negative) Urine Nitrite Negative (Negative) Ur Leukocyte Esterase Negative (Negative) Independent Interpretation I performed an independent interpretation of an: Ultrasound (no cause of pain) Radiology Impression Discussion of test interpretation with radiology: I have reviewed the radiologist's reading. Independent Historian Clinical information obtained from an independent historian. History obtained from or confirmed by: EMS External Record Review External record reviewed: Outpatient record Prescription Management I considered prescription management with: Pain Medication Discharge Plan Discharge Clinical Impression: Lumbar radiculopathy Patient Disposition: Home, Self-Care Instructions: Lumbar Radiculopathy (ED) Additional Instructions: your labs and urine are reassuring there is no pathology on L kidney please follow up with your primary care doctor or pain management return for numbness, loss of control of bowel or bladder or any other concerns. please be advised while we treat acute pain management needs you need to discuss residential opiate prescriptions with your doctor if you require repeat prescriptions from the ED. FINDINGS: The left kidney measures 10.9 x 4.2 x 4.1 cm. Renal parenchymal echotexture and thickness are normal. There are no masses. There is no hydronephrosis or renal calculi. US/US renal LT IMPRESSION: Unremarkable ultrasound of the left kidney. Prescriptions: New oxycodone 5 mg tablet 5 mg PO Q8H PRN (Reason: pain) Qty: 9 0RF Rx Instructions: Partial Fill upon patient request. No Action oxybutynin chloride 5 mg tablet extended release 24hr 5 mg PO DAILY 30 Days Qty: 30 1RF oxycodone 5 mg tablet 5 mg PO BID 14 Days Qty: 28 0RF Rx Instructions: Partial Fill upon patient request. albuterol sulfate [ProAir HFA] 90 mcg/actuation Hfa Aerosol Inhaler 2 puff INHALATION Q4-6H PRN (Reason: Shortness Of Breath) trazodone 50 mg tablet 50 mg PO BEDTIME cyclobenzaprine 5 mg tablet 5 mg PO BEDTIME PRN (Reason: muscle spasm) Qty: 14 0RF ferrous sulfate 325 mg (65 mg iron) tablet 325 mg PO DAILY Qty: 90 2RF oxycodone 5 mg tablet 5 mg PO BID PRN (Reason: pain) Qty: 14 0RF Rx Instructions: Partial Fill upon patient request. metoprolol succinate 25 mg tablet extended release 24 hr 12.5 mg PO DAILY omeprazole 20 mg capsule,delayed release(DR/EC) 20 mg PO DAILY primidone 50 mg tablet 50 mg PO BID oxycodone 5 mg tablet 5 mg PO TID PRN (Reason: pain) 2 Days Qty: 6 0RF Rx Instructions: Partial Fill upon patient request. lorazepam 0.5 mg tablet 0.5 mg PO NEEDED PRN (Reason: Anxiety) trazodone 100 mg tablet 100 mg PO BEDTIME Print Language: Guinean
[2025-01-25] MEDS: oxyCODONE HCl Immed Release 5 MG TABLET 10 MG PO (10:16)
--- OUTSIDE RECORDS SUMMARY | 2025-01-25 10:18 | XMS_ITS | Clinical Summary ---
Author Organization [facility] Address [address] [place] [id number] Phone Care Team Providers Care Strategic Procurement Manager Name Role Phone Pcp, Unknown Primary [...] Active ferrous sulfate 325 mg (65 mg sokaogon iron) tablet Take 325 mg by mouth [...] SIGMOIDOSCOPY 2010 VIRTUAL COLONOSCOPY 2010 COVID-19 VACCINE (2023- season) 2024 01/27/2023, 10/03/2020, 09/12/2020 Adult Td,Tdap Booster 07/16/2031 07/16/2021 RSV VACCINE (1 - 1-dose 75+ series) 01/02/2040 ZOSTER VACCINES Completed 08/06/2020, 09/2020, 06/18/2020, Additional [...] topic Medical Devices Not on file Insurance [facility] MEDICARE REPLACEMENT [place] [id number] [facility] MEDICARE REPLACEMENT [facility] MEDICARE [facility]PLACEMENT [facility] MEDICARE REPLACEMENT [facility] [place] [id number] [facility] [place] [id number] Care Teams Strategic Procurement Manager Relationship Specialty Start Date End Date Pcp, Unknown PCP - General 02/23/23 Additional Source Comments The information contained in this document represents components of the legal health record. It is not the complete legal health record.[facility]
[2025-01-25 10:31] LABS: Appearance Urine Clear; Glucose Urine UA Negative (Negative); PH 5.5 (5.0-9.0); Specific Gravity - Urine <= 1.005 (1.005-1.025)
[2025-01-25 11:36] VITALS: BP 103/49; PULSE 67; RESP 18; O2SAT 100
[2025-01-25 11:53] LABS: MANUAL DIFF FLAG NO
[2025-01-25 11:55] LABS: Hematocrit 40.5 % (37.0-47.0); Hemoglobin 13.8 g/dl (12.0-16.0); Imm Gran Abs Auto 0.02 X10*3/uL (0.00-0.03); Imm Gran Pct Auto 0.3 % (0.0-0.4); Lymphocytes Absolute Auto 2.0 X10*3/uL (1.2-4.9); Mean Corpuscular HGB Conc 34.1 g/dl (31.0-35.0); Mean Corpuscular Hemoglobin 29.6 pg (27.0-33.0); Mean Corpuscular Volume 86.7 fL (80.0-98.0); NRBC Abs Auto 0.000 X10*3/uL (0.0-0.012); NRBC Pct Auto 0.0 /100WBC (0.0-0.2); Platelet Count 157 X10*3/uL (160-400); Red Blood Count 4.67 X10*6/uL (4.20-5.50); White Blood Count 7.1 X10*3/uL (4.8-10.8)
[2025-01-25 12:11] LABS: Anion Gap 10 (12-20); Blood Urea Nitrogen 19 mg/dL (9-16); Calcium 9.2 mg/dL (8.4-10.2); Carbon Dioxide 26 mmol/L (22-29); Chloride 105 mmol/L (96-108); Creatinine Clr Calc Pharmacy 81.1; Estimated Glomerular Filt Rate > 60; Potassium 4.1 mmol/L (3.3-5.1); Sodium 137 mmol/L (135-145)
[2025-01-25 14:17] VITALS: BP 103/49; PULSE 67; RESP 18; TEMP 37.1; O2SAT 100
== END 2025-01-25 14:17 | disposition home or self-care (01) ==
PROVIDERS: Emergency Provider Emergency Medicine
DX: M54.16 Radiculopathy, lumbar region (principal); M54.50 Low back pain, unspecified
CPT/HCPCS: 36415; 76775; 80048; 81003; 85025; 86140; 96374; 96376; 99284; J2270

== ENCOUNTER → 2025-01-25 09:41 | Outpatient (BNV) | payer OTHER, SELFPAY | PROVIDERS: Emergency Provider Emergency Medicine; Visit Provider Radiology Diagnostic Radiology | DX: R10.32 Left lower quadrant pain (principal) | CPT/HCPCS: 76775 ==

== ENCOUNTER 2025-02-08 13:51 | Outpatient (AMB) | payer OTHER, SELFPAY ==
--- OUTSIDE RECORDS SUMMARY | 2025-02-07 23:59 | XMS_ITS | Continuity of Care Document ---
Author Organization [facility] Address [address] [place] [address]- Care Team Providers Care Foley Artist Name Role Phone Sharlene STEWART, Brett Araujo Primary Care Physician Encounter [facility] Date(s): 01/08/25 - 02/07/25 [facility] [address] [place] [address]- Encounter Type: Triage Allergies, Adverse Reactions, Alerts [...] Given pneumococcal 20-valent conjugate vaccine 01/18/23 Recorded [id number] 12y+ bivalent booster vax 01/27/23 Recorded tetanus-diphtheria toxoids (Td) 07/16/21 Given SARS-CoV-2 mRNA ([id number]) vax 07/16/21 Given Influenza Virus Vaccine (oldterm) [...] Given 1Result Comment: [03/08/2017] [facility] [place] 2Location History: [facility] 3Admin Note: [facility] 4Admin Note: per pt [facility]d [facility] 5Admin Note: given in clinic 6Admin Note: WING 7Admin Note: clinic ronnie Medications Adhesive remover wipes Adhesive remover wipes, See Instructions, # 50 each, Refills 11, Tot. Refills 11, Maintenance, use as needed for ostomy maintaince. Dx ileostomy Z93.2, 11/27/24 8:52:00 AM EDT, Supply Start Date: 11/27/24 Status: Ordered Medication Dispense Status: Completed Quantity: 50.0 Unit: each Total Allowed Fills: 12 Fills Dispensed: 0 Albuterol (Eqv-ProAir HFA) 90 mcg/inh inhalation aerosol 2 puffs, Inhalation, Every 6 hours, PRN NEEDED FOR WHEEZING, # 8.5 each, 5 Refills, Maintenance,10/17/24 4:32:00 PM EDT, [id number], 25, 2 puffs Inhalation Every 6 hours,PRN: NEEDED FOR WHEEZING, 165, cm, 10/16/24 17:32:00 EDT, Height, 59.1, kg, 10/16/24 17:32:00 EDT, Dry Weight Start Date: 10/17/24 Status: Ordered Medication Dispense Status: Completed Quantity: 8.5 Unit: each Total Allowed Fills: 6 Fills Dispensed: 0 Barrier rings ([id number]) Barrier rings ([id number]), See Instructions, # 20 each, Refills 11, Tot. Refills 11, Maintenance, use as needed for ostomy maintaince. Dx ileostomy Z93.2, 11/27/24 8:52:00 AM EDT, Supply Start Date: 11/27/24 Status: Ordered Medication Dispense Status: Completed Quantity: 20.0 Unit: each Total Allowed Fills: 12 Fills Dispensed: 0 Barrier strips ([id number]) Barrier strips ([id number]), See Instructions, # 40 each, Refills 11, Tot. Refills 11, Maintenance, useas needed for ostomy maintaince. Dx ileostomy Z93.2, 11/27/24 8:52:00 AM EDT, Supply Start Date: 11/27/24 Status: Ordered Medication Dispense Status: Completed Quantity: 40.0 Unit: each Total Allowed Fills: 12 Fills Dispensed: 0 Cavilon Advanced skin protectant 0.7ml #5015 Cavilon Advanced skin protectant 0.7ml #5015, See Instructions, # 1 each, Refills 11, Tot. Refills 11, Maintenance, use as needed for ostomy care. Dx ileostomy Z 93.2, 03/01/24 11:03:00 AM EDT, Compound Start Date: 03/01/24 Status: Ordered Medication Dispense Status: Completed Quantity: 1.0 Unit: each Total Allowed Fills: 12 Fills Dispensed: 0 Coloplast pre-cut bags (83273) Coloplast pre-cut bags (91676), See Instructions, # 20 each, Refills 11, Tot. Refills 11, Maintenance, Use as needed for ostomy maintaince. Dx ileostomy Z93.2, 01/08/25 12:00:00 PM EDT, Supply Start Date: 01/08/25 Status: Ordered Medication Dispense Status: Completed Quantity: 20.0 Unit: each Total Allowed Fills: 12 Fills Dispensed: 0 Coloplast pre-cut bags (03363) Coloplast pre-cut bags (02923), See Instructions, # 20 each, Refills 11, Tot. Refills 11, Maintenance, use as needed for ostomy maintaince. Dx ileostomy Z93.2, 11/27/24 8:52:00 AM EDT, Supply Start Date: 11/27/24 Status: Ordered Medication Dispense Status: Completed Quantity: 20.0 Unit: each Total Allowed Fills: 12 Fills Dispensed: 0 cyanocobalamin 1000 mcg oral tablet 1,000 mcg, By Mouth, Daily, # 90 tablet, Refills 3, Tot. Refills 3, Maintenance, 01/02/25 3:31:00 PMEDT, Route to Pharmacy Electronically, [facility]/pharmacy #[id number], Partial fill upon patient request if theprescription is for a schedule II opioid drug., 165, cm, 12/30/24 13:31:00 EDT, Height, 55.9, kg, 12/30/24 13:31:00 EDT, Dry Weight Start Date: 01/02/25 Stop Date: 12/28/25 Status: Ordered Medication Dispense Status: Completed Quantity: 90.0 Unit: tablet Total Allowed Fills: 4 Fills Dispensed: 0 cyclobenzaprine 5 mg oral tablet 1 tablet, By Mouth, Daily at bedtime, PRN NEEDED FOR SPASM, FURTHER REFILLS REQUIRE AN OFFICE VISIT, # 14 tablet, 0 Refills, Maintenance, 11/20/24 8:35:00 AM EDT, [facility]/pharmacy #[id number], 165, cm, 11/18/24 15:48:00 EDT, Height, 56.4, kg, 11/18/24 15:48:00 EDT, Dry Weight Start Date: 11/20/24 Stop Date: 12/04/24 Status: Ordered Medication Dispense Status: Completed Quantity: 14.0 Unit: tablet Total Allowed Fills: 1 Fills Dispensed: 0 ferrous sulfate 325 mg oral enteric coated tablet 325 mg, 1, tablet, By Mouth, Daily, # 30 tablet, Refills 0, Maintenance, 09/15/24 9:44:00 AM EDT, Partial fill upon patient request if the prescription is for a schedule II opioid drug. Start Date: 09/15/24 Status: Ordered Medication Dispense Status: Completed Quantity: 30.0 Unit: tablet Total Allowed Fills: 1 Fills Dispensed: 0 folic acid 1 mg oral tablet 1 mg, By Mouth, Daily, # 90 tablet, Refills 3, Tot. Refills 3, Maintenance, 01/02/25 3:31:00 PM EDT,Route to Pharmacy Electronically, [facility]/pharmacy #[id number], Partial fill upon patient request if the prescription is for a schedule II opioid drug., 165, cm, 12/30/24 13:31:00 EDT, Height, 55.9, kg, 12/30/24 13:31:00 EDT, Dry Weight Start Date: 01/02/25 Status: Ordered Medication Dispense Status: Completed Quantity: 90.0 Unit: tablet Total Allowed Fills: 4 Fills Dispensed: 0 Goose neck lamp Goose neck lamp, See Instructions, # 1 each, Refills 0, Tot. Refills 0, Maintenance, use for illumination during stoma care nd ostomy appliance changes. dx = ileostomy / Z93.2, 02/11/24 2:20:00 PM EDT, Supply Start Date: 02/11/24 Status: Ordered Medication Dispense Status: Completed Quantity: 1.0 Unit: each Total Allowed Fills: 1 Fills Dispensed: 0 Handheld Showerhead Handheld Showerhead, See Instructions, # 1 each, Refills 0, Tot. Refills 0, Maintenance, Dx: Peripheral neuropathy (G62.9), 11/01/24 10:02:00 AM EDT, Supply Start Date: 11/01/24 Status: Ordered Medication Dispense Status: Completed Quantity: 1.0 Unit: each Total Allowed Fills: 1 Fills Dispensed: 0 lidocaine 5% topical film 1 patch, Topically, [...] Dry Weight Start Date: 12/12/24 Status: Ordered Medication Dispense Status: Completed Quantity: 30.0 Unit: patch Total Allowed Fills: 12 Fills Dispensed: 0 LORazepam 0.5 mg oral tablet 1 tablet = 0.5 mg, By Mouth, 3 times a day, # 90 tablet, 5 Refills, Maintenance, 09/13/24 4:27:00 PM EDT, Tablet, [facility]/pharmacy #[id number], Partial fill upon patient request if the prescription is for a schedule II opioid drug., 165, cm, 09/11/24 21:11:00 EDT, Height, 62.2, kg, 09/11/24 21:11:00 EDT, Dry Weight Start Date: 09/13/24 Status: Ordered Medication Dispense Status: Completed Quantity: 90.0 Unit: tablet Total Allowed Fills: 6 Fills Dispensed: 0 metoprolol 50 mg oral tablet, extended release 50 mg, 1, tablet, By Mouth, Daily, # 90 tablet, Refills 3, Tot. Refills 3, Maintenance, 12/20/24 12:05:00 PM EDT, Route to Pharmacy Electronically, [facility]/pharmacy #[id number], Partial fill upon patient requestif the prescription is for a schedule II opioid drug., 165, cm, 12/19/24 14:28:00 EDT, Height, 56.1, kg, 12/19/24 14:28:00 EDT, Dry Weight Start Date: 12/20/24 Status: Ordered Medication Dispense Status: Completed Quantity: 90.0 Unit: tablet Total Allowed Fills: 4 Fills Dispensed: 0 No sting skin prep spray (Díaz and Nephew) No sting skin prep spray ([employer]), See Instructions, # 1 each, Refills 11, Tot. Refills 11, Maintenance, Use as needed for ostomy maintaince. Dx ileostomy Z93.2, 08/25/24 4:41:00 PM EDT, Supply Start Date: 08/25/24 Status: Ordered Medication Dispense Status: Completed Quantity: 1.0 Unit: each Total Allowed Fills: 12 Fills Dispensed: 0 omeprazole 20 mg oral delayed release tablet 1 tablet = 20 mg, By Mouth, 2 times a day, # 60 tablet, 3 Refills, Maintenance, 01/12/25 11:31:00 AM EDT, EC Tablet, [facility]/pharmacy #1230, Partial fill upon patient request if the prescription is for a schedule II opioid drug., 165, cm, 01/11/25 7:49:00 EDT, Height, 55.1, kg, 01/11/25 7:16:00 EDT, Dry Weight Start Date: 01/12/25 Stop Date: 05/12/25 Status: Ordered Medication Dispense Status: Completed Quantity: 60.0 Unit: tablet Total Allowed Fills: 4 Fills Dispensed: 0 ondansetron 4 mg oral tablet, disintegrating 1 tablet = 4 mg, By Mouth, Every 8 hours, PRN Nausea & Vomiting, # 20 tablet, 0 Refills, Maintenance, 12/25/24 12:56:00 AM EDT, Tablet, [facility]/pharmacy #1230, Partial fill upon patient request if theprescription is for a schedule II opioid drug., 166, cm, 12/24/24 22:15:00 EDT, Height, 57, kg, 12/24/24 22:15:00 EDT, Dry Weight Start Date: 12/25/24 Status: Ordered Medication Dispense Status: Completed Quantity: 20.0 Unit: tablet Total Allowed Fills: 1 Fills Dispensed: 0 oxybutynin 5 mg oral tablet 1 tablet = 5 mg, By Mouth, 3 times a day, 0 Refills, Maintenance, 09/15/24 9:42:00 AM EDT, Partial fill upon patient request if the prescription is for a schedule II opioid drug. Start Date: 09/15/24 Status: Ordered Medication Dispense Status: Completed Total Allowed Fills: 1 Fills Dispensed: 0 oxyCODONE 5 mg oral tablet 5 mg, 1, tablet, By Mouth, Every 8 hours, PRN, Refills 0, Tot. Refills 0, Maintenance, as needed for pain, 11/12/24 9:32:00 PM EDT, Partial fill upon patient request if the prescription is for a schedule II opioid drug. Start Date: 11/12/24 Status: Ordered Medication Dispense Status: Completed Total Allowed Fills: 1 Fills Dispensed: 0 primidone 50 mg oral tablet 50 mg, 1, tablet, By Mouth, 3 times a day, Refills 0, Maintenance, 07/14/24 4:33:00 PM EST, Partial fill upon patient request if the prescription is for a schedule II opioid drug. Start Date: 07/14/24 Status: Ordered Medication Dispense Status: Completed Total Allowed Fills: 1 Fills Dispensed: 0 Skin prep spray (Díaz and Nephew) Skin prep spray (Díaz [employer]), See Instructions, # 1 each, Refills 11, Tot. Refills 11, Maintenance, Use as needed for ostomy maintaince. Dx ileostomy Z93.2, 11/27/24 8:52:00 AM EDT, Supply Start Date: 11/27/24 Status: Ordered Medication Dispense Status: Completed Quantity: 1.0 Unit: each Total Allowed Fills: 12 Fills Dispensed: 0 traZODone 100 mg oral tablet 1, tablet, By Mouth, Daily at bedtime, # 30 tablet, Refills 11, Tot. Refills 11, Maintenance, 03/17/24 4:10:00 PM EDT, Route to Pharmacy Electronically, [facility]/pharmacy #[id number], 163, cm, 03/17/24 15:48:00 EDT, Height, 49, kg, 02/25/24 16:06:00 EDT, Dry Weight Start Date: 03/17/24 Status: Ordered Medication Dispense Status: Completed Quantity: 30.0 Unit: tablet Total Allowed Fills: 12 Fills Dispensed: 0 Problem List Condition Confirmation Course Effective Dates [...] Team Personnel Name: Yoselyn Mccormick RN Position: [facility] RN Member Role: Primary Care Nurse Name: Gladys Koenig RN Position: [facility] RN Member Role: Primary Care Nurse Name: Rand Baez RN Position: [facility] RN Member Role: Primary Care Nurse Name: Bethany Soares RN Position: [facility] RN Member Role: Primary Care Nurse Name: Pam Harmon RN Position: [facility] RN Member Role: Primary Care Nurse Name: Graciela Harmon RN Position: [facility] RN Member Role: Primary Care Nurse Name: Wenceslao Perez RN Position: [facility] RN Member Role: Primary Care Nurse Name: Stella Ramos RN Position: [facility] RN Member Role: Primary Care Nurse Name: Brett Su MD Position: [facility] Physician - Primary Care Member Role: PCP Address: [address] [place] [address]- Telecom: Name: Vangie Chun RN Position: [facility] RN Member Role: Primary Care Nurse Name: Leidy Gray RN Position: [facility] RN Member Role: Primary Care Nurse Name: Jimbo Boswell RN Position: [facility] SN RN Member Role: Primary Care Nurse Name: James Alvarez RN Position: [facility] RN Member Role: Primary Care Nurse Name: Milena Rios RN Position: [facility] RN Member Role: Primary Care Nurse Name: Oralia Ashley RN Position: [facility] RN Member Role: Primary Care Nurse Name: Phyllis Holman RN Position: [facility] RN Member Role: Primary Care Nurse Name: Raya Jewell RN Position: [facility] RN Member Role: Primary Care Nurse Name: Gamaliel Shipman RN Position: [facility] RN Member Role: Primary Care Nurse Name: Harini Aponte RN Position: [facility] RN Member Role: Primary Care Nurse Name: Nya Liu RN Position: [facility] RN Member Role: Primary Care Nurse Name: Geri Galvan RN Position: [facility] RN Member Role: Primary Care Nurse Name: Eri Mars RN Position: [facility] RN Member Role: Primary Care Nurse Name: Lula Velasco RN Position: [facility] RN Member Role: Primary Care Nurse Name: Guerline Benavides RN Position: [facility] RN Member Role: Primary Care Nurse Name: Fatimah Galaviz RN Position: [facility] ED RN W/OE and Tasks Member Role: Primary Care Nurse Care Team Related Persons Name: KIAN TAMAYO Name: MARTA LEWIS Name: GUERRERO AGUILAR Name: ITALO CORNEJO Insurance Providers Guarantor name: NICOLAS ATMAYO [facility] Plan Information #: 1 Payer: [facility] Payer Identifier: ANAMIKA Member Number: [id number] Group Number: [id number] Subscriber Identifier: NA Relationship to Subscriber: self Coverage Type: Medicare Managed Care (Includes Medicare Advantage Plans) Coverage Verification Date: NA Telecom: ANAMIKA Address: NA
--- OUTSIDE RECORDS SUMMARY | 2025-02-07 23:59 | XMS_ITS | Continuity of Care Document ---
Author Organization [facility] Address [address] [place] [address] [address] [place] [address]- Care Team Providers Care Grant Manager Name Role Phone Sharlene STEWART, Brett Aruajo Primary Care Physician Encounter [facility] Date(s): 01/08/25 - 02/07/25 [facility] [address] [place], [place] [address] Attending Physician: Julia Schuler Admitting Physician: AdmtrJulia Referring Physician: Admtr ArLupillo Encounter Type: Triage Allergies, Adverse Reactions, Alerts [...] Given pneumococcal 20-valent conjugate vaccine 01/18/23 Recorded [id number] 12y+ bivalent booster vax 01/27/23 Recorded tetanus-diphtheria toxoids (Td) 07/16/21 Given SARS-CoV-2 mRNA ([id number]) vax 07/16/21 Given Influenza Virus Vaccine (oldterm) [...] Given 1Result Comment: [03/08/2017] [facility] [place] 2Location History: [facility] 3Admin Note: [...] each, 5 Refills, Maintenance,10/17/24 4:32:00 PM EDT, [facility]/pharmacy #[id number], 25, 2 puffs Inhalation Every 6 hours,PRN: NEEDED FOR WHEEZING, 165, cm, 10/16/24 17:32:00 EDT, Height, 59.1, kg, 10/16/24 17:32:00 EDT, Dry Weight Start Date: 10/17/24 Status: Ordered Medication Dispense Status: Completed Quantity: 8.5 Unit: each Total Allowed Fills: 6 Fills Dispensed: 0 Barrier rings ([id number]) Barrier rings (686772), See Instructions, # 20 each, Refills 11, Tot. Refills 11, Maintenance, use as needed for ostomy maintaince. Dx ileostomy Z93.2, 11/27/24 8:52:00 AM EDT, Supply Start Date: 11/27/24 Status: Ordered Medication Dispense Status: Completed Quantity: 20.0 Unit: each Total Allowed Fills: 12 Fills Dispensed: 0 Barrier strips ([id number]) Barrier strips (117270), See Instructions, # 40 each, Refills 11, [...] 12 Fills Dispensed: 0 Coloplast pre-cut bags (35511) Coloplast pre-cut bags (66364), See Instructions, # 20 each, Refills 11, Tot. Refills 11, Maintenance, Use as needed for ostomy maintaince. Dx ileostomy Z93.2, 01/08/25 12:00:00 PM EDT, Supply Start Date: 01/08/25 Status: Ordered Medication Dispense Status: Completed Quantity: 20.0 Unit: each Total Allowed Fills: 12 Fills Dispensed: 0 Coloplast pre-cut bags (25018) Coloplast pre-cut bags (59655), See Instructions, # 20 each, Refills 11, [...] 01/02/25 3:31:00 PMEDT, Route to Pharmacy Electronically, [facility]/pharmacy #[id number], Partial fill upon patient [...] 0 Refills, Maintenance, 11/20/24 8:35:00 AM EDT, [facility]/pharmacy #[id number], 165, cm, 11/18/24 15:48:00 EDT, [...] 01/02/25 3:31:00 PM EDT,Route to Pharmacy Electronically, [facility]/pharmacy #[id number], Partial fill upon patient [...] Refills, Maintenance, 12/12/24 2:03:00 PM EDT, Film, [facility]/pharmacy #[id number], Partial fill upon patient [...] Refills, Maintenance, 09/13/24 4:27:00 PM EDT, Tablet, [facility]/pharmacy #[id number], Partial fill upon patient [...] 12:05:00 PM EDT, Route to Pharmacy Electronically, [facility]/pharmacy #[id number], Partial fill upon patient requestif [...] Maintenance, 01/12/25 11:31:00 AM EDT, EC Tablet, [facility]/pharmacy #1230, Partial fill upon patient [...] Refills, Maintenance, 12/25/24 12:56:00 AM EDT, Tablet, [id number], Partial fill upon [...] 4:10:00 PM EDT, Route to Pharmacy Electronically, [facility]/pharmacy #[id number], 163, cm, 03/17/24 15:48:00 [...] Team Personnel Name: Yoselyn Mccormick RN Position: [facility] RN Member Role: Primary Care Nurse Name: Gladys Koenig RN Position: [facility] RN Member Role: Primary Care Nurse Name: Rand Baez RN Position: [facility] RN Member Role: Primary Care Nurse Name: Bethany Soares RN Position: [facility] RN Member Role: Primary Care Nurse Name: Pam Harmon RN Position: [facility] RN Member Role: Primary Care Nurse Name: Graciela Harmon RN Position: [facility] RN Member Role: Primary Care Nurse Name: Wenceslao Perez RN Position: [facility] RN Member Role: Primary Care Nurse Name: Stella Ramos RN Position: [facility] RN Member Role: Primary Care Nurse Name: Brett Su MD Position: [facility] Physician - Primary Care Member Role: PCP Address: [address] [place] [id number]- Telecom: Name: Vangie Chun RN Position: [facility] RN Member Role: Primary Care Nurse Name: Leidy Gray RN Position: [facility] RN Member Role: Primary Care Nurse Name: Jimbo Boswell RN Position: [facility] SN RN Member Role: Primary Care Nurse Name: James Alvarez RN Position: [facility] RN Member Role: Primary Care Nurse Name: Milena Rios RN Position: [facility] RN Member Role: Primary Care Nurse Name: Oralia Ashley RN Position: [facility] RN Member Role: Primary Care Nurse Name: Phyllis Holman RN Position: [facility] RN Member Role: Primary Care Nurse Name: Raya Jewell RN Position: [facility] RN Member Role: Primary Care Nurse Name: Gamaliel Shipman RN Position: [facility] RN Member Role: Primary Care Nurse Name: Harini Aponte RN Position: [facility] RN Member Role: Primary Care Nurse Name: Nya Liu RN Position: [facility] RN Member Role: Primary Care Nurse Name: Geri Galvan RN Position: [facility] RN Member Role: Primary Care Nurse Name: Eri Mars RN Position: [facility] RN Member Role: Primary Care Nurse Name: Lula Velasco RN Position: [facility] RN Member Role: Primary Care Nurse Name: Guerline Benavides RN Position: [facility] RN Member Role: Primary Care Nurse Name: Fatimah Galaviz RN Position: [facility] ED RN W/OE and Tasks Member Role: Primary Care Nurse Care Team Related Persons Name: KIAN TAMAYO Name: MARTA LEWIS Name: GUERRERO AGUILAR Name: ITALO CORNEJO Insurance Providers Guarantor name: NICOLAS TAMAYO [facility] Plan Information #: 1 Payer: [facility] Payer Identifier: ANAMIKA Member Number: [id number] Group Number: [id number] Subscriber Identifier: NA Relationship to Subscriber: self Coverage Type: Medicare Managed Care (Includes Medicare Advantage Plans) Coverage Verification Date: NA Telecom: NA Address: NA
--- NOTE | 2025-02-08 13:52 | A.OFFVIS_ITS ---
Intake Visit Reasons: discuss procedure Intake Note: Patient is present for PRECEDURE DISCUSSION Urology Medication:VESICARE Antibiotic Allergy:AMOXICILLIN Blood Thinner:NONE Vp Of Marketing Required: No Accompanied by: Self / Same As Patient Allergies amoxicillin (From AUGMENTIN) Allergy (Severe, Verified 02/08/25 13:53) SEVERE DIARRHEA Fzteyfx-JUW-UrG Reductase Inhibitor (PHWXOWC-MIG-UXU REDUCTASE INHIBITOR) Allergy (Intermediate, Verified 02/08/25 13:53) muscle aches, cramps acetaminophen (ACETAMINOPHEN) Adverse Reaction (Severe, Verified 02/08/25 13:53) GI upset. Pt confirmed NOT allergic to oxycodone NSAIDS (Non-Steroidal Anti-Inflamma Adverse Reaction (Severe, Verified 02/08/25 13:53) Gastrointestinal Upset oxycodone (From Percocet) Adverse Reaction (Verified 02/08/25 13:53) Gastrointestinal Upset HPI Comments Details: Randi is a pleasant female. She is a patient of Dr. Su. she seen for the following urologic conditions - interstitial cystitis Telemedicine evaluation 15 minute consultation Video BookTour edd Would like to have repeat hydrodistention Interstitial cystitis Patient with interstitial cystitis and bladder pain which responded to therapeutic hydrodistention Last hydrodistention - Apr 2023 Was previously on every 3 month schedule but over the last year had been doing every 2 months Would like to have another cystoscopy - hydrodistention done risks benefits potential complications morbidity mortality reviewed all questions answered informed consent obtained Carlos dunn in [facility] Medical History Sacral nerve stimulator present Colostomy in place On beta morgan at home Anxiety SVT (supraventricular tachycardia) Depression Back pain History of gastrostomy tube placement Hx of ulcerative colitis Hx of cystitis History of anxiety Asthma Elevated cholesterol Surgical History History of bowel diversion surgery History of tubal ligation History of endometrial ablation History of bladder surgery Social History Household Members: Significant Other Household Members Other:: s.o can stay to help when needed Housing: Apartment Are you a primary sub acute care nurse to a significant other at home: No Do you presently have visiting nurse or other home services: No 75 years or older and lives alone: No Alcohol intake: former Patient Tobacco Use Status: Current everyday Tobacco user Tobacco use type: Cigarette Cigarettes Per Day: 4 Years Smoked: 25 Current occupational status: disabled Review of Systems Const All systems reviewed & are unremarkable except as noted in HPI and below Reports no additional complaints Resp Reports no additional complaints GI Reports no additional complaints Reports as per HPI Musc Reports no additional complaints Physical Exam Telemedicine evaluation Appropriate responses Regular breathing rate and rhythm HEENT Head: Yes normal to inspection Ears: hearing grossly normal bilaterally Eyes General: appearance normal, both eyes and all related structures Neck Neck: Yes normal visual inspection Chest Chest palpation & inspection: normal inspection of the chest Resp Effort & Inspection: normal respiratory effort and able to speak in complete sentences Telehealth Telehealth Telehealth Platform: BookTour Location of provider rendering services: practice address Location of patient: address on file Patient Identification confirmed using: Name, : Yes Telehealth method: video Patient verbally consented to treatment: Yes Patient verbally consented to billing insurance company: Yes Patient informed of any privacy concerns related to visit: Yes Assessment & Plan Assessment & Plan (1) Interstitial cystitis: Code(s): N30.10 - Interstitial cystitis (chronic) without hematuria Category: Medical Plan Risks, benefits and alternatives to therapy were discussed. These include but are not limited to infection, bleeding, damage to local organs and tissues, need for further interventions. Anesthetic risks regarding cardiac arrhythmia, blood clots, and potential mortality were discussed. The patient understands the typical recovery time and the outpatient nature of the procedure. After consideration of these risks the patient gives full informed consent and they wish to move ahead with the procedure. - hydrodistention Medications: New diazepam crush and place rectally for pelvic floor pain with water based lubricant - use in evening 10 mg PO ONCE PRN 14 tabs 0RF anxiety 14 days N30.10 - Int erstitial cystitis (chronic) without hematuria Patient Instructions: This note is constructed using voice recognition software. While every effort has been made to ensure accuracy machine coil assembler errors may have been included. Imaging studies, laboratory and physical exam results were discussed and reviewed in detail. No major barriers to patient understanding were identified. An opportunity to ask questions regarding the treatment plan was provided. All questions were answered. The patient expressed understanding and agreement with the above treatment plan. The patient is aware they should contact our office by phone for worsening of their current condition or the appearance of new urologic symptoms. Compliance is encouraged with any medications and followup testing that is ordered. It is a privilege to participate in the urologic care of your patient. If you have any questions or concerns regarding treatment for the above conditions, or other urologic issues, please do not hesitate to contact me. The office telephone contact is [phone]. Sincerely, Dr Mk Cornelius MD, [facility] - Urology Compassionate Specialist Care for the Genitourinary System Coding Level of Care Code Tele Est Pt Level 4 (95610) Diagnoses Interstitial cystitis N30.10
--- OUTSIDE RECORDS SUMMARY | 2025-02-08 14:42 | XMS_ITS | Clinical Summary ---
Author Organization [facility] Address [address] [place] [address] Phone Care Team Providers Care Traffic Ii Manager Name Role Phone Pcp, Unknown Primary [...] Active ferrous sulfate 325 mg (65 mg ysleta del sur iron) tablet Take 325 mg by mouth [...] topic Medical Devices Not on file Insurance [facility] ONE CARE MEDICARE REPLACEMENT [place] [id number] [facility] RE[facility] RE[facility] [id number] [facility] [id number] Care Teams Traffic Ii Manager Relationship Specialty Start Date End Date Pcp, Unknown PCP - General 02/23/23 Additional Source Comments The information contained in this document represents components of the legal health record. It is not the complete legal health record.[facility]
--- OUTSIDE RECORDS SUMMARY | 2025-02-08 14:42 | XMS_ITS | Encounter Summary ---
Author Organization Located [facility] Address [address] [facility] [address] [place] [address] Phone Care Team Providers Care Rim Turning Finisher Name Role Phone Unknown, Unknown Primary Care Provider Brett Whitaker MD Primary Care Provider [phone] Pcp, Unknown Primary Care Provider Unavailabl e Encounter Details Date Type Department Care Team (Late st Contact Info) Description 01/21/2023 Transcribe Orders [facility] Specimen Processing [address] [place] [address] Stewart Carlson MD [address] [facility], [address], [address] [place] [address] [email or web address] Anemia, unspecified type (Primary Dx) Social History [...] VITAMIN B12 1,019 232 - 1,245 pg/mL [facility] 01/21/2023 5:50 AM EDT 01/21/2023 12:07 PM EDT us Stewart Carlson MD LAB BLOOD ORDERABLES Final Resul t Performing Organization Address [facility]/ZIP Co de Phone Number [address] [address] * (ABNORMAL) Iron and iron binding capacity (01/21/2023 5:50 AM EDT) IRON 67 30 - 160 ug/dL [facility] IRON BINDING CAPACITY 222(L) 228 - 428 ug/dL [facility] TRANSFERRIN SATURAT. 30 15 - 50 % [facility] 01/21/2023 5:50 AM EDT 01/21/2023 12:07 PM EDT us Stewart Carlson MD LAB BLOOD ORDERABLES Final Resul t Performing Organization Address [facility] Co de Phone Number [address] [address] * Ferritin (01/21/2023 5:50 AM EDT) FERRITIN 56 13 - 150 ug/L [facility] 01/21/2023 5:50 AM EDT 01/21/2023 12:07 PM EDT us Stewart Carlson MD LAB BLOOD ORDERABLES Final Resul t Performing Organization Address [facility] Co de Phone Number [address] [address] * (ABNORMAL) Folate (01/21/2023 5:50 AM EDT) FOLIC ACID 3.0(L) 4.2 - 19.9 ng/mL [facility] 01/21/2023 5:50 AM EDT 01/21/2023 12:07 PM EDT us Stewart Carlson MD LAB BLOOD ORDERABLES Final Resul t Performing Organization Address [facility]/ZIP Co de Phone Number [address] [address] * (ABNORMAL) CBC (01/21/2023 5:50 AM EDT) WBC 6.33 4.00 - 11.00 K/uL [facility] RBC 2.92(L) 3.72 - 5.30 M/uL [facility] HGB 8.4(L) 11.4 - 15.9 g/dL [facility] HCT 27.7(L) 34.2 - 46.8 % [facility] PLT 228 140 - 430 K/uL [facility] MCV 94.9 78.0 - 97.0 fL [facility] MCH 28.8 25.0 - 33.0 pg [facility] MCHC 30.3(L) 32.0 - 36.0 g/dL [facility] RDW 16.9(H) 11.0 - 16.0 % [facility] MPV 11.5 8.4 - 12.8 fl [facility] 01/21/2023 5:50 AM EDT 01/21/2023 12:07 PM EDT us Stewart Carlson MD LAB BLOOD ORDERABLES Final Resul t [facility] [address] [place] [address] documented in this encounter Visit Diagnoses Diagnosis Anemia, unspecified type- Primary documented in this encounter Care Teams Rim Turning Finisher Relationship Specialty Start Date End Date Unknown, Unknown, PCP - General 01/21/23 01/27/23 Brett Su MD [address] [place] [address] PCP - General Internal Medicine 01/28/23 01/28/23 Pcp, Unknown PCP - General 02/23/23 documented as of this encounter Additional Source Comments The information contained in this document represents components of the legal health record. It is not the complete legal health record.[facility]
== END 2025-02-08 14:23 | disposition home or self-care (01) ==
LOC: HO.HUSH 13:51
PROVIDERS: Visit Provider Urology
DX: N30.10 Interstitial cystitis (chronic) without hematuria (principal)
CPT/HCPCS: 99214

== ENCOUNTER 2025-02-19 09:22 | Day surgery (SDC) | payer OTHER, SELFPAY ==
--- OUTSIDE RECORDS SUMMARY | 2025-02-11 23:59 | XMS_ITS | Continuity of Care Document ---
Author Organization [facility] Kevin Sarath lt Address [address] [place] [address]- Care Team Providers Care Jewelry Manager Name Role Phone Sharlene STEWART, Brett Araujo Primary Care Physician Encounter [facility] Date(s): 01/12/25 - 02/11/25 [facility] Adult [address] [place] [address]- Encounter Type: Triage Allergies, Adverse Reactions, Alerts [...] Given pneumococcal 20-valent conjugate vaccine 01/18/23 Recorded [id number]-EjB-9pFQI 12y+ bivalent booster vax 01/27/23 Recorded tetanus-diphtheria toxoids (Td) 07/16/21 Given SARS-CoV-2 mRNA (sxzqazi-elsc-cnkmh) vax 07/16/21 Given Influenza Virus Vaccine (oldterm) [...] Given 1Result Comment: [03/08/2017] [facility] [place] 2[facility] 3Admin Note: center pharmacy [facility] 4Admin Note: per pt rcvd eklsewhere [...] Fills: 6 Fills Dispensed: 0 Barrier rings ([id number]) Barrier rings (129857), See Instructions, # 20 each, Refills 11, Tot. Refills 11, Maintenance, use as needed for ostomy maintaince. Dx ileostomy Z93.2, 11/27/24 8:52:00 AM EDT, Supply Start Date: 11/27/24 Status: Ordered Medication Dispense Status: Completed Quantity: 20.0 Unit: each Total Allowed Fills: 12 Fills Dispensed: 0 Barrier strips (097756) Barrier strips (003075), See Instructions, # 40 each, Refills 11, [...] 12 Fills Dispensed: 0 Coloplast pre-cut bags (48018) Coloplast pre-cut bags (81385), See Instructions, # 20 each, Refills 11, Tot. Refills 11, Maintenance, Use as needed for ostomy maintaince. Dx ileostomy Z93.2, 01/08/25 12:00:00 PM EDT, Supply Start Date: 01/08/25 Status: Ordered Medication Dispense Status: Completed Quantity: 20.0 Unit: each Total Allowed Fills: 12 Fills Dispensed: 0 Coloplast pre-cut bags (98155) Coloplast pre-cut bags (32502), See Instructions, # 20 each, Refills 11, [...] 01/02/25 3:31:00 PMEDT, Route to Pharmacy Electronically, [facility]/pharmacy #[id number], Partial fill upon patient request [...] 0 Refills, Maintenance, 11/20/24 8:35:00 AM EDT, [facility]/pharmacy #[id number], 165, cm, 11/18/24 15:48:00 EDT, [...] 01/02/25 3:31:00 PM EDT,Route to Pharmacy Electronically, [facility]/pharmacy #[id number], Partial fill upon patient request [...] Refills, Maintenance, 09/13/24 4:27:00 PM EDT, Tablet, [facility]/pharmacy #[id number], Partial fill upon patient request [...] 12:05:00 PM EDT, Route to Pharmacy Electronically, [facility]/pharmacy #[id number], Partial fill upon patient requestif [...] Maintenance, 01/12/25 11:31:00 AM EDT, EC Tablet, [facility]/pharmacy #[id number], Partial fill upon patient request [...] Refills, Maintenance, 12/25/24 12:56:00 AM EDT, Tablet, [facility]/pharmacy #[id number], Partial fill upon patient request [...] 4:10:00 PM EDT, Route to Pharmacy Electronically, [facility]/pharmacy #[id number], 163, cm, 03/17/24 15:48:00 EDT, [...] Team Personnel Name: Yoselyn Mccormick RN Position: [facility] RN Member Role: Primary Care Nurse Name: Gladys Koenig RN Position: [facility] RN Member Role: Primary Care Nurse Name: Rand Baez RN Position: [facility] RN Member Role: Primary Care Nurse Name: Bethany Soares RN Position: [facility] RN Member Role: Primary Care Nurse Name: Pam Harmon RN Position: [facility] RN Member Role: Primary Care Nurse Name: Graciela Harmon RN Position: [facility] RN Member Role: Primary Care Nurse Name: Wenceslao Perez RN Position: [facility] RN Member Role: Primary Care Nurse Name: Stella Ramos RN Position: [facility] RN Member Role: Primary Care Nurse Name: Brett Su MD Position: [facility] Physician - Primary Care Member Role: PCP Address: [address] [place] [address]- Telecom: Name: Vangie Chun RN Position: [facility] RN Member Role: Primary Care Nurse Name: Liedy Gray RN Position: [facility] RN Member Role: Primary Care Nurse Name: Jimbo Boswell RN Position: [facility] SN RN Member Role: Primary Care Nurse Name: James Alvarez RN Position: [facility] RN Member Role: Primary Care Nurse Name: Milena Rios RN Position: [facility] RN Member Role: Primary Care Nurse Name: Oralia Ashley RN Position: [facility] RN Member Role: Primary Care Nurse Name: Phyllis Holman RN Position: [facility] RN Member Role: Primary Care Nurse Name: Raya Jewell RN Position: [facility] RN Member Role: Primary Care Nurse Name: Gamaliel Shipman RN Position: [facility] RN Member Role: Primary Care Nurse Name: Harini Aponte RN Position: [facility] RN Member Role: Primary Care Nurse Name: Nya Liu RN Position: [facility] RN Member Role: Primary Care Nurse Name: Geri Galvan RN Position: [facility] RN Member Role: Primary Care Nurse Name: Eri Mars RN Position: [facility] RN Member Role: Primary Care Nurse Name: Lula Velasco RN Position: [facility] RN Member Role: Primary Care Nurse Name: Guerline Benavides RN Position: [facility] RN Member Role: Primary Care Nurse Name: Fatimah Galaviz RN Position: [facility] ED RN W/OE and Tasks Member Role: Primary Care Nurse Care Team Related Persons Name: KIAN TAMAYO Name: MARTA LEWIS Name: GUERRERO AGUILAR Name: ITALO CORNEJO Insurance Providers Guarantor name: NICOLAS TAMAYO [facility] Plan Information #: 1 Payer: [facility] Payer Identifier: ANAMIKA Member Number: [id number] Group Number: [id number] Subscriber Identifier: NA Relationship to Subscriber: self Coverage Type: Medicare Managed Care (Includes Medicare Advantage Plans) Coverage Verification Date: NA Telecom: ANAMIKA Address: NA
--- OUTSIDE RECORDS SUMMARY | 2025-02-11 23:59 | XMS_ITS | Continuity of Care Document ---
Author Organization [facility] Address [address] [place] [address] [address] [place] [address]- Care Team Providers Care Coordinator Hotels Name Role Phone Brett Su MD Primary Care Physician Encounter [facility] Date(s): 01/12/25 - 02/11/25 [facility] [address] [place], [place] [address] Encounter Type: Triage Allergies, Adverse Reactions, Alerts [...] Given pneumococcal 20-valent conjugate vaccine 01/18/23 Recorded NJUR-DhF-7lXWV 12y+ bivalent booster vax 01/27/23 Recorded tetanus-diphtheria toxoids (Td) 07/16/21 Given SARS-CoV-2 mRNA (zclabxi-lalz-wsuxw) vax 07/16/21 Given Influenza Virus Vaccine (oldterm) [...] Given 1Result Comment: [03/08/2017] [facility] [place] 2Location History[facility] 3Admin Note: center [facility] 4Admin Note: per pt rcvd [facility] 5Admin [...] Fills: 6 Fills Dispensed: 0 Barrier rings (438612) Barrier rings (782889), See Instructions, # 20 each, Refills 11, Tot. Refills 11, Maintenance, use as needed for ostomy maintaince. Dx ileostomy Z93.2, 11/27/24 8:52:00 AM EDT, Supply Start Date: 11/27/24 Status: Ordered Medication Dispense Status: Completed Quantity: 20.0 Unit: each Total Allowed Fills: 12 Fills Dispensed: 0 Barrier strips (189211) Barrier strips (142021), See Instructions, # 40 each, Refills 11, [...] 12 Fills Dispensed: 0 Coloplast pre-cut bags (63084) Coloplast pre-cut bags (79414), See Instructions, # 20 each, Refills 11, Tot. Refills 11, Maintenance, Use as needed for ostomy maintaince. Dx ileostomy Z93.2, 01/08/25 12:00:00 PM EDT, Supply Start Date: 01/08/25 Status: Ordered Medication Dispense Status: Completed Quantity: 20.0 Unit: each Total Allowed Fills: 12 Fills Dispensed: 0 Coloplast pre-cut bags (58217) Coloplast pre-cut bags (33085), See Instructions, # 20 each, Refills 11, [...] 01/02/25 3:31:00 PMEDT, Route to Pharmacy Electronically, [facility]/pharmacy #[id number], Partial fill upon patient request [...] 0 Refills, Maintenance, 11/20/24 8:35:00 AM EDT, [facility]/pharmacy #1230, 165, cm, 11/18/24 15:48:00 EDT, [...] 01/02/25 3:31:00 PM EDT,Route to Pharmacy Electronically, [facility]/pharmacy #1230, Partial fill upon patient request [...] Refills, Maintenance, 09/13/24 4:27:00 PM EDT, Tablet, [facility]/pharmacy #1230, Partial fill upon patient request [...] 12:05:00 PM EDT, Route to Pharmacy Electronically, [facility]/pharmacy #[id number], Partial fill upon patient requestif the prescription is for a schedule II opioid drug., 165, cm, 12/19/24 14:28:00 EDT, Height, 56.1, kg, 12/19/24 14:28:00 EDT, Dry Weight Start Date: 12/20/24 Status: Ordered Medication Dispense Status: Completed Quantity: 90.0 Unit: tablet Total Allowed Fills: 4 Fills Dispensed: 0 No sting skin prep spray (Díaz and Nephew) No sting skin prep spray (Díza and Nephew), See Instructions, # 1 each, [...] Maintenance, 01/12/25 11:31:00 AM EDT, EC Tablet, [facility]/pharmacy #1230, Partial fill upon patient request [...] Refills, Maintenance, 12/25/24 12:56:00 AM EDT, Tablet, [facility]/pharmacy #1230, Partial fill upon patient request [...] 4:10:00 PM EDT, Route to Pharmacy Electronically, [facility]/pharmacy #[id number], 163, cm, 03/17/24 15:48:00 EDT, [...] RN Position: [facility] RN Member Role: Primary Care Nurse Name: Gladys Koenig RN Position: [facility] RN Member Role: Primary Care Nurse Name: Rand Baez RN Position: [facility] RN Member Role: Primary Care Nurse Name: Bethany Soares RN Position: [facility] RN Member Role: Primary Care Nurse Name: Pam Harmon RN Position: [facility] RN Member Role: Primary Care Nurse Name: Graciela Harmon RN Position: [facility] RN Member Role: Primary Care Nurse Name: Wenceslao Perez RN Position: [facility] RN Member Role: Primary Care Nurse Name: Stella Ramos RN Position: [facility] RN Member Role: Primary Care Nurse Name: Brett Su MD Position: [facility] Physician - Primary Care Member Role: PCP Address: [address] [place] [address]- Telecom: Name: Vangie Chun RN Position: [facility] RN Member Role: Primary Care Nurse Name: Leidy Gray RN Position: [facility] RN Member Role: Primary Care Nurse Name: Jimbo Boswell RN Position: [facility] SN RN Member Role: Primary Care Nurse Name: James Alvarez RN Position: [facility] RN Member Role: Primary Care Nurse Name: Milena Rios RN Position: [facility] RN Member Role: Primary Care Nurse Name: Oralia Ashley RN Position: [facility] RN Member Role: Primary Care Nurse Name: Phyllis Holman RN Position: [facility] RN Member Role: Primary Care Nurse Name: Raya Jewell RN Position: [facility] RN Member Role: Primary Care Nurse Name: Gamaliel Shipman RN Position: [facility] RN Member Role: Primary Care Nurse Name: Harini Aponte RN Position: [facility] RN Member Role: Primary Care Nurse Name: Nya Liu RN Position: [facility] RN Member Role: Primary Care Nurse Name: Geri Galvan RN Position: [facility] RN Member Role: Primary Care Nurse Name: Eri Mars RN Position: [facility] RN Member Role: Primary Care Nurse Name: Lula Velasco RN Position: [facility] RN Member Role: Primary Care Nurse Name: Guerline Benavides RN Position: [facility] RN Member Role: Primary Care Nurse Name: Fatimah Galaviz RN Position: [facility] ED RN W/OE and Tasks Member Role: Primary Care Nurse Care Team Related Persons Name: KIAN TAMAYO Name: MARTA LEWIS Name: GUERRERO AGUILAR Name: ITALO CORNEJO Insurance Providers Guarantor name: NICOLAS TAMAYO Health Plan Information #: 1 Payer: [facility] Payer Identifier: ANAMIKA Member Number: [id number] Group Number: [id number] Subscriber Identifier: NA Relationship to Subscriber: self Coverage Type: Medicare Managed Care (Includes Medicare Advantage Plans) Coverage Verification Date: NA Telecom: ANAMIKA Address: NA
--- OUTSIDE RECORDS SUMMARY | 2025-02-14 17:17 | XMS_ITS | Clinical Summary ---
Author Organization [facility] Address [address] [facility] [address] [place] [id number] Phone Care Team Providers Care Plant Sprayer Name Role Phone Pcp, Unknown Primary Care [...] Active ferrous sulfate 325 mg (65 mg [place] iron) tablet Take 325 mg by mouth [...] topic Medical Devices Not on file Insurance [facility] MEDICARE REPLACEMENT [place] [id number] [facility] MEDICARE REPLACEMENT [facility] MEDICARE REPLACEMENT [facility] MEDICARE REPLACEMENT [facility] [place] [id number] [facility] [place] [id number] Care Teams Plant Sprayer Relationship Specialty Start Date End Date Pcp, Unknown PCP - General 02/23/23 Additional Source Comments The information contained in this document represents components of the legal health record. It is not the complete legal health record.[facility]
--- OUTSIDE RECORDS SUMMARY | 2025-02-14 17:18 | XMS_ITS | Encounter Summary ---
Author Organization [facility] Address [address] [facility] [address] [place] [phone] Phone Care Team Providers Care Tamale Machine Feeder Name Role Phone Unknown, Unknown Primary Care Provider Brett Whitaker MD Primary Care Provider [phone] Pcp, Unknown Primary Care Provider Unavailabl e Encounter Details Date Type Department Care Team (Late st Contact Info) Description 01/21/2023 Transcribe Orders [facility] Specimen Processing [address] [place] [address] Stewart Carlson MD [address] [facility], [address], [address] [place] [address] [email or web address] Anemia, unspecified type (Primary Dx) Social History [...] VITAMIN B12 1,019 232 - 1,245 pg/mL [facility] 01/21/2023 5:50 AM EDT 01/21/2023 12:07 PM EDT us Stewart Carlson MD LAB BLOOD ORDERABLES Final Resul t Performing Organization Address [facility]/ZIP Co de Phone Number [address] [address] * (ABNORMAL) Iron and iron binding capacity (01/21/2023 5:50 AM EDT) IRON 67 30 - 160 ug/dL [facility] IRON BINDING CAPACITY 222(L) 228 - 428 ug/dL [facility] TRANSFERRIN SATURAT. 30 15 - 50 % [facility] 01/21/2023 5:50 AM EDT 01/21/2023 12:07 PM EDT us Stewart Carlson MD LAB BLOOD ORDERABLES Final Resul t Performing Organization Address [facility] Co de Phone Number [address] [address] * Ferritin (01/21/2023 5:50 AM EDT) FERRITIN 56 13 - 150 ug/L [facility] 01/21/2023 5:50 AM EDT 01/21/2023 12:07 PM EDT us Stewart Carlson MD LAB BLOOD ORDERABLES Final Resul t Performing Organization Address [facility] Co de Phone Number [address] [address] * (ABNORMAL) Folate (01/21/2023 5:50 AM EDT) FOLIC ACID 3.0(L) 4.2 - 19.9 ng/mL [facility] 01/21/2023 5:50 AM EDT 01/21/2023 12:07 PM EDT us Stewart Carlson MD LAB BLOOD ORDERABLES Final Resul t Performing Organization Address [facility]/ZIP Co de Phone Number [address] [address] * (ABNORMAL) CBC (01/21/2023 5:50 AM EDT) WBC 6.33 4.00 - 11.00 K/uL [facility] RBC 2.92(L) 3.72 - 5.30 M/uL [facility] HGB 8.4(L) 11.4 - 15.9 g/dL [facility] HCT 27.7(L) 34.2 - 46.8 % [facility] PLT 228 140 - 430 K/uL [facility] MCV 94.9 78.0 - 97.0 fL [facility] MCH 28.8 25.0 - 33.0 pg [facility] MCHC 30.3(L) 32.0 - 36.0 g/dL [facility] RDW 16.9(H) 11.0 - 16.0 % [facility] MPV 11.5 8.4 - 12.8 fl [facility] 01/21/2023 5:50 AM EDT 01/21/2023 12:07 PM EDT us Stewart Carlson MD LAB BLOOD ORDERABLES Final Resul t [facility] [address] [place] [address] documented in this encounter Visit Diagnoses Diagnosis Anemia, unspecified type- Primary documented in this encounter Care Teams Tamale Machine Feeder Relationship Specialty Start Date End Date Unknown, Unknown, PCP - General 01/21/23 01/27/23 Brett Su MD [address] [place] [id number] PCP - General Internal Medicine 01/28/23 01/28/23 Pcp, Unknown PCP - General 02/23/23 documented as of this encounter Additional Source Comments The information contained in this document represents components of the legal health record. It is not the complete legal health record.[facility]
--- NOTE | 2025-02-16 09:08 | HO.ANESPROP2 ---
Documented by User: Marion Mak NP 02/16/25 09:11 HPI - Anesthesia Eval Consult details Narrative: 60 yr old female for cystoscopy hydrodistention of bladder s/p cystoscopy 10/2024, GA, LMA 4 H/O SVT: EKG from August 2024 with normal HR, rhythm PMFSH Active Problems Active Problems: All Active Problems (Updated 01/25/25 @ 11:49 by Samara Miguel DO) Lumbosacral spondylosis (Acute) Lumbar radiculopathy (Acute) Pelvic floor dysfunction in female (Acute) Urinary urgency (Acute) Bladder pain (Acute) Fracture of fifth metatarsal bone of left foot (Acute) Bladder spasm (Acute) Interstitial cystitis (Acute) Sacral nerve stimulator present (Acute) Past Medical History Medical History Sacral nerve stimulator present Colostomy in place On beta morgan at home Anxiety SVT (supraventricular tachycardia) Depression Back pain History of gastrostomy tube placement Hx of ulcerative colitis Hx of cystitis History of anxiety Asthma Elevated cholesterol Family History Family history of problems with anesthesia: No Surgical History Surgical History History of bowel diversion surgery History of tubal ligation History of endometrial ablation History of bladder surgery History of Problems with Anesthesia: No Social History Social History Household Members: Significant Other Household Members Other:: s.o can stay to help when needed Housing: Apartment Are you a primary home care music therapist to a significant other at home: No Do you presently have visiting nurse or other home services: No Alcohol intake: former Patient Tobacco Use Status: Current someday Tobacco user Tobacco use type: Cigarette Cigarettes Per Day: 4 Years Smoked: 25 Have you been hit, kicked, punched, or otherwise hurt by someone within the past year? If so, by whom?: No Are you DNR?: No Advance Directives: No Advance Directives Information Provided: Yes Current occupational status: disabled Meds Allergies Allergy/AdvReac Type Severity Reaction Status Date / Time amoxicillin (From AUGMENTIN) Allergy Severe SEVERE Verified 02/08/25 13:53 DIARRHEA Tjaeizy-FBX-MzK Reductase Allergy Intermediate muscle Verified 02/08/25 13:53 Inhibitor ([id number] aches, REDUCTASE INHIBITOR) cramps acetaminophen (ACETAMINOPHEN) AdvReac Severe GI upset. Verified 02/08/25 13:53 Pt confirmed NOT allergic to oxycodone NSAIDS (Non-Steroidal AdvReac Severe Gastrointestinal Verified 02/08/25 13:53 Anti-Inflamma Upset oxycodone (From Percocet) AdvReac Gastrointestinal Verified 02/08/25 13:53 Upset Home Medications ?Medication ?Instructions ?Recorded ?Confirmed ?Last Taken ?Type albuterol sulfate 90 mcg/actuation 2 puff inhalation Q4-6H PRN 04/25/20 02/19/25 04/13/22 History aerosol inhaler (ProAir HFA) Shortness Of Breath metoprolol succinate 25 mg 12.5 mg PO DAILY 08/08/21 02/19/25 02/19/25 History tablet,extended release 24 hr omeprazole 20 mg capsule,delayed 20 mg PO DAILY 11/03/21 02/19/25 02/19/25 History release trazodone 50 mg tablet 50 mg PO BEDTIME 10/15/23 02/19/25 Unknown History lorazepam 0.5 mg tablet 0.5 mg PO NEEDED PRN Anxiety 04/07/24 02/19/25 10/30/24 History trazodone 100 mg tablet 100 mg PO BEDTIME 04/07/24 02/19/25 Unknown History primidone 50 mg tablet 50 mg PO BID 06/13/24 02/19/25 Unknown History Exam Narrative Narrative: EKG 08/2024 Vent. Rate : 87 BPM Atrial Rate : 87 BPM P-R Int : 136 ms QRS Dur : 74 ms QT Int : 380 ms P-R-T Axes : 43 11 1 degrees QTcB Int : 457 ms Normal sinus rhythm Normal ECG When compared with ECG of 08-Aug-2024 18:21, No significant change was found Assessment and Plan Final Anesthetic Review Family History of Problems with Anesthesia: No History of Problems with Anesthesia: No Documented by User: Stella Anderson MD 02/19/25 10:43 [facility] Past Medical History Medical History Sacral nerve stimulator present Colostomy in place On beta morgan at home Anxiety SVT (supraventricular tachycardia) Depression Back pain History of gastrostomy tube placement Hx of ulcerative colitis Hx of cystitis History of anxiety Asthma Elevated cholesterol Surgical History Surgical History History of bowel diversion surgery History of tubal ligation History of endometrial ablation History of bladder surgery Social History Social History Household Members: Significant Other Household Members Other:: s.o can stay to help when needed Housing: Apartment Are you a primary home care music therapist to a significant other at home: No Do you presently have visiting nurse or other home services: No Alcohol intake: former Patient Tobacco Use Status: Current someday Tobacco user Tobacco use type: Cigarette Cigarettes Per Day: 4 Years Smoked: 25 Have you been hit, kicked, punched, or otherwise hurt by someone within the past year? If so, by whom?: No Are you DNR?: No Advance Directives: No Advance Directives Information Provided: Yes Current occupational status: disabled Meds Allergies Allergy/AdvReac Type Severity Reaction Status Date / Time amoxicillin (From AUGMENTIN) Allergy Severe SEVERE Verified 02/08/25 13:53 DIARRHEA Yvhxnff-XUF-UeL Reductase Allergy Intermediate muscle Verified 02/08/25 13:53 Inhibitor ([id number] aches, REDUCTASE INHIBITOR) cramps acetaminophen (ACETAMINOPHEN) AdvReac Severe GI upset. Verified 02/08/25 13:53 Pt confirmed NOT allergic to oxycodone NSAIDS (Non-Steroidal AdvReac Severe Gastrointestinal Verified 02/08/25 13:53 Anti-Inflamma Upset oxycodone (From Percocet) AdvReac Gastrointestinal Verified 02/08/25 13:53 Upset Home Medications ?Medication ?Instructions ?Recorded ?Confirmed ?Last Taken ?Type albuterol sulfate 90 mcg/actuation 2 puff inhalation Q4-6H PRN 04/25/20 02/19/25 04/13/22 History aerosol inhaler (ProAir HFA) Shortness Of Breath metoprolol succinate 25 mg 12.5 mg PO DAILY 08/08/21 02/19/25 02/19/25 History tablet,extended release 24 hr omeprazole 20 mg capsule,delayed 20 mg PO DAILY 11/03/21 02/19/25 02/19/25 History release trazodone 50 mg tablet 50 mg PO BEDTIME 10/15/23 02/19/25 Unknown History lorazepam 0.5 mg tablet 0.5 mg PO NEEDED PRN Anxiety 04/07/24 02/19/25 10/30/24 History trazodone 100 mg tablet 100 mg PO BEDTIME 04/07/24 02/19/25 Unknown History primidone 50 mg tablet 50 mg PO BID 06/13/24 02/19/25 Unknown History Exam Airway Mallampati Class: II (missing back teeth) TM Dist: >3cm Neck ROM: Full Heart: rrr Lungs: cta Assessment and Plan Assessment Anesthesia Assessment: Anesthesia Plan Discussed and Chart Reviewed Final Anesthetic Review NPO: Yes ASA Class: II Final Preanesthetic Review: No Changes in Pt Med Stat, Meds/Allgs Chart Reviewed and Consent Obtained/Reviewed Patient Risk: Low Procedure Risk: Low Anesthetic Plan Anesthetic Plan: GA Disposition: Standard PACU
[2025-02-16 15:11] VITALS: BMI 20.8
[2025-02-19] VITALS (13 sets, daily range): BP systolic 113–133; BP diastolic 64–73; PULSE 61–80; RESP 16–20; TEMP 36.1–36.9; O2SAT 95–100; BMI 20.4
[2025-02-19] MEDS: Lactated Ringers 1,000 ML 100 ML IVCONT (10:34)
--- NOTE | 2025-02-19 11:12 | MHC.SHP ---
Pre-Procedural Eval Section A - 24 Hr Update-Section A only Date of Service: 02/19/25 The patient is an INPATIENT: No Changes since office visit: No Cold of Flu in the past 2 weeks, No New Medical Problems, No Changes in Medication and No Patient answered all questions The patient has been examined within 24 hours of the surgical procedure. The History & Physical has been completed within 30 days and I have reviewed it.: Yes Section B - Complete if H&P > 30 days Chief Complaint: Interstitial cystitis (chronic) without hematuria Details of Present Illness: Hydrodistention Allergies: Allergies Allergy/AdvReac Type Severity Reaction Status Date / Time amoxicillin (From AUGMENTIN) Allergy Severe SEVERE Verified 02/08/25 13:53 DIARRHEA Gwtjgzg-KLP-LlW Reductase Allergy Intermediate muscle Verified 02/08/25 13:53 Inhibitor ([id number] aches, REDUCTASE INHIBITOR) cramps acetaminophen (ACETAMINOPHEN) AdvReac Severe GI upset. Verified 02/08/25 13:53 Pt confirmed NOT allergic to oxycodone NSAIDS (Non-Steroidal AdvReac Severe Gastrointestinal Verified 02/08/25 13:53 Anti-Inflamma Upset oxycodone (From Percocet) AdvReac Gastrointestinal Verified 02/08/25 13:53 Upset Plan I have reviewed the history and physical and performed a pertinent physical examination on my patient. No changes have occurred unless specified. Time Spent With Patient Time: Total time managing care of this patient today ____ minutes.
--- NOTE | 2025-02-19 11:51 | P.OP_ITS ---
Operative Note Operative Note Date of Service: 02/19/25 Narrative: PreOperative Diagnosis: Interstitial cystitis with pelvic pain Post Operative Diagnosis: Interstitial cystitis with pelvic pain Procedure: Hydrodistention Surgeon: Dr Mk Cornelius Anesthesia: General Indications for procedure: Longstanding interstitial cystitis Procedure: After informed consent was verified the patient was brought to the operating room and placed in a supine position. Anesthesia was administered per protocol. The patient was placed in a modified dorsal lithotomy position and prepped and draped in sterile fashion. Safety pause time-out was observed. Antibiotics being given. A 22 [place] cystoscope was used to empty the bladder. A mixture of bupivacaine lidocaine gel 20 cc was instilled into the bladder and allowed to sit for 2-3 minutes. A belladonna and opiate rectal suppository was placed. Hydrodistention of the bladder was performed. The bladder was filled and allowed to sit for 2 minutes. Filling was from a height of 1 m. On the 1st fill there was 750 cc within the bladder. Cystoscopy revealed mild glomerulations consistent with interstitial cystitis. Second filling of the bladder was performed in similar fashion. Volume was approximately 750 cc. Terminal hematuria noted. Bupivacaine lidocaine gel 20 cc was instilled at completion of the procedure The the bladder was emptied. The patient tolerated procedure well was extubated in operating room transferred in stable condition to the recovery area. Appropriate postprocedure pain medication was provided. Pathology: None Drains: None
[2025-02-19] MEDS: oxyCODONE HCl Immed Release 5 MG TABLET PO (13:30)
== END 2025-02-19 14:52 | disposition home or self-care (01) ==
PROVIDERS: Visit Provider Urology
PROC: 0T7B7ZZ Dilation of Bladder, Via Natural or Artificial Opening (ICD-10-PCS; CPT 52260; principal; 2025-02-19 11:00)
DX: N30.10 Interstitial cystitis (chronic) without hematuria (principal); R10.2 Pelvic and perineal pain; Z96.82 Presence of neurostimulator; I47.10 Supraventricular tachycardia, unspecified; E78.00 Pure hypercholesterolemia, unspecified; J45.909 Unspecified asthma, uncomplicated; F32.A Depression, unspecified; F41.9 Anxiety disorder, unspecified; Z79.899 Other long term (current) drug therapy; Z88.1 Allergy status to other antibiotic agents; Z88.5 Allergy status to narcotic agent; Z88.6 Allergy status to analgesic agent; Z88.8 Allergy status to other drugs, medicaments and biological substances; Z93.3 Colostomy status; Z98.890 Other specified postprocedural states; F17.210 Nicotine dependence, cigarettes, uncomplicated
CPT/HCPCS: 52260; J0131; J1100; J2003; J2250; J2270; J2405; J2704; J3010

== ENCOUNTER → 2025-02-19 09:22 | Outpatient (BNV) | payer OTHER, SELFPAY | PROVIDERS: Visit Provider Urology | DX: N30.10 Interstitial cystitis (chronic) without hematuria (principal); R10.2 Pelvic and perineal pain | CPT/HCPCS: 52260 ==

== ENCOUNTER 2025-03-08 15:19 | Emergency (ER) | payer OTHER, SELFPAY ==
--- NOTE | ~2025-03-08 | CT_ITS ---
CLINICAL HISTORY: Left-sided abdominal pain. c o urine from rectum CT abdomen and pelvis with contrast Comparison: CT - CT ABDOMEN PELVIS W IV CON - 03/08/25 18:43 EDT Findings: The lung bases are clear. Prior cholecystectomy. Right lower quadrant colostomy. Mild calcified atherosclerotic disease of the abdominal aorta. Right renal upper pole cortical low-attenuation focus, 1.4 cm; renal cyst. Pelvic contents unremarkable. Normal appendix. Right buttocks dual lead bilateral presacral in position. The bladder is within normal limits. Mild osteopenia. Re-identified wedge fracture of the superior endplate of the T12 vertebral body with less than 30% vertebral body height loss. IMPRESSION: 1. No acute intraabdominal or pelvic findings. 2. Status post prior cholecystectomy and right lower quadrant colostomy. 3. Mild calcified atherosclerotic disease of the abdominal aorta. 4. Right buttocks subcutaneous implant with dual lead bilateral presacral in position. 5. Mild osteopenia. This document has been electronically signed by: Joao Wall MD on 03/08/2025 20:15:24
[2025-03-08 15:30] VITALS: BP 121/76; BP 127/72; PULSE 70; PULSE 76; RESP 12; TEMP 36.9; O2SAT 100; O2SAT 99; BMI 21.4
[2025-03-08 15:35] VITALS: BP 127/72; PULSE 78; RESP 12; TEMP 36.8; O2SAT 99
--- NOTE | 2025-03-08 15:38 | PC.NURSE ---
60 F presents to ED with lower abdominal/groin pain 7/10, nausea, since this morning, pain 7/10. Pt has an ostomy, draining appropriately . Pt sts urine coming out of rectum this morning. A+Ox4, calm, cooperative. RR even and unlabored, denies CP or SOB. Bowel sounds audible in all 4 quadrants of abdomen.
[2025-03-08 16:13] LABS: MANUAL DIFF FLAG NO
[2025-03-08 16:17] LABS: Appearance Urine Clear; Glucose Urine UA Negative (Negative); PH 5.5 (5.0-9.0); Specific Gravity - Urine 1.015 (1.005-1.025)
[2025-03-08 16:18] LABS: Hematocrit 42.6 % (37.0-47.0); Hemoglobin 14.1 g/dl (12.0-16.0); Imm Gran Abs Auto 0.03 X10*3/uL (0.00-0.03); Imm Gran Pct Auto 0.4 % (0.0-0.4); Lymphocytes Absolute Auto 2.5 X10*3/uL (1.2-4.9); Mean Corpuscular HGB Conc 33.1 g/dl (31.0-35.0); Mean Corpuscular Hemoglobin 29.5 pg (27.0-33.0); Mean Corpuscular Volume 89.1 fL (80.0-98.0); NRBC Abs Auto 0.000 X10*3/uL (0.0-0.012); NRBC Pct Auto 0.0 /100WBC (0.0-0.2); Platelet Count 197 X10*3/uL (160-400); Red Blood Count 4.78 X10*6/uL (4.20-5.50); White Blood Count 6.9 X10*3/uL (4.8-10.8)
[2025-03-08 16:28] LABS: Alanine Aminotransferase 18 U/L (0-31); Albumin Level 3.9 g/dL (3.5-5.0); Alkaline Phosphatase 127 U/L (39-117); Anion Gap 11 (12-20); Aspartate Amino Transferase 13 U/L (5-31); Blood Urea Nitrogen 25 mg/dL (9-16); Calcium 9.6 mg/dL (8.4-10.2); Carbon Dioxide 26 mmol/L (22-29); Chloride 106 mmol/L (96-108); Creatinine Clr Calc Pharmacy 65.6; Estimated Glomerular Filt Rate > 60; Potassium 4.2 mmol/L (3.3-5.1); Sodium 139 mmol/L (135-145); Total Protein 6.9 g/dL (6.5-8.0)
--- NOTE | 2025-03-08 16:42 | MHC.EDTECH ---
@4711 Patient used call nino to inform this tech about her pain level increased. RN made aware
--- NOTE | 2025-03-08 16:43 | MHC.EDTECH ---
@2217 Patient used call nino to inform this tech about her pain level increased. RN made aware
[2025-03-08 16:51] LABS: Lipase 18 U/L (8-78)
--- NOTE | 2025-03-08 17:07 | MHC.EDTECH ---
Addendum entered by Ketty Dubose 03/08/25 20:58: Incorrect time @[id number] Original Note: @9033 patient used call nino to inform this tech that her pain is worsening. Looking for RN, or MD for medication. RN made aware
--- NOTE | 2025-03-08 17:35 | MHC.EDTECH ---
@2885 patient used call nino to inform this tech she is still waiting to be seen by a provider, she is still in pain, RN made aware
--- NOTE | 2025-03-08 17:45 | ED.ABDPAIN ---
HPI - Abdominal Pain General Chief Complaint: Abdominal Pain Stated Complaint: lower abd pain Time Seen by Provider: 03/08/25 16:39 History of Present Illness HPI narrative: Patient is a 60-year-old female presents today with having lower abdominal pain. The pain is worse on the left side. It is dull. It radiates to the pelvic area. History of ulcerative colitis status post colostomy. No fever no chills. Complaining of pain now on the left side. Also complaining of a urine coming out from her rectal area. Related Data Home Medications ?Medication ?Instructions ?Recorded ?Confirmed albuterol sulfate 90 mcg/actuation 2 puff inhalation Q4-6H PRN 04/25/20 02/19/25 aerosol inhaler (ProAir HFA) Shortness Of Breath metoprolol succinate 25 mg 12.5 mg PO DAILY 08/08/21 02/19/25 tablet,extended release 24 hr omeprazole 20 mg capsule,delayed 20 mg PO DAILY 11/03/21 02/19/25 release trazodone 50 mg tablet 50 mg PO BEDTIME 10/15/23 02/19/25 lorazepam 0.5 mg tablet 0.5 mg PO NEEDED PRN Anxiety 04/07/24 02/19/25 trazodone 100 mg tablet 100 mg PO BEDTIME 04/07/24 02/19/25 primidone 50 mg tablet 50 mg PO BID 06/13/24 02/19/25 Previous Rx's ?Medication ?Instructions ?Recorded cyclobenzaprine 5 mg tablet 5 mg PO BEDTIME PRN muscle spasm 07/08/24 #14 tabs ferrous sulfate 325 mg (65 mg 325 mg PO DAILY #90 tabs 09/06/24 iron) tablet solifenacin 5 mg tablet (Vesicare) 5 mg PO DAILY 30 days #30 tabs 02/01/25 diazepam 10 mg tablet 10 mg PO ONCE PRN anxiety 14 days 02/08/25 #14 tabs oxycodone 5 mg tablet 5 mg PO Q6-8H PRN pain (scale 02/19/25 score 4-6) 7 days #24 tabs Allergies Allergy/AdvReac Type Severity Reaction Status Date / Time amoxicillin (From AUGMENTIN) Allergy Severe SEVERE Verified 03/08/25 15:33 DIARRHEA [id number] Reductase Allergy Intermediate muscle Verified 03/08/25 15:33 Inhibitor ([id number] aches, REDUCTASE INHIBITOR) cramps acetaminophen (ACETAMINOPHEN) AdvReac Severe GI upset. Verified 03/08/25 15:33 Pt confirmed NOT allergic to oxycodone NSAIDS (Non-Steroidal AdvReac Severe Gastrointestinal Verified 03/08/25 15:33 Anti-Inflamma Upset oxycodone (From Percocet) AdvReac Gastrointestinal Verified 03/08/25 15:33 Upset Review of Systems Review of Systems Positive lower abdominal pain positive left-sided abdominal pain Yes all other systems are reviewed and are negative [facility] Past Medical History Attestation statement: The following information was validated with the patient. Medical History Sacral nerve stimulator present Colostomy in place On beta morgan at home Anxiety SVT (supraventricular tachycardia) Depression Back pain History of gastrostomy tube placement Hx of ulcerative colitis Hx of cystitis History of anxiety Asthma Elevated cholesterol Surgical History History of bowel diversion surgery History of tubal ligation History of endometrial ablation History of bladder surgery Social History Social History Household Members: Significant Other Household Members Other:: s.o can stay to help when needed Housing: Apartment Are you a primary child care to a significant other at home: No Do you presently have visiting nurse or other home services: No Alcohol intake: current Alcohol intake frequency: does not drink Alcohol type: wine Patient Tobacco Use Status: Current someday Tobacco user Tobacco use type: Cigarette Cigarettes Per Day: 4 Years Smoked: 25 Smoked in Last 30 Days: Yes Use of substances other than those prescribed or required for medical reasons: No Advance Directives: Yes Advance Directives Information Provided: No Advance Directives on File: No Do you have a plan to hurt others: No Plan Patient : No Current occupational status: disabled Physical Exam ED Exam Exam: Appearance: Alert. Oriented X3. No acute distress. Eyes: Pupils equal, round and reactive to light. ENT: Pharynx normal. Neck: Normal inspection. Neck supple. No lymph nodes noted. No crepitus CVS: Normal heart rate and rhythm. Pulses normal. Normal S1 and S2 Respiratory: No respiratory distress. Breath sounds normal. No Wheezing. No rales Abdomen: Positive left-sided abdominal pain no rebound or guarding Skin: Skin warm and dry. Normal skin color. Normal skin turgor. Extremities: No lower extremity edema. Neurovascular intact to all extremities. No Lacerations. No Rash Neuro: Oriented X 3. No motor deficit. No sensory deficit. Moving all extermities. No slurred speech Vital Signs: Vital Signs - 24 hr 03/08/25 15:30 03/08/25 15:35 03/08/25 20:00 Temperature 98.4 F 98.3 F 97.9 F Pulse Rate 76 78 70 Respiratory Rate 12 12 Blood Pressure 127/72 127/72 125/63 Pulse Oximetry 100 99 96 Oxygen Delivery Method Room Air Room Air Room Air BMI result Body Mass Index 21.4 Medical Decision Making Medical Decision Making MDM Narrative: Patient is 60 years old presents today with having abdominal pain. Has a history of colostomy. Patient's urine showed no signs of infection. CT scan of the abdomen per radiology's interpretation was negative obstruction abscess perforation. White count is normal. Electrolytes unremarkable. Additional dose of pain medication was given. Patient is to follow-up on an outpatient basis. In stable condition. Differential Diagnosis Differential Diagnoses: The differential diagnosis associated with the presentation includes Obstruction, kidney stone, diverticulitis Admission/Observation Consideration of admission/observation: Escalation of care including admission/observation considered Lab Data MDM Lab Attestation statement: I reviewed the patient's lab results. 03/08/25 16:07 03/08/25 16:07 Labs: Lab Results 03/08/25 Range/Units 16:07 WBC 6.9 (4.8-10.8) X10*3/uL RBC 4.78 (4.20-5.50) X10*6/uL Hgb 14.1 (12.0-16.0) g/dl Hct 42.6 (37.0-47.0) % MCV 89.1 (80.0-98.0) fL MCH 29.5 (27.0-33.0) pg MCHC 33.1 (31.0-35.0) g/dl RDW 14.8 (11.0-16.0) % Plt Count 197 D (160-400) X10*3/uL MPV 9.8 (9.4-12.3) fL Immature Gran % (Auto) 0.4 (0.0-0.4) % Neut % (Auto) 53.1 (45-73) % Lymph % (Auto) 37.0 (20-40) % Stokes % (Auto) 7.6 (2-11) % Eos % (Auto) 1.5 (0-4) % Baso % (Auto) 0.4 (0-2) % Lymph # (Auto) 2.5 (1.2-4.9) X10*3/uL Stokes # (Auto) 0.5 (0.1-1.2) X10*3/uL Eos # (Auto) 0.1 (0.0-0.4) X10*3/uL Baso # (Auto) 0.0 (0.0-0.2) X10*3/uL Abs Immat Gran (auto) 0.03 (0.00-0.03) X10*3/uL Absolute Neuts (auto) 3.6 (2.0-8.3) x10*3/uL Absolute Nucleated RBC 0.000 (0.0-0.012) X10*3/uL Nucleated RBC % (auto) 0.0 (0.0-0.2) /100WBC Sodium 139 (135-145) mmol/L Potassium 4.2 (3.3-5.1) mmol/L Chloride 106 (96-108) mmol/L Carbon Dioxide 26 (22-29) mmol/L Anion Gap 11 L (12-20) BUN 25 H (9-16) mg/dL Creatinine 0.82 (0.5-1.4) mg/dL Estim Creat Clear Calc 65.6 Estimated GFR > 60 Random Glucose 97 (60-115) mg/dL Calcium 9.6 (8.4-10.2) mg/dL Total Bilirubin 0.2 (0.0-1.0) mg/dL AST 13 (5-31) U/L ALT 18 (0-31) U/L Alkaline Phosphatase 127 H (39-117) U/L Total Protein 6.9 (6.5-8.0) g/dL Albumin 3.9 (3.5-5.0) g/dL Lipase 18 (8-78) U/L Beta HCG, Quant < 2 mIU/mL Urine Color Yellow Urine Appearance Clear Urine pH 5.5 (5.0-9.0) Ur Specific [place] 1.015 (1.005-1.025) Urine Protein Negative (Neg-Trace) mg/dL Urine Glucose (UA) Negative (Negative) mg/dL Urine Ketones Negative (Negative) mg/dL Urine Blood Negative (Negative) Urine Nitrite Negative (Negative) Ur Leukocyte Esterase Negative (Negative) Independent Interpretation I performed an independent interpretation of an: CT Scan (No gross obstruction observed) Radiology Impression Discussion of test interpretation with radiology: I have reviewed the radiologist's reading. External Record Review External record reviewed: Inpatient record Chronic Conditions Abdominal pain, ulcerative colitis Social Determinants Patient?s care significantly limited by Social Determinants of Health including: Problems related to primary support group Medications Administered Discontinued Medications Generic Name Dose Route Start Last Admin Trade Name Freq PRN Reason Stop Dose Admin Hydromorphone HCl 0.5 mg 03/08/25 17:41 03/08/25 18:00 Hydromorphone Hcl 0.5 Mg/0.5 Ml Syringe IVPUSH 03/08/25 17:42 0.5 mg ONCE ONE Administration Protocol Sodium Chloride 1,000 mls @ 999 mls/hr 03/08/25 17:45 03/08/25 19:16 Ns IV 03/08/25 18:45 Infused .Q1H1M MELY Infusion Iohexol 100 ml 03/08/25 18:54 03/08/25 18:55 Iohexol 350 Mg/Ml 100 Ml Infus..Btl IV 03/08/25 18:55 85 ml ONCE ONE Administration Ondansetron HCl 4 mg 03/08/25 17:41 03/08/25 18:00 Ondansetron Hcl 4 Mg/2 Ml Vial IVPUSH 03/08/25 17:42 4 mg ONCE ONE Administration Discharge Plan Discharge Clinical Impression: Abdominal pain Patient Disposition: Home, Self-Care Instructions: Abdominal Pain (ED) Prescriptions: No Action solifenacin [Vesicare] 5 mg tablet 5 mg PO DAILY 30 Days Qty: 30 0RF albuterol sulfate [ProAir HFA] 90 mcg/actuation Hfa Aerosol Inhaler 2 puff INHALATION Q4-6H PRN (Reason: Shortness Of Breath) trazodone 50 mg tablet 50 mg PO BEDTIME cyclobenzaprine 5 mg tablet 5 mg PO BEDTIME PRN (Reason: muscle spasm) Qty: 14 0RF ferrous sulfate 325 mg (65 mg iron) tablet 325 mg PO DAILY Qty: 90 2RF oxycodone 5 mg tablet 5 mg PO Q6-8H PRN (Reason: pain (scale score 4-6)) 7 Days Qty: 24 0RF Rx Instructions: Partial Fill upon patient request. metoprolol succinate 25 mg tablet extended release 24 hr 12.5 mg PO DAILY omeprazole 20 mg capsule,delayed release(DR/EC) 20 mg PO DAILY primidone 50 mg tablet 50 mg PO BID lorazepam 0.5 mg tablet 0.5 mg PO NEEDED PRN (Reason: Anxiety) trazodone 100 mg tablet 100 mg PO BEDTIME diazepam 10 mg tablet 10 mg PO ONCE PRN (Reason: anxiety) 14 Days Qty: 14 0RF Rx Instructions: crush and place rectally for pelvic floor pain with water based lubricant - use in evening Referrals: Brett Su MD [Primary Care Provider, Medical] - 03/12/25 Print Language: Citizen Of [place]
[2025-03-08] MEDS: iohexoL 350 MG/ML 100 ML INFUS..BTL IV (18:55)
--- OUTSIDE RECORDS SUMMARY | 2025-03-08 19:52 | XMS_ITS | Encounter Summary ---
Author Organization [facility] Address [address] [facility] [address] [place] [address] Phone Care Team Providers Care Radiology Physician Name Role Phone Unknown, Unknown Primary Care Provider Brett Whitaker MD Primary Care Provider [phone] Pcp, Unknown Primary Care Provider Unavailabl e Encounter Details Date Type Department Care Team (Late st Contact Info) Description 01/21/2023 Transcribe Orders [facility] Specimen Processing [address] [place] [address] Stewart Carlson MD [address], [address] [place] [address] [email or web address] Anemia, unspecified type (Primary Dx) Social History [...] VITAMIN B12 1,019 232 - 1,245 pg/mL [facility] 01/21/2023 5:50 AM EDT 01/21/2023 12:07 PM EDT us Stewart Carlson MD LAB BLOOD ORDERABLES Final Resul t Performing Organization Address [facility]/ZIP Co de Phone Number [address] [address] * (ABNORMAL) Iron and iron binding capacity (01/21/2023 5:50 AM EDT) IRON 67 30 - 160 ug/dL [facility] IRON BINDING CAPACITY 222(L) 228 - 428 ug/dL [facility] TRANSFERRIN SATURAT. 30 15 - 50 % [facility] 01/21/2023 5:50 AM EDT 01/21/2023 12:07 PM EDT us Stewart Carlson MD LAB BLOOD ORDERABLES Final Resul t Performing Organization Address [facility] Co de Phone Number [address] [address] * Ferritin (01/21/2023 5:50 AM EDT) FERRITIN 56 13 - 150 ug/L [facility] 01/21/2023 5:50 AM EDT 01/21/2023 12:07 PM EDT us Stewart Carlson MD LAB BLOOD ORDERABLES Final Resul t Performing Organization Address [facility] Co de Phone Number [address] [address] * (ABNORMAL) Folate (01/21/2023 5:50 AM EDT) FOLIC ACID 3.0(L) 4.2 - 19.9 ng/mL [facility] 01/21/2023 5:50 AM EDT 01/21/2023 12:07 PM EDT us Stewart Carlson MD LAB BLOOD ORDERABLES Final Resul t Performing Organization Address [facility]/ZIP Co de Phone Number [address] [address] * (ABNORMAL) CBC (01/21/2023 5:50 AM EDT) WBC 6.33 4.00 - 11.00 K/uL [facility] RBC 2.92(L) 3.72 - 5.30 M/uL [facility] HGB 8.4(L) 11.4 - 15.9 g/dL [facility] HCT 27.7(L) 34.2 - 46.8 % [facility] PLT 228 140 - 430 K/uL [facility] MCV 94.9 78.0 - 97.0 fL [facility] MCH 28.8 25.0 - 33.0 pg [facility] MCHC 30.3(L) 32.0 - 36.0 g/dL [facility] RDW 16.9(H) 11.0 - 16.0 % [facility] MPV 11.5 8.4 - 12.8 fl [facility] 01/21/2023 5:50 AM EDT 01/21/2023 12:07 PM EDT us Stewart Carlson MD LAB BLOOD ORDERABLES Final Resul t [facility] [address] [place] [address] documented in this encounter Visit Diagnoses Diagnosis Anemia, unspecified type- Primary documented in this encounter Care Teams Radiology Physician Relationship Specialty Start Date End Date Unknown, Unknown, PCP - General 01/21/23 01/27/23 Brett Su MD [address] [place] [id number] PCP - General Internal Medicine 01/28/23 01/28/23 Pcp, Unknown PCP - General 02/23/23 documented as of this encounter Additional Source Comments The information contained in this document represents components of the legal health record. It is not the complete legal health record.[facility]
--- OUTSIDE RECORDS SUMMARY | 2025-03-08 19:52 | XMS_ITS | Clinical Summary ---
Author Organization [facility] Address [address] [address] [place] [address] Phone Care Team Providers Care Tray Room Worker Name Role Phone Pcp, Unknown Primary [...] Active ferrous sulfate 325 mg (65 mg [place] iron) tablet Take 325 mg by mouth [...] topic Medical Devices Not on file Insurance [facility] ONE CARE MEDICARE REPLACEMENT [place] [employer] [id number] [facility] MEDICARE REPLACEMENT [facility] MEDICARE REPLACEMENT [facility] MEDICARE REPLACEMENT [facility] [place] [id number] [facility] [place] [id number] Care Teams Tray Room Worker Relationship Specialty Start Date End Date Pcp, Unknown PCP - General 02/23/23 Additional Source Comments The information contained in this document represents components of the legal health record. It is not the complete legal health record.[facility]
[2025-03-08 20:00] VITALS: BP 125/63; PULSE 70; TEMP 36.6; O2SAT 96
--- NOTE | 2025-03-08 20:57 | PC.NURSE ---
Have spoken to pt several time about her concerns, notified Provider, pt wants ativan and pain medication, and requesting her results. Pt is tearful and demanding, Have address her concern multiple times and provider is aware and will be with her as soon as he can, Pt provided a drink per request.
--- NOTE | 2025-03-08 20:59 | MHC.EDTECH ---
@2054 Patient was reassured about her concerns multiple times by this tech and RN, about pain and anxiety and requests for medications. Patient stated RN was dismissive/Un-attentive. This tech witnessed the RN speaking and addressing the patient concerns.
[2025-03-08] MEDS: oxyCODONE HCl Immed Release 5 MG TABLET PO (21:23)
--- NOTE | 2025-03-08 21:33 | PC.NURSE ---
pt medicated per mar, reviewed discharge instructions with pt. pt verbalized understanding, no sign of distress.
[2025-03-08 21:34] VITALS: BP 125/63; PULSE 70; RESP 20; TEMP 36.6; O2SAT 96
== END 2025-03-08 21:35 | disposition home or self-care (01) ==
PROVIDERS: Physician Assistant Medical; Emergency Provider Emergency Medicine Emergency Medical Services; PCP Internal Medicine
DX: R10.32 Left lower quadrant pain (principal); R10.2 Pelvic and perineal pain
CPT/HCPCS: 36415; 74177; 80053; 81003; 83690; 84702; 85025; 96361; 96374; 96375; 99285; J1171; J2405; Q9967

== ENCOUNTER → 2025-03-08 17:44 | Outpatient (BNV) | payer OTHER, SELFPAY | PROVIDERS: Emergency Provider Emergency Medicine Emergency Medical Services; PCP Internal Medicine; Visit Provider Radiology Diagnostic Radiology | DX: N28.1 Cyst of kidney, acquired (principal); R10.30 Lower abdominal pain, unspecified | CPT/HCPCS: 74177 ==

== ENCOUNTER 2025-03-26 14:14 | Emergency (ER) | payer OTHER, SELFPAY ==
--- NOTE | ~2025-03-26 | CT_ITS ---
CLINICAL HISTORY: generalized abdominal pain CT abdomen and pelvis with contrast Comparison: CT - CT ABDOMEN PELVIS W IV CON - 03/26/25 16:56 EDT Findings: Hiatal hernia. Prior cholecystectomy. Right renal upper pole cortical low-attenuation lesion, 1.7 cm; renal cysts. Right lower quadrant colostomy. Mild calcified atherosclerotic disease of the abdominal aorta. Prior hysterectomy. Right buttocks implanted device with left presacral lead present. Residual right presacral lead present. Moderate osteopenia. IMPRESSION: 1. Right lower quadrant colostomy. 2. Hiatal hernia. 3. Right buttocks implanted device with left presacral lead present. Residual right presacral lead present. 4. No acute intraabdominal or pelvic findings. This document has been electronically signed by: Joao Wall MD on 03/26/2025 18:06:34
[2025-03-26 14:18] VITALS: BP 110/65; PULSE 82; O2SAT 99
[2025-03-26 14:22] VITALS: BP 116/60; PULSE 85; RESP 19; TEMP 36.4; O2SAT 99; BMI 21.1
[2025-03-26 14:29] VITALS: BP 116/60; PULSE 85; RESP 19; TEMP 36.4; O2SAT 99
--- NOTE | 2025-03-26 14:32 | PC.NURSE ---
60 F presents to ED with central abdominal pain, nausea x 1 week since d/c from having a ablasian, worse today at lunch. Ostomy bag just changed this morning and draining properly. RR even and unlabored, denies CP or SOB. Pt is anxious, cooperative, A+OX4. Pt ambulates without devices.
[2025-03-26 15:10] LABS: MANUAL DIFF FLAG NO
[2025-03-26 15:19] LABS: Hematocrit 40.5 % (37.0-47.0); Hemoglobin 13.8 g/dl (12.0-16.0); Imm Gran Abs Auto 0.03 X10*3/uL (0.00-0.03); Imm Gran Pct Auto 0.4 % (0.0-0.4); Lymphocytes Absolute Auto 2.7 X10*3/uL (1.2-4.9); Mean Corpuscular HGB Conc 34.1 g/dl (31.0-35.0); Mean Corpuscular Hemoglobin 30.1 pg (27.0-33.0); Mean Corpuscular Volume 88.4 fL (80.0-98.0); NRBC Abs Auto 0.000 X10*3/uL (0.0-0.012); NRBC Pct Auto 0.0 /100WBC (0.0-0.2); Platelet Count 188 X10*3/uL (160-400); Red Blood Count 4.58 X10*6/uL (4.20-5.50); White Blood Count 8.1 X10*3/uL (4.8-10.8)
[2025-03-26 15:33] LABS: Alanine Aminotransferase 12 U/L (0-31); Albumin Level 3.9 g/dL (3.5-5.0); Alkaline Phosphatase 118 U/L (39-117); Anion Gap 13 (12-20); Aspartate Amino Transferase 20 U/L (5-31); Blood Urea Nitrogen 17 mg/dL (9-16); Calcium 9.6 mg/dL (8.4-10.2); Carbon Dioxide 22 mmol/L (22-29); Chloride 107 mmol/L (96-108); Creatinine Clr Calc Pharmacy 64.0; Estimated Glomerular Filt Rate > 60; Magnesium 2.0 mg/dL (1.6-2.6); Potassium 3.8 mmol/L (3.3-5.1); Sodium 138 mmol/L (135-145); Total Protein 6.9 g/dL (6.5-8.0)
[2025-03-26 15:52] LABS: Appearance Urine Clear; Glucose Urine UA Negative (Negative); PH 5.5 (5.0-9.0); Specific Gravity - Urine 1.010 (1.005-1.025)
--- OUTSIDE RECORDS SUMMARY | 2025-03-26 15:52 | XMS_ITS | Encounter Summary ---
Author Organization [facility] Address [address] [facility] [address] [place] [address] Phone Care Team Providers Care License Issuer Name Role Phone Unknown, Unknown Primary Care Provider Brett Whitaker MD Primary Care Provider [phone] Pcp, Unknown Primary Care Provider Unavailabl e Encounter Details Date Type Department Care Team (Late st Contact Info) Description 01/21/2023 Transcribe Orders [facility] Specimen Processing [address] [place] [address] Stewart Carlson MD [address] [facility], [address], [address] [place] [address] [email or web address] Anemia, unspecified type (Primary Dx) Social History [...] 1,019 232 - 1,245 pg/mL [facility] 01/21/2023 5:50 AM EDT 01/21/2023 12:07 PM EDT us Stewart Carlson MD LAB BLOOD ORDERABLES Final Resul t Performing Organization Address [facility]/ZIP Co de Phone Number [address] [address] * (ABNORMAL) Iron and iron binding capacity (01/21/2023 5:50 AM EDT) IRON 67 30 - 160 ug/dL [facility] IRON BINDING CAPACITY 222(L) 228 - 428 ug/dL [facility] TRANSFERRIN SATURAT. 30 15 - 50 % [facility] 01/21/2023 5:50 AM EDT 01/21/2023 12:07 PM EDT us Stewart Carlson MD LAB BLOOD ORDERABLES Final Resul t Performing Organization Address [facility] Co de Phone Number [address] [address] * Ferritin (01/21/2023 5:50 AM EDT) FERRITIN 56 13 - 150 ug/L [facility] 01/21/2023 5:50 AM EDT 01/21/2023 12:07 PM EDT us Stewart Carlson MD LAB BLOOD ORDERABLES Final Resul t Performing Organization Address [facility] Co de Phone Number [address] [address] * (ABNORMAL) Folate (01/21/2023 5:50 AM EDT) FOLIC ACID 3.0(L) 4.2 - 19.9 ng/mL [facility] 01/21/2023 5:50 AM EDT 01/21/2023 12:07 PM EDT us Stewart Carlson MD LAB BLOOD ORDERABLES Final Resul t Performing Organization Address [facility]/ZIP Co de Phone Number [address] [address] * (ABNORMAL) CBC (01/21/2023 5:50 AM EDT) WBC 6.33 4.00 - 11.00 K/uL [facility] RBC 2.92(L) 3.72 - 5.30 M/uL [facility] HGB 8.4(L) 11.4 - 15.9 g/dL [facility] HCT 27.7(L) 34.2 - 46.8 % [facility] PLT 228 140 - 430 K/uL [facility] MCV 94.9 78.0 - 97.0 fL [facility] MCH 28.8 25.0 - 33.0 pg [facility] MCHC 30.3(L) 32.0 - 36.0 g/dL [facility] RDW 16.9(H) 11.0 - 16.0 % [facility] MPV 11.5 8.4 - 12.8 fl [facility] 01/21/2023 5:50 AM EDT 01/21/2023 12:07 PM EDT us Stewart Carlson MD LAB BLOOD ORDERABLES Final Resul t [facility] [address] [place] [address] documented in this encounter Visit Diagnoses Diagnosis Anemia, unspecified type- Primary documented in this encounter Care Teams License Issuer Relationship Specialty Start Date End Date Unknown, Unknown, PCP - General 01/21/23 01/27/23 Brett Su MD [address] [place] [address] PCP - General Internal Medicine 01/28/23 01/28/23 Pcp, Unknown PCP - General 02/23/23 documented as of this encounter Additional Source Comments The information contained in this document represents components of the legal health record. It is not the complete legal health record.[facility]
--- OUTSIDE RECORDS SUMMARY | 2025-03-26 15:52 | XMS_ITS | Clinical Summary ---
Author Organization [facility] Address [address] [facility] [address] [place] [address] Phone Care Team Providers Care Senior Climate Advisor Name Role Phone Pcp, Unknown Primary Care [...] Active ferrous sulfate 325 mg (65 mg [place]itan [place] band iron) tablet Take 325 mg by mouth [...] 2010 VIRTUAL COLONOSCOPY 2010 INFLUENZA VACCINE (#1) 2025 , 02/23/2020, 03/09/2019, Additional history exists COVID-19 VACCINE ( season) 2025 01/27/2023, 10/03/2020, 09/12/2020 Adult Td,Tdap Booster 07/16/2031 [...] Medical Devices Not on file Insurance [facility] ONE CARE MEDICARE REPLACEMENT [place] [employer] [id number] [facility] MEDICARE REPLACEMENT [facility] MEDICARE REPLACEMENT [facility] MEDICARE REPLACEMENT [facility] MEDICARE REPLACEMENT Care Teams Senior Climate Advisor Relationship Specialty Start Date End Date Pcp, Unknown PCP - General 02/23/23 Additional Source Comments The information contained in this document represents components of the legal health record. It is not the complete legal health record.[facility]
[2025-03-26 16:46] VITALS: BP 120/61; PULSE 86; RESP 18; TEMP 36.9; O2SAT 94
--- NOTE | 2025-03-26 16:53 | ED.GENADULT ---
HPI - General Adult General Chief complaint: Abdominal Pain Stated complaint: ABD PAIN,NAUEA,BP 147/110 PER EMS Time Seen by Provider: 03/26/25 16:02 Source: patient, RN notes reviewed and old records reviewed Mode of arrival: EMS Limitations: no limitations History of Present Illness ED Provider: Ania HPI narrative: [age] old female with a past medical history significant for ulcerative colitis status post colostomy, chronic pain, interstitial cystitis presents for evaluation abdominal pain. Patient reports that she was admitted here and had an ablation for SVT last week. She was discharged home on . She reports on Wednesday she developed some upper respiratory symptoms with congestion Over last few days she has had severe abdominal pain that she rates in his 03/23 pain She reports that in his lower mid abdomen that radiates up into her epigastrium. Her ostomy has had a normal amount of output but in his described as more loose than typical She has not noticed any blood in the ostomy Denies any fevers, chills pain Denies any chest pain, cough, shortness of breath No other complaints or concerns at this time Related Data Home Medications ?Medication ?Instructions ?Recorded ?Confirmed albuterol sulfate 90 mcg/actuation 2 puff inhalation Q4-6H PRN 04/25/20 02/19/25 aerosol inhaler (ProAir HFA) Shortness Of Breath metoprolol succinate 25 mg 12.5 mg PO DAILY 08/08/21 02/19/25 tablet,extended release 24 hr omeprazole 20 mg capsule,delayed 20 mg PO DAILY 11/03/21 02/19/25 release trazodone 50 mg tablet 50 mg PO BEDTIME 10/15/23 02/19/25 lorazepam 0.5 mg tablet 0.5 mg PO NEEDED PRN Anxiety 04/07/24 02/19/25 trazodone 100 mg tablet 100 mg PO BEDTIME 04/07/24 02/19/25 primidone 50 mg tablet 50 mg PO BID 06/13/24 02/19/25 Previous Rx's ?Medication ?Instructions ?Recorded cyclobenzaprine 5 mg tablet 5 mg PO BEDTIME PRN muscle spasm 07/08/24 #14 tabs ferrous sulfate 325 mg (65 mg 325 mg PO DAILY #90 tabs 09/06/24 iron) tablet solifenacin 5 mg tablet (Vesicare) 5 mg PO DAILY 30 days #30 tabs 02/01/25 diazepam 10 mg tablet 10 mg PO ONCE PRN anxiety 14 days 02/08/25 #14 tabs oxycodone 5 mg tablet 5 mg PO Q6-8H PRN pain (scale 02/19/25 score 4-6) 7 days #24 tabs oxycodone 5 mg tablet 5 mg PO Q6H PRN severe pain (scale 03/26/25 score 7-10) #9 tabs Allergies Allergy/AdvReac Type Severity Reaction Status Date / Time amoxicillin (From AUGMENTIN) Allergy Severe SEVERE Verified 03/26/25 14:28 DIARRHEA Pscrapl-DXF-GmX Reductase Allergy Intermediate muscle Verified 03/26/25 14:28 Inhibitor (KAHRRLE-VBR-EFS aches, REDUCTASE INHIBITOR) cramps acetaminophen (ACETAMINOPHEN) AdvReac Severe GI upset. Verified 03/26/25 14:28 Pt confirmed NOT allergic to oxycodone NSAIDS (Non-Steroidal AdvReac Severe Gastrointestinal Verified 03/26/25 14:28 Anti-Inflamma Upset oxycodone (From Percocet) AdvReac Gastrointestinal Verified 03/26/25 14:28 Upset Review of Systems Constitutional: Constitutional: Denies body ache(s), Denies chills, Denies fever(s) and Denies headache(s) Eyes: Eyes: Denies blurry vision ENT: Denies vertigo, Denies dizziness, Denies dry mouth and Denies headache(s) Cardiovascular: Cardiovascular: Denies chest pain and Denies dyspnea on exertion Respiratory: Respiratory: Denies cough and Denies dyspnea on exertion Gastrointestinal: Gastrointestinal: Reports abdominal pain, Denies melena, Denies hematochezia, Reports loose stools, Denies nausea and Denies vomiting Musculoskeletal: Musculoskeletal: Denies back pain Integumentary/Breasts: Skin/Breast: Denies rash Neurologic: Denies vertigo, Denies dizziness and Denies headache(s) Psychiatric: Psychiatric: Reports anxiety PMFSH Past Medical History Medical History Sacral nerve stimulator present Colostomy in place On beta morgan at home Anxiety SVT (supraventricular tachycardia) Depression Back pain History of gastrostomy tube placement Hx of ulcerative colitis Hx of cystitis History of anxiety Asthma Elevated cholesterol Surgical History History of bowel diversion surgery History of tubal ligation History of endometrial ablation History of bladder surgery Social History Social History Household Members: Significant Other Household Members Other:: s.o can stay to help when needed Housing: Apartment Are you a primary palliative care coordinator to a significant other at home: No Do you presently have visiting nurse or other home services: No Alcohol intake: current Alcohol intake frequency: does not drink Alcohol type: wine Patient Tobacco Use Status: Current someday Tobacco user Tobacco use type: Cigarette Cigarettes Per Day: 4 Years Smoked: 25 Smoked in Last 30 Days: Yes Use of substances other than those prescribed or required for medical reasons: No Advance Directives: No Advance Directives Information Provided: Yes Do you have a plan to hurt others: No Plan Current occupational status: disabled Physical Exam ED Vital Signs: Vital Signs - 24 hr 03/26/25 14:22 03/26/25 14:29 03/26/25 16:46 Temperature 97.5 F 97.5 F 98.4 F Pulse Rate 85 85 86 Respiratory Rate 19 19 18 Blood Pressure 116/60 116/60 120/61 Pulse Oximetry 99 99 94 Oxygen Delivery Method Room Air Room Air Room Air 03/26/25 18:20 Temperature 98.1 F Pulse Rate 68 Respiratory Rate 18 Blood Pressure 111/70 Pulse Oximetry 96 Oxygen Delivery Method Room Air BMI result Body Mass Index 21.1 Const General: healthy appearing, comfortable, no acute distress, alert and awake Nutritional Appearance: well nourished Orientation/consciousness: patient oriented x3 HENMT Head: Yes normocephalic and Yes atraumatic Eyes Eyelids: Yes eyelids normal Conjunctivae: conjunctivae normal Sclerae: sclerae normal Corneas: corneas normal Pupils: Equal, round and reactive pupils present EOM: EOMs intact bilaterally Neck Neck: Yes full ROM Resp Effort & Inspection: normal respiratory effort, able to speak in complete sentences and not labored Cardio Rate: regular rate Rhythm: regular rhythm GI Other: Healthy-appearing ostomy in the right lower quadrant, there is brown stool within the ostomy bag. No bright red blood or black stool. Inspection: No distended Palpation (GI): Soft to palpation, not firm, Tenderness to palpation present (GI) (Diffuse abdominal tenderness without distention or guarding.), no guarding and not rigid Skin General skin exam: elasticity normal Neuro General: patient oriented x3 Cranial nerves: Yes Equal, round and reactive pupils present and Yes Bilaterally intact EOM present Cognition (Neuro): normal cognition Extrem Other: Moving all extremities well without any obvious deformities Course Reevaluation(s) Reevaluation #1: Patient's workup is completely unremarkable, including labs urinalysis and CT scan. The patient is continuing to ask for additional doses of narcotics. I agree to give her 1 more dose of oxycodone p.o., I will not give any additional IV narcotics for subjective pain she has no acute findings and a history of chronic pain. She will be referred to GI she has outpatient follow-up already established Time: 19:22 Medications Administered Discontinued Medications Generic Name Dose Route Start Last Admin Trade Name Johnathnaq PRN Reason Stop Dose Admin Hydromorphone HCl 1 mg 03/26/25 18:00 03/26/25 18:22 Hydromorphone Hcl 1 Mg/Ml Syringe IVPUSH 03/26/25 18:01 1 mg ONCE ONE Administration Protocol Lactated Ringer's 1,000 mls @ 999 mls/hr 03/26/25 16:42 03/26/25 16:54 Lr IV 03/26/25 17:42 999 mls/hr .Q1H1M STA Administration Iohexol 85 ml 03/26/25 17:10 03/26/25 17:10 Iohexol 350 Mg/Ml 100 Ml Infus..Btl IV 03/26/25 17:11 85 ml ONCE ONE Administration Morphine Sulfate 4 mg 03/26/25 16:42 03/26/25 16:52 Morphine Sulfate 4 Mg/Ml Cartridge IVPUSH 03/26/25 16:43 4 mg ONCE ONE Administration Protocol Ondansetron HCl 4 mg 03/26/25 16:42 03/26/25 16:52 Ondansetron Hcl 4 Mg/2 Ml Vial IVPUSH 03/26/25 16:43 4 mg ONCE ONE Administration Medical Decision Making Medical Decision Making MDM Narrative: [age] old female with a past medical history as above presents for evaluation of abdominal pain with loose stool. Her symptoms started a few days ago. She is having adequate output out of her ostomy so obstructions favored to be less likely. She reports having 10% of her colon remaining in his possible that she has an ulcerative colitis flare, added on an ESR and a CRP to evaluate this. She has no leukocytosis, no fever, infectious causes favored to be less likely. The patient's urinalysis shows no evidence of infection, hematuria or proteinuria. The patient is quite adamant that she would like a CT scan of the abdomen pelvis to better evaluate her abdominal pain. She did have 1 on 03/08/2025 did not show any concerning abnormalities. After discussing risks and benefits I did agree to perform a CT scan Differential Diagnosis Differential Diagnoses: The differential diagnosis associated with the presentation includes Abdominal pain Constipation Enteritis Also colitis flare Acute appendicitis Pancreatitis Lab Data MDM Lab Attestation statement: I reviewed the patient's lab results. No leukocytosis or significant anemia. Normal platelet count. No significant electrolyte abnormalities warranting intervention 03/26/25 15:03 03/26/25 15:03 Labs: Lab Results 03/26/25 03/26/25 Range/Units 15:03 15:45 WBC 8.1 (4.8-10.8) X10*3/uL RBC 4.58 (4.20-5.50) X10*6/uL Hgb 13.8 (12.0-16.0) g/dl Hct 40.5 (37.0-47.0) % MCV 88.4 (80.0-98.0) fL MCH 30.1 (27.0-33.0) pg MCHC 34.1 (31.0-35.0) g/dl RDW 13.9 (11.0-16.0) % Plt Count 188 (160-400) X10*3/uL MPV 10.0 (9.4-12.3) fL Immature Gran % (Auto) 0.4 (0.0-0.4) % Neut % (Auto) 58.4 (45-73) % Lymph % (Auto) 32.9 (20-40) % [place] % (Auto) 7.2 (2-11) % Eos % (Auto) 0.5 (0-4) % Baso % (Auto) 0.6 (0-2) % Lymph # (Auto) 2.7 (1.2-4.9) X10*3/uL [place] # (Auto) 0.6 (0.1-1.2) X10*3/uL Eos # (Auto) 0.0 (0.0-0.4) X10*3/uL Baso # (Auto) 0.1 (0.0-0.2) X10*3/uL Abs Immat Gran (auto) 0.03 (0.00-0.03) X10*3/uL Absolute Neuts (auto) 4.7 (2.0-8.3) x10*3/uL Absolute Nucleated RBC 0.000 (0.0-0.012) X10*3/uL Nucleated RBC % (auto) 0.0 (0.0-0.2) /100WBC ESR Cancelled Sodium 138 (135-145) mmol/L Potassium 3.8 (3.3-5.1) mmol/L Chloride 107 (96-108) mmol/L Carbon Dioxide 22 (22-29) mmol/L Anion Gap 13 (12-20) BUN 17 H (9-16) mg/dL Creatinine 0.84 (0.5-1.4) mg/dL Estim Creat Clear Calc 64.0 Estimated GFR > 60 Random Glucose 83 (60-115) mg/dL Calcium 9.6 (8.4-10.2) mg/dL Magnesium 2.0 (1.6-2.6) mg/dL Total Bilirubin 0.2 (0.0-1.0) mg/dL AST 20 (5-31) U/L ALT 12 (0-31) U/L Alkaline Phosphatase 118 H (39-117) U/L C-Reactive Protein < 0.10 (< or = 0.50) mg/dL Total Protein 6.9 (6.5-8.0) g/dL Albumin 3.9 (3.5-5.0) g/dL Lipase 39 (8-78) U/L Urine Color Yellow Urine Appearance Clear Urine pH 5.5 (5.0-9.0) Ur Specific [place] 1.010 (1.005-1.025) Urine Protein Negative (Neg-Trace) mg/dL Urine Glucose (UA) Negative (Negative) mg/dL Urine Ketones Negative (Negative) mg/dL Urine Blood Negative (Negative) Urine Nitrite Negative (Negative) Ur Leukocyte Esterase Negative (Negative) Radiology Impression Discussion of test interpretation with radiology: I have reviewed the radiologist's reading. Radiologist Impression: Findings: Hiatal hernia. Prior cholecystectomy. Right renal upper pole cortical low-attenuation lesion, 1.7 cm; renal cysts. Right lower quadrant colostomy. Mild calcified atherosclerotic disease of the abdominal aorta. Prior hysterectomy. Right buttocks implanted device with left presacral lead present. Residual right presacral lead present. Moderate osteopenia. IMPRESSION: 1. Right lower quadrant colostomy. 2. Hiatal hernia. 3. Right buttocks implanted device with left presacral lead present. Residual right presacral lead present. 4. No acute intraabdominal or pelvic findings. This document has been electronically signed by: Joao Wall MD on 03/26/2025 18:06:34 Discharge Plan Discharge Clinical Impression: Abdominal pain Patient Disposition: Home, Self-Care Instructions: Abdominal Pain (ED) Additional Instructions: Your workup in the ER today was reassuring. This includes your labs, CT scan of the pelvis and urinalysis. Follow up with your GI doctor in your primary doctor. Return for new or worsening symptom Prescriptions: New oxycodone 5 mg tablet 5 mg PO Q6H PRN (Reason: severe pain (scale score 7-10)) Qty: 9 0RF Rx Instructions: Partial Fill upon patient request. No Action solifenacin [Vesicare] 5 mg tablet 5 mg PO DAILY 30 Days Qty: 30 0RF albuterol sulfate [ProAir HFA] 90 mcg/actuation Hfa Aerosol Inhaler 2 puff INHALATION Q4-6H PRN (Reason: Shortness Of Breath) trazodone 50 mg tablet 50 mg PO BEDTIME cyclobenzaprine 5 mg tablet 5 mg PO BEDTIME PRN (Reason: muscle spasm) Qty: 14 0RF ferrous sulfate 325 mg (65 mg iron) tablet 325 mg PO DAILY Qty: 90 2RF oxycodone 5 mg tablet 5 mg PO Q6-8H PRN (Reason: pain (scale score 4-6)) 7 Days Qty: 24 0RF Rx Instructions: Partial Fill upon patient request. metoprolol succinate 25 mg tablet extended release 24 hr 12.5 mg PO DAILY omeprazole 20 mg capsule,delayed release(DR/EC) 20 mg PO DAILY primidone 50 mg tablet 50 mg PO BID lorazepam 0.5 mg tablet 0.5 mg PO NEEDED PRN (Reason: Anxiety) trazodone 100 mg tablet 100 mg PO BEDTIME diazepam 10 mg tablet 10 mg PO ONCE PRN (Reason: anxiety) 14 Days Qty: 14 0RF Rx Instructions: crush and place rectally for pelvic floor pain with water based lubricant - use in evening Print Language: Telugu
[2025-03-26] MEDS: Lactated Ringers 1,000 ML 999 ML IV (16:54)
[2025-03-26] MEDS: iohexoL 350 MG/ML 100 ML INFUS..BTL 85 ML IV (17:10)
[2025-03-26 17:12] LABS: Lipase 39 U/L (8-78)
[2025-03-26 18:20] VITALS: BP 111/70; PULSE 68; RESP 18; TEMP 36.7; O2SAT 96
[2025-03-26] MEDS: oxyCODONE HCl Immed Release 5 MG TABLET PO (19:35)
--- NOTE | 2025-03-26 19:38 | PC.NURSE ---
patient reports pain return to 9/10. medicated per mar prior to discharge.
[2025-03-26 19:50] VITALS: BP 137/78; PULSE 78; RESP 18; TEMP 36.7; O2SAT 96
== END 2025-03-26 19:51 | disposition home or self-care (01) ==
PROVIDERS: Physician Assistant; Physician Assistant Medical; Emergency Provider Emergency Medicine Emergency Medical Services; PCP Internal Medicine
DX: R10.30 Lower abdominal pain, unspecified (principal); K51.90 Ulcerative colitis, unspecified, without complications; Z93.3 Colostomy status; Z90.49 Acquired absence of other specified parts of digestive tract; Z88.0 Allergy status to penicillin; Z88.8 Allergy status to other drugs, medicaments and biological substances
CPT/HCPCS: 36415; 74177; 80053; 81003; 83690; 83735; 85025; 85652; 86140; 96361; 96374; 96375; 99285; J1171; J2270; J2405; J7120; Q9967

== ENCOUNTER → 2025-03-26 16:52 | Outpatient (BNV) | payer OTHER, SELFPAY | PROVIDERS: Emergency Provider Emergency Medicine Emergency Medical Services; PCP Internal Medicine; Visit Provider Radiology Diagnostic Radiology | DX: K44.9 Diaphragmatic hernia without obstruction or gangrene (principal); Z96.641 Presence of right artificial hip joint; Z96.82 Presence of neurostimulator; Z93.3 Colostomy status | CPT/HCPCS: 74177 ==

== ENCOUNTER 2025-04-07 10:03 | Emergency (ER) | payer OTHER, SELFPAY ==
--- NOTE | ~2025-04-07 | XR_ITS ---
CLINICAL HISTORY: acute on chronic back pain 3 views lumbar spine Comparison: 04/20/2024 Findings: No fractures or dislocations. Normal vertebral body alignment. Intervertebral disc heights are well-maintained. There is similar mild diffuse lumbar vertebral body spurring. There is similar mild facet arthropathy, L4-S1.. Previously noted right sacral neurostimulator lead has been abandoned with abandoned distal lead segment. New left sacral neurostimulator lead in place.. Impression: 1. Similar-appearing lumbar degenerative changes as described above. 2. Sacral neurostimulator hardware revision as described above. This document has been electronically signed by: Wenceslao Seay MD on 04/07/2025 15:02:06
[2025-04-07 10:18] VITALS: BP 138/70; BP 146/76; PULSE 67; PULSE 72; RESP 14; TEMP 36.6; O2SAT 100; BMI 21.6
--- OUTSIDE RECORDS SUMMARY | 2025-04-07 10:39 | XMS_ITS | Clinical Summary ---
Author Organization [facility] Address [address] [place] [id number] Phone Care Team Providers Care Carton Making Machine Operator Name Role Phone Pcp, Unknown [...] Active ferrous sulfate 325 mg (65 mg [place] iron) tablet Take 325 mg by mouth [...] on file Insurance [facility] [employer] MEDICARE REPLACEMENT [place] [id number] [facility] MEDICARE REPLACEMENT [facility] MEDICARE REPLACEMENT [facility] MEDICARE REPLACEMENT [facility] MEDICARE REPLACEMENT Care Teams Carton Making Machine Operator Relationship Specialty Start Date End Date Pcp, Unknown PCP - General 02/23/23 Additional Source Comments The information contained in this document represents components of the legal health record. It is not the complete legal health record.[facility]
--- OUTSIDE RECORDS SUMMARY | 2025-04-07 10:40 | XMS_ITS | Data Portability ---
Author Organization Attributor [facility], [facility] Address [address] [place] [address] Care Team Providers Care Family Service Caseworker Name Role Phone ELVI LAWANDA ADULT MEDICINE Referring Provider [facility] OTHER Assessment Encounter Date Assessment Date Assessment LastModified by Organization Details LastModified Time 07/30/2023 07/30/2023 I provided real -time medical direction via phone for this encounter, and was available for additional phone based assistance as needed. I have reviewed and agree with the Assessment and Plan as documented by the Larriman. Patient given the opportunity to ask questions. As per above, service called for bladder pain and found this 58 riki with chronic interstitial cystitis c/b suprapubic pain. C/o 4d suprapubic sharp pain that is throbbing, knife-like and c/w prior episodes. She is soon to have hydroextension procedure. Last ketorlac > 1 wk prior. Regular PO food and fluid intake. Per music typographer on the scene, VSS and she is [...] assessment and plan as documented by the music typographer and would add/emphasize: Patient seen for acute [...] solution 2023 024 [facility], [address] [place], [address], 4 19:46:11 ondansetr on HCl (PF) 4 mg/2 mL injection solution 2023 024 [facility], [address] [place], [address], 4 18:50:03 ketorolac 30 mg/mL injection solution 2023 024 [facility], [address] [place], [address], 4 18:50:03 Zofran 4 mg tablet 2023 024 [facility], [address] [place], [address], 4 21:22:51 ketorolac 30 mg/mL injection solution 2023 024 [email or web address] [facility], [address] [facility] [place], [address], 4 21:23:56 ketorolac 30 mg/mL injection solution 2023 Adilene mayra [facility], [address] [facility], [facility], [place], [address], 4 22:56:59 Patient TargetsNo targets recorded. Patient [...] n nausea Not available Not available 08/12/2022 25690 3 RxNorm Lula Camacho MD [address] [place] [address],[address], [place], [address], [employer] 3 16:51:49 1995 Augmentin medicatio n Not available Not available Not available 08/12/2022 52817 2 RxNorm got mouth sores Lula Camacho MD [address] [place] [address],[address], [place], [address], [employer] 3 16:52:05 1996 acetamino phen medicatio n Not available Not available Not available 08/12/2022 161 RxNorm Not Available [facility] - production 4 03:45:01 1997 simvastat in medicatio n Not available Not available Not available 08/12/2022 32831 RxNorm Lula Camacho MD [address] [place] [address],[address], [place], [address], [employer] 3 16:52:28 Medications Name Sig Start Date [...] Details Last Updated DateTime 4 98.4 [degF] 65491.5 12 g 98 % 98 % 18 /min 90 /min 104/64 mm[Hg] Not Available [employer] 4 21:02:10 Date Recorded Respiratory rate Body weight Oxygen saturation Oxygen saturation in Arterial blood by Pulse oximetry Body temperature Body height Heart rate Systolic And Diastolic Systolic And Diastolic Provider Name and Address Organization Details Last Updated DateTime 4 14 /min 16286.9 6 g 76 % 76 % 98.5 [degF] 165.1 cm 74 /min 98/64 mm[Hg] 95/56 mm[Hg] Not Available [email or web address] 4 20:24:53 Date Recorded Oxygen saturation Oxygen saturation in Arterial blood by Pulse oximetry Respiratory rate Heart rate Body temperature Systolic And Diastolic Provider Name and Address Organization Details Last Updated DateTime 4 97 % 97 % 16 /min 80 /min 98.1 [degF] 110/64 mm[Hg] Not Available [employer] 4 19:12:03 Date Recorded Body temperature Respiratory rate Oxygen saturation Oxygen saturation in Arterial blood by Pulse oximetry Heart rate Systolic And Diastolic Provider Name and Address Organization Details Last Updated DateTime 4 98.4 [degF] 16 /min 98 % 98 % 86 /min 100/68 mm[Hg] Not Available [email or web address] 4 16:25:08 Date Recorded Respiratory rate Heart rate Oxygen saturation Oxygen saturation in Arterial blood by Pulse oximetry Body temperature Systolic And Diastolic Provider Name and Address Organization Details Last Updated DateTime 4 16 /min 88 /min 96 % 96 % 96 [degF] 97/63 mm[Hg] Not Available [email or web address] 4 17:24:48 Social History None recorded. Functional Status None recorded. Mental Status None recorded. Family History Nothing Reported. Medical History No medical history recorded. Gynecological HistoryNo gynecological history recorded. Obstetrics History GPAL:G 0 P 0 0 0 0 Past Encounters Encounter ID Performer Location Encounter Start Date Encounter Closed Date Diagnosis/Indication Diagnosis SNOMED-CT Code Diagnosis ICD10 Code Diagnosis IMO Codes Diagnosis Note [id number] Tha Pierson MD Main - [facility] [address] [place] [address]157[address]111 0 03/24/2022 17:56:02 04/01/2022 18:48:22 Abdominal pain 85334508 R10.9 [id number] Amaury Kent MD Main - [facility] [address] [place] [address]1997[address]605 0 03/26/2022 17:40:48 03/30/2022 12:00:01 Abdominal pain 60953690 R10.9 No red flag signs or kidney problems. Will give Toradol 15mg IM x1 [id number] Jordan Chapman MD Main - [facility] [address] [place] [address]38[address]335 0 04/02/2022 17:07:08 04/03/2022 15:18:36 Urinary bladder pain 91296139 R39.82 Patient with exacerbati on of chronic abdominal pain which is attributed to interstiti al cystitis. She is planned for a surgical procedure for this soon. She got relief from toradol at a recent [facility] visit for same symptoms. No history of GI bleeding or chronic kidney disease.Rx toradol IM 15mg x1 [id number] Nelly Pérez MD Main - [facility] [address] [place] [address]32[address]756 0 04/08/2022 14:02:49 04/14/2022 16:18:59 Chronic interstitial cystitis 457133290 N30.10 57 year old female, being evaluated for chronic bladder pain. Per data gathered by music typographer, patient with chronic bladder pain without dysuria, scheduled for a surgical procedure next week. Her symptoms are at baseline, and she is tolerating PO. Her exam is notable for normal vital signs. Cannot take PO NSAIDS, however recalls IM toradol helpful in the past - dose given again today. FU PCP as needed. [id number] Nelly Pérez MD Main - [facility] [address] [place] [address]66[address]781 0 04/22/2022 17:19:46 04/23/2022 11:41:13 Pain in right foot [id number] 26775 M79.671 57 year old female being evaluated [...] [id number] Kylee Hill MD Main - [facility] [address] [place] [address] 96547-771 0 05/03/2022 16:25:00 05/05/2022 09:08:24 Pain in left foot [id number] 59263 M79.672 57 yo F w/ known metatarsal [...] [id number] Lula Camacho MD Main - [facility] [address] [place] [address]29[address]325 0 08/12/2022 15:46:28 08/14/2022 09:39:18 Candidiasis of skin 62568038 B37.2 likely cause of rash Increased frequency of urination 681948170 R35.0 PAT NOT clinically dehydrated -not hyperglyce opal -states has hx non infectious cystitis- has appt w/ urology 09/07- requesting ketorolac for pain- has no hx CKD/ has tolerated 30 mg IM before( previous [facility] visits)- get GI upset w/ nsaids [...] [id number] Derik Bingham MD Main - [facility] [address] [place] [address] 77127-287 0 08/17/2022 11:11:00 08/19/2022 09:27:13 Chronic interstitial cystitis 748326537 N30.10 Localized eruption of skin 605093367 R21 [id number] Kylee Hill MD Main - [facility] [address] [place] [address] 29431-289 0 08/28/2022 22:03:08 08/31/2022 11:13:17 Chronic interstitial cystitis 027721252 N30.10 long standing diagnosis c/b chronic pain. Recieves toradol occasional ly with good effect. No fevers/chi lls/hematu sofi. Will administer 30mg toradol, but advised pt to discuss timing of additional NSAIDs with surgical team as she is planned for surgery in 10d. will also prescribe 4d zofran for intermitte nt chornic nausea associated to chronic cystitis. Qtc<500. Of note, prescripti on called into [facility] over the phone [id number] Angie Amador MD Main - [facility] [address] [place] [address]22[address]896 0 10/11/2022 16:10:03 10/12/2022 10:16:13 Abdominal pain 87344352 R10.9 Chronic low back pain 27 7887673 M54.50 Pain 57196568 R52 [id number] Derik Bingham MD Main - [facility] [address] [place] [address] 52091-702 0 10/16/2022 17:37:00 10/19/2022 09:55:32 Right upper quadrant pain 015643946 R10.11 [id number] Jareth David MD Main - [facility] [address] [place] [address] 30740-802 0 10/29/2022 17:40:14 10/30/2022 08:56:05 Generalized abdominal pain 067966366 R10.84 This 57-year-ol d female had a [...] PCP. The patient agreed with this plan. [id number] Amaury Kent MD Main - [facility] [address] [place] [address]20[address]129 0 10/31/2022 15:42:54 11/03/2022 13:02:01 Generalized abdominal pain 917541254 R10.84 Generalize d abdominal pain similar to prior episodes. Mild nausea and sxs of dehydratio n, poor fluid intake. Had normal BMP on prior visit. Tolerated IVF, Zofran, Toradol in the past. No red flag signs. Will reorder. [id number] Leander Rosa MD Main - [facility] [address] [place], [place] [address] 11/04/2022 14:24:04 11/06/2022 13:41:01 Abdominal pain 30654248 R10.9 [id number] Kylee Hill MD Main - [facility] [address] [place] [address] 0 11/15/2022 15:34:46 11/25/2022 10:16:27 Chronic interstitial cystitis 929727410 N30.10 case supervised and discussed with music typographer. Patient was given opportunit y to ask questions, warning signs/symp toms of pertinent medical emergency reviewed. long standing diagnosis c/b chronic pain. Recieves toradol occasional ly with good effect. No fevers/chi lls/hematu sofi. Will administer 30mg toradol [id number] Latosha Pressley MD Main - [facility] [address] [place], [place] [address] 11/23/2022 20:46:17 11/24/2022 10:07:44 Chronic interstitial cystitis 624108305 N30.10 [id number] Amaury Kent MD Main - [facility] [address] [place] [address] 62363-013 0 11/28/2022 16:57:59 11/28/2022 23:15:41 Chronic interstitial cystitis 580465718 N30.10 Has upcoming cystocscop y, amenable to 30mg IM Toradol now Pain 08574041 R52 [id number] Jareth David MD Main - [facility] [address] [place] [address] 67349[address]605 0 12/13/2022 16:50:19 12/14/2022 10:41:58 Essential tremor 231418064 G25.0 This 57-year-ol d female with a history of ulcerative colitis and a resting tremor called [facility] because she thought she might be dehydrated . At the visit her hydration status looked good and her oral intake was adequate. She was advised to follow-up with her PCP. The patient agreed with this plan. [id number] [facility] [address] [place] [address] 0 02/22/2023 18:33:03 02/23/2023 08:59:17 Abdominal pain 23026731 R10.9 Agree flare of interstiti al cystitis/p atient has appointmen t to talk to her urologist in 48 hours/but not in person-adv ised since she has not had ketorolac in a while and her H & H are stable-we will give her a dose, however I advised she could develop a reaction to parenteral ketorolac similar to ibuprofen- she verbalized understand ing Hypokalemia 24524619 E87 .6 Unsure of etiology since the [...] and tomorrow - she verbalized she would [id number] [facility] [address] [place] [address] 0 02/24/2023 11:00:53 02/24/2023 12:04:06 Hypokalemia 30505925 E87.6 Unsure of etiology since the patient denies nausea/ vomiting /diarrhea or excessive urine output/ now resolved with po K//lactate is slightly high but these new machines have been reading mildly high on everyone I have taken care of in the past week-doubt significan t given stable exam and vital signs and the fact that she is afebrile. [id number] Amaury Kent MD Main - [facility] [address] 04/15/2023 15:37:09 04/16/2023 12:56:31 Abdominal pain 58171821 R10.9 Acute on chronic. Normal vital signs. No red flag signs or kidney problems. Will give Toradol 30mg IM x1. Discussed red flag signs for which to seek higher level of care. [id number] Sofiya Frye MD Main - [facility] [address] [place] [address] 84789-639 0 04/27/2023 21:55:53 04/28/2023 10:39:48 Chronic pain 35137292 G89.29 [id number] Corrie Pryor MD Main - [facility] [address] [place] [address] 10995-643 0 05/01/2023 12:37:10 05/02/2023 15:48:01 Chronic interstitial cystitis 863205745 N30.10 Evaluation in the field was performed by my music typographer colleague, as noted above, I provided real-time [...] shortness of breath, cough, chest pain, fever. [id number] Nelly Pérez MD Main - [facility] [address] [place] [address] 18080-625 0 05/10/2023 15:45:31 05/10/2023 22:56:22 Abdominal pain 94584445 R10.9 58 year old female with a [...] assessment and plan as documented by the music typographer. I provided real-time medical direction for this encounter and was immediatel y available to provide additional phone-base d assistance as needed. We discussed the diagnostic uncertaint y of home visits and associated risks. We discussed the need to seek care urgently/e mergently in the setting of any new or worsening symptoms. [id number] Jareth David MD Main - [facility] [address] [place] [address] 22098-241 0 05/18/2023 14:57:58 05/19/2023 10:20:02 Irritable bowel syndrome 50359306 K58.9 This 58-year-ol d female with recurrent GI pain likely due to IBS called today because of pain since this AM. She doesn't tolerate oral pain medication s due to GERD, but she has responded to Toradol in the past. I ordered Toradol 30 mg IM. She will follow-up with her PCP. The patient agreed with this plan. [id number] Kellie Woods MD Main - [facility] [address] [place] [address] 76417-281 0 05/21/2023 12:59:15 05/24/2023 16:53:56 Urinary symptoms 453335788 R39.9 Abdominal pain 82390999 R10.9 [id number] NO MATHIS MD Main - [facility] [address] [place] [address] 27830-428 0 06/06/2023 11:39:22 06/08/2023 10:04:30 Abdominal pain 97346865 R10.9 Evaluation in the field was performed by my music typographer colleague, as noted above, I provided real-time [...] N/V. Last BM this morning and normal. Savage Sign negative that makes intraperit baxter inflammati on less likely. Psoas and Obturator signs negative .Pt not on anticoagul ation Impression :Acute on chronic abdominal pain Plan:Ketor olac 15 mg IM [id number] to call her GI doctor on Wednesday [...] concerns Latosha Pressley MD Main - [facility] [address] [place] [address] 88199-131 0 07/27/2023 17:32:53 07/27/2023 21:48:46 Chronic interstitial cystitis 664731303 N30.10 Sofiya Frye MD Main - [facility] [address] [place] [address] 50328-758 0 07/30/2023 21:02:08 07/31/2023 12:36:08 Spasm of urinary bladder 635993127 N32.89 [id number] Duong Panchal MD Main - [facility] [address] [place] [address] 09472-498 0 08/24/2023 20:24:52 08/25/2023 11:16:42 Ulcerative colitis 61385321 K51.90 Patient reports a history of ulcerative colitis followed by GI. She reports that she has abdominal pain consistent with her typical chronic abdominal pain. Denies any new complaints . Reports a recent colonoscop y. No hematochez ia or melena. Requesting ketorolac as that typically resolves her symptoms. Denies any other complaints or concerns. [id number] Nelly Pérez MD [facility] - [address] [address] 10/11/2023 19:12:01 10/11/2023 22:15:10 Chronic interstitial cystitis 945895288 N30.10 57 year old female, being evaluated for acute on chronic bladder pain. Per data gathered by music typographer, patient with chronic bladder pain without dysuria, [...] assessment and plan as documented by the music typographer. I provided real-time medical direction for this encounter and was immediatel y available to provide additional phone-base d assistance as needed. We discussed the diagnostic uncertaint y of home visits and associated risks. We discussed the need to seek care urgently/e mergently in the setting of any new or worsening symptoms. [id number] Tha Pierson MD Main - [address] [address] 01/23/2024 16:25:05 01/24/2024 10:37:03 Abdominal pain 89641574 R10.9 [id number] Nelly Pérez MD [facility] - [address] [address] 04/18/2024 17:24:45 04/18/2024 22:03:45 Headache 37618146 R51.9 59 year old female being evaluated [...] assessment and plan as documented by the music typographer. I provided real-time medical direction for this [...] Babb Member ID Guarantor Name 11/04/2022 1 [facility] - DOS PRIOR TO 2022 - DUAL ELIGIBLE (MEDICARE REPLACEMENT/ADV ANTAGE - HMO) Randi Lowery [id number] Randi Lowery 04/18/2024 1 [facility] - DOS ON OR AFTER 2022 - DUAL ELIGIBLE - [employer] OPTIONS AND ONE CARE (MEDICARE REPLACEMENT/ADV ANTAGE - HMO) Randi Lowery [id number] Randi Lowery Notes Date Note Type Note [...] ....................... ....................... ....................... ....................... ....................... ....................... ... Larriman Note From Gómez Kumar: Pt co abdominal pain. Has cystitis. Having surgery Wednesday. Was seen by RustKAREN Wednesday was given toradol with relief ..pt wanting toradol to hold her over for the weekend until surgery. Pt denies urinary symptoms, fever nausea vomiting diarrhea , cp sob, kidney problems. Baseline vitals assessed. [facility] contacted and 30mg toradol IM. Pt education on signs indicating the ER. Larriman Allergies: Acetaminophen, Ibuprofen ....................... ....................... ....................... ....................... ....................... ....................... ... Disposition: Fulfilled Sofiya Frye MD [address] [place] [address],[address], [place], [address], [facility] [employer] 07/30/2023 21:05:26 08/24/2023 text/html CRC Nurse Triage Notes (Dave Cerna): Patient Reports: Inability to tolerate foods, fluids or daily medications Denies: Vague abdominal pain greater than 24 hours Nausea with or without vomiting Chief Complaints: Weakness/Lethargy, Dehydration, Abdominal Pain PMH: COPD/Asthma Allergies: Acetaminophen, Ibuprofen Comments: Quality Control Specialist verified the member's name//address and phone [...] ....................... ....................... ....................... ....................... ....................... ....................... ... Larriman Note From Spencer Reis: 58 yo F [...] but pt needs to follow up with hand inspector to not just mask the pain but cure the main issue. 30mg given left deltoid. explained risks of advertising strategist use of Toradol/NSAIDs. discussed red flags with pt and friend. ....................... ....................... ....................... ....................... ....................... ....................... ... Disposition: Fulfilled Duong Panchal MD [address] [facility],[address], [place], [address], [email or web address] 08/24/2023 22:57:14 10/11/2023 text/html CRC Nurse Triage Notes (Mayra Jaime): Reason For Request: Pt reporting introsystalitis, pain, nausea (for a couple days), states bladder surgery for next week>is requesting toradol and zofran Chief Complaints: Nausea/Vomiting, Pain PMH: COPD/Asthma Allergies: Acetaminophen, Ibuprofen Comments: Quality Control Specialist verified the member's name//address and phone [...] ....................... ....................... ....................... ....................... ....................... ....................... ... Larriman Note From Corey Moralez: Pt reporting acute [...] ....................... ... Disposition: Fulfilled Nelly Pérez MD [address] [place] [address],[address], [place], [address], [facility] [employer] 10/11/2023 21:24:08 01/23/2024 text/html CRC Nurse Triage [...] got in contact with mbr around 1450. Quality Control Specialist verified the member's name//address and phone number. Mbr reporting generalized abdominal discomfort as well as nausea on going for the last few hours. Mbr reports awaiting bladder surgery which is scheduled for next month. [facility] has been seen in the past by Oscar for similar and [facility] Toradol has worked well for her pain in the past. Education provided on the response time and the member was advised to monitor reported s/s and seek emergency treatment if needed -Abdullahi Moeller RN ....................... ....................... ....................... ....................... ....................... ....................... ... Larriman Note From Yennifer Celeste: Pt reports 2-3 days of nausea, vomiting with lower abd pain. A&ox3, vss, afebrile; c ramping in lower quadrants, mildly painful on palpation, denies cp, sob, back or flank pain, headache, dizziness, lightheadedness. [facility] consulted, 4mg zofran and 15mg toradol IM administered. Pt will follow up with pcp Wednesday. Red flags reviewed. Larriman Allergies: Acetaminophen, Ibuprofen ....................... ....................... ....................... ....................... ....................... ....................... ... Disposition: Fulfilled Tha Pierson MD [address] [place] [address],[address], [place], [address], [email or web address] 01/23/2024 18:50:39 04/18/2024 text/html CRC Nurse Triage Notes (Leslie oLpez): Reason For Request: Pt is experiencing severe [...] ....................... ....................... ....................... ....................... ....................... ....................... ... Larriman Note From Corey Moralez: This 59-year-old female [...] is soft, nontender, nondistended. No lower extremity edema.[facility] contacted and patient [...] ....................... ....................... ....................... ....................... ....................... ....................... ... [facility] Consulted: Nelly Pérez ....................... ....................... ....................... ....................... ....................... ....................... ... Disposition: Fulfilled Nelly Pérez MD [address] [facility] [address], [place], [address], [employer], [facility] 04/18/2024 19:46:24 OBGyn Episode No OBEpisode recorded.
--- OUTSIDE RECORDS SUMMARY | 2025-04-07 10:40 | XMS_ITS | Encounter Summary ---
Author Organization [facility] Address [address] [place] [phone] Phone Care Team Providers [facility] [employer] Name Role Phone Unknown, Unknown Primary Care Provider Brett Whitaker MD Primary Care Provider [phone] Pcp, Unknown Primary Care Provider Unavailabl e Encounter Details Date Type Department Care Team (Late st Contact Info) Description 01/21/2023 Transcribe Orders [facility] Specimen Processing [address] [place] [address] Stewart Carlson MD [address] [facility], [address] [place] [address] [email or web address] Anemia, unspecified type (Primary Dx) Social History [...] VITAMIN B12 1,019 232 - 1,245 pg/mL [facility] 01/21/2023 5:50 AM EDT 01/21/2023 12:07 PM EDT us Stewart Carlson MD LAB BLOOD ORDERABLES Final Resul t Performing Organization Address [facility]/ZIP Co de Phone Number [address] [address] * (ABNORMAL) Iron and iron binding capacity (01/21/2023 5:50 AM EDT) IRON 67 30 - 160 ug/dL [facility] IRON BINDING CAPACITY 222(L) 228 - 428 ug/dL [facility] TRANSFERRIN SATURAT. 30 15 - 50 % [facility] 01/21/2023 5:50 AM EDT 01/21/2023 12:07 PM EDT us Stewart Carlson MD LAB BLOOD ORDERABLES Final Resul t Performing Organization Address [facility] Co de Phone Number [address] [address] * Ferritin (01/21/2023 5:50 AM EDT) FERRITIN 56 13 - 150 ug/L [facility] 01/21/2023 5:50 AM EDT 01/21/2023 12:07 PM EDT us Stewart Carlson MD LAB BLOOD ORDERABLES Final Resul t Performing Organization Address [facility] Co de Phone Number [address] [address] * (ABNORMAL) Folate (01/21/2023 5:50 AM EDT) FOLIC ACID 3.0(L) 4.2 - 19.9 ng/mL [facility] 01/21/2023 5:50 AM EDT 01/21/2023 12:07 PM EDT us Stewart Carlson MD LAB BLOOD ORDERABLES Final Resul t Performing Organization Address [facility]/ZIP Co de Phone Number [address] [address] * (ABNORMAL) CBC (01/21/2023 5:50 AM EDT) WBC 6.33 4.00 - 11.00 K/uL [facility] RBC 2.92(L) 3.72 - 5.30 M/uL [facility] HGB 8.4(L) 11.4 - 15.9 g/dL [facility] HCT 27.7(L) 34.2 - 46.8 % [facility] PLT 228 140 - 430 K/uL [facility] MCV 94.9 78.0 - 97.[address] [facility] MCH 28.8 25.0 - 33.[address] [facility] MCHC 30.3(L) 32.0 - 36.0 g/dL [facility] RDW 16.9(H) 11.0 - 16.0 % [facility] MPV 11.5 8.4 - 12.[address] [facility] 01/21/2023 5:50 AM EDT 01/21/2023 12:07 PM EDT us Stewart Carlson MD LAB BLOOD ORDERABLES Final Resul t [facility] [address] [place] [address] documented in this encounter Visit Diagnoses Diagnosis Anemia, unspecified type- Primary documented in this encounter Care Teams [facility] [facility] [employer] Relationship Specialty Start Date End Date Unknown, Unknown, PCP - General 01/21/23 01/27/23 Brett Su MD [address] [place] [id number] PCP - General Internal Medicine 01/28/23 01/28/23 Pcp, Unknown PCP - General 02/23/23 documented as of this encounter Additional Source Comments The information contained in this document represents components of the legal health record. It is not the complete legal health record.[facility]
[2025-04-07 10:43] LABS: MANUAL DIFF FLAG NO
[2025-04-07 10:45] LABS: Hematocrit 46.6 % (37.0-47.0); Hemoglobin 15.5 g/dl (12.0-16.0); Imm Gran Abs Auto 0.02 X10*3/uL (0.00-0.03); Imm Gran Pct Auto 0.3 % (0.0-0.4); Lymphocytes Absolute Auto 2.2 X10*3/uL (1.2-4.9); Mean Corpuscular HGB Conc 33.3 g/dl (31.0-35.0); Mean Corpuscular Hemoglobin 29.7 pg (27.0-33.0); Mean Corpuscular Volume 89.3 fL (80.0-98.0); NRBC Abs Auto 0.000 X10*3/uL (0.0-0.012); NRBC Pct Auto 0.0 /100WBC (0.0-0.2); Platelet Count 224 X10*3/uL (160-400); Red Blood Count 5.22 X10*6/uL (4.20-5.50); White Blood Count 6.6 X10*3/uL (4.8-10.8)
[2025-04-07 11:01] LABS: Alanine Aminotransferase 27 U/L (0-31); Albumin Level 4.5 g/dL (3.5-5.0); Alkaline Phosphatase 141 U/L (39-117); Anion Gap 12 (12-20); Aspartate Amino Transferase 52 U/L (5-31); Blood Urea Nitrogen 14 mg/dL (9-16); Calcium 10.2 mg/dL (8.4-10.2); Carbon Dioxide 30 mmol/L (22-29); Chloride 101 mmol/L (96-108); Creatinine Clr Calc Pharmacy 68.9; Estimated Glomerular Filt Rate > 60; Potassium 3.9 mmol/L (3.3-5.1); Sodium 139 mmol/L (135-145); Total Protein 7.8 g/dL (6.5-8.0)
[2025-04-07 11:05] VITALS: BP 146/76; PULSE 67; RESP 14; TEMP 36.6; O2SAT 100
--- NOTE | 2025-04-07 11:17 | ED.BACK ---
HPI - Back Pain/Injury General Chief Complaint: Back Pain/Injury Stated Complaint: lower sharp back pain Time Seen by Provider: 04/07/25 11:16 Source: patient and EMS Mode of arrival: EMS Limitations: no limitations History of Present Illness ED Provider: RAIZA RAMOS PA-C HPI Narrative: 60 year old female with pmhx significant for asthma, anxiety, SVT, lumbar radiculopathy, interstitial cystitis s/p hypodistention, ulcerative colitis s/p colostomy presents to the ED today for evaluation of acute on chronic back pain x3 days. Admits to pain to her low back with radiation down her left leg to her knee. Reports nausea associated with the pain, no vomiting. Admits to taking a leftover oxycodone yesterday which helped temporarily with her pain. Patient states that Dilaudid is typically the only medication that helps with her back pain. 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 Chronic numbness/tingling unchanged. Denies injury/trauma. Ambulates without assistive devices at baseline. Denies history of IV drug use. Denies fever, chills, neck pain, bowel or bladder incontinence or retention, numbness/tingling/weakness in the lower extremities, dysuria, hematuria, saddle anesthesia. On my initial interview, patient is very frustrated, tearful. States that she has been following with pain management and had an outpatient MRI ordered for further eval into her back pain. She reports calling radiology a few days ago and finding out that she can not undergo lumbar MRI as her bladder stimulator is not MRI compatible. Her pain management provider has ordered a lumbar CT instead, she has not scheduled this yet. She has been attempting to get in contact with her pain management provider over the last 2 days however has not heard back. She is not currently on a pain contract. Related Data Home Medications ?Medication ?Instructions ?Recorded ?Confirmed albuterol sulfate 90 mcg/actuation 2 puff inhalation Q4-6H PRN 04/25/20 02/19/25 aerosol inhaler (ProAir HFA) Shortness Of Breath metoprolol succinate 25 mg 12.5 mg PO DAILY 08/08/21 02/19/25 tablet,extended release 24 hr omeprazole 20 mg capsule,delayed 20 mg PO DAILY 11/03/21 02/19/25 release trazodone 50 mg tablet 50 mg PO BEDTIME 10/15/23 02/19/25 lorazepam 0.5 mg tablet 0.5 mg PO NEEDED PRN Anxiety 04/07/24 02/19/25 trazodone 100 mg tablet 100 mg PO BEDTIME 04/07/24 02/19/25 primidone 50 mg tablet 50 mg PO BID 06/13/24 02/19/25 Previous Rx's ?Medication ?Instructions ?Recorded cyclobenzaprine 5 mg tablet 5 mg PO BEDTIME PRN muscle spasm 07/08/24 #14 tabs ferrous sulfate 325 mg (65 mg 325 mg PO DAILY #90 tabs 09/06/24 iron) tablet solifenacin 5 mg tablet (Vesicare) 5 mg PO DAILY 30 days #30 tabs 02/01/25 diazepam 10 mg tablet 10 mg PO ONCE PRN anxiety 14 days 02/08/25 #14 tabs oxycodone 5 mg tablet 5 mg PO Q6-8H PRN pain (scale 02/19/25 score 4-6) 7 days #24 tabs oxycodone 5 mg tablet 5 mg PO Q6H PRN severe pain (scale 03/26/25 score 7-10) #9 tabs oxycodone 5 mg tablet 5 mg PO Q8H PRN pain (scale score 04/07/25 7-10) #10 tabs prednisone 20 mg tablet 60 mg (3 x 20 mg) PO DAILY 5 days 04/07/25 #15 tabs Allergies Allergy/AdvReac Type Severity Reaction Status Date / Time amoxicillin (From AUGMENTIN) Allergy Severe SEVERE Verified 04/07/25 10:22 DIARRHEA [id number]-[id number]-LvG Reductase Allergy Intermediate muscle Verified 04/07/25 10:22 Inhibitor ([id number] aches, REDUCTASE INHIBITOR) cramps acetaminophen (ACETAMINOPHEN) AdvReac Severe GI upset. Verified 04/07/25 10:22 Pt confirmed NOT allergic to oxycodone NSAIDS (Non-Steroidal AdvReac Severe Gastrointestinal Verified 04/07/25 10:22 Anti-Inflamma Upset oxycodone (From Percocet) AdvReac Gastrointestinal Verified 03/26/25 14:28 Upset Review of Systems Review of Systems: Constitutional: No fever, chills, fatigue, night sweats, weight changes ENT/Mouth: No ear pain, hearing loss, nasal congestion, sinus pain, rhinorrhea, sore throat Eyes: No eye pain, swelling, redness, vision changes, discharge Cardio: No chest pain, palpitations, JAMES, orthopnea, peripheral edema Pulm: No SOB, cough, sputum, wheezing, dyspnea, hemoptysis GI: No nausea, vomiting, hematemesis, abdominal pain, diarrhea, constipation, hematochezia, melena : No irregular bleeding, dysuria, frequency, urgency, hesitancy, hematuria, flank pain, urinary flow changes, urinary incontinence or retention MSK: +back pain, No neck pain, joint pain, myalgias Skin: No lesions, rashes Neuro: No weakness, numbness, paresthesias, LOC, dizziness, headache All other systems reviewed and are negative. [facility] Past Medical History Attestation statement: The following information was validated with the patient. Source: old records reviewed and nursing notes reviewed Medical History Sacral nerve stimulator present Colostomy in place On beta morgan at home Anxiety SVT (supraventricular tachycardia) Depression Back pain History of gastrostomy tube placement Hx of ulcerative colitis Hx of cystitis History of anxiety Asthma Elevated cholesterol Surgical History History of bowel diversion surgery History of tubal ligation History of endometrial ablation History of bladder surgery Social History Social History Household Members: Significant Other Household Members Other:: s.o can stay to help when needed Housing: Apartment Are you a primary residential child care counselor to a significant other at home: No Do you presently have visiting nurse or other home services: No 75 years or older and lives alone: No Alcohol intake: current Alcohol intake frequency: does not drink Alcohol type: wine Patient Tobacco Use Status: Current someday Tobacco user Tobacco use type: Cigarette Cigarettes Per Day: 4 Years Smoked: 25 Current occupational status: disabled Physical Exam Vital Signs: Vital Signs: Last Vital Signs Temp 98.2 F 04/07/25 15:59 Pulse 59 04/07/25 15:59 Resp 16 04/07/25 15:59 BP 142/73 H 04/07/25 15:59 Pulse Ox 99 04/07/25 15:59 O2 Del Method Room Air 04/07/25 15:59 BMI result Body Mass Index 21.6 hypertensive, vitals are otherwise wnl General: Well appearing, in no acute distress. Skin: Warm, dry, intact. No rashes or lesions. Head: Normocephalic, atraumatic. EENT: Hearing is intact b/l. Conjunctiva clear. PERRLA. EOM intact. Moist mucous membranes.? Neck: Supple without LAD Cardiac: Chest wall symmetric. RRR Lungs: Normal respiratory effort without accessory muscle use. CTA bilaterally? Abdomen: Soft, non-tender, non-distended. No rebound tenderness or guarding Back: no midline spinous tenderness or step offs, there is b/l lumbar paraspinal muscle tenderness, no overlying skin changes. able to flex b/l hips without pain. NV intact distally. Ext: Upper and lower extremities atraumatic, without tenderness, deformity, swelling or erythema Neuro: AOx3. Normal speech. Strength 5/5 intact throughout. No saddle anesthesia. Sensation intact to light touch. Course Course Course Narrative: cbc without leukocytosis or left shift. no anemia, h&h stable. chemistry without acute electrolyte abnormality requiring intervention. UA without infection, blood. lumbar xr showing degenerative changes, no acute fractures Medicated w/ dilaudid with good effect. she states her pain is responsive to home oxycodone however she has run out of this. plan to d/c her home with 3 day script of oxy for break through pain along with 5 day course of prednisone. advised f/u with pain management wednesday. She is amvulating with steady gait to the bathroom assisted by walker. Patient has remained stable throughout ED visit today. Discussed worrisome signs and symptoms and when to return to the ED. All questions answered at this time. Patient is agreeable with disposition and stable for discharge. Medications Administered Discontinued Medications Generic Name Dose Route Start Last Admin Trade Name Freq PRN Reason Stop Dose Admin Hydromorphone HCl 1 mg 04/07/25 11:49 04/07/25 12:04 Hydromorphone Hcl 1 Mg/Ml Syringe IVPUSH 04/07/25 11:50 1 mg ONCE ONE Administration Protocol Hydromorphone HCl 0.5 mg 04/07/25 15:09 04/07/25 15:35 Hydromorphone Hcl 0.5 Mg/0.5 Ml Syringe IVPUSH 04/07/25 15:10 0.5 mg ONCE ONE Administration Protocol Lorazepam 0.5 mg 04/07/25 13:49 04/07/25 14:08 Lorazepam 0.5 Mg Tablet PO 04/07/25 13:50 0.5 mg ONCE ONE Administration Naloxone HCl 8 mg 04/07/25 13:31 04/07/25 15:35 Naloxone Hcl Nasal Take Home 4 Mg [place] NOSTRILALT 04/07/25 13:32 Not Given ONCE ONE Medical Decision Making Medical Decision Making [facility] Narrative: 60 year old female with pmhx significant for asthma, anxiety, SVT, lumbar radiculopathy, interstitial cystitis s/p hypo distention, ulcerative colitis s/p colostomy presents to the ED today for evaluation of acute on chronic back pain x3 days. Hypertensive, vitals otherwise WNL. She is well-appearing, lying comfortably on exam bed. there is no midline spinous tenderness or step offs, there is b/l lumbar paraspinal muscle tenderness, no overlying skin changes. able to flex b/l hips without pain. NV intact distally. Concern for MSK sprain/strain, fracture, subluxation, disc herniation, sciatica. Unlikely cord compression, cauda equina, Guillain-Westbrook, epidural abscess. Plan for screening labs, UA, imaging, pain control and re-evaluation. Differential Diagnosis Differential Diagnoses: The differential diagnosis associated with the presentation includes as above Admission/Observation Not indicated. Lab Data [facility] Lab Attestation statement: I reviewed the patient's lab results. as above. 04/07/25 10:40 04/07/25 10:40 Labs: Lab Results 04/07/25 04/07/25 Range/Units 10:40 13:46 WBC 6.6 (4.8-10.8) X10*3/uL RBC 5.22 (4.20-5.50) X10*6/uL Hgb 15.5 (12.0-16.0) g/dl Hct 46.6 (37.0-47.0) % MCV 89.3 (80.0-98.0) fL MCH 29.7 (27.0-33.0) pg MCHC 33.3 (31.0-35.0) g/dl RDW 14.4 (11.0-16.0) % Plt Count 224 (160-400) X10*3/uL MPV 9.5 (9.4-12.3) fL Immature Gran % (Auto) 0.3 (0.0-0.4) % Neut % (Auto) 59.2 (45-73) % Lymph % (Auto) 33.9 (20-40) % [place] % (Auto) 5.0 (2-11) % Eos % (Auto) 1.1 (0-4) % Baso % (Auto) 0.5 (0-2) % Lymph # (Auto) 2.2 (1.2-4.9) X10*3/uL [place] # (Auto) 0.3 (0.1-1.2) X10*3/uL Eos # (Auto) 0.1 (0.0-0.4) X10*3/uL Baso # (Auto) 0.0 (0.0-0.2) X10*3/uL Abs Immat Gran (auto) 0.02 (0.00-0.03) X10*3/uL Absolute Neuts (auto) 3.9 (2.0-8.3) x10*3/uL Absolute Nucleated RBC 0.000 (0.0-0.012) X10*3/uL Nucleated RBC % (auto) 0.0 (0.0-0.2) /100WBC Sodium 139 (135-145) mmol/L Potassium 3.9 (3.3-5.1) mmol/L Chloride 101 (96-108) mmol/L Carbon Dioxide 30 H (22-29) mmol/L Anion Gap 12 (12-20) BUN 14 (9-16) mg/dL Creatinine 0.78 (0.5-1.4) mg/dL Estim Creat Clear Calc 68.9 Estimated GFR > 60 Random Glucose 99 (60-115) mg/dL Calcium 10.2 D (8.4-10.2) mg/dL Total Bilirubin 0.3 (0.0-1.0) mg/dL AST 52 H (5-31) U/L ALT 27 (0-31) U/L Alkaline Phosphatase 141 H (39-117) U/L Total Protein 7.8 (6.5-8.0) g/dL Albumin 4.5 (3.5-5.0) g/dL Urine Color Yellow Urine Appearance Clear Urine pH 5.5 (5.0-9.0) Ur Specific [place] 1.010 (1.005-1.025) Urine Protein Negative (Neg-Trace) mg/dL Urine Glucose (UA) Negative (Negative) mg/dL Urine Ketones Negative (Negative) mg/dL Urine Blood Negative (Negative) Urine Nitrite Negative (Negative) Ur Leukocyte Esterase Negative (Negative) Independent Interpretation I performed an independent interpretation of an: Plain X-Ray Interpretation: xr lumbar spine without compression fracture Radiology Impression Discussion of test interpretation with radiology: I have reviewed the radiologist's reading. Radiologist Impression: Procedure(s): XR lumbar spine 2-3V Accession Number(s): [id number] cc: VIRGIL HAGER MD; Raiza Ramos~ Reason for Exam: acute on chronic back pain CLINICAL HISTORY: acute on chronic back pain 3 views lumbar spine Comparison: 04/20/2024 Findings: No fractures or dislocations. Normal vertebral body alignment. Intervertebral disc heights are well-maintained. There is similar mild diffuse lumbar vertebral body spurring. There is similar mild facet arthropathy, L4-S1.. Previously noted right sacral neurostimulator lead has been abandoned with abandoned distal lead segment. New left sacral neurostimulator lead in place.. Impression: 1. Similar-appearing lumbar degenerative changes as described above. 2. Sacral neurostimulator hardware revision as described above. This document has been electronically signed by: Wenceslao Seay MD on 04/07/2025 15:02:06 Independent Historian Clinical information obtained from an independent historian. History obtained from or confirmed by: EMS External Record Review External record reviewed: Inpatient record Prescription Management I considered prescription management with: Pain Medication and Other (Muscle relaxer, steroid) Social Determinants Patient?s care significantly limited by Social Determinants of Health including: Other Social Determinant of Health Critical Care Time Critical Care Time Critical Care Time: Yes Total Critical Care Time: 35 Attestation: Critical care time in the amount of 35 minutes has been provided to the patient in terms of direct patient care, frequent reevaluation on IV dilaudid, review and interpretation of medical data and results, and management of potentially life-threatening conditions. This is all outside of any medical procedures. Discharge Plan Discharge Clinical Impression: Left lumbar radiculopathy Patient Disposition: Home, Self-Care Instructions: Lumbar Radiculopathy (ED) Additional Instructions: You were evaluated in the Emergency Department today for your back pain.? Your evaluation did not show signs of medical conditions requiring emergent intervention at this time. Avoid bending, lifting, or twisting. Use ice several times per day for 20 minutes at a time for the next 48 hours and then change to heat. I recommend you take 600mg ibuprofen every 6 hours or tylenol 650mg every 6 hours as needed for pain. If needed, you can alternate these medications so that you take one medication every 3 hours. For example, at noon take ibuprofen, then at 3pm take tylenol, then at 6pm take ibuprofen. I am sending oxycodone, a controlled pain medication, to your pharmacy for you to take for breakthrough pain control. Please use this with caution as opioid pain medications have addictive properties. I have also provided you with Narcan as accidental overdoses on oxycodone can occur. Opioid pain medications can often cause constipation. I recommend taking this with an over the counter laxative and/or stool softener to help move your bowels. I am also starting you on a 5 day course of prednisone. Take 60 mg daily x5 days. Please schedule an appointment for follow-up with your primary care provider this week for further evaluation of your symptoms. Return to the Emergency Department if you experience worsening back pain, difficulty walking, fevers, numbness, tingling, incontinence, or any other concerning symptoms. In the case of an emergency call 911. Prescriptions: New oxycodone 5 mg tablet 5 mg PO Q8H PRN (Reason: pain (scale score 7-10)) Qty: 10 0RF Rx Instructions: Partial Fill upon patient request. prednisone 20 mg tablet 60 mg PO DAILY 5 Days Qty: 15 0RF No Action solifenacin [Vesicare] 5 mg tablet 5 mg PO DAILY 30 Days Qty: 30 0RF albuterol sulfate [ProAir HFA] 90 mcg/actuation Hfa Aerosol Inhaler 2 puff INHALATION Q4-6H PRN (Reason: Shortness Of Breath) trazodone 50 mg tablet 50 mg PO BEDTIME cyclobenzaprine 5 mg tablet 5 mg PO BEDTIME PRN (Reason: muscle spasm) Qty: 14 0RF oxycodone 5 mg tablet 5 mg PO Q6H PRN (Reason: severe pain (scale score 7-10)) Qty: 9 0RF Rx Instructions: Partial Fill upon patient request. ferrous sulfate 325 mg (65 mg iron) tablet 325 mg PO DAILY Qty: 90 2RF oxycodone 5 mg tablet 5 mg PO Q6-8H PRN (Reason: pain (scale score 4-6)) 7 Days Qty: 24 0RF Rx Instructions: Partial Fill upon patient request. metoprolol succinate 25 mg tablet extended release 24 hr 12.5 mg PO DAILY omeprazole 20 mg capsule,delayed release(DR/EC) 20 mg PO DAILY primidone 50 mg tablet 50 mg PO BID lorazepam 0.5 mg tablet 0.5 mg PO NEEDED PRN (Reason: Anxiety) trazodone 100 mg tablet 100 mg PO BEDTIME diazepam 10 mg tablet 10 mg PO ONCE PRN (Reason: anxiety) 14 Days Qty: 14 0RF Rx Instructions: crush and place rectally for pelvic floor pain with water based lubricant - use in evening Referrals: Virgil Hager MD [Primary Care Provider, Medical] Interventions: ED Discharge Assessment Last Done: 04/07/25 15:59 Discharge Date/Time: 04/07/25 16:20 Print Language: [place]an
[2025-04-07 12:36] VITALS: BP 118/64; PULSE 58; RESP 16; TEMP 36.7; O2SAT 99
[2025-04-07 13:53] LABS: Appearance Urine Clear; Glucose Urine UA Negative (Negative); PH 5.5 (5.0-9.0); Specific Gravity - Urine 1.010 (1.005-1.025)
[2025-04-07 14:09] VITALS: BP 130/67; PULSE 73; RESP 16; O2SAT 94
[2025-04-07 15:32] VITALS: BP 142/73; PULSE 59; RESP 16; TEMP 36.8; O2SAT 99
[2025-04-07 15:59] VITALS: BP 142/73; PULSE 59; RESP 16; TEMP 36.8; O2SAT 99
== END 2025-04-07 16:20 | disposition home or self-care (01) ==
PROVIDERS: Physician Assistant Medical; Emergency Provider Emergency Medicine Emergency Medical Services; PCP Internal Medicine
DX: M54.16 Radiculopathy, lumbar region (principal); M54.50 Low back pain, unspecified
CPT/HCPCS: 36415; 72100; 80053; 81003; 85025; 96374; 96376; 99284; J1171

== ENCOUNTER → 2025-04-07 11:49 | Outpatient (BNV) | payer OTHER, SELFPAY | PROVIDERS: Emergency Provider Emergency Medicine Emergency Medical Services; PCP Internal Medicine; Visit Provider Radiology Diagnostic Radiology | DX: M51.360 Other intervertebral disc degeneration, lumbar region with discogenic back pain only (principal); Z96.82 Presence of neurostimulator | CPT/HCPCS: 72100 ==

== ENCOUNTER 2025-04-16 12:07 | Emergency (ER) | payer OTHER, SELFPAY ==
--- NOTE | ~2025-04-16 | XR_ITS ---
EXAMINATION: XR THORACIC SPINE CLINICAL INFORMATION: fall COMPARISON: CT scan abdomen and pelvis December 19, 2023 and chest x-ray April 30, 2024 TECHNIQUE: 3 views of the thoracic spine were obtained. FINDINGS: Mild S shaped contour is noted in the spine. There is moderate concavity of the superior endplate of T8 stable since at least April 2024. There is subtle wedging of T11 superior endplate stable since December 2023. There is moderate superior endplate compression fracture of T12 that is stable since at least December 2023. XR/XR thoracic spine 3V IMPRESSION: No acute bony abnormality. Stable compression fractures T8, T11, T12. Electronically signed by: Fabricio Sarah MD 04/16/2025 01:30 PM [facility]
--- NOTE | ~2025-04-16 | XR_ITS ---
EXAMINATION: XR LUMBOSACRAL SPINE CLINICAL INFORMATION: fall COMPARISON: 04/07/2025, 04/20/2024. TECHNIQUE: Three views of the lumbosacral spine. FINDINGS: No significant scoliosis. There is a normal lumbar lordosis. There is no subluxation. There is no fracture, compression deformity, or suspicious bone lesion. There is very mild disc degeneration throughout. Facets are normally aligned. There is very mild facet degeneration most notable L4-S1. The sacrum is intact. The SI joints demonstrate mild to moderate degenerative arthritis. There is a right-sided abandoned sacral lead, and a left-sided sacral stimulator lead in place. There are surgical clips within the pelvis. There are cholecystectomy clips present. There are vascular calcifications in the soft tissues. XR/XR lumbar spine 2-3V IMPRESSION: 1. No acute bony or soft tissue abnormality of the lumbar spine. 2. Mild lumbar spondylosis, unchanged. Electronically signed by: Kvng Casillas MD 04/16/2025 01:29 PM [facility]
--- NOTE | ~2025-04-16 | XR_ITS ---
EXAMINATION: XR KNEE, LEFT CLINICAL INFORMATION: pain, fall COMPARISON: None available. TECHNIQUE: Four views of the left knee. FINDINGS: Bone mineralization is decreased. No fracture or joint effusion. Alignment is anatomic. Medial and lateral compartment joint spaces are maintained. Limited evaluation of the patellofemoral joint space. No abnormal soft tissue calcification. XR/XR knee LT 4V IMPRESSION: No acute findings Electronically signed by: Eddie Davey MD 04/16/2025 02:44 PM EST
--- NOTE | ~2025-04-16 | CT_ITS ---
EXAMINATION: CT LUMBAR SPINE WITHOUT CONTRAST CLINICAL INFORMATION: [Pain after falling COMPARISON: Same x-ray and x-ray from 04/07/2025 April 20, 2024 TECHNIQUE: Axial imaging was performed from lower T11 through the lower sacrum coccygeal region without IV contrast. Coronal and sagittal reformatted images were generated from the original axial data set. ALARA: The examination used one or more of the following radiation dose reduction techniques: Automated exposure control, iterative reconstruction, and/or adjustment of mA and/or kV. FINDINGS: There are surgical clips from cholecystectomy. There are 5 [id number]-uvpszdm lumbar segments. Small marginal osteophytes are present involving both SI joints. There is moderate superior endplate compression fracture of T12 that is stable when compared to an x-ray performed one year ago. Vertebral body height and alignment is preserved otherwise. There is minimal narrowing of disc spaces and broad-based disc bulges and small facet osteophytes at L3-4, L4-5, and L5-S1. Neurostimulator leads are seen passing into the bilateral S3 neural foramen. The right kidney is abandoned. CT/CT lumbar spine wo IV con IMPRESSION: Moderate superior endplate T12 compression fracture is stable since x-ray performed April 2024. Mild degenerative disc disease and facet osteoarthritis L3-4 through L5-S1. Abandoned right S3 neural stimulator lead. Left S3 neural stimulator is connected to a generator in the right gluteal region. Electronically signed by: Fabricio Sarah MD 04/16/2025 03:52 PM [facility]
[2025-04-16 12:18] VITALS: BP 127/62; PULSE 78; RESP 16; TEMP 36.2; O2SAT 99; BMI 22.0
[2025-04-16 12:25] VITALS: BP 114/73; PULSE 81; O2SAT 99
--- NOTE | 2025-04-16 13:24 | ED.FALL ---
HPI - Fall General Chief Complaint: Fall Stated Complaint: Back Pain Time Seen by Provider: 04/16/25 12:44 Source: patient, EMS and old records reviewed Mode of arrival: EMS Limitations: no limitations History of Present Illness ED Provider: HARSHAL GIBBONS Narrative: 60-year-old female with past medical history of chronic back pain has known spinal stimulator, anxiety, depression, chronic pain, GERD, hypertension here with complaint trying to walk around her house when she lost her balance and her left leg gave out she then struck her left knee into a table and fell on left side no head strike or LOC. Her partner also has back issues and could not help her get up. He called 911 and she was helped immediately. She denies any saddle anesthesia, bowel or bladder incontinence, IVDA, or blood thinner use. She has chronic pain and also notes she is not able to get chronic pain prescriptions from her providers. She has no other injuries Related Data Home Medications ?Medication ?Instructions ?Recorded ?Confirmed albuterol sulfate 90 mcg/actuation 2 puff inhalation Q4-6H PRN 04/25/20 02/19/25 aerosol inhaler (ProAir HFA) Shortness Of Breath metoprolol succinate 25 mg 12.5 mg PO DAILY 08/08/21 02/19/25 tablet,extended release 24 hr omeprazole 20 mg capsule,delayed 20 mg PO DAILY 11/03/21 02/19/25 release trazodone 50 mg tablet 50 mg PO BEDTIME 10/15/23 02/19/25 lorazepam 0.5 mg tablet 0.5 mg PO NEEDED PRN Anxiety 04/07/24 02/19/25 trazodone 100 mg tablet 100 mg PO BEDTIME 04/07/24 02/19/25 primidone 50 mg tablet 50 mg PO BID 06/13/24 02/19/25 Previous Rx's ?Medication ?Instructions ?Recorded cyclobenzaprine 5 mg tablet 5 mg PO BEDTIME PRN muscle spasm 07/08/24 #14 tabs ferrous sulfate 325 mg (65 mg 325 mg PO DAILY #90 tabs 09/06/24 iron) tablet solifenacin 5 mg tablet (Vesicare) 5 mg PO DAILY 30 days #30 tabs 02/01/25 diazepam 10 mg tablet 10 mg PO ONCE PRN anxiety 14 days 02/08/25 #14 tabs oxycodone 5 mg tablet 5 mg PO Q6-8H PRN pain (scale 02/19/25 score 4-6) 7 days #24 tabs oxycodone 5 mg tablet 5 mg PO Q6H PRN severe pain (scale 03/26/25 score 7-10) #9 tabs oxycodone 5 mg tablet 5 mg PO Q8H PRN pain (scale score 04/07/25 7-10) #10 tabs prednisone 20 mg tablet 60 mg (3 x 20 mg) PO DAILY 5 days 04/07/25 #15 tabs hydromorphone 2 mg tablet 2 mg PO Q6H PRN pain #8 tabs 04/16/25 (Dilaudid) Allergies Allergy/AdvReac Type Severity Reaction Status Date / Time amoxicillin (From AUGMENTIN) Allergy Severe SEVERE Verified 04/07/25 10:22 DIARRHEA Xthhevc-CHV-LxS Reductase Allergy Intermediate muscle Verified 04/07/25 10:22 Inhibitor ([id number] aches, REDUCTASE INHIBITOR) cramps acetaminophen (ACETAMINOPHEN) AdvReac Severe GI upset. Verified 04/07/25 10:22 Pt confirmed NOT allergic to oxycodone NSAIDS (Non-Steroidal AdvReac Severe Gastrointestinal Verified 04/07/25 10:22 Anti-Inflamma Upset oxycodone (From Percocet) AdvReac Gastrointestinal Verified 03/26/25 14:28 Upset prednisone AdvReac Gastrointestinal Verified 04/16/25 12:22 Upset Review of Systems Review of Systems: Constitutional : No Weight loss, No Fever, No Chills, ENT/Mouth : No Hearing loss, No Ear Pain, No Nasal Congestion, No Sinus Pain, No Hoarseness, No sore throat, No Rhinorrhea, No Swallowing Difficulty Cardiovascular : No Chest Pain, No SOB Respiratory : No Cough, No Dyspnea Gastrointestinal : No Nausea, No Vomiting, No Diarrhea, No abdominal Pain, No Hematochezia, No Melena Genitourinary : No Dysuria, No Urinary Frequency, No Hematuria, No Urinary Incontinence, Musculoskeletal : positive back pain Skin : No Skin Lesions, No rash Neuro : No Weakness, No Numbness, No Paresthesias, no loss of bowel or bladder incontinence, no saddle anesthesia Yes all other systems are reviewed and are negative PMFSH Past Medical History Attestation statement: The following information was validated with the patient. Source: old records reviewed Medical History Sacral nerve stimulator present Colostomy in place On beta morgan at home Anxiety SVT (supraventricular tachycardia) Depression Back pain History of gastrostomy tube placement Hx of ulcerative colitis Hx of cystitis History of anxiety Asthma Elevated cholesterol Surgical History History of bowel diversion surgery History of tubal ligation History of endometrial ablation History of bladder surgery Social History Social History Household Members: Significant Other Household Members Other:: s.o can stay to help when needed Housing: Apartment Are you a primary ambulatory care coordinator to a significant other at home: No Do you presently have visiting nurse or other home services: No Alcohol intake: current Alcohol intake frequency: does not drink Alcohol type: wine Patient Tobacco Use Status: Current someday Tobacco user Tobacco use type: Cigarette Cigarettes Per Day: 4 Years Smoked: 25 Advance Directives: No Advance Directives Information Provided: No Current occupational status: disabled Physical Exam Vital Signs: Vital Signs: Last Vital Signs Temp 97.6 F 04/16/25 14:05 Pulse 72 04/16/25 14:05 Resp 16 04/16/25 14:05 BP 118/67 04/16/25 14:05 Pulse Ox 100 04/16/25 14:05 O2 Del Method Room Air 04/16/25 14:05 BMI result Body Mass Index 22.0 Appearance: Alert. Oriented X3. No acute distress. Eyes: Pupils equal, round and reactive to light. ENT: Pharynx normal. Neck: Normal inspection. Neck supple. CVS: Normal heart rate and rhythm. Pulses normal. Respiratory: No respiratory distress. Breath sounds normal. Abdomen: Soft and nontender. Skin: Skin warm and dry. Normal skin color. Normal skin turgor. Extremities: No lower extremity edema. No calf ttp L knee patella contusion Neuro: Oriented X 3. No motor deficit. No sensory deficit. CN2-12 intact SILT intact, L5 5/5 1+ DTR in both LE Medications Administered Discontinued Medications Generic Name Dose Route Start Last Admin Trade Name Freq PRN Reason Stop Dose Admin Hydromorphone HCl 2 mg 04/16/25 13:48 04/16/25 14:22 Hydromorphone Hcl 2 Mg Tablet PO 04/16/25 13:49 2 mg ONCE ONE Administration Medical Decision Making Medical Decision Making [facility] Narrative: 60-year-old female with past medical history of chronic back pain has known spinal stimulator, anxiety, depression, chronic pain, GERD, hypertension here with complaint here with mechanical fall no preceding symptoms she has no cauda equina symptoms on exam no head trauma, no cervical spine tenderness to palpation, she does have continued low back pain. At this time I am going to obtain advanced imaging with CT scan for occult fracture. If negative will DC home to outpatient PCP follow-up. No other injuries noted other than left knee contusion Differential Diagnosis Differential Diagnoses: The differential diagnosis associated with the presentation includes sprain, fracture, contusion Admission/Observation Consideration of admission/observation: Escalation of care including admission/observation considered No acute injuries noted on imaging she can be discharged home with pain control and primary care follow-up She has no signs of cauda equina syndrome Independent Interpretation I performed an independent interpretation of an: Plain X-Ray (no new trauma) and CT Scan (No new trauma) Radiology Impression Discussion of test interpretation with radiology: I have reviewed the radiologist's reading. Independent Historian Clinical information obtained from an independent historian. History obtained from or confirmed by: EMS External Record Review External record reviewed: Inpatient record, Outpatient record, Prior outpatient labs and Prior outpatient radiology Discharge Plan Discharge Clinical Impression: Contusion of knee, left Qualifiers: Encounter type: initial encounter Qualified Code(s): S80.02XA - Contusion of left knee, initial encounter Chronic bilateral low back pain Qualifiers: Sciatica presence: without sciatica Qualified Code(s): M54.50 - Low back pain, unspecified Patient Disposition: Home, Self-Care Instructions: Chronic Pain (ED), Contusion in Adults (ED) Additional Instructions: No new injury or broken bones on x-rays of lumbar spine, thoracic spine, left knee The CT scan of your lumbar spine does not show any broken bones or trauma Please follow-up with your healthcare providers Return for any worsening symptoms or concerns Prescriptions: New hydromorphone [Dilaudid] 2 mg tablet 2 mg PO Q6H PRN (Reason: pain) Qty: 8 0RF Rx Instructions: Partial Fill upon patient request. No Action solifenacin [Vesicare] 5 mg tablet 5 mg PO DAILY 30 Days Qty: 30 0RF albuterol sulfate [ProAir HFA] 90 mcg/actuation Hfa Aerosol Inhaler 2 puff INHALATION Q4-6H PRN (Reason: Shortness Of Breath) trazodone 50 mg tablet 50 mg PO BEDTIME cyclobenzaprine 5 mg tablet 5 mg PO BEDTIME PRN (Reason: muscle spasm) Qty: 14 0RF oxycodone 5 mg tablet 5 mg PO Q6H PRN (Reason: severe pain (scale score 7-10)) Qty: 9 0RF Rx Instructions: Partial Fill upon patient request. oxycodone 5 mg tablet 5 mg PO Q8H PRN (Reason: pain (scale score 7-10)) Qty: 10 0RF Rx Instructions: Partial Fill upon patient request. prednisone 20 mg tablet 60 mg PO DAILY 5 Days Qty: 15 0RF ferrous sulfate 325 mg (65 mg iron) tablet 325 mg PO DAILY Qty: 90 2RF oxycodone 5 mg tablet 5 mg PO Q6-8H PRN (Reason: pain (scale score 4-6)) 7 Days Qty: 24 0RF Rx Instructions: Partial Fill upon patient request. metoprolol succinate 25 mg tablet extended release 24 hr 12.5 mg PO DAILY omeprazole 20 mg capsule,delayed release(DR/EC) 20 mg PO DAILY primidone 50 mg tablet 50 mg PO BID lorazepam 0.5 mg tablet 0.5 mg PO NEEDED PRN (Reason: Anxiety) trazodone 100 mg tablet 100 mg PO BEDTIME diazepam 10 mg tablet 10 mg PO ONCE PRN (Reason: anxiety) 14 Days Qty: 14 0RF Rx Instructions: crush and place rectally for pelvic floor pain with water based lubricant - use in evening Print Language: Kinyarwanda
[2025-04-16 14:05] VITALS: BP 118/67; PULSE 72; RESP 16; TEMP 36.4; O2SAT 100
--- NOTE | 2025-04-16 15:59 | PC.NURSE ---
Pt ambulated to bathroom w/ stand-by assist; pt tolerated well
[2025-04-16 16:12] VITALS: BP 110/63; PULSE 77; RESP 16; TEMP 36.6; O2SAT 100
[2025-04-16 16:16] VITALS: BP 110/63; PULSE 77; RESP 16; TEMP 36.6; O2SAT 100
== END 2025-04-16 16:42 | disposition home or self-care (01) ==
PROVIDERS: Emergency Provider Emergency Medicine; PCP Internal Medicine
DX: S80.02XA Contusion of left knee, initial encounter (principal); M54.50 Low back pain, unspecified; M25.562 Pain in left knee; I10 Essential (primary) hypertension; K21.9 Gastro-esophageal reflux disease without esophagitis; M54.6 Pain in thoracic spine; W19.XXXA Unspecified fall, initial encounter; Y93.89 Activity, other specified; Y92.89 Other specified places as the place of occurrence of the external cause; Y99.8 Other external cause status; Z79.899 Other long term (current) drug therapy; F17.210 Nicotine dependence, cigarettes, uncomplicated
CPT/HCPCS: 72072; 72100; 72131; 73564; 99283; 99284

== ENCOUNTER → 2025-04-16 12:55 | Outpatient (BNV) | payer OTHER, SELFPAY | PROVIDERS: Emergency Provider Emergency Medicine; PCP Internal Medicine; Visit Provider Radiology Diagnostic Radiology | DX: M54.50 Low back pain, unspecified (principal); M25.562 Pain in left knee; T14.90XA Injury, unspecified, initial encounter; W19.XXXA Unspecified fall, initial encounter | CPT/HCPCS: 72072; 72100; 72131; 73564 ==

== ENCOUNTER 2025-05-16 07:48 | Emergency (ER) | payer OTHER, SELFPAY ==
[2025-05-16 07:55] VITALS: BP 130/63; PULSE 88; RESP 18; TEMP 37.1; O2SAT 100; BMI 20.4
--- NOTE | 2025-05-16 08:03 | ED.BACK ---
HPI - Back Pain/Injury General Chief Complaint: Back Pain/Injury Stated Complaint: SUDDEN ONSET LOW BACK PAIN/NUMBNESS, NO INJURY Time Seen by Provider: 05/16/25 07:55 Source: patient and EMS Mode of arrival: EMS Limitations: no limitations History of Present Illness ED Provider: HPI Narrative: 60-year-old woman with a history of chronic back pain, about to see her PCP in 7 days, presenting requesting pain medications until she is able to see her PCP, she is in the process of being worked up for bilateral lower extremity neuropathy has had some issues obtaining her MRI, no new trauma no fevers or chills, does not take narcotics on regular basis, no loss of bowel bladder function, no dysuria no hematuria no flank pain reported. Patient has spinal stimulator, essentially states she needs pain control until she is able to see her PCP Related Data Home Medications ?Medication ?Instructions ?Recorded ?Confirmed albuterol sulfate 90 mcg/actuation 2 puff inhalation Q4-6H PRN 04/25/20 02/19/25 aerosol inhaler (ProAir HFA) Shortness Of Breath metoprolol succinate 25 mg 12.5 mg PO DAILY 08/08/21 02/19/25 tablet,extended release 24 hr omeprazole 20 mg capsule,delayed 20 mg PO DAILY 11/03/21 02/19/25 release trazodone 50 mg tablet 50 mg PO BEDTIME 10/15/23 02/19/25 lorazepam 0.5 mg tablet 0.5 mg PO NEEDED PRN Anxiety 04/07/24 02/19/25 trazodone 100 mg tablet 100 mg PO BEDTIME 04/07/24 02/19/25 primidone 50 mg tablet 50 mg PO BID 06/13/24 02/19/25 Previous Rx's ?Medication ?Instructions ?Recorded cyclobenzaprine 5 mg tablet 5 mg PO BEDTIME PRN muscle spasm 07/08/24 #14 tabs ferrous sulfate 325 mg (65 mg 325 mg PO DAILY #90 tabs 09/06/24 iron) tablet oxycodone 5 mg tablet 5 mg PO Q6-8H PRN pain (scale 02/19/25 score 4-6) 7 days #24 tabs oxycodone 5 mg tablet 5 mg PO Q6H PRN severe pain (scale 03/26/25 score 7-10) #9 tabs oxycodone 5 mg tablet 5 mg PO Q8H PRN pain (scale score 04/07/25 7-10) #10 tabs prednisone 20 mg tablet 60 mg (3 x 20 mg) PO DAILY 5 days 04/07/25 #15 tabs oxycodone 5 mg tablet 5 mg PO Q6H PRN severe pain (scale 04/16/25 score 7-10) #8 tabs diazepam 10 mg tablet 10 mg PO ONCE PRN anxiety 14 days 04/20/25 #14 tabs solifenacin 5 mg tablet (Vesicare) 5 mg PO DAILY 30 days #30 tabs 04/20/25 methenamin 120 mg-m.blue 10.8 1 cap PO QID PRN spasm 10 days #40 04/23/25 mg-sod phos 40.8 mg-p.salic-hyos caps capsule morphine 15 mg immediate release 15 mg PO BID PRN pain 5 days #10 05/16/25 tablet tabs morphine 15 mg tablet,extended 15 mg PO Q12H #10 tabs 05/16/25 release Allergies Allergy/AdvReac Type Severity Reaction Status Date / Time amoxicillin (From AUGMENTIN) Allergy Severe SEVERE Verified 05/16/25 07:57 DIARRHEA Xadxeya-PKH-XaO Reductase Allergy Intermediate muscle Verified 05/16/25 07:57 Inhibitor (XINNPVU-OKG-SSB aches, REDUCTASE INHIBITOR) cramps acetaminophen (ACETAMINOPHEN) AdvReac Severe GI upset. Verified 05/16/25 07:57 Pt confirmed NOT allergic to oxycodone NSAIDS (Non-Steroidal AdvReac Severe Gastrointestinal Verified 05/16/25 07:57 Anti-Inflamma Upset oxycodone (From Percocet) AdvReac Gastrointestinal Verified 05/16/25 07:57 Upset prednisone AdvReac Gastrointestinal Verified 05/16/25 07:57 Upset Review of Systems Constitutional: Constitutional: Reports as per [facility] Past Medical History Medical History Sacral nerve stimulator present Colostomy in place On beta morgan at home Anxiety SVT (supraventricular tachycardia) Depression Back pain History of gastrostomy tube placement Hx of ulcerative colitis Hx of cystitis History of anxiety Asthma Elevated cholesterol Surgical History History of bowel diversion surgery History of tubal ligation History of endometrial ablation History of bladder surgery Social History Social History Household Members: Significant Other Household Members Other:: s.o can stay to help when needed Housing: Apartment Are you a primary healthcare consulting manager to a significant other at home: No Do you presently have visiting nurse or other home services: No Alcohol intake: current Alcohol intake frequency: does not drink Alcohol type: wine Patient Tobacco Use Status: Current someday Tobacco user Tobacco use type: Cigarette Cigarettes Per Day: 4 Years Smoked: 25 Current occupational status: disabled Physical Exam Exam: Exam: ?General: ??looks age appropriate, anxious affect ?PERRLA, EOMI, MMM, Neck: Supple, no LAD ?CV: RRR, no obvious murmurs appreciated ?Resp: ?No wheezing rales rhonchi no stridor moving air well Abd: Functional colostomy without hernias bowel sounds present MSK: Deep tendon reflexes +1 bilateral knees, no sensory deficits generally from S1-L2 bilateral lower extremities able flex her hips extend her knees plantar dorsiflexion distally intact Skin: Warm, dry, intact, ?Neuro: ?Alert and oriented x3, moving upper and lower extremities symmetrically, no obvious facial asymmetry noted, cranial nerves 2-12 intact Vital Signs: Vital Signs: Last Vital Signs Temp 98.7 F 05/16/25 07:55 Pulse 88 05/16/25 07:55 Resp 18 05/16/25 07:55 BP 130/63 05/16/25 07:55 Pulse Ox 100 05/16/25 07:55 O2 Del Method Room Air 05/16/25 07:55 BMI result Body Mass Index 20.4 Medical Decision Making Medical Decision Making [facility] Narrative: 8:18 AM 05/16/2025 (Dr. Drew Bower): No history of substance use disorder, chronic pain that is not being addressed on outpatient basis unfortunately comes to the ER for pain medications, no new trauma, in the beginning of the month of April had CT imaging without new findings, nothing to suspect diskitis osteomyelitis or spinal epidural abscess or cauda equina, seeing her PCP in trying to get MRI, I do not mind prescribing medications for her but I will communicate to the patient that in the future I will ask that her PCP is managing her pain Differential Diagnosis Differential Diagnoses: The differential diagnosis associated with the presentation includes (Diskitis, osteomyelitis, spinal epidural abscess, cauda equina, musculoskeletal pain) Admission/Observation Consideration of admission/observation: Escalation of care including admission/observation considered Radiology Impression Discussion of test interpretation with radiology: I have reviewed the radiologist's reading. (I reviewed prior x-ray and CAT scan imaging she has had in April) Radiologist Impression: Moderate superior endplate T12 compression fracture is stable since x-ray performed April 2024. Mild degenerative disc disease and facet osteoarthritis L3-4 through L5-S1. Abandoned right S3 neural stimulator lead. Left S3 neural stimulator is connected to a generator in the right gluteal region Independent Historian Clinical information obtained from an independent historian. History obtained from or confirmed by: EMS Prescription Management I considered prescription management with: Pain Medication Discharge Plan Discharge Clinical Impression: Lumbar radiculopathy Additional Instructions: You did have a CAT scan on 04/16/2025, I think need to discuss with the PCP additional pain management and additional pain medications should you require, I will prescribe medications for you at this time but of note in the future I will defer any opiate prescriptions under my care to your PCP this is to prevent ED visits for chronic pain management this is something that really needs to be addressed on an outpatient basis, your blood work urinalysis reassuring There is morphine sulfate 15 mg extended release you take it every 12 hours and then you can take 15 mg of fast acting medication additional as needed every 12 hours as well, I hope that by taking extended-release medications instead of taking morphine sulfate [place] that are short-acting you can take Tylenol with improvement of the symptoms Prescriptions: New morphine 15 mg tablet extended release 15 mg PO Q12H Qty: 10 0RF Rx Instructions: Partial Fill upon patient request. morphine 15 mg tablet 15 mg PO BID PRN (Reason: pain) 5 Days Qty: 10 0RF Rx Instructions: Partial Fill upon patient request. No Action solifenacin [Vesicare] 5 mg tablet 5 mg PO DAILY 30 Days Qty: 30 0RF diazepam 10 mg tablet 10 mg PO ONCE PRN (Reason: anxiety) 14 Days Qty: 14 0RF Rx Instructions: crush and place rectally for pelvic floor pain with water based lubricant - use in evening [id number]-xnivn-czo 120-10.8-40.8 mg capsule 1 cap PO QID PRN (Reason: spasm) 10 Days Qty: 40 0RF albuterol sulfate [ProAir HFA] 90 mcg/actuation Hfa Aerosol Inhaler 2 puff INHALATION Q4-6H PRN (Reason: Shortness Of Breath) trazodone 50 mg tablet 50 mg PO BEDTIME cyclobenzaprine 5 mg tablet 5 mg PO BEDTIME PRN (Reason: muscle spasm) Qty: 14 0RF oxycodone 5 mg tablet 5 mg PO Q6H PRN (Reason: severe pain (scale score 7-10)) Qty: 9 0RF Rx Instructions: Partial Fill upon patient request. oxycodone 5 mg tablet 5 mg PO Q8H PRN (Reason: pain (scale score 7-10)) Qty: 10 0RF Rx Instructions: Partial Fill upon patient request. prednisone 20 mg tablet 60 mg PO DAILY 5 Days Qty: 15 0RF ferrous sulfate 325 mg (65 mg iron) tablet 325 mg PO DAILY Qty: 90 2RF oxycodone 5 mg tablet 5 mg PO Q6-8H PRN (Reason: pain (scale score 4-6)) 7 Days Qty: 24 0RF Rx Instructions: Partial Fill upon patient request. oxycodone 5 mg tablet 5 mg PO Q6H PRN (Reason: severe pain (scale score 7-10)) Qty: 8 0RF Rx Instructions: Partial Fill upon patient request. metoprolol succinate 25 mg tablet extended release 24 hr 12.5 mg PO DAILY omeprazole 20 mg capsule,delayed release(DR/EC) 20 mg PO DAILY primidone 50 mg tablet 50 mg PO BID lorazepam 0.5 mg tablet 0.5 mg PO NEEDED PRN (Reason: Anxiety) trazodone 100 mg tablet 100 mg PO BEDTIME Print Language: Malagasy
[2025-05-16] MEDS: Morphine Sulfate ER 15 MG TABLET.ER PO (08:41)
[2025-05-16] MEDS: Morphine Sulfate Immed Release 15 MG TABLET PO (08:41)
[2025-05-16 09:43] LABS: MANUAL DIFF FLAG NO
[2025-05-16 09:47] LABS: Hematocrit 46.4 % (37.0-47.0); Hemoglobin 15.5 g/dl (12.0-16.0); Imm Gran Abs Auto 0.02 X10*3/uL (0.00-0.03); Imm Gran Pct Auto 0.3 % (0.0-0.4); Lymphocytes Absolute Auto 2.5 X10*3/uL (1.2-4.9); Mean Corpuscular HGB Conc 33.4 g/dl (31.0-35.0); Mean Corpuscular Hemoglobin 29.9 pg (27.0-33.0); Mean Corpuscular Volume 89.4 fL (80.0-98.0); NRBC Abs Auto 0.000 X10*3/uL (0.0-0.012); NRBC Pct Auto 0.0 /100WBC (0.0-0.2); Platelet Count 183 X10*3/uL (160-400); Red Blood Count 5.19 X10*6/uL (4.20-5.50); White Blood Count 6.6 X10*3/uL (4.8-10.8)
[2025-05-16 09:59] LABS: Alanine Aminotransferase 15 U/L (0-31); Albumin Level 4.6 g/dL (3.5-5.0); Alkaline Phosphatase 130 U/L (39-117); Anion Gap 13 (12-20); Aspartate Amino Transferase 23 U/L (5-31); Blood Urea Nitrogen 22 mg/dL (9-16); Calcium 10.6 mg/dL (8.4-10.2); Carbon Dioxide 28 mmol/L (22-29); Chloride 102 mmol/L (96-108); Creatinine Clr Calc Pharmacy 67.1; Estimated Glomerular Filt Rate > 60; Potassium 4.6 mmol/L (3.3-5.1); Sodium 138 mmol/L (135-145); Total Protein 7.8 g/dL (6.5-8.0)
[2025-05-16 10:37] VITALS: BP 130/63; PULSE 88; RESP 18; TEMP 37.1; O2SAT 100
== END 2025-05-16 11:00 | disposition home or self-care (01) ==
PROVIDERS: Emergency Provider Emergency Medicine; PCP Internal Medicine
DX: M54.16 Radiculopathy, lumbar region (principal); G62.9 Polyneuropathy, unspecified; G89.29 Other chronic pain; J45.909 Unspecified asthma, uncomplicated; Z72.0 Tobacco use; Z93.1 Gastrostomy status; Z87.19 Personal history of other diseases of the digestive system; Z79.899 Other long term (current) drug therapy
CPT/HCPCS: 36415; 80053; 85025; 99283

== ENCOUNTER 2025-06-10 11:44 | Emergency (ER) | payer OTHER, SELFPAY ==
[2025-06-10 11:58] VITALS: BP 144/92; PULSE 83; O2SAT 100
[2025-06-10 12:02] VITALS: BP 116/77; PULSE 77; RESP 16; O2SAT 97; BMI 22.1
--- NOTE | 2025-06-10 12:53 | ED.GENADULT ---
HPI - General Adult General Chief complaint: Back Pain/Injury Stated complaint: ABD PAIN PER EMS Time Seen by Provider: 06/10/25 12:36 Source: patient Mode of arrival: ambulatory Limitations: no limitations History of Present Illness ED Provider: Alvino Skaggs HPI narrative: 60 yold female with pmh of chronic back pain bladder instead tissue cystitis, colostomy bag, and has sacral nerve stimulator presents to the ED for chronic left-sided back pain radiating down left leg without any trauma. Patient also states chronic lower bladder pain. patient denies any nausea or vomiting. Patient denies any hematuria or dysuria. Patient states colostomy bag has good flow and has no abdominal pain. Patient wants pain medication for back. Patient denies any IV drug use. patient denies any history of urinary / bowel incontinence. Patient is not able to have MRI of lumbar spine due to type of stimulator she has. Related Data Home Medications ?Medication ?Instructions ?Recorded ?Confirmed albuterol sulfate 90 mcg/actuation 2 puff inhalation Q4-6H PRN 04/25/20 02/19/25 aerosol inhaler (ProAir HFA) Shortness Of Breath metoprolol succinate 25 mg 12.5 mg PO DAILY 08/08/21 02/19/25 tablet,extended release 24 hr omeprazole 20 mg capsule,delayed 20 mg PO DAILY 11/03/21 02/19/25 release trazodone 50 mg tablet 50 mg PO BEDTIME 10/15/23 02/19/25 lorazepam 0.5 mg tablet 0.5 mg PO NEEDED PRN Anxiety 04/07/24 02/19/25 trazodone 100 mg tablet 100 mg PO BEDTIME 04/07/24 02/19/25 primidone 50 mg tablet 50 mg PO BID 06/13/24 02/19/25 Previous Rx's ?Medication ?Instructions ?Recorded cyclobenzaprine 5 mg tablet 5 mg PO BEDTIME PRN muscle spasm 07/08/24 #14 tabs ferrous sulfate 325 mg (65 mg 325 mg PO DAILY #90 tabs 09/06/24 iron) tablet oxycodone 5 mg tablet 5 mg PO Q6-8H PRN pain (scale 02/19/25 score 4-6) 7 days #24 tabs oxycodone 5 mg tablet 5 mg PO Q6H PRN severe pain (scale 03/26/25 score 7-10) #9 tabs oxycodone 5 mg tablet 5 mg PO Q8H PRN pain (scale score 04/07/25 7-10) #10 tabs prednisone 20 mg tablet 60 mg (3 x 20 mg) PO DAILY 5 days 04/07/25 #15 tabs oxycodone 5 mg tablet 5 mg PO Q6H PRN severe pain (scale 04/16/25 score 7-10) #8 tabs diazepam 10 mg tablet 10 mg PO ONCE PRN anxiety 14 days 04/20/25 #14 tabs solifenacin 5 mg tablet (Vesicare) 5 mg PO DAILY 30 days #30 tabs 04/20/25 methenamin 120 mg-m.blue 10.8 1 cap PO QID PRN spasm 10 days #40 04/23/25 mg-sod phos 40.8 mg-p.salic-hyos caps capsule morphine 15 mg immediate release 15 mg PO BID PRN pain 5 days #10 05/16/25 tablet tabs morphine 15 mg tablet,extended 15 mg PO Q12H #10 tabs 05/16/25 release oxycodone 5 mg tablet 5 mg PO Q8H PRN pain 7 days #21 06/10/25 tabs Allergies Allergy/AdvReac Type Severity Reaction Status Date / Time amoxicillin (From AUGMENTIN) Allergy Severe SEVERE Verified 06/10/25 12:06 DIARRHEA Gbbrsnv-VPH-StW Reductase Allergy Intermediate muscle Verified 06/10/25 12:06 Inhibitor ([id number] aches, REDUCTASE INHIBITOR) cramps acetaminophen (ACETAMINOPHEN) AdvReac Severe GI upset. Verified 06/10/25 12:06 Pt confirmed NOT allergic to oxycodone NSAIDS (Non-Steroidal AdvReac Severe Gastrointestinal Verified 06/10/25 12:06 Anti-Inflamma Upset oxycodone (From Percocet) AdvReac Gastrointestinal Verified 06/10/25 12:06 Upset prednisone AdvReac Gastrointestinal Verified 06/10/25 12:06 Upset Review of Systems Review of Systems: Low back pain. chronic bladder pain Yes all other systems are reviewed and are negative [facility] Past Medical History Medical History Sacral nerve stimulator present Colostomy in place On beta morgan at home Anxiety SVT (supraventricular tachycardia) Depression Back pain History of gastrostomy tube placement Hx of ulcerative colitis Hx of cystitis History of anxiety Asthma Elevated cholesterol Surgical History History of bowel diversion surgery History of tubal ligation History of endometrial ablation History of bladder surgery Social History Social History Household Members: Significant Other Household Members Other:: s.o can stay to help when needed Housing: Apartment Are you a primary social worker palliative care to a significant other at home: No Do you presently have visiting nurse or other home services: No 75 years or older and lives alone: No Alcohol intake: current Alcohol intake frequency: does not drink Alcohol type: wine Patient Tobacco Use Status: Current someday Tobacco user Tobacco use type: Cigarette Cigarettes Per Day: 4 Years Smoked: 25 Current occupational status: disabled Physical Exam ED Vital Signs: Vital Signs - 24 hr 06/10/25 12:02 Pulse Rate 77 Respiratory Rate 16 Blood Pressure 116/77 Pulse Oximetry 97 Oxygen Delivery Method Room Air BMI result Body Mass Index 22.1 Const General: cooperative, healthy appearing, comfortable, no acute distress, well developed, alert, awake and Physically active Orientation/consciousness: patient oriented x3 HENMT Head: Yes normal to inspection, Yes No palpable skull fracture present, Yes normocephalic and Yes atraumatic Eyes General: appearance normal, both eyes and all related structures Neck Neck: Yes normal visual inspection, Yes full ROM, Yes no lymphadenopathy, Yes no meningeal signs, Yes trachea midline, Yes supple, No anterior neck swelling and No tender Chest Chest palpation & inspection: normal inspection of the chest and normal palpation of entire chest wall Resp Effort & Inspection: normal respiratory effort and able to speak in complete sentences Auscultation: clear to auscultation bilaterally Cardio Jugular venous distension: no JVD Heart sounds: S1 normal heart sound present and S2 normal heart sound present GI Other: colostomy bag flu and appropriately Inspection: Yes normal to inspection Palpation (GI): Soft to palpation, Firmness to palpation present (GI), nontender, no guarding and not rigid General: Yes no CVA tenderness Back/Spine/Pelvis Back: no CVA tenderness and No back tenderness Skin General skin exam: no rashes or lesions noted, elasticity normal and turgor normal Neuro General: patient oriented x3, gait normal, tone normal, moves all extremities, Normal light touch and pain sensation, no meningeal signs, no focal motor deficits, CN's II-XI intact bilaterally and normal sensation to monofilament Extrem General: Yes normal to inspection, Yes full ROM and Yes capillary refill normal Psych Appearance: grossly normal, well kempt and not disheveled Medications Administered Discontinued Medications Generic Name Dose Route Start Last Admin Trade Name Fallon PRN Reason Stop Dose Admin Morphine Sulfate 4 mg 06/10/25 12:49 06/10/25 13:02 Morphine Sulfate 4 Mg/Ml Cartridge IVPUSH 06/10/25 12:50 4 mg ONCE ONE Administration Protocol Morphine Sulfate 4 mg 06/10/25 14:39 06/10/25 14:50 Morphine Sulfate 4 Mg/Ml Cartridge IVPUSH 06/10/25 14:40 4 mg ONCE ONE Administration Protocol Medical Decision Making Medical Decision Making [facility] Narrative: 60 year female history of chronic back pain presents to ED for back pain exacerbation without any trauma. Patient has had recent CT scan going to April waiting for results. Presently no signs of cauda equinus syndrome, epidural abscess, or osteomyelitis. Pain medication basic labs UA ordered. Abdomen benign. Patient has good strength of lower extremities reflexes intact. 4:19pm; patient pain improved with morphine. Not suspecting epidural abscess, cauda equinua syndrome, osteomyelitis, pylenophritits, kdiney stones, appendicitis, or any other concerning symptoms. . Abdominal benign soft nontender. no need for CAT scan imaging. Patient has follow up with Urology for hyperextension for chronic interstitial cystitis. Patient requests oxycodone for discharge. Ct scan from 04/16 shows lumbar radiculopahty. No need for MRI. patient states PCP will be out of office until after new year. requesting 7 days of pain meds. Differential Diagnosis Differential Diagnoses: The differential diagnosis associated with the presentation includes Admission/Observation Consideration of admission/observation: Escalation of care including admission/observation considered Lab Data [facility] Lab Attestation statement: I reviewed the patient's lab results. 06/10/25 13:55 06/10/25 13:55 Labs: Lab Results 06/10/25 Range/Units 13:55 WBC 6.2 (4.8-10.8) X10*3/uL RBC 4.97 (4.20-5.50) X10*6/uL Hgb 14.8 (12.0-16.0) g/dl Hct 44.2 (37.0-47.0) % MCV 88.9 (80.0-98.0) fL MCH 29.8 (27.0-33.0) pg MCHC 33.5 (31.0-35.0) g/dl RDW 13.3 (11.0-16.0) % Plt Count 178 (160-400) X10*3/uL MPV 10.3 (9.4-12.3) fL Immature Gran % (Auto) 0.2 (0.0-0.4) % Neut % (Auto) 56.3 (45-73) % Lymph % (Auto) 35.0 (20-40) % [place] % (Auto) 6.9 (2-11) % Eos % (Auto) 1.1 (0-4) % Baso % (Auto) 0.5 (0-2) % Lymph # (Auto) 2.2 (1.2-4.9) X10*3/uL [place] # (Auto) 0.4 (0.1-1.2) X10*3/uL Eos # (Auto) 0.1 (0.0-0.4) X10*3/uL Baso # (Auto) 0.0 (0.0-0.2) X10*3/uL Abs Immat Gran (auto) 0.01 (0.00-0.03) X10*3/uL Absolute Neuts (auto) 3.5 (2.0-8.3) x10*3/uL Absolute Nucleated RBC 0.000 (0.0-0.012) X10*3/uL Nucleated RBC % (auto) 0.0 (0.0-0.2) /100WBC Smear Tech's Comments VERIFIED Sodium 139 (135-145) mmol/L Potassium 4.7 (3.3-5.1) mmol/L Chloride 104 (96-108) mmol/L Carbon Dioxide 25 (22-29) mmol/L Anion Gap 15 (12-20) BUN 19 H (9-16) mg/dL Creatinine 0.85 (0.5-1.4) mg/dL Estim Creat Clear Calc 63.3 Estimated GFR > 60 Random Glucose 76 (60-115) mg/dL Calcium 9.9 D (8.4-10.2) mg/dL Total Bilirubin 0.3 (0.0-1.0) mg/dL AST 30 (5-31) U/L ALT 19 (0-31) U/L Alkaline Phosphatase 139 H (39-117) U/L Total Protein 7.8 (6.5-8.0) g/dL Albumin 4.4 (3.5-5.0) g/dL Urine Color Yellow Urine Appearance Clear Urine pH 6.0 (5.0-9.0) Ur Specific [place] <= 1.005 (1.005-1.025) Urine Protein Negative (Neg-Trace) mg/dL Urine Glucose (UA) Negative (Negative) mg/dL Urine Ketones Negative (Negative) mg/dL Urine Blood Negative (Negative) Urine Nitrite Negative (Negative) Ur Leukocyte Esterase Negative (Negative) Independent Historian Clinical information obtained from an independent historian. History obtained from or confirmed by: Other (patient) Prescription Management I considered prescription management with: Pain Medication Discharge Plan Discharge Clinical Impression: Interstitial cystitis, Lumbar radiculopathy Patient Disposition: Home, Self-Care Instructions: Lumbar Radiculopathy (ED), Interstitial Cystitis (ED) Additional Instructions: recommend follow-up with primary care provider and neurologist. Return to the ED immediately for any urinary/bowel incontinence, back pain, abdominal pain, flank pain, fever, chills, nausea, vomiting, or any other concerning symptoms. [place] [id number] CT Scan Report Signed Patient: Randi Lowery MR#: [id number] : 1965 Acct:[id number] Age/Sex: 60 / F ADM Date: 04/16/25 Loc: HO.ED Attending Dr: Ordering Physician: Samara Miguel DO Date of Service: 04/16/25 Procedure(s): CT lumbar spine wo IV con Accession Number(s): [id number] cc: Samara Miguel DO; VIRGIL HAGER MD~ Report Number: [id number]: Total DLP = 396.00 mGy-cm Reason for Exam: fall low back pain EXAMINATION: CT LUMBAR SPINE WITHOUT CONTRAST CLINICAL INFORMATION: [Pain after falling COMPARISON: Same x-ray and x-ray from 04/07/2025 April 20, 2024 TECHNIQUE: Axial imaging was performed from lower T11 through the lower sacrum coccygeal region without IV contrast. Coronal and sagittal reformatted images were generated from the original axial data set. ALARA: The examination used one or more of the following radiation dose reduction techniques: Automated exposure control, iterative reconstruction, and/or adjustment of mA and/or kV. FINDINGS: There are surgical clips from cholecystectomy. There are 5 wch-zsz-yomsrac lumbar segments. Small marginal osteophytes are present involving both SI joints. There is moderate superior endplate compression fracture of T12 that is stable when compared to an x-ray performed one year ago. Vertebral body height and alignment is preserved otherwise. There is minimal narrowing of disc spaces and broad-based disc bulges and small facet osteophytes at L3-4, L4-5, and L5-S1. Neurostimulator leads are seen passing into the bilateral S3 neural foramen. The right kidney is abandoned. CT/CT lumbar spine wo IV con IMPRESSION: Moderate superior endplate T12 compression fracture is stable since x-ray performed April 2024. Mild degenerative disc disease and facet osteoarthritis L3-4 through L5-S1. Abandoned right S3 neural stimulator lead. Left S3 neural stimulator is connected to a generator in the right gluteal region. Electronically signed by: Fabricio Sarah MD 04/16/2025 03:52 PM [facility] Dictated By: Fabricio Sarah MD Signed By: <Electronically signed by Fabricio Sarah MD in OV> 04/16/25 1552 DD/ 1514 TD/TT: 04/16/25 1527 Image Assembler: Prescriptions: New oxycodone 5 mg tablet 5 mg PO Q8H PRN (Reason: pain) 7 Days Qty: 21 0RF Rx Instructions: Partial Fill upon patient request. No Action solifenacin [Vesicare] 5 mg tablet 5 mg PO DAILY 30 Days Qty: 30 0RF diazepam 10 mg tablet 10 mg PO ONCE PRN (Reason: anxiety) 14 Days Qty: 14 0RF Rx Instructions: crush and place rectally for pelvic floor pain with water based lubricant - use in evening methen-mHaimblue-s.grbk-rmfup-awr 120-10.8-40.8 mg capsule 1 cap PO QID PRN (Reason: spasm) 10 Days Qty: 40 0RF albuterol sulfate [ProAir HFA] 90 mcg/actuation Hfa Aerosol Inhaler 2 puff INHALATION Q4-6H PRN (Reason: Shortness Of Breath) trazodone 50 mg tablet 50 mg PO BEDTIME cyclobenzaprine 5 mg tablet 5 mg PO BEDTIME PRN (Reason: muscle spasm) Qty: 14 0RF oxycodone 5 mg tablet 5 mg PO Q6H PRN (Reason: severe pain (scale score 7-10)) Qty: 9 0RF Rx Instructions: Partial Fill upon patient request. oxycodone 5 mg tablet 5 mg PO Q8H PRN (Reason: pain (scale score 7-10)) Qty: 10 0RF Rx Instructions: Partial Fill upon patient request. prednisone 20 mg tablet 60 mg PO DAILY 5 Days Qty: 15 0RF ferrous sulfate 325 mg (65 mg iron) tablet 325 mg PO DAILY Qty: 90 2RF oxycodone 5 mg tablet 5 mg PO Q6-8H PRN (Reason: pain (scale score 4-6)) 7 Days Qty: 24 0RF Rx Instructions: Partial Fill upon patient request. oxycodone 5 mg tablet 5 mg PO Q6H PRN (Reason: severe pain (scale score 7-10)) Qty: 8 0RF Rx Instructions: Partial Fill upon patient request. morphine 15 mg tablet extended release 15 mg PO Q12H Qty: 10 0RF Rx Instructions: Partial Fill upon patient request. morphine 15 mg tablet 15 mg PO BID PRN (Reason: pain) 5 Days Qty: 10 0RF Rx Instructions: Partial Fill upon patient request. metoprolol succinate 25 mg tablet extended release 24 hr 12.5 mg PO DAILY omeprazole 20 mg capsule,delayed release(DR/EC) 20 mg PO DAILY primidone 50 mg tablet 50 mg PO BID lorazepam 0.5 mg tablet 0.5 mg PO NEEDED PRN (Reason: Anxiety) trazodone 100 mg tablet 100 mg PO BEDTIME Referrals: [facility] [Provider Group, Urology] - 2 days Referral Note: Insteritital cyststis Clinical Impression: Interstitial cystitis Virgil Hager MD [Primary Care Provider, Medical] - 2 days Referral Note: Lumbar radiculopathy. Extra tissue cystitis Clinical Impression: Interstitial cystitis; Lumbar radiculopathy Jordan Thomas MD, PhD [Physician, Neuro Spine] - 2 days Referral Note: lumbar radiculopathy Clinical Impression: Lumbar radiculopathy Stand Alone Forms: Work/School Release Interventions: ED Discharge Assessment Last Done: 06/10/25 16:40 Discharge Date/Time: 06/10/25 16:41 Print Language: Jamaican
--- OUTSIDE RECORDS SUMMARY | 2025-06-10 13:20 | XMS_ITS | Clinical Summary ---
Author Organization [facility] Address [address] [place] [id number] Phone Care Team Providers Care Ibm Websphere Commerce Developer Name Role Phone Pcp, Unknown Primary Care [...] Active ferrous sulfate 325 mg (65 mg [place] iron) tablet Take 325 mg by mouth [...] topic Medical Devices Not on file Insurance [facility] [employer] MEDICARE REPLACEMENT [place] [id number] [facility] MEDICARE REPLACEMENT [facility] MEDICARE REPLACEMENT [facility] MEDICARE REPLACEMENT [facility] MEDICARE REPLACEMENT Care Teams Ibm Websphere Commerce Developer Relationship Specialty Start Date End Date Pcp, Unknown PCP - General 02/23/23 Additional Source Comments The information contained in this document represents components of the legal health record. It is not the complete legal health record.[facility]
--- OUTSIDE RECORDS SUMMARY | 2025-06-10 13:21 | XMS_ITS | Data Portability ---
Author Organization [employer] [facility] Address [address] [place] [address] Care Team Providers Care Incinerator Operator Name Role Phone ELVI LAWANDA ADULT MEDICINE Referring Provider [facility] OTHER Assessment Encounter Date Assessment Date Assessment LastModified by Organization Details LastModified Time 07/30/2023 07/30/2023 I provided real -time medical direction via phone for this encounter, and was available for additional phone based assistance as needed. I have reviewed and agree with the Assessment and Plan as documented by the Meeting Specialist. Patient given the opportunity to ask questions. As per above, service called for bladder pain and found this 58 riki with chronic interstitial cystitis c/b suprapubic pain. C/o 4d suprapubic sharp pain that is throbbing, knife-like and c/w prior episodes. She is soon to have hydroextension procedure. Last ketorlac > 1 wk prior. Regular PO food and fluid intake. Per warehouse picker on the scene, VSS and she is [...] assessment and plan as documented by the warehouse picker and would add/emphasize: Patient seen for acute [...] ketorolac 30 mg/mL injection solution 2023 024 [email or web address] [id number], [address] [place], [address], 4 19:46:11 ondansetr on HCl (PF) 4 mg/2 mL injection solution 2023 024 [id number], [address] [place], [address], 4 18:50:03 ketorolac 30 mg/mL injection solution 2023 024 [id number], [address] [place], [address], 4 18:50:03 Zofran 4 mg tablet 2023 024 SANDRA [facility], [address] [place], [address], 4 21:22:51 ketorolac 30 mg/mL injection solution 2023 024 [email or web address] [facility], [address] [facility] [place], [address], 4 21:23:56 ketorolac 30 mg/mL injection solution 2023 Adilene mayra [facility], [address] [facility], [facility], [place], [address], 4 22:56:59 Patient TargetsNo targets recorded. Patient [...] n nausea Not available Not available 08/12/2022 28739 3 RxNorm Lula Camacho MD [address] [place] [address],[address], [place], [address], [employer] 3 16:51:49 1995 Augmentin medicatio n Not available Not available Not available 08/12/2022 54011 2 RxNorm got mouth sores Lula Camacho MD [address] [place] [address],[address], [place], [address], [employer] 3 16:52:05 1996 acetamino phen medicatio n Not available Not available Not available 08/12/2022 161 RxNorm Not Available [employer] - production 4 03:45:01 1997 simvastat in medicatio n Not available Not available Not available 08/12/2022 53091 RxNorm Lula Camacho MD [address] [place] [address],[address], [place], [address], [employer] 3 16:52:28 Medications Name Sig Start Date [...] Recorded Body temperature Body weight Oxygen saturation Respiratory rate Heart rate Systolic And Diastolic Provider Name and Address Organization Details Last Updated DateTime 4 98.4 [degF] 92525.5 12 g 98 % 18 /min 90 /min 104/64 mm[Hg] Not Available [employer] - production 4 21:02:10 Date Recorded Respiratory rate Body weight Oxygen saturation Body temperature Body height Heart rate Systolic And Diastolic Systolic And Diastolic Provider Name and Address Organization Details Last Updated DateTime 4 14 /min 42410.9 6 g 76 % 98.5 [degF] 165.1 cm 74 /min 98/64 mm[Hg] 95/56 mm[Hg] Not Available [employer] - production 4 20:24:53 Date Recorded Oxygen saturation Respiratory rate Heart rate Body temperature Systolic And Diastolic Provider Name and Address Organization Details Last Updated DateTime 4 97 % 16 /min 80 /min 98.1 [degF] 110/64 mm[Hg] Not Available [employer] - [employer] 4 19:12:03 Date Recorded Body temperature Respiratory rate Oxygen saturation Heart rate Systolic And Diastolic Provider Name and Address Organization Details Last Updated DateTime 4 98.4 [degF] 16 /min 98 % 86 /min 100/68 mm[Hg] Not Available [employer] 4 16:25:08 Date Recorded Respiratory rate Heart rate Oxygen saturation Body temperature Systolic And Diastolic Provider Name and Address Organization Details Last Updated DateTime 4 16 /min 88 /min 96 % 96 [degF] 97/63 mm[Hg] Not Available [employer] 4 17:24:48 Social History None recorded. Functional [...] [id number] Tha Pierson MD [facility] - [facility] [address] [place] [phone] 03/24/2022 17:56:02 04/01/2022 18:48:22 Abdominal pain 04905355 R10.9 [id number] Amaury Kent MD Main - [facility] [address] [place] [phone] 0 03/26/2022 17:40:48 03/30/2022 12:00:01 Abdominal pain 33184066 R10.9 No red flag signs or kidney problems. Will give Toradol 15mg IM x1 [id number] Jordan Chapman MD Main - [facility] [address] [place] [phone] 04/02/2022 17:07:08 04/03/2022 15:18:36 Urinary bladder pain 89732494 R39.82 Patient with exacerbati on of chronic abdominal pain which is attributed to interstiti al cystitis. She is planned for a surgical procedure for this soon. She got relief from toradol at a recent inst[facility] visit for same symptoms. No history of GI bleeding or chronic kidney disease.Rx toradol IM 15mg x1 [id number] Nelly Pérez MD Main - [facility] [address] [place] [phone] 0 04/08/2022 14:02:49 04/14/2022 16:18:59 Chronic interstitial cystitis 458116019 N30.10 57 year old female, being evaluated for chronic bladder pain. Per data gathered by warehouse picker, patient with chronic bladder pain without dysuria, scheduled for a surgical procedure next week. Her symptoms are at baseline, and she is tolerating PO. Her exam is notable for normal vital signs. Cannot take PO NSAIDS, however recalls IM toradol helpful in the past - dose given again today. FU PCP as needed. 5214 Nelly Pérez MD Main - [facility] [address] [place] [phone] 04/22/2022 17:19:46 04/23/2022 11:41:13 Pain in right foot [id number] 27030 M79.671 57 year old female being evaluated [...] 5464 Kylee Hill MD Main - [facility] [address] [place] [phone] 05/03/2022 16:25:00 05/05/2022 09:08:24 Pain in left foot [id number] 61034 M79.672 57 yo F w/ known metatarsal [...] 8142 Lula Camacho MD Main - [facility] [address] [place] [phone] 08/12/2022 15:46:28 08/14/2022 09:39:18 Candidiasis of skin 86887231 B37.2 likely cause of rash Increased frequency of urination 530963704 R35.0 PAT NOT clinically dehydrated -not hyperglyce opal -states has hx non infectious cystitis- has appt w/ urology 09/07- requesting ketorolac for pain- has no hx CKD/ has tolerated 30 mg IM before( previous [facility] visits)- get GI upset w/ nsaids not true allergy- UA dip neg- no signs of infection/ no culture sent- advised to call pcp tomorrow to d/w them pain management and to call uro to see if they can move up appt. Advised if gets fever/ severe abd or back pain/vomit ing to go to the ER 8250 Derik Bingham MD Main - [facility] [address] [place] [phone] 08/17/2022 11:11:00 08/19/2022 09:27:13 Chronic interstitial cystitis 692689189 N30.10 Localized eruption of skin 175815107 R21 7422 Kylee Hill MD Main - [facility] [address] [place] [phone] 0 08/28/2022 22:03:08 08/31/2022 11:13:17 Chronic interstitial cystitis 121292766 N30.10 long standing diagnosis c/b chronic pain. Recieves toradol occasional ly with good effect. No fevers/chi lls/hematu sofi. Will administer 30mg toradol, but advised pt to discuss timing of additional NSAIDs with surgical team as she is planned for surgery in 10d. will also prescribe 4d zofran for intermitte nt chornic nausea associated to chronic cystitis. Qtc<500. Of note, prescripti on called into [facility] over the phone 07/16 EMR malfunctio n 9933 Angie Amador MD Main - [facility] [address] [place] [phone] 10/11/2022 16:10:03 10/12/2022 10:16:13 Abdominal pain 20019984 R10.9 Chronic low back pain 27 7655125 M54.50 Pain 56390183 R52 [id number] Derik Bingham MD Main - [facility] [address] [place] [phone] 0 10/16/2022 17:37:00 10/19/2022 09:55:32 Right upper quadrant pain 146573507 R10.11 [id number] Jareth David MD Main - [facility] [address] [place] [phone] 0 10/29/2022 17:40:14 10/30/2022 08:56:05 Generalized abdominal pain 855684121 R10.84 This 57-year-ol d female had a [...] PCP. The patient agreed with this plan. [id number] Amaury Kent MD Main - [facility] [address] [place] [phone] 0 10/31/2022 15:42:54 11/03/2022 13:02:01 Generalized abdominal pain 089196179 R10.84 Generalize d abdominal pain similar to prior episodes. Mild nausea and sxs of dehydratio n, poor fluid intake. Had normal BMP on prior visit. Tolerated IVF, Zofran, Toradol in the past. No red flag signs. Will reorder. [id number] Leander Rosa MD Main - [facility] [address] [place] [phone] 11/04/2022 14:24:04 11/06/2022 13:41:01 Abdominal pain 01274101 R10.9 [id number] Kylee Hill MD Main - [facility] [address] [place] [address] 0 11/15/2022 15:34:46 11/25/2022 10:16:27 Chronic interstitial cystitis 501178183 N30.10 case supervised and discussed with warehouse picker. Patient was given opportunit y to ask questions, warning signs/symp toms of pertinent medical emergency reviewed. long standing diagnosis c/b chronic pain. Recieves toradol occasional ly with good effect. No fevers/chi lls/hematu sofi. Will administer 30mg toradol [id number] Latosha Pressley MD Main - [facility] [address] [place] [phone] 11/23/2022 20:46:17 11/24/2022 10:07:44 Chronic interstitial cystitis 284867612 N30.10 [id number] Amaury Kent MD Main - [facility] [address] [place] [phone] 11/28/2022 16:57:59 11/28/2022 23:15:41 Chronic interstitial cystitis 892439061 N30.10 Has upcoming cystocscop y, amenable to 30mg IM Toradol now Pain 29874355 R52 [id number] Jareth David MD Main - [facility] [address] [place], [place] [phone] 12/13/2022 16:50:19 12/14/2022 10:41:58 Essential tremor 512391444 G25.0 This 57-year-ol d female with a history of ulcerative colitis and a resting tremor called [facility] because she thought she might be dehydrated . At the visit her hydration status looked good and her oral intake was adequate. She was advised to follow-up with her PCP. The patient agreed with this plan. [id number] Lula Camacho MD Main - [facility] [address] [place] [phone] 02/22/2023 18:33:03 02/23/2023 08:59:17 Abdominal pain 18140284 R10.9 Agree flare of interstiti al cystitis/p porsha has appointmen t to talk to her urologist in 48 hours/but not in person-adv ised since she has not had ketorolac in a while and her H & H are stable-we will give her a dose, however I advised she could develop a reaction to parenteral ketorolac similar to ibuprofen- she verbalized understand ing Hypokalemia 83570028 E87 .6 Unsure of etiology since the [...] and tomorrow - she verbalized she would [id number] Lula Camacho MD Main - [facility] [address] [place] [phone] 02/24/2023 11:00:53 02/24/2023 12:04:06 Hypokalemia 73704911 E87.6 Unsure of etiology since the patient denies nausea/ vomiting /diarrhea or excessive urine output/ now resolved with po K//lactate is slightly high but these new machines have been reading mildly high on everyone I have taken care of in the past week-doubt significan t given stable exam and vital signs and the fact that she is afebrile. [id number] Amaury Kent MD Main - [facility] [address] [place] [phone] 0 04/15/2023 15:37:09 04/16/2023 12:56:31 Abdominal pain 54017350 R10.9 Acute on chronic. Normal vital signs. No red flag signs or kidney problems. Will give Toradol 30mg IM x1. Discussed red flag signs for which to seek higher level of care. [id number] Sofiya Frye MD Main - [facility] [address] [place] [phone] 0 04/27/2023 21:55:53 04/28/2023 10:39:48 Chronic pain 55341145 G89.29 [id number] Corrie Pryor MD Main - [facility] [address] [place] [address] [phone] 0 05/01/2023 12:37:10 05/02/2023 15:48:01 Chronic interstitial cystitis 698593788 N30.10 Evaluation in the field was performed by my warehouse picker colleague, as noted above, I provided real-time [...] shortness of breath, cough, chest pain, fever. [id number] Nelly Pérez MD Main - [facility] [address] [place] [phone] 0 05/10/2023 15:45:31 05/10/2023 22:56:22 Abdominal pain 91357240 R10.9 58 year old female with a [...] assessment and plan as documented by the warehouse picker. I provided real-time medical direction for this encounter and was immediatel y available to provide additional phone-base d assistance as needed. We discussed the diagnostic uncertaint y of home visits and associated risks. We discussed the need to seek care urgently/e mergently in the setting of any new or worsening symptoms. [id number] Jareth David MD Main - [facility] [address] [place] [phone] 0 05/18/2023 14:57:58 05/19/2023 10:20:02 Irritable bowel syndrome 24869312 K58.9 This 58-year-ol d female with recurrent GI pain likely due to IBS called today because of pain since this AM. She doesn't tolerate oral pain medication s due to GERD, but she has responded to Toradol in the past. I ordered Toradol 30 mg IM. She will follow-up with her PCP. The patient agreed with this plan. [id number] Kellie Woods MD Main - [facility] [address] [place] [phone] 0 05/21/2023 12:59:15 05/24/2023 16:53:56 Urinary symptoms 200102783 R39.9 Abdominal pain 42591500 R10.9 [id number] NO MATHIS MD Main - [facility] [address] [place] [address] [phone] 0 06/06/2023 11:39:22 06/08/2023 10:04:30 Abdominal pain 76869976 R10.9 Evaluation in the field was performed by my warehouse picker colleague, as noted above, I provided real-time [...] abdominal pain Plan:Ketor olac 15 mg IM [id number] to call her GI doctor on Wednesday [...] concerns Latosha Pressley MD Main - [facility] [address] [place] [phone] 0 07/27/2023 17:32:53 07/27/2023 21:48:46 Chronic interstitial cystitis 158822299 N30.10 Sofiya Frye MD Main - [facility] [address] [place] [address] [phone] 0 07/30/2023 21:02:08 07/31/2023 12:36:08 Spasm of urinary bladder 465791991 N32.89 [id number] Duong Panchal MD Main - [facility] [address] [place] [address] [phone] 0 08/24/2023 20:24:52 08/25/2023 11:16:42 Ulcerative colitis 10015255 K51.90 Patient reports a history of ulcerative colitis followed by GI. She reports that she has abdominal pain consistent with her typical chronic abdominal pain. Denies any new complaints . Reports a recent colonoscop y. No hematochez ia or melena. Requesting ketorolac as that typically resolves her symptoms. Denies any other complaints or concerns. [id number] Nelly Pérez MD Main - [facility] [address] [place] [phone] 0 10/11/2023 19:12:01 10/11/2023 22:15:10 Chronic interstitial cystitis 324716882 N30.10 57 year old female, being evaluated for acute on chronic bladder pain. Per data gathered by warehouse picker, patient with chronic bladder pain without dysuria, [...] assessment and plan as documented by the warehouse picker. I provided real-time medical direction for this encounter and was immediatel y available to provide additional phone-base d assistance as needed. We discussed the diagnostic uncertaint y of home visits and associated risks. We discussed the need to seek care urgently/e mergently in the setting of any new or worsening symptoms. [id number] Tha Pierson MD Main - [facility] [address] [place] [phone] 0 01/23/2024 16:25:05 01/24/2024 10:37:03 Abdominal pain 43591655 R10.9 [id number] Nelly Pérez MD Main - [facility] [address] [place] [address] [phone] 0 04/18/2024 17:24:45 04/18/2024 22:03:45 Headache 53845311 R51.9 59 year old female being evaluated [...] assessment and plan as documented by the warehouse picker. I provided real-time medical direction for this [...] Babb Member ID Guarantor Name 11/04/2022 1 [facility] - DOS PRIOR TO 2022 - DUAL ELIGIBLE (MEDICARE REPLACEMENT/ADV ANTAGE - HMO) Randi Lowery [id number] Randi Lowery 04/18/2024 1 [facility] - DOS ON OR AFTER 2022 - DUAL ELIGIBLE - SKILLED NURSING OPTIONS AND ONE CARE (MEDICARE REPLACEMENT/ADV ANTAGE - HMO) Randi Lowery [id number] Randi Lowery Notes Date Note Type Note [...] ....................... ....................... ....................... ....................... ....................... ....................... ... Meeting Specialist Note From Gómez Kumar: Pt co abdominal pain. Has cystitis. Having surgery Wednesday. [facility] given [facility] with relief ..pt wanting toradol to hold her over for the weekend until surgery. Pt denies urinary symptoms, fever nausea vomiting diarrhea , cp sob, kidney problems. Baseline vitals assessed. [facility] contacted and 30mg toradol IM. Pt education on signs indicating the ER. Meeting Specialist Allergies: Acetaminophen, Ibuprofen ....................... ....................... ....................... ....................... ....................... ....................... ... Disposition: Fulfilled Sofiya Frye MD [address] [place] [address],[address], [place], [address] [employer] 07/30/2023 21:05:26 08/24/2023 text/html CRC Nurse Triage Notes (Dave Cerna): Patient Reports: Inability to tolerate foods, fluids or daily medications Denies: Vague abdominal pain greater than 24 hours Nausea with or without vomiting Chief Complaints: Weakness/Lethargy, Dehydration, Abdominal Pain PMH: COPD/Asthma Allergies: Acetaminophen, Ibuprofen Comments: Non Categorical Preschool Teacher verified the member's name//address and phone number. [...] ....................... ....................... ....................... ....................... ....................... ....................... ... Meeting Specialist Note From Spencer Reis: 58 yo F [...] but pt needs to follow up with fulfillment mail clerk to not just mask the pain but cure the main issue. 30mg given left deltoid. explained risks of intermediate school teacher use of Toradol/NSAIDs. discussed red flags with pt and friend. ....................... ....................... ....................... ....................... ....................... ....................... ... Disposition: Fulfilled Duong Panchal MD [address] [facility],[address], [place], [address], [place] [employer] - [employer] 08/24/2023 22:57:14 10/11/2023 text/html CRC Nurse Triage Notes (Mayra Jaime): Reason For Request: Pt reporting introsystalitis, pain, nausea (for a couple days), states bladder surgery for next week>is requesting toradol and zofran Chief Complaints: Nausea/Vomiting, Pain PMH: COPD/Asthma Allergies: Acetaminophen, Ibuprofen Comments: Non Categorical Preschool Teacher verified the member's name//address and phone number. [...] ....................... ....................... ....................... ....................... ....................... ....................... ... Meeting Specialist Note From Corey Moralez: Pt reporting acute [...] ... Disposition: Fulfilled Nelly Pérez MD [address] [facility],[address], [place], [address], [facility] [employer] 10/11/2023 21:24:08 01/23/2024 text/html [...] callback, VM left for mbr around 1415 -HHaim MoellerAfter multiple phone attempts, this RN got in contact with mbr around 1450. Non Categorical Preschool Teacher verified the member's name//address and phone number. Mbr reporting generalized abdominal discomfort as well as nausea on going for the last few hours. Mbr reports awaiting bladder surgery which is scheduled for next month. [facility] has been seen in the past by Oscar for similar and [facility] Toradol has worked well for her pain in the past. Education provided on the response time and the member was advised to monitor reported s/s and seek emergency treatment if needed -Abdullahi Moeller RN ....................... ....................... ....................... ....................... ....................... ....................... ... Meeting Specialist Note From Yennifer Celeste: Pt reports 2-3 days of nausea, vomiting with lower abd pain. A&ox3, vss, afebrile; c ramping in lower quadrants, mildly painful on palpation, denies cp, sob, back or flank pain, headache, dizziness, lightheadedness. [facility] consulted, 4mg zofran and 15mg toradol IM administered. Pt will follow up with pcp Wednesday. Red flags reviewed. Meeting Specialist Allergies: Acetaminophen, Ibuprofen ....................... ....................... ....................... ....................... ....................... ....................... ... Disposition: Fulfilled Tha Pierson MD [address] [place] [address],[address], [place], [address], [employer] 01/23/2024 18:50:39 04/18/2024 text/html CRC Nurse Triage [...] ....................... ....................... ....................... ....................... ....................... ....................... ... Meeting Specialist Note From Corey Moralez: This 59-year-old female [...] is soft, nontender, nondistended. No lower extremity edema.[facility] contacted and patient [...] ....................... ....................... ....................... ....................... ....................... ....................... ... [facility] Consulted: Nelly Pérez ....................... ....................... ....................... ....................... ....................... ....................... ... Disposition: Fulfilled Nelly Pérez MD [address] [facility],[address] [facility], [place], [address], [facility] - [employer] [facility] 04/18/2024 19:46:24 OBGyn Episode No OBEpisode recorded.
--- OUTSIDE RECORDS SUMMARY | 2025-06-10 13:21 | XMS_ITS | Encounter Summary ---
Author Organization [facility] Address [address] [facility] [address] [place] [id number] Phone Care Team Providers Care Hospice Manager Name Role Phone Unknown, Unknown Primary Care Provider Brett Whitaker MD Primary Care Provider [phone] Pcp, Unknown Primary Care Provider Unavailabl e Encounter Details Date Type Department Care Team (Late st Contact Info) Description 01/21/2023 Transcribe Orders [facility] Specimen Processing [address] [place] [address] Stewart Carlson MD [address] [facility], [address], [address] [place] [address] [email or web address] Anemia, unspecified type (Primary Dx) Social [...] VITAMIN B12 1,019 232 - 1,245 pg/mL [facility] 01/21/2023 5:50 AM EDT 01/21/2023 12:07 PM EDT us Stewart Carlson MD LAB BLOOD BKR ORDERABLES Final R esult Performing Organization Address [facility]/ZIP Co de Phone Number [address] [address] * (ABNORMAL) Iron and iron binding capacity (01/21/2023 5:50 AM EDT) IRON 67 30 - 160 ug/dL [facility] IRON BINDING CAPACITY 222(L) 228 - 428 ug/dL [facility] TRANSFERRIN SATURAT. 30 15 - 50 % [facility] 01/21/2023 5:50 AM EDT 01/21/2023 12:07 PM EDT us Stewart Carlson MD LAB BLOOD BKR ORDERABLES Final R esult Performing Organization Address [facility]/ZIP Co de Phone Number [address] [address] * Ferritin (01/21/2023 5:50 AM EDT) FERRITIN 56 13 - 150 ug/L [facility] 01/21/2023 5:50 AM EDT 01/21/2023 12:07 PM EDT us Stewart Carlson MD LAB BLOOD BKR ORDERABLES Final R esult Performing Organization Address City/[facility]/ZIP Co de Phone Number [address] [address] * (ABNORMAL) Folate (01/21/2023 5:50 AM EDT) FOLIC ACID 3.0(L) 4.2 - 19.9 ng/mL [facility] 01/21/2023 5:50 AM EDT 01/21/2023 12:07 PM EDT us Stewart Carlson MD LAB BLOOD BKR ORDERABLES Final R esult [address] [address] * (ABNORMAL) CBC (01/21/2023 5:50 AM EDT) WBC 6.33 4.00 - 11.00 K/uL [facility] RBC 2.92(L) 3.72 - 5.30 M/uL [facility] HGB 8.4(L) 11.4 - 15.9 g/dL [facility] HCT 27.7(L) 34.2 - 46.8 % [facility] PLT 228 140 - 430 K/uL [facility] MCV 94.9 78.0 - 97.0 fL [facility] MCH 28.8 25.0 - 33.0 pg [facility] MCHC 30.3(L) 32.0 - 36.0 g/dL [facility] RDW 16.9(H) 11.0 - 16.0 % [facility] MPV 11.5 8.4 - 12.8 fl [facility] 01/21/2023 5:50 AM EDT 01/21/2023 12:07 PM EDT us Stewart Carlson MD LAB BLOOD BKR ORDERABLES Final R esult [address] [address] documented in this encounter Visit Diagnoses Diagnosis Anemia, unspecified type- Primary documented in this encounter Care Teams Hospice Manager Relationship Specialty Start Date End Date Unknown, Unknown, MD PCP - General 01/21/23 01/27/23 Brett Su MD [address] [place] [id number] PCP - General Internal Medicine 01/28/23 01/28/23 Pcp, Unknown PCP - General 02/23/23 documented as of this encounter Additional Source Comments The information contained in this document represents components of the legal health record. It is not the complete legal health record.[facility]
[2025-06-10 14:04] LABS: Appearance Urine Clear; Glucose Urine UA Negative (Negative); PH 6.0 (5.0-9.0); Specific Gravity - Urine <= 1.005 (1.005-1.025)
[2025-06-10 14:13] LABS: Imm Gran Abs Auto 0.01 X10*3/uL (0.00-0.03); Imm Gran Pct Auto 0.2 % (0.0-0.4); MANUAL DIFF FLAG SCAN; NRBC Abs Auto 0.000 X10*3/uL (0.0-0.012); NRBC Pct Auto 0.0 /100WBC (0.0-0.2); PLT CLUMP 1; SCAN SMEAR FLAG 1
[2025-06-10 14:15] LABS: Hematocrit 44.2 % (37.0-47.0); Hemoglobin 14.8 g/dl (12.0-16.0); Lymphocytes Absolute Auto 2.2 X10*3/uL (1.2-4.9); Mean Corpuscular HGB Conc 33.5 g/dl (31.0-35.0); Mean Corpuscular Hemoglobin 29.8 pg (27.0-33.0); Mean Corpuscular Volume 88.9 fL (80.0-98.0); Red Blood Count 4.97 X10*6/uL (4.20-5.50)
[2025-06-10 14:22] LABS: White Blood Count 6.2 X10*3/uL (4.8-10.8)
[2025-06-10 14:23] LABS: Platelet Count 178 X10*3/uL (160-400)
[2025-06-10 15:01] LABS: Alanine Aminotransferase 19 U/L (0-31); Albumin Level 4.4 g/dL (3.5-5.0); Alkaline Phosphatase 139 U/L (39-117); Anion Gap 15 (12-20); Aspartate Amino Transferase 30 U/L (5-31); Blood Urea Nitrogen 19 mg/dL (9-16); Calcium 9.9 mg/dL (8.4-10.2); Carbon Dioxide 25 mmol/L (22-29); Chloride 104 mmol/L (96-108); Creatinine Clr Calc Pharmacy 63.3; Estimated Glomerular Filt Rate > 60; Potassium 4.7 mmol/L (3.3-5.1); Sodium 139 mmol/L (135-145); Total Protein 7.8 g/dL (6.5-8.0)
[2025-06-10 16:39] VITALS: BP 149/79; PULSE 86; RESP 16; O2SAT 98
[2025-06-10 16:40] VITALS: BP 149/79; PULSE 86; RESP 16; TEMP 36.6; O2SAT 98
== END 2025-06-10 16:41 | disposition home or self-care (01) ==
PROVIDERS: Physician Assistant; Emergency Provider Emergency Medicine; PCP Internal Medicine
DX: M54.16 Radiculopathy, lumbar region (principal); N30.10 Interstitial cystitis (chronic) without hematuria; G89.29 Other chronic pain; Z93.3 Colostomy status; Z87.19 Personal history of other diseases of the digestive system; Z86.79 Personal history of other diseases of the circulatory system; Z79.899 Other long term (current) drug therapy
CPT/HCPCS: 36415; 80053; 81003; 85025; 96374; 96376; 99283; 99284; J2270